=== PATIENT | male | born 1990 | race Caucasian/White ===

== ENCOUNTER 2021-05-11 06:59 | Emergency (ER) | payer MEDICAID, SELFPAY ==
[2021-05-11 07:13] VITALS: BP 157/86; PULSE 96; RESP 18; TEMP 36.6; O2SAT 100
[2021-05-11] MEDS: IBUPROFEN 400 MG TABLET 800 MG PO (07:43)
[2021-05-11] MEDS: TETANUS,DIPHTHERIA,AC PERTUSSIS ADULT 0.5 ML (ADACEL) IM (07:44)
[2021-05-11] MEDS: cefTRIAXone 1 GM VIAL IM (07:46)
[2021-05-11] MEDS: LIDOCAINE HCL 1% LOCAL INJ 20 ML VIAL (07:46)
--- NOTE | 2021-05-11 07:55 | ED.SKABFB ---
HPI - Skin/Abscess/Foreign Bdy General Chief complaint: Skin/Abscess/Foreign Body Stated complaint: right leg injury on calf Time Seen by Provider: 05/11/21 07:15 Source: patient, family and RN notes reviewed Mode of arrival: ambulatory Limitations: no limitations History of Present Illness complaint: insect bite/sting Onset (ago): week(s) (1) Tetanus up to date: unsure Location: RLE (upper paz draining firm red minimally swollen 2.8 cm diameter area. ) Severity: mild Severity scale (1-10): 2 Quality: aching and dull Pain Consistency: constant Relieving factors: none Exacerbating factors: none Context: none Associated symptoms: denies other symptoms Treatments prior to arrival: attempted to drain pus at home Related Data Allergies Allergy/AdvReac Type Severity Reaction Status Date / Time NKDA,NO LATEX Allergy Mild Unknown Uncoded 05/11/21 07:22 Review of Systems Review of Systems: All systems reviewed & are unremarkable except as noted in HPI and below Musculoskeletal: Comments: right paz painful, draining swelling PMFSH Past Medical History Medical History Cellulitis Exam Const: General: no acute distress and alert Nutritional Appearance: well nourished Orientation/consciousness: patient oriented x3 HENMT: Head: normal to inspection Ears: external ears normal and TM's normal bilaterally General nose exam: Normal external nose present and Normal nares present Face and sinus: normal facial exam Mouth: Yes lip normal and Yes moist mucous membranes Eyes: Conjunctivae: conjunctivae normal Pupils: Equal, round and reactive pupils present EOM: EOMs intact bilaterally Neck: Neck: normal visual inspection and no lymphadenopathy Chest: Chest palpation & inspection: normal inspection of the chest Resp: Effort & Inspection: normal respiratory effort Auscultation: clear to auscultation bilaterally Cardio: Rate: regular rate Rhythm: regular rhythm GI: GI Palp: Yes Soft to palpation and No Tenderness to palpation present (GI) Percussion: Yes normal to percussion Auscultation: normal bowel sounds : General: Yes no CVA tenderness Male General Exam: Yes normal external exam Back/Spine/Pelvis: Back: no CVA tenderness Skin: General skin exam: normal color Rashes: no rashes Neuro: General: patient oriented x3, moves all extremities, no meningeal signs, no focal motor deficits and CN's II-XI intact bilaterally Extrem: General: normal to inspection and no pedal edema (right paz: 2.8 cm diam firm reddish swelling with pus drainage ) Psych: Appearance: grossly normal and well kempt Mental Status: mental status grossly normal Thought content: Yes Normal thought content present Course Course Emergency Course: pt was stable in the ED with less right leg pain. the draining area was dressed. Pt for home. Reevaluation(s) Reevaluation #1: VSS. pt was less painful in the ED. Date: 05/11/21 Time: 08:15 Vital Signs Vital signs: Vital Signs Temperature 36.6 C 05/11/21 07:13 Pulse Rate 96 05/11/21 07:13 Respiratory Rate 18 05/11/21 07:13 Blood Pressure 157/86 H 05/11/21 07:13 Pulse Oximetry 100 05/11/21 07:13 Temperature 36.6 C 05/11/21 07:13 Pulse Rate 96 05/11/21 07:13 Respiratory Rate 18 05/11/21 07:13 Blood Pressure 157/86 H 05/11/21 07:13 Pulse Oximetry 100 05/11/21 07:13 MDM - Skin/Abscess/Foreign Bdy Differential Diagnosis Differential diagnosis: Likely abscess of skin or subcutaneous tissue, urticaria, cellulitis and insect bites Medical Records Attestation: I reviewed the patient's medical records. Critical Care Time Critical Care Time Critical Care Time: No Total Critical Care Time: 0 Discharge Plan Discharge Clinical Impression: Cellulitis Qualifiers: Site of cellulitis: extremity Site of cellulitis of extremity: lower extremity Laterality: right Qualified Code(s): L03.115 - Cellulitis of rig
--- NOTE | 2021-05-11 07:58 | PC.NURSE ---
Wound cleansed with hib-i-clens, and normal saline. Pt tolerated well. Adaptic dressing applied with 4x4 and gauze roll over it.
== END 2021-05-11 08:03 | disposition home or self-care (01) ==
PROVIDERS: Emergency Provider Emergency Medicine
DX: L03.115 Cellulitis of right lower limb (principal)
CPT/HCPCS: 90471; 90715; 96372; 99283; A9270; J0696

== ENCOUNTER 2021-11-14 06:28 | Emergency (ER) | payer OTHER, SELFPAY ==
--- NOTE | ~2021-11-14 | CT_ITS ---
EXAMINATION: CT abdomen pelvis w con DATE: 11/14/2021 09:13 INDICATION: Generalized abdominal pain, cramping. Constipation followed by diarrhea after taking 6 la xatives. TECHNIQUE: Computed tomography (CT) of the abdomen and pelvis was performed with 100 CC Omnipaque 350 intravenous contrast. Automated exposure control and iterative reconstruction technique were employe d. Exam dose: 361.91 mGy-cm total exam DLP. COMPARISON: 09/22/2015 left hip FINDINGS: The lung bases are clear. Normal heart size. No pericardial or pleural effusion. Approximately 6 mm hypoattenuating lesion of the right hepatic lobe lateral to the gallbladder is too small to definitively characterize 5.8 mm hypoattenuation of the anterior aspect of the medial segment of the left hepatic lobe is likew ise too small to definitively characterize, possibly a small cyst, hemangioma or focal fat infiltrati on. The liver is otherwise unremarkable. The gallbladder appears normal. No bile duct or pancreatic duct dilatation. No pancreatic mass lesion or calcification. Normal splenic size. Normal morphology of the adrenal glands. No renal mass lesion or urinary tract calculus or hydroureteronephrosis. Normal caliber of the abdominal aorta. There is portal adenopathy, aortocaval, pericaval and periaortic lymphadenopathy and bilateral common and external iliac pete chain lymphadenopathy and left inguinal adenopathy. Differential diagnosis includes metastatic disease and lymphoma. Normal appendix. No bowel obstruction, bowel wall thickening, pneumatosis or intraperitoneal free air . There is moderate diffuse thickening of the urinary bladder wall. There multiple areas of mixed sclerotic and lytic change, including the right iliac crest, posteromed ial right iliac bone, with minimal involvement of the left iliac crest and more prominent involvement of the left inferior pubic ramus. IMPRESSION: Extensive adenopathy including portal region and particularly the periaortic, aortocaval , pericaval and bilateral common and external iliac pete chains and left inguinal area; differential diagnosis includes metastatic disease and lymphoma; consider testicular cancer. Patchy scattered areas of mixed sclerotic and lytic change of the iliac bones and left inferior pubic ramus; metastatic disease is suggested. Consider radionuclide bone scan. On 11/14/[address] Blanco telephoned the CT findings to emergency room physician Dr. Alvarado . Reviewed, dictated and finalized at [facility]. Reviewed, dictated and finalized at location [facility]. IMPRESSION: Extensive adenopathy including portal region and particularly the periaortic, aortocaval, pericaval and bilateral common and external iliac pete chains and left inguinal area; differential diagnosis includes metastatic dise ase and lymphoma; consider testicular cancer. Patchy scattered areas of mixed sclerotic and lytic change of the iliac bones a nd left inferior pubic ramus; metastatic disease is suggested. Consider radionu clide bone scan. On 11/14/[address] Blanco telephoned the CT findings to emergency melanie physician Dr. Alvarado.
--- NOTE | ~2021-11-14 | XR_ITS ---
EXAMINATION: XR chest 1V portable DATE: 11/14/2021 09:00 INDICATION: Leukocytosis TECHNIQUE: frontal view of the chest was obtained. COMPARISON: Chest radiograph dated 02/23/2008 FINDINGS: The lungs remain clear with no focal airspace opacities, pulmonary edema, pleural effusion or pneumot horax. The cardiomediastinal silhouette is normal. Old healed posterior right sixth and seventh rib f ractures new since the prior study. IMPRESSION: 1. No acute cardiopulmonary disease. Reviewed, dictated and finalized at location [facility].
[2021-11-14 06:35] VITALS: BP 128/73; PULSE 88; RESP 18; TEMP 36.4; O2SAT 100
[2021-11-14] MEDS: PANTOPRAZOLE SODIUM IV 40 MG VIAL IV PUSH (08:11)
[2021-11-14] MEDS: ONDANSETRON INJ 4 MG/2 ML VIAL IV PUSH (08:11)
[2021-11-14 08:12] LABS: Hematocrit 31.8 % (40.0-54.0); Hemoglobin 9.8 g/dL (14.0-18.0); Mean Corpuscular HGB Conc 30.8 g/dL (32.0-36.0); Mean Corpuscular Hemoglobin 23.4 pg (27.0-31.0); Mean Corpuscular Volume 76.1 fL (78.0-102.0); Mean Platelet Volume 9.6 fl (8.7-11.0); Platelet Count Result 444 K/mm3 (150-420); Red Blood Count 4.18 M/mm3 (4.70-6.10)
[2021-11-14] MEDS: SODIUM CHLORIDE 0.9% IV 1,000 ML 999 ML IV CONT (08:12)
[2021-11-14 08:13] LABS: Add Urine Microscopic? YES; Appearance Urine Clear (Clear); Bilirubin Urine 1+ (Negative); Blood Urine Negative (Negative); Color Urine Dark Yellow (Yellow); Glucose Urine UA Negative (Negative); Ketones Urine 2+ (Negative); Leukocyte Esterase Ur Negative LEU/UL (Negative); Nitrate Urine Negative (Negative); Protein Urine 1+ (Negative); Specific Grav Ur 1.025 (1.010-1.020)
[2021-11-14 08:18] LABS: White Blood Count 22.6 K/mm3 (4.8-10.8)
[2021-11-14 08:23] LABS: Albumin Level 2.3 g/dL (3.4-5.0); Alkaline Phosphatase 189 U/L (46-116); Anion Gap 6 mmol/L (8-16); Aspartate Amino Transferase 16 U/L (15-37); Bilirubin,Total 0.6 mg/dL (0.00-1.00); Blood Urea Nitrogen 14 mg/dL (7-18); Calcium 8.5 mg/dL (8.5-10.1); Carbon Dioxide 29 mmol/L (21-32); Chloride 97 mmol/L (98-108); Estimated CRCL calculation 102 ml/min; Estimated Glomerular Filt Rate > 60; Glucose 89 mg/dL (70-99); Lipase 34 U/L (73-393); Osmolality Calculated 273 mOsm/kg (285-295); Sodium 132 mmol/L (136-145); Total Protein 8.1 g/dL (6.4-8.2)
[2021-11-14 08:25] LABS: Ethanol < 3 mg/dL (0-6); Lactic Acid Reflex 0.7 mmol/L (0.4-2.0)
[2021-11-14 08:31] LABS: Bacteria Urine Trace /hpf; Oval Fat Bodies Urine MOD /lpf; RBC Urine None seen /hpf (0-2); Squamous Epithelial Cell Urine Few /hpf (Few); WBC Urine None seen /hpf (0-3)
[2021-11-14 08:35] LABS: Amphetamine Screen Urine Positive (Negative); Barbiturate Screen Urine Negative (Negative); Benzodiazepines Screen Urine Negative (Negative); Cannabinoid Screen Urine Positive (Negative); Cocaine Screen Urine Negative (Negative); Methadone Screen Urine Negative (Negative); Opiate Screen Urine Positive (Negative); Phencyclidine Screen Urine Negative (Negative)
[2021-11-14 08:35] LABS: Alanine Aminotransferase 7 U/L (16-63)
[2021-11-14 08:53] LABS: Band Neutrophils Percent 2 % (0-6); Basophils Percent Manual 0 % (0-1); Eosinophils Absolute Manual 0.22 K/mm3 (0.02-0.5); Eosinophils Percent Manual 1 % (1-6); Lymphocytes Absolute Manual 0.67 K/mm3 (1.1-4.5); Lymphocytes Percent Manual 3 % (18-44); Monocytes Absolute Manual 1.58 K/mm3 (0.1-0.90); Monocytes Percent Manual 7 % (3-9); Neutrophils Absolute Manual 20.11 K/mm3 (1.3-6.7); Neutrophils Percent Manual 87 % (46-73); Total Cells Counted 100
[2021-11-14 08:54] LABS: Platelet Estimate Adequate (Adequate)
[2021-11-14] MEDS: KETOROLAC 30 MG/ML VIAL (*BKC) IM (08:59)
--- NOTE | 2021-11-14 12:22 | ED.ABDPAIN ---
HPI - Abdominal Pain General Chief Complaint: Abdominal Pain Stated Complaint: ABD PAIN Time Seen by Provider: 11/14/21 07:05 Source: patient and RN notes reviewed Mode of arrival: ambulatory Limitations: no limitations History of Present Illness MD elicited complaint: abdominal pain Onset (ago): hour(s) (6) Location: periumbilical Severity: mild Pain scale (0-10): 4 Migration to: no migration Exacerbating factors: nothing Relieving factors: nothing Associated symptoms: nausea and vomiting Related Data Allergies Allergy/AdvReac Type Severity Reaction Status Date / Time NKDA,NO LATEX Allergy Mild Unknown Uncoded 11/17/21 09:31 Review of Systems Review of Systems: All systems reviewed & are unremarkable except as noted in HPI and below PMFSH Past Medical History Medical History Abdominal pain ADHD Cellulitis Surgical History Surgical History H/O adenoidectomy H/O hernia repair Family History Family History Mother Non-Hodgkin lymphoma Depression Social History Social History Smoking status: Current every day smoker Tobacco type: cigarettes Alcohol intake: never Substance use: current Substance use type: marijuana, amphetamines and methamphetamine Living arrangements: with family Occupation/Education: unemployed Gender identity (if verbalized by the patient): Male Exam Const: General: healthy appearing and no acute distress Nutritional Appearance: well nourished Orientation/consciousness: patient oriented x3 Limitations: no limitations HENMT: Head: normal to inspection Ears: external ears normal, TM's normal bilaterally and EAC's normal General nose exam: Normal external nose present and Normal nares present Face and sinus: normal facial exam and sinuses nontender Mouth: Yes Normal oral and palatal mucosa present and Yes moist mucous membranes Teeth and gingiva: dentition normal Throat: posterior oropharynx normal Eyes: Conjunctivae: conjunctivae normal Pupils: Equal, round and reactive pupils present EOM: EOMs intact bilaterally Neck: Neck: normal visual inspection, no lymphadenopathy and no meningeal signs Chest: Chest palpation & inspection: normal inspection of the chest Resp: Effort & Inspection: normal respiratory effort Auscultation: clear to auscultation bilaterally Cardio: Rate: regular rate Rhythm: regular rhythm GI: GI Palp: Yes Soft to palpation and Yes Tenderness to palpation present (GI) (mild generalized abdominal tenderness) Auscultation: normal bowel sounds : General: Yes bladder normal to palpation and Yes no CVA tenderness Back/Spine/Pelvis: Back: no CVA tenderness Skin: General skin exam: normal color Rashes: no rashes Wounds: no wounds Neuro: General: patient oriented x3, moves all extremities, no meningeal signs, no focal motor deficits and CN's II-XI intact bilaterally Cranial nerves: Yes Equal, round and reactive pupils present and Yes Nystagmus not present Speech: normal speech Gait exam (Neuro): Normal gait present Extrem: General: normal to inspection and no pedal edema Psych: Mental Status: mental status grossly normal Affect: normal affect Attitude: cooperative Course Course Emergency Course: Pt was stable in the ED, less pain-ful. Reevaluation(s) Reevaluation #1: VSS Date: 11/14/21 Time: 08:03 Vital Signs Vital signs: Vital Signs Temperature 36.4 C L 11/14/21 06:35 Pulse Rate 88 11/14/21 06:35 Respiratory Rate 18 11/14/21 06:35 Blood Pressure 128/73 11/14/21 06:35 Pulse Oximetry 100 11/14/21 06:35 Oxygen Delivery Room Air 11/14/21 06:35 Temperature 36.4 C L 11/14/21 06:35 Pulse Rate 85 11/14/21 13:11 Respiratory Rate 18 11/14/21 13:11 Blood Pressure 133/74
[2021-11-14] MEDS: POTASSIUM CHLORIDE 20 MEQ TABLET 60 MEQ PO (13:08)
[2021-11-14 13:11] VITALS: BP 133/74; PULSE 85; RESP 18
== END 2021-11-14 13:11 | disposition home or self-care (01) ==
PROVIDERS: Emergency Medicine; Emergency Provider Emergency Medicine
DX: K52.9 Noninfective gastroenteritis and colitis, unspecified (principal); C79.9 Secondary malignant neoplasm of unspecified site
CPT/HCPCS: 36415; 71045; 74177; 80053; 80307; 81001; 83605; 83690; 85025; 87040; 87081; 87880; 96361; 96365; 96372; 96375; 99284; A9270; C9113; J0696; J1885; J2405; J7030; Q9967

== ENCOUNTER 2022-01-22 18:14 | Outpatient (CLI) | payer OTHER, SELFPAY ==
[2022-01-22 18:37] LABS: Basophils Absolute Auto 0.05 K/mm3 (0.00-0.10); Basophils Percent Auto 0.3 % (0.0-1.0); Eosinophils Absolute Auto 0.22 K/mm3 (0.02-0.50); Eosinophils Percent Auto 1.3 % (1.0-6.0); Hematocrit 35.2 % (40.0-54.0); Hemoglobin 10.8 g/dL (14.0-18.0); Immature Granulocyte Absolute 0.12 K/mm3 (0.00-0.00); Immature Granulocyte Percent A 0.7 % (0.0-0.0); Immature Platelet Fraction Pct 1.1 % (1.0-7.0); Lymphocytes Absolute Auto 0.78 K/mm3 (1.10-4.50); Lymphocytes Percent Auto 4.5 % (18.0-42.0); Mean Corpuscular HGB Conc 30.7 g/dL (32.0-36.0); Mean Corpuscular Hemoglobin 23.5 pg (27.0-31.0); Mean Corpuscular Volume 76.5 fL (78.0-102.0); Mean Platelet Volume 8.9 fl (8.7-11.0); Monocytes Absolute Auto 1.46 K/mm3 (0.10-0.90); Monocytes Percent Auto 8.5 % (2.0-11.0); Neutrophils Absolute Auto 14.6 K/mm3 (1.7-7.2); Neutrophils Percent Auto 84.7 % (50.0-70.0); Platelet Count Result 650 K/mm3 (150-420); Red Cell Distribution Width 15.9 % (11.6-14.4); White Blood Count 17.3 K/mm3 (4.8-10.8)
[2022-01-22 19:17] LABS: Alanine Aminotransferase 7 U/L (16-63); Albumin Level 2.5 g/dL (3.4-5.0); Alkaline Phosphatase 187 U/L (46-116); Anion Gap 10 mmol/L (8-16); Aspartate Amino Transferase 18 U/L (15-37); Bilirubin,Total 0.3 mg/dL (0.00-1.00); Blood Urea Nitrogen 15 mg/dL (7-18); Calcium 9.2 mg/dL (8.5-10.1); Carbon Dioxide 28 mmol/L (21-32); Chloride 97 mmol/L (98-108); Estimated Glomerular Filt Rate > 60; Glucose 113 mg/dL (70-99); Lactate Dehydrogenase 301 U/L (85-227); Osmolality Calculated 281 mOsm/kg (285-295); Potassium 4.1 mmol/L (3.5-5.1); Sodium 135 mmol/L (136-145); Total Protein 8.5 g/dL (6.4-8.2)
[2022-01-22 19:59] LABS: HIV 1 P24 AG Negative (Negative); HIV 1/2 AB Negative (Negative)
[2022-01-28 04:59] LABS: Hepatitis A Antibody IgM Nonreactive; Hepatitis B Core Antibody Nonreactive (Nonreactive); Hepatitis B Surface Antigen Nonreactive (Nonreactive); Hepatitis C Signal to Cutoff 0.05 ratio (<1.00); Hepatitis C Virus Antibody Nonreactive (Nonreactive)
[2022-01-28 17:13] LABS: EBV Nuclear Ab Antibody >600.00 U/mL (<18.00); EBV Nuclear Ab Interpretation Past; EBV Virus Capsid Ag IgM Ab <36.00 U/mL (<36.00)
== END 2022-01-22 18:15 | disposition home or self-care (01) ==
LOC: CHSLAB 18:16
PROVIDERS: PCP Internal Medicine Hematology & Oncology; Visit Provider Internal Medicine Hematology & Oncology
DX: R59.1 Generalized enlarged lymph nodes (principal)
CPT/HCPCS: 36415; 80053; 80074; 83615; 85025; 85055; 86664; 86665; 86703

== ENCOUNTER 2022-02-24 08:21 | Outpatient (CLI) | payer OTHER, SELFPAY ==
--- NOTE | ~2022-02-24 | CT_ITS ---
EXAMINATION: CT diagnostic chest w con DATE: 02/24/2022 08:41 INDICATION: Hodgkin's lymphoma TECHNIQUE: Transaxial computed tomographic images of the chest were obtained after the administration of 75 cc of Omnipaque 350 intravenous contrast. The dose-length product (DLP) was 151.14 mGy-cm. Ite rative reconstruction was used. COMPARISON: None FINDINGS: There are pathologically enlarged bilateral axillary, anterior mediastinal, subcarinal, and bilateral hilar lymph nodes. A group of matted lymph nodes in the anterior mediastinum measures 5.9 x 2.9 cm. There are minimal airspace opacities of the left upper lobe. No pleural effusion or pneumot horax. The heart size is normal. There is a moderate-sized pericardial effusion. Upper abdominal lymp hadenopathy is noted. The visualized osseous structures are unremarkable. IMPRESSION: 1. Thoracic and upper abdominal lymphadenopathy, consistent with lymphoma. 2. Airspace opacities of the left upper lobe, consistent with pneumonia. Reviewed, dictated and finalized at location D.
--- NOTE | 2022-03-04 12:57 | WPDPFTINT ---
PFT Procedure Performed PFT Procedure Performed Spirometry with Pre/Post Bronchodilator Plethysmography (Lung Vol) Diffusing Cap (DLCO) Flow Vol Loop PFT Interpretation DOS: 02/27/2022 REQUESTING: Dr Ashford REASON FOR TESTING: Hodgkin disease PULMONARY FUNCTION TESTS Results are reliable and reproducible. Spirometry: Pre bronchodilator FEV1 is 2.78 L, 77% predicted. Pre bronchodilator FVC is 4.21 L, 94% predicted. The FEV1/FVC ratio is 66%. The FYB40-53% is decreased 1.64 L, 41% predicted. After bronchodilator administration, there was a 13% increase in the FEV1, and the FEV1 is 3.15 L. This is a greater than 200 ml increase. The LMB69-68 increases by 50% which is significant. Lung volumes: Total lung capacity is 93% predicted, 5.66 L. Residual volume is 90% predicted, 1.48 L. RV/TLC is 26%, normal. FRC is 3.02 L, 94% predicted. Airway resistance elevated to 185% predicted. Diffusion: DLCO is 79% predicted, 21.6 mL/min/mmHg. DLCO/VA corrects to normal, 90% predicted, 4.48 mL/min/mmHg. Flow volume loop: Mild scooping of expiratory limb. IMPRESSION: This pulmonary function study shows a mild obstructive ventilatory impairment which is severe in the small airways with good response to bronchodilator. Normal lung volumes and normal diffusion. Increased airway resistance. In the proper clinical setting, this study might be compatible with asthma. There are no prior studies for comparison. Floresita Bingham MD
== END 2022-02-24 08:22 | disposition home or self-care (01) ==
LOC: CHSIMG 08:22
PROVIDERS: PCP Internal Medicine Hematology & Oncology; Visit Provider Internal Medicine Hematology & Oncology
DX: C81.90 Hodgkin lymphoma, unspecified, unspecified site (principal)
CPT/HCPCS: 71260; Q9967

== ENCOUNTER 2022-02-27 10:27 | Outpatient (CLI) | payer OTHER, SELFPAY ==
--- NOTE | 2022-03-04 13:02 | PFT_ITS ---
This report was recreated on March 19, 2022. Original report was signed by Dr. Floresita Bingham on 03/04/22 130. PFT Procedure Performed PFT Procedure Performed Spirometry with Pre/Post Bronchodilator Plethysmography (Lung Vol) Diffusing Cap (DLCO) Flow Vol Loop PFT Interpretation DOS: 02/27/2022 REQUESTING: Dr Ashford REASON FOR TESTING: Hodgkin disease PULMONARY FUNCTION TESTS Results are reliable and reproducible. Spirometry: Pre bronchodilator FEV1 is 2.78 L, 77% predicted. Pre bronchodilator FVC is 4.21 L, 94% predicted. The FEV1/FVC ratio is 66%. The XEG26-37% is decreased 1.64 L, 41% predicted. After bronchodilator administration, there was a 13% increase in the FEV1, and the FEV1 is 3.15 L. This is a greater than 200 ml increase. The YCR93-73 increases by 50% which is significant. Lung volumes: Total lung capacity is 93% predicted, 5.66 L. Residual volume is 90% predicted, 1.48 L. RV/TLC is 26%, normal. FRC is 3.02 L, 94% predicted. Airway resistance elevated to 185% predicted. Diffusion: DLCO is 79% predicted, 21.6 mL/min/mmHg. DLCO/VA corrects to normal, 90% predicted, 4.48 mL/min/mmHg. Flow volume loop: Mild scooping of expiratory limb. IMPRESSION: This pulmonary function study shows a mild obstructive ventilatory impairment which is severe in the small airways with good response to bronchodilator. Normal lung volumes and normal diffusion. Increased airway resistance. In the proper clinical setting, this study might be compatible with asthma. There are no prior studies for comparison. Floresita Bingham MD This dictation may have been done utilizing a voice recognition system. Attempts have been made to correct errors. However, there may be uncorrected grammatical, spelling, and recognition errors present. Report Initialized date/time: Floresita Bingham MD 03/04/22 / 1302 Electronically signed by: Floresita Bingham MD 03/04/22 3509 [facility]
== END 2022-02-27 10:28 | disposition home or self-care (01) ==
LOC: CHSCARD 10:28
PROVIDERS: Visit Provider Internal Medicine Hematology & Oncology
DX: C81.90 Hodgkin lymphoma, unspecified, unspecified site (principal)
CPT/HCPCS: 94060; 94726; 94729

== ENCOUNTER 2022-03-02 10:52 | Outpatient (CLI) | payer OTHER, SELFPAY ==
--- NOTE | ~2022-03-02 | NM_ITS ---
EXAMINATION: NM muga DATE: 03/02/2022 INDICATION: Monitoring while receiving chemotherapy. COMPARISON: Chest CT 02/24/2022 TECHNIQUE: Stannous pyrophosphate was administered IV. After a waiting period, 29.9 mCi Tc-99m pertec hnetate was administered IV to radiolabel the red blood cells. Gated images of the heart were obtaine d in the best septal view.] FINDINGS: There is no regional wall motion abnormality or paradoxical motion of the left ventricle. The left ventricular ejection fraction measures 68%. IMPRESSION: 1. Normal left ventricular ejection fraction measuring 68%. Reviewed, dictated and finalized at location [facility].
[2022-03-02 11:13] LABS: Basophils Absolute Auto 0.03 K/mm3 (0.00-0.10); Basophils Percent Auto 0.3 % (0.0-1.0); Eosinophils Absolute Auto 0.21 K/mm3 (0.02-0.50); Eosinophils Percent Auto 1.8 % (1.0-6.0); Hematocrit 33.2 % (40.0-54.0); Hemoglobin 9.8 g/dL (14.0-18.0); Immature Granulocyte Absolute 0.05 K/mm3 (0.00-0.00); Immature Granulocyte Percent A 0.4 % (0.0-0.0); Immature Platelet Fraction Pct 1.6 % (1.0-7.0); Mean Corpuscular HGB Conc 29.5 g/dL (32.0-36.0); Mean Corpuscular Hemoglobin 22.1 pg (27.0-31.0); Mean Corpuscular Volume 74.9 fL (78.0-102.0); Mean Platelet Volume 8.7 fl (8.7-11.0); Monocytes Absolute Auto 1.32 K/mm3 (0.10-0.90); Monocytes Percent Auto 11.1 % (2.0-11.0); Neutrophils Absolute Auto 9.7 K/mm3 (1.7-7.2); Neutrophils Percent Auto 81.4 % (50.0-70.0); Platelet Count Result 690 K/mm3 (150-420); Red Blood Count 4.43 M/mm3 (4.70-6.10); White Blood Count 11.9 K/mm3 (4.8-10.8)
[2022-03-02 11:30] LABS: Alanine Aminotransferase 7 U/L (16-63); Albumin Level 2.8 g/dL (3.4-5.0); Alkaline Phosphatase 209 U/L (46-116); Anion Gap 8 mmol/L (8-16); Aspartate Amino Transferase 19 U/L (15-37); Bilirubin,Total 0.4 mg/dL (0.00-1.00); Blood Urea Nitrogen 27 mg/dL (7-18); Calcium 9.2 mg/dL (8.5-10.1); Carbon Dioxide 30 mmol/L (21-32); Chloride 101 mmol/L (98-108); Estimated Glomerular Filt Rate > 60; Glucose 89 mg/dL (70-99); Lactate Dehydrogenase 271 U/L (85-227); Osmolality Calculated 292 mOsm/kg (285-295); Potassium 3.4 mmol/L (3.5-5.1); Sodium 139 mmol/L (136-145); Total Protein 8.7 g/dL (6.4-8.2)
[2022-03-02 12:52] LABS: HIV 1 P24 AG Negative (Negative); HIV 1/2 AB Negative (Negative)
[2022-03-05 11:28] LABS: Hepatitis A Antibody IgM Nonreactive; Hepatitis B Core Antibody Nonreactive (Nonreactive); Hepatitis B Surface Antigen Nonreactive (Nonreactive); Hepatitis C Signal to Cutoff 0.14 ratio (<1.00); Hepatitis C Virus Antibody Nonreactive (Nonreactive)
[2022-03-05 17:03] LABS: EBV Nuclear Ab Interpretation Past; EBV Virus Capsid Ag IgM Ab <36.00 U/mL (<36.00)
== END 2022-03-02 10:53 | disposition home or self-care (01) ==
LOC: CHSIMG 10:56
PROVIDERS: Visit Provider Internal Medicine Hematology & Oncology
DX: R59.1 Generalized enlarged lymph nodes (principal); Z51.81 Encounter for therapeutic drug level monitoring
CPT/HCPCS: 36415; 78472; 80053; 80074; 83615; 85025; 85055; 86664; 86665; 86703; A9560

== ENCOUNTER 2022-04-24 09:07 | Outpatient (CLI) | payer OTHER, SELFPAY ==
[2022-04-24 09:32] LABS: Basophils Absolute Auto 0.01 K/mm3 (0.00-0.10); Basophils Percent Auto 0.1 % (0.0-1.0); Eosinophils Absolute Auto 0.13 K/mm3 (0.02-0.50); Eosinophils Percent Auto 1.4 % (1.0-6.0); Hematocrit 28.1 % (40.0-54.0); Hemoglobin 8.2 g/dL (14.0-18.0); Immature Granulocyte Absolute 0.13 K/mm3 (0.00-0.00); Immature Granulocyte Percent A 1.4 % (0.0-0.0); Lymphocytes Absolute Auto 0.54 K/mm3 (1.10-4.50); Lymphocytes Percent Auto 5.6 % (18.0-42.0); Mean Corpuscular HGB Conc 29.2 g/dL (32.0-36.0); Mean Corpuscular Hemoglobin 21.8 pg (27.0-31.0); Mean Corpuscular Volume 74.7 fL (78.0-102.0); Mean Platelet Volume 8.6 fl (8.7-11.0); Monocytes Absolute Auto 0.87 K/mm3 (0.10-0.90); Monocytes Percent Auto 9.1 % (2.0-11.0); Neutrophils Absolute Auto 7.9 K/mm3 (1.7-7.2); Neutrophils Percent Auto 82.4 % (50.0-70.0); Platelet Count Result 355 K/mm3 (150-420); Red Blood Count 3.76 M/mm3 (4.70-6.10); Red Cell Distribution Width 22.6 % (11.6-14.4); White Blood Count 9.6 K/mm3 (4.8-10.8)
[2022-04-24 09:40] VITALS: BP 135/89; PULSE 110; RESP 14; TEMP 36.9; O2SAT 96
[2022-04-24] MEDS: SODIUM CHLORIDE 0.9% IV 500 ML 10 ML IVPB (09:40)
[2022-04-24 09:41] VITALS: BMI 25.9
[2022-04-24 09:44] LABS: Alanine Aminotransferase 37 U/L (16-63); Albumin Level 2.1 g/dL (3.4-5.0); Alkaline Phosphatase 217 U/L (46-116); Anion Gap 8 mmol/L (8-16); Aspartate Amino Transferase 14 U/L (15-37); Bilirubin,Total 0.3 mg/dL (0.00-1.00); Blood Urea Nitrogen 16 mg/dL (7-18); Calcium 9.2 mg/dL (8.5-10.1); Carbon Dioxide 31 mmol/L (21-32); Chloride 98 mmol/L (98-108); Estimated CRCL calculation 86 ml/min; Estimated Glomerular Filt Rate > 60; Glucose 120 mg/dL (70-99); Osmolality Calculated 286 mOsm/kg (285-295); Potassium 3.7 mmol/L (3.5-5.1); Sodium 137 mmol/L (136-145); Total Protein 7.5 g/dL (6.4-8.2)
[2022-04-24] MEDS: diphenhydrAMINE HCl INJ 50 MG/ML VIAL 25 MG IV PUSH (10:00)
[2022-04-24] MEDS: FAMOTIDINE 20 MG/2 ML VIAL IV PUSH (10:02)
[2022-04-24] MEDS: ACETAMINOPHEN 325 MG TABLET 650 MG PO (10:06)
[2022-04-24] MEDS: DOXOrubicin HCL 50 MG/25 ML VIAL 46 MG IV PUSH (10:40)
[2022-04-24 12:05] VITALS: BP 128/85; PULSE 108; RESP 14; TEMP 36.8; O2SAT 98
[2022-04-24] MEDS: PEGFILGRASTIM (ONPRO KIT) 6 MG/0.6 ML SYRINGE SUB-Q (13:30)
[2022-04-24 13:46] VITALS: BP 130/86; PULSE 100; RESP 14; TEMP 36.6; O2SAT 97
--- NOTE | 2022-04-24 13:47 | PC.NURSE ---
Patient here for Chemo cycle 1 day ABVD regime. Education given. All concerns answered. Labs drawn/reviewed/ok'd. IV chemo regimen administered. SEE MAR. Tolerated well. Neulasta Onpro applied and education given. Safe exit of hospital.
[2022-04-24] MEDS: HEPARIN SODIUM LOCK FLUSH 500 UNITS/5 ML SYRINGE IV PUSH (13:51)
== END 2022-04-24 09:08 | disposition home or self-care (01) ==
PROVIDERS: PCP Nurse Practitioner Family; Visit Provider Internal Medicine Hematology & Oncology
DX: Z51.11 Encounter for antineoplastic chemotherapy (principal); C81.90 Hodgkin lymphoma, unspecified, unspecified site
CPT/HCPCS: 36415; 80053; 85025; 96365; 96367; 96372; 96375; 96409; 96411; 96413; 96417; A9270; J1100; J1200; J2405; J2506; J7040; J7060; J9000; J9040; J9130; J9360

== ENCOUNTER 2022-05-13 09:41 | Outpatient (CLI) | payer OTHER, SELFPAY ==
[2022-05-13 10:00] VITALS: BMI 26.2
[2022-05-13 10:00] LABS: Hematocrit 31.9 % (40.0-54.0); Hemoglobin 9.2 g/dL (14.0-18.0); Mean Corpuscular HGB Conc 28.8 g/dL (32.0-36.0); Mean Corpuscular Hemoglobin 22.6 pg (27.0-31.0); Mean Corpuscular Volume 78.4 fL (78.0-102.0); Mean Platelet Volume 8.5 fl (8.7-11.0); Platelet Count Result 389 K/mm3 (150-420); Red Blood Count 4.07 M/mm3 (4.70-6.10); Red Cell Distribution Width 22.9 % (11.6-14.4); White Blood Count 3.4 K/mm3 (4.8-10.8)
[2022-05-13 10:04] VITALS: BP 121/72; PULSE 64; RESP 14; TEMP 36.4; O2SAT 99
[2022-05-13 10:12] LABS: Alanine Aminotransferase 15 U/L (16-63); Albumin Level 3.1 g/dL (3.4-5.0); Alkaline Phosphatase 152 U/L (46-116); Anion Gap 6 mmol/L (8-16); Aspartate Amino Transferase 17 U/L (15-37); Bilirubin,Total 0.3 mg/dL (0.00-1.00); Blood Urea Nitrogen 9 mg/dL (7-18); Calcium 8.6 mg/dL (8.5-10.1); Carbon Dioxide 30 mmol/L (21-32); Chloride 104 mmol/L (98-108); Estimated CRCL calculation 92 ml/min; Estimated Glomerular Filt Rate > 60; Glucose 80 mg/dL (70-99); Osmolality Calculated 287 mOsm/kg (285-295); Potassium 4.2 mmol/L (3.5-5.1); Sodium 140 mmol/L (136-145); Total Protein 7.4 g/dL (6.4-8.2)
[2022-05-13 10:13] LABS: Band Neutrophils Percent 1 % (0-6); Eosinophils Absolute Manual 0.37 K/mm3 (0.02-0.5); Eosinophils Percent Manual 11 % (1-6); Lymphocytes Absolute Manual 0.51 K/mm3 (1.1-4.5); Lymphocytes Percent Manual 15 % (18-44); Monocytes Absolute Manual 0.91 K/mm3 (0.1-0.90); Monocytes Percent Manual 27 % (3-9); Neutrophils Absolute Manual 1.59 K/mm3 (1.3-6.7); Neutrophils Percent Manual 46 % (46-73); Platelet Estimate Adequate (Adequate); Total Cells Counted 100
[2022-05-13] MEDS: SODIUM CHLORIDE 0.9% IV 500 ML 10 ML IVPB (10:20)
[2022-05-13] MEDS: diphenhydrAMINE HCl INJ 50 MG/ML VIAL 25 MG IV PUSH (10:25)
[2022-05-13] MEDS: ACETAMINOPHEN 325 MG TABLET 650 MG PO (10:34)
[2022-05-13] MEDS: FAMOTIDINE 20 MG/2 ML VIAL IV PUSH (10:35)
[2022-05-13] MEDS: DOXOrubicin HCL 50 MG/25 ML VIAL 46 MG IV PUSH (11:10)
[2022-05-13] MEDS: PEGFILGRASTIM (ONPRO KIT) 6 MG/0.6 ML SYRINGE SUB-Q (13:29)
[2022-05-13] MEDS: HEPARIN SODIUM LOCK FLUSH 500 UNITS/5 ML SYRINGE IV PUSH (13:29)
[2022-05-13 13:31] VITALS: BP 117/64; PULSE 68; RESP 14; TEMP 36.6; O2SAT 99
--- NOTE | 2022-05-13 13:35 | PC.NURSE ---
Patient here for cycle 1 day 15 of ABVD chemo regimen. Education given. All concerns answered/ Reports did OK with cycle 1 day 1. Labs drawn,reviewed, and ok'd. Day 15 ABVD chemo regimen administered. SEE MAR. Tolerated well. Patient left safely with Neulasta Onpro on arm-understanding on usage and removal of. Will return 2021 at 1000 for cycle 2 day 1 of ABVD Chemo regimen.
== END 2022-05-13 09:42 | disposition home or self-care (01) ==
LOC: CHSTREATRM 09:42
PROVIDERS: PCP Nurse Practitioner Family; Visit Provider Internal Medicine Hematology & Oncology
DX: Z51.11 Encounter for antineoplastic chemotherapy (principal); C81.90 Hodgkin lymphoma, unspecified, unspecified site
CPT/HCPCS: 36415; 80053; 85025; 96367; 96372; 96375; 96411; 96413; 96417; A9270; J1100; J1200; J2405; J2506; J7040; J7060; J9000; J9040; J9130; J9360

== ENCOUNTER 2022-06-12 09:45 | Outpatient (CLI) | payer OTHER, SELFPAY ==
[2022-06-12 10:12] VITALS: BMI 25.6
[2022-06-12 10:13] VITALS: BP 130/71; PULSE 96; RESP 14; TEMP 36.6; O2SAT 97
[2022-06-12 10:13] LABS: Basophils Absolute Auto 0.02 K/mm3 (0.00-0.10); Basophils Percent Auto 0.2 % (0.0-1.0); Eosinophils Absolute Auto 0.07 K/mm3 (0.02-0.50); Eosinophils Percent Auto 0.8 % (1.0-6.0); Hematocrit 31.6 % (40.0-54.0); Hemoglobin 9.8 g/dL (14.0-18.0); Immature Granulocyte Absolute 0.04 K/mm3 (0.00-0.00); Immature Granulocyte Percent A 0.5 % (0.0-0.0); Lymphocytes Absolute Auto 0.62 K/mm3 (1.10-4.50); Lymphocytes Percent Auto 7.5 % (18.0-42.0); Mean Corpuscular Hemoglobin 23.4 pg (27.0-31.0); Mean Corpuscular Volume 75.4 fL (78.0-102.0); Mean Platelet Volume 8.2 fl (8.7-11.0); Monocytes Absolute Auto 0.92 K/mm3 (0.10-0.90); Monocytes Percent Auto 11.1 % (2.0-11.0); Neutrophils Absolute Auto 6.6 K/mm3 (1.7-7.2); Neutrophils Percent Auto 79.9 % (50.0-70.0); Platelet Count Result 430 K/mm3 (150-420); Red Blood Count 4.19 M/mm3 (4.70-6.10); Red Cell Distribution Width 17.5 % (11.6-14.4); White Blood Count 8.3 K/mm3 (4.8-10.8)
[2022-06-12] MEDS: SODIUM CHLORIDE 0.9% IV 500 ML 10 ML IVPB (10:30)
[2022-06-12 10:33] LABS: Alanine Aminotransferase 10 U/L (16-63); Albumin Level 2.7 g/dL (3.4-5.0); Alkaline Phosphatase 137 U/L (46-116); Anion Gap 9 mmol/L (8-16); Aspartate Amino Transferase 10 U/L (15-37); Bilirubin,Total 0.2 mg/dL (0.00-1.00); Blood Urea Nitrogen 13 mg/dL (7-18); Calcium 8.9 mg/dL (8.5-10.1); Carbon Dioxide 29 mmol/L (21-32); Chloride 102 mmol/L (98-108); Estimated CRCL calculation 92 ml/min; Estimated Glomerular Filt Rate > 60; Glucose 109 mg/dL (70-99); Osmolality Calculated 291 mOsm/kg (285-295); Potassium 3.7 mmol/L (3.5-5.1); Sodium 140 mmol/L (136-145)
[2022-06-12] MEDS: diphenhydrAMINE HCl INJ 50 MG/ML VIAL 25 MG IV PUSH (10:34)
[2022-06-12] MEDS: FAMOTIDINE 20 MG/2 ML VIAL IV PUSH (10:35)
[2022-06-12] MEDS: ACETAMINOPHEN 325 MG TABLET 650 MG (10:50)
[2022-06-12] MEDS: DOXOrubicin HCL 50 MG/25 ML VIAL 46 MG IV PUSH (11:05)
[2022-06-12 13:25] VITALS: BP 120/73; PULSE 89; RESP 14; TEMP 36.8; O2SAT 97
[2022-06-12] MEDS: HEPARIN SODIUM LOCK FLUSH 500 UNITS/5 ML SYRINGE IV PUSH (13:27)
[2022-06-12] MEDS: PEGFILGRASTIM (ONPRO KIT) 6 MG/0.6 ML SYRINGE SUB-Q (13:27)
--- NOTE | 2022-06-12 13:41 | PC.NURSE ---
Patient here Chemo regimen cycle 2 day 1. Education given. NO weight loss. Reports I'm doing good. . Labs drawn/reviewed/ok'd. IV Chemo regimen administered. See MAR. Tolerated well. Safe exit of hospital with girlfriend. Will return 2021 at 1000.
== END 2022-06-12 09:46 | disposition home or self-care (01) ==
LOC: CHSTREATRM 09:49
PROVIDERS: PCP Family Medicine; Visit Provider Internal Medicine Hematology & Oncology
DX: Z51.11 Encounter for antineoplastic chemotherapy (principal); C81.90 Hodgkin lymphoma, unspecified, unspecified site
CPT/HCPCS: 36415; 80053; 85025; 96367; 96372; 96375; 96411; 96413; 96417; A9270; J1100; J1200; J2405; J2506; J7040; J7060; J9000; J9040; J9130; J9360

== ENCOUNTER 2022-07-03 09:17 | Outpatient (CLI) | payer OTHER, SELFPAY ==
[2022-07-03 09:36] VITALS: BMI 25.6
[2022-07-03 09:36] LABS: Basophils Absolute Auto 0.02 K/mm3 (0.00-0.10); Basophils Percent Auto 0.3 % (0.0-1.0); Eosinophils Percent Auto 1.3 % (1.0-6.0); Hematocrit 32.3 % (40.0-54.0); Hemoglobin 9.9 g/dL (14.0-18.0); Immature Granulocyte Absolute 0.07 K/mm3 (0.00-0.00); Immature Granulocyte Percent A 0.9 % (0.0-0.0); Lymphocytes Absolute Auto 0.48 K/mm3 (1.10-4.50); Lymphocytes Percent Auto 6.1 % (18.0-42.0); Mean Corpuscular HGB Conc 30.7 g/dL (32.0-36.0); Mean Corpuscular Hemoglobin 23.7 pg (27.0-31.0); Mean Corpuscular Volume 77.3 fL (78.0-102.0); Mean Platelet Volume 8.1 fl (8.7-11.0); Monocytes Absolute Auto 1.07 K/mm3 (0.10-0.90); Monocytes Percent Auto 13.7 % (2.0-11.0); Neutrophils Absolute Auto 6.1 K/mm3 (1.7-7.2); Neutrophils Percent Auto 77.7 % (50.0-70.0); Platelet Count Result 386 K/mm3 (150-420); Red Blood Count 4.18 M/mm3 (4.70-6.10); Red Cell Distribution Width 16.2 % (11.6-14.4); White Blood Count 7.8 K/mm3 (4.8-10.8)
[2022-07-03 09:37] VITALS: BP 149/73; PULSE 92; RESP 16; TEMP 36.6; O2SAT 99
[2022-07-03 09:50] LABS: Alanine Aminotransferase 14 U/L (16-63); Albumin Level 2.7 g/dL (3.4-5.0); Alkaline Phosphatase 149 U/L (46-116); Anion Gap 6 mmol/L (8-16); Aspartate Amino Transferase 11 U/L (15-37); Bilirubin,Total 0.3 mg/dL (0.00-1.00); Blood Urea Nitrogen 17 mg/dL (7-18); Calcium 8.9 mg/dL (8.5-10.1); Carbon Dioxide 32 mmol/L (21-32); Chloride 101 mmol/L (98-108); Estimated CRCL calculation 82 ml/min; Estimated Glomerular Filt Rate > 60; Glucose 112 mg/dL (70-99); Osmolality Calculated 290 mOsm/kg (285-295); Sodium 139 mmol/L (136-145); Total Protein 7.8 g/dL (6.4-8.2)
[2022-07-03] MEDS: SODIUM CHLORIDE 0.9% IV 500 ML 10 ML IVPB (10:00)
[2022-07-03] MEDS: diphenhydrAMINE HCl INJ 50 MG/ML VIAL 25 MG IV PUSH (10:05)
[2022-07-03] MEDS: FAMOTIDINE 20 MG/2 ML VIAL IV PUSH (10:08)
[2022-07-03] MEDS: ACETAMINOPHEN 325 MG TABLET 650 MG PO (10:12)
[2022-07-03] MEDS: DOXOrubicin HCL 50 MG/25 ML VIAL 46 MG IV PUSH (10:39)
[2022-07-03] MEDS: HEPARIN SODIUM LOCK FLUSH 500 UNITS/5 ML SYRINGE IV PUSH (12:40)
[2022-07-03] MEDS: PEGFILGRASTIM (ONPRO KIT) 6 MG/0.6 ML SYRINGE SUB-Q (12:41)
--- NOTE | 2022-07-03 12:49 | PC.NURSE ---
Patient here for cycle 2 day 15 chemo regimen. Education given. All concerns answered. Labs were drawn and reviewed/ok'd. IV Chemo regimen administered. SEE MAR. Tolerated well. Will have scans at [facility] Jul 08, 2022. Dr. Ashford then will decide next plan of treatment. Safe exit of hospital ambulated with girlfriend and dtr.
[2022-07-03 12:52] VITALS: BP 126/74; PULSE 88; RESP 14; TEMP 36.6; O2SAT 98
== END 2022-07-03 09:18 | disposition home or self-care (01) ==
LOC: CHSTREATRM 09:18
PROVIDERS: PCP Family Medicine; Visit Provider Internal Medicine Hematology & Oncology
DX: Z51.11 Encounter for antineoplastic chemotherapy (principal); C81.90 Hodgkin lymphoma, unspecified, unspecified site
CPT/HCPCS: 36415; 80053; 85025; 96367; 96372; 96375; 96411; 96413; 96417; A9270; J1100; J1200; J2405; J2506; J7040; J7060; J9000; J9040; J9130; J9360

== ENCOUNTER 2022-07-11 14:15 | Emergency (ER) | payer OTHER, SELFPAY ==
--- NOTE | ~2022-07-11 | CT_ITS ---
EXAMINATION: CT abdomen pelvis w con DATE: 07/11/2022 16:18 INDICATION: LLQ RLQ abd pain TECHNIQUE: Computed tomography (CT) of the abdomen and pelvis was performed with 100 mL Omnipaque-350 intravenous contrast. Automated exposure control and iterative reconstruction technique were employe d. The dose-length product was 333.31 mGy-cm. COMPARISON: 11/14/2021, CT chest 02/24/2022. FINDINGS: Lower thorax: Small pericardial effusion. Liver: Mildly enlarged. Biliary/Gallbladder: Gallbladder is collapsed. No bile duct dilation. Pancreas: No mass or duct dilation. Spleen: Mildly enlarged. Adrenals:No mass. Kidneys: No mass, stone, or hydronephrosis. GI tract: No small or large bowel dilation. Normal appendix. Mesentery/Peritoneum: No ascites, mass, or free air. Retroperitoneum: Periaortic and pericaval, bilateral pelvic, and bilateral inguinal lymphadenopathy, overall decreased size of the lymph nodes since the prior study. Retroperitoneal inflammatory change and fluid. Pelvis: Pelvic organs are within normal limits. Soft Tissues: Soft tissues and body wall unremarkable. Bones: New permeative change in the L4 vertebral body, with moderate height loss in a somewhat split type fracture pattern, with 2 mm retropulsion of bone fragments. Innumerable new lytic bone lesions in the pelvis, proximal bilateral femurs, and spine. IMPRESSION: 1. Pathologic burst fracture of L4, with minimal, 2 mm retropulsion of bone fragments. 3. Worsening lytic disease in the spine and pelvis and bilateral proximal femurs. 4. Persistent but improved appearing periaortic, pelvic and inguinal lymphadenopathy. 5. Hepatosplenomegaly. Reviewed, dictated and finalized at location [facility]. OFF DRIVER IMPRESSION: 1. Pathologic burst fracture of L4, with minimal, 2 mm retropulsion of bone fra gments. 3. Worsening lytic disease in the spine and pelvis and bilateral proximal femur s. 4. Persistent but improved appearing periaortic, pelvic and inguinal lymphadeno justino. 5. Hepatosplenomegaly.
--- NOTE | 2022-07-11 14:16 | ED.ABDPAIN ---
HPI - Abdominal Pain General Chief Complaint: Abdominal Pain Stated Complaint: ambulance Time Seen by Provider: 07/11/22 14:16 Source: patient, EMS and RN notes reviewed Mode of arrival: EMS Limitations: no limitations History of Present Illness MD elicited complaint: abdominal pain Onset (ago): week(s) ( One week ago worse today) Pain Consistency: constant Location: pelvis Severity: severe Related Data Allergies Allergy/AdvReac Type Severity Reaction Status Date / Time NKDA,NO LATEX Allergy Mild Unknown Uncoded 07/11/22 14:24 [facility] Past Medical History Medical History (Updated 07/11/22 @ 17:24 by Dennis Hoyos MD) Abdominal pain ADHD Anxiety Cellulitis Widespread metastatic malignant neoplastic disease Surgical History Surgical History H/O adenoidectomy H/O hernia repair Family History Family History Mother Non-Hodgkin lymphoma Depression Social History Social History Smoking status: Current every day smoker Tobacco type: cigarettes Alcohol intake: never Substance use: current Substance use type: marijuana, amphetamines and methamphetamine Lack of Transportation: YES Lack of Food: Sometimes True Current Housing: I Have Housing Concerned About Future Housing: No Difficulty Paying Gas/Electric Bills: YES Difficulty Paying for Meds: YES Currently Unemployed: YES Education: High School Diploma/GED Difficulty w/ Childcare or Family Care: YES Gender identity (if verbalized by the patient): Male Course Vital Signs Vital signs: Vital Signs Temperature 36.9 C 07/11/22 14:21 Pulse Rate 92 07/11/22 14:21 Respiratory Rate 20 07/11/22 14:21 Blood Pressure 145/84 H 07/11/22 14:21 Pulse Oximetry 100 07/11/22 14:21 Oxygen Delivery Room Air 07/11/22 14:21 Temperature 36.9 C 07/11/22 17:26 Pulse Rate 80 07/11/22 17:26 Respiratory Rate 20 07/11/22 17:26 Blood Pressure 98/62 L 07/11/22 17:26 Pulse Oximetry 98 07/11/22 17:26 Oxygen Delivery Room Air 07/11/22 17:26 MDM - Abdominal Pain Differential Diagnosis Differential diagnosis: Likely abdominal pain, acute appendicitis, calculus of kidney, constipation and small bowel obstruction Lab Data Attestation: I reviewed the patient's lab results. 07/11/22 15:06 07/11/22 15:06 Labs: Lab Results 07/11/22 07/11/22 07/11/22 Range/Units 15:06 15:06 15:06 WBC 8.0 (4.8-10.8) K/mm3 RBC 3.79 L (4.70-6.10) M/mm3 Hgb 9.0 L (14.0-18.0) g/dL Hct 28.7 L (40.0-54.0) % MCV 75.7 L (78.0-102.0) fL MCH 23.7 L (27.0-31.0) pg MCHC 31.4 L (32.0-36.0) g/dL RDW 15.0 H (11.6-14.4) % Plt Count 434 H (150-420) K/mm3 MPV 9.2 (8.7-11.0) fl Immature Gran % (Auto) 1.0 H (0.0-0.0) % Neut % (Auto) 83.4 H (50.0-70.0) % Lymph % (Auto) 3.9 L (18.0-42.0) % Kingfisher % (Auto) 10.8 (2.0-11.0) % Eos % (Auto) 0.8 L (1.0-6.0) % Baso % (Auto) 0.1 (0.0-1.0) % Lymph # (Auto) 0.31 L (1.10-4.50) K/mm3 Kingfisher # (Auto) 0.86 (0.10-0.90) K/mm3 Eos # (Auto) 0.06 (0.02-0.50) K/mm3 Baso # (Auto) 0.01 (0.00-0.10) K/mm3 Abs Immat Gran (auto) 0.08 H (0.00-0.00) K/mm3 Absolute Neuts (auto) 6.7 (1.7-7.2) K/mm3 Absolute Nucleated RBC 0.00 (0.00-0.00) K/mm3 Nucleated RBC % 0.0 (0-0.0) % Sodium 133 L (136-145) mmol/L Potassium 3.5 (3.5-5.1) mmol/L Chloride 92 L (98-108) mmol/L Carbon Dioxide 36 H (21-32) mmol/L Anion Gap 5 L (8-16) mmol/L BUN 13 (7-18) mg/dL Creatinine 0.79 (0.70-1.30) mg/dL Estim Creat Clear Calc Not Reportable Estimated GFR > 60 (59 - ) Glucose 81 (70-99) mg/dL Calculated Osmolality 275 L (285-295) mOsm/kg Lactic Acid (0.4-2.0) mmol/L Calcium 8.8 (8.5-10.1) mg/d
[2022-07-11 14:21] VITALS: BP 145/84; PULSE 92; RESP 20; TEMP 36.9; O2SAT 100
[2022-07-11] MEDS: HYDROmorphone HCL INJ (*CRX) 2 MG/ML VIAL 1 MG IV PUSH (15:02)
[2022-07-11 15:12] LABS: Basophils Absolute Auto 0.01 K/mm3 (0.00-0.10); Basophils Percent Auto 0.1 % (0.0-1.0); Eosinophils Absolute Auto 0.06 K/mm3 (0.02-0.50); Eosinophils Percent Auto 0.8 % (1.0-6.0); Hematocrit 28.7 % (40.0-54.0); Immature Granulocyte Absolute 0.08 K/mm3 (0.00-0.00); Lymphocytes Absolute Auto 0.31 K/mm3 (1.10-4.50); Lymphocytes Percent Auto 3.9 % (18.0-42.0); Mean Corpuscular HGB Conc 31.4 g/dL (32.0-36.0); Mean Corpuscular Hemoglobin 23.7 pg (27.0-31.0); Mean Corpuscular Volume 75.7 fL (78.0-102.0); Mean Platelet Volume 9.2 fl (8.7-11.0); Monocytes Absolute Auto 0.86 K/mm3 (0.10-0.90); Monocytes Percent Auto 10.8 % (2.0-11.0); Neutrophils Absolute Auto 6.7 K/mm3 (1.7-7.2); Neutrophils Percent Auto 83.4 % (50.0-70.0); Platelet Count Result 434 K/mm3 (150-420); Red Blood Count 3.79 M/mm3 (4.70-6.10)
[2022-07-11 15:18] LABS: Appearance Urine Clear (Clear); Bilirubin Urine 1+ (Negative); Blood Urine Negative (Negative); Glucose Urine UA Negative (Negative); Ketones Urine Negative (Negative); Leukocyte Esterase Ur Negative LEU/UL (Negative); Nitrate Urine Negative (Negative); Protein Urine 1+ (Negative); Specific Grav Ur >= 1.030 (1.010-1.020); Urobilinogen Urine >=8.0 mg/dL (0.2-1.0)
[2022-07-11 15:24] LABS: Amphetamine Screen Urine Positive (Negative); Barbiturate Screen Urine Negative (Negative); Benzodiazepines Screen Urine Negative (Negative); Cannabinoid Screen Urine Positive (Negative); Cocaine Screen Urine Negative (Negative); Methadone Screen Urine Negative (Negative); Opiate Screen Urine Positive (Negative); Phencyclidine Screen Urine Negative (Negative)
[2022-07-11 15:27] LABS: Add Urine Microscopic? YES; Color Urine Dark Yellow (Yellow); Mucus Urine Few /lpf
[2022-07-11 15:32] LABS: Lactic Acid Reflex 0.5 mmol/L (0.4-2.0)
[2022-07-11 15:35] LABS: Alanine Aminotransferase 13 U/L (16-63); Albumin Level 2.4 g/dL (3.4-5.0); Alkaline Phosphatase 162 U/L (46-116); Anion Gap 5 mmol/L (8-16); Aspartate Amino Transferase 10 U/L (15-37); Bilirubin,Total 0.3 mg/dL (0.00-1.00); Blood Urea Nitrogen 13 mg/dL (7-18); Calcium 8.8 mg/dL (8.5-10.1); Carbon Dioxide 36 mmol/L (21-32); Chloride 92 mmol/L (98-108); Estimated Glomerular Filt Rate > 60; Glucose 81 mg/dL (70-99); Lipase 17 U/L (16-77); Osmolality Calculated 275 mOsm/kg (285-295); Potassium 3.5 mmol/L (3.5-5.1); Sodium 133 mmol/L (136-145); Total Protein 7.6 g/dL (6.4-8.2)
[2022-07-11 15:38] LABS: CRP 22.4 mg/dL (0.0-0.9)
[2022-07-11 17:26] VITALS: BP 98/62; PULSE 80; RESP 20; TEMP 36.9; O2SAT 98
--- NOTE | 2022-08-26 14:05 | ED.GENADULT ---
HPI - General Adult General Chief complaint: Abdominal Pain Stated complaint: ambulance Time Seen by Provider: 07/11/22 14:16 Source: patient, EMS and RN notes reviewed Mode of arrival: EMS Limitations: no limitations History of Present Illness HPI narrative: This is a 32-year-old male with metastatic Hodgkin's lymphoma, brought to the emergency department by EMS, complaining of bilateral hand and finger pain that has since resolved. The patient states that this morning, he woke and noted moderate to severe bilateral hand pain. The pain lasted approximately 30 to 45 minutes and resolved on its own. He states his mother freaked out and called EMS. He states he now has mild tingling and numbness in the bilateral first through third fingers but has no other pain. He denies recent trauma or manipulation of the neck. Related Data Home Medications Medication Instructions Recorded Confirmed duloxetine 60 mg capsule,delayed 60 mg PO DAILY 08/26/22 08/26/22 release hydrocodone 10 mg-acetaminophen 1 tablet PO Q4-8H PRN Pain, Severe 08/26/22 08/26/22 325 mg tablet Allergies Allergy/AdvReac Type Severity Reaction Status Date / Time NKDA,NO LATEX Allergy Mild Unknown Uncoded 07/11/22 14:24 Review of Systems Review of Systems: CONSTITUTIONAL: Denies fever, chills, or sweats. CARDIOVASCULAR: Denies chest pain, palpitations, or edema. RESPIRATORY: Denies cough or dyspnea. GASTROINTESTINAL: Denies abdominal pain, nausea, vomiting, or diarrhea. GENITOURINARY: Denies dysuria or hematuria. SKIN: Denies rash or itching. MUSCULOSKELETAL: Denies back pain, joint pain, or myalgia. NEUROLOGIC: Tingling and numbness of the bilateral first to third fingers, Denies headache, numbness, dizziness, or weakness. PSYCHIATRIC: Denies anxiety or depression. FORMERLY [facility], 1928–1983 Past Medical History Medical History Abdominal pain ADHD Anxiety Cellulitis Widespread metastatic malignant neoplastic disease Surgical History Surgical History H/O adenoidectomy H/O hernia repair Family History Family History Mother Non-Hodgkin lymphoma Depression Social History Social History Smoking status: Current every day smoker Tobacco type: cigarettes Alcohol intake: never Substance use: current Substance use type: marijuana, amphetamines and methamphetamine Lack of Transportation: YES Lack of Food: Sometimes True Current Housing: I Have Housing Concerned About Future Housing: No Difficulty Paying Gas/Electric Bills: YES Difficulty Paying for Meds: YES Currently Unemployed: YES Education: High School Diploma/GED Difficulty w/ Childcare or Family Care: YES Living arrangements: with family Occupation/Education: unemployed Gender identity (if verbalized by the patient): Male Exam Narrative: GENERAL: Well-developed, well-nourished, and in no acute distress. HEAD: Normocephalic, atraumatic. EYES: PERRLA and EOMI. NECK: Supple. No midline spine tenderness, crepitus or step-off to palpation. Full range of motion. No adenopathy or masses. No carotid bruits or JVD CHEST: Clear to auscultation. No respiratory distress. No wheezes rales or rhonchi HEART: Regular rate and rhythm. No murmur heard. Normal peripheral pulses. ABDOMEN: Soft, nontender, nondistended, normal active bowel sounds. EXTREMITIES: Normal range of motion. No edema. SKIN: Warm, dry, no rash. NEURO: No focal deficits. Strength 5/5 in all extremities, sensation intact bilaterally. alert and oriented x3. PSYCH: Normal mood and affect. Course Course Emergency Course: 17:20 - The patient is neurologically intact and his exam is not concerning for acute cervical spine injury or abnormality. Shared decision-making conversation had with the
== END 2022-07-11 17:33 | disposition home or self-care (01) ==
PROVIDERS: Emergency Provider Emergency Medicine; PCP Family Medicine
DX: C80.1 Malignant (primary) neoplasm, unspecified (principal); C79.9 Secondary malignant neoplasm of unspecified site; M84.48XA Pathological fracture, other site, initial encounter for fracture; F15.10 Other stimulant abuse, uncomplicated; F12.90 Cannabis use, unspecified, uncomplicated
CPT/HCPCS: 36415; 74177; 80053; 80307; 81001; 83605; 83690; 85025; 86140; 96374; 99284; J1170; Q9967

== ENCOUNTER 2022-08-26 13:41 | Emergency (ER) | payer OTHER, SELFPAY ==
[2022-08-26 13:47] VITALS: BP 139/81; PULSE 101; RESP 18; TEMP 37.1; O2SAT 96
[2022-08-26 14:11] LABS: Glucose Point of Care 84 mg/dl (65-105)
[2022-08-26] MEDS: GABAPENTIN 300 MG CAPSULE PO (14:24)
--- NOTE | 2022-08-26 14:35 | ED.GENADULT ---
HPI - General Adult General Chief complaint: Unspecified Stated complaint: Pain Time Seen by Provider: 08/26/22 13:46 History of Present Illness HPI narrative: This is a 32-year-old male with metastatic Hodgkin's lymphoma, brought to the emergency department by EMS, complaining of bilateral hand and finger pain that has since resolved. The patient states that this morning, he woke and noted moderate to severe bilateral hand pain. The pain lasted approximately 30 to 45 minutes and resolved on its own. He states his mother freaked out and called EMS. He states he now has mild tingling and numbness in the bilateral first through third fingers but has no other pain. He denies recent trauma or manipulation of the neck. Related Data Home Medications Medication Instructions Recorded Confirmed duloxetine 60 mg capsule,delayed 60 mg PO DAILY 08/26/22 08/26/22 release hydrocodone 10 mg-acetaminophen 1 tablet PO Q4-8H PRN Pain, Severe 08/26/22 08/26/22 325 mg tablet Allergies Allergy/AdvReac Type Severity Reaction Status Date / Time NKDA,NO LATEX Allergy Mild Unknown Uncoded 07/11/22 14:24 Review of Systems Review of Systems: CONSTITUTIONAL: Denies fever, chills, or sweats. CARDIOVASCULAR: Denies chest pain, palpitations, or edema. RESPIRATORY: Denies cough or dyspnea. GASTROINTESTINAL: Denies abdominal pain, nausea, vomiting, or diarrhea. GENITOURINARY: Denies dysuria or hematuria. SKIN: Denies rash or itching. MUSCULOSKELETAL: Denies back pain, joint pain, or myalgia. NEUROLOGIC: Tingling and numbness of the bilateral first to third fingers, Denies headache, numbness, dizziness, or weakness. PSYCHIATRIC: Denies anxiety or depression. [facility] Past Medical History Medical History Abdominal pain ADHD Anxiety Cellulitis Widespread metastatic malignant neoplastic disease Surgical History Surgical History H/O adenoidectomy H/O hernia repair Family History Family History Mother Non-Hodgkin lymphoma Depression Social History Social History Smoking status: Current every day smoker Tobacco type: cigarettes Alcohol intake: never Substance use: current Substance use type: marijuana, amphetamines and methamphetamine Lack of Transportation: YES Lack of Food: Sometimes True Current Housing: I Have Housing Concerned About Future Housing: No Difficulty Paying Gas/Electric Bills: YES Difficulty Paying for Meds: YES Currently Unemployed: YES Education: High School Diploma/GED Difficulty w/ Childcare or Family Care: YES Living arrangements: with family Occupation/Education: unemployed Gender identity (if verbalized by the patient): Male Exam Narrative: GENERAL: Well-developed, well-nourished, and in no acute distress. HEAD: Normocephalic, atraumatic. EYES: PERRLA and EOMI. NECK: Supple. No midline spine tenderness, crepitus or step-off to palpation. Full range of motion. No adenopathy or masses. No carotid bruits or JVD CHEST: Clear to auscultation. No respiratory distress. No wheezes rales or rhonchi HEART: Regular rate and rhythm. No murmur heard. Normal peripheral pulses. ABDOMEN: Soft, nontender, nondistended, normal active bowel sounds. EXTREMITIES: Normal range of motion. No edema. SKIN: Warm, dry, no rash. NEURO: No focal deficits. Strength 5/5 in all extremities, sensation intact bilaterally. alert and oriented x3. PSYCH: Normal mood and affect. Course Course Emergency Course: 14:35 - The patient is neurologically intact and his exam is not concerning for acute cervical spine injury or abnormality. Shared decision-making conversation had with the patient. I do not suspect the need for additional imaging at this time and the patient agrees, s
[2022-08-26 14:50] VITALS: BP 115/54; PULSE 100; RESP 20; TEMP 36.9; O2SAT 97
== END 2022-08-26 15:00 | disposition home or self-care (01) ==
PROVIDERS: Emergency Provider Preventive Medicine Aerospace Medicine; PCP Family Medicine
DX: M54.12 Radiculopathy, cervical region (principal); F90.9 Attention-deficit hyperactivity disorder, unspecified type; F41.9 Anxiety disorder, unspecified; F17.210 Nicotine dependence, cigarettes, uncomplicated; F12.90 Cannabis use, unspecified, uncomplicated; F15.90 Other stimulant use, unspecified, uncomplicated
CPT/HCPCS: 82948; 99282; A9270

== ENCOUNTER 2022-09-14 08:14 | Outpatient (CLI) | payer OTHER, SELFPAY ==
[2022-09-14] VITALS (10 sets, daily range): BP systolic 101–135; BP diastolic 59–70; PULSE 60–102; RESP 12–14; TEMP 36.5–36.6; O2SAT 97–98; BMI 26.2
[2022-09-14 08:40] LABS: Basophils Absolute Auto 0.01 K/mm3 (0.00-0.10); Basophils Percent Auto 0.2 % (0.0-1.0); Eosinophils Absolute Auto 0.24 K/mm3 (0.02-0.50); Eosinophils Percent Auto 3.9 % (1.0-6.0); Hematocrit 25.5 % (40.0-54.0); Hemoglobin 7.4 g/dL (14.0-18.0); Immature Granulocyte Absolute 0.03 K/mm3 (0.00-0.00); Immature Granulocyte Percent A 0.5 % (0.0-0.0); Lymphocytes Absolute Auto 0.33 K/mm3 (1.10-4.50); Lymphocytes Percent Auto 5.4 % (18.0-42.0); Mean Corpuscular Volume 72.2 fL (78.0-102.0); Monocytes Absolute Auto 0.79 K/mm3 (0.10-0.90); Monocytes Percent Auto 12.8 % (2.0-11.0); Neutrophils Absolute Auto 4.8 K/mm3 (1.7-7.2); Neutrophils Percent Auto 77.2 % (50.0-70.0); Platelet Count Result 331 K/mm3 (150-420); Red Blood Count 3.53 M/mm3 (4.70-6.10); Red Cell Distribution Width 18.4 % (11.6-14.4); White Blood Count 6.2 K/mm3 (4.8-10.8)
[2022-09-14 08:57] LABS: Alanine Aminotransferase 21 U/L (16-63); Albumin Level 2.4 g/dL (3.4-5.0); Alkaline Phosphatase 265 U/L (46-116); Anion Gap 6 mmol/L (8-16); Aspartate Amino Transferase 19 U/L (15-37); Bilirubin,Total 0.3 mg/dL (0.00-1.00); Blood Urea Nitrogen 15 mg/dL (7-18); Calcium 9.1 mg/dL (8.5-10.1); Carbon Dioxide 33 mmol/L (21-32); Chloride 99 mmol/L (98-108); Estimated CRCL calculation 91 ml/min; Estimated Glomerular Filt Rate > 60; Glucose 130 mg/dL (70-99); Osmolality Calculated 288 mOsm/kg (285-295); Sodium 138 mmol/L (136-145); Total Protein 7.9 g/dL (6.4-8.2)
[2022-09-14] MEDS: SODIUM CHLORIDE 0.9% IV 250 ML 10 ML IVPB ×2 (09:05→13:12)
[2022-09-14] MEDS: FAMOTIDINE 20 MG/2 ML VIAL IV PUSH (09:15)
[2022-09-14] MEDS: diphenhydrAMINE HCl INJ 50 MG/ML VIAL 25 MG IV PUSH (09:20)
[2022-09-14] MEDS: DOXOrubicin HCL 50 MG/25 ML VIAL 64 MG IV PUSH (09:59)
[2022-09-14] MEDS: FOSAPREPITANT DIMEGLUMINE 150 MG in SODIUM CHLORIDE 0.9% IV 250 ML 500 MG IVPB (10:40)
--- NOTE | 2022-09-14 12:08 | PC.NURSE ---
0820 Patient here for Cycle 1 day 1 of chemo BEACOPP regimen. Labs drawn in lab-reviewed. Hgb 7.4. Dr. Ashford notified. Dr. Salinas wants to go ahead with chemo today and give 1 unit of prbc's today or tomorrow. Education given and Calendar with scheduled of this Cycle 1 regimen. Voices understanding.
--- NOTE | 2022-09-14 12:10 | PC.NURSE ---
1208 Tolerated chemo regimen well. Sleeping through most of it. Waking up to eat lunch. Chemo continues.
[2022-09-14] MEDS: ACETAMINOPHEN 325 MG TABLET 650 MG PO (13:11)
--- NOTE | 2022-09-14 13:23 | PC.NURSE ---
1319 Chemo completed except Mesna x2 infusions 4 hour apart to reduce risk of hemorrhagic cystitis. Tolerated well. Will go ahead start 1 unit of PRBC's tranfusion instead of waiting until tomorrow. Blood permit signed and education on blood transfusion given with verbal understanding.
--- NOTE | 2022-09-14 13:37 | PC.NURSE ---
1319 Started blood transfusion at 100 ml/hr. 1334 NO s/sx of blood transfusion reaction noted or reported. Up infusion to 125 ml/hr.
--- NOTE | 2022-09-14 14:25 | PC.NURSE ---
late note Doxorubicin started at 0959 pushed slowly over 20 minutes stopped at 1019.
--- NOTE | 2022-09-14 14:28 | PC.NURSE ---
UP rate to Blood transfusion to 150 ml/hr. Will keep rate until finished.
--- NOTE | 2022-09-14 15:24 | PC.NURSE ---
1519 One unit of PRBC's transfused. Tolerated well. NS infusing.
[2022-09-14 16:35] LABS: Hematocrit 26.9 % (40.0-54.0); Hemoglobin 7.8 g/dL (14.0-18.0); Mean Corpuscular Hemoglobin 21.7 pg (27.0-31.0); Mean Corpuscular Volume 74.9 fL (78.0-102.0); Mean Platelet Volume 8.5 fl (8.7-11.0); Platelet Count Result 381 K/mm3 (150-420); Red Blood Count 3.59 M/mm3 (4.70-6.10); Red Cell Distribution Width 18.6 % (11.6-14.4); White Blood Count 8.9 K/mm3 (4.8-10.8)
--- NOTE | 2022-09-14 18:35 | PC.NURSE ---
1800 Patient resting. No complaints voiced. Awaiting last Mesna infusion prior to dc to home.
--- NOTE | 2022-09-14 19:08 | PC.NURSE ---
Patient tolerated chemo and blood transfusion well. Will return tomorrow for Day 2 of cycle 1 chemo regimen.
[2022-09-14] MEDS: HEPARIN SODIUM LOCK FLUSH 500 UNITS/5 ML SYRINGE IV PUSH (19:10)
== END 2022-09-14 08:15 | disposition home or self-care (01) ==
PROVIDERS: PCP Family Medicine; Visit Provider Internal Medicine Hematology & Oncology
DX: Z51.11 Encounter for antineoplastic chemotherapy (principal); C81.90 Hodgkin lymphoma, unspecified, unspecified site
CPT/HCPCS: 36415; 36430; 80053; 85025; 85027; 86850; 86900; 86901; 86920; 96366; 96367; 96375; 96413; 96417; A9270; J1100; J1200; J1453; J2405; J7030; J7040; J7050; J9000; J9070; J9181; J9209; P9016

== ENCOUNTER 2022-09-15 08:01 | Outpatient (CLI) | payer OTHER, SELFPAY ==
[2022-09-15 08:24] VITALS: BP 90/54; PULSE 63; RESP 20; TEMP 36.4; O2SAT 95
--- NOTE | 2022-09-15 08:25 | PC.NURSE ---
Pt to [facility]fusion [facility] amb per self. A&Ox3. Denies pain, N/V, SOB. States he feels great. Plan of care discussed. Patient has no questions or concerns. Oriented to room. Call farias in reach.
[2022-09-15] MEDS: diphenhydrAMINE HCl INJ 50 MG/ML VIAL 25 MG IV PUSH (08:53)
[2022-09-15] MEDS: FAMOTIDINE 20 MG/ISO 50 ML 20 MG/50 ML BAG 150 MG IVPB (08:54)
[2022-09-15] MEDS: HEPARIN SODIUM LOCK FLUSH 500 UNITS/5 ML SYRINGE IV PUSH (10:19)
--- NOTE | 2022-09-15 10:27 | PC.NURSE ---
All medications infused. Pt tolerated well. Has no complaints or concerns. Instructed to return tomorrow at 8am for next treatment. Pt voices understanding. Discharged to home amb per self.
== END 2022-09-15 08:02 | disposition home or self-care (01) ==
LOC: CHSTREATRM 08:03
PROVIDERS: PCP Family Medicine; Visit Provider Internal Medicine Hematology & Oncology
DX: Z51.11 Encounter for antineoplastic chemotherapy (principal); C81.90 Hodgkin lymphoma, unspecified, unspecified site
CPT/HCPCS: 96365; 96367; 96374; 96375; 96413; J1100; J1200; J2405; J7030; J9181

== ENCOUNTER 2022-09-16 07:47 | Outpatient (CLI) | payer OTHER, SELFPAY ==
[2022-09-16 08:04] VITALS: BP 135/69; PULSE 64; RESP 14; TEMP 36.4; O2SAT 98
[2022-09-16 08:05] VITALS: BMI 26.2
[2022-09-16] MEDS: SODIUM CHLORIDE 0.9% IV 250 ML 40 ML (08:10)
[2022-09-16] MEDS: FAMOTIDINE 20 MG/2 ML VIAL IV PUSH (08:15)
[2022-09-16] MEDS: diphenhydrAMINE HCl INJ 50 MG/ML VIAL 25 MG IV PUSH (08:20)
[2022-09-16] MEDS: HEPARIN SODIUM LOCK FLUSH 500 UNITS/5 ML SYRINGE IV PUSH (10:04)
--- NOTE | 2022-09-16 10:08 | PC.NURSE ---
Patient here for Chemo cycle 1 day 3 regimen. Re-education given and all concerns answered. Even spoke with mother, Blanche via phone and went over calendar and what meds to take etc. Patient only complaint is being tired. Day 3 chemo regimen administered. SEE MAR. Tolerated well. Will return on 09/21/22 for Cycle 1 day 8 regimen. Safe exit of hospital.
[2022-09-16 10:22] VITALS: BP 118/60; PULSE 64; RESP 14; TEMP 36.6; O2SAT 97
== END 2022-09-16 07:48 | disposition home or self-care (01) ==
LOC: CHSTREATRM 07:49
PROVIDERS: PCP Family Medicine; Visit Provider Internal Medicine Hematology & Oncology
DX: Z51.11 Encounter for antineoplastic chemotherapy (principal); C81.90 Hodgkin lymphoma, unspecified, unspecified site
CPT/HCPCS: 96367; 96375; 96413; J1100; J1200; J2405; J7030; J7050; J9181

== ENCOUNTER 2022-09-21 08:03 | Outpatient (CLI) | payer OTHER, SELFPAY ==
[2022-09-21 08:21] LABS: Hematocrit 27.7 % (40.0-54.0); Hemoglobin 8.1 g/dL (14.0-18.0); Mean Corpuscular HGB Conc 29.2 g/dL (32.0-36.0); Mean Corpuscular Hemoglobin 21.4 pg (27.0-31.0); Mean Corpuscular Volume 73.3 fL (78.0-102.0); Mean Platelet Volume 7.8 fl (8.7-11.0); Platelet Count Result 229 K/mm3 (150-420); Red Blood Count 3.78 M/mm3 (4.70-6.10); Red Cell Distribution Width 18.8 % (11.6-14.4); White Blood Count 2.4 K/mm3 (4.8-10.8)
[2022-09-21 08:26] VITALS: BP 122/65; PULSE 88; RESP 16; TEMP 36.4; O2SAT 99
[2022-09-21 08:27] VITALS: BMI 27.3
[2022-09-21 08:30] LABS: Band Neutrophils Percent 0 % (0-6); Eosinophils Absolute Manual 0.24 K/mm3 (0.02-0.5); Eosinophils Percent Manual 10 % (1-6); Lymphocytes Absolute Manual 0.14 K/mm3 (1.1-4.5); Lymphocytes Percent Manual 6 % (18-44); Monocytes Percent Manual 0 % (3-9); Neutrophils Absolute Manual 2.01 K/mm3 (1.3-6.7); Neutrophils Percent Manual 84 % (46-73); Platelet Estimate Adequate (Adequate); Total Cells Counted 100
[2022-09-21 08:36] LABS: Alanine Aminotransferase 19 U/L (16-63); Albumin Level 2.4 g/dL (3.4-5.0); Alkaline Phosphatase 148 U/L (46-116); Anion Gap 4 mmol/L (8-16); Aspartate Amino Transferase < 10 U/L (15-37); Bilirubin,Total 0.2 mg/dL (0.00-1.00); Blood Urea Nitrogen 26 mg/dL (7-18); Calcium 8.5 mg/dL (8.5-10.1); Carbon Dioxide 35 mmol/L (21-32); Chloride 103 mmol/L (98-108); Estimated CRCL calculation 114 ml/min; Estimated Glomerular Filt Rate > 60; Glucose 111 mg/dL (70-99); Osmolality Calculated 299 mOsm/kg (285-295); Potassium 3.5 mmol/L (3.5-5.1); Sodium 142 mmol/L (136-145); Total Protein 6.9 g/dL (6.4-8.2)
[2022-09-21] MEDS: SODIUM CHLORIDE 0.9% IV 250 ML 10 ML IVPB (09:00)
[2022-09-21] MEDS: diphenhydrAMINE HCl INJ 50 MG/ML VIAL 25 MG IV PUSH (09:05)
[2022-09-21] MEDS: ACETAMINOPHEN 325 MG TABLET 650 MG PO (09:22)
[2022-09-21] MEDS: vinCRIStine SULFATE (*CHEMO) 2 MG in SODIUM CHLORIDE 0.9% IV 50 ML 300 MG IVPB (10:36)
[2022-09-21] MEDS: HEPARIN SODIUM LOCK FLUSH 500 UNITS/5 ML SYRINGE IV PUSH (10:55)
[2022-09-21 10:57] VITALS: BP 126/70; PULSE 88; RESP 14; TEMP 36.6; O2SAT 98
--- NOTE | 2022-09-21 11:00 | PC.NURSE ---
Patient here for cycle 1 chemo day 8. Labs drawn/reviewed/ok'd for chemo. ANC 2016. Reports feeling tired all the time which is suspected. Only had 2 episodes of N/V. Has Zofran at home to take. Reports is following calendar and taking po meds like he suppose to at home. Zarxio injection meds came and reinstructed on given Subcutaneous injection. Day 8 chemo administered. SEE MAR. Tolerated well. Safe exit of hospital. Will return October 05 for Cycle 2 day 1.
== END 2022-09-21 08:04 | disposition home or self-care (01) ==
PROVIDERS: PCP Family Medicine; Visit Provider Internal Medicine Hematology & Oncology
DX: Z51.11 Encounter for antineoplastic chemotherapy (principal); C81.90 Hodgkin lymphoma, unspecified, unspecified site
CPT/HCPCS: 36415; 36592; 80053; 85025; 96375; 96411; 96413; A9270; J1200; J7050; J9040; J9370

== ENCOUNTER 2022-10-14 07:34 | Outpatient (CLI) | payer OTHER, SELFPAY ==
[2022-10-14 08:09] LABS: Basophils Absolute Auto 0.03 K/mm3 (0.00-0.10); Basophils Percent Auto 0.4 % (0.0-1.0); Eosinophils Absolute Auto 0.01 K/mm3 (0.02-0.50); Eosinophils Percent Auto 0.1 % (1.0-6.0); Hematocrit 25.3 % (40.0-54.0); Hemoglobin 7.8 g/dL (14.0-18.0); Immature Granulocyte Absolute 0.05 K/mm3 (0.00-0.00); Immature Granulocyte Percent A 0.7 % (0.0-0.0); Lymphocytes Absolute Auto 0.45 K/mm3 (1.10-4.50); Lymphocytes Percent Auto 6.4 % (18.0-42.0); Mean Corpuscular HGB Conc 30.8 g/dL (32.0-36.0); Mean Corpuscular Hemoglobin 23.6 pg (27.0-31.0); Mean Corpuscular Volume 76.7 fL (78.0-102.0); Mean Platelet Volume 8.9 fl (8.7-11.0); Monocytes Absolute Auto 0.86 K/mm3 (0.10-0.90); Monocytes Percent Auto 12.2 % (2.0-11.0); Neutrophils Absolute Auto 5.7 K/mm3 (1.7-7.2); Neutrophils Percent Auto 80.2 % (50.0-70.0); Platelet Count Result 253 K/mm3 (150-420); Red Cell Distribution Width 25.2 % (11.6-14.4); White Blood Count 7.1 K/mm3 (4.8-10.8)
[2022-10-14 08:11] VITALS: BMI 26.8
[2022-10-14 08:12] VITALS: BP 135/86; PULSE 80; RESP 16; TEMP 36.6; O2SAT 98
[2022-10-14 08:23] LABS: Alanine Aminotransferase 20 U/L (16-63); Albumin Level 2.7 g/dL (3.4-5.0); Alkaline Phosphatase 143 U/L (46-116); Anion Gap 4 mmol/L (8-16); Aspartate Amino Transferase 15 U/L (15-37); Bilirubin,Total 0.3 mg/dL (0.00-1.00); Blood Urea Nitrogen 10 mg/dL (7-18); Calcium 8.5 mg/dL (8.5-10.1); Carbon Dioxide 32 mmol/L (21-32); Chloride 104 mmol/L (98-108); Estimated CRCL calculation 108 ml/min; Estimated Glomerular Filt Rate > 60; Glucose 92 mg/dL (70-99); Osmolality Calculated 289 mOsm/kg (285-295); Potassium 3.9 mmol/L (3.5-5.1); Sodium 140 mmol/L (136-145); Total Protein 6.3 g/dL (6.4-8.2)
[2022-10-14] MEDS: diphenhydrAMINE HCl INJ 50 MG/ML VIAL 25 MG IV PUSH (08:38)
[2022-10-14] MEDS: FAMOTIDINE 20 MG/2 ML VIAL IV PUSH (08:38)
[2022-10-14] MEDS: SODIUM CHLORIDE 0.9% IV 250 ML 10 ML IVPB (08:39)
[2022-10-14] MEDS: FOSAPREPITANT DIMEGLUMINE 150 MG in SODIUM CHLORIDE 0.9% IV 250 ML 750 MG IVPB (09:15)
[2022-10-14] MEDS: DOXOrubicin HCL 50 MG/25 ML VIAL 64 MG IV PUSH (09:39)
[2022-10-14 18:04] VITALS: BP 143/80; PULSE 88; RESP 14; TEMP 36.2; O2SAT 97
--- NOTE | 2022-10-14 18:07 | PC.NURSE ---
Patient here today for cycle 2 day 1 of chemo regimen. Cycle 2 calendar given and educated on. All concerns voiced answered. Blood drawn/reviewed. Dr. Ashford ok'd to proceed after hgb 7.8 was called to him. Rest of labs unremarkable. Chemo regimen administered SEE SEP.
[2022-10-14] MEDS: HEPARIN SODIUM LOCK FLUSH 500 UNITS/5 ML SYRINGE IV PUSH (18:11)
--- NOTE | 2022-10-14 18:23 | PC.NURSE ---
Patient tolerated chemo regimen well today. Safe exit of hospital per ambulatory per self. Will return tomorrow for day 2.
== END 2022-10-14 07:35 | disposition home or self-care (01) ==
LOC: CHSTREATRM 07:35
PROVIDERS: PCP Family Medicine; Visit Provider Internal Medicine Hematology & Oncology
DX: Z51.11 Encounter for antineoplastic chemotherapy (principal); C81.90 Hodgkin lymphoma, unspecified, unspecified site
CPT/HCPCS: 36415; 36592; 80053; 85025; 96366; 96367; 96375; 96411; 96413; 96417; J1100; J1200; J1453; J2405; J7030; J7040; J7050; J9000; J9070; J9181; J9209

== ENCOUNTER 2022-10-15 08:01 | Outpatient (CLI) | payer OTHER, SELFPAY ==
[2022-10-15 08:05] VITALS: BMI 26.8
[2022-10-15 08:16] VITALS: BP 145/76; PULSE 88; RESP 14; TEMP 36.4; O2SAT 98
[2022-10-15] MEDS: SODIUM CHLORIDE 0.9% IV 250 ML 10 ML IVPB (08:20)
[2022-10-15] MEDS: diphenhydrAMINE HCl INJ 50 MG/ML VIAL 25 MG IV PUSH (08:23)
[2022-10-15] MEDS: FAMOTIDINE 20 MG/ISO 50 ML 20 MG/50 ML BAG 150 MG IVPB (08:24)
[2022-10-15 10:09] VITALS: BP 140/70; PULSE 88; RESP 14; TEMP 36.6; O2SAT 98
[2022-10-15] MEDS: HEPARIN SODIUM LOCK FLUSH 500 UNITS/5 ML SYRINGE IV PUSH (10:09)
--- NOTE | 2022-10-15 10:32 | PC.NURSE ---
Patient here for day 2 of chemo cycle 2 regimen. Reports slept well last night after day 1. No n/v. Just tired. Education given. Chemo day 2 regimen administered. SEE MAR. Tolerated well. Will return tomorrow for day 3 at 0800. Safe exit of hospital per self ambulatory to catch MCT romeo.
== END 2022-10-15 08:02 | disposition home or self-care (01) ==
LOC: CHSTREATRM 08:02
PROVIDERS: PCP Family Medicine; Visit Provider Internal Medicine Hematology & Oncology
DX: Z51.11 Encounter for antineoplastic chemotherapy (principal); C81.90 Hodgkin lymphoma, unspecified, unspecified site
CPT/HCPCS: 96367; 96375; 96413; J1100; J1200; J2405; J7030; J7050; J9181

== ENCOUNTER 2022-10-16 07:59 | Outpatient (CLI) | payer OTHER, SELFPAY ==
--- NOTE | 2022-10-16 08:05 | PC.NURSE ---
Pt to room 202 amb per self. A&Ox3. Has no questions or complaints. Oriented to room and plan of care. Call farias in reach. Reminded to call with needs.
[2022-10-16 08:13] VITALS: BMI 26.9
[2022-10-16 08:15] VITALS: BP 126/60; PULSE 61; RESP 20; TEMP 36; O2SAT 99
[2022-10-16] MEDS: SODIUM CHLORIDE 0.9% IV 250 ML 10 ML IVPB (08:31)
[2022-10-16] MEDS: diphenhydrAMINE HCl INJ 50 MG/ML VIAL 25 MG IV PUSH (08:32)
[2022-10-16] MEDS: FAMOTIDINE 20 MG/ISO 50 ML 20 MG/50 ML BAG 150 MG IVPB (08:33)
[2022-10-16] MEDS: HEPARIN SODIUM LOCK FLUSH 500 UNITS/5 ML SYRINGE IV PUSH (10:28)
--- NOTE | 2022-10-16 10:35 | PC.NURSE ---
All medications infused as ordered. Pt tolerated well. Has no questions or complaints. Discharged to home amb per self.
== END 2022-10-16 08:00 | disposition home or self-care (01) ==
LOC: CHSTREATRM 08:00
PROVIDERS: PCP Family Medicine; Visit Provider Internal Medicine Hematology & Oncology
DX: Z51.11 Encounter for antineoplastic chemotherapy (principal); C81.90 Hodgkin lymphoma, unspecified, unspecified site
CPT/HCPCS: 96365; 96366; 96367; 96374; 96375; 96413; J1200; J7030; J7050; J9181

== ENCOUNTER 2022-10-22 08:11 | Outpatient (CLI) | payer OTHER, SELFPAY ==
[2022-10-22] VITALS (8 sets, daily range): BP systolic 114–142; BP diastolic 58–84; PULSE 80–108; RESP 18–20; TEMP 36.1–36.6; O2SAT 97–100; BMI 26.6
--- NOTE | 2022-10-22 08:15 | PC.NURSE ---
Pt to room 202 amb per self. Has no question or complaints. Skin pale, A&Ox3. Oriented to room and plan of care. Call farias in reach. Reminded to call with needs.
[2022-10-22 08:36] LABS: Hematocrit 22.4 % (40.0-54.0); Immature Platelet Fraction Pct 2.3 % (1.0-7.0); Mean Corpuscular HGB Conc 30.8 g/dL (32.0-36.0); Mean Corpuscular Hemoglobin 23.5 pg (27.0-31.0); Mean Corpuscular Volume 76.2 fL (78.0-102.0); Platelet Count Result 61 K/mm3 (150-420); Red Blood Count 2.94 M/mm3 (4.70-6.10); Red Cell Distribution Width 22.9 % (11.6-14.4)
[2022-10-22 08:52] LABS: Hemoglobin 6.9 g/dL (14.0-18.0); White Blood Count 0.1 K/mm3 (4.8-10.8)
[2022-10-22 08:57] LABS: Alanine Aminotransferase 17 U/L (16-63); Albumin Level 2.9 g/dL (3.4-5.0); Alkaline Phosphatase 109 U/L (46-116); Anion Gap 7 mmol/L (8-16); Aspartate Amino Transferase 11 U/L (15-37); Bilirubin,Total 0.3 mg/dL (0.00-1.00); Blood Urea Nitrogen 20 mg/dL (7-18); Calcium 8.5 mg/dL (8.5-10.1); Carbon Dioxide 32 mmol/L (21-32); Chloride 100 mmol/L (98-108); Estimated Glomerular Filt Rate > 60; Glucose 139 mg/dL (70-99); Osmolality Calculated 292 mOsm/kg (285-295); Potassium 3.5 mmol/L (3.5-5.1); Sodium 139 mmol/L (136-145); Total Protein 6.6 g/dL (6.4-8.2)
[2022-10-22 09:21] LABS: Band Neutrophils Percent 0 % (0-6); Basophils Percent Manual 0 % (0-1); Eosinophils Absolute Manual 0.01 K/mm3 (0.02-0.5); Eosinophils Percent Manual 10 % (1-6); Lymphocytes Absolute Manual 0.03 K/mm3 (1.1-4.5); Lymphocytes Percent Manual 30 % (18-44); Metamyelocytes Percent 8 %; Monocytes Percent Manual 0 % (3-9); Myelocytes Percent 2 %; Neutrophils Absolute Manual 0.05 K/mm3 (1.3-6.7); Neutrophils Percent Manual 50 % (46-73); Total Cells Counted 100
[2022-10-22 09:22] LABS: Platelet Estimate Decreased (Adequate)
--- NOTE | 2022-10-22 09:37 | PC.NURSE ---
0900 Labs reviewed/ANC <50 , H/H 6.[address] Ashford notified. new orders Hold day 8 chemo of cycle 2 today. Transfuse 2 units PRBC's. (he will be sending T&C /tranfusion order. Day Chemo will be 10/28/22 Wed at 0800. Patient understands. Went over new chemo cycle 2 calendar with him.
[2022-10-22] MEDS: ACETAMINOPHEN 325 MG TABLET 650 MG PO (10:09)
[2022-10-22] MEDS: diphenhydrAMINE HCl CAP 25 MG CAPSULE PO (10:09)
[2022-10-22] MEDS: SODIUM CHLORIDE 0.9% IV 250 ML 10 ML IVPB (10:09)
[2022-10-22 13:14] LABS: Hematocrit 26.4 % (40.0-54.0); Hemoglobin 8.1 g/dL (14.0-18.0)
[2022-10-22] MEDS: HEPARIN SODIUM LOCK FLUSH 500 UNITS/5 ML SYRINGE (16:29)
[2022-10-22 16:32] LABS: Hemoglobin 8.5 g/dL (14.0-18.0)
== END 2022-10-22 08:12 | disposition home or self-care (01) ==
LOC: CHSTREATRM 08:12
PROVIDERS: PCP Family Medicine; Visit Provider Internal Medicine Hematology & Oncology
DX: C81.90 Hodgkin lymphoma, unspecified, unspecified site (principal)
CPT/HCPCS: 36415; 36430; 80053; 85014; 85018; 85025; 85055; 86850; 86900; 86901; 86920; 96365; A9270; J7050; P9016

== ENCOUNTER 2022-11-12 12:30 | Outpatient (CLI) | payer OTHER, SELFPAY ==
[2022-11-12 12:53] LABS: Hematocrit 33.1 % (40.0-54.0); Hemoglobin 10.2 g/dL (14.0-18.0); Mean Corpuscular HGB Conc 30.8 g/dL (32.0-36.0); Mean Corpuscular Hemoglobin 24.9 pg (27.0-31.0); Mean Corpuscular Volume 80.7 fL (78.0-102.0); Mean Platelet Volume 9.1 fl (8.7-11.0); Platelet Count Result 351 K/mm3 (150-420); Red Cell Distribution Width 21.3 % (11.6-14.4)
[2022-11-12 13:42] LABS: Band Neutrophils Percent 0 % (0-6); Basophils Percent Manual 0 % (0-1); Eosinophils Percent Manual 0 % (1-6); Lymphocytes Absolute Manual 0.78 K/mm3 (1.1-4.5); Lymphocytes Percent Manual 13 % (18-44); Monocytes Absolute Manual 0.84 K/mm3 (0.1-0.90); Monocytes Percent Manual 14 % (3-9); Neutrophils Absolute Manual 4.38 K/mm3 (1.3-6.7); Neutrophils Percent Manual 73 % (46-73); Platelet Estimate Adequate (Adequate); Total Cells Counted 100
[2022-11-12 13:46] LABS: Alanine Aminotransferase 19 U/L (16-63); Albumin Level 3.6 g/dL (3.4-5.0); Alkaline Phosphatase 155 U/L (46-116); Anion Gap 8 mmol/L (8-16); Aspartate Amino Transferase 16 U/L (15-37); Bilirubin,Total 0.5 mg/dL (0.00-1.00); Blood Urea Nitrogen 21 mg/dL (7-18); Calcium 9.2 mg/dL (8.5-10.1); Carbon Dioxide 31 mmol/L (21-32); Chloride 104 mmol/L (98-108); Estimated Glomerular Filt Rate > 60; Glucose 105 mg/dL (70-99); Osmolality Calculated 299 mOsm/kg (285-295); Potassium 4.1 mmol/L (3.5-5.1); Sodium 143 mmol/L (136-145); Total Protein 7.3 g/dL (6.4-8.2)
== END 2022-11-12 12:31 | disposition home or self-care (01) ==
LOC: CHSLAB 12:34
PROVIDERS: PCP Family Medicine; Visit Provider Internal Medicine Hematology & Oncology
DX: C81.90 Hodgkin lymphoma, unspecified, unspecified site (principal)
CPT/HCPCS: 36415; 80053; 85025

== ENCOUNTER 2022-11-18 08:05 | Outpatient (CLI) | payer OTHER, SELFPAY ==
[2022-11-18 08:28] VITALS: BMI 26.9
[2022-11-18 08:28] LABS: Hemoglobin 9.1 g/dL (14.0-18.0); Mean Corpuscular HGB Conc 31.4 g/dL (32.0-36.0); Mean Corpuscular Hemoglobin 25.1 pg (27.0-31.0); Mean Corpuscular Volume 80.1 fL (78.0-102.0); Mean Platelet Volume 9.9 fl (8.7-11.0); Platelet Count Result 275 K/mm3 (150-420); Red Blood Count 3.62 M/mm3 (4.70-6.10); Red Cell Distribution Width 19.5 % (11.6-14.4); White Blood Count 7.3 K/mm3 (4.8-10.8)
[2022-11-18 08:35] VITALS: BP 136/81; PULSE 92; RESP 14; TEMP 36.7; O2SAT 97
[2022-11-18 08:42] LABS: Band Neutrophils Percent 0 % (0-6); Basophils Percent Manual 0 % (0-1); Eosinophils Percent Manual 0 % (1-6); Lymphocytes Absolute Manual 0.51 K/mm3 (1.1-4.5); Lymphocytes Percent Manual 7 % (18-44); Monocytes Absolute Manual 0.94 K/mm3 (0.1-0.90); Monocytes Percent Manual 13 % (3-9); Neutrophils Absolute Manual 5.84 K/mm3 (1.3-6.7); Neutrophils Percent Manual 80 % (46-73); Platelet Estimate Adequate (Adequate); Total Cells Counted 100
[2022-11-18 08:43] LABS: Alanine Aminotransferase 19 U/L (16-63); Albumin Level 3.1 g/dL (3.4-5.0); Alkaline Phosphatase 137 U/L (46-116); Anion Gap 8 mmol/L (8-16); Aspartate Amino Transferase 18 U/L (15-37); Bilirubin,Total 0.5 mg/dL (0.00-1.00); Blood Urea Nitrogen 17 mg/dL (7-18); Carbon Dioxide 28 mmol/L (21-32); Chloride 102 mmol/L (98-108); Estimated CRCL calculation 102 ml/min; Estimated Glomerular Filt Rate > 60; Glucose 160 mg/dL (70-99); Osmolality Calculated 290 mOsm/kg (285-295); Potassium 3.5 mmol/L (3.5-5.1); Sodium 138 mmol/L (136-145); Total Protein 6.9 g/dL (6.4-8.2)
[2022-11-18] MEDS: ACETAMINOPHEN 325 MG TABLET 650 MG PO (08:55)
[2022-11-18] MEDS: diphenhydrAMINE HCl INJ 50 MG/ML VIAL 25 MG IV PUSH (08:55)
[2022-11-18] MEDS: SODIUM CHLORIDE 0.9% IV 250 ML 10 ML IVPB (08:56)
[2022-11-18] MEDS: vinCRIStine SULFATE (*CHEMO) 2 MG in SODIUM CHLORIDE 0.9% IV 50 ML 300 MG IVPB (09:45)
[2022-11-18] MEDS: HEPARIN SODIUM LOCK FLUSH 500 UNITS/5 ML SYRINGE IV PUSH (09:53)
[2022-11-18 10:04] VITALS: BP 121/73; PULSE 88; RESP 14; TEMP 36.7; O2SAT 98
--- NOTE | 2022-11-18 10:06 | PC.NURSE ---
Patient here for day 8 of cycle 2. Labs drawn/reviewed/ok'd. Education given. Written calendar given to patient and his mother on meds to take home and when cycle 3 day 1 will be. All questions answered. IV Chemo administered. SEE MAR. Tolerated well. Will return for cycle 3 day 1 12/02/[address] Ashford on next md visit. Safe exit of hospital per ambulatory with mother.
== END 2022-11-18 08:06 | disposition home or self-care (01) ==
LOC: CHSTREATRM 08:07
PROVIDERS: PCP Family Medicine; Visit Provider Internal Medicine Hematology & Oncology
DX: Z51.11 Encounter for antineoplastic chemotherapy (principal); C81.90 Hodgkin lymphoma, unspecified, unspecified site
CPT/HCPCS: 36415; 80053; 85025; 96375; 96411; 96413; A9270; J1200; J9040; J9370

== ENCOUNTER 2022-12-02 08:17 | Outpatient (CLI) | payer OTHER, SELFPAY ==
[2022-12-02 08:27] VITALS: BMI 25.9
[2022-12-02 08:30] VITALS: BP 149/83; PULSE 88; RESP 14; TEMP 36.7; O2SAT 97
[2022-12-02 08:33] LABS: Basophils Absolute Auto 0.02 K/mm3 (0.00-0.10); Basophils Percent Auto 0.3 % (0.0-1.0); Eosinophils Percent Auto 1.4 % (1.0-6.0); Hematocrit 33.9 % (40.0-54.0); Hemoglobin 10.7 g/dL (14.0-18.0); Immature Granulocyte Absolute 0.07 K/mm3 (0.00-0.00); Lymphocytes Absolute Auto 0.58 K/mm3 (1.10-4.50); Lymphocytes Percent Auto 8.3 % (18.0-42.0); Mean Corpuscular HGB Conc 31.6 g/dL (32.0-36.0); Mean Corpuscular Hemoglobin 24.9 pg (27.0-31.0); Mean Platelet Volume 9.2 fl (8.7-11.0); Monocytes Absolute Auto 0.87 K/mm3 (0.10-0.90); Monocytes Percent Auto 12.4 % (2.0-11.0); Neutrophils Absolute Auto 5.4 K/mm3 (1.7-7.2); Neutrophils Percent Auto 76.6 % (50.0-70.0); Platelet Count Result 314 K/mm3 (150-420); Red Blood Count 4.29 M/mm3 (4.70-6.10); Red Cell Distribution Width 16.5 % (11.6-14.4)
[2022-12-02 08:48] LABS: Alanine Aminotransferase 27 U/L (16-63); Albumin Level 3.4 g/dL (3.4-5.0); Alkaline Phosphatase 222 U/L (46-116); Anion Gap 10 mmol/L (8-16); Aspartate Amino Transferase 18 U/L (15-37); Bilirubin,Total 0.4 mg/dL (0.00-1.00); Blood Urea Nitrogen 24 mg/dL (7-18); Calcium 9.7 mg/dL (8.5-10.1); Carbon Dioxide 29 mmol/L (21-32); Chloride 97 mmol/L (98-108); Estimated CRCL calculation 94 ml/min; Estimated Glomerular Filt Rate > 60; Glucose 137 mg/dL (70-99); Osmolality Calculated 288 mOsm/kg (285-295); Potassium 4.1 mmol/L (3.5-5.1); Sodium 136 mmol/L (136-145); Total Protein 8.5 g/dL (6.4-8.2)
[2022-12-02] MEDS: FAMOTIDINE 20 MG/2 ML VIAL (08:54)
[2022-12-02] MEDS: diphenhydrAMINE HCl INJ 50 MG/ML VIAL (08:54)
[2022-12-02] MEDS: SODIUM CHLORIDE 0.9% IV 500 ML 50 ML (08:55)
[2022-12-02] MEDS: FOSAPREPITANT DIMEGLUMINE 150 MG in SODIUM CHLORIDE 0.9% IV 250 ML 750 MG IVPB (09:35)
[2022-12-02] MEDS: DOXOrubicin HCL 50 MG/25 ML VIAL 64 MG IV PUSH (10:03)
[2022-12-02 18:20] VITALS: BP 126/77; PULSE 80; RESP 14; TEMP 36.6; O2SAT 97
[2022-12-02] MEDS: HEPARIN SODIUM LOCK FLUSH 500 UNITS/5 ML SYRINGE IV PUSH (18:28)
--- NOTE | 2022-12-02 18:29 | PC.NURSE ---
Patient here for cycle 3 day 1 of chemotherapy regime. Education given. Blood/labs drawn/reviewed/ok'd to proceed. IV Chemo regime administered. SEE MAR/worklist. Tolerated well. Will return tomorrow at 0800 12/03/22 for day 2 of cycle 3. Safe exit of hospital per ambulatory with girlfriend.
== END 2022-12-02 08:18 | disposition home or self-care (01) ==
LOC: CHSLAB 08:18 → CHSTREATRM 08:19
PROVIDERS: PCP Family Medicine; Visit Provider Internal Medicine Hematology & Oncology
DX: Z51.11 Encounter for antineoplastic chemotherapy (principal); C81.90 Hodgkin lymphoma, unspecified, unspecified site
CPT/HCPCS: 36415; 36592; 80053; 85025; 96366; 96367; 96375; 96411; 96413; 96417; J1100; J1200; J1453; J2405; J7030; J7040; J7050; J9000; J9070; J9181; J9209

== ENCOUNTER 2022-12-03 08:13 | Outpatient (CLI) | payer OTHER, SELFPAY ==
[2022-12-03] MEDS: FAMOTIDINE 20 MG/ISO 50 ML 20 MG/50 ML BAG 150 MG IVPB (08:15)
[2022-12-03] MEDS: SODIUM CHLORIDE 0.9% IV 250 ML 10 ML IVPB (08:15)
[2022-12-03 08:30] VITALS: BP 140/63; PULSE 88; RESP 16; TEMP 36.8; O2SAT 96
[2022-12-03 08:32] VITALS: BMI 25.7
[2022-12-03] MEDS: diphenhydrAMINE HCl INJ 50 MG/ML VIAL 25 MG IV PUSH (08:35)
[2022-12-03 10:30] VITALS: BP 132/68; PULSE 80; RESP 14; TEMP 36.6; O2SAT 97
[2022-12-03] MEDS: HEPARIN SODIUM LOCK FLUSH 500 UNITS/5 ML SYRINGE IV PUSH (10:33)
--- NOTE | 2022-12-03 10:34 | PC.NURSE ---
Patient here for Cycle 3 day 2 of chemo regimen. Reports slept well last night. Education given. No concerns voiced. Chemo regimen administered. SEE MAR. Tolerated well. Safe exit of hospital with girlfriend ambulatory.
--- NOTE | 2022-12-03 10:36 | PC.NURSE ---
Will return tomorrow at 0800 for day 3.
== END 2022-12-03 08:14 | disposition home or self-care (01) ==
PROVIDERS: PCP Family Medicine; Visit Provider Internal Medicine Hematology & Oncology
DX: Z51.11 Encounter for antineoplastic chemotherapy (principal); C81.90 Hodgkin lymphoma, unspecified, unspecified site
CPT/HCPCS: 96367; 96375; 96413; J1100; J1200; J2405; J7030; J7050; J9181

== ENCOUNTER 2022-12-04 08:07 | Outpatient (CLI) | payer OTHER, SELFPAY ==
--- NOTE | 2022-12-04 08:10 | PC.NURSE ---
Pt to room 202 amb per self. A&Ox3. Pt has no questions or complaints. Plan of care explained. Oriented to room. Call farias in reach. Reminded to call with needs.
[2022-12-04] MEDS: SODIUM CHLORIDE 0.9% IV 250 ML 10 ML IVPB (08:41)
[2022-12-04] MEDS: diphenhydrAMINE HCl INJ 50 MG/ML VIAL 25 MG IV PUSH (08:42)
[2022-12-04] MEDS: FAMOTIDINE 20 MG/ISO 50 ML 20 MG/50 ML BAG 150 MG IVPB (08:42)
[2022-12-04 08:45] VITALS: BMI 25.5
[2022-12-04 09:01] VITALS: BP 123/63; PULSE 64; RESP 20; TEMP 36.1; O2SAT 99
--- NOTE | 2022-12-04 09:49 | PC.NURSE ---
Pt sleeping, appears comfortable. No distress noted.
[2022-12-04] MEDS: HEPARIN SODIUM LOCK FLUSH 500 UNITS/5 ML SYRINGE IV PUSH (10:49)
--- NOTE | 2022-12-04 10:58 | PC.NURSE ---
All medications administered as ordered. Pt tolerated well. Has no questions or concerns. Discharged to home amb per [facility].
== END 2022-12-04 08:08 | disposition home or self-care (01) ==
LOC: CHSTREATRM 08:08
PROVIDERS: PCP Family Medicine; Visit Provider Internal Medicine Hematology & Oncology
DX: Z51.11 Encounter for antineoplastic chemotherapy (principal); C81.90 Hodgkin lymphoma, unspecified, unspecified site
CPT/HCPCS: 96360; 96365; 96367; 96374; 96375; 96413; J1100; J1200; J2405; J7030; J7050; J9181

== ENCOUNTER 2022-12-14 12:15 | Emergency (ER) | payer OTHER, SELFPAY ==
[2022-12-14] VITALS (37 sets, daily range): BP systolic 80–102; BP diastolic 34–50; PULSE 113–130; RESP 20–43; TEMP 37.6–38.3; O2SAT 97–100
--- NOTE | ~2022-12-14 | XR_ITS ---
XR chest 1V portable 12/14/2022 12:55 Indication: Hypoxia. Dyspnea. Procedure: AP portable chest Comparison: 11/14/2021 Findings: The central line tip near the cavoatrial junction. There is right upper lobe consolidation, consistent with pneumonia. No pleural effusion or pneumothorax. No acute osseous abnormality. Impression: 1: Right upper lobe pneumonia. Reviewed, dictated and finalized at location [] Impression: 1: Right upper lobe pneumonia.
--- NOTE | ~2022-12-14 | CT_ITS ---
EXAMINATION: CT brain wo con DATE: 12/14/2022 12:55 INDICATION: Headache. TECHNIQUE: Computed tomography (CT) of the head was performed without intravenous contrast. The mA wa s adjusted according to patient size. Iterative reconstruction technique was employed. The dose-lengt h product was 605.33 mGy-cm. COMPARISON: Head CT 09/20/2007 FINDINGS: There is no intracranial hemorrhage, acute infarction, or abnormal intracranial mass lesion . The ventricles are normal in size. The orbits are normal. There is mucosal thickening in the parana emily sinuses. The mastoid air cells are normal. IMPRESSION: 1. Normal brain. Reviewed, dictated and finalized at location A. IMPRESSION: 1. Normal brain.
--- NOTE | 2022-12-14 12:27 | ECG_ITS ---
Measurements Intervals [place] Rate: 119 P: 68 WV: 122 QRS: 86 QRSD: 101 T: 65 QT: 328 QTc: 463 Interpretive Statements SINUS TACHYCARDIA BASELINE ARTIFACT NONSPECIFIC T-WAVE ABNORMALITY BORDERLINE ECG NO PREVIOUS ECG AVAILABLE FOR COMPARISON Electronically Signed On 12-14-2022 17:28:50 CDT by Gerard Biggs M.D.
--- NOTE | 2022-12-14 12:29 | ED.GENADULT ---
HPI - General Adult General Chief complaint: Weakness Stated complaint: weakness Time Seen by Provider: 12/14/22 12:26 History of Present Illness HPI narrative: Kedar is a 32M with a PMH of anxiety, ADHD, and currently has stage IV Hodgkin lymphoma that was brought to the ED via EMS for weakness. For the last few days he has had worsening weakness, watery diarrhea, nausea, vomiting, and severe headache. He could not tolerate PO. As symptoms were worsening his girlfriend called the ambulance. He is very weak making additional history difficult. He was reportedly hypoxic in the mid 80s so EMS placed him on 2L via PA. Related Data Home Medications Medication Instructions Recorded Confirmed duloxetine 60 mg capsule,delayed 60 mg PO DAILY 08/26/22 12/14/22 release hydrocodone 10 mg-acetaminophen 1 tablet PO Q4-8H PRN Pain, Severe 08/26/22 12/14/22 325 mg tablet ferrous sulfate 325 mg (65 mg 325 mg PO DAILY 09/14/22 12/14/22 iron) tablet (FeroSul) morphine 30 mg tablet, crush 30 mg PO Q12H 09/14/22 12/14/22 resistant, extended release naproxen 500 mg tablet,delayed 500 mg PO BID PRN Pain (Scale 09/14/22 12/14/22 release Score 1-3) filgrastim 300 mcg/0.5 mL 300 mcg subcut DIRECTED 12/14/22 12/14/22 injection syringe ([employer]upoChartsNow (now Music[employer]ubed)) ondansetron 8 mg disintegrating 8 mg PO PRN PRN Nausea 12/14/22 12/14/22 tablet prednisone 10 mg tablet 10 mg PO DAILY 12/14/22 12/14/22 prednisone 50 mg tablet 50 mg PO DAILY 12/14/22 12/14/22 Allergies Allergy/AdvReac Type Severity Reaction Status Date / Time NKDA,NO LATEX Allergy Mild Unknown Uncoded 12/14/22 12:40 Review of Systems Review of Systems: All systems reviewed & are unremarkable except as noted in HPI and below PMFSH Past Medical History Medical History Abdominal pain ADHD Anxiety Cellulitis Widespread metastatic malignant neoplastic disease Surgical History Surgical History H/O adenoidectomy H/O hernia repair Family History Family History Mother Non-Hodgkin lymphoma Depression Social History Social History Smoking status: Current every day smoker Tobacco type: cigarettes Alcohol intake: never Substance use: current Substance use type: marijuana, amphetamines and methamphetamine Lack of Transportation: YES Lack of Food: Sometimes True Current Housing: I Have Housing Concerned About Future Housing: No Difficulty Paying Gas/Electric Bills: YES Difficulty Paying for Meds: YES Currently Unemployed: YES Education: High School Diploma/GED Difficulty w/ Childcare or Family Care: YES Living arrangements: with family Occupation/Education: unemployed Gender identity (if verbalized by the patient): Male Exam Const: General: confusion and ill appearing acutely Nutritional Appearance: well nourished HENMT: Head: normal to inspection Ears: external ears normal Face/Nose/Sinus: Normal external nose present Eyes: Conjunctivae: conjunctivae normal Pupils: Equal, round and reactive pupils present Neck: Neck: normal visual inspection Chest: Chest palpation & inspection: normal inspection of the chest Resp: Effort & Inspection: labored, retractions and tachypneic Other: Harsh crackles on the right Cardio: Rate: tachycardic Rhythm: regular rhythm Heart sounds: no murmurs GI: Other: Diffusely TTP : General: Yes no CVA tenderness Back/Spine/Pelvis: Back: no CVA tenderness Skin: Other: Pale, warm to touch Neuro: General: patient oriented x3 and moves all extremities Other: Was very tired and mildly confused Extrem: Other: Had a small laceration on left forearm Psych: Other: mildly confused Course Course Emergency Course: Ordered labs,
[2022-12-14] MEDS: SODIUM CHLORIDE 0.9% IV 1,000 ML 999 ML IV CONT ×2 (12:31→13:24)
[2022-12-14 12:36] LABS: Glucose Point of Care 132 mg/dl (65-105)
[2022-12-14 12:43] LABS: Hematocrit 21.4 % (40.0-54.0); Immature Platelet Fraction Pct 9.4 % (1.0-7.0); Mean Corpuscular HGB Conc 32.2 g/dL (32.0-36.0); Mean Corpuscular Hemoglobin 24.7 pg (27.0-31.0); Mean Corpuscular Volume 76.7 fL (78.0-102.0); Mean Platelet Volume 11.1 fl (8.7-11.0); Platelet Count Result 58 K/mm3 (150-420); Red Blood Count 2.79 M/mm3 (4.70-6.10); Red Cell Distribution Width 13.2 % (11.6-14.4)
[2022-12-14 12:47] LABS: Hemoglobin 6.9 g/dL (14.0-18.0); White Blood Count 0.2 K/mm3 (4.8-10.8)
[2022-12-14 12:50] LABS: INR 1.4; Prothrombin Time 15.1 Seconds (9.50-12.10)
[2022-12-14 13:00] LABS: Platelet Estimate Decreased (Adequate)
[2022-12-14 13:01] LABS: Lactic Acid Reflex 8.7 mmol/L (0.4-2.0)
[2022-12-14 13:04] LABS: Alanine Aminotransferase 13 U/L (16-63); Albumin Level 2.5 g/dL (3.4-5.0); Alkaline Phosphatase 108 U/L (46-116); Anion Gap 15 mmol/L (8-16); Aspartate Amino Transferase < 10 U/L (15-37); Bilirubin,Total 0.5 mg/dL (0.00-1.00); Blood Urea Nitrogen 23 mg/dL (7-18); Calcium 8.3 mg/dL (8.5-10.1); Carbon Dioxide 26 mmol/L (21-32); Chloride 92 mmol/L (98-108); Estimated Glomerular Filt Rate 22; Glucose 132 mg/dL (70-99); Lipase 9 U/L (16-77); NT Pro B Type Natriuretic Pept 9251 pg/mL (0-125); Osmolality Calculated 281 mOsm/kg (285-295); Potassium 3.2 mmol/L (3.5-5.1); Sodium 133 mmol/L (136-145); Total Protein 6.5 g/dL (6.4-8.2)
[2022-12-14 13:08] LABS: CRP > 25.0 mg/dL (0.0-0.9); Magnesium 0.8 mg/dL (1.8-2.4); Troponin I 238.9 ng/L (0.00-60.4)
[2022-12-14] MEDS: CEFEPIME 2 GM/NS 50 ML 2 GM/50 ML BAG IVPB (13:12)
[2022-12-14 13:16] LABS: Thyroid Stimulating Hormone 0.88 uIU/mL (0.36-3.74)
[2022-12-14] MEDS: MAGNESIUM SULF 2 GM/WATER 50ML 2 GM/50 ML BAG IVPB (13:18)
[2022-12-14 13:21] LABS: Influenza A QL RT-PCR Negative (Negative); Influenza B QL RT-PCR Negative (Negative); SARS-CoV-2 RNA PCR Negative (Negative)
[2022-12-14 13:23] LABS: RSV RNA, RT-PCR Negative (Negative)
[2022-12-14] MEDS: SODIUM CHLORIDE 0.9% IV 250 ML 30 ML IV CONT (13:40)
--- NOTE | 2022-12-14 13:54 | PC.NURSE ---
blood consent was obtained. pt is aware of plan of care. pt has blanket for comfort. ivf, iv medications, and blood transfusing without difficulty at this time. nad noted. pt continues to report gen body aches and headache. pt is awaiting results and erp decision. will continue to monitor.
--- NOTE | 2022-12-14 14:00 | PC.NURSE ---
PT IS REPORTING HE HAS RT SIDED CHEST PAIN, STATES HE HAS BEEN HAVING THE CP SINCE ONSET OF SX 2 DAYS AGO. PT REPORTS HE HAS NOT HAD HIS INJECTION FOR CHEMO TODAY. PT VERBALIZED HE WOULD ACCEPT INTUBATION, HOWEVER DOES NOT WISH TO HAVE CHEST COMPRESSIONS. MIC [facility] IS AT BEDSIDE DURING CONVERSATION WITH ERP. WILL CONTINUE TO MONITOR.
[2022-12-14] MEDS: NOREPINEPHRINE 8 MG/D5W 250 ML 8 MG/250 ML BAG 9.38 MG IV CONT (14:18)
--- NOTE | 2022-12-14 14:24 | PC.NURSE ---
PT HAS BECOME RESTLESS, ERP IS SPEAKING WITH [facility] AT THIS TIME. WILL CONTINUE TO MONITOR.
--- NOTE | 2022-12-14 14:25 | PC.NURSE ---
PT HAS BEEN ACCEPTED BY [facility], TO AWAIT BED PLACEMENT. SPOKE WITH LUIS IN PHARMACY REGARDING MEDICATION ADMINISTRATION PRIOR TO ADMINISTERING MEDICATIONS.
--- NOTE | 2022-12-14 14:26 | PC.NURSE ---
PT CALMS DOWN AFTER ICE CHIPS PROVIDED. WILL CONTINUE TO MONITOR.
--- NOTE | 2022-12-14 14:50 | PC.NURSE ---
PT IS HACKING UP THICK WHITE SPUTUM. NO CHANGE IN PT STATUS. WILL CONTINUE TO MONITOR. PT REMAINS A & O X4. NO RESP DISTRESS NOTED.
[2022-12-14] MEDS: KCL 20MEQ/0.9% SOD CHL 1,000 ML 100 ML IV CONT (14:53)
--- NOTE | 2022-12-14 14:54 | PC.NURSE ---
BLOOD MOVED TO LAC DUE TO NOREPINEPHRINE ADMINISTRATION
[2022-12-14 15:34] LABS: Reflex Lactic Acid Yes or No Add Lactic
[2022-12-14] MEDS: AZITHROMYCIN 500 MG/NS 250 ML 500 MG/250 ML BAG 250 MG IVPB (15:50)
[2022-12-14 15:56] LABS: Hematocrit 22.8 % (40.0-54.0); Hemoglobin 7.5 g/dL (14.0-18.0)
[2022-12-14 16:17] LABS: Lactic Acid 5.9 mmol/L (0.4-2.0)
--- NOTE | 2022-12-24 14:09 | PC.NURSE ---
final blood culture reports x2 reviewed. no growth after 5 days. no change in plan of care.
== END 2022-12-14 16:00 | disposition short-term general hospital (02) ==
PROVIDERS: Emergency Provider Family Medicine; PCP Family Medicine
DX: A41.9 Sepsis, unspecified organism (principal); R65.21 Severe sepsis with septic shock; C81.90 Hodgkin lymphoma, unspecified, unspecified site; F17.210 Nicotine dependence, cigarettes, uncomplicated; Z79.891 Long term (current) use of opiate analgesic; Z79.1 Long term (current) use of non-steroidal anti-inflammatories (NSAID); Z20.822 Contact with and (suspected) exposure to COVID-19
CPT/HCPCS: 36415; 36430; 70450; 71045; 80053; 82948; 83605; 83690; 83735; 83880; 84443; 84484; 85014; 85018; 85025; 85055; 85610; 86140; 86850; 86900; 86901; 86920; 87040; 87637; 93005; 96361; 96365; 96366; 96367; 96368; 96375; 99291; J0456; J0692; J3370; J3475; J3480; J7030; J7050; P9016

== ENCOUNTER 2023-01-14 09:44 | Outpatient (CLI) | payer OTHER, SELFPAY ==
[2023-01-14 09:57] LABS: Basophils Absolute Auto 0.01 K/mm3 (0.00-0.10); Basophils Percent Auto 0.1 % (0.0-1.0); Eosinophils Absolute Auto 0.03 K/mm3 (0.02-0.50); Eosinophils Percent Auto 0.3 % (1.0-6.0); Hematocrit 34.4 % (40.0-54.0); Hemoglobin 10.7 g/dL (14.0-18.0); Immature Granulocyte Absolute 0.04 K/mm3 (0.00-0.00); Immature Granulocyte Percent A 0.3 % (0.0-0.0); Lymphocytes Absolute Auto 0.54 K/mm3 (1.10-4.50); Lymphocytes Percent Auto 4.6 % (18.0-42.0); Mean Corpuscular HGB Conc 31.1 g/dL (32.0-36.0); Mean Corpuscular Hemoglobin 26.5 pg (27.0-31.0); Mean Corpuscular Volume 85.1 fL (78.0-102.0); Mean Platelet Volume 9.6 fl (8.7-11.0); Monocytes Absolute Auto 1.28 K/mm3 (0.10-0.90); Neutrophils Absolute Auto 9.8 K/mm3 (1.7-7.2); Neutrophils Percent Auto 83.7 % (50.0-70.0); Platelet Count Result 255 K/mm3 (150-420); Red Blood Count 4.04 M/mm3 (4.70-6.10); Red Cell Distribution Width 15.5 % (11.6-14.4); White Blood Count 11.7 K/mm3 (4.8-10.8)
[2023-01-14 10:45] LABS: Alanine Aminotransferase 17 U/L (16-63); Albumin Level 3.2 g/dL (3.4-5.0); Alkaline Phosphatase 115 U/L (46-116); Anion Gap 7 mmol/L (8-16); Aspartate Amino Transferase < 10 U/L (15-37); Bilirubin,Total 0.2 mg/dL (0.00-1.00); Blood Urea Nitrogen 15 mg/dL (7-18); Calcium 9.1 mg/dL (8.5-10.1); Carbon Dioxide 33 mmol/L (21-32); Chloride 103 mmol/L (98-108); Estimated Glomerular Filt Rate > 60; Glucose 100 mg/dL (70-99); Osmolality Calculated 296 mOsm/kg (285-295); Potassium 3.3 mmol/L (3.5-5.1); Sodium 143 mmol/L (136-145); Total Protein 6.6 g/dL (6.4-8.2)
== END 2023-01-14 09:45 | disposition home or self-care (01) ==
LOC: CHSLAB 09:46
PROVIDERS: PCP Family Medicine; Visit Provider Internal Medicine Hematology & Oncology
DX: C81.90 Hodgkin lymphoma, unspecified, unspecified site (principal)
CPT/HCPCS: 36415; 80053; 85025

== ENCOUNTER 2023-02-26 14:36 | Outpatient (CLI) | payer OTHER, SELFPAY ==
[2023-02-26 15:06] LABS: Basophils Absolute Auto 0.01 K/mm3 (0.00-0.10); Basophils Percent Auto 0.2 % (0.0-1.0); Eosinophils Absolute Auto 0.08 K/mm3 (0.02-0.50); Eosinophils Percent Auto 1.6 % (1.0-6.0); Hematocrit 37.4 % (40.0-54.0); Immature Granulocyte Absolute 0.02 K/mm3 (0.00-0.00); Immature Granulocyte Percent A 0.4 % (0.0-0.0); Lymphocytes Percent Auto 5.8 % (18.0-42.0); Mean Corpuscular HGB Conc 32.1 g/dL (32.0-36.0); Mean Corpuscular Volume 81.1 fL (78.0-102.0); Mean Platelet Volume 9.2 fl (8.7-11.0); Monocytes Absolute Auto 0.46 K/mm3 (0.10-0.90); Monocytes Percent Auto 8.9 % (2.0-11.0); Neutrophils Absolute Auto 4.3 K/mm3 (1.7-7.2); Neutrophils Percent Auto 83.1 % (50.0-70.0); Platelet Count Result 274 K/mm3 (150-420); Red Blood Count 4.61 M/mm3 (4.70-6.10); White Blood Count 5.2 K/mm3 (4.8-10.8)
[2023-02-26 15:49] LABS: Alanine Aminotransferase 18 U/L (16-63); Albumin Level 3.2 g/dL (3.4-5.0); Alkaline Phosphatase 177 U/L (46-116); Anion Gap 6 mmol/L (8-16); Aspartate Amino Transferase 13 U/L (15-37); Bilirubin,Total 0.4 mg/dL (0.00-1.00); Blood Urea Nitrogen 21 mg/dL (7-18); Calcium 9.2 mg/dL (8.5-10.1); Carbon Dioxide 32 mmol/L (21-32); Chloride 103 mmol/L (98-108); Estimated Glomerular Filt Rate > 60; Glucose 101 mg/dL (70-99); Lactate Dehydrogenase 145 U/L (85-227); Osmolality Calculated 295 mOsm/kg (285-295); Potassium 4.2 mmol/L (3.5-5.1); Sodium 141 mmol/L (136-145); Total Protein 6.7 g/dL (6.4-8.2)
== END 2023-02-26 14:37 | disposition home or self-care (01) ==
LOC: CHSLAB 14:39
PROVIDERS: PCP Family Medicine; Visit Provider Internal Medicine Hematology & Oncology
DX: C81.90 Hodgkin lymphoma, unspecified, unspecified site (principal)
CPT/HCPCS: 36415; 80053; 83615; 85025

== ENCOUNTER 2023-04-06 09:59 | Emergency (ER) | payer OTHER, SELFPAY ==
[2023-04-06 10:07] VITALS: BP 142/79; PULSE 94; RESP 18; TEMP 36.3; O2SAT 99
--- NOTE | 2023-04-06 10:10 | ED.BACK ---
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 Patient is here for pain control at this time. He has cervical spine and lumbar spine pain at this time. He is planning his PET scan CT in the next week. MD elicited complaint: back pain ( Cervical and lumbar) Pertinent past history: prior back pain and other ( stage IV lymphoma) Onset (ago): hour(s) Timing: constant Severity: similar to previous episodes Pain scale (0-10): 9 Similar Symptoms Previously: Yes Quality: burning and sharp Location: lumbar spine ( as well as cervical spine) Radiation: buttocks, left leg below the knee, right leg below the knee and neck Exacerbating factors: movement, sitting upright and walking Relieving factors: none Context: other ( recurrent and chronic acute on chronic pain at this time) Associated symptoms: weakness and difficulty walking Treatments prior to arrival: prescription analgesics ( patient ran out of his hydrocodone due to the acute flare; there is no concern for pain medicine abuse) Related Data Home Medications Medication Instructions Recorded Confirmed hydrocodone 10 mg-acetaminophen 1 tablet PO Q4-8H PRN Pain, Severe 08/26/22 04/06/23 325 mg tablet morphine 30 mg tablet, crush 30 mg PO Q12H 09/14/22 04/06/23 resistant, extended release naproxen 500 mg tablet,delayed 500 mg PO BID PRN Pain (Scale 09/14/22 04/06/23 release (EC-Naproxen) Score 1-3) diphenhydramine HCl 12.5 mg/5 mL 12.5 mg PO QID PRN Allergic 12/22/22 04/06/23 oral liquid (Benadryl Allergy) Reaction duloxetine 60 mg capsule,delayed See Rx Instructions .Route .COMPLEX 04/06/23 04/06/23 release (Cymbalta) gabapentin 300 mg capsule 300 mg PO TID 04/06/23 04/06/23 (Neurontin) Allergies Allergy/AdvReac Type Severity Reaction Status Date / Time NKDA,NO LATEX Allergy Mild Unknown Uncoded 04/06/23 10:16 Review of Systems Review of Systems: All systems reviewed & are unremarkable except as noted in HPI and below Constitutional: Constitutional: Reports no additional constitutional complaints Eyes: Eyes: Reports no additional eye complaints ENT: Reports system reviewed and no additional complaints, except as documented Cardiovascular: Cardiovascular: Reports no additional cardiovascular complaints Respiratory: Respiratory: Reports no additional respiratory complaints Gastrointestinal: Gastrointestinal: Reports no additional gastrointestinal complaints Genitourinary: Genitourinary: Reports no additional male genitourinary complaints Musculoskeletal: Musculoskeletal: Reports no additional musculoskeletal complaints Integumentary/Breasts: Skin/Breast: Reports system reviewed and no additional complaints, except as docu Neurologic: Reports system reviewed and no additional complaints, except as documented Psychiatric: Psychiatric: Reports no additional psychiatric complaints Endocrine: Endocrine: Reports no additional endocrine complaints Hematologic/Lymphatic: Hematologic/Lymphatic: Reports no additional hematologic/lymphatic complaints Allergic/Immunologic: Allergic/Immunologic: Reports no additional allergic/immunologic complaints PMFSH Past Medical History Medical History Abdominal pain ADHD Anxiety Cellulitis Widespread metastatic malignant neoplastic disease Surgical History Surgical History H/O adenoidectomy H/O hernia repair Family History Family History Mother Non-Hodgkin lymphoma Depression Social History Social History (Reviewed 04/06/23 @ 10:14 by Saul Gonzales
[2023-04-06] MEDS: predniSONE 20 MG TABLET 40 MG PO (10:29)
[2023-04-06] MEDS: HYDROmorphone HCL INJ (*CRX) 2 MG/ML VIAL 1 MG IM (10:29)
[2023-04-06 11:00] VITALS: BP 137/72; PULSE 92; RESP 16; O2SAT 97
[2023-04-06 12:09] VITALS: BP 136/68; PULSE 83; RESP 18; TEMP 36.8; O2SAT 99
[2023-04-06 12:22] VITALS: BP 129/76; PULSE 89; RESP 16; TEMP 35.9; O2SAT 97
== END 2023-04-06 12:23 | disposition home or self-care (01) ==
PROVIDERS: Emergency Provider Emergency Medicine; PCP Family Medicine
DX: G89.3 Neoplasm related pain (acute) (chronic) (principal); C77.8 Secondary and unspecified malignant neoplasm of lymph nodes of multiple regions; M54.2 Cervicalgia; M54.50 Low back pain, unspecified; F17.210 Nicotine dependence, cigarettes, uncomplicated; F12.90 Cannabis use, unspecified, uncomplicated; F15.90 Other stimulant use, unspecified, uncomplicated; Z79.891 Long term (current) use of opiate analgesic
CPT/HCPCS: 96372; 99283; J1170; J7512

== ENCOUNTER 2023-04-24 13:18 | Emergency (ER) | payer OTHER, SELFPAY ==
[2023-04-24] VITALS (13 sets, daily range): BP systolic 113–145; BP diastolic 66–88; PULSE 69–98; RESP 10–18; TEMP 36.2–36.8; O2SAT 95–100
--- NOTE | ~2023-04-24 | CT_ITS ---
EXAMINATION: CT cervical spine wo con DATE: 04/24/2023 14:17 INDICATION: fall, blurred vision, hx non Hodgkin's TECHNIQUE: Computed tomography (CT) of the cervical spine was performed without intravenous contrast. Automated exposure control and iterative reconstruction technique were employed. The dose-length pro duct was 366.92 mGy-cm. COMPARISON: None. FINDINGS: Vertebral Body Alignment: Intact. Reversed lordosis. Craniocervical and atlantoaxial alignment: Mild degenerative change. Alignment intact. Osseous structures/fracture: Mixed lytic and sclerotic lesion in the C4 vertebral body, with posterio r cortical breakthrough and 5 mm left paracentral soft tissue extension into the canal. Lytic lesion in the left C4 facet. Mixed sclerotic and lytic lesion in the C5 vertebral body. A lytic lesion in th e right C5 facet. No evidence of acute fracture. Cervical soft tissues: The paraspinal soft tissues planes are maintained. No definite lymphadenopathy . Interlobular septal thickening in the apices. Moderate left pleural fluid collection. Dental caries . Degenerative changes: No significant degenerative changes. IMPRESSION: Mixed sclerotic/lytic lesions in C4 and C5. 5 mm left paracentral soft tissue extension into the marilyn l at the level of C4. Consider MRI of the cervical spine without and with contrast. Moderate left pleural effusion. Mild pulmonary edema. Dental caries. Reviewed, dictated and finalized at location K. IMPRESSION: Mixed sclerotic/lytic lesions in C4 and C5. 5 mm left paracentral soft tissue e xtension into the canal at the level of C4. Consider MRI of the cervical spine without and with contrast. Moderate left pleural effusion. Mild pulmonary edema. Dental caries.
--- NOTE | ~2023-04-24 | CT_ITS ---
EXAMINATION: CT brain wo con DATE: 04/24/2023 14:16 INDICATION: Dysarthria, blurred vision, history of non Hodgk . TECHNIQUE: Computed tomography (CT) of the head was performed without intravenous contrast. The mA wa s adjusted according to patient size. Iterative reconstruction technique was employed. The dose-lengt h product was 605.33 mGy-cm. COMPARISON: 12/14/2022. FINDINGS: No acute intracranial hemorrhage or extra-axial fluid collection. No hydrocephalus, mass, or herniation. No acute ischemic infarct. Unremarkable dural venous sinus attenuation. No acute osseous abnormality. The aerated spaces are clear. IMPRESSION: No acute intracranial process. Reviewed, dictated and finalized at location K.
--- NOTE | 2023-04-24 13:28 | ED.GENADULT ---
HPI - General Adult General Chief complaint: Unspecified Stated complaint: leg swelling Time Seen by Provider: 04/24/23 13:22 Source: patient Mode of arrival: wheelchair History of Present Illness HPI narrative: 33-year-old male, smoker with a history of marijuana and amphetamine use was diagnosed with metastatic non-Hodgkin's lymphoma on 11/14/2021. He was noted to have disease involving the neck, the mediastinum and abdominal lymph nodes. He has a family history of cancers and his mother had non-Hodgkin's lymphoma which resolved with chemotherapy. Patient received chemotherapy. in December he was noted to have right lobe pneumonia with respiratory failure requiring intubation and mechanical ventilation, multiple osseous metastatic lesions, decreased blood counts. He was admitted and treated with antibiotics and received filgrastim. Subsequently he has not been on chemotherapy. He is due to get PET scan to re-evaluate for additional chemotherapy. The patient also has a history of ADHD, anxiety, depression, back pain. He presents to the ER with -- bilateral leg pain and swelling. He has had intermittent extremity pain and leg pain possibly related to his chemotherapy. -- blurred vision. He is also noted to have double vision. -- patient had an episode of vomiting 2 days ago. No abdominal pain. No diarrhea. -- Patient has a history of recurrent falls. He also has a history of dropping things. Patient did not have any fever. No chest pain or shortness of breath. Onset (ago): hour(s) ( Since morning) Location: lower extremity Severity: severe Quality: aching Pain Consistency: constant Relieving factors: none Exacerbating factors: none Associated symptoms: denies other symptoms Treatments prior to arrival: none and other ( patient is on NSAIDS, gabapentin, [place]) Related Data Home Medications Medication Instructions Recorded Confirmed hydrocodone 10 mg-acetaminophen 1 tablet PO Q4-8H PRN Pain, Severe 08/26/22 04/24/23 325 mg tablet morphine 30 mg tablet, crush 30 mg PO Q12H 09/14/22 04/24/23 resistant, extended release naproxen 500 mg tablet,delayed 500 mg PO BID PRN Pain (Scale 09/14/22 04/24/23 release (EC-Naproxen) Score 1-3) diphenhydramine HCl 12.5 mg/5 mL 12.5 mg PO QID PRN Allergic 12/22/22 04/24/23 oral liquid (Benadryl Allergy) Reaction gabapentin 300 mg capsule 300 mg PO TID 04/06/23 04/24/23 (Neurontin) Allergies Allergy/AdvReac Type Severity Reaction Status Date / Time NKDA,NO LATEX Allergy Mild Unknown Uncoded 04/06/23 10:16 Review of Systems Review of Systems: All systems reviewed & are unremarkable except as noted in HPI and below Constitutional: Constitutional: Reports as per HPI, Reports no additional constitutional complaints and Reports fatigue Eyes: Eyes: Reports as per HPI, Reports no additional eye complaints, Reports blurry vision and Reports diplopia ENT: Reports system reviewed and no additional complaints, except as documented Cardiovascular: Cardiovascular: Reports as per HPI and Reports no additional cardiovascular complaints Respiratory: Respiratory: Reports as per HPI, Reports no additional respiratory complaints and Reports cough Gastrointestinal: Gastrointestinal: Reports as per HPI, Reports no additional gastrointestinal complaints and Reports vomiting Comments: vomited 2 days ago. No hematemesis or melena. Genitourinary: Genitourinary: Reports no additional male genitourinary complaints Musculoskeletal: Musculoskeletal: Reports no additional musculoskeletal complaints Comments: Pain and paresthesias of both upper and lower extremities. Integumentary/Breasts: Skin/Breast: Reports system reviewed and no additional complaints, except as docu and Reports as per HPI Neurologic: Reports system reviewed and no additional complaints, except as documented and Reports as per HPI Psychiatric: Psychiatric: Reports no additional psychiatric complaints and
[2023-04-24 14:06] LABS: Hematocrit 24.9 % (40.0-54.0); Hemoglobin 7.2 g/dL (14.0-18.0); Mean Corpuscular HGB Conc 28.9 g/dL (32.0-36.0); Mean Corpuscular Volume 75.9 fL (78.0-102.0); Mean Platelet Volume 8.1 fl (8.7-11.0); Platelet Count Result 460 K/mm3 (150-420); Red Blood Count 3.28 M/mm3 (4.70-6.10); Red Cell Distribution Width 16.4 % (11.6-14.4); White Blood Count 5.7 K/mm3 (4.8-10.8)
[2023-04-24 14:21] LABS: Alanine Aminotransferase 10 U/L (16-63); Albumin Level 1.8 g/dL (3.4-5.0); Alkaline Phosphatase 311 U/L (46-116); Anion Gap 6 mmol/L (8-16); Aspartate Amino Transferase 14 U/L (15-37); Bilirubin,Total 0.7 mg/dL (0.00-1.00); Blood Urea Nitrogen 20 mg/dL (7-18); Calcium 11.7 mg/dL (8.5-10.1); Carbon Dioxide 32 mmol/L (21-32); Chloride 98 mmol/L (98-108); Creatine Kinase 9 U/L (39-308); Estimated CRCL calculation 64 ml/min; Estimated Glomerular Filt Rate 59; Glucose 90 mg/dL (70-99); Lipase 15 U/L (16-77); Osmolality Calculated 284 mOsm/kg (285-295); Potassium 4.6 mmol/L (3.5-5.1); Sodium 136 mmol/L (136-145); Total Protein 6.4 g/dL (6.4-8.2)
[2023-04-24 14:22] LABS: Lactate Dehydrogenase 146 U/L (85-227)
[2023-04-24 14:26] LABS: Lactic Acid Reflex 0.8 mmol/L (0.4-2.0)
[2023-04-24 14:35] LABS: Band Neutrophils Percent 0 % (0-6); Basophils Absolute Manual 0.05 K/mm3 (0-0.1); Basophils Percent Manual 1 % (0-1); Eosinophils Absolute Manual 0.39 K/mm3 (0.02-0.5); Eosinophils Percent Manual 7 % (1-6); Lymphocytes Absolute Manual 1.19 K/mm3 (1.1-4.5); Lymphocytes Percent Manual 21 % (18-44); Monocytes Absolute Manual 0.11 K/mm3 (0.1-0.90); Monocytes Percent Manual 2 % (3-9); Neutrophils Absolute Manual 3.93 K/mm3 (1.3-6.7); Neutrophils Percent Manual 69 % (46-73); Total Cells Counted 100
[2023-04-24 14:36] LABS: Atypical Lymphocytes Present; Platelet Clumps Present; Platelet Estimate Increased (Adequate); Toxic Granulation Present (NORMAL)
[2023-04-24 14:37] LABS: Schistocytes None Seen (NORMAL)
--- NOTE | 2023-04-24 17:46 | ED.GENADULT ---
HPI - General Adult General Chief complaint: Unspecified Stated complaint: leg swelling Time Seen by Provider: 04/24/23 13:22 Source: patient Mode of arrival: wheelchair History of Present Illness Location: lower extremity Quality: aching Relieving factors: none Exacerbating factors: none Associated symptoms: denies other symptoms Treatments prior to arrival: none and other ( patient is on NSAIDS, gabapentin, [place]) Related Data Home Medications Medication Instructions Recorded Confirmed hydrocodone 10 mg-acetaminophen 1 tablet PO Q4-8H PRN Pain, Severe 08/26/22 04/24/23 325 mg tablet morphine 30 mg tablet, crush 30 mg PO Q12H 09/14/22 04/24/23 resistant, extended release naproxen 500 mg tablet,delayed 500 mg PO BID PRN Pain (Scale 09/14/22 04/24/23 release (EC-Naproxen) Score 1-3) diphenhydramine HCl 12.5 mg/5 mL 12.5 mg PO QID PRN Allergic 12/22/22 04/24/23 oral liquid (Benadryl Allergy) Reaction gabapentin 300 mg capsule 300 mg PO TID 04/06/23 04/24/23 (Neurontin) Allergies Allergy/AdvReac Type Severity Reaction Status Date / Time NKDA,NO LATEX Allergy Mild Unknown Uncoded 04/06/23 10:16 [facility] Past Medical History Medical History Abdominal pain ADHD Anxiety Cellulitis Widespread metastatic malignant neoplastic disease Surgical History Surgical History H/O adenoidectomy H/O hernia repair Family History Family History Mother Non-Hodgkin lymphoma Depression Social History Social History Smoking status: Current every day smoker Tobacco type: cigarettes Alcohol intake: never Substance use: current Substance use type: marijuana, amphetamines and methamphetamine Lack of Transportation: YES Lack of Food: Sometimes True Current Housing: I Have Housing Concerned About Future Housing: No Difficulty Paying Gas/Electric Bills: YES Difficulty Paying for Meds: YES Currently Unemployed: YES Education: High School Diploma/GED Difficulty w/ Childcare or Family Care: YES Living arrangements: with family Occupation/Education: unemployed Gender identity (if verbalized by the patient): Male Course Vital Signs Vital signs: Vital Signs Temperature 36.6 C 04/24/23 13:18 Pulse Rate 96 04/24/23 13:18 Respiratory Rate 10 L 04/24/23 13:18 Blood Pressure 113/78 04/24/23 13:18 Pulse Oximetry 98 04/24/23 13:18 Oxygen Delivery Room Air 04/24/23 13:18 Temperature 36.2 C L 04/24/23 16:11 Pulse Rate 71 04/24/23 17:00 Respiratory Rate 15 04/24/23 17:00 Blood Pressure 128/70 04/24/23 17:00 Pulse Oximetry 99 04/24/23 17:15 Oxygen Delivery Room Air 04/24/23 16:11 Medical Decision Making Vital Signs Vital Signs: Vital Signs Temperature 36.6 C 04/24/23 13:18 Pulse Rate 96 04/24/23 13:18 Respiratory Rate 10 L 04/24/23 13:18 Blood Pressure 113/78 04/24/23 13:18 Pulse Oximetry 98 04/24/23 13:18 Oxygen Delivery Room Air 04/24/23 13:18 Temperature 36.2 C L 04/24/23 16:11 Pulse Rate 71 04/24/23 17:00 Respiratory Rate 15 04/24/23 17:00 Blood Pressure 128/70 04/24/23 17:00 Pulse Oximetry 99 04/24/23 17:15 Oxygen Delivery Room Air 04/24/23 16:11 Lab Data 04/24/23 14:02 04/24/23 14:02 Labs: Lab Results 04/24/23 Range/Units 14:02 WBC 5.7 (4.8-10.8) K/mm3 RBC 3.28 L (4.70-6.10) M/mm3 Hgb 7.2 L (14.0-18.0) g/dL Hct 24.9 L (40.0-54.0) % MCV 75.9 L (78.0-102.0) fL MCH 22.0 L (27.0-31.0) pg MCHC 28.9 L (32.0-36.0) g/dL RDW 16.4 H (11.6-14.4) % Plt Count 460 H (150-420) K/mm3 MPV 8.1 L (8.7-11.0) fl Immature Gran % (Auto) Not Reportable Neut % (Auto) Not Reportable Lymph % (Auto) Not Reportable
== END 2023-04-24 20:24 | disposition short-term general hospital (02) ==
PROVIDERS: Emergency Provider Internal Medicine Critical Care Medicine; PCP Family Medicine
DX: C85.91 Non-Hodgkin lymphoma, unspecified, lymph nodes of head, face, and neck (principal); C79.9 Secondary malignant neoplasm of unspecified site; D50.9 Iron deficiency anemia, unspecified; N28.9 Disorder of kidney and ureter, unspecified; F17.210 Nicotine dependence, cigarettes, uncomplicated; Z79.891 Long term (current) use of opiate analgesic; Z79.899 Other long term (current) drug therapy; Z79.1 Long term (current) use of non-steroidal anti-inflammatories (NSAID)
CPT/HCPCS: 36415; 70450; 72125; 80053; 82550; 83605; 83615; 83690; 85025; 99284; 99285

== ENCOUNTER 2023-05-18 11:23 | Outpatient (CLI) | payer OTHER, SELFPAY ==
[2023-05-18 11:36] LABS: Hematocrit 27.8 % (40.0-54.0); Hemoglobin 8.3 g/dL (14.0-18.0); Mean Corpuscular HGB Conc 29.9 g/dL (32.0-36.0); Mean Corpuscular Hemoglobin 24.1 pg (27.0-31.0); Mean Corpuscular Volume 80.6 fL (78.0-102.0); Mean Platelet Volume 9.1 fl (8.7-11.0); Platelet Count Result 148 K/mm3 (150-420); Red Blood Count 3.45 M/mm3 (4.70-6.10); Red Cell Distribution Width 20.6 % (11.6-14.4)
[2023-05-18 12:04] LABS: Band Neutrophils Percent 6 % (0-6); Basophils Percent Manual 0 % (0-1); Eosinophils Absolute Manual 0.32 K/mm3 (0.02-0.5); Eosinophils Percent Manual 8 % (1-6); Lymphocytes Absolute Manual 0.32 K/mm3 (1.1-4.5); Lymphocytes Percent Manual 8 % (18-44); Metamyelocytes Percent 1 %; Monocytes Absolute Manual 0.48 K/mm3 (0.1-0.90); Monocytes Percent Manual 12 % (3-9); Myelocytes Percent 1 %; Neutrophils Percent Manual 64 % (46-73); Platelet Estimate Adequate (Adequate); Total Cells Counted 100
== END 2023-05-18 11:24 | disposition home or self-care (01) ==
PROVIDERS: PCP Family Medicine
DX: C81.18 Nodular sclerosis Hodgkin lymphoma, lymph nodes of multiple sites (principal)
CPT/HCPCS: 36415; 85025

== ENCOUNTER 2023-07-22 08:25 | Outpatient (CLI) | payer OTHER, SELFPAY ==
[2023-07-22 08:52] LABS: Hematocrit 31.3 % (40.0-54.0); Mean Corpuscular HGB Conc 31.9 g/dL (32.0-36.0); Mean Corpuscular Volume 81.5 fL (78.0-102.0); Mean Platelet Volume 9.2 fl (8.7-11.0); Platelet Count Result 242 K/mm3 (150-420); Red Blood Count 3.84 M/mm3 (4.70-6.10); Red Cell Distribution Width 16.1 % (11.6-14.4); White Blood Count 4.7 K/mm3 (4.8-10.8)
[2023-07-22 08:53] VITALS: BP 123/72; PULSE 92; RESP 14; TEMP 36.6; O2SAT 98; BMI 25.0
[2023-07-22] MEDS: SODIUM CHLORIDE 0.9% IV 250 ML 10 ML IVPB (09:00)
[2023-07-22 09:10] LABS: Band Neutrophils Percent 0 % (0-6); Eosinophils Absolute Manual 0.14 K/mm3 (0.02-0.5); Eosinophils Percent Manual 3 % (1-6); Lymphocytes Absolute Manual 0.56 K/mm3 (1.1-4.5); Lymphocytes Percent Manual 12 % (18-44); Monocytes Absolute Manual 1.22 K/mm3 (0.1-0.90); Monocytes Percent Manual 26 % (3-9); Neutrophils Absolute Manual 2.77 K/mm3 (1.3-6.7); Neutrophils Percent Manual 59 % (46-73); Platelet Estimate Adequate (Adequate); Total Cells Counted 100
[2023-07-22 09:36] LABS: Alanine Aminotransferase 25 U/L (16-63); Alkaline Phosphatase 92 U/L (46-116); Anion Gap 10 mmol/L (8-16); Aspartate Amino Transferase 16 U/L (15-37); Bilirubin,Total 0.3 mg/dL (0.00-1.00); Blood Urea Nitrogen 16 mg/dL (7-18); Calcium 8.2 mg/dL (8.5-10.1); Carbon Dioxide 28 mmol/L (21-32); Chloride 101 mmol/L (98-108); Estimated CRCL calculation 108 ml/min; Estimated Glomerular Filt Rate > 60; Glucose 98 mg/dL (70-99); Lactate Dehydrogenase 156 U/L (85-227); Osmolality Calculated 289 mOsm/kg (285-295); Potassium 3.3 mmol/L (3.5-5.1); Sodium 139 mmol/L (136-145); Thyroid Stimulating Hormone < 0.01 uIU/mL (0.36-3.74); Total Protein 6.2 g/dL (6.4-8.2); Vitamin B12 1966 pg/mL (193-986)
[2023-07-22 09:57] LABS: Erythrocyte Sedimentation Rate 28 mm/hr (0-15)
[2023-07-22] MEDS: PEMBROLIZUMAB 200 MG in SODIUM CHLORIDE 0.9% IV 100 ML IVPB (10:15)
[2023-07-22] MEDS: PEGFILGRASTIM (ONPRO KIT) 6 MG/0.6 ML SYRINGE SUB-Q (13:12)
[2023-07-22] MEDS: HEPARIN SODIUM LOCK FLUSH 500 UNITS/5 ML SYRINGE IV PUSH (13:12)
[2023-07-22 13:25] VITALS: BP 136/75; PULSE 88; RESP 14; TEMP 36.4; O2SAT 97
--- NOTE | 2023-07-22 14:22 | PC.NURSE ---
Patient here for Cycle 1 day 1 of GVD + Keytruda chemo regimen. Education given. Concerns addressed. Labs drawn/reviewed/ok'd to proceed. Chemo regimen administered. SEE MAR. Tolerated well Will return 07/29/23 at 0830 for cycle 1 day 8. Safe exit of hospital per self/ambulatory -MCT here to get.
[2023-07-28 07:21] LABS: Cortisol Random 4.1 mcg/dL (***)
== END 2023-07-22 08:26 | disposition home or self-care (01) ==
LOC: CHSTREATRM 08:26
PROVIDERS: PCP Family Medicine; Visit Provider Internal Medicine Hematology & Oncology
DX: Z51.11 Encounter for antineoplastic chemotherapy (principal); C81.90 Hodgkin lymphoma, unspecified, unspecified site; D70.8 Other neutropenia
CPT/HCPCS: 36415; 36591; 80053; 82533; 82607; 83615; 84443; 85025; 85652; 96367; 96375; 96377; 96411; 96413; 96417; J1100; J2405; J2506; J7050; J7060; J9201; J9271; J9390; Q2050

== ENCOUNTER 2023-07-29 08:34 | Outpatient (CLI) | payer OTHER, SELFPAY ==
[2023-07-29 08:54] VITALS: BP 153/76; PULSE 72; RESP 14; TEMP 36.4; O2SAT 97; BMI 24.5
[2023-07-29 08:56] LABS: Hematocrit 33.3 % (40.0-54.0); Hemoglobin 10.8 g/dL (14.0-18.0); Immature Platelet Fraction Pct 3.2 % (1.0-7.0); Mean Corpuscular HGB Conc 32.4 g/dL (32.0-36.0); Mean Corpuscular Hemoglobin 26.2 pg (27.0-31.0); Mean Corpuscular Volume 80.6 fL (78.0-102.0); Mean Platelet Volume 9.9 fl (8.7-11.0); Platelet Count Result 128 K/mm3 (150-420); Red Blood Count 4.13 M/mm3 (4.70-6.10); Red Cell Distribution Width 15.3 % (11.6-14.4); White Blood Count 18.4 K/mm3 (4.8-10.8)
[2023-07-29 09:04] LABS: Band Neutrophils Percent 6 % (0-6); Eosinophils Absolute Manual 0.18 K/mm3 (0.02-0.5); Eosinophils Percent Manual 1 % (1-6); Lymphocytes Absolute Manual 0.73 K/mm3 (1.1-4.5); Lymphocytes Percent Manual 4 % (18-44); Monocytes Absolute Manual 2.02 K/mm3 (0.1-0.90); Monocytes Percent Manual 11 % (3-9); Neutrophils Absolute Manual 15.27 K/mm3 (1.3-6.7); Neutrophils Percent Manual 77 % (46-73); Total Cells Counted 100
[2023-07-29 09:05] LABS: Metamyelocytes Percent 1 %; Nucleated Red Blood Cells 1 %
[2023-07-29 09:07] LABS: Platelet Estimate Adequate (Adequate)
[2023-07-29 09:10] LABS: Alanine Aminotransferase 36 U/L (16-63); Albumin Level 3.3 g/dL (3.4-5.0); Alkaline Phosphatase 214 U/L (46-116); Anion Gap 11 mmol/L (8-16); Aspartate Amino Transferase 23 U/L (15-37); Bilirubin,Total 0.4 mg/dL (0.00-1.00); Blood Urea Nitrogen 9 mg/dL (7-18); Calcium 9.1 mg/dL (8.5-10.1); Carbon Dioxide 29 mmol/L (21-32); Chloride 103 mmol/L (98-108); Estimated CRCL calculation 96 ml/min; Estimated Glomerular Filt Rate > 60; Glucose 98 mg/dL (70-99); Osmolality Calculated 294 mOsm/kg (285-295); Sodium 143 mmol/L (136-145); Total Protein 6.7 g/dL (6.4-8.2)
[2023-07-29] MEDS: SODIUM CHLORIDE 0.9% IV 250 ML 10 ML IVPB (09:25)
[2023-07-29] MEDS: HEPARIN SODIUM LOCK FLUSH 500 UNITS/5 ML SYRINGE IV PUSH (12:36)
[2023-07-29 12:37] VITALS: BP 143/70; PULSE 88; RESP 14; TEMP 36.6; O2SAT 97
--- NOTE | 2023-07-29 13:30 | PC.NURSE ---
Patient here for cycle 1 day 8 of chemo regimen. Education given. Reports did well last week. All concerns voiced. Labs drawn/reviewed/ok'd for chemo today. Chemo regimen adminsistered SEE SEP. Tolerated well. Will return 08/12/2023 0830 after being seen by Dr. Hansen and ok'd and have new orders. Safe exit of hospital per self/ambulatory.
== END 2023-07-29 08:35 | disposition home or self-care (01) ==
PROVIDERS: Internal Medicine Hematology & Oncology; PCP Family Medicine; Visit Provider Internal Medicine Hematology
DX: Z51.11 Encounter for antineoplastic chemotherapy (principal); C81.90 Hodgkin lymphoma, unspecified, unspecified site; D70.8 Other neutropenia
CPT/HCPCS: 36415; 80053; 85025; 85055; 96367; 96411; 96413; 96417; J1100; J2405; J7050; J7060; J9201; J9390; Q2050

== ENCOUNTER 2023-08-11 14:51 | Outpatient (CLI) | payer OTHER, SELFPAY ==
[2023-08-11 15:16] LABS: Basophils Absolute Auto 0.01 K/mm3 (0.00-0.10); Basophils Percent Auto 0.2 % (0.0-1.0); Eosinophils Absolute Auto 0.21 K/mm3 (0.02-0.50); Hematocrit 34.3 % (40.0-54.0); Hemoglobin 11.1 g/dL (14.0-18.0); Immature Granulocyte Absolute 0.01 K/mm3 (0.00-0.00); Immature Granulocyte Percent A 0.2 % (0.0-0.0); Lymphocytes Absolute Auto 0.48 K/mm3 (1.10-4.50); Lymphocytes Percent Auto 11.4 % (18.0-42.0); Mean Corpuscular HGB Conc 32.4 g/dL (32.0-36.0); Mean Corpuscular Hemoglobin 26.2 pg (27.0-31.0); Mean Corpuscular Volume 80.9 fL (78.0-102.0); Mean Platelet Volume 8.9 fl (8.7-11.0); Monocytes Absolute Auto 0.65 K/mm3 (0.10-0.90); Monocytes Percent Auto 15.5 % (2.0-11.0); Neutrophils Absolute Auto 2.8 K/mm3 (1.7-7.2); Neutrophils Percent Auto 67.7 % (50.0-70.0); Platelet Count Result 311 K/mm3 (150-420); Red Blood Count 4.24 M/mm3 (4.70-6.10); Red Cell Distribution Width 16.1 % (11.6-14.4); White Blood Count 4.2 K/mm3 (4.8-10.8)
[2023-08-11 15:46] LABS: Alanine Aminotransferase 71 U/L (16-63); Albumin Level 3.7 g/dL (3.4-5.0); Alkaline Phosphatase 136 U/L (46-116); Anion Gap 10 mmol/L (8-16); Aspartate Amino Transferase 17 U/L (15-37); Bilirubin,Total 0.3 mg/dL (0.00-1.00); Blood Urea Nitrogen 16 mg/dL (7-18); Calcium 8.6 mg/dL (8.5-10.1); Carbon Dioxide 28 mmol/L (21-32); Chloride 104 mmol/L (98-108); Estimated Glomerular Filt Rate > 60; Glucose 114 mg/dL (70-99); Osmolality Calculated 296 mOsm/kg (285-295); Potassium 4.2 mmol/L (3.5-5.1); Sodium 142 mmol/L (136-145); Total Protein 6.5 g/dL (6.4-8.2)
[2023-08-13 13:12] LABS: Erythropoietin (EPO) 26.3 mIU/mL (2.6-18.5)
== END 2023-08-11 14:52 | disposition home or self-care (01) ==
LOC: CHSLAB 14:52
PROVIDERS: PCP Family Medicine; Visit Provider Internal Medicine Hematology
DX: C81.90 Hodgkin lymphoma, unspecified, unspecified site (principal)
CPT/HCPCS: 36415; 80053; 82668; 85025

== ENCOUNTER 2023-08-12 08:31 | Outpatient (CLI) | payer OTHER, SELFPAY ==
[2023-08-12 08:48] VITALS: BP 121/70; PULSE 92; RESP 14; TEMP 36.5; O2SAT 97; BMI 26.6
[2023-08-12] MEDS: SODIUM CHLORIDE 0.9% IV 250 ML 10 ML IVPB (08:53)
[2023-08-12] MEDS: PEMBROLIZUMAB 200 MG in SODIUM CHLORIDE 0.9% IV 100 ML IVPB (09:30)
[2023-08-12] MEDS: PEGFILGRASTIM (ONPRO KIT) 6 MG/0.6 ML SYRINGE SUB-Q (12:06)
[2023-08-12] MEDS: HEPARIN SODIUM LOCK FLUSH 500 UNITS/5 ML SYRINGE IV PUSH (12:06)
[2023-08-12 12:07] VITALS: BP 126/71; PULSE 92; RESP 14; TEMP 36.6; O2SAT 97
--- NOTE | 2023-08-12 12:25 | PC.NURSE ---
Patient here for Cycle 2 day 1 of Chemo regimen. Education given. Labs reviewed from yesterday's 08/11/23. Patient did see Dr. Hansen in clinic 08/11/23 also. No concerns voiced. Chemo regimen administered. SEE MAR. Tolerated well. Will return 08/19/23 for day 8 chemo regimen. Safe exit of hospital to [facility] van/transportation.
== END 2023-08-12 08:32 | disposition home or self-care (01) ==
LOC: CHSTREATRM 08:33
PROVIDERS: PCP Family Medicine; Visit Provider Internal Medicine Hematology & Oncology
DX: Z51.11 Encounter for antineoplastic chemotherapy (principal); C81.90 Hodgkin lymphoma, unspecified, unspecified site; D70.8 Other neutropenia
CPT/HCPCS: 96367; 96377; 96411; 96413; 96417; J1100; J2405; J2506; J7050; J7060; J9201; J9271; J9390; Q2050

== ENCOUNTER 2023-08-26 08:25 | Outpatient (CLI) | payer OTHER, SELFPAY ==
[2023-08-26 08:48] VITALS: BP 132/85; PULSE 88; RESP 14; TEMP 36.4; O2SAT 97; BMI 25.6
[2023-08-26 08:59] LABS: Hematocrit 41.6 % (40.0-54.0); Hemoglobin 13.4 g/dL (14.0-18.0); Immature Platelet Fraction Pct 5.6 % (1.0-7.0); Mean Corpuscular HGB Conc 32.2 g/dL (32.0-36.0); Mean Corpuscular Volume 83.7 fL (78.0-102.0); Mean Platelet Volume 10.7 fl (8.7-11.0); Platelet Count Result 167 K/mm3 (150-420); Red Blood Count 4.97 M/mm3 (4.70-6.10); Red Cell Distribution Width 17.4 % (11.6-14.4); White Blood Count 5.4 K/mm3 (4.8-10.8)
[2023-08-26] MEDS: SODIUM CHLORIDE 0.9% IV 250 ML 10 ML IVPB (09:00)
[2023-08-26 09:17] LABS: Band Neutrophils Percent 0 % (0-6); Eosinophils Absolute Manual 0.05 K/mm3 (0.02-0.5); Eosinophils Percent Manual 1 % (1-6); Lymphocytes Absolute Manual 0.75 K/mm3 (1.1-4.5); Lymphocytes Percent Manual 14 % (18-44); Monocytes Absolute Manual 0.86 K/mm3 (0.1-0.90); Monocytes Percent Manual 16 % (3-9); Neutrophils Absolute Manual 3.72 K/mm3 (1.3-6.7); Neutrophils Percent Manual 69 % (46-73); Platelet Estimate Adequate (Adequate); Total Cells Counted 100
[2023-08-26 09:20] LABS: Alanine Aminotransferase 65 U/L (16-63); Albumin Level 3.9 g/dL (3.4-5.0); Alkaline Phosphatase 137 U/L (46-116); Anion Gap 8 mmol/L (8-16); Aspartate Amino Transferase 27 U/L (15-37); Bilirubin,Total 0.4 mg/dL (0.00-1.00); Blood Urea Nitrogen 20 mg/dL (7-18); Carbon Dioxide 29 mmol/L (21-32); Chloride 101 mmol/L (98-108); Estimated CRCL calculation 92 ml/min; Estimated Glomerular Filt Rate > 60; Glucose 91 mg/dL (70-99); Osmolality Calculated 288 mOsm/kg (285-295); Potassium 3.8 mmol/L (3.5-5.1); Sodium 138 mmol/L (136-145); Total Protein 7.2 g/dL (6.4-8.2)
[2023-08-26] MEDS: DEXAMETHASONE SOD IVPB (09:26)
[2023-08-26] MEDS: ONDANSETRON IVPB (09:26)
[2023-08-26] MEDS: DEXTROSE 5% IVPB (09:26)
[2023-08-26] MEDS: HEPARIN SODIUM LOCK FLUSH 500 UNITS/5 ML SYRINGE IV PUSH (11:38)
[2023-08-26 11:45] VITALS: BP 126/79; PULSE 88; RESP 14; TEMP 36.7; O2SAT 97
--- NOTE | 2023-08-26 11:47 | PC.NURSE ---
Patient here for cycle 2 day 8 of chemo regimen. Labs drawn/reviewed/ok'd for chemo today. Ongoing education on chemo/cancer continues. Patient without concerns today. Chemo regimen administered. SEE MAR. Tolerated well. Will return 09/14/23 for cycle 3 day [address] Hansen at 09/08/23 doctors appt. Safe exit of hospital per self/ambulatory.
== END 2023-08-26 08:26 | disposition home or self-care (01) ==
PROVIDERS: PCP Family Medicine; Visit Provider Internal Medicine Hematology & Oncology
DX: Z51.11 Encounter for antineoplastic chemotherapy (principal); C81.90 Hodgkin lymphoma, unspecified, unspecified site; D70.8 Other neutropenia
CPT/HCPCS: 36415; 36591; 80053; 85025; 85055; 96367; 96375; 96409; 96411; 96413; 96417; J1100; J2405; J7050; J7060; J9201; J9390; Q2050

== ENCOUNTER 2023-09-08 13:18 | Outpatient (CLI) | payer OTHER, SELFPAY ==
--- NOTE | ~2023-09-08 | XR_ITS ---
EXAMINATION: XR chest 2V DATE: 09/08/2023 13:36 INDICATION: Nasal congestion. Lymphoma. TECHNIQUE: Frontal and lateral views of the chest were obtained. COMPARISON: Chest 2 views 12/14/2022 FINDINGS: There is no pneumonia, pleural effusion, or pneumothorax. The heart size is normal. There i s a right internal jugular port with tip at superior cavoatrial junction. There are old healed right rib fractures. IMPRESSION: 1. No acute cardiopulmonary disease. Reviewed, dictated and finalized at location E. [employer]
[2023-09-08 14:07] LABS: SARS-CoV-2 RNA PCR Positive (Negative)
[2023-09-08 14:09] LABS: Influenza A QL RT-PCR Negative (Negative); Influenza B QL RT-PCR Negative (Negative); RSV RNA, RT-PCR Negative (Negative)
== END 2023-09-08 13:19 | disposition home or self-care (01) ==
LOC: CHSLAB 13:20
PROVIDERS: PCP Family Medicine; Visit Provider Internal Medicine Hematology
DX: R09.81 Nasal congestion (principal)
CPT/HCPCS: 71046; 87637

== ENCOUNTER 2023-09-29 07:38 | Outpatient (CLI) | payer OTHER, SELFPAY ==
[2023-09-29 07:55] VITALS: BMI 27.1
[2023-09-29 07:55] LABS: Hematocrit 41.3 % (40.0-54.0); Hemoglobin 13.4 g/dL (14.0-18.0); Mean Corpuscular HGB Conc 32.4 g/dL (32-36); Mean Corpuscular Hemoglobin 26.7 pg (27.0-31.0); Mean Corpuscular Volume 82.4 fL (78.0-102.0); Mean Platelet Volume 11.5 fl (8.7-11.0); Platelet Count Result 181 K/mm3 (150-420); Red Blood Count 5.01 M/mm3 (4.70-6.10); Red Cell Distribution Width 14.6 % (11.6-14.4)
[2023-09-29 07:57] VITALS: BP 140/81; PULSE 96; RESP 14; TEMP 36.3; O2SAT 97
[2023-09-29] MEDS: SODIUM CHLORIDE 0.9% IV 250 ML 10 ML IVPB (08:00)
[2023-09-29 08:07] LABS: Band Neutrophils Percent 0 % (0-6); Eosinophils Absolute Manual 0.24 K/mm3 (0.02-0.50); Eosinophils Percent Manual 4 % (1-6); Lymphocytes Percent Manual 15 % (18-44); Monocytes Absolute Manual 0.78 K/mm3 (0.1-0.90); Monocytes Percent Manual 13 % (3-9); Neutrophils Absolute Manual 4.08 K/mm3 (1.3-6.7); Neutrophils Percent Manual 68 % (46-73); Platelet Estimate Adequate (Adequate); Total Cells Counted 100
[2023-09-29 08:22] LABS: Alanine Aminotransferase 25 U/L (16-63); Albumin Level 3.9 g/dL (3.4-5.0); Alkaline Phosphatase 86 U/L (46-116); Anion Gap 10 mmol/L (4-12); Aspartate Amino Transferase 14 U/L (15-37); Bilirubin,Total 0.3 mg/dL (0.00-1.00); Blood Urea Nitrogen 16 mg/dL (7-18); Calcium 9.2 mg/dL (8.5-10.1); Carbon Dioxide 30 mmol/L (21-32); Chloride 105 mmol/L (98-108); Estimated CRCL calculation 91 ml/min; Estimated Glomerular Filt Rate > 60; Glucose 121 mg/dL (70-99); Osmolality Calculated 302 mOsm/kg (285-295); Potassium 3.6 mmol/L (3.5-5.1); Sodium 145 mmol/L (136-145); Thyroid Stimulating Hormone 1.22 uIU/mL (0.36-3.74); Total Protein 6.9 g/dL (6.4-8.2)
[2023-09-29] MEDS: DEXAMETHASONE SOD IVPB (08:40)
[2023-09-29] MEDS: [UNRECOGNIZED DRUG - OTHER] IVPB (08:40)
[2023-09-29] MEDS: ONDANSETRON IVPB (08:40)
[2023-09-29] MEDS: PEMBROLIZUMAB 200 MG in SODIUM CHLORIDE 0.9% IV 100 ML IVPB (08:55)
[2023-09-29] MEDS: PEGFILGRASTIM (ONPRO KIT) 6 MG/0.6 ML SYRINGE SUB-Q (11:15)
[2023-09-29] MEDS: HEPARIN SODIUM LOCK FLUSH 500 UNITS/5 ML SYRINGE IV PUSH (11:49)
[2023-09-29 11:51] VITALS: BP 136/79; PULSE 88; RESP 16; TEMP 36.5; O2SAT 97
--- NOTE | 2023-09-29 11:55 | PC.NURSE ---
Patient here for cycle 3 day 1 chemo regimen. On going education given. Blood drawn/reviewed/ok'd to proceed. All concerns voiced answered. Chemo regimen administered see SEP. Tolerated well. Will return 10/06/23 for Cycle 3 day 8 at 0800. Discharge with Neulasta Onpro on left arm and education on. Safe exit of hospital per self/ambulatory.
[2023-10-04 15:30] LABS: Cortisol Random 7.4 mcg/dL (***)
== END 2023-09-29 11:58 | disposition home or self-care (01) ==
LOC: CHSTREATRM 07:39
PROVIDERS: PCP Family Medicine; Visit Provider Internal Medicine Hematology
DX: Z51.11 Encounter for antineoplastic chemotherapy (principal); C81.90 Hodgkin lymphoma, unspecified, unspecified site; D70.8 Other neutropenia
CPT/HCPCS: 36415; 36591; 80053; 82533; 84443; 85025; 96367; 96375; 96377; 96411; 96413; 96417; J1100; J2405; J2506; J7050; J7060; J9201; J9271; J9390; Q2050

== ENCOUNTER 2023-10-05 08:07 | Outpatient (CLI) | payer OTHER, SELFPAY ==
[2023-10-05] MEDS: SODIUM CHLORIDE 0.9% IV 250 ML 10 ML IVPB (08:15)
[2023-10-05 08:28] LABS: Hematocrit 37.8 % (40.0-54.0); Immature Platelet Fraction Pct 3.8 % (1.0-7.0); Mean Corpuscular HGB Conc 31.7 g/dL (32-36); Mean Corpuscular Hemoglobin 26.4 pg (27.0-31.0); Mean Corpuscular Volume 83.3 fL (78.0-102.0); Mean Platelet Volume 11.1 fl (8.7-11.0); Platelet Count Result 91 K/mm3 (150-420); Red Blood Count 4.54 M/mm3 (4.70-6.10); Red Cell Distribution Width 14.4 % (11.6-14.4); White Blood Count 13.1 K/mm3 (4.8-10.8)
[2023-10-05 08:31] VITALS: BMI 26.9
[2023-10-05] MEDS: DEXTROSE 5% IVPB (08:35)
[2023-10-05] MEDS: ONDANSETRON IVPB (08:35)
[2023-10-05] MEDS: DEXAMETHASONE SOD IVPB (08:35)
[2023-10-05 08:45] LABS: Band Neutrophils Percent 3 % (0-6); Eosinophils Absolute Manual 0.13 K/mm3 (0.02-0.50); Eosinophils Percent Manual 1 % (1-6); Lymphocytes Absolute Manual 0.52 K/mm3 (1.1-4.5); Lymphocytes Percent Manual 4 % (18-44); Monocytes Absolute Manual 0.78 K/mm3 (0.1-0.90); Monocytes Percent Manual 6 % (3-9); Neutrophils Absolute Manual 11.65 K/mm3 (1.3-6.7); Neutrophils Percent Manual 86 % (46-73); Platelet Estimate Decreased (Adequate); Total Cells Counted 100
[2023-10-05 08:48] LABS: Alanine Aminotransferase 31 U/L (16-63); Albumin Level 3.3 g/dL (3.4-5.0); Alkaline Phosphatase 176 U/L (46-116); Anion Gap 9 mmol/L (4-12); Aspartate Amino Transferase 16 U/L (15-37); Bilirubin,Total 0.3 mg/dL (0.00-1.00); Blood Urea Nitrogen 13 mg/dL (7-18); Calcium 9.1 mg/dL (8.5-10.1); Carbon Dioxide 30 mmol/L (21-32); Chloride 104 mmol/L (98-108); Estimated CRCL calculation 108 ml/min; Estimated Glomerular Filt Rate > 60; Glucose 113 mg/dL (70-99); Osmolality Calculated 297 mOsm/kg (285-295); Potassium 3.2 mmol/L (3.5-5.1); Sodium 143 mmol/L (136-145); Total Protein 6.4 g/dL (6.4-8.2)
[2023-10-05] MEDS: HEPARIN SODIUM LOCK FLUSH 500 UNITS/5 ML SYRINGE IV PUSH (11:15)
[2023-10-05 11:16] VITALS: BP 126/70; PULSE 88; RESP 14; TEMP 36.4; O2SAT 97
--- NOTE | 2023-10-05 11:18 | PC.NURSE ---
Patient here for cycle 3 day 8 of chemotherapy regimen. Ongoing education given. Labs/drawn/reviewed. Called platelet count to Dr. Hansen who verbally ok's to proceed with chemo today. Chemo regimen administered. SEE MAR. Tolerated well. Will see Dr. Hansen tomorrow in Clinic then has a pet scan scheduled next week. If needs cycle 4 will be on October 26, 2023 at 0800. Safe exit off hospital per self and ambulatory. MCT picking patient up.
== END 2023-10-05 11:23 | disposition home or self-care (01) ==
LOC: CHSTREATRM 08:09
PROVIDERS: PCP Family Medicine; Visit Provider Internal Medicine Hematology
DX: Z51.11 Encounter for antineoplastic chemotherapy (principal); C81.90 Hodgkin lymphoma, unspecified, unspecified site; D70.8 Other neutropenia
CPT/HCPCS: 36415; 80053; 85025; 85055; 96367; 96375; 96411; 96413; 96417; J1100; J2405; J7050; J7060; J9201; J9390; Q2050

== ENCOUNTER 2023-11-04 09:14 | Outpatient (CLI) | payer OTHER, SELFPAY ==
--- NOTE | ~2023-11-04 | MR_ITS ---
EXAMINATION: MR cervical spine wo/w con DATE: 11/04/2023 10:41 INDICATION: Hodgkin's disease. TECHNIQUE: Magnetic resonance imaging (MRI) of the cervical spine was performed without and with 16 m L MultiHance intravenous contrast. COMPARISON: CT cervical spine 04/24/2023 FINDINGS: Bone alignment is normal. There is a pathologic burst fracture of C4 with 3/5 loss of heigh t and retropulsion of bone 3 mm into central spinal canal. There is bone marrow replacement involving C4 and C5 vertebral bodies with contrast enhancement. There is a hemangioma in T1 vertebral body. Th ere is mildly decreased disc height at C3-C4 and C5-C6. The spinal cord signal intensity is normal. T he following disc levels are specifically discussed: C2-C3: The disc does not extend beyond the endplate margin. There is no uncovertebral joint osteoarth ritis. There is mild bilateral facet joint osteoarthritis. There is no neural foraminal stenosis. The re is no central canal stenosis. C3-C4: The disc does not extend beyond the endplate margin. There is mild bilateral uncovertebral jorden nt osteoarthritis. There is mild bilateral facet joint osteoarthritis. There is mild bilateral neural foraminal stenosis. There is moderate central canal stenosis with ventral and dorsal indentation of the cord. C4-C5: There is a central protrusion. There is mild bilateral uncovertebral joint osteoarthritis. The re is mild bilateral facet joint osteoarthritis. There is mild bilateral neural foraminal stenosis. T here is mild central canal stenosis. C5-C6: There is a central protrusion. There is no uncovertebral joint osteoarthritis. There is modera te right and mild left facet joint osteoarthritis. There is no neural foraminal stenosis. There is mi ld central canal stenosis. C6-C7: There is a central protrusion. There is no uncovertebral joint osteoarthritis. There is no fac et joint osteoarthritis. There is no neural foraminal stenosis. There is no central canal stenosis. C7-T1: The disc does not extend beyond the endplate margin. There is no uncovertebral joint osteoarth ritis. There is moderate bilateral facet joint osteoarthritis. There is mild lateral neural foraminal stenosis. There is no central canal stenosis. IMPRESSION: 1. Bone marrow placement and C4 and C5 vertebral bodies, consistent with metastatic disease. 2. Pathologic burst fracture at C4 with worsened height loss from 04/24/23. 3. Mild cervical spondylosis. Reviewed, dictated and finalized at location E. IMPRESSION: 1. Bone marrow placement and C4 and C5 vertebral bodies, consistent with metast atic disease. 2. Pathologic burst fracture at C4 with worsened height loss from 04/24/23. 3. Mild cervical spondylosis.
== END 2023-11-04 09:15 | disposition home or self-care (01) ==
LOC: CHSIMG 09:15
PROVIDERS: PCP Family Medicine; Visit Provider Internal Medicine Hematology
DX: C81.90 Hodgkin lymphoma, unspecified, unspecified site (principal); M84.48XA Pathological fracture, other site, initial encounter for fracture; M43.02 Spondylolysis, cervical region
CPT/HCPCS: 72156; A9577

== ENCOUNTER 2024-05-03 09:34 | Emergency (ER) | payer OTHER, SELFPAY ==
--- NOTE | ~2024-05-03 | CT_ITS ---
CT lumbar spine wo con Ordering provider: Erick Horton MD History: 34 years Male with . low back pain. and HL with Mets . Comparison: None. Technique: CT lumbar spine without contrast. Automated exposure control and iterative reconstruction technique were employed. The dose-length product was 471.24 mGy-cm. FINDINGS: VERTEBRAE: Sclerotic changes seen in T11, L2, L3, L4 and S1. Normal height and alignment. No subluxat ion or visible acute fracture. Small bony fragment adjacent to the spinous process of L5 most likely chronic fracture. Sclerotic and destructive changes seen in the left iliac and right iliac bones some changes are also seen in the sacrum. Fracture in the left transverse process of L3 which may be acut e or chronic. DISC SPACES: Well maintained. T12-L1: No stenosis. L1-L2: No stenosis. L2-L3: No stenosis. L3-L4: No stenosis. Mild diffuse disc bulge. L4-L5: No stenosis. Mild diffuse disc bulge. L5-S1: No stenosis. Diffuse disc bulge with bilateral narrowing of the foramina and the root lonny autumn. PARASPINOUS SOFT TISSUES: Mild atheromatous disease of the abdominal aorta. IMPRESSION: Multilevel sclerotic changes with destructive areas suggestive of metastatic lesions. Diffuse disc bulge at the level of L5-S1 with bilateral narrowing of the foramina and the root compre ssion. Reviewed, dictated and finalized at location A. IMPRESSION: Multilevel sclerotic changes with destructive areas suggestive of metastatic le sions. Diffuse disc bulge at the level of L5-S1 with bilateral narrowing of the forami na and the root compression.
--- NOTE | ~2024-05-03 | CT_ITS ---
EXAMINATION: CT chest abdomen pelvis w con DATE: 05/03/2024 11:59 INDICATION: Non-Hodgkin's lymphoma. Low back pain. TECHNIQUE: Computed tomography (CT) of the chest, abdomen, and pelvis was performed with 100 mL Omnip aque-350 intravenous contrast. Automated exposure control and iterative reconstruction technique were employed. The dose-length product was 418.90 mGy-cm. COMPARISON: CT abdomen pelvis dated 07/11/[address] chest dated 02/24/2022 FINDINGS: CHEST CT: New 12 x 9 mm nodule and 4 mm satellite nodule at the anterior segment of the right upper lobe. Addit ional new 8 mm nodule with 3 small satellite nodules measuring up to 4 mm in the superior segment of the right lower lobe. No pneumonia, pulmonary edema, pleural effusion or pneumothorax. Heart size is normal. Decreased size of a now very small pericardial effusion. Thoracic aorta is normal in caliber with no dissection. There is a small amount residual stranding at the site of the prior anterior medi astinal lymphadenopathy with response to treatment of reported non-Hodgkin's lymphoma. Right internal jugular central venous port catheter with distal tip at the superior cavoatrial junction. There are couple old healed right rib fractures. There are couple new mixed lytic and sclerotic lesions involvi ng the or T7 and T12 vertebral bodies consistent with progression of metastatic disease or lymphoma. ABDOMEN/PELVIS CT: Liver, gallbladder, pancreas, bilateral adrenal glands and kidneys are normal. There are multiple new hypodense nodules in the spleen, the largest measuring up to 1.7 cm in maximal diameter. Bowels incl uding the appendix are normal. Bladder is normal. No free intraperitoneal gas or fluid. There is bee n interval decrease in size of many of the previously mildly enlarged retroperitoneal lymph nodes in the abdomen and pelvis. There has however been significant interval increase in size of a now 4.6 x 1 .9 x 2.0 cm, previously 2.7 x 1.0 x 1.1 cm right inguinal lymph node and a previously 10 x 9 mm curre ntly 16 x 12 mm (lymph node along the cephalad margin of the left renal vein. There are numerous scat tered lytic and mixed lytic and sclerotic bone lesions in the lumbar spine and pelvis, some of which are unchanged but several of which are new or have significantly increased in size including at the L 2 vertebral body and in the sacrum and bilateral posterior iliac spines consistent with progression o f metastatic disease versus lymphoma. There appears be a prior lucent biopsy tract at the left skimmer reverberatory ior iliac spine and would correlate with results from the prior biopsy. IMPRESSION: 1. Significant interval decrease in size and number of the majority of previously seen enlarged lymph nodes in the chest, abdomen and pelvis but with 2 enlarging lymph nodes in the left para-aortic alexa on and at the right groin which could be reactive or progression of reported lymphoma. 2. A couple new pulmonary nodules measuring 12 x 9 mm in the right upper lobe and 8 mm in the superio r segment of the right lower lobe with a few satellite nodules which could be infectious/inflammatory or malignant. 3. Multiple new hypoenhancing splenic lesions the largest measuring up to 1.7 cm similarly could be r elated to granulomatous disease or malignancy/lymphoma. 4. Interval progression of scattered lytic and sclerotic bone lesions consistent with progression of metastatic disease or lymphoma. Recommend correlation with results from an apparent prior left iliac bone marrow biopsy. Reviewed, dictated and finalized at location A. IMPRESSION: 1. Significant interval decrease in size and number of the majority of previous ly seen enlarged lymph nodes in the chest, abdomen and pelvis but with 2 enlarg ing lymph nodes in the left para-aortic region and at the right groin which cou ld be reactive or progression of reported lymphoma. 2. A couple new pulmonary nodules measuring 12 x 9 mm in the right upper lobe a nd 8 mm in the superior segment of the right lower lobe with a few satellite no dules which could be infectious/inflammatory or malignant. 3. Multiple new hypoenhancing splenic lesions the largest measuring up to 1.7 c m similarly could be related to granulomatous disease or malignancy/lymphoma. 4. Interval progression of scattered lytic and sclerotic bone lesions consisten t with progression of metastatic disease or lymphoma. Recommend correlation wit h results from an apparent prior left iliac bone marrow biopsy.
[2024-05-03 09:38] VITALS: BP 118/72; PULSE 53; RESP 18; TEMP 36.6; O2SAT 99
--- NOTE | 2024-05-03 09:42 | ED_ITS ---
HPI - Back Pain/Injury General Chief Complaint: Back Pain/Injury Stated Complaint: back pain Source: patient Mode of arrival: ambulatory Limitations: no limitations History of Present Illness HPI Narrative: 34-year-old male with a history of anxiety/depression, ADHD, marijuana/amphetamine use, non-Hodgkin's lymphoma diagnosed in 12/01/2021 involving neck, mediastinum and abdominal lymph nodes with multiple bone metastatic lesions including involvement of C4/C5 vertebrae, chronic low back pain presents to the ED with 2 day history of -- lower back pain. No radiation of the pain. No bladder or bowel involvement. No motor or sensory deficit of the lower extremities. No history of recent trauma. he called EMS who administered 30 mg of IV Toradol with improvement in back pain. The patient is scheduled to get a PET scan today afternoon. MD elicited complaint: back pain Pertinent past history: prior back pain Onset (ago): day(s) ( Two days) Timing: constant Severity: severe Similar Symptoms Previously: Yes Quality: aching Location: lumbar spine Radiation: none Exacerbating factors: movement Relieving factors: immobilization Associated symptoms: denies other symptoms Related Data Allergies Allergy/AdvReac Type Severity Reaction Status Date / Time NKDA,NO LATEX Allergy Mild Unknown Uncoded 03/09/24 10:30 Review of Systems Review of Systems: All systems reviewed & are unremarkable except as noted in HPI and below Constitutional: Constitutional: Reports as per HPI and Reports no additional constitutional complaints Eyes: Eyes: Reports as per HPI and Reports no additional eye complaints ENT: Reports system reviewed and no additional complaints, except as documented and Reports as per HPI Cardiovascular: Cardiovascular: Reports as per HPI and Reports no additional cardiovascular complaints Respiratory: Respiratory: Reports as per HPI and Reports no additional respiratory complaints Gastrointestinal: Gastrointestinal: Reports as per HPI and Reports no additi onal gastrointestinal complaints Genitourinary: Genitourinary: Reports no additional male genitourinary complaints and Reports as per HPI Musculoskeletal: Musculoskeletal: Reports no additional musculoskeletal complaints and Reports back pain Integumentary/Breasts: Skin/Breast: Reports system reviewed and no additional complaints, except as docu and Reports as per HPI Neurologic: Reports system reviewed and no additional complaints, except as documented and Reports as per HPI Psychiatric: Psychiatric: Reports no additional psychiatric complaints and Reports as per HPI Endocrine: Endocrine: Reports no additional endocrine complaints and Reports as per HPI Hematologic/Lymphatic: Hematologic/Lymphatic: Reports no additional hematologic/lymphatic complaints and Reports as per HPI Allergic/Immunologic: Allergic/Immunologic: Reports no additional allergic/immunologic complaints and Reports as per HPI COUNTS INCLUDE 234 BEDS AT THE [facility] Past Medical History Medical History Abdominal pain ADHD Anxiety Cellulitis Widespread metastatic malignant neoplastic disease Surgical History Surgical History H/O adenoidectomy H/O hernia repair Family History Family History Mother Non-Hodgkin lymphoma Depression Social History Social History Smoking status: Current some day smoker Tobacco type: cigarettes Alcohol intake: never Substance use: current Substance use type: marijuana and methamphetamine Lack of Transportation: YES Lack of Food: Sometimes True Current Housing: I Have Housing Concerned About Future Housing: No Difficulty Paying Gas/Electric Bills: YES Difficulty Paying for Meds: YES Currently Unemployed: YES Education: High School Diploma/GED Difficulty w/ Childcare or Family Care: YES Living arrangements: with family Occupation/Education: unemployed Gender identity (if verbalized by the patient): Male Exam Narrative: Vitals are stable. Afebrile Const: General: ill appearing Nutritional Appearance: well nourished Orientation/consciousness: patient oriented x3 Limitations: no limitations HENMT: Head: normal to inspection Ears: external ears normal Face/Nose/Sinus: Normal external nose present Face and sinus: normal facial exam Mouth: Yes Normal oral and palatal mucosa present Throat: posterior oropharynx normal Eyes: Conjunctivae: conjunctivae normal Pupils: Equal, round and reactive pupils present EOM: EOMs intact bilaterally Direct Ophthalmoscopy: no photophobia Neck: Neck: normal visual inspection, no lymphadenopathy and no meningeal signs Chest: Chest palpation & inspection: normal inspection of the chest Resp: Effort & Inspection: normal respiratory effort Auscultation: clear to auscultation bilaterally Cardio: Rate: regular rate Rhythm: regular rhythm GI: Auscultation: normal bowel sounds Other: no tenderness/ rigidity / rebound. : General: Yes no CVA tenderness Back/Spine/Pelvis: Back: no CVA tenderness Other: No spinal tenderness noted. Straight leg raising test is negative. Unable to elicit knee / ankle jerks. No sensory or motor loss she Skin: General skin exam: normal color Rashes: no rashes Wounds: no wounds Neuro: General: patient oriented x3, moves all extremities, no meningeal signs and no focal motor deficits Cranial nerves: Yes Nystagmus not present Speech: normal speech Gait exam (Neuro): Normal gait present Extrem: General: normal to inspection and no clubbing, cyanosis or edema Psych: Mental Status: mental status grossly normal Affect: normal affect Attitude: cooperative Course Course Emergency Course: non-Hodgkin's lymphoma with metastatic this to bone. CT of the chest/abdomen/ pelvis revealed enlarging lymph nodes in the left para-aortic, right groin with pulmonary nodules, new hypoenhancing lesions in this clean and increase in the light take and sclerotic involvement in the lumbar spine and iliac bones. The patient tested negative for COVID. ESR was noted to be 48. Low back pain-- CT of the lumbar spine reveals sclerotic changes of T12, L2, L3, L4 and S1. Sclerotic and destructive changes seen in the left iliac and right iliac bones and sacrum. Fracture of the transverse process of L3 patient may be acute or chronic. Disc bulge at the level of L5/S1 with bilateral narrowing of the foramen and root compression, no bladder or bowel involvement. Vital Signs Vital signs: Vital Signs Temperature 36.6 C 05/03/24 09:38 Pulse Rate 53 L 05/03/24 09:38 Respiratory Rate 18 05/03/24 09:38 Blood Pressure 118/72 05/03/24 09:38 Pulse Oximetry 99 05/03/24 09:38 Oxygen Delivery Room Air 05/03/24 09:38 Temperature 36.9 C 05/03/24 10:15 Pulse Rate 87 05/03/24 10:15 Respiratory Rate 20 05/03/24 10:15 Blood Pressure 132/75 05/03/24 10:15 Pulse Oximetry 98 05/03/24 10:15 Oxygen Delivery Room Air 05/03/24 10:15 MDM - Back Pain/Injury MDM Narrative Medical decision making narrative: non Hodgkins lymphoma with metastatic lesions. 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 Advised to schedule an outpatient appointment with Dr. Hansen. Low back pain-- will discharge the patient with [place]. Differential Diagnosis Differential diagnosis: Likely lumbar radiculopathy and strain of lumbar region Medical Records Attestation: I reviewed the patient's medical records. Lab Data Attestation: I reviewed the patient's lab results. 05/03/24 11:16 05/03/24 11:16 Labs: Lab Results 05/03/24 05/03/24 05/03/24 Range/Units 11:13 11:16 12:55 WBC 8.0 (4.8-10.8) K/mm3 RBC 4.49 L (4.70-6.10) M/mm3 Hgb 11.6 L (14.0-18.0) g/dL Hct 36.2 L (40.0-54.0) % MCV 80.6 (78.0-102.0) fL MCH 25.8 L (27.0-31.0) pg MCHC 32.0 (32-36) g/dL RDW 12.9 (11.6-14.4) % Plt Count 236 (150-420) K/mm3 MPV 8.8 (8.7-11.0) fl Immature Gran % (Auto) 0.4 H (0.0-0.0) % Neut % (Auto) 74.2 H (50.0-70.0) % Lymph % (Auto) 6.0 L (18.0-42.0) % Cocke % (Auto) 13.2 H (2.0-11.0) % Eos % (Auto) 5.9 (1.0-6.0) % Baso % (Auto) 0.3 (0.0-1.0) % Lymph # (Auto) 0.48 L (1.10-4.50) K/mm3 Cocke # (Auto) 1.05 H (0.10-0.90) K/mm3 Eos # (Auto) 0.47 (0.02-0.50) K/mm3 Baso # (Auto) 0.02 (0.00-0.10) K/mm3 Abs Immat Gran (auto) 0.03 H (0.00-0.00) K/mm3 Absolute Neuts (auto) 5.92 (1.70-7.20) K/mm3 Absolute Nucleated RBC 0.00 (0.00-0.00) K/mm3 Nucleated RBC % 0.0 (0-0.0) % ESR 48 H (0-15) mm/hr Sodium 140 (136-145) mmol/L Potassium 3.5 (3.5-5.1) mmol/L Chloride 102 (98-108) mmol/L Carbon Dioxide 28 (21-32) mmol/L Anion Gap 10 (4-12) mmol/L BUN 14 (7-18) mg/dL Creatinine 1.03 (0.70-1.30) mg/dL Estim Creat Clear Calc 80 ml/min Estimated GFR > 60 (59 - ) Glucose 107 H (70-99) mg/dL Calculated Osmolality 290 (285-295) mOsm/kg Uric Acid 4.8 (3.5-7.2) mg/dL Calcium 8.8 (8.5-10.1) mg/dL Magnesium 2.2 (1.8-2.4) mg/dL Total Bilirubin 0.3 (0.00-1.00) mg/dL AST < 10 L (15-37) U/L ALT 10 L (16-63) U/L Alkaline Phosphatase 123 H (46-116) U/L Total Protein 6.9 (6.4-8.2) g/dL Albumin 2.6 L (3.4-5.0) g/dL Influenza A (RT-PCR) Negative (Negative) Influenza B (RT-PCR) Negative (Negative) RSV (RT-PCR) Negative (Negative) SARS-CoV-2 RNA (RT-PCR) Negative (Negative) Discharge Plan Discharge Clinical Impression: Widespread metastatic malignant neoplastic disease, Lumbar disc prolapse with compression radiculopathy Chronic low back pain Qualifiers: Back pain laterality: midline Sciatica presence: without sciatica Qualified Code(s): M54.50 - Low back pain, unspecified Patient Disposition: Home, Self-Care Condition: Stable Instructions: Antibiotic Form, Chronic Back Pain (DC), Bone Metastasis (ED) Additional Instructions: schedule an appointment to see Dr. Lord Patient Language: Czech Prescriptions: New hydrocodone-acetaminophen 5-325 mg tablet 1 tablet PO Q8H PRN (Reason: pain) Qty: 20 0RF Follow-up/Referrals: UNKNOWN,DOCTOR [Non-Staff] - Time of Disposition: 14:22
--- NOTE | 2024-05-03 10:02 | PC.NURSE ---
pt to xray via wheelchair.
--- NOTE | 2024-05-03 10:10 | PC.NURSE ---
pt return to room via wheelchair, call farias in reach.
[2024-05-03 10:15] VITALS: BP 132/75; PULSE 87; RESP 20; TEMP 36.9; O2SAT 98
[2024-05-03 11:21] LABS: Basophils Absolute Auto 0.02 K/mm3 (0.00-0.10); Basophils Percent Auto 0.3 % (0.0-1.0); Eosinophils Absolute Auto 0.47 K/mm3 (0.02-0.50); Eosinophils Percent Auto 5.9 % (1.0-6.0); Hematocrit 36.2 % (40.0-54.0); Hemoglobin 11.6 g/dL (14.0-18.0); Immature Granulocyte Absolute 0.03 K/mm3 (0.00-0.00); Immature Granulocyte Percent A 0.4 % (0.0-0.0); Lymphocytes Absolute Auto 0.48 K/mm3 (1.10-4.50); Mean Corpuscular Hemoglobin 25.8 pg (27.0-31.0); Mean Corpuscular Volume 80.6 fL (78.0-102.0); Mean Platelet Volume 8.8 fl (8.7-11.0); Monocytes Absolute Auto 1.05 K/mm3 (0.10-0.90); Monocytes Percent Auto 13.2 % (2.0-11.0); Neutrophils Absolute Auto 5.92 K/mm3 (1.70-7.20); Neutrophils Percent Auto 74.2 % (50.0-70.0); Platelet Count Result 236 K/mm3 (150-420); Red Blood Count 4.49 M/mm3 (4.70-6.10); Red Cell Distribution Width 12.9 % (11.6-14.4)
[2024-05-03 11:37] LABS: Alanine Aminotransferase 10 U/L (16-63); Albumin Level 2.6 g/dL (3.4-5.0); Alkaline Phosphatase 123 U/L (46-116); Anion Gap 10 mmol/L (4-12); Aspartate Amino Transferase < 10 U/L (15-37); Bilirubin,Total 0.3 mg/dL (0.00-1.00); Blood Urea Nitrogen 14 mg/dL (7-18); Calcium 8.8 mg/dL (8.5-10.1); Carbon Dioxide 28 mmol/L (21-32); Chloride 102 mmol/L (98-108); Estimated CRCL calculation 80 ml/min; Estimated Glomerular Filt Rate > 60; Glucose 107 mg/dL (70-99); Magnesium 2.2 mg/dL (1.8-2.4); Osmolality Calculated 290 mOsm/kg (285-295); Potassium 3.5 mmol/L (3.5-5.1); Sodium 140 mmol/L (136-145); Total Protein 6.9 g/dL (6.4-8.2); Uric Acid 4.8 mg/dL (3.5-7.2)
--- NOTE | 2024-05-03 11:50 | PC.NURSE ---
pt to xray via wheelchair
[2024-05-03] MEDS: LACTATED RINGERS 500 ML 999 ML IV CONT (12:09)
--- NOTE | 2024-05-03 12:27 | PC.NURSE ---
pt returned to room after ct. 1229 pt sleeping in room, call farias in reach, no urine at this time. awaiting ct results.
[2024-05-03 13:39] LABS: SARS-CoV-2 RNA PCR Negative (Negative)
[2024-05-03 13:40] LABS: Influenza A QL RT-PCR Negative (Negative); Influenza B QL RT-PCR Negative (Negative); RSV RNA, RT-PCR Negative (Negative)
[2024-05-03 14:05] LABS: Erythrocyte Sedimentation Rate 48 mm/hr (0-15)
[2024-05-03 14:33] VITALS: BP 120/70; PULSE 56; RESP 18; TEMP 36.7; O2SAT 100
== END 2024-05-03 14:30 | disposition home or self-care (01) ==
PROVIDERS: Emergency Provider Internal Medicine Critical Care Medicine; PCP Family Medicine
DX: C85.91 Non-Hodgkin lymphoma, unspecified, lymph nodes of head, face, and neck (principal); C79.51 Secondary malignant neoplasm of bone; M51.16 Intervertebral disc disorders with radiculopathy, lumbar region; F17.210 Nicotine dependence, cigarettes, uncomplicated; Z20.822 Contact with and (suspected) exposure to COVID-19
CPT/HCPCS: 36415; 71260; 72131; 74177; 80053; 83735; 84550; 85025; 85652; 87637; 96360; 99284; J7120; Q9967

== ENCOUNTER 2024-05-10 09:47 | Outpatient (CLI) | payer OTHER, SELFPAY ==
[2024-05-10 10:00] VITALS: BP 132/74; PULSE 92; RESP 14; TEMP 36.4; O2SAT 98; BMI 25.0
[2024-05-10] MEDS: HEPARIN SODIUM LOCK FLUSH 500 UNITS/5 ML SYRINGE IV PUSH (10:05)
== END 2024-05-10 09:48 | disposition home or self-care (01) ==
PROVIDERS: PCP Family Medicine; Visit Provider Internal Medicine Hematology
DX: Z45.2 Encounter for adjustment and management of vascular access device (principal); C81.90 Hodgkin lymphoma, unspecified, unspecified site
CPT/HCPCS: 96523

== ENCOUNTER 2024-05-29 08:13 | Outpatient (CLI) | payer OTHER, SELFPAY ==
[2024-05-29 08:23] VITALS: BMI 26.3
[2024-05-29 08:29] VITALS: BP 136/64; PULSE 68; RESP 14; TEMP 36.6; O2SAT 96
[2024-05-29 08:29] LABS: Basophils Absolute Auto 0.01 K/mm3 (0.00-0.10); Basophils Percent Auto 0.1 % (0.0-1.0); Eosinophils Absolute Auto 0.22 K/mm3 (0.02-0.50); Eosinophils Percent Auto 2.9 % (1.0-6.0); Hematocrit 37.8 % (40.0-54.0); Hemoglobin 12.3 g/dL (14.0-18.0); Immature Granulocyte Absolute 0.04 K/mm3 (0.00-0.00); Immature Granulocyte Percent A 0.5 % (0.0-0.0); Lymphocytes Absolute Auto 0.46 K/mm3 (1.10-4.50); Lymphocytes Percent Auto 6.1 % (18.0-42.0); Mean Corpuscular HGB Conc 32.5 g/dL (32-36); Mean Corpuscular Hemoglobin 26.2 pg (27.0-31.0); Mean Corpuscular Volume 80.4 fL (78.0-102.0); Mean Platelet Volume 8.9 fl (8.7-11.0); Monocytes Absolute Auto 0.89 K/mm3 (0.10-0.90); Monocytes Percent Auto 11.7 % (2.0-11.0); Neutrophils Absolute Auto 5.97 K/mm3 (1.70-7.20); Neutrophils Percent Auto 78.7 % (50.0-70.0); Platelet Count Result 256 K/mm3 (150-420); Red Cell Distribution Width 14.5 % (11.6-14.4); White Blood Count 7.6 K/mm3 (4.8-10.8)
[2024-05-29] MEDS: SODIUM CHLORIDE 0.9% IV 250 ML 10 ML IVPB (08:30)
[2024-05-29] MEDS: ACETAMINOPHEN 325 MG TABLET 650 MG PO (08:50)
[2024-05-29] MEDS: FAMOTIDINE 20 MG/ISO 50 ML 20 MG/50 ML BAG 150 MG IVPB (08:51)
[2024-05-29 08:54] LABS: Alanine Aminotransferase 25 U/L (16-63); Albumin Level 2.9 g/dL (3.4-5.0); Alkaline Phosphatase 129 U/L (46-116); Anion Gap 8 mmol/L (4-12); Aspartate Amino Transferase 16 U/L (15-37); Bilirubin,Total 0.2 mg/dL (0.00-1.00); Blood Urea Nitrogen 15 mg/dL (7-18); Calcium 9.2 mg/dL (8.5-10.1); Carbon Dioxide 29 mmol/L (21-32); Chloride 102 mmol/L (98-108); Estimated CRCL calculation 92 ml/min; Estimated Glomerular Filt Rate > 60; Glucose 109 mg/dL (70-99); Osmolality Calculated 289 mOsm/kg (285-295); Potassium 3.7 mmol/L (3.5-5.1); Sodium 139 mmol/L (136-145); Thyroid Stimulating Hormone 1.36 uIU/mL (0.36-3.74); Total Protein 6.9 g/dL (6.4-8.2)
[2024-05-29] MEDS: diphenhydrAMINE HCl INJ 50 MG/ML VIAL 25 MG IV PUSH (09:15)
[2024-05-29] MEDS: ONDANSETRON INJ 16 MG in SODIUM CHLORIDE 0.9% IV 50 ML 150 MG IV PUSH (09:20)
[2024-05-29] MEDS: HYDROCORTISONE SODIUM SUCCINATE 100 MG/2 ML VIAL IV PUSH (09:39)
[2024-05-29] MEDS: BRENTUXIMAB VEDOTIN IVPB (09:59)
[2024-05-29] MEDS: SODIUM CHLORIDE 0.9% IVPB ×2 (09:59→10:29)
[2024-05-29] MEDS: NIVOLUMAB IVPB (10:29)
[2024-05-29] MEDS: HEPARIN SODIUM LOCK FLUSH 500 UNITS/5 ML SYRINGE IV PUSH (11:43)
[2024-05-29 11:58] VITALS: BP 141/70; PULSE 64; RESP 14; TEMP 36.4; O2SAT 97
--- NOTE | 2024-05-29 12:03 | PC.NURSE ---
Patient tolerated treatment Brentuximab + Nivolumab well. Awaiting [facility] bus for transportation.
[2024-05-31 05:33] LABS: Cortisol Random 10.6 mcg/dL
== END 2024-05-29 08:14 | disposition home or self-care (01) ==
PROVIDERS: PCP Family Medicine; Visit Provider Internal Medicine Hematology & Oncology
DX: Z51.11 Encounter for antineoplastic chemotherapy (principal); C81.90 Hodgkin lymphoma, unspecified, unspecified site; D70.8 Other neutropenia
CPT/HCPCS: 36415; 36591; 80053; 82533; 84443; 85025; 96367; 96375; 96413; 96417; A9270; J1200; J1720; J2405; J7050; J9042; J9299

== ENCOUNTER 2024-05-31 23:16 | Emergency (ER) | payer OTHER, SELFPAY ==
[2024-05-31 23:18] VITALS: BP 134/91; PULSE 69; RESP 18; TEMP 36.6; O2SAT 96
--- NOTE | 2024-05-31 23:34 | ED_ITS ---
HPI - Back Pain/Injury General Chief Complaint: Back Pain/Injury Stated Complaint: back pain Time Seen by Provider: 05/31/24 23:30 Source: patient and EMS Mode of arrival: ambulatory Limitations: no limitations History of Present Illness HPI Narrative: 34-year-old male with a history of anxiety / depression, ADHD, polysubstance abuse in bracket marijuana/ amphetamine), non-Hodgkin's lymphoma diagnosed in November of 2021 involving the neck, mediastinum and abdominal lymph nodes with multiple metastatic lesions involving C4-C5 vertebrae, chronic low back pain was seen in the ED on 05/03/2024. The patient had a CT of the lumbar spine which revealed Sclerotic changes in T12-L2 L3-L4 and S1. He had sclerotic and destructive changes in the left iliac and right iliac bones and sacrum. He had a fracture of the transverse process of L3. There was a disc bulge at L5-S1 with bilateral narrowing of foraminal with root compression. Contacted Dr. Hansen who advised getting a CT of the chest/abdomen /pelvis. The patient was noted to have 2 enlarging lymph nodes in the left para-aortic and right groin along with pulmonary nodules, multiple hypoenhancing splenic lesions and progression of the scattered lytic and sclerotic lesions consistent with progression of the metastatic disease. Subsequently the patient went to [facility], hematology/ oncology department and was noted to have type B symptoms along with clinical relapse . Patient was recommended to get brentuximab and nivolumab and started on steroids. Patient was started on chemo on 05/29/2024. Patient was prescribed Dilaudid 2 mg and Decadron on 05/10/2024. he received 120 tablets. He ran out of his pain medications. -- the patient presents to us with ongoing low back pain. The patient is scheduled to get an MRI of the lumbar spine on 06/03/2024. The pain is similar to his usual pain. The pain radiates back of his left buttock and thigh. -- Chronic right eye conjunctivitis the possibility of lymphomatous involvement. The patient is scheduled to see an software testing specialist. MD elicited complaint: back pain Pertinent past history: prior back pain Onset (ago): day(s) Timing: constant Severity: severe Similar Symptoms Previously: Yes Quality: aching Location: lumbar spine Radiation: left upper leg Exacerbating factors: movement Relieving factors: immobilization Associated symptoms: other ( Chronic eye conjunctivitis) Treatments prior to arrival: other ( patient is on Decadron and chemo) Work related injury: No Related Data Allergies Allergy/AdvReac Type Severity Reaction Status Date / Time NKDA,NO LATEX Allergy Mild Unknown Uncoded 05/31/24 23:25 Review of Systems Review of Systems: All systems reviewed & are unremarkable except as noted in HPI and below Constitutional: Constitutional: Reports as per HPI and Reports no additional constitutional complaints Eyes: Eyes: Reports as per HPI and Reports no additional eye complaints ENT: Reports system reviewed and no additional complaints, except as documente d and Reports as per HPI Cardiovascular: Cardiovascular: Reports as per HPI and Reports no additional cardiovascular complaints Respiratory: Respiratory: Reports as per HPI and Reports no additional respiratory complaints Gastrointestinal: Gastrointestinal: Reports as per HPI and Reports no additional gastrointestinal complaints Genitourinary: Genitourinary: Reports no additional male genitourinary complaints and Reports as per HPI Musculoskeletal: Musculoskeletal: Reports back pain Comments: worsening of his chronic low back pain which radiates down the back of his left buttock and thigh. Integumentary/Breasts: Skin/Breast: Reports system reviewed and no additional complaints, except as docu and Reports as per HPI Neurologic: Reports system reviewed and no additional complaints, except as documented and Reports as per HPI Psychiatric: Psychiatric: Reports no additional psychiatric complaints and Reports as per HPI Endocrine: Endocrine: Reports no additional endocrine complaints and Reports as per HPI Hematologic/Lymphatic: Hematologic/Lymphatic: Reports no additional hematologic/lymphatic complaints and Reports as per HPI Allergic/Immunologic: Allergic/Immunologic: Reports no additional allergic/immunologic complaints and Reports as per HPI [facility] Past Medical History Medical History Abdominal pain ADHD Anxiety Cellulitis Widespread metastatic malignant neoplastic disease Surgical History Surgical History H/O adenoidectomy H/O hernia repair Family History Family History Mother Non-Hodgkin lymphoma Depression Social History Social History Smoking status: Current some day smoker Tobacco type: cigarettes Alcohol intake: never Substance use: current Substance use type: marijuana and methamphetamine Lack of Transportation: YES Lack of Food: Sometimes True Current Housing: I Have Housing Concerned About Future Housing: No Difficulty Paying Gas/Electric Bills: YES Difficulty Paying for Meds: YES Currently Unemployed: YES Education: High School Diploma/GED Difficulty w/ Childcare or Family Care: YES Living arrangements: with family Occupation/Education: unemployed Gender identity (if verbalized by the patient): Male Exam Narrative: Vitals are stable. Patient is saturating 96% on room air. Afebrile. Const: General: ill appearing Orientation/consciousness: patient oriented x3 Limitations: no limitations HENMT: Head: normal to inspection Ears: external ears normal Face/Nose/Sinus: Normal external nose present Face and sinus: normal facial exam Mouth: Yes Normal oral and palatal mucosa present Throat: posterior oropharynx normal Eyes: Conjunctivae: conjunctivae normal ( Right eye conjunctivitis) Pupils: Equal, round and reactive pupils present EOM: EOMs intact bilaterally Direct Ophthalmoscopy: no photophobia Neck: Neck: normal visual inspection and no lymphadenopathy Chest: Chest palpation & inspection: normal inspection of the chest Resp: Effort & Inspection: normal respiratory effort Auscultation: clear to auscultation bilaterally Cardio: Rate: regular rate Rhythm: regular rhythm GI: Auscultation: normal bowel sounds Other: no tenderness/ rigidity /rebound. : General: Yes no CVA tenderness Back/Spine/Pelvis: Back: no CVA tenderness Other: Pain in the lower back which radiates to the left buttocks and thigh. Straight leg raising test is negative on both sides. No gross motor or sensory deficit. No bladder or bowel involvement. Skin: General skin exam: normal color Rashes: no rashes Wounds: no wounds Neuro: General: patient oriented x3, moves all extremities, no meningeal signs, no focal motor deficits and CN's II-XI intact bilaterally Cranial nerves: Yes Nystagmus not present Speech: normal speech Gait exam (Neuro): Normal gait present Extrem: General: normal to inspection and no clubbing, cyanosis or edema Psych: Mental Status: mental status grossly normal Affect: normal affect Attitude: cooperative Course Course Emergency Course: acute on Chronic low back pain secondary to non-Hodgkin's lymphoma with metastatic lesions Vital Signs Vital signs: Vital Signs Oxygen Delivery Room Air 05/31/24 23:16 Temperature 36.6 C 05/31/24 23:18 Pulse Rate 69 05/31/24 23:18 Respiratory Rate 18 05/31/24 23:18 Blood Pressure 134/91 H 05/31/24 23:18 Pulse Oximetry 96 05/31/24 23:18 Oxygen Delivery Room Air 05/31/24 23:18 MDM - Back Pain/Injury MDM Narrative Medical decision making narrative: acute on chronic low back pain secondary to bone Mets. Differential Diagnosis Differential diagnosis: Likely lumbar radiculopathy and sciatica Medical Records Attestation: I reviewed the patient's medical records. Discharge Plan Discharge Clinical Impression: Metastasis to bone Chronic back pain Qualifiers: Back pain location: low back pain Back pain laterality: bilateral Sciatica presence: with sciatica Sciatica laterality: sciatica of left side Qualified Code(s): M54.42 - Lumbago with sciatica, left side Patient Disposition: Home, Self-Care Condition: Stable Instructions: Antibiotic Form, Lumbar Radiculopathy (ED), Bone Metastasis (ED) Patient Language: [place] Prescriptions: New hydromorphone [Dilaudid] 2 mg tablet 2 mg PO Q6H PRN (Reason: pain) Qty: 20 0RF Follow-up/Referrals: Candido Hayes DO [Primary Care Provider] - Time of Disposition: 00:11
[2024-06-01] MEDS: PROCHLORPERAZINE MALEATE 5 MG TABLET PO (00:13)
[2024-06-01] MEDS: HYDROmorphone HCL INJ (*CRX) 2 MG/ML VIAL 1 MG IM (00:14)
[2024-06-01 00:28] VITALS: BP 134/85; PULSE 98; RESP 16; TEMP 36.8; O2SAT 98
== END 2024-06-01 00:28 | disposition home or self-care (01) ==
PROVIDERS: Emergency Provider Internal Medicine Critical Care Medicine; PCP Family Medicine
DX: C79.51 Secondary malignant neoplasm of bone (principal); M54.42 Lumbago with sciatica, left side; C85.93 Non-Hodgkin lymphoma, unspecified, intra-abdominal lymph nodes; C85.91 Non-Hodgkin lymphoma, unspecified, lymph nodes of head, face, and neck; F17.210 Nicotine dependence, cigarettes, uncomplicated
CPT/HCPCS: 96372; 99283; A9270; J1171

== ENCOUNTER 2024-06-19 08:22 | Outpatient (CLI) | payer OTHER, SELFPAY ==
[2024-06-19 08:30] VITALS: BP 135/86; PULSE 80; RESP 16; TEMP 36.3; O2SAT 96; BMI 26.5
[2024-06-19 08:44] LABS: Basophils Absolute Auto 0.03 K/mm3 (0.00-0.10); Basophils Percent Auto 0.5 % (0.0-1.0); Eosinophils Percent Auto 3.1 % (1.0-6.0); Hematocrit 43.1 % (40.0-54.0); Hemoglobin 14.3 g/dL (14.0-18.0); Immature Granulocyte Absolute 0.01 K/mm3 (0.00-0.00); Immature Granulocyte Percent A 0.2 % (0.0-0.0); Lymphocytes Absolute Auto 1.05 K/mm3 (1.10-4.50); Lymphocytes Percent Auto 16.5 % (18.0-42.0); Mean Corpuscular HGB Conc 33.2 g/dL (32-36); Mean Corpuscular Hemoglobin 26.3 pg (27.0-31.0); Mean Corpuscular Volume 79.4 fL (78.0-102.0); Mean Platelet Volume 10.3 fl (8.7-11.0); Monocytes Absolute Auto 0.94 K/mm3 (0.10-0.90); Monocytes Percent Auto 14.8 % (2.0-11.0); Neutrophils Absolute Auto 4.14 K/mm3 (1.70-7.20); Neutrophils Percent Auto 64.9 % (50.0-70.0); Platelet Count Result 242 K/mm3 (150-420); Red Blood Count 5.43 M/mm3 (4.70-6.10); Red Cell Distribution Width 15.9 % (11.6-14.4); White Blood Count 6.4 K/mm3 (4.8-10.8)
[2024-06-19 09:01] LABS: Alanine Aminotransferase 21 U/L (16-63); Albumin Level 3.9 g/dL (3.4-5.0); Alkaline Phosphatase 125 U/L (46-116); Anion Gap 9 mmol/L (4-12); Aspartate Amino Transferase 12 U/L (15-37); Bilirubin,Total 0.4 mg/dL (0.00-1.00); Blood Urea Nitrogen 16 mg/dL (7-18); Calcium 9.6 mg/dL (8.5-10.1); Carbon Dioxide 30 mmol/L (21-32); Chloride 102 mmol/L (98-108); Estimated CRCL calculation 83 ml/min; Estimated Glomerular Filt Rate > 60; Glucose 112 mg/dL (70-99); Osmolality Calculated 294 mOsm/kg (285-295); Potassium 3.6 mmol/L (3.5-5.1); Sodium 141 mmol/L (136-145); Total Protein 7.7 g/dL (6.4-8.2)
[2024-06-19] MEDS: FAMOTIDINE 20 MG/ISO 50 ML 20 MG/50 ML BAG 150 MG IVPB (09:10)
[2024-06-19] MEDS: SODIUM CHLORIDE 0.9% IV 250 ML 10 ML IVPB (09:10)
[2024-06-19] MEDS: ACETAMINOPHEN 325 MG TABLET 650 MG PO (09:15)
[2024-06-19] MEDS: diphenhydrAMINE HCl INJ 50 MG/ML VIAL 25 MG IV PUSH (09:20)
[2024-06-19] MEDS: HYDROCORTISONE SODIUM SUCCINATE 100 MG/2 ML VIAL IV PUSH (09:33)
[2024-06-19] MEDS: ONDANSETRON INJ 16 MG in SODIUM CHLORIDE 0.9% IV 50 ML 150 MG IV PUSH (09:35)
[2024-06-19] MEDS: BRENTUXIMAB VEDOTIN IVPB (10:03)
[2024-06-19] MEDS: SODIUM CHLORIDE 0.9% IVPB ×2 (10:03→10:37)
[2024-06-19] MEDS: NIVOLUMAB IVPB (10:37)
[2024-06-19] MEDS: HEPARIN SODIUM LOCK FLUSH 500 UNITS/5 ML SYRINGE IV PUSH (11:40)
[2024-06-19 11:49] VITALS: BP 129/77; PULSE 80; RESP 14; TEMP 36.5; O2SAT 96
--- NOTE | 2024-06-19 11:50 | PC.NURSE ---
Patient tolerated cycle 2 treatment well. SEE MAR/patient care notes.
--- OUTSIDE RECORDS SUMMARY | 2024-06-25 06:48 | XMS_ITS | Encounter Summary ---
Author Organization [facility] Address [address] [place] [address]. [place], [place] [id number] [place] [id number] Care Team Providers Care Photography Editor Name Role Phone FeleciaCandido kincaid Primary Care Provider [phone] Ambrocio Ashford MD Unavailable Reason for Visit * Reason Onset Date Comments Preprocedure Call 05/16/2024 Spoke with thais artem mother-I let her know that patient is scheduled for Pet scan and biopsy on 05/23 and to check in at 0700. Instructed patients mother for patient to be NPO at midnight. Patients mother states he is not diabetic. No further questions from patients mother. Encounter Details Date Type Department Care Team (Late st Contact Info) Description 05/16/2024 Telephone [facility] Interventional Radiology [address] [place] [address] Carin Hassan RN Preprocedure Call (Spoke with patients mother-I let her know that patient is scheduled for Pet scan and biopsy on 05/23 and to check in at 0700. Instructed patients mother for patient to be NPO at midnight. Patients mother states he is not diabetic. No further questions from patients mother. ) Social History Tobacco Use Types Packs/Day Years Used Date Smoking Tobacco: Every Day Cigarettes Smokeless Tobacco: Never Comments:not smoking very mu ch lately Alcohol Use Standard Drinks/Week Comments Yes 0 (1 standard drink = 0.6 oz pur e alcohol) decreased etoh use Humiliation, Afraid, Rape, and Kick questionnair e Answer Date Recorded Within the last year, have y ou been afraid of your partner or ex-partner? No 04/24/2023 Within the last year, have y ou been humiliated or emotionally abused in other ways by your partner or ex-partner? No Within the last year, have y ou been kicked, hit, slapped, or otherwise physically hurt by your partner or ex-partner? No 04/24/2023 Within the last year, have y ou been raped or forced to have any kind of sexual activity by your partner or ex-partner? No 04/24/2023 Social Connection and Isolation Panel [NHANES] A nswer Date Recorded In a typical week, how many times do you talk on the phone with family, friends, or neighbors? Never 04/24/2023 How often do you get together with friends or re latives? Once a week 04/24/2023 How often do you attend amish or religion serv ices? Never 04/24/2023 Do you belong to any clubs o r organizations such as amish groups, unions, fraternal or athletic groups, or school groups? No 04/24/2023 How often do you attend meet ings of the clubs or organizations you belong to? Never 04/24/2023 Are you , , di vorced, , never , or living with a partner? Never 04/24/2023 AUDIT-C Answer Date Recorded Q1: How often do you have a drink containing alcohol? Never 04/24/2023 Q2: How many drinks containi ng alcohol do you have on a typical day when you are drinking? Patient does not drink Q3: How often do you have si x or more drinks on one occasion? Never 04/24/2023 Overall Financial Resource Strain (CARDIA) Answe r Date Recorded How hard is it for you to pa y for the very basics like food, housing, medical care, and heating? Not hard at all 04/24/2023 PHQ-2 Answer Date Recorded PHQ-2 Score - If the patient scores above 3, please move on to questions 3-9 0 04/14/2022 [facility] - Occupational Stress Questionnaire Answer Date Recorded Do you feel stress - tense, restless, nervous, or anxious, or unable to sleep at night because your mind is troubled all the time - these days? Only a little 04/24/2023 Exercise Vital Sign Answer Date Recorde d On average, how many days pe r week do you engage in moderate to strenuous exercise (like a brisk walk)? 0 days 04/24/2023 On average, how many minutes do you engage in exercise at this level? 0 min 04/24/2023 Hunger Vital Sign Answer Date Recorded Within the past 12 months, y ou worried that your food would run out before you got the money to buy more. Never true 04/24/20 23 Within the past 12 months, t he food you bought just didn't last and you didn't have money to get more. Never true 04/24/2023 PRAPARE - Transportation Answer Date Re corded In the past 12 months, has l ack of transportation kept you from medical appointments or from getting medications? No 04/05 In the past 12 months, has l ack of transportation kept you from meetings, work, or from getting things needed for daily living? No 04/24/2023 Housing Stability Vital Sign Answer Marv e Recorded In the last 12 months, was t here a time when you were not able to pay the mortgage or rent on time? No 04/24/2023 In the last 12 months, how many places have you lived? 1 04/24/2023 In the last 12 months, was t here a time when you did not have a steady place to sleep or slept in a [facility] (including now)? 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 Answer Date of Assessment Author Status No 04/24/2023 10:00 PM CDT Delphine Fairchild RN Active * Do you have serious difficulty walking or climbing stairs? Answer Date of Assessment Author Status No 04/24/2023 10:00 PM CDT Delphine Fairchild RN Active * Do you have difficulty dressing or bathing? Answer Date of Assessment Author Status No 04/24/2023 10:00 PM CDT Delphine Fairchild RN Active * Because of a physical, mental, or emotional condition, do you have difficulty doing errands alone such as visiting a doctor's office or shopping? Answer Date of Assessment Author Status Yes 04/24/2023 10:00 PM CDT Delphine Fairchild RN Active documented as of this encounter Mental Status * Because of a physical, mental, or emotional condition, do you have serious difficulty concentrating, remembering, or making decisions? Answer Entry Date Author Status No 04/24/2023 10:00 PM CDT Delphine Fairchild RN Active documented in this encounter Plan of Treatment Not on file documented as of this encounter Goals Goal Patient Goal Type Associated Problems Recent Progress Patient-Stated? Author Safety ? Patient/family will have appropriate support at home upon discharge Lifestyle No Rama Chahal RN Family - family caregiver with be involved in care transitions and discharge planning Lifestyle No Catrina Tyler RN documented as of this encounter Visit Diagnoses Not on filedocumented in this encounter Additional Health Concerns Infection Onset Date Last Indicated Resolved Time MRSA Comment:04/14/22 nose (JJ) 04/16/2022 04/26/2023 Assessment Noted Time PHQ-9 Depression Total Score: 1 04/14/20 22 9:26 PM CDT documented as of this encounter Care Teams Photography Editor Relationship Specialty Start Date End Date Candido Hayes DO [address] [place] [address] PCP - General FAMILY PRACTICE 04/14/22 Ambrocio Ashford MD [address] [place] [address] INTERNAL MEDICINE 10/27/22 documented as of this encounter
--- OUTSIDE RECORDS SUMMARY | 2024-06-25 06:48 | XMS_ITS | Encounter Summary ---
Author Organization [facility] Address [address] [place] [address]. [place], [place] [address] [place] [id number] Care Team Providers Care Door Trimmer Name Role Phone Candido Hayes DO Primary Care Provider [phone] Ambrocio Ashford MD Unavailable [phone] Reason for Referral * Imaging (Routine) - Closed Specialty Diagnoses / Procedures Referred By Contac t Referred To Contact RADIOLOGY Diagnoses Hodgkin disease of bone marrow ([facility]) Procedures US GD LYMPH NODE BX Carla Lopez MD [address] [address] Phone: tel: fax: Referral ID Status Reason Start Date Expiration Date Visits Re quested Visits Authorized [id number] Closed 05/12/2024 06/12/2025 1 1 RAIL CHARGER OPERATOR * Imaging (Routine) - Closed Specialty Diagnoses / Procedures Referred By Contac t Referred To Contact RADIOLOGY Diagnoses Hodgkin disease of bone marrow ([facility]) Procedures PET EYE TO THIGH [id number] Carla Lopez MD [address] [address] Phone: tel: fax: Referral ID Status Reason Start Date Expiration Date Visits Re quested Visits Authorized [id number] Closed 03/24/2024 05/23/2024 1 1 RAIL CHARGER OPERATOR Reason for Visit * Imaging (Routine) - Closed Specialty Diagnoses / Procedures Referred By Contac t Referred To Contact RADIOLOGY Diagnoses Hodgkin disease of bone marrow ([facility]) Procedures PET EYE TO THIGH [id number] Carla Lopez MD [address] [address] Phone: tel: fax: Referral ID Status Reason Start Date Expiration Date Visits Re quested Visits Authorized [id number] Closed 03/24/2024 05/23/2024 1 1 Encounter Details Date Type Department Care Team (Latest Contact Info) Description 05/23/2024 7:56 AM MONORAIL CHARGER OPERATOR - 05/23/2024 11:59 PM MONORAIL CHARGER OPERATOR Hospital Encounter [facility] [address] [place] [address] Carla Lopez MD [address] [address] Discharge Disposition: Home or Self Care (Routine Discharge) Social History Tobacco Use Types Packs/Day Years Used Date Smoking Tobacco: Every Day Cigarettes Smokeless Tobacco: Never Tobacco Cessation:Ready to Q uit: Not Asked; Counseling Given: Not Answered Comments:not smoking very much lately Alcohol Use Standard Drinks/Week Comments Yes 0 (1 standard drink = 0.6 oz pur e alcohol) one beer yearly Humiliation, Afraid, Rape, and Kick questionnair e [...] week 04/24/2023 How often do you attend confucianist or christianity serv ices? Never 04/24/2023 Do you belong to any clubs o r organizations such as confucianist groups, unions, fraternal or athletic groups, or [...] move on to questions 3-9 0 04/14/2022 [facility] - Occupational Stress Questionnaire Answer Date Recorded [...] place to sleep or slept in a retirement (including now)? No 04/24/2023 Sex and Gender Information Value Date Recorded Sex Assigned at Not on file Legal Sex Male 5:44 PM MONORAIL CHARGER OPERATOR Gender Identity Male 04/14/2022 9:23 PM CDT Sexual Orientation Straight 04/14/2022 9: 23 PM CDT documented as of this encounter Last Filed Vital Signs Vital Sign Reading Time Taken Comments Blood Pressure 117/86 05/23/2024 11:45 AM MONORAIL CHARGER OPERATOR Pulse 87 05/23/2024 11:45 AM MONORAIL CHARGER OPERATOR Temperature - - Respiratory Rate 16 05/23/2024 11:45 AM MONORAIL CHARGER OPERATOR Oxygen Saturation 99% 05/23/2024 11:45 AM MONORAIL CHARGER OPERATOR Inhaled Oxygen Concentration - - Weight 70.3 kg (155 lb) 05/23/2024 10:37 AM MONORAIL CHARGER OPERATOR Height 167.6 cm (5' 6 ) 05/23/2024 10:37 AM MONORAIL CHARGER OPERATOR Body Mass Index 25.02 05/23/2024 10:37 AM MONORAIL CHARGER OPERATOR documented in this encounter Functional Status * Are you [...] Assessment Author Status No 04/24/2023 10:00 PM Delphine Bullock RN Active * Do you have difficulty dressing or bathing? Answer Date of Assessment Author Status No 04/24/2023 10:00 PM Delphine Bullock RN Active * Because of a physical, mental, or emotional condition, do you have difficulty doing errands alone such as visiting a doctor's office or shopping? Answer Date of Assessment Author Status Yes 04/24/2023 10:00 PM Delphine Bullock RN Active documented as of this encounter Mental Status * Because of a physical, mental, or emotional condition, do you have serious difficulty concentrating, remembering, or making decisions? Answer Entry Date Author Status No 04/24/2023 10:00 PM Delphine Bullock RN Active documented in this encounter Discharge Instructions * Discharge Instructions* Jenni Richardson RN - 05/23/2024 10:35 AM MONORAIL CHARGER OPERATOR DISCHARGE INSTRUCTIONS FOR LYMPH NODE BIOPSY What you need to know: An aspiration biopsy is a procedure to remove tissue and/or fluid from a nodule (lump) on your body. This test helps your healthcare provider diagnose cancer or identify nodules that are not cancer. This information with assist your healthcare provider in your care. Discharge care: 1. If the biopsy was of your neck, place a cold compress or ice pack on your neck to ease swelling and discomfort. You may use this for 10-15 minutes at a time for the next few hours. Any swelling orbruising should go away after several days. 2. You may remove the band-aid 24 hours after the biopsy. Remember to wash your hands before and after touching the biopsy site. 3. Call your medical physician or ordering doctor if you have pain, drainage, bleeding or new swelling at your biopsy site. 4. Seek care immediately if you have sudden trouble breathing, shortness of breath, or increasing pain at the biopsy site. Also seek care if you have sudden severe leg pain with weak, numbness, or tingling in your legs or if you have a pulsing lump in your groin. 5. Keep any follow up appointments, or make an appointment with your medical physician, as they will review test results with you. 6. If you have any questions or concerns, please contact the lnterventional Radiology Department [phone], ext. [phone]. RAIL CHARGER OPERATOR RAIL CHARGER OPERATOR documented in this encounter Plan of Treatment Not on file documented as of this encounter Goals Goal Patient Goal Type Associated Problems Recent Progress Patient-Stated? Author Safety ? Patient/family will have appropriate support at home upon discharge Lifestyle No Rama Chahal, print graphic designer - family caregiver with be involved in care transitions and discharge planning Lifestyle No Catrina Tyler RN documented as of this encounter Procedures Procedure Name Priority Date/Time Associated Diagnosis Comments US GD LYMPH NODE BX Routine 05/23/2024 1 2:22 PM MONORAIL CHARGER OPERATOR Hodgkin disease of bone marrow (CMS/HCC HHS/HCC) PET EYE TO THIGH [id number] Routine 05/23/2024 9:14 AM MONORAIL CHARGER OPERATOR Hodgkin disease of bone marrow (CMS/HCC HHS/HCC) POCT GLUCOSE - STEARNS DOCKED DEVICE Routine 05/23/2024 8:09 AM MONORAIL CHARGER OPERATOR documented in this encounter Results * US GD LYMPH NODE BX (05/23/2024 12:22 PM MONORAIL CHARGER OPERATOR) Anatomical Region Laterality Modality Undefined Ultrasound, Radi ographic Imaging 05/23/2024 2:41 PM MONORAIL CHARGER OPERATOR Impressions 05/26/2024 5:04 PM MONORAIL CHARGER OPERATOR IMPRESSION: Uneventful ultrasound-guided biopsy of a right inguinal lymph node. The attending radiologist, Dr. Johnny Galaviz MD was present during all critical portions of the procedure, has reviewed the image(s) and agrees with the content of this report. Dictated By: Get Chavez MD on 05/23/2024 2:41 PM The attending radiologist has reviewed the image(s) and agrees with the content of this report. Ordered By: CARLA LOPEZ Interpreted By: Get Chavez MD, 05/23/2024 2:41 PM Narrative 05/26/2024 5:04 PM MONORAIL CHARGER OPERATOR [facility] [address] [place], [place] [address] PROCEDURE: Ultrasound-guided percutaneous biopsy of right inguinal lymph node PRE-OP DIAGNOSIS: Lymphadenopathy POSTOP DIAGNOSIS: same INDICATION: History of Hodgkin's lymphoma with suspected recurrence COMPARISON: PET/CT 05/23/2024. Ultrasound-guided lymph node biopsy 04/27/2023 Primary providers: Get Chavez M.D. Resident. Filiberto Loomis PA-C Supervising physician: Johnny Galaviz MD PROCEDURE: Following informed consent and [place] protocol to verify correct patient, site, and procedure to be performed, planning ultrasound images were obtained, confirming an enlarged irregular appearing lymph node in the right groin. A safe lateral path of approach was selected, and the skin was marked, sterilely prepared, and draped. Hand sanitization was performed either with alcohol-based hand rub or conventional surgical scrub technique. The ultrasound transducer was placed in a sterile sleeve. Local anesthesia was achieved using 1% lidocaine, injected along the anticipated needle path under ultrasound guidance. A small dermatotomy was created. Subsequently, under continuous ultrasound guidance, a total of 2 core biopsies were obtained using ??an 18-gauge Biopince needle. Slide preparations were created, and a transport assistant was present to confirm specimen adequacy. ??A flow cytometry sample was collected. Hemostasis at the biopsy site was achieved easily using manual compression. A dressing was applied. The patient appeared to tolerate the procedure well. SPECIMENS: as above EBL: Minimal Procedure Note Johnny Galaviz MD - 05/26/2024 [facility] [address] [place], [place] [address] PROCEDURE: Ultrasound-guided percutaneous biopsy of right inguinal lymphnode PRE-OP DIAGNOSIS: Lymphadenopathy POSTOP DIAGNOSIS: same INDICATION: History of Hodgkin's lymphoma with suspected recurrence COMPARISON: PET/CT 05/23/2024. Ultrasound-guided lymph node [id number]/27/2023 Primary providers: Get Chavez M.D. Resident. Filiberto Loomis PA-C Supervising physician: Johnny Galaviz MD PROCEDURE: Following informed consent and [place] protocol to verifycorrect patient, site, and procedure to be performed, planning ultrasoundimages were obtained, confirming an enlarged irregular appearing lymphnode in the right groin. A safe lateral path of approach was selected, andthe skin was marked, sterilely prepared, and draped. Hand sanitization wasperformed either with alcohol-based hand rub or conventional surgicalscrub technique. The ultrasound transducer was placed in a sterile sleeve.Local anesthesia was achieved using 1% lidocaine, injected along theanticipated needle path under ultrasound guidance. A small dermatotomy wascreated. Subsequently, under continuous ultrasound guidance, a total of 2core biopsies were obtained using an 18-gauge Biopince needle. Slidepreparations were created, and a transport assistant was present to confirmspecimen adequacy. A flow cytometry sample was collected. Hemostasis atthe biopsy site was achieved easily using manual compression. A dressingwas applied. The patient appeared to tolerate the procedure well. SPECIMENS: as above EBL: Minimal IMPRESSION: Uneventful ultrasound-guided biopsy of a right inguinal lymph node. The attending radiologist, Dr. Johnny Galaviz MD was present during allcritical portions of the procedure, has reviewed the image(s) and agreeswith the content of this report. Dictated By: Get Chavez MD on 05/23/2024 2:41 PM The attending radiologist has reviewed the image(s) and agrees with thecontent of this report. Ordered By: CARLA LOPEZ Interpreted By: Get Chavez MD, 05/23/2024 2:41 PM us Carla Lopez MD ULTRASOUND Final Result * PET EYE TO THIGH [id number] (05/23/2024 9:14 AM MONORAIL CHARGER OPERATOR) Anatomical Region Laterality Modality Body Positron Emissio n Tomography (PET), Positron Emission Tomography (PET) 05/23/2024 9:40 AM MONORAIL CHARGER OPERATOR Impressions 05/24/2024 9:26 AM MONORAIL CHARGER OPERATOR IMPRESSION: ?? 1. Progressive disease with new and increasing markedly hypermetabolic pete involvement above and below the diaphragm. 5PS= 5. 2. Multifocal markedly hypermetabolic splenic, osseous, and pulmonary sites of involvement. 3. Additional sites of sclerosis and lucency throughout the skeleton without focal FDG uptake are favored to reflect sites of previously treated disease. The attending radiologist has reviewed the image(s) and agrees with the content of this report. Ordered By: CARLA LOPEZ Interpreted By: Dima Murrieta MD, 05/23/2024 9:40 AM Narrative 05/24/2024 9:26 AM MONORAIL CHARGER OPERATOR [address] [address] EXAMINATION: TUMOR FDG-PET/CT IMAGING DATE OF STUDY: ??05/23/2024 8:01 AM SCANNER: [facility] RADIOPHARMACEUTICAL: 12.0 mCi F-18 Fluorodeoxyglucose (FDG) i.v. ??Injection site: Right antecubital fossa HISTORY: Hodgkin's lymphoma. Recent outside CT scan showed disease progression. Initial diagnosis 02/10/2022. Has previously completed 6 cycles of Prembrolizumab/JVD. ??The study is requested for restaging of documented recurrent disease . Subsequent treatment strategy. TECHNIQUE: ?? The patient's fasting blood glucose level, measured by glucometer before injection of FDG, was 97 mg/dL. ??-Gastroview was not given orally. ??After intravenous administration of FDG, noncontrast CT images were obtained for attenuation correction and for fusion with emission PET images to allow for anatomical localization of PET findings. ??Emission PET images were then obtained. ??The study was interpreted on the [employer] workstation. ??The mean liver SUV (reported for quality control assistant purposes) is 1.2. ?? The total scanned area was skull vertex to the proximal thighs. ??Images of the body were obtained starting 50 minutes after injection of tracer. COMPARISON: PET/CT 11/26/2021, 10[place]14[facility]20[facility] [place] [facility] [place]CT abdomen/pelvis 04/26/2023, CT abdomen/pelvis 05/03/2024, CT lumbar spine 05/03/2024 FINDINGS: Extensive motion artifact and misregistration in the head and neck, upper extremities, and upper chest which markedly limits evaluation of these body regions. There is hypermetabolic adenopathy above and below the diaphragm. There is probable misregistered moderate to markedly hypermetabolic cervical adenopathy, greatest in left cervical level 2 node measuring approximately 3 cm in short axis with max SUV 5.5. Increased FDG uptake within the right cervical nodes demonstrates SUV max of roughly 4.7. Right upper lobe pulmonary nodule measuring approximately 1.4 x 1.0 cm with an SUV max of approximately 5.0 has increased from the prior exam when it had a max SUV of 2.8. There is an additional superior segment right lower lobe nodule measuring approximately 7 mm with increased FDG uptake, SUV max approximately 2.3. There are multiple enlarged markedly hypermetabolic bilateral axillary lymph nodes, greater on the left. A 2.1 x 1.8 cm misregistered left axillary node has max SUV 6.3, previously 3.5. There are multiple FDG avid foci in the spleen, the most avid is the superior anterior portion with an SUV max of approximately 5.1. There are multiple enlarged markedly hypermetabolic retroperitoneal lymph nodes. For reference, a left retroperitoneal node at the level of the left renal vein and measures roughly 2.2 x 1.8 cm and has max SUV 8.7. An additional lymph node with markedly increased FDG uptake within the aortocaval region at the level of the right lower renal pole and has max SUV 7.9. Bilateral inguinal lymph nodes demonstrate marked FDG uptake, much greater on the right. The largest node measures roughly 3.0 x 2.1 cm in greatest axial dimension but 4.9 cm in greatest extent in the oblique coronal plane and has an SUV max of 12.7. Marked FDG uptake associated with lucency and sclerosis throughout the left hemisacrum with max SUV 9.4. Additional sites of osseous involvement in the inferior L2 vertebral body on the left with max SUV 11.4 and the left posterior ilium. Increased FDG uptake in the right shoulder is indeterminate in the extensive motion artifact and misregistration. There are a few sites of sclerosis and/or lucency throughout the skeleton including vertebral bodies at C3, C4, C7, T11, and L4 some of which have associated compression deformities. These are not hypermetabolic and may reflect previously treated disease. The most FDG-avid lesion is a right inguinal lymph node, has a maximum SUV of 12.7, and approximate axial dimensions of 3.0 x 2.1 cm. ??The uptake in this lesion is: markedly greater than liver (5PS= 5). Additional CT findings: Right-sided chest port with catheter tip in the right atrium. Multiple pulmonary nodules described above. Mild colonic diverticulosis. Sclerotic changes in the sacrum and bilateral iliac wings. 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 Surgical clip or calcification of the right inguinal region with soft tissue density, possibly sequela of a prior hernia repair. Recommend correlation with history. Procedure Note Alexandria Christiansen MD - 05/24/[address] [address] EXAMINATION: TUMOR FDG-PET/CT IMAGING DATE OF STUDY: 05/23/2024 8:01 AM SCANNER: [facility] RADIOPHARMACEUTICAL: 12.0 mCi F-18 Fluorodeoxyglucose (FDG) i.v.Injection site: Right antecubital fossa HISTORY: Hodgkin's lymphoma. Recent outside CT scan showed diseaseprogression. Initial diagnosis 02/10/2022. Has previously completed 6 cyclesof Prembrolizumab/JVD. The study is requested for restaging of documentedrecurrent disease . Subsequent treatment strategy. TECHNIQUE: The patient's fasting blood glucose level, measured byglucometer before injection of FDG, was 97 mg/dL. MD-Gastroview was notgiven orally. After intravenous administration of FDG, noncontrast CTimages were obtained for attenuation correction and for fusion withemission PET images to allow for anatomical localization of PET findings.Emission PET images were then obtained. The study was interpreted on [employer] workstation. The mean liver SUV (reported for quality controlpurposes) is 1.2. The total scanned area was skull vertex to the proximal thighs. Images ofthe body were obtained starting 50 minutes after injection of tracer. COMPARISON: PET/CT 11/26/2021, 10/14/2023 [facility] [place], CTabdomen/pelvis 04/26/2023, CT abdomen/pelvis 05/03/2024, CT lumbar spine05/03/2024 FINDINGS: Extensive motion artifact and misregistration in the head and neck, upperextremities, and upper chest which markedly limits evaluation of thesebody regions. There is hypermetabolic adenopathy above and below the diaphragm. There isprobable misregistered moderate to markedly hypermetabolic cervicaladenopathy, greatest in left cervical level 2 node measuring approximately3 cm in short axis with max SUV 5.5. Increased FDG uptake within the rightcervical nodes demonstrates SUV max of roughly 4.7. Right upper lobe pulmonary nodule measuring approximately 1.4 x 1.0 cmwith an SUV max of approximately 5.0 has increased from the prior examwhen it had a max SUV of 2.8. There is an additional superior segmentright lower lobe nodule measuring approximately 7 mm with increased FDGuptake, SUV max approximately 2.3. There are multiple enlarged markedly hypermetabolic bilateral axillarylymph nodes, greater on the left. A 2.1 x 1.8 cm misregistered leftaxillary node has max SUV 6.3, previously 3.5. There are multiple FDG avid foci in the spleen, the most avid is thesuperior anterior portion with an SUV max of approximately 5.1. There are multiple enlarged markedly hypermetabolic retroperitoneal lymphnodes. For reference, a left retroperitoneal node at the level of the leftrenal vein and measures roughly 2.2 x 1.8 cm and has max SUV 8.7. Anadditional lymph node with markedly increased FDG uptake within theaortocaval region at the level of the right lower renal pole and has maxSUV 7.9. Bilateral inguinal lymph nodes demonstrate marked FDG uptake, much greateron the right. The largest node measures roughly 3.0 x 2.1 cm in greatestaxial dimension but 4.9 cm in greatest extent in the oblique coronal planeand has an SUV max of 12.7. Marked FDG uptake associated with lucency and sclerosis throughout theleft hemisacrum with max SUV 9.4. Additional sites of osseous involvementin the inferior L2 vertebral body on the left with max SUV 11.4 and theleft posterior ilium. Increased FDG uptake in the right shoulder is indeterminate in theextensive motion artifact and misregistration. There are a few sites of sclerosis and/or lucency throughout the skeletonincluding vertebral bodies at C3, C4, C7, T11, and L4 some of which haveassociated compression deformities. These are not hypermetabolic and mayreflect previously treated disease. The most FDG-avid lesion is a right inguinal lymph node, has a maximum SUVof 12.7, and approximate axial dimensions of 3.0 x 2.1 cm. The uptake inthis lesion is: markedly greater than liver (5PS= 5). Additional CT findings: Right-sided chest port with catheter tip in the right atrium. Multiplepulmonary nodules described above. Mild colonic diverticulosis. Scleroticchanges in the sacrum and bilateral iliac wings. Chronic appearingununited fracture of the left transverse process at L3 with scleroticmargins. Surgical clip or calcification of the right inguinal region withsoft tissue density, possibly sequela of a prior hernia repair. Recommendcorrelation with history. IMPRESSION: 1. Progressive disease with new and increasing markedly hypermetabolicnodal involvement above and below the diaphragm. 5PS= 5. 2. Multifocal markedly hypermetabolic splenic, osseous, and pulmonarysites of involvement. 3. Additional sites of sclerosis and lucency throughout the skeletonwithout focal FDG uptake are favored to reflect sites of previouslytreated disease. The attending radiologist has reviewed the image(s) and agrees with thecontent of this report. Ordered By: CARLA LOPEZ Interpreted By: Dima Murrieta MD, 05/23/2024 9:40 AM Carla Lopez MD PET Final Result * POCT glucose (05/23/2024 8:09 AM MONORAIL CHARGER OPERATOR) GLUCOSE POC 97 70 - 109 05/23/2024 8:13 AM MONORAIL CHARGER OPERATOR [facility] 05/23/2024 8:09 AM MONORAIL CHARGER OPERATOR Carla Lopez MD POCT ORDERABLES - DEV ICE Final Result [facility] [address] [place] [address], [place] [phone] [id number] documented in this encounter Visit Diagnoses Diagnosis Hodgkin disease of bone marrow ([facility]/HCC [facility]/HCC) documented in this encounter Administered Medications Inactive Administered Medications - up to 3 most recent administrations Medication Order MAR Action Action Date Dose Rate Site fludeoxyglucose F 18 radio-isotope injection 12 millicurie 12 millicurie, Intravenous, Once, 1 dose, On Wed05/23/24 at 0815, Administer as an IV injection. Initiate imaging between 50 and 75 minutes of administration. RADIOPHARMACEUTICAL: Use appropriate precautions for handling & disposal. Follow appropriate safety measures to minimize radiation exposure during administration; use waterproof gloves & effective shielding, including syringe galaviz. 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
--- OUTSIDE RECORDS SUMMARY | 2024-06-25 06:48 | XMS_ITS | Encounter Summary ---
Author Organization [facility] Address [address] [place] [address]. [place] [address] [place] [address] Care Team Providers Care Fire Eater Name Role Phone FeleciaCandido kincaid Primary Care Provider [phone] Ambrocio Ashford MD Unavailable [phone] Reason for Visit * Reason Onset Date Comments Orders 08/11/2023 Encounter Details Date Type Department Care Team (Late st Contact Info) Description 08/11/2023 [address] [facility] [address] [facility] [place] [id number] Carin Lockhart, RN Orders Social History Tobacco Use Types Packs/Day Years [...] week 04/24/2023 How often do you attend adventism or presybeterian serv ices? 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 Answer Entry Date Author Status No 04/24/2023 10:00 PM CDT Delphine Fairchild RN Active documented in this encounter Progress Notes * Carin Lockhart RN - 08/11/2023 9:33 AM CST RN called Dr. Marta Fisher's office to inform them that patient's insurance is not accepted at [facility]. Staff informed RN that she would send message back to the nurses and someone would return call back toRN. No further questions at this time. E TRAINER documented in this encounter Plan of Treatment Not on file documented as of this encounter Goals Goal Patient Goal Type Associated Problems Recent Progress Patient-Stated? Author Safety ? Patient/family will have appropriate support at home upon discharge Lifestyle No Rama Chahal head chopper - family caregiver with be involved in [...] documented as of this encounter Care Teams Fire Eater Relationship Specialty Start Date End Date Candido Hayes DO [address] [place] [address] PCP - General FAMILY PRACTICE 04/14/22 Ambrocio Ashford MD [address] [place] [address] INTERNAL MEDICINE 10/27/22 documented as of this encounter
--- OUTSIDE RECORDS SUMMARY | 2024-06-25 06:48 | XMS_ITS | Encounter Summary ---
Author Organization [facility] Address [address] [place] [address]. [place] [address] [place] [address] Care Team Providers Care Fabrication And Assembly Supervisor Name Role Phone FeleciaCandido kincaid Primary Care Provider [phone] Ambrocio Ashford MD Unavailable [phone] Encounter Details Date Type Department Care Team (Latest Contact Info) Description 05/23/2024 Travel Social History Tobacco Use Types Packs/Day Years [...] week 04/24/2023 How often do you attend mormonism or bahai serv ices? Never 04/24/2023 Do you belong to any clubs o r organizations such as mormonism groups, unions, fraternal or athletic groups, or [...] move on to questions 3-9 0 04/14/2022 [facility] - [...] place to sleep or slept in a correction (including now)? 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 Author Safety ? 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
--- OUTSIDE RECORDS SUMMARY | 2024-06-25 06:48 | XMS_ITS | Clinical Summary ---
Author Organization [facility] Address [address] [place] [address]. [place] [address] [place] [address] Care Team Providers Care Seat Joiner Chainstitch Name Role Phone Freddy Candidolexis DENNISON Primary Care Provider [phone] Ambrocio Ashford MD Unavailable [phone] Allergies No known active allergies Medications No known medications Active Problems Problem Noted Date Diagnosed Date Leg weakness, bilateral 04/24/2023 Non Hodgkin's lymphoma ([facility]) 023 Septic shock (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 PET [address] [place] [address] Carla Lopez MD Discharge Disposition: Home or Self Care (Routine Discharge) 05/23/2024 Travel 05/16/[address] [facility] Interventional Radiology [address] [place] [address] Carin Hassan RN Preprocedure Call (Spoke with patients mother-I let her know that patient is scheduled for Pet scan and biopsy on 05/23 and to check in at 0700. Instructed patients mother for patient to be NPO at midnight. Patients mother states he is not diabetic. No further questions from patients mother. ) from Last 3 Months Family History Medical History Relation Comments Cancer Mother Cancer Sister Relation Status Comments Mother Sister Social History Tobacco Use Types Packs/Day Years [...] week 04/24/2023 How often do you attend moravian or oriental orthodox serv ices? Never 04/24/2023 Do you belong to any clubs o r organizations such as moravian groups, unions, fraternal or athletic groups, or [...] place to sleep or slept in a long-term (including now)? No 04/24/2023 Sex and Gender Information Value Date Recorded Sex Assigned at Not on file Legal Sex Male 5:44 PM [facility] Gender Identity Male 04/14/2022 9:23 PM CDT Sexual Orientation Straight 04/14/2022 9: 23 PM CDT Last Filed Vital Signs Vital Sign Reading Time Taken Comments Blood Pressure 117/86 05/23/2024 11:45 AM [facility] Pulse 87 05/23/2024 11:45 AM [facility] Temperature 36.4 ??C (97.5 ??F) 04/28/2023 8:23 AM CD T Respiratory Rate 16 05/23/2024 11:45 AM [facility] Oxygen Saturation 99% 05/23/2024 11:45 AM [facility] Inhaled Oxygen Concentration - - Weight 70.3 kg (155 lb) 05/23/2024 10:37 AM [facility] Height 167.6 cm (5' 6 ) 05/23/2024 10:37 AM [facility] Body Mass Index 25.02 05/23/2024 10:37 AM [facility] Plan of Treatment Health Maintenance Due Date Last Done Comments Annual Physical 02/07/1992 COVID-19 Vaccine (#1) 1994 Pneumococcal Vaccine: Pediatrics (0 to 5 Years) and At-Risk Patients (6 to 64 Years) (1 of 2 - PCV) 1995 Hepatitis C 2007 Influenza Adult (#1) 2024 DTaP, Tdap and Td Vaccines (3 - Td or Tdap) 05/11/2031 05/11/2021, 04/04/2004, 10/03/1993, Additional history exists Hepatitis B Vaccines Completed 08/26/1999, 03/07/1999, 02/07/1999 HPV Vaccines Aged Out No longer eligi ble based on patient's age to complete this topic Meningococcal Vaccine Aged Out No malia barry eligible based on patient's age to complete this topic RSV Immunizations Under 20 Months Aged Out No longer eligible based on patient's age to complete this topic Goals Goal Patient Goal Type Associated Problems Recent Progress Patient-Stated? Author Safety ? Patient/family will have appropriate support at home upon discharge Lifestyle No Rama Chahal, paper machine tender - family caregiver with be involved in care transitions and discharge planning Lifestyle No Catrina Tyler, property site manager Procedure Name Priority Date/Time Associated Diagnosis Comments US GD LYMPH NODE BX Routine 05/23/2024 1 2:22 PM [facility] Hodgkin disease of bone marrow ([facility]) CBC W/DIFF AUTOMATED Routine 05/23/2024 9:34 AM [facility] Non Hodgkin's lymphoma ([facility]) PROTHROMBIN TIME, VENOUS Routine 05/23/2024 9:34 AM [facility] Non Hodgkin's lymphoma (CMS/HCC HHS/HCC) PET EYE TO THIGH [id number] Routine 05/23/2024 9:14 AM [facility] Hodgkin disease of bone marrow (CMS/HCC HHS/HCC) POCT GLUCOSE - STEARNS DOCKED DEVICE Routine 05/23/2024 8:09 AM [facility] PATHOLOGY Routine 05/23/2024 12:00 AM [facility] from Last 3 Months Results * US GD LYMPH NODE BX (05/23/2024 12:22 PM [facility]) Anatomical Region Laterality Modality Undefined Ultrasound, Radi ographic Imaging 05/23/2024 2:41 PM [facility] Impressions 05/26/2024 5:04 PM [facility] IMPRESSION: Uneventful ultrasound-guided biopsy of a right [...] 05/23/2024 2:41 PM Narrative 05/26/2024 5:04 PM [facility] [address] [address] PROCEDURE: Ultrasound-guided percutaneous biopsy of right inguinal lymph node PRE-OP DIAGNOSIS: Lymphadenopathy POSTOP DIAGNOSIS: same INDICATION: History of Hodgkin's lymphoma with suspected recurrence COMPARISON: PET/CT 05/23/2024. Ultrasound-guided lymph node biopsy 04/27/2023 Primary providers: Get Chavez M.D. Resident. Filiberto Nichols PA-C Supervising physician: Johnny Galaviz MD PROCEDURE: Following informed consent and [place] protocol to verify correct patient, site, and [...] needle. Slide preparations were created, and a tile presser was present to confirm specimen adequacy. ??A flow cytometry sample was collected. Hemostasis at the biopsy site was achieved easily using manual compression. A dressing was applied. The patient appeared to tolerate the procedure well. SPECIMENS: as above EBL: Minimal Procedure Note Johnny Galaviz MD - 05/26/2024 [place] [id number] PROCEDURE: Ultrasound-guided percutaneous biopsy of right inguinal lymphnode PRE-OP DIAGNOSIS: Lymphadenopathy POSTOP DIAGNOSIS: same INDICATION: History of Hodgkin's lymphoma with suspected recurrence COMPARISON: PET/CT 05/23/2024. Ultrasound-guided lymph node [id number]/27/2023 Primary providers: Get Chavez M.D. Resident. Filiberto Nichols PA-C Supervising physician: Johnny Galaviz MD PROCEDURE: Following informed consent and [place] protocol to verifycorrect patient, site, and procedure [...] Biopince needle. Slidepreparations were created, and a tile presser was present to confirmspecimen adequacy. A flow [...] By: Get Chavez MD, 05/23/2024 2:41 PM Carla Lopez MD ULTRASOUND Final Result * (ABNORMAL) PROTIME/INR, VENOUS (PROTHROMBIN TIME) (05/23/2024 9:34 AM [facility]) PROTIME 13.5(H) 9.4 - 12.5 SEC 05/23/2024 10:04 AM [facility] INR 1.2(H) 0.8 - 1.1 05/23/2024 10:04 AM [facility] 05/23/2024 9:34 AM [facility] Johnny Galaviz MD LABORATORY Final Result [facility] [address] [place] [address], [place] [phone] [id number] * (ABNORMAL) CBC W/DIFF AUTOMATED (05/23/2024 9:34 AM [facility]) WBC 10.92(H) 4.00 - 10.80 x10'3/uL 05/23/2024 9:41 AM [facility] RBC 4.49(L) 4.50 - 6.10 x10'6/uL 05/23/2024 9:41 AM [facility] HGB 11.8(L) 12.0 - 16.0 G/DL 05/23/2024 9:41 AM [facility] HCT 37.1 37.0 - 52.0 % 05/23/2024 9:41 AM [facility] MCV 82.6 78.0 - 100.0 FL 05/23/2024 9:41 AM [facility] MCH 26.3(L) 27.0 - 31.0 PG 05/23/2024 9:41 AM [facility] MCHC 31.8(L) 33.0 - 36.0 G/DL 05/23/2024 9:41 AM [facility] RDW 14.8(H) 11.5 - 14.5 % 05/23/2024 9:41 AM [facility] PLT 220 150 - 350 x10'3/uL 05/23/2024 9:41 AM [facility] MPV 9.0 7.4 - 10.4 FL 05/23/2024 9:41 AM [facility] DIFFERENTIAL TYPE AUTOMATED DIFFERENTIAL 05/23/2024 9:41 AM [facility] SEG NEUTROPHILS 83.6 % 9:41 AM [facility] LYMPHOCYTES 4.3 % 05/23/2024 9:41 AM [facility] MONOCYTES 9.4 % 05/23/2024 9:41 AM [facility] EOSINOPHILS 2.1 % 05/23/2024 9:41 AM [facility] BASOPHILS 0.1 % 05/23/2024 9:41 AM [facility] IMMATURE GRANS % 0.5 % 05/23/20 9:41 AM [facility] ABS. NEUTROPHILS 9.13(H) 1.60 - 8.30 x10'3/uL 05/23/2024 9:41 AM [facility] ABS. LYMPHOCYTES 0.47(L) 0.80 - 4.70 x10'3/uL 05/23/2024 9:41 AM [facility] ABS. MONOCYTES 1.03 0.00 - 1.50 x10'3/uL 05/23/2024 9:41 AM [facility] ABS. EOSINOPHILS 0.23 0.00 - 0.40 x10'3/uL 05/23/2024 9:41 AM [facility] ABS. BASOPHILS 0.01 0.00 - 0.20 x10'3/uL 05/23/2024 9:41 AM [facility] ABS. IMMATURE GRANULOCYTES 0.05(H) 0.00 - 0.03 x10'3/uL 05/23/2024 9:41 AM [facility] ABS. NUCLEATED RBC'S 0.00 0.00 - 0.01 x10'3/uL 05/23/2024 9:41 AM [facility] NRBC % 0.0 % 05/23/2024 9:41 AM [facility] 05/23/2024 9:34 AM [facility] Johnny Galaviz MD LABORATORY Final Result [facility] [address] [place] [address], [id number] * PET EYE TO THIGH [id number] (05/23/2024 9:14 AM [facility]) Anatomical Region Laterality Modality Body Positron Emissio n Tomography (PET), Positron Emission Tomography (PET) 05/23/2024 9:40 AM [facility] Impressions 05/24/2024 9:26 AM [facility] IMPRESSION: ?? 1. Progressive disease with new [...] 05/23/2024 9:40 AM Narrative 05/24/2024 9:26 AM [facility] [address] [address] EXAMINATION: TUMOR FDG-PET/CT IMAGING DATE OF STUDY: ??05/23/2024 8:01 AM SCANNER: [facility] RADIOPHARMACEUTICAL: 12.0 mCi F-18 Fluorodeoxyglucose (FDG) i.v. [...] before injection of FDG, was 97 mg/dL. ??MD-Gastroview was not given orally. ??After intravenous administration of FDG, noncontrast CT images were obtained for attenuation correction and for fusion with emission PET images to allow for anatomical localization of PET findings. ??Emission PET images were then obtained. ??The study was interpreted on the [employer] workstation. ??The mean liver SUV (reported for vice president quality improvement purposes) is 1.2. ?? The total scanned area was skull vertex to the proximal thighs. ??Images of the body were obtained starting 50 minutes after injection of tracer. COMPARISON: PET/CT 11/26/2021, 10/14/2023 from [facility], ??CT abdomen/pelvis 04/26/2023, CT abdomen/pelvis 05/03/2024, CT [...] Procedure Note Alexandria Christiansen MD - 05/24/2024 [place] [address] EXAMINATION: TUMOR FDG-PET/CT IMAGING DATE OF STUDY: 05/23/2024 8:01 AM SCANNER: [facility] RADIOPHARMACEUTICAL: 12.0 mCi F-18 Fluorodeoxyglucose (FDG) i.v.Injection site: Right antecubital fossa HISTORY: Hodgkin's lymphoma. Recent outside CT scan showed diseaseprogression. Initial diagnosis 02/10/2022. Has previously completed 6 cyclesof Prembrolizumab/JVD. The study is requested for restaging of documentedrecurrent disease . Subsequent treatment strategy. TECHNIQUE: The patient's fasting blood glucose level, measured byglucometer before injection of FDG, was 97 mg/dL. KAISERGastroza was notgiven orally. After intravenous administration of FDG, noncontrast CTimages were obtained for attenuation correction and for fusion withemission PET images to allow for anatomical localization of PET findings.Emission PET images were then obtained. The study [facility] on [facility] work[facility]. The mean liver SUV (reported for quality controlpurposes) is 1.2. The total scanned area was skull vertex to the proximal thighs. Images ofthe body were obtained starting 50 minutes after injection of tracer. COMPARISON: PET/CT 11/26/2021, 10/14/2023 from [facility], CTabdomen/pelvis 04/26/2023, CT abdomen/pelvis 05/03/2024, CT lumbar [...] Result * POCT glucose (05/23/2024 8:09 AM [facility]) GLUCOSE POC 97 70 - 109 05/23/2024 8:13 AM [facility] 05/23/2024 8:09 AM [facility] Carla Lopez MD POCT ORDERABLES - DEV ICE Final Result [facility] [address] [place] [address], [id number] * Pathology (05/23/2024 12:00 AM [facility]) PATHOLOGY [facility] ? Department of Laboratory Medicine ?[address] [facility] ?[place] [address] ? , extension [phone] ? Pathology Report ? Addendum ? Surgical Pathology Report Name: CRYSTAL CAPONE M ? Specimen #: [id number] Age: 8 1990 (Age: 34) ? Location: [facility] Sex: M ?Procedure Date: 05/23/2024 Hospital #: [id number] ?Date Received: 05/23/2024 Date Reported: Provider: CARLA LOPEZ MD ?FILIBERTO NICHOLS PA-C Source: Lymph node, right inguinal, biopsy Clinical History: History of Hodgkin's lymphoma 2021. Gross Description: Received in formalin, labeled with a patient label and not further designated, are 2 less than 0.1 cm in diameter delicate pink-white tissue cores that are each 1.7 cm in length. ??1 touch preparation slide is received. ??The specimen is entirely submitted in cassette 1. All immunohistochemical and histochemical tests were developed by and performed at [facility], [address] [place] [address]. All tests reported here have not been cleared or approved by the U.S. Food and Drug Administration (FDA). This laboratory is regulated under CLIA as qualified to perform high-complexity testing. These tests are used for clinical purposes. They should not be regarded as investigational or for research. Positive and negative controls show appropriate reactivity. Gross examination (when applicable) was performed at [facility], [address] [place] [address]. This case was interpreted and signed out at [facility], [address] [place] [address]. Intraoperative Diagnosis: Lymph node, right inguinal, needle biopsy: ? -Pass 1: Adequate. ? -1 core in formalin. Rapid on-site consultation performed by PEREZ Woodard (ASCP) at [facility], [address] [place] [address]. FINAL DIAGNOSIS: Lymph node, right inguinal, needle biopsy: ? -Classic Hodgkin lymphoma. ? -Necrotizing granulomas. ? -Negative for fungal elements (GMS and PAS/D stains). ? -AFB stain to assess for acid-fast bacteria is pending and will be reported in an addendum. Diagnosis Comment: Histologic sections demonstrate lymph node tissue disrupted by nodular aggregates of large atypical cells with convoluted nuclei and prominent nucleoli. ??There is background mixed inflammation, necrotizing granulomas, and fibrosis. ??Immunohistochemical stains show the large atypical cells are positive for CD30, CD15, PAX5 (weak), AN CD20 (weak, patchy), while negative for CD3 and CD45. ??This immunophenotype is compatible with Hodgkin/Yan-Izabella cells and a diagnosis of classic Hodgkin lymphoma. This case is reviewed by Dr. Pito Ascencio, who has a special interest in hematopathology, with concurrence. Electronically Signed Out ? Sydnee Pritchard M.D. Addenda/Procedures Addendum ? Date Ordered: ? 05/25/2024 ? Status: Signed Out ?Date Complete: ? 05/25/2024 ? By: Sydnee Pritchard M.D ? Date Reported: ? 05/30/2024 ? Addendum Diagnosis {Not Entered} Addendum Comment An AFB stain is negative for acid-fast bacteria. The above special stain was performed and interpreted by [facility] ([place], [place]). ??A positive control was reported as reviewed and accepted. ? Sydnee Pritchard M.D. [facility] 05/23/2024 05/23/2024 1:3 5 PM [facility] Comment:Lymph node, right in guinal, biopsy Carla Lopez MD PATHOLOGY/CYTOLOGY ORDERAB LES Final Result [facility] [address] [place] [address], [id number] from Last 3 Months Additional Health Concerns Infection Onset Date Last Indicated MRSA Comment:04/14/22 nose (JJ) 04/16/2022 04/26/2023 Insurance [employer] Advance Directives * Full Code (Latest Code Status on File) Date Activated Date Inactivated Comments 04/24/2023 9:46 PM 04/28/2023 11:11 AM * Full Code Date Activated Date Inactivated Comments 12/14/2022 5:18 PM 12/21/2022 1:37 PM * Full Code Date Activated Date Inactivated Comments 04/14/2022 8:26 PM 04/16/2022 4:14 PM * Full Code Date Activated Date Inactivated Comments 04/05/2022 11:10 PM 04/06/2022 4:15 PM Care Teams Seat Joiner Chainstitch Relationship Specialty Start Date End Date Candido Hayes DO [address] [place] [address] PCP - General FAMILY PRACTICE 04/14/22 Ambrocio Ashford MD [address] [place] [address] INTERNAL MEDICINE 10/27/22
--- OUTSIDE RECORDS SUMMARY | 2024-06-25 06:49 | XMS_ITS | Encounter Summary ---
Author Organization [facility] Address [address] [place] [address]. [place] [address] [place] [address] Care Team Providers Care Experience Planning Strategist Name Role Phone TrentonCandido hammer Primary Care Provider Ambrocio Ashford MD Unavailable [phone] Reason for Visit * Reason Onset Date Comments Error 12/24/2022 Encounter Details Date Type Department Care Team (Late st Contact Info) Description [facility]/24[facility] [address] [place] [address] Alesha Levine MD Error Social History Tobacco Use Types Packs/Day Years [...] afraid of your partner or ex-partner? No 12/14/2022 Within the last year, have y ou been humiliated or emotionally abused in other ways by your partner or ex-partner? No Within the last year, have y ou been kicked, hit, slapped, or otherwise physically hurt by your partner or ex-partner? No 12/14/2022 Within the last year, have y ou been raped or forced to have any kind of sexual activity by your partner or ex-partner? No 12/14/2022 Social Connection and Isolation Panel [NHANES] A nswer Date Recorded In a typical week, how many times do you talk on the phone with family, friends, or neighbors? Twice a week 04/14/2022 How often do you get together with friends or re latives? Twice a week 04/14/2022 How often do you attend lutheran or shinto serv ices? Never 04/14/2022 Do you belong to any clubs o r organizations such as lutheran groups, unions, fraternal or athletic groups, or school groups? No 04/14/2022 How often do you attend meet ings of the clubs or organizations you belong to? Never 04/14/2022 Are you , , di vorced, , never , or living with a partner? Never 04/14/2022 AUDIT-C Answer Date Recorded Q1: How often do you have a drink containing alc ohol? Monthly or less 04/14/2022 Q2: How many drinks containi ng alcohol do you have on a typical day when you are drinking? 1 or 2 04/14/2022 Q3: How often do you have si x or more drinks on one occasion? Never 04/14/2022 Overall Financial Resource Strain (CARDIA) Answe r Date Recorded How hard is it for you to pa y for the very basics like food, housing, medical care, and heating? Not hard at all 12/14/2022 PHQ-2 Answer Date Recorded PHQ-2 Score - If the patient scores above 3, please move on to questions 3-9 0 04/14/2022 [facility] - Occupational Stress Questionnaire Answer Date Recorded Do you feel stress - tense, restless, nervous, or anxious, or unable to sleep at night because your mind is troubled all the time - these days? To some extent 04/14/2022 Exercise Vital Sign Answer Date Recorde d On average, how many days pe r week do you engage in moderate to strenuous exercise (like a brisk walk)? 0 days 04/14/2022 On average, how many minutes do you engage in exercise at this level? 0 min 04/14/2022 Hunger Vital Sign Answer Date Recorded Within the past 12 months, y ou worried that your food would run out before you got the money to buy more. Never true 12/15/19 23 Within the past 12 months, t he food you bought just didn't last and you didn't have money to get more. Never true 12/14/2022 PRAPARE - Transportation Answer Date Re corded In the past 12 months, has l ack of transportation kept you from medical appointments or from getting medications? No 12/03 In the past 12 months, has l ack of transportation kept you from meetings, work, or from getting things needed for daily living? No 12/14/2022 Housing Stability Vital Sign Answer Marv e Recorded In the last 12 months, was t here a time when you were not able to pay the mortgage or rent on time? No 12/14/2022 In the last 12 months, how many places have you lived? 1 12/14/2022 In the last 12 months, was t here a time when you did not have a steady place to sleep or slept in a correction (including now)? No 12/14/2022 Sex and Gender Information Value Date Recorded Sex Assigned at Not on file Legal Sex Male 5:44 PM [employer] Gender Identity Male 04/14/2022 9:23 PM CDT Sexual Orientation Straight 04/14/2022 9: 23 PM CDT COVID-19 Exposure Response Date Recorded In the last 10 days, have yo u been in contact with someone who was confirmed or suspected to have Coronavirus/COVID-19? No / Unsure 12/17/2022 9:52 AM CDT documented as of this encounter Functional Status * Are you deaf or do you have serious difficulty hearing Answer Date of Assessment Author Status No 12/14/2022 5:57 PM CDT Silvana Pichardo RN Active * Are you blind or do you have serious difficulty seeing, even when wearing glasses? Answer Date of Assessment Author Status No 12/14/2022 5:57 PM CDT Silvana Pichardo RN Active * Do you have serious difficulty walking or climbing stairs? Answer Date of Assessment Author Status No 12/14/2022 5:57 PM LIZBETHT Silvana Pichardo RN Active * Do you have difficulty dressing or bathing? Answer Date of Assessment Author Status No 12/14/2022 5:57 PM CDT Silvana Pichardo RN Active * Because of a physical, mental, or emotional condition, do you have difficulty doing errands alone such as visiting a doctor's office or shopping? Answer Date of Assessment Author Status No 12/14/2022 5:57 PM CDT Silvana Pichardo RN Active documented as of this encounter Mental Status * Because of a physical, mental, or emotional condition, do you have serious difficulty concentrating, remembering, or making decisions? Answer Entry Date Author Status No 12/14/2022 5:57 PM CDT Silvana Pichardo RN Active documented in this encounter Progress Notes * Cristy Sandy RN - 12/25/2022 11:34 AM CDT Unable to schedule FRANCISCO as insurance is out of network documented in this encounter Plan of Treatment Not on file documented as of this encounter Goals Goal Patient Goal Type Associated Problems Recent Progress Patient-Stated? Author Safety ? 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 in care transitions and discharge planning Lifestyle No Catrina Tyler RN documented as of this encounter Visit Diagnoses Diagnosis Mitral valve insufficiency, unspecified etiology- Primary documented in this encounter Additional Health Concerns Infection Onset Date Last Indicated Resolved Time MRSA Comment:04/14/22 nose (JJ) 04/16/2022 04/26/2023 Assessment Noted Time PHQ-9 Depression Total Score: 1 04/14/20 22 9:26 PM CDT documented as of this encounter Care Teams Experience Planning Strategist Relationship Specialty Start Date End Date Candido Hayes DO [address] [place] [address] PCP - General FAMILY PRACTICE 04/14/22 Ambrocio Ashford MD [address] [place] [address] INTERNAL MEDICINE 10/27/22 documented as of this encounter
--- OUTSIDE RECORDS SUMMARY | 2024-06-25 06:49 | XMS_ITS | Encounter Summary ---
Author Organization [facility] Address [address] [place] [address]. 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 Name Role Phone TrentonkarrieCandido kincaid Primary Care Provider [phone] Ambrocio Ashford MD Unavailable [phone] Reason for Referral * Imaging (Emergency) - Closed Specialty Diagnoses / Procedures Referred By Contac t Referred To Contact RADIOLOGY Procedures CT SOFT TISSUE NECK W CON Ovidio Richard MD Phone: tel: fax: Referral ID Status Reason Start Date Expiration Date Visits Re quested Visits Authorized [id number] Closed 10/27/2022 10/28/2023 1 1 Reason for Visit * Reason Comments Sore Throat Encounter Details Date Type Department Care Team (Late st Contact Info) Description 10/27/2022 6:01 PM CDT - 10/27/2022 9:51 PM CDT [facility] [address] [place] [address] Ovidio Richard MD [address] [place] [address] Sore Throat Discharge Disposition: Home or Self Care (Routine [...] afraid of your partner or ex-partner? No 04/14/2022 Within the last year, have y ou been humiliated or emotionally abused in other ways by your partner or ex-partner? No Within the last year, have y ou been kicked, hit, slapped, or otherwise physically hurt by your partner or ex-partner? No 04/14/2022 Within the last year, have y ou been raped or forced to have any kind of sexual activity by your partner or ex-partner? No 04/14/2022 Social Connection and Isolation Panel [NHANES] A nswer Date Recorded In a typical week, how many times do you talk on the phone with family, friends, or neighbors? Twice a week 04/14/2022 How often do you get together with friends or re latives? Twice a week 04/14/2022 How often do you attend sabianist or gnosticism serv ices? Never 04/14/2022 Do you belong to any clubs o r organizations such as sabianist groups, unions, fraternal or athletic groups, or [...] care, and heating? Not hard at all 04/14/2022 PHQ-2 Answer Date Recorded PHQ-2 Score - If the patient scores above 3, please move on to questions 3-9 0 04/14/2022 [facility] - Occupational [...] the money to buy more. Never true 04/14/20 22 Within the past 12 months, t he food you bought just didn't last and you didn't have money to get more. Never true 04/14/2022 PRAPARE - Transportation Answer Date Re corded In the past 12 months, has l ack of transportation kept you from medical appointments or from getting medications? No 04/04 In the past 12 months, has l ack of transportation kept you from meetings, work, or from getting things needed for daily living? No 04/14/2022 Housing Stability Vital Sign Answer Marv e Recorded In the last 12 months, was t here a time when you were not able to pay the mortgage or rent on time? No 04/14/2022 In the last 12 months, how many places have you lived? 1 04/14/2022 In the last 12 months, was t here a time when you did not have a steady place to sleep or slept in a snf (including now)? No 04/14/2022 Sex and Gender Information Value Date Recorded Sex Assigned at Not on file Legal Sex Male 5:44 PM [employer] Gender Identity Male 04/14/2022 9:23 PM CDT Sexual Orientation Straight 04/14/2022 9: 23 PM CDT COVID-19 Exposure Response Date Recorded In the last 10 days, have yo u been in contact with someone who was confirmed or suspected to have Coronavirus/COVID-19? No / Unsure 10/27/2022 5:40 PM CDT documented as of this encounter Last Filed Vital Signs Vital Sign Reading Time Taken Comments Blood Pressure 142/87 10/27/2022 9:36 PM CDT Pulse 90 10/27/2022 5:58 PM CDT Temperature 35.6 ??C (96 ??F) 10/27/2022 9:22 PM CDT Respiratory Rate 16 10/27/2022 5:58 PM CDT Oxygen Saturation 94% 10/27/2022 9:30 PM CDT Inhaled Oxygen Concentration - - Weight 75.3 kg (166 lb) 10/27/2022 5:58 PM CDT Height 167.6 cm (5' 6 ) 10/27/2022 5:58 PM CDT Body Mass Index 26.79 10/27/2022 5:58 PM CDT documented in this encounter Functional Status * RETIRED Are you deaf or do you have serious difficulty hearing Answer Date of Assessment Author Status No 04/14/2022 9:31 PM CDT Activ e * RETIRED Are you blind or do you have serious difficulty seeing, even when wearing glasses? Answer Date of Assessment Author Status No 04/14/2022 9:31 PM CDT Activ e * Do you have serious difficulty walking or climbing stairs? Answer Date of Assessment Author Status No 04/14/2022 9:31 PM CDT Zora De La Torre RN Active * Do you have difficulty dressing or bathing? Answer Date of Assessment Author Status No 04/14/2022 9:31 PM CDT Zora De La Torre RN Active * Because of a physical, mental, or emotional condition, do you have difficulty doing errands alone such as visiting a doctor's office or shopping? Answer Date of Assessment Author Status No 04/14/2022 9:31 PM CDT Zora De La Torre RN Active documented as of this encounter Mental Status * Because of a physical, mental, or emotional condition, do you have serious difficulty concentrating, remembering, or making decisions? Answer Entry Date Author Status No 04/14/2022 9:31 PM CDT Zora De La Torre RN Active documented in this encounter Discharge Instructions * Attachments The following attachments cannot be sent through Care Everywhere. * Sore Throat Discharge Instructions, Adult (Fijian) * Viral Pharyngitis (Fijian) documented in this encounter Medications at Time of Discharge albuterol sulfate HFA 108 (90 Base) MCG/ACT inhaler Inhale 2 puffs into the lungs every 6 (six) hours as needed for Wheezing. 8 g 04/06/2022 3 apixaban (ELIQUIS) 5 MG tablet Take 1 tablet (5 mg total) by mouth 2 (two) times daily. 60 tablet 04/16/2022 3 diphenhydrAMINE (BENADRYL) 12.5 MG/5ML liquid Take 5 mLs (12.5 mg total) by mouth 4 (four) times daily as needed for Itching. 09/30/2022 3 DULoxetine (CYMBALTA) 60 MG capsule Take 1 capsule (60 mg total) by mouth daily. 10/27/2022 4 HYDROcodone-vernon taminophen (NORCO) 5-325 MG tablet Take 1 tablet by mouth every 6 (six) hours. 4 lidocaine viscous (XYLOCAINE) 2 % solution Take 5 mLs by mouth as needed (sore throat). Gargle and spit as needed for sore throat. 60 mL 10/27/2022 3 naloxone (NARCAN) 4 MG/0.1ML nasal spray 1 spray by Nasal route as needed for Opioid reversal. 08/01/2022 4 PREDNISONE OR Take 70 mg by mouth see administration instructions. Takes it daily from day 9-17 of treatment regimen (while on filgrastim) 3 documented as of this encounter ED Notes * Ovidio Richard MD - 10/27/2022 9:51 PM CDT Chief Complaint Chief Complaint Patient presents with Sore Throat History of Present Illness 32-year-old male complaining of sore throat for 2 days. Patient has a history of Hodgkin's lymphomaand last took chemotherapy pill October 20. Patient feels that his throat is swollen and the uvula islarge. Patient says that the throat pain is severe. Patient complains of chills. Patient complains of difficulty swallowing. Symptoms are constant. Medical History ALLERGIES: Review of patient's allergies indicates: No Known Allergies MEDICATIONS: Prior to Admission medications Medication Sig Start Date End Date Taking? Authorizing Provider lidocaine viscous (XYLOCAINE) 2 % solution Take 5 mLs by mouth as needed (sore throat). Gargle and spit as needed for sore throat. 10/27/22 11/01/22 Yes Ovidio Richard MD predniSONE 50 MG tablet Take 70 mg by mouth daily. Yes GENERICPROVIDER, DEFAULT HISTORY albuterol sulfate HFA 108 (90 Base) MCG/ACT inhaler Inhale 2 puffs into the lungs every 6 (six) hours as needed for Wheezing. 04/06/22 Beverly Juarez, ANP-BC apixaban (ELIQUIS) 5 MG tablet Take 1 tablet (5 mg total) by mouth 2 (two) times daily. 04/16/22 Zainab Tyson ASSISTANT INVENTORY MANAGER-BC HYDROcodone-acetaminophen (NORCO) 5-325 MG tablet Take 1 tablet by mouth every 6 (six) hours as needed for Pain. GENERICPROVIDER, DEFAULT HISTORY PAST MEDICAL HISTORY: Past Medical History: Diagnosis Date Hodgkin lymphoma, unspecified, unspecified site (CMS/HCC) PAST SURGICAL HISTORY: Past Surgical History: Procedure Laterality Date BIOPSY BONE BIOPSY/EXCISION, LYMPH NODE(S) FAMILY HISTORY: Family History Problem Relation Name Age of Onset Cancer Mother Cancer Sister SOCIAL HISTORY: Social History Tobacco Use Smoking status: Every Day Types: Cigarettes Smokeless tobacco: Never Tobacco comments: not smoking very much lately Vaping Use Vaping Use: Never used Substance Use Topics Alcohol use: Yes Comment: decreased etoh use Drug use: Yes Frequency: 1.0 times per week Types: Methamphetamines, Marijuana Comment: no meth for one week Review of Systems Review of Systems Constitutional: Positive for chills. Negative for fever. HENT: Negative for voice change. Eyes: Negative for discharge. Respiratory: Negative for wheezing. Cardiovascular: Negative for leg swelling. Gastrointestinal: Negative for abdominal pain. Skin: Negative for color change. Neurological: Negative for speech difficulty. Psychiatric/Behavioral: Negative for agitation. All other systems reviewed and are negative. Physical Exam Filed Vitals: 10/27/22211410/27/22212110/27/22212910/27/222135 BP: (!) 142/87 Pulse: Resp: Temp: 96 ??F (35.6 ??C) TempSrc: Temporal SpO2: 96% 94% Weight: Height: Physical Exam Constitutional: General: He is not in acute distress. Appearance: He is well-developed. He is not ill-appearing or toxic-appearing. HENT: Head: Atraumatic. Mouth/Throat: Pharynx: Posterior oropharyngeal erythema present. Comments: Patient has trismus and has strong gag reflex thereby making visualization of the posterior pharynx difficult. Eyes: Conjunctiva/sclera: Conjunctivae normal. Neck: Comments: Normal inspection Cardiovascular: Rate and Rhythm: Normal rate and regular rhythm. Heart sounds: No murmur heard. Pulmonary: Effort: No respiratory distress. Breath sounds: Normal breath sounds. No stridor. No wheezing. Musculoskeletal: General: Normal range of motion. Skin: General: Skin is dry. Neurological: General: No focal deficit present. Mental Status: He is alert. Psychiatric: Mood and Affect: Mood normal. Diagnostic Studies / Procedures ELECTROCARDIOGRAMS: No results found for this visit on 10/27/22. LABORATORY STUDIES: Results for orders placed or performed during the hospital encounter of 10/27/22 CBC W/DIFF AUTOMATED Result Value Ref Range WBC 1.93 (L) 4.00 - 10.80 x10'3/uL RBC 3.69 (L) 4.50 - 6.10 x10'6/uL HGB 8.7 (L) 13.0 - 18.0 G/DL HCT 27.2 (L) 37.0 - 52.0 % MCV 73.7 (L) 78.0 - 100.0 FL MCH 23.6 (L) 27.0 - 31.0 PG MCHC 32.0 (L) 33.0 - 36.0 G/DL RDW 19.9 (H) 11.5 - 14.5 % PLT 123 (L) 150 - 350 x10'3/uL MPV 9.6 7.4 - 10.4 FL CBC COMMENT NORMAL REFERENCE RANGE NOT ESTABLISHED FOR THE PROPORTIONAL LEUKOCYTE DIFFERENTIAL. SEG NEUTROPHILS 47 % LYMPHOCYTES 14 % MONOCYTES 37 % EOSINOPHILS 2 % ABS SEGMENTED NEUTS 0.91 (L) 1.60 - 8.30 x10'3/uL ABS. LYMPHOCYTES 0.27 (L) 0.80 - 4.70 x10'3/uL ABS. MONOCYTES 0.71 0.10 - 1.50 x10'3/uL ABS. EOSINOPHILS 0.04 0.00 - 0.40 x10'3/uL PLT MORPH. NORMAL RBC MORPHOLOGY NORMAL BASIC METABOLIC PANEL Result Value Ref Range SODIUM S/P/B 138 136 - 145 MMOL/L POTASSIUM S/P/B 3.8 3.5 - 5.1 MMOL/L CHLORIDE S/P/B 101 98 - 107 MMOL/L CO2 30.3 21.0 - 32.0 MMOL/L GLUCOSE 86 70 - 99 MG/DL BUN 19 6 - 24 MG/DL CREATININE S/P/B 0.70 0.70 - 1.30 MG/DL CALCIUM 8.9 8.4 - 10.5 MG/DL ANION GAP 6.7 5.0 - 15.0 MMOL/L OSMOLALITY (CALC) 288 MOSM/KG GFR ESTIMATE >90 >89 ML/MIN/1.73 M2 GFR NOTES GFR REFERENCES: INFLUENZA A & B Specimen: NASAL Result Value Ref Range SPECIMEN TYPE (INFLUENZA) NASAL INFLUENZA A NEGATIVE NEGATIVE INFLUENZA B NEGATIVE NEGATIVE RAPID STREP A Specimen: THROAT Result Value Ref Range SPECIMEN SOURCE THROAT RAPID STREP TEST NEGATIVE NEGATIVE CORONAVIRUS (COVID-19) ANTIGEN DIRECT OPTICAL Specimen: NASAL Result Value Ref Range CORONAVIRUS ANTIGEN IA NEGATIVE NEGATIVE Specimen Type NASAL IMAGING STUDIES CT SOFT TISSUE NECK W CON Final Result by User, [id number] (10/27 2109) EXAMINATION: CT SOFT TISSUE NECK W CON INDICATION: SWELLING, CONCERN FOR ABSCESS/INFECTION; SWELLING, CONCERN FOR MASS TUMOR TECHNIQUE: CT examination of the neck was performed after administration of 95 mL of Isovue-370 intravenous contrast without adverse event with axial and multiplanar reformatted images obtained.A radiation dose lowering technique was used for this procedure, which may include, but is not limited to, dose reduction technique, automated exposure control, the use of iterative reconstruction, ALARA (As Low As Reasonably Achievable) techniques, and Image Gently techniques. COMPARISON: CT 04/14/2022. FINDINGS: The oral cavity, nasopharynx, oropharynx, hypopharynx, and larynx are unremarkable. The neck vasculature is unremarkable. The thyroid and major salivary glands are unremarkable. Significantly improved cervical and upper chest lymphadenopathy since the prior study from April 2022. Images of the intracranial compartment reveal no abnormal enhancement or acute appearing abnormalities. Mastoid air cells, paranasal sinuses, and orbits are unremarkable. Images of the chest reveal no acute appearing abnormalities. The right-sided chest port is redemonstrated. Osseous structures are unremarkable. IMPRESSION: 1. No acute abnormalities identified within the cervical soft tissues. 2. Significantly improved cervical and upper chest lymphadenopathy since the prior study from April 2022. Ordered By: OVIDIO RICHARD Interpreted By: Bean Cisneros MD, 10/27/2022 9:01 PM ED Course / Medical Decision Making Medical Decision Making CT of the neck will be obtained due to difficulty of obtaining a good exam from trismus and patient's strong gag reflex. CT will be obtained also because patient is immunosuppressed. Patient able to drink GI cocktail. Patient will be discharged on viscous lidocaine. Patient is already on prednisone. Amount and/or Complexity of Data Reviewed Labs: ordered. Radiology: ordered. Clinical Impression Pharyngitis, unspecified etiology (Primary) Uvulitis Disposition: Discharge Ovidio Richard MD 10/28/22 0558 * Chhaya Morrow RN - 10/27/2022 9:31 PM CDT [place] cab called for transportation home * Juany Coello RN - 10/27/2022 5:53 PM CDT Mom brings her son in for a sore throat x 2 days. He was to get chemo Wednesday but his counts were low and he received 2 units of blood. He is to receive chemo tomm. documented in this encounter Plan of Treatment Not on file documented as of this encounter Goals Goal Patient Goal Type Associated Problems Recent Progress Patient-Stated? Author Safety ? Patient/family will have appropriate support at home upon discharge Lifestyle Rama Peters RN documented as of this encounter Procedures Procedure Name Priority Date/Time Associated Diagnosis Comments CT SOFT TISSUE NECK W CON STAT 10/27/2022 8:08 PM CDT BASIC METABOLIC PANEL STAT 10/27/2022 7:40 PM CDT CBC W/DIFF AUTOMATED STAT 10/27/2022 7:40 PM CDT RAPID STREP A STAT 10/27/2022 5:56 PM CDT HC EIA QL INFLUENZA A/B AG STAT 10/27/2022 5:56 PM CDT CORONAVIRUS (COVID-19) ANTIGEN DIRECT OPTICAL STAT 10/27/2022 5:47 PM CDT documented in this encounter Results * CT SOFT TISSUE NECK W CON (10/27/2022 8:08 PM CDT) Anatomical Region Laterality Modality Neck Computed Tomogra phy 10/27/2022 9:01 PM CDT Impressions 10/27/2022 9:07 PM CDT IMPRESSION: 1. No acute abnormalities identified within the cervical soft tissues. 2. Significantly improved cervical and upper chest lymphadenopathy since the prior study from April 2022. Ordered By: OVIDIO RICHARD Interpreted By: Bean Cisneros MD, 10/27/2022 9:01 PM Narrative 10/27/2022 9:07 PM CDT EXAMINATION: CT SOFT TISSUE NECK W CON INDICATION: SWELLING, CONCERN FOR ABSCESS/INFECTION; SWELLING, CONCERN FOR MASS TUMOR TECHNIQUE: CT examination of the neck was performed after administration of 95 mL of Isovue-370 intravenous contrast without adverse event with axial and multiplanar reformatted images obtained.A radiation dose lowering technique was used for this procedure, which may include, but is not limited to, dose reduction technique, automated exposure control, the use of iterative reconstruction, ALARA (As Low As Reasonably Achievable) techniques, and Image Gently techniques. COMPARISON: CT 04/14/2022. FINDINGS: The oral cavity, nasopharynx, oropharynx, hypopharynx, and larynx are unremarkable. The neck vasculature is unremarkable. The thyroid and major salivary glands are unremarkable. Significantly improved cervical and upper chest lymphadenopathy since the prior study from April 2022. Images of the intracranial compartment reveal no abnormal enhancement or acute appearing abnormalities. Mastoid air cells, paranasal sinuses, and orbits are unremarkable. Images of the chest reveal no acute appearing abnormalities. The right-sided chest port is redemonstrated. Osseous structures are unremarkable. Procedure Note Bean Cisneros MD - 10/27/2022 EXAMINATION: CT SOFT TISSUE NECK W CON INDICATION: SWELLING, CONCERN FOR ABSCESS/INFECTION; SWELLING, CONCERN FORMASS TUMOR TECHNIQUE: CT examination of the neck was performed after administration of 95 mL ofIsovue- 370 intravenous contrast without adverse event with axial andmultiplanar reformatted images obtained.A radiation dose loweringtechnique was used for this procedure, which may include, but is notlimited to, dose reduction technique, automated exposure control, the useof iterative reconstruction, ALARA (As Low As Reasonably Achievable)techniques, and Image Gently techniques. COMPARISON: CT 04/14/2022. FINDINGS: The oral cavity, nasopharynx, oropharynx, hypopharynx, and larynx areunremarkable. The neck vasculature is unremarkable. The thyroid and majorsalivary glands are unremarkable. Significantly improved cervical and upper chest lymphadenopathy since theprior study from April 2022. Images of the intracranial compartment reveal no abnormal enhancement oracute appearing abnormalities. Mastoid air cells, paranasal sinuses, andorbits are unremarkable. Images of the chest reveal no acute appearing abnormalities. Theright-sided chest port is redemonstrated. Osseous structures are unremarkable. IMPRESSION: 1. No acute abnormalities identified within the cervical soft tissues. 2. Significantly improved cervical and upper chest lymphadenopathy sincethe prior study from April 2022. Ordered By: OVIDIO RICHARD Interpreted By: Bean Cisneros MD, 10/27/2022 9:01 PM Ovidio Richard MD CT Final Result * BASIC METABOLIC PANEL (10/27/2022 7:40 PM CDT) SODIUM S/P/B 138 136 - 145 MMOL/L 10/27/2022 7:53 PM CDT [facility] POTASSIUM S/P/B 3.8 3.5 - 5.1 MMOL/L 10/27/2022 7:53 PM CDT [facility] CHLORIDE S/P/B 101 98 - 107 MMOL/L 10/27/2022 7:53 PM CDT [facility] CO2 30.3 21.0 - 32.0 MMOL/L 10/27/2022 7:53 PM T [facility] GLUCOSE 86 70 - 99 MG/DL 10/27/2022 7:53 PM T [facility] Comment: FASTING GLUCOSE 100 TO 125 MG/DL IS CONSISTENT WITH IMPAIRED FASTING GLUCOSE. FASTING GLUCOSE >125 MG/DL IS CONSISTENT WITH DIABETES. RANDOM GLUCOSE >200 MG/DL WITH HYPERGLYCEMIC SYMPTOMS IS CONSISTENT WITH DIABETES. PER ADA GUIDELINES BUN 19 6 - 24 MG/DL 10/27/2022 7:53 PM CDT [facility] CREATININE S/P/B 0.70 0.70 - 1.30 MG/DL 10/27/2022 7:53 PM T [facility] CALCIUM S/P/B 8.9 8.4 - 10.5 MG/DL 10/27/2022 7:53 PM T [facility] ANION GAP 6.7 5.0 - 15.0 MMOL/L 10/27/2022 7:53 PM T [facility] OSMOLALITY (CALC) 288 MOSM/KG 023 7:53 PM T [facility] Comment:REFERENCE RANGE NOT ESTABLISHED GFR ESTIMATE >90 >89 ML/MIN/1. 73 M2 10/27/2022 7:53 PM T [facility] GFR NOTES GFR REFERENCE S: 10/27/2022 7:53 PM T [facility] Comment: THE ESTIMATED GFR IS CALCULATED USING THE 2020 CKD-EPI EQUATION. THE FOLLOWING CATEGORIES FOR GRADING RENAL FUNCTION ARE RECOMMENDED BY THE INTERNATIONAL SOCIETY OF NEPHROLOGY (KDIGO 2012 CLINICAL PRACTICE GUIDELINE). G1,NORMAL OR HIGH: >89 ml/min/1.73 m2 G2,MILDLY DECREASED: 60-89 ml/min/1.73 m2 G3A,MILDLY TO MODERATELY DECREASED: 45-59 ml/min/1.73 m2 G3B,MODERATELY TO SEVERELY DECREASED: 30-44 ml/min/1.73 m2 G4,SEVERELY DECREASED: 15-29 ml/min/1.73 m2 G5,KIDNEY FAILURE: <15 ml/min/1.73 m2 10/27/2022 7:40 PM CDT us Ovidio Richard MD LABORATORY Final Result [facility] [address] [place] [address], * (ABNORMAL) CBC W/DIFF AUTOMATED (10/27/2022 7:40 PM CDT) WBC 1.93(L) 4.00 - 10.80 x10'3/uL 10/27/2022 7:56 PM CDT [facility] RBC 3.69(L) 4.50 - 6.10 x10'6/uL 10/27/2022 7:56 PM CDT [facility] HGB 8.7(L) 13.0 - 18.0 G/DL 10/27/2022 7:56 PM CDT [facility] HCT 27.2(L) 37.0 - 52.0 % 10/27/2022 7:56 PM CDT [facility] MCV 73.7(L) 78.0 - 100.0 FL 10/27/2022 7:56 PM CDT [facility] MCH 23.6(L) 27.0 - 31.0 PG 10/27/2022 7:56 PM CDT [facility] MCHC 32.0(L) 33.0 - 36.0 G/DL 10/27/2022 7:56 PM CDT [facility] RDW 19.9(H) 11.5 - 14.5 % 10/27/2022 7:56 PM CDT [facility] PLT 123(L) 150 - 350 x10'3/uL 10/27/2022 7:56 PM CDT [facility] MPV 9.6 7.4 - 10.4 FL 10/27/2022 7:56 PM CDT [facility] CBC COMMENT NORMAL REFERENCE RANGE NOT ESTABLISHED FOR THE PROPORTIONAL LEUKOCYTE DIFFERENTIAL. 10/27/2022 7:56 PM CDT [facility] SEG NEUTROPHILS 47 % 8:11 PM CDT [facility] LYMPHOCYTES 14 % 10/27/2022 8:11 PM CDT [facility] MONOCYTES 37 % 10/27/2022 8:11 PM CDT [facility] EOSINOPHILS 2 % 10/27/2022 8:11 PM CDT [facility] ABS SEGMENTED NEUTS 0.91(L) 1.60 - 8.30 x10'3/uL 10/27/2022 8:11 PM CDT [facility] ABS. LYMPHOCYTES 0.27(L) 0.80 - 4.70 x10'3/uL 10/27/2022 8:11 PM CDT [facility] ABS. MONOCYTES 0.71 0.10 - 1.50 x10'3/uL 10/27/2022 8:11 PM CDT [facility] ABS. EOSINOPHILS 0.04 0.00 - 0.40 x10'3/uL 10/27/2022 8:11 PM CDT [facility] PLT MORPH. NORMAL 10/27/2022 8:11 PM CDT [facility] RBC MORPHOLOGY NORMAL 10/27/2022 8:11 PM CDT [facility] 10/27/2022 7:40 PM CDT us Ovidio Richard MD LABORATORY Final Result Performing Organization Address City/State/[facility] Co de Phone Number [facility] [address] [place] [address], * RAPID STREP A (10/27/2022 5:56 PM CDT) SPECIMEN SOURCE THROAT 10/27/2022 5:57 PM CDT [facility] RAPID STREP TEST NEGATIVE NEGATIVE 10/27/2022 6:33 PM CDT [facility] STRUCTURE OF ANTERIOR PORTION OF NECK / Unknown 10/27/2022 5:56 PM CDT us Ovidio Richard MD MICROBIOLOGY - GENERAL ORDERABLE S Final Result [facility] [address] [place] [address], * INFLUENZA A & B (10/27/2022 5:56 PM CDT) SPECIMEN TYPE (INFLUENZA) NASAL 10/27/2022 5:57 PM CDT [facility] INFLUENZA A NEGATIVE NEGATIVE 10/27/2022 6:45 PM CDT [facility] INFLUENZA B NEGATIVE NEGATIVE 10/27/2022 6:45 PM CDT [facility] Comment: A NEGATIVE RESULT DOES NOT EXCLUDE INFLUENZA VIRUS INFECTION. ??IF INFLUENZA IS CIRCULATING IN YOUR COMMUNITY, A DIAGNOSIS OF INFLUENZA SHOULD BE CONSIDERED BASED ON A PATIENT'S CLINICAL PRESENTATION AND EMPIRIC ANTIVIRAL TREATMENT SHOULD BE CONSIDERED IF INDICATED. NASAL STRUCTURE / Unknown 10/27/2022 5:56 PM CDT Ovidio Richard MD MICROBIOLOGY - GENERAL ORDERABLE S Final Result Performing Organization Address City/[facility]/ZIP Co de Phone Number [facility] [address] [place] [id number], * CORONAVIRUS (COVID-19) ANTIGEN DIRECT OPTICAL (10/27/2022 5:47 PM CDT) CORONAVIRUS ANTIGEN IA NEGATIVE NEGATIVE 10/27/2022 6:37 PM CDT [facility] Comment: NEGATIVE RESULTS DO NOT RULE OUT SARS-COV-2 INFECTION AND SHOULD NOT BE USED THE SOLE BASIS FOR TREATMENT OR PATIENT MANAGEMENT DECISIONS, INCLUDING INFECTION CONTROL DECISIONS. NEGATIVE RESULTS SHOULD BE CONSIDERED IN THE CONTEXT OF A PATIENT'S RECENT EXPOSURES, HISTORY AND THE PRESENCE OF CLINICAL SIGNS AND SYMPTOMS CONSISTENT WITH COVID 19. THIS TEST HAS BEEN AUTHORIZED BY THE FDA UNDER AN EMERGENCY USE AUTHORIZATION (EUA) FOR USE BY AUTHORIZED LABORATORIES. SPECIMEN TYPE NASAL 10/27/2022 5:57 PM CDT [facility] NASAL NASAL STRUCTURE / Unknown 10/27/2022 5:47 PM CDT Ovidio Richard MD MICROBIOLOGY - GENERAL ORDERABLE S Final Result [facility] [address] [place] [id number], documented in this encounter Visit Diagnoses Diagnosis Pharyngitis, unspecified etiology- Primary Uvulitis Cellulitis and abscess of oral soft tissues documented in this encounter Administered Medications Inactive Administered Medications - up to 3 most recent administrations Medication Order MAR Action Action Date Dose Rate Site heparin lock flush 10 unit/mL injection 50 Units 50 Units, Intracatheter, Once, 1 dose, On Wed10/27/22 at 2130 Given 10/27/2022 9:37 PM CDT 50 Units iopamidol (ISOVUE-370) 76 % injection 95 mL 95 mL, Intravenous, IMG once as needed, Contrast, 1 dose, Starting on Wed10/27/22 at 1999, Until Wed10/27/22 at 1999 Given 10/27/2022 8:00 PM CDT 95 mLs Port maalox plus-lidocaine viscous (GI COCKTAIL PLAIN) 45 mL suspension Oral, Once, 1 dose, On Wed10/27/22 at 2130 Given 10/27/2022 9:36 PM CDT sodium chloride 0.9% bolus infusion 1,000 mL 1,000 mL, Intravenous, Administer over 15 Minutes, Once, 1 dose, On Wed10/27/22 at 1930 New Bag 10/27/2022 7:39 PM CDT 1,000 mLs documented in this encounter Active and Recently Administered Medications Times are shown in CDT. Scheduled Medication Order 10/25/2022 10/26/2022 10/27/2022 heparin lock flush 10 unit/mL injection 50 Units (COMPLETED) 50 Units, Intracatheter, Once, 1 dose, On Wed10/27/22 at 2129 2136 (Given - Provid er: Chhaay Morrow RN) maalox plus-lidocaine viscous (GI COCKTAIL PLAIN) 45 mL suspension (COMPLETED) Oral, Once, 1 dose, On Wed10/27/22 at 2129 2135 (Given - Provid er: Chhaya Morrow RN) sodium chloride 0.9% bolus infusion 1,000 mL (COMPLETED) 1,000 mL, Intravenous, Administer over 15 Minutes, Once, 1 dose, On Wed10/27/22 at 1930 1939 (New Bag - Prov ider: Chhaya Morrow RN)8 (Infusion Stop Time - Provider: Chhaya Morrow RN) PRN Medication Order 10/25/2022 10/26/2022 10/27/2022 iopamidol (ISOVUE-370) 76 % injection 95 mL (COMPLETED) 95 mL, Intravenous, IMG once as needed, Contrast, 1 dose, Starting on Wed10/27/22 at 1999, Until Wed10/27/22 at 1999 1999 (Given - Provid er: Jordon Mendenhall RTR) documented in this encounter Additional Health Concerns Infection Onset Date Last Indicated Resolved Time 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
--- OUTSIDE RECORDS SUMMARY | 2024-06-25 06:49 | XMS_ITS | Encounter Summary ---
Author Organization [facility] Address [address] [place] [address]. [place] [address] [place] [address] Care Team Providers Care Can Line Examiner Name Role Phone Jay Narayanan Primary Care Provider [phone] Ambrocio Ashford MD Unavailable [phone] Reason for Referral * Imaging (Emergency) - Closed Specialty Diagnoses / Procedures Referred By Contac t Referred To Contact RADIOLOGY Procedures US GD LYMPH NODE BX Bryce Parks MD Phone: tel: fax: Referral ID Status Reason Start Date Expiration Date Visits Re quested Visits Authorized [id number] Closed 04/27/2023 04/27/2024 1 1 * (Routine) - Canceled Specialty Diagnoses / Procedures Referred By Contac t Referred To Contact Procedures OT eval and treat Bryce Parks MD Phone: tel: fax: Referral ID Status Reason Start Date Expiration Date V isits Requested Visits Authorized [id number] Canceled 04/27/2023 04/27/2024 1 1 * (Routine) - Canceled Specialty Diagnoses / Procedures Referred By Contac t Referred To Contact Procedures PT eval and treat Bryce Parks MD Phone: tel: fax: Referral ID Status Reason Start Date Expiration Date V isits Requested Visits Authorized [id number] Canceled 04/27/2023 04/27/2024 1 1 * Procedure (Routine) - Closed Specialty Diagnoses / Procedures Referred By Contac t Referred To Contact Procedures EEG routine EEG AWAKE OR DROWSY ROUTINE EEG Bryce Parks MD Phone: tel: fax: Referral ID Status Reason Start Date Expiration Date Visits Re quested Visits Authorized [id number] Closed 04/26/2023 04/26/2024 1 1 * Imaging (Urgent) - Closed Specialty Diagnoses / Procedures Referred By Contac t Referred To Contact RADIOLOGY Procedures MRI BRAIN W CON Bryce Parks MD Phone: tel: fax: Referral ID Status Reason Start Date Expiration Date Visits Re quested Visits Authorized [id number] Closed 04/26/2023 04/26/2024 1 1 * Imaging (Urgent) - Closed Specialty Diagnoses / Procedures Referred By Contac t Referred To Contact RADIOLOGY Procedures CT CHEST+ABD+PEL W CON Bryce Parks MD Phone: tel: fax: Referral ID Status Reason Start Date Expiration Date Visits Re quested Visits Authorized [id number] Closed 04/26/2023 04/26/2024 1 1 * Imaging (Urgent) - Closed Specialty Diagnoses / Procedures Referred By Contac t Referred To Contact RADIOLOGY Procedures MRI CERV SPINE WO CON MRI CERV SPINE WWO CON Barby Stevens III, MD [address] [place] [address] Phone: tel: fax: Referral ID Status Reason Start Date Expiration Date Visits Re quested Visits Authorized [id number] Closed 04/24/2023 04/24/2024 1 1 * Imaging (Urgent) - Closed Specialty Diagnoses / Procedures Referred By Contac t Referred To Contact RADIOLOGY Procedures USE ECHOCARDIOGRAM Brianna Francis DO [address] [place] [id number] Phone: tel: fax: Referral ID Status Reason Start Date Expiration Date Visits Re quested Visits Authorized [id number] Closed 04/25/2023 04/25/2024 1 1 * Imaging (Urgent) - Closed Specialty Diagnoses / Procedures Referred By Contac t Referred To Contact RADIOLOGY Procedures MRI BRAIN WO CON Barby Stevens III, MD [address] [place] [address] Phone: tel: fax: Referral ID Status Reason Start Date Expiration Date Visits Re quested Visits Authorized [id number] Closed 04/24/2023 04/24/2024 1 1 * Imaging (Urgent) - Closed Specialty Diagnoses / Procedures Referred By Contac t Referred To Contact RADIOLOGY Procedures MRI THOR SPINE WWO CON Barby Stevens III, MD [address] [place] [address] Phone: tel: fax: Referral ID Status Reason Start Date Expiration Date Visits Re quested Visits Authorized [id number] Closed 04/24/2023 04/24/2024 1 1 * Imaging (Urgent) - Closed Specialty Diagnoses / Procedures Referred By Contac t Referred To Contact RADIOLOGY Procedures MRI LUMB SPINE WWO CON Barby Stevens III, MD [address] [place] [address] Phone: tel: fax: Referral ID Status Reason Start Date Expiration Date Visits Re quested Visits Authorized [id number] Closed 04/24/2023 04/24/2024 1 1 Reason for Visit * Auth/Cert (Routine) Specialty Diagnoses / Procedures Referred By Contac t Referred To Contact Diagnoses Leg weakness, bilateral Non Hodgkin's lymphoma (CMS/HCC HHS/HCC) WEAKNESS Leg weakness, bilateral Non Hodgkin's lymphoma (HHS/HCC) (CMS/HCC) Procedures GENERAL Obed Maldonado MD [address] [place] [address] Phone: tel: fax: Referral ID Status Reason Start Date Expiration Date Visits Re quested Visits Authorized [id number] 1 1 Encounter Details Date Type Department Care Team (Latest Contact Info) Description 04/24/2023 9:28 PM CDT - 04/28/2023 9:11 AM CDT Hospital Encounter [facility] [address] [place] [address] Obed Maldonado MD [address] [place] [address] Barby Stevens III, MD [address] [place] [address] Bryce Parks MD [address] [place] [address] Discharge Disposition: Cancer Center or [facility] with a Planned Inpatient Readmission Social History Tobacco Use Types Packs/Day Years [...] week 04/24/2023 How often do you attend restoration or methodist serv ices? Never 04/24/2023 Do you belong to any clubs o r organizations such as restoration groups, unions, fraternal or athletic groups, or [...] move on to questions 3-9 0 04/14/2022 [facility] - Occupational Stress [...] money to buy more. Never true 04/24/20 Within the past 12 months, t he [...] place to sleep or slept in a long term (including now)? 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 Gender Identity Male 04/14/2022 9:23 PM CDT Sexual Orientation Straight 04/14/2022 9: 23 PM CDT documented as of this encounter Last Filed Vital Signs Vital Sign Reading Time Taken Comments Blood Pressure 101/50 04/28/2023 8:23 AM CDT Pulse 79 04/28/2023 8:23 AM CDT Temperature 36.4 ??C (97.5 ??F) 04/28/2023 8:23 AM CD T Respiratory Rate 20 04/27/2023 9:21 PM CDT Oxygen Saturation 92% 04/28/2023 8:23 AM CDT Inhaled Oxygen Concentration - - Weight 71 kg (156 lb 8.4 oz) 04/24/2023 9:42 PM CDT Height 171 cm (5' 7.32 ) 04/24/2023 9:42 PM CDT Body Mass Index 24.28 04/24/2023 9:42 PM CDT documented in this encounter Functional Status * Question Answer Date of Assessment Author Status Do you have serious difficulty walking or climbing stairs? No 04/24/2023 10:00 PM CDT Delphine Fairchild RN Ac tive * Question Answer Date of Assessment Author Status Do you have difficulty dressing or bathing? No 04/24/2023 10:00 PM CDT Delphine Fairchild R N Active Because of a physical, mental, or emotional condition, do you have difficulty doing errands alone such as visiting a doctor's office or shopping? Yes 04/24/2023 10:00 PM CDT Delphine Fairchild RN Act case * Are you deaf or do you have serious difficulty hearing Answer Date of Assessment Author Status No 04/24/2023 10:00 PM LIZBETHT Delphine Fairchild RN Active * Are you [...] as of this encounter Mental Status * Question Answer Entry Date Author Status Because of a physical, mental, or emotional condition, do you have serious difficulty concentrating, remembering, or making decisions? No 04/24/2023 10:00 PM CDT Delphine Fairchild RN Active * Because of a physical, mental, or emotional condition, do you have serious difficulty concentrating, remembering, or making decisions? Answer Entry Date Author Status No 04/24/2023 10:00 PM CDT Delphine Fairchild RN Active documented in this encounter Discharge Summaries * Bryce Parks MD - 04/28/2023 8:15 AM CDT Physician Discharge Summary Patient ID: Crystal Capone [id number] 33-year-old 1990 Admit date: 04/24/2023 Expected Discharge Date: 04/28/2023 Primary care Physician: JAY NARAYANAN DO Admitting Physician: Obed Maldonado MD Discharge Physician: BRYCE PARKS MD Admission Diagnoses: Leg weakness, bilateral [R29.898] Non Hodgkin's lymphoma (HHS/HCC) (CMS/HCC) [C85.90] Discharge Diagnoses: cervical intraspinal and vertebral lesions Lumbar mets Spinal canal stenosis Refractory lymphoma Sepsis unknown source Anemia Discharged Condition: stable Hospital Course: 33-year-old male with Refractory Stage ALANA Hodgkin lymphoma, 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 Ashford Recent admission for acute respiratory failure due to pneumonia, with septic shock requiring intubation and vasopressor support Systolic congestive heart failure, EF 45 to 50% on recent echocardiogram with basal anteroseptal, basal inferior, mid anteroseptal, and mid inferior hypokinesis, chronicity undetermined Mitral regurgitation Troponinemia without obstructive coronary artery disease Pancytopenia Smoker Anxiety depression Patient was admitted here 12/14/2022 to 12/21/2022 after presenting with generalized fatigue, vomiting, cough, found to be hypotensive, tachycardic, febrile, initially in respiratory failure requiring intubation briefly. He was found to be in septic shock requiring vasopressor support. The source wasthought to be a right upper lobe pneumonia. His lactic acid was highly elevated 8.7. He was pancytopenic, Hemoglobin was 6.8 on 12/16, and he required transfusion. He was seen by ID and treated with broad-spectrum antibiotics. Troponin was elevated, thought to be due to demand ischemia, and he underwent coronary angiography which did not show any obstructive coronary artery disease. Echocardiogramshowed mildly reduced left ventricular systolic function, and he was treated medically. He was in acute renal failure which resolved prior to discharge. He was seen by hematology-oncology, receiving filgrastim. His oxygenation improved, and no longer needed supplemental oxygen, and he was discharged home on oral levofloxacin. Patient's chemotherapy was stopped during treatment for this infection. In the ED, vitals were normal and stable. CBC showed WBC 5.7, hemoglobin 7.2, MCV 75.9, platelets 460. CMP showed sodium 136, potassium 4.6, chloride 98, bicarb 32, BUN 20, creatinine 1.37, glucose 90. AST and ALT were low, alk phos high at 311. Lactate negative. Serum osmolality low at 284. CT of the brain without contrast showed no acute intracranial process. CT of the C-spine showed mixed sclerotic/lytic lesions in C4 and C5. 5 mm left paracentral soft tissue extension into the canal at the level of C4. Consider MRI of the cervical spine with and withoutcontrast. Moderate left pleural effusion. Mild pulmonary edema. Oncology and spinal surgery were consulted, and patient was transferred here for further care. Currently he reports pain. Admitted for cervical intraspinal and vertebral lesions Lumbar mets Spinal canal stenosis -Patient presented with pain, leg giving away -MRI C/T/L compelted -has spinal mets -ortho spine eval done, no signs of cord compression -no acute surgical intervention needed - per ortho could offer corpectomy of C4 and C5 if tumor load in these bodies causes collapse or significant pain -Rad Onc consulted -CT sim done -getting palliative radiation for spinal lesions Blurred vision Normal eye movement Left eye blurry vision on right conjugate gaze - says improvement MRI brain repeat w contrast neg for mets or CVA Stage ALANA Hodgkin's lymphoma -Chemotherapy on hold since 11/24 -Hematology-oncology on consult as above, appreciate assistance, defer to them - refractory lymphoma with mets New lung mass S/p inguinal node biopsy May need lung biopsy to r/o secondary tumor as well [facility] d/w Lymphoma specialist Dr Sena at [place], accepted for transfer D/w connect Patient was transferred to [facility] Acute renal failure Resolved hypercalcemia -Calcium at outside facility elevated at 11.7, with albumin 1.8 S/p IVF Zometa Resolved Anemia S/p 1 PRBC No active bleeding stool occult awaited PPI Dc subq heparin Systolic congestive heart failure -EF recently found to be 45 to 50% on echocardiogram 12/16/2022 Repeat echo ordered No dyspnea -Patient has diffuse anasarca as well as scrotal edema and dyspnea on exertion but no orthopnea andis breathing comfortably on room air Sepsis Fever Tmax 102 Immunocompromised Possible PNA on CT Septic workup Bcx awaited Hemodynamics stable ID consulted Keep broad cov abx D/w Mother POA - at [phone] - updated about plan at transfer to [facility] -agreeable Patient was [facility] medical needs, request for transfer initiated by [facility] to accepting Lymphoma specialist dr Shasta Sena Pt was stable prior to transfer Optimized for transfer to [facility] Consults: Oncology, orthospine, ID, Rad Onc Code Status: Full Code Procedures/Significant Diagnostic Studies: US GD LYMPH NODE BX Final Result by User, [id number] (04/27 9609) IR ULTRASOUND-GUIDED RIGHT INGUINAL LYMPH NODE BIOPSY. HISTORY:33-year-old male with a Hodgkin's lymphoma presents for urgent inpatient right inguinal lymph node biopsy COMPARISON:CT chest abdomen pelvis with contrast, 04/26/2023. INTERVENTIONALISTS: STAFF: Sonja Rothman M.D coordinate measuring machine operator: Filiberto Loomis PA-C CONSENT: The risks, benefits and alternatives to the procedure were explained and informed consent was obtained.] Just before beginning the procedure, Juliann Limonducted a *time out* to verify the patient identity and the site and nature of the procedure to be performed. ANESTHESIA: Local anesthesia. 1% local lidocaine. FINDINGS: After review of previously acquired imaging, the patient was placed on the table into the planned pre-procedure position. Localizing scans were obtained with ultrasound over the expected target site and the skin was marked appropriately. After infiltration of the skin and deep tissues with local anesthetic, a 17- gauge introducer needle was advanced into the enlarged right inguinal lymph node from a lateral to medial approach utilizing concurrent real-time ultrasound visualization. Image documentation of access is maintained in the patient medical record. Once images showed satisfactory positioning in the peripheral aspect of the right inguinal lymph node. Three, 18 - gauge core biopsies were obtained and sent for analysis. The introducer needle was removed and manual pressure applied to obtain hemostasis. Post biopsy scan demonstrated no evidence of complication. The patient tolerated the procedure well with no immediate complications.No prophylactic procedural antibiotic was indicated for this procedure as there is no evidence supporting use for this procedure. The procedure was performed following all elements of maximal sterile barrier technique. The field was prepped in a sterile fashion and a large sterile field was used to protect the area of interest. All operators had a hand scrub for cutaneous antisepsis. All operators used sterile gown and gloves and wore a hat and a mask during the procedure. The procedure was performed using ultrasound guidance. A total of 21 permanent images were sent to PACS. IMPRESSION: Successful right inguinal lymph node ultrasound-guided biopsy. Three, [18] - gauge core biopsies were obtained and sent for pathologic analysis. Core biopsy specimens were given directly to on-site land acquisition specialist. Tissue specimens were confirmed to be adequate by the on-site [facility] land acquisition specialist. PLAN: 1. Transfer to inpatient room when recovery room criteria is met. 2. Follow-up pathology results. IR follow-up as needed. The attending radiologist, Dr. Rothman, was present for all critical portions of the procedure, has reviewed the images, and agrees with the content of this report. Ordered By: BRYCE PARKS Interpreted By: Sonja Rothman MD, 04/27/2023 12:44 PM USE ECHOCARDIOGRAM Final Result by User, [id number] (04/27 151) Echocardiography Report Pat.Name: CRYSTAL CAPONE Truman Pat.ID: [id number] .Date: 04/27/2023 Rubi.: [id number] NON-STAFF PROVIDER EWDPROV EWDPROV Exam Time: 8:37:00 AM Study Type:ECHO WITH CARDIAC DOPPLER COMP Height: 67 in Weight: 156 lb BSA: 1.82 m2 Age: 8 1990,33Y Sex: M BP: 137/56 HR: 89 bpm Sonogrphr: Naima Ayoub RDCS Pat. Stat.:Inpatient Room: 842 Reason for Study:Anasarca Procedures: 2D, M-mode, Doppler, Color Flow Race: W ++++++++++++++++++++++++++++++++++++ SUMMARY: ++++++++++++++++++++++++++++++++++++ The left ventricular size is normal. The calculated ejection fraction is 61%. The right ventricular size is normal. Right ventricular systolic function is normal. Inferior vena cava is small / collapsed suggestive of low right atrial pressure. Diffuse thickening of the posterior leaflet , no definite hypermobile structure. Consider a FRANCISCO if clinically appropriate. No evidence of hemodynamically significant valvular stenosis or regurgitation. ++++++++++++++++++++++++++++++++++++ FINDINGS: ++++++++++++++++++++++++++++++++++++ LV: The left ventricular size is normal. The calculated ejection fraction is 61%. Normal wall thickness. Left ventricular diastolic function is indeterminate Left ventricular filling pressure is normal. WM: Wall motion appears normal RV: The right ventricular size is normal. Right ventricular systolic function is normal. LA: The left atrial volume is normal RA: The right atrial size is normal. VIET: Small pericardial effusion AO: The aortic root measures 2.8 cm. The proximal ascending aorta measures 2.7cm. PA: Unable to reliably quantitate pulmonary systolic pressure. SVn: Inferior vena cava is small / collapsed suggestive of low right atrial pressure. Systemic veins not well visualized. AV: No evidence of aortic valve stenosis. No evidence of aortic valve regurgitation. MV: Trace mitral regurgitation. No evidence of mitral stenosis. Diffuse thickening of the posterior leaflet , no definite hypermobile structure. Consider a FRANCISCO if clinically appropriate. PV: No evidence of pulmonic valve stenosis. No evidence of pulmonic regurgitation. TV: A trace of tricuspid regurgitation. No evidence of tricuspid valve stenosis. ++++++++++++++++++++++++++++++++++++ MEASUREMENTS: ++++++++++++++++++++++++++++++++++++ DOPPLER LVOT LVOTpkPG 6 mmHg LVOTmnPG 3 mmHg LVOTpkVel 125 cm/s (70-110)* LVOT SV 72 ml LVOT TVI 21.8 cm AV Forward Flow AV TVI 22.3 cm AV pkPG 8 mmHg AV pkVel 145 cm/s (100-170) Area (TVI) 3.23 cm2 (3-5) AV mnVel 94.3 cm/s Area (Loki) 2.84 cm2 (3-5)* AV mnPG 4 mmHg MV Forward Flow MV DeTm 121 msec MV pkPG 3 mmHg MVA P1/2t 7.59 cm2 (4-6)* MV E/A 1.2 MV P1/2t 29 msec (30-60)+* MV pkE 72.8 cm/s (60-130) MV mnPG 2 mmHg MV pkA 60.4 cm/s TV Regurg Flow TV pkPG 17 mmHg TV pkVel 204 cm/s (30-70)* Lat E' Lat e 8.16 cm/s Lat E/E' Lat E/e 8.9 Med E' Med e 6.96 cm/s Med E/E' Med E/e 10.5 Aortic Valve Aortic Valve Ar 1.77 Aortic Valve Ve 0.86 AV DI Value 1 CHRISTIANO (VTI) Index Value 1.77 LV Mass 2D Value 112 g LV Mass Oxxsp8V Value 61.5 g/m2 RA Volume Atrial John 4.55 cm Atrial John 14.2 cm2 Atrial John 33.6 ml Right Ventricle Right Ventricle 15.1 cm/s 2D Left Ventricle LVIDd 4.66 cm (3.6-5.2) LV EF(Bi-Plane) 61.3 % (63-77)* LVIDs 3.42 cm (2.3-3.9) LVPW LVPWd 0.815 cm Ventricular Septum IVSd 0.693 cm Aorta Ao Rtd 2.82 cm (zsc 0.3) Ao Asc 2.68 cm (zsc 1.1) LVOT LVOT 2.05 cm Ratios IVS LA Biplane LAVol I BP 17 ml/m2 Right Ventricle Right Ventricle 4.29 cm Right Ventricle 2.78 cm Major [place] 8.08 cm RV AutoStrain RV Right Ventricle -19.2 % Right Ventricle -21.5 % MMODE TA Tricuspid Annul 2.48 cm <Electronic Signature> 04/27/2023 05:10 PM Alesha Ross M.D. MRI BRAIN W CON Final Result by User, [id number] (04/27 0994) EXAMINATION: MRI BRAIN W CONTRAST. Multiplanar postcontrast MR imaging of the brain was performed following intravenous administration of 14 in the Dotarem. INDICATION: Evaluate for brain metastasis, double vision, hx of mets/lymphoma. COMPARISON: MRI brain without contrast 04/25/2023. FINDINGS: No abnormal intracranial enhancement is seen on the postcontrast MR images of the brain. Anterior epidural soft tissue thickening noted in the cervical spine from C3 to C5 on the previous noncontrast MRI brain exam is not included on the postcontrast MR images; please refer to the MRI cervical spine exam of 04/25/2023 for further assessment. No abnormal intracranial dural or leptomeningeal enhancement is seen. No mass effect, midline shift, or acute osseous abnormality. Ventricles and sulci are normal for age. No abnormal extra-axial fluid collections. Normal villagomez-white differentiation is maintained. Persistent decreased T1 signal diffusely in the bone marrow, which may be normal for age, however marrow replacing process is not excluded. No significant paranasal sinus or mastoid air cell disease. Visualized orbits are unremarkable. IMPRESSION: 1. No abnormal intracranial enhancement is seen. 2. No acute intracranial abnormalities appreciated. 3. Decreased T1 signal diffusely in the bone marrow of the calvarium may be normal for age or less likely may represent a diffuse marrow replacing process. Please correlate clinically. Referred By: PROVIDER NON-STAFF Interpreted By: Matilda Chew MD, 04/27/2023 12:38 AM MRI THOR SPINE WWO CON Final Result by User, [id number] (04/27 4586) EXAMINATION: MRI Thoracic Spine without and with intravenous contrast. Multiplanar, multisequence MR imaging of thoracic spine was performed prior to and following intravenous administration of 14 mL Dotarem. The postcontrast MR images of the brain, thoracic and lumbar spine were obtained consecutively following intravenous administration of single dose of 14 mL Dotarem. INDICATION: Metastatic Hodgkin's lymphoma with cervical spinal lesion. COMPARISON: MRI cervical spine without contrast 04/25/2023 and MRI lumbar spine with and without contrast 04/26/2023. FINDINGS: There is preservation of the normal thoracic kyphosis. Normal vertebral body heights are maintained. Numerous osseous metastasis are seen in the included lower cervical, thoracic and included upper lumbar spine, most extensive in T1, T4, T5, T7 and T11 vertebral bodies with several small lesions also seen in the posterior elements of the thoracic spine with no pathological fracture seen in the thoracic spine. Preservation of normal thoracic kyphosis and normal vertebral heights and alignment in the thoracic spine. No significant disc bulge, disc herniation, spinal canal or foraminal stenosis in the thoracic spine. Normal signal intensity in the thoracic cord with no abnormal enhancement. Conus medullaris is better visualized on the MRI lumbar spine exam. Numerous metastatic rib lesions are also noted in the partially included bilateral rib cage. Small bibasilar pleural effusions. Please refer to the CT chest, abdomen and pelvis exam of 04/26/2023 for the extraspinal findings. IMPRESSION: 1. Numerous osseous metastasis scattered throughout the thoracic spine as detailed above with no acute pathological compression fracture identified. Preservation of vertebral heights in the thoracic spine. 2. No significant disc herniation, spinal canal or foraminal stenosis seen. 3. Please refer to the CT chest, abdomen, and pelvis with contrast exam of 04/26/2023 regarding the extraspinal findings. 4. Multiple metastatic lesions in the partially included bilateral rib cage. Referred By: PROVIDER NON-STAFF Interpreted By: Matilda Chew MD, 04/27/2023 12:39 AM MRI LUMB SPINE WWO CON Final Result by User, [id number] (04/27 313) EXAMINATION: MRI LUMB SPINE WITH AND WITH INTRAVENOUS CONTRAST. Multiplanar, multisequence MR imaging of lumbar spine was performed prior to and following intravenous administration of 14 mL Dotarem. The postcontrast MR images of the brain, thoracic and lumbar spine were obtained consecutively following intravenous administration of single dose of 14 mL Dotarem. INDICATION: Metastatic Hodgkin's lymphoma with cervical spinal lesion. COMPARISON: MRI cervical spine without contrast 04/25/2023 and MRI lumbar spine with and without contrast 04/26/2023. INDICATION: Metastatic Hodgkin's lymphoma with cervical spinal lesion. COMPARISON: MRI thoracic spine exam with and without contrast and CT chest, abdomen and pelvis with contrast exams of 04/26/2023. TECHNIQUE: Three views of the lumbar spine were obtained FINDINGS: There are motion related artifacts, which may lower the sensitivity and specificity of the exam. Numerous enhancing osseous metastasis are seen in the lumbar spine and in the included lower thoracic spine and upper sacrum, most extensive in the L4 vertebral body in the lumbar spine. There is mild marrow expansion of the L4 and likely also of the L3 vertebral bodies. No compression fracture or other pathological fracture is identified on the MRI exam. There is enhancing epidural extension of neoplasm in the ventral spinal canal at the L4 vertebral level encroaching on the ventral spinal canal with moderate central canal stenosis at the L4 level. There is a nonenhancing CSF prominence in the posterior spinal canal from inferior L1 level to upper L3 level causing anterior displacement of the cauda equina, possibly from an arachnoid cyst, with posterior epidural neoplasm within the spinal canal less likely given the lack of abnormal enhancement, but please correlate clinically. There is concern for at least moderate spinal canal stenosis at the L2 level. Conus medullaris terminates at the L1-2 level with normal signal intensity without abnormal enhancement. No evidence of significant disc bulge or disc herniation in the lumbar spine. Paraspinal soft tissues are grossly unremarkable. Please refer to the CT chest, abdomen and pelvis exam of 04/26/2023 for the extraspinal findings. IMPRESSION: 1. Numerous osseous metastasis in the lumbar spine and included lower thoracic and sacral spine with small metastatic lesions also seen in a few posterior elements in the lumbar spine. 2. No pathological fracture. 3. Suspect ventral epidural extension of tumor into the ventral spinal canal at L4 level, likely expansion of L4 vertebral body osseous metastasis into the ventral spinal canal. Central canal stenosis at L4 level. 4. Nonenhancing CSF prominence or less likely nonenhancing epidural prominence of soft tissue in the posterior spinal canal from inferior L1 to upper L3 level is likely from an arachnoid cyst, with posterior epidural neoplasm less likely. 5. Exam is limited by motion related artifact, which may lower the sensitivity of the exam. Please see the CT chest, abdomen and pelvis with contrast exam of 04/26/2023 for the extraspinal findings. Referred By: PROVIDER NON-STAFF Interpreted By: Matilda Chew MD, 04/27/2023 12:[address] CHEST+ABD+PEL W CON Final Result by User, [id number] (04/26 719) EXAM: CT CHEST, ABDOMEN, and PELVIS with contrast INDICATION: Metastatic lesions and Hodgkin's lymphoma. COMPARISON: 12/15/2022. TECHNIQUE: Multidetector CT images were obtained through the chest, abdomen and pelvis after injection of 100 mL Isovue-370 IV contrast. Multiplanar reformatted images were created and reviewed. A dose lowering technique was used for this procedure, which may include, but is not limited to, dose reduction techniques, automated exposure control, the use of a iterative reconstruction, and ALARA (as low as reasonably achievable)/image gently techniques. FINDINGS: CT CHEST: Heart: Heart size is normal. There is a trace amount of pericardial fluid. Great vessels: Normal in caliber. Mediastinum and monica: Right chest Port-A-Cath is noted with catheter tip in the high right atrium. A few mildly prominent mediastinal lymph nodes are identified, most less than 1 cm short axis. A right hilar/peribronchial mode on image 50 measures 1 cm short axis. Pleura: There is a small, layering left pleural effusion. Lungs: In the central aspect of the right upper lobe, there is an irregularly-shaped mass with probable central necrosis measuring 3.7 cm craniocaudal by 5.6 cm transverse and 3.3 cm AP. On the most recent CT 12/15/2022, this area was involved by densely consolidative pneumonia, which may have obscured the mass. Inframedial aspect of the lesion extends along the bronchovascular pedicle to the superior right hilum. In the left lung, there is a perihilar distribution of tree-in-bud opacity which is new.. Other: Multiple enlarged but ill-defined nodes and heterogeneously enhancing soft tissue lesions are seen in the left supraclavicular fossa and extending along the left brachial plexus and left thoracic inlet, example axial images 6 through 16. In some areas, nodes are difficult to distinguish from the scalene muscles, but there is at least one probable enlarged node on axial image 8 measuring 1.3 cm short axis. Ill-defined intercostal soft tissue thickening is seen extending into the left first intercostal space. CT ABDOMEN: Liver: Unremarkable. Gallbladder and biliary tree: The common bile duct is nondilated. The gall bladder is normal. Pancreas: Normal. Spleen: Multiple vague hypoenhancing lesions are seen throughout the splenic parenchyma. The largest in the upper pole measures about 2.2 cm (example axial image 86) while the largest in the lower pole measures about 2.1 cm (image 109). Adrenal glands: Normal. Kidneys: The nephrograms are symmetric. However, there is a focal geographic area of renal cortical hypoenhancement in the superior pole of the right kidney, example axial image 117 and coronal image 51. See note below. Bowel: There is no evidence of bowel obstruction. Marked diffuse colonic stool retention is noted. Peritoneum: There is no ascites, pneumoperitoneum, or adenopathy. Retroperitoneum: The aorta is normal in caliber. There is diffuse retroperitoneal adenopathy which has substantially increased compared to 12/15/2022. For example, immediately below the level of the renal vessels, there are multiple enlarged nodes on axial image 125 with short axis dimension of up to 1.7 cm. Other: There is diffuse subcutaneous edema, likely reflecting hypoalbuminemia/third spacing. CT PELVIS: The urinary bladder is unremarkable. Prostate, seminal vesicles, rectum, appear normal. There is edema in the perirectal fat likely reflecting anasarca given more diffuse subcutaneous findings. There is bilateral inguinal adenopathy, right greater than left, with largest node on axial image 195 having a short axis diameter of 1.7 cm. There are numerous, mostly radiolucent osseous lesions which shows slight progression compared to 12/15/2022. In the pelvis, there is increased size of a roughly 2 cm lytic lesion in the left side of the pubic body resulting in increased cortical osteolysis. There are increased bilateral femoral neck lesions. Bilateral iliac bone lesions are seen. There is a pathologic fracture of the right side of the L4 vertebral body which shows little change. Multifocal lesions in the L2 vertebral body show increased size right of midline, but appear less prominent left of midline, possibly reflecting mixed treatment response. IMPRESSION: 1. Progressive multifocal adenopathy above and below the diaphragm, likely reflecting Hodgkin's lymphoma. Predominant sites of adenopathy include bilateral inguinal regions, upper retroperitoneum near the level of the renal vessels, and left supraclavicular fossa. Although somewhat ill-defined and difficult to differentiate from the scalene muscles, there may be adenopathy involving the left brachial plexus and extending into the first left rib interspace. In addition, numerous hypoenhancing splenic lesions have increased, also presumably related to lymphoma. 2. Previously in part obscured by pneumonia, there is better demonstration of a roughly 5 cm right upper lobe lung mass. It is unclear whether whether this may reflect extra lymphatic involvement of advanced stage Hodgkin disease, versus a second lung primary. 3. Tree-in-bud opacity in the central aspect of the left lung probably represents superimposed infection/aspiration. However, lymphangitic carcinomatosis is a less likely possibility. Central involvement (rather than typical peripheral and intralobular distribution of perilymphatic nodularity) favors infection. 4. Slight interval increase in multifocal osseous metastatic disease. Of note, there are lytic lesions in both weightbearing femoral necks.. 5. Indeterminate subtle area of right superior renal cortical hypoenhancement. This could potentially reflect a small microvascular infarct or focus of localized pyelonephritis. Lymphomatous involvement of the kidney is possible but less likely. Referred By: PROVIDER NON-STAFF Interpreted By: Johnny Galaviz MD, 04/26/2023 4:20 PM MRI CERV SPINE WO CON Final Result by User, [id number] (04/26 905) Examination: MRI CERV SPINE WO CON, 04/26/2023 8:15 AM. Technique: Multiplanar multisequence magnetic resonance images of the cervical spine were obtained without intravenous contrast. Clinical history: Metastatic Hodgkin lymphoma Comparison: CT soft tissue neck 10/27/2022 Findings: The cervical vertebral bodies and facets are well aligned. Mild age indeterminate compression deformity involving the C4 and to a lesser extent the C5 vertebral bodies. The cervical vertebral body heights otherwise are preserved. There is T2 hyperintense signal within the C4 and C5 vertebral bodies suggestive of marrow replacing lesions. There is suggestion of fullness with intrinsic T1 hyperintense signal involving the anterior epidural space extending from C3 to C5. No abnormal cord signal. There is a 4.3 cm right upper lobe focal consolidation present best seen on series 13 image 79). Heterogeneous marrow signal throughout the thoracic and lumbar spine, partially visualized on extensive card mounter imaging. Small left pleural effusion. C2-3: No significant spinal canal or neural foraminal stenosis. C3-4: Prominent anterior epidural soft tissue compressing the ventral thecal sac. Moderate spinal canal stenosis. Uncovertebral joint hypertrophy. Mild left neural foraminal stenosis. No right neural foraminal stenosis. C4-5: Prominent anterior epidural soft tissue compressing the ventral thecal sac. Moderate spinal canal stenosis. Uncovertebral joint hypertrophy. Mild to moderate left neural foraminal stenosis. C5-6: No significant spinal canal or neural foraminal stenosis. C6-7: No significant spinal canal stenosis. Uncovertebral joint hypertrophy. Mild bilateral neural foraminal stenosis. C7-T1: No significant spinal canal or neural foraminal stenosis. IMPRESSION: 1. Prominent anterior epidural soft tissue extending from C3 to C5 contributing to moderate spinal canal stenosis, as described above. Findings most likely represent extraosseous extension of malignancy into the anterior epidural space. Some limitation in detail given noncontrast technique. No adjacent cord signal abnormality. 2. Mild height loss of the C4 and C5 vertebral bodies with associated T2 hyperintense signal within body marrow could represent marrow replacing lesions and associated mild pathologic compression deformity. 3. Partially visualized heterogeneous marrow signal throughout the thoracic and lumbar spine. MR thoracic and lumbar spine with contrast could be beneficial for further characterization. 4. Persistent rounded opacification involving the right upper lobe when compared with the prior chest exam from 12/15/2022. Dedicated repeat CT chest exam with contrast could be beneficial for further characterization of the rounded consolidative opacification, given the patient's history of malignancy 5. Small left pleural effusion. Ordered By: BARBY STEVENS III Interpreted By: Jewel Shaver MD, 04/26/2023 8:14 AM MRI BRAIN WO CON Final Result by User, [id number] (04/25 1957) EXAMINATION: MRI BRAIN WO CON, 04/25/2023 7:53 PM TECHNIQUE: Multiplanar multisequence magnetic resonance images of the brain were obtained without intravenous contrast. HISTORY: Metastatic Hodgkin lymphoma COMPARISON: CT head 12/15/2022 FINDINGS: Mild to moderate motion evaluation the examination. No restricted diffusion to suggest an acute infarction. There is hemorrhagic focus of susceptibility. Preserved villagomez-white matter differentiation. The sellar, callosal, pineal and craniovertebral junction regions appear within normal limits. Suggestion of anterior epidural soft tissue thickening involving the C3-4 spinal canal (on series 5 image 17). T1 hypointense marrow signal seen throughout the osseous structures that may be related to marrow replacement No extra-axial fluid collection. The ventricles are normal in size. The basal cisterns appear normal. The proximal intracranial arterial flow voids are normal appearance. Orbital contents appear normal. The nasal sinuses and mastoid air cells are well-aerated. IMPRESSION: 1. No acute intracranial abnormality allowing for mild to moderate motion and rotation of the exam. 2. Indeterminate prominent anterior epidural soft tissue thickening at the C4 level within the cervical spinal canal. Attention on MRI cervical spine exam recommended for further characterization. 3. Diffuse T1 hypointense marrow signal that may be related to marrow replacement from underlying malignancy. Referred By: PROVIDER NON-STAFF Interpreted By: Jewel Shaver MD, 04/25/2023 7:53 PM Discharge Exam: Patient was seen and examined on day of discharge, vitals were stable. Disposition: Transferred to [facility] Patient Instructions: Current Discharge Medication List START taking these medications Details azithromycin (ZITHROMAX) 250 MG tablet Take 2 tablets by mouth on day one then 1 daily for four days. Qty: 6 tablet, Refills: 0 dexamethasone (DECADRON) 20 MG/5ML injection Inject 1 mL (4 mg total) into the vein every 6 (six) hours. Qty: 120 mL, Refills: 7 diphenhydrAMINE (BENADRYL) 50 MG/ML injection Inject 0.5 mLs (25 mg total) into the vein every 6 (six) hours as needed for Itching. Qty: 10 mL, Refills: 0 nicotine (NICODERM CQ) 21 MG/24HR Place 1 patch (21 mg total) onto the skin daily for 30 days. Qty: 28 patch, Refills: 0 piperacillin-tazobactam 3.375 g in sodium chloride 0.9 % SOLN 50 mL Inject 3.375 g into the vein every 8 (eight) hours. Qty: 1 Dose, Refills: 0 vancomycin 1250 mg in NS 250 mL IVPB Inject 250 mLs (1,250 mg total) into the vein every 12 (twelve) hours. Qty: 4000 mL, Refills: 0 CONTINUE these medications which have NOT CHANGED Details HYDROcodone-acetaminophen (NORCO) 5-325 MG tablet Take 1 tablet by mouth every 6 (six) hours. morphine CR (MS CONTIN) 30 MG tablet Take 1 tablet (30 mg total) by mouth 2 (two) times daily. DULoxetine (CYMBALTA) 60 MG capsule Take 1 capsule (60 mg total) by mouth daily. gabapentin (NEURONTIN) 300 MG capsule Take 1 capsule (300 mg total) by mouth 3 (three) times daily. naloxone (NARCAN) 4 MG/0.1ML nasal spray 1 spray by Nasal route as needed for Opioid reversal. ondansetron (ZOFRAN-ODT) 8 MG disintegrating tablet Take 1 tablet (8 mg total) by mouth every 8 (eight) hours as needed for Nausea. STOP taking these medications diphenhydrAMINE (BENADRYL) 12.5 MG/5ML liquid naproxen (NAPROSYN) 500 MG tablet NEUPOGEN 300 MCG/0.5ML injection PREDNISONE OR procarbazine (MATULANE) 50 MG capsule Wound Care: none needed No follow-up provider specified. Total time spent on discharge was 45 minutes. Thank you for allowing [facility] hospitalist service to take care of your patient, Please call [phone] if you have any questions or concern. Signed: BRYCE PARKS MD 04/28/2023 8:15 AM documented in this encounter Medications at Time of Discharge azithromycin (ZITHROMAX) 250 MG tablet Take 2 tablets by mouth on day one then 1 daily for four days. 6 tablet 04/28/2023 3 dexamethasone (DECADRON) 20 MG/5ML injection Inject 1 mL (4 mg total) into the vein every 6 (six) hours. 120 mL 7 04/28/2023 4 diphenhydrAMINE (BENADRYL) 50 MG/ML injection Inject 0.5 mLs (25 mg total) into the vein every 6 (six) hours as needed for Itching. 10 mL 04/28/2023 4 DULoxetine (CYMBALTA) 60 MG capsule Take 1 capsule (60 mg total) by mouth daily. 10/27/2022 4 gabapentin (NEURONTIN) 300 MG capsule Take 1 capsule (300 mg total) by mouth 3 (three) times daily. 12/09/2022 4 HYDROcodone-acetamin ophen (NORCO) 5-325 MG tablet Take 1 tablet by mouth every 6 (six) hours. 4 morphine CR (MS CONTIN) 30 MG tablet Take 1 tablet (30 mg total) by mouth 2 (two) times daily. 11/27/2022 4 naloxone (NARCAN) 4 MG/0.1ML nasal spray 1 spray by Nasal route as needed for Opioid reversal. 08/01/2022 4 nicotine (NICODERM CQ) 21 MG/24HR Place 1 patch (21 mg total) onto the skin daily for 30 days. 28 patch 04/29/2023 3 ondansetron (ZOFRAN-ODT) 8 MG disintegrating tablet Take 1 tablet (8 mg total) by mouth every 8 (eight) hours as needed for Nausea. 4 piperacillin-tazobac rodriguez 3.375 g in sodium chloride 0.9 % SOLN 50 mL Inject 3.375 g into the vein every 8 (eight) hours. 1 Dose 04/28/2023 4 vancomycin 1250 mg in NS 250 mL IVPB Inject 250 mLs (1,250 mg total) into the vein every 12 (twelve) hours. 4000 mL 04/28/2023 4 documented as of this encounter Progress Notes * Stevan Worley MD - 04/28/2023 6:11 AM CDT Progress Note Crystal Capone [id number] 33-year-old male 1990 Subjective: Plans for XRT noted, will follow peripherally, please call if needs arise. Objective: Blood pressure 109/58, pulse 74, temperature 97.3 ??F (36.3 ??C), temperature source Oral, resp. rate 20, height 1.71 m (5' 7.32 ), weight 71 kg (156 lb 8.4 oz), SpO2 95 %. Intake/Output Summary (Last 24 hours) at 04/28/2023 0611 Last data filed at 04/27/2023 2121 Gross per 24 hour Intake -- Output 200 ml Net -200 ml Physical Exam: Chart reviewed Recent Results (from the past 24 hour(s)) CULTURE, BACTERIA BLOOD X2 Collection Time: 04/27/23 5:10 PM Specimen: BLOOD STERIPATH Result Value Ref Range SPEC DESCRIPTION BLOOD: STERIPATH SPECIAL REQUESTS NO SPECIAL REQUEST CULTURE RESULT NO GROWTH <24 HRS CBC W/DIFF AUTOMATED Collection Time: 04/27/23 5:10 PM Result Value Ref Range WBC 4.87 4.00 - 10.80 x10'3/uL RBC 3.13 (L) 4.50 - 6.10 x10'6/uL HGB 7.1 (L) 13.0 - 18.0 G/DL HCT 24.4 (L) 37.0 - 52.0 % MCV 78.0 78.0 - 100.0 FL MCH 22.7 (L) 27.0 - 31.0 PG MCHC 29.1 (L) 33.0 - 36.0 G/DL RDW 17.7 (H) 11.5 - 14.5 % PLT 351 (H) 150 - 350 x10'3/uL MPV 8.7 7.4 - 10.4 FL ABS. NEUTROPHILS 4.14 1.60 - 8.30 x10'3/uL ABS. LYMPHOCYTES 0.07 (L) 0.80 - 4.70 x10'3/uL ABS. MONOCYTES 0.49 0.00 - 1.50 x10'3/uL ABS. EOSINOPHILS 0.07 0.00 - 0.40 x10'3/uL ABS. BASOPHILS 0.02 0.00 - 0.20 x10'3/uL ABS. IMMATURE GRANULOCYTES 0.08 (H) 0.00 - 0.03 x10'3/uL ABS. NUCLEATED RBC'S 0.00 0.0 x10'3/uL AMMONIA Collection Time: 04/27/23 5:10 PM Result Value Ref Range AMMONIA 21 11 - 32 UMOL/L LACTIC ACID - SINGLE Collection Time: 04/27/23 5:10 PM Result Value Ref Range LACTIC ACID 0.8 0.4 - 2.0 MMOL/L SED RATE, ERYTHROCYTE (ESR,WSR) Collection Time: 04/27/23 5:10 PM Result Value Ref Range ESR 37 (H) 0 - 15 MM/HR COMPREHENSIVE METABOLIC PANEL Collection Time: 04/27/23 5:10 PM Result Value Ref Range SODIUM S/P/B 135 (L) 136 - 145 MMOL/L POTASSIUM S/P/B 3.5 3.5 - 5.1 MMOL/L CHLORIDE S/P/B 101 98 - 107 MMOL/L CO2 30.3 21.0 - 32.0 MMOL/L GLUCOSE 111 (H) 74 - 106 MG/DL BUN 14 7 - 18 MG/DL CREATININE S/P/B 1.18 0.70 - 1.30 MG/DL CALCIUM S/P/B 8.7 8.5 - 10.1 MG/DL BILIRUBIN TOTAL S/P/B 0.8 0.2 - 1.0 MG/DL ALKALINE PHOSPHATASE S/P/B 349 (H) 45 - 115 U/L AST 15 15 - 37 U/L ALT 10 (L) 16 - 61 U/L TOTAL PROTEIN S/P/B 5.8 (L) 6.4 - 8.2 G/DL ALBUMIN S/P/B 1.6 (L) 3.4 - 5.0 G/DL ANION GAP 3.7 (L) 5.0 - 15.0 MMOL/L OSMOLALITY (CALC) 281 MOSM/KG GFR ESTIMATE 83 (L) >90 ML/MIN/1.73 M2 GFR NOTES GFR REFERENCES: C-REACTIVE PROTEIN Collection Time: 04/27/23 5:10 PM Result Value Ref Range C-REACTIVE PROTEIN 11.50 (H) <0.80 mg/dL BASIC METABOLIC PANEL Collection Time: 04/28/23 2:45 AM Result Value Ref Range SODIUM S/P/B 135 (L) 136 - 145 MMOL/L POTASSIUM S/P/B 3.8 3.5 - 5.1 MMOL/L CHLORIDE S/P/B 102 98 - 107 MMOL/L CO2 24.1 21.0 - 32.0 MMOL/L GLUCOSE 164 (H) 74 - 106 MG/DL BUN 14 7 - 18 MG/DL CREATININE S/P/B 1.10 0.70 - 1.30 MG/DL CALCIUM S/P/B 8.8 8.5 - 10.1 MG/DL ANION GAP 8.9 5.0 - 15.0 MMOL/L OSMOLALITY (CALC) 284 MOSM/KG GFR ESTIMATE >90 >90 ML/MIN/1.73 M2 GFR NOTES GFR REFERENCES: CBC W/DIFF AUTOMATED Collection Time: 04/28/23 2:45 AM Result Value Ref Range WBC 6.10 4.00 - 10.80 x10'3/uL RBC 3.40 (L) 4.50 - 6.10 x10'6/uL HGB 7.7 (L) 13.0 - 18.0 G/DL HCT 26.4 (L) 37.0 - 52.0 % MCV 77.6 (L) 78.0 - 100.0 FL MCH 22.6 (L) 27.0 - 31.0 PG MCHC 29.2 (L) 33.0 - 36.0 G/DL RDW 17.0 (H) 11.5 - 14.5 % PLT 407 (H) 150 - 350 x10'3/uL MPV 8.9 7.4 - 10.4 FL ABS. NEUTROPHILS 5.77 1.60 - 8.30 x10'3/uL ABS. LYMPHOCYTES 0.12 (L) 0.80 - 4.70 x10'3/uL ABS. MONOCYTES 0.11 0.00 - 1.50 x10'3/uL ABS. EOSINOPHILS 0.00 0.00 - 0.40 x10'3/uL ABS. BASOPHILS 0.01 0.00 - 0.20 x10'3/uL ABS. IMMATURE GRANULOCYTES 0.09 (H) 0.00 - 0.03 x10'3/uL ABS. NUCLEATED RBC'S 0.00 0.0 x10'3/uL Current Facility-Administered Medications: acetaminophen (TYLENOL) tablet 650 mg, 650 mg, Oral, Q4H PRN, Barby Stevens III, MD, 650 mg at 04/27/23 1106 azithromycin (ZITHROMAX) tablet 500 mg, 500 mg, Oral, Daily, Bryce Parks MD, 500 mg at 04/27/23 1154 dexamethasone (DECADRON) injection 4 mg, 4 mg, Intravenous, Q6H, Jarrell Duran MD, 4 mg at 04/28/23 0200 diphenhydrAMINE (BENADRYL) injection 25 mg, 25 mg, Intravenous, Q6H PRN, Barby Stevens III, MD DULoxetine (CYMBALTA) capsule 60 mg, 60 mg, Oral, Daily, Barby Stevens III, MD, 60 mg at 04/27/23 0824 gabapentin (NEURONTIN) capsule 300 mg, 300 mg, Oral, TID, Barby Stevens III, MD, 300 mg at 04/27/232048 HYDROcodone-acetaminophen (NORCO) 5-325 MG tablet 1 tablet, 1 tablet, Oral, Q4H PRN, Barby Stevens III, MD, 1 tablet at 04/26/23 1514 hydrOXYzine (ATARAX) tablet 25 mg, 25 mg, Oral, TID PRN, Bryce Parks MD, 25 mg at 04/25/232101 morphine CR (MS CONTIN) tablet 30 mg, 30 mg, Oral, BID, Barby Stevens III, MD, 30 mg at 049 morphine injection 4 mg, 4 mg, Intravenous, Q3H PRN, Bryce Parks MD, 4 mg at 04/27/23 1109 naLOXone (NARCAN) injection 0.4 mg, 0.4 mg, Intravenous, PRN, Barby Stevens III, MD nicotine (NICODERM CQ) 21 MG/24HR patch 21 mg, 1 patch, Transdermal, Q24H, Barby Stevens III, MD, 21 mg at 04/28/23 0200 normal saline 0.9 % flush 3-10 mL, 3-10 mL, Intravenous, Q8H, Barby Stevens III, MD, 10 mL at 04/27/232049 normal saline 0.9 % flush 3-10 mL, 3-10 mL, Intravenous, PRN, Barby Stevens III, MD ondansetron (ZOFRAN) injection 4 mg, 4 mg, Intravenous, Q8H PRN, Barby Stevens III, MD, 4 mg at 04/24/23 2246 pantoprazole (PROTONIX) 40 mg in sodium chloride (PF) 0.9 % 10 mL IV, 40 mg, Intravenous, BID, Marina Duran MD, 40 mg at 04/27/232049 piperacillin-tazobactam (ZOSYN) 3.375 g in sodium chloride 0.9 % 50 mL IVPB, 3.375 g, Intravenous, Q8H, Bryce Parks MD, Stopped at 04/28/23 0432 polyethylene glycol (GLYCOLAX) packet 17 g, 17 g, Oral, Daily PRN, Barby Stevens III, MD sodium chloride 0.9% infusion, , Intravenous, Continuous, Brianna Francis DO, Last Rate: 125 mL/hr at1 0824, New Bag at 04/27/23 0824 vancomycin 1250 mg in NS 250 mL IVPB, 1,250 mg, Intravenous, Q12H, Bryce Parks MD, Stopped at 04/28/23 0102 Pharmacy to dose vancomycin, , , Once AND vancomycin pharmacy to dose placeholder, , Intravenous, See Admin Instructions, Bryce Parks MD Assessment and Plan: NO plans for surgery now, please call if needs arise STEVAN WORLEY MD 04/28/2023 * Yanna Chavez, PharmD - 04/27/2023 4:00 PM CDT Vancomycin Pharmacokinetic Progress Note Day 0 of therapy Crystal Capone is a 33-year-old male for which pharmacy has been consulted to dose vancomycin forPneumonia and Sepsis. Other antibiotics ordered include Zosyn 3.375 gm Q8h EI (04/27-) and Azithromycin 500 mg daily Historical vancomycin use: Yes no LVLs Allergies: No Known Allergies Height: 1.71 m (5' 7.32 ) Weight: 71 kg (156 lb 8.4 oz) Body mass index is 24.28 kg/m??. Temp (24 hr max): Temp Av ??F (37.8 ??C) Min: 97.9 ??F (36.6 ??C) Max: 102.2 ??F (39 ??C) Today's labs and vitals: Lab Results Component Value Date/Time WBC 5.82 04/26/2023 10:53 PM WBC 5.08 04/26/2023 03:14 AM WBC 5.32 04/25/2023 07:37 PM WBC 6.09 04/25/2023 02:52 AM WBC 5.11 12/21/2022 03:23 AM Lab Results Component Value Date/Time CR 1.14 04/26/2023 03:14 AM CR 1.32 (H) 04/25/2023 07:37 PM CR 1.34 (H) 04/25/2023 11:06 AM CR 1.34 (H) 04/25/2023 02:52 AM CR 0.60 (L) 12/21/2022 03:23 AM CrCl = estimated creatinine clearance is 86.3 mL/min (based on SCr of 1.14 mg/dL). Intake/Output Summary (Last 24 hours) at 04/27/2023 1600 Last data filed at 04/27/2023 0352 Gross per 24 hour Intake 286 ml Output -- Net 286 ml Pertinent Cultures: Date Drawn Site Organism Pertinent Sensitivity 04/26 BCX 10/06 MRSA PCR 04/27 UCX MRSA PCR Levels: Date Time Level AUC Dose Comments Assessment: Crystal Capone is a 33-year-old male who is currently receiving vancomycin. Stage ALANA Hodgkin's lymphoma Chemotherapy on hold since 11/24 per MDs note. AUC goal is 400 - 600 Current AUC level is Pending Renal function is Improving Plan: Antibiotic Plan: 1250 mg (17.6 mg/kg) Q12H est AUC 599 Next level due: 04/29 0900 dose due at 1100 Pharmacy will continue to follow cultures, clinical status, and appropriateness of therapy. Thank you for the consult. Pharmacy Consult per Dr. Keyshawn Chavez, PharmD Phone: [phone] 04/27/2023 4:00 PM * Jarrell Duran MD - 04/27/2023 2:54 PM CDT INPATIENT PROGRESS NOTE Date of service: 04/27/2023, Hospital Day ( LOS: 3 days ) SUBJECTIVE He still has some blurry vision and double vision, Patient had a fever spike this morning. he denies any complaint of headache, nausea, vomiting, denies any complaints of any focal weakness. He has generalized body pain, more pronounced in his back. Comprehensive review of systems otherwise remainsnegative. ROS 12 Point ROS has been reviewed and is negative except as stated in subjective section OBJECTIVE: Patient Vitals for the past 12 hrs: BP Temp Pulse SpO2 04/27/23 1637 109/65 -- 84 94 % 04/27/23 0920 127/60 97.9 ??F (36.6 ??C) 91 100 % Temp (24hrs), Av.6 ??F (38.1 ??C), Min:97.9 ??F (36.6 ??C), Max:102.2 ??F (39 ??C) I&O: I/O last 3 completed shifts: In: 286 [P.O.:236; IV Piggyback:50] Out: - Weights: Wt Readings from Last 3 Encounters: 04/24/23 71 kg (156 lb 8.4 oz) 12/20/22 73.9 kg (163 lb) 10/27/22 75.3 kg (166 lb) Physical Exam Constitutional: Appearance: He is well-developed. HENT: Head: Normocephalic. Eyes: Pupils: Pupils are equal, round, and reactive to light. Cardiovascular: Rate and Rhythm: Normal rate and regular rhythm. Heart sounds: Normal heart sounds. Pulmonary: Effort: Pulmonary effort is normal. Breath sounds: Normal breath sounds. Abdominal: General: Bowel sounds are normal. Palpations: Abdomen is soft. Musculoskeletal: General: Tenderness present. Normal range of motion. Cervical back: Normal range of motion. Comments: Tender to touch on thoracic and lumbar spine Skin: General: Skin is warm and dry. Neurological: Mental Status: He is alert and oriented to person, place, and time. Lab Review Recent Labs Lab 04/27/23 1710 WBC 4.87 RBC 3.13* HGB 7.1* HCT 24.4* MCV 78.0 MCH 22.7* MCHC 29.1* PLT 351* RDW 17.7* MPV 8.7 NEUC 4.14 LYMC 0.07* MONOC 0.49 EOSC 0.07 BASOC 0.02 Recent Labs Lab 04/25/23 1937 04/26/23 0314 04/27/23 1710 NA 136 134* 135* K 4.2 4.1 3.5 CL 100 101 101 CO2 30.3 31.0 30.3 AGAP 5.7 2.0* 3.7* BUN 20* 19* 14 CR 1.32* 1.14 1.18 GLU 115* 93 111* CA 11.0* 10.3* 8.7 TP 6.3* 6.0* 5.8* ALB 1.7* 1.7* 1.6* TBIL 0.9 0.7 0.8 ALKP 290* 322* 349* AST 14* 12* 15 ALT 12* 10* 10* Cardiac markers: No components found for: TROPONINI RADIOLOGY REVIEWED MEDICATIONS Scheduled medications azithromycin 500 mg Oral Daily dexamethasone 4 mg Intravenous Q6H DULoxetine 60 mg Oral Daily gabapentin 300 mg Oral TID morphine CR 30 mg Oral BID nicotine 1 patch Transdermal Q24H normal saline 3-10 mL Intravenous Q8H pantoprazole 40 mg Intravenous BID piperacillin-tazobactam 3.375 g Intravenous Q8H vancomycin 1,250 mg Intravenous Q12H vancomycin pharmacy to dose Intravenous See Admin Instructions Infusion sodium chloride 125 mL/hr at 04/27/23 0824 PRN acetaminophen, diphenhydrAMINE, HYDROcodone-acetaminophen, hydrOXYzine, morphine, naLOXone, normal saline, ondansetron, polyethylene glycol ASSESSMENT & PLAN Crystal Capone is a 33-year-old M with H Stage IV hodgkin's lymphoma (08/2021), recent admit 12/14-12/21/22 for acute respiratory failure 2/2 pneumonia requiring intubation, septic shock on pressor support, HFrEF 45-50%, current smoker, anxiety, depression, transferred from [facility] to [facility] for 3d LE edema, SANCHEZ, and difficulty walking. Workup thus far reveals hypercalcemia that could befrom malignant etiology and new c4 and c5 lytic lesions with 5mm L paracentral soft tissue extension into the canal. He has not had chemotherapy since November 2022 due to neutropenic fever. Stage IV Hodgkin Lymphoma Likely Relapse Refractory disease -Oncologist: Dr. Ashford -Completed 2 cycles ABVD without issue. Restaging showed mixed response and he was switched to BEACOPP. Completed 2 cycles and most of cycle 3 BEACOPP (up to day 8 December 02, 2022) but had to stop prednisone due to neutropenic fever. -Hx of non compliance. - LDH normal 124, ESR 43, retic 2.3, ferritin 1311. - MRI brain no acute intracranial abnormality, MRI C spine shows prominent anterior epidural soft tissue extending from C3 to C5 contributing to moderate spinal canal stenosis, as described above. Findings most likely represent extraosseous extension of malignancy into the anterior epidural space. - MRI T + L spine >> Numerous osseous metastasis scattered throughout the thoracic spine, thelumbar spine and sacral spine.suspect ventral epidural extension of tumor into the ventral spinal canal at L4 level, likely expansion of L4 vertebral body osseous metastasis into the ventral spinal canal. Central canal stenosis at L4 level. -CT chest / abdomen / pelvis w/con was done and reviewed progressive multifocal adenopathy above and below the diaphragm, likely reflecting Hodgkin's lymphoma. Predominant sites of adenopathy includebilateral inguinal regions, upper retroperitoneum near the level of the renal vessels, and left supraclavicular fossa. -An ultrasound-guided core needle biopsy has been done, pathology report is pending. -We discussed the case with patient's oncologist Dr. Ashford. -The patient's case has been reviewed with Dr. Lainez, a specialist in lymphoma at [facility]. She has suggested the option of transferring the patient to [facility] if both patient and family are willing. During our conversation with the patient today, we presented the possibility of initiating the treatment at our facility, utilizing cytotoxic chemotherapy such as GVD plus pembrolizumab for salvage and then subsequently transferring to [facility] for SCT. However, patient expressed his preference to receive further treatment at [facility]. Recommendations -Transfer patient to [facility], communicated with the primary team who is working on the logistical issues of transfer. -Start dexamethasone 4 mg IV every 6 with Protonix twice daily. -Ortho spine consulted and following. -[facility] following peripherally. -Radiation oncology service is following,CT simulation today, possible radiation to cervical and lumbar region tomorrow. -Follow cultures, continue broad-spectrum IV antibiotics. Right upper lobe mass -Right upper lobe 5 cm mass seen on the CT chest, concerning for second primary versus lymphoma. Recommendations -Hold off IR guided biopsy of this mass. Hypercalcemia of Malignancy LEON -s/p one dose of zometa on 04/25. Recommendations -creatinine improved, Ca is trending down, can decrease rate of IVF. -check daily CMP -workup for multiple myeloma SPEP, immunofixation, UPEP is negative for monoclonal proteins. [place] lambda ratio is pending. Continue to follow. Microcyctic anemia - MCV 76.9,hemoglobin 7.1, s/p 1U PRBC transfused. Recommendations -daily CBC,If hemoglobin <7.0 transfuse leukoreduced, irradiated, CMV negative blood products -Iron panel- iron 16, ferritin 1311, %10 -follow soluble transferrin receptor -GI consult if needed HFrEF 45-50% (12/16/22) - Echo this admission showed improved EF, there is also Diffuse thickening of the posterior leaflet, no definite hypermobile structure. Consider a FRANCISCO if clinically appropriate.. -Above plan of care has been discussed with the patient, and with the primary care team in detail. -on 04/26/23 I also called MIC, During our telephonic conversation, I had a comprehensive discussion with Mic,who is the patient's power of assistant district attorney and mother. We reviewed all the imaging results,expressed concerns about the potential recurrence of lymphoma, outlined the need for biopsy, and, if necessary, the subsequent steps involving salvage chemotherapy. we also discussed the possibility of a referral to [facility]. Mic appeared to have a good grasp of the information provided and agreed to our plan. JARRELL DURAN MD 04/27/2023 8:04 PM Cosigned by Ivan Moore MD at 04/27/2023 10:42 PM CDT Associated attestation - Ivan Moore MD - 04/27/2023 10:42 PM CDT I have personally seen and examined the patient. Reviewed the medical records, including labs and imaging studies. I agree with the above assessment and plan of my resident/fellow. Ivan Moore MD [facility] Hematology and Oncology * Bryce Parks MD - 04/27/2023 2:09 PM CDT Progress note SUBJECTIVE: Patient seen and examined Labs reviewed He is awake and alert, sitting in bed eating, no new sx, developed fever 102 No cough no dysuria No abd pain No diarrhea He is agreeable to transfer to [place] Chief Complaint: Cervical intraspinal and vertebral lesions hypercalcemia Review of Systems Constitutional: Positive for fever and malaise/fatigue. HENT: Negative for hearing loss and sore throat. Eyes: Positive for blurred vision. Negative for photophobia and pain. Respiratory: Negative for cough and shortness of breath. Cardiovascular: Negative for chest pain and palpitations. Gastrointestinal: Negative for abdominal pain and vomiting. Genitourinary: Negative for dysuria and urgency. Musculoskeletal: Negative for back pain and joint pain. Skin: Negative for rash. Neurological: Positive for weakness. Negative for dizziness and headaches. Psychiatric/Behavioral: The patient is not nervous/anxious. OBJECTIVE Blood pressure 127/60, pulse 91, temperature 97.9 ??F (36.6 ??C), resp. rate 18, height 1.71 m (5' 7.32 ), weight 71 kg (156 lb 8.4 oz), SpO2 100 %. Physical Exam Constitutional: Appearance: He is well-developed. He is ill-appearing. HENT: Head: Normocephalic. Mouth/Throat: Mouth: Mucous membranes are moist. Eyes: Conjunctiva/sclera: Conjunctivae normal. Cardiovascular: Rate and Rhythm: Normal rate and regular rhythm. Heart sounds: Normal heart sounds. No murmur heard. No gallop. Pulmonary: Effort: Pulmonary effort is normal. No respiratory distress. Breath sounds: Normal breath sounds. No wheezing or rales. Chest: Chest wall: No tenderness. Abdominal: General: Bowel sounds are normal. There is no distension. Palpations: Abdomen is soft. Tenderness: There is no abdominal tenderness. There is no guarding or rebound. Musculoskeletal: General: No tenderness. Normal range of motion. Cervical back: Normal range of motion. No rigidity. Right lower leg: Edema present. Left lower leg: Edema present. Skin: General: Skin is warm. Coloration: Skin is not pale. Findings: No erythema or rash. Neurological: Mental Status: He is alert and oriented to person, place, and time. Sensory: No sensory deficit. Motor: No weakness. Psychiatric: Mood and Affect: Mood normal. Behavior: Behavior normal. LABS:. Recent Labs 04/25/23193604/26/234 04/26/23 2253 WBC 5.32 5.08 5.82 HGB 7.2* 6.4* 7.6* HCT 24.7* 22.0* 25.6* MCV 74.6* 74.8* 76.2* PLT 450* 452* PLATELET CLUMPS PRESENT. ESTIMATE FROM SLIDE APPEARS TO BE BETWEEN 350,000 AND 500,000 RBC 3.31* 2.94* 3.36* Recent Labs Lab 04/25/23 1106 04/25/23 1937 04/26/23 0314 NA 134* 136 134* K 4.6 4.2 4.1 CL 100 100 101 CO2 31.0 30.3 31.0 AGAP 3.0* 5.7 2.0* BUN 20* 20* 19* CR 1.34* 1.32* 1.14 GLU 75 115* 93 CA 11.4* 11.0* 10.3* TP 6.3* 6.3* 6.0* ALB 1.8* 1.7* 1.7* TBIL 0.9 0.9 0.7 ALKP 305* 290* 322* AST 13* 14* 12* ALT 11* 12* 10* No results for input(s): INR in the last 168 hours. Intake/Output Summary (Last 24 hours) at 04/27/2023 1409 Last data filed at 04/27/2023 0352 Gross per 24 hour Intake 286 ml Output -- Net 286 ml RADIOLOGY : REVIEWED MEDICATIONS Scheduled medications azithromycin 500 mg Oral Daily dexamethasone 4 mg Intravenous Q6H DULoxetine 60 mg Oral Daily gabapentin 300 mg Oral TID morphine CR 30 mg Oral BID nicotine 1 patch Transdermal Q24H normal saline 3-10 mL Intravenous Q8H pantoprazole 40 mg Intravenous Daily piperacillin-tazobactam 3.375 g Intravenous Q8H vancomycin pharmacy to dose Intravenous See Admin Instructions Infusion sodium chloride 125 mL/hr at 04/27/23 0824 PRN acetaminophen, diphenhydrAMINE, HYDROcodone-acetaminophen, hydrOXYzine, morphine, naLOXone, normal saline, ondansetron, polyethylene glycol ASSESSMENT /PLAN Crystal Capone is a 33-year-old male Admitted with Leg weakness, bilateral Non Hodgkin's lymphoma ([facility]/HCC) ([facility]/HCC) PLAN: Cervical intraspinal and vertebral lesions Lumbar mets Spinal canal stenosis -Patient presented with pain, leg giving away -MRI C/T/L compelted -has spinal mets -ortho spine eval done, no signs of cord compression -no acute surgical intervention needed - per ortho could offer corpectomy of C4 and C5 if tumor load in these bodies causes collapse or significant pain -Rad Onc consulted -CT sim done -getting palliative radiation for spinal lesions Blurred vision Normal eye movement Left eye blurry vision on right conjugate gaze - says improvement MRI brain repeat w contrast neg for mets or CVA Stage ALANA Hodgkin's lymphoma -Chemotherapy on hold since 11/24 -Hematology-oncology on consult as above, appreciate assistance, defer to them - refractory lymphoma with mets New lung mass S/p inguinal node biopsy May need lung biopsy to r/o secondary tumor as well [facility] oncology d/w Lymphoma specialist Dr Sena at [place], accepted for transfer D/w connect Awaiting bed availability Acute renal failure Resolved hypercalcemia -Calcium at outside facility elevated at 11.7, with albumin 1.8 S/p IVF Zometa Ca improving Anemia S/p 1 PRBC No active bleeding Check stool occult PPI Dc subq heparin Systolic congestive heart failure -EF recently found to be 45 to 50% on echocardiogram 12/16/2022 Repeat echo ordered No dyspnea -Patient has diffuse anasarca as well as scrotal edema and dyspnea on exertion but no orthopnea andis breathing comfortably on room air Sepsis Fever Tmax 102 Immunocompromised Possible PNA on CT Septic workup Bcx awaited Hemodynamics stable ID consulted Keep broad cov abx D/w Mother POA - at [phone] - updated about plan at transfer to [place] -agreeable CODE STATUS: FULL CODE Code status: Full Code Discussed with RN on the plan Total time spent: 60 minutes, more than 50% of time spent in coordination of care and discussing with patient about current medical condition and management BRYCE PARKS MD 2:09 PM 04/27/2023 * Allison Vela, AGACNP-BC - 04/27/2023 12:43 PM CDT RADIATION ONCOLOGY PROGRESS NOTE - Assessment & Plan: 33 y/o male with history of stage IV Hodgkin Lymphoma with new C3-C5 & L4 lytic lesions with resulting canal stenosis -Orthopedics consulted; no plan for surgical intervention at this time -[facility] Hem Onc consulted; recommend Rad Onc consult for C-spine lesions, biopsy of lymph node -the patient could benefit from radiation treatment to the areas involving his cervical and lumbar spine. We will plan to bring the patient down for CT SIM this afternoon and proceed with treatment planning. - Subjective: Patient resting in bed, in no acute distress, continues to endorse lower back pain. rEVIEW OF SYSTEMS: A 10-point review of systems was assessed; all systems were unremarkable except per above. Pertinent History: @meds@ No Known Allergies Physical Exam Vitals: 04/27/23 0920 BP: 127/60 Pulse: 91 Resp: Temp: 97.9 ??F (36.6 ??C) SpO2: 100% Physical Exam General: ill-appearing, in no acute distress. HEENT: atraumatic and normocephalic. CV: well-perfused. Resp: no supplemental oxygen, non-labored respirations, no use of accessory muscles. MSK: Moves all extremities voluntarily. Neuro: alert & oriented, neuro exam is grossly normal, speech is normal. Laboratory Tumor Markers: Recent Labs 04/25/23 1102 LDH 124 LDH Date Value Ref Range Status 04/25/2023 124 87 - 241 UNITS/L Final Imaging MRI BRAIN W CON Result Date: 04/27/2023 EXAMINATION: MRI BRAIN W CONTRAST. Multiplanar postcontrast MR imaging of the brain was performed following intravenous administration of 14 in the [place]. INDICATION: Evaluate for brain metastasis,double vision, hx of mets/lymphoma. COMPARISON: MRI brain without contrast 04/25/2023. FINDINGS: Noabnormal intracranial enhancement is seen on the postcontrast MR images of the brain. Anterior epidural soft tissue thickening noted in the cervical spine from C3 to C5 on the previous noncontrast MRI brain exam is not included on the postcontrast MR images; please refer to the MRI cervical spine exam of 04/25/2023 for further assessment. No abnormal intracranial dural or leptomeningeal enhancement is seen. No mass effect, midline shift, or acute osseous abnormality. Ventricles and sulci are normal for age. No abnormal extra- axial fluid collections. Normal villagomez-white differentiation is maintained. Persistent decreased T1 signal diffusely in the bone marrow, which may be normal for age, however marrow replacing process is not excluded. No significant paranasal sinus or mastoid air cell disease. Visualized orbits are unremarkable. IMPRESSION: 1. No abnormal intracranial enhancement is seen. 2. No acute intracranial abnormalitiesappreciated. 3. Decreased T1 signal diffusely in the bone marrow of the calvarium may be normal forage or less likely may represent a diffuse marrow replacing process. Please correlate clinically. Referred By: PROVIDER NON-STAFF Interpreted By: Matilda Chew MD, 04/27/2023 12:[address] CHEST+ABD+PEL W CON Result Date: 04/26/2023 EXAM: CT CHEST, ABDOMEN, and PELVIS with contrast INDICATION: Metastatic lesions and Hodgkin's lymphoma. COMPARISON: 12/15/2022. TECHNIQUE: Multidetector CT images were obtained through the chest, abdomen and pelvis after injection of 100 mL Isovue-370 IV contrast. Multiplanar reformatted images were created and reviewed. A dose lowering technique was used for this procedure, which may include, but is not limited to, dose reduction techniques, automated exposure control, the use of a iterative reconstruction, and ALARA (as low as reasonably achievable)/image gently techniques. FINDINGS: CT CHEST: Heart: Heart size is normal. There is a trace amount of pericardial fluid. Great vessels: Normalin caliber. Mediastinum and monica: Right chest Port-A-Cath is noted with catheter tip in the high right atrium. A few mildly prominent mediastinal lymph nodes are identified, most less than 1 cm shortaxis. A right hilar/peribronchial mode on image 50 measures 1 cm short axis. Pleura: There is a small, layering left pleural effusion. Lungs: In the central aspect of the right upper lobe, there is an irregularly-shaped mass with probable central necrosis measuring 3.7 cm craniocaudal by 5.6 cm transverse and 3.3 cm AP. On the most recent CT 12/15/2022, this area was involved by densely consolidative pneumonia, which may have obscured the mass. Inframedial aspect of the lesion extends along the b ronchovascular pedicle to the superior right hilum. In the left lung, there is a perihilar distribution of tree-in-bud opacity which is new.. Other: Multiple enlarged but ill-defined nodes and heterogeneously enhancing soft tissue lesions are seen in the left supraclavicular fossa and extending along the left brachial plexus and left thoracic inlet, example axial images 6 through 16. In some areas , nodes are difficult to distinguish from the scalene muscles, but there is at least one probable enlarged node on axial image 8 measuring 1.3 cm short axis. Ill-defined intercostal soft tissue thickening is seen extending into the left first intercostal space. CT ABDOMEN: Liver: Unremarkable. Gallbladder and biliary tree: The common bile duct is nondilated. The gall bladder is normal. Pancreas: Normal. Spleen: Multiple vague hypoenhancing lesions are seen throughout the splenic parenchyma. Thelargest in the upper pole measures about 2.2 cm (example axial image 86) while the largest in the lower pole measures about 2.1 cm (image 109). Adrenal glands: Normal. Kidneys: The nephrograms are symmetric. However, there is a focal geographic area of renal cortical hypoenhancement in the superiorpole of the right kidney, example axial image 117 and coronal image 51. See note below. Bowel: There is no evidence of bowel obstruction. Marked diffuse colonic stool retention is noted. Peritoneum: There is no ascites, pneumoperitoneum, or adenopathy. Retroperitoneum: The aorta is normal in caliber. There is diffuse retroperitoneal adenopathy which has substantially increased compared to 12/15/2022. For example, immediately below the level of the renal vessels, there are multiple enlarged nodeson axial image 125 with short axis dimension of up to 1.7 cm. Other: There is diffuse subcutaneous edema, likely reflecting hypoalbuminemia/third spacing. CT PELVIS: The urinary bladder is unremarkable. Prostate, seminal vesicles, rectum, appear normal. There is edema in the perirectal fat likely reflecting anasarca given more diffuse subcutaneous findings. There is bilateral inguinal adenopathy,right greater than left, with largest node on axial image 195 having a short axis diameter of 1.7 cm. There are numerous, mostly radiolucent osseous lesions which shows slight progression compared to12/15/2022. In the pelvis, there is increased size of a roughly 2 cm lytic lesion in the left side of the pubic body resulting in increased cortical osteolysis. There are increased bilateral femoral neck lesions. Bilateral iliac bone lesions are seen. There is a pathologic fracture of the right sideof the L4 vertebral body which shows little change. Multifocal lesions in the L2 vertebral body show increased size right of midline, but appear less prominent left of midline, possibly reflecting mixed treatment response. IMPRESSION: 1. Progressive multifocal adenopathy above and below the diaphragm, likely reflecting Hodgkin's lymphoma. Predominant sites of adenopathy include bilateral inguinal regions, upper retroperitoneum near the level of the renal vessels, and left supraclavicular fossa. Although somewhat ill-defined and difficult to differentiate from the scalene muscles, there may be adenopathy involving the left brachial plexus and extending into the first left rib interspace. In addition, numerous hypoenhancing splenic lesions have increased, also presumably related to lymphoma. 2. Previously in partobscured by pneumonia, there is better demonstration of a roughly 5 cm right upper lobe lung mass. It is unclear whether whether this may reflect extra lymphatic involvement of advanced stage Hodgkindisease, versus a second lung primary. 3. Tree-in-bud opacity in the central aspect of the left lung probably represents superimposed infection/aspiration. However, lymphangitic carcinomatosis is a less likely possibility. Central involvement (rather than typical peripheral and intralobular distribution of perilymphatic nodularity) favors infection. 4. Slight interval increase in multifocal osseous metastatic disease. Of note, there are lytic lesions in both weightbearing femoral necks.. 5. Indeterminate subtle area of right superior renal cortical hypoenhancement. This could potentially reflect a small microvascular infarct or focus of localized pyelonephritis. Lymphomatous involvement of the kidney is possible but less likely. Referred By: PROVIDER NON-STAFF Interpreted By: Johnny Galaviz MD, 04/26/2023 4:20 PM MRI CERV SPINE WO CON Result Date: 04/26/2023 Examination: MRI CERV SPINE WO CON, 04/26/2023 8:15 AM. Technique: Multiplanar multisequence magnetic resonance images of the cervical spine were obtained without intravenous contrast. Clinical history: Metastatic Hodgkin lymphoma Comparison: CT soft tissue neck 10/27/2022 Findings: The cervical vertebral bodies and facets are well aligned. Mild age indeterminate compression deformity involving the C4 and to a lesser extent the C5 vertebral bodies. The cervical vertebral body heights otherwise are preserved. There is T2 hyperintense signal within the C4 and C5 vertebral bodies suggestive of marrow replacing lesions. There is suggestion of fullness with intrinsic T1 hyperintense signal involving the anterior epidural space extending from C3 to C5. No abnormal cord signal. There is a 4.3 cm right upper lobe focal consolidation present best seen on series 13 image 79). Heterogeneous marrow signal throughout the thoracic and lumbar spine, partially visualized on extensive card mounter imaging. Small left pleural effusion. C2-3: No significant spinal canal or neural foraminal stenosis. C3-4: Prominent anterior epidural soft tissue compressing the ventral thecal sac. Moderate spinal canal stenosis. Uncovertebral joint hypertrophy. Mild left neural foraminal stenosis. No right neural foraminalstenosis. C4-5: Prominent anterior epidural soft tissue compressing the ventral thecal sac. Moderate spinal canal stenosis. Uncovertebral joint hypertrophy. Mild to moderate left neural foraminal stenosis. C5-6: No significant spinal canal or neural foraminal stenosis. C6-7: No significant spinal canal stenosis. Uncovertebral joint hypertrophy. Mild bilateral neural foraminal stenosis. C7- T1: No significant spinal canal or neural foraminal stenosis. IMPRESSION: 1. Prominent anterior epidural soft tissue extending from C3 to C5 contributing to moderate spinal canal stenosis, as described above. Findings most likely represent extraosseous extension of malignancy into the anterior epidural space. Some limitation in detail given noncontrast technique. No adjacent cord signal abnormality. 2. Mild height loss of the C4 and C5 vertebral bodies withassociated T2 hyperintense signal within body marrow could represent marrow replacing lesions and associated mild pathologic compression deformity. 3. Partially visualized heterogeneous marrow signalthroughout the thoracic and lumbar spine. MR thoracic and lumbar spine with contrast could be beneficial for further characterization. 4. Persistent rounded opacification involving the right upper lobe when compared with the prior chest exam from 12/15/2022. Dedicated repeat CT chest exam with contrast could be beneficial for further characterization of the rounded consolidative opacification, given the patient's history of malignancy 5. Small left pleural effusion. Ordered By: BARBY STEVENS III Interpreted By: Jewel Shaver MD, 04/26/2023 8:14 AM MRI LUMB SPINE WWO CON Result Date: 04/27/2023 EXAMINATION: MRI LUMB SPINE WITH AND WITH INTRAVENOUS CONTRAST. Multiplanar, multisequence MR imaging of lumbar spine was performed prior to and following intravenous administration of 14 mL Dotarem.The postcontrast MR images of the brain, thoracic and lumbar spine were obtained consecutively following intravenous administration of single dose of 14 mL Dotarem. INDICATION: Metastatic Hodgkin's lymphoma with cervical spinal lesion. COMPARISON: MRI cervical spine without contrast 04/25/2023 and MRI lumbar spine with and without contrast 04/26/2023. INDICATION: Metastatic Hodgkin's lymphoma with cervical spinal lesion. COMPARISON: MRI thoracic spine exam with and without contrast and CT chest, abdomen and pelvis with contrast exams of 04/26/2023. TECHNIQUE: Three views of the lumbar spine were obtained FINDINGS: There are motion related artifacts, which may lower the sensitivity and specificity of the exam. Numerous enhancing osseous metastasis are seen in the lumbar spine and in the included lower thoracic spine and upper sacrum, most extensive in the L4 vertebral body in the lumbar spine. There is mild marrow expansion of the L4 and likely also of the L3 vertebral bodies. No compression fracture or other pathological fracture is identified on the MRI exam. There is enhancing epidural extension of neoplasm in the ventral spinal canal at the L4 vertebral level encroaching on theventral spinal canal with moderate central canal stenosis at the L4 level. There is a nonenhancing CSF prominence in the posterior spinal canal from inferior L1 level to upper L3 level causing anterior displacement of the cauda equina, possibly from an arachnoid cyst, with posterior epidural neoplasm within the spinal canal less likely given the lack of abnormal enhancement, but please correlate c linically. There is concern for at least moderate spinal canal stenosis at the L2 level. Conus medullaris terminates at the L1-2 level with normal signal intensity without abnormal enhancement. No evidence of significant disc bulge or disc herniation in the lumbar spine. Paraspinal soft tissues aregrossly unremarkable. Please refer to the CT chest, abdomen and pelvis exam of 04/26/2023 for the extraspinal findings. IMPRESSION: 1. Numerous osseous metastasis in the lumbar spine and included lower thoracic and sacral spine with small metastatic lesions also seen in a few posterior elements in the lumbar spine. 2.No pathological fracture. 3. Suspect ventral epidural extension of tumor into the ventral spinal canal at L4 level, likely expansion of L4 vertebral body osseous metastasis into the ventral spinal canal. Central canal stenosis at L4 level. 4. Nonenhancing CSF prominence or less likely nonenhancing epidural prominence of soft tissue in the posterior spinal canal from inferior L1 to upper L3 level is likely from an arachnoid cyst, with posterior epidural neoplasm less likely. 5. Exam is limited by motion related artifact, which may lower the sensitivity of the exam. Please see the CT chest, abdomen and pelvis with contrast exam of 04/26/2023 for the extraspinal findings. Referred By: PROVIDERNON-STAFF Interpreted By: Matilda Chew MD, 04/27/2023 12:39 AM MRI THOR SPINE WWO CON Result Date: 04/27/2023 EXAMINATION: MRI Thoracic Spine without and with intravenous contrast. Multiplanar, multisequence MR imaging of thoracic spine was performed prior to and following intravenous administration of 14 mLDotarem. The postcontrast MR images of the brain, thoracic and lumbar spine were obtained consecutively following intravenous administration of single dose of 14 mL Dotarem. INDICATION: Metastatic Hodgkin's lymphoma with cervical spinal lesion. COMPARISON: MRI cervical spine without contrast 04/25/2023 and MRI lumbar spine with and without contrast 04/26/2023. FINDINGS: There is preservation of the normal thoracic kyphosis. Normal vertebral body heights are maintained. Numerous osseous metastasis are seen in the included lower cervical, thoracic and included upper lumbar spine, most extensivein T1, T4, T5, T7 and T11 vertebral bodies with several small lesions also seen in the posterior elements of the thoracic spine with no pathological fracture seen in the thoracic spine. Preservation of normal thoracic kyphosis and normal vertebral heights and alignment in the thoracic spine. No significant disc bulge, disc herniation, spinal canal or foraminal stenosis in the thoracic spine. Normal signal intensity in the thoracic cord with no abnormal enhancement. Conus medullaris is better visualized on the MRI lumbar spine exam. Numerous metastatic rib lesions are also noted in the partially included bilateral rib cage. Small bibasilar pleural effusions. Please refer to the CT chest, abdomen and pelvis exam of 04/26/2023 for the extraspinal findings. IMPRESSION: 1. Numerous osseous metastasis scattered throughout the thoracic spine as detailed above with no acute pathological compression fracture identified. Preservation of vertebral heights in the thoracic spine. 2. No significant disc herniation, spinal canal or foraminal stenosis seen. 3. Please refer to the CT chest, abdomen, and pelvis with contrast exam of 04/26/2023 regarding the extraspinal findings. 4. Multiple metastatic lesions in the partially included bilateral rib cage. Referred By: PROVIDER NON-STAFF Inter preted By: Matilda Chew MD, 04/27/2023 12:39 AM MRI BRAIN WO CON Result Date: 04/25/2023 EXAMINATION: MRI BRAIN WO CON, 04/25/2023 7:53 PM TECHNIQUE: Multiplanar multisequence magnetic resonance images of the brain were obtained without intravenous contrast. HISTORY: Metastatic Hodgkin lymphoma COMPARISON: CT head 12/15/2022 FINDINGS: Mild to moderate motion evaluation the examination.No restricted diffusion to suggest an acute infarction. There is hemorrhagic focus of susceptibility. Preserved villagomez-white matter differentiation. The sellar, callosal, pineal and craniovertebral junction regions appear within normal limits. Suggestion of anterior epidural soft tissue thickening involving the C3- 4 spinal canal (on series 5 image 17). T1 hypointense marrow signal seen throughout the osseous structures that may be related to marrow replacement No extra-axial fluid collection. Theventricles are normal in size. The basal cisterns appear normal. The proximal intracranial arterialflow voids are normal appearance. Orbital contents appear normal. The nasal sinuses and mastoid air cells are well-aerated. IMPRESSION: 1. No acute intracranial abnormality allowing for mild to moderate motion and rotation of the exam. 2. Indeterminate prominent anterior epidural soft tissue thickening at the C4 level within the cervical spinal canal. Attention on MRI cervical spine exam recommended for further characterization. 3. Diffuse T1 hypointense marrow signal that may be related to marrow replacement from underlying malignancy. Referred By: PROVIDER NON-STAFF Interpreted By: Jewel Shaver MD, 04/25/2023 7:53 PM Electronically signed by Allison Vela [facility] at 04/27/2023 1:14 PM CDT * Cari Ghotra RN - 04/27/2023 9:30 AM CDT 04/27/23 1138 Interdisciplinary Group Conference Team Members Present Physician;Case/Care management;Nursing Physician present for group conference Dr. Keyshawn MD Barriers to Discharge Barriers Complex - Social and/or Medical Complex - Social and/or Medical follow up sepsis - IV abx; creative services writer to reach to Oncology re: transferto [facility]. ~1430 MD updated the creative services writer; [facility] has accepted the patient; the facility will have a bed later today/tonight or tomorrow morning - the facility will call the 8th floor when a bed is open. Retail Manager obtained transfer paperwork and placed on the chart for MD to fill out/sign; PCS also filled out and placed on the chart in preparation for transfer; credit card specialist updated - she will need to place the date and address of the facility once she is updated on the bed status at [facility]; credit card specialist will also call [facility] and request ambulance at that time. * Roge Shaver MD - 04/27/2023 6:11 AM CDT ORTHOPAEDIC SURGERY PROGRESS NOTE S: Patient resting company in bed. No acute events overnight. Reports diffuse pain. Denies any numbness, tingling, or weakness to his extremities. No other complaints at this time. O: Physical Exam: GEN: No acute distress. Alert and oriented to person, place and time. HEART: Regular rate. Good peripheral perfusion. RESP: Airway patent. No acute respiratory distress. PSYCH: Appropriate mood and affect. Cooperative with exam. MSK: Spine; Tender to palpation over thoracolumbar spine, non tender to remainder of thoracic and cervical spine. No step-offs appreciable. Perianal sensation intact, rectal exam not indicated at this time. Clonus and sandy negative. -BUE: Skin intact. Nontender from clavicle to fingers. Compartments soft and compressible Painless ROM of shoulder, elbow, wrist, and fingers. Motor intact in the axillary, AIN, PIN, and ulnar nerves. SILT in the axillary, median, radial, and ulnar nerves. Radial pulse 2+. 3/5 biceps, triceps, and BR reflex. Sandy negative -BLE: Skin intact, swelling present to the level of the knee. Compartments compressible. Nontender to palpation from the hip to the toes. Painless ROM of the hip, knee, ankle, and toes. Actively firing gastroc, FHL, tib ant, and EHL. SILT in the DP,SP,SAPH,ISSAC,TIB nerves. 3/5 patellar reflex. Babinksi and clonus negative. ASSESSMENT/PLAN: Crystal Capone is a 33-year-old male with multiple lytic lesions throughout the sacrum and vertebral bodies as well an age indeterminate L4 compression fracture. He remains neuro intact with no evidence of myelopathy. MRI of the cervical spine shows stenosis at C3-4-5 without cord compression or myelomalacia. Would consider corpectomy of C4 and C5 if tumor load in these bodies causes collapse or significant pain. Ortho will continue to follow peripherally. Admitted to hospitalist [facility]ine Ortho consulted (Dr. Worley) Pain: per primary Diet: okay for general diet from ortho standpoint Activity: WBAT Imaging: MRI of the C/T/L spine reviewed Medical: per primary Dispo: No plans for acute orthopedic intervention at this time. Discussed with Dr. Worley who agrees with above assessment and plan. Roge Shaver MD Cosigned by Stevan Worley MD at 04/29/2023 6:28 AM CDT * Sugar Luna RN - 04/27/2023 5:05 AM CDT Problem: Reduced risk for falls/injury Goal: Reduced Risk for Falls/Injury Outcome: Not Progressing Patient had a witnessed fall while he was going to the bathroom. Pt did not hit his head. He was walking to the bathroom with the use of a walker. The CRAYON MOLDING MACHINE OPERATOR was assisting him to the bathroom that time.He said his legs seemed to give up. CRAYON MOLDING MACHINE OPERATOR assisted patient back to the bed. Checked patient's vitals,pain medicine given for hart pain. Neuro intact. No new weakness, no numbness and tingling sensation . MANAGER EQUITY Bradley Ramos informed. No new orders. Rechecked patient q 30min to 1 hr. Problem: Reduced risk for falls/injury Goal: Reduced Risk of Confusion (Acute vs Chronic) Outcome: Progressing Goal: Reduced Risk of Symptomatic Depression Outcome: Progressing Goal: Reduced Risk of Altered Elimination Outcome: Progressing Goal: Reduced Risk of Dizziness/Vertigo/Balance Outcome: Progressing Goal: Reduced Risk of Polypharmacy Outcome: Progressing Problem: Pain - Acute Goal: Achieve acceptable pain level Outcome: Progressing Problem: Infection - Risk of, Central Venous Catheter-Associated Bloodstream Infection Goal: Absence of Central Venous Catheter Associated Bloodstream Infection Signs and Symptoms Outcome: Progressing * Jarrell Duran MD - 04/26/2023 5:09 PM CDT INPATIENT PROGRESS NOTE Date of service: 04/26/2023, Hospital Day ( LOS: 2 days ) SUBJECTIVE Patient complains of some blurry vision and double vision, he denies any complaint of headache, nausea, vomiting, denies any complaints of any focal weakness. He has generalized body pain, more pronounced in his back. Comprehensive review of systems otherwise remains negative. ROS 12 Point ROS has been reviewed and is negative except as stated in subjective section OBJECTIVE: Patient Vitals for the past 12 hrs: BP Temp Pulse Resp SpO2 04/26/23 1549 (!) 140/66 -- (!) 117 -- 97 % 04/26/23 0945 116/55 97.9 ??F (36.6 ??C) 83 -- 97 % 04/26/23 0717 114/48 -- 86 -- 98 % 04/26/23 0709 122/48 97.5 ??F (36.4 ??C) 87 16 98 % 04/26/23 0655 -- -- -- 18 -- 04/26/23 0654 114/53 97.3 ??F (36.3 ??C) 85 -- 94 % Temp (24hrs), Av.9 ??F (36.6 ??C), Min:97.3 ??F (36.3 ??C), Max:98.3 ??F (36.8 ??C) I&O: I/O last 3 completed shifts: In: 786 [P.O.:436; Blood:350] Out: 300 [Urine:300] Weights: Wt Readings from Last 3 Encounters: 04/24/23 71 kg (156 lb 8.4 oz) 12/20/22 73.9 kg (163 lb) 10/27/22 75.3 kg (166 lb) Physical Exam Constitutional: Appearance: He is well-developed. HENT: Head: Normocephalic. Eyes: Pupils: Pupils are equal, round, and reactive to light. Cardiovascular: Rate and Rhythm: Normal rate and regular rhythm. Heart sounds: Normal heart sounds. Pulmonary: Effort: Pulmonary effort is normal. Breath sounds: Normal breath sounds. Abdominal: General: Bowel sounds are normal. Palpations: Abdomen is soft. Musculoskeletal: General: Tenderness present. Normal range of motion. Cervical back: Normal range of motion. Comments: Tender to touch on thoracic and lumbar spine Skin: General: Skin is warm and dry. Neurological: Mental Status: He is alert and oriented to person, place, and time. Lab Review Recent Labs Lab 04/26/23313 WBC 5.08 RBC 2.94* HGB 6.4* HCT 22.0* MCV 74.8* MCH 21.8* MCHC 29.1* PLT 452* RDW 16.5* MPV 8.9 NEUC 3.70 LYMC 0.19* MONOC 0.96 EOSC 0.13 BASOC 0.02 Recent Labs Lab 04/25/23 1106 04/25/23 1937 04/26/23 0314 NA 134* 136 134* K 4.6 4.2 4.1 CL 100 100 101 CO2 31.0 30.3 31.0 AGAP 3.0* 5.7 2.0* BUN 20* 20* 19* CR 1.34* 1.32* 1.14 GLU 75 115* 93 CA 11.4* 11.0* 10.3* TP 6.3* 6.3* 6.0* ALB 1.8* 1.7* 1.7* TBIL 0.9 0.9 0.7 ALKP 305* 290* 322* AST 13* 14* 12* ALT 11* 12* 10* Cardiac markers: No components found for: TROPONINI RADIOLOGY REVIEWED MEDICATIONS Scheduled medications DULoxetine 60 mg Oral Daily gabapentin 300 mg Oral TID morphine CR 30 mg Oral BID nicotine 1 patch Transdermal Q24H normal saline 3-10 mL Intravenous Q8H pantoprazole 40 mg Intravenous Daily Infusion sodium chloride 125 mL/hr at 04/26/23 0445 sodium chloride 250 mL (04/26/23 0655) PRN acetaminophen, diphenhydrAMINE, HYDROcodone-acetaminophen, hydrOXYzine, morphine, naLOXone, normal saline, ondansetron, polyethylene glycol ASSESSMENT & PLAN Crystal Capone is a 33-year-old M with PMH Stage IV hodgkin's lymphoma (08/2021), recent admit 12/14-12/21/22 for acute respiratory failure 2/2 pneumonia requiring intubation, septic shock on pressor support, HFrEF 45-50%, current smoker, anxiety, depression, transferred from [facility] to [facility] for 3d LE edema, SANCHEZ, and difficulty walking. Workup thus far reveals hypercalcemia that could befrom malignant etiology and new c4 and c5 lytic lesions with 5mm L paracentral soft tissue extension into the canal. He has not had chemotherapy since November 2022 due to neutropenic fever. Stage IV Hodgkin Lymphoma New C4 + C5 lytic lesion - Oncologist: Dr. Ashford -Completed 2 cycles ABVD without issue. Restaging showed mixed response and he was switched to BEACOPP. Completed 2 cycles and most of cycle 3 BEACOPP (up to day 8 December 02, 2022) but had to stop prednisone due to neutropenic fever - LDH normal 124, ESR 43, retic 2.3, ferritin 1311. - Ortho spine consulted and following. - MRI brain no acute intracranial abnormality, MRI C spine shows prominent anterior epidural soft tissue extending from C3 to C5 contributing to moderate spinal canal stenosis, as described above. Findings most likely represent extraosseous extension of malignancy into the anterior epidural space. - MRI T + L spine pending. -CT chest / abdomen / pelvis w/con was done and reviewed progressive multifocal adenopathy above and below the diaphragm, likely reflecting Hodgkin's lymphoma. Predominant sites of adenopathy includebilateral inguinal regions, upper retroperitoneum near the level of the renal vessels, and left supraclavicular fossa. -We also discussed the case with patient's oncologist Dr. Ashford. Recommendations -Recommended to consult radiation oncology for C spine lesion. -Will need biopsy of one of the lymph nodes, if positive for lymphoma this would be a refractory HLand would need salvage chemotherapy such as BV, BV plus Bendamustine, BV plus nivolumab, GVD plus immunotherapy etc, and he would likely be referred to [facility]. -Follow MRI of T and L-spine. Right upper lobe mass -Right upper lobe 5 cm mass seen on the CT chest, concerning for second primary versus lymphoma. Recommendations -Would need IR guided biopsy of this mass. Hypercalcemia of Malignancy : LEON -s/p one dose of zometa on 04/25. Recommendations -continue IVF --creatinine improved, Ca 10.4 with albumin 1.7.corrected ca 11.7, Patient appears dry on exam and has a component of dehydration -check daily CMP - workup for multiple myeloma SPEP, UPEP, FLC, is in process, will follow. Microcyctic anemia - MCV 76.9,hemoglobin 6.4 today, 1U PRBC transfused. Recommendations -Repeat CBC in the evening.If hemoglobin <7.0 transfuse leukoreduced, irradiated, CMV negative blood products -Iron panel- iron 16, ferritin 1311, %10 -follow soluble transferrin receptor -GI consult if needed HFrEF 45-50% (12/16/22) - Repeat ECHO ordered, we will follow. -Above plan of care has been discussed with the patient, and with the primary care team in detail. -I also called MIC, During our telephonic conversation, I had a comprehensive discussion with Mic,who is the patient's power of assistant district attorney and mother. We reviewed all the imaging results, expressed concerns about the potential recurrence of lymphoma, outlined the need for biopsy, and, if necessary,the subsequent steps involving salvage chemotherapy. we also discussed the possibility of a referral to [facility]. Mic appeared to have a good grasp of the information provided and agreed to our plan. JARRELL DURAN MD 04/26/2023 5:09 PM Cosigned by Ivan Moore MD at 04/26/2023 9:38 PM CDT Associated attestation - Ivan Moore MD - 04/26/2023 9:38 PM CDT I have personally seen and examined the patient. Reviewed the medical records, including labs and imaging studies. I agree with the above assessment and plan of my resident/fellow. Ivan Moore MD FACP [facility] * Stevan Worley MD - 04/26/2023 4:12 PM CDT Progress Note Crystal Capone [id number] 33-year-old male 1990 Subjective: Able to open eyes and converse today, denies numbness r tingling in upper or lower ext Neck isn't too sore Objective: Blood pressure (!) 140/66, pulse (!) 117, temperature 97.9 ??F (36.6 ??C), resp. rate 16, height 1.71 m (5' 7.32 ), weight 71 kg (156 lb 8.4 oz), SpO2 97 %. Intake/Output Summary (Last 24 hours) at 04/26/2023 1612 Last data filed at 04/26/2023 1300 Gross per 24 hour Intake 786 ml Output 300 ml Net 486 ml Physical Exam: Inspection reveals him to bee AAO /NAD Move yahaira four ext Cervical AROM intact MRi vcervical reviewed personally and I agree with radiologist, he does have stenosis C3-4-5 but nocord compression and no myelomalacia (abnormal cord signal on MRI) Recent Results (from the past 24 hour(s)) COMPREHENSIVE METABOLIC PANEL Collection Time: 04/25/23 7:37 PM Result Value Ref Range SODIUM S/P/B 136 136 - 145 MMOL/L POTASSIUM S/P/B 4.2 3.5 - 5.1 MMOL/L CHLORIDE S/P/B 100 98 - 107 MMOL/L CO2 30.3 21.0 - 32.0 MMOL/L GLUCOSE 115 (H) 74 - 106 MG/DL BUN 20 (H) 7 - 18 MG/DL CREATININE S/P/B 1.32 (H) 0.70 - 1.30 MG/DL CALCIUM S/P/B 11.0 (H) 8.5 - 10.1 MG/DL BILIRUBIN TOTAL S/P/B 0.9 0.2 - 1.0 MG/DL ALKALINE PHOSPHATASE S/P/B 290 (H) 45 - 115 U/L AST 14 (L) 15 - 37 U/L ALT 12 (L) 16 - 61 U/L TOTAL PROTEIN S/P/B 6.3 (L) 6.4 - 8.2 G/DL ALBUMIN S/P/B 1.7 (L) 3.4 - 5.0 G/DL ANION GAP 5.7 5.0 - 15.0 MMOL/L OSMOLALITY (CALC) 286 MOSM/KG GFR ESTIMATE 73 (L) >90 ML/MIN/1.73 M2 GFR NOTES GFR REFERENCES: CBC W/DIFF AUTOMATED Collection Time: 04/25/23 7:37 PM Result Value Ref Range WBC 5.32 4.00 - 10.80 x10'3/uL RBC 3.31 (L) 4.50 - 6.10 x10'6/uL HGB 7.2 (L) 13.0 - 18.0 G/DL HCT 24.7 (L) 37.0 - 52.0 % MCV 74.6 (L) 78.0 - 100.0 FL MCH 21.8 (L) 27.0 - 31.0 PG MCHC 29.1 (L) 33.0 - 36.0 G/DL RDW 16.3 (H) 11.5 - 14.5 % PLT 450 (H) 150 - 350 x10'3/uL MPV 8.5 7.4 - 10.4 FL ABS. NEUTROPHILS 4.13 1.60 - 8.30 x10'3/uL ABS. LYMPHOCYTES 0.19 (L) 0.80 - 4.70 x10'3/uL ABS. MONOCYTES 0.76 0.00 - 1.50 x10'3/uL ABS. EOSINOPHILS 0.15 0.00 - 0.40 x10'3/uL ABS. BASOPHILS 0.01 0.00 - 0.20 x10'3/uL ABS. IMMATURE GRANULOCYTES 0.08 (H) 0.00 - 0.03 x10'3/uL ABS. NUCLEATED RBC'S 0.00 0.0 x10'3/uL PROTEIN ELECTROPHORESIS URINE RANDOM Collection Time: 04/25/23 8:00 PM Result Value Ref Range PROTEIN URINE TOTAL RANDOM 50.1 (H) <12.0 MG/DL INTERPRETATION PENDING PROTEIN, ELECTROPHORESIS Collection Time: 04/26/23 3:14 AM Result Value Ref Range TOTAL PROTEIN (ELECTROPHORESIS SERUM) 5.2 (L) 6.0 - 8.3 G/DL ALBUMIN ELECTROPHORESIS S/P/B 2.0 (L) 3.4 - 4.9 G/DL [id number] S/P/B 0.7 (H) 0.2 - 0.4 G/DL [id number] S/P/B 1.0 0.4 - 1.0 G/DL BETA GLOBULIN S/P/B 0.8 0.5 - 1.2 G/DL GAMMA GLOBULIN S/P/B 0.7 0.6 - 1.6 G/DL ELECTROPHORESIS INTERPRETATION PENDING IMMUNOGLOBULINS IGA IGG IGM Collection Time: 04/26/23 3:14 AM Result Value Ref Range IGA 253.0 70.0 - 400.0 MG/DL IGG 919.0 700.0 - 1,600.0 MG/DL IGM 36.8 (L) 40.0 - 230.0 MG/DL COMPREHENSIVE METABOLIC PANEL Collection Time: 04/26/23 3:14 AM Result Value Ref Range SODIUM S/P/B 134 (L) 136 - 145 MMOL/L POTASSIUM S/P/B 4.1 3.5 - 5.1 MMOL/L CHLORIDE S/P/B 101 98 - 107 MMOL/L CO2 31.0 21.0 - 32.0 MMOL/L GLUCOSE 93 74 - 106 MG/DL BUN 19 (H) 7 - 18 MG/DL CREATININE S/P/B 1.14 0.70 - 1.30 MG/DL CALCIUM S/P/B 10.3 (H) 8.5 - 10.1 MG/DL BILIRUBIN TOTAL S/P/B 0.7 0.2 - 1.0 MG/DL ALKALINE PHOSPHATASE S/P/B 322 (H) 45 - 115 U/L AST 12 (L) 15 - 37 U/L ALT 10 (L) 16 - 61 U/L TOTAL PROTEIN S/P/B 6.0 (L) 6.4 - 8.2 G/DL ALBUMIN S/P/B 1.7 (L) 3.4 - 5.0 G/DL ANION GAP 2.0 (L) 5.0 - 15.0 MMOL/L OSMOLALITY (CALC) 280 MOSM/KG GFR ESTIMATE 87 (L) >90 ML/MIN/1.73 M2 GFR NOTES GFR REFERENCES: CBC W/DIFF AUTOMATED Collection Time: 04/26/23 3:14 AM Result Value Ref Range WBC 5.08 4.00 - 10.80 x10'3/uL RBC 2.94 (L) 4.50 - 6.10 x10'6/uL HGB 6.4 (LL) 13.0 - 18.0 G/DL HCT 22.0 (L) 37.0 - 52.0 % MCV 74.8 (L) 78.0 - 100.0 FL MCH 21.8 (L) 27.0 - 31.0 PG MCHC 29.1 (L) 33.0 - 36.0 G/DL RDW 16.5 (H) 11.5 - 14.5 % PLT 452 (H) 150 - 350 x10'3/uL MPV 8.9 7.4 - 10.4 FL ABS. NEUTROPHILS 3.70 1.60 - 8.30 x10'3/uL ABS. LYMPHOCYTES 0.19 (L) 0.80 - 4.70 x10'3/uL ABS. MONOCYTES 0.96 0.00 - 1.50 x10'3/uL ABS. EOSINOPHILS 0.13 0.00 - 0.40 x10'3/uL ABS. BASOPHILS 0.02 0.00 - 0.20 x10'3/uL ABS. IMMATURE GRANULOCYTES 0.08 (H) 0.00 - 0.03 x10'3/uL ABS. NUCLEATED RBC'S 0.00 0.0 x10'3/uL IMMUNOFIXATION Collection Time: 04/26/23 3:14 AM Result Value Ref Range IMMUNOFIXATION SERUM SEE PATHOLOGIST'S INTERPRETATION IMMUNOFIX (SERUM) INTERPRETATION PENDING TYPE & SCREEN Collection Time: 04/26/23 4:44 AM Result Value Ref Range UNITS ORDERED 1 ABO/RH O POSITIVE ANTIBODY SCREEN NEGATIVE SAMPLE EXPIRATION 04/29/2023,2359 BLOOD UNIT NUMBER [id number] PRODUCT: PC LEUKOPOOR UNIT DIVISION 00 BLOOD UNIT STATUS ISSUED ISSUE DATE/TIME [id number] PRODUCT CODE [id number] ABO/RH Unit O POS ABO/RH UNIT ISBT CODE 5100 BLOOD UNIT EXPIRATION DATE [id number] TRANSFUSION STATUS OK TO TRANSFUSE CROSSMATCH COMPATIBLE-EXM Current Facility-Administered Medications: acetaminophen (TYLENOL) tablet 650 mg, 650 mg, Oral, Q4H PRN, Barby Stevens III, MD diphenhydrAMINE (BENADRYL) injection 25 mg, 25 mg, Intravenous, Q6H PRN, Barby Stevens III, MD DULoxetine (CYMBALTA) capsule 60 mg, 60 mg, Oral, Daily, Barby Stevens III, MD, 60 mg at 04/25/23 0832 gabapentin (NEURONTIN) capsule 300 mg, 300 mg, Oral, TID, Barby Stevens III, MD, 300 mg at 04/26/23 1514 HYDROcodone-acetaminophen (NORCO) 5-325 MG tablet 1 tablet, 1 tablet, Oral, Q4H PRN, Barby Stevens III, MD, 1 tablet at 04/26/23 1514 hydrOXYzine (ATARAX) tablet 25 mg, 25 mg, Oral, TID PRN, Bryce Parks MD, 25 mg at 04/25/232101 morphine CR (MS CONTIN) tablet 30 mg, 30 mg, Oral, BID, Barby Stevens III, MD, 30 mg at 904 morphine injection 4 mg, 4 mg, Intravenous, Q3H PRN, Bryce Parks MD naLOXone (NARCAN) injection 0.4 mg, 0.4 mg, Intravenous, PRN, Barby Stevens III, MD nicotine (NICODERM CQ) 21 MG/24HR patch 21 mg, 1 patch, Transdermal, Q24H, Barby Stevens III, MD, 21 mg at 04/26/23 0320 normal saline 0.9 % flush 3-10 mL, 3-10 mL, Intravenous, Q8H, Barby Stevens III, MD, 3 mL at 04/26/23 1205 normal saline 0.9 % flush 3-10 mL, 3-10 mL, Intravenous, PRN, Barby Stevens III, MD ondansetron (ZOFRAN) injection 4 mg, 4 mg, Intravenous, Q8H PRN, Barby Stevens III, MD, 4 mg at 04/24/23 2246 pantoprazole (PROTONIX) 40 mg in sodium chloride (PF) 0.9 % 10 mL IV, 40 mg, Intravenous, Daily, Bryce Parks MD, 40 mg at 04/26/23 1204 polyethylene glycol (GLYCOLAX) packet 17 g, 17 g, Oral, Daily PRN, Barby Stevens III, MD sodium chloride 0.9% infusion, , Intravenous, Continuous, Brianna Francis DO, Last Rate: 125 mL/hr at1 0445, New Bag at 04/26/23 0445 sodium chloride 0.9% infusion, 250 mL, Intravenous, Continuous, Brenna Ramos, [place], Last Rate: 10mL/hr at 04/26/23 0655, 250 mL at 04/26/23 0655 Assessment and Plan: I don't see any notes from Radiation Oncology He's not really in much pain and has no nuero deficits so I don't think he needs urgent surgical intervention COuld offer corpectomy of C4 and C5 if tumor load in these bodies causes collapse or significant pain, I can follow along peripherally for changes. WM Wolf WORLEY MD 04/26/2023 * Bryce Parks MD - 04/26/2023 1:57 PM CDT Progress note SUBJECTIVE: Patient seen and examined Labs reviewed More awake, feels better, is moving his Upper and lower extremities Reports having normal BM Chief Complaint: Cervical intraspinal and vertebral lesions hypercalcemia Review of Systems Constitutional: Positive for malaise/fatigue. Negative for fever. HENT: Negative for hearing loss and sore throat. Eyes: Negative for photophobia and pain. Respiratory: Negative for cough and shortness of breath. Cardiovascular: Negative for chest pain and palpitations. Gastrointestinal: Negative for abdominal pain and vomiting. Genitourinary: Negative for dysuria and urgency. Musculoskeletal: Negative for back pain and joint pain. Skin: Negative for rash. Neurological: Positive for weakness. Negative for dizziness and headaches. Psychiatric/Behavioral: The patient is not nervous/anxious. OBJECTIVE Blood pressure 116/55, pulse 83, temperature 97.9 ??F (36.6 ??C), resp. rate 16, height 1.71 m (5' 7.32 ), weight 71 kg (156 lb 8.4 oz), SpO2 97 %. Physical Exam Constitutional: Appearance: He is well-developed. He is ill-appearing. HENT: Head: Normocephalic. Mouth/Throat: Mouth: Mucous membranes are moist. Eyes: Conjunctiva/sclera: Conjunctivae normal. Cardiovascular: Rate and Rhythm: Normal rate and regular rhythm. Heart sounds: Normal heart sounds. No murmur heard. No gallop. Pulmonary: Effort: Pulmonary effort is normal. No respiratory distress. Breath sounds: Normal breath sounds. No wheezing or rales. Chest: Chest wall: No tenderness. Abdominal: General: Bowel sounds are normal. There is no distension. Palpations: Abdomen is soft. Tenderness: There is no abdominal tenderness. There is no guarding or rebound. Musculoskeletal: General: No tenderness. Normal range of motion. Cervical back: Normal range of motion. No rigidity. Skin: General: Skin is warm. Coloration: Skin is not pale. Findings: No erythema or rash. Neurological: Mental Status: He is alert and oriented to person, place, and time. Sensory: No sensory deficit. Motor: No weakness. Psychiatric: Mood and Affect: Mood normal. Behavior: Behavior normal. LABS:. Recent Labs 04/25/23 0252 04/25/23193604/26/234 WBC 6.09 5.32 5.08 HGB 7.0* 7.2* 6.4* HCT 25.0* 24.7* 22.0* MCV 76.9* 74.6* 74.8* PLT 484* 450* 452* RBC 3.25* 3.31* 2.94* Recent Labs Lab 04/25/23 1106 04/25/23193604/26/23 0314 NA 134* 136 134* K 4.6 4.2 4.1 CL 100 100 101 CO2 31.0 30.3 31.0 AGAP 3.0* 5.7 2.0* BUN 20* 20* 19* CR 1.34* 1.32* 1.14 GLU 75 115* 93 CA 11.4* 11.0* 10.3* TP 6.3* 6.3* 6.0* ALB 1.8* 1.7* 1.7* TBIL 0.9 0.9 0.7 ALKP 305* 290* 322* AST 13* 14* 12* ALT 11* 12* 10* No results for input(s): INR in the last 168 hours. Intake/Output Summary (Last 24 hours) at 04/26/2023 1357 Last data filed at 04/26/2023 1300 Gross per 24 hour Intake 786 ml Output 300 ml Net 486 ml RADIOLOGY : REVIEWED MEDICATIONS Scheduled medications DULoxetine 60 mg Oral Daily gabapentin 300 mg Oral TID morphine CR 30 mg Oral BID nicotine 1 patch Transdermal Q24H normal saline 3-10 mL Intravenous Q8H pantoprazole 40 mg Intravenous Daily Infusion sodium chloride 125 mL/hr at 04/26/23 0445 sodium chloride 250 mL (04/26/23 0655) PRN acetaminophen, diphenhydrAMINE, HYDROcodone-acetaminophen, hydrOXYzine, morphine, naLOXone, normal saline, ondansetron, polyethylene glycol ASSESSMENT /PLAN Crystal Capone is a 33-year-old male Admitted with Leg weakness, bilateral Non Hodgkin's lymphoma ([facility]/HCC) ([facility]/HCC) PLAN: Cervical intraspinal and vertebral lesions -Patient presents with above symptoms, double vision -MRI c spine done robert herrear -Hematology-oncology, spinal surgery on consult, appreciate assistance -MRI brain neg MRI L and T spine awaited Orth spine on consult Stage ALANA Hodgkin's lymphoma -Chemotherapy on hold since 11/24 -Hematology-oncology on consult as above, appreciate assistance, defer to them Acute renal failure Resolved hypercalcemia -Calcium at outside facility elevated at 11.7, with albumin 1.8 S/p IVF Zometa Ca improving Anemia -worse today S/p 1 PRBC No active bleeding Check stool occult PPI Dc subq heparin Systolic congestive heart failure -EF recently found to be 45 to 50% on echocardiogram 12/16/2022 Repeat echo ordered No dyspnea -Patient has diffuse anasarca as well as scrotal edema and dyspnea on exertion but no orthopnea andis breathing comfortably on room air Addendum MRI C spine seen Rad Onc consulted D/w oncology Prbc given Empiric abx added CT ca/p reviewed Send septic workup,ammonia, repeat HnH MRI brain w contrast r/o mets, double vision reported on admission eeg CODE STATUS: FULL CODE Code status: Full Code Discussed with RN on the plan Total time spent: 52 minutes, more than 50% of time spent in coordination of care and discussing with patient about current medical condition and management BRYCE PARKS MD 1:57 PM 04/26/2023 * Lisha Reeves RN - 04/26/2023 12:06 PM CDT 04/26/23 1000 Referral Data Source of Information Patient Patient Information Primary Caregiver Self Current living Situation Family members Type of Residence Private residence Support System Extended family Are you employed? 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 HCPOA - not on file. The patient currently lives in a private residence with his aunt. She can provide some support and assistance if needed; at baseline, the patient is independent with ADLs. Until this last week prior to admission. Does not use any DME No current [facility] [place] services or interim help in the home. The patient has not been hospitalized in the last 30 days; He sees Dr. Juan for general medicalneeds. COVID vaccination status: the patient has not vaccinated for COVID. 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 No current safety, abuse, neglect, or financial concerns to report. No reported issues with medication compliance. At discharge, the patient plans to return plan . He will need assistance with a ride home. CM will continue to follow for safe discharge planning. * Lisha Reeves RN - 04/26/2023 12:05 PM CDT 04/26/23 1100 Interdisciplinary Group Conference Team Members Present Physician;Nursing Physician present for group conference Keyshawn Barriers to Discharge Barriers Complex - Social and/or Medical Complex - Social and/or Medical follow up Hypercalcemia, new lesions - need updated staging. Neurosurgery/onc - waiting on recs. * Huma Chapin RN - 04/26/2023 11:33 AM CDT Problem: Reduced risk for falls/injury Goal: Reduced Risk for Falls/Injury Outcome: Progressing Goal: Reduced Risk of Confusion (Acute vs Chronic) Outcome: Progressing Goal: Reduced Risk of Symptomatic Depression Outcome: Progressing Goal: Reduced Risk of Altered Elimination Outcome: Progressing Goal: Reduced Risk of Dizziness/Vertigo/Balance Outcome: Progressing Goal: Reduced Risk of Polypharmacy Outcome: Progressing Problem: Pain - Acute Goal: Achieve acceptable pain level Outcome: Progressing Problem: Infection - Risk of, Central Venous Catheter-Associated Bloodstream Infection Goal: Absence of Central Venous Catheter Associated Bloodstream Infection Signs and Symptoms Outcome: Progressing * Sugar Luna RN - 04/26/2023 3:36 AM CDT Problem: Reduced risk for falls/injury Goal: Reduced Risk for Falls/Injury Outcome: Progressing Goal: Reduced Risk of Confusion (Acute vs Chronic) Outcome: Progressing Goal: Reduced Risk of Symptomatic Depression Outcome: Progressing Goal: Reduced Risk of Altered Elimination Outcome: Progressing Goal: Reduced Risk of Dizziness/Vertigo/Balance Outcome: Progressing Goal: Reduced Risk of Polypharmacy Outcome: Progressing Problem: Pain - Acute Goal: Achieve acceptable pain level Outcome: Progressing Problem: Infection - Risk of, Central Venous Catheter-Associated Bloodstream Infection Goal: Absence of Central Venous Catheter Associated Bloodstream Infection Signs and Symptoms Outcome: Progressing * Bryce Parks MD - 04/25/2023 4:20 PM CDT Progress note SUBJECTIVE: Patient seen and examined Labs reviewed Very tired Was given ativan Arousable but sleepy Chief Complaint: Cervical intraspinal and vertebral lesions hypercalcemia Review of Systems Constitutional: Positive for malaise/fatigue. Negative for fever. HENT: Negative for hearing loss and sore throat. Eyes: Negative for photophobia and pain. Respiratory: Negative for cough and shortness of breath. Cardiovascular: Negative for chest pain and palpitations. Gastrointestinal: Negative for abdominal pain and vomiting. Genitourinary: Negative for dysuria and urgency. Musculoskeletal: Positive for back pain and joint pain. Skin: Negative for rash. Neurological: Negative for dizziness and headaches. Psychiatric/Behavioral: The patient is not nervous/anxious. OBJECTIVE Blood pressure 114/56, pulse 85, temperature 98 ??F (36.7 ??C), temperature source Oral, resp. rate18, height 1.71 m (5' 7.32 ), weight 71 kg (156 lb 8.4 oz), SpO2 95 %. Physical Exam Constitutional: Appearance: He is well-developed. He is ill-appearing. HENT: Head: Normocephalic. Mouth/Throat: Mouth: Mucous membranes are moist. Eyes: Conjunctiva/sclera: Conjunctivae normal. Cardiovascular: Rate and Rhythm: Normal rate and regular rhythm. Heart sounds: Normal heart sounds. No murmur heard. No gallop. Pulmonary: Effort: Pulmonary effort is normal. No respiratory distress. Breath sounds: Normal breath sounds. No wheezing or rales. Chest: Chest wall: No tenderness. Abdominal: General: Bowel sounds are normal. There is no distension. Palpations: Abdomen is soft. Tenderness: There is no abdominal tenderness. There is no guarding or rebound. Musculoskeletal: General: No tenderness. Normal range of motion. Cervical back: Normal range of motion. No rigidity. Skin: General: Skin is warm. Coloration: Skin is not pale. Findings: No erythema or rash. Neurological: Mental Status: He is alert and oriented to person, place, and time. Sensory: No sensory deficit. Motor: No weakness. Psychiatric: Mood and Affect: Mood normal. Behavior: Behavior normal. LABS:. Recent Labs 04/25/23 0252 WBC 6.09 HGB 7.0* HCT 25.0* MCV 76.9* PLT 484* RBC 3.25* Recent Labs Lab 04/24/23 2214 04/25/23 0252 04/25/23 1102 04/25/23 1106 NA -- 133* -- 134* K -- 4.8 -- 4.6 CL -- 99 -- 100 CO2 -- 29.9 -- 31.0 AGAP -- 4.1* -- 3.0* BUN -- 21* -- 20* CR -- 1.34* -- 1.34* GLU -- 77 -- 75 CA 11.8* 11.4* -- 11.4* TP -- -- 6.3* 6.3* ALB -- -- 1.8* 1.8* TBIL -- -- 1.0 0.9 ALKP -- -- 301* 305* AST -- -- 11* 13* ALT -- -- 11* 11* No results for input(s): INR in the last 168 hours. No intake or output data in the 24 hours ending 04/25/23 1620 RADIOLOGY : REVIEWED MEDICATIONS Scheduled medications DULoxetine 60 mg Oral Daily gabapentin 300 mg Oral TID heparin (porcine) 5,000 Units Subcutaneous 2 times per day morphine CR 30 mg Oral BID nicotine 1 patch Transdermal Q24H normal saline 3-10 mL Intravenous Q8H Infusion sodium chloride 125 mL/hr at 04/25/23 1430 PRN acetaminophen, diphenhydrAMINE, HYDROcodone-acetaminophen, hydrOXYzine, morphine, naLOXone, normal saline, ondansetron, polyethylene glycol ASSESSMENT /PLAN Crystal Capone is a 33-year-old male Admitted with Leg weakness, bilateral Non Hodgkin's lymphoma ([facility]/HCC) ([facility]/HCC) PLAN: Cervical intraspinal and vertebral lesions -Patient presents with above symptoms, double vision -Imaging as above -Hematology-oncology, spinal surgery on consult, appreciate assistance -Proceed with MRI of the brain, MRI of the spine with and without contrast Stage ALANA Hodgkin's lymphoma -Chemotherapy on hold since 11/24 -Hematology-oncology on consult as above, appreciate assistance, defer to them Acute renal failure -Creatinine at outlying facility elevated at 1.37, baseline normal -Patient also with hypercalcemia -Likely prerenal but patient has evidence of fluid overload as well as decreased serum osmolality -Avoiding IV fluids due to anasarca Hypercalcemia -Calcium at outside facility elevated at 11.7, with albumin 1.8 -Calcium here was recently normal -We will recheck calcium now, ionized as well Start IVF Anemia -Patient hemoglobin low at 7.2 -Patient's hemoglobin was low at prior hospitalization, required red blood cell transfusion, hemoglobin was 10.5 prior to discharge -Denies bleeding -Monitor hemoglobin, transfuse if below 7.0 -Hematology on consult as above Systolic congestive heart failure -EF recently found to be 45 to 50% on echocardiogram 12/16/2022 -Plan was to repeat in the future, we will check now -CT of the C-spine showed likely pulmonary edema -Patient has diffuse anasarca as well as scrotal edema and dyspnea on exertion but no orthopnea andis breathing comfortably on room air CODE STATUS: FULL CODE Code status: Full Code Discussed with RN on the plan Total time spent: 51 minutes, more than 50% of time spent in coordination of care and discussing with patient about current medical condition and management BRYCE PARKS MD 4:20 PM 04/25/2023 * Huma Chapin RN - 04/25/2023 1:41 PM CDT Problem: Reduced risk for falls/injury Goal: Reduced Risk for Falls/Injury Outcome: Progressing Goal: Reduced Risk of Confusion (Acute vs Chronic) Outcome: Progressing Goal: Reduced Risk of Symptomatic Depression Outcome: Progressing Goal: Reduced Risk of Altered Elimination Outcome: Progressing Goal: Reduced Risk of Dizziness/Vertigo/Balance Outcome: Progressing Goal: Reduced Risk of Polypharmacy Outcome: Progressing Problem: Pain - Acute Goal: Achieve acceptable pain level Outcome: Progressing * Stevan Worley MD - 04/25/2023 10:29 AM CDT Progress Note Crystal Capone [place] [id number] 33-year-old male 1990 Subjective: asked to see for lytic lesion C4 and C5, hx of hodgkins. Objective: Blood pressure 119/53, pulse 94, temperature 98 ??F (36.7 ??C), temperature source Oral, resp. rate18, height 1.71 m (5' 7.32 ), weight 71 kg (156 lb 8.4 oz), SpO2 93 %. No intake or output data in the 24 hours ending 04/25/23 1029 Physical Exam: Just had ativan for MRi and he is not responding to voice CT scan C spine reviewed personally and he has lytic lesions at C4 and C5, looks like soft tissue in canal Recent Results (from the past 24 hour(s)) CALCIUM Collection Time: 04/24/23 10:14 PM Result Value Ref Range CALCIUM S/P/B 11.8 (H) 8.5 - 10.1 MG/DL CALCIUM, IONIZED Collection Time: 04/24/23 10:14 PM Result Value Ref Range CALCIUM IONIZED 1.60 (HH) 1.15 - 1.33 MMOL/L CBC W/DIFF AUTOMATED Collection Time: 04/25/23 2:52 AM Result Value Ref Range WBC 6.09 4.00 - 10.80 x10'3/uL RBC 3.25 (L) 4.50 - 6.10 x10'6/uL HGB 7.0 (L) 13.0 - 18.0 G/DL HCT 25.0 (L) 37.0 - 52.0 % MCV 76.9 (L) 78.0 - 100.0 FL MCH 21.5 (L) 27.0 - 31.0 PG MCHC 28.0 (L) 33.0 - 36.0 G/DL RDW 16.5 (H) 11.5 - 14.5 % PLT 484 (H) 150 - 350 x10'3/uL MPV 8.7 7.4 - 10.4 FL ABS. NEUTROPHILS 4.33 1.60 - 8.30 x10'3/uL ABS. LYMPHOCYTES 0.27 (L) 0.80 - 4.70 x10'3/uL ABS. MONOCYTES 1.13 0.00 - 1.50 x10'3/uL ABS. EOSINOPHILS 0.23 0.00 - 0.40 x10'3/uL ABS. BASOPHILS 0.03 0.00 - 0.20 x10'3/uL ABS. IMMATURE GRANULOCYTES 0.10 (H) 0.00 - 0.03 x10'3/uL ABS. NUCLEATED RBC'S 0.00 0.0 x10'3/uL BASIC METABOLIC PANEL Collection Time: 04/25/23 2:52 AM Result Value Ref Range SODIUM S/P/B 133 (L) 136 - 145 MMOL/L POTASSIUM S/P/B 4.8 3.5 - 5.1 MMOL/L CHLORIDE S/P/B 99 98 - 107 MMOL/L CO2 29.9 21.0 - 32.0 MMOL/L GLUCOSE 77 74 - 106 MG/DL BUN 21 (H) 7 - 18 MG/DL CREATININE S/P/B 1.34 (H) 0.70 - 1.30 MG/DL CALCIUM S/P/B 11.4 (H) 8.5 - 10.1 MG/DL ANION GAP 4.1 (L) 5.0 - 15.0 MMOL/L OSMOLALITY (CALC) 278 MOSM/KG GFR ESTIMATE 71 (L) >90 ML/MIN/1.73 M2 GFR NOTES GFR REFERENCES: RBC MORPHOLOGY Collection Time: 04/25/23 2:52 AM Result Value Ref Range RBC MORPHOLOGY ANISOCYTOSIS POCT glucose Collection Time: 04/25/23 5:54 AM Result Value Ref Range GLUCOSE POC 74 70 - 109 Current Facility-Administered Medications: acetaminophen (TYLENOL) tablet 650 mg, 650 mg, Oral, Q4H PRN, Barby Stevens III, MD diphenhydrAMINE (BENADRYL) injection 25 mg, 25 mg, Intravenous, Q6H PRN, Barby Stevens III, MD DULoxetine (CYMBALTA) capsule 60 mg, 60 mg, Oral, Daily, Barby Stevens III, MD, 60 mg at 04/25/23 0832 gabapentin (NEURONTIN) capsule 300 mg, 300 mg, Oral, TID, Barby Stevens III, MD, 300 mg at 04/25/23 0832 heparin (porcine) injection 5,000 Units, 5,000 Units, Subcutaneous, 2 times per day, 5,000 Units at1 0832 AND [COMPLETED] Moderate Risk for VTE, , , Once, Barby Stevens III, MD HYDROcodone-acetaminophen (NORCO) 5-325 MG tablet 1 tablet, 1 tablet, Oral, Q4H PRN, Barby Stevens III, MD hydrOXYzine (ATARAX) tablet 25 mg, 25 mg, Oral, TID PRN, Bryce Parks MD morphine CR (MS CONTIN) tablet 30 mg, 30 mg, Oral, BID, Barby Stevens III, MD, 30 mg at 832 morphine injection 4 mg, 4 mg, Intravenous, Q3H PRN, Bryce Parks MD naLOXone (NARCAN) injection 0.4 mg, 0.4 mg, Intravenous, PRN, Barby tSevens III, MD nicotine (NICODERM CQ) 21 MG/24HR patch 21 mg, 1 patch, Transdermal, Q24H, Barby Stevens III, MD, 21 mg at 04/25/23 0317 normal saline 0.9 % flush 3-10 mL, 3-10 mL, Intravenous, Q8H, Barby Stevens III, MD, 5 mL at 04/25/23 0545 normal saline 0.9 % flush 3-10 mL, 3-10 mL, Intravenous, PRN, Barby Stevens III, MD ondansetron (ZOFRAN) injection 4 mg, 4 mg, Intravenous, Q8H PRN, Barby Stevens III, MD, 4 mg at 04/24/23 2246 polyethylene glycol (GLYCOLAX) packet 17 g, 17 g, Oral, Daily PRN, Barby Stevens III, MD Assessment and Plan: I will check back after MRI is completed STEVAN WORLEY MD 04/25/2023 documented in this encounter H&P Notes * Barby Stevens III, MD - 04/24/2023 8:35 PM CDT [facility] Hospitalist History and Physical Date of Admission: 04/24/2023 PCP: JAY NARAYANAN DO Chief Complaint: Leg edema, scrotal edema, double vision HPI: Crystal Capone is a 33-year-old male who has a PERSONALLY REVIEWED pertinent Past Family, Past Social, and Past Surgical history, and has a past medical history of Refractory Stage ALANA Hodgkin lymphoma, 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 Ashford Recent admission for acute respiratory failure due to pneumonia, with septic shock requiring intubation and vasopressor support Systolic congestive heart failure, EF 45 to 50% on recent echocardiogram with basal anteroseptal, basal inferior, mid anteroseptal, and mid inferior hypokinesis, chronicity undetermined Mitral regurgitation Troponinemia without obstructive coronary artery disease Pancytopenia Smoker Anxiety depression Patient was admitted here 12/14/2022 to 12/21/2022 after presenting with generalized fatigue, vomiting, cough, found to be hypotensive, tachycardic, febrile, initially in respiratory failure requiring intubation briefly. He was found to be in septic shock requiring vasopressor support. The source wasthought to be a right upper lobe pneumonia. His lactic acid was highly elevated 8.7. He was pancytopenic, Hemoglobin was 6.8 on 12/16, and he required transfusion. He was seen by ID and treated with broad-spectrum antibiotics. Troponin was elevated, thought to be due to demand ischemia, and he underwent coronary angiography which did not show any obstructive coronary artery disease. Echocardiogramshowed mildly reduced left ventricular systolic function, and he was treated medically. He was in acute renal failure which resolved prior to discharge. He was seen by hematology-oncology, receiving filgrastim. His oxygenation improved, and no longer needed supplemental oxygen, and he was discharged home on oral levofloxacin. Patient's chemotherapy was stopped during treatment for this infection. Patient states he has chronic pain which is not controlled with his current narcotic pain medications. Otherwise, he has been doing fairly well. About 3 days ago, he was noted to have bilateral lowerextremity edema and he had intermittent double vision. As the days progressed, these both got worse, edema ascended to the level of his scrotum, and he now with scrotal edema. He is also having to close 1 eye at times otherwise he is seeing double vision. He has increased right lateral lower extremity pain, which is impeding his walking. He reports dyspnea on exertion but denies orthopnea. He states he had some nausea and vomiting. His symptoms persisted and worsened so he went to the ED at [facility] for further evaluation. In the ED, vitals were normal and stable. CBC showed WBC 5.7, hemoglobin 7.2, MCV 75.9, platelets 460. CMP showed sodium 136, potassium 4.6, chloride 98, bicarb 32, BUN 20, creatinine 1.37, glucose 90. AST and ALT were low, alk phos high at 311. Lactate negative. Serum osmolality low at 284. CT of the brain without contrast showed no acute intracranial process. CT of the C-spine showed mixed sclerotic/lytic lesions in C4 and C5. 5 mm left paracentral soft tissue extension into the canal at the level of C4. Consider MRI of the cervical spine with and withoutcontrast. Moderate left pleural effusion. Mild pulmonary edema. Oncology and spinal surgery were consulted, and patient was transferred here for further care. Currently he reports pain. Past Medical History: Past medical history has been reviewed, and pertinent medical history is included in the HPI. Patient has a past medical history of Hodgkin lymphoma, unspecified, unspecified site (CMS/HCC). Home Medications: Prior to Admission medications Medication Sig Start Date End Date Taking? Authorizing Provider diphenhydrAMINE (BENADRYL) 12.5 MG/5ML liquid Take 5 mLs (12.5 mg total) by mouth 4 (four) times daily as needed for Itching. 09/30/22 Yes Default History Genericprovider HYDROcodone-acetaminophen (NORCO) 5-325 MG tablet Take 1 tablet by mouth every 6 (six) hours. Yes Default History Genericprovider morphine CR (MS CONTIN) 30 MG tablet Take 1 tablet (30 mg total) by mouth 2 (two) times daily. 11/27/22 Yes Default History Genericprovider naproxen (NAPROSYN) 500 MG tablet Take 1 tablet (500 mg total) by mouth 2 (two) times daily as needed (pain). Yes Default History Genericprovider DULoxetine (CYMBALTA) 60 MG capsule Take 1 capsule (60 mg total) by mouth daily. 10/27/22 Default History Genericprovider gabapentin (NEURONTIN) 300 MG capsule Take 1 capsule (300 mg total) by mouth 3 (three) times daily.12/09/22 Default History Genericprovider naloxone (NARCAN) 4 MG/0.1ML nasal spray 1 spray by Nasal route as needed for Opioid reversal. 08/01/22 Default History Genericprovider NEUPOGEN 300 MCG/0.5ML injection INJECT 1 SYRINGE INTO THE SKIN ONCE DAILY ON DAYS 9-17 OF TREATMENT 12/07/22 Default History Genericprovider ondansetron (ZOFRAN-ODT) 8 MG disintegrating tablet Take 1 tablet (8 mg total) by mouth every 8 (eight) hours as needed for Nausea. Default History Genericprovider PREDNISONE OR Take 70 mg by mouth see administration instructions. Takes it daily from day 9-17 of treatment regimen (while on filgrastim) Default History Genericprovider procarbazine (MATULANE) 50 MG capsule Take 4 capsules by mouth see administration instructions. Take 4 capsules daily on days 1-7 of treatment regimen. Default History Genericprovider Social History: Social history has been reviewed, and pertinent social history is included in the HPI. Social History Socioeconomic History Marital status: Single Tobacco Use Smoking status: Every Day Types: Cigarettes Smokeless tobacco: Never Tobacco comments: not smoking very much lately Vaping Use Vaping Use: Never used Substance and Sexual Activity Alcohol use: Yes Comment: decreased etoh use Drug use: Yes Frequency: 1.0 times per week Types: Methamphetamines, Marijuana Comment: no meth for one week Sexual activity: Not Currently Social Determinants of Health Financial Resource Strain: Low Risk Difficulty of Paying Living Expenses: Not hard at all Food Insecurity: No Food Insecurity Worried About Running Out of Food in the Last Year: Never true Ran Out of Food in the Last Year: Never true Transportation Needs: No Transportation Needs Lack of Transportation (Medical): No Lack of Transportation (Non-Medical): No Intimate Partner Violence: Not At Risk Fear of Current or Ex-Partner: No Emotionally Abused: No Physically Abused: No Sexually Abused: No Housing Stability: Low Risk Unable to Pay for Housing in the Last Year: No Number of Places Lived in the Last Year: 1 Unstable Housing in the Last Year: No Surgical History: Surgical history has been reviewed, and pertinent surgical history is included in HPI. Past Surgical History: Procedure Laterality Date BIOPSY BONE BIOPSY/EXCISION, LYMPH NODE(S) Family History: Family history has been reviewed and is not pertinent to the history of present illness unless stated above. Family History Problem Relation Name Age of Onset Cancer Mother Cancer Sister Review of systems: Full review of systems performed, negative apart from above and what is stated in HPI. PHYSICAL EXAM: Filed Vitals: 04/24/23 2142 BP: 124/67 Pulse: 91 Temp: 97.3 ??F (36.3 ??C) SpO2: 98% Weight: 71 kg (156 lb 8.4 oz) Height: 1.676 m (5' 5.98 ) Physical Exam Vitals reviewed. Constitutional: General: He is not in acute distress. Appearance: Normal appearance. He is not ill-appearing, toxic-appearing or diaphoretic. Comments: Patient is continuously scratching different parts of his body HENT: Head: Normocephalic and atraumatic. Right Ear: External ear normal. Left Ear: External ear normal. Nose: Nose normal. No congestion or rhinorrhea. Mouth/Throat: Mouth: Mucous membranes are moist. Pharynx: No oropharyngeal exudate or posterior oropharyngeal erythema. Eyes: General: No scleral icterus. Right eye: No discharge. Left eye: No discharge. Extraocular Movements: Extraocular movements intact. Conjunctiva/sclera: Conjunctivae normal. Comments: Disconjugate gaze that is more pronounced when patient is looking to the right Cardiovascular: Rate and Rhythm: Normal rate and regular rhythm. Heart sounds: Normal heart sounds. No murmur heard. No friction rub. No gallop. Pulmonary: Effort: Pulmonary effort is normal. No respiratory distress. Breath sounds: Normal breath sounds. No stridor. No wheezing, rhonchi or rales. Chest: Chest wall: No tenderness. Abdominal: General: Abdomen is flat. Bowel sounds are normal. There is no distension. Palpations: Abdomen is soft. There is no mass. Tenderness: There is no abdominal tenderness. There is no right CVA tenderness, left CVA tenderness, guarding or rebound. Hernia: No hernia is present. Genitourinary: Comments: Scrotal edema Musculoskeletal: General: No swelling, tenderness, deformity or signs of injury. Normal range of motion. Cervical back: Normal range of motion and neck supple. No rigidity or tenderness. Right lower leg: Edema present. Left lower leg: Edema present. Comments: +1/+2 up to the thigh Lymphadenopathy: Cervical: No cervical adenopathy. Skin: General: Skin is warm and dry. Coloration: Skin is not jaundiced or pale. Findings: No bruising, erythema, lesion or rash. Neurological: General: No focal deficit present. Mental Status: He is alert and oriented to person, place, and time. Mental status is at baseline. Cranial Nerves: No cranial nerve deficit. Sensory: No sensory deficit. Motor: No weakness. Psychiatric: Mood and Affect: Mood normal. Behavior: Behavior normal. Thought Content: Thought content normal. Judgment: Judgment normal. No results for input(s): WBC, RBC, HGB, HCT, MCV, MCH, MCHC, PLT, RDW, MPV, PERNEU, PERLYM, PERMON,PEREOS, PERBASO, NEUC, LYMC, MONOC, EOSC, BASOC, DTYPE in the last 168 hours., Recent Labs Lab 04/24/23 2214 CA 11.8* , No results for input(s): PTT, INR in the last 168 hours., No results for input(s): TROP, CPK, MB in the last 168 hours., No results for input(s): LACTICACID, PROCT in the last 168 hours., No results for input(s): PH, PCO2, PO2, [id number], BICARBWB, BASEDEFICIT, BASEEXCESS in the last 168 hours. and No results for input(s): BNP in the last 168 hours. Labs and imaging performed since admission were personally reviewed by me. Radiology Results (Last 48 hours) None No results found for this visit on 04/24/23. ~~~~~~~~~~~~~~~~~~~~~~~~~~~~~~~~~~~~~~~~~~~~ Present on Admission: Leg weakness, bilateral Non Hodgkin's lymphoma (HHS/HCC) (CMS/HCC) ASSESSMENT AND PLAN: Cervical intraspinal and vertebral lesions -Patient presents with above symptoms, double vision -Imaging as above -Hematology-oncology, spinal surgery on consult, appreciate assistance -Proceed with MRI of the brain, MRI of the spine with and without contrast -Admitted to the hospital for lymphoma Stage ALANA Hodgkin's lymphoma -Chemotherapy on hold since 11/24 -Hematology-oncology on consult as above, appreciate assistance, defer to them Acute renal failure -Creatinine at outlying facility elevated at 1.37, baseline normal -Patient also with hypercalcemia -Likely prerenal but patient has evidence of fluid overload as well as decreased serum osmolality -Avoiding IV fluids due to anasarca -Recheck BMP in the morning, if remains elevated, consider nephrology consult Hypercalcemia -Calcium at outside facility elevated at 11.7, with albumin 1.8 -Calcium here was recently normal -We will recheck calcium now, ionized as well Anemia -Patient hemoglobin low at 7.2 -Patient's hemoglobin was low at prior hospitalization, required red blood cell transfusion, hemoglobin was 10.5 prior to discharge -Denies bleeding -Monitor hemoglobin, transfuse if below 7.0 -Hematology on consult as above Systolic congestive heart failure -EF recently found to be 45 to 50% on echocardiogram 12/16/2022 -Plan was to repeat in the future, we will check now -CT of the C-spine showed likely pulmonary edema -Patient has diffuse anasarca as well as scrotal edema and dyspnea on exertion but no orthopnea andis breathing comfortably on room air -Avoiding diuresis due to acute renal failure and hypercalcemia, and since patient is saturating well and breathing comfortably on room air FEN No IV fluids Monitor and replace electrolytes as necessary General diet, n.p.o. after midnight Prophylaxis Heparin subcutaneous CODE STATUS: FULL CODE All pertinent labs, imaging, and orders have been personally reviewed by me. documented in this encounter Consult Notes * Suzy Hoffman MD - 04/27/2023 11:42 AM CDTAssociated Order(s): IP CONSULT TO INFECTIOUS DISEASES Summary: [facility] Consult note [facility] CONSULT NOTE Attending Provider: Bryce Parks MD PCP: JAY NARAYANAN DO Reason for Admission: Leg weakness, bilateral Non Hodgkin's lymphoma ([facility]/HCC) ([facility]/HCC) Reason for Consult: Fever, Hx of Lymphoma ASSESSMENT/PLAN Crystal Capone is a 33-year-old male, with history of stage IV Non-hodgkin's Lymphoma, recent admission for acute respiratory failure 2/2 pna requiring intubation and septic shock, HFrEF (45-50%), anxiety and depression who presented as a transfer for LE edema, dyspnea on exertion, and difficulty walking. [facility] consulted for fever in the setting of history of NHL. Active Problems: Fever Leg weakness, bilateral Neck stiffness/pain Non-hodgkin's lymphoma stage IV Micro: 04/26 MRSA Nares: positive 04/26 Bcx x2: NGTD 04/26 Urine Cx: pending 04/27 Bcx x2: NGTD Sputum culture w/ gram stain: pending [employer] Respiratory PCR panel: pending Labs: BUN 19 Cr 1.32 -> 1.14 WBC: 5.82 Imagin/22-04/26 MRI Brain, MRI cervical, lumbar, and thoracic spines: In summary, no acute findings within the brain. Multiple osseous lesions in the cervical and thoracic spine, possible metastasis. Central foraminal narrowing. Antibiotics: PO Doxycycline 100 mg qday (04/26 - 04/27) IV Vancomycin, dosed by pharmacy (04/27 - present) IV Zosyn 3.375 g q8h (04/26 - present) PO Azithromycin 500 mg qday (04/27 - ) [facility] Plan/Recommendations: -Patient seen this am with history, labs/cultures, imaging, and antibiotics reviewed as above -Continue Vancomycin and Zosyn at this time. No indication to add anti-fungal coverage. -B-D glucan and Galactomannan ordered -Lactic acid and pro-calcitonin ordered -Blood, urine, and sputum cultures ordered -will continue to follow up on ongoing workup and tailor antibiotics as able Plan as above discussed with patient, all voiced questions/concerns addressed, voices agreement andunderstanding with plan. Thank you for the consultation and for the opportunity to assist in the care of this patient. [facility] will continue to follow. Please feel free to contact us with regards to any questions or concerns. Darius Bailey MD 04/27/2023 [facility] ATTENDING Teaching Physician - I, SUZY HOFFMAN MD, performed a History and Physical examination of the patient and discussed the management with the resident. I reviewed the Resident's note and agree with the findings and plan of care, except as I have documented. Brown cx. Will follow. Continue broad spectrum coverage for now. Suzy Hoffman HPI Crystal Capone is a 33-year-old male, with history of stage IV Non-hodgkin's Lymphoma, recent admission for acute respiratory failure 2/2 pna requiring intubation and septic shock, HFrEF (45-50%), anxiety and depression who was admitted for LE edema, SANCHEZ, and weakness. He states his symptoms are primarily in his head/neck and legs. He is having headaches on and off throughout the day, they are mostly located in the front of his head. He is also having neck pain/stiffness. This has been ongoing for a while. It is worse when his bed is moved and bounces around, certain movements, and palpation. He also notes back pain that radiates down to his legs. His legs are swollen up to his mid thigh a nd he has sciatic type pain in his legs. Lastly, he notes his right visual field is blurry only in his left eye. Review of Systems Constitutional: Negative for chills and fever. Eyes: Positive for blurred vision. Respiratory: Negative for cough and sputum production. Cardiovascular: Negative for chest pain and palpitations. Gastrointestinal: Negative for abdominal pain, constipation, diarrhea, nausea and vomiting. Genitourinary: Negative for dysuria. Medications: ??? azithromycin 500 mg Oral Daily ??? DULoxetine 60 mg Oral Daily ??? gabapentin 300 mg Oral TID ??? morphine CR 30 mg Oral BID ??? nicotine 1 patch Transdermal Q24H ??? normal saline 3-10 mL Intravenous Q8H ??? pantoprazole 40 mg Intravenous Daily ??? piperacillin-tazobactam 3.375 g Intravenous Q8H ??? vancomycin 1,250 mg Intravenous Once ??? vancomycin pharmacy to dose Intravenous See Admin Instructions ??? sodium chloride 125 mL/hr at 04/27/23 0824 PRN: acetaminophen, diphenhydrAMINE, HYDROcodone-acetaminophen, hydrOXYzine, LORazepam, morphine, naLOXone, normal saline, ondansetron, polyethylene glycol No current facility-administered medications on file prior to encounter. Current Outpatient Medications on File Prior to Encounter Medication Sig ??? diphenhydrAMINE (BENADRYL) 12.5 MG/5ML liquid Take 5 mLs (12.5 mg total) by mouth 4 (four) times daily as needed for Itching. ??? HYDROcodone-acetaminophen (NORCO) 5-325 MG tablet Take 1 tablet by mouth every 6 (six) hours. ??? morphine CR (MS CONTIN) 30 MG tablet Take 1 tablet (30 mg total) by mouth 2 (two) times daily. ??? naproxen (NAPROSYN) 500 MG tablet Take 1 tablet (500 mg total) by mouth 2 (two) times daily as needed (pain). ??? DULoxetine (CYMBALTA) 60 MG capsule Take 1 capsule (60 mg total) by mouth daily. ??? gabapentin (NEURONTIN) 300 MG capsule Take 1 capsule (300 mg total) by mouth 3 (three) times daily. ??? naloxone (NARCAN) 4 MG/0.1ML nasal spray 1 spray by Nasal route as needed for Opioid reversal. ??? NEUPOGEN 300 MCG/0.5ML injection INJECT 1 SYRINGE INTO THE SKIN ONCE DAILY ON DAYS 9-17 OF TREATMENT ??? ondansetron (ZOFRAN-ODT) 8 MG disintegrating tablet Take 1 tablet (8 mg total) by mouth every 8(eight) hours as needed for Nausea. ??? PREDNISONE OR Take 70 mg by mouth see administration instructions. Takes it daily from day 9-17of treatment regimen (while on filgrastim) ??? procarbazine (MATULANE) 50 MG capsule Take 4 capsules by mouth see administration instructions.Take 4 capsules daily on days 1-7 of treatment regimen. No Known Allergies Past Medical History: Diagnosis Date ??? Hodgkin lymphoma, unspecified, unspecified site (CMS/HCC) Social History Tobacco Use ??? Smoking status: Every Day Types: Cigarettes ??? Smokeless tobacco: Never ??? Tobacco comments: not smoking very much lately Substance Use Topics ??? Alcohol use: Yes Comment: decreased etoh use Past Surgical History: Procedure Laterality Date ??? BIOPSY BONE ??? BIOPSY/EXCISION, LYMPH NODE(S) Family History Problem Relation Name Age of Onset ??? Cancer Mother ??? Cancer Sister OBJECTIVE Vitals: Filed Vitals: 04/26/23 1950 04/27/23 0334 04/27/23 0438 04/27/23 0920 BP: 124/54 132/52 137/56 127/60 Pulse: 99 (!) 119 (!) 115 91 Resp: 16 18 Temp: 98.2 ??F (36.8 ??C) 102.2 ??F (39 ??C) 101.7 ??F (38.7 ??C) 97.9 ??F (36.6 ??C) TempSrc: Oral SpO2: 92% 92% 91% 100% Weight: Height: Physical Exam Constitutional: General: He is not in acute distress. Appearance: He is not toxic-appearing. HENT: Mouth/Throat: Mouth: Mucous membranes are moist. Pharynx: Oropharynx is clear. Comments: No ulcerations noted. Eyes: Extraocular Movements: Extraocular movements intact. Pupils: Pupils are equal, round, and reactive to light. Neck: Comments: Tenderness to palpation of the lateral and posterior neck musculature. Patient shows hesitancy flexing neck to chin, but does get it there after some time. No cervical LAD appreciated Cardiovascular: Rate and Rhythm: Normal rate and regular rhythm. Pulmonary: Effort: Pulmonary effort is normal. Breath sounds: Normal breath sounds. Abdominal: General: Abdomen is flat. Palpations: Abdomen is soft. Musculoskeletal: Right lower leg: Edema present. Left lower leg: Edema present. Comments: Bilateral non-pitting edema to above the knee bilaterally. Neurological: Mental Status: He is alert. Intake/Output Summary (Last 24 hours) at 04/27/2023 1143 Last data filed at 04/27/2023 0352 Gross per 24 hour Intake 404 ml Output -- Net 404 ml Labs: Recent Labs Lab 04/25/23193604/26/2331304/26/23 2253 WBC 5.32 5.08 5.82 RBC 3.31* 2.94* 3.36* HGB 7.2* 6.4* 7.6* HCT 24.7* 22.0* 25.6* MCV 74.6* 74.8* 76.2* MCH 21.8* 21.8* 22.6* MCHC 29.1* 29.1* 29.7* PLT 450* 452* PLATELET CLUMPS PRESENT. ESTIMATE FROM SLIDE APPEARS TO BE BETWEEN 350,000 AND 500,000 RDW 16.3* 16.5* 17.3* NEUC 4.13 3.70 4.79 LYMC 0.19* 0.19* 0.09* MONOC 0.76 0.96 0.75 EOSC 0.15 0.13 0.08 BASOC 0.01 0.02 0.02 Recent Labs Lab 04/25/23 11004/25/23 11004/25/23193604/26/23313 NA -- 134* 136 134* K -- 4.6 4.2 4.1 CL -- 100 100 101 CO2 -- 31.0 30.3 31.0 BUN -- 20* 20* 19* CR -- 1.34* 1.32* 1.14 GLU -- 75 115* 93 CA -- 11.4* 11.0* 10.3* TP 6.3* 6.3* 6.3* 6.0* ALB 1.8* 1.8* 1.7* 1.7* TBIL 1.0 0.9 0.9 0.7 ALKP 301* 305* 290* 322* AST 11* 13* 14* 12* ALT 11* 11* 12* 10* PHOS 4.5 -- -- -- Recent Imaging: Radiology Results (Last 48 hours) 04/26/232221 MRI BRAIN W CON Final result Impression: IMPRESSION: 1. No abnormal intracranial enhancement is seen. 2. No acute intracranial abnormalities appreciated. 3. Decreased T1 signal diffusely in the bone marrow of the calvarium may be normal for age or less likely may represent a diffuse marrow replacing process. Please correlate clinically. Referred By: PROVIDER NON-STAFF Interpreted By: Matilda Chew MD, 04/27/2023 12:38 AM 04/26/232221 MRI THOR SPINE WWO CON Final result Impression: IMPRESSION: 1. Numerous osseous metastasis scattered throughout the thoracic spine as detailed above with no acute pathological compression fracture identified. Preservation of vertebral heights in the thoracic spine. 2. No significant disc herniation, spinal canal or foraminal stenosis seen. 3. Please refer to the CT chest, abdomen, and pelvis with contrast exam of 04/26/2023 regarding the extraspinal findings. 4. Multiple metastatic lesions in the partially included bilateral rib cage. Referred By: PROVIDER NON-STAFF Interpreted By: Matilda Chew MD, 04/27/2023 12:39 AM 04/26/232203 MRI LUMB SPINE WWO CON Final result Impression: IMPRESSION: 1. Numerous osseous metastasis in the lumbar spine and included lower thoracic and sacral spine with small metastatic lesions also seen in a few posterior elements in the lumbar spine. 2. No pathological fracture. 3. Suspect ventral epidural extension of tumor into the ventral spinal canal at L4 level, likely expansion of L4 vertebral body osseous metastasis into the ventral spinal canal. Central canal stenosis at L4 level. 4. Nonenhancing CSF prominence or less likely nonenhancing epidural prominence of soft tissue in the posterior spinal canal from inferior L1 to upper L3 level is likely from an arachnoid cyst, with posterior epidural neoplasm less likely. 5. Exam is limited by motion related artifact, which may lower the sensitivity of the exam. Please see the CT chest, abdomen and pelvis with contrast exam of 04/26/2023 for the extraspinal findings. Referred By: PROVIDER NON-STAFF Interpreted By: Matilda Chew MD, 04/27/2023 12:39 AM 04/26/[address] CHEST+ABD+PEL W CON Final result Impression: IMPRESSION: 1. Progressive multifocal adenopathy above and below the diaphragm, likely reflecting Hodgkin's lymphoma. Predominant sites of adenopathy include bilateral inguinal regions, upper retroperitoneum near the level of the renal vessels, and left supraclavicular fossa. Although somewhat ill-defined and difficult to differentiate from the scalene muscles, there may be adenopathy involving the left brachial plexus and extending into the first left rib interspace. In addition, numerous hypoenhancing splenic lesions have increased, also presumably related to lymphoma. 2. Previously in part obscured by pneumonia, there is better demonstration of a roughly 5 cm right upper lobe lung mass. It is unclear whether whether this may reflect extra lymphatic involvement of advanced stage Hodgkin disease, versus a second lung primary. 3. Tree-in-bud opacity in the central aspect of the left lung probably represents superimposed infection/aspiration. However, lymphangitic carcinomatosis is a less likely possibility. Central involvement (rather than typical peripheral and intralobular distribution of perilymphatic nodularity) favors infection. 4. Slight interval increase in multifocal osseous metastatic disease. Of note, there are lytic lesions in both weightbearing femoral necks.. 5. Indeterminate subtle area of right superior renal cortical hypoenhancement. This could potentially reflect a small microvascular infarct or focus of localized pyelonephritis. Lymphomatous involvement of the kidney is possible but less likely. Referred By: PROVIDER NON-STAFF Interpreted By: Johnny Galaviz MD, 04/26/2023 4:20 PM 04/25/23 1246 MRI CERV SPINE WO CON Final result Impression: IMPRESSION: 1. Prominent anterior epidural soft tissue extending from C3 to C5 contributing to moderate spinal canal stenosis, as described above. Findings most likely represent extraosseous extension of malignancy into the anterior epidural space. Some limitation in detail given noncontrast technique. No adjacent cord signal abnormality. 2. Mild height loss of the C4 and C5 vertebral bodies with associated T2 hyperintense signal within body marrow could represent marrow replacing lesions and associated mild pathologic compression deformity. 3. Partially visualized heterogeneous marrow signal throughout the thoracic and lumbar spine. MR thoracic and lumbar spine with contrast could be beneficial for further characterization. 4. Persistent rounded opacification involving the right upper lobe when compared with the prior chest exam from 12/15/2022. Dedicated repeat CT chest exam with contrast could be beneficial for further characterization of the rounded consolidative opacification, given the patient's history of malignancy 5. Small left pleural effusion. Ordered By: BARBY STEVENS III Interpreted By: Jewel Shaver MD, 04/26/2023 8:14 AM 04/25/23 1234 MRI BRAIN WO CON Final result Impression: IMPRESSION: 1. No acute intracranial abnormality allowing for mild to moderate motion and rotation of the exam. 2. Indeterminate prominent anterior epidural soft tissue thickening at the C4 level within the cervical spinal canal. Attention on MRI cervical spine exam recommended for further characterization. 3. Diffuse T1 hypointense marrow signal that may be related to marrow replacement from underlying malignancy. Referred By: PROVIDER NON-STAFF Interpreted By: Jewel Shaver MD, 04/25/2023 7:53 PM * Roseannaroxanne Dumont, MANAGER EQUITY - 04/27/2023 6:48 AM CDT Consults Attending Provider: Bryce Parks MD PCP: DO Crystal VERA Truman Capone is an 33-year-old male. Reason for Admission: Leg weakness, bilateral Non Hodgkin's lymphoma (HHS/HCC) (CMS/HCC) History of Present Illness: 33 year old male patient with a known history of stage IV Hodkins lymphoma who was diagnosed in [facility] 2021. He has been following as an outpatient with [facility] medical oncology and completed 2 cycles ofABVD with mixed response. He was then switched to BEACOPP and completed almost 3 cycles when he then developed neutropenia in November of this year and chemotherapy has been on hold. He was subsequently hospitalized in December of this year for ARF, pneumonia,sepsis and required intubation. [facility] with a 3 day hx of increasing bilateral lower extremity edema that had risen to scrotal level, increased lower extremity weakness, and intermittent double vision. MRI of ce rvical spine was completed and reveal new lytic lesion C3-C4 prominent anterior epidural soft tissue with moderate spinal canal stenosis, mild left neural foraminal stenosis, C4-5 prominent epidural soft tissue with moderate spinal canal stenosis and mild to moderate left neural foraminal stenosis.MRI of brain demonstrated no acute intracranial abnormailities. Radiation Oncology has been consulted for recommendations on cervical lesions. Ortho spine onboard and no surgical intervention plannedat this time. Since consultation MRI of thoracic and lumbar spine has been completed and noted numerous lytic lesions throughout spine. SUBJECTIVE: Patient is awake, alert and oriented upon evaluation. Patient confirms the above HPI. He states today that most of his pain is in his bilateral lower back and at times radiates down his right leg. Herates his lower back pain a 4. He also has neck pain that worsens with some movements. He rates hisneck pain a 3-4. He states usually his pain medication takes his pain level to 0-1. At home he is ta mel MS Contin 30mg twice daily and hydrocodone 5/325mg about 1 tab daily. He denies any numbness or tingling, weakness, or decreased ROM to bilateral upper extremities. 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 He denies numbness or tingling in bilateral lower extremities. He denies loss of bowel or bladder control. He does report he had a fall in the night in the bathroom with the nurse while ambulating with the walker and his legs gave out , he denies injury. Patient denies previous radiation therapy Patient denies history of connective tissue disorder Patient denies any battery operated implanted device. Does have infusa -port right chest. Workup so far: 04/25/2023- MRI of cervical spine revealing prominant anterior epideral soft tissue compressing theventral thecal sac, moderate spinal canal stenosis, mild left nerual foraminal stenosis, no right neural foraminal stenosis, 4.5cm RUL consolidation . 04/25/2023: MRI of brain demonstrates no acute intracranial abnormality allowing fo rmidl to moderate motion and rotation of exam, indeterminate prominent anterior epidural soft tissue thickening at the level of C4 within the cervical spinal canal , diffuse T1 hypointense marrow signal that may be related to marrow replacement from underlying malignancy 04/27/2023: MRI of thoracic spine numerous osseous metastasis are seen in the cervical, thoracic and included lumbar spine. Most extensive T1, T4, T5, and T11 without pathologic fracture, no disc bulge, disc herniation, spinal canal or foraminal stenosis in the thoracic spine, numerous metastatic rib lesion are also noted in the included bilateral rib cage. 04/27/2024: MRI of lumbar spine with numerous osseous metastasis with most extensive in the L4 withmild marrow expansion of the L4 and L3, no compression fx or pathological fracture identified. There is epidural extension of tumor into the ventral spinal canal at L4 with central canal stenosis at L4 level, non enhancing CSF prominence or less likely nonenhancing epidural prominence of soft tissue in the posterior spinal canal from inferior L1 to upper L3 likely from an arachnoid cyst with epidural neoplasm less likely. ONCOLOGIC HISTORY: -08/2021: Noted to have lymphadenopathy in the neck, axilla, left inguinal regions -11/2021: Admitted to hospital for abdominal pain and CT revealed extensive adenopathy including the portal region and bilateral common and external iliac chains in the left inguinal area. -11/2021-PET revealed hypermetabolic lymphadenapathy above diaphragm, bone marrow bx confirmed involvmenent -completed 2 cycles of ABVD without difficulty, restaging showed mixed response -treatment was switcted to BEACOPP completed almost 3 cycles until Novemberefore developing neutropenic fever and prednisone had to be stopped. Chemo on hold since 11/2022. Past Medical History: Diagnosis Date Hodgkin lymphoma, unspecified, unspecified site (CMS/HCC) Allergies: No Known Allergies Social History Tobacco Use Smoking status: Every Day Types: Cigarettes Smokeless tobacco: Never Tobacco comments: not smoking very much lately Substance Use Topics Alcohol use: Yes Comment: decreased etoh use Past Surgical History: Procedure Laterality Date BIOPSY BONE BIOPSY/EXCISION, LYMPH NODE(S) Family History Problem Relation Name Age of Onset Cancer Mother Cancer Sister No current facility-administered medications on file prior to encounter. Current Outpatient Medications on File Prior to Encounter Medication Sig diphenhydrAMINE (BENADRYL) 12.5 MG/5ML liquid Take 5 mLs (12.5 mg total) by mouth 4 (four) times daily as needed for Itching. HYDROcodone-acetaminophen (NORCO) 5-325 MG tablet Take 1 tablet by mouth every 6 (six) hours. morphine CR (MS CONTIN) 30 MG tablet Take 1 tablet (30 mg total) by mouth 2 (two) times daily. naproxen (NAPROSYN) 500 MG tablet Take 1 tablet (500 mg total) by mouth 2 (two) times daily as needed (pain). DULoxetine (CYMBALTA) 60 MG capsule Take 1 capsule (60 mg total) by mouth daily. gabapentin (NEURONTIN) 300 MG capsule Take 1 capsule (300 mg total) by mouth 3 (three) times daily. naloxone (NARCAN) 4 MG/0.1ML nasal spray 1 spray by Nasal route as needed for Opioid reversal. NEUPOGEN 300 MCG/0.5ML injection INJECT 1 SYRINGE INTO THE SKIN ONCE DAILY ON DAYS 9-17 OF TREATMENT ondansetron (ZOFRAN-ODT) 8 MG disintegrating tablet Take 1 tablet (8 mg total) by mouth every 8 (eight) hours as needed for Nausea. PREDNISONE OR Take 70 mg by mouth see administration instructions. Takes it daily from day 9-17 of treatment regimen (while on filgrastim) procarbazine (MATULANE) 50 MG capsule Take 4 capsules by mouth see administration instructions. Take 4 capsules daily on days 1-7 of treatment regimen. Blood pressure 137/56, pulse (!) 115, temperature 101.7 ??F (38.7 ??C), resp. rate 18, height 5' 7.32 (1.71 m), weight 156 lb 8.4 oz (71 kg), SpO2 91 %. Review of Systems Constitutional: Positive for fever. HENT: Neck pain with ROM Eyes: Negative. Respiratory: Positive for shortness of breath. With activity, denies SOB at rest Cardiovascular: Positive for leg swelling. Gastrointestinal: Negative. Genitourinary: Negative. Musculoskeletal: Positive for back pain, falls and neck pain. Rates bilateral lower back pain a 4, and neck pain 3-4 Skin: Negative. Neurological: Positive for weakness. Bilateral lower extremity weakness with ambulation Endo/Heme/Allergies: Negative. Psychiatric/Behavioral: Negative. Physical Exam Constitutional: Appearance: Normal appearance. HENT: Head: Normocephalic. Eyes: Extraocular Movements: Extraocular movements intact. Pupils: Pupils are equal, round, and reactive to light. Cardiovascular: Rate and Rhythm: Normal rate. Pulmonary: Effort: Pulmonary effort is normal. Breath sounds: Normal breath sounds. Abdominal: General: Abdomen is flat. Bowel sounds are normal. Palpations: Abdomen is soft. Musculoskeletal: General: Normal range of motion. Cervical back: Normal range of motion and neck supple. Right lower leg: Edema present. Left lower leg: Edema present. Comments: 1+ non pitting. Skin: General: Skin is warm and dry. Neurological: General: No focal deficit present. Mental Status: He is alert and oriented to person, place, and time. Comments: 5/5 strength bilateral upper and lower extremities. Able to perform bilateral leg raise without difficulty. Psychiatric: Mood and Affect: Mood normal. Behavior: Behavior normal. Assessment: Stage IV Hodgkin Lymphoma with new C3-C5 lytic lesion: May be able to offer palliative radiation therapy to lytic lesions. I discussed with patient that this would be for palliative purposes only and not curative. We briefly discussed common side-effectsof radiation therapy including fatigue, skin irritation, pain flare, and injury to bone. Patient would likely receive 5- 10 daily treatments. He would not require hospitalization to complete treatments if he was otherwise stable for discharge. However, patient does live a distance away and he would need transportation to and from the cancer center if he is treated here. We discussed other centers that may be closer for him as an option as well. He does state he may have transportation to bring him to and from [place] and he would prefer this. Bilateral lumbar back and cervical neck pain: Patient states most of his pain is in lower back. We may be able to offer palliative radiation to lytic lesions to help with pain management. He states is pain is managed with his current pain regimen. I discussed with ortho spine Dr. Shaver and they have no surgical interventions plan for neck or lumbar spine. Plan: -My attending Dr. Frausto will see patient today and review with patient any areas we may beable to treat palliative. If we move forward with treatment and patient agrees to being treated here locally we will likely bring him down to our department today or tomorrow for treatment planning scan. -Supportive care, pain management, and any systemic treatment options per medical oncology team. -We will update plan once final and will continue to follow patient Thank you for consulting [facility] Radiation Oncology. Please call our department with anyquestions [phone] Roseanna Dumont NP 04/27/2023 Cosigned by Roge Frausto MD at 04/27/2023 11:40 AM CDT Associated attestation - Roge Frausto MD - 04/27/2023 11:40 AM CDT I, Roge Frausto MD, participated in the care of this patient today and discussedthe plan of care with GUS Foley, who shared in this visit. I have reviewed the GUS's documentation and agree with the findings except as I have documented. I personally spent 65 minutes, caring for this patient. We will plan for palliative radiation therapy to the cervical spine and lumbar spine. CT simulationtoday. Consent reviewed and signed. Roge Frausto MD * Alan Wellington MD - 04/26/2023 8:56 AM CDTAssociated Order(s): Inpatient Consult to Orthopedic Surgery Ortho Resident Consult Note CC: metastatic disease HPI: Crystal Capone is a 33-year-old male who was admitted to [facility] and is now consulted with multiple metastatic lesions in the setting on known hodgkins lymphoma. Oncology managing lymphoma and chemotherapy. Orthopedics was consulted for evaluation of metastatic vertebral lesions. Patient denies any back pain, numbness, or tingling in any extremity at this time. Denies any fevers, chills, SOB, or chest pain. He was previously being treated with chemotherapy which is now on hold since November. ROS: 12 point review of systems negative except for that stated above in HPI PMH: Past Medical History: Diagnosis Date Hodgkin lymphoma, unspecified, unspecified site (CMS/HCC) PSH: Past Surgical History: Procedure Laterality Date BIOPSY BONE BIOPSY/EXCISION, LYMPH NODE(S) SH: Social History Tobacco Use Smoking status: Every Day Types: Cigarettes Smokeless tobacco: Never Tobacco comments: not smoking very much lately Vaping Use Vaping Use: Never used Substance Use Topics Alcohol use: Yes Comment: decreased etoh use Drug use: Yes Frequency: 1.0 times per week Types: Methamphetamines, Marijuana Comment: no meth for one week FMH: non-contributory Physical Exam: GEN: NAD HEENT: Normocephalic HEART: RRR RESP: Airway patent. NEURO: AOX3 PSYCH: Appropriate mood and affect MSK: -Spine; Tender to palpation over thoracolumbar spine, non tender to remainder of thoracic and cervical spine. No step-offs appreciable. Perianal sensation intact, rectal exam not indicated at this time. Clonus and sandy negative. -BUE: Skin intact. Nontender from clavicle to fingers. Compartments soft and compressible Painless ROM of shoulder, elbow, wrist, and fingers. Motor intact in the axillary, AIN, PIN, and ulnar nerves. SILT in the axillary, median, radial, and ulnar nerves. Radial pulse 2+. 3/5 biceps, triceps, andBR reflex. Sandy negative -BLE: Skin intact, swelling present to the level of the knee. Compartments compressible. Nontender to palpation from the hip to the toes. Painless ROM of the hip, knee, ankle, and toes. Actively firing gastroc, FHL, tib ant, and EHL. SILT in the DP,SP,SAPH,ISSAC,TIB nerves. 3/5 patellar reflex. Babinksi and clonus negative. IMAGING: Imaging outlined below was independently reviewed. CT demonstrates lytic lesions within both iliac wings, sacral body, C3, C4, C6, T7, spinous processof T10, L2, L3, as well as an age indeterminate pathologic compression fracture of L4 ASSESSMENT/PLAN: Crystal Capone is a 33-year-old male with multiple lytic lesions throughout the sacrum and vertebral bodies as well an age indeterminate L4 compression fracture. He remains neuro intact with no evidence of myelopathy. Definitive plan pending MRI of the cervical, thoracic, and lumbar spine. Admitted to hospitalist [facility] Ortho consulted (Dr. Worley) Pain: per primary Diet: okay for general diet from ortho standpoint Activity: WBAT Imaging: MRI of the C/T/L spine pending Medical: per primary Dispo: No plans for acute orthopedic intervention. Definitive plan pending Discussed with Dr. Worley who agrees with above assessment and plan. Alan Wellington MD Inpatient Consult to Orthopedic Surgery Consult performed by: Alan Wellington MD Consult ordered by: Bryce Parks MD Cosigned by Stevan Worley MD at 04/26/2023 2:07 PM CDT * Dhiraj Hansen MD - 04/25/2023 11:38 AM CDT [facility] Hematology/oncology Consult Consults Attending Provider: Bryce Pakrs MD PCP: JAY NARAYANAN DO Crystal Capone is an 33-year-old male. Reason for Admission: Leg weakness, bilateral Non Hodgkin's lymphoma (HHS/HCC) ([facility]/HCC) HPI: Crystal Capone is a 33-year-old M with PMH Stage IV hodgkin's lymphoma (08/2021), recent admit 12/14-12/21/22 for acute respiratory failure 2/2 pneumonia requiring intubation, septic shock on pressor support, HFrEF 45-50%, current smoker, anxiety, depression, transferred from [facility] to [facility] for 3d LE edema, SANCHEZ, and difficulty walking. In the ER his vitals were stable, afebrile, wbc 5.7, hemoglobin 7.2, mcv 75, platelets 460, Na 136, K 4.6, cr 1.37, alk phos 311, albumin 1.8, calcium 11.7, normal lactate. CT brain negative for acute pathology. CT c-spine showed mixed sclerotic / lytic lesions C4 and C5 with 5mm L paracentral soft tissue extension into the canal. Oncology was consulted for new lytic lesions and hypercalcemia Oncology hx: - Noted LAD in neck, axilla, L inguinal 08/2021. Admitted 11/14/21 for abdominal pain and CT showed extensive adenopathy including portal region, b/l common and external iliac pete chains in L inguinal area. PET 11/2021 hypermetabolic LAD above diaphragm. - bone marrow bx confirmed involvement - MUGA 02/2022 EF 68%. - Completed 2 cycles ABVD without issue. Restaging showed mixed response and he was switched to BEACOPP. Completed 2 cycles and most of cycle 3 BEACOPP (up to day 8 December 02, 2022) but had to stop prednisone due to neutropenic fever - Significant family hx of lymphoma in mom, maternal grandmother, sister. Subjective: Patient was initially difficult to arouse by voice but awoke to painful stimulation. Hewas recently given ativan for his MRI but was sent back upstairs due to a trauma case. Patient states he has been feeling weaker. He denies, LAD, night sweats, n/v, abdominal pain, fevers, chills, recent infections, bleeding, fatigue. He has chronic numbness of his fingertips that is unchanged. He has no pain in his back but does have some pain in his neck. He also notes his mouth has been very dry. +constipation, last BM 2-3 days ago. +LE swelling b/l. He does not feel his abdomen is swollen or any SOB Review of Systems: Negative unless indicated above Past Medical History Past Medical History: Diagnosis Date ??? Hodgkin lymphoma, unspecified, unspecified site (CMS/HCC) Past Surgical History: Procedure Laterality Date ??? BIOPSY BONE ??? BIOPSY/EXCISION, LYMPH NODE(S) Allergies: No Known Allergies Social History Social History Tobacco Use ??? Smoking status: Every Day Types: Cigarettes ??? Smokeless tobacco: Never ??? Tobacco comments: not smoking very much lately Substance Use Topics ??? Alcohol use: Yes Comment: decreased etoh use Family History Family History Problem Relation Name Age of Onset ??? Cancer Mother ??? Cancer Sister Medications No current facility-administered medications on file prior to encounter. Current Outpatient Medications on File Prior to Encounter Medication Sig ??? diphenhydrAMINE (BENADRYL) 12.5 MG/5ML liquid Take 5 mLs (12.5 mg total) by mouth 4 (four) times daily as needed for Itching. ??? HYDROcodone-acetaminophen (NORCO) 5-325 MG tablet Take 1 tablet by mouth every 6 (six) hours. ??? morphine CR (MS CONTIN) 30 MG tablet Take 1 tablet (30 mg total) by mouth 2 (two) times daily. ??? naproxen (NAPROSYN) 500 MG tablet Take 1 tablet (500 mg total) by mouth 2 (two) times daily as needed (pain). ??? DULoxetine (CYMBALTA) 60 MG capsule Take 1 capsule (60 mg total) by mouth daily. ??? gabapentin (NEURONTIN) 300 MG capsule Take 1 capsule (300 mg total) by mouth 3 (three) times daily. ??? naloxone (NARCAN) 4 MG/0.1ML nasal spray 1 spray by Nasal route as needed for Opioid reversal. ??? NEUPOGEN 300 MCG/0.5ML injection INJECT 1 SYRINGE INTO THE SKIN ONCE DAILY ON DAYS 9-17 OF TREATMENT ??? ondansetron (ZOFRAN-ODT) 8 MG disintegrating tablet Take 1 tablet (8 mg total) by mouth every 8(eight) hours as needed for Nausea. ??? PREDNISONE OR Take 70 mg by mouth see administration instructions. Takes it daily from day 9-17of treatment regimen (while on filgrastim) ??? procarbazine (MATULANE) 50 MG capsule Take 4 capsules by mouth see administration instructions.Take 4 capsules daily on days 1-7 of treatment regimen. Current Facility-Administered Medications: ??? acetaminophen (TYLENOL) tablet 650 mg, 650 mg, Oral, Q4H PRN, Barby Stevens III, MD ??? diphenhydrAMINE (BENADRYL) injection 25 mg, 25 mg, Intravenous, Q6H PRN, Barby Stevens III, MD ??? DULoxetine (CYMBALTA) capsule 60 mg, 60 mg, Oral, Daily, Barby Stevens III, MD, 60 mg at 04/25/23 0832 ??? gabapentin (NEURONTIN) capsule 300 mg, 300 mg, Oral, TID, Barby Stevens III, MD, 300 mg at 04/25/23 0832 ??? heparin (porcine) injection 5,000 Units, 5,000 Units, Subcutaneous, 2 times per day, 5,000 Units at 04/25/23 0832 AND [COMPLETED] Moderate Risk for VTE, , , Once, Barby Stevens III, MD ??? HYDROcodone-acetaminophen (NORCO) 5-325 MG tablet 1 tablet, 1 tablet, Oral, Q4H PRN, Barby Stevens III, MD ??? hydrOXYzine (ATARAX) tablet 25 mg, 25 mg, Oral, TID PRN, Bryce Parks MD ??? morphine CR (MS CONTIN) tablet 30 mg, 30 mg, Oral, BID, Barby Stevens III, MD, 30 mg at 04/25/23 0832 ??? morphine injection 4 mg, 4 mg, Intravenous, Q3H PRN, Bryce Parks MD ??? naLOXone (NARCAN) injection 0.4 mg, 0.4 mg, Intravenous, PRN, Barby Stevens III, MD ??? nicotine (NICODERM CQ) 21 MG/24HR patch 21 mg, 1 patch, Transdermal, Q24H, Barby Stevens III, MD, 21 mg at 04/25/23 0317 ??? normal saline 0.9 % flush 3-10 mL, 3-10 mL, Intravenous, Q8H, Barby Stevens III, MD, 5 mL at1 0545 ??? normal saline 0.9 % flush 3-10 mL, 3-10 mL, Intravenous, PRN, Barby Stevens III, MD ??? ondansetron (ZOFRAN) injection 4 mg, 4 mg, Intravenous, Q8H PRN, Barby Stevens III, MD, 4 mgat 04/24/23 2246 ??? polyethylene glycol (GLYCOLAX) packet 17 g, 17 g, Oral, Daily PRN, Barby Stevens III, MD Principal Problem: Leg weakness, bilateral SNOMED CT(R): PARAPARESIS Active Problems: Non Hodgkin's lymphoma (HHS/HCC) (CMS/HCC) SNOMED CT(R): NON-HODGKIN'S LYMPHOMA (CLINICAL) VITAL SIGNS Blood pressure 119/53, pulse 94, temperature 98 ??F (36.7 ??C), temperature source Oral, resp. rate18, height 1.71 m (5' 7.32 ), weight 71 kg (156 lb 8.4 oz), SpO2 93 %. Physical Exam Vitals: 04/25/23 1019 BP: 119/53 Pulse: 94 Resp: 18 Temp: 98 ??F (36.7 ??C) SpO2: General Appearance: : Well Developed Skin: : Normal Color Head: : Normocephalic Eyes: : Conjunctiva Clear ENT: : Oral mucosa dry, visible caries Neck: : Non-Tender, no cervical LAD Chest and Respiratory: : Breath Sounds Equal: Lungs Clear-Auscultation Heart: : No Murmur: Regular Rate/Rythm Abdominal: No Organomegaly Non-Tender Normal Bowel Sounds Soft. No fluid wave Vascular: : Normal Capillary Refill. Extremities: 1+ LE edema to above knee Musculoskeletal: : Good Range of Motion Neurologic: : Sleepy and initially difficult to arouse but awakens to painful stimuli and able to answer questions: CN 2-12 Intact: No Gross Motor Deficits Mental Status: : Normal Affect Back: : Non Tender Peripheral Pulses: Present Dorsalis Pedis - L, Present Dorsalis Pedis - R Labs Results for orders placed or performed during the hospital encounter of 04/24/23 CALCIUM Result Value Ref Range CALCIUM S/P/B 11.8 (H) 8.5 - 10.1 MG/DL CALCIUM, IONIZED Result Value Ref Range CALCIUM IONIZED 1.60 (HH) 1.15 - 1.33 MMOL/L CBC W/DIFF AUTOMATED Result Value Ref Range WBC 6.09 4.00 - 10.80 x10'3/uL RBC 3.25 (L) 4.50 - 6.10 x10'6/uL HGB 7.0 (L) 13.0 - 18.0 G/DL HCT 25.0 (L) 37.0 - 52.0 % MCV 76.9 (L) 78.0 - 100.0 FL MCH 21.5 (L) 27.0 - 31.0 PG MCHC 28.0 (L) 33.0 - 36.0 G/DL RDW 16.5 (H) 11.5 - 14.5 % PLT 484 (H) 150 - 350 x10'3/uL MPV 8.7 7.4 - 10.4 FL ABS. NEUTROPHILS 4.33 1.60 - 8.30 x10'3/uL ABS. LYMPHOCYTES 0.27 (L) 0.80 - 4.70 x10'3/uL ABS. MONOCYTES 1.13 0.00 - 1.50 x10'3/uL ABS. EOSINOPHILS 0.23 0.00 - 0.40 x10'3/uL ABS. BASOPHILS 0.03 0.00 - 0.20 x10'3/uL ABS. IMMATURE GRANULOCYTES 0.10 (H) 0.00 - 0.03 x10'3/uL ABS. NUCLEATED RBC'S 0.00 0.0 x10'3/uL BASIC METABOLIC PANEL Result Value Ref Range SODIUM S/P/B 133 (L) 136 - 145 MMOL/L POTASSIUM S/P/B 4.8 3.5 - 5.1 MMOL/L CHLORIDE S/P/B 99 98 - 107 MMOL/L CO2 29.9 21.0 - 32.0 MMOL/L GLUCOSE 77 74 - 106 MG/DL BUN 21 (H) 7 - 18 MG/DL CREATININE S/P/B 1.34 (H) 0.70 - 1.30 MG/DL CALCIUM S/P/B 11.4 (H) 8.5 - 10.1 MG/DL ANION GAP 4.1 (L) 5.0 - 15.0 MMOL/L OSMOLALITY (CALC) 278 MOSM/KG GFR ESTIMATE 71 (L) >90 ML/MIN/1.73 M2 GFR NOTES GFR REFERENCES: RBC MORPHOLOGY Result Value Ref Range RBC MORPHOLOGY ANISOCYTOSIS RETICULOCYTE CT, AUTO Result Value Ref Range % RETICULOCYTE COUNT 2.3 0.7 - 2.3 % ABSOLUTE RETICULOCYTE 0.07 0.03 - 0.11 x10'6/uL IMMATURE RETIC FRACTION 22.2 (H) 2.3 - 13.4 % RETIC HGB 19.8 (L) 28.0 - 35.0 PG POCT glucose Result Value Ref Range GLUCOSE POC 74 70 - 109 Imaging No results found. Assessment and Plan:: Crystal Capone is a 33-year-old M with H Stage IV hodgkin's lymphoma (08/2021), recent admit 12/14-12/21/22 for acute respiratory failure 2/2 pneumonia requiring intubation, septic shock on pressor support, HFrEF 45-50%, current smoker, anxiety, depression, transferred from [facility] to [facility] for 3d LE edema, SANCHEZ, and difficulty walking. Workup thus far reveals hypercalcemia that could befrom malignant etiology and new c4 and c5 lytic lesions with 5mm L paracentral soft tissue extension into the canal. He has not had chemotherapy since November 2022 due to neutropenic fever. Will await imaging and treat hypercalcemia. Stage IV Hodgkin Lymphoma New C4 + C5 lytic lesion - Oncologist: Dr. Ashford - Completed 2 cycles ABVD without issue. Restaging showed mixed response and he was switched to BEACOPP. Completed 2 cycles and most of cycle 3 BEACOPP (up to day 8 December 02, 2022) but had to stop prednisone due to neutropenic fever - LDH normal 124, ESR 43, retic 2.3, ferritin 1311, hemoglobin 7.0 - Ortho spine consulted - MRI brain and Cspine pending. MRI T + L spine ordered - If hemoglobin <7.0 transfuse leukoreduced, irradiated, CMV negative blood products - When Cr improves can consider CT chest / abdomen / pelvis w/con for re- staging. May also need to consider bone marrow biopsy (patient had bone marrow involvement previously ; if cytopenias worsen) Hypercalcemia of Malignancy : - Calcium 11.7 corrected for albumin to ~14 - Would continue IVF --repeat cmp this morning showed cr remains 1.34 and Ca 11.4 with albumin 1.8.Patient appears dry on exam and has a component of dehydration - NS@125cc/h for 12 h (1.5L) ordered, will recheck CMP at 1900 to see if there is any improvement - If calcium does not improve will consider zometa tonight after adequate hydration - Would also consider multiple myeloma with anemia, hypercalcemia, lytic lesion ,and LEON--will sendSPEP, UPEP, FLC, immunoglobulins -also check PTH Microcyctic anemia - Hgb 7.0 MCV 76.9 - Iron panel- iron 16, ferritin 1311, %10 - will order soluble transferrin receptor -GI consult if needed HFrEF 45-50% (12/16/22) - Repeat ECHO ordered Code Status: Full Code Plan discussed in detail. Answered all questions. Thank you for consulting [facility] Hematology/oncology service. We will follow. Discussed with Dr. Tyrone Francis DO 04/25/2023 I have seen and examined the patient on 04/25/23 and agree with the assessment and plan as outlinedabove. Eric Nguyen MD documented in this encounter Nursing Notes * Blanquita Galeano, RN - 04/24/2023 7:14 PM CDTSummary: CONNECT RN TO RN REPORT [facility] Nursing Report Transferring Hospital: [facility] Transferring RN: Radha Keen MD: DR NHAN Menendez MD: DR OBED MALDONADO Diagnosis: WEAKNESS Patient complaint: To the ED for swollen legs and blurred vision for few days. Pitting edema around ankles. Unable to walk very well and needs assistance. Generalized weakness. Hx of Lymphoma. New lesion on spinal canal c4/c5. Weaker and dropping things and falling last few weeks. Pts oncologist is at [facility]. C/o chronic pain all over at 5/10 on arrival. Abnormal Labs: CBC/CMP DONE Bun 20 Storage Brine Worker 1.37 HGB 7.2 HCT 24.9 PLT 460 CALCIUM 11.7 ALK PHOS 311 ALBUMIN 1.8 Imaging: CT HEAD AND CT CERVICAL SPINE--THEY WILL SEND ON A DISC Medications received: NO MEDS GIVEN IN ED OR IV FLUIDS Lines/Drains/Tubes: 20G LEFT HAND NO EKG DONE Pertinent assessment: C/A/OX4 SKIN P/W/D LUNGS CLEAR BILAT LOWER EXTREMITY EDEMA PT COMFORTABLE AT THIS TIME Pertinent medical hx: HODGKIN LYMPHOMA RENAL INSUFFICIENCY WIDESPREAD METASTATIC MALIGNANT NEOPLASTIC DISEASE CLOSED COMPRESSION FX LUMBAR SPIN METHAMPHETAMINE USE SEPSIS CHRONIC PAIN Vitals: @ 1815 Bp 128/70 Temp 97.1 Hr 70 Rr 16 Sa02 99% ra Height/Weight: 5 FT 7 IN 80.9KG Allergies: NONE Code status: FULL Isolation:NONE Emergency Contact: Date/Time of report: 04/24/23 @ 1915 Room assignment: 842A ETA to SJS: 2130 OR SO documented in this encounter Plan of Treatment [...] Procedure Name Priority Date/Time Associated Diagnosis Comments ASPERGILLUS ANTIGEN EIA Routine 04/28/2023 2:45 AM CDT BASIC METABOLIC PANEL Routine 04/28/2023 2:45 AM CDT CBC W/DIFF AUTOMATED Routine 04/28/2023 2:45 AM CDT CULTURE, BACTERIA, BLOOD TIMED 04/27/2023 5:23 PM CDT PROCALCITONIN (PCT) STAT 04/27/2023 5 :10 PM CDT FUNGITELL 7-7-S-D-GLUCAN (Q) Routine 04/27/2023 5:10 PM CDT SED RATE, ERYTHROCYTE (ESR) STAT 04/27/2023 5:10 PM CDT COMPREHENSIVE METABOLIC PANEL TIMED 04/27/2023 5:10 PM CDT LACTIC ACID STAT 04/27/2023 5:10 PM CDT C-REACTIVE PROTEIN STAT 04/27/2023 5: 10 PM CDT CULTURE, BACTERIA, BLOOD STAT 04/27/2023 5:10 PM CDT CBC W/DIFF AUTOMATED STAT 04/27/2023 5:10 PM CDT AMMONIA STAT 04/27/2023 5:10 PM CDT US GD LYMPH NODE BX STAT 04/27/2023 10:46 AM CDT FLOW CYTOMETRY Routine 04/27/2023 10:29 AM CDT USE ECHOCARDIOGRAM Today 04/27/2023 9: 04 AM CDT HC URINALYSIS AUTO W/MICRO Nurse Collected Priority 04/27/2023 3:17 AM CDT URINE BACTERIA CULTURE Nurse Collected Priority 04/27/2023 3:17 AM CDT PATHOLOGY Routine 04/27/2023 12:00 AM CDT CULTURE, BACTERIA, BLOOD TIMED 04/26/2023 10:59 PM CDT CULTURE, BACTERIA, BLOOD TIMED 04/26/2023 10:53 PM CDT CBC W/DIFF AUTOMATED Routine 04/26/2023 10:53 PM CDT MRI BRAIN W CON Today 04/26/2023 10:22 PM CDT MRI THOR SPINE WWO CON Today 10:22 PM CDT MRI LUMB SPINE WWO CON Today 10:04 PM CDT MRSA SCREENING Nurse Collected Priority 04/26/2023 5:50 PM CDT EEG AWAKE OR DROWSY ROUTINE Routine 04/26/2023 5:[address] CHEST+ABD+PEL W CON Today 3:13 PM CDT TRANSFUSE RED BLOOD CELLS Routine 04/26/2023 6:55 AM CDT TYPE & SCREEN STAT 04/26/2023 4:44 AM CDT SOLUBLE TRANSFERRIN RECEPTOR Routine 04/26/2023 3:14 AM CDT KAPPA LAMBDA FREE RATIO (QST) Routine 04/26/2023 3:14 AM CDT COMPREHENSIVE METABOLIC PANEL Routine 04/26/2023 3:14 AM CDT IMMUNOFIXATION Routine 04/26/2023 3:14 AM CDT CBC W/DIFF AUTOMATED Routine 04/26/2023 3:14 AM CDT PROTEIN, ELECTROPHORESIS Routine 04/26/2023 3:14 AM CDT IMMUNOGLOBULINS IGA IGG IGM Routine 04/26/2023 3:14 AM CDT PROTEIN ELECTROPHORESIS URINE RANDOM Nurse Collected Priority 04/25/2023 8:00 PM CDT COMPREHENSIVE METABOLIC PANEL TIMED 04/25/2023 7:37 PM CDT CBC W/DIFF AUTOMATED TIMED 04/25/2023 7:37 PM CDT POCT GLUCOSE - STEARNS DOCKED DEVICE Routine 04/25/2023 4:08 PM CDT URIC ACID BLOOD Routine 04/25/2023 3:21 PM CDT MRI CERV SPINE WO CON Today 04/25/2023 12:46 PM CDT MRI BRAIN WO CON Today 04/25/2023 12:34 PM CDT COMPREHENSIVE METABOLIC PANEL Routine 04/25/2023 11:06 AM CDT IRON SAT PANEL (IRON,IBC,%SAT) Routine 04/25/2023 11:[address], AUTO Routine 04/25/2023 11:02 AM CDT SED RATE, ERYTHROCYTE (ESR) Routine 04/25/2023 11:02 AM CDT HAPTOGLOBIN, QUANT Routine 04/25/2023 11:02 AM CDT LDH, LACTATE DEHYDROGENASE Routine 04/25/2023 11:02 AM CDT HEPATIC FUNCTION PANEL Routine 11:02 AM CDT PHOSPHORUS, INORGANIC PHOSPHATE Routine 04/25/2023 11:02 AM CDT FERRITIN Routine 04/25/2023 11:02 AM CDT POCT GLUCOSE - STEARNS DOCKED DEVICE Routine 04/25/2023 5:54 AM CDT RBC MORPHOLOGY Routine 04/25/2023 2:52 AM CDT BASIC METABOLIC PANEL Routine 04/25/2023 2:52 AM CDT CBC W/DIFF AUTOMATED Routine 04/25/2023 2:52 AM CDT CALCIUM, IONIZED Routine 04/24/2023 10:14 PM CDT CALCIUM Routine 04/24/2023 10:14 PM CDT documented in this encounter Results * ASPERGILLUS ANTIGEN, EIA (GALACTOMANNAN) (04/28/2023 2:45 AM CDT) INDEX VALUE 0.12 <0.50 04/30/2023 1:32 PM CDT Utility Funding KAY OLSON ASPERGILLUS [employer] Not Detected Not Detected 04/30/2023 1:32 PM CDT [employer] Funding KAY OLSON Comment: A negative result does not exclude invasive aspergillosis. ??Follow-up testing may be indicated for high-risk patients. An Index <0.50 is considered to be negative. An Index >=0.50 is considered to be positive. A positive result for patients being treated with piperacillin-tazobactam and other beta-lactam antibiotics such as amoxicillin-clavulanate may be a false positive due to cross reactivity and should be viewed in conjunction with all clinical findings. Positive results with this assay has also been reported in patients infected with Penicillium marneffei and Cryptococcus. Test Performed by [facility], [facility], [address] [place] [address] Rohith Yarbrough M.D., Ph.D., Director of Laboratories , CLIA [id number] 04/28/2023 2:45 AM CDT Bryce Parks MD LABORATORY Final Result Utility Funding [address] , * (ABNORMAL) CBC W/DIFF AUTOMATED (04/28/2023 2:45 AM CDT) WBC 6.10 4.00 - 10.80 x10'3/uL 04/28/2023 3:14 AM CDT [facility] RBC 3.40(L) 4.50 - 6.10 x10'6/uL 04/28/2023 3:14 AM CDT [facility] HGB 7.7(L) 13.0 - 18.0 G/DL 04/28/2023 3:14 AM CDT [facility] HCT 26.4(L) 37.0 - 52.0 % 04/28/2023 3:14 AM CDT [facility] MCV 77.6(L) 78.0 - 100.0 FL 04/28/2023 3:14 AM CDT [facility] MCH 22.6(L) 27.0 - 31.0 PG 04/28/2023 3:14 AM CDT [facility] MCHC 29.2(L) 33.0 - 36.0 G/DL 04/28/2023 3:14 AM CDT [facility] RDW 17.0(H) 11.5 - 14.5 % 04/28/2023 3:14 AM CDT [facility] PLT 407(H) 150 - 350 x10'3/uL 04/28/2023 3:14 AM CDT [facility] MPV 8.9 7.4 - 10.4 FL 04/28/2023 3:14 AM CDT [facility] ABS. NEUTROPHILS 5.77 1.60 - 8.30 x10'3/uL 04/28/2023 3:14 AM CDT [facility] ABS. LYMPHOCYTES 0.12(L) 0.80 - 4.70 x10'3/uL 04/28/2023 3:14 AM CDT [facility] ABS. MONOCYTES 0.11 0.00 - 1.50 x10'3/uL 04/28/2023 3:14 AM CDT [facility] ABS. EOSINOPHILS 0.00 0.00 - 0.40 x10'3/uL 04/28/2023 3:14 AM CDT [facility] ABS. BASOPHILS 0.01 0.00 - 0.20 x10'3/uL 04/28/2023 3:14 AM CDT [facility] ABS. IMMATURE GRANULOCYTES 0.09(H) 0.00 - 0.03 x10'3/uL 04/28/2023 3:14 AM CDT [facility] ABS. NUCLEATED RBC'S 0.00 0.0 x10'3/uL 04/28/2023 3:14 AM CDT [facility] 04/28/2023 2:45 AM CDT Bryce Parks MD LABORATORY Final Result [facility] [address] [place] [address], [place] [phone] * (ABNORMAL) BASIC METABOLIC PANEL (04/28/2023 2:45 AM CDT) SODIUM S/P/B 135(L) 136 - 145 MMOL/L 04/28/2023 4:00 AM CDT [facility] POTASSIUM S/P/B 3.8 3.5 - 5.1 MMOL/L 04/28/2023 4:00 AM CDT [facility] CHLORIDE S/P/B 102 98 - 107 MMOL/L 04/28/2023 4:00 AM CDT [facility] CO2 24.1 21.0 - 32.0 MMOL/L 04/28/2023 4:00 AM CDT [facility] GLUCOSE 164(H) 74 - 106 MG/DL 04/28/2023 4:00 AM CDT [facility] BUN 14 7 - 18 MG/DL 04/28/2023 4:00 AM CDT [facility] CREATININE S/P/B 1.10 0.70 - 1.30 MG/DL 04/28/2023 4:00 AM CDT [facility] CALCIUM S/P/B 8.8 8.5 - 10.1 MG/DL 04/28/2023 4:00 AM CDT [facility] ANION GAP 8.9 5.0 - 15.0 MMOL/L 04/28/2023 4:00 AM CDT [facility] OSMOLALITY (CALC) 284 MOSM/KG 023 4:00 AM CDT [facility] Comment:REFERENCE RANGE NOT ESTABLISHED GFR ESTIMATE >90 >90 ML/MIN/1. 73 M2 04/28/2023 4:00 AM CDT [facility] GFR NOTES GFR REFERENCE S: 04/28/2023 4:00 AM CDT [facility] Comment: THE ESTIMATED GFR IS CALCULATED [...] ml/min/1.73 m2 G5,KIDNEY FAILURE: <15 ml/min/1.73 m2 04/28/2023 2:45 AM CDT us Bryce Parks MD LABORATORY Final Result Performing Organization Address [facility] Co de Phone Number [facility] [address] [place] [address], [place] [phone] * CULTURE, BACTERIA, BLOOD (04/27/2023 5:23 PM CDT) SPEC DESCRIPTION BLOOD 04/28/2023 11:15 AM CDT [facility] SPECIAL REQUESTS NO SPECIAL REQUEST 04/28/2023 11:15 AM CDT [facility] CULTURE RESULT NO GROWTH 5 DAYS 05/03/2023 8:38 PM CDT [facility] BLOOD SPECIMEN OBTAINED FOR BLOOD CULTURE / Unknown 04/27/2023 5:23 PM CDT 04/28/2023 11:14 AM CDT us Bryce Parks MD MICROBIOLOGY - GENERAL ORDERABLE S Final Result Performing Organization Address [facility] Co de Phone Number [facility] [address] [place] [address], [id number] * (ABNORMAL) C-REACTIVE PROTEIN (04/27/2023 5:10 PM CDT) Pathologist [facility] C-REACTIVE PROTEIN 11.50(H) <0.80 mg/dL 04/27/2023 6:06 PM CDT [facility] 04/27/2023 5:10 PM CDT Jarrell Duran MD LABORATORY Final Result [facility] [address] [place] [address], [id number] * (ABNORMAL) COMPREHENSIVE METABOLIC PANEL (04/27/2023 5:10 PM CDT) [facility] SODIUM S/P/B 135(L) 136 - 145 MMOL/L 04/27/2023 6:06 PM CDT [facility] POTASSIUM S/P/B 3.5 3.5 - 5.1 MMOL/L 04/27/2023 6:06 PM CDT [facility] CHLORIDE S/P/B 101 98 - 107 MMOL/L 04/27/2023 6:06 PM CDT [facility] CO2 30.3 21.0 - 32.0 MMOL/L 04/27/2023 6:06 PM CDT [facility] GLUCOSE 111(H) 74 - 106 MG/DL 04/27/2023 6:06 PM CDT [facility] BUN 14 7 - 18 MG/DL 04/27/2023 6:06 PM CDT [facility] CREATININE S/P/B 1.18 0.70 - 1.30 MG/DL 04/27/2023 6:06 PM CDT [facility] CALCIUM S/P/B 8.7 8.5 - 10.1 MG/DL 04/27/2023 6:06 PM CDT [facility] BILIRUBIN TOTAL S/P/B 0.8 0.2 - 1.0 MG/DL 04/27/2023 6:06 PM T [facility] ALKALINE PHOSPHATASE S/P/B 349(H) 45 - 115 U/L 04/27/2023 6:06 PM [facility] AST 15 15 - 37 U/L 04/27/2023 6:06 PM T [facility] ALT 10(L) 16 - 61 U/L 04/27/2023 6:06 PM [facility] TOTAL PROTEIN S/P/B 5.8(L) 6.4 - 8.2 G/DL 04/27/2023 6:06 PM [facility] ALBUMIN S/P/B 1.6(L) 3.4 - 5.0 G/DL 04/27/2023 6:06 PM [facility] ANION GAP 3.7(L) 5.0 - 15.0 MMOL/L 04/27/2023 6:06 PM T [facility] OSMOLALITY (CALC) 281 MOSM/KG 023 6:06 PM [facility] Comment:REFERENCE RANGE NOT ESTABLISHED GFR ESTIMATE 83(L) >90 ML/MIN/1. 73 M2 04/27/2023 6:06 PM [facility] GFR NOTES GFR REFERENCE S: 04/27/2023 6:06 PM [facility] Comment: THE ESTIMATED GFR IS CALCULATED [...] ml/min/1.73 m2 G5,KIDNEY FAILURE: <15 ml/min/1.73 m2 04/27/2023 5:10 PM CDT Jarrell Duran MD LABORATORY Final Result [facility] [address] [place] [address], [place] [phone] * FUNGITELL 3-3-R-D-GLUCAN (Q) (04/27/2023 5:10 PM CDT) (1-3)-B-D-GLUCAN <31 <60 pg/mL 04/30/20 2:31 PM CDT Utility Funding KAY OLSON FUNGITELL INTERPRETATION Negative 04/30/2023 2:31 PM CDT [facility] KAY OLSON Comment: This assay is for the presumptive diagnosis of fungal infections and should be used in conjunction with other diagnostic procedures. (1-3)-jvbn-E-uzcnvw values of <60 pg/mL are considered negative and indicate the presumptive absence of a fungal infection. Glucan values of >=60 but <80 pg/mL are considered indeterminate, and glucan values of >=80 pg/mL are considered positive and indicate the presumptive presence of a fungal infection. This assay may not detect certain fungal species that do not produce or produce low levels of (1-3)-beta- D-glucan including: Cryptococcus, Absidia, Mucor, Rhizopus, and the yeast phase of Blastomyces dermatitidis. Test Performed by [facility], [facility], [address] [place] [address] Rohith Yarbrough M.D., Ph.D., Director of Laboratories , [place] [id number] 04/27/2023 5:10 PM CDT Darius Bailey MD LABORATORY Final Result Utility Funding [place] [id number] [place], [place] , * (ABNORMAL) SED RATE, ERYTHROCYTE (ESR,WSR) (04/27/2023 5:10 PM CDT) ESR 37(H) 0 - 15 MM/HR 04/27/2023 6:32 PM CDT [facility] 04/27/2023 5:10 PM CDT us Bryce Parks MD LABORATORY Final Result Performing Organization Address City/[facility]/ZIP Co de Phone Number [facility] [address] [place] [address], [phone] * LACTIC ACID - SINGLE (04/27/2023 5:10 PM CDT) Pathologist [facility] LACTIC ACID VENOUS 0.8 0.4 - 2.0 MMOL/L 04/27/2023 6:00 PM CDT [facility] 04/27/2023 5:10 PM CDT us Bryce Parks MD LABORATORY Final Result Performing Organization Address [facility] Co de Phone Number [facility] [address] [place] [address], [phone] * AMMONIA (04/27/2023 5:10 PM CDT) AMMONIA 21 11 - 32 UMOL/L 04/27/2023 5:57 PM CDT [facility] 04/27/2023 5:10 PM CDT us Bryce Parks MD LABORATORY Final Result Performing Organization Address City/[facility] Co de Phone Number [facility] [address] [place] [address], [place] [phone] * (ABNORMAL) CBC W/DIFF AUTOMATED (04/27/2023 5:10 PM CDT) Pathologist [facility] WBC 4.87 4.00 - 10.80 x10'3/uL 04/27/2023 5:42 PM CDT [facility] RBC 3.13(L) 4.50 - 6.10 x10'6/uL 04/27/2023 5:42 PM CDT [facility] HGB 7.1(L) 13.0 - 18.0 G/DL 04/27/2023 5:42 PM CDT [facility] HCT 24.4(L) 37.0 - 52.0 % 04/27/2023 5:42 PM CDT [facility] MCV 78.0 78.0 - 100.0 FL 04/27/2023 5:42 PM CDT [facility] MCH 22.7(L) 27.0 - 31.0 PG 04/27/2023 5:42 PM CDT [facility] MCHC 29.1(L) 33.0 - 36.0 G/DL 04/27/2023 5:42 PM CDT [facility] RDW 17.7(H) 11.5 - 14.5 % 04/27/2023 5:42 PM CDT [facility] PLT 351(H) 150 - 350 x10'3/uL 04/27/2023 5:42 PM CDT [facility] MPV 8.7 7.4 - 10.4 FL 04/27/2023 5:42 PM CDT [facility] ABS. NEUTROPHILS 4.14 1.60 - 8.30 x10'3/uL 04/27/2023 5:42 PM CDT [facility] ABS. LYMPHOCYTES 0.07(L) 0.80 - 4.70 x10'3/uL 04/27/2023 5:42 PM CDT [facility] ABS. MONOCYTES 0.49 0.00 - 1.50 x10'3/uL 04/27/2023 5:42 PM CDT [facility] ABS. EOSINOPHILS 0.07 0.00 - 0.40 x10'3/uL 04/27/2023 5:42 PM CDT [facility] ABS. BASOPHILS 0.02 0.00 - 0.20 x10'3/uL 04/27/2023 5:42 PM CDT [facility] ABS. IMMATURE GRANULOCYTES 0.08(H) 0.00 - 0.03 x10'3/uL 04/27/2023 5:42 PM CDT [facility] ABS. NUCLEATED RBC'S 0.00 0.0 x10'3/uL 04/27/2023 5:42 PM CDT [facility] 04/27/2023 5:10 PM CDT Bryce Parks MD LABORATORY Final Result Performing Organization Address [facility] Co de Phone Number [facility] [address] [place] [address], [phone] * CULTURE, BACTERIA BLOOD X2 (04/27/2023 5:10 PM CDT) SPEC DESCRIPTION BLOOD: STERIPATH 04/27/2023 9:48 AM CDT [facility] SPECIAL REQUESTS NO SPECIAL REQUEST 04/27/2023 9:48 AM CDT [facility] CULTURE RESULT NO GROWTH 5 DAYS 05/02/2023 8:52 PM CDT [facility] BLOOD SPECIMEN OBTAINED FOR BLOOD CULTURE / Unknown 04/27/2023 5:10 PM CDT 04/27/2023 5:36 PM CDT Comment:STERIPATH us Bryce Parks MD MICROBIOLOGY - GENERAL ORDERABLE S Final Result Performing Organization Address [facility]/ZIP Co de Phone Number [facility] [address] [place] [address], [phone] * PROCALCITONIN (PCT) (04/27/2023 5:10 PM CDT) Procalcitonin 0.28 <0.50 NG/ML 04/28/2023 9:26 AM CDT [facility] 04/27/2023 5:10 PM CDT Bryce Parks MD LABORATORY Final Result [facility] [address] [place] [address], [place] [phone] * US GD LYMPH NODE BX (04/27/2023 10:46 AM CDT) Anatomical Region Laterality Modality Undefined Ultrasound 04/27/2023 12:4 4 PM CDT Impressions 04/27/2023 12:58 PM CDT IMPRESSION: Successful right inguinal lymph node ultrasound-guided biopsy. Three, [18] - gauge core biopsies were obtained and sent for pathologic ??analysis. Core biopsy specimens were given directly to on-site land acquisition specialist. Tissue specimens were confirmed to be adequate by the on-site [facility] land acquisition specialist. PLAN: 1. Transfer to inpatient room when recovery room criteria is met. 2. Follow-up pathology results. IR follow-up as needed. The attending radiologist, Dr. Rothman, was present for all critical portions of the procedure, has reviewed the images, and agrees with the content of this report. Ordered By: BRYCE PARKS Interpreted By: Sonja Rothman MD, 04/27/2023 12:44 PM Narrative 04/27/2023 12:58 PM CDT IR ULTRASOUND-GUIDED RIGHT INGUINAL LYMPH NODE BIOPSY. HISTORY:33-year-old male with a Hodgkin's lymphoma presents for urgent inpatient right inguinal lymph node biopsy COMPARISON:CT chest abdomen pelvis with contrast, 04/26/2023. INTERVENTIONALISTS: STAFF: Sonja Rothman M.D coordinate measuring machine operator: Filiberto Loomis PA-C CONSENT: The risks, benefits and alternatives to the procedure were explained and informed consent was obtained.] Just before beginning the procedure, Juliann Limonducted a *time out* to verify the patient identity and the site and nature of the procedure to be performed. ANESTHESIA: Local anesthesia. 1% local lidocaine. FINDINGS: After review of previously acquired imaging, the patient was placed on the table into the planned pre-procedure position. Localizing scans were obtained with ultrasound over the expected target site and the skin was marked appropriately. After infiltration of the skin and deep tissues with local anesthetic, a 17- gauge introducer needle was advanced into the enlarged right inguinal lymph node from a lateral to medial approach utilizing concurrent real-time ultrasound visualization. Image documentation of access is maintained in the patient medical record. Once images showed satisfactory positioning in the peripheral aspect of the right inguinal lymph node. Three, 18 - gauge core biopsies were obtained and sent for analysis. The introducer needle was removed and manual pressure applied to obtain hemostasis. Post biopsy scan demonstrated no evidence of complication. The patient tolerated the procedure well with no immediate complications.No prophylactic procedural antibiotic was indicated for this procedure as there is no evidence supporting use for this procedure. The procedure was performed following all elements of maximal sterile barrier technique. The field was prepped in a sterile fashion and a large sterile field was used to protect the area of interest. All operators had a hand scrub for cutaneous antisepsis. All operators used sterile gown and gloves and wore a hat and a mask during the procedure. The procedure was performed using ultrasound guidance. A total of 21 permanent images were sent to PACS. Procedure Note Sonja Rothman MD - 04/27/2023 IR ULTRASOUND-GUIDED RIGHT INGUINAL LYMPH NODE BIOPSY. HISTORY:33-year-old male with a Hodgkin's lymphoma presents for urgentinpatient right inguinal lymph node biopsy COMPARISON:CT chest abdomen pelvis with contrast, 04/26/2023. INTERVENTIONALISTS: STAFF: Sonja Rothman M.D coordinate measuring machine operator: Filiberto Looims PA-C CONSENT: The risks, benefits and alternatives to the procedure were explained andinformed consent was obtained.] Just before beginning the procedure, Juliann Murryonducted a *time out* to verify the patient identity andthe site and nature of the procedure to be performed. ANESTHESIA: Local anesthesia. 1% local lidocaine. FINDINGS: After review of previously acquired imaging, the patient was placed on thetable into the planned pre-procedure position. Localizing scans wereobtained with ultrasound over the expected target site and the skin wasmarked appropriately. After infiltration of the skin and deep tissues with local anesthetic, a17- gauge introducer needle was advanced into the enlarged right inguinallymph node from a lateral to medial approach utilizing concurrentreal-time ultrasound visualization. Image documentation of access ismaintained in the patient medical record. Once images showed satisfactory positioning in the peripheral aspect ofthe right inguinal lymph node. Three, 18 - gauge core biopsies wereobtained and sent for analysis. The introducer needle was removed and manual pressure applied to obtainhemostasis. Post biopsy scan demonstrated no evidence of complication. The patient tolerated the procedure well with no immediatecomplications.No prophylactic procedural antibiotic was indicated for thisprocedure as there is no evidence supporting use for this procedure. The procedure was performed following all elements of maximal sterilebarrier technique. The field was prepped in a sterile fashion and a largesterile field was used to protect the area of interest. All operators hada hand scrub for cutaneous antisepsis. All operators used sterile gown andgloves and wore a hat and a mask during the procedure. The procedure was performed using ultrasound guidance. A total of 21 permanent images were sent to PACS. IMPRESSION: Successful right inguinal lymph node ultrasound-guided biopsy. Three, [18]- gauge core biopsies were obtained and sent for pathologic analysis.Core biopsy specimens were given directly to on-site land acquisition specialist.Tissue specimens were confirmed to be adequate by the on-site [facility] land acquisition specialist. PLAN: 1. Transfer to inpatient room when recovery room criteria is met. 2. Follow-up pathology results. IR follow-up as needed. The attending radiologist, Dr. Rothman, was present for all criticalportions of the procedure, has reviewed the images, and agrees with thecontent of this report. Ordered By: BRYCE PARKS Interpreted By: Sonja Rothman MD, 04/27/2023 12:44 PM Bryce Parks MD ULTRASOUND Final Result * Flow Cytometry (04/27/2023 10:29 AM CDT) FLOW CYTOMETRY RESULTS [facility] ? Department of Laboratory Medicine ?[address] ?[place] [address] ? , extension [phone] ? Pathology Report ? Flow Cytometry Report Name: CRYSTAL CAPONE ? Specimen #: [id number] Age: 8 1990 (Age: 33) ? Location: [facility] Sex: M ?Procedure Date: 04/27/2023 Hospital #: [id number] ?Date Received: 04/28/2023 Date Reported: 05/03/2023 Provider: BRYCE PARKS MD Source: Lymph node, left inguinal (See report [id number]) FINAL DIAGNOSIS: The Flow Cytometry report from [facility] can be found in Epic under the Media tab. Electronically Signed Out ? SUPRIYA MADDEN MD This test was developed and its performance characteristics determined by [facility]. It has not been cleared or approved by the U.S. Food and Drug Administration. However, the use of Analyte Specific Reagents does not require FDA approval. [facility] 04/27/2023 10:2 9 AM CDT 04/28/2023 11:15 AM CDT Comment:Lymph node, left ing uinal (See report [id number]) Bryce Parks MD PATHOLOGY/CYTOLOGY ORDERABLES Fi nal Result [facility] [address] [place] [address], [id number] * USE ECHOCARDIOGRAM (04/27/2023 9:04 AM CDT) Anatomical Region Laterality Modality Cardiac Echocardiogram 04/27/2023 8:37 AM CDT Narrative 04/27/2023 5:10 PM CDT ?Echocardiography Report Pat.Name: ??CRYSTAL CAPONE ? Pat.ID: ?[id number] ? St.Date: ?? 04/27/2023 ? Refer.MD: ??[id number] NON-STAFF PROVIDER ?EWDPROV ?EWDPROV Exam Time: 8:37:00 AM ? Study Type:ECHO WITH CARDIAC DOPPLER COMP Height: ?67 in ? Weight: ?156 lb ? BSA: ? 1.82 m2 ?Age: ??1990,33Y ? Sex: ? M ? BP: ?137/56 ? HR: ?89 bpm ?Sonogrphr: Naima Ayoub RDCS ? Pat. Stat.:Inpatient ? Room: ?842 ? Reason for Study:Anasarca ? Procedures: 2D, M-mode, Doppler, Color Flow Race: ?W ? ++++++++++++++++++++++++++++++++++++ SUMMARY: ++++++++++++++++++++++++++++++++++++ The left ventricular size is normal. The calculated ejection fraction is 61%. The right ventricular size is normal. Right ventricular systolic function is normal. Inferior vena cava is small / collapsed suggestive of ??low ??right atrial pressure. Diffuse thickening of the posterior leaflet , no ??definite hypermobile structure. Consider a FRANCISCO ??if clinically appropriate. No evidence of hemodynamically significant valvular stenosis or regurgitation. ++++++++++++++++++++++++++++++++++++ FINDINGS: ++++++++++++++++++++++++++++++++++++ LV: ? The left ventricular size is normal. The calculated ejection ?fraction is 61%. Normal wall thickness. Left ventricular ?diastolic function is indeterminate Left ventricular filling ?pressure is normal. WM: ? Wall motion appears normal RV: ? The right ventricular size is normal. Right ventricular ?systolic function is normal. LA: ? The left atrial volume is normal RA: ? The right atrial size is normal. VIET: ? Small pericardial effusion AO: ? The aortic root measures 2.8 cm. The proximal ascending ?aorta measures 2.7cm. PA: ? Unable to reliably quantitate pulmonary systolic pressure. SVn: ?Inferior vena cava is small / collapsed suggestive of low ?right atrial pressure. Systemic veins not well visualized. AV: ? No evidence of aortic valve stenosis. No evidence of aortic ?valve regurgitation. MV: ? Trace mitral regurgitation. No evidence of mitral stenosis. ?Diffuse thickening of the posterior leaflet , no definite ?hypermobile structure. Consider a FRANCISCO if clinically ?appropriate. PV: ? No evidence of pulmonic valve stenosis. No evidence of ?pulmonic regurgitation. TV: ? A trace of tricuspid regurgitation. No evidence of tricuspid ?valve stenosis. ++++++++++++++++++++++++++++++++++++ MEASUREMENTS: ++++++++++++++++++++++++++++++++++++ ?DOPPLER LVOT ?? LVOTpkPG ? 6 mmHg ?LVOTmnPG ? 3 mmHg LVOTpkVel ?125 cm/s (70-110)* LVOT SV ? 72 ml ?? LVOT TVI ?21.8 cm ? AV Forward Flow AV TVI ?22.3 cm ?AV pkPG ?8 mmHg AV pkVel ? 145 cm/s (100-170) Area (TVI) ?3.23 cm2 ??(3-5) AV mnVel ?94.3 cm/s ?Area (Loki) ?2.84 cm2 ??(3-5)* AV mnPG ?4 mmHg ? MV Forward Flow MV DeTm ?121 msec ?MV pkPG ?3 mmHg MVA P1/2t ? 7.59 cm2 ??(4-6)* ?? MV E/A ? 1.2 ? MV P1/2t ?29 msec (30-60)+* MV pkE ?72.8 cm/s (60-130) MV mnPG ?2 mmHg ?MV pkA ?60.4 cm/s TV Regurg Flow TV pkPG ? 17 mmHg ?TV pkVel ? 204 cm/s (30- 70)* Lat E' ?? Lat e ? 8.16 cm/s ? Lat E/E' ?? Lat E/e ?8.9 ? Med E' ?? Med e ? 6.96 cm/s ? Med E/E' ?? Med E/e ? 10.5 ? Aortic Valve ?? Aortic Valve Ar ??1.77 ?Aortic Valve Ve ??0.86 ? AV DI ?? Value ?1 ? CHRISTIANO (VTI) Index ?? Value ? 1.77 ? LV Mass 2D ?? Value ?112 g ? LV Mass [id number] ?? Value ? 61.5 g/m2 ? RA Volume ?? Atrial John ?? 4.55 cm ? Atrial John ?? 14.2 cm2 Atrial John ?? 33.6 ml ? Right Ventricle ?? Right Ventricle ??15.1 cm/s ?2D Left Ventricle ?? LVIDd ? 4.66 cm ?? (3.6-5.2) LV EF(Bi-Plane) ??61.3 % ?(63-77)* LVIDs ? 3.42 cm ?? (2.3-3.9) LVPW ?? LVPWd ?0.815 cm ? Ventricular Septum ?? IVSd ? 0.693 cm ? Aorta ?? Ao Rtd ?2.82 cm ?? (zsc 0.3) Ao Asc ?2.68 cm ?? (zsc 1.1) LVOT ?? LVOT ?2.05 cm ? Ratios ?? IVS LA Biplane LAVol I BP ?17 ml/m2 ? Right Ventricle ?? Right Ventricle ??4.29 cm ? Right Ventricle ??2.78 cm ?? Major [place] ?8.08 cm ? RV AutoStrain RV Right Ventricle -19.2 % ?Right Ventricle -21.5 % ?MMODE TA ?? Tricuspid Annul ??2.48 cm ? <Electronic Signature> 04/27/2023 05:10 PM Alesha Ross M.D. Procedure Note Alesha Ross MD - 04/27/2023 Echocardiography Report Pat.Name: CRYSTAL CAPONE Pat.ID: [id number] .Date: 04/27/2023 Refer.MD: [id number] NON-STAFF PROVIDER EWDPROV EWDPROV Exam Time: 8:37:00 AM Study Type:ECHO WITH CARDIAC DOPPLER COMP Height: 67 in Weight: 156 lb BSA: 1.82 m2 Age: 8 1990,33Y Sex: M BP: 137/56 HR: 89 bpm Sonogrphr: Naima Ayoub [facility] Pat. Stat.:Inpatient Room: 842 Reason for Study:Anasarca Procedures: 2D, M-mode, Doppler, Color Flow Race: W ++++++++++++++++++++++++++++++++++++ SUMMARY: ++++++++++++++++++++++++++++++++++++ The left ventricular size is normal. The calculated ejection fraction is 61%. The right ventricular size is normal. Right ventricular systolic function is normal. Inferior vena cava is small / collapsed suggestive of low right atrial pressure. Diffuse thickening of the posterior leaflet , no definite hypermobile structure. Consider a FRANCISCO if clinically appropriate. No evidence of hemodynamically significant valvular stenosis or regurgitation. ++++++++++++++++++++++++++++++++++++ FINDINGS: ++++++++++++++++++++++++++++++++++++ LV: The left ventricular size is normal. The calculated ejection fraction is 61%. Normal wall thickness. Left ventricular diastolic function is indeterminate Left ventricular filling pressure is normal. WM: Wall motion appears normal RV: The right ventricular size is normal. Right ventricular systolic function is normal. LA: The left atrial volume is normal RA: The right atrial size is normal. VIET: Small pericardial effusion AO: The aortic root measures 2.8 cm. The proximal ascending aorta measures 2.7cm. PA: Unable to reliably quantitate pulmonary systolic pressure. SVn: Inferior vena cava is small / collapsed suggestive of low right atrial pressure. Systemic veins not well visualized. AV: No evidence of aortic valve stenosis. No evidence of aortic valve regurgitation. MV: Trace mitral regurgitation. No evidence of mitral stenosis. Diffuse thickening of the posterior leaflet , no definite hypermobile structure. Consider a FRANCISCO if clinically appropriate. PV: No evidence of pulmonic valve stenosis. No evidence of pulmonic regurgitation. TV: A trace of tricuspid regurgitation. No evidence of tricuspid valve stenosis. ++++++++++++++++++++++++++++++++++++ MEASUREMENTS: ++++++++++++++++++++++++++++++++++++ DOPPLER LVOT LVOTpkPG 6 mmHg LVOTmnPG 3 mmHg LVOTpkVel 125 cm/s (70-110)* LVOT SV 72 ml LVOT TVI 21.8 cm AV Forward Flow AV TVI 22.3 cm AV pkPG 8 mmHg AV pkVel 145 cm/s (100-170) Area (TVI) 3.23 cm2 (3-5) AV mnVel 94.3 cm/s Area (Loki) 2.84 cm2 (3-5)* AV mnPG 4 mmHg MV Forward Flow MV DeTm 121 msec MV pkPG 3 mmHg MVA P1/2t 7.59 cm2 (4-6)* MV E/A 1.2 MV P1/2t 29 msec (30-60)+* MV pkE 72.8 cm/s (60-130) MV mnPG 2 mmHg MV pkA 60.4 cm/s TV Regurg Flow TV pkPG 17 mmHg TV pkVel 204 cm/s (30-70)* Lat E' Lat e 8.16 cm/s Lat E/E' Lat E/e 8.9 Med E' Med e 6.96 cm/s Med E/E' Med E/e 10.5 Aortic Valve Aortic Valve Ar 1.77 Aortic Valve Ve 0.86 AV DI Value 1 CHRISTIANO (VTI) Index Value 1.77 LV Mass 2D Value 112 g LV Mass [id number] Value 61.5 g/m2 RA Volume Atrial John 4.55 cm Atrial John 14.2 cm2 Atrial John 33.6 ml Right Ventricle Right Ventricle 15.1 cm/s 2D Left Ventricle LVIDd 4.66 cm (3.6-5.2) LV EF(Bi-Plane) 61.3 % (63-77)* LVIDs 3.42 cm (2.3-3.9) LVPW LVPWd 0.815 cm Ventricular Septum IVSd 0.693 cm Aorta Ao Rtd 2.82 cm (zsc 0.3) Ao Asc 2.68 cm (zsc 1.1) LVOT LVOT 2.05 cm Ratios IVS LA Biplane LAVol I BP 17 ml/m2 Right Ventricle Right Ventricle 4.29 cm Right Ventricle 2.78 cm Major Long [place] 8.08 cm RV AutoStrain RV Right Ventricle -19.2 % Right Ventricle -21.5 % MMODE TA Tricuspid Annul 2.48 cm <Electronic Signature> 04/27/2023 05:10 PM Alesha Ross M.D. Brianna PITT Final Result * CULTURE, URINE (04/27/2023 3:17 AM CDT) SPEC DESCRIPTION URINE CLEAN CATCH 04/27/2023 3:30 AM CDT [facility] SPECIAL REQUESTS NO SPECIAL REQUEST 04/27/2023 3:30 AM CDT [facility] CULTURE RESULT FEW CONTAMINANTS 04/05 9:03 AM CDT [facility] URINE SPECIMEN OBTAINED BY CLEAN CATCH PROCEDURE / Unknown 04/27/2023 3:17 AM CDT 04/27/2023 4:34 AM CDT Bryce Parks MD MICROBIOLOGY - GENERAL ORDERABLE S Final Result [facility] [address] [place], [place] [address] [phone] * (ABNORMAL) URINALYSIS (04/27/2023 3:17 AM CDT) COLOR (U) YELLOW 04/27/2023 4:30 AM CDT [facility] TRANSPARENCY SLIGHTLY CLOUDY 04/27/2023 4:30 AM CDT [facility] SPECIFIC GRAVITY (U) 1.043(H) 1.002 - 1.035 04/27/2023 4:30 AM CDT [facility] U PH 5.0 5 - 8 04/27/2023 4:30 AM CDT [facility] PROTEIN RANDOM (U) 30(A) NEGATIVE 04/27/2023 4:30 AM CDT [facility] GLUCOSE (U) NEGATIVE NEGATIVE MG/DL 04/27/2023 4:30 AM CDT [facility] KETONES MG/DL (U) NEGATIVE NEGATIVE 04/27/2023 4:30 AM CDT [facility] BILIRUBIN (U) NEGATIVE NEGATIVE 04/27/2023 4:30 AM CDT [facility] BLOOD (U) NEGATIVE NEGATIVE 04/27/2023 4:30 AM CDT [facility] NITRITES NEGATIVE NEGATIVE 04/27/2023 4:30 AM CDT [facility] UROBILINOGEN 4.0(H) 0 - 1 EU/DL 04/27/2023 4:30 AM CDT [facility] LEUKOCYTES (U) NEGATIVE NEGATIVE 04/27/2023 4:30 AM CDT [facility] RBC/HPF 11(H) 0 - 3 /HPF 04/27/2023 4:30 AM CDT [facility] WBC/HPF 3 0 - 6 /HPF 04/27/2023 4:30 AM CDT [facility] BACTERIA (U) NONE /HPF 04/27/2023 4:30 AM CDT [facility] SQUAMOUS EPITHELIALS 1 04/27/2023 4:30 AM CDT [facility] GRANULAR CASTS 3 04/27/2023 4:30 AM CDT [facility] URIC ACID CRYSTALS PRESENT 04/27/2023 4:30 AM CDT [facility] URINE SPECIMEN OBTAINED BY CLEAN CATCH PROCEDURE / Unknown 04/27/2023 3:17 AM CDT Bryce Parks MD URINE ORDERABLES Final Result Performing Organization Address [facility]/State/ZIP Co de Phone Number [facility] [address] [place] [address], [phone] * Pathology (04/27/2023 12:00 AM CDT) PATHOLOGY [facility] ? Department of Laboratory Medicine ?[address] ?[place] [address] ? , extension [phone] ? Pathology Report ? Surgical Pathology Report Name: CRYSTAL CAPONE ? Specimen #: [id number] Age: 8 1990 (Age: 33) ? Location: [facility] Sex: M ?Procedure Date: 04/27/2023 Hospital #: [id number] ?Date Received: 04/27/2023 Date Reported: 04/29/2023 Provider: OBED MALDONADO MD ?BARBY STEVENS III, MD ?BRYCE PARKS MD Source: Lymph node, left inguinal, biopsy Clinical History: History of Hodgkin's lymphoma and extensive lymphadenopathy. ?? Gross Description: Received in formalin, labeled with a patient label and not further designated, are two less than 0.1 cm diameter pink-white tissue cores that are each 1.0 cm in length. ??One touch preparation slide is received. ??The specimen is entirely submitted in cassette 1. Gross examination (when applicable), interpretation and sign-out were performed at [facility], [address] [place] [address], [facility]. Intraoperative Diagnosis: IMMEDIATE EVALUATION FOR ADEQUACY: LYMPH NODE, LEFT INGUINAL, NEEDLE BIOPSY, TOUCH PREPARATION: ? - PASS 1: ??ADEQUATE (Crystal Strauss, CT (ASCP). FINAL DIAGNOSIS: LYMPH NODE, LEFT INGUINAL, ULTRASOUND GUIDED NEEDLE BIOPSY: ? - CLASSIC HODGKIN LYMPHOMA. Diagnosis Comment: The biopsy contains a mixed hematolymphoid cell population with large cells with eosinophilic nuclear inclusions, consistent with Yan-Izabella cells. Immunohistochemica l stains reveal the cells are positive for CD30 and CD15 with focal weak positive staining for PAX5. ??The large cells are negative for CD45, CD20, CD3, and cytokeratin AE1/AE3. ??The findings support the diagnosis of classic Hodgkin lymphoma. ??The case was reviewed by Dr. Madden and Dr. Pritchard with concurrence. ?? Electronically Signed Out ? ROHITH HUERTA MD [facility] 04/27/2023 04/27/2023 1:4 5 PM CDT Comment:Lymph node, left ing uinal, biopsy Obed Maldonado MD PATHOLOGY/CYTOLOGY ORDERA BLES Final Result Performing Organization Address [facility]/RUST de Phone Number [facility] [address] [place] [address], [phone] * CULTURE, BACTERIA BLOOD X2 (04/26/2023 10:59 PM CDT) Pathologist [facility] SPEC DESCRIPTION BLOOD LINE 04/26/2023 5:42 PM CDT [facility] SPECIAL REQUESTS NO SPECIAL REQUEST 04/26/2023 5:42 PM CDT [facility] CULTURE RESULT NO GROWTH 5 DAYS 05/01/2023 8:45 PM CDT [facility] BLOOD SPECIMEN OBTAINED FOR BLOOD CULTURE / Unknown 04/26/2023 10:59 PM CDT 04/26/2023 11:22 PM CDT Bryce Parks MD MICROBIOLOGY - GENERAL ORDERABLE S Final Result Performing Organization Address [facility] Co de Phone Number [facility] [address] [place] [address], [place] [phone] * (ABNORMAL) CBC W/DIFF AUTOMATED (04/26/2023 10:53 PM CDT) WBC 5.82 4.00 - 10.80 x10'3/uL 04/26/2023 11:23 PM CDT [facility] RBC 3.36(L) 4.50 - 6.10 x10'6/uL 04/26/2023 11:23 PM CDT [facility] HGB 7.6(L) 13.0 - 18.0 G/DL 04/26/2023 11:23 PM CDT [facility] HCT 25.6(L) 37.0 - 52.0 % 04/26/2023 11:23 PM CDT [facility] MCV 76.2(L) 78.0 - 100.0 FL 04/26/2023 11:23 PM CDT [facility] MCH 22.6(L) 27.0 - 31.0 PG 04/26/2023 11:23 PM CDT [facility] MCHC 29.7(L) 33.0 - 36.0 G/DL 04/26/2023 11:23 PM CDT [facility] RDW 17.3(H) 11.5 - 14.5 % 04/26/2023 11:23 PM CDT [facility] PLT PLATELET CLUMPS PRESENT. ??ESTIMATE FROM SLIDE APPEARS TO BE BETWEEN 350,000 AND 500,000 150 - 350 x10'3/uL 04/27/2023 12:25 AM CDT [facility] MPV UNABLE TO PERFORM TEST 7.4 - 10.4 FL 04/27/2023 12:25 AM CDT [facility] ABS. NEUTROPHILS 4.79 1.60 - 8.30 x10'3/uL 04/26/2023 11:23 PM CDT [facility] ABS. LYMPHOCYTES 0.09(L) 0.80 - 4.70 x10'3/uL 04/26/2023 11:23 PM CDT [facility] ABS. MONOCYTES 0.75 0.00 - 1.50 x10'3/uL 04/26/2023 11:23 PM CDT [facility] ABS. EOSINOPHILS 0.08 0.00 - 0.40 x10'3/uL 04/26/2023 11:23 PM CDT [facility] ABS. BASOPHILS 0.02 0.00 - 0.20 x10'3/uL 04/26/2023 11:23 PM CDT [facility] ABS. IMMATURE GRANULOCYTES 0.09(H) 0.00 - 0.03 x10'3/uL 04/26/2023 11:23 PM CDT [facility] ABS. NUCLEATED RBC'S 0.00 0.0 x10'3/uL 04/26/2023 11:23 PM CDT [facility] 04/26/2023 10:5 3 PM CDT Jarrell Duran MD LABORATORY Final Result Performing Organization Address City/[facility]/ZIP Co de Phone Number [facility] [address] [place] [address], [phone] * CULTURE, BACTERIA BLOOD X2 (04/26/2023 10:53 PM CDT) SPEC DESCRIPTION BLOOD LINE 04/26/2023 5:42 PM CDT [facility] SPECIAL REQUESTS NO SPECIAL REQUEST 04/26/2023 5:42 PM CDT [facility] CULTURE RESULT NO GROWTH 5 DAYS 05/01/2023 8:45 PM CDT [facility] BLOOD SPECIMEN OBTAINED FOR BLOOD CULTURE / Unknown 04/26/2023 10:53 PM CDT 04/26/2023 11:23 PM CDT Bryce Parks MD MICROBIOLOGY - GENERAL ORDERABLE S Final Result Performing Organization Address City/[facility]/ZIP Co de Phone Number [facility] [address] [place] [address], [place] [phone] * MRI BRAIN W CON (04/26/2023 10:22 PM CDT) Anatomical Region Laterality Modality Head Magnetic Resonan ce 04/27/2023 12:3 8 AM CDT Impressions 04/27/2023 2:36 AM CDT IMPRESSION: 1. ??No abnormal intracranial enhancement is seen. 2. ??No acute intracranial abnormalities appreciated. 3. ??Decreased T1 signal diffusely in the bone marrow of the calvarium may be normal for age or less likely may represent a diffuse marrow replacing process. ??Please correlate clinically. Referred By: PROVIDER NON-STAFF Interpreted By: Matilda Chew MD, 04/27/2023 12:38 AM Narrative 04/27/2023 2:36 AM CDT EXAMINATION: MRI BRAIN W CONTRAST. ??Multiplanar postcontrast MR imaging of the brain was performed following intravenous administration of 14 in the Dotarem. INDICATION: Evaluate for brain metastasis, double vision, hx of mets/lymphoma. COMPARISON: MRI brain without contrast 04/25/2023. FINDINGS: No abnormal intracranial enhancement is seen on the postcontrast MR images of the brain. ??Anterior epidural soft tissue thickening noted in the cervical spine from C3 to C5 on the previous noncontrast MRI brain exam is not included on the postcontrast MR images; please refer to the MRI cervical spine exam of 04/25/2023 for further assessment. ??No abnormal intracranial dural or leptomeningeal enhancement is seen. ??No mass effect, midline shift, or acute osseous abnormality. ??Ventricles and sulci are normal for age. ??No abnormal extra-axial fluid collections. ??Normal villagomez-white differentiation is maintained. ??Persistent decreased T1 signal diffusely in the bone marrow, which may be normal for age, however marrow replacing process is not excluded. ??No significant paranasal sinus or mastoid air cell disease. ??Visualized orbits are unremarkable. Procedure Note Matilda Chew MD - 04/27/2023 EXAMINATION: MRI BRAIN W CONTRAST. Multiplanar postcontrast MR imaging ofthe brain was performed following intravenous administration of 14 in theDotarem. INDICATION: Evaluate for brain metastasis, double vision, hx ofmets/lymphoma. COMPARISON: MRI brain without contrast 04/25/2023. FINDINGS: No abnormal intracranial enhancement is seen on the postcontrastMR images of the brain. Anterior epidural soft tissue thickening noted inthe cervical spine from C3 to C5 on the previous noncontrast MRI brainexam is not included on the postcontrast MR images; please refer to theMNV cervical spine exam of 04/25/2023 for further assessment. No abnormalintracranial dural or leptomeningeal enhancement is seen. No mass effect,midline shift, or acute osseous abnormality. Ventricles and sulci arenormal for age. No abnormal extra-axial fluid collections. Normalgray- white differentiation is maintained. Persistent decreased T1 signaldiffusely in the bone marrow, which may be normal for age, however marrowreplacing process is not excluded. No significant paranasal sinus ormastoid air cell disease. Visualized orbits are unremarkable. IMPRESSION: 1. No abnormal intracranial enhancement is seen. 2. No acute intracranial abnormalities appreciated. 3. Decreased T1 signal diffusely in the bone marrow of the calvarium maybe normal for age or less likely may represent a diffuse marrow replacingprocess. Please correlate clinically. Referred By: PROVIDER NON-STAFF Interpreted By: Matilda Chew MD, 04/27/2023 12:38 AM Bryce Parks MD MRI Final Result * MRI THOR SPINE WWO CON (04/26/2023 10:22 PM CDT) Anatomical Region Laterality Modality Spine Magnetic Resonan ce 04/27/2023 12:3 9 AM CDT Impressions 04/27/2023 2:51 AM CDT IMPRESSION: 1. ??Numerous osseous metastasis scattered throughout the thoracic spine as detailed above with no acute pathological compression fracture identified. ??Preservation of vertebral heights in the thoracic spine. 2. ??No significant disc herniation, spinal canal or foraminal stenosis seen. 3. ??Please refer to the CT chest, abdomen, and pelvis with contrast exam of 04/26/2023 regarding the extraspinal findings. 4. ??Multiple metastatic lesions in the partially included bilateral rib cage. Referred By: PROVIDER NON-STAFF Interpreted By: Matilda Chew MD, 04/27/2023 12:39 AM Narrative 04/27/2023 2:51 AM CDT EXAMINATION: MRI Thoracic Spine without and with intravenous contrast. ??Multiplanar, multisequence MR imaging of thoracic spine was performed prior to and following intravenous administration of 14 mL Dotarem. ??The postcontrast MR images of the brain, thoracic and lumbar spine were obtained consecutively following intravenous administration of single dose of 14 mL Dotarem. INDICATION: Metastatic Hodgkin's lymphoma with cervical spinal lesion. COMPARISON: MRI cervical spine without contrast 04/25/2023 and MRI lumbar spine with and without contrast 04/26/2023. FINDINGS: There is preservation of the normal thoracic kyphosis. Normal vertebral body heights are maintained. Numerous osseous metastasis are seen in the included lower cervical, thoracic and included upper lumbar spine, most extensive in T1, T4, T5, T7 and T11 vertebral bodies with several small lesions also seen in the posterior elements of the thoracic spine with no pathological fracture seen in the thoracic spine. ??Preservation of normal thoracic kyphosis and normal vertebral heights and alignment in the thoracic spine. ??No significant disc bulge, disc herniation, spinal canal or foraminal stenosis in the thoracic spine. ??Normal signal intensity in the thoracic cord with no abnormal enhancement. ??Conus medullaris is better visualized on the MRI lumbar spine exam. ??Numerous metastatic rib lesions are also noted in the partially included bilateral rib cage. ??Small bibasilar pleural effusions. ??Please refer to the CT chest, abdomen and pelvis exam of 04/26/2023 for the extraspinal findings. Procedure Note Matilda Chew MD - 04/27/2023 EXAMINATION: MRI Thoracic Spine without and with intravenous contrast.Multiplanar, multisequence MR imaging of thoracic spine was performedprior to and following intravenous administration of 14 mL Dotarem. Thepostcontrast MR images of the brain, thoracic and lumbar spine wereobtained consecutively following intravenous administration of single doseof 14 mL Dotarem. INDICATION: Metastatic Hodgkin's lymphoma with cervical spinal lesion. COMPARISON: MRI cervical spine without contrast 04/25/2023 and MRI lumbarspine with and without contrast 04/26/2023. FINDINGS: There is preservation of the normal thoracic kyphosis. Normalvertebral body heights are maintained. Numerous osseous metastasis areseen in the included lower cervical, thoracic and included upper lumbarspine, most extensive in T1, T4, T5, T7 and T11 vertebral bodies withseveral small lesions also seen in the posterior elements of the thoracicspine with no pathological fracture seen in the thoracic spine.Preservation of normal thoracic kyphosis and normal vertebral heights andalignment in the thoracic spine. No significant disc bulge, discherniation, spinal canal or foraminal stenosis in the thoracic spine.Normal signal intensity in the thoracic cord with no abnormal enhancement.Conus medullaris is better visualized on the MRI lumbar spine exam.Numerous metastatic rib lesions are also noted in the partially includedbilateral rib cage. Small bibasilar pleural effusions. Please refer tothe CT chest, abdomen and pelvis exam of 04/26/2023 for the extraspinalfindings. IMPRESSION: 1. Numerous osseous metastasis scattered throughout the thoracic spine asdetailed above with no acute pathological compression fracture identified.Preservation of vertebral heights in the thoracic spine. 2. No significant disc herniation, spinal canal or foraminal stenosisseen. 3. Please refer to the CT chest, abdomen, and pelvis with contrast examof 04/26/2023 regarding the extraspinal findings. 4. Multiple metastatic lesions in the partially included bilateral ribcage. Referred By: PROVIDER NON-STAFF Interpreted By: Matilda Chew MD, 04/27/2023 12:39 AM Barby Stevens III, MD MRI Final R esult * MRI LUMB SPINE WWO CON (04/26/2023 10:04 PM CDT) Anatomical Region Laterality Modality Spine Magnetic Resonan ce 04/27/2023 12:3 9 AM CDT Impressions 04/27/2023 3:12 AM CDT IMPRESSION: 1. Numerous osseous metastasis in the lumbar spine and included lower thoracic and sacral spine with small metastatic lesions also seen in a few posterior elements in the lumbar spine. 2. ??No pathological fracture. 3. ??Suspect ventral epidural extension of tumor into the ventral spinal canal at L4 level, likely expansion of L4 vertebral body osseous metastasis into the ventral spinal canal. ??Central canal stenosis at L4 level. 4. ??Nonenhancing CSF prominence or less likely nonenhancing epidural prominence of soft tissue in the posterior spinal canal from inferior L1 to upper L3 level is likely from an arachnoid cyst, with posterior epidural neoplasm less likely. 5. ??Exam is limited by motion related artifact, which may lower the sensitivity of the exam. ??Please see the CT chest, abdomen and pelvis with contrast exam of 04/26/2023 for the extraspinal findings. Referred By: PROVIDER NON-STAFF Interpreted By: Matilda Chew MD, 04/27/2023 12:39 AM Narrative 04/27/2023 3:12 AM CDT EXAMINATION: MRI LUMB SPINE WITH AND WITH INTRAVENOUS CONTRAST. ??Multiplanar, multisequence MR imaging of lumbar spine was performed prior to and following intravenous administration of 14 mL Dotarem. ??The postcontrast MR images of the brain, thoracic and lumbar spine were obtained consecutively following intravenous administration of single dose of 14 mL Dotarem. INDICATION: Metastatic Hodgkin's lymphoma with cervical spinal lesion. COMPARISON: MRI cervical spine without contrast 04/25/2023 and MRI lumbar spine with and without contrast 04/26/2023. INDICATION: Metastatic Hodgkin's lymphoma with cervical spinal lesion. COMPARISON: MRI thoracic spine exam with and without contrast and CT chest, abdomen and pelvis with contrast exams of 04/26/2023. TECHNIQUE: Three views ??of the lumbar spine were obtained FINDINGS: There are motion related artifacts, which may lower the sensitivity and specificity of the exam. ??Numerous enhancing osseous metastasis are seen in the lumbar spine and in the included lower thoracic spine and upper sacrum, most extensive in the L4 vertebral body in the lumbar spine. ??There is mild marrow expansion of the L4 and likely also of the L3 vertebral bodies. ??No compression fracture or other pathological fracture is identified on the MRI exam. ??There is enhancing epidural extension of neoplasm in the ventral spinal canal at the L4 vertebral level encroaching on the ventral spinal canal with moderate central canal stenosis at the L4 level. ??There is a nonenhancing CSF prominence in the posterior spinal canal from inferior L1 level to upper L3 level causing anterior displacement of the cauda equina, possibly from an arachnoid cyst, with posterior epidural neoplasm within the spinal canal less likely given the lack of abnormal enhancement, but please correlate clinically. ??There is concern for at least moderate spinal canal stenosis at the L2 level. ??Conus medullaris terminates at the L1-2 level with normal signal intensity without abnormal enhancement. ??No evidence of significant disc bulge or disc herniation in the lumbar spine. ??Paraspinal soft tissues are grossly unremarkable. ??Please refer to the CT chest, abdomen and pelvis exam of 04/26/2023 for the extraspinal findings. Procedure Note Matilda Chew MD - 04/27/2023 EXAMINATION: MRI LUMB SPINE WITH AND WITH INTRAVENOUS CONTRAST.Multiplanar, multisequence MR imaging of lumbar spine was performed priorto and following intravenous administration of 14 mL Dotarem. Thepostcontrast MR images of the brain, thoracic and lumbar spine wereobtained consecutively following intravenous administration of single doseof 14 mL Dotarem. INDICATION: Metastatic Hodgkin's lymphoma with cervical spinal lesion. COMPARISON: MRI cervical spine without contrast 04/25/2023 and MRI lumbarspine with and without contrast 04/26/2023. INDICATION: Metastatic Hodgkin's lymphoma with cervical spinal lesion. COMPARISON: MRI thoracic spine exam with and without contrast and CTchest, abdomen and pelvis with contrast exams of 04/26/2023. TECHNIQUE: Three views of the lumbar spine were obtained FINDINGS: There are motion related artifacts, which may lower thesensitivity and specificity of the exam. Numerous enhancing osseousmetastasis are seen in the lumbar spine and in the included lower thoracicspine and upper sacrum, most extensive in the L4 vertebral body in thelumbar spine. There is mild marrow expansion of the L4 and likely also ofthe L3 vertebral bodies. No compression fracture or other pathologicalfracture is identified on the MRI exam. There is enhancing epiduralextension of neoplasm in the ventral spinal canal at the L4 vertebrallevel encroaching on the ventral spinal canal with moderate central canalstenosis at the L4 level. There is a nonenhancing CSF prominence in theposterior spinal canal from inferior L1 level to upper L3 level causinganterior displacement of the cauda equina, possibly from an arachnoidcyst, with posterior epidural neoplasm within the spinal canal less likelygiven the lack of abnormal enhancement, but please correlate clinically.There is concern for at least moderate spinal canal stenosis at the F0seudm. Conus medullaris terminates at the L1-2 level with normal signalintensity without abnormal enhancement. No evidence of significant discbulge or disc herniation in the lumbar spine. Paraspinal soft tissues aregrossly unremarkable. Please refer to the CT chest, abdomen and pelvisexam of 04/26/2023 for the extraspinal findings. IMPRESSION: 1. Numerous osseous metastasis in the lumbar spine and included lowerthoracic and sacral spine with small metastatic lesions also seen in a fewposterior elements in the lumbar spine. 2. No pathological fracture. 3. Suspect ventral epidural extension of tumor into the ventral spinalcanal at L4 level, likely expansion of L4 vertebral body osseousmetastasis into the ventral spinal canal. Central canal stenosis at [id number]. 4. Nonenhancing CSF prominence or less likely nonenhancing epiduralprominence of soft tissue in the posterior spinal canal from inferior L1to upper L3 level is likely from an arachnoid cyst, with posteriorepidural neoplasm less likely. 5. Exam is limited by motion related artifact, which may lower thesensitivity of the exam. Please see the CT chest, abdomen and pelvis withcontrast exam of 04/26/2023 for the extraspinal findings. Referred By: PROVIDER NON-STAFF Interpreted By: Matilda Chew MD, 04/27/2023 12:39 AM Barby Stevens III, MD MRI Final R esult * (ABNORMAL) MRSA PCR nares Screening (04/26/2023 5:50 PM CDT) SPECIMEN SOURCE RESPIRATORY, NOSE 04/26/2023 5:43 PM CDT [facility] MRSA BY PCR NASAL METHICILLIN RESISTANT STAPH AUREUS DETECTED.(A) METHICILLIN RESISTANT STAPH AUREUS NOT DETECTED 04/27/2023 10:34 AM CDT [facility] Comment: CRITICAL RESULT, SPECIMEN DATE, TIME WERE READ BACK BY RAYO NGUYỄN AT 1033 ON 04.27.23. DC NASAL STRUCTURE / Unknown 04/26/2023 5:50 PM CDT Bryce Parks MD MICROBIOLOGY - GENERAL ORDERABLE S Final Result Performing Organization Address City/[facility] Co de Phone Number [facility] [address] [place] [address], [id number] * EEG routine (04/26/2023 5:45 PM CDT) 04/26/2023 5:45 PM CDT Narrative ESCRIPTION - 04/28/2023 10:13 AM CDT Patient Name: CRYSTAL CAPONE Date of : 1990 Account: [id number] Facility: [facility] Location: [facility] Date of Service: 04/28/2023 EEG Mr. Capone is a 33-year-old male with a history of acute encephalopathy and weakness. ??A routine awake and asleep EEG was performed. The patient develops an abnormal background with low to moderate amplitude theta and delta slowing seen throughout. ??No paroxysmal or definite epileptiform activity is seen. ??No pathologic slowing is seen. ??No asymmetries are seen. ??At no time does his background normalize. SUMMARY: ??Abnormal EEG consistent with a diffuse encephalopathy of any type. ??No epileptiform activity was seen. ??Clinical correlation is required. Signature/Date: ? SHERRELL LEONARD MD D: ??04/28/2023 08:34 AM ??#[id number] T: ??04/28/2023 09:17 AM ??/KUL Bryce Parks MD NEUROLOGY ORDERABLES Final Resul t Performing Organization Address [facility] Co de Phone Number ESCRIPTION * CT CHEST+ABD+PEL W CON (04/26/2023 3:13 PM CDT) Anatomical Region Laterality Modality Chest, Abdomen, Pelvis Computed Tomography 04/26/2023 4:20 PM CDT Impressions 04/26/2023 4:44 PM CDT IMPRESSION: 1. ??Progressive multifocal adenopathy above and below the diaphragm, likely reflecting Hodgkin's lymphoma. ??Predominant sites of adenopathy include bilateral inguinal regions, upper retroperitoneum near the level of the renal vessels, and left supraclavicular fossa. ??Although somewhat ill-defined and difficult to differentiate from the scalene muscles, there may be adenopathy involving the left brachial plexus and extending into the first left rib interspace. ??In addition, numerous hypoenhancing splenic lesions have increased, also presumably related to lymphoma. 2. ??Previously in part obscured by pneumonia, there is better demonstration of a roughly 5 cm right upper lobe lung mass. ??It is unclear whether whether this may reflect extra lymphatic involvement of advanced stage Hodgkin disease, versus a second lung primary. 3. ??Tree-in-bud opacity in the central aspect of the left lung probably represents superimposed infection/aspiration. ??However, lymphangitic carcinomatosis is a less likely possibility. ??Central involvement (rather than typical peripheral and intralobular distribution of perilymphatic nodularity) favors infection. 4. ??Slight interval increase in multifocal osseous metastatic disease. ??Of note, there are lytic lesions in both weightbearing femoral necks.. 5. ??Indeterminate subtle area of right superior renal cortical hypoenhancement. ??This could potentially reflect a small microvascular infarct or focus of localized pyelonephritis. ??Lymphomatous involvement of the kidney is possible but less likely. Referred By: PROVIDER NON-STAFF Interpreted By: Johnny Galaviz MD, 04/26/2023 4:20 PM Narrative 04/26/2023 4:44 PM CDT EXAM: CT CHEST, ABDOMEN, and PELVIS with contrast INDICATION: Metastatic lesions and Hodgkin's lymphoma. COMPARISON: 12/15/2022. TECHNIQUE: Multidetector CT images were obtained through the chest, abdomen and pelvis after injection of 100 mL Isovue-370 IV contrast. Multiplanar reformatted images were created and reviewed. A dose lowering technique was used for this procedure, which may include, but is not limited to, dose reduction techniques, automated exposure control, the use of a iterative reconstruction, and ALARA (as low as reasonably achievable)/image gently techniques. FINDINGS: CT CHEST: Heart: Heart size is normal. ??There is a trace amount of pericardial fluid. Great vessels: Normal in caliber. Mediastinum and monica: Right chest Port-A-Cath is noted with catheter tip in the high right atrium. ??A few mildly prominent mediastinal lymph nodes are identified, most less than 1 cm short axis. ??A right hilar/peribronchial mode on image 50 measures 1 cm short axis. Pleura: There is a small, layering left pleural effusion. Lungs: In the central aspect of the right upper lobe, there is an irregularly- shaped mass with probable central necrosis measuring 3.7 cm craniocaudal by 5.6 cm transverse and 3.3 cm AP. ??On the most recent CT 12/15/2022, this area was involved by densely consolidative pneumonia, which may have obscured the mass. ??Inframedial aspect of the lesion extends along the bronchovascular pedicle to the superior right hilum. ??In the left lung, there is a perihilar distribution of tree-in-bud opacity which is new.. Other: Multiple enlarged but ill-defined nodes and heterogeneously enhancing soft tissue lesions are seen in the left supraclavicular fossa and extending along the left brachial plexus and left thoracic inlet, example axial images 6 through 16. ??In some areas, nodes are difficult to distinguish from the scalene muscles, but there is at least one probable enlarged node on axial image 8 measuring 1.3 cm short axis. ??Ill-defined intercostal soft tissue thickening is seen extending into the left first intercostal space. CT ABDOMEN: Liver: Unremarkable. Gallbladder and biliary tree: The ??common bile duct is nondilated. The gall bladder is normal. Pancreas: Normal. Spleen: Multiple vague hypoenhancing lesions are seen throughout the splenic parenchyma. ??The largest in the upper pole measures about 2.2 cm (example axial image 86) while the largest in the lower pole measures about 2.1 cm (image 109). Adrenal glands: Normal. Kidneys: The nephrograms are symmetric. ??However, there is a focal geographic area of renal cortical hypoenhancement in the superior pole of the right kidney, example axial image 117 and coronal image 51. ??See note below. Bowel: There is no evidence of bowel obstruction. ??Marked diffuse colonic stool retention is noted. Peritoneum: There is no ascites, pneumoperitoneum, or adenopathy. Retroperitoneum: The aorta is normal in caliber. There is diffuse retroperitoneal adenopathy which has substantially increased compared to 12/15/2022. ??For example, immediately below the level of the renal vessels, there are multiple enlarged nodes on axial image 125 with short axis dimension of up to 1.7 cm. Other: There is diffuse subcutaneous edema, likely reflecting hypoalbuminemia/third spacing. CT PELVIS: The urinary bladder is unremarkable. ??Prostate, seminal vesicles, rectum, appear normal. ??There is edema in the perirectal fat likely reflecting anasarca given more diffuse subcutaneous findings. ??There is bilateral inguinal adenopathy, right greater than left, with largest node on axial image 195 having a short axis diameter of 1.7 cm. There are numerous, mostly radiolucent osseous lesions which shows slight progression compared to 12/15/2022. ??In the pelvis, there is increased size of a roughly 2 cm lytic lesion in the left side of the pubic body resulting in increased cortical osteolysis. ??There are increased bilateral femoral neck lesions. ??Bilateral iliac bone lesions are seen. ??There is a pathologic fracture of the right side of the L4 vertebral body which shows little change. ??Multifocal lesions in the L2 vertebral body show increased size right of midline, but appear less prominent left of midline, possibly reflecting mixed treatment response. Procedure Note Johnny Galaviz MD - 04/26/2023 EXAM: CT CHEST, ABDOMEN, and PELVIS with contrast INDICATION: Metastatic lesions and Hodgkin's lymphoma. COMPARISON: 12/15/2022. TECHNIQUE: Multidetector CT images were obtained through the chest,abdomen and pelvis after injection of 100 mL Isovue-370 IV contrast.Multiplanar reformatted images were created and reviewed. A dose loweringtechnique was used for this procedure, which may include, but is notlimited to, dose reduction techniques, automated exposure control, the useof a iterative reconstruction, and ALARA (as low as reasonablyachievable)/image gently techniques. FINDINGS: CT CHEST: Heart: Heart size is normal. There is a trace amount of pericardialfluid. Great vessels: Normal in caliber. Mediastinum and monica: Right chest Port-A-Cath is noted with catheter tipin the high right atrium. A few mildly prominent mediastinal lymph nodesare identified, most less than 1 cm short axis. A righthilar/peribronchial mode on image 50 measures 1 cm short axis. Pleura: There is a small, layering left pleural effusion. Lungs: In the central aspect of the right upper lobe, there is anirregularly- shaped mass with probable central necrosis measuring 3.7 cmcraniocaudal by 5.6 cm transverse and 3.3 cm AP. On the most recent CT12/15/2022, this area was involved by densely consolidative pneumonia,which may have obscured the mass. Inframedial aspect of the lesionextends along the bronchovascular pedicle to the superior right hilum. Inthe left lung, there is a perihilar distribution of tree-in-bud opacitywhich is new.. Other: Multiple enlarged but ill-defined nodes and heterogeneouslyenhancing soft tissue lesions are seen in the left supraclavicular fossaand extending along the left brachial plexus and left thoracic inlet,example axial images 6 through 16. In some areas, nodes are difficult todistinguish from the scalene muscles, but there is at least one probableenlarged node on axial image 8 measuring 1.3 cm short axis. Ill-definedintercostal soft tissue thickening is seen extending into the left firstintercostal space. CT ABDOMEN: Liver: Unremarkable. Gallbladder and biliary tree: The common bile duct is nondilated. Thegall bladder is normal. Pancreas: Normal. Spleen: Multiple vague hypoenhancing lesions are seen throughout thesplenic parenchyma. The largest in the upper pole measures about 2.2 cm(example axial image 86) while the largest in the lower pole measuresabout 2.1 cm (image 109). Adrenal glands: Normal. Kidneys: The nephrograms are symmetric. However, there is a focalgeographic area of renal cortical hypoenhancement in the superior pole ofthe right kidney, example axial image 117 and coronal image 51. See notebelow. Bowel: There is no evidence of bowel obstruction. Marked diffuse colonicstool retention is noted. Peritoneum: There is no ascites, pneumoperitoneum, or adenopathy. Retroperitoneum: The aorta is normal in caliber. There is diffuseretroperitoneal adenopathy which has substantially increased compared to12/15/2022. For example, immediately below the level of the renal vessels,there are multiple enlarged nodes on axial image 125 with short axisdimension of up to 1.7 cm. Other: There is diffuse subcutaneous edema, likely reflectinghypoalbuminemia/third spacing. CT PELVIS: The urinary bladder is unremarkable. Prostate, seminal vesicles, rectum,appear normal. There is edema in the perirectal fat likely reflectinganasarca given more diffuse subcutaneous findings. There is bilateralinguinal adenopathy, right greater than left, with largest node on axialimage 195 having a short axis diameter of 1.7 cm. There are numerous, mostly radiolucent osseous lesions which shows slightprogression compared to 12/15/2022. In the pelvis, there is increased sizeof a roughly 2 cm lytic lesion in the left side of the pubic bodyresulting in increased cortical osteolysis. There are increased bilateralfemoral neck lesions. Bilateral iliac bone lesions are seen. There is apathologic fracture of the right side of the L4 vertebral body which showslittle change. Multifocal lesions in the L2 vertebral body show increasedsize right of midline, but appear less prominent left of midline, possiblyreflecting mixed treatment response. IMPRESSION: 1. Progressive multifocal adenopathy above and below the diaphragm,likely reflecting Hodgkin's lymphoma. Predominant sites of adenopathyinclude bilateral inguinal regions, upper retroperitoneum near the levelof the renal vessels, and left supraclavicular fossa. Although somewhatill-defined and difficult to differentiate from the scalene muscles, theremay be adenopathy involving the left brachial plexus and extending intothe first left rib interspace. In addition, numerous hypoenhancingsplenic lesions have increased, also presumably related to lymphoma. 2. Previously in part obscured by pneumonia, there is betterdemonstration of a roughly 5 cm right upper lobe lung mass. It is unclearwhether whether this may reflect extra lymphatic involvement of advancedstage Hodgkin disease, versus a second lung primary. 3. Tree-in-bud opacity in the central aspect of the left lung probablyrepresents superimposed infection/aspiration. However, lymphangiticcarcinomatosis is a less likely possibility. Central involvement (ratherthan typical peripheral and intralobular distribution of perilymphaticnodularity) favors infection. 4. Slight interval increase in multifocal osseous metastatic disease. Ofnote, there are lytic lesions in both weightbearing femoral necks.. 5. Indeterminate subtle area of right superior renal corticalhypoenhancement. This could potentially reflect a small microvascularinfarct or focus of localized pyelonephritis. Lymphomatous involvement ofthe kidney is possible but less likely. Referred By: PROVIDER NON-STAFF Interpreted By: Johnny Galavzi MD, 04/26/2023 4:20 PM Bryce [address] MD CT Final Result * TRANSFUSE RED BLOOD CELLS (04/26/2023 10:35 AM CDT) Brenna Ramos MANAGER [employer] ORDERABLES - BLOOD ADMIN Final Result * TRANSFUSE RED BLOOD CELLS, 1 Units (04/26/2023 10:35 AM CDT) Brenna Ramos MANAGER [employer] ORDERABLES - BLOOD ADMIN Final Result * TYPE & SCREEN (04/26/2023 4:44 AM CDT) UNITS ORDERED 1 04/26/2023 4:52 AM CDT [facility] ABO/RH O POSITIVE 04/26/2023 5:33 AM CDT [facility] ANTIBODY SCREEN NEGATIVE 5:33 AM CDT [facility] SAMPLE EXPIRATION 04/29/2023,2359 04/26/2023 4:52 AM CDT [facility] BLOOD UNIT NUMBER [id number] 04/26/2023 6:37 AM CDT [facility] PRODUCT: PC LEUKOPOOR 04/26/2023 6:37 AM CDT [facility] UNIT DIVISION 00 04/26/2023 6:37 AM CDT [facility] BLOOD UNIT STATUS TRANSFUSED,FINAL 04/27/2023 6:54 AM CDT [facility] ISSUE DATE/TIME [id number] 023 6:54 AM CDT [facility] PRODUCT CODE [id number] 04/27/2023 6:54 AM CDT [facility] ABO/RH Unit O POS 04/27/2023 6:54 AM CDT [facility] ABO/RH UNIT ISBT CODE [id number] 04/27/2023 6:54 AM CDT [facility] BLOOD UNIT EXPIRATION DATE [id number] 04/27/2023 6:54 AM CDT [facility] TRANSFUSION STATUS OK TO TRANSFUSE 04/26/2023 6:37 AM CDT [facility] CROSSMATCH COMPATIBLE-EXM 04/26/2023 6:37 AM CDT [facility] 04/26/2023 4:44 AM CDT Bryce Parks MD BLOOD BANK TEST ORDERABLES Final Result Performing Organization Address City/[facility] de Phone Number [facility] [address] [place] [address], [phone] * IMMUNOFIXATION (04/26/2023 3:14 AM CDT) IMMUNOFIXATION SERUM SEE PATHOLOGIST'S INTERPRETATION 04/26/2023 11:12 AM CDT [facility] IMMUNOFIX (SERUM) INTERPRETATION THIS SERUM IMMUNOTYPING WAS INTERPRETED BY 04/27/2023 3:51 PM CDT [facility] Comment: DR SUPRIYA MADDEN MONOCLONAL PROTEIN NOT IDENTIFIED 04/26/2023 3:14 AM CDT Brianna Francis DO LABORATORY Final Result Performing Organization Address City/[facility] Co de Phone Number [facility] [address] [place] [phone], [phone] * SOLUBLE TRANSFERRIN RECEPTOR (04/26/2023 3:14 AM CDT) Pathologist [facility] TRANSFERRIN 1.44 0.76 - 1.76 mg/L 04/30/2023 8:59 PM CDT Utility Funding [facility] Comment: Test performed by [facility] Howland ? [address], ? [place] [address] ? Publishing Editor: SUPRIYA HOWARD M.D. Test Reported by [facility], [facility], [address] [place] [address] Rohith Yarbrough M.D., Ph.D., Director of Laboratories , [facility] [id number] 04/26/2023 3:14 AM CDT Brianna Francis DO LABORATORY Final Result Utility Funding [address] [id number], * (ABNORMAL) KAPPA LAMBDA FREE RATIO (QST) (04/26/2023 3:14 AM CDT) KAPPA FREE LIGHT CHAIN 50.8(H) 3.3 - 19.4 mg/L 04/30/2023 2:27 PM CDT [facility] KAY LLY LAMBDA FREE LIGHT CHAIN 38.1(H) 5.7 - 26.3 mg/L 04/30/2023 2:27 PM CDT Utility Funding KAY LLY KAPPA/LAMBDA FREE 1.33 0.26 - 1.65 04/30/2023 2:27 PM CDT Utility Funding [facility] Comment: Free kappa/lambda ratio in serum of normal individuals is 0.26-1.65. Excess production of free kappa or lambda chains can alter the ratio. Monoclonal free light chains are found in the serum of patients with multiple myeloma, Waldenstrom's macroglobulinemia, mu-heavy chain disease, primary amyloidosis, light chain deposition disease, monoclonal gammopathy of undetermined significance, and lymphoproliferative disorders. Measurement of free light chain concen- tration in serum is useful for diagnosis, prognosis, monitoring disease activity and following response to therapy of these disorders. Test Performed by [facility], [facility], [address] [place], [place] Rohith Yarbrough M.D., Ph.D., Director of Laboratories , CLIA [id number] 04/26/2023 3:14 AM CDT Brianna Francis DO LABORATORY Final Result Utility Funding [place] [id number] [place], [place] , * (ABNORMAL) CBC W/DIFF AUTOMATED (04/26/2023 3:14 AM CDT) WBC 5.08 4.00 - 10.80 x10'3/uL 04/26/2023 4:24 AM CDT [facility] RBC 2.94(L) 4.50 - 6.10 x10'6/uL 04/26/2023 4:24 AM CDT [facility] HGB 6.4(LL) 13.0 - 18.0 G/DL 04/26/2023 4:24 AM CDT [facility] Comment: CRITICAL RESULT, SPECIMEN DATE, TIME WERE READ BACK BY DELMA BUITRAGO @0424 04.26.23 IWJ HCT 22.0(L) 37.0 - 52.0 % 04/26/2023 4:24 AM CDT [facility] MCV 74.8(L) 78.0 - 100.0 FL 04/26/2023 4:24 AM CDT [facility] MCH 21.8(L) 27.0 - 31.0 PG 04/26/2023 4:24 AM CDT [facility] MCHC 29.1(L) 33.0 - 36.0 G/DL 04/26/2023 4:24 AM CDT [facility] RDW 16.5(H) 11.5 - 14.5 % 04/26/2023 4:24 AM CDT [facility] PLT 452(H) 150 - 350 x10'3/uL 04/26/2023 4:24 AM CDT [facility] MPV 8.9 7.4 - 10.4 FL 04/26/2023 4:24 AM CDT [facility] ABS. NEUTROPHILS 3.70 1.60 - 8.30 x10'3/uL 04/26/2023 4:24 AM CDT [facility] ABS. LYMPHOCYTES 0.19(L) 0.80 - 4.70 x10'3/uL 04/26/2023 4:24 AM CDT [facility] ABS. MONOCYTES 0.96 0.00 - 1.50 x10'3/uL 04/26/2023 4:24 AM T [facility] ABS. EOSINOPHILS 0.13 0.00 - 0.40 x10'3/uL 04/26/2023 4:24 AM T [facility] ABS. BASOPHILS 0.02 0.00 - 0.20 x10'3/uL 04/26/2023 4:24 AM CDT [facility] ABS. IMMATURE GRANULOCYTES 0.08(H) 0.00 - 0.03 x10'3/uL 04/26/2023 4:24 AM T [facility] ABS. NUCLEATED RBC'S 0.00 0.0 x10'3/uL 04/26/2023 4:24 AM T [facility] 04/26/2023 3:14 AM CDT Bryce Parks MD LABORATORY Final Result [facility] [address] [place] [address], [id number] * (ABNORMAL) COMPREHENSIVE METABOLIC PANEL (04/26/2023 3:14 AM CDT) [facility] SODIUM S/P/B 134(L) 136 - 145 MMOL/L 04/26/2023 4:54 AM CDT [facility] POTASSIUM S/P/B 4.1 3.5 - 5.1 MMOL/L 04/26/2023 4:54 AM CDT [facility] CHLORIDE S/P/B 101 98 - 107 MMOL/L 04/26/2023 4:54 AM CDT [facility] CO2 31.0 21.0 - 32.0 MMOL/L 04/26/2023 4:54 AM CDT [facility] GLUCOSE 93 74 - 106 MG/DL 04/26/2023 4:54 AM CDT [facility] BUN 19(H) 7 - 18 MG/DL 04/26/2023 4:54 AM CDT [facility] CREATININE S/P/B 1.14 0.70 - 1.30 MG/DL 04/26/2023 4:54 AM CDT [facility] CALCIUM S/P/B 10.3(H) 8.5 - 10.1 MG/DL 04/26/2023 4:54 AM CDT [facility] BILIRUBIN TOTAL S/P/B 0.7 0.2 - 1.0 MG/DL 04/26/2023 4:54 AM CDT [facility] ALKALINE PHOSPHATASE S/P/B 322(H) 45 - 115 U/L 04/26/2023 4:54 AM CDT [facility] AST 12(L) 15 - 37 U/L 04/26/2023 4:54 AM CDT [facility] ALT 10(L) 16 - 61 U/L 04/26/2023 4:54 AM CDT [facility] TOTAL PROTEIN S/P/B 6.0(L) 6.4 - 8.2 G/DL 04/26/2023 4:54 AM CDT [facility] ALBUMIN S/P/B 1.7(L) 3.4 - 5.0 G/DL 04/26/2023 4:54 AM CDT [facility] ANION GAP 2.0(L) 5.0 - 15.0 MMOL/L 04/26/2023 4:54 AM CDT [facility] OSMOLALITY (CALC) 280 MOSM/KG 023 4:54 AM T [facility] Comment:REFERENCE RANGE NOT ESTABLISHED GFR ESTIMATE 87(L) >90 ML/MIN/1. 73 M2 04/26/2023 4:54 AM CDT [facility] GFR NOTES GFR REFERENCE S: 04/26/2023 4:54 AM CDT [facility] Comment: THE ESTIMATED GFR IS CALCULATED [...] ml/min/1.73 m2 G5,KIDNEY FAILURE: <15 ml/min/1.73 m2 04/26/2023 3:14 AM CDT Byrce Parks MD LABORATORY Final Result [facility] [address] [place] [address], [place] [phone] * (ABNORMAL) IMMUNOGLOBULINS IGA IGG IGM (04/26/2023 3:14 AM CDT) IGA 253.0 70.0 - 400.0 MG/DL 04/26/2023 4:54 AM CDT [facility] IGG 919.0 700.0 - 1,600.0 MG/DL 04/26/2023 4:54 AM CDT [facility] IGM 36.8(L) 40.0 - 230.0 MG/DL 04/26/2023 4:54 AM CDT [facility] 04/26/2023 3:14 AM CDT Brianna Francis DO LABORATORY Final Result Performing Organization Address City/State/[facility] Co de Phone Number [facility] [address] [place] [phone], [phone] * (ABNORMAL) PROTEIN, ELECTROPHORESIS (04/26/2023 3:14 AM CDT) Pathologist [facility] TOTAL PROTEIN (ELECTROPHORESIS SERUM) 5.2(L) 6.0 - 8.3 G/DL 04/26/2023 11:11 AM CDT [facility] ALBUMIN ELECTROPHORESIS S/P/B 2.0(L) 3.4 - 4.9 G/DL 04/26/2023 11:10 AM CDT [facility] [id number] S/P/B 0.7(H) 0.2 - 0.4 G/DL 04/26/2023 11:10 AM CDT [facility] [id number] S/P/B 1.0 0.4 - 1.0 G/DL 04/26/2023 11:10 AM CDT [facility] BETA GLOBULIN S/P/B 0.8 0.5 - 1.2 G/DL 04/26/2023 11:10 AM CDT [facility] GAMMA GLOBULIN S/P/B 0.7 0.6 - 1.6 G/DL 04/26/2023 11:10 AM CDT [facility] ELECTROPHORESIS INTERPRETATION THIS SERUM PEP WAS INTERPRETED BY 04/27/2023 3:51 PM CDT [facility] Comment: DR SUPRIYA MADDEN THE TOTAL SERUM PROTEIN IS DECREASED. ELECTROPHORESIS IDENTIFIES DECREASED ALBUMIN WITH A MILD ELEVATION IN ALPHA 1 GLOBULINS (ACUTE PHASE REACTION). MONOCLONAL PROTEINS ARE NOT DETECTED. 04/26/2023 3:14 AM CDT Brianna Francis DO LABORATORY Final Result Performing Organization Address [facility] de Phone Number [facility] [address] [place] [address], [phone] * (ABNORMAL) PROTEIN ELECTROPHORESIS URINE RANDOM (04/25/2023 8:00 PM CDT) Pathologist [facility] PROTEIN URINE TOTAL RANDOM 50.1(H) <12.0 MG/DL 04/26/2023 11:11 AM CDT [facility] INTERPRETATION THIS URINE PEP WAS INTERPRETED BY 04/27/2023 3:51 PM CDT [facility] Comment: DR SUPRIYA MADDEN THERE IS MILD RANDOM PROTEINURIA WHICH IS MAINLY ALBUMIN AND MUCOPROTEIN. BENCE BARRIENTOS PROTEIN IS NOT DETECTED. URINE SPECIMEN / Unknown 04/25/2023 8:00 PM CDT Brianna Francis DO URINE ORDERABLES Final Result Performing Organization Address [facility] de Phone Number [facility] [address] [place] [address], [place] [phone] * (ABNORMAL) CBC W/DIFF AUTOMATED (04/25/2023 7:37 PM CDT) WBC 5.32 4.00 - 10.80 x10'3/uL 04/25/2023 7:55 PM CDT [facility] RBC 3.31(L) 4.50 - 6.10 x10'6/uL 04/25/2023 7:55 PM CDT [facility] HGB 7.2(L) 13.0 - 18.0 G/DL 04/25/2023 7:55 PM CDT [facility] HCT 24.7(L) 37.0 - 52.0 % 04/25/2023 7:55 PM CDT [facility] MCV 74.6(L) 78.0 - 100.0 FL 04/25/2023 7:55 PM CDT [facility] MCH 21.8(L) 27.0 - 31.0 PG 04/25/2023 7:55 PM CDT [facility] MCHC 29.1(L) 33.0 - 36.0 G/DL 04/25/2023 7:55 PM CDT [facility] RDW 16.3(H) 11.5 - 14.5 % 04/25/2023 7:55 PM CDT [facility] PLT 450(H) 150 - 350 x10'3/uL 04/25/2023 7:55 PM CDT [facility] MPV 8.5 7.4 - 10.4 FL 04/25/2023 7:55 PM CDT [facility] ABS. NEUTROPHILS 4.13 1.60 - 8.30 x10'3/uL 04/25/2023 7:55 PM CDT [facility] ABS. LYMPHOCYTES 0.19(L) 0.80 - 4.70 x10'3/uL 04/25/2023 7:55 PM CDT [facility] ABS. MONOCYTES 0.76 0.00 - 1.50 x10'3/uL 04/25/2023 7:55 PM CDT [facility] ABS. EOSINOPHILS 0.15 0.00 - 0.40 x10'3/uL 04/25/2023 7:55 PM CDT [facility] ABS. BASOPHILS 0.01 0.00 - 0.20 x10'3/uL 04/25/2023 7:55 PM CDT [facility] ABS. IMMATURE GRANULOCYTES 0.08(H) 0.00 - 0.03 x10'3/uL 04/25/2023 7:55 PM CDT [facility] ABS. NUCLEATED RBC'S 0.00 0.0 x10'3/uL 04/25/2023 7:55 PM CDT [facility] 04/25/2023 7:37 PM CDT Brianna Francis DO LABORATORY Final Result [facility] [address] [place] [address], [phone] * (ABNORMAL) COMPREHENSIVE METABOLIC PANEL (04/25/2023 7:37 PM CDT) Pathologist [facility] SODIUM S/P/B 136 136 - 145 MMOL/L 04/25/2023 8:15 PM CDT [facility] POTASSIUM S/P/B 4.2 3.5 - 5.1 MMOL/L 04/25/2023 8:15 PM CDT [facility] CHLORIDE S/P/B 100 98 - 107 MMOL/L 04/25/2023 8:15 PM CDT [facility] CO2 30.3 21.0 - 32.0 MMOL/L 04/25/2023 8:15 PM CDT [facility] GLUCOSE 115(H) 74 - 106 MG/DL 04/25/2023 8:15 PM CDT [facility] BUN 20(H) 7 - 18 MG/DL 04/25/2023 8:15 PM CDT [facility] CREATININE S/P/B 1.32(H) 0.70 - 1.30 MG/DL 04/25/2023 8:15 PM CDT [facility] CALCIUM S/P/B 11.0(H) 8.5 - 10.1 MG/DL 04/25/2023 8:15 PM T [facility] BILIRUBIN TOTAL S/P/B 0.9 0.2 - 1.0 MG/DL 04/25/2023 8:15 PM T [facility] ALKALINE PHOSPHATASE S/P/B 290(H) 45 - 115 U/L 04/25/2023 8:15 PM T [facility] AST 14(L) 15 - 37 U/L 04/25/2023 8:15 PM T [facility] ALT 12(L) 16 - 61 U/L 04/25/2023 8:15 PM T [facility] TOTAL PROTEIN S/P/B 6.3(L) 6.4 - 8.2 G/DL 04/25/2023 8:15 PM T [facility] ALBUMIN S/P/B 1.7(L) 3.4 - 5.0 G/DL 04/25/2023 8:15 PM T [facility] ANION GAP 5.7 5.0 - 15.0 MMOL/L 04/25/2023 8:15 PM T [facility] OSMOLALITY (CALC) 286 MOSM/KG 023 8:15 PM [facility] Comment:REFERENCE RANGE NOT ESTABLISHED GFR ESTIMATE 73(L) >90 ML/MIN/1. 73 M2 04/25/2023 8:15 PM T [facility] GFR NOTES GFR REFERENCE S: 04/25/2023 8:15 PM T [facility] Comment: THE ESTIMATED GFR IS CALCULATED [...] ml/min/1.73 m2 G5,KIDNEY FAILURE: <15 ml/min/1.73 m2 04/25/2023 7:37 PM CDT Brianna Francis DO LABORATORY Final Result Performing Organization Address [facility] Co de Phone Number [facility] [address] [place] [address], [phone] * POCT glucose (04/25/2023 4:08 PM CDT) GLUCOSE POC 73 70 - 109 04/25/2023 4:33 PM CDT [facility] 04/25/2023 4:08 PM CDT Bryce Parks MD POCT ORDERABLES - DEVICE Final R esult Performing Organization Address [facility] de Phone Number [facility] [address] [place] [address], [phone] * URIC ACID BLOOD (04/25/2023 3:21 PM CDT) URIC ACID 5.3 3.5 - 7.2 MG/DL 04/25/2023 3:55 PM CDT [facility] 04/25/2023 3:21 PM CDT Brianna Francis DO LABORATORY Final Result Performing Organization Address [facility] de Phone Number [facility] [address] [place] [address], [phone] * MRI CERV SPINE WO CON (04/25/2023 12:46 PM CDT) Anatomical Region Laterality Modality Spine Magnetic Resonan ce 04/26/2023 8:14 AM CDT Impressions 04/26/2023 9:03 AM CDT IMPRESSION: 1. ??Prominent anterior epidural soft tissue extending from C3 to C5 contributing to moderate spinal canal stenosis, as described above. Findings most likely represent extraosseous extension of malignancy into the anterior epidural space. Some limitation in detail given noncontrast technique. No adjacent cord signal abnormality. 2. ??Mild height loss of the C4 and C5 vertebral bodies with associated T2 hyperintense signal within body marrow could represent marrow replacing lesions and associated mild pathologic compression deformity. 3. ??Partially visualized heterogeneous marrow signal throughout the thoracic and lumbar spine. MR thoracic and lumbar spine with contrast could be beneficial for further characterization. 4. ??Persistent rounded opacification involving the right upper lobe when compared with the prior chest exam from 12/15/2022. Dedicated repeat CT chest exam with contrast could be beneficial for further characterization of the rounded consolidative opacification, given the patient's history of malignancy 5. ??Small left pleural effusion. Ordered By: BARBY STEVENS III Interpreted By: Jewel Shaver MD, 04/26/2023 8:14 AM Narrative 04/26/2023 9:03 AM CDT Examination: MRI CERV SPINE WO CON, 04/26/2023 8:15 AM. Technique: Multiplanar multisequence magnetic resonance images of the cervical spine were obtained without intravenous contrast. Clinical history: Metastatic Hodgkin lymphoma Comparison: CT soft tissue neck 10/27/2022 Findings: The cervical vertebral bodies and facets are well aligned. Mild age indeterminate compression deformity involving the C4 and to a lesser extent the C5 vertebral bodies. The cervical vertebral body heights otherwise are preserved. There is T2 hyperintense signal within the C4 and C5 vertebral bodies suggestive of marrow replacing lesions. There is suggestion of fullness with intrinsic T1 hyperintense signal involving the anterior epidural space extending from C3 to C5. No abnormal cord signal. There is a 4.3 cm right upper lobe focal consolidation present best seen on series 13 image 79). Heterogeneous marrow signal throughout the thoracic and lumbar spine, partially visualized on extensive card mounter imaging. Small left pleural effusion. C2-3: No significant spinal canal or neural foraminal stenosis. C3-4: Prominent anterior epidural soft tissue compressing the ventral thecal sac. Moderate spinal canal stenosis. Uncovertebral joint hypertrophy. Mild left neural foraminal stenosis. No right neural foraminal stenosis. C4-5: Prominent anterior epidural soft tissue compressing the ventral thecal sac. Moderate spinal canal stenosis. Uncovertebral joint hypertrophy. Mild to moderate left neural foraminal stenosis. C5-6: No significant spinal canal or neural foraminal stenosis. C6-7: No significant spinal canal stenosis. Uncovertebral joint hypertrophy. Mild bilateral neural foraminal stenosis. C7-T1: No significant spinal canal or neural foraminal stenosis. Procedure Note Jewel Shaver MD - 04/26/2023 Examination: MRI CERV SPINE WO CON, 04/26/2023 8:15 AM. Technique: Multiplanar multisequence magnetic resonance images of thecervical spine were obtained without intravenous contrast. Clinical history: Metastatic Hodgkin lymphoma Comparison: CT soft tissue neck 10/27/2022 Findings: The cervical vertebral bodies and facets are well aligned. Mild ageindeterminate compression deformity involving the C4 and to a lesserextent the C5 vertebral bodies. The cervical vertebral body heightsotherwise are preserved. There is T2 hyperintense signal within the C4 andC5 vertebral bodies suggestive of marrow replacing lesions. There issuggestion of fullness with intrinsic T1 hyperintense signal involving theanterior epidural space extending from C3 to C5. No abnormal cord signal.There is a 4.3 cm right upper lobe focal consolidation present best seenon series 13 image 79). Heterogeneous marrow signal throughout thethoracic and lumbar spine, partially visualized on extensive scoutimaging. Small left pleural effusion. C2-3: No significant spinal canal or neural foraminal stenosis. C3-4: Prominent anterior epidural soft tissue compressing the ventralthecal sac. Moderate spinal canal stenosis. Uncovertebral jointhypertrophy. Mild left neural foraminal stenosis. No right neuralforaminal stenosis. C4-5: Prominent anterior epidural soft tissue compressing the ventralthecal sac. Moderate spinal canal stenosis. Uncovertebral jointhypertrophy. Mild to moderate left neural foraminal stenosis. C5-6: No significant spinal canal or neural foraminal stenosis. C6-7: No significant spinal canal stenosis. Uncovertebral jointhypertrophy. Mild bilateral neural foraminal stenosis. C7-T1: No significant spinal canal or neural foraminal stenosis. IMPRESSION: 1. Prominent anterior epidural soft tissue extending from C3 to [id number] to moderate spinal canal stenosis, as described above.Findings most likely represent extraosseous extension of malignancy intothe anterior epidural space. Some limitation in detail given noncontrasttechnique. No adjacent cord signal abnormality. 2. Mild height loss of the C4 and C5 vertebral bodies with associated [id number] signal within body marrow could represent marrow replacinglesions and associated mild pathologic compression deformity. 3. Partially visualized heterogeneous marrow signal throughout thethoracic and lumbar spine. MR thoracic and lumbar spine with contrastcould be beneficial for further characterization. 4. Persistent rounded opacification involving the right upper lobe whencompared with the prior chest exam from 12/15/2022. Dedicated repeat CTchest exam with contrast could be beneficial for further characterizationof the rounded consolidative opacification, given the patient's history ofmalignancy 5. Small left pleural effusion. Ordered By: BARBY STEVENS III Interpreted By: Jewel Shaver MD, 04/26/2023 8:14 AM us Barby Stevens III, MD MRI Final R esult * MRI BRAIN WO CON (04/25/2023 12:34 PM CDT) Anatomical Region Laterality Modality Head Magnetic Resonan ce 04/25/2023 7:53 PM CDT Impressions 04/25/2023 7:56 PM CDT IMPRESSION: 1. ??No acute intracranial abnormality allowing for mild to moderate motion and rotation of the exam. 2. ??Indeterminate prominent anterior epidural soft tissue thickening at the C4 level within the cervical spinal canal. ??Attention on MRI cervical spine exam recommended for further characterization. 3. ??Diffuse T1 hypointense marrow signal that may be related to marrow replacement from underlying malignancy. Referred By: PROVIDER NON-STAFF Interpreted By: Jewel Shaver MD, 04/25/2023 7:53 PM Narrative 04/25/2023 7:56 PM CDT EXAMINATION: MRI BRAIN WO CON, 04/25/2023 7:53 PM TECHNIQUE: Multiplanar multisequence magnetic resonance images of the brain were obtained without intravenous contrast. HISTORY: Metastatic Hodgkin lymphoma COMPARISON: CT head 12/15/2022 FINDINGS: Mild to moderate motion evaluation the examination. ??No restricted diffusion to suggest an acute infarction. ??There is hemorrhagic focus of susceptibility. ??Preserved villagomez-white matter differentiation. ??The sellar, callosal, pineal and craniovertebral junction regions appear within normal limits. ??Suggestion of anterior epidural soft tissue thickening involving the C3-4 spinal canal (on series 5 image 17). ??T1 hypointense marrow signal seen throughout the osseous structures that may be related to marrow replacement No extra-axial fluid collection. ??The ventricles are normal in size. ??The basal cisterns appear normal. ??The proximal intracranial arterial flow voids are normal appearance. ??Orbital contents appear normal. ??The nasal sinuses and mastoid air cells are well-aerated. Procedure Note Jewel Shaver MD - 04/25/2023 EXAMINATION: MRI BRAIN WO CON, 04/25/2023 7:53 PM TECHNIQUE: Multiplanar multisequence magnetic resonance images of thebrain were obtained without intravenous contrast. HISTORY: Metastatic Hodgkin lymphoma COMPARISON: CT head 12/15/2022 FINDINGS: Mild to moderate motion evaluation the examination. Norestricted diffusion to suggest an acute infarction. There is hemorrhagicfocus of susceptibility. Preserved villagomez-white matter differentiation.The sellar, callosal, pineal and craniovertebral junction regions appearwithin normal limits. Suggestion of anterior epidural soft tissuethickening involving the C3-4 spinal canal (on series 5 image 17). [id number] marrow signal seen throughout the osseous structures that maybe related to marrow replacement No extra-axial fluid collection. The ventricles are normal in size. Thebasal cisterns appear normal. The proximal intracranial arterial flowvoids are normal appearance. Orbital contents appear normal. The nasalsinuses and mastoid air cells are well-aerated. IMPRESSION: 1. No acute intracranial abnormality allowing for mild to moderate motionand rotation of the exam. 2. Indeterminate prominent anterior epidural soft tissue thickening atthe C4 level within the cervical spinal canal. Attention on MRI cervicalspine exam recommended for further characterization. 3. Diffuse T1 hypointense marrow signal that may be related to marrowreplacement from underlying malignancy. Referred By: PROVIDER NON-STAFF Interpreted By: Jewel Shaver MD, 04/25/2023 7:53 PM Barby Stevens III, MD MRI Final R esult * (ABNORMAL) COMPREHENSIVE METABOLIC PANEL (04/25/2023 11:06 AM CDT) SODIUM S/P/B 134(L) 136 - 145 MMOL/L 04/25/2023 11:52 AM CDT [facility] POTASSIUM S/P/B 4.6 3.5 - 5.1 MMOL/L 04/25/2023 11:52 AM CDT [facility] CHLORIDE S/P/B 100 98 - 107 MMOL/L 04/25/2023 11:52 AM CDT [facility] CO2 31.0 21.0 - 32.0 MMOL/L 04/25/2023 11:52 AM CDT [facility] GLUCOSE 75 74 - 106 MG/DL 04/25/2023 11:52 AM CDT [facility] BUN 20(H) 7 - 18 MG/DL 04/25/2023 11:52 AM CDT [facility] CREATININE S/P/B 1.34(H) 0.70 - 1.30 MG/DL 04/25/2023 11:52 AM CDT [facility] CALCIUM S/P/B 11.4(H) 8.5 - 10.1 MG/DL 04/25/2023 11:52 AM CDT [facility] BILIRUBIN TOTAL S/P/B 0.9 0.2 - 1.0 MG/DL 04/25/2023 11:52 AM CDT [facility] ALKALINE PHOSPHATASE S/P/B 305(H) 45 - 115 U/L 04/25/2023 11:52 AM CDT [facility] AST 13(L) 15 - 37 U/L 04/25/2023 11:52 AM CDT [facility] ALT 11(L) 16 - 61 U/L 04/25/2023 11:52 AM CDT [facility] TOTAL PROTEIN S/P/B 6.3(L) 6.4 - 8.2 G/DL 04/25/2023 11:52 AM CDT [facility] ALBUMIN S/P/B 1.8(L) 3.4 - 5.0 G/DL 04/25/2023 11:52 AM CDT [facility] ANION GAP 3.0(L) 5.0 - 15.0 MMOL/L 04/25/2023 11:52 AM CDT [facility] OSMOLALITY (CALC) 279 MOSM/KG 023 11:52 AM CDT [facility] Comment:REFERENCE RANGE NOT ESTABLISHED GFR ESTIMATE 71(L) >90 ML/MIN/1. 73 M2 04/25/2023 11:52 AM CDT [facility] GFR NOTES GFR REFERENCE S: 04/25/2023 11:52 AM CDT [facility] Comment: THE ESTIMATED GFR IS CALCULATED [...] ml/min/1.73 m2 G5,KIDNEY FAILURE: <15 ml/min/1.73 m2 04/25/2023 11:0 6 AM CDT us Brianna Francis DO LABORATORY Final Result [facility] [address] [place] [address], [id number] * (ABNORMAL) HAPTOGLOBIN, QUANT (04/25/2023 11:02 AM CDT) HAPTOGLOBIN 446.0(H) 30.0 - 200.0 MG/DL 04/25/2023 11:53 AM CDT [facility] 04/25/2023 11:0 2 AM CDT Brianna Higginsan LABORATORY Final Result Performing Organization Address [facility]/ZIP Co de Phone Number [facility] [address] [place] [address], [phone] * LDH, LACTATE DEHYDROGENASE (04/25/2023 11:02 AM CDT) Pathologist [facility] LDH [phone] - 241 UNITS/L 04/25/2023 11:53 AM CDT [facility] 04/25/2023 11:0 2 AM CDT [facility] Final Result Performing Organization Address [facility] de Phone Number [facility] [address] [place] [address], [phone] * (ABNORMAL) RETICULOCYTE CT, AUTO (04/25/2023 11:02 AM CDT) % RETICULOCYTE COUNT 2.3 0.7 - 2.3 % 04/25/2023 11:21 AM CDT [facility] ABSOLUTE RETICULOCYTE 0.07 0.03 - 0.11 x10'6/uL 04/25/2023 11:21 AM CDT [facility] IMMATURE RETIC FRACTION 22.2(H) 2.3 - 13.4 % 04/25/2023 11:21 AM CDT [facility] RETIC HGB 19.8(L) 28.0 - 35.0 PG 04/25/2023 11:21 AM CDT [facility] 04/25/2023 11:0 2 AM CDT us Brianna Francis DO LABORATORY Final Result Performing Organization Address [facility] Co de Phone Number [facility] [address] [place] [address], [place] [phone] * (ABNORMAL) FERRITIN (04/25/2023 11:02 AM CDT) FERRITIN 1,311.0(H) 26.0 - 388.0 NG/ML 04/25/2023 11:53 AM CDT [facility] 04/25/2023 11:0 2 AM CDT us Brianna Francis DO LABORATORY Final Result Performing Organization Address [facility] de Phone Number [facility] [address] [place] [address], [phone] * (ABNORMAL) IRON SATURATION PANEL (FE,IBC,%SAT) (04/25/2023 11:02 AM CDT) IRON 16(L) 65 - 175 MCG/DL 04/25/2023 11:53 AM CDT [facility] IRON BINDING CAPACITY 167(L) 250 - 450 MCG/DL 04/25/2023 11:53 AM CDT [facility] IRON SATURATION 10 % 11:53 AM CDT [facility] Comment:REFERENCE RANGE NOT ESTABLISHED 04/25/2023 11:0 2 AM CDT us Reed Francis DO LABORATORY Final Result Performing Organization Address [facility] Co de Phone Number [facility] [address] [place] [address], [place] [phone] * PHOSPHORUS, INORGANIC PHOSPHATE (04/25/2023 11:02 AM CDT) PHOSPHORUS 4.5 2.5 - 4.9 MG/DL 04/25/2023 11:53 AM CDT [facility] 04/25/2023 11:0 2 AM CDT us Brianna Francis DO LABORATORY Final Result [facility] [address] [place] [address], [id number] * (ABNORMAL) HEPATIC FUNCTION PANEL (04/25/2023 11:02 AM CDT) Pathologist [facility] BILIRUBIN TOTAL S/P/B 1.0 0.2 - 1.0 MG/DL 04/25/2023 11:53 AM CDT [facility] BILIRUBIN DIRECT S/P/B 0.6(H) 0.0 - 0.2 MG/DL 04/25/2023 11:53 AM CDT [facility] ALKALINE PHOSPHATASE S/P/B 301(H) 45 - 115 U/L 04/25/2023 11:53 AM CDT [facility] AST 11(L) 15 - 37 U/L 04/25/2023 11:53 AM CDT [facility] ALT 11(L) 16 - 61 U/L 04/25/2023 11:53 AM CDT [facility] TOTAL PROTEIN S/P/B 6.3(L) 6.4 - 8.2 G/DL 04/25/2023 11:53 AM CDT [facility] ALBUMIN S/P/B 1.8(L) 3.4 - 5.0 G/DL 04/25/2023 11:53 AM CDT [facility] 04/25/2023 11:0 2 AM CDT us Brianna Francis DO LABORATORY Final Result [facility] [address] [place] [address], [place] [phone] * (ABNORMAL) SED RATE, ERYTHROCYTE (ESR,WSR) (04/25/2023 11:02 AM CDT) ESR 43(H) 0 - 15 MM/HR 04/25/2023 12:04 PM CDT [facility] 04/25/2023 11:0 2 AM CDT Brianna Francis DO LABORATORY Final Result Performing Organization Address [facility] Co de Phone Number [facility] [address] [place] [address], [phone] * POCT glucose (04/25/2023 5:54 AM CDT) GLUCOSE POC 74 70 - 109 04/25/2023 5:56 AM CDT [facility] 04/25/2023 5:54 AM CDT us Barby Stevens III, MD POCT ORDERABLES - DEVIC E Final Result Performing Organization Address [facility] de Phone Number [facility] [address] [place] [address], [place] [phone] * RBC MORPHOLOGY (04/25/2023 2:52 AM CDT) RBC MORPHOLOGY ANISOCYTOSIS 04/25/20 4:13 AM CDT [facility] Comment: SLIGHT POLYCHROMASIA SLIGHT POIKILOCYTOSIS MODERATE OVALOCYTES SPHEROCYTES MICROCYTOSIS MARKED HYPOCHROMASIA MODERATE 04/25/2023 2:52 AM CDT us Barby Stevens III, MD LABORATORY Final R esult Performing Organization Address [facility] Co de Phone Number [facility] [address] [place] [address], [phone] * (ABNORMAL) BASIC METABOLIC PANEL (04/25/2023 2:52 AM CDT) SODIUM S/P/B 133(L) 136 - 145 MMOL/L 04/25/2023 3:40 AM CDT [facility] POTASSIUM S/P/B 4.8 3.5 - 5.1 MMOL/L 04/25/2023 3:40 AM CDT [facility] CHLORIDE S/P/B 99 98 - 107 MMOL/L 04/25/2023 3:40 AM CDT [facility] CO2 29.9 21.0 - 32.0 MMOL/L 04/25/2023 3:40 AM CDT [facility] GLUCOSE 77 74 - 106 MG/DL 04/25/2023 3:40 AM CDT [facility] BUN 21(H) 7 - 18 MG/DL 04/25/2023 3:40 AM CDT [facility] CREATININE S/P/B 1.34(H) 0.70 - 1.30 MG/DL 04/25/2023 3:40 AM CDT [facility] CALCIUM S/P/B 11.4(H) 8.5 - 10.1 MG/DL 04/25/2023 3:40 AM CDT [facility] ANION GAP 4.1(L) 5.0 - 15.0 MMOL/L 04/25/2023 3:40 AM CDT [facility] OSMOLALITY (CALC) 278 MOSM/KG 023 3:40 AM CDT [facility] Comment:REFERENCE RANGE NOT ESTABLISHED GFR ESTIMATE 71(L) >90 ML/MIN/1. 73 M2 04/25/2023 3:40 AM CDT [facility] GFR NOTES GFR REFERENCE S: 04/25/2023 3:40 AM CDT [facility] Comment: THE ESTIMATED GFR IS CALCULATED [...] ml/min/1.73 m2 G5,KIDNEY FAILURE: <15 ml/min/1.73 m2 04/25/2023 2:52 AM CDT Barby Stevens III, MD LABORATORY Final R esult [facility] [address] [place] [address], [id number] * (ABNORMAL) CBC W/DIFF AUTOMATED (04/25/2023 2:52 AM CDT) WBC 6.09 4.00 - 10.80 x10'3/uL 04/25/2023 3:28 AM CDT [facility] RBC 3.25(L) 4.50 - 6.10 x10'6/uL 04/25/2023 3:28 AM CDT [facility] HGB 7.0(L) 13.0 - 18.0 G/DL 04/25/2023 3:28 AM CDT [facility] HCT 25.0(L) 37.0 - 52.0 % 04/25/2023 3:28 AM CDT [facility] MCV 76.9(L) 78.0 - 100.0 FL 04/25/2023 3:28 AM CDT [facility] MCH 21.5(L) 27.0 - 31.0 PG 04/25/2023 3:28 AM CDT [facility] MCHC 28.0(L) 33.0 - 36.0 G/DL 04/25/2023 3:28 AM CDT [facility] RDW 16.5(H) 11.5 - 14.5 % 04/25/2023 3:28 AM CDT [facility] PLT 484(H) 150 - 350 x10'3/uL 04/25/2023 3:28 AM CDT [facility] MPV 8.7 7.4 - 10.4 FL 04/25/2023 3:28 AM CDT [facility] ABS. NEUTROPHILS 4.33 1.60 - 8.30 x10'3/uL 04/25/2023 3:28 AM CDT [facility] ABS. LYMPHOCYTES 0.27(L) 0.80 - 4.70 x10'3/uL 04/25/2023 3:28 AM CDT [facility] ABS. MONOCYTES 1.13 0.00 - 1.50 x10'3/uL 04/25/2023 3:28 AM CDT [facility] ABS. EOSINOPHILS 0.23 0.00 - 0.40 x10'3/uL 04/25/2023 3:28 AM CDT [facility] ABS. BASOPHILS 0.03 0.00 - 0.20 x10'3/uL 04/25/2023 3:28 AM CDT [facility] ABS. IMMATURE GRANULOCYTES 0.10(H) 0.00 - 0.03 x10'3/uL 04/25/2023 3:28 AM CDT [facility] ABS. NUCLEATED RBC'S 0.00 0.0 x10'3/uL 04/25/2023 3:28 AM CDT [facility] 04/25/2023 2:52 AM CDT Barby Stevens III, MD LABORATORY Final R esult [facility] [address] [place] [address], [place] [phone] * (ABNORMAL) CALCIUM, IONIZED (04/24/2023 10:14 PM CDT) CALCIUM IONIZED 1.60(HH) 1.15 - 1.33 MMOL/L 04/24/2023 10:46 PM CDT [facility] Comment: CRITICAL RESULT, SPECIMEN DATE, TIME WERE READ BACK BY FREDDY NGUYỄN 2245 04.24.23 TO EG 04/24/2023 10:1 4 PM CDT us Barby Stevens III, MD LABORATORY Final R esult Performing Organization Address City/[facility]/ZIP Co de Phone Number [facility] [address] [place] [address], [place] [phone] * (ABNORMAL) CALCIUM (04/24/2023 10:14 PM CDT) CALCIUM S/P/B 11.8(H) 8.5 - 10.1 MG/DL 04/24/2023 10:51 PM CDT [facility] 04/24/2023 10:1 4 PM CDT us Barby Stevens III, MD LABORATORY Final R esult [facility] [address] [place] [address], [place] [phone] documented in this encounter Visit Diagnoses Diagnosis Leg weakness, bilateral- Primary Other musculoskeletal symptoms referable to limbs Non Hodgkin's lymphoma (CMS/HCC HHS/HCC) Other malignant lymphomas, unspecified site, extranodal and solid organ sites documented in this encounter Admitting Diagnoses Diagnosis Leg weakness, bilateral Other musculoskeletal symptoms referable to limbs Non Hodgkin's lymphoma (CMS/HCC HHS/HCC) Other malignant lymphomas, unspecified site, extranodal and solid organ sites documented in this encounter Administered Medications Inactive Administered Medications - up to 3 most recent administrations Medication Order MAR Action Action Date Dose Rate Site acetaminophen (TYLENOL) tablet 650 mg 650 mg, Oral, Every 4 hours PRN, Mild pain (Scale 1 - 3), Starting on 04/24/23 at 2146, Until Wed04/28/23 at 1111, Maximum dose of acetaminophen is 4000 mg from all sources in 24 hours. Given 04/27/2023 11:06 AM CDT 650 mg Given 04/27/2023 3:36 AM CDT 650 mg azithromycin (ZITHROMAX) tablet 500 mg 500 mg, Oral, Daily, 5 doses, First dose on Wed04/27/23 at 1200, Last dose on Wed05/01/23 at 1200, Monitor for AMS while on due to drug interaction increasing morphine half life may not need as many PRNS Given 04/27/2023 11:54 AM CDT 500 mg dexamethasone (DECADRON) injection 4 mg 4 mg, Intravenous, Every 6 hours, First dose on Wed04/27/23 at 1415, Until Discontinued, Administer slowly over 1-4 minutes. Given 04/28/2023 2:00 AM CDT 4 mg Given 04/27/2023 8:50 PM CDT 4 mg Given 04/27/2023 3:53 PM CDT 4 mg diphenhydrAMINE (BENADRYL) injection 25 mg 25 mg, Intravenous, Every 6 hours PRN, Itching, Starting on 04/24/23 at 2217, Until Wed04/28/23 at 1111, For IV administration, give no faster than 25 mg/min. doxycycline hyclate (VIBRA-TABS) tablet 100 mg 100 mg, Oral, Every 12 hours scheduled (2 times per day), First dose on Wed04/26/23 at 2100, Until Discontinued Given 04/27/2023 8:24 AM CDT 100 mg Given 04/26/2023 9:38 PM CDT 100 mg DULoxetine (CYMBALTA) capsule 60 mg 60 mg, Oral, Daily, First dose on Wed04/25/23 at 0900, Until Discontinued, Swallow capsule whole or it may be opened and the contents sprinkled on applesauce. Given 04/27/2023 8:24 AM CDT 60 mg Given 04/25/2023 8:32 AM CDT 60 mg gabapentin (NEURONTIN) capsule 300 mg 300 mg, Oral, 3 times daily, First dose on 04/25/23 at 0900, Until Discontinued Given 04/27/2023 8:49 PM CDT 300 mg Given 04/27/2023 3:54 PM CDT 300 mg Given 04/27/2023 8:24 AM CDT 300 mg gadoterate meglumine (DOTAREM) 5 MMOL/10ML injection 14 mL 14 mL, Intravenous, IMG once as needed, Contrast, Contrast, 1 dose, Starting on 04/26/23 at 2204, Until 04/26/23 at 2205 Given 04/26/2023 10:05 PM CDT 14 mLs heparin (porcine) injection 5,000 Units 5,000 Units, Subcutaneous, Every 12 hours scheduled (2 times per day), First dose on 04/24/23 at 2215, Until Discontinued Given 04/26/2023 9:06 AM CDT 5,000 Units Left Lower Abdomen Given 04/25/2023 9:04 PM CDT 5,000 Units R ight Lower Abdomen Given 04/25/2023 8:32 AM CDT 5,000 Units L eft Lower Abdomen HYDROcodone-acetaminophen (NORCO) 5-325 MG tablet 1 tablet 1 tablet, Oral, Every 4 hours PRN, Moderate pain (Scale 4 - 7), Starting on 04/24/23 at 2146, Until 04/28/23 at 1111, Maximum dose of acetaminophen is 4000 mg from all sources in 24 hours. Given 04/26/2023 3:14 PM CDT 1 tablet Given 04/26/2023 6:33 AM CDT 1 tablet HYDROmorphone (DILAUDID) injection 1 mg 1 mg, Intravenous, Every 3 hours PRN, Severe pain (Scale 8 - 10), Starting on 04/24/23 at 2217, Until 04/25/23 at 1018, Administer slowly over at least 2-3 minutes. Given 04/24/2023 11:13 PM CDT 1 mg hydrOXYzine (ATARAX) tablet 25 mg 25 mg, Oral, 3 times daily PRN, Anxiety, Starting on 04/25/23 at 1019, Until 04/28/23 at 1111 Given 04/25/2023 9:02 PM CDT 25 mg iopamidol (ISOVUE-370) 76 % injection 100 mL 100 mL, Intravenous, IMG once as needed, Contrast, 1 dose, Starting on 04/26/23 at 1513, Until 04/26/23 at 1513 Given 04/26/2023 3:13 PM CDT 100 mLs lidocaine (XYLOCAINE) 1 % injection SOLN 10 mL 10 mL, Intradermal, Once, 1 dose, On Tu04/27/23 at 1115 Given 04/27/2023 10:47 AM CDT 10 mLs Other LORazepam (ATIVAN) injection 1 mg 1 mg, Intravenous, Every 4 hours PRN, Anxiety, Starting on 04/24/23 at 2217, Until 04/25/23 at 1018, For IV use, further dilute with an equal volume of saline. Do not exceed a rate of 2 mg/min. Given 04/25/2023 8:33 AM CDT 1 mg LORazepam (ATIVAN) injection 1 mg 1 mg, Intravenous, Once as needed, Sedation, prior CT sim radiation, 1 dose, Starting on Wed04/27/23 at 1140, Until Wed04/27/23 at 1339, For IV use, further dilute with an equal volume of saline. Do not exceed a rate of 2 mg/min. Given 04/27/2023 1:39 PM CDT 1 mg morphine CR (MS CONTIN) tablet 30 mg 30 mg, Oral, 2 times daily, First dose on 04/25/23 at 0900, Until Discontinued, Do not break, chew, or crush. Given 04/28/2023 8:47 AM CDT 30 mg Given 04/27/2023 8:49 PM CDT 30 mg Given 04/27/2023 8:24 AM CDT 30 mg morphine injection 4 mg 4 mg, Intravenous, Every 3 hours PRN, Severe pain (Scale 8 - 10), 2nd line, Starting on 04/25/23 at 1017, Until Wed04/28/23 at 1111 Given 04/27/2023 11:09 AM CDT 4 mg Given 04/27/2023 3:26 AM CDT 4 mg naLOXone (NARCAN) injection 0.4 mg 0.4 mg, Intravenous, As needed, Opioid reversal, Starting on 04/24/23 at 2146, Until Wed04/28/23 at 1111 nicotine (NICODERM CQ) 21 MG/24HR patch 21 mg 21 mg (1 patch), Transdermal, Administer over 24 Hours, Every 24 hours, First dose on 04/25/23 at 0300, Until Discontinued Patch Applied 04/28/2023 2:00 AM CDT 21 mg Right Shoulder Patch Applied 04/27/2023 3:29 AM CDT 21 mg Left Arm Patch Applied 04/26/2023 3:20 AM CDT 21 mg Left Arm normal saline 0.9 % flush 3-10 mL 3-10 mL, Intravenous, Every 8 hours, First dose on 04/24/23 at 2215, Until Discontinued Given 04/27/2023 8:50 PM CDT 10 mLs Given 04/27/2023 5:28 AM CDT 10 mLs Given 04/26/2023 9:39 PM CDT 10 mLs normal saline 0.9 % flush 3-10 mL 3-10 mL, Intravenous, As needed, Line care, Starting on 04/24/23 at 2146, Until Wed04/28/23 at 1111 ondansetron (ZOFRAN) injection 4 mg 4 mg, Intravenous, Every 8 hours PRN, Nausea, Vomiting, Starting on 04/24/23 at 2146, Until 04/28/23 at 1111, IV push over 2-5 minutes. Given 04/24/2023 10:46 PM CDT 4 mg pantoprazole (PROTONIX) 40 mg in sodium chloride (PF) 0.9 % 10 mL IV 40 mg, Intravenous, Daily, First dose on 04/26/23 at 1130, Until Discontinued, Reconstitute each 40 mg vial with 10 mL normal saline to a final concentration of 4 mg/mL. Administer intravenously over a period of a least 2 minutes. Given 04/27/2023 8:24 AM CDT 40 mg Given 04/26/2023 12:04 PM CDT 40 mg pantoprazole (PROTONIX) 40 mg in sodium chloride (PF) 0.9 % 10 mL IV 40 mg, Intravenous, 2 times daily, First dose (after last modification) on Wed04/27/23 at 2100, Until Discontinued, Reconstitute each 40 mg vial with 10 mL normal saline to a final concentration of 4 mg/mL. Administer intravenously over a period of a least 2 minutes. Given 04/27/2023 8:50 PM CDT 40 mg piperacillin-tazobactam (ZOSYN) 3.375 g in sodium chloride 0.9 % 50 mL IVPB 3.375 g, Intravenous, Administer over 30 Minutes, Once, 1 dose, On 04/26/23 at 1800, Administer over 30 minutes. New Bag 04/26/2023 5:56 PM CDT 3.375 g 100 mL/hr piperacillin-tazobactam (ZOSYN) 3.375 g in sodium chloride 0.9 % 50 mL IVPB 3.375 g, Intravenous, Administer over 240 Minutes, Every 8 hours, First dose on 04/27/23 at 0000, Until Discontinued, Administer over 4 hours (extended infusion). New Bag 04/28/2023 12:43 AM CDT 3.375 g 12.5 mL/hr New Bag 04/27/2023 3:54 PM CDT 3.375 g 12.5 mL/hr New Bag 04/27/2023 8:24 AM CDT 3.375 g 12.5 mL/hr polyethylene glycol (GLYCOLAX) packet 17 g 17 g, Oral, Daily as needed, Constipation, Starting on 04/24/23 at 2146, Until 04/28/23 at 1111, If both senna and polyethylene glycol are ordered, use 1st; if no response by next dosing interval, go to next option. sodium chloride 0.9% infusion at 125 mL/hr, Intravenous, Continuous, Starting on 04/24/23 at 2215, Until 04/24/23 at 2311 New Bag 04/24/2023 10:19 PM CDT 125 mL/hr sodium chloride 0.9% infusion at 125 mL/hr, Intravenous, Continuous, Starting on 04/25/23 at 1330, Until 04/25/23 at 2118 New Bag 04/25/2023 9:09 PM CDT 125 mL/hr New Bag 04/25/2023 2:30 PM CDT 125 mL/hr sodium chloride 0.9% infusion at 125 mL/hr, Intravenous, Continuous, Starting on 04/25/23 at 2145, Until 04/28/23 at 1111 New Bag 04/27/2023 8:24 AM CDT 125 mL/hr New Bag 04/26/2023 4:45 AM CDT 125 mL/hr New Bag 04/25/2023 10:32 PM CDT 125 mL/hr sodium chloride 0.9% infusion at 10 mL/hr, Intravenous, Continuous, Starting on Wed04/26/23 at 0500, Until Wed04/27/23 at 0459, Infuse at TKO rate New Bag 04/26/2023 6:55 AM CDT 250 mLs 10 mL/hr vancomycin 1250 mg in NS 250 mL IVPB 1,250 mg, Intravenous, at 166.7 mL/hr, Once, 1 dose, On Wed04/27/23 at 1015 New Bag 04/27/2023 11:02 AM CDT 1,250 mg 166.7 mL/hr vancomycin 1250 mg in NS 250 mL IVPB 1,250 mg, Intravenous, at 166.7 mL/hr, Every 12 hours, First dose on Wed04/27/23 at 2300, Until Discontinued New Bag 04/27/2023 11:00 PM CDT 1,250 mg 166.7 mL/hr vancomycin pharmacy to dose placeholder Intravenous, See admin instructions, Starting on Wed04/27/23 at 0937, Until Wed04/28/23 at 1111, Vancomycin Placeholder Only: Do NOT document administrations on this placeholder.(Use medication on SEP to document administrations or contact pharmacy if medication order not entered.) zoledronic acid (ZOMETA) 3 mg in sodium chloride 0.9 % 100 mL IVPB 3 mg, Intravenous, Administer over 15 Minutes, Once, 1 dose, On Wed04/25/23 at 2200, HAZARDOUS MEDICATION: wear single chemotherapy approved gloves. New Bag 04/25/2023 10:30 PM CDT 3 mg 415 mL/hr documented in this encounter Active and Recently Administered Medications Times are shown in CDT. Scheduled Medication Order 04/26/2023 04/27/2023 04/28/2023 azithromycin (ZITHROMAX) tablet 500 mg 500 mg, Oral, Daily, 5 doses, First dose on Wed04/27/23 at 1200, Last dose on Wed05/01/23 at 1200, Monitor for AMS while on due to drug interaction increasing morphine half life may not need as many PRNS 1154 (Given - Provider: Verona Tuttle RN) dexamethasone (DECADRON) injection 4 mg 4 mg, Intravenous, Every 6 hours, First dose on Wed04/27/23 at 1415, Until Discontinued, Administer slowly over 1-4 minutes. 1553 (Given - Provider: Verona Tuttle RN)2049 (Given - Provider: Kevin Clifton RN) 020 (Given - Provider: Kevin Clifton RN)0815 (Canceled Entry - Provider: Automatic Discharge Provider - Comment: Automatically canceled at discontinue of medication order) doxycycline hyclate (VIBRA-TABS) tablet 100 mg (CANCELED) 100 mg, Oral, Every 12 hours scheduled (2 times per day), First dose on Wed04/26/23 at 2100, Until Discontinued 2137 (Given - Provider: Sugar Luna RN) 08 (Given - Provider: Verona Tuttle RN) DULoxetine (CYMBALTA) capsule 60 mg 60 mg, Oral, Daily, First dose on Wed04/25/23 at 0900, Until Discontinued, Swallow capsule whole or it may be opened and the contents sprinkled on applesauce. 09 (Not Given - Provider: Gavi Mejia, Nurse Student - Reason: Patient/family declined - Comment: He said to wait till after his scans to take med) 08 (Given - Provider: Verona Tuttle RN) 09 (Canceled Entry - Provider: Automatic Discharge Provider - Comment: Automatically canceled at discontinue of medication order) gabapentin (NEURONTIN) capsule 300 mg 300 mg, Oral, 3 times daily, First dose on Wed04/25/23 at 0900, Until Discontinued 902 (Given - Provider: Gavi Mejia, Nurse Student)151 (Given - Provider: Huma Chapin RN)1953 (Given - Provider: Sugar Luna RN) 0824 (Given - Provider: Verona Tuttle, DELMA)155 (Given - Provider: Verona Tuttle, DELMA)2048 (Given - Provider: Kevin Clifton RN) 0900 (Canceled Entry - Provider: Automatic Discharge Provider - Comment: Automatically canceled at discontinue of medication order) heparin (porcine) injection 5,000 Units (CANCELED)(Linked Group 1) 5,000 Units, Subcutaneous, Every 12 hours scheduled (2 times per day), First dose on Wed04/24/23 at 2215, Until Discontinued 0906 (Given - Provider: Gavi Mejia, Nurse Student) lidocaine (XYLOCAINE) 1 % injection SOLN 10 mL (COMPLETED) 10 mL, Intradermal, Once, 1 dose, On Wed04/27/23 at 1115 1047 (Given - Provider: Yeimi Larsen - Comment: RT GROIN) morphine CR (MS CONTIN) tablet 30 mg 30 mg, Oral, 2 times daily, First dose on Wed04/25/23 at 0900, Until Discontinued, Do not break, chew, or crush. 0904 (Given - Provider: Gavi Mejai, Nurse Student)213 (Given - Provider: Sugar Luna RN) 0824 (Given - Provider: Verona Tuttle RN)204 (Given - Provider: Kevin Clifton RN) 0847 (Given - Provider: Rosa Barrientos RN-) nicotine (NICODERM CQ) 21 MG/24HR patch 21 mg 21 mg (1 patch), Transdermal, Administer over 24 Hours, Every 24 hours, First dose on Wed04/25/23 at 0300, Until Discontinued 0320 (Patch Applied - Provider: Sugar Luna RN)0321 (Patch Removed - Provider: Sugar Luna RN) 0328 (Patch Removed - Provider: Sugar Luna RN)0329 (Patch Applied - Provider: Sugar Luna RN) 0150 (Patch Removed - Provider: Kevin Clifton RN)0200 (Patch Applied - Provider: Kevin Clifton RN)0911 (Due: Patch Removed - Provider: Automatic Discharge Provider - Comment: Time automatically adjusted from order being discontinued) normal saline 0.9 % flush 3-10 mL 3-10 mL, Intravenous, Every 8 hours, First dose on 04/24/23 at 2215, Until Discontinued 0706 (Given - Provider: Sugar Luna RN)1205 (Given - Provider: Huma Chapin RN)213 (Given - Provider: Sugar Luna RN) 0528 (Given - Provider: Sugar Luna RN)1247 (Not Given - Provider: Verona Tuttle RN - Reason: Other)2049 (Given - Provider: Kevin Clifton RN) 0433 (Not Given - Provider: Kevin Clifton RN - Reason: Other - Comment: infusing) pantoprazole (PROTONIX) 40 mg in sodium chloride (PF) 0.9 % 10 mL IV (CANCELED) 40 mg, Intravenous, Daily, First dose on Wed04/26/23 at 1130, Until Discontinued, Reconstitute each 40 mg vial with 10 mL normal saline to a final concentration of 4 mg/mL. Administer intravenously over a period of a least 2 minutes. 1204 (Given - Provider: Huma Chapin RN) 0824 (Given - Provider: Verona Tuttle, DELMA) pantoprazole (PROTONIX) 40 mg in sodium chloride (PF) 0.9 % 10 mL IV 40 mg, Intravenous, 2 times daily, First dose (after last modification) on Wed04/27/23 at 2100, Until Discontinued, Reconstitute each 40 mg vial with 10 mL normal saline to a final concentration of 4 mg/mL. Administer intravenously over a period of a least 2 minutes. 0 (Given - Provider: Kevin Clifton RN) 0900 (Canceled Entry - Provider: Automatic Discharge Provider - Comment: Automatically canceled at discontinue of medication order) piperacillin-tazobactam (ZOSYN) 3.375 g in sodium chloride 0.9 % 50 mL IVPB (COMPLETED) 3.375 g, Intravenous, Administer over 30 Minutes, Once, 1 dose, On Wed04/26/23 at 1800, Administer over 30 minutes. 1756 (New Bag - Provider: Huma Chapin RN)1840 (Infusion Stop Time - Provider: Huma Chapin RN) piperacillin-tazobactam (ZOSYN) 3.375 g in sodium chloride 0.9 % 50 mL IVPB 3.375 g, Intravenous, Administer over 240 Minutes, Every 8 hours, First dose on Wed04/27/23 at 0000, Until Discontinued, Administer over 4 hours (extended infusion). 2352 (New Bag - Provider: Sugar Luna RN) 0352 (Infusion Stop Time - Provider: Sugar Luna RN)0824 (New Bag - Provider: Verona Tuttle, DELMA)1224 (Infusion Stop Time - Provider: Verona Tuttle RN)1554 (New Bag - Provider: Verona Tuttle RN)1942 (Infusion Stop Time - Provider: Kevin Clifton RN) 0043 (New Bag - Provider: Kevin Clifton RN)0432 (Infusion Stop Time - Provider: Kevin Clifton RN)0800 (Canceled Entry - Provider: Automatic Discharge Provider - Comment: Automatically canceled at discontinue of medication order) vancomycin 1250 mg in NS 250 mL IVPB (COMPLETED) 1,250 mg, Intravenous, at 166.7 mL/hr, Once, 1 dose, On Wed04/27/23 at 1015 1102 (New Bag - Provider: Verona Tuttle, DELMA)1232 (Infusion Stop Time - Provider: Verona Tuttle, DELMA) vancomycin 1250 mg in NS 250 mL IVPB 1,250 mg, Intravenous, at 166.7 mL/hr, Every 12 hours, First dose on Wed04/27/23 at 2300, Until Discontinued 2300 (New Bag - Provider: Kevin Clifton RN) 0102 (Infusion Stop Time - Provider: Kevin Clifton RN)1100 (Canceled Entry - Provider: Automatic Discharge Provider - Comment: Automatically canceled at discontinue of medication order) vancomycin pharmacy to dose placeholder(Linked Group 2) Intravenous, See admin instructions, Starting on Wed04/27/23 at 0937, Until Wed04/28/23 at 1111, Vancomycin Placeholder Only: Do NOT document administrations on this placeholder.(Use medication on SEP to document administrations or contact pharmacy if medication order not entered.) Continuous Medication Order 04/26/2023 04/27/2023 04/28/2023 sodium chloride 0.9% infusion at 125 mL/hr, Intravenous, Continuous, Starting on Wed04/25/23 at 2145, Until Wed04/28/23 at 1111 0445 (New Bag - Provider: Sugar Luna RN) 0824 (New Bag - Provider: Verona Tuttle, DELMA) sodium chloride 0.9% infusion (CANCELED) at 10 mL/hr, Intravenous, Continuous, Starting on Wed04/26/23 at 0500, Until Wed04/27/23 at 0459, Infuse at TKO rate 0655 (New Bag - Provider: Sugar Luna RN) PRN Medication Order 04/26/2023 04/27/202304/2804/28/2023 acetaminophen (TYLENOL) tablet 650 mg 650 mg, Oral, Every 4 hours PRN, Mild pain (Scale 1 - 3), Starting on 04/24/23 at 2146, Until Wed04/28/23 at 1111, Maximum dose of acetaminophen is 4000 mg from all sources in 24 hours. 0336 (Given - Provider: Sugar Luna RN)1106 (Given - Provider: Verona Tuttle RN) diphenhydrAMINE (BENADRYL) injection 25 mg 25 mg, Intravenous, Every 6 hours PRN, Itching, Starting on 04/24/23 at 2217, Until Wed04/28/23 at 1111, For IV administration, give no faster than 25 mg/min. gadoterate meglumine (DOTAREM) 5 MMOL/10ML injection 14 mL (COMPLETED) 14 mL, Intravenous, IMG once as needed, Contrast, Contrast, 1 dose, Starting on Wed04/26/23 at 2204, Until Wed04/26/23 at 2205 2205 (Given - Provider: Fior Elam, RTR) HYDROcodone-acetaminophen (NORCO) 5-325 MG tablet 1 tablet 1 tablet, Oral, Every 4 hours PRN, Moderate pain (Scale 4 - 7), Starting on 04/24/23 at 2146, Until Wed04/28/23 at 1111, Maximum dose of acetaminophen is 4000 mg from all sources in 24 hours. 0633 (Given - Provider: Sugar Luna RN)1514 (Given - Provider: Huma Chapin RN) hydrOXYzine (ATARAX) tablet 25 mg 25 mg, Oral, 3 times daily PRN, Anxiety, Starting on 04/25/23 at 1019, Until Wed04/28/23 at 1111 iopamidol (ISOVUE-370) 76 % injection 100 mL (COMPLETED) 100 mL, Intravenous, IMG once as needed, Contrast, 1 dose, Starting on 04/26/23 at 1513, Until Wed04/26/23 at 1513 1513 (Given - Provider: Drea Ge, RTR) LORazepam (ATIVAN) injection 1 mg (COMPLETED) 1 mg, Intravenous, Once as needed, Sedation, prior CT sim radiation, 1 dose, Starting on Wed04/27/23 at 1140, Until Wed04/27/23 at 1339, For IV use, further dilute with an equal volume of saline. Do not exceed a rate of 2 mg/min. 1339 (Given - Provider: Verona Tuttle, RN) morphine injection 4 mg 4 mg, Intravenous, Every 3 hours PRN, Severe pain (Scale 8 - 10), 2nd line, Starting on 04/25/23 at 1017, Until Wed04/28/23 at 1111 0326 (Given - Provider: Sugar León V RN)1109 (Given - Provider: Verona Tuttle, DELMA) naLOXone (NARCAN) injection 0.4 mg 0.4 mg, Intravenous, As needed, Opioid reversal, Starting on 04/24/23 at 2146, Until Wed04/28/23 at 1111 normal saline 0.9 % flush 3-10 mL 3-10 mL, Intravenous, As needed, Line care, Starting on 04/24/23 at 2146, Until Wed04/28/23 at 1111 ondansetron (ZOFRAN) injection 4 mg 4 mg, Intravenous, Every 8 hours PRN, Nausea, Vomiting, Starting on 04/24/23 at 2146, Until Wed04/28/23 at 1111, IV push over 2-5 minutes. polyethylene glycol (GLYCOLAX) packet 17 g 17 g, Oral, Daily as needed, Constipation, Starting on 04/24/23 at 2146, Until Wed04/28/23 at 1111, If both senna and polyethylene glycol are ordered, use 1st; if no response by next dosing interval, go to next option. Linked Groups Order Group 1: heparin (porcine) injection 5,000 Units (CANCELED)Jump to med 5,000 Units, Subcutaneous, Every 12 hours scheduled (2 times per day), First dose on 04/24/23 at 2215, Until Discontinued And Moderate Risk for VTE (COMPLETED) Group 2: Pharmacy to dose vancomycin (CANCELED) Routine, Once, On Wed04/27/23 at 0938, For 1 occurrence, Indications: Fever/Sepsis And vancomycin pharmacy to dose placeholderJump to med Intravenous, See admin instructions, Starting on Wed04/27/23 at 0937, Until Wed04/28/23 at 1111, Vancomycin Placeholder Only: Do NOT document administrations on this placeholder.(Use medication on SEP to document administrations or contact pharmacy if medication order not entered.) documented in this encounter Additional Health Concerns Infection Onset Date Last Indicated Resolved Time 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
--- OUTSIDE RECORDS SUMMARY | 2024-06-25 06:49 | XMS_ITS | Encounter Summary ---
Author Organization [facility] Address [address] [place] [address]. [place] [address] [place] [address] Care Team Providers Care Electrotherapist Name Role Phone FeleciaCandido kincaid Primary Care Provider [phone] Ambrocio Ashford MD Unavailable [phone] Encounter Details Date Type Department Care Team (Latest Contact Info) Description 12/14/2022 Travel Social History Tobacco Use Types Packs/Day [...] week 04/14/2022 How often do you attend quaker or nondenominational serv ices? Never 04/14/2022 Do you belong to any clubs o r organizations such as quaker groups, unions, fraternal or athletic groups, or [...] move on to questions 3-9 0 04/14/2022 [facility] - Occupational [...] place to sleep or slept in a fdc (including now)? No 12/14/2022 Sex and Gender Information Value Date Recorded Sex Assigned at Not on file Legal Sex Male 5:44 PM [employer]LECT[employer] Gender Identity Male 04/14/2022 9:23 PM CDT Sexual Orientation Straight 04/14/2022 9: 23 PM CDT COVID-19 Exposure Response Date Recorded In the last 10 days, have yo u been in contact with someone who was confirmed or suspected to have Coronavirus/COVID-19? No / Unsure 12/14/2022 8:20 PM CDT documented as of this encounter Functional Status * Question Answer Date of Assessment Author Status Do you have serious difficulty walking or climbing stairs? No 12/14/2022 5:57 PM CDT Silvana Pichardo RN Ac tive * Question Answer Date of Assessment Author Status Do you have difficulty dressing or bathing? No 12/14/2022 5:57 PM CDT Silvana Pichardo R N Active Because of a physical, mental, or emotional condition, do you have difficulty doing errands alone such as visiting a doctor's office or shopping? No 12/14/2022 5:57 PM LIZBETHT Silvana Pichardo RN Act case * Are you deaf or do you have serious difficulty hearing Answer Date of Assessment Author Status No 12/14/2022 5:57 PM LIZBETHT Silvana Pichardo RN Active * Are you [...] difficulty concentrating, remembering, or making decisions? No 12/14/2022 5:57 PM CDT Silvana Pichardo R N Active * Because of a physical, mental, or emotional condition, do you have serious difficulty concentrating, remembering, or making decisions? Answer Entry Date Author Status No 12/14/2022 5:57 PM CDT Silvana Pichardo RN Active documented in this encounter Plan of Treatment Not on file documented as of this encounter Goals Goal Patient Goal Type Associated Problems Recent Progress Patient-Stated? Author Safety ? 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
--- OUTSIDE RECORDS SUMMARY | 2024-06-25 06:49 | XMS_ITS | Encounter Summary ---
Author Organization [facility] Address [address] [place] [address]. [place], [place] [id number] [place] [id number] Care Team Providers Care Oncology Account Specialist Name Role Phone FeleciaJay kincaid DO Primary Care Provider [phone] Ambrocio Ashford MD Unavailable [phone] Reason for Referral * Imaging (Urgent) - Closed Specialty Diagnoses / Procedures Referred By Contac t Referred To Contact RADIOLOGY Procedures XA [facility] POSS Kaycee Oliver MD Phone: tel: fax: Referral ID Status Reason Start Date Expiration Date Visits Re quested Visits Authorized [id number] Closed 12/17/2022 12/18/2023 1 1 * Imaging (Urgent) - Closed Specialty Diagnoses / Procedures Referred By Contac t Referred To Contact RADIOLOGY Procedures XA [facility] Cardiovascular ICU [address] [place] [address] Phone: tel: Referral ID Status Reason Start Date Expiration Date Visits Re quested Visits Authorized [id number] Closed 12/16/2022 12/17/2023 1 1 * Imaging (Emergency) - Closed Specialty Diagnoses / Procedures Referred By Contac t Referred To Contact RADIOLOGY Procedures USE ECHOCARDIOGRAM Estephanie Duran MD [address] [place] [address] Phone: tel: fax: Referral ID Status Reason Start Date Expiration Date Visits Re quested Visits Authorized [id number] Closed 12/15/2022 12/16/2023 1 1 * Imaging (Emergency) - Closed Specialty Diagnoses / Procedures Referred By Contac t Referred To Contact RADIOLOGY Procedures CTA CHEST+CT ABD+PEL W CON Estephanie Duran MD [address] [place] [address] Phone: tel: fax: Referral ID Status Reason Start Date Expiration Date Visits Re quested Visits Authorized [id number] Closed 12/15/2022 12/16/2023 1 1 * Imaging (Emergency) - Closed Specialty Diagnoses / Procedures Referred By Contac t Referred To Contact RADIOLOGY Procedures CT HEAD WO CON Estephanie Duran MD [address] [place] [address] Phone: tel: fax: Referral ID Status Reason Start Date Expiration Date Visits Re quested Visits Authorized [id number] Closed 12/15/2022 12/16/2023 1 1 * (Routine) - Closed Specialty Diagnoses / Procedures Referred By Contac t Referred To Contact Procedures PT eval and treat Lon Gauthier MD Referral ID Status Reason Start Date Expiration Date Visits Re quested Visits Authorized [id number] Closed 12/14/2022 12/15/2023 1 1 * (Routine) - Closed Specialty Diagnoses / Procedures Referred By Contac t Referred To Contact Procedures OT eval and treat Lon Gauthier MD Referral ID Status Reason Start Date Expiration Date Visits Re quested Visits Authorized [id number] Closed 12/14/2022 12/15/2023 1 1 Reason for Visit * Auth/Cert (Routine) Specialty Diagnoses / Procedures Referred By Contac t Referred To Contact Diagnoses Septic shock (CMS/HCC HHS/HCC) SEPTIC SHOCK Septic shock (CMS/HCC) Procedures GENERAL Lon Gauthier MD Referral ID Status Reason Start Date Expiration Date Visits Re quested Visits Authorized [id number] 1 1 Encounter Details Date Type Department Care Team (Late st Contact Info) Description 12/14/2022 5:12 PM CDT - 12/21/2022 11:31 AM CDT Hospital Encounter [facility] 4th Floor Medical [address] [place], [place] [id number] Lon Gauthier MD Shah, Arpan S, MD [address] [place], [place] [id number] Nicolle Leigh MD [address] [place], [place] [id number] Marcelino Ling MD [address] [place], [place] [id number] Benitez Pizano MD [address] [place], [place] [id number] Discharge Disposition: Home or Self Care (Routine [...] week 04/14/2022 How often do you attend hindu or jain serv ices? Never 04/14/2022 Do you belong to any clubs o r organizations such as hindu groups, unions, fraternal or athletic groups, or [...] move on to questions 3-9 0 04/14/2022 [facility] [place] of Occupat ional Health - Occupational Stress [...] place to sleep or slept in a fci (including now)? No 12/14/2022 Sex and Gender Information Value Date Recorded Sex Assigned at Not on file Legal Sex Male 5:44 PM [employer] Gender Identity Male 04/14/2022 9:23 PM CDT Sexual Orientation Straight 04/14/2022 9: 23 PM CDT COVID-19 Exposure Response Date Recorded In the last 10 days, have yo u been in contact with someone who was confirmed or suspected to have Coronavirus/COVID-19? No / Unsure 12/17/2022 9:52 AM CDT documented as of this encounter Last Filed Vital Signs Vital Sign Reading Time Taken Comments Blood Pressure 117/61 12/21/2022 7:56 AM CDT Pulse 91 12/21/2022 7:56 AM CDT Temperature 36.9 ??C (98.4 ??F) 12/21/2022 7:56 AM CD T Respiratory Rate 18 12/20/2022 8:33 AM CDT Oxygen Saturation 96% 12/21/2022 7:56 AM CDT Inhaled Oxygen Concentration - - Weight 73.9 kg (163 lb) 12/20/2022 5:07 AM CDT Height 167.6 cm (5' 6 ) 12/14/2022 5:37 PM CDT Body Mass Index 26.31 12/14/2022 5:37 PM CDT documented in this encounter Functional [...] office or shopping? No 12/14/2022 5:57 PM CDT Silvana Pichardo RN Act case * Are [...] PM LIZBETHT Silvana Pichardo RN Active * Because of a physical, mental, or emotional condition, do you have difficulty doing errands alone such as visiting a doctor's office or shopping? Answer Date of Assessment Author Status No 12/14/2022 5:57 PM Silvana Cavazos RN Active documented as of this encounter [...] Pichardo RN Active documented in this encounter Discharge Summaries * Benitez Pizano MD - 12/21/2022 9:44 AM CDT Patient ID: Crystal Capone [id number] 32-year-old 1990 Admit date: 12/14/2022 Expected Discharge Date: 12/21/2022 Primary care Physician: JAY NARAYANAN DO Admitting Physician: Benitez Pizano MD Discharge Physician: BENITEZ PIZANO MD Admission Diagnoses: Septic shock (CMS/HCC) [A41.9, R65.21] Discharge Diagnoses: Septic shock secondary to pneumonia Right upper lobe pneumonia Acute hypoxic respiratory failure-requiring intubation Stage IV NHL Pancytopenia, immunocompromise state Elevated Tropnin, likely Demand Ischemia Cardiomyopathy Past Medical History Past Medical History: Diagnosis Date Hodgkin lymphoma, unspecified, unspecified site (CMS/HCC) Past Surgical History: Procedure Laterality Date BIOPSY BONE BIOPSY/EXCISION, LYMPH NODE(S) Reason for admission: History is obtained from patient. Crystal Capone is a 32-year-old male admitted with septic shock. Patient has a history of stage IV Hodgkin's lymphoma and follows up with Dr. Ashford. He is on active chemotherapy with last session a few weeks back. He presented to our hospital with chief complaint of generalized weakness, fatigue, vomiting and cough. He was found to be hypotensive with systolic blood pressure in the 80s and diastolic in the 40s, tachycardic, febrile, and slightly hypoxemic requiring low-dose supplemental oxygen.He was resuscitated with 2 L IV fluids and thereafter was started on Levophed. He was noted to havea right upper lobe pneumonia on chest x-ray. Lactic acid was elevated at 8.7. WBC count was 0.2, hemoglobin 6.9. He received 1 unit PRBC. He received vancomycin, cefepime and azithromycin. He had mild elevation in troponin at 239, EKG showed sinus tachycardia. Creatinine was elevated at 3.2. Currently, patient appears to be in severe respiratory distress and has pleuritic chest pain. He is alert and oriented x4 and does not have any focal neurological deficits. Hospital Course: 32-year-old male with a past medical history significant for stage IV non- Hodgkin's lymphoma on chemotherapy admitted to ICU with septic shock, acute hypoxic respiratory failure patient required intubation, mechanical ventilation initially was noted to have right upper lobe pneumonia. Patient was started on a broad-spectrum antibiotics that he was requiring vasopressors initially. Infectious disease, hematology, oncology consultation was obtained. Patient received filgrastim, treated with a broad-spectrum antibiotics. Infectious disease recommended him to be continued with the IV meropenem with a plan to complete course of antibiotic therapy on 12/28 if discharge patient can be transitioned to levofloxacin 750 mg daily. Patient also received filgrastim during the hospitalization his cell counts improved. He was also noted to have elevated troponin cardiology consultation was obtained coronary angiography negative for any obstructive CAD. Echocardiogram shows mildly reduced LV function cardiology recommending him to be treated with the beta-blockers as tolerated. He will follow-up as an outpatient basis for further optimization of medication. His electrolytes were monitored, replaced during the hospitalization his renal functions improved. His oxygenation improved and he is no longer requiring supplemental oxygen he was transitioned to p.o. levofloxacin at the time of discharge with the plan to complete course I have examined the patient on the day of discharge patient is hemodynamically stable Consults: cardiology, intensive care, and hematology/oncology Procedures/Significant Diagnostic Studies: CTA CHEST+CT ABD+PEL W CON Result Date: 12/15/2022 Examination: CTA CHEST+CT ABD+PEL W CON Clinical Information: Sepsis. Evaluate for SVC occlusion and pulmonary embolism. Comparison:CT 04/14/2022. Technique: IV contrast: 100 mL Isovue 370. Oral contrast: None. Technical comments: CTA of the chest was obtained according to the pulmonary embolism protocol. Coronal MIP images were submitted for evaluation. Next, contrast enhanced CT images of the abdomen and pelvis were obtained. Dose reduction: This CT exam was performed using one or more of thefollowing dose reduction techniques: Automated exposure control, adjustment of the mA and/or kV according to patient size, and/or use of iterative reconstruction technique. Findings: VASCULATURE The pulmonary arteries are well-opacified and no intraluminal filling defect is identified. The thoracicaorta is unenhanced but appears normal in caliber. The SVC is patent and appears normal in caliber.MEDIASTINUM Support tubes and lines: A right-sided chest port is in place and terminates at the right atrium. Base of neck/thyroid: Negative. Heart: Moderate cardiomegaly. No evidence of right heart strain. Lymph nodes: On the prominent mediastinal lymph nodes are identified, favored reactive. LUNGS AND PLEURA Trace right pleural effusion with atelectasis. Extensive consolidative opacities withinthe right upper lobe consistent with pneumonia. UPPER ABDOMEN Liver and bile ducts: The liver is enlarged measuring 22.5 cm. No distinct focal liver mass is identified. There is diffuse periportal edema. Portal veins appear patent. No biliary dilatation. Gallbladder: Diffuse gallbladder wall thickening. No hyperdense gallstones are identified. No biliary obstruction noted. Pancreas: Normal. Spleen: Normal. RETROPERITONEUM Adrenals: Normal. Kidneys: Unremarkable. Lymph nodes: The enlarged retroperitoneal and iliac chain lymph nodes seen on the comparison study from April 2022 have significantly decreased in size and are now within normal limits. No new lymphadenopathy is seen within the abdomen or pelvis. BOWEL AND PERITONEUM Bowel: No evidence of bowel obstruction or acute inflammatory process. Free air or fluid: Small volume free fluid is seen within the pelvis. VASCULATURE The abdominal aorta is normal in caliber. PELVIS A Rojas catheter is noted within the urinary bladder. BONES/SOFT TISSUES Abnormal appearance of the T7, L3 and L4 vertebral bodies, worsened from prior. Multifocal lytic lesions are identified involving other vertebral bodies as well as the bones of the pelvis, more prominent than seen previously. Findings are again most suggestive of osseous metastasis, with interval worsening. Impression: 1. No pulmonary embolism is identified. 2. The SVC is patent and appears normal in caliber. 3. Extensive consolidative opacities within the right upper lobe consistent with pneumonia. 4. Trace right pleural effusion with atelectasis. 5. Cardiomegaly. 6. Hepatomegaly. Periportal edema isnoted, nonspecific but possibly related to fluid volume status although hepatitis and ascending biliary infection, among other causes, cannot be excluded. 7. Diffuse gallbladder wall thickening, nonspecific. No hyperdense gallstones are identified. This could be secondary to fluid volume status butis nonspecific. Could further correlate with gallbladder ultrasound if clinically favored. 8. Significant interval decrease in size of the retroperitoneal and iliac chain lymph nodes since the prior study. No new lymphadenopathy is seen within the abdomen or pelvis. 9. 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1990 Requested By: NICOLLE LEIGH Order Number: [id number] Reading MD: Aliyah Vazquez Measurements Intervals [place] Rate: 74 P: 53 OR: 136 QRS: 89 QRSD: 97 T: 62 QT: 378 QTc: 421 Interpretive Statements SINUS RHYTHM INCOMPLETE RIGHT BUNDLE BRANCH BLOCK MODERATE T-WAVE ABNORMALITY, CONSIDER LATERAL ISCHEMIA ECG 12 lead Result Date: 12/15/2022 [place] [address] [place] [address] Test Date: 2022-12-15 Pat Name: [facility] Department: 1 Room: [place] [address] 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1990 Requested By: ESTEPHANIE DURAN Order Number: [id number] Reading MD: Aliyah Vazquez Measurements Intervals [place] Rate: 88 P: 60 OR: 135 QRS: 65 QRSD: 122 T: 47 QT: 382 QTc: 464 Interpretive StatementsSINUS RHYTHM MODERATE INTRAVENTRICULAR CONDUCTION DELAY NONSPECIFIC ST & T-WAVE ABNORMALITY ECG 12 lead Result Date: 12/15/2022 [place] [address] [place] [address] Test Date: 2022-12-15 Pat Name: [facility] Department: 1 Room: [place] [address] 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 Technique: Computed tomographic images of the head were obtained without intravenous contrast. Additional coronal and sagittal reformatted images were generated at a separate workstation. A dose lowering technique was used for this procedure, which may include, but is not limited to, dose reduction technique, automated exposure control, the use of iterative reconstruction, and ALARA (As Low As Reasonably Achievable) / Image Gently techniques. Clinical history: Persistent encephalopathy Comparison: CT soft tissue neck 10/27/2022 Findings: There isno acute intracranial hemorrhage. There is no extra-axial fluid collection. Preserved villagomez-white matter differentiation. The ventricles are normal in size. The basal cisterns appear normal. Orbital contents appear normal. Paranasal sinuses and mastoid air cells are well aerated. There is no acute fracture nor destructive process of the visualized osseous structures. IMPRESSION: No CT evidence of an acute intracranial abnormality. Ordered By: ESTEPHANIE DURAN Interpreted By: Jewel Shaver MD, 33:16 PM USE ECHOCARDIOGRAM Result Date: 12/16/2022 Echocardiography Report Pat.Name: CRYSTAL CAPONE.ID: [id number] .Date: 12/16/2022 Refer.MD:[id number] ORACIO THOMPSON EWDPROV EWDPROV Exam Time: 8:55:00 AM Study Type:ECHO WITH CARDIAC DOPPLER COMP Height: 167 cm Weight: 75 kg BSA: 1.84 m2 Age: 8 1990,32Y Sex: M BP: 108/69 HR: 80 bpmSonogrphr: Nuria Delatorre RDCS Pat. Stat.:Inpatient Room: CVICU 15 CPT - 4: 01391 Reason for Study:Shock Procedures: 2D, M-mode, Doppler, Color Flow, Portable, The study quality is technically adequate. ++++++++++++++++++++++++++++++++++++ SUMMARY: ++++++++++++++++++++++++++++++++++++ The left ventricular size is mildly enlarged. The left ventricular systolic function is mildly depressed. Estimated left ventricular ejection fraction is 45-50%. Basal Anteroseptal, Basal Inferior, Mid Anteroseptal, Mid Inferior mclain are hypokinetic. At least moderate eccenteric primary mitral regurgitation (could be underestimated) due to restricted posterior leaflet. Consider FRANCISCO Mild tricuspid regurgitation. ++++++++++++++++++++++++++++++++++++ FINDINGS: ++++++++++++++++++++++++++++++++++++ LV: The left ventricular size is mildly enlarged. The left ventricular systolic function is mildly depressed. Estimated left ventricular ejection fraction is 45-50%. The septal E/e' is indeterminate at 8-15. The lateral E/e' is elevated at >11. Left ventricular diastolic function is abnormal. Basal Anteroseptal, Basal Inferior, Mid Anteroseptal, Mid Inferior mclain are hypokinetic. RV: The right ventricle size is normal. The right ventricular function is normal. IVS: Abnormal septal motion is noted. LA: The left atrial size is normal. RA: Right atrial size is normal. IAS: Atrial septum appears intact. VIET: No evidence of pericardial effusion. AO: The aortic root measures 2.5 cm. The proximal ascending aorta measures 2.3cm. PA: The peak pulmonary artery systolic pressure is estimated to be approximately 29 mmHg. Estimated right atrial pressure of 3 mmHg. PVn: Pulmonary veins are not assessable. SVn: Inferior vena cava shows >50% collapse with respiration consistent with normal right atrial pressure. AV: The aortic valve is trileaflet. No evidence of aortic valve stenosis. No evidence of aortic valve regurgitation. MV: At least moderate eccenteric primary mitral regurgitation (could be underestimated) due to restricted posterior leaflet. Consider FRANCISCO No evidence of mitral stenosis. Mild thickening of mitral valve leaflets. PV: The pulmonic valve is normal There is trace pulmonic regurgitation TV: Mild tricuspid regurgitation. No evidence of tricuspid valve stenosis. ++++++++++++++++++++++++++++++++++++ MEASUREMENTS: ++++++++++++++++++++++++++++++++++++ DOPPLER LVOT LVOTpkPG 5 mmHg LVOTmnPG 2 mmHg LVOTpkVel 107 cm/s (70-110) LVOT SV 61 ml LVOT TVI 20.1 cm AV Forward Flow AV TVI21.9 cm AV pkPG 6 mmHg AV pkVel 118 cm/s (100-170) Area (TVI) 2.77 cm2 (3- 5)* AV mnVel 83.4 cm/s Area (Loki) 2.74 cm2 (3-5)* AV mnPG 3 mmHg MV Forward Flow MV DeTm 121 msec MV pkE 100 cm/s (60-130) MVE/A 1.7 MV pkA 58.7 cm/s MV Regurg Flow MV FlwInt 51.2 ml/s MV mnVel 341 cm/s MV TVI 122 cm MV pkPG71 mmHg MV mnPG 50 mmHg MV pkVel 420 cm/s (60-130)+* MV PISA MV ERO 0.12 cm2 MV Flw 1.48 cc/s MV RgVol 15 ml MV AliasVel 34.6 cm/s TV Regurg Flow TV pkPG 25 mmHg TV pkVel 249 cm/s (30-70)+* Lat E' Lat e 8.79 cm/s Lat E/E' Lat E/e 11.4 Med E' Med e 9.14 cm/s Med E/E' Med E/e 10.9 Aortic Valve AorticValve Ar 1.51 Aortic Valve Ve 0.91 AV DI Value 0.9 CHRISTIANO (VTI) Index Value 1.51 LV Mass 2D Value 176 g LV Mass Jphcs0C Value 95.7 g/m2 Right Ventricle Right Ventricle 9.21 cm/s 2D Left Ventricle LVIDd5.58 cm (3.6-5.2)* LV EF(Bi-Plane) 44.9 % (63-77)* LVIDs 4.49 cm (2.3-3.9)* LVPW LVPWd 1.01 cm Ventricular Septum IVSd 0.68 cm Aorta Ao Rtd 2.56 cm (zsc -0.6) Ao Asc 2.39 cm (zsc 0) LVOT LVOT 1.96 cm Ratios IVS LA Biplane LAVol I BP 38.3 ml/m2 Right Ventricle Right Ventricle 3.11 cm Major [place] 8.62 cm Right Ventricul 22.8 cm2 Right Ventricul 39.5 % Right Ventricul 13.8 cm2 MMODE TA Tricuspid Annul 2.58 cm ++++++++++++++++++++++++++++++++++++ WALL MOTION: ++++++++++++++++++++++++++++++++++++ RESTING WALL MOTION: Basal Anteroseptal, Basal Inferior, Mid Anteroseptal, Mid Inferior mclain are hyp okinetic. Wall Index = 2 <Electronic Signature> 12/16/2022 02:15 PM Kaycee Oliver M.D. XR ABD KUB Result Date: 12/14/2022 INDICATION: OG placement COMPARISON: None. TECHNIQUE: Two radiographic images of the abdomen FINDINGS: Enteric tube in subdiaphragmatic position with tip and side port projecting over the expected location of the gastric lumen. Visualized bowel gas pattern within normal limits. No acute osseous abnormality. Limited visualization of the lung bases exhibit no dense consolidation. IMPRESSION: Enteric tube in satisfactory position. Referred By: JAY NARAYANAN Interpreted By: Nicho [place] MD, 12/14/2022 10:20PM XR CHEST PORTABLE Result Date: 12/17/2022 Examination: XR CHEST PORTABLE Exam time: 12/17/2022 5:12 AM Clinical history: CHF F/U HX: SEPTIC SHOCK; OLDER HX: HYPOKALEMIA, SVC SYNDROME Comparison: 12/15/2022 AP upright view chest x-ray. 12/15/2022 CT chest. Technique: AP upright view Findings: Multiple external wires and leads. Borderline size cardiac silhouette and central pulmonary vasculature. Left lung appears clear. Persistent focal right upper lung zone opacity consistent with pulmonary infiltrative change/pneumonia. This is decreasedslightly in size since prior exam. Right subclavian Hexmnf-i-Jghl catheter appears stable with distal tip projecting in distal superior vena cava region. No evidence of pleural effusions. IMPRESSION: Interval decrease in size of right upper lobe pulmonary consolidation. Ordered By: ESTEPHANIE DURAN Interpreted By: Kevin Leos MD, 12/17/2022 10:49 AM XR CHEST PORTABLE Result Date: 12/15/2022 Examination: XR CHEST PORTABLE Exam time: 12/15/2022 7:00 PM Clinical history: Chest pain. Comparison: Radiographs December 14, 2022. Technique: Upright AP image of the chest. Findings: A right-sided chest port appears to terminate at the cavoatrial junction. The heart is enlarged. There is been interval removal of the ET tube since the prior study. Consolidative opacities within the right upper lobeappear unchanged. The left lung appears clear. No pleural effusion or pneumothorax noted. IMPRESSION: Interval removal of the ET tube since the prior study. Otherwise, no significant interval change. Ordered By: ESTEPHANIE DURAN Interpreted By: Bean Cisneros MD, 12/15/2022 7:23 PM XR CHEST PORTABLE Result Date: 12/14/2022 Examination: XR CHEST PORTABLE Exam time: 12/14/2022 6:40 PM Clinical history: Pneumonia. Status post intubation Comparison: Chest x-ray 12/14/2022 Technique: Portable semierect radiograph of the chestFindings: Interval placement of a endotracheal tube with tip located approximately 4 cm above the level of the misti. Redemonstrated infusion port with tip projecting over the right atrium. Unchanged consolidative opacity in the lateral right upper lobe. Unchanged hazy opacities in the right lowerlung. The cardiac silhouette and pulmonary vasculature are within normal limits. There is no pleural effusion or pneumothorax. IMPRESSION: 1. Interval placement of an endotracheal tube with tip located proximally 4 cm above the misti. 2. Unchanged consolidative opacity in the right upper lobe and hazy opacities in the rightlower lung. The attending radiologist has reviewed the image(s) and agrees with the content of thisreport. Ordered By: LON GAUTHIER Interpreted By: Get Chavez MD, 12/14/2022 7:24 PM XR CHEST PORTABLE Result Date: 12/14/2022 INDICATION: Assess for pneumonia, weakness, fatigue, cough COMPARISON: Chest CT, 14 Apr 2022 TECHNIQUE: Single AP portable radiographic image of the chest FINDINGS: Infusion port in right chest wall with the catheter tip at the superior cavoatrial junction. No pneumothorax or pleural effusion. There is a dense consolidation in the lateral aspect of the right upper lobe. Some additional infiltrates possible in the right middle lobe. Mild bilateral central interstitial prominence. Cardiomediastinal silhouette and pulmonary vasculature within normal limits. No acute osseous abnormality. IMPRESSION: 1. Dense consolidation in the lateral aspect of the right upper lobe, compatible with pneumonia. Additional infiltrates possible in right middle lobe. Recommend following to resolution. 2. Mild bilateral central interstitial prominence, mild pulmonary edema versus pneumonia. Referred By: JAY NARAYANAN Interpreted By: Nicho [place] MD, 12/14/2022 6:14 PM Discharged Condition: good Code Status: Full Code Discharge Exam: Patient was seen and examined on day of discharge, vitals were stable. Disposition: discharged to home Patient Instructions: Discharge Medication List as of 12/21/2022 10:42 AM START taking these medications Details levoFLOXacin (LEVAQUIN) 750 MG tablet Take 1 tablet (750 mg total) by mouth daily for 7 days., Starting 12/21/2022, Until 12/28/2022, Print metoprolol succinate ER (TOPROL XL) 12.5 mg TABLET SR 24 HR 24 hr tablet Take 1 split tab (12.5 mg total) by mouth daily for 30 days., Starting Wed12/22/2022, Until Ana 01/21/2023, Print CONTINUE these medications which have NOT CHANGED Details diphenhydrAMINE (BENADRYL) 12.5 MG/5ML liquid Take 5 mLs (12.5 mg total) by mouth 4 (four) times daily as needed for Itching., Historical Med DULoxetine (CYMBALTA) 60 MG capsule Take 1 capsule (60 mg total) by mouth daily., Historical Med gabapentin (NEURONTIN) 300 MG capsule Take 1 capsule (300 mg total) by mouth 3 (three) times daily., Starting Wed12/09/2022, Historical Med HYDROcodone-acetaminophen (NORCO) 5-325 MG tablet Take 1 tablet by mouth every 6 (six) hours., Historical Med morphine CR (MS CONTIN) 30 MG tablet Take 1 tablet (30 mg total) by mouth 2 (two) times daily., Historical Med naloxone (NARCAN) 4 MG/0.1ML nasal spray 1 spray by Nasal route as needed for Opioid reversal., Historical Med naproxen (NAPROSYN) 500 MG tablet Take 1 tablet (500 mg total) by mouth 2 (two) times daily as needed (pain)., Historical Med NEUPOGEN 300 MCG/0.5ML injection INJECT 1 SYRINGE INTO THE SKIN ONCE DAILY ON DAYS 9-17 OF TREATMENT, Historical Med ondansetron (ZOFRAN-ODT) 8 MG disintegrating tablet Take 1 tablet (8 mg total) by mouth every 8 (eight) hours as needed for Nausea., Historical Med PREDNISONE OR Take 70 mg by mouth see administration instructions. Takes it daily from day 9-17 of treatment regimen (while on filgrastim), Historical Med procarbazine (MATULANE) 50 MG capsule Take 4 capsules by mouth see administration instructions. Take 4 capsules daily on days 1-7 of treatment regimen., Historical Med Activity: as tolerated. Diet: cardiac Wound Care: as directed Follow up labs needed: Follow-up with the PCP in 5 to 7 days time the CBC, basic metabolic profile Follow-up with the hematology, cardiology as an outpatient basis Follow-up; Jay Narayanan DO [address] [facility] [address] Follow up with cbc/bmp Kaycee Oliver MD [address] [address] Follow up in 2 week(s) as arranged Total time spent on discharge was 34 minutes. Thank you for allowing [facility] hospitalist service to take care of your patient, Please call [phone] Ext [phone] if you have any questions or concern. Signed: BENITEZ PIZANO MD 12/21/2022 12:16 PM documented in this encounter Discharge Instructions * Discharge Instructions* Lay Tian RN - 12/21/2022 9:42 AM CDT Return to emergency worsening symptoms Follow-up with oncology, cardiology, PCP as arranged * Attachments The following attachments cannot be sent through Care Everywhere. * Levofloxacin (Systemic), ADULT (Turkmen) * Metoprolol, ADULT (Turkmen) documented in this encounter Medications at Time of Discharge diphenhydrAMINE (BENADRYL) 12.5 MG/5ML liquid Take 5 mLs (12.5 mg total) by mouth 4 (four) times daily as needed for Itching. 3 04/28/20 23 DULoxetine (CYMBALTA) 60 MG capsule Take 1 capsule (60 mg total) by mouth daily. 3 05/23/20 24 gabapentin (NEURONTIN) 300 MG capsule Take 1 capsule (300 mg total) by mouth 3 (three) times daily. 3 05/23/20 24 HYDROcodone-acetami nophen (NORCO) 5-325 MG tablet Take 1 tablet by mouth every 6 (six) hours. 05/23/20 24 levoFLOXacin (LEVAQUIN) 750 MG tablet Take 1 tablet (750 mg total) by mouth daily for 7 days. 7 tablet 3 12/29/19 23 metoprolol succinate ER (TOPROL XL) 12.5 mg TABLET SR 24 HR 24 hr tablet Take 1 split tab (12.5 mg total) by mouth daily for 30 days. 30 split tab 3 01/22/20 23 morphine CR (MS CONTIN) 30 MG tablet Take 1 tablet (30 mg total) by mouth 2 (two) times daily. 3 05/23/20 naloxone (NARCAN) 4 MG/0.1ML nasal spray 1 spray by Nasal route as needed for Opioid reversal. 3 05/23/20 naproxen (NAPROSYN) 500 MG tablet Take 1 tablet (500 mg total) by mouth 2 (two) times daily as needed (pain). 04/28/20 NEUPOGEN 300 MCG/0.5ML injection INJECT 1 SYRINGE INTO THE SKIN ONCE DAILY ON DAYS 9-17 OF TREATMENT 04/28/20 ondansetron (ZOFRAN-ODT) 8 MG disintegrating tablet Take 1 tablet (8 mg total) by mouth every 8 (eight) hours as needed for Nausea. 05/23/20 PREDNISONE OR Take 70 mg by mouth see administration instructions. Takes it daily from day 9-17 of treatment regimen (while on filgrastim) 04/28/20 procarbazine (MATULANE) 50 MG capsule Take 4 capsules by mouth see administration instructions. Take 4 capsules daily on days 1-7 of treatment regimen. 04/28/20 documented as of this encounter Progress Notes * Nieves Lew RN - 12/20/2022 10:54 PM CDT Problem: Reduced risk for falls/injury Goal: Reduced Risk for Falls/Injury Outcome: Progressing Goal: Reduced Risk of Symptomatic Depression Outcome: Progressing Goal: Reduced Risk of Altered Elimination Outcome: Progressing Goal: Reduced Risk of Dizziness/Vertigo/Balance Outcome: Progressing Goal: Reduced Risk of Polypharmacy Outcome: Progressing Problem: Fluid Volume - Imbalanced Goal: Absence of imbalanced fluid volume signs and symptoms Outcome: Progressing Problem: Gas Exchange - Impaired Goal: Adequate oxygenation Outcome: Progressing Problem: Infection - Risk of, Central Venous Catheter-Associated Bloodstream Infection Goal: Absence of infection signs and symptoms Outcome: Progressing Problem: Pain - Acute Goal: Achieve acceptable pain level Outcome: Progressing Goal: Reduced pain sensation Outcome: Progressing Problem: Skin Integrity - Risk of, Impaired Goal: Skin integrity intact Outcome: Progressing Problem: Tissue Perfusion - Cardiopulmonary, Altered Goal: Circulatory function within specified parameters Outcome: Progressing Problem: Venous Thromboembolism - Risk of Goal: Absence of deep venous thrombosis Outcome: Progressing Problem: Discharge Planning Goal: Knowledge of discharge instructions Outcome: Progressing Problem: Discharge Planning Goal: Knowledge of discharge instructions Outcome: Progressing Problem: Body Temperature - Risk of, Imbalanced Goal: Body temperature within specified parameters Outcome: Progressing Problem: Fluid Volume - Risk of, Imbalanced Goal: Absence of hypovolemia Outcome: Progressing Goal: Lactate, serum, within specified parameters Outcome: Progressing Goal: Procalciton within specified parameters Outcome: Progressing Problem: Gas Exchange - Impaired Goal: Absence of cyanosis signs and symptoms Outcome: Progressing Goal: Central or mixed venous oxygen saturation within specified parameters Outcome: Progressing Problem: Discharge Planning Goal: Knowledge of discharge instructions Outcome: Progressing Goal: Absence of Community Acquired Pneumonia Infection Signs and Symptoms Outcome: Progressing Problem: Airway Clearance - Ineffective Goal: Patent airway Outcome: Progressing Problem: Infection - Risk of, Central Venous Catheter-Associated Bloodstream Infection Goal: Absence of Central Venous Catheter Associated Bloodstream Infection Signs and Symptoms Outcome: Progressing * Abigail Escobar RN - 12/20/2022 3:25 PM CDT Problem: Reduced risk for falls/injury Goal: Reduced Risk for Falls/Injury Outcome: Progressing Problem: Fluid Volume - Imbalanced Goal: Absence of imbalanced fluid volume signs and symptoms Outcome: Progressing Problem: Gas Exchange - Impaired Goal: Adequate oxygenation Outcome: Progressing Problem: Infection - Risk of, Central Venous Catheter-Associated Bloodstream Infection Goal: Absence of infection signs and symptoms Outcome: Progressing Problem: Pain - Acute Goal: Achieve acceptable pain level Outcome: Progressing Problem: Skin Integrity - Risk of, Impaired Goal: Skin integrity intact Outcome: Progressing Problem: Discharge Planning Goal: Knowledge of discharge instructions Outcome: Progressing Problem: Reduced risk for falls/injury Goal: Reduced Risk of Confusion (Acute vs Chronic) Outcome: Completed Problem: Infection - Risk of, Septic Shock Goal: Absence of infection signs and symptoms Outcome: Completed Problem: Infection - Risk of, Urinary Catheter-Associated Urinary Tract Infection Goal: Absence of infection signs and symptoms Outcome: Completed * Benitez Pizano MD - 12/20/2022 12:23 PM CDT [facility] Hospitalist Progress Note Assessment and Plan 32 y/o M with 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 Downgraded to floor on 12/18 Septic Shock, now off pressors Acute hypoxemic respiratory failure, s/p extubation RUL PNA - n oxygenation improved, on room air - off vasopressors, will DC midodrine. Monitor blood pressure - Eval by [facility] , Continue meropenem (EOT 12/28) for two weeks of treatment for Pneumonia. If patient is ready for discharge prior to completion of antibiotics, transition to Levaquin 750mg Qd until above end date. Stage IV NHL Pancytopenia, immunocomp - s/p filgastrim x 3 during hospital stay - eval by [facility] , outpatient follow up with Dr. Ashford at [facility] Heme Onc Elevated Tropnin, likely Demand Ischemia Cardiomyopathy Mitral Regurg - evaluated by Janie Lemos , appreciate recs - Echo with mildly reduced LVEF - Cath negative for obstructive CAD -Continue beta-blockers as tolerated. Monitor blood pressure Hypokalemia -Monitor electrolytes and replace LEON - now resolved Discharge Disposition Anticipate discharge tomorrow if remains stable BENITEZ MD KESHA Subjective Patient seen and examined Patient feels well denies any complaints of chest pain, shortness of breath continues to have a cough with white sputum no complaints of fever, chills denies any dizziness, lightheadedness Principal Problem: Septic shock (CMS/[facility]) SNOMED CT(R): SEPTIC SHOCK Past Medical History: Diagnosis Date ??? Hodgkin lymphoma, unspecified, unspecified site ([facility]) Current Facility-Administered Medications Medication Dose Route Frequency Provider Last Rate Last Admin ??? DULoxetine (CYMBALTA) capsule 60 mg 60 mg Oral Daily Estephanie Duran MD 60 mg at 12/20/22842 ??? enoxaparin (LOVENOX) 40 MG/0.4ML syringe 40 mg 40 mg Subcutaneous Nightly (enoxaparin) Estephanie Duran MD 40 mg at 12/19/222032 ??? famotidine (PF) (PEPCID) injection 20 mg 20 mg Intravenous 2 times per day Estephanie Duran MD 20 mg at 12/18/222012 Or ??? famotidine (PEPCID) tablet 20 mg 20 mg Tube 2 times per day Estephanie Duran MD 20 mg at 06/18/23 0843 ??? gabapentin (NEURONTIN) capsule 300 mg 300 mg Oral TID Estephanie Duran MD 300 mg at 12/20/22 0843 ??? HYDROcodone-acetaminophen (NORCO) 5-325 MG tablet 1 tablet 1 tablet Oral Q6H PRN Estephanie Duran MD 1 tablet at 12/16/22 0053 ??? hydrOXYzine (ATARAX) tablet 25 mg 25 mg Oral TID PRN Benitez Pizano MD ??? insulin lispro (HUMALOG) injection 0-12 Units 0-12 Units Subcutaneous 4x Daily AC and at bedtime Estephanie Duran MD 3 Units at 12/16/22 1134 ??? iopamidol (ISOVUE-370) 76 % injection 100 mL 100 mL Intravenous ONCE PRN Estephanie Duran MD ??? ipratropium-albuterol (DUONEB) 0.5-2.5 (3) MG/3ML nebulizer solution 3 mL 3 mL Nebulization Q4HPRN Estephanie Duran MD 3 mL at 12/18/22 0251 ??? lidocaine 4 % patch 1 patch 1 patch Transdermal Q24H Estephanie Duran MD 1 patch at 12/18/22 0929 ??? meropenem (MERREM) 2 g in sodium chloride 0.9 % 100 mL IVPB 2 g Intravenous Q8H Estephanie Duran MD 33.3 mL/hr at 12/20/22 0951 2 g at 12/20/22 0951 ??? metoprolol succinate ER (TOPROL-XL) 24 hr tablet 12.5 mg 12.5 mg Oral Daily Kaycee Oliver MD 12.5 mg at 12/20/22 0843 ??? midodrine (PROAMATINE) tablet 2.5 mg 2.5 mg Oral TID Marcelino Ling MD 2.5 mg at 12/19/22 1623 ??? normal saline 0.9 % flush 3-10 mL 3-10 mL Intravenous Q8H Estephanie Duran MD 10 mL at 12/20/22 0844 ??? normal saline 0.9 % flush 3-10 mL 3-10 mL Intravenous PRN Estephanie Duran MD ??? ondansetron (ZOFRAN) injection 4 mg 4 mg Intravenous Q8H PRN Estephanie Duran MD ??? senna-docusate (SENOKOT-S) 8.6-50 MG tablet 1 tablet 1 tablet Oral BID Estephanie Duran MD 1 tablet at 12/20/22 0843 Review of Systems Constitutional: Negative for chills and fever. HENT: Negative for congestion and sore throat. Respiratory: Negative for cough, sputum production and shortness of breath. Cardiovascular: Negative for chest pain and palpitations. Gastrointestinal: Negative for abdominal pain, nausea and vomiting. Genitourinary: Negative for dysuria and hematuria. Neurological: Negative for dizziness and headaches. Psychiatric/Behavioral: Negative for depression and hallucinations. Vitals: 12/20/22 1158 BP: 117/62 Pulse: 77 Resp: Temp: 97.5 ??F (36.4 ??C) SpO2: 95% Physical Exam Vitals and nursing note reviewed. Constitutional: Appearance: He is well-developed. HENT: Head: Normocephalic and atraumatic. Eyes: Conjunctiva/sclera: Conjunctivae normal. Cardiovascular: Rate and Rhythm: Normal rate and regular rhythm. Heart sounds: No murmur heard. Pulmonary: Effort: Pulmonary effort is normal. No respiratory distress. Breath sounds: Wheezing present. Comments: Bilateral Abdominal: General: There is no distension. Palpations: Abdomen is soft. Tenderness: There is no abdominal tenderness. Musculoskeletal: General: No tenderness. Cervical back: Normal range of motion and neck supple. Skin: General: Skin is warm and dry. Neurological: General: No focal deficit present. Mental Status: He is alert and oriented to person, place, and time. Psychiatric: Behavior: Behavior normal. Recent Labs Lab 12/20/22 0216 WBC 4.47 RBC 4.09* HGB 10.4* HCT 33.0* MCV 80.7 MCH 25.4* MCHC 31.5* PLT 182 RDW 15.6* MPV 11.2* NEUC 3.26 LYMC 0.63* MONOC 0.54 EOSC 0.00 BASOC 0.04 Recent Labs Lab 12/20/22215 NA 138 K 3.8 CL 105 CO2 28.6 AGAP 4.4* BUN 17 CR 0.50* GLU 84 CA 9.1 No results found. * Brenna Morse RN - 12/20/2022 5:44 AM CDTSummary: Note Oriented x4. C/O pleuritic chest pain, cough with foamy phlegm. On IV Meropenem for PNA. ToleratingABX without side effects. Denies any other complaints. Right chest port dressing changed on this shift due to loose Tegaderm. Will continue to monitor. 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 Downgraded to floor on 12/18 Septic Shock, now off pressors Acute hypoxemic respiratory failure, s/p extubation RUL PNA - now on RA - off vasopressors, on midodrine, taper to 2.5mg TID. Continue to taper off as blood pressure allows. - Eval by [facility] , Continue meropenem (EOT 12/28) for two weeks of treatment for Pneumonia. If patient is ready for discharge prior to completion of antibiotics, transition to Levaquin 750mg Qd until above end date. Stage IV NHL Pancytopenia, immunocomp - s/p filgastrim x 3 during hospital stay - eval by [facility] , outpatient follow up with Dr. Ashford at [facility] Elevated Tropnin, likely Demand Ischemia Cardiomyopathy Mitral Regurg - evaluated by [facility] , appreciate recs - Echo with mildly reduced LVEF - Cath negative for obstructive CAD Hypokalemia - replete today, follow up BMP in [place] LEON - now resolved Discharge Disposition Pending clinical improvement Marcelino Ling MD Subjective Seen at bedside's morning, overnight events were reviewed, patient reports a cough that is nonproductive. Reports her breathing is significantly improved. Discussed plan of care, all questions answered. Principal Problem: Septic shock (CMS/HCC) SNOMED CT(R): SEPTIC SHOCK Past Medical History: Diagnosis Date Hodgkin lymphoma, unspecified, unspecified site (CMS/HCC) Current Facility-Administered Medications Medication Dose Route Frequency Provider Last Rate Last Admin DULoxetine (CYMBALTA) capsule 60 mg 60 mg Oral Daily Estephanie Duran MD 60 mg at 12/18/22928 enoxaparin (LOVENOX) 40 MG/0.4ML syringe 40 mg 40 mg Subcutaneous Nightly (enoxaparin) Estephanie Duran MD 40 mg at 12/18/222012 famotidine (PF) (PEPCID) injection 20 mg 20 mg Intravenous 2 times per day Estephanie Duran MD 20 mg at 12/18/222012 Or famotidine (PEPCID) tablet 20 mg 20 mg Tube 2 times per day Estephanie Duran MD 20 mg at 12/18/22928 gabapentin (NEURONTIN) capsule 300 mg 300 mg Oral TID Estephanie Duran MD 300 mg at 12/18/222012 hydrALAZINE (APRESOLINE) tablet 25 mg 25 mg Oral Q8H PRN Nicolle Leigh MD HYDROcodone-acetaminophen (NORCO) 5-325 MG tablet 1 tablet 1 tablet Oral Q6H PRN Estephanie Duran MD 1tablet at 12/16/22 0053 insulin lispro (HUMALOG) injection 0-12 Units 0-12 Units Subcutaneous 4x Daily AC and at bedtime Estephanie Duran MD 3 Units at 12/16/22 1134 iopamidol (ISOVUE-370) 76 % injection 100 mL 100 mL Intravenous ONCE PRN Estephanie Duran MD ipratropium-albuterol (DUONEB) 0.5-2.5 (3) MG/3ML nebulizer solution 3 mL 3 mL Nebulization Q4H PRNSalhaji Massey MD 3 mL at 12/18/22 0251 lidocaine 4 % patch 1 patch 1 patch Transdermal Q24H Estephanie Duran MD 1 patch at 12/18/22 0929 meropenem (MERREM) 2 g in sodium chloride 0.9 % 100 mL IVPB 2 g Intravenous Q8H Estephanie Duran MD 33.3 mL/hr at 12/19/22 0419 2 g at 12/19/22 0419 metoprolol succinate ER (TOPROL-XL) 24 hr tablet 12.5 mg 12.5 mg Oral Daily Kaycee Oliver MD 12.5 mg at 12/18/22 1154 midodrine (PROAMATINE) tablet 5 mg 5 mg Oral TID WC Estephanie Duran MD 5 mg at 12/18/22 1641 normal saline 0.9 % flush 3-10 mL 3-10 mL Intravenous Q8H Lon Gauthier MD 5 mL at 12/18/22 1845 normal saline 0.9 % flush 3-10 mL 3-10 mL Intravenous PRN Lon Gauthier MD ondansetron (ZOFRAN) injection 4 mg 4 mg Intravenous Q8H PRN Lon Gauthier MD senna-docusate (SENOKOT-S) 8.6-50 MG tablet 1 tablet 1 tablet Oral BID Estephanie Duran MD 1 tablet at12/18/222012 Review of Systems Constitutional: Negative for chills and fever. HENT: Negative for congestion and sore throat. Respiratory: Negative for cough, sputum production and shortness of breath. Cardiovascular: Negative for chest pain and palpitations. Gastrointestinal: Negative for abdominal pain, nausea and vomiting. Genitourinary: Negative for dysuria and hematuria. Neurological: Negative for dizziness and headaches. Psychiatric/Behavioral: Negative for depression and hallucinations. Vitals: 12/19/22 0300 BP: 126/78 Pulse: 72 Resp: 18 Temp: 98 ??F (36.7 ??C) SpO2: 98% Physical Exam Vitals and nursing note reviewed. Constitutional: Appearance: He is well-developed. HENT: Head: Normocephalic and atraumatic. Eyes: Conjunctiva/sclera: Conjunctivae normal. Cardiovascular: Rate and Rhythm: Normal rate and regular rhythm. Heart sounds: No murmur heard. Pulmonary: Effort: Pulmonary effort is normal. No respiratory distress. Breath sounds: Normal breath sounds. Abdominal: General: There is no distension. Palpations: Abdomen is soft. Tenderness: There is no abdominal tenderness. Musculoskeletal: General: No tenderness. Cervical back: Normal range of motion and neck supple. Skin: General: Skin is warm and dry. Neurological: General: No focal deficit present. Mental Status: He is alert and oriented to person, place, and time. Psychiatric: Behavior: Behavior normal. Recent Labs Lab 12/19/22 0234 WBC 7.73 RBC 3.71* HGB 9.4* HCT 28.8* MCV 77.6* MCH 25.3* MCHC 32.6* PLT 141* RDW 15.4* MPV 10.6* NEUC 6.57 LYMC 0.46* MONOC 0.70 EOSC 0.00 BASOC 0.00 Recent Labs Lab 12/19/22 0234 NA 140 K 3.4* CL 106 CO2 30.7 AGAP 3.3* BUN 19* CR 0.61* GLU 75 CA 8.5 No results found. * Nuris Mantilla MD - 12/18/2022 12:00 PM CDTSummary: [facility] Progress Note [facility] PROGRESS NOTE Attending Provider:Dr. Mantilla PCP: JAY NARAYANAN DO Reason for Consultation: Septic shock 2/2 RUL PNA, immunocompromised ASSESSMENT AND PLAN Crystal Capone is a 32-year-old male with medical history of Stage 4 NHL currently undergoing chemotherapy. Admitted for septic shock 2/2 RUL PNA s/p intubation. [facility] has been consulted for antibiotic management. Diagnoses: Septic shock likely source RUL PNA AHFR s/p intubation and extubation Stage 4 NHL, pancytopenia, immunocompromised Lactic acidosis, improving LEON, resolved Antimicrobial Regimen Vancomycin IV ( 12/14 - 12/16). Bactrim 10mg/kg/d IV (12/14- 12/16) Azithromycin 500mg IV Qd (12/15- 12/17) Micafungin 100mg IV Qd (12/14-12/17) Meropenem 1g IV Q12h (12/14- EOT 12/28) [facility] Final Recommendations - Patient seen this am with history, labs/cultures, imaging, and antibiotics reviewed as above. Extubated, on RA but still has a cough. - Continue meropenem (EOT 12/28) for two weeks of treatment for Pneumonia. If patient is ready for discharge prior to completion of antibiotics, transition to Levaquin 750mg Qd until above end date. -Plan as above discussed with patient, all voiced questions/concerns addressed, voiced agreement and understanding with plan. Thank you for the consultation and for the opportunity to assist in the care of this patient. [facility] will sign off. Please feel free to contact us with regards to any questions or concerns. [facility] Infectious Disease 12/18/2022 Teaching physician note: Infectious Diseases Attending Physician: Patient personally interviewed and examined. Labs and vitals reviewed. [facility] Infectious Disease Fellow/Resident note reviewed and findings verified. Case discussed with the Infectious Disease team SUBJECTIVE Patient was evaluated at bedside. Afebrile. On room air. Denies shortness of breath. Endorsing cough with sputum production, however feels this is improving. He Denies fevers, chills, and night sweats. Denies nausea, vomiting, and diarrhea. Review of Systems 10 point ROS negative unless addressed above OBJECTIVE Infectious Evaluation Summary SCr 2.36 >> 0.63 WBC 6.61 > 18.7 (s/p filgrastim and prednisone) LA: 4.3 > 2.4 Troponin 19,000 > 9,700. LHC negative. Images CXR (12/14): RUL PNA, mild central interstitial prominence CXR (12/17): RUL PNA, slightly improved compared to prior. CT C/A/P: RUL PNA, hepatomegaly with periportal edema (differential includes ascending biliary treeinfection), diffuse gallbladder thickening, interval worsening osseus mets. EKG (12/15): ST changes noted. Micro (12/14) Blood Culture x2: NGTD (12/14) blood culture, line: NGTD (12/14) Bronchoscopy: - lavage culture: alpha strep, micrococcus - Acid Fast: Negative - Fungal culture: pending - TB/AFB culture: pending (12/15): Induced sputum Cx: alpha strep (12/15) Biofire: negative (12/14) MRSA PCR: negative Histo Ag: pending Drug Monitoring Filed Vitals: 12/18/22 0700 12/18/22 0800 12/18/22 0900 12/18/22 1000 BP: 110/72 105/75 116/62 Pulse: 67 (!) 57 62 74 Resp: 20 27 29 21 Temp: 97.5 ??F (36.4 ??C) TempSrc: Tympanic SpO2: 92% 93% 95% 99% Weight: Height: Physical Exam General: Alert and oriented, lying in bed. On room air. Eye: Normal conjunctiva, No scleral icterus. HENT: Normocephalic, AT Neck: Supple, Trachea midline Respiratory: CTAB. Respirations are non-labored, Breath sounds are equal Cardiovascular: Normal rate, Regular rhythm, No edema. Gastrointestinal: Soft, Non-tender, Non-distended Integumentary: Warm and dry, No rash. Neurologic: alert and oriented. No focal deficits. Psychiatric: cooperative. Current Facility-Administered Medications: DULoxetine (CYMBALTA) capsule 60 mg, 60 mg, Oral, Daily, Estephanie Duran MD, 60 mg at 12/18/22 09 enoxaparin (LOVENOX) 40 MG/0.4ML syringe 40 mg, 40 mg, Subcutaneous, Nightly (enoxaparin), Estephanie Duran MD famotidine (PF) (PEPCID) injection 20 mg, 20 mg, Intravenous, 2 times per day, 20 mg at 12/15/222002 OR famotidine (PEPCID) tablet 20 mg, 20 mg, Tube, 2 times per day, Estephanie Duran MD, 20 mg at12/18/22 09 gabapentin (NEURONTIN) capsule 300 mg, 300 mg, Oral, TID, Estephanie Duran MD, 300 mg at 12/18/22 0929 HYDROcodone-acetaminophen (NORCO) 5-325 MG tablet 1 tablet, 1 tablet, Oral, Q6H PRN, Estephanie Duran MD, 1 tablet at 12/16/22 0053 insulin lispro (HUMALOG) injection 0-12 Units, 0-12 Units, Subcutaneous, 4x Daily AC and at bedtime, Estephanie Duran MD, 3 Units at 12/16/22 1134 iopamidol (ISOVUE-370) 76 % injection 100 mL, 100 mL, Intravenous, ONCE PRN, Estephanie Duran MD ipratropium-albuterol (DUONEB) 0.5-2.5 (3) MG/3ML nebulizer solution 3 mL, 3 mL, Nebulization, Q4H PRN, Natividad Massey MD, 3 mL at 12/18/22 0251 lidocaine 4 % patch 1 patch, 1 patch, Transdermal, Q24H, Estephanie Duran MD, 1 patch at 12/18/22 0929 meropenem (MERREM) 2 g in sodium chloride 0.9 % 100 mL IVPB, 2 g, Intravenous, Q8H, Estephanie Duran MD, Stopped at 12/18/22 1020 metoprolol succinate ER (TOPROL-XL) 24 hr tablet 12.5 mg, 12.5 mg, Oral, Daily, Kaycee Oliver MD, 12.5 mg at 12/18/22 1154 midodrine (PROAMATINE) tablet 5 mg, 5 mg, Oral, TID WC, Estephanie Duran MD, 5 mg at 12/18/22 1154 normal saline 0.9 % flush 3-10 mL, 3-10 mL, Intravenous, Q8H, Lon Gauthier MD, 10 mL at 12/18/22 0930 normal saline 0.9 % flush 3-10 mL, 3-10 mL, Intravenous, PRN, Lon Gauthier MD ondansetron (ZOFRAN) injection 4 mg, 4 mg, Intravenous, Q8H PRN, Lon Gauthier MD senna-docusate (SENOKOT-S) 8.6-50 MG tablet 1 tablet, 1 tablet, Oral, BID, Estephanie Duran MD, 1 tablet at 12/17/22 2100 * Kaycee Oliver MD - 12/18/2022 10:33 AM CDT Images from the original note were not included. Cardiology Hospital follow up/progress PATIENT:Crystal Capone : 1990 DATE OF SERVICE: 12/18/2022 Reason for Admission: Septic shock Reason for Consultation: Troponin elevation and chest pain Chief Complaint: Chest pain and shortness of INTERVAL 24 HOUR HISTORY: - No acute events overnight. Cath yesterday with no significant CAD. Doing well presents with excellent blood pressure. They transitioned off REVIEW OF SYSTEMS: All systems including eyes, ENT, skin, respiratory, gastrointestinal, genitourinary, neurological, musculoskeletal, endocrine, hematologic and psychiatric systems were reviewed with no significant relevant new findings except for the systems as discussed above in the history of presenting illness. PAST MEDICAL HISTORY: Past Medical History: Diagnosis Date Hodgkin lymphoma, unspecified, unspecified site (CMS/HCC) PAST SURGICAL HISTORY: Past Surgical History: Procedure Laterality Date BIOPSY BONE BIOPSY/EXCISION, LYMPH NODE(S) CURRENT MEDICATIONS: Scheduled Meds: DULoxetine 60 mg Oral Daily enoxaparin 40 mg Subcutaneous Nightly (enoxaparin) famotidine 20 mg Intravenous 2 times per day Or famotidine 20 mg Tube 2 times per day gabapentin 300 mg Oral TID insulin lispro 0-12 Units Subcutaneous 4x Daily AC and at bedtime lidocaine 1 patch Transdermal Q24H meropenem 2 g Intravenous Q8H metoprolol succinate ER 12.5 mg Oral Daily midodrine 5 mg Oral TID WC normal saline 3-10 mL Intravenous Q8H senna-docusate 1 tablet Oral BID Continuous Infusions: PRN Meds: HYDROcodone-acetaminophen, iopamidol, ipratropium-albuterol, normal saline, ondansetron ALLERGIES: No Known Allergies SOCIAL HISTORY: Social History Socioeconomic History Marital status: Single [...] (Medical): No Lack of Transportation (Non-Medical): No Physical Activity: Inactive Days of Exercise per Week: 0 days Minutes of Exercise per Session: 0 min Stress: Stress Concern Present Feeling of Stress : To some extent Social Connections: Socially Isolated Frequency of Communication with Friends and Family: Twice a week Frequency of Social Gatherings with Friends and Family: Twice a week Attends Baptism Services: Never Active Member of Clubs or Organizations: No Attends Club or Organization Meetings: Never Marital Status: Never Intimate Partner Violence: Not At Risk Fear of Current or Ex-Partner: No Emotionally Abused: No Physically Abused: No Sexually Abused: No Housing Stability: Low Risk Unable to Pay for Housing in the Last Year: No Number of Places Lived in the Last Year: 1 Unstable Housing in the Last Year: No FAMILY HISTORY: Family History Problem Relation Name Age of Onset Cancer Mother Cancer Sister PHYSICAL EXAMINATION: VITALS: Vitals: 12/18/22 1000 BP: 116/62 Pulse: 74 Resp: 21 Temp: SpO2: 99% BMI Readings from Last 1 Encounters: 12/16/22 26.94 kg/m?? Constitutional: appears stated age and cooperative Head: Normocephalic, without obvious abnormality Eyes: PERRLA, EOM full and intact, Sclera are anicteric, ENT: lips, mucosa, and tongue normal Neck: no clear evidence of carotid bruit, no evidence of JVD, Neck supple, symmetrical, trachea midline, with no significant evidence of thyroid enlargement Respiratory: clear to auscultation bilaterally Cardiovascular: No obvious significant chest wall deformity, regular rate and rhythm, S1, S2 normal, no murmurs, no clicks, rubs or gallops Gastrointestinal: soft, non-tender; bowel sounds present with no clear evidence of masses, no organomegaly Musculoskeletal: negative for pertinent findings Extremities: extremities normal, atraumatic, no clubbing, cyanosis or edema Neurologic: No clear significant focal deficits Psychiatric: Alert and oriented with adequate insight. Mood and affect are appropriate LABORATORY AND CARDIODIAGNOSTIC STUDIES: Chemistry Lab Results Component Value Date/Time NA 139 12/18/2022 04:45 AM K 3.9 12/18/2022 04:45 AM CL 106 12/18/2022 04:45 AM BUN 22 (H) 12/18/2022 04:45 AM AST 32 12/18/2022 04:45 AM ALT 84 (H) 12/18/2022 04:45 AM TSH 1.080 12/14/2022 06:58 PM NT-Pro BNP No components found for: NTPROBNP Lipids No results found for: CHOL, HDL, LDL CBC Lab Results Component Value Date/Time WBC 18.70 (H) 12/18/2022 04:45 AM RBC 3.71 (L) 12/18/2022 04:45 AM HGB 9.6 (L) 12/18/2022 04:45 AM HCT 28.7 (L) 12/18/2022 04:45 AM PLT 118 (L) 12/18/2022 04:45 AM PT/INR Lab Results Component Value Date/Time INR 1.8 (H) 04/14/2022 04:15 PM ECG Results for orders placed or performed during the hospital encounter of 12/14/22 ECG 12 lead Narrative [place] [address] [place] [address] Test Date: 2022-12-15 Pat Name: [facility] Department: 1 Room: [place] [address] 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 Central Office: Ed DENNISONB: 1990 Requested By: ESTEPHANIE DURAN Order Number: [id number] Reading MD: Aliyah Vazquez Measurements Intervals [place] Rate: 88 P: 60 OR: 135 QRS: 65 QRSD: 122 T: 47 QT: 382 QTc: 464 Interpretive Statements SINUS RHYTHM MODERATE INTRAVENTRICULAR CONDUCTION DELAY NONSPECIFIC ST & T-WAVE ABNORMALITY ECG 12 lead Narrative [place] [address] [place] [address] Test Date: 2022-12-15 Pat Name: [facility] Department: 1 Room: [place] [address] 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 No pulmonary embolism is identified. 2. The SVC is patent and appears normal in caliber. 3. Extensive consolidative opacities within the right upper lobe consistent with pneumonia. 4. Trace right pleural effusion with atelectasis. 5. Cardiomegaly. 6. Hepatomegaly. Periportal edema isnoted, nonspecific but possibly related to fluid volume status although hepatitis and ascending biliary infection, among other causes, cannot be excluded. 7. Diffuse gallbladder wall thickening, nonspecific. No hyperdense gallstones are identified. This could be secondary to fluid volume status butis nonspecific. Could further correlate with gallbladder ultrasound if clinically favored. 8. Significant interval decrease in size of the retroperitoneal and iliac chain lymph nodes since the prior study. No new lymphadenopathy is seen within the abdomen or pelvis. 9. Worsening osseous metastasis.Ordered By: ESTEPHANIE DURAN Interpreted By: Bean Cisneros MD, 12/15/2022 3:[address] HEAD WO CON Result Date: 12/15/2022 IMPRESSION: No CT evidence of an acute intracranial abnormality. Ordered By: ESTEPHANIE DURAN Interpreted By: Jewel Shaver MD, :16 PM XR CHEST PORTABLE Result Date: 12/17/2022 IMPRESSION: Interval decrease in size of right upper lobe pulmonary consolidation. Ordered By: ESTEPHANIE DURAN Interpreted By: Kevin Leos MD, 12/17/2022 10:49 AM XR CHEST PORTABLE Result Date: 12/15/2022 IMPRESSION: Interval removal of the ET tube since the prior study. Otherwise, no significant interval change. Ordered By: ESTEPHANIE DURAN Interpreted By: Bean Cisneros MD, 12/15/2022 7:23 PM ASSESSMENT & PLAN Crystal Capone is a very pleasant 32-year-old male who I had the pleasure of meeting with today for follow up. Chest pain with elevated troponin - likely demand mediated in the setting of septic shock. Chest pain characteristics are atypical for angina. EKG shows no acute ischemic changes, troponin is trending down. Troponin peaked at 18,000.Echocardiogram did show mildly reduced LVEF with wall motion abnormalities in the anteroseptal and i nferior mclain with restricted posterior leaflet of the mitral valve causing at least moderate regurgitation. -Cardiac catheterization with no significant CAD. Troponin likely demand in the setting of septic shock. 2. Septic shock secondary to RUL pneumonia in an immunocompromised host - on IV antibiotics. Hemodynamics improving. Management per primary 3. Stage IV hodgkin's lymphoma and pancytopenia - oncology following 4. LEON - renal function improving. 5. Cardiomyopathy LVEF is mildly reduced with wall motion abnormalities. No significant CAD. Nonischemic. I will planon following him as an outpatient with repeat FRANCISCO and cardiac MRI. Please start him on low-dose beta-blockers and if he is not tolerated that can be discontinued before discharge. Would not initiate Entresto or other medical therapy given the borderline blood pressure and recovering sepsis. We willtry to uptitrate GDMT as an outpatient if he tolerated beta- kely in the hospital. 6. Mild regurgitation At least moderate by transthoracic echo with restriction of the posterior leaflet/primary MR, catheter no significant CAD or ischemic culprit. I will plan on proceeding with FRANCISCO in 3 to 4 weeks as anoutpatient. I will see him back in [place] when he gets his chest pain after that I will reassign him to one of my colleagues in [place] or [place] for local follow-up Cardiology will sign off for now. Please follow-up if any questions or concerns. All questions/concerns were answered to the patient's satisfaction and we are all in agreement withthis plan proposed above understanding all the risks and benefits. Thank you for allowing us to participate in the care of your patient and please do not hesitate to reach out to us if any questions or concerns. Kaycee Oliver M.D. (M.B.B.S.), [facility], [facility] Interventional and Structural Cardiology Co-Director, Structural Heart Program [facility] [place], [place] * Annette Wayne, OT - 12/18/2022 10:00 AM CDT OT Initial Evaluation Discharge Recommendation: home with assistance ; No skilled OT DME equipment recommendation: currently has DME in place Activity Recommendation for trauma counsellor: modified independent with 2ww as needed ; defer activity to RN *recommend pt sit in chair to eat all meals and ambulate in the [place] several times per day to maintain strength 12/18/22 1400 Therapy Visit OT Received On 12/18/22 OT Evaluation Completed on 12/18/22 Reason for admission Patient is a 32 year old male who presented with generalized weakness, fatigue, vomiting, cough. He was found to be hypotensive, tachycardic, and febrile. He was intubated on arrival due to respiratory failure. 12/15 he was extubated. 12/15 demonstrated elevated troponin and chest pain. Cardiology suggesting this is likely demand. Underwent LHC on 12/15 which was normal. Admitted to the hospital with septic shock, acute hypoxemic respiratory failure, RUL PNA....Therapy orders:evaluate and treat Ordering Provider Dr. Gauthier Verified Two Patient Identifiers Yes Patient consents to therapy Yes Acute Inpatient OT Time Calculation OT Start Time 0944 OT Stop Time 1001 OT Time Calculation (min) 17 min Precautions Other IV, telemetry Subjective Subjective RN ok'd therapy visit. Patient sitting upright in bed upon arrival, agreeable to therapyevaluation. Home Living Home Living Comments Patient lives with his aunt and girlfriend in a single story home with 2 stepsto enter. Tub shower with seat and grab bars, standard height toilet. Was bathing and dressing independently. Uses a cane to get around. Reports that his girlfriend provides transportation. He does not have 24/7 assistance. Reports one recent fall prior to admission. Pain Pain No Activity Tolerance Endurance Endurance does not limit participation in activity Vision - Complex Assessment Additional Comments no acute changes in vision reported or noted Cognition Overall Cognitive Status WFL Arousal/Alertness Appropriate responses to stimuli Attention Span Appears intact Memory Appears intact Orientation Level Oriented X4 Following Commands Follows all commands and directions without difficulty Safety Judgment Good awareness of safety precautions Awareness of Errors Good awareness of errors made Deficits Fully aware of deficits Problem Solving Able to problem solve independently Comments Pt followed all instructions appropriately. Pt cooperative t/o session. Motor Planning Appears intact Perseveration Not present Initiation Appears intact Overall Extremity Assessment Upper Extremity BUE AROM and strength WFL RUE Assessment RUE Assessment WFL LUE Assessment LUE Assessment WFL Hand Function Gross Grasp Functional Coordination Functional Sensation Light Touch No apparent deficits ADL Additional Comments independent with all ADLs this date Bed Mobility Supine to Sit Independent Functional Transfers Sit to Stand Modified independence Bed to Chair Modified independence (2ww) Functional Mobility mod indep with 2ww in room/bathroom and [place] mocking greater than household distances Balance Sitting - Static Independent Sitting - Dynamic Independent Standing - Static Independent Standing - Dynamic Independent;Modified independence;Support of both upper extremities Other (Comment) no LOB noted, use of 2ww for longer distances ... overall steady with and without AD Proprioception Proprioception No apparent deficits Assessment Occupational Profile and History Complexity Low (Brief) Performance Skills Deficits Other (Comment) (none) Performance Deficit Level Low (1-3 deficits) Clinical Decision Making Low (no modifications) Complexity Level of Evaluation Low Prognosis Good OT Assess/Eval Other (Comment) Upon OT assessment this date, patient demonstrates ability to complete ADLs, transfers, and functional mobility as at baseline. Pt with no skilled OT needs at this time; OT will sign off with patient in agreement. Patient/Family Training Other (Comment) technical publications writer educated patient regarding fall prevention, safety, precautions, therapy plan/recs; pt verbalized understanding Recommendation OT Recommendation Home with assistance;No skilled OT;Ambulate with nurse OT Equipment Recommended Currently has DME in Place No Skilled OT No acute OT goals identified Plan Progress Discontinue OT OT - Next Appointment 12/18/22 If this is the last treatment note, it will serve as the discharge summary Yes End of Session End of Session Safety Call light within reach;Nursing aware of session;Transfer status education End of Session Comment pt seated in chair, all needs in reach Education: Primary Learners Name: Crystal Capone Primary Language of learner: Turkmen Patient was educated on precautions exercises transfers ADLs balance equipment therapy plan safety. Education was completed one to one verbal this date. Preference of learning new concepts one to one verbal Barriers to education this date were fatigue. Response to education this date verbalized understanding demos adequately. * Jerrell Arcos, PT - 12/18/2022 9:46 AM CDTSummary: PT Eval PT Initial Evaluation Discharge Recommendation: home with assistance No skilled P/T DME equipment recommendation: none Activity Recommendation for trauma counsellor: Up with 1, 2ww, GB, please ambulate 4-5 times per day 12/18/22 0900 Therapy Visit Ordering Provider Dr. Gauthier PT Received On 12/18/22 Subjective RN ok'd therapy visit. Patient sitting upright in bed upon arrival, agreeable to therapyevaluation. Reason for admission Patient is a 32 year old male who presented with generalized weakness, fatigue, vomiting, cough. He was found to be hypotensive, tachycardic, and febrile. He was intubated on arrival due to respiratory failure. 12/15 he was extubated. 12/15 demonstrated elevated troponin and chest pain. Cardiology suggesting this is likely demand. Underwent LHC on 12/15 which was normal. Admitted to the hospital with septic shock, acute hypoxemic respiratory failure, RUL PNA....Therapy orders:evaluate and treat Verified Two Patient Identifiers Yes Patient consents to therapy Yes Acute Inpatient PT Time Calculation PT Start Time 0946 PT Stop Time 1002 PT Time Calculation (min) 16 min Precautions Other IV, tele Home Living Home Living Comments Patient lives with his aunt and girlfriend in a single story home with 2 stepsto enter. Tub shower with seat and grab bars, standard height toilet. Was bathing and dressing independently. Uses a cane to get around. Reports that his girlfriend provides transportation. He does not have 24/7 assistance. Reports one recent fall prior to admission. Pain Pain No Activity Tolerance Endurance Endurance does not limit participation in activity Cognition Overall Cognitive Status WFL Arousal/Alertness Appropriate responses to stimuli Attention Span Appears intact Memory Appears intact Orientation Level Oriented X4 Following Commands Follows all commands and directions without difficulty Safety Judgment Good awareness of safety precautions Awareness of Errors Good awareness of errors made Deficits Fully aware of deficits Problem Solving Able to problem solve independently Motor Planning Appears intact Perseveration Not present Initiation Appears intact Sensation Light Touch No apparent deficits Proprioception Proprioception No apparent deficits Overall Extremity Assessment Lower Extremity BLE AROM/Strength WFL Bed Mobility Supine to Sit Independent TRANSFERS Sit to Stand Modified independence Bed to Chair Modified independence (2ww) Gait Gait Assistance Modified independence Assistive Device 2 Wheeled walker Distance Ambulated (ft) 400 ft Pattern WFL Balance Sitting - Static Independent Sitting - Dynamic Independent Standing - Static Independent Standing - Dynamic Independent;Modified independence;Support of both upper extremities Other (Comment) no LOB noted, use of 2ww for longer distances ... overall steady with and without AD Assessment Personal Factors/Comorbidities Impacting Care 3-4 personal factors/comorbidities Examination of Body Systems Moderate (3 or more Elements) Objectives of Body Systems (No new deficits) Clinical Presentation of Patient Stable uncomplicated Complexity Level of Evaluation Low Prognosis Good PT Assess/Eval Other (Comment) Patient is a 32 year old male admitted to the hospital with septic shock, acute hypoxemic respiratory failure, RUL PNA. Currently patient appears to be functioning at his baseline level. He completes all mobility with independence/modified independence. PT to sign offas patient is not demonstrating any acute skilled physical therapy deficits at this time. Patient/Family Training Other (Comment) technical publications writer educated patient regarding fall prevention, safety, precautions, therapy plan/recs; pt verbalized understanding Recommendation PT Recommendation Home with assistance;No skilled PT No Skilled PT No acute PT goals identified Plan Progress Discontinue PT PT - Next Appointment 12/18/22 If this is the last treatment note,it will serve as the discharge summary Yes End of Session End of Session Safety Call light within reach;Nursing aware of session;Transfer status education Education: Primary Learners Name: Crystal Capone Primary Language of learner: Turkmen Patient was educated on precautions exercises transfers ADLs balance bed mobility equipment therapy plan gait safety. Education was completed verbal hands-on demonstration this date. Preference of learning new concepts verbal hands-on demonstration Barriers to education this date were none. Response to education this date demos adequately. * Estephanie Duran MD - 12/18/2022 9:32 AM CDT Critical Care Medicine [facility], [place], [place] 25/01 Pager: [phone] Daily Progress Note Assessment and Plan: Crystal Capone is a 32-year-old male admitted 12/14/2022 with Septic shock. Septic shock, now off pressors Acute hypoxemic respiratory failure, requiring intubation and mechanical ventilation, now extubated Immunocompromised host, neutropenic Right upper lobe pneumonia Pancytopenia Right upper chest pain, pleuritic Elevated troponins, possibly demand / stress Severe lactic acidosis, improving Acute kidney injury, non oliguric ? 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 PLAN: Off all drips, continue PRN pain meds, holding home morphine for now, continue norco, lidocaine patch for chest pain,seems pleuritic on side of pneumonia On NC O2, stable for now, extubated 12/15, doing well Pressors weaned off, echo showing EF 45 %, with WMA, cath neg, stopped ASA and statin, weaning midodrine CT neg for PE, SUP on board, Cdiff neg, passing gas Continue broad spectrum abx, bronched on admission, neutropenia has improved, ID consulted, CT reviewed, neg biofire, Patient s neutropenia has improved, hb stable, remains thrombocytopenic, but improving started on lovenox Blood counts have improved, neupogen stopped, onc following started on DVT PPX Electrolytes stable this am PT ./OT and advance diet, DC [place] DVT Prophylaxis: SCDS, lovenox Code Status: Full Code Disposition: transfer out of ICU Critical Care time spent in evaluation and management of a critically ill or injured patient is 42 minutes, such that the critical illness or injury acutely impairs one or more organ system: (neuro, cardio, ID, renal, resp, heme, onc) such that there is a high probability of imminent or life-threatening deterioration in the patient's condition needing immediate attention or presence of critical care physician near bedside for the above time . Complex decisions were made to manipulate and support multiple organ systems. The time listed is exclusive of any procedures which may have been performed. Critical care time includes time spent at bedside performing history and physical exam, time spent researching patient prior to interaction with patient, time spent discussing findings and treatment plan with patient and/or family, time spent discussing patient with consultants and colleagues, time spent reviewing pertinent laboratory and radiographic evaluations, time spent re-evaluating patient, or time spent discussing patient with nursing staff. All of the patient's and his family's questions were answered, and the plan of care going forward was outlined to them. ESTEPHANIE DURAN MD 12/18/2022 9:32 AM ICU Timeline: Hospital day: 4 ICU day: 3d 16h Crystal Capone is a 32-year-old male admitted with septic shock. Patient has a history of stage IV Hodgkin's lymphoma and follows up with Dr. Ashford. He is on active chemotherapy with last session a few weeks back. He presented to our hospital with chief complaint of generalized weakness, fatigue, vomiting and cough. He was found to be hypotensive with systolic blood pressure in the 80s and diastolic in the 40s, tachycardic, febrile, and slightly hypoxemic requiring low-dose supplemental oxygen.He was resuscitated with 2 L IV fluids and thereafter was started on Levophed. He was noted to havea right upper lobe pneumonia on chest x-ray. Lactic acid was elevated at 8.7. WBC count was 0.2, hemoglobin 6.9. He received 1 unit PRBC. He received vancomycin, cefepime and azithromycin. He had mild elevation in troponin at 239, EKG showed sinus tachycardia. Creatinine was elevated at 3.2. Currently, patient appears to be in severe respiratory distress and has pleuritic chest pain. He is alert and oriented x4 and does not have any focal neurological deficits. Past 24 hours events: Off pressors, on NC o2, making urine, Cr improved, doing well this am, passing gas Objective: Body mass index is 26.94 kg/m??. Current vital signs Blood pressure 105/75, pulse 62, temperature 97.5 ??F (36.4 ??C), temperature source Tympanic, resp. rate 29, height 5' 6 (1.676 m), weight 75.7 kg (166 lb 14.2 oz), SpO2 95 %. Vitals: 12/18/22 0900 BP: Pulse: 62 Resp: 29 Temp: SpO2: 95% 24 hour BP and temperature range @[id number]@ Temp (24hrs), Av.3 ??F (36.3 ??C), Min:95.5 ??F (35.3 ??C), Max:98.6 ??F (37 ??C) Input/Output 12/17 0700 - 12/18 0659 In: 680 [P.O.:480] Out: 2250 [Urine:2250] Intake/Output Summary (Last 24 hours) at 12/18/2022 0932 Last data filed at 12/18/2022 0720 Gross per 24 hour Intake 780 ml Output 2115 ml Net -1335 ml Physical exam: Gen: Patient AAO x 3, appears well Neuro: Moving all extremities, no deficit appreciated Head: Atraumatic and normocephalic Eyes: Pupils equal round and reactive, no jaundice ENT: Moist mucous membrane, orally intubated Neck: No JVD. No CVC, port in place Cardiac: S1, S2, no added sounds Pulm: reduced right sided air entry, no wheezing or crackles Abdomen: Soft and nontender, bowel sounds present Skin: No rash or erythema Extremities: No edema Current inpatient medications: Current Facility-Administered Medications: DULoxetine (CYMBALTA) capsule 60 mg, 60 mg, Oral, Daily, Estephanie Duran MD, 60 mg at 12/18/22928 famotidine (PF) (PEPCID) injection 20 mg, 20 mg, Intravenous, 2 times per day, 20 mg at 12/15/222002 OR famotidine (PEPCID) tablet 20 mg, 20 mg, Tube, 2 times per day, Estephanie Duran MD, 20 mg at12/18/22928 gabapentin (NEURONTIN) capsule 300 mg, 300 mg, Oral, TID, Estephanie Duran MD, 300 mg at 12/18/22928 heparin (porcine) injection 5,000 Units, 5,000 Units, Subcutaneous, 3 times per day, Estephanie Duran MD, 5,000 Units at 12/18/22 0631 HYDROcodone-acetaminophen (NORCO) 5-325 MG tablet 1 tablet, 1 tablet, Oral, Q6H PRN, Estephanie Duran MD, 1 tablet at 12/16/22 0053 insulin lispro (HUMALOG) injection 0-12 Units, 0-12 Units, Subcutaneous, 4x Daily AC and at bedtime, Estephanie Duran MD, 3 Units at 12/16/22 1134 iopamidol (ISOVUE-370) 76 % injection 100 mL, 100 mL, Intravenous, ONCE PRN, Estephanie Duran MD ipratropium-albuterol (DUONEB) 0.5-2.5 (3) MG/3ML nebulizer solution 3 mL, 3 mL, Nebulization, Q4H PRN, Natividad Massey MD, 3 mL at 12/18/22 0251 lidocaine 4 % patch 1 patch, 1 patch, Transdermal, Q24H, Estephanie Duran MD, 1 patch at 12/18/22 0929 meropenem (MERREM) 2 g in sodium chloride 0.9 % 100 mL IVPB, 2 g, Intravenous, Q8H, Estephanie Duran MD, Last Rate: 33.3 mL/hr at 12/18/22 0720, 2 g at 12/18/22 0720 midodrine (PROAMATINE) tablet 5 mg, 5 mg, Oral, TID WC, Estephanie Duran MD, 5 mg at 12/18/22 0929 normal saline 0.9 % flush 3-10 mL, 3-10 mL, Intravenous, Q8H, Lon Gauthier MD, 10 mL at 12/18/22 0930 normal saline 0.9 % flush 3-10 mL, 3-10 mL, Intravenous, PRN, Lon Gauthier MD ondansetron (ZOFRAN) injection 4 mg, 4 mg, Intravenous, Q8H PRN, Lon Gauthier MD senna-docusate (SENOKOT-S) 8.6-50 MG tablet 1 tablet, 1 tablet, Oral, BID, Estephanie Duran MD, 1 tablet at 12/17/22 2100 Data Review: Recent Labs 12/16/22 0855 12/16/22 1621 12/17/22 0005 12/17/22 0800 12/18/22 0445 WBC 3.40* -- -- 6.61 18.70* HGB 8.2* < > 8.9* 8.7* 9.6* HCT 24.3* < > 25.7* 25.6* 28.7* MCV 74.8* -- -- 75.5* 77.4* PLT 57* -- -- 87* 118* RBC 3.25* -- -- 3.39* 3.71* < > = values in this interval not displayed. Recent Labs Lab 12/16/22 0625 12/17/22 0550 12/17/22 1735 12/18/22 0445 NA 139 142 142 139 K 3.7 2.6* 4.4 3.9 CL 107 107 108* 106 CO2 24.0 28.5 27.2 26.8 AGAP 8.0 6.5 6.8 6.2 BUN 25* 24* 22* 22* CR 1.19 0.86 0.73 0.63* GLU 139* 101 124* 127* CA 8.2* 8.7 9.1 8.7 TP 5.8* 5.7* -- 5.8* ALB 2.7* 2.8* -- 2.8* TBIL 0.8 0.7 -- 0.6 ALKP 72 72 -- 104 AST 166* 69* -- 32 ALT 115* 96* -- 84* Coagulation: No results for input(s): INR, APTT in the last 72 hours. 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 Central Office: Ed DENNISONB: 1990 Requested By: ESTEPHANIE DURAN Order Number: [id number] Reading MD: Aliyah Vazquez Measurements Intervals [place] Rate: 88 P: 60 OR: 135 QRS: 65 QRSD: 122 T: 47 QT: 382 QTc: 464 Interpretive Statements SINUS RHYTHM MODERATE INTRAVENTRICULAR CONDUCTION DELAY NONSPECIFIC ST & T-WAVE ABNORMALITY ECG 12 lead Narrative [place] [address] [place] [address] Test Date: 2022-12-15 Pat Name: CRYSTAL CAPONE Department: 1 Room: [place] [address] 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 Central Office: Ed DENNISONB: 1990 Requested By: ESTEPHANIE DURAN Order Number: [id number] Reading MD: Aliyah Vazquez Measurements Intervals [place] Rate: 89 P: 63 OR: 135 QRS: 63 QRSD: 124 T: 44 QT: 365 QTc: 444 Interpretive Statements SINUS RHYTHM MODERATE INTRAVENTRICULAR CONDUCTION DELAY NONSPECIFIC ST & T-WAVE ABNORMALITY ECHO: reviewed ------ ESTEPHANIE DURAN MD 12/18/2022 9:32 AM * Roge Magana RD - 12/18/2022 9:28 AM CDT CLINICAL DIETITIAN ASSESSMENT NUTRITION ASSESSMENT Past Medical History: Diagnosis Date Hodgkin lymphoma, unspecified, unspecified site (CMS/HCC) Initial History (12/18/2022): Registered Dietitian (RD) completing an initial assessment secondary to MST score of 3. Patient is a 32-year-old male admitted secondary to Septic shock (CMS/HCC) [A41.9, R65.21]. Per H&P patientw/ PMH of IV Hodgkin's lymphoma. Most recent chemotherapy was a few weeks ago. Was intubated at admission but now extubated and on diet. Weight history (12/18/2022): Patient reports stable weight recently, UBW between 158-165# Per EMR comparing weight of 75.3 kg on 10/27/22, to bed weight of 75.7 kg on 12/14/22; no weight loss noted in the last 2 month(s). Diet history (12/18/2022): Patient reports decreased appetite for at least the last few months, patient reports eating at most 1-2 meals a day and they were smaller meals, states that current last fewdays have been pretty typical of the last few months (887 kcal/day (39% estimated needs) and 26 gm/day protein (23% estimated needs)). (Significant, severe) Food allergies/intolerances: NKFA per patient Cultural/[employer] food preferences: None reported by patient Cardiorespiratory: in room air Neuro: Alert/oriented per EHR Edema: no edema noted per EHR GI: abdomen WDL with positive bowel sounds per EHR; no BM documented this admission (no BM x4 days;on bowel regimen) Chewing/swallowing problems: Patient reports small difficulty with chewing some hard meats such as steak Skin: no breakdown noted Nutrition-focused physical findings: Mild muscle loss noted in the following area(s): temporalis. Labs: Reviewed. No nutrition-related concerns noted at this time. Recent Labs Lab 12/16/22 1555 12/16/22 2035 12/17/22 0558 12/17/22 1150 12/17/22 1728 12/17/22 2040 12/18/22 0634 GLUCOSEPOC 142* 104 95 144* 125* 146* 134* SODIUM S/P/B Date Value Ref Range Status 12/18/2022 139 136 - 145 MMOL/L Final 12/17/2022 142 136 - 145 MMOL/L Final POTASSIUM S/P/B Date Value Ref Range Status 12/18/2022 3.9 3.5 - 5.1 MMOL/L Final CHLORIDE S/P/B Date Value Ref Range Status 12/18/2022 106 98 - 107 MMOL/L Final CO2 Date Value Ref Range Status 12/18/2022 26.8 21.0 - 32.0 MMOL/L Final BUN Date Value Ref Range Status 12/18/2022 22 (H) 7 - 18 MG/DL Final CREATININE S/P/B Date Value Ref Range Status 12/18/2022 0.63 (L) 0.70 - 1.30 MG/DL Final GLUCOSE Date Value Ref Range Status 12/18/2022 127 (H) 74 - 106 MG/DL Final CALCIUM S/P/B Date Value Ref Range Status 12/18/2022 8.7 8.5 - 10.1 MG/DL Final Meds: Reviewed. No nutrition-related concerns noted at this time. DULoxetine 60 mg Oral Daily famotidine 20 mg Intravenous 2 times per day Or famotidine 20 mg Tube 2 times per day gabapentin 300 mg Oral TID heparin (porcine) 5,000 Units Subcutaneous 3 times per day insulin lispro 0-12 Units Subcutaneous 4x Daily AC and at bedtime lidocaine 1 patch Transdermal Q24H meropenem 2 g Intravenous Q8H midodrine 5 mg Oral TID WC normal saline 3-10 mL Intravenous Q8H senna-docusate 1 tablet Oral BID Anthropometrics: Admission weight: 75.3 kg (Date: 12/14/22; Method: Bed) Last 5 Recorded Weights 12/14/22 1737 12/16/22 0600 Weight: 75.3 kg (166 lb 0.1 oz) 75.7 kg (166 lb 14.2 oz) Weight status: Weight remains stable. Height: 167.6 cm ABW: 75.7 kg IBW: 64.4 kg (ABW is 118% of IBW) UBW: 71.7 kg (ABW is 106% of UBW) DW: 75.7 kg BMI: 26.9 kg/m?? (Overweight) Estimated Nutrient Needs: Calories: 2271 - 2650 kcal/day based on 30-35 kcal/kg, using ABW Protein: 114 - 151 gm/day based on 1.5-2 gm/kg, using ABW Fluid: 2271 - 2650 mL/day based on 1 mL/kcal estimated needs Current diet order: Diet general Appropriate Current diet appropriate? Yes; as general diet provides the most variety and encourages PO intake. Current intake sufficient to meet nutritional needs? No; Per review of recorded intake per EHR, ordered meals per [employer] and patient/RN reported intake of 100% of meals, it is estimated that patient consumed an average of 887 kcal/day (39% estimated needs) and 26 gm/day protein (23% estimated needs) over the past 2 days. Fluid intake appears adequate for hydration. Pain affecting PO intake? No Nutrition Education: no needs identified at this time NUTRITION DIAGNOSIS Inadequate oral intake related to decreased appetite likely secondary to cancer/cancer treatment asevidenced by patient meeting <50% of estimated needs. Nutrition risk: moderate NUTRITION INTERVENTION Nutrition prescription: General diet + ONS (Ensure Plus High Protein TID) Plan: 1. Continue current diet order as tolerated and encourage good PO intake of meals. 2. Initiate ONS of Ensure Plus High Protein TID with meals. 3. Weigh patient weekly. Discharge nutrition plan: Discharge needs assessed. Will provide/update discharge instructions as needed. MONITORING/EVALUATION 12/18/2022 Goals: 1. PO intake will meet at least 75% of estimated kcal/protein needs based on 3- day average intake per review of EHR and [employer] at follow up. 2. Weight stable within 2% of current weight (12/16/22: 75.7 kg) at follow up. Roge Magana RD, LDN * Charles Diaz RN - 12/18/2022 6:53 AM CDT Problem: Reduced risk for falls/injury Goal: Reduced Risk for Falls/Injury Outcome: Progressing Problem: Reduced risk for falls/injury Goal: Reduced Risk of Polypharmacy Outcome: Progressing Problem: Fluid Volume - Imbalanced Goal: Absence of imbalanced fluid volume signs and symptoms Outcome: Progressing Problem: Gas Exchange - Impaired Goal: Adequate oxygenation Outcome: Progressing Problem: Infection - Risk of, Central Venous Catheter-Associated Bloodstream Infection Goal: Absence of infection signs and symptoms Outcome: Progressing Problem: Infection - Risk of, Septic Shock Goal: Absence of infection signs and symptoms Outcome: Progressing Problem: Pain - Acute Goal: Achieve acceptable pain level Outcome: Progressing Goal: Reduced pain sensation Outcome: Progressing Problem: Skin Integrity - Risk of, Impaired Goal: Skin integrity intact Outcome: Progressing Problem: Tissue Perfusion - Cardiopulmonary, Altered Goal: Circulatory function within specified parameters Outcome: Progressing Problem: Venous Thromboembolism - Risk of Goal: Absence of deep venous thrombosis Outcome: Progressing Problem: Discharge Planning Goal: Knowledge of discharge instructions Outcome: Progressing Problem: Fluid Volume - Risk of, Imbalanced Goal: Absence of hypovolemia Outcome: Progressing Goal: Lactate, serum, within specified parameters Outcome: Progressing Goal: Procalciton within specified parameters Outcome: Progressing Problem: Gas Exchange - Impaired Goal: Absence of cyanosis signs and symptoms Outcome: Progressing Goal: Central or mixed venous oxygen saturation within specified parameters Outcome: Progressing Problem: Airway Clearance - Ineffective Goal: Patent airway Outcome: Progressing Problem: Infection - Risk of, Central Venous Catheter-Associated Bloodstream Infection Goal: Absence of Central Venous Catheter Associated Bloodstream Infection Signs and Symptoms Outcome: Progressing * Rick Crowder PT - 12/17/2022 2:54 PM CDT orders received. Chart reviewed. Attempted to see pt for PT eval. RN reports pt just returned from manager cardiac cath less than an hour ago and is still very lethargic. Will check back as schedule allows and as pt is appropriate. * Shawna Aguirre OT - 12/17/2022 12:11 PM CDT OT orders received. Chart reviewed. Attempted to see pt for therapy evaluations. RN reports pt justreturned from manager cardiac cath less than an hour ago and is still very lethargic. Will check back as schedule allows and as pt is appropriate. By: MAREK Hudson, OTR/L; 12/17/22 * Duc Zavaleta MD - 12/17/2022 11:12 AM CDT [facility] Heme/Onc Brief Update Note Attending Provider: Dr. Zavaleta PCP: JAY NARAYANAN DO Reason for Consult: Neutropenia Severe sepsis Stage IV A Hodgkin's lymphoma ONCOLOGIC HISTORY: Prior workup, including an excisional lymph node biopsy, was positive for classical Hodgkin's disease. A CT chest scan from 02/24/2022 was positive for adenopathy. Bone marrow biopsy and aspirate was also positive for Hodgkin's disease. These findings were consistent with Stage ALANA disease. The patient completed two cycles of ABVD chemotherapy without issues. However, a restaging PET scan revealeda mixed response to treatment with some areas of progression. We was subsequently switched to BEACOPP chemotherapy and received 3 cycles. His last cycle of BEACOPP was completed on . IMPRESSION: 32 year old male with a past medical history of stage IV Hodgkin's disease, status post ABVD and BEACOPP chemotherapy who was admitted to the hospital with hypoxic respiratory failure requiring intubation. An admission CT scan of the chest, abdomen and pelvis with contrast reported possible progression of his known Hodgkin's disease as well as diffuse multifocal pneumonia. Based on our chart review, the patient's clinical status has improved dramatically. Today, his hemoglobin is 8.9 g/dL, his WBC count is 3.4 with an ANC of 2.9, and his platelets are 57K. There is no need for transfusions at time and the patient[s neutrophil count has responded dramatically to G-CSF. His multipleelectrolyte abnormalities are being addressed by his primary care team. PLAN/RECOMMENDATIONS: - Discontinue G-CSF at this time ,given his current neutrophil count of 2.9. Be aware that discontinuing his G-CSF may cause up to a 50% decrease in his ANC, which should keep him out of neutropenic danger. - The patient no longer requires fungal and viral prophylaxis, particularly since his neutropenia was of such short duration. - Given the findings of recent diagnostic imaging study results, the patient will need to have a discussion with Dr. Ambrocio Ashford in the outpatient [facility] Hematology Oncology clinic about additional treatment options since he appears to have refractory Hodgkin's disease. Thank you for consulting [facility] Hematology/Oncology service. We will sign off. Please contact us for additional questions or concerns. Attending Attestation: This case was discussed with me this morning during rounds with the fellow, the resident and the medical student, and this note summarizes my findings and recommendations, based on my own review of his hospital course and recent laboratory study results. * Ro Aguilar RN - 12/17/2022 10:48 AM CDT LOS # 3 DAYS Chart reviewed. Pt asleep at time of screening. KCL and Magnesium gtt. Infusaport, art line and rojas. Per chart review anticipate heart cath today then will discuss dispo pending results. Will follow and assist as needed. * Nuris Mantilla MD - 12/17/2022 10:19 AM CDTSummary: [facility] ID Progress Note [facility] INFECTIOUS DISEASE PROGRESS NOTE Attending Provider:Dr. Mantilla PCP: JAY NARAYANAN DO Reason for Consultation: Septic shock 2/2 RUL PNA, immunocompromised ASSESSMENT AND PLAN Crystal Capone is a 32-year-old male with medical history of Stage 4 NHL currently undergoing chemotherapy. Admitted for septic shock 2/2 RUL PNA s/p intubation. [facility] has been consulted for antibiotic management. Diagnoses: Septic shock likely source RUL PNA AHFR s/p intubation and extubation Stage 4 NHL, pancytopenia, immunocompromised Lactic acidosis, improving LEON, improving Antimicrobial Regimen Vancomycin IV ( 12/14 - 12/16). Bactrim 10mg/kg/d IV (12/14- 12/16) Azithromycin 500mg IV Qd (12/15- 12/17) Micafungin 100mg IV Qd (12/14-12/17) Meropenem 1g IV Q12h (12/14- present) [facility] Infectious Disease Team Recommendations - Patient seen this am with history, labs/cultures, imaging, and antibiotics reviewed as above. Extubated, on RA but still has a cough. - Continue meropenem for now however will continue to deescalate antibiotics of patient continues to do well clinically and remains afebrile. - Discontinue azithromycin and micafungin. - Continue to follow bronchoscopy and blood cultures. - Plan to deescalate antibiotics pending culture results Thank you for consulting [facility] Disease, we will continue to follow. [facility] Infectious Disease 12/17/2022 Teaching physician note: Infectious Diseases Attending Physician: Patient personally interviewed and examined. Labs and vitals reviewed. [facility] Infectious Disease Fellow/Resident note reviewed and findings verified. Case discussed with the Infectious Disease team SUBJECTIVE Patient was evaluated at bedside. Afebrile. On room air. Denies shortness of breath. Endorsing cough with sputum production. He Denies fevers, chills, and night sweats. Denies nausea, vomiting, and diarrhea. Review of Systems 10 point ROS negative unless addressed above OBJECTIVE Infectious Evaluation Summary SCr 2.36 > 1.72 > 1.19 > 0.86 (LEON, however, downtrending) WBC 6.61 LA: 4.3 > 2.4 Troponin 19,000 > 9,700 Images CXR (12/14): RUL PNA, mild central interstitial prominence CXR (12/17): RUL PNA, slightly improved compared to prior. CT C/A/P: RUL PNA, hepatomegaly with periportal edema (differential includes ascending biliary treeinfection), diffuse gallbladder thickening, interval worsening osseus mets. EKG (12/15): ST changes noted. Micro (12/14) Blood Culture x2: NGTD (12/14) blood culture, line: NGTD (12/14) Bronchoscopy: - lavage culture: alpha strep, micrococcus - Acid Fast: Negative - Fungal culture: pending - TB/AFB culture: pending (12/15): Induced sputum Cx: alpha strep (12/15) Biofire: negative (12/14) MRSA PCR: negative Histo Ag: pending Drug Monitoring Filed Vitals: 12/17/22 0600 12/17/22 0700 12/17/22 0800 12/17/22 0900 BP: 113/67 114/61 110/62 Pulse: 81 79 77 71 Resp: 26 30 28 (!) 32 Temp: 97.9 ??F (36.6 ??C) TempSrc: SpO2: 98% 95% 96% 97% Weight: Height: Physical Exam General: Alert and oriented, lying in bed. On room air. Eye: Normal conjunctiva, No scleral icterus. HENT: Normocephalic, AT Neck: Supple, Trachea midline Respiratory: Coarse on right anterior and lateral lung wells. Respirations are non-labored, Breathsounds are equal Cardiovascular: Normal rate, Regular rhythm, No edema. Gastrointestinal: Soft, Non-tender, Non-distended Integumentary: Warm and dry, No rash. Neurologic: alert and oriented. No focal deficits. Psychiatric: cooperative. Current Facility-Administered Medications: aspirin chewable tablet 81 mg, 81 mg, Oral, Daily, Natividad Massey MD, 81 mg at 12/17/22 0800 [START ON 12/18/2022] atorvastatin (LIPITOR) tablet 80 mg, 80 mg, Oral, Nightly at bedtime, Estephanie Duran MD azithromycin (ZITHROMAX) 500 mg in NS 250 mL IVPB, 500 mg, Intravenous, Q24H, Estephanie Duran MD, Stopped at 12/16/22 1545 DULoxetine (CYMBALTA) capsule 60 mg, 60 mg, Oral, Daily, Estephanie Duran MD, 60 mg at 12/17/22 0925 famotidine (PF) (PEPCID) injection 20 mg, 20 mg, Intravenous, 2 times per day, 20 mg at 12/15/222002 OR famotidine (PEPCID) tablet 20 mg, 20 mg, Tube, 2 times per day, Estephanie Duran MD, 20 mg at12/17/22 0800 fentaNYL (SUBLIMAZE) injection 50 mcg, 50 mcg, Intravenous, Q1H PRN, Estephanie Duran MD, 50 mcg at 12/15/22 1414 gabapentin (NEURONTIN) capsule 300 mg, 300 mg, Oral, TID, Estephanie Duran MD, 300 mg at 12/17/22 0925 HYDROcodone-acetaminophen (NORCO) 5-325 MG tablet 1 tablet, 1 tablet, Oral, Q6H PRN, Estephanie Duran MD, 1 tablet at 12/16/22 0053 insulin lispro (HUMALOG) injection 0-12 Units, 0-12 Units, Subcutaneous, 4x Daily AC and at bedtime, Estephanie Duran MD, 3 Units at 12/16/22 1134 iopamidol (ISOVUE-370) 76 % injection 100 mL, 100 mL, Intravenous, ONCE PRN, Estephanie Duran MD lidocaine 4 % patch 1 patch, 1 patch, Transdermal, Q24H, Estephanie Duran MD, 1 patch at 12/17/22 0925 meropenem (MERREM) 2 g in sodium chloride 0.9 % 100 mL IVPB, 2 g, Intravenous, Q8H, Estephanie Duran MD, Stopped at 12/17/22 0950 micafungin (MYCAMINE) 100 mg in sodium chloride 0.9 % 100 mL IVPB, 100 mg, Intravenous, Q24H, Lon Gauthier MD, Stopped at 12/16/22 1950 midodrine (PROAMATINE) tablet 10 mg, 10 mg, Oral, TID WC, Estephanie Duran MD, 10 mg at 12/17/22 0800 normal saline 0.9 % flush 3-10 mL, 3-10 mL, Intravenous, Q8H, Lon Gauthier MD, 10 mL at 12/17/22 0925 normal saline 0.9 % flush 3-10 mL, 3-10 mL, Intravenous, PRN, Lon Gauthier MD ondansetron (ZOFRAN) injection 4 mg, 4 mg, Intravenous, Q8H PRN, Lon Gauthier MD potassium phosphate 45 mmol in sodium chloride 0.9 % 250 mL IVPB, 45 mmol, Intravenous, Once, Florecita Hernandez MD, Last Rate: 71.4 mL/hr at 12/17/22 0925, 45 mmol at 12/17/22 0925 senna-docusate (SENOKOT-S) 8.6-50 MG tablet 1 tablet, 1 tablet, Oral, BID, Estephanie Duran MD, 1 tablet at 12/17/22 0925 tbo-filgrastim (GRANIX) 300 MCG/0.5ML injection 300 mcg, 300 mcg, Subcutaneous, Daily, Sheldon Chavez MD, 300 mcg at 12/17/22 1010 * Estephanie Duran MD - 12/17/2022 10:00 AM CDT Critical Care Medicine [facility], [place], [place] 25/01 Pager: [phone] Daily Progress Note Assessment and Plan: Crystal Capone is a 32-year-old male admitted 12/14/2022 with Septic shock. Septic shock, now off pressors Acute hypoxemic respiratory failure, requiring intubation and mechanical ventilation, now extubated Immunocompromised host, neutropenic Right upper lobe pneumonia Pancytopenia Right upper chest pain, pleuritic Elevated troponins, possibly demand ? NSTEMI Severe lactic acidosis, improving Acute kidney injury, non oliguric ? 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 PLAN: Off all drips, continue PRN pain meds, holding home morphine for now, continue norco, lidocaine patch for chest pain,seems pleuritic on side of pneumonia On NC O2, stable for now, extubated 12/15, continue diuresis as tolerated Pressors weaned off, echo showing EF 45 %, with WMA, continue ASA, NPO for cath today, started statin, cardiology consulted holding AC given low HB and plts CT neg for PE, SUP on board, holding bowel regimen for now given diarrhea at home, Cdiff neg Continue broad spectrum abx, continue atypical, antifungal coverage, bronched on admission, patientneutropenic and on chemo, quite immunocompromised, ID consulted, CT reviewed, neg biofire, Patient remains pancytopenic, neutropenia has improved, hb stable, remains thrombocytopenix Patient was not on eliquis prior to this, on SCDS, no chemical PPX due to low counts for now Received 160 meq K, phos and Mag, will recheck BMP later today PT ./OT and advance diet if no procedure planned DVT Prophylaxis: SCDS, holding currently due to low blood counts Code Status: Full Code Disposition: Continue ICU Status : shock, resp failure Critical Care time spent in evaluation and management of a critically ill or injured patient is 40 minutes, such that the critical illness or injury acutely impairs one or more organ system: (neuro, cardio, ID, renal, resp, heme, onc) such that there is a high probability of imminent or life-threatening deterioration in the patient's condition needing immediate attention or presence of critical care physician near bedside for the above time . Complex decisions were made to manipulate and support multiple organ systems. The time listed is exclusive of any procedures which may have been performed. Critical care time includes time spent at bedside performing history and physical exam, time spent researching patient prior to interaction with patient, time spent discussing findings and treatment plan with patient and/or family, time spent discussing patient with consultants and colleagues, time spent reviewing pertinent laboratory and radiographic evaluations, time spent re-evaluating patient, or time spent discussing patient with nursing staff. All of the patient's and his family's questions were answered, and the plan of care going forward was outlined to them. ESTEPHANIE DURAN MD 12/17/2022 10:01 AM ICU Timeline: Hospital day: 3 ICU day: 2d 16h Crystal Capone is a 32-year-old male admitted with septic shock. Patient has a history of stage IV Hodgkin's lymphoma and follows up with Dr. Ashford. He is on active chemotherapy with last session a few weeks back. He presented to our hospital with chief complaint of generalized weakness, fatigue, vomiting and cough. He was found to be hypotensive with systolic blood pressure in the 80s and diastolic in the 40s, tachycardic, febrile, and slightly hypoxemic requiring low-dose supplemental oxygen.He was resuscitated with 2 L IV fluids and thereafter was started on Levophed. He was noted to havea right upper lobe pneumonia on chest x-ray. Lactic acid was elevated at 8.7. WBC count was 0.2, hemoglobin 6.9. He received 1 unit PRBC. He received vancomycin, cefepime and azithromycin. He had mild elevation in troponin at 239, EKG showed sinus tachycardia. Creatinine was elevated at 3.2. Currently, patient appears to be in severe respiratory distress and has pleuritic chest pain. He is alert and oriented x4 and does not have any focal neurological deficits. Past 24 hours events: Off pressors, on NC o2, making urine, Cr improved, continues to have right sided pleuritic chest pain overnight, elevated trops Objective: Body mass index is 26.94 kg/m??. Current vital signs Blood pressure 110/62, pulse 71, temperature 97.9 ??F (36.6 ??C), resp. rate (!) 32, height 5' 6 (1.676 m), weight 75.7 kg (166 lb 14.2 oz), SpO2 97 %. Vitals: 12/17/22 0900 BP: 110/62 Pulse: 71 Resp: (!) 32 Temp: SpO2: 97% 24 hour BP and temperature range @[id number]@ Temp (24hrs), Av.3 ??F (36.8 ??C), Min:97.5 ??F (36.4 ??C), Max:99 ??F (37.2 ??C) Input/Output 12/16 0700 - 12/17 0659 In: 1770 [P.O.:720] Out: 3920 [Urine:3920] Intake/Output Summary (Last 24 hours) at 12/17/2022 1001 Last data filed at 12/17/2022 0900 Gross per 24 hour Intake 1170 ml Output 3830 ml Net -2660 ml Physical exam: Gen: Patient AAO x 3, appears weak and tired Neuro: Moving all extremities, no deficit appreciated Head: Atraumatic and normocephalic Eyes: Pupils equal round and reactive, no jaundice ENT: Moist mucous membrane, orally intubated Neck: No JVD. No CVC, port in place Cardiac: S1, S2, no added sounds Pulm: reduced right sided air entry, no wheezing or crackles Abdomen: Soft and nontender, bowel sounds present Skin: No rash or erythema Extremities: No edema Current inpatient medications: Current Facility-Administered Medications: aspirin chewable tablet 81 mg, 81 mg, Oral, Daily, Natividad Massey MD, 81 mg at 12/17/22 0800 [START ON 12/18/2022] atorvastatin (LIPITOR) tablet 80 mg, 80 mg, Oral, Nightly at bedtime, Estephanie Duran MD azithromycin (ZITHROMAX) 500 mg in NS 250 mL IVPB, 500 mg, Intravenous, Q24H, Estephanie Duran MD, Stopped at 12/16/22 1545 DULoxetine (CYMBALTA) capsule 60 mg, 60 mg, Oral, Daily, Estephanie Duran MD, 60 mg at 12/17/22 0925 famotidine (PF) (PEPCID) injection 20 mg, 20 mg, Intravenous, 2 times per day, 20 mg at 12/15/222002 OR famotidine (PEPCID) tablet 20 mg, 20 mg, Tube, 2 times per day, Estephanie Duran MD, 20 mg at12/17/22 0800 fentaNYL (SUBLIMAZE) injection 50 mcg, 50 mcg, Intravenous, Q1H PRN, Estephanie Duran MD, 50 mcg at 12/15/22 1414 gabapentin (NEURONTIN) capsule 300 mg, 300 mg, Oral, TID, Estephanie Duran MD, 300 mg at 12/17/22 0925 HYDROcodone-acetaminophen (NORCO) 5-325 MG tablet 1 tablet, 1 tablet, Oral, Q6H PRN, Estephanie Duran MD, 1 tablet at 12/16/22 0053 insulin lispro (HUMALOG) injection 0-12 Units, 0-12 Units, Subcutaneous, 4x Daily AC and at bedtime, Estephanie Duran MD, 3 Units at 12/16/22 1134 iopamidol (ISOVUE-370) 76 % injection 100 mL, 100 mL, Intravenous, ONCE PRN, Estephanie Duran MD lidocaine 4 % patch 1 patch, 1 patch, Transdermal, Q24H, Estephanie Duran MD, 1 patch at 12/17/22 0925 meropenem (MERREM) 2 g in sodium chloride 0.9 % 100 mL IVPB, 2 g, Intravenous, Q8H, Estephanie Duran MD, Stopped at 12/17/22 0950 micafungin (MYCAMINE) 100 mg in sodium chloride 0.9 % 100 mL IVPB, 100 mg, Intravenous, Q24H, Lon Gauthier MD, Stopped at 12/16/22 1950 midodrine (PROAMATINE) tablet 10 mg, 10 mg, Oral, TID WC, Estephanie Duran MD, 10 mg at 12/17/22 0800 normal saline 0.9 % flush 3-10 mL, 3-10 mL, Intravenous, Q8H, Lon Gauthier MD, 10 mL at 12/17/22 0925 normal saline 0.9 % flush 3-10 mL, 3-10 mL, Intravenous, PRN, Lon Gauthier MD ondansetron (ZOFRAN) injection 4 mg, 4 mg, Intravenous, Q8H PRN, Lon Gauthier MD potassium phosphate 45 mmol in sodium chloride 0.9 % 250 mL IVPB, 45 mmol, Intravenous, Once, Florecita Hernandez MD, Last Rate: 71.4 mL/hr at 12/17/22 0925, 45 mmol at 12/17/22 0925 senna-docusate (SENOKOT-S) 8.6-50 MG tablet 1 tablet, 1 tablet, Oral, BID, Estephanie Duran MD, 1 tablet at 12/17/22 0925 tbo-filgrastim (GRANIX) 300 MCG/0.5ML injection 300 mcg, 300 mcg, Subcutaneous, Daily, Sheldon Chavez MD, 300 mcg at 12/16/22 1031 Data Review: Recent Labs 12/15/22 1922 12/16/22 0210 12/16/22 0855 12/16/22 1621 12/17/22 0005 12/17/22 0800 WBC 0.89* -- 3.40* -- -- 6.61 HGB 7.3* 7.3* < > 8.2* 8.7* 8.9* 8.7* HCT 21.7* 21.7* < > 24.3* 25.2* 25.7* 25.6* MCV 74.3* -- 74.8* -- -- 75.5* PLT 54* -- 57* -- -- PENDING RBC 2.92* -- 3.25* -- -- 3.39* < > = values in this interval not displayed. Recent Labs Lab 12/15/22 0505 12/15/22 0852 12/15/22 1906 12/15/22 2335 12/16/22 0625 12/17/22 0550 NA 136 136 < > 139 139 142 K 3.2* 3.3* < > 3.4* 3.7 2.6* CL 101 101 < > 107 107 107 CO2 24.8 26.2 < > 24.6 24.0 28.5 AGAP 10.2 8.8 < > 7.4 8.0 6.5 BUN 24* 23* < > 24* 25* 24* CR 1.72* 1.61* < > 1.23 1.19 0.86 GLU 219* 212* < > 105 139* 101 CA 7.5* 7.9* < > 8.3* 8.2* 8.7 TP 6.2* -- -- -- 5.8* 5.7* ALB 3.1* 3.4 -- -- 2.7* 2.8* TBIL 0.9 -- -- -- 0.8 0.7 ALKP 85 -- -- -- 72 72 AST 11* -- -- -- 166* 69* ALT 16 -- -- -- 115* 96* < > = values in this interval not displayed. Coagulation: No results for input(s): INR, APTT in the last 72 hours. 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1990 Requested By: ESTEPHANIE DURAN Order Number: [id number] Yue MD: Aliyah Vazquez Measurements Intervals [place] Rate: 88 P: 60 OR: 135 QRS: 65 QRSD: 122 T: 47 QT: 382 QTc: 464 Interpretive Statements SINUS RHYTHM MODERATE INTRAVENTRICULAR CONDUCTION DELAY NONSPECIFIC ST & T-WAVE ABNORMALITY ECG 12 lead Narrative [facility] [address] [place] [address] Test Date: 2022-12-15 Pat Name: CRYSTAL CAPONE Department: 1 Room: [place] [address] 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1990 Requested By: ESTEPHANIE DURAN Order Number: [id number] Reading MD: Aliyah Vazquez Measurements Intervals [place] Rate: 89 P: 63 OR: 135 QRS: 63 QRSD: 124 T: 44 QT: 365 QTc: 444 Interpretive Statements SINUS RHYTHM MODERATE INTRAVENTRICULAR CONDUCTION DELAY NONSPECIFIC ST & T-WAVE ABNORMALITY ECHO: reviewed ------ ESTEPHANIE DURAN MD 12/17/2022 10:01 AM * Maryjo Kan RN - 12/16/2022 9:21 PM CDT Problem: Reduced risk for falls/injury Goal: Reduced Risk for Falls/Injury Outcome: Progressing Goal: Reduced Risk of Confusion (Acute vs Chronic) Outcome: Progressing Goal: Reduced Risk of Symptomatic Depression Outcome: Progressing Goal: Reduced Risk of Altered Elimination Outcome: Progressing Goal: Reduced Risk of Dizziness/Vertigo/Balance Outcome: Progressing Goal: Reduced Risk of Polypharmacy Outcome: Progressing Problem: Fluid Volume - Imbalanced Goal: Absence of imbalanced fluid volume signs and symptoms Outcome: Progressing Problem: Gas Exchange - Impaired Goal: Adequate oxygenation Outcome: Progressing Problem: Infection - Risk of, Central Venous Catheter-Associated Bloodstream Infection Goal: Absence of infection signs and symptoms Outcome: Progressing Problem: Infection - Risk of, Septic Shock Goal: Absence of infection signs and symptoms Outcome: Progressing Problem: Infection - Risk of, Urinary Catheter-Associated Urinary Tract Infection Goal: Absence of infection signs and symptoms Outcome: Progressing Problem: Pain - Acute Goal: Achieve acceptable pain level Outcome: Progressing Goal: Reduced pain sensation Outcome: Progressing Problem: Skin Integrity - Risk of, Impaired Goal: Skin integrity intact Outcome: Progressing Problem: Tissue Perfusion - Cardiopulmonary, Altered Goal: Circulatory function within specified parameters Outcome: Progressing Problem: Venous Thromboembolism - Risk of Goal: Absence of deep venous thrombosis Outcome: Progressing Problem: Discharge Planning Goal: Knowledge of discharge instructions Outcome: Progressing Problem: Discharge Planning Goal: Knowledge of discharge instructions Outcome: Progressing Problem: Body Temperature - Risk of, Imbalanced Goal: Body temperature within specified parameters Outcome: Progressing Problem: Fluid Volume - Risk of, Imbalanced Goal: Absence of hypovolemia Outcome: Progressing Goal: Lactate, serum, within specified parameters Outcome: Progressing Goal: Procalciton within specified parameters Outcome: Progressing Problem: Gas Exchange - Impaired Goal: Absence of cyanosis signs and symptoms Outcome: Progressing Goal: Central or mixed venous oxygen saturation within specified parameters Outcome: Progressing Problem: Discharge Planning Goal: Knowledge of discharge instructions Outcome: Progressing Goal: Absence of Community Acquired Pneumonia Infection Signs and Symptoms Outcome: Progressing Problem: Airway Clearance - Ineffective Goal: Patent airway Outcome: Progressing * Coreen Porras RN - 12/16/2022 3:37 PM CDTSummary: VSS, off pressors, RA. UOP adequate. Pain better controlled with Lidocaine patch. Problem: Reduced risk for falls/injury Goal: Reduced Risk for Falls/Injury 12/16/2022 1537 by Coreen Porras RN Outcome: Progressing 12/16/2022 1512 by Coreen Porras RN Outcome: Progressing Goal: Reduced Risk of Confusion (Acute vs Chronic) 12/16/2022 1537 by Coreen Porras RN Outcome: Progressing 12/16/2022 1512 by Coreen Porras RN Outcome: Progressing Goal: Reduced Risk of Symptomatic Depression 12/16/2022 1537 by Coreen Porras RN Outcome: Progressing 12/16/2022 1512 by Coreen Porras RN Outcome: Progressing Goal: Reduced Risk of Altered Elimination 12/16/2022 1537 by Coreen Porras RN Outcome: Progressing 12/16/2022 1512 by Coreen Porras RN Outcome: Progressing Goal: Reduced Risk of Dizziness/Vertigo/Balance 12/16/2022 1537 by Coreen Porras RN Outcome: Progressing 12/16/2022 1512 by Coreen Porras RN Outcome: Progressing Goal: Reduced Risk of Polypharmacy 12/16/2022 1537 by Coreen Porras RN Outcome: Progressing 12/16/2022 1512 by Coreen Porras RN Outcome: Progressing Problem: Fluid Volume - Imbalanced Goal: Absence of imbalanced fluid volume signs and symptoms 12/16/2022 1537 by Coreen Porras RN Outcome: Progressing 12/16/2022 1512 by Coreen Porras RN Outcome: Progressing Problem: Gas Exchange - Impaired Goal: Adequate oxygenation 12/16/2022 1537 by Coreen Porras RN Outcome: Progressing 12/16/2022 1512 by Coreen Porras RN Outcome: Progressing Problem: Infection - Risk of, Central Venous Catheter-Associated Bloodstream Infection Goal: Absence of infection signs and symptoms 12/16/2022 1537 by Coreen Porras RN Outcome: Progressing 12/16/2022 1512 by Coreen Porras RN Outcome: Progressing Problem: Infection - Risk of, Septic Shock Goal: Absence of infection signs and symptoms 12/16/2022 1537 by Coreen Porras RN Outcome: Progressing 12/16/2022 1512 by Coreen Porras RN Outcome: Progressing Problem: Infection - Risk of, Urinary Catheter-Associated Urinary Tract Infection Goal: Absence of infection signs and symptoms 12/16/2022 1537 by Coreen Porras RN Outcome: Progressing 12/16/2022 1512 by Coreen Porras RN Outcome: Progressing Problem: Pain - Acute Goal: Achieve acceptable pain level 12/16/2022 1537 by Coreen Porras RN Outcome: Progressing 12/16/2022 1512 by Coreen Porras RN Outcome: Progressing Goal: Reduced pain sensation 12/16/2022 1537 by Coreen Porras RN Outcome: Progressing 12/16/2022 1512 by Coreen Porras RN Outcome: Progressing Problem: Skin Integrity - Risk of, Impaired Goal: Skin integrity intact 12/16/2022 1537 by Coreen Porras RN Outcome: Progressing 12/16/2022 1512 by Coreen Porras RN Outcome: Progressing Problem: Tissue Perfusion - Cardiopulmonary, Altered Goal: Circulatory function within specified parameters 12/16/2022 1537 by Coreen Porras RN Outcome: Progressing 12/16/2022 1512 by Coreen Porras RN Outcome: Progressing Problem: Venous Thromboembolism - Risk of Goal: Absence of deep venous thrombosis 12/16/2022 1537 by Coreen Porras RN Outcome: Progressing 12/16/2022 1512 by Coreen Porras RN Outcome: Progressing Problem: Discharge Planning Goal: Knowledge of discharge instructions 12/16/2022 1537 by Coreen Porras RN Outcome: Progressing 12/16/2022 1512 by Coreen Porras RN Outcome: Progressing Problem: Discharge Planning Goal: Knowledge of discharge instructions 12/16/2022 1537 by Coreen Porras RN Outcome: Progressing 12/16/2022 1512 by Coreen Porras RN Outcome: Progressing Problem: Body Temperature - Risk of, Imbalanced Goal: Body temperature within specified parameters 12/16/2022 1537 by Coreen Porras RN Outcome: Progressing 12/16/2022 1512 by Coreen Porras RN Outcome: Progressing Problem: Fluid Volume - Risk of, Imbalanced Goal: Absence of hypovolemia 12/16/2022 1537 by Coreen Porras RN Outcome: Progressing 12/16/2022 1512 by Coreen Porras RN Outcome: Progressing Goal: Lactate, serum, within specified parameters 12/16/2022 1537 by Coreen Porras RN Outcome: Progressing 12/16/2022 1512 by Coreen Porras RN Outcome: Progressing Goal: Procalciton within specified parameters 12/16/2022 1537 by Coreen Porras RN Outcome: Progressing 12/16/2022 1512 by Coreen Porras RN Outcome: Progressing Problem: Gas Exchange - Impaired Goal: Absence of cyanosis signs and symptoms 12/16/2022 1537 by Coreen Porras RN Outcome: Progressing 12/16/2022 1512 by Coreen Porras RN Outcome: Progressing Goal: Central or mixed venous oxygen saturation within specified parameters 12/16/2022 1537 by Coreen Porras RN Outcome: Progressing 12/16/2022 1512 by Coreen Porras RN Outcome: Progressing Problem: Discharge Planning Goal: Knowledge of discharge instructions 12/16/2022 1537 by Coreen Porras RN Outcome: Progressing 12/16/2022 1512 by Coreen Porras RN Outcome: Progressing Goal: Absence of Community Acquired Pneumonia Infection Signs and Symptoms 12/16/2022 1537 by Coreen Porras RN Outcome: Progressing 12/16/2022 1512 by Coreen Porras RN Outcome: Progressing Problem: Airway Clearance - Ineffective Goal: Patent airway 12/16/2022 1537 by Coreen Porras RN Outcome: Progressing 12/16/2022 1512 by Coreen Porras RN Outcome: Progressing * Meenakshi Wiseman PharmD, [facility] - 12/16/2022 11:08 AM CDT Pharmacy Clinical Services: Sign off note Pharmacy has been consulted to dose vancomycin. Pharmacy will now sign off dosing as the drug has been discontinued. Thank you for allowing us the opportunity to participate in the care of Crystal Capone. Please let pharmacy know if we can be of further assistance. MEENAKSHI WISEMAN PharmD, [facility] Phone number: [phone] 12/16/2022 11:08 AM Electronically signed by Meenakshi Wiseman PharmD, [facility] at 12/16/2022 11:08 AM CDT * Estephanie Duran MD - 12/16/2022 10:26 AM CDT Critical Care Medicine [facility], [place], [place] [address]/01 Pager: [phone] Daily Progress Note Assessment and Plan: Crystal Capone is a 32-year-old male admitted 12/14/2022 with Septic shock. Septic shock, requiring vasopressors Acute hypoxemic respiratory failure, requiring intubation and mechanical ventilation Immunocompromised host, neutropenic Right upper lobe pneumonia Pancytopenia Elevated troponins, possibly demand ? NSTEMI Severe lactic acidosis, improving Acute kidney injury, non oliguric ? 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 PLAN: Off all drips, continue PRN pain meds, holding home morphine for now, continue norco, lidocaine patch for chest pain,seems atypica On NC O2, stable for now, extubated yesterday Pressors weaned off, echo pending, completed fluid resuscitation including albumin, elevated trops and chest pain overnight, aspirin x 1, followed by daily to continue , holding statin given elevatedLFTS, cardiology consulted, nPO for potential cath , holding AC given low HB and plts CT neg for PE yesterday, SUP on board, holding bowel regimen for now given diarrhea at home, Cdiff neg Continue broad spectrum abx, continue atypical, antifungal and bactrim coverage, bronched on admission, patient neutropenic and on chemo, quite immunocompromised, ID consulted, send fungal antigens ,CT reviewed, neg biofire, send legionella / pneumonia ag, follow blood and port cultures Patient remains pancytopenic, stopped lactics, onc consulted, continue neupogen for now Continue ISS, stress dose steroids, keep sugars between 140-180 Patient was not on eliquis prior to this, on SCDS, no chemical PPX due to low counts for now PT ./OT and advance diet if no procedure planned DVT Prophylaxis: SCDS, holding currently due to low blood counts Code Status: Full Code Disposition: Continue ICU Status : shock, resp failure Critical Care time spent in evaluation and management of a critically ill or injured patient is 50 minutes, such that the critical illness or injury acutely impairs one or more organ system: (neuro, cardio, ID, renal, resp, heme, onc) such that there is a high probability of imminent or life-threatening deterioration in the patient's condition needing immediate attention or presence of critical care physician near bedside for the above time . Complex decisions were made to manipulate and support multiple organ systems. The time listed is exclusive of any procedures which may have been performed. Critical care time includes time spent at bedside performing history and physical exam, time spent researching patient prior to interaction with patient, time spent discussing findings and treatment plan with patient and/or family, time spent discussing patient with consultants and colleagues, time spent reviewing pertinent laboratory and radiographic evaluations, time spent re-evaluating patient, or time spent discussing patient with nursing staff. All of the patient's and his family's questions were answered, and the plan of care going forward was outlined to them. ESTEPHANIE DURAN MD 12/16/2022 10:26 AM ICU Timeline: Hospital day: 2 ICU day: 1d 17h Crystal Capone is a 32-year-old male admitted with septic shock. Patient has a history of stage IV Hodgkin's lymphoma and follows up with Dr. Ashford. He is on active chemotherapy with last session a few weeks back. He presented to our hospital with chief complaint of generalized weakness, fatigue, vomiting and cough. He was found to be hypotensive with systolic blood pressure in the 80s and diastolic in the 40s, tachycardic, febrile, and slightly hypoxemic requiring low-dose supplemental oxygen.He was resuscitated with 2 L IV fluids and thereafter was started on Levophed. He was noted to havea right upper lobe pneumonia on chest x-ray. Lactic acid was elevated at 8.7. WBC count was 0.2, hemoglobin 6.9. He received 1 unit PRBC. He received vancomycin, cefepime and azithromycin. He had mild elevation in troponin at 239, EKG showed sinus tachycardia. Creatinine was elevated at 3.2. Currently, patient appears to be in severe respiratory distress and has pleuritic chest pain. He is alert and oriented x4 and does not have any focal neurological deficits. Past 24 hours events: Off pressors, on NC o2, making urine, Cr improved, chest pain overnight, elevated trops overnight Objective: Body mass index is 26.94 kg/m??. Current vital signs Blood pressure 94/65, pulse 82, temperature 97.5 ??F (36.4 ??C), resp. rate 26, height 5' 6 (1.676m), weight 75.7 kg (166 lb 14.2 oz), SpO2 99 %. Vitals: 12/16/22 0752 BP: Pulse: Resp: Temp: 97.5 ??F (36.4 ??C) SpO2: 24 hour BP and temperature range @[id number]@ Temp (24hrs), Av.9 ??F (36.6 ??C), Min:96.6 ??F (35.9 ??C), Max:98.4 ??F (36.9 ??C) Input/Output 12/15 0700 - 12/16 0659 In: 6012 [P.O.:220; I.V.:5442] Out: 2112 [Urine:2112] Intake/Output Summary (Last 24 hours) at 12/16/2022 1026 Last data filed at 12/16/2022 1016 Gross per 24 hour Intake 6012 ml Output 1802 ml Net 4210 ml Physical exam: Gen: Patient AAO x 3, appears weak and tired Neuro: Moving all extremities, no deficit appreciated Head: Atraumatic and normocephalic Eyes: Pupils equal round and reactive, no jaundice ENT: Moist mucous membrane, orally intubated Neck: No JVD. No CVC, port in place Cardiac: S1, S2, no added sounds Pulm: reduced right sided air entry, no wheezing or crackles Abdomen: Soft and nontender, bowel sounds present Skin: No rash or erythema Extremities: No edema Current inpatient medications: Current Facility-Administered Medications: aspirin chewable tablet 81 mg, 81 mg, Oral, Daily, Natividad Massey MD, 81 mg at 12/16/22 0811 azithromycin (ZITHROMAX) 500 mg in NS 250 mL IVPB, 500 mg, Intravenous, Q24H, Estephanie Duran MD, Stopped at 12/15/22 1758 famotidine (PF) (PEPCID) injection 20 mg, 20 mg, Intravenous, 2 times per day, 20 mg at 12/15/222002 OR famotidine (PEPCID) tablet 20 mg, 20 mg, Tube, 2 times per day, Estephanie Duran MD, 20 mg at12/16/22 0811 fentaNYL (SUBLIMAZE) injection 50 mcg, 50 mcg, Intravenous, Q1H PRN, Estephanie Duran MD, 50 mcg at 12/15/22 1414 HYDROcodone-acetaminophen (NORCO) 5-325 MG tablet 1 tablet, 1 tablet, Oral, Q6H PRN, Estephanie Duran MD, 1 tablet at 12/16/22 0053 insulin lispro (HUMALOG) injection 0-12 Units, 0-12 Units, Subcutaneous, 4x Daily AC and at bedtime, Estephanie Duran MD iopamidol (ISOVUE-370) 76 % injection 100 mL, 100 mL, Intravenous, ONCE PRN, Estephanie Duran MD ipratropium-albuterol (DUONEB) 0.5-2.5 (3) MG/3ML nebulizer solution 3 mL, 3 mL, Nebulization, Q4H PRN, Lon Gauthier MD, 3 mL at 12/15/22 1906 lidocaine 4 % patch 1 patch, 1 patch, Transdermal, Q24H, Estephanie Duran MD, 1 patch at 12/16/22 0953 LORazepam (ATIVAN) tablet 1 mg, 1 mg, Oral, Q8H PRN, Estephanie Duran MD meropenem (MERREM) 2 g in sodium chloride 0.9 % 100 mL IVPB, 2 g, Intravenous, Q8H, Estephanie Duran MD, Stopped at 12/16/22 0928 micafungin (MYCAMINE) 100 mg in sodium chloride 0.9 % 100 mL IVPB, 100 mg, Intravenous, Q24H, Lon Gauthier MD, Stopped at 12/15/22 1946 midodrine (PROAMATINE) tablet 5 mg, 5 mg, Tube, TID WC, Estephanie Duran MD, 5 mg at 12/16/22 0811 normal saline 0.9 % flush 3-10 mL, 3-10 mL, Intravenous, Q8H, Lon Gauthier MD, 10 mL at 12/16/22 0955 normal saline 0.9 % flush 3-10 mL, 3-10 mL, Intravenous, PRN, Lon Gauthier MD ondansetron (ZOFRAN) injection 4 mg, 4 mg, Intravenous, Q8H PRN, Lon Gauthier MD sodium chloride 0.9% infusion, 250 mL, Intravenous, Continuous, Florecita Hernandez MD, Stopped at 12/16/22 0630 sulfamethoxazole-trimethoprim (BACTRIM) 188.8 mg of trimethoprim in dextrose 5 % 500 mL IVPB, 10 mg/kg/day of trimethoprim, Intravenous, Q6H, Lon Gauthier MD, Stopped at 12/16/22 0758 tbo-filgrastim (GRANIX) 300 MCG/0.5ML injection 300 mcg, 300 mcg, Subcutaneous, Daily, Sheldon Chavez MD, 300 mcg at 12/14/22 2221 vancomycin 750 mg in NS 250 mL IVPB, 750 mg, Intravenous, Q12H, Estephanie Duran MD, Last Rate: 0 mL/hr at 12/15/22 2322, 750 mg at 12/16/22 0950 Pharmacy to dose vancomycin, , , Once AND vancomycin pharmacy to dose placeholder, , Intravenous, See Admin Instructions, Lon Gauthier MD Data Review: Recent Labs 12/15/22 0505 12/15/22 1922 12/16/22 0210 12/16/22 0855 WBC 0.29* 0.89* -- 3.40* HGB 7.3* 7.3* 7.3* 6.8* 8.2* HCT 21.8* 21.7* 21.7* 20.1* 24.3* MCV 77.3* 74.3* -- 74.8* PLT 52* 54* -- 57* RBC 2.82* 2.92* -- 3.25* Recent Labs Lab 12/14/22 1858 12/15/22 0110 12/15/22 0505 12/15/22 0852 12/15/22 19012/15/22233412/16/22 0625 NA 134* < > 136 136 136 139 139 K 3.6 < > 3.2* 3.3* 3.4* 3.4* 3.7 CL 101 < > 101 101 104 107 107 CO2 24.3 < > 24.8 26.2 22.3 24.6 24.0 AGAP 8.7 < > 10.2 8.8 9.7 7.4 8.0 BUN 25* < > 24* 23* 26* 24* 25* CR 2.36* < > 1.72* 1.61* 1.47* 1.23 1.19 GLU 138* < > 219* 212* 224* 105 139* CA 8.0* < > 7.5* 7.9* 8.5 8.3* 8.2* TP 5.7* -- 6.2* -- -- -- 5.8* ALB 2.2* < > 3.1* 3.4 -- -- 2.7* TBIL 0.7 -- 0.9 -- -- -- 0.8 ALKP 102 -- 85 -- -- -- 72 AST 10* -- 11* -- -- -- 166* ALT 11* -- 16 -- -- -- 115* < > = values in this interval not displayed. Coagulation: No results for input(s): INR, APTT in the last 72 hours. 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1990 Requested By: ESTEPHANIE DURAN Order Number: [id number] Reading MD: Aliyah Vazquez Measurements Intervals [place] Rate: 88 P: 60 OR: 135 QRS: 65 QRSD: 122 T: 47 QT: 382 QTc: 464 Interpretive Statements SINUS RHYTHM MODERATE INTRAVENTRICULAR CONDUCTION DELAY NONSPECIFIC ST & T-WAVE ABNORMALITY ECG 12 lead Narrative [place] [address] [place] [address] Test Date: 2022-12-15 Pat Name: CRYSTAL CAPONE Department: 1 Room: [place] [address] 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 Mantilla PCP: JAY NARAYANAN DO Reason for Consultation: Septic shock 2/2 RUL PNA, immunocompromised ASSESSMENT AND PLAN Crystal Capone is a 32-year-old male with medical history of Stage 4 NHL currently undergoing chemotherapy. Admitted for septic shock 2/2 RUL PNA s/p intubation. [facility] ID has been consulted for antibiotic management. Diagnoses: Septic shock likely source RUL PNA AHFR s/p intubation and extubation Stage 4 NHL, pancytopenia, immunocompromised Lactic acidosis, improving LEON, improving Antimicrobial Regimen Vancomycin IV ( 12/14 - 12/16). Bactrim 10mg/kg/d IV (12/14- 12/16) Meropenem 1g IV Q12h (12/14- present) Azithromycin 500mg IV Qd (12/15- present) Micafungin 100mg IV Qd (12/14-present) [facility] Infectious Disease Team Recommendations - Patient seen this am with history, labs/cultures, imaging, and antibiotics reviewed as above. Extubated, on RA but still has a cough. - Continue meropenem, azithromycin, and micafungin for now however will continue to deescalate antibiotics of patient continues to do well clinically and remains afebrile. - Discontinue Vancomycin, given MRSA PCR negative - Discontinue Bactrim. Imaging not consistent with PCP and patient no longer neutropenic. - Ordered Strep Pneumo urine Ag - Continue to follow bronchoscopy and blood cultures. - Plan to deescalate antibiotics pending culture results Thank you for consulting [facility] Infectious Disease, we will continue to follow. [facility] Infectious Disease 12/16/2022 Teaching physician note: Infectious Diseases Attending Physician: Patient personally interviewed and examined. Labs and vitals reviewed. [facility] Infectious Disease Fellow/Resident note reviewed and findings verified. Case discussed with the Infectious Disease team SUBJECTIVE Patient was evaluated at bedside. Patient had significant elevations in troponin overnight, 19,[address] abnormalities. Afebrile. No longer requiring pressors. On room air. Denies shortness of breath. Endorsing cough and 7/10 RUL pleuritic chest pain. He Denies fevers, chills, and night sweats. Denies nausea, vomiting, and abdominal pain. Review of Systems 10 point ROS negative unless addressed above OBJECTIVE Infectious Evaluation Summary SCr 2.36 > 1.72 > 1.19 (LEON, however, downtrending) WBC 3.40, ANC 2,960 LA: 4.3 > 2.4 Troponin 19,000 > 9,700 Images CXR (12/14): RUL PNA, mild central interstitial prominence CT C/A/P: RUL PNA, hepatomegaly with periportal edema (differential includes ascending biliary treeinfection), diffuse gallbladder thickening, interval worsening osseus mets. EKG (12/15): ST changes noted. Micro (12/14) Blood Culture x2: NGTD (12/14) blood culture, line: NGTD (12/14) Bronchoscopy: - lavage culture: alpha strep - Fungal culture: pending - TB/AFB culture: pending - Acid Fast: pending (12/15): Induced sputum Cx: alpha strep (12/15) Biofire: negative (12/14) MRSA PCR: negative Histo Ag: pending Drug Monitoring Filed Vitals: 12/16/22 0630 12/16/22 0645 12/16/22 0700 12/16/22 0752 BP: 97/61 94/65 Pulse: 82 82 82 Resp: Temp: 97.9 ??F (36.6 ??C) 97.9 ??F (36.6 ??C) 97.9 ??F (36.6 ??C) 97.5 ??F (36.4 ??C) TempSrc: SpO2: 100% 99% 99% Weight: Height: Physical Exam General: Alert and oriented, lying in bed. On room air. Eye: Normal conjunctiva, No scleral icterus. HENT: Normocephalic, AT Neck: Supple, Trachea midline Respiratory: Coarse on right anterior and lateral lung wells. Respirations are non-labored, Breathsounds are equal Cardiovascular: Normal rate, Regular rhythm, No edema. Gastrointestinal: Soft, Non-tender, Non-distended Integumentary: Warm and dry, No rash. Neurologic: alert and oriented. No focal deficits. Psychiatric: Unable to assess. Current Facility-Administered Medications: aspirin chewable tablet 81 mg, 81 mg, Oral, Daily, Natividad Massey MD, 81 mg at 12/16/22 0811 atorvastatin (LIPITOR) tablet 80 mg, 80 mg, Oral, Nightly at bedtime, Natividad Massey MD,80 mg at 12/15/22 2142 azithromycin (ZITHROMAX) 500 mg in NS 250 mL IVPB, 500 mg, Intravenous, Q24H, Estephanie Duran MD, Stopped at 12/15/22 175 famotidine (PF) (PEPCID) injection 20 mg, 20 mg, Intravenous, 2 times per day, 20 mg at 12/15/222002 OR famotidine (PEPCID) tablet 20 mg, 20 mg, Tube, 2 times per day, Estephanie Duran MD, 20 mg at12/16/22 0811 fentaNYL (SUBLIMAZE) injection 50 mcg, 50 mcg, Intravenous, Q1H PRN, Estephanie Duran MD, 50 mcg at 12/15/22 1414 HYDROcodone-acetaminophen (NORCO) 5-325 MG tablet 1 tablet, 1 tablet, Oral, Q6H PRN, Estephanie Duran MD, 1 tablet at 12/16/22 0053 hydrocortisone sodium succinate (Solu-CORTEF) injection 100 mg, 100 mg, Intravenous, 3 times per day, Lon Gauthier MD, 100 mg at 12/16/22 0533 insulin lispro (HUMALOG) injection 0-8 Units, 0-8 Units, Subcutaneous, 4 times per day, Estephanie Duran MD, 5 Units at 12/15/22 1716 iopamidol (ISOVUE-370) 76 % injection 100 mL, 100 mL, Intravenous, ONCE PRN, Estephanie Duran MD ipratropium-albuterol (DUONEB) 0.5-2.5 (3) MG/3ML nebulizer solution 3 mL, 3 mL, Nebulization, Q4H PRN, Lon Gauthier MD, 3 mL at 12/15/22 1906 LORazepam (ATIVAN) tablet 1 mg, 1 mg, Oral, Q8H PRN, Estephanie Duran MD meropenem (MERREM) 2 g in sodium chloride 0.9 % 100 mL IVPB, 2 g, Intravenous, Q8H, Estephanie Duran MD, Last Rate: 33.3 mL/hr at 12/16/22 0628, 2 g at 12/16/22 0628 micafungin (MYCAMINE) 100 mg in sodium chloride 0.9 % 100 mL IVPB, 100 mg, Intravenous, Q24H, Lon Gauthier MD, Stopped at 12/15/22 1946 midodrine (PROAMATINE) tablet 5 mg, 5 mg, Tube, TID WC, Estephanie Duran MD, 5 mg at 12/16/22 0811 norepinephrine (LEVOPHED) 8 mg/250mL NS infusion, 0.5-60 mcg/min, Intravenous, Continuous, Lon Gauthier MD, Paused at 12/16/22 0530 normal saline 0.9 % flush 3-10 mL, 3-10 mL, Intravenous, Q8H, Lon Gauthier MD, 10 mL at 12/16/22 0049 normal saline 0.9 % flush 3-10 mL, 3-10 mL, Intravenous, PRN, Lon Gauthier MD ondansetron (ZOFRAN) injection 4 mg, 4 mg, Intravenous, Q8H PRN, Lon Gauthier MD potassium chloride (KLOR-CON) packet 2 packet, 40 mEq, Per OG tube, Once, Estephanie Duran MD sodium chloride 0.9% infusion, 250 mL, Intravenous, Continuous, Florecita Hernandez MD, Stopped at 12/16/22629 sulfamethoxazole-trimethoprim (BACTRIM) 188.8 mg of trimethoprim in dextrose 5 % 500 mL IVPB, 10 mg/kg/day of trimethoprim, Intravenous, Q6H, Lon Gauthier MD, Last Rate: 333.3 mL/hr at 12/16/22627, 188.8 mg of trimethoprim at 12/16/22627 tbo-filgrastim (GRANIX) 300 MCG/0.5ML injection 300 mcg, 300 mcg, Subcutaneous, Daily, Sheldon Chavez MD, 300 mcg at 12/14/222220 vancomycin 750 mg in NS 250 mL IVPB, 750 mg, Intravenous, Q12H, Estephanie Duran MD, Stopped at 12/15/222321 Pharmacy to dose vancomycin, , , Once AND vancomycin pharmacy to dose placeholder, , Intravenous, See Admin Instructions, Lon Gauthier MD * Jennifer Hemphill RN - 12/16/2022 5:16 AM CDT Patient has required low dose Levophed throughout the shift to maintain MAP > 65, remains afebrile. Currently receiving 1 unit of PRBCs due to hemoglobin < 7. Replaced K+ twice this shift. Medicated for c/o chest pain once overnight. Slept well, repositioning self and using suction to expectorate sputum. Will continue to monitor. Problem: Reduced risk for falls/injury Goal: Reduced Risk for Falls/Injury Outcome: Progressing Goal: Reduced Risk of Confusion (Acute vs Chronic) Outcome: Progressing Goal: Reduced Risk of Symptomatic Depression Outcome: Progressing Goal: Reduced Risk of Altered Elimination Outcome: Progressing Goal: Reduced Risk of Dizziness/Vertigo/Balance Outcome: Progressing Goal: Reduced Risk of Polypharmacy Outcome: Progressing Problem: Fluid Volume - Imbalanced Goal: Absence of imbalanced fluid volume signs and symptoms Outcome: Progressing Problem: Gas Exchange - Impaired Goal: Adequate oxygenation Outcome: Progressing Problem: Infection - Risk of, Central Venous Catheter-Associated Bloodstream Infection Goal: Absence of infection signs and symptoms Outcome: Progressing Problem: Infection - Risk of, Septic Shock Goal: Absence of infection signs and symptoms Outcome: Progressing Problem: Infection - Risk of, Urinary Catheter-Associated Urinary Tract Infection Goal: Absence of infection signs and symptoms Outcome: Progressing Problem: Pain - Acute Goal: Achieve acceptable pain level Outcome: Progressing Goal: Reduced pain sensation Outcome: Progressing Problem: Skin Integrity - Risk of, Impaired Goal: Skin integrity intact Outcome: Progressing Problem: Tissue Perfusion - Cardiopulmonary, Altered Goal: Circulatory function within specified parameters Outcome: Progressing Problem: Venous Thromboembolism - Risk of Goal: Absence of deep venous thrombosis Outcome: Progressing Problem: Discharge Planning Goal: Knowledge of discharge instructions Outcome: Progressing Problem: Discharge Planning Goal: Knowledge of discharge instructions Outcome: Progressing Problem: Body Temperature - Risk of, Imbalanced Goal: Body temperature within specified parameters Outcome: Progressing Problem: Fluid Volume - Risk of, Imbalanced Goal: Absence of hypovolemia Outcome: Progressing Goal: Lactate, serum, within specified parameters Outcome: Progressing Goal: Procalciton within specified parameters Outcome: Progressing Problem: Gas Exchange - Impaired Goal: Absence of cyanosis signs and symptoms Outcome: Progressing Goal: Central or mixed venous oxygen saturation within specified parameters Outcome: Progressing Problem: Discharge Planning Goal: Knowledge of discharge instructions Outcome: Progressing Goal: Absence of Community Acquired Pneumonia Infection Signs and Symptoms Outcome: Progressing Problem: Airway Clearance - Ineffective Goal: Patent airway Outcome: Progressing * Kaycee Oliver MD - 12/15/2022 10:25 PM CDT Images from the original note were not included. Consult received regarding troponin and chest pain. We will evaluate the patient tomorrow AM. Discussed with ICU on-call. Kaycee Oliver M.D. (M.B.B.S.), [facility], [facility] Interventional and Structural Cardiology Co-Director, Structural Heart Program [facility] [place], [place] * Brenna Pope, AndreD - 12/15/2022 12:05 PM CDT Vancomycin Pharmacokinetic Progress Note Day 0 of therapy Crystal Capone is a 32-year-old male for which pharmacy has been consulted to dose vancomycin forSepsis. Other antibiotics ordered include Azithromycin / Meropenem/ Micafungin / Bactrim . Historical vancomycin use: 04/2022 Scr ~ 1 1500 q 12 hours Allergies: No Known Allergies Height: 5' 6 (1.676 m) Weight: 75.3 kg (166 lb 0.1 oz) Body mass index is 26.79 kg/m??. Temp (24 hr max): Temp Av.3 ??F (36.3 ??C) Min: 96.3 ??F (35.7 ??C) Max: 100 ??F (37.8 ??C) Today's labs and vitals: Lab Results Component Value Date/Time WBC 0.29 (L) 12/15/2022 05:05 AM WBC 0.31 (L) 12/14/2022 06:58 PM WBC 1.93 (L) 10/27/2022 07:40 PM WBC 19.6 (H) 04/16/2022 06:02 AM WBC 6.6 04/15/2022 03:20 AM Lab Results Component Value Date/Time CR 1.61 (H) 12/15/2022 08:52 AM CR 1.72 (H) 12/15/2022 05:05 AM CR 1.80 (H) 12/15/2022 01:10 AM CR 2.36 (H) 12/14/2022 06:58 PM CR 0.70 10/27/2022 07:40 PM CrCl = estimated creatinine clearance is 58.9 mL/min (A) (based on SCr of 1.61 mg/dL (H)). Intake/Output Summary (Last 24 hours) at 12/15/2022 1205 Last data filed at 12/15/2022 1100 Gross per 24 hour Intake 4373 ml Output 3272 ml Net 1101 ml Pertinent Cultures: Date Drawn Site Organism Pertinent Sensitivity 12/14 BAL ngtd 6.12 BC ngtd 6.12 Mrsa nares neg 6.12 cdiff neg 6.13 Resp pcr Levels: Date Time Level AUC Dose Comments Assessment: Crystal Capone is a 32-year-old male who is currently receiving vancomycin. AUC goal is 400 - 600 Current AUC level is Pending Renal function is Improving Scr @ [facility] 3.2--- 2.36 on admission and now down to 1.61 Baseline ~0.7-0.9 Plan: Antibiotic Plan: got 1750 mg x 1 at [facility] and then got 1g this am. With significant improvement in renal function and good urine output, will adjust to 750 mg q12h (est AUC 517) starting tonight to tryto prevent the the level from being too low Next level due: 12.16 1600 Pharmacy will continue to follow cultures, clinical status, and appropriateness of therapy. Thank you for the consult. Pharmacy Consult per Dr. Abrahan POPE, PharmD Phone: [phone] 12/15/2022 12:05 PM * Catrina Tyler RN - 12/15/2022 11:55 AM CDT Spoke with patient's mom by phone. She states he lives with his aunt and is independent in all ADLs. He uses a cane for mobility. He is receiving chemo treatments for Stage IV Hodgkin's Lymphoma through the [facility]. No current home care services. PCP Jay Narayanan. Pharmacy [facility] in [place] [phone]. Discharge disposition based on patient progress and treatment plan. All questions answered. Will continue to follow. 12/15/22 1152 Referral Data Source of Information Mother;Chart review Patient Information Primary Caregiver Self Current living Situation Family members Type of Residence Private residence Support System Immediate family Recent Hospitalization Recent Hospitalization within 30 days No Baseline ADL's Functional Status Independent Active DME Cane Behavior (currently intubated, sedated on vent support) Communication Talks;Understands speaking;Understands Turkmen (at baseline) Psychosocial Need Indicator Mental health concerns No Diagnosis/prognosis resulting in poor adjustment or coping with illness No Diagnosis/prognosis with anticipated outcome of major lifestyle changes, including change in intermediate living environment No Complex Family concerns No Abuse and/or neglect of elder, adult or child No Psychiatric and/or substance abuse issues affecting current hospitalization No Homelessness with lack of safe discharge environment No Need for guardianship petition No Chaptered patient No DC screening tool This is a screening tool it does not take the place of a physical or occupational therapy evaluation. The screening is to screen the patient for what services and destination would be beneficial for patient for next level of care Conversation with the patient/family;Chart Review Adequate Resources Available Adequate Resources Yes Anticipated DC Plan Support Systems Family members Assistance Needed (eval for additional needs when able to participate) Patient expects to be discharged to: (discharge disposition based on patient progress and treatment plan) * Estephanie Duran MD - 12/15/2022 10:08 AM CDT Critical Care Medicine [facility], [place], [place] 25/01 Pager: [phone] Daily Progress Note Assessment and Plan: Crystal Capone is a 32-year-old male admitted 12/14/2022 with Septic shock. Septic shock, requiring vasopressors Acute hypoxemic respiratory failure, requiring intubation and mechanical ventilation Immunocompromised host, neutropenic Right upper lobe pneumonia Pancytopenia Elevated troponin, possibly demand Severe lactic acidosis, improving Acute kidney injury, non oliguric ? 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 PLAN: Currently on propofol, Precedex and fentanyl, weaning propofol, fentanyl, switch to fentanyl as needed, ct head pending, weaning sedation to keep RASS -2 On full vent support, bronched yesterday, continue to wean as tolerated, vent wean protocols in place Remains on pressors, didn't require vaso, continue levo, echo pending, completed fluid resuscitation including albumin, stopped D5LR, trops improved, likely demand, holding AC due to low blood counts Keep NPO, CT pending, SUP on board, holding bowel regimen for now given diarrhea at home, Cdiff neg Continue broad spectrum abx, continue atypical, antifungal and bactrim coverage, bronched yesterday, patient neutropenic and on chemo, quite immunocompromised, ID consulted, send fungal antigens , CTpending, send biofire, send legionella / pneumonia ag, follow blood and port cultures Patient remains pancytopenic, stopped lactics, onc consulted, continue neupogen for now Continue ISS, stress dose steroids, keep sugars between 140-180 Patient was on eliquis prior to this for SVC occlusion, holding for now given low blood counts, CT pending DVT Prophylaxis: SCDS, holding currently due to low blood counts Code Status: Full Code Disposition: Continue ICU Status : shock, resp failure Critical Care time spent in evaluation and management of a critically ill or injured patient is 56 minutes, such that the critical illness or injury acutely impairs one or more organ system: (neuro, cardio, ID, renal, resp, heme, onc) such that there is a high probability of imminent or life-threatening deterioration in the patient's condition needing immediate attention or presence of critical care physician near bedside for the above time . Complex decisions were made to manipulate and support multiple organ systems. The time listed is exclusive of any procedures which may have been performed. Critical care time includes time spent at bedside performing history and physical exam, time spent researching patient prior to interaction with patient, time spent discussing findings and treatment plan with patient and/or family, time spent discussing patient with consultants and colleagues, time spent reviewing pertinent laboratory and radiographic evaluations, time spent re-evaluating patient, or time spent discussing patient with nursing staff. All of the patient's and his family's questions were answered, and the plan of care going forward was outlined to them. ESTEPHANIE DURAN MD 12/15/2022 10:08 AM ICU Timeline: Hospital day: 1 ICU day: 16h Crystal Capone is a 32-year-old male admitted with septic shock. Patient has a history of stage IV Hodgkin's lymphoma and follows up with Dr. Ashford. He is on active chemotherapy with last session a few weeks back. He presented to our hospital with chief complaint of generalized weakness, fatigue, vomiting and cough. He was found to be hypotensive with systolic blood pressure in the 80s and diastolic in the 40s, tachycardic, febrile, and slightly hypoxemic requiring low-dose supplemental oxygen.He was resuscitated with 2 L IV fluids and thereafter was started on Levophed. He was noted to havea right upper lobe pneumonia on chest x-ray. Lactic acid was elevated at 8.7. WBC count was 0.2, hemoglobin 6.9. He received 1 unit PRBC. He received vancomycin, cefepime and azithromycin. He had mild elevation in troponin at 239, EKG showed sinus tachycardia. Creatinine was elevated at 3.2. Currently, patient appears to be in severe respiratory distress and has pleuritic chest pain. He is alert and oriented x4 and does not have any focal neurological deficits. Past 24 hours events: Remains on pressors this am, on 40 % Fio2, making urine, withdrawing to pain, Cr improving, remainsneutropenic Objective: Body mass index is 26.79 kg/m??. Current vital signs Blood pressure (!) 88/59, pulse 90, temperature 96.6 ??F (35.9 ??C), resp. rate 20, height 5' 6 (1.676 m), weight 75.3 kg (166 lb 0.1 oz), SpO2 100 %. Vitals: 12/15/22 0900 BP: (!) 88/59 Pulse: 90 Resp: 20 Temp: 96.6 ??F (35.9 ??C) SpO2: 100% 24 hour BP and temperature range @[id number]@ Temp (24hrs), Av.3 ??F (36.3 ??C), Min:96.3 ??F (35.7 ??C), Max:100 ??F (37.8 ??C) Input/Output 12/14 0700 - 12/15 0659 In: 4373 [I.V.:4233] Out: 2445 [Urine:2345] Intake/Output Summary (Last 24 hours) at 12/15/2022 1008 Last data filed at 12/15/2022 0828 Gross per 24 hour Intake 4373 ml Output 2955 ml Net 1418 ml Physical exam: Gen: Patient intubated, agitated, withdrawing to pain Neuro: Moving all extremities, no deficit appreciated Head: Atraumatic and normocephalic Eyes: Pupils equal round and reactive, no jaundice ENT: Moist mucous membrane, orally intubated Neck: No JVD. No CVC, port in place Cardiac: S1, S2, no added sounds Pulm: reduced right sided air entry, no wheezing or crackles Abdomen: Soft and nontender, bowel sounds present Skin: No rash or erythema Extremities: No edema Current inpatient medications: Current Facility-Administered Medications: azithromycin (ZITHROMAX) 500 mg in NS 250 mL IVPB, 500 mg, Intravenous, Q24H, Lon Gauthier MD calcium gluconate 2 gram in NS 100 mL IVPB, 2 g, Intravenous, Once, Estephanie Duran MD chlorhexidine (PERIDEX) 0.12 % (VENT KIT) solution 15 mL, 15 mL, Mouth/Throat, BID, Lon Gauthier MD, 15 mL at 12/14/22 2040 dexmedetomidine (PRECEDEX) 400 mcg in NS 100 mL IV infusion, 0.1-1.4 mcg/kg/hr, Intravenous, Continuous, Estephanie Duran MD, Last Rate: 3.77 mL/hr at 12/15/22 0836, 0.2 mcg/kg/hr at 12/15/22 0836 famotidine (PF) (PEPCID) injection 20 mg, 20 mg, Intravenous, 2 times per day OR famotidine (PEPCID) tablet 20 mg, 20 mg, Tube, 2 times per day, Estephanie Duran MD fentaNYL (SUBLIMAZE) injection 50 mcg, 50 mcg, Intravenous, Q1H PRN, Estephanie Duran MD hydrocortisone sodium succinate (Solu-CORTEF) injection 100 mg, 100 mg, Intravenous, 3 times per day, Lon Gauthier MD, 100 mg at 12/15/22 0501 insulin lispro (HUMALOG) injection 0-8 Units, 0-8 Units, Subcutaneous, 4 times per day, Estephanie Duran MD ipratropium-albuterol (DUONEB) 0.5-2.5 (3) MG/3ML nebulizer solution 3 mL, 3 mL, Nebulization, Q4H PRN, Lon Gauthier MD meropenem (MERREM) 1 g in sodium chloride 0.9 % 50 mL IVPB, 1 g, Intravenous, Q12H, Lon Gauthier MD, Stopped at 12/15/22 0220 micafungin (MYCAMINE) 100 mg in sodium chloride 0.9 % 100 mL IVPB, 100 mg, Intravenous, Q24H, Lon Gauthier MD, Stopped at 12/14/222134 norepinephrine (LEVOPHED) 8 mg/250mL NS infusion, 0.5-60 mcg/min, Intravenous, Continuous, Lon Gauthier MD, Last Rate: 11.25 mL/hr at 12/15/22 0400, 6 mcg/min at 12/15/22 0400 normal saline 0.9 % flush 3-10 mL, 3-10 mL, Intravenous, Q8H, Lon Gauthier MD, 10 mL at 12/15/22 0101 normal saline 0.9 % flush 3-10 mL, 3-10 mL, Intravenous, PRN, Lon Gauthier MD ondansetron (ZOFRAN) injection 4 mg, 4 mg, Intravenous, Q8H PRN, Lon Gauthier MD polyvinyl alcohol (LIQUIFILM/ARTIFICIAL TEARS) 1.4 % ophthalmic solution 1 drop, 1 drop, Both Eyes,Q4H, Lon Gauthier MD, 1 drop at 12/15/22 0545 propofol (DIPRIVAN) infusion, 5-50 mcg/kg/min, Intravenous, Continuous, Lon Gauthier MD, Last Rate: 18.07 mL/hr at 12/15/22 0644, 40 mcg/kg/min at 12/15/22 0644 sulfamethoxazole-trimethoprim (BACTRIM) 188.8 mg of trimethoprim in dextrose 5 % 500 mL IVPB, 10 mg/kg/day of trimethoprim, Intravenous, Q6H, Lon Gauthier MD, Stopped at 12/15/22 0816 tbo-filgrastim (GRANIX) 300 MCG/0.5ML injection 300 mcg, 300 mcg, Subcutaneous, Daily, Sheldon Chavez MD, 300 mcg at 12/14/22 2221 vancomycin 1000 mg in NS 250 mL IVPB, 1,000 mg, Intravenous, Q24H, Estephanie Duran MD Pharmacy to dose vancomycin, , , Once AND vancomycin pharmacy to dose placeholder, , Intravenous, See Admin Instructions, Lon Gauthier MD Data Review: Recent Labs 12/14/22185712/15/22 0305 12/15/22 0505 WBC 0.31* -- 0.29* HGB 8.0* 7.1* 7.3* HCT 24.7* 20.9* 21.8* MCV 77.7* -- 77.3* PLT 61* -- 52* RBC 3.18* -- 2.82* Recent Labs Lab 12/14/22 1858 12/15/22 0110 12/15/22 0505 12/15/22 0852 NA 134* 135* 136 136 K 3.6 3.7 3.2* 3.3* CL 101 100 101 101 CO2 24.3 23.2 24.8 26.2 AGAP 8.7 11.8 10.2 8.8 BUN 25* 25* 24* 23* CR 2.36* 1.80* 1.72* 1.61* GLU 138* 216* 219* 212* CA 8.0* 7.6* 7.5* 7.9* TP 5.7* -- 6.2* -- ALB 2.2* 3.2* 3.1* 3.4 TBIL 0.7 -- 0.9 -- ALKP 102 -- 85 -- AST 10* -- 11* -- ALT 11* -- 16 -- Coagulation: No results for input(s): INR, APTT in the last 72 hours. Invalid input(s): PT Recent Labs Lab 12/14/22 2310 12/15/22 0110 12/15/22 0505 TROP 721* 728* 615* ABG: No results found for: BASEEXCESS VBG: No components found for: PHMIXEDVEN, VT1QJSUMUT, [id number], [id number], ZB0EGDD Lactic acid: No components found for: LACTATE Invalid input(s): CARDIACPROFILE EKG: No results found for this visit on 12/14/22. ECHO: pending ------ ESTEPHANIE DURAN MD 12/15/2022 10:08 AM * Fe Aguirre, AndreD - 12/14/2022 6:56 PM CDT Vancomycin Pharmacokinetic Progress Note Day 0 of therapy Crystal Capone is a 32-year-old male for which pharmacy has been consulted to dose vancomycin forSepsis. Other antibiotics ordered include Azithromycin / Meropenem/ Micafungin / Bactrim . Historical vancomycin use: 04/2022 Scr ~ 1 1500 q 12 hours Allergies: No Known Allergies Height: 5' 6 (1.676 m) Weight: 75.3 kg (166 lb 0.1 oz) Body mass index is 26.79 kg/m??. Temp (24 hr max): No data recorded Today's labs and vitals: Lab Results Component Value Date/Time WBC 1.93 (L) 10/27/2022 07:40 PM WBC 19.6 (H) 04/16/2022 06:02 AM WBC 6.6 04/15/2022 03:20 AM WBC 11.8 (H) 04/14/2022 04:15 PM WBC 21.9 (H) 04/06/2022 06:08 AM Lab Results Component Value Date/Time CR 0.70 10/27/2022 07:40 PM CR 0.98 04/16/2022 06:02 AM CR 1.00 04/15/2022 07:43 AM CR 1.03 04/14/2022 04:15 PM CR 1.06 04/06/2022 06:08 AM CrCl = CrCl cannot be calculated (Patient's most recent lab result is older than the maximum 7 daysallowed.). No intake or output data in the 24 hours ending 12/14/22 1856 Pertinent Cultures: Date Drawn Site Organism Pertinent Sensitivity Levels: Date Time Level AUC Dose Comments Assessment: Crystal Capone is a 32-year-old male who is currently receiving vancomycin. Goal level < 15 Current AUC level is Pending Renal function is Improving Scr @ [facility] 3.2--- 2.36 on admission Baseline ~0.7-0.9 Plan: Renal function improved from [facility] anticipate further improvement will schedule dosing. Antibiotic Plan: 1750 mg x 1 ([facility] @ 1602) followed by 1000 mg q 24 hours starting 12/15 @ 0800 Next level due: 12/16 @ 0600 consider sooner renal function declines / clinical status changes Pharmacy will continue to follow cultures, clinical status, and appropriateness of therapy. Thank you for the consult. Pharmacy Consult per Dr. Abrahan AGUIRRE, PharmD Phone: [phone] 12/14/2022 6:56 PM documented in this encounter H&P Notes * Lon Gauthier MD - 12/14/2022 4:18 PM CDT Critical Care Medicine [facility], [place], [place] 25/01 Pager: [phone] H&P/Consult Note Reason for ICU admission: Septic shock Principal Problem: <principal problem not specified> HPI: History is obtained from patient. Crystal Capone is a 32-year-old male admitted with septic shock. Patient has a history of stage IV Hodgkin's lymphoma and follows up with Dr. Ashford. He is on active chemotherapy with last session a few weeks back. He presented to our hospital with chief complaint of generalized weakness, fatigue, vomiting and cough. He was found to be hypotensive with systolic blood pressure in the 80s and diastolic in the 40s, tachycardic, febrile, and slightly hypoxemic requiring low-dose supplemental oxygen.He was resuscitated with 2 L IV fluids and thereafter was started on Levophed. He was noted to havea right upper lobe pneumonia on chest x-ray. Lactic acid was elevated at 8.7. WBC count was 0.2, hemoglobin 6.9. He received 1 unit PRBC. He received vancomycin, cefepime and azithromycin. He had mild elevation in troponin at 239, EKG showed sinus tachycardia. Creatinine was elevated at 3.2. Currently, patient appears to be in severe respiratory distress and has pleuritic chest pain. He is alert and oriented x4 and does not have any focal neurological deficits. Assessment and Plan: Crystal Capone is a 32-year-old male admitted with #Septic shock, requiring vasopressor #Acute hypoxemic respiratory failure, requiring mechanical ventilation #Immunocompromised host, neutropenic #Right upper lobe pneumonia #Pancytopenia, requiring transfusions #Stage 4 hodgkin's lymphoma #Elevated troponin, possibly demand #Severe lactic acidosis #Acute kidney injury PLAN: -Maintain MAP >65, received 2 L IV fluid at [facility], will provide further IV fluid resuscitation andvasopressor support, echocardiography pending -Continue lung protective mechanical ventilation, maintain RASS -2, propofol for sedation -Start broad-spectrum antibiotic therapy with vancomycin, meropenem, micafungin, and bactrim, follow infectious work-up including line cultures and bronchoscopy cultures -CT chest, abdomen and pelvis with contrast pending -Will get hematology/oncology consultation, consider ID consultation -Trend lactic acid q2h, H&H and renal panel q8h DVT Prophylaxis: SCDs GI Prophylaxis: Famotidine Code Status: Full code LINES and TUBES: Right IJ port, left radial arterial line, 2 peripheral IVs ETT: yes Disposition: Continue ICU Status Critical Care time spent in evaluation and management of a critically ill or injured patient is 45 minutes, such that the critical illness or injury acutely impairs one or more organ system: (Neuro, cardiac,respiratory, renal, ID) such that there is a high probability of imminent or life-threatening deterioration in the patient's condition needing immediate attention or presence of critical care physician near bedside for the above time . Complex decisions were made to manipulate and support multiple organ systems. The time listed is exclusive of any procedures which may have been performed. Critical care time includes time spent at bedside performing history and physical exam, time spent researching patient prior to interaction with patient, time spent discussing findings and treatment plan with patient and/or family, time spent discussing patient with consultants and colleagues, time spent reviewing pertinent laboratory and radiographic evaluations, time spent re-evaluating patient, or time spent discussing patient with nursing staff. All of the patient's and his family's questions were answered, and the plan of care going forward was outlined to them. LON GAUTHIER MD 12/14/2022 4:18 PM Past Medical Hx: As below Past surgical Hx: As below Home Medications: As below Family History: Reviewed Personal and social hx: Reviewed Past Medical History: Diagnosis Date Hodgkin lymphoma, unspecified, unspecified site (CMS/HCC) Past Surgical History: Procedure Laterality Date BIOPSY BONE BIOPSY/EXCISION, LYMPH NODE(S) Family History Problem Relation Name Age of Onset Cancer Mother Cancer Sister No current facility-administered medications on file prior to encounter. Current Outpatient Medications on File Prior to Encounter Medication Sig Dispense Refill albuterol sulfate HFA 108 (90 Base) MCG/ACT inhaler Inhale 2 puffs into the lungs every 6 (six) hours as needed for Wheezing. 8 g 0 apixaban (ELIQUIS) 5 MG tablet Take 1 tablet (5 mg total) by mouth 2 (two) times daily. 60 tablet 0 HYDROcodone-acetaminophen (NORCO) 5-325 MG tablet Take 1 tablet by mouth every 6 (six) hours as needed for Pain. predniSONE 50 MG tablet Take 70 mg by mouth daily. No Known Allergies Social History Socioeconomic History Marital status: Single Spouse name: Not on file Number of children: Not on file Years of education: Not on file Highest education level: Not on file Occupational History Not on file Tobacco Use Smoking status: Every Day Types: Cigarettes Smokeless tobacco: Never Tobacco comments: not smoking very much lately Vaping Use Vaping Use: Never used Substance and Sexual Activity Alcohol use: Yes Comment: decreased etoh use Drug use: Yes Frequency: 1.0 times per week Types: Methamphetamines, Marijuana Comment: no meth for one week Sexual activity: Not Currently Other Topics Concern Not on file Social History Narrative Not on file Social Determinants of Health Financial Resource Strain: Low Risk Difficulty of Paying Living Expenses: Not hard at all Food Insecurity: No Food Insecurity Worried About Running Out of Food in the Last Year: Never true Ran Out of Food in the Last Year: Never true Transportation Needs: No Transportation Needs Lack of Transportation (Medical): No Lack of Transportation (Non-Medical): No Physical Activity: Inactive Days of Exercise per Week: 0 days Minutes of Exercise per Session: 0 min Stress: Stress Concern Present Feeling of Stress : To some extent Social Connections: Socially Isolated Frequency of Communication with Friends and Family: Twice a week Frequency of Social Gatherings with Friends and Family: Twice a week Attends Baptism Services: Never Active Member of Clubs or Organizations: No Attends Club or Organization Meetings: Never Marital Status: Never Intimate Partner Violence: Not At Risk Fear of Current or Ex-Partner: No Emotionally Abused: No Physically Abused: No Sexually Abused: No Housing Stability: Low Risk Unable to Pay for Housing in the Last Year: No Number of Places Lived in the Last Year: 1 Unstable Housing in the Last Year: No Current inpatient medications: No current facility-administered medications for this encounter. Current Outpatient Medications: albuterol sulfate HFA 108 (90 Base) MCG/ACT inhaler, Inhale 2 puffs into the lungs every 6 (six) hours as needed for Wheezing., Disp: 8 g, Rfl: 0 apixaban (ELIQUIS) 5 MG tablet, Take 1 tablet (5 mg total) by mouth 2 (two) times daily., Disp: 60 tablet, Rfl: 0 HYDROcodone-acetaminophen (NORCO) 5-325 MG tablet, Take 1 tablet by mouth every 6 (six) hours as needed for Pain., Disp: , Rfl: predniSONE 50 MG tablet, Take 70 mg by mouth daily., Disp: , Rfl: Subjective: 12 point review of systems was completed and negative except findings reported above in ICU timeline and HPI. Objective: There is no height or weight on file to calculate BMI. Current vital signs There were no vitals taken for this visit. There were no vitals filed for this visit. 24 hour BP and temperature range @[id number]@ No data recorded. Input/Output No intake/output data recorded. No intake or output data in the 24 hours ending 12/14/22 1618 Physical exam: Gen: Patient is in respiratory distress Neuro: Moving all extremities, no deficit appreciated Head: Atraumatic and normocephalic Eyes: Pupils equal round and reactive, no jaundice ENT: Moist mucous membrane Neck: No JVD. No CVC Cardiac: S1, S2, no added sounds Pulm: Bilateral air entry, no wheezing or crackles Abdomen: Soft and nontender, bowel sounds present Skin: No rash or erythema Extremities: No edema Data Review: No results for input(s): WBC, HGB, HCT, MCV, PLT, RBC in the last 72 hours. No results for input(s): NA, K, CL, CO2, AGAP, BUN, CR, BUNCREATININ, GFRNON, GFR, GLU, CA, TP, ALB, TBIL, ALKP, AST, ALT in the last 168 hours. Coagulation: No results for input(s): INR, APTT in the last 72 hours. Invalid input(s): PT Troponins: No results for input(s): TROP, TROPIWB in the last 168 hours. ABG: No results found for: BASEEXCESS VBG: No components found for: PHMIXEDVEN, [id number], [id number], JKP2JEGQV, GZ1DBVN Lactic acid: No components found for: LACTATE EKG: No results found for this visit on 12/14/22. ECHO: Pending Microbiology: No results found for this or any previous visit. No results found for this visit on 12/14/22 (from the past 168 hour(s)). and No results found for this visit on 12/14/22 (from the past 168 hour(s)). Microbiology Results (last 14 days) No results found for the last 336 hours. Radiology: Imaging: No results found. LON GAUTHIER MD 12/14/2022 4:18 PM documented in this encounter Procedure Notes * Lon Gauthier MD - 12/14/2022 6:42 PM CDT Procedure: Bronchoscopy with bronchoalveolar lavage Indication: Immunocompromise status, right upper lobe pneumonia Consent: Emergent Procedure details: The bronchoscope was passed via the endotracheal tube, significant amount of white foamy secretionswere noted within the trachea, right mainstem bronchus and in the right upper lobe. The secretions were suctioned clear. Bronchoalveolar lavage was performed of the right upper lobe, approximately 30cc of saline was injected with 15 cc of cloudy white/yellow fluid returned. No significant bleedingor mucous plugging was noted. Signs of acute inflammation noted. The procedure was completed without any complications. Hemodynamic monitoring and oxygenation monitored throughout the procedure. Estimated blood loss: Less than 1 cc * Lon Gauthier MD - 12/14/2022 6:41 PM CDT Type of Procedure: Arterial Catheter Placement Indication: Hemodynamic monitoring Consent: Emergent Technique: A time out was preformed identifying the correct procedure, the correct location with the nursing staff. The left wrist was prepped with 2% chlorhexidine and draped with a sterile sheet inthe usual fashion. The radial artery was visualized with US guidance and needle applied, guidewire easily floated thru and then the artery was cannulated with a 20 gauge catheter. The catheter was sutured in place and a sterile dressing was applied over the site prior to removal of drapes. The patient tolerated the procedure well and there were no complications. EBL: 2 cc Complication: None * Lon Gauthier MD - 12/14/2022 6:40 PM CDT Intubation Procedure Note Indication: Acute hypoxemic respiratory failure A time-out was completed verifying correct patient, procedure, site, positioning, and special equipment. The patient was placed in a flat position. Sedation was obtained using Ketamine 100 mg, and additionally with Rocuronium 100 mg. The patient was easily ventilated using an ambu bag. The <[employer]/ MAC 3 BLADE> was used and inserted into the oropharynx at which time there wasa Grade 1 view of the vocal cords. A size 8.0- endotracheal tube was inserted and visualized going through the vocal cords. The stylette was removed. Colorimetric change was visualized on the CO2 meter. Breath sounds were heard in both lung wells equally. The endotracheal tube was placed at 23 cm,measured at the teeth. A chest x-ray was ordered to assess for pneumothorax and verify endotrachealtube placement. The patient tolerated the procedure well and there were no complications. documented in this encounter Consult Notes * Kaycee Olvier MD - 12/16/2022 1:10 PM CDTAssociated Order(s): IP CONSULT TO CARDIOLOGY Images from the original note were not included. Cardiology Consult Note Patient Name: Crystal Capone : 1990 PCP: JAY NARAYANAN DO Primary Machine Attendant: None prior; Dr. Oliver consulted Reason for Consultation: Elevated troponin ASSESSMENT/PLAN: Chest pain with elevated troponin - likely demand mediated in the setting of septic shock. Chest pain characteristics are atypical for angina. EKG shows no acute ischemic changes, troponin is trending down. Troponin peaked at 18,000.Echocardiogram did show mildly reduced LVEF with wall motion abnormalities in the anteroseptal and i nferior mclain with restricted posterior leaflet of the mitral valve causing at least moderate regurgitation. We will plan on proceeding with cardiac catheterization to identify anatomy. We will not pursue interventions at least at the beginning in the setting of pancytopenia and sepsis. Aspirin andstatin for now. Risks of heparin drip outweigh the benefit at this point given his current hematological condition. N.p.o. after 10 AM for cardiac catheterization attempt tomorrow afternoon. 2. Septic shock secondary to RUL pneumonia in an immunocompromised host - on IV antibiotics. Hemodynamics improving. Management per primary 3. Stage IV hodgkin's lymphoma and pancytopenia - oncology following 4. LEON - renal function improving. 5. Cardiomyopathy LVEF is mildly reduced with wall motion abnormalities. Pending cardiac catheterization. Please initiate low-dose beta-kely with metoprolol succinate when stable. 6. Mild regurgitation At least moderate by transthoracic echo with restriction of the posterior leaflet/primary MR, need to rule out ischemic component in the setting of recent MO. If no ischemic culprit then we will consider FRANCISCO as he recovers which could potentially be done as an outpatient. Cardiology attending attestation I, Kaycee Oliver MD, performed a Consultation and detailed evaluation and review of this patient and discussed the management with the Advanced Practice Provider (GUS). I reviewed the GUS's note and made significant contribution to its elaboration. I agree with the findings and plan of care, except as I have documented, and or changed. Plan of care developed under my direct supervision. Kaycee Oliver M.D. 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 Patient reports a 3-day history of worsening fatigue, vomiting and diarrhea. Yesterday he additionally developed chest pain. He describes it as a right anterior sharp stabbing pain which is nonradiating and nonexertional. Pain is worse with deep inspiration. He reports associated dyspnea. He is unsure if he had associated nausea, vomiting as he was already dealing with those symptoms prior to theoccurrence of chest pain. He reports associated dizziness. Upon initial presentation at [facility] he was hypotensive and tachycardic febrile and hypoxemic requiring supplemental oxygen. He was given IV fluid resuscitation and started on Levophed. Found to have right upper lobe pneumonia on chest x-ray. Additionally found to have elevated lactic acid and pancytopenia. He received 1 unit of packed red blood cell for hemoglobin 6.9. Started on broad-spectrum antibiotics. Also evidence of LEON. Initial troponin was 239 EKG showed no acute ischemic changes. He was transferred to [facility] intensive care unit for further evaluation. After transfer he required enervation and mechanical ventilation for worsening respiratory status. His troponin continued to trend upward cardiology consultation was requested. Patient reports improvement with this chest discomfort with a lidocaine patch and IV morphine. He denies any personal history of coronary artery disease, structural heart disease or arrhythmia. He denies any family history of coronary artery disease. He has a current half pack to 1 pack/day smoker.He actively uses methamphetamines 3-4 times a week. He no longer drinks alcohol. He is a daily marijuana user. He reports that he is sometimes compliant with his medications. Past Medical History: Diagnosis Date Hodgkin lymphoma, unspecified, unspecified site (CMS/HCC) Past Surgical History: Procedure Laterality Date BIOPSY BONE BIOPSY/EXCISION, LYMPH NODE(S) Medications Prior to Admission Medication Sig Dispense Refill diphenhydrAMINE (BENADRYL) 12.5 MG/5ML liquid Take 5 mLs (12.5 mg total) by mouth 4 (four) times daily as needed for Itching. DULoxetine (CYMBALTA) 60 MG capsule Take 1 capsule (60 mg total) by mouth daily. gabapentin (NEURONTIN) 300 MG capsule Take 1 capsule (300 mg total) by mouth 3 (three) times daily. HYDROcodone-acetaminophen (NORCO) 5-325 MG tablet Take 1 tablet by mouth every 6 (six) hours. morphine CR (MS CONTIN) 30 MG tablet Take 1 tablet (30 mg total) by mouth 2 (two) times daily. naloxone (NARCAN) 4 MG/0.1ML nasal spray 1 spray by Nasal route as needed for Opioid reversal. naproxen (NAPROSYN) 500 MG tablet Take 1 tablet (500 mg total) by mouth 2 (two) times daily as needed (pain). NEUPOGEN 300 MCG/0.5ML injection INJECT 1 SYRINGE [...] 1-7 of treatment regimen. No Known Allergies Social History Tobacco Use Smoking status: Every Day Types: Cigarettes Smokeless tobacco: Never Tobacco comments: not smoking very much lately Substance Use Topics Alcohol use: Yes Comment: decreased etoh use Family History Problem Relation Name Age of Onset Cancer Mother Cancer Sister Review of Systems Constitutional: Positive for fatigue and weakness. Negative for recent unintentional weight gain and recent unintentional weight loss. HENT: Negative for new or significant hearing loss. Eyes: Negative for blurred vision and double vision. Respiratory: Positive for cough and shortness of breath. Cardiovascular: See HPI. Gastrointestinal: Negative for nausea, vomiting, blood in stool and melena. Genitourinary: Negative for dysuria. Musculoskeletal: Negative for myalgias. Skin: Negative for rash. Neurological: Negative for dizziness and focal weakness. Endo/Heme/Allergies: Negative for new or significant bruising/bleeding. Psychiatric/Behavioral: Negative for depression and nervous/anxious. Medications: Scheduled Meds: aspirin 81 mg Oral Daily azithromycin 500 mg Intravenous Q24H famotidine 20 mg Intravenous 2 times per day Or famotidine 20 mg Tube 2 times per day insulin lispro 0-12 Units Subcutaneous 4x Daily AC and at bedtime lidocaine 1 patch Transdermal Q24H meropenem 2 g Intravenous Q8H micafungin 100 mg Intravenous Q24H midodrine 5 mg Tube TID WC normal saline 3-10 mL Intravenous Q8H tbo-filgrastim 300 mcg Subcutaneous Daily Continuous Infusions: sodium chloride Stopped (12/16/22 0630) PRN Meds: fentaNYL, HYDROcodone-acetaminophen, iopamidol, ipratropium-albuterol, LORazepam, normal saline, ondansetron Meds Prior to Admission: Medications Prior to Admission Medication Sig Dispense Refill diphenhydrAMINE (BENADRYL) 12.5 MG/5ML liquid Take 5 mLs (12.5 mg total) by mouth 4 (four) times daily as needed for Itching. DULoxetine (CYMBALTA) 60 MG capsule Take 1 capsule (60 mg total) by mouth daily. gabapentin (NEURONTIN) 300 MG capsule Take 1 capsule (300 mg total) by mouth 3 (three) times daily. HYDROcodone-acetaminophen (NORCO) 5-325 MG tablet Take 1 tablet by mouth every 6 (six) hours. morphine CR (MS CONTIN) 30 MG tablet Take 1 tablet (30 mg total) by mouth 2 (two) times daily. naloxone (NARCAN) 4 MG/0.1ML nasal spray 1 spray by Nasal route as needed for Opioid reversal. naproxen (NAPROSYN) 500 MG tablet Take 1 tablet (500 mg total) by mouth 2 (two) times daily as needed (pain). NEUPOGEN 300 MCG/0.5ML injection INJECT 1 SYRINGE [...] daily on days 1-7 of treatment regimen. OBJECTIVE Last Recorded Weight 12/16/22 0600 Weight: 75.7 kg (166 lb 14.2 oz) Current BMI: Body mass index is 26.94 kg/m??. Vital signs: Vitals: 12/16/22 1218 BP: Pulse: Resp: Temp: 97.5 ??F (36.4 ??C) SpO2: Physical Exam Constitutional: General: He is not in acute distress. HENT: Head: Normocephalic. Mouth/Throat: Mouth: Mucous membranes are moist. Dentition: Abnormal dentition. Eyes: Conjunctiva/sclera: Conjunctivae normal. Cardiovascular: Rate and Rhythm: Normal rate and regular rhythm. Heart sounds: No murmur heard. Pulmonary: Effort: Tachypnea present. Abdominal: General: Bowel sounds are normal. There is no distension. Palpations: Abdomen is soft. Tenderness: There is no abdominal tenderness. Musculoskeletal: Cervical back: Neck supple. Right lower leg: No edema. Left lower leg: No edema. Skin: General: Skin is warm and dry. Neurological: Mental Status: He is alert. Mental status is at baseline. Psychiatric: Thought Content: Thought content normal. Labs and Cultures: Lab Results Component Value Date NA 139 12/16/2022 K 3.7 12/16/2022 CL 107 12/16/2022 CO2 24.0 12/16/2022 BUN 25 (H) 12/16/2022 CR 1.19 12/16/2022 GLU 139 (H) 12/16/2022 CA 8.2 (L) 12/16/2022 TROP 9,747 (H) 12/16/2022 TROP 16,960 (H) 12/15/2022 TROP 14,478 (H) 12/15/2022 Lab Results Component Value Date WBC 3.40 (L) 12/16/2022 HGB 8.2 (L) 12/16/2022 PLT 57 (L) 12/16/2022 INR 1.8 (H) 04/14/2022 Lab Results Component Value Date ALB 2.7 (L) 12/16/2022 AST 166 (H) 12/16/2022 ALT 115 (H) 12/16/2022 TSH 1.080 12/14/2022 Imaging: CTA CHEST+CT ABD+PEL W CON Result Date: 12/15/2022 Examination: CTA CHEST+CT ABD+PEL W CON Clinical Information: Sepsis. Evaluate for SVC occlusion and pulmonary embolism. Comparison:CT 04/14/2022. Technique: IV contrast: 100 mL Isovue 370. Oral contrast: None. Technical comments: CTA of the chest was obtained according to the pulmonary embolism protocol. Coronal MIP images were submitted for evaluation. Next, contrast enhanced CT images of the abdomen and pelvis were obtained. Dose reduction: This CT exam was performed using one or more of thefollowing dose reduction techniques: Automated exposure control, adjustment of the mA and/or kV according to patient size, and/or use of iterative reconstruction technique. Findings: VASCULATURE The pulmonary arteries are well-opacified and no intraluminal filling defect is identified. The thoracicaorta is unenhanced but appears normal in caliber. The SVC is patent and appears normal in caliber.MEDIASTINUM Support tubes and lines: A right- sided chest port is in place and terminates at the right atrium. Base of neck/thyroid: Negative. Heart: Moderate cardiomegaly. No evidence of right heart strain. Lymph nodes: On the prominent mediastinal lymph nodes are identified, favored reactive. LUNGS AND PLEURA Trace right pleural effusion with atelectasis. Extensive consolidative opacities withinthe right upper lobe consistent with pneumonia. UPPER ABDOMEN Liver and bile ducts: The liver is enl arged measuring 22.5 cm. No distinct focal liver mass is identified. There is diffuse periportal edema. Portal veins appear patent. No biliary dilatation. Gallbladder: Diffuse gallbladder wall thickening. No hyperdense gallstones are identified. No biliary obstruction noted. Pancreas: Normal. Spleen: Normal. RETROPERITONEUM Adrenals: Normal. Kidneys: Unremarkable. Lymph nodes: The enlarged retroperitoneal and iliac chain lymph nodes seen on the comparison study from April 2022 have significantly decreased in size and are now within normal limits. No new lymphadenopathy is seen within the abdomen or pelvis. BOWEL AND PERITONEUM Bowel: No evidence of bowel obstruction or acute inflammatory process. Free air or fluid: Small volume free fluid is seen within the pelvis. VASCULATURE The abdominal aorta is normal in caliber. PELVIS A Rojas catheter is noted within the urinary bladder. BONES/SOFT TISSUES Abnormal appearance of the T7, L3 and L4 vertebral bodies, worsened from prior. Multifoc al lytic lesions are identified involving other vertebral bodies as well as the bones of the pelvis, more prominent than seen previously. Findings are again most suggestive of osseous metastasis, with interval worsening. Impression: 1. No pulmonary embolism is identified. 2. The SVC is patent and appears normal in caliber. 3. Extensive consolidative opacities within the right upper lobe consistent with pneumonia. 4. Trace right pleural effusion with atelectasis. 5. Cardiomegaly. 6. Hepatomegaly. Periportal edema isnoted, nonspecific but possibly related to fluid volume status although hepatitis and ascending biliary infection, among other causes, cannot be excluded. 7. Diffuse gallbladder wall thickening, nonspecific. No hyperdense gallstones are identified. This could be secondary to fluid volume status butis nonspecific. Could further correlate with gallbladder ultrasound if clinically favored. 8. Significant interval decrease in size of the retroperitoneal and iliac chain lymph nodes since the prior study. No new lymphadenopathy is seen within the abdomen or pelvis. 9. 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1990 Requested By: ESTEPHANIE DURAN Order Number: [id number] Reading MD: Aliyah Vazquez Measurements Intervals [place] Rate: 88 P: 60 OR: 135 QRS: 65 QRSD: 122 T: 47 QT: 382 QTc: 464 Interpretive StatementsSINUS RHYTHM MODERATE INTRAVENTRICULAR CONDUCTION DELAY NONSPECIFIC ST & T-WAVE ABNORMALITY ECG 12 lead Result Date: 12/15/2022 [place] [address] [place] [address] Test Date: 2022-12-15 Pat Name: [facility] Department: 1 Room: [place] [address] 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 Technique: Computed tomographic images of the head were obtained without intravenous contrast. Additional coronal and sagittal reformatted images were generated at a separate workstation. A dose lowering technique was used for this procedure, which may include, but is not limited to, dose reduction technique, automated exposure control, the use of iterative reconstruction, and ALARA (As Low As Reasonably Achievable) / Image Gently techniques. Clinical history: Persistent encephalopathy Comparison: CT soft tissue neck 10/27/2022 Findings: There isno acute intracranial hemorrhage. There is no extra-axial fluid collection. Preserved villagomez-white matter differentiation. The ventricles are normal in size. The basal cisterns appear normal. Orbital contents appear normal. Paranasal sinuses and mastoid air cells are well aerated. There is no acute fracture nor destructive process of the visualized osseous structures. IMPRESSION: No CT evidence of an acute intracranial abnormality. Ordered By: ESTEPHANIE DURAN Interpreted By: Jewel Shaver MD, :16 PM XR ABD KUB Result Date: 12/14/2022 INDICATION: OG placement COMPARISON: None. TECHNIQUE: Two radiographic images of the abdomen FINDINGS: Enteric tube in subdiaphragmatic position with tip and side port projecting over the expected location of the gastric lumen. Visualized bowel gas pattern within normal limits. No acute osseous abnormality. Limited visualization of the lung bases exhibit no dense consolidation. IMPRESSION: Enteric tube in satisfactory position. Referred By: JAY NARAYANAN Interpreted By: Nicho Braswell MD, 12/14/2022 10:20PM XR CHEST PORTABLE Result Date: 12/15/2022 Examination: XR CHEST PORTABLE Exam time: 12/15/2022 7:00 PM Clinical history: Chest pain. Comparison: Radiographs December 14, 2022. Technique: Upright AP image of the chest. Findings: A right-sided chest port appears to terminate at the cavoatrial junction. The heart is enlarged. There is been interval removal of the ET tube since the prior study. Consolidative opacities within the right upper lobe appear unchanged. The left lung appears clear. No pleural effusion or pneumothorax noted. IMPRESSION: Interval removal of the ET tube since the prior study. Otherwise, no significant interval change. Ordered By: ESTEPHANIE DURAN Interpreted By: Bean Cisneros MD, 12/15/2022 7:23 PM XR CHEST PORTABLE Result Date: 12/14/2022 Examination: XR CHEST PORTABLE Exam time: 12/14/2022 6:40 PM Clinical history: Pneumonia. Status post intubation Comparison: Chest x-ray 12/14/2022 Technique: Portable semierect radiograph of the chestFindings: Interval placement of a endotracheal tube with tip located approximately 4 cm above the level of the misti. Redemonstrated infusion port with tip projecting over the right atrium. Unchanged consolidative opacity in the lateral right upper lobe. Unchanged hazy opacities in the right lowerlung. The cardiac silhouette and pulmonary vasculature are within normal limits. There is no pleural effusion or pneumothorax. IMPRESSION: 1. Interval placement of an endotracheal tube with tip located proximally 4 cm above the misti. 2. Unchanged consolidative opacity in the right upper lobe and hazy opacities in the rightlower lung. The attending radiologist has reviewed the image(s) and agrees with the content of thisreport. Ordered By: LON GAUTHIER Interpreted By: Get Chavez MD, 12/14/2022 7:24 PM XR CHEST PORTABLE Result Date: 12/14/2022 INDICATION: Assess for pneumonia, weakness, fatigue, cough COMPARISON: Chest CT, 14 Apr 2022 TECHNIQUE: Single AP portable radiographic image of the chest FINDINGS: Infusion port in right chest wall with the catheter tip at the superior cavoatrial junction. No pneumothorax or pleural effusion. There is a dense consolidation in the lateral aspect of the right upper lobe. Some additional infiltrates possible in the right middle lobe. Mild bilateral central interstitial prominence. Cardiomediastinal silhouette and pulmonary vasculature within normal limits. No acute osseous abnormality. IMPRESSION: 1. Dense consolidation in the lateral aspect of the right upper lobe, compatible with pneumonia. Additional infiltrates possible in right middle lobe. Recommend following to resolution. 2. Mild bilateral central interstitial prominence, mild pulmonary edema versus pneumonia. 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1990 Requested By: ESTEPHANIE DURAN Order Number: [id number] Reading MD: Aliyah Vazquez Measurements Intervals [place] Rate: 88 P: 60 OR: 135 QRS: 65 QRSD: 122 T: 47 QT: 382 QTc: 464 Interpretive Statements SINUS RHYTHM MODERATE INTRAVENTRICULAR CONDUCTION DELAY NONSPECIFIC ST & T-WAVE ABNORMALITY ECG 12 lead Narrative [place] [address] [place] [address] Test Date: 2022-12-15 Pat Name: [facility] Department: 1 Room: [id number] 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 [facility] Heme/Onc Consult Note Attending Provider: Dr. Zavaleta PCP: JAY NARAYANAN DO Reason for Consult: Neutropenia Severe sepsis Stage IV A Hodgkin's lymphoma ONCOLOGIC HISTORY: Prior workup, including an excisional lymph node biopsy, was positive for classical Hodgkin's disease. A CT chest scan from 02/24/2022 was positive for adenopathy. A bone marrow biopsy was positive for Hodgkin's disease. A pre- treatment MUGA scan reported a LVEF of 68% (03/02/2022). These findings were consistent with Stage ALANA disease. PFTs on 02/23/2022) identified mild obstruction with a normal DLCO (79%). He completed two cycles of ABVD chemotherapy without issues. However, a restaging PET scan revealed a mixed response to treatment with some areas of progression. We was subsequently switched to BEACOPP chemotherapy and received 3 cycles, to be followed by restaging scans. His last cycle of BEACOPP was completed on . IMPRESSION: 32 year-old male with a past medical history of stage IV Hodgkin's disease who was admitted to the hospital with hypoxic respiratory failure requiring intubation. An admission CT scan of the chest, abdomen and pelvis with contrast reported possible progression of his known Hodgkin's disease as well as diffuse multifocal pneumonia. The patient Hg is 7.3 g/dL, platelets are 52K and his WBC is 8.29 with an absolute neutrophil count of 0.1, consistent with severe neutropenia. There is no indication for transfusion or packed RBCs or platelets at this time. The patient's neutropenia is secondary to his recent treatment h BECOPP on because the neutropenia sadiq for this regimen o ccurs between Days 10 to 14 after treatment, which fits this picture well. PLAN: Give filgrastim (300 mcg) sub Q daily x 7 doses. If his neutrophil count is < 2000 at that time,filgrastim injections can be extended. Given recent diagnostic imaging study results, the patient will need to have a discussion with Dr. Ambrocio Ashford in the outpatient [facility] Hematology Oncology clinic about additional treatment options since he appears to have refractory Hodgkin's disease. Thank you for consulting [facility] Hematology/Oncology service. We will continue to follow the patient peripherally HPI: The patient was intubated prior our visit this morning. We were unable to obtain any history of hiscurrent illness other than what could be found by reviewing his medical records. No family members were present during our visit. Mr. Capone is a 32 year-old male with who was diagnosed with Stage IV Hodgkin's disease in February2022. He was initially treated with two cycles of ABVD chemotherapy, but after documented progression on restaging scans, he received and completed 3/3 cycles of BEACOPP chemotherapy, the last given on 12/02/2022. At time of admission, the patient presented to the hospital with generalized weakness,fatigue, vomiting, cough and shortness of breath. He was markedly hypotensive and hypoxemic and required supplemental oxygen. He decompensated in the emergency department and was started on pressors.He was also intubated and subsequent scans identified a multifocal pneumonia that was thought to bethe source of his septicemia. We are unable to obtain any additional history regarding this admission. No Known Allergies Review of Systems We were unable to conduct a review of systems because the patient is intubated and sedated. Physical exam GENERAL: Intubated and sedated. He appears stable. HEAD: Normocephalic. Atraumatic. EYES: Normal scleral without icterus. Normal conjunctiva. ENT: Unable to examine mouth because of breathing tube. NECK: No lymphadenopathy or JVD LUNGS/CHEST: Coarse breath sounds in all quadrants consistent with mechanical ventilation. No wheezing. Some end inspiratory stridor is noted. No chest wall tenderness. Symmetric chest wall expansion. HEART: Regular rate and rhythm without murmur. ABDOMEN: Soft, non-distended, non-tender with normal bowel sounds. No organomegaly. EXTREMITIES: No noted deformities in hands or joints. No clubbing, cyanosis or edema. Unable to assess range of motion due to sedation. SKIN: Warm, clammy but without rash, petechiae or bruising. NEUROLOGICAL: Responds to obnoxious stimuli in all extremities. Sedated PSYCHIATRY: Unable to assess due to sedation. No current facility-administered medications on file prior to encounter. Current Outpatient Medications on File Prior to Encounter Medication Sig diphenhydrAMINE (BENADRYL) 12.5 MG/5ML liquid DULoxetine (CYMBALTA) 60 MG capsule gabapentin (NEURONTIN) 300 MG capsule Take 1 capsule (300 mg total) by mouth 3 (three) times daily. morphine CR (MS CONTIN) 30 MG tablet naloxone (NARCAN) 4 MG/0.1ML nasal spray NEUPOGEN 300 MCG/0.5ML injection INJECT 1 SYRINGE INTO THE SKIN ONCE DAILY ON DAYS 9-17 OF TREATMENT albuterol sulfate HFA 108 (90 Base) MCG/ACT inhaler Inhale 2 puffs into the lungs every 6 (six) hours as needed for Wheezing. apixaban (ELIQUIS) 5 MG tablet Take 1 tablet (5 mg total) by mouth 2 (two) times daily. HYDROcodone-acetaminophen (NORCO) 5-325 MG tablet Take 1 tablet by mouth every 6 (six) hours as needed for Pain. predniSONE 50 MG tablet Take 70 mg by mouth daily. Past Medical History: Diagnosis Date Hodgkin lymphoma, unspecified, unspecified site (CMS/HCC) Past Surgical History: Procedure Laterality Date BIOPSY BONE BIOPSY/EXCISION, LYMPH NODE(S) Social History Tobacco Use Smoking status: Every Day Types: Cigarettes Smokeless tobacco: Never Tobacco comments: not smoking very much lately Substance Use Topics Alcohol use: Yes Comment: decreased etoh use Family History Problem Relation Name Age of Onset Cancer Mother Cancer Sister Blood pressure (!) 88/56, pulse 90, temperature 96.4 ??F (35.8 ??C), resp. rate 20, height 5' 6 (1.676 m), weight 75.3 kg (166 lb 0.1 oz), SpO2 100 %. Recent Labs Lab 12/14/22 1858 12/15/22 0110 12/15/22 0505 12/15/22 0852 NA 134* 135* 136 136 K 3.6 3.7 3.2* 3.3* CL 101 100 101 101 CO2 24.3 23.2 24.8 26.2 AGAP 8.7 11.8 10.2 8.8 BUN 25* 25* 24* 23* CR 2.36* 1.80* 1.72* 1.61* GLU 138* 216* 219* 212* CA 8.0* 7.6* 7.5* 7.9* MAGNESIUM 1.5* -- 2.3 -- Recent Labs Lab 12/15/22 0505 WBC 0.29* RBC 2.82* HGB 7.3* HCT 21.8* MCV 77.3* MCH 25.9* MCHC 33.5 PLT 52* RDW 14.4 MPV 10.8* NEUC 0.10* LYMC 0.03* MONOC 0.11 EOSC 0.03 BASOC 0.01 No results for input(s): INR in the last 168 hours. PEPE HIGHTOWER MD 12/15/2022 Attending Attestation: This patient was seen and examined by me this morning during rounds with thefellow and the residents, and this note summarizes my findings and recommendations, based on my ownreview of his clinical history, my own physical examination and my own review of all pertinent laboratory and diagnostic imaging study results. * Nuris Mantilla MD - 12/15/2022 7:53 AM CDTSummary: [facility] ID Consult Note [facility] INFECTIOUS DISEASE CONSULT NOTE Consulting Provider: Dr. Mantilla Attending Provider: Estephanie Duran MD PCP: JAY NARAYANAN DO Reason for Consultation: Septic Shock 2/2 RUL PNA, severe neutropenia in setting of Stage 4 NHL History of Present Illness: Crystal Capone is a 32-year-old male with medical history of Stage 4 NHL currently undergoing chemotherapy. He follows with Dr. Ashford outpatient. Last chemotherapy session was a few weeks ago, scheduled 12/02/22. According to the chart, he presented to the ED for generalized weakness, fatigue, vomiting, and cough on 12/14. He was in severe respiratory distress with pleuritic chest pain requiring ventilation. Admitted for septic shock 2/2 RUL PNA s/p intubation. Ventilator settings PEEP 5 and [id number]%. Patient is currently sedated. On levophed 5. [facility] ID has been consulted for antibiotic management. Review of Systems ROS limited due to patient's mental status Histories: Past Medical History: Diagnosis Date Hodgkin lymphoma, unspecified, unspecified site (CMS/HCC) No Known Allergies Past Surgical History: Procedure Laterality Date BIOPSY BONE BIOPSY/EXCISION, LYMPH NODE(S) Family History Problem Relation Name Age of Onset Cancer Mother Cancer Sister Mother and maternal grandmother with Hodgkin's Lymphoma Social History Socioeconomic History Marital status: Single [...] (Medical): No Lack of Transportation (Non-Medical): No Physical Activity: Inactive Days of Exercise per Week: 0 days Minutes of Exercise per Session: 0 min Stress: Stress Concern Present Feeling of Stress : To some extent Social Connections: Socially Isolated Frequency of Communication with Friends and Family: Twice a week Frequency of Social Gatherings with Friends and Family: Twice a week Attends Baptism Services: Never Active Member of Clubs or Organizations: No Attends Club or Organization Meetings: Never Marital Status: Never Intimate Partner Violence: Not At Risk Fear of Current or Ex-Partner: No Emotionally Abused: No Physically Abused: No Sexually Abused: No Housing Stability: Low Risk Unable to Pay for Housing in the Last Year: No Number of Places Lived in the Last Year: 1 Unstable Housing in the Last Year: No OBJECTIVE Vitals: 12/15/22 0700 BP: 95/61 Pulse: 91 Resp: 20 Temp: 96.4 ??F (35.8 ??C) SpO2: 100% Physical Exam General: Intubated, Sedated. On pressor support. Eye: Normal conjunctiva, No scleral icterus. HENT: Normocephalic, AT Neck: Supple, Trachea midline Respiratory: Bilateral air entry, no wheezing or crackles. Respirations are non- labored, Breath sounds are equal Cardiovascular: Normal rate, Regular rhythm, No edema. Gastrointestinal: Soft, Non-tender, Non-distended Integumentary: Warm and dry, No rash. Neurologic: Intubated and sedated. Psychiatric: Unable to assess. Laboratory Studies CBC Recent Labs Lab 12/15/22 0505 WBC 0.29* RBC 2.82* HGB 7.3* HCT 21.8* MCV 77.3* MCH 25.9* MCHC 33.5 PLT 52* RDW 14.4 MPV 10.8* NEUC 0.10* LYMC 0.03* MONOC 0.11 EOSC 0.03 BASOC 0.01 CMP Recent Labs 12/14/22 1858 12/15/22 0110 12/15/22 0505 ALT 11* -- 16 AST 10* -- 11* CO2 24.3 23.2 24.8 CL 101 100 101 GLU 138* 216* 219* K 3.6 3.7 3.2* NA 134* 135* 136 BUN 25* 25* 24* Scheduled Medications azithromycin 500 mg Intravenous Q24H calcium gluconate 2 g Intravenous Once chlorhexidine 15 mL Mouth/Throat BID famotidine 20 mg Intravenous 2 times per day Or famotidine 20 mg Oral 2 times per day hydrocortisone 100 mg Intravenous 3 times per day meropenem 1 g Intravenous Q12H micafungin 100 mg Intravenous Q24H normal saline 3-10 mL Intravenous Q8H artificial tears 1 drop Both Eyes Q4H trimethoprim-sulfamethoxazole 10 mg/kg/day of trimethoprim Intravenous Q6H tbo-filgrastim 300 mcg Subcutaneous Daily vancomycin 1,000 mg Intravenous Q24H vancomycin pharmacy to dose Intravenous See Admin Instructions Infectious Evaluation Summary BUN Date Value Ref Range Status 12/15/2022 24 (H) 7 - 18 MG/DL Final 12/15/2022 25 (H) 7 - 18 MG/DL Final 12/14/2022 25 (H) 7 - 18 MG/DL Final CREATININE S/P/B Date Value Ref Range Status 12/15/2022 1.72 (H) 0.70 - 1.30 MG/DL Final 12/15/2022 1.80 (H) 0.70 - 1.30 MG/DL Final 12/14/2022 2.36 (H) 0.70 - 1.30 MG/DL Final WBC Date Value Ref Range Status 12/15/2022 0.29 (L) 4.00 - 10.80 x10'3/uL Final 12/14/2022 0.31 (L) 4.00 - 10.80 x10'3/uL Final 10/27/2022 1.93 (L) 4.00 - 10.80 x10'3/uL Final Drug Monitoring No results found for: VANT CREATININE S/P/B Date Value Ref Range Status 12/15/2022 1.72 (H) 0.70 - 1.30 MG/DL Final estimated creatinine clearance is 55.1 mL/min (A) (based on SCr of 1.72 mg/dL (H)). No results found for: [facility] BUN 24 SCr 2.36 > 1.72 (LEON, however, downtrending) WBC 0.29, ANC 20 Images CXR (12/14): RUL PNA, mild central interstitial prominence CT A/P pending Micro (12/14) Blood Culture x2: NGTD (12/14) Bronchoscopy: - lavage culture: NGTD. - Fungal culture: pending - TB/AFB culture: pending - Acid Fast: pending (12/14) MRSA PCR: pending Antimicrobial Regimen Vancomycin IV ( 12/14 - present). Meropenem 1g IV Q12h (12/14- present) Bactrim 10mg/kg/d IV (12/14- present) Micafungin 100mg IV Qd (12/14-present) Azithromycin 500mg IV Qd (12/15- present) ASSESSMENT AND PLAN Crystal Capone is a 32-year-old male with medical history of Stage 4 NHL currently undergoing chemotherapy. Admitted for septic shock 2/2 RUL PNA s/p intubation. [facility] has been consulted for antibiotic management. 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 - Continue to follow bronchoscopy and blood cultures. - Pending CT A/P , will follow results - Plan to deescalate antibiotics pending culture results Thank you for the consultation and for the opportunity to assist in the care of this patient. [facility] will continue to follow. Please feel free to contact us with regards to any questions or concerns. [facility] Infectious Disease 12/15/2022 Teaching physician note: Infectious Diseases Attending Physician: Patient personally interviewed and examined. Labs and vitals reviewed. [facility] Infectious Disease Fellow/Resident note reviewed and findings verified. Case discussed with the Infectious Disease team documented in this encounter OR Notes * Op Note - Kaycee Oliver MD - 12/17/2022 4:34 PM CDT Images from the original note were not included. POST-CARDIAC CATHETERIZATION PROCEDURE NOTE PATIENT:Crystal Capone : 1990 DATE OF SERVICE: 12/17/2022 Operators: Kaycee Oliver MD Indication: - NSTEMI Procedure: - Coronary angiography - Left heart cath - Moderate sedation I performed moderate sedation using Versed 1 mg and fentanyl 25 mcg. I supervised and directed our R.N. who assisted in monitoring patient's level of consciousness and physiological status throughoutthe procedure. Findings: - LHC: Normal LVEDP - Coronary angiogram: *Left main: No significant disease *LAD: No significant disease *Left circumflex: No significant disease *RCA: No significant disease Impression: -No angiographic evidence of significant CAD -Normal LVEDP Access site/size(s) and vascular closure method: -Right radial artery, 6 Turkish sheath, TR band Periprocedural Events: None Estimated blood loss: Minimal Recommendations: -Routine post cath care -Can discontinue aspirin at this point -Follow-up with me will be arranged in the office in 1 -2 months with repeat echo at that time. He will likely need FRANCISCO as well. - Follow up - Risk factor optimization Discharge: pending clinical course Kaycee Oliver M.D. (M.B.B.S.), [facility], [facility] Interventional and Structural Cardiology Co-Director, Structural Heart Program [facility] [place], [place] documented in this encounter Plan of Treatment Scheduled Orders Name Type Priority Associated Diagnoses Orde r Schedule XA LHC POSS Cardiac Cath Today One time im aging One time imaging for 1 Occurrences starting 12/16/2022 until 12/16/2022 documented as of this encounter Goals Goal Patient Goal Type Associated Problems Recent Progress Patient-Stated? Author Safety ? Patient/family will have appropriate support at home upon discharge Lifestyle No Rama Chahal, employment recruiter - family caregiver with be involved in care transitions and discharge planning Lifestyle No Catrina Tyler RN documented as of this encounter Procedures Procedure Name Priority Date/Time Associated Diagnosis Comments POCT GLUCOSE - STEARNS DOCKED DEVICE Routine 12/21/2022 6:15 AM CDT COMPREHENSIVE METABOLIC PANEL Routine 12/21/2022 3:23 AM CDT CBC W/DIFF AUTOMATED Routine 12/21/2022 3:23 AM CDT PHOSPHORUS, INORGANIC PHOSPHATE Routine 12/21/2022 3:23 AM CDT MAGNESIUM Routine 12/21/2022 3:23 AM CDT CALCIUM, IONIZED Routine 12/21/2022 3:23 AM CDT POCT GLUCOSE - STEARNS DOCKED DEVICE Routine 12/20/2022 8:59 PM CDT POCT GLUCOSE - STEARNS DOCKED DEVICE Routine 12/20/2022 4:49 PM CDT POCT GLUCOSE - STEARNS DOCKED DEVICE Routine 12/20/2022 11:59 AM CDT POCT GLUCOSE - STEARNS DOCKED DEVICE Routine 12/20/2022 5:42 AM CDT COMPREHENSIVE METABOLIC PANEL Routine 12/20/2022 2:16 AM CDT CBC W/DIFF AUTOMATED Routine 12/20/2022 2:16 AM CDT PHOSPHORUS, INORGANIC PHOSPHATE Routine 12/20/2022 2:16 AM CDT MAGNESIUM Routine 12/20/2022 2:16 AM CDT CALCIUM, IONIZED Routine 12/20/2022 2:16 AM CDT POCT GLUCOSE - STEARNS DOCKED DEVICE Routine 12/19/2022 9:51 PM CDT POCT GLUCOSE - STEARNS DOCKED DEVICE Routine 12/19/2022 3:43 PM CDT POCT GLUCOSE - STEARNS DOCKED DEVICE Routine 12/19/2022 11:30 AM CDT POCT GLUCOSE - STEARNS DOCKED DEVICE Routine 12/19/2022 8:45 AM CDT COMPREHENSIVE METABOLIC PANEL Routine 12/19/2022 2:34 AM CDT CBC W/DIFF AUTOMATED Routine 12/19/2022 2:34 AM CDT PHOSPHORUS, INORGANIC PHOSPHATE Routine 12/19/2022 2:34 AM CDT MAGNESIUM Routine 12/19/2022 2:34 AM CDT CALCIUM, IONIZED Routine 12/19/2022 2:34 AM CDT POCT GLUCOSE - STEARNS DOCKED DEVICE Routine 12/18/2022 11:04 PM CDT TROPONIN, QUANT STAT 12/18/2022 6:39 PM CDT ECG 12-LEAD STAT 12/18/2022 6:36 PM CDT POCT GLUCOSE - STEARNS DOCKED DEVICE Routine 12/18/2022 11:05 AM CDT POCT GLUCOSE - STEARNS DOCKED DEVICE Routine 12/18/2022 6:34 AM CDT PLATELET COMMENT Routine 12/18/2022 4:45 AM CDT COMPREHENSIVE METABOLIC PANEL Routine 12/18/2022 4:45 AM CDT CBC W/DIFF AUTOMATED Routine 12/18/2022 4:45 AM CDT PHOSPHORUS, INORGANIC PHOSPHATE Routine 12/18/2022 4:45 AM CDT MAGNESIUM Routine 12/18/2022 4:45 AM CDT CALCIUM, IONIZED Routine 12/18/2022 4:45 AM CDT POCT GLUCOSE - STEARNS DOCKED DEVICE Routine 12/17/2022 8:40 PM CDT BASIC METABOLIC PANEL Routine 12/17/2022 5:35 PM CDT POCT GLUCOSE - STEARNS DOCKED DEVICE Routine 12/17/2022 5:28 PM CDT CARDIAC PROFILE TIMED 12/17/2022 2:00 PM CDT POCT GLUCOSE - STEARNS DOCKED DEVICE Routine 12/17/2022 11:50 AM CDT XA C POSS Today 12/17/2022 11:10 AM CDT CBC W/DIFF AUTOMATED Routine 12/17/2022 8:00 AM CDT POCT GLUCOSE - STEARNS DOCKED DEVICE Routine 12/17/2022 5:58 AM CDT CARDIAC PROFILE TIMED 12/17/2022 5:50 AM CDT COMPREHENSIVE METABOLIC PANEL Routine 12/17/2022 5:50 AM CDT PHOSPHORUS, INORGANIC PHOSPHATE Routine 12/17/2022 5:50 AM CDT MAGNESIUM Routine 12/17/2022 5:50 AM CDT CALCIUM, IONIZED Routine 12/17/2022 5:50 AM CDT XR CHEST PORTABLE Routine 12/17/2022 5:1 4 AM CDT CARDIAC PROFILE TIMED 12/17/2022 12:05 AM CDT HEMOGLOBIN AND HEMATOCRIT TIMED 12/17/2022 12:05 AM CDT POCT GLUCOSE - STEARNS DOCKED DEVICE Routine 12/16/2022 8:35 PM CDT CARDIAC PROFILE TIMED 12/16/2022 4:21 PM CDT HEMOGLOBIN AND HEMATOCRIT TIMED 12/16/2022 4:21 PM CDT POCT GLUCOSE - STEARNS DOCKED DEVICE Routine 12/16/2022 3:55 PM CDT HC INFECT AGENT DETECT OPTICAL Nurse Collected Priority 12/16/2022 12:44 PM CDT POCT GLUCOSE - STEARNS DOCKED DEVICE Routine 12/16/2022 11:18 AM CDT USE ECHOCARDIOGRAM STAT 12/16/2022 10 :20 AM CDT CBC W/DIFF AUTOMATED Routine 12/16/2022 8:55 AM CDT CARDIAC PROFILE TIMED 12/16/2022 6:25 AM CDT COMPREHENSIVE METABOLIC PANEL Routine 12/16/2022 6:25 AM CDT PHOSPHORUS, INORGANIC PHOSPHATE Routine 12/16/2022 6:25 AM CDT MAGNESIUM Routine 12/16/2022 6:25 AM CDT CALCIUM, IONIZED Routine 12/16/2022 6:25 AM CDT POCT GLUCOSE - STEARNS DOCKED DEVICE Routine 12/16/2022 5:37 AM CDT TRANSFUSE RED BLOOD CELLS Routine 12/16/2022 3:55 AM CDT TYPE & SCREEN Routine 12/16/2022 2:35 AM CDT HEMOGLOBIN AND HEMATOCRIT TIMED 12/16/2022 2:10 AM CDT CARDIAC PROFILE TIMED 12/15/2022 11:35 PM CDT BASIC METABOLIC PANEL STAT 12/15/2022 11:35 PM CDT HEMOGLOBIN AND HEMATOCRIT TIMED 12/15/2022 7:22 PM CDT CBC, AUTO, NO DIFF Routine 12/15/2022 7: 22 PM CDT ECG 12-LEAD STAT 12/15/2022 7:13 PM CDT ECG 12-LEAD Routine 12/15/2022 7:13 PM CDT POCT ACUTE ARTERIAL PANEL Routine 12/15/2022 7:10 PM CDT CARDIAC PROFILE Routine 12/15/2022 7:06 PM CDT BASIC METABOLIC PANEL Routine 12/15/2022 7:06 PM CDT XR CHEST PORTABLE STAT 12/15/2022 7:0 5 PM CDT POCT GLUCOSE - STEARNS DOCKED DEVICE Routine 12/15/2022 4:[address] HEAD WO CON STAT 12/15/2022 3:01 PM CDT CTA CHEST+CT ABD+PEL W CON STAT 12/15/2022 3:01 PM CDT CULTURE RESPIRATORY W/ GRAM STAIN Nurse Collected Priority 12/15/2022 11:49 AM CDT POCT GLUCOSE - STEARNS DOCKED DEVICE Routine 12/15/2022 11:17 AM CDT RESPIRATORY PCR PANEL 2 Nurse Collected Priority 12/15/2022 11:11 AM CDT POCT ACUTE ARTERIAL PANEL Routine 12/15/2022 10:58 AM CDT RENAL FUNCTION PANEL TIMED 12/15/2022 8:52 AM CDT LACTIC ACID TIMED 12/15/2022 8:52 AM CDT LACTIC ACID TIMED 12/15/2022 6:55 AM CDT COMPREHENSIVE METABOLIC PANEL Routine 12/15/2022 5:05 AM CDT LACTIC ACID TIMED 12/15/2022 5:05 AM CDT CBC W/DIFF AUTOMATED STAT 12/15/2022 5:05 AM CDT TROPONIN, QUANT TIMED 12/15/2022 5:05 AM CDT PHOSPHORUS, INORGANIC PHOSPHATE Routine 12/15/2022 5:05 AM CDT MAGNESIUM Routine 12/15/2022 5:05 AM CDT CALCIUM, IONIZED Routine 12/15/2022 5:05 AM CDT HEMOGLOBIN AND HEMATOCRIT TIMED 12/15/2022 3:05 AM CDT LACTIC ACID TIMED 12/15/2022 3:05 AM CDT RENAL FUNCTION PANEL TIMED 12/15/2022 1:10 AM CDT LACTIC ACID TIMED 12/15/2022 1:10 AM CDT TROPONIN, QUANT TIMED 12/15/2022 1:10 AM CDT LACTIC ACID TIMED 12/14/2022 11:10 PM CDT TROPONIN, QUANT Routine 12/14/2022 11:10 PM CDT XR ABD KUB THUAN 12/14/2022 9:45 PM CDT LACTIC ACID TIMED 12/14/2022 9:15 PM CDT POCT GLUCOSE - STEARNS DOCKED DEVICE Routine 12/14/2022 8:53 PM CDT CLOSTRIDIUM DIFFICILE Nurse Collected Priority 12/14/2022 7:30 PM CDT URINE BACTERIA CULTURE Nurse Collected Priority 12/14/2022 7:28 PM CDT HC URINALYSIS AUTO W/MICRO Nurse Collected Priority 12/14/2022 7:00 PM CDT CULTURE, BACTERIA, BLOOD Routine 12/14/2022 7:00 PM CDT COMPREHENSIVE METABOLIC PANEL Routine 12/14/2022 6:58 PM CDT LACTIC ACID TIMED 12/14/2022 6:58 PM CDT CULTURE, BACTERIA, BLOOD Routine 12/14/2022 6:58 PM CDT CBC W/DIFF AUTOMATED Routine 12/14/2022 6:58 PM CDT TROPONIN, QUANT TIMED 12/14/2022 6:58 PM CDT THYROID STIM HORMONE TSH Routine 12/14/2022 6:58 PM CDT PHOSPHORUS, INORGANIC PHOSPHATE Routine 12/14/2022 6:58 PM CDT AMMONIA Routine 12/14/2022 6:58 PM CDT MAGNESIUM STAT 12/14/2022 6:58 PM CDT LIPASE Routine 12/14/2022 6:58 PM CDT XR CHEST PORTABLE STAT 12/14/2022 6:4 5 PM CDT CULTURE BLOOD, LINE DRAW Nurse Collected Priority 12/14/2022 6:38 PM CDT MRSA SCREENING Nurse Collected Priority 12/14/2022 6:38 PM CDT CULTURE, QUANTITATIVE W/ GRAM STAIN TIMED 12/14/2022 6:20 PM CDT CULTURE VIRAL RESPIRATORY RAPID Routine 12/14/2022 6:20 PM CDT CULTURE, FUNGUS TIMED 12/14/2022 6:20 PM CDT CULTURE HERPES Routine 12/14/2022 6:20 PM CDT CULTURE CMV Routine 12/14/2022 6:20 PM CDT CULTURE TB/AFB OTHER TIMED 12/14/2022 6:20 PM CDT HC SMEAR ACID FAST/FLUOR-90 TIMED 12/14/2022 6:20 PM CDT HISTOPLASMA ANTIGEN BLOOD CSF Routine 12/14/2022 6:20 PM CDT POCT GLUCOSE - STEARNS DOCKED DEVICE Routine 12/14/2022 6:00 PM CDT XR CHEST PORTABLE STAT 12/14/2022 5:5 0 PM CDT CYTOLOGY GENERIC Routine 12/14/2022 12:0 0 AM CDT documented in this encounter Results * POCT glucose (12/21/2022 6:15 AM CDT) [facility] GLUCOSE POC 87 70 - 109 12/21/2022 6:16 AM CDT [facility] 12/21/2022 6:15 AM CDT us Benitez Pizano MD POCT ORDERABLES - DEVICE Fin al Result [facility] [address] [place] [address], [id number] * (ABNORMAL) COMPREHENSIVE METABOLIC PANEL (12/21/2022 3:23 AM CDT) [facility] SODIUM S/P/B 139 136 - 145 MMOL/L 12/21/2022 4:10 AM CDT [facility] POTASSIUM S/P/B 3.9 3.5 - 5.1 MMOL/L 12/21/2022 4:10 AM CDT [facility] CHLORIDE S/P/B 105 98 - 107 MMOL/L 12/21/2022 4:10 AM CDT [facility] CO2 28.4 21.0 - 32.0 MMOL/L 12/21/2022 4:10 AM CDT [facility] GLUCOSE 96 74 - 106 MG/DL 12/21/2022 4:10 AM CDT [facility] BUN 21(H) 7 - 18 MG/DL 12/21/2022 4:10 AM CDT [facility] CREATININE S/P/B 0.60(L) 0.70 - 1.30 MG/DL 12/21/2022 4:10 AM CDT [facility] CALCIUM S/P/B 8.9 8.5 - 10.1 MG/DL 12/21/2022 4:10 AM CDT [facility] BILIRUBIN TOTAL S/P/B 0.5 0.2 - 1.0 MG/DL 12/21/2022 4:10 AM CDT [facility] ALKALINE PHOSPHATASE S/P/B 110 45 - 115 U/L 12/21/2022 4:10 AM CDT [facility] AST 15 15 - 37 U/L 12/21/2022 4:10 AM CDT [facility] ALT 58 16 - 61 U/L 12/21/2022 4:10 AM CDT [facility] TOTAL PROTEIN S/P/B 6.7 6.4 - 8.2 G/DL 12/21/2022 4:10 AM CDT [facility] ALBUMIN S/P/B 3.2(L) 3.4 - 5.0 G/DL 12/21/2022 4:10 AM CDT [facility] ANION GAP 5.6 5.0 - 15.0 MMOL/L 12/21/2022 4:10 AM CDT [facility] OSMOLALITY (CALC) 291 MOSM/KG 023 4:10 AM CDT [facility] Comment:REFERENCE RANGE NOT ESTABLISHED GFR ESTIMATE >90 >90 ML/MIN/1. 73 M2 12/21/2022 4:10 AM CDT [facility] GFR NOTES GFR REFERENCE S: 12/21/2022 4:10 AM CDT [facility] Comment: THE ESTIMATED GFR IS [...] ml/min/1.73 m2 G5,KIDNEY FAILURE: <15 ml/min/1.73 m2 12/21/2022 3:23 AM CDT us Benitez Pizano MD LABORATORY Final Result [facility] [address] [place] [address], [id number] * (ABNORMAL) CBC W/DIFF AUTOMATED (12/21/2022 3:23 AM CDT) [facility] WBC 5.11 4.00 - 10.80 x10'3/uL 12/21/2022 3:55 AM CDT [facility] RBC 4.06(L) 4.50 - 6.10 x10'6/uL 12/21/2022 3:55 AM CDT [facility] HGB 10.5(L) 13.0 - 18.0 G/DL 12/21/2022 3:55 AM CDT [facility] HCT 32.5(L) 37.0 - 52.0 % 12/21/2022 3:55 AM CDT [facility] MCV 80.0 78.0 - 100.0 FL 12/21/2022 3:55 AM CDT [facility] MCH 25.9(L) 27.0 - 31.0 PG 12/21/2022 3:55 AM CDT [facility] MCHC 32.3(L) 33.0 - 36.0 G/DL 12/21/2022 3:55 AM CDT [facility] RDW 16.2(H) 11.5 - 14.5 % 12/21/2022 3:55 AM CDT [facility] PLT 217 150 - 350 x10'3/uL 12/21/2022 3:55 AM CDT [facility] MPV 10.7(H) 7.4 - 10.4 FL 12/21/2022 3:55 AM CDT [facility] ABS. NEUTROPHILS 3.63 1.60 - 8.30 x10'3/uL 12/21/2022 5:07 AM CDT [facility] ABS. NEUTROPHILS CALCULATED 3.22 1.60 - 7.30 x10'3/uL 12/21/2022 5:07 AM CDT [facility] BANDS 0.10 0.00 - 1.00 x10'3/uL 12/21/2022 5:07 AM CDT [facility] ABS. LYMPHOCYTES 0.51(L) 0.80 - 4.70 x10'3/uL 12/21/2022 5:07 AM CDT [facility] ABS. MONOCYTES 0.87 0.00 - 1.50 x10'3/uL 12/21/2022 5:07 AM CDT [facility] ABS. EOSINOPHILS 0.10 0.00 - 0.40 x10'3/uL 12/21/2022 5:07 AM CDT [facility] ABS. BASOPHILS 0.00 0.00 - 0.20 x10'3/uL 12/21/2022 5:07 AM CDT [facility] ABS. METAMYELOCYTES 0.15(H) 0.00 x10'3/uL 12/21/2022 5:07 AM CDT [facility] ABS. MYELOCYTES 0.15(H) 0.00 x10'3/uL 12/21/2022 5:07 AM CDT [facility] ABS. NUCLEATED RBC'S 0.00 0.0 x10'3/uL 12/21/2022 5:07 AM CDT [facility] RBC MORPHOLOGY ANISOCYTOSIS 12/22/19 5:07 AM CDT [facility] Comment: SLIGHT MICROCYTOSIS SLIGHT POIKILOCYTOSIS SLIGHT OVALOCYTES WBC MORPHOLOGY DOHLE BODIES PRESENT 12/21/2022 5:07 AM CDT [facility] Comment:TOXIC GRANULATION PLT MORPH. NORMAL 12/21/2022 5:07 AM CDT [facility] 12/21/2022 3:23 AM CDT us Benitez Pizano MD LABORATORY Final Result [facility] [address] [place] [address], [id number] * CALCIUM, IONIZED (12/21/2022 3:23 AM CDT) CALCIUM IONIZED 1.19 1.15 - 1.33 MMOL/L 12/21/2022 3:46 AM CDT [facility] 12/21/2022 3:23 AM CDT us Estephanie Duran MD LABORATORY Final Result Performing Organization Address [facility]/ZIP Co de Phone Number [facility] [address] [place] [address], [id number] * PHOSPHORUS, INORGANIC PHOSPHATE (12/21/2022 3:23 AM CDT) PHOSPHORUS 3.1 2.5 - 4.9 MG/DL 12/21/2022 4:10 AM CDT [facility] 12/21/2022 3:23 AM CDT us Estephanie Duran MD LABORATORY Final Result Performing Organization Address [facility] Co de Phone Number [facility] [address] [place] [address], [id number] * MAGNESIUM (12/21/2022 3:23 AM CDT) MAGNESIUM 1.7 1.6 - 2.6 MG/DL 12/21/2022 4:10 AM CDT [facility] 12/21/2022 3:23 AM CDT us Estephanie Duran MD LABORATORY Final Result Performing Organization Address [facility]/ZIP Co de Phone Number [facility] [address] [place] [address], [id number] * (ABNORMAL) POCT glucose (12/20/2022 8:59 PM CDT) GLUCOSE POC 162(H) 70 - 109 12/21/2022 2:28 AM CDT [facility] 12/20/2022 8:59 PM CDT Benitez Pizano MD POCT ORDERABLES - DEVICE Fin al Result Performing Organization Address City/[facility]/ZIP Co de Phone Number [facility] [address] [place] [address], [place] [phone] * POCT glucose (12/20/2022 4:49 PM CDT) GLUCOSE POC 101 70 - 109 12/20/2022 5:25 PM CDT [facility] 12/20/2022 4:49 PM CDT Benitez Pizano MD POCT ORDERABLES - DEVICE Fin al Result Performing Organization Address [facility] Co de Phone Number [facility] [address] [place] [address], [place] [phone] * (ABNORMAL) POCT glucose (12/20/2022 11:59 AM CDT) GLUCOSE POC 126(H) 70 - 109 12/20/2022 1:03 PM CDT [facility] Comment:RN Notified 12/20/2022 11:5 9 AM CDT Benitez Pizano MD POCT ORDERABLES - DEVICE Fin al Result Performing Organization Address City/[facility] Co de Phone Number [facility] [address] [place] [address], [place] [phone] * POCT glucose (12/20/2022 5:42 AM CDT) [facility] GLUCOSE POC 88 70 - 109 12/20/2022 6:10 AM CDT [facility] 12/20/2022 5:42 AM CDT Marcelino Ling MD POCT ORDERABLES - DEVICE Final Result [facility] [address] [place] [address], [id number] * (ABNORMAL) COMPREHENSIVE METABOLIC PANEL (12/20/2022 2:16 AM CDT) [facility] SODIUM S/P/B 138 136 - 145 MMOL/L 12/20/2022 3:41 AM CDT [facility] POTASSIUM S/P/B 3.8 3.5 - 5.1 MMOL/L 12/20/2022 3:41 AM CDT [facility] CHLORIDE S/P/B 105 98 - 107 MMOL/L 12/20/2022 3:41 AM CDT [facility] CO2 28.6 21.0 - 32.0 MMOL/L 12/20/2022 3:41 AM CDT [facility] GLUCOSE 84 74 - 106 MG/DL 12/20/2022 3:41 AM CDT [facility] BUN 17 7 - 18 MG/DL 12/20/2022 3:41 AM CDT [facility] CREATININE S/P/B 0.50(L) 0.70 - 1.30 MG/DL 12/20/2022 3:41 AM CDT [facility] CALCIUM S/P/B 9.1 8.5 - 10.1 MG/DL 12/20/2022 3:41 AM CDT [facility] BILIRUBIN TOTAL S/P/B 0.6 0.2 - 1.0 MG/DL 12/20/2022 3:41 AM CDT [facility] ALKALINE PHOSPHATASE S/P/B 114 45 - 115 U/L 12/20/2022 3:41 AM CDT [facility] AST 18 15 - 37 U/L 12/20/2022 3:41 AM CDT [facility] ALT 62(H) 16 - 61 U/L 12/20/2022 3:41 AM CDT [facility] TOTAL PROTEIN S/P/B 6.6 6.4 - 8.2 G/DL 12/20/2022 3:41 AM CDT [facility] ALBUMIN S/P/B 3.2(L) 3.4 - 5.0 G/DL 12/20/2022 3:41 AM CDT [facility] ANION GAP 4.4(L) 5.0 - 15.0 MMOL/L 12/20/2022 3:41 AM T [facility] OSMOLALITY (CALC) 287 MOSM/KG 023 3:41 AM T [facility] Comment:REFERENCE RANGE NOT ESTABLISHED GFR ESTIMATE >90 >90 ML/MIN/1. 73 M2 12/20/2022 3:41 AM T [facility] GFR NOTES GFR REFERENCE S: 12/20/2022 3:41 AM T [facility] Comment: THE ESTIMATED GFR IS [...] ml/min/1.73 m2 G5,KIDNEY FAILURE: <15 ml/min/1.73 m2 12/20/2022 2:16 AM CDT us Estephanie Duran MD LABORATORY Final Result [facility] [address] [place] [address], [id number] * (ABNORMAL) CBC W/DIFF AUTOMATED (12/20/2022 2:16 AM CDT) [facility] Signature WBC 4.47 4.00 - 10.80 x10'3/uL 12/20/2022 3:34 AM CDT [facility] RBC 4.09(L) 4.50 - 6.10 x10'6/uL 12/20/2022 3:34 AM CDT [facility] HGB 10.4(L) 13.0 - 18.0 G/DL 12/20/2022 3:34 AM CDT [facility] HCT 33.0(L) 37.0 - 52.0 % 12/20/2022 3:34 AM CDT [facility] MCV 80.7 78.0 - 100.0 FL 12/20/2022 3:34 AM CDT [facility] MCH 25.4(L) 27.0 - 31.0 PG 12/20/2022 3:34 AM CDT [facility] MCHC 31.5(L) 33.0 - 36.0 G/DL 12/20/2022 3:34 AM CDT [facility] RDW 15.6(H) 11.5 - 14.5 % 12/20/2022 3:34 AM CDT [facility] PLT 182 150 - 350 x10'3/uL 12/20/2022 3:34 AM CDT [facility] MPV 11.2(H) 7.4 - 10.4 FL 12/20/2022 3:34 AM CDT [facility] ABS. NEUTROPHILS 3.26 1.60 - 8.30 x10'3/uL 12/20/2022 4:00 AM CDT [facility] ABS. NEUTROPHILS CALCULATED 2.95 1.60 - 7.30 x10'3/uL 12/20/2022 4:00 AM T [facility] BANDS 0.13 0.00 - 1.00 x10'3/uL 12/20/2022 4:00 AM T [facility] ABS. LYMPHOCYTES 0.63(L) 0.80 - 4.70 x10'3/uL 12/20/2022 4:00 AM T [facility] ABS. MONOCYTES 0.54 0.00 - 1.50 x10'3/uL 12/20/2022 4:00 AM T [facility] ABS. EOSINOPHILS 0.00 0.00 - 0.40 x10'3/uL 12/20/2022 4:00 AM [facility] ABS. BASOPHILS 0.04 0.00 - 0.20 x10'3/uL 12/20/2022 4:00 AM T [facility] ABS. METAMYELOCYTES 0.04(H) 0.00 x10'3/uL 12/20/2022 4:00 AM T [facility] ABS. MYELOCYTES 0.09(H) 0.00 x10'3/uL 12/20/2022 4:00 AM [facility] ABS. PROMYELOCYTES 0.04(H) 0.00 x10'3/uL 12/20/2022 4:00 AM [facility] ABS. NUCLEATED RBC'S 0.00 0.0 x10'3/uL 12/20/2022 4:00 AM [facility] RBC MORPHOLOGY ANISOCYTOSIS 12/21/19 4:00 AM [facility] Comment: SLIGHT MICROCYTOSIS SLIGHT HYPOCHROMASIA MODERATE TEARDROP CELLS OVALOCYTES POIKILOCYTOSIS MODERATE WBC MORPHOLOGY DOHLE BODIES PRESENT 12/20/2022 4:00 AM [facility] Comment: TOXIC GRANULATION HYPERSEGMENTED NEUTROPHILS PLT MORPH. NORMAL 12/20/2022 4:00 AM [facility] 12/20/2022 2:16 AM CDT us Estephanie Duran MD LABORATORY Final Result Performing Organization Address [facility] de Phone Number [facility] [address] [place] [address], [id number] * CALCIUM, IONIZED (12/20/2022 2:16 AM CDT) CALCIUM IONIZED 1.21 1.15 - 1.33 MMOL/L 12/20/2022 3:08 AM CDT [facility] 12/20/2022 2:16 AM CDT us Estephanie Duran MD LABORATORY Final Result Performing Organization Address [facility] de Phone Number [facility] [address] [place] [address], [id number] * PHOSPHORUS, INORGANIC PHOSPHATE (12/20/2022 2:16 AM CDT) PHOSPHORUS 3.1 2.5 - 4.9 MG/DL 12/20/2022 3:41 AM CDT [facility] 12/20/2022 2:16 AM CDT us Estephanie Duran MD LABORATORY Final Result Performing Organization Address [facility] de Phone Number [facility] [address] [place] [address], [place] [phone] * MAGNESIUM (12/20/2022 2:16 AM CDT) MAGNESIUM 1.7 1.6 - 2.6 MG/DL 12/20/2022 3:41 AM CDT [facility] 12/20/2022 2:16 AM CDT Estephanie Duran MD LABORATORY Final Result Performing Organization Address [facility] Co de Phone Number [facility] [address] [place] [address], [phone] * POCT glucose (12/19/2022 9:51 PM CDT) GLUCOSE POC 102 70 - 109 12/19/2022 10:03 PM CDT [facility] 12/19/2022 9:51 PM CDT Marcelino Ling MD POCT ORDERABLES - DEVICE Final Result Performing Organization Address [facility] Co de Phone Number [facility] [address] [place] [address], [phone] * POCT glucose (12/19/2022 3:43 PM CDT) GLUCOSE POC 87 70 - 109 12/19/2022 5:02 PM CDT [facility] Comment:RN Notified 12/19/2022 3:43 PM CDT Marcelino Ling MD POCT ORDERABLES - DEVICE Final Result Performing Organization Address [facility] Co de Phone Number [facility] [address] [place] [address], [place] [phone] * (ABNORMAL) POCT glucose (12/19/2022 11:30 AM CDT) GLUCOSE POC 123(H) 70 - 109 12/21/2022 7:27 AM CDT [facility] Comment:RN Notified 12/19/2022 11:3 0 AM CDT Benitez Pizano MD POCT ORDERABLES - DEVICE Fin al Result Performing Organization Address [facility]/ZIP Co de Phone Number [facility] [address] [place] [address], [place] [phone] * (ABNORMAL) POCT glucose (12/19/2022 8:45 AM CDT) [facility] GLUCOSE POC 66(L) 70 - 109 12/19/2022 8:52 AM CDT [facility] 12/19/2022 8:45 AM CDT us Marcelino Ling MD POCT ORDERABLES - DEVICE Final Result Performing Organization Address [facility] de Phone Number [facility] [address] [place] [address], [phone] * (ABNORMAL) COMPREHENSIVE METABOLIC PANEL (12/19/2022 2:34 AM CDT) [facility] SODIUM S/P/B 140 136 - 145 MMOL/L 12/19/2022 3:24 AM CDT [facility] POTASSIUM S/P/B 3.4(L) 3.5 - 5.1 MMOL/L 12/19/2022 3:24 AM CDT [facility] CHLORIDE S/P/B 106 98 - 107 MMOL/L 12/19/2022 3:24 AM CDT [facility] CO2 30.7 21.0 - 32.0 MMOL/L 12/19/2022 3:24 AM CDT [facility] GLUCOSE 75 74 - 106 MG/DL 12/19/2022 3:24 AM CDT [facility] BUN 19(H) 7 - 18 MG/DL 12/19/2022 3:24 AM CDT [facility] CREATININE S/P/B 0.61(L) 0.70 - 1.30 MG/DL 12/19/2022 3:24 AM CDT [facility] CALCIUM S/P/B 8.5 8.5 - 10.1 MG/DL 12/19/2022 3:24 AM T [facility] BILIRUBIN TOTAL S/P/B 0.5 0.2 - 1.0 MG/DL 12/19/2022 3:24 AM [facility] ALKALINE PHOSPHATASE S/P/B 99 45 - 115 U/L 12/19/2022 3:24 AM [facility] AST 22 15 - 37 U/L 12/19/2022 3:24 AM T [facility] ALT 70(H) 16 - 61 U/L 12/19/2022 3:24 AM [facility] TOTAL PROTEIN S/P/B 5.6(L) 6.4 - 8.2 G/DL 12/19/2022 3:24 AM [facility] ALBUMIN S/P/B 2.8(L) 3.4 - 5.0 G/DL 12/19/2022 3:24 AM [facility] ANION GAP 3.3(L) 5.0 - 15.0 MMOL/L 12/19/2022 3:24 AM [facility] OSMOLALITY (CALC) 291 MOSM/KG 023 3:24 AM [facility] Comment:REFERENCE RANGE NOT ESTABLISHED GFR ESTIMATE >90 >90 ML/MIN/1. 73 M2 12/19/2022 3:24 AM [facility] GFR NOTES GFR REFERENCE S: 12/19/2022 3:24 AM [facility] Comment: THE ESTIMATED GFR IS [...] ml/min/1.73 m2 G5,KIDNEY FAILURE: <15 ml/min/1.73 m2 12/19/2022 2:3 4 AM CDT Estephanie Duran MD LABORATORY Final Result [facility] [address] [place] [address], [phone] * (ABNORMAL) CBC W/DIFF AUTOMATED (12/19/2022 2:34 AM CDT) WBC 7.73 4.00 - 10.80 x10'3/uL 12/19/2022 3:00 AM CDT [facility] RBC 3.71(L) 4.50 - 6.10 x10'6/uL 12/19/2022 3:00 AM CDT [facility] HGB 9.4(L) 13.0 - 18.0 G/DL 12/19/2022 3:00 AM CDT [facility] HCT 28.8(L) 37.0 - 52.0 % 12/19/2022 3:00 AM CDT [facility] MCV 77.6(L) 78.0 - 100.0 FL 12/19/2022 3:00 AM CDT [facility] MCH 25.3(L) 27.0 - 31.0 PG 12/19/2022 3:00 AM CDT [facility] MCHC 32.6(L) 33.0 - 36.0 G/DL 12/19/2022 3:00 AM CDT [facility] RDW 15.4(H) 11.5 - 14.5 % 12/19/2022 3:00 AM CDT [facility] PLT 141(L) 150 - 350 x10'3/uL 12/19/2022 3:00 AM CDT [facility] MPV 10.6(H) 7.4 - 10.4 FL 12/19/2022 3:00 AM CDT [facility] ABS. NEUTROPHILS 6.57 1.60 - 8.30 x10'3/uL 12/19/2022 5:01 AM CDT [facility] ABS. NEUTROPHILS CALCULATED 6.34 1.60 - 7.30 x10'3/uL 12/19/2022 5:01 AM CDT [facility] BANDS 0.08 0.00 - 1.00 x10'3/uL 12/19/2022 5:01 AM CDT [facility] ABS. LYMPHOCYTES 0.46(L) 0.80 - 4.70 x10'3/uL 12/19/2022 5:01 AM CDT [facility] ABS. MONOCYTES 0.70 0.00 - 1.50 x10'3/uL 12/19/2022 5:01 AM CDT [facility] ABS. EOSINOPHILS 0.00 0.00 - 0.40 x10'3/uL 12/19/2022 5:01 AM CDT [facility] ABS. BASOPHILS 0.00 0.00 - 0.20 x10'3/uL 12/19/2022 5:01 AM CDT [facility] ABS. METAMYELOCYTES 0.15(H) 0.00 x10'3/uL 12/19/2022 5:01 AM CDT [facility] ABS. NUCLEATED RBC'S 0.00 0.0 x10'3/uL 12/19/2022 5:01 AM CDT [facility] RBC MORPHOLOGY ANISOCYTOSIS 12/20/19 5:01 AM CDT [facility] Comment: SLIGHT MICROCYTOSIS SLIGHT POLYCHROMASIA SLIGHT PLT MORPH. LOW 12/19/2022 5:01 AM CDT [facility] 12/19/2022 2:34 AM CDT Estephanie Duran MD LABORATORY Final Result [facility] [address] [place] [address], [phone] * CALCIUM, IONIZED (12/19/2022 2:34 AM CDT) CALCIUM IONIZED 1.16 1.15 - 1.33 MMOL/L 12/19/2022 3:03 AM CDT [facility] 12/19/2022 2:34 AM CDT us Estephanie Duran MD LABORATORY Final Result Performing Organization Address [facility] Co de Phone Number [facility] [address] [place] [address], [phone] * (ABNORMAL) PHOSPHORUS, INORGANIC PHOSPHATE (12/19/2022 2:34 AM CDT) PHOSPHORUS 2.3(L) 2.5 - 4.9 MG/DL 12/19/2022 3:24 AM CDT [facility] 12/19/2022 2:34 AM CDT us Estephanie Duran MD LABORATORY Final Result Performing Organization Address [facility] Co de Phone Number [facility] [address] [place] [address], [phone] * MAGNESIUM (12/19/2022 2:34 AM CDT) MAGNESIUM 1.6 1.6 - 2.6 MG/DL 12/19/2022 3:24 AM CDT [facility] 12/19/2022 2:34 AM CDT us Estephanie Duran MD LABORATORY Final Result Performing Organization Address [facility] Co de Phone Number [facility] [address] [place] [address], [place] [phone] * POCT glucose (12/18/2022 11:04 PM CDT) [facility] GLUCOSE POC 85 70 - 109 12/21/2022 7:28 AM CDT [facility] 12/18/2022 11:0 4 PM CDT Benitez Pizano MD POCT ORDERABLES - DEVICE Fin al Result Performing Organization Address [facility] Co de Phone Number [facility] [address] [place] [address], [phone] * (ABNORMAL) TROPONIN, QUANT (12/18/2022 6:39 PM CDT) [facility] TROPONIN I HIGH SENSITIVITY 3,406(H) 0 - 78 ng/L 12/18/2022 7:14 PM CDT [facility] 12/18/2022 6:39 PM CDT Nicolle Leigh MD LABORATORY Final Result Performing Organization Address [facility] de Phone Number [facility] [address] [place] [address], [phone] * ECG 12 lead (12/18/2022 6:36 PM CDT) 12/18/2022 6:36 PM CDT Narrative [facility] - 12/18/2022 7:27 PM CDT ? [facility] ?[address], [place] ??[address] ? Test Date: ?2022-12-18 Pat Name: ? CRYSTAL LELE ? Department: ?? 1 ? Room: ? 740AA Gender: ? Male ? 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 Ed : ?1990 ? Requested By: NOOR KHALID Order Number: [id number] ? Reading MD: ?? Aliyah Vazquez ? Measurements Intervals ?[place] ? Rate: ? 74 ? P: ?53 OR: ? 136 ?QRS: ?89 QRSD: ? 97 ? T: ?62 QT: ? 378 ? QTc: ?421 ? 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1990 Requested By: NICOLLE LEIGH Order Number: [id number] Reading MD: Aliyah Vazquez Measurements Intervals [place] Rate: 74 P: 53 OR: 136 QRS: 89 QRSD: 97 T: 62 QT: 378 QTc: 421 Interpretive Statements SINUS RHYTHM INCOMPLETE RIGHT BUNDLE BRANCH BLOCK MODERATE T-WAVE ABNORMALITY, CONSIDER LATERAL ISCHEMIA Nicolle Leigh MD ECG ORDERABLES Final Result Performing Organization Address [facility] de Phone Number [facility] * POCT glucose (12/18/2022 11:05 AM CDT) GLUCOSE POC 103 70 - 109 12/18/2022 11:18 AM CDT [facility] 12/18/2022 11:0 5 AM CDT Nicolle Leigh MD POCT ORDERABLES - DEVICE Final R esult Performing Organization Address [facility] de Phone Number [facility] [address] [place] [address], [phone] * (ABNORMAL) POCT glucose (12/18/2022 6:34 AM CDT) GLUCOSE POC 134(H) 70 - 109 12/18/2022 6:41 AM CDT [facility] 12/18/2022 6:34 AM CDT us Estephanie Duran MD POCT ORDERABLES - DEVICE Final R esult Performing Organization Address [facility] de Phone Number [facility] [address] [place] [address], [phone] * PLATELET COMMENT (12/18/2022 4:45 AM CDT) PLT MORPH. LOW 12/18/2022 7:51 AM CDT [facility] 12/18/2022 4:45 AM CDT us Estephanie Duran MD LABORATORY Final Result Performing Organization Address [facility] Phone Number [facility] [address] [place] [address], [phone] * (ABNORMAL) COMPREHENSIVE METABOLIC PANEL (12/18/2022 4:45 AM CDT) SODIUM S/P/B 139 136 - 145 MMOL/L 12/18/2022 5:38 AM CDT [facility] POTASSIUM S/P/B 3.9 3.5 - 5.1 MMOL/L 12/18/2022 5:38 AM CDT [facility] CHLORIDE S/P/B 106 98 - 107 MMOL/L 12/18/2022 5:38 AM CDT [facility] CO2 26.8 21.0 - 32.0 MMOL/L 12/18/2022 5:38 AM CDT [facility] GLUCOSE 127(H) 74 - 106 MG/DL 12/18/2022 5:38 AM CDT [facility] BUN 22(H) 7 - 18 MG/DL 12/18/2022 5:38 AM CDT [facility] CREATININE S/P/B 0.63(L) 0.70 - 1.30 MG/DL 12/18/2022 5:38 AM T [facility] CALCIUM S/P/B 8.7 8.5 - 10.1 MG/DL 12/18/2022 5:38 AM T [facility] BILIRUBIN TOTAL S/P/B 0.6 0.2 - 1.0 MG/DL 12/18/2022 5:38 AM T [facility] ALKALINE PHOSPHATASE S/P/B 104 45 - 115 U/L 12/18/2022 5:38 AM T [facility] AST 32 15 - 37 U/L 12/18/2022 5:38 AM [facility] ALT 84(H) 16 - 61 U/L 12/18/2022 5:38 AM [facility] TOTAL PROTEIN S/P/B 5.8(L) 6.4 - 8.2 G/DL 12/18/2022 5:38 AM [facility] ALBUMIN S/P/B 2.8(L) 3.4 - 5.0 G/DL 12/18/2022 5:38 AM [facility] ANION GAP 6.2 5.0 - 15.0 MMOL/L 12/18/2022 5:38 AM [facility] OSMOLALITY (CALC) 293 MOSM/KG 023 5:38 AM [facility] Comment:REFERENCE RANGE NOT ESTABLISHED GFR ESTIMATE >90 >90 ML/MIN/1. 73 M2 12/18/2022 5:38 AM T [facility] GFR NOTES GFR REFERENCE S: 12/18/2022 5:38 AM [facility] Comment: THE ESTIMATED GFR IS [...] ml/min/1.73 m2 G5,KIDNEY FAILURE: <15 ml/min/1.73 m2 12/18/2022 4:45 AM CDT Estephanie Duran MD LABORATORY Final Result [facility] [address] [place] [address], [phone] * (ABNORMAL) CBC W/DIFF AUTOMATED (12/18/2022 4:45 AM CDT) WBC 18.70(H) 4.00 - 10.80 x10'3/uL 12/18/2022 5:19 AM CDT [facility] RBC 3.71(L) 4.50 - 6.10 x10'6/uL 12/18/2022 5:19 AM CDT [facility] HGB 9.6(L) 13.0 - 18.0 G/DL 12/18/2022 5:19 AM CDT [facility] HCT 28.7(L) 37.0 - 52.0 % 12/18/2022 5:19 AM CDT [facility] MCV 77.4(L) 78.0 - 100.0 FL 12/18/2022 5:19 AM CDT [facility] MCH 25.9(L) 27.0 - 31.0 PG 12/18/2022 5:19 AM CDT [facility] MCHC 33.4 33.0 - 36.0 G/DL 12/18/2022 5:19 AM CDT [facility] RDW 15.1(H) 11.5 - 14.5 % 12/18/2022 5:19 AM CDT [facility] PLT 118(L) 150 - 350 x10'3/uL 12/18/2022 5:19 AM CDT [facility] MPV 10.5(H) 7.4 - 10.4 FL 12/18/2022 5:19 AM CDT [facility] ABS. NEUTROPHILS 16.64(H) 1.60 - 8.30 x10'3/uL 12/18/2022 5:30 AM CDT [facility] ABS. NEUTROPHILS CALCULATED 16.27(H) 1.60 - 7.30 x10'3/uL 12/18/2022 5:30 AM CDT [facility] BANDS 0.19 0.00 - 1.00 x10'3/uL 12/18/2022 5:30 AM CDT [facility] ABS. LYMPHOCYTES 0.37(L) 0.80 - 4.70 x10'3/uL 12/18/2022 5:30 AM CDT [facility] ABS. MONOCYTES 1.68(H) 0.00 - 1.50 x10'3/uL 12/18/2022 5:30 AM CDT [facility] ABS. EOSINOPHILS 0.00 0.00 - 0.40 x10'3/uL 12/18/2022 5:30 AM CDT [facility] ABS. BASOPHILS 0.00 0.00 - 0.20 x10'3/uL 12/18/2022 5:30 AM CDT [facility] ABS. METAMYELOCYTES 0.19(H) 0.00 x10'3/uL 12/18/2022 5:30 AM CDT [facility] ABS. NUCLEATED RBC'S 0.00 0.0 x10'3/uL 12/18/2022 5:30 AM T [facility] RBC MORPHOLOGY ANISOCYTOSIS 12/19/19 5:30 AM T [facility] Comment: SLIGHT MICROCYTOSIS SLIGHT 12/18/2022 4:45 AM CDT us Estephanie Duran MD LABORATORY Final Result Performing Organization Address [facility] Co de Phone Number [facility] [address] [place] [address], [phone] * CALCIUM, IONIZED (12/18/2022 4:45 AM CDT) CALCIUM IONIZED 1.15 1.15 - 1.33 MMOL/L 12/18/2022 4:59 AM CDT [facility] 12/18/2022 4:45 AM CDT us Estephanie Duran MD LABORATORY Final Result Performing Organization Address [facility] de Phone Number [facility] [address] [place] [address], [phone] * PHOSPHORUS, INORGANIC PHOSPHATE (12/18/2022 4:45 AM CDT) PHOSPHORUS 3.4 2.5 - 4.9 MG/DL 12/18/2022 5:38 AM CDT [facility] Comment: Result(s) Called to and read back by: DELMA CROCKETT ??at: 05:36:10 ??12/18/2022 by GRACY. 12/18/2022 4:45 AM CDT us Estephanie Duran MD LABORATORY Final Result Performing Organization Address [facility] Co de Phone Number [facility] [address] [place] [address], [phone] * MAGNESIUM (12/18/2022 4:45 AM CDT) MAGNESIUM 1.8 1.6 - 2.6 MG/DL 12/18/2022 5:38 AM CDT [facility] 12/18/2022 4:45 AM CDT us Estephanie Duran MD LABORATORY Final Result Performing Organization Address [facility]/ZIP Co de Phone Number [facility] [address] [place] [address], [place] [phone] * (ABNORMAL) POCT glucose (12/17/2022 8:40 PM CDT) GLUCOSE POC 146(H) 70 - 109 12/17/2022 8:56 PM CDT [facility] 12/17/2022 8:40 PM CDT us Estephanie Duran MD POCT ORDERABLES - DEVICE Final R esult Performing Organization Address [facility] de Phone Number [facility] [address] [place] [address], [place] [phone] * (ABNORMAL) BASIC METABOLIC PANEL (12/17/2022 5:35 PM CDT) SODIUM S/P/B 142 136 - 145 MMOL/L 12/17/2022 6:10 PM CDT [facility] POTASSIUM S/P/B 4.4 3.5 - 5.1 MMOL/L 12/17/2022 6:10 PM CDT [facility] CHLORIDE S/P/B 108(H) 98 - 107 MMOL/L 12/17/2022 6:10 PM CDT [facility] CO2 27.2 21.0 - 32.0 MMOL/L 12/17/2022 6:10 PM CDT [facility] GLUCOSE 124(H) 74 - 106 MG/DL 12/17/2022 6:10 PM CDT [facility] BUN 22(H) 7 - 18 MG/DL 12/17/2022 6:10 PM CDT [facility] CREATININE S/P/B 0.73 0.70 - 1.30 MG/DL 12/17/2022 6:10 PM CDT [facility] CALCIUM S/P/B 9.1 8.5 - 10.1 MG/DL 12/17/2022 6:10 PM CDT [facility] ANION GAP 6.8 5.0 - 15.0 MMOL/L 12/17/2022 6:10 PM CDT [facility] OSMOLALITY (CALC) 299 MOSM/KG 023 6:10 PM CDT [facility] Comment:REFERENCE RANGE NOT ESTABLISHED GFR ESTIMATE >90 >90 ML/MIN/1. 73 M2 12/17/2022 6:10 PM CDT [facility] GFR NOTES GFR REFERENCE S: 12/17/2022 6:10 PM CDT [facility] Comment: THE ESTIMATED GFR IS [...] ml/min/1.73 m2 G5,KIDNEY FAILURE: <15 ml/min/1.73 m2 12/17/2022 5:35 PM CDT Estephanie Duran MD LABORATORY Final Result [facility] [address] [place] [address], [phone] * (ABNORMAL) POCT glucose (12/17/2022 5:28 PM CDT) GLUCOSE POC 125(H) 70 - 109 12/17/2022 5:30 PM CDT [facility] 12/17/2022 5:28 PM CDT us Estephanie Duran MD POCT ORDERABLES - DEVICE Final R esult Performing Organization Address [facility] Co de Phone Number [facility] [address] [place] [address], [place] [phone] * (ABNORMAL) CARDIAC PROFILE (CK,CKMB,TROP) (12/17/2022 2:00 PM CDT) CPK 49 39 - 308 U/L 12/17/2022 2:33 PM CDT [facility] CK-MB 1.5 0.5 - 3.6 NG/ML 12/17/2022 2:33 PM CDT [facility] TROPONIN I HIGH SENSITIVITY 6,468(H) 0 - 78 ng/L 12/17/2022 2:33 PM CDT [facility] 12/17/2022 2:00 PM CDT us Estephanie Duran MD LABORATORY Final Result Performing Organization Address [facility] Co ga Phone Number [facility] [address] [place] [address], [place] [phone] * (ABNORMAL) POCT glucose (12/17/2022 11:50 AM CDT) GLUCOSE POC 144(H) 70 - 109 12/17/2022 12:00 PM CDT [facility] 12/17/2022 11:5 0 AM CDT us Estephanie Duran MD POCT ORDERABLES - DEVICE Final R esult Performing Organization Address [facility] Co de Phone Number [facility] [address] [place] [address], [place] [phone] * XA LHC POSS (12/17/2022 11:10 AM CDT) Anatomical Region Laterality Modality Cardiac [employer]k Washing Machine Operator 12/17/2022 9:55 AM CDT Kaycee Oliver MD LOSS PREVENTION ANALYST Final Result * (ABNORMAL) CBC W/DIFF AUTOMATED (12/17/2022 8:00 AM CDT) WBC 6.61 4.00 - 10.80 x10'3/uL 12/17/2022 8:48 AM CDT [facility] RBC 3.39(L) 4.50 - 6.10 x10'6/uL 12/17/2022 8:48 AM CDT [facility] HGB 8.7(L) 13.0 - 18.0 G/DL 12/17/2022 8:48 AM CDT [facility] HCT 25.6(L) 37.0 - 52.0 % 12/17/2022 8:48 AM CDT [facility] MCV 75.5(L) 78.0 - 100.0 FL 12/17/2022 8:48 AM CDT [facility] MCH 25.7(L) 27.0 - 31.0 PG 12/17/2022 8:48 AM CDT [facility] MCHC 34.0 33.0 - 36.0 G/DL 12/17/2022 8:48 AM CDT [facility] RDW 14.8(H) 11.5 - 14.5 % 12/17/2022 8:48 AM CDT [facility] PLT 87(L) 150 - 350 x10'3/uL 12/17/2022 10:44 AM CDT [facility] MPV 11.0(H) 7.4 - 10.4 FL 12/17/2022 10:44 AM CDT [facility] ABS. NEUTROPHILS 5.68 1.60 - 8.30 x10'3/uL 12/17/2022 11:05 AM CDT [facility] ABS. NEUTROPHILS CALCULATED 5.16 1.60 - 7.30 x10'3/uL 12/17/2022 11:05 AM CDT [facility] BANDS 0.26 0.00 - 1.00 x10'3/uL 12/17/2022 11:05 AM CDT [facility] ABS. LYMPHOCYTES 0.26(L) 0.80 - 4.70 x10'3/uL 12/17/2022 11:05 AM CDT [facility] ABS. MONOCYTES 0.60 0.00 - 1.50 x10'3/uL 12/17/2022 11:05 AM CDT [facility] ABS. EOSINOPHILS 0.07 0.00 - 0.40 x10'3/uL 12/17/2022 11:05 AM CDT [facility] ABS. BASOPHILS 0.00 0.00 - 0.20 x10'3/uL 12/17/2022 11:05 AM CDT [facility] ABS. METAMYELOCYTES 0.26(H) 0.00 x10'3/uL 12/17/2022 11:05 AM CDT [facility] ABS. NUCLEATED RBC'S 0.07(H) 0.0 x10'3/uL 12/17/2022 11:05 AM T [facility] RBC MORPHOLOGY POIKILOCYTOSIS 2022 11:05 AM CDT [facility] Comment: SLIGHT OVALOCYTES WBC MORPHOLOGY DOHLE BODIES PRESENT 12/17/2022 11:05 AM CDT [facility] Comment: VACUOLATED NEUTROPHILS TOXIC GRANULATION PLT MORPH. LOW 12/17/2022 11:05 AM T [facility] 12/17/2022 8:00 AM CDT us Estephanie Duran MD LABORATORY Final Result [facility] [address] [place] [address], [place] [phone] * POCT glucose (12/17/2022 5:58 AM CDT) [facility] GLUCOSE POC 95 70 - 109 12/17/2022 6:45 AM CDT [facility] 12/17/2022 5:58 AM CDT Estephanie Duran MD POCT ORDERABLES - DEVICE Final R esult [facility] [address] [place] [address], [phone] * (ABNORMAL) COMPREHENSIVE METABOLIC PANEL (12/17/2022 5:50 AM CDT) [facility] SODIUM S/P/B 142 136 - 145 MMOL/L 12/17/2022 6:53 AM CDT [facility] POTASSIUM S/P/B 2.6(LL) 3.5 - 5.1 MMOL/L 12/17/2022 6:53 AM CDT [facility] Comment: Critical Result(s) Called to and read back by: TORIBIO NGUYỄN ?? at: 06:51:09 ?? 12/17/2022 by SUZAN. CHLORIDE S/P/B 107 98 - 107 MMOL/L 12/17/2022 6:53 AM CDT [facility] CO2 28.5 21.0 - 32.0 MMOL/L 12/17/2022 6:53 AM CDT [facility] GLUCOSE 101 74 - 106 MG/DL 12/17/2022 6:53 AM CDT [facility] BUN 24(H) 7 - 18 MG/DL 12/17/2022 6:53 AM CDT [facility] CREATININE S/P/B 0.86 0.70 - 1.30 MG/DL 12/17/2022 6:53 AM CDT [facility] CALCIUM S/P/B 8.7 8.5 - 10.1 MG/DL 12/17/2022 6:53 AM T [facility] BILIRUBIN TOTAL S/P/B 0.7 0.2 - 1.0 MG/DL 12/17/2022 6:53 AM T [facility] ALKALINE PHOSPHATASE S/P/B 72 45 - 115 U/L 12/17/2022 6:53 AM T [facility] AST 69(H) 15 - 37 U/L 12/17/2022 6:53 AM T [facility] ALT 96(H) 16 - 61 U/L 12/17/2022 6:53 AM T [facility] TOTAL PROTEIN S/P/B 5.7(L) 6.4 - 8.2 G/DL 12/17/2022 6:53 AM T [facility] ALBUMIN S/P/B 2.8(L) 3.4 - 5.0 G/DL 12/17/2022 6:53 AM T [facility] ANION GAP 6.5 5.0 - 15.0 MMOL/L 12/17/2022 6:53 AM [facility] OSMOLALITY (CALC) 298 MOSM/KG 023 6:53 AM [facility] Comment:REFERENCE RANGE NOT ESTABLISHED GFR ESTIMATE >90 >90 ML/MIN/1. 73 M2 12/17/2022 6:53 AM [facility] GFR NOTES GFR REFERENCE S: 12/17/2022 6:53 AM [facility] Comment: THE ESTIMATED GFR IS [...] ml/min/1.73 m2 G5,KIDNEY FAILURE: <15 ml/min/1.73 m2 12/17/2022 5:50 AM CDT us Estephanie Duran MD LABORATORY Final Result Performing Organization Address [facility] de Phone Number [facility] [address] [place] [address], [phone] * (ABNORMAL) CARDIAC PROFILE (CK,CKMB,TROP) (12/17/2022 5:50 AM CDT) CPK 60 39 - 308 U/L 12/17/2022 6:53 AM CDT [facility] CK-MB 2.6 0.5 - 3.6 NG/ML 12/17/2022 6:53 AM CDT [facility] TROPONIN I HIGH SENSITIVITY 7,861(H) 0 - 78 ng/L 12/17/2022 6:53 AM CDT [facility] 12/17/2022 5:50 AM CDT us Estephanie Duran MD LABORATORY Final Result Performing Organization Address [facility] de Phone Number [facility] [address] [place] [address], [phone] * (ABNORMAL) CALCIUM, IONIZED (12/17/2022 5:50 AM CDT) CALCIUM IONIZED 1.12(L) 1.15 - 1.33 MMOL/L 12/17/2022 5:59 AM CDT [facility] 12/17/2022 5:50 AM CDT us Estephanie Duran MD LABORATORY Final Result Performing Organization Address [facility] Co de Phone Number [facility] [address] [place] [address], [place] [phone] * (ABNORMAL) PHOSPHORUS, INORGANIC PHOSPHATE (12/17/2022 5:50 AM CDT) PHOSPHORUS 1.1(L) 2.5 - 4.9 MG/DL 12/17/2022 6:53 AM CDT [facility] 12/17/2022 5:50 AM CDT us Estephanie Duran MD LABORATORY Final Result Performing Organization Address City/[facility]/ZIP Co de Phone Number [facility] [address] [place] [address], [phone] * MAGNESIUM (12/17/2022 5:50 AM CDT) MAGNESIUM 1.8 1.6 - 2.6 MG/DL 12/17/2022 6:53 AM CDT [facility] 12/17/2022 5:50 AM CDT Estephanie Duran MD LABORATORY Final Result [facility] [address] [place] [address], [place] [phone] * XR CHEST PORTABLE (12/17/2022 5:14 AM CDT) Anatomical Region Laterality Modality Chest Radiographic Nunu ging 12/17/2022 10:4 9 AM CDT Impressions 12/17/2022 10:51 AM CDT IMPRESSION: Interval decrease in size of right upper lobe pulmonary consolidation. Ordered By: ESTEPHANIE DURAN Interpreted By: Kevin Leos MD, 12/17/2022 10:49 AM Narrative 12/17/2022 10:51 AM CDT Examination: XR CHEST PORTABLE Exam time: 12/17/2022 5:12 AM Clinical history: CHF F/U ??HX: SEPTIC SHOCK; OLDER HX: HYPOKALEMIA, SVC SYNDROME Comparison: 12/15/2022 AP upright view chest x-ray. 12/15/2022 CT chest. Technique: AP upright view Findings: Multiple external wires and leads. Borderline size cardiac silhouette and central pulmonary vasculature. Left lung appears clear. Persistent focal right upper lung zone opacity consistent with pulmonary infiltrative change/pneumonia. This is decreased slightly in size since prior exam. Right subclavian Pagczn-p-Cvmp catheter appears stable with distal tip projecting in distal superior vena cava region. No evidence of pleural effusions. Procedure Note Kevin Leos MD - 12/17/2022 Examination: XR CHEST PORTABLE Exam time: 12/17/2022 5:12 AM Clinical history: CHF F/U HX: SEPTIC SHOCK; OLDER HX: HYPOKALEMIA, SVCSYNDROME Comparison: 12/15/2022 AP upright view chest x-ray. 12/15/2022 CT chest. Technique: AP upright view Findings: Multiple external wires and leads. Borderline size cardiacsilhouette and central pulmonary vasculature. Left lung appears clear.Persistent focal right upper lung zone opacity consistent with pulmonaryinfiltrative change/pneumonia. This is decreased slightly in size sinceprior exam. Right subclavian Tqodta-o-Ttra catheter appears stable withdistal tip projecting in distal superior vena cava region. No evidence ofpleural effusions. IMPRESSION: Interval decrease in size of right upper lobe pulmonary consolidation. Ordered By: ESTEPHANIE DURAN Interpreted By: Kevin Leos MD, 12/17/2022 10:49 AM us Estephanie Duran MD GENERAL IMAGING Final Result * (ABNORMAL) HEMOGLOBIN AND HEMATOCRIT (12/17/2022 12:05 AM CDT) [facility] HGB 8.9(L) 13.0 - 18.0 G/DL 12/17/2022 1:27 AM CDT [facility] HCT 25.7(L) 37.0 - 52.0 % 12/17/2022 1:27 AM CDT [facility] 12/17/2022 12:0 5 AM CDT us Lon Gauthier MD LABORATORY Final Resu lt Performing Organization Address [facility] Co de Phone Number [facility] [address] [place] [address], [phone] * (ABNORMAL) CARDIAC PROFILE (CK,CKMB,TROP) (12/17/2022 12:05 AM CDT) CPK 68 39 - 308 U/L 12/17/2022 12:48 AM CDT [facility] CK-MB 4.8(H) 0.5 - 3.6 NG/ML 12/17/2022 12:48 AM CDT [facility] TROPONIN I HIGH SENSITIVITY 6,391(H) 0 - 78 ng/L 12/17/2022 12:48 AM CDT [facility] 12/17/2022 12:0 5 AM CDT us Estephanie Duran MD LABORATORY Final Result Performing Organization Address [facility] de Phone Number [facility] [address] [place] [address], [phone] * POCT glucose (12/16/2022 8:35 PM CDT) GLUCOSE POC 104 70 - 109 12/16/2022 8:37 PM CDT [facility] 12/16/2022 8:35 PM CDT us Estephanie Duran MD POCT ORDERABLES - DEVICE Final R esult Performing Organization Address [facility] de Phone Number [facility] [address] [place] [address], [place] [phone] * (ABNORMAL) CARDIAC PROFILE (CK,CKMB,TROP) (12/16/2022 4:21 PM CDT) [facility] CPK 108 39 - 308 U/L 12/16/2022 5:05 PM CDT [facility] CK-MB 15.1(H) 0.5 - 3.6 NG/ML 12/16/2022 5:05 PM CDT [facility] TROPONIN I HIGH SENSITIVITY 5,702(H) 0 - 78 ng/L 12/16/2022 5:05 PM CDT [facility] 12/16/2022 4:21 PM CDT Estephanie Duran MD LABORATORY Final Result Performing Organization Address [facility]/ZIP Co de Phone Number [facility] [address] [place] [address], [phone] * (ABNORMAL) HEMOGLOBIN AND HEMATOCRIT (12/16/2022 4:21 PM CDT) [facility] HGB 8.7(L) 13.0 - 18.0 G/DL 12/16/2022 4:44 PM CDT [facility] HCT 25.2(L) 37.0 - 52.0 % 12/16/2022 4:44 PM CDT [facility] 12/16/2022 4:21 PM CDT Lon Gauthier MD LABORATORY Final Resu lt Performing Organization Address City/[facility]/ZIP Co de Phone Number [facility] [address] [place] [address], [phone] * (ABNORMAL) POCT glucose (12/16/2022 3:55 PM CDT) [facility] GLUCOSE POC 142(H) 70 - 109 12/16/2022 4:06 PM CDT [facility] 12/16/2022 3:55 PM CDT us Estephanie Duran MD POCT ORDERABLES - DEVICE Final R esult Performing Organization Address [facility] Co de Phone Number [facility] [address] [place] [address], [phone] * STREP PNEUMO AG URINE (12/16/2022 12:44 PM CDT) S. PNEUMONIAE URINARY AG NEGATIVE NEGATIVE 12/17/2022 2:09 PM CDT [facility] Comment: PRESUMPTIVE NEGATIVE FOR PNEUMOCOCCAL PNEUMONIA, SUGGESTING NO CURRENT OR RECENT PNEUMOCOCCAL INFECTION. INFECTION DUE TO STREPTOCOCCUS PNEUMONIA CANNOT BE RULED OUT SINCE THE ANTIGEN PRESENT IN THE SAMPLE MAY BELOW THE DETECTION LIMIT OF THE TEST. SPECIMEN TYPE URINE CLEAN CATCH 12/16/2022 12:45 PM CDT [facility] URINE SPECIMEN OBTAINED BY CLEAN CATCH PROCEDURE / Unknown 12/16/2022 12:44 PM CDT Coreen Bowser MD MICROBIOLOGY - GENERAL O RDERABLES Final Result Performing Organization Address [facility] de Phone Number [facility] [address] [place] [address], [phone] * (ABNORMAL) POCT glucose (12/16/2022 11:18 AM CDT) GLUCOSE POC 174(H) 70 - 109 12/16/2022 11:21 AM CDT [facility] 12/16/2022 11:1 8 AM CDT us Estephanie Duran MD POCT ORDERABLES - DEVICE Final R esult Performing Organization Address [facility] de Phone Number [facility] [address] [place] [address], [place] [phone] * USE ECHOCARDIOGRAM (12/16/2022 10:20 AM CDT) Anatomical Region Laterality Modality Cardiac Echocardiogram 12/16/2022 8:55 AM CDT Narrative 12/16/2022 2:15 PM CDT ?Echocardiography Report Pat.Name: ??CRYSTAL CAPONE ? Pat.ID: ?[id number] ? St.Date: ?? 12/16/2022 ? Refer.MD: ??[id number] ORACIO THOMPSON ?EWDPROV ?EWDPROV Exam Time: 8:55:00 AM ? Study Type:ECHO WITH CARDIAC DOPPLER COMP Height: ?167 cm ?Weight: ?75 kg ? BSA: ? 1.84 m2 ?Age: ??1990,32Y ? Sex: ? M ? BP: ?108/69 ? HR: ?80 bpm ?Sonogrphr: Nuria Delatorre RDCS ? Pat. Stat.:Inpatient ? Room: ?CVICU 15 ? CPT - 4: ?90930 ? Reason for Study:Shock ? Procedures: 2D, M-mode, Doppler, Color Flow, Portable, The study quality is technically adequate. ++++++++++++++++++++++++++++++++++++ SUMMARY: ++++++++++++++++++++++++++++++++++++ The left ventricular size is mildly enlarged. The left ventricular systolic function is mildly depressed. Estimated left ventricular ejection fraction is 45-50%. Basal Anteroseptal, Basal Inferior, Mid Anteroseptal, Mid Inferior mclain are hypokinetic. At least moderate eccenteric primary mitral regurgitation (could be underestimated) due to restricted posterior leaflet. Consider FRANCISCO Mild tricuspid regurgitation. ++++++++++++++++++++++++++++++++++++ FINDINGS: ++++++++++++++++++++++++++++++++++++ LV: ? The left ventricular size is mildly enlarged. The left ?ventricular systolic function is mildly depressed. Estimated ?left ventricular ejection fraction is 45-50%. The septal ?E/e' is indeterminate at 8-15. The lateral E/e' is elevated ?at >11. Left ventricular diastolic function is abnormal. ?Basal Anteroseptal, Basal Inferior, Mid Anteroseptal, Mid ?Inferior mclain are hypokinetic. RV: ? The right ventricle size is normal. The right ventricular ?function is normal. IVS: ?Abnormal septal motion is noted. LA: ? The left atrial size is normal. RA: ? Right atrial size is normal. IAS: ?Atrial septum appears intact. VIET: ? No evidence of pericardial effusion. AO: ? The aortic root measures 2.5 cm. The proximal ascending ?aorta measures 2.3cm. PA: ? The peak pulmonary artery systolic pressure is estimated to ?be approximately 29 mmHg. Estimated right atrial pressure of ?3 mmHg. PVn: ?Pulmonary veins are not assessable. SVn: ?Inferior vena cava shows >50% collapse with respiration ?consistent with normal right atrial pressure. AV: ? The aortic valve is trileaflet. No evidence of aortic valve ?stenosis. No evidence of aortic valve regurgitation. MV: ? At least moderate eccenteric primary mitral regurgitation ?(could be underestimated) due to restricted posterior ?leaflet. Consider FRANCISCO No evidence of mitral stenosis. Mild ?thickening of mitral valve leaflets. PV: ? The pulmonic valve is normal There is trace pulmonic ?regurgitation TV: ? Mild tricuspid regurgitation. No evidence of tricuspid valve ?stenosis. ++++++++++++++++++++++++++++++++++++ MEASUREMENTS: ++++++++++++++++++++++++++++++++++++ ?DOPPLER LVOT ?? LVOTpkPG ? 5 mmHg ?LVOTmnPG ? 2 mmHg LVOTpkVel ?107 cm/s (70-110) LVOT SV ? 61 ml ?? LVOT TVI ?20.1 cm ? AV Forward Flow AV TVI ?21.9 cm ?AV pkPG ?6 mmHg AV pkVel ? 118 cm/s (100-170) Area (TVI) ?2.77 cm2 ??(3-5)* AV mnVel ?83.4 cm/s ?Area (Loki) ?2.74 cm2 ??(3-5)* AV mnPG ?3 mmHg ? MV Forward Flow MV DeTm ?121 msec ?MV pkE ? 100 cm/s (60- 130) MV E/A ? 1.7 ? MV pkA ?58.7 cm/s MV Regurg Flow MV FlwInt ? 51.2 ml/s ?MV mnVel ? 341 cm/s MV TVI ? 122 cm ?MV pkPG ? 71 mmHg MV mnPG ? 50 mmHg ? MV pkVel ? 420 cm/s (60-130)+* MV PISA MV ERO ?0.12 cm2 ? MV Flw ?1.48 cc/s MV RgVol ?15 ml ?MV AliasVel ? 34.6 cm/s TV Regurg Flow TV pkPG ? 25 mmHg ? TV pkVel ? 249 cm/s (30-70)+* Lat E' ?? Lat e ? 8.79 cm/s ? Lat E/E' ?? Lat E/e ? 11.4 ? Med E' ?? Med e ? 9.14 cm/s ? Med E/E' ?? Med E/e ? 10.9 ? Aortic Valve ?? Aortic Valve Ar ??1.51 ?Aortic Valve Ve ??0.91 ? AV DI ?? Value ?0.9 ? CHRISTIANO (VTI) Index ?? Value ? 1.51 ? LV Mass 2D ?? Value ?176 g ? LV Mass Hvnvm2W ?? Value ? 95.7 g/m2 ? Right Ventricle ?? Right Ventricle ??9.21 cm/s ?2D Left Ventricle ?? LVIDd ? 5.58 cm ?? (3.6-5.2)* LV EF(Bi-Plane) ??44.9 % ?(63-77)* LVIDs ? 4.49 cm ?? (2.3-3.9)* LVPW ?? LVPWd ? 1.01 cm ? Ventricular Septum ?? IVSd ?0.68 cm ? Aorta ?? Ao Rtd ?2.56 cm ?? (zsc -0.6) Ao Asc ?2.39 cm ?? (zsc 0) LVOT ?? LVOT ?1.96 cm ? Ratios ?? IVS LA Biplane LAVol I BP ?38.3 ml/m2 ? Right Ventricle ?? Right Ventricle ??3.11 cm ? [place] ?8.62 cm ?? Right Ventricul ??22.8 cm2 ?Right Ventricul ??39.5 % ?? Right Ventricul ??13.8 cm2 ?MMODE TA ?? Tricuspid Annul ??2.58 cm ? ++++++++++++++++++++++++++++++++++++ WALL MOTION: ++++++++++++++++++++++++++++++++++++ RESTING WALL MOTION: Basal Anteroseptal, Basal Inferior, Mid Anteroseptal, Mid Inferior mclain are hypokinetic. ?? Wall Index = 2 <Electronic Signature> 12/16/2022 02:15 PM Kaycee Oliver M.D. Procedure Note Kaycee Oliver MD - 12/16/2022 Echocardiography Report Pat.Name: CRYSTAL CAPONE Pat.ID: [id number] St.Date: 12/16/2022 Refer.MD: [id number] [facility]IOSELECT [facility]ONMAHESH WOODSSH EWDPROV EWDPROV Exam Time: 8:55:00 AM Study Type:ECHO WITH CARDIAC DOPPLER COMP Height: 167 cm Weight: 75 kg BSA: 1.84 m2 Age: 8 1990,32Y Sex: M BP: 108/69 HR: 80 bpm Sonogrphr: Nuria Delatorre [facility] Pat. Stat.:Inpatient Room: [place] [address] CPT - 4: 33711 Reason for Study:Shock Procedures: 2D, M-mode, Doppler, Color Flow, Portable, The study quality is technically adequate. ++++++++++++++++++++++++++++++++++++ SUMMARY: ++++++++++++++++++++++++++++++++++++ The left ventricular size is mildly enlarged. The left ventricular systolic function is mildly depressed. Estimated left ventricular ejection fraction is 45-50%. Basal Anteroseptal, Basal Inferior, Mid Anteroseptal, Mid Inferior mclain are hypokinetic. At least moderate eccenteric primary mitral regurgitation (could be underestimated) due to restricted posterior leaflet. Consider FRANCISCO Mild tricuspid regurgitation. ++++++++++++++++++++++++++++++++++++ FINDINGS: ++++++++++++++++++++++++++++++++++++ LV: The left ventricular size is mildly enlarged. The left ventricular systolic function is mildly depressed. Estimated left ventricular ejection fraction is 45-50%. The septal E/e' is indeterminate at 8-15. The lateral E/e' is elevated at >11. Left ventricular diastolic function is abnormal. Basal Anteroseptal, Basal Inferior, Mid Anteroseptal, Mid Inferior mclain are hypokinetic. RV: The right ventricle size is normal. The right ventricular function is normal. IVS: Abnormal septal motion is noted. LA: The left atrial size is normal. RA: Right atrial size is normal. IAS: Atrial septum appears intact. VIET: No evidence of pericardial effusion. AO: The aortic root measures 2.5 cm. The proximal ascending aorta measures 2.3cm. PA: The peak pulmonary artery systolic pressure is estimated to be approximately 29 mmHg. Estimated right atrial pressure of 3 mmHg. PVn: Pulmonary veins are not assessable. SVn: Inferior vena cava shows >50% collapse with respiration consistent with normal right atrial pressure. AV: The aortic valve is trileaflet. No evidence of aortic valve stenosis. No evidence of aortic valve regurgitation. MV: At least moderate eccenteric primary mitral regurgitation (could be underestimated) due to restricted posterior leaflet. Consider FRANCISCO No evidence of mitral stenosis. Mild thickening of mitral valve leaflets. PV: The pulmonic valve is normal There is trace pulmonic regurgitation TV: Mild tricuspid regurgitation. No evidence of tricuspid valve stenosis. ++++++++++++++++++++++++++++++++++++ MEASUREMENTS: ++++++++++++++++++++++++++++++++++++ DOPPLER LVOT LVOTpkPG 5 mmHg LVOTmnPG 2 mmHg LVOTpkVel 107 cm/s (70-110) LVOT SV 61 ml LVOT TVI 20.1 cm AV Forward Flow AV TVI 21.9 cm AV pkPG 6 mmHg AV pkVel 118 cm/s (100-170) Area (TVI) 2.77 cm2 (3-5)* AV mnVel 83.4 cm/s Area (Loki) 2.74 cm2 (3-5)* AV mnPG 3 mmHg MV Forward Flow MV DeTm 121 msec MV pkE 100 cm/s (60-130) MV E/A 1.7 MV pkA 58.7 cm/s MV Regurg Flow MV FlwInt 51.2 ml/s MV mnVel 341 cm/s MV TVI 122 cm MV pkPG 71 mmHg MV mnPG 50 mmHg MV pkVel 420 cm/s (60-130)+* MV PISA MV ERO 0.12 cm2 MV Flw 1.48 cc/s MV RgVol 15 ml MV AliasVel 34.6 cm/s TV Regurg Flow TV pkPG 25 mmHg TV pkVel 249 cm/s (30-70)+* Lat E' Lat e 8.79 cm/s Lat E/E' Lat E/e 11.4 Med E' Med e 9.14 cm/s Med E/E' Med E/e 10.9 Aortic Valve Aortic Valve Ar 1.51 Aortic Valve Ve 0.91 AV DI Value 0.9 CHRISTIANO (VTI) Index Value 1.51 LV Mass 2D Value 176 g LV Mass Smcig8P Value 95.7 g/m2 Right Ventricle Right Ventricle 9.21 cm/s 2D Left Ventricle LVIDd 5.58 cm (3.6-5.2)* LV EF(Bi-Plane) 44.9 % (63-77)* LVIDs 4.49 cm (2.3-3.9)* LVPW LVPWd 1.01 cm Ventricular Septum IVSd 0.68 cm Aorta Ao Rtd 2.56 cm (zsc -0.6) Ao Asc 2.39 cm (zsc 0) LVOT LVOT 1.96 cm Ratios IVS LA Biplane LAVol I BP 38.3 ml/m2 Right Ventricle Right Ventricle 3.11 cm [place] 8.62 cm Right Ventricul 22.8 cm2 Right Ventricul 39.5 % Right Ventricul 13.8 cm2 MMODE TA Tricuspid Annul 2.58 cm ++++++++++++++++++++++++++++++++++++ WALL MOTION: ++++++++++++++++++++++++++++++++++++ RESTING WALL MOTION: Basal Anteroseptal, Basal Inferior, Mid Anteroseptal, Mid Inferior mclain are hypokinetic. Wall Index = 2 <Electronic Signature> 12/16/2022 02:15 PM Kaycee Oliver M.D. Estephanie Duran MD ECHO Final Result * (ABNORMAL) CBC W/DIFF AUTOMATED (12/16/2022 8:55 AM CDT) WBC 3.40(L) 4.00 - 10.80 x10'3/uL 12/16/2022 9:32 AM CDT [facility] RBC 3.25(L) 4.50 - 6.10 x10'6/uL 12/16/2022 9:32 AM CDT [facility] HGB 8.2(L) 13.0 - 18.0 G/DL 12/16/2022 9:32 AM CDT [facility] HCT 24.3(L) 37.0 - 52.0 % 12/16/2022 9:32 AM CDT [facility] MCV 74.8(L) 78.0 - 100.0 FL 12/16/2022 9:32 AM CDT [facility] MCH 25.2(L) 27.0 - 31.0 PG 12/16/2022 9:32 AM CDT [facility] MCHC 33.7 33.0 - 36.0 G/DL 12/16/2022 9:32 AM CDT [facility] RDW 14.6(H) 11.5 - 14.5 % 12/16/2022 9:32 AM CDT [facility] PLT 57(L) 150 - 350 x10'3/uL 12/16/2022 9:32 AM CDT [facility] MPV 10.9(H) 7.4 - 10.4 FL 12/16/2022 9:32 AM T [facility] ABS. NEUTROPHILS 2.96 1.60 - 8.30 x10'3/uL 12/16/2022 10:08 AM [facility] ABS. NEUTROPHILS CALCULATED 2.41 1.60 - 7.30 x10'3/uL 12/16/2022 10:08 AM T [facility] BANDS 0.51 0.00 - 1.00 x10'3/uL 12/16/2022 10:08 AM [facility] ABS. LYMPHOCYTES 0.10(L) 0.80 - 4.70 x10'3/uL 12/16/2022 10:08 AM [facility] ABS. MONOCYTES 0.34 0.00 - 1.50 x10'3/uL 12/16/2022 10:08 AM [facility] ABS. EOSINOPHILS 0.00 0.00 - 0.40 x10'3/uL 12/16/2022 10:08 AM [facility] ABS. BASOPHILS 0.00 0.00 - 0.20 x10'3/uL 12/16/2022 10:08 AM [facility] ABS. PROMYELOCYTES 0.03(H) 0.00 x10'3/uL 12/16/2022 10:08 AM [facility] ABS. NUCLEATED RBC'S 0.00 0.0 x10'3/uL 12/16/2022 10:08 AM [facility] RBC MORPHOLOGY POIKILOCYTOSIS 2022 10:08 AM [facility] Comment: SLIGHT OVALOCYTES TEARDROP CELLS SAGE CELLS TARGET CELLS ANISOCYTOSIS SLIGHT MICROCYTOSIS SLIGHT WBC MORPHOLOGY TOXIC GRANULATION 10:08 AM [facility] Comment: DOHLE BODIES PRESENT VACUOLATED NEUTROPHILS PLT MORPH. LOW 12/16/2022 10:08 AM [facility] 12/16/2022 8:55 AM CDT Lon Gauthier MD LABORATORY Final Resu lt Performing Organization Address [facility]/ZIP Co de Phone Number [facility] [address] [place] [address], [phone] * TRANSFUSE RED BLOOD CELLS (12/16/2022 6:37 AM CDT) Florecita Hernandez MD NURSING TREATMENT ORDERABLE S - BLOOD ADMIN Final Result * TRANSFUSE RED BLOOD CELLS, 1 Units (12/16/2022 6:37 AM CDT) Florecita Hernandez MD NURSING TREATMENT ORDERABLE S - BLOOD ADMIN Final Result * (ABNORMAL) CARDIAC PROFILE (CK,CKMB,TROP) (12/16/2022 6:25 AM CDT) CPK 246 39 - 308 U/L 12/16/2022 7:11 AM CDT [facility] CK-MB 44.3(H) 0.5 - 3.6 NG/ML 12/16/2022 7:11 AM CDT [facility] TROPONIN I HIGH SENSITIVITY 9,747(H) 0 - 78 ng/L 12/16/2022 7:11 AM CDT [facility] 12/16/2022 6:25 AM CDT Estephanie Duran MD LABORATORY Final Result Performing Organization Address [facility] Co de Phone Number [facility] [address] [place] [address], [phone] * (ABNORMAL) CALCIUM, IONIZED (12/16/2022 6:25 AM CDT) CALCIUM IONIZED 1.11(L) 1.15 - 1.33 MMOL/L 12/16/2022 6:40 AM CDT [facility] 12/16/2022 6:25 AM CDT us Estephanie Duran MD LABORATORY Final Result Performing Organization Address [facility] Co de Phone Number [facility] [address] [place] [address], [place] [phone] * PHOSPHORUS, INORGANIC PHOSPHATE (12/16/2022 6:25 AM CDT) PHOSPHORUS 2.7 2.5 - 4.9 MG/DL 12/16/2022 7:11 AM CDT [facility] 12/16/2022 6:25 AM CDT us Estephanie Duran MD LABORATORY Final Result Performing Organization Address [facility] de Phone Number [facility] [address] [place] [address], [phone] * MAGNESIUM (12/16/2022 6:25 AM CDT) MAGNESIUM 2.2 1.6 - 2.6 MG/DL 12/16/2022 7:11 AM CDT [facility] 12/16/2022 6:25 AM CDT us Estephanie Duran MD LABORATORY Final Result Performing Organization Address [facility] de Phone Number [facility] [address] [place] [address], [place] [phone] * (ABNORMAL) COMPREHENSIVE METABOLIC PANEL (12/16/2022 6:25 AM CDT) SODIUM S/P/B 139 136 - 145 MMOL/L 12/16/2022 7:11 AM CDT [facility] POTASSIUM S/P/B 3.7 3.5 - 5.1 MMOL/L 12/16/2022 7:11 AM CDT [facility] CHLORIDE S/P/B 107 98 - 107 MMOL/L 12/16/2022 7:11 AM T [facility] CO2 24.0 21.0 - 32.0 MMOL/L 12/16/2022 7:11 AM T [facility] GLUCOSE 139(H) 74 - 106 MG/DL 12/16/2022 7:11 AM T [facility] BUN 25(H) 7 - 18 MG/DL 12/16/2022 7:11 AM T [facility] CREATININE S/P/B 1.19 0.70 - 1.30 MG/DL 12/16/2022 7:11 AM [facility] CALCIUM S/P/B 8.2(L) 8.5 - 10.1 MG/DL 12/16/2022 7:11 AM T [facility] BILIRUBIN TOTAL S/P/B 0.8 0.2 - 1.0 MG/DL 12/16/2022 7:11 AM T [facility] ALKALINE PHOSPHATASE S/P/B 72 45 - 115 U/L 12/16/2022 7:11 AM T [facility] AST 166(H) 15 - 37 U/L 12/16/2022 7:11 AM [facility] ALT 115(H) 16 - 61 U/L 12/16/2022 7:11 AM T [facility] TOTAL PROTEIN S/P/B 5.8(L) 6.4 - 8.2 G/DL 12/16/2022 7:11 AM T [facility] ALBUMIN S/P/B 2.7(L) 3.4 - 5.0 G/DL 12/16/2022 7:11 AM [facility] ANION GAP 8.0 5.0 - 15.0 MMOL/L 12/16/2022 7:11 AM T [facility] OSMOLALITY (CALC) 295 MOSM/KG 023 7:11 AM CDT [facility] Comment:REFERENCE RANGE NOT ESTABLISHED GFR ESTIMATE 83(L) >90 ML/MIN/1. 73 M2 12/16/2022 7:11 AM CDT [facility] GFR NOTES GFR REFERENCE S: 12/16/2022 7:11 AM CDT [facility] Comment: THE ESTIMATED GFR IS [...] ml/min/1.73 m2 G5,KIDNEY FAILURE: <15 ml/min/1.73 m2 12/16/2022 6:25 AM CDT Lon Gauthier MD LABORATORY Final Resu lt Performing Organization Address City/[facility]/ZIP Co de Phone Number [facility] [address] [place] [address], [phone] * (ABNORMAL) POCT glucose (12/16/2022 5:37 AM CDT) GLUCOSE POC 144(H) 70 - 109 12/16/2022 5:53 AM CDT [facility] 12/16/2022 5:37 AM CDT Estephanie Duran MD POCT ORDERABLES - DEVICE Final R esult Performing Organization Address City/[facility]/ZIP Co de Phone Number [facility] [address] [place] [address], [phone] * TYPE & SCREEN (12/16/2022 2:35 AM CDT) UNITS ORDERED 1 12/16/2022 2:57 AM CDT [facility] ABO/RH O POSITIVE 12/16/2022 3:37 AM CDT [facility] ANTIBODY SCREEN NEGATIVE 3:37 AM CDT [facility] SAMPLE EXPIRATION 12/19/2022,2359 12/16/2022 2:57 AM CDT [facility] BLOOD UNIT NUMBER [id number] 12/16/2022 3:48 AM CDT [facility] PRODUCT: PC LEUKOPOOR 12/16/2022 3:48 AM CDT [facility] UNIT DIVISION 00 12/16/2022 3:48 AM CDT [facility] BLOOD UNIT STATUS TRANSFUSED,FINAL 12/17/2022 6:53 AM CDT [facility] ISSUE DATE/TIME [id number] 023 6:53 AM CDT [facility] PRODUCT CODE [id number] 12/17/2022 6:53 AM CDT [facility] ABO/RH Unit O NEG 12/17/2022 6:53 AM CDT [facility] ABO/RH UNIT ISBT CODE [id number] 12/17/2022 6:53 AM CDT [facility] BLOOD UNIT EXPIRATION DATE [id number] 12/17/2022 6:53 AM CDT [facility] TRANSFUSION STATUS OK TO TRANSFUSE 12/16/2022 3:48 AM CDT [facility] CROSSMATCH COMPATIBLE-EXM 12/16/2022 3:48 AM CDT [facility] 12/16/2022 2:35 AM CDT Florecita Hernandez MD BLOOD BANK TEST ORDERABLES Final Result [facility] [address] [place] [address], [phone] * (ABNORMAL) HEMOGLOBIN AND HEMATOCRIT (12/16/2022 2:10 AM CDT) Pathologist [facility] HGB 6.8(LL) 13.0 - 18.0 G/DL 12/16/2022 2:23 AM CDT [facility] Comment: CRITICAL RESULT, SPECIMEN DATE, TIME WERE READ BACK BY DELMA ARMSTRONG @ 022 ON 12.16.22.MM HCT 20.1(L) 37.0 - 52.0 % 12/16/2022 2:23 AM CDT [facility] 12/16/2022 2:10 AM CDT Lon Gauthier MD LABORATORY Final Resu lt [facility] [address] [place] [address], [phone] * (ABNORMAL) BASIC METABOLIC PANEL (12/15/2022 11:35 PM CDT) [facility] SODIUM S/P/B 139 136 - 145 MMOL/L 12/16/2022 12:23 AM CDT [facility] POTASSIUM S/P/B 3.4(L) 3.5 - 5.1 MMOL/L 12/16/2022 12:23 AM CDT [facility] CHLORIDE S/P/B 107 98 - 107 MMOL/L 12/16/2022 12:23 AM CDT [facility] CO2 24.6 21.0 - 32.0 MMOL/L 12/16/2022 12:23 AM CDT [facility] GLUCOSE 105 74 - 106 MG/DL 12/16/2022 12:23 AM CDT [facility] BUN 24(H) 7 - 18 MG/DL 12/16/2022 12:23 AM CDT [facility] CREATININE S/P/B 1.23 0.70 - 1.30 MG/DL 12/16/2022 12:23 AM CDT [facility] CALCIUM S/P/B 8.3(L) 8.5 - 10.1 MG/DL 12/16/2022 12:23 AM CDT [facility] ANION GAP 7.4 5.0 - 15.0 MMOL/L 12/16/2022 12:23 AM CDT [facility] OSMOLALITY (CALC) 292 MOSM/KG 023 12:23 AM CDT [facility] Comment:REFERENCE RANGE NOT ESTABLISHED GFR ESTIMATE 79(L) >90 ML/MIN/1. 73 M2 12/16/2022 12:23 AM CDT [facility] GFR NOTES GFR REFERENCE S: 12/16/2022 12:23 AM T [facility] Comment: THE ESTIMATED GFR IS [...] ml/min/1.73 m2 G5,KIDNEY FAILURE: <15 ml/min/1.73 m2 12/15/2022 11:3 5 PM CDT us Estehpanie Duran MD LABORATORY Final Result [facility] [address] [place] [address], [phone] * (ABNORMAL) CARDIAC PROFILE (CK,CKMB,TROP) (12/15/2022 11:35 PM CDT) CPK 425(H) 39 - 308 U/L 12/16/2022 12:12 AM CDT [facility] CK-MB 81.7(H) 0.5 - 3.6 NG/ML 12/16/2022 12:12 AM CDT [facility] TROPONIN I HIGH SENSITIVITY 16,960(H) 0 - 78 ng/L 12/16/2022 12:12 AM CDT [facility] 12/15/2022 11:3 5 PM CDT us Estephanie Duran MD LABORATORY Final Result [facility] [address] [place] [address], [phone] * (ABNORMAL) CBC, AUTO, NO DIFF (12/15/2022 7:22 PM CDT) WBC 0.89(L) 4.00 - 10.80 x10'3/uL 12/15/2022 9:16 PM CDT [facility] RBC 2.92(L) 4.50 - 6.10 x10'6/uL 12/15/2022 9:16 PM CDT [facility] HGB 7.3(L) 13.0 - 18.0 G/DL 12/15/2022 9:16 PM CDT [facility] HCT 21.7(L) 37.0 - 52.0 % 12/15/2022 9:16 PM CDT [facility] MCV 74.3(L) 78.0 - 100.0 FL 12/15/2022 9:16 PM CDT [facility] MCH 25.0(L) 27.0 - 31.0 PG 12/15/2022 9:16 PM CDT [facility] MCHC 33.6 33.0 - 36.0 G/DL 12/15/2022 9:16 PM CDT [facility] RDW 14.5 11.5 - 14.5 % 12/15/2022 9:16 PM CDT [facility] PLT 54(L) 150 - 350 x10'3/uL 12/15/2022 9:28 PM CDT [facility] MPV 10.9(H) 7.4 - 10.4 FL 12/15/2022 9:28 PM CDT [facility] 12/15/2022 7:22 PM CDT Natividad Massey MD LABORATORY Sara l Result Performing Organization Address [facility] Co de Phone Number [facility] [address] [place] [address], [phone] * (ABNORMAL) HEMOGLOBIN AND HEMATOCRIT (12/15/2022 7:22 PM CDT) [facility] Signature HGB 7.3(L) 13.0 - 18.0 G/DL 12/15/2022 7:41 PM CDT [facility] HCT 21.7(L) 37.0 - 52.0 % 12/15/2022 7:41 PM CDT [facility] 12/15/2022 7:22 PM CDT Lon Gauthier MD LABORATORY Final Resu lt Performing Organization Address [facility] Co de Phone Number [facility] [address] [place] [address], [place] [phone] * ECG 12 lead (12/15/2022 7:13 PM CDT) 12/15/2022 7:13 PM CDT Narrative [facility] - 12/15/2022 8:23 PM CDT ? [facility] ?[address], [place] ??[address] ? Test Date: ?2022-12-15 Pat Name: ? CRYSTAL LELE ? Department: ?? 1 ? Room: ? [id number] Gender: ? Male ? 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 Ed : ?1990 ? Requested By: ESTEPHANIE DURAN Order Number: [id number] ? Reading MD: ?? Aliyah Vazquez ? Measurements Intervals ?[place] ? Rate: ? 88 ? P: ?60 OR: ? 135 ?QRS: ?65 QRSD: ? 122 ?T: ?47 QT: ? 382 ? QTc: ?464 ? Interpretive Statements SINUS RHYTHM MODERATE INTRAVENTRICULAR CONDUCTION DELAY NONSPECIFIC ST & T-WAVE ABNORMALITY Procedure Note Aliyah Vazquez MD - 12/15/2022 [facility] [address] [place] [address] Test Date: 2022-12-15 Pat Name: CRYSTAL CAPONE Department: 1 Room: [place] [address] 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1990 Requested By: ESTEPHANIE DURAN Order Number: [id number] Reading MD: Aliyah Vazquez Measurements Intervals [place] Rate: 88 P: 60 OR: 135 QRS: 65 QRSD: 122 T: 47 QT: 382 QTc: 464 Interpretive Statements SINUS RHYTHM MODERATE INTRAVENTRICULAR CONDUCTION DELAY NONSPECIFIC ST & T-WAVE ABNORMALITY us Estephanie Duran MD ECG ORDERABLES Final Result [facility] * ECG 12 lead (12/15/2022 7:13 PM CDT) 12/15/2022 7:13 PM CDT Narrative [facility] - 12/15/2022 8:22 PM CDT ? [facility] ?[address], [place] ??[address] ? Test Date: ?2022-12-15 Pat Name: ? CRYSTAL LELE ? Department: ?? 1 ? Room: ? [id number] Gender: ? Male ? 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 Ed : ?1990 ? Requested By: ESTEPHANIE DURAN Order Number: [id number] ? Reading MD: ?? Aliyah Vazquez ? Measurements Intervals ?[place] ? Rate: ? 89 ? P: ?63 OR: ? 135 ?QRS: ?63 QRSD: ? 124 ?T: ?44 QT: ? 365 ? QTc: ?444 ? 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9 mmol/L 12/15/2022 7:15 PM CDT [facility] CA IONIZED WH BLOOD 1.18 1.12 - 1.32 mmol/L 12/15/2022 7:15 PM CDT [facility] POC PH ARTERIAL 7.402 7.35 - 7.45 12/15/2022 7:15 PM CDT [facility] POC PCO2 ARTERIAL 34.0(L) 35.0 - 45.0 MMHG 12/15/2022 7:15 PM CDT [facility] POC PO2 ARTERIAL 123(H) 80 - 105 MMHG 12/15/2022 7:15 PM CDT [facility] POC HCO3 ARTERIAL 21.2(L) 22 - 26 MMOL/L 12/15/2022 7:15 PM CDT [facility] POC TCO2 ARTERIAL 22(L) 23 - 27 MMOL/L 12/15/2022 7:15 PM CDT [facility] POC BASE DEFICIT ARTERIAL 4(H) 0 - 2 MMOL/L 12/15/2022 7:15 PM CDT [facility] POC HEMATOCRIT 25(L) 38 - 51 % 12/15/2022 7:15 PM CDT [facility] TIME TEST WAS PERFORMED: 190912/15/2022 7:15 PM CDT [facility] 12/15/2022 7:10 PM CDT us Estephanie Duran MD POCT ORDERABLES - DEVICE Final R esult [facility] [address] [place] [address], [phone] * (ABNORMAL) CARDIAC PROFILE (CK,CKMB,TROP) (12/15/2022 7:06 PM CDT) CPK 476(H) 39 - 308 U/L 12/15/2022 7:44 PM CDT [facility] CK-MB 87.3(H) 0.5 - 3.6 NG/ML 12/15/2022 7:44 PM CDT [facility] TROPONIN I HIGH SENSITIVITY 14,478(H) 0 - 78 ng/L 12/15/2022 7:44 PM CDT [facility] 12/15/2022 7:06 PM CDT Estephanie Duran MD LABORATORY Final Result [facility] [address] [place] [address], [phone] * (ABNORMAL) BASIC METABOLIC PANEL (12/15/2022 7:06 PM CDT) SODIUM S/P/B 136 136 - 145 MMOL/L 12/15/2022 7:44 PM CDT [facility] POTASSIUM S/P/B 3.4(L) 3.5 - 5.1 MMOL/L 12/15/2022 7:44 PM CDT [facility] CHLORIDE S/P/B 104 98 - 107 MMOL/L 12/15/2022 7:44 PM CDT [facility] CO2 22.3 21.0 - 32.0 MMOL/L 12/15/2022 7:44 PM CDT [facility] GLUCOSE 224(H) 74 - 106 MG/DL 12/15/2022 7:44 PM CDT [facility] BUN 26(H) 7 - 18 MG/DL 12/15/2022 7:44 PM CDT [facility] CREATININE S/P/B 1.47(H) 0.70 - 1.30 MG/DL 12/15/2022 7:44 PM CDT [facility] CALCIUM S/P/B 8.5 8.5 - 10.1 MG/DL 12/15/2022 7:44 PM CDT [facility] ANION GAP 9.7 5.0 - 15.0 MMOL/L 12/15/2022 7:44 PM CDT [facility] OSMOLALITY (CALC) 294 MOSM/KG 023 7:44 PM CDT [facility] Comment:REFERENCE RANGE NOT ESTABLISHED GFR ESTIMATE 64(L) >90 ML/MIN/1. 73 M2 12/15/2022 7:44 PM CDT [facility] GFR NOTES GFR REFERENCE S: 12/15/2022 7:44 PM CDT [facility] Comment: THE ESTIMATED GFR IS [...] ml/min/1.73 m2 G5,KIDNEY FAILURE: <15 ml/min/1.73 m2 12/15/2022 7:06 PM CDT us Estephanie Duran MD LABORATORY Final Result [facility] [address] [place] [address], [phone] * XR CHEST PORTABLE (12/15/2022 7:05 PM CDT) Anatomical Region Laterality Modality Chest Radiographic Nunu ging 12/15/2022 7:23 PM CDT Impressions 12/15/2022 7:25 PM CDT IMPRESSION: Interval removal of the ET tube since the prior study. Otherwise, no significant interval change. Ordered By: ESTEPHANIE DURAN Interpreted By: Bean Cisneros MD, 12/15/2022 7:23 PM Narrative 12/15/2022 7:25 PM CDT Examination: XR CHEST PORTABLE Exam time: 12/15/2022 7:00 PM Clinical history: Chest pain. Comparison: Radiographs December 14, 2022. Technique: Upright AP image of the chest. Findings: A right-sided chest port appears to terminate at the cavoatrial junction. The heart is enlarged. There is been interval removal of the ET tube since the prior study. Consolidative opacities within the right upper lobe appear unchanged. The left lung appears clear. No pleural effusion or pneumothorax noted. Procedure Note Bean Cisneros MD - 12/15/2022 Examination: XR CHEST PORTABLE Exam time: 12/15/2022 7:00 PM Clinical history: Chest pain. Comparison: Radiographs December 14, 2022. Technique: Upright AP image of the chest. Findings: A right-sided chest port appears to terminate at the cavoatrial junction.The heart is enlarged. There is been interval removal of the ET tube sincethe prior study. Consolidative opacities within the right upper lobeappear unchanged. The left lung appears clear. No pleural effusion orpneumothorax noted. IMPRESSION: Interval removal of the ET tube since the prior study. Otherwise, nosignificant interval change. Ordered By: ESTEPHANIE DURAN Interpreted By: Bean Cisneros MD, 12/15/2022 7:23 PM Estephanie Duran MD GENERAL IMAGING Final Result * (ABNORMAL) POCT glucose (12/15/2022 4:27 PM CDT) GLUCOSE POC 294(H) 70 - 109 12/15/2022 4:44 PM CDT [facility] 12/15/2022 4:27 PM CDT Estephanie Duran MD POCT ORDERABLES - DEVICE Final R esult [facility] [address] [place] [address], [id number] * CTA CHEST+CT ABD+PEL W CON (12/15/2022 3:01 PM CDT) Anatomical Region Laterality Modality Abdomen, Chest Computed Tomogra phy 12/15/2022 3:20 PM CDT Impressions 12/15/2022 3:43 PM CDT Impression: 1. ??No pulmonary embolism is identified. 2. ??The SVC is patent and appears normal in caliber. 3. ??Extensive consolidative opacities within the right upper lobe consistent with pneumonia. 4. ??Trace right pleural effusion with atelectasis. 5. ??Cardiomegaly. 6. ??Hepatomegaly. Periportal edema is noted, nonspecific but possibly related to fluid volume status although hepatitis and ascending biliary infection, among other causes, cannot be excluded. 7. ??Diffuse gallbladder wall thickening, nonspecific. No hyperdense gallstones are identified. This could be secondary to fluid volume status but is nonspecific. Could further correlate with gallbladder ultrasound if clinically favored. 8. ??Significant interval decrease in size of the retroperitoneal and iliac chain lymph nodes since the prior study. No new lymphadenopathy is seen within the abdomen or pelvis. 9. ??Worsening osseous metastasis. Ordered By: ESTEPHANIE DURAN Interpreted By: Bean Cisneros MD, 12/15/2022 3:20 PM Narrative 12/15/2022 3:43 PM CDT Examination: CTA CHEST+CT ABD+PEL W CON Clinical Information: Sepsis. Evaluate for SVC occlusion and pulmonary embolism. Comparison:CT 04/14/2022. Technique: IV contrast: 100 mL Isovue 370. Oral contrast: None. Technical comments: CTA of the chest was obtained according to the pulmonary embolism protocol. Coronal MIP images were submitted for evaluation. Next, contrast enhanced CT images of the abdomen and pelvis were obtained. Dose reduction: This CT exam was performed using one or more of the following dose reduction techniques: Automated exposure control, adjustment of the mA and/or kV according to patient size, and/or use of iterative reconstruction technique. Findings: VASCULATURE The pulmonary arteries are well-opacified and no intraluminal filling defect is identified. The thoracic aorta is unenhanced but appears normal in caliber. The SVC is patent and appears normal in caliber. MEDIASTINUM Support tubes and lines: A right-sided chest port is in place and terminates at the right atrium. Base of neck/thyroid: Negative. Heart: Moderate cardiomegaly. No evidence of right heart strain. Lymph nodes: On the prominent mediastinal lymph nodes are identified, favored reactive. LUNGS AND PLEURA Trace right pleural effusion with atelectasis. Extensive consolidative opacities within the right upper lobe consistent with pneumonia. UPPER ABDOMEN Liver and bile ducts: The liver is enlarged measuring 22.5 cm. No distinct focal liver mass is identified. There is diffuse periportal edema. Portal veins appear patent. No biliary dilatation. Gallbladder: Diffuse gallbladder wall thickening. No hyperdense gallstones are identified. No biliary obstruction noted. Pancreas: Normal. Spleen: Normal. RETROPERITONEUM Adrenals: Normal. Kidneys: Unremarkable. Lymph nodes: The enlarged retroperitoneal and iliac chain lymph nodes seen on the comparison study from April 2022 have significantly decreased in size and are now within normal limits. No new lymphadenopathy is seen within the abdomen or pelvis. BOWEL AND PERITONEUM Bowel: No evidence of bowel obstruction or acute inflammatory process. Free air or fluid: Small volume free fluid is seen within the pelvis. VASCULATURE The abdominal aorta is normal in caliber. PELVIS A Rojas catheter is noted within the urinary bladder. BONES/SOFT TISSUES Abnormal appearance of the T7, L3 and L4 vertebral bodies, worsened from prior. Multifocal lytic lesions are identified involving other vertebral bodies as well as the bones of the pelvis, more prominent than seen previously. Findings are again most suggestive of osseous metastasis, with interval worsening. Procedure Note Bean Cisneros MD - 12/15/2022 Examination: CTA CHEST+CT ABD+PEL W CON Clinical Information: Sepsis. Evaluate for SVC occlusion and pulmonaryembolism. Comparison:CT 04/14/2022. Technique: IV contrast: 100 mL Isovue 370. Oral contrast: None. Technical comments: CTA of the chest was obtained according to thepulmonary embolism protocol. Coronal MIP images were submitted forevaluation. Next, contrast enhanced CT images of the abdomen and pelviswere obtained. Dose reduction: This CT exam was performed using one or more of thefollowing dose reduction techniques: Automated exposure control,adjustment of the mA and/or kV according to patient size, and/or use ofiterative reconstruction technique. Findings: VASCULATURE The pulmonary arteries are well-opacified and no intraluminal fillingdefect is identified. The thoracic aorta is unenhanced but appears normal in caliber. The SVC ispatent and appears normal in caliber. MEDIASTINUM Support tubes and lines: A right-sided chest port is in place andterminates at the right atrium. Base of neck/thyroid: Negative. Heart: Moderate cardiomegaly. No evidence of right heart strain. Lymph nodes: On the prominent mediastinal lymph nodes are identified,favored reactive. LUNGS AND PLEURA Trace right pleural effusion with atelectasis. Extensive consolidativeopacities within the right upper lobe consistent with pneumonia. UPPER ABDOMEN Liver and bile ducts: The liver is enlarged measuring 22.5 cm. No distinctfocal liver mass is identified. There is diffuse periportal edema. Portalveins appear patent. No biliary dilatation. Gallbladder: Diffuse gallbladder wall thickening. No hyperdense gallstonesare identified. No biliary obstruction noted. Pancreas: Normal. Spleen: Normal. RETROPERITONEUM Adrenals: Normal. Kidneys: Unremarkable. Lymph nodes: The enlarged retroperitoneal and iliac chain lymph nodes seenon the comparison study from April 2022 have significantly decreased insize and are now within normal limits. No new lymphadenopathy is seenwithin the abdomen or pelvis. BOWEL AND PERITONEUM Bowel: No evidence of bowel obstruction or acute inflammatory process. Free air or fluid: Small volume free fluid is seen within the pelvis. VASCULATURE The abdominal aorta is normal in caliber. PELVIS A Rojas catheter is noted within the urinary bladder. BONES/SOFT TISSUES Abnormal appearance of the T7, L3 and L4 vertebral bodies, worsened fromprior. Multifocal lytic lesions are identified involving other vertebralbodies as well as the bones of the pelvis, more prominent than seenpreviously. Findings are again most suggestive of osseous metastasis, withinterval worsening. Impression: 1. No pulmonary embolism is identified. 2. The SVC is patent and appears normal in caliber. 3. Extensive consolidative opacities within the right upper lobeconsistent with pneumonia. 4. Trace right pleural effusion with atelectasis. 5. Cardiomegaly. 6. Hepatomegaly. Periportal edema is noted, nonspecific but possiblyrelated to fluid volume status although hepatitis and ascending biliaryinfection, among other causes, cannot be excluded. 7. Diffuse gallbladder wall thickening, nonspecific. No hyperdensegallstones are identified. This could be secondary to fluid volume statusbut is nonspecific. Could further correlate with gallbladder ultrasound ifclinically favored. 8. Significant interval decrease in size of the retroperitoneal and iliacchain lymph nodes since the prior study. No new lymphadenopathy is seenwithin the abdomen or pelvis. 9. Worsening osseous metastasis. Ordered By: ESTEPHANIE DURAN Interpreted By: Bean Cisneros MD, 12/15/2022 3:20 PM us Estephanie Duran MD CT Final Result * CT HEAD WO CON (12/15/2022 3:01 PM CDT) Anatomical Region Laterality Modality Head Computed Tomogra phy 12/15/2022 3:16 PM CDT Impressions 12/15/2022 3:18 PM CDT IMPRESSION: No CT evidence of an acute intracranial abnormality. Ordered By: ESTEPHANIE DURAN Interpreted By: Jewel Shaver MD, 12/15/2022 3:16 PM Narrative 12/15/2022 3:18 PM CDT Examination: CT HEAD WO CON, 12/15/2022 3:16 PM. Technique: Computed tomographic images of the head were obtained without intravenous contrast. Additional coronal and sagittal reformatted images were generated at a separate workstation. A dose lowering technique was used for this procedure, which may include, but is not limited to, dose reduction technique, automated exposure control, the use of iterative reconstruction, and ALARA (As Low As Reasonably Achievable) / Image Gently techniques. Clinical history: Persistent encephalopathy Comparison: CT soft tissue neck 10/27/2022 Findings: There is no acute intracranial hemorrhage. There is no extra-axial fluid collection. Preserved villagomez-white matter differentiation. The ventricles are normal in size. The basal cisterns appear normal. Orbital contents appear normal. Paranasal sinuses and mastoid air cells are well aerated. There is no acute fracture nor destructive process of the visualized osseous structures. Procedure Note Jewel Shaver MD - 12/15/2022 Examination: CT HEAD WO CON, 12/15/2022 3:16 PM. Technique: Computed tomographic images of the head were obtained withoutintravenous contrast. Additional coronal and sagittal reformatted imageswere generated at a separate workstation. A dose lowering technique wasused for this procedure, which may include, but is not limited to, dosereduction technique, automated exposure control, the use of iterativereconstruction, and ALARA (As Low As Reasonably Achievable) / Image Gentlytechniques. Clinical history: Persistent encephalopathy Comparison: CT soft tissue neck 10/27/2022 Findings: There is no acute intracranial hemorrhage. There is no extra-axial fluidcollection. Preserved villagomez-white matter differentiation. The ventriclesare normal in size. The basal cisterns appear normal. Orbital contentsappear normal. Paranasal sinuses and mastoid air cells are well aerated.There is no acute fracture nor destructive process of the visualizedosseous structures. IMPRESSION: No CT evidence of an acute intracranial abnormality. Ordered By: ESTEPHANIE DURAN Interpreted By: Jewel Shaver MD, 12/15/2022 3:16 PM us Estephanie Duran MD CT Final Result * CULTURE RESPIRATORY W/ GRAM STAIN (12/15/2022 11:49 AM CDT) SPEC DESCRIPTION SPUTUM, INDUCED 12/15/2022 11:49 AM CDT [facility] SPECIAL REQUESTS NO SPECIAL REQUEST 12/15/2022 11:49 AM CDT [facility] GRAM STAIN RESULT 10-25 NEUTROPHILS PER LPF 12/15/2022 3:16 PM CDT [facility] GRAM STAIN RESULT <10 EPITHELIAL CELLS PER LPF 12/15/2022 3:16 PM CDT [facility] GRAM STAIN RESULT NO ORGANISMS SEEN 12/15/2022 3:16 PM CDT [facility] CULTURE RESULT FEW ALPHA STREPTOCOCCUS 12/17/2022 12:19 PM CDT [facility] CULTURE RESULT FEW PRESUMPTIVE OPAL ALBICANS 12/17/2022 12:19 PM CDT [facility] SPUTUM SPECIMEN OBTAINED BY SPUTUM INDUCTION / Unknown 12/15/2022 11:49 AM CDT 12/15/2022 12:52 PM CDT Lon Gauthier MD MICROBIOLOGY - GENERAL ORD ERABLES Final Result [facility] [address] [place] [address], [place] [phone] * (ABNORMAL) POCT glucose (12/15/2022 11:17 AM CDT) [facility] GLUCOSE POC 135(H) 70 - 109 12/15/2022 11:48 AM CDT [facility] 12/15/2022 11:1 7 AM CDT Estephanie Duran MD POCT ORDERABLES - DEVICE Final R esult [facility] [address] [place] [address], [phone] * BIOFIRE PCR UPPER RESPIRATORY PROFILE (RESPIRATORY PCR PANEL 2) (12/15/2022 11:11 AM CDT) [facility] ADENOVIRUS PCR (RESP) NOT DETECTED NOT DETECTED 12/15/2022 1:07 PM CDT [facility] CORONAVIRUS 229E PCR (RESP) NOT DETECTED NOT DETECTED 12/15/2022 1:07 PM CDT [facility] CORONAVIRUS HKU1 PCR (RESP) NOT DETECTED NOT DETECTED 12/15/2022 1:07 PM CDT [facility] CORONAVIRUS NL63 PCR (RESP) NOT DETECTED NOT DETECTED 12/15/2022 1:07 PM CDT [facility] CORONAVIRUS OC43 PCR (RESP) NOT DETECTED NOT DETECTED 12/15/2022 1:07 PM CDT [facility] METAPNEUMOVIRUS PCR (RESP) NOT DETECTED NOT DETECTED 12/15/2022 1:07 PM CDT [facility] RHINOVIRUS/ENTEROV IRUS PCR (RESP) NOT DETECTED NOT DETECTED 12/15/2022 1:07 PM CDT [facility] INFLUENZA A PCR (RESP) NOT DETECTED NOT DETECTED 12/15/2022 1:07 PM CDT [facility] INFLUENZA B PCR (RESP) NOT DETECTED NOT DETECTED 12/15/2022 1:07 PM CDT [facility] PARAINFLUENZA 1 PCR (RESP) NOT DETECTED NOT DETECTED 12/15/2022 1:07 PM CDT [facility] PARAINFLUENZA 2 PCR (RESP) NOT DETECTED NOT DETECTED 12/15/2022 1:07 PM CDT [facility] PARAINFLUENZA 3 PCR (RESP) NOT DETECTED NOT DETECTED 12/15/2022 1:07 PM CDT [facility] PARAINFLUENZA 4 PCR (RESP) NOT DETECTED NOT DETECTED 12/15/2022 1:07 PM CDT [facility] RSV PCR (RESP) NOT DETECTED NOT DETECTED 12/15/2022 1:07 PM CDT [facility] B PARAPERTUSIS PCR (RESP) NOT DETECTED NOT DETECTED 12/15/2022 1:07 PM CDT [facility] BORDETELLA PERTUSSIS PCR (RESP) NOT DETECTED NOT DETECTED 12/15/2022 1:07 PM CDT [facility] CHLAMYDOPHILA PNEUMONIAE PCR (RESP) NOT DETECTED NOT DETECTED 12/15/2022 1:07 PM CDT [facility] MYCOPLASMA PNEUMONIAE PCR (RESP) NOT DETECTED NOT DETECTED 12/15/2022 1:07 PM CDT [facility] CORONAVIRUS SARS COV 2 PCR (RESP) NOT DETECTED NOT DETECTED 12/15/2022 1:07 PM CDT [facility] NASOPHARYNGEAL SWAB / Unknown 12/15/2022 11:11 AM CDT us Estephanie Duran MD MICROBIOLOGY - GENERAL ORDERABLE S Final Result [facility] [address] [place] [address], [phone] * (ABNORMAL) POCT ACUTE ARTERIAL PANEL (12/15/2022 10:58 AM CDT) SODIUM WHOLE BLOOD 136(L) 138 - 146 mmol/L 12/15/2022 11:02 AM CDT [facility] POTASSIUM WHOLE BLOOD 3.6 3.5 - 4.9 mmol/L 12/15/2022 11:02 AM CDT [facility] CA IONIZED WH BLOOD 1.14 1.12 - 1.32 mmol/L 12/15/2022 11:02 AM CDT [facility] POC PH ARTERIAL 7.419 7.35 - 7.45 12/15/2022 11:02 AM CDT [facility] POC PCO2 ARTERIAL 41.5 35.0 - 45.0 MMHG 12/15/2022 11:02 AM CDT [facility] POC PO2 ARTERIAL 197(H) 80 - 105 MMHG 12/15/2022 11:02 AM CDT [facility] POC HCO3 ARTERIAL 26.9(H) 22 - 26 MMOL/L 12/15/2022 11:02 AM CDT [facility] POC TCO2 ARTERIAL 28(H) 23 - 27 MMOL/L 12/15/2022 11:02 AM CDT [facility] POC BASE EXCESS ARTERIAL 2 0 - 3 MMOL/L 12/15/2022 11:02 AM CDT [facility] POC HEMATOCRIT 24(L) 38 - 51 % 12/15/2022 11:02 AM CDT [facility] TIME TEST WAS PERFORMED: 1058 12/15/2022 11:02 AM CDT [facility] 12/15/2022 10:5 8 AM CDT us Estephanie Duran MD POCT ORDERABLES - DEVICE Final R esult [facility] [address] [place] [address], [phone] * (ABNORMAL) RENAL FUNCTION PANEL (12/15/2022 8:52 AM CDT) SODIUM S/P/B 136 136 - 145 MMOL/L 12/15/2022 9:37 AM CDT [facility] POTASSIUM S/P/B 3.3(L) 3.5 - 5.1 MMOL/L 12/15/2022 9:37 AM CDT [facility] CHLORIDE S/P/B 101 98 - 107 MMOL/L 12/15/2022 9:37 AM CDT [facility] CO2 26.2 21.0 - 32.0 MMOL/L 12/15/2022 9:37 AM CDT [facility] GLUCOSE 212(H) 74 - 106 MG/DL 12/15/2022 9:37 AM T [facility] BUN 23(H) 7 - 18 MG/DL 12/15/2022 9:37 AM T [facility] CREATININE S/P/B 1.61(H) 0.70 - 1.30 MG/DL 12/15/2022 9:37 AM T [facility] CALCIUM S/P/B 7.9(L) 8.5 - 10.1 MG/DL 12/15/2022 9:37 AM CDT [facility] ALBUMIN S/P/B 3.4 3.4 - 5.0 G/DL 12/15/2022 9:37 AM T [facility] PHOSPHORUS 3.9 2.5 - 4.9 MG/DL 12/15/2022 9:37 AM T [facility] ANION GAP 8.8 5.0 - 15.0 MMOL/L 12/15/2022 9:37 AM T [facility] OSMOLALITY (CALC) 292 MOSM/KG 023 9:37 AM T [facility] Comment:REFERENCE RANGE NOT ESTABLISHED GFR ESTIMATE 58(L) >90 ML/MIN/1. 73 M2 12/15/2022 9:37 AM CDT [facility] GFR NOTES GFR REFERENCE S: 12/15/2022 9:37 AM CDT [facility] Comment: THE ESTIMATED GFR IS [...] ml/min/1.73 m2 G5,KIDNEY FAILURE: <15 ml/min/1.73 m2 12/15/2022 8:52 AM CDT us Lon Gauthier MD LABORATORY Final Resu lt Performing Organization Address [facility] Co de Phone Number [facility] [address] [place] [address], [phone] * (ABNORMAL) LACTIC ACID - SINGLE (12/15/2022 8:52 AM CDT) LACTIC ACID VENOUS 2.4(H) 0.4 - 2.0 MMOL/L 12/15/2022 9:26 AM CDT [facility] Comment: AN ORDER FOR A REPEAT LACTIC ACID TEST IS REQUIRED WITHIN 6 HOURS OF DIAGNOSIS ON A PATIENT WITH SEVERE SEPSIS. 12/15/2022 8:52 AM CDT us Lon Gauthier MD LABORATORY Final Resu lt Performing Organization Address [facility] Co de Phone Number [facility] [address] [place] [address], [phone] * (ABNORMAL) LACTIC ACID - SINGLE (12/15/2022 6:55 AM CDT) LACTIC ACID VENOUS 2.1(H) 0.4 - 2.0 MMOL/L 12/15/2022 7:26 AM CDT [facility] Comment: AN ORDER FOR A REPEAT LACTIC ACID TEST IS REQUIRED WITHIN 6 HOURS OF DIAGNOSIS ON A PATIENT WITH SEVERE SEPSIS. 12/15/2022 6:55 AM CDT Lon Gauthier MD LABORATORY Final Resu lt [facility] [address] [place] [address], [phone] * (ABNORMAL) CBC W/DIFF AUTOMATED (12/15/2022 5:05 AM CDT) WBC 0.29(L) 4.00 - 10.80 x10'3/uL 12/15/2022 5:56 AM CDT [facility] RBC 2.82(L) 4.50 - 6.10 x10'6/uL 12/15/2022 5:56 AM CDT [facility] HGB 7.3(L) 13.0 - 18.0 G/DL 12/15/2022 5:56 AM CDT [facility] HCT 21.8(L) 37.0 - 52.0 % 12/15/2022 5:56 AM CDT [facility] MCV 77.3(L) 78.0 - 100.0 FL 12/15/2022 5:56 AM CDT [facility] MCH 25.9(L) 27.0 - 31.0 PG 12/15/2022 5:56 AM CDT [facility] MCHC 33.5 33.0 - 36.0 G/DL 12/15/2022 5:56 AM CDT [facility] RDW 14.4 11.5 - 14.5 % 12/15/2022 5:56 AM CDT [facility] PLT 52(L) 150 - 350 x10'3/uL 12/15/2022 5:56 AM CDT [facility] MPV 10.8(H) 7.4 - 10.4 FL 12/15/2022 5:56 AM CDT [facility] ABS. NEUTROPHILS 0.10(LL) 1.60 - 8.30 x10'3/uL 12/15/2022 7:24 AM CDT [facility] Comment: THIS PATIENT HAS HAD A CRITICAL VALUE RESULT FOR THIS TEST CALLED WITHIN THE PAST 3 MONTHS. ABS. NEUTROPHILS CALCULATED 0.02(L) 1.60 - 7.30 x10'3/uL 12/15/2022 7:24 AM CDT [facility] BANDS 0.08 0.00 - 1.00 x10'3/uL 12/15/2022 7:24 AM CDT [facility] ABS. LYMPHOCYTES 0.03(L) 0.80 - 4.70 x10'3/uL 12/15/2022 7:24 AM CDT [facility] ABS. MONOCYTES 0.11 0.00 - 1.50 x10'3/uL 12/15/2022 7:24 AM CDT [facility] ABS. EOSINOPHILS 0.03 0.00 - 0.40 x10'3/uL 12/15/2022 7:24 AM CDT [facility] ABS. BASOPHILS 0.01 0.00 - 0.20 x10'3/uL 12/15/2022 7:24 AM CDT [facility] ABS. NUCLEATED RBC'S 0.00 0.0 x10'3/uL 12/15/2022 7:24 AM T [facility] CELLS COUNTED 36 No COUNTED 12/15/2022 7:24 AM T [facility] RBC MORPHOLOGY ANISOCYTOSIS 12/16/19 7:24 AM T [facility] Comment: SLIGHT MICROCYTOSIS SLIGHT POIKILOCYTOSIS SLIGHT OVALOCYTES ACANTHOCYTES WBC MORPHOLOGY TOXIC GRANULATION 12/15/2022 7:24 AM CDT [facility] Comment: DOHLE BODIES PRESENT REACTIVE LYMPHS PLT MORPH. LOW 12/15/2022 7:24 AM CDT [facility] 12/15/2022 5:05 AM CDT Estephanie Duran MD LABORATORY Final Result Performing Organization Address [facility] Co de Phone Number [facility] [address] [place] [address], [phone] * (ABNORMAL) LACTIC ACID - SINGLE (12/15/2022 5:05 AM CDT) LACTIC ACID VENOUS 3.0(H) 0.4 - 2.0 MMOL/L 12/15/2022 5:57 AM CDT [facility] Comment: AN ORDER FOR A REPEAT LACTIC ACID TEST IS REQUIRED WITHIN 6 HOURS OF DIAGNOSIS ON A PATIENT WITH SEVERE SEPSIS. 12/15/2022 5:05 AM CDT Lon Gauthier MD LABORATORY Final Resu lt Performing Organization Address [facility] Co de Phone Number [facility] [address] [place] [address], [phone] * (ABNORMAL) TROPONIN, QUANT (12/15/2022 5:05 AM CDT) TROPONIN I HIGH SENSITIVITY 615(H) 0 - 78 ng/L 12/15/2022 6:01 AM CDT [facility] 12/15/2022 5:05 AM CDT oLn Gauthier MD LABORATORY Final Resu lt Performing Organization Address [facility] Co de Phone Number [facility] [address] [place] [address], [phone] * (ABNORMAL) CALCIUM, IONIZED (12/15/2022 5:05 AM CDT) CALCIUM IONIZED 1.04(L) 1.15 - 1.33 MMOL/L 12/15/2022 5:25 AM CDT [facility] 12/15/2022 5:05 AM CDT us Estephanie Duran MD LABORATORY Final Result Performing Organization Address [facility]/ZIP Co de Phone Number [facility] [address] [place] [address], [phone] * PHOSPHORUS, INORGANIC PHOSPHATE (12/15/2022 5:05 AM CDT) PHOSPHORUS 4.3 2.5 - 4.9 MG/DL 12/15/2022 6:01 AM CDT [facility] 12/15/2022 5:05 AM CDT us Estephanie Duran MD LABORATORY Final Result Performing Organization Address [facility] Co de Phone Number [facility] [address] [place] [address], [phone] * MAGNESIUM (12/15/2022 5:05 AM CDT) MAGNESIUM 2.3 1.6 - 2.6 MG/DL 12/15/2022 6:01 AM CDT [facility] 12/15/2022 5:05 AM CDT us Estephanie Duran MD LABORATORY Final Result Performing Organization Address City/[facility] Co de Phone Number [facility] [address] [place] [address], [phone] * (ABNORMAL) COMPREHENSIVE METABOLIC PANEL (12/15/2022 5:05 AM CDT) SODIUM S/P/B 136 136 - 145 MMOL/L 12/15/2022 6:[facility] POT[facility]SI[facility] S/P/B 3.2(L) 3.5 - 5.1 MMOL/L 12/15/2022 6:01 AM [facility] CHLORIDE S/P/B 101 98 - 107 MMOL/L 12/15/2022 6:01 AM [facility] CO2 24.8 21.0 - 32.0 MMOL/L 12/15/2022 6:01 AM [facility] GLUCOSE 219(H) 74 - 106 MG/DL 12/15/2022 6:01 AM [facility] BUN 24(H) 7 - 18 MG/DL 12/15/2022 6:01 AM [facility] CREATININE S/P/B 1.72(H) 0.70 - 1.30 MG/DL 12/15/2022 6:01 AM [facility] CALCIUM S/P/B 7.5(L) 8.5 - 10.1 MG/DL 12/15/2022 6:01 AM [facility] BILIRUBIN TOTAL S/P/B 0.9 0.2 - 1.0 MG/DL 12/15/2022 6:01 AM [facility] ALKALINE PHOSPHATASE S/P/B 85 45 - 115 U/L 12/15/2022 6:01 AM [facility] AST 11(L) 15 - 37 U/L 12/15/2022 6:01 AM [facility] ALT 16 16 - 61 U/L 12/15/2022 6:01 AM [facility] TOTAL PROTEIN S/P/B 6.2(L) 6.4 - 8.2 G/DL 12/15/2022 6:01 AM [facility] ALBUMIN S/P/B 3.1(L) 3.4 - 5.0 G/DL 12/15/2022 6:01 AM [facility] ANION GAP 10.2 5.0 - 15.0 MMOL/L 12/15/2022 6:01 AM CDT [facility] OSMOLALITY (CALC) 293 MOSM/KG 023 6:01 AM CDT [facility] Comment:REFERENCE RANGE NOT ESTABLISHED GFR ESTIMATE 53(L) >90 ML/MIN/1. 73 M2 12/15/2022 6:01 AM CDT [facility] GFR NOTES GFR REFERENCE S: 12/15/2022 6:01 AM CDT [facility] Comment: THE ESTIMATED GFR IS [...] ml/min/1.73 m2 G5,KIDNEY FAILURE: <15 ml/min/1.73 m2 12/15/2022 5:05 AM CDT Lon Gauthier MD LABORATORY Final Resu lt [facility] [address] [place] [address], [phone] * (ABNORMAL) HEMOGLOBIN AND HEMATOCRIT (12/15/2022 3:05 AM CDT) HGB 7.1(L) 13.0 - 18.0 G/DL 12/15/2022 3:15 AM CDT [facility] HCT 20.9(L) 37.0 - 52.0 % 12/15/2022 3:15 AM CDT [facility] 12/15/2022 3:05 AM CDT us Lon Gauthier MD LABORATORY Final Resu lt Performing Organization Address [facility] Co de Phone Number [facility] [address] [place] [address], [phone] * (ABNORMAL) LACTIC ACID - SINGLE (12/15/2022 3:05 AM CDT) LACTIC ACID VENOUS 3.9(H) 0.4 - 2.0 MMOL/L 12/15/2022 3:30 AM CDT [facility] Comment: AN ORDER FOR A REPEAT LACTIC ACID TEST IS REQUIRED WITHIN 6 HOURS OF DIAGNOSIS ON A PATIENT WITH SEVERE SEPSIS. 12/15/2022 3:05 AM CDT us Lon Gauthier MD LABORATORY Final Resu lt Performing Organization Address [facility] Co de Phone Number [facility] [address] [place] [address], [place] [phone] * (ABNORMAL) RENAL FUNCTION PANEL (12/15/2022 1:10 AM CDT) SODIUM S/P/B 135(L) 136 - 145 MMOL/L 12/15/2022 3:52 AM CDT [facility] POTASSIUM S/P/B 3.7 3.5 - 5.1 MMOL/L 12/15/2022 3:52 AM CDT [facility] CHLORIDE S/P/B 100 98 - 107 MMOL/L 12/15/2022 3:52 AM CDT [facility] CO2 23.2 21.0 - 32.0 MMOL/L 12/15/2022 3:52 AM CDT [facility] GLUCOSE 216(H) 74 - 106 MG/DL 12/15/2022 3:52 AM CDT [facility] BUN 25(H) 7 - 18 MG/DL 12/15/2022 3:52 AM CDT [facility] CREATININE S/P/B 1.80(H) 0.70 - 1.30 MG/DL 12/15/2022 3:52 AM CDT [facility] CALCIUM S/P/B 7.6(L) 8.5 - 10.1 MG/DL 12/15/2022 3:52 AM CDT [facility] ALBUMIN S/P/B 3.2(L) 3.4 - 5.0 G/DL 12/15/2022 3:52 AM CDT [facility] PHOSPHORUS 5.9(H) 2.5 - 4.9 MG/DL 12/15/2022 3:52 AM CDT [facility] ANION GAP 11.8 5.0 - 15.0 MMOL/L 12/15/2022 3:52 AM CDT [facility] OSMOLALITY (CALC) 291 MOSM/KG 023 3:52 AM T [facility] Comment:REFERENCE RANGE NOT ESTABLISHED GFR ESTIMATE 50(L) >90 ML/MIN/1. 73 M2 12/15/2022 3:52 AM CDT [facility] GFR NOTES GFR REFERENCE S: 12/15/2022 3:52 AM T [facility] Comment: THE ESTIMATED GFR IS [...] ml/min/1.73 m2 G5,KIDNEY FAILURE: <15 ml/min/1.73 m2 12/15/2022 1:10 AM CDT us Lon Gauthier MD LABORATORY Final Resu lt Performing Organization Address [facility]/ZIP Co de Phone Number [facility] [address] [place] [address], [phone] * (ABNORMAL) LACTIC ACID - SINGLE (12/15/2022 1:10 AM CDT) LACTIC ACID VENOUS 2.8(H) 0.4 - 2.0 MMOL/L 12/15/2022 1:52 AM CDT [facility] Comment: AN ORDER FOR A REPEAT LACTIC ACID TEST IS REQUIRED WITHIN 6 HOURS OF DIAGNOSIS ON A PATIENT WITH SEVERE SEPSIS. 12/15/2022 1:10 AM CDT us Lon Gauthier MD LABORATORY Final Resu lt Performing Organization Address [facility] Co de Phone Number [facility] [address] [place] [address], [phone] * (ABNORMAL) TROPONIN, QUANT (12/15/2022 1:10 AM CDT) TROPONIN I HIGH SENSITIVITY 728(H) 0 - 78 ng/L 12/15/2022 3:52 AM CDT [facility] 12/15/2022 1:10 AM CDT us Lon Gauthier MD LABORATORY Final Resu lt Performing Organization Address City/[facility]/ZIP Co de Phone Number [facility] [address] [place] [address], [place] [phone] * (ABNORMAL) TROPONIN, QUANT (12/14/2022 11:10 PM CDT) TROPONIN I HIGH SENSITIVITY 721(H) 0 - 78 ng/L 12/15/2022 12:07 AM CDT [facility] 12/14/2022 11:1 0 PM CDT Estephanie Duran MD LABORATORY Final Result Performing Organization Address [facility] Co de Phone Number [facility] [address] [place] [address], [phone] * (ABNORMAL) LACTIC ACID - SINGLE (12/14/2022 11:10 PM CDT) LACTIC ACID VENOUS 2.9(H) 0.4 - 2.0 MMOL/L 12/14/2022 11:49 PM CDT [facility] Comment: AN ORDER FOR A REPEAT LACTIC ACID TEST IS REQUIRED WITHIN 6 HOURS OF DIAGNOSIS ON A PATIENT WITH SEVERE SEPSIS. 12/14/2022 11:1 0 PM CDT Lon Gauthier MD LABORATORY Final Resu lt Performing Organization Address [facility] Co de Phone Number [facility] [address] [place] [address], [phone] * XR ABD KUB (12/14/2022 9:45 PM CDT) Anatomical Region Laterality Modality Abdomen Radiographic Nunu ging 12/14/2022 10:2 0 PM CDT Impressions 12/14/2022 10:22 PM CDT IMPRESSION: Enteric tube in satisfactory position. Referred By: JAY NARAYANAN Interpreted By: Nicho Braswell MD, 12/14/2022 10:20 PM Narrative 12/14/2022 10:22 PM CDT INDICATION: OG placement COMPARISON: None. TECHNIQUE: Two radiographic images of the abdomen FINDINGS: Enteric tube in subdiaphragmatic position with tip and side port projecting over the expected location of the gastric lumen. Visualized bowel gas pattern within normal limits. No acute osseous abnormality. Limited visualization of the lung bases exhibit no dense consolidation. Procedure Note Nicho Braswell MD - 12/14/2022 INDICATION: OG placement COMPARISON: None. TECHNIQUE: Two radiographic images of the abdomen FINDINGS: Enteric tube in subdiaphragmatic position with tip and side portprojecting over the expected location of the gastric lumen. Visualizedbowel gas pattern within normal limits. No acute osseous abnormality.Limited visualization of the lung bases exhibit no dense consolidation. IMPRESSION: Enteric tube in satisfactory position. Referred By: JAY NARAYANAN Interpreted By: Nicho Braswell MD, 12/14/2022 10:20 PM Florecita Hernandez MD GENERAL IMAGING Final Resul t * (ABNORMAL) LACTIC ACID - SINGLE (12/14/2022 9:15 PM CDT) LACTIC ACID VENOUS 3.3(H) 0.4 - 2.0 MMOL/L 12/14/2022 9:44 PM CDT [facility] Comment: AN ORDER FOR A REPEAT LACTIC ACID TEST IS REQUIRED WITHIN 6 HOURS OF DIAGNOSIS ON A PATIENT WITH SEVERE SEPSIS. 12/14/2022 9:15 PM CDT Lon Gauthier MD LABORATORY Final Resu lt Performing Organization Address [facility] Co de Phone Number [facility] [address] [place] [address], [phone] * (ABNORMAL) POCT glucose (12/14/2022 8:53 PM CDT) GLUCOSE POC 197(H) 70 - 109 12/14/2022 9:08 PM CDT [facility] 12/14/2022 8:53 PM CDT Estephanie Duran MD POCT ORDERABLES - DEVICE Final R esult Performing Organization Address [facility] Co de Phone Number [facility] [address] [place] [address], [place] [phone] * CLOSTRIDIUM DIFFICILE (12/14/2022 7:30 PM CDT) GDH ANTIGEN NEGATIVE NEGATIVE 12/14/2022 9:22 PM CDT [facility] C DIFFICILE TOXIN A&B (STOOL) NEGATIVE NEGATIVE 12/14/2022 9:22 PM CDT [facility] COMMENT GDH NEGATIVE/TOXI N A & B NEGATIVE: NEGATIVE FOR TOXIGENIC C. DIFFICILE. GDH NEGATIVE/TOXI N A & B NEGATIVE: NEGATIVE FOR TOXIGENIC C. 12/14/2022 9:22 PM CDT [facility] STOOL SPECIMEN / Unknown 12/14/2022 7:30 PM CDT us Lon Gauthier MD BODY FLUIDS AND STOOLS ORD ERABLES Final Result Performing Organization Address City/[facility]/ZIP Co de Phone Number [facility] [address] [place] [address], [phone] * CULTURE URINE (12/14/2022 7:28 PM CDT) Pathologist [facility] SPEC DESCRIPTION URINE VOIDED 12/14/2022 7:04 PM CDT [facility] SPECIAL REQUESTS NO SPECIAL REQUEST 12/14/2022 7:04 PM CDT [facility] CULTURE RESULT NO GROWTH (< OR = 1,000 CFU/ML) 12/16/2022 9:50 AM CDT [facility] URINE SPECIMEN FROM [facility]RE[facility] / Unknown 12/14/2022 7:28 PM CDT 12/14/2022 7:38 PM CDT us Lon Gauthier MD MICROBIOLOGY - GENERAL ORD ERABLES Final Result Performing Organization Address [facility]/ZIP Co de Phone Number [facility] [address] [place] [address], [phone] * CULTURE, BACTERIA, BLOOD (12/14/2022 7:00 PM CDT) SPEC DESCRIPTION BLOOD 12/14/2022 5:19 PM CDT [facility] SPECIAL REQUESTS NO SPECIAL REQUEST 12/14/2022 5:19 PM CDT [facility] CULTURE RESULT NO GROWTH 5 DAYS 12/19/2022 10:46 PM CDT [facility] BLOOD SPECIMEN OBTAINED FOR BLOOD CULTURE / Unknown 12/14/2022 7:00 PM CDT 12/14/2022 7:33 PM CDT us Lon Gauthier MD MICROBIOLOGY - GENERAL ORD ERABLES Final Result [facility] [address] [place] [address], [id number] * (ABNORMAL) URINALYSIS (12/14/2022 7:00 PM CDT) COLOR (U) COLORLESS 12/14/2022 8:03 PM CDT [facility] TRANSPARENCY CLEAR 12/14/2022 8:03 PM CDT [facility] SPECIFIC GRAVITY (U) 1.008 1.002 - 1.035 12/14/2022 8:03 PM CDT [facility] U PH 5.0 5 - 8 12/14/2022 8:03 PM CDT [facility] PROTEIN (U) 30(A) NEGATIVE 12/14/2022 8:03 PM CDT [facility] URINE GLUCOSE NEGATIVE NEGATIVE MG/DL 12/14/2022 8:03 PM CDT [facility] KETONES MG/DL (U) NEGATIVE NEGATIVE 12/14/2022 8:03 PM CDT [facility] BILIRUBIN (U) NEGATIVE NEGATIVE 12/14/2022 8:03 PM CDT [facility] BLOOD (U) 2+(A) NEGATIVE 12/14/2022 8:03 PM CDT [facility] NITRITES NEGATIVE NEGATIVE 12/14/2022 8:03 PM CDT [facility] UROBILINOGEN NORMAL 0 - 1 EU/DL 12/14/2022 8:03 PM CDT [facility] LEUKOCYTES (U) NEGATIVE NEGATIVE 12/14/2022 8:03 PM CDT [facility] RBC/HPF 51(H) 0 - 3 /HPF 12/14/2022 8:03 PM CDT [facility] WBC/HPF 2 0 - 6 /HPF 12/14/2022 8:03 PM CDT [facility] BACTERIA (U) NONE /HPF 12/14/2022 8:03 PM CDT [facility] SQUAMOUS EPITHELIALS <1 12/14/2022 8:03 PM CDT [facility] NON SQUAMOUS EPITHELIAL <1 /HPF 12/14/2022 8:03 PM CDT [facility] GRANULAR CASTS 4 12/14/2022 8:03 PM CDT [facility] HYALINE CASTS 1 12/14/2022 8:03 PM CDT [facility] AMORPHOUS SEDIMENT PRESENT 12/14/2022 8:03 PM CDT [facility] URINE SPECIMEN FROM [facility] / Unknown 12/14/2022 7:00 PM CDT us Lon Gauthier MD URINE ORDERABLES Final Res ult [facility] [address] [place] [address], [id number] * (ABNORMAL) LACTIC ACID - SINGLE (12/14/2022 6:58 PM CDT) LACTIC ACID VENOUS 4.3(HH) 0.4 - 2.0 MMOL/L 12/14/2022 7:55 PM CDT [facility] Comment: Critical Result(s) Called to and read back by:DELMA OLIVARES at: 19:53:08 ?? 12/14/2022 by DEBBIE. AN ORDER FOR A REPEAT LACTIC ACID TEST IS REQUIRED WITHIN 6 HOURS OF DIAGNOSIS ON A PATIENT WITH SEVERE SEPSIS. 12/14/2022 6:58 PM CDT us Lon Gauthier MD LABORATORY Final Resu lt Performing Organization Address City/[facility]/ZIP Co de Phone Number [facility] [address] [place] [address], [id number] * (ABNORMAL) TROPONIN, QUANT (12/14/2022 6:58 PM CDT) [facility] TROPONIN I HIGH SENSITIVITY 425(H) 0 - 78 ng/L 12/14/2022 8:11 PM CDT [facility] 12/14/2022 6:58 PM CDT us Lon Gauthier MD LABORATORY Final Resu lt Performing Organization Address [facility] Co de Phone Number [facility] [address] [place] [address], [place] [phone] [id number] * CULTURE, BACTERIA, BLOOD (12/14/2022 6:58 PM CDT) Pathologist [facility] SPEC DESCRIPTION BLOOD 12/14/2022 5:19 PM CDT [facility] SPECIAL REQUESTS NO SPECIAL REQUEST 12/14/2022 5:19 PM CDT [facility] CULTURE RESULT NO GROWTH 5 DAYS 12/19/2022 10:46 PM CDT [facility] BLOOD SPECIMEN OBTAINED FOR BLOOD CULTURE / Unknown 12/14/2022 6:58 PM CDT 12/14/2022 7:34 PM CDT us Lon Gauthier MD MICROBIOLOGY - GENERAL ORD ERABLES Final Result Performing Organization Address [facility] Co de Phone Number [facility] [address] [place] [address], [place] [phone] * (ABNORMAL) LIPASE (12/14/2022 6:58 PM CDT) LIPASE 7(L) 13 - 75 UNITS/L 12/14/2022 8:11 PM CDT [facility] 12/14/2022 6:58 PM CDT us Lon Gauthier MD LABORATORY Final Resu lt Performing Organization Address [facility] Co de Phone Number [facility] [address] [place] [address], [place] [phone] * AMMONIA (12/14/2022 6:58 PM CDT) AMMONIA 26 11 - 32 UMOL/L 12/14/2022 7:48 PM CDT [facility] Comment:RESULT QUESTIONABLE DUE TO HEMOLYSIS, CONSIDER RECOLLECTION. 12/14/2022 6:58 PM CDT us Lon Gauthier MD LABORATORY Final Resu lt Performing Organization Address [facility] [facility] Co de Phone Number [facility] [address] [place] [address], [place] [phone] * THYROID STIM HORMONE, TSH (12/14/2022 6:58 PM CDT) TSH 1.080 0.358 - 3.740 uIU/ML 12/14/2022 8:11 PM CDT [facility] Comment: ASSAY PERFORMED BY CHEMILUMINESCENCE METHODOLOGY USING SIEMENS [employer] [facility]. PATIENT RESULTS DETERMINED BY ASSAYS USING DIFFERENT MANUFACTURERS FOR METHODS MAY NOT BE COMPARABLE. 12/14/2022 6:58 PM CDT us Lon Gauthier MD LABORATORY Final Resu lt Performing Organization Address [facility]/ZIP Co de Phone Number [facility] [address] [place] [address], [place] [phone] * PHOSPHORUS, INORGANIC PHOSPHATE (12/14/2022 6:58 PM CDT) PHOSPHORUS 4.4 2.5 - 4.9 MG/DL 12/14/2022 8:11 PM CDT [facility] 12/14/2022 6:58 PM CDT us Lon Gauthier MD LABORATORY Final Resu lt Performing Organization Address [facility] Co de Phone Number [facility] [address] [place] [address], [place] [phone] * (ABNORMAL) MAGNESIUM (12/14/2022 6:58 PM CDT) MAGNESIUM 1.5(L) 1.6 - 2.6 MG/DL 12/14/2022 8:11 PM CDT [facility] 12/14/2022 6:58 PM CDT us oLn Gauthier MD LABORATORY Final Resu lt Performing Organization Address [facility] Co de Phone Number [facility] [address] [place] [address], [place] [phone] * (ABNORMAL) COMPREHENSIVE METABOLIC PANEL (12/14/2022 6:58 PM CDT) SODIUM S/P/B 134(L) 136 - 145 MMOL/L 12/14/2022 8:11 PM CDT [facility] POTASSIUM S/P/B 3.6 3.5 - 5.1 MMOL/L 12/14/2022 8:11 PM CDT [facility] CHLORIDE S/P/B 101 98 - 107 MMOL/L 12/14/2022 8:11 PM CDT [facility] CO2 24.3 21.0 - 32.0 MMOL/L 12/14/2022 8:11 PM CDT [facility] GLUCOSE 138(H) 74 - 106 MG/DL 12/14/2022 8:11 PM CDT [facility] BUN 25(H) 7 - 18 MG/DL 12/14/2022 8:11 PM CDT [facility] CREATININE S/P/B 2.36(H) 0.70 - 1.30 MG/DL 12/14/2022 8:11 PM CDT [facility] CALCIUM S/P/B 8.0(L) 8.5 - 10.1 MG/DL 12/14/2022 8:11 PM CDT [facility] BILIRUBIN TOTAL S/P/B 0.7 0.2 - 1.0 MG/DL 12/14/2022 8:11 PM CDT [facility] ALKALINE PHOSPHATASE S/P/B 102 45 - 115 U/L 12/14/2022 8:11 PM CDT [facility] AST 10(L) 15 - 37 U/L 12/14/2022 8:11 PM CDT [facility] ALT 11(L) 16 - 61 U/L 12/14/2022 8:11 PM CDT [facility] TOTAL PROTEIN S/P/B 5.7(L) 6.4 - 8.2 G/DL 12/14/2022 8:11 PM CDT [facility] ALBUMIN S/P/B 2.2(L) 3.4 - 5.0 G/DL 12/14/2022 8:11 PM CDT [facility] ANION GAP 8.7 5.0 - 15.0 MMOL/L 12/14/2022 8:11 PM CDT [facility] OSMOLALITY (CALC) 285 MOSM/KG 023 8:11 PM CDT [facility] Comment:REFERENCE RANGE NOT ESTABLISHED GFR ESTIMATE 36(L) >90 ML/MIN/1. 73 M2 12/14/2022 8:11 PM CDT [facility] GFR NOTES GFR REFERENCE S: 12/14/2022 8:11 PM CDT [facility] Comment: THE ESTIMATED GFR IS [...] ml/min/1.73 m2 G5,KIDNEY FAILURE: <15 ml/min/1.73 m2 12/14/2022 6:58 PM CDT us Lon Gauthier MD LABORATORY Final Resu lt [facility] [address] [place] [address], [id number] * (ABNORMAL) CBC W/DIFF AUTOMATED (12/14/2022 6:58 PM CDT) WBC 0.31(L) 4.00 - 10.80 x10'3/uL 12/14/2022 7:42 PM CDT [facility] RBC 3.18(L) 4.50 - 6.10 x10'6/uL 12/14/2022 7:42 PM CDT [facility] HGB 8.0(L) 13.0 - 18.0 G/DL 12/14/2022 7:42 PM CDT [facility] HCT 24.7(L) 37.0 - 52.0 % 12/14/2022 7:42 PM CDT [facility] MCV 77.7(L) 78.0 - 100.0 FL 12/14/2022 7:42 PM CDT [facility] MCH 25.2(L) 27.0 - 31.0 PG 12/14/2022 7:42 PM CDT [facility] MCHC 32.4(L) 33.0 - 36.0 G/DL 12/14/2022 7:42 PM CDT [facility] RDW 14.6(H) 11.5 - 14.5 % 12/14/2022 7:42 PM CDT [facility] PLT 61(L) 150 - 350 x10'3/uL 12/14/2022 7:59 PM CDT [facility] MPV 11.1(H) 7.4 - 10.4 FL 12/14/2022 7:59 PM CDT [facility] ABS. NEUTROPHILS 0.05(LL) 1.60 - 8.30 x10'3/uL 12/14/2022 8:10 PM CDT [facility] Comment: CRITICAL RESULT, SPECIMEN DATE, TIME WERE READ BACK BY [email or web address]. CB ABS. NEUTROPHILS CALCULATED 0.05(L) 1.60 - 7.30 x10'3/uL 12/14/2022 8:10 PM CDT [facility] ABS. LYMPHOCYTES 0.13(L) 0.80 - 4.70 x10'3/uL 12/14/2022 8:10 PM CDT [facility] ABS. MONOCYTES 0.12 0.00 - 1.50 x10'3/uL 12/14/2022 8:10 PM CDT [facility] ABS. EOSINOPHILS 0.01 0.00 - 0.40 x10'3/uL 12/14/2022 8:10 PM CDT [facility] ABS. BASOPHILS 0.00 0.00 - 0.20 x10'3/uL 12/14/2022 8:10 PM CDT [facility] ABS. NUCLEATED RBC'S 0.00 0.0 x10'3/uL 12/14/2022 8:10 PM CDT [facility] CELLS COUNTED 44 No COUNTED 12/14/2022 8:10 PM CDT [facility] RBC MORPHOLOGY ANISOCYTOSIS 12/15/19 8:10 PM CDT [facility] Comment: SLIGHT MICROCYTOSIS MODERATE POIKILOCYTOSIS SLIGHT OVALOCYTES POLYCHROMASIA SLIGHT WBC MORPHOLOGY REACTIVE LYMPHS 12/14 8:10 PM CDT [facility] Comment:TOXIC GRANULATION PLT MORPH. LOW 12/14/2022 8:10 PM CDT [facility] 12/14/2022 6:58 PM CDT Lon Gauthier MD LABORATORY Final Resu lt [facility] [address] [place] [address], [id number] * XR CHEST PORTABLE (12/14/2022 6:45 PM CDT) Anatomical Region Laterality Modality Chest Radiographic Nunu ging 12/14/2022 7:24 PM CDT Impressions 12/14/2022 7:49 PM CDT IMPRESSION: 1. Interval placement of an endotracheal tube with tip located proximally 4 cm above the misti. 2. Unchanged consolidative opacity in the right upper lobe and hazy opacities in the right lower lung. The attending radiologist has reviewed the image(s) and agrees with the content of this report. Ordered By: LON GAUTHIER Interpreted By: Get Chavez MD, 12/14/2022 7:24 PM Narrative 12/14/2022 7:49 PM CDT Examination: XR CHEST PORTABLE Exam time: 12/14/2022 6:40 PM Clinical history: Pneumonia. Status post intubation Comparison: Chest x-ray 12/14/2022 Technique: Portable semierect radiograph of the chest Findings: Interval placement of a endotracheal tube with tip located approximately 4 cm above the level of the misti. Redemonstrated infusion port with tip projecting over the right atrium. Unchanged consolidative opacity in the lateral right upper lobe. Unchanged hazy opacities in the right lower lung. The cardiac silhouette and pulmonary vasculature are within normal limits. There is no pleural effusion or pneumothorax. Procedure Note Crystal Mojica MD - 12/14/2022 Examination: XR CHEST PORTABLE Exam time: 12/14/2022 6:40 PM Clinical history: Pneumonia. Status post intubation Comparison: Chest x-ray 12/14/2022 Technique: Portable semierect radiograph of the chest Findings: Interval placement of a endotracheal tube with tip locatedapproximately 4 cm above the level of the misti. Redemonstrated infusionport with tip projecting over the right atrium. Unchanged consolidativeopacity in the lateral right upper lobe. Unchanged hazy opacities in theright lower lung. The cardiac silhouette and pulmonary vasculature arewithin normal limits. There is no pleural effusion or pneumothorax. IMPRESSION: 1. Interval placement of an endotracheal tube with tip located proximally4 cm above the misti. 2. Unchanged consolidative opacity in the right upper lobe and hazyopacities in the right lower lung. The attending radiologist has reviewed the image(s) and agrees with thecontent of this report. Ordered By: LON GAUTHIER Interpreted By: Get Chavez MD, 12/14/2022 7:24 PM us Lon Gauthier MD GENERAL IMAGING Final Resu lt * CULTURE, BLOOD LINE DRAW (12/14/2022 6:38 PM CDT) SPEC DESCRIPTION BLOOD LINE 12/14/2022 6:39 PM CDT [facility] SPECIAL REQUESTS NO SPECIAL REQUEST 12/14/2022 6:39 PM CDT [facility] CULTURE RESULT NO GROWTH 5 DAYS 12/19/2022 10:46 PM CDT [facility] BLOOD SPECIMEN OBTAINED FOR BLOOD CULTURE / Unknown 12/14/2022 6:38 PM CDT 12/14/2022 7:33 PM CDT Lon Gauthier MD MICROBIOLOGY - GENERAL ORD ERABLES Final Result Performing Organization Address [facility] de Phone Number [facility] [address] [place] [address], [phone] * MRSA SCREENING (12/14/2022 6:38 PM CDT) SPECIMEN SOURCE RESPIRATORY, NOSE 12/14/2022 6:39 PM CDT [facility] MRSA BY PCR NASAL METHICILLIN RESISTANT STAPH AUREUS NOT DETECTED METHICILLIN RESISTANT STAPH AUREUS NOT DETECTED 12/15/2022 10:37 AM CDT [facility] NASAL STRUCTURE / Unknown 12/14/2022 6:38 PM CDT Lon Gauthier MD MICROBIOLOGY - GENERAL ORD ERABLES Final Result Performing Organization Address [facility] de Phone Number [facility] [address] [place] [address], [phone] * CULTURE CMV (12/14/2022 6:20 PM CDT) CYTOMEGALOVIRUS CULTURE REPORT 12/20/2022 2:17 PM CDT [facility] Comment: CMV Rapid Culture SOURCE : BAL RUL IN VTM 1 RESULT ?Not Isolated ? Reference Range: Not Isolated Test Performed by Krista Omalley, Radha Hamilton [facility], [address] [place] [address] Omid Yarbrough M.D., Ph.D., Director of Laboratories , CLIA [id number] SPECIMEN SOURCE BAL RUL IN VTM 1 TO 1 RATIO, FRZ NEG 70 12/15/2022 11:19 AM CDT [facility] 12/14/2022 6:20 PM CDT us Lon Gauthier MD MICROBIOLOGY - GENERAL ORD ERABLES Final Result Performing Organization Address City/[facility]/ZIP Co de Phone Number [facility] [address] [place] [address], [id number] [facility] [address] [id number], * CULTURE HERPES (12/14/2022 6:20 PM CDT) HERPES SIMPLEX VIRUS CULTURE REPORT 12/19/2022 11:21 AM CDT [facility] Comment: Herpes Simplex Virus Culture SOURCE : BAL RUL IN VTM 1 RESULT ?Not Isolated ?Reference Range: Not Isolated Test Performed by [employer] PlatformsKrista, [employer] [facility], [address] [place] [address] Omid Yarbrough M.D., Ph.D., Director of Laboratories , CLIA [id number] SPECIMEN TYPE BAL RUL IN VTM 1 TO 1 RATIO, FRZ NEG 70 12/15/2022 11:18 AM CDT [facility] 12/14/2022 6:20 PM CDT us Lon Gauthier MD MICROBIOLOGY - GENERAL ORD ERABLES Final Result [facility] [address] [place] [address], [place] [phone] [facility] [place] [id number] [place], [place] , [place] [phone] * CULTURE VIRAL RESPIRATORY RAPID (12/14/2022 6:20 PM CDT) Pathologist [facility] VIRAL RESP RAPID CULTURE W/RFX REPORT 12/20/2022 2:40 PM CDT [facility] KRISTINA Comment: Respiratory Culture Screen SOURCE : BAL RUL IN VTM 1 RESULT ?Negative for Influenza virus, types A and B, Parainfluenza viruses 1,2 # 3, Adenovirus, and Respiratory Syncytial virus. Reference range: Negative Rapid Respiratory Viruses ? Not indicated Test Performed by Krista Omalley, [employer] [facility], [address] [place] [address] Omid Yarbrough M.D., Ph.D., Director of Laboratories , [place] [id number] SPECIMEN TYPE BAL RUL IN VTM 1 TO 1 RATIO, FRZ NEG 70 12/15/2022 11:17 AM CDT [facility] 12/14/2022 6:20 PM CDT Lon Gauthier MD MICROBIOLOGY - GENERAL ORD ERABLES Final Result [facility] [address] [place] [address], [place] [phone] [place] [id number] [place], [place] , [place] [phone] * HISTOPLASMA ANTIGEN (12/14/2022 6:20 PM CDT) Pathologist [facility] SPECIMEN SOURCE BAL 11:04 AM CDT [facility] HISTOPLASMA ANTIGEN REPORT 12/21 4:24 AM T [facility] KAY [facility] Comment: Result: ?None Detected ?ng/mL ? Test Parameters: Reference Interval: None Detected Reportable Range: Positive Results reported in ng/mL from 0.20 ng/mL to 20.00 ng/mL Positive results above 20.00 ng/mL are reported as Above the Limit of Quantification Cross-reactions occur with Blastomyces spp., Coccidioides spp., and Paracoccidioides brasiliensis. INTERPRETATION Negative 12/21/2022 4:24 AM [facility] Comment: This test was developed and its performance characteristics determined by [employer]. It has not been cleared or approved by the FDA; however, FDA clearance or approval is not currently required for clinical use. The results are not intended to be used as the sole means for clinical diagnosis or patient management decisions. This document contains confidential privileged information. The recipient of the information is prohibited from disclosing the contents to another republican without authorization. If you are not the intended recipient, you are hereby notified that disclosure of the contents is strictly prohibited. Please notify [employer] immediately if you received this information in error. Test performed by [employer] ?[address] ?[place] [address] ?Phone: ?? Maral Hernandez MD, [place]([facility]), Undertaker Helper Test Reported by Krista Omalley, [employer] [facility], [address] [place] [address] Omid Yarbrough M.D., Ph.D., Director of Laboratories , [place] [id number] 12/14/2022 6:20 PM CDT Lon Gauthier MD BODY FLUIDS AND STOOLS ORD ERABLES Final Result [facility] ROCKWELLKRISTA [address] [place], [place] , [place] [phone] [facility] [address] [place] [address], [place] [phone] * SMEAR,FLUOR STAIN,ACID FAST (12/14/2022 6:20 PM CDT) ACID FAST SMEAR RESULT SEE NOTE 06:00 AM 12/17/2022 6:00 AM CDT [facility] Comment: Test ?Result ??Flag ??Unit ??RefValue Acid Fast Smear For Mycobacterium SOURCE: BRONCHOALVEOLAR LAVAGE ACID FAST SMEAR FOR MYCOBACTERIUM ?FINAL Negative. Test Performed by: [place] [address] Bread Molder: Stevan Rao M.D. Ph.D.; CLIA# [id number] 12/14/2022 6:20 PM CDT Lon Gauthier MD MICROBIOLOGY - GENERAL ORD ERABLES Final Result [address] [address] * CULTURE TB/AFB OTHER (12/14/2022 6:20 PM CDT) SOURCE (NORTH OLMSTED) BRONCHOALVEOLAR LAVAGE 12/14/2022 7:14 PM CDT [facility] Comment:RUL CULTURE RESULT SEE NOTE 01/28/2023 01:04 AM 01/28/2023 1:04 AM CDT [facility] Comment: Test ?Result ?Flag ??Unit ??RefValue Mycobacterial Culture ? SOURCE: BRONCHOALVEOLAR LAVAGE, BRONCHOALVEOLAR LAVAGE RUL MYCOBACTERIAL CULTURE ?FINAL No growth after 42 days of incubation. Test Performed by: [place] [address] Bread Molder: Stevan Rao M.D. Ph.D.; CLIA# [id number] 12/14/2022 6:20 PM CDT us Lon Gauthier MD MICROBIOLOGY - GENERAL ORD ERABLES Final Result [facility] [address] [facility] [address] [place] [address], [id number] * (ABNORMAL) CULTURE, FUNGUS (12/14/2022 6:20 PM CDT) SOURCE (NORTH OLMSTED) BRONCHOALVEOLAR LAVAGE 12/14/2022 7:13 PM CDT [facility] Comment:RUL CULTURE RESULT SEE NOTE 01/11/2023 09:12 AM(A) 01/11/2023 9:12 AM CDT [facility] Comment: Test ?Result ?Flag ??Unit ??RefValue Fungal Culture, Routine ?A ? SOURCE: BRONCHOALVEOLAR LAVAGE, BRONCHOALVEOLAR LAVAGE RUL FUNGAL CULTURE, ROUTINE ?FINAL OPAL ALBICANS ??Few Test Performed by: [place] [address] Bread Molder: Stevan Rao M.D. Ph.D.; CLIA# [id number] 12/14/2022 6:20 PM CDT us Lon Gauthier MD MICROBIOLOGY - GENERAL ORD ERABLES Final Result [facility] [address] [facility] [address] [place] [address], [id number] * CULTURE, QUANTITATIVE W/ GRAM STAIN (12/14/2022 6:20 PM CDT) SPEC DESCRIPTION BRONCHOALVEOLAR LAVAGE: RUL 12/14/2022 7:12 PM CDT [facility] SPECIAL REQUESTS NO SPECIAL REQUEST 12/14/2022 7:12 PM CDT [facility] GRAM STAIN RESULT <10 NEUTROPHILS PER LPF 12/14/2022 9:42 PM CDT [facility] GRAM STAIN RESULT <10 EPITHELIAL CELLS PER LPF 12/14/2022 9:42 PM CDT [facility] GRAM STAIN RESULT NO ORGANISMS SEEN 12/14/2022 9:42 PM CDT [facility] CULTURE RESULT ALPHA STREPTOCOCCUS 25,000 COLONIES PER ML 12/17/2022 8:58 AM CDT [facility] CULTURE RESULT MICROCOCCUS SPECIES 100 COLONIES PER ML 12/17/2022 8:58 AM CDT [facility] BRONCHOALVEOLAR LAVA GE FLUID SPECIMEN / Unknown 12/14/2022 6:20 PM CDT 12/14/2022 7:10 PM CDT Comment:RUL us Lon Gauthier MD MICROBIOLOGY - GENERAL ORD ERABLES Final Result Performing Organization Address [facility] Co de Phone Number [facility] [address] [place] [address], [phone] * (ABNORMAL) POCT glucose (12/14/2022 6:00 PM CDT) GLUCOSE POC 141(H) 70 - 109 12/14/2022 6:17 PM CDT [facility] 12/14/2022 6:00 PM CDT us Lon Gauthier MD POCT ORDERABLES - DEVICE F inal Result Performing Organization Address [facility] de Phone Number [facility] [address] [place] [address], [place] [phone] * XR CHEST PORTABLE (12/14/2022 5:50 PM CDT) Anatomical Region Laterality Modality Chest Radiographic Nunu ging 12/14/2022 6:14 PM CDT Impressions 12/14/2022 6:20 PM CDT IMPRESSION: 1. ??Dense consolidation in the lateral aspect of the right upper lobe, compatible with pneumonia. Additional infiltrates possible in right middle lobe. Recommend following to resolution. 2. ??Mild bilateral central interstitial prominence, mild pulmonary edema versus pneumonia. Referred By: JAY NARAYANAN Interpreted By: Nicho Braswell MD, 12/14/2022 6:14 PM Narrative 12/14/2022 6:20 PM CDT INDICATION: Assess for pneumonia, weakness, fatigue, cough COMPARISON: Chest CT, 14 Apr 2022 TECHNIQUE: Single AP portable radiographic image of the chest FINDINGS: Infusion port in right chest wall with the catheter tip at the superior cavoatrial junction. No pneumothorax or pleural effusion. There is a dense consolidation in the lateral aspect of the right upper lobe. Some additional infiltrates possible in the right middle lobe. Mild bilateral central interstitial prominence. Cardiomediastinal silhouette and pulmonary vasculature within normal limits. No acute osseous abnormality. Procedure Note Nicho Braswell MD - 12/14/2022 INDICATION: Assess for pneumonia, weakness, fatigue, cough COMPARISON: Chest CT, 14 Apr 2022 TECHNIQUE: Single AP portable radiographic image of the chest FINDINGS: Infusion port in right chest wall with the catheter tip at the superiorcavoatrial junction. No pneumothorax or pleural effusion. There is a denseconsolidation in the lateral aspect of the right upper lobe. Someadditional infiltrates possible in the right middle lobe. Mild bilateralcentral interstitial prominence. Cardiomediastinal silhouette and pulmonary vasculature within normallimits. No acute osseous abnormality. IMPRESSION: 1. Dense consolidation in the lateral aspect of the right upper lobe,compatible with pneumonia. Additional infiltrates possible in right middlelobe. Recommend following to resolution. 2. Mild bilateral central interstitial prominence, mild pulmonary edemaversus pneumonia. Referred By: JAY NARAYANAN Interpreted By: Nicho Braswell MD, 12/14/2022 6:14 PM us Lon Gauthier MD GENERAL IMAGING Final Resu lt * CYTOLOGY GENERIC (12/14/2022 12:00 AM CDT) CYTOLOGY OTHER [facility] ? Department of Laboratory Medicine ?[address] [address] ?[place] [address] ? , extension [phone] ? Pathology Report ? Non-gynecologic Cytology Report Name: CRYSTAL CAPONE Truman ? Specimen #: [id number] Age: 8 1990 (Age: 32) ? Location: [facility] Sex: M ?Procedure Date: 12/14/2022 Hospital #: [id number] ?Date Received: 12/15/2022 Date Reported: 12/16/2022 Provider: LON GAUTHIER MD ?ESTEPHANIE DURAN MD Source: LUNG, RIGHT UPPER LOBE, BRONCHOALVEOLAR LAVAGE Clinical History: Pneumonia, immunocompromised. Gross Description: SPECIMEN RECEIVED: ? 10 cc's of clear mucoid fluid ? SLIDES PREPARED: ?3 cytospins and 1 ThinPrep ?STAINS: ? Papanicolaou, Oil Red O, GMS, Iron FINAL DIAGNOSIS: LUNG, RIGHT UPPER LOBE, BRONCHOALVEOLAR LAVAGE: ? - SATISFACTORY FOR EVALUATION. ? - NEGATIVE FOR MALIGNANT CELLS. ? - SCATTERED PULMONARY MACROPHAGES. ? - RARE EPITHELIAL CELLS AND MILD MIXED INFLAMMATION. ? - OIL RED O STAIN DEMONSTRATES SCATTERED LIPOPHAGES. ? - GMS STAIN IS NEGATIVE FOR FUNGAL ORGANISMS. ? - IRON STAIN IS NEGATIVE. ? CELL DIFFERENTIAL: ? - NEUTROPHILS 11%. ? - MACROPHAGES 86%. ? - LYMPHOCYTES 3%. Electronically Signed Out ? DHRUV SINGH MD [facility] 12/14/2022 12/15/2022 1:07 PM CDT Comment:LUNG, RIGHT UPPER LO BE, BRONCHOALVEOLAR LAVAGE Lon Gauthier MD PATHOLOGY/CYTOLOGY ORDERAB LES Final Result [facility] [address] [place] [address], [id number] documented in this encounter Visit Diagnoses Diagnosis Septic shock (CMS/HCC HHS/HCC)- Primary documented in this encounter Admitting Diagnoses Diagnosis Septic shock (CMS/HCC HHS/HCC) documented in this encounter Administered Medications Inactive Administered Medications - up to 3 most recent administrations Medication Order MAR Action Action Date Dose Rate Site albumin human 25 % solution 50 g 50 g, Intravenous, Every 6 hours, 3 doses, First dose on 12/14/22 at 1915, Last dose on Wed12/15/22 at 0715, VELASCO brand REQUIRES albumin tubing and filter. Other brands do NOT require tubing/filter. If container is glass, open line vent to administer. In emergencies, may administer as rapidly as necessary to improve clinical condition. After initial volume replacement: do not exceed 1 mL/min in patients with normal plasma volume. New Bag 12/15/2022 6:21 AM CDT 50 g New Bag 12/15/2022 1:04 AM CDT 50 g New Bag 12/14/2022 8:25 PM CDT 50 g albumin human 25 % solution 50 g 50 g, Intravenous, Once, 1 dose, On Wed12/16/22 at 1945, VELASCO brand REQUIRES albumin tubing and filter. Other brands do NOT require tubing/filter. If container is glass, open line vent to administer. In emergencies, may administer as rapidly as necessary to improve clinical condition. After initial volume replacement: do not exceed 1 mL/min in patients with normal plasma volume. New Bag 12/16/2022 7:54 PM CDT 50 g aspirin chewable tablet 324 mg 324 mg, Oral, Once, 1 dose, On Wed12/15/22 at 2115 Given 12/15/2022 9:41 PM CDT 324 mg aspirin chewable tablet 81 mg 81 mg, Oral, Daily, First dose on Wed12/16/22 at 0900, Until Discontinued Given 12/17/2022 8:00 AM CDT 81 mg Given 12/16/2022 8:11 AM CDT 81 mg atorvastatin (LIPITOR) tablet 80 mg 80 mg, Oral, Nightly at bedtime, First dose on Wed12/15/22 at 2115, Until Discontinued Given 12/15/2022 9:42 PM CDT 80 mg azithromycin (ZITHROMAX) 500 mg in NS 250 mL IVPB 500 mg, Intravenous, at 250 mL/hr, Every 24 hours, 4 doses, First dose on Wed12/15/22 at 1500, Last dose on Wed12/18/22 at 1500 New Bag 12/16/2022 2:45 PM CDT 500 mg 250 mL/h r 12/15/2022 4:58 PM CDT 500 mg 250 mL/hr calcium gluconate 2 gram in NS 100 mL IVPB 2 g, Intravenous, at 100 mL/hr, Once, 1 dose, On Wed12/15/22 at 0800 New 12/15/2022 10:10 AM CDT 2 g 100 mL/hr chlorhexidine (PERIDEX) 0.12 % (VENT KIT) solution 15 mL 15 mL, Mouth/Throat, 2 times daily, First dose on Wed12/14/22 at 2100, Until Discontinued, Swish and suction while on ventilator Given 12/15/2022 10:09 AM CDT 15 mLs Given 12/14/2022 8:40 PM CDT 15 mLs dexmedetomidine (PRECEDEX) 400 mcg in NS 100 mL IV infusion 0.1-1.4 mcg/kg/hr ? 75.3 kg (1.8825-26.355 mL/hr, rounded to 1.88-26.36 mL/hr), Intravenous, Continuous, Starting on Wed12/15/22 at 0800, Until Wed12/15/22 at 1248, INITIAL RATE: 0.2 mcg/kg/hr TITRATE BY: 0.1 mcg/kg/hr every 10 minutes GOAL: RASS score of -2 MAXIMUM RATE: 1.4 mcg/kg/hr WEAN BY: 0.1 mcg/kg/hr every 10 minutes NOTIFY PROVIDER if HR LESS than 50 BPM, SBP LESS than 90 mmHg, respiratory rate LESS than 10 breaths per min, *or* SpO2 LESS than 92% - DECREASE infusion rate by 50% SPECIAL INSTRUCTIONS: - RASS/CPOT score must be documented for each rate/dose change. New Bag 12/15/2022 8:36 AM CDT 0.2 mcg/kg/hr 3.77 mL/hr dextrose 5 % lactated ringers infusion at 100 mL/hr, Intravenous, Continuous, Starting on Wed12/14/22 at 1800, Until Wed12/15/22 at 0735 New Bag 12/15/2022 4:57 AM CDT 100 mL/hr New Bag 12/14/2022 7:53 PM CDT 100 mL/hr DULoxetine (CYMBALTA) capsule 60 mg 60 mg, Oral, Daily, First dose on Wed12/17/22 at 0915, Until Discontinued, Swallow capsule whole or it may be opened and the contents sprinkled on applesauce. Given 12/21/2022 8:57 AM CDT 60 mg Given 12/20/2022 8:43 AM CDT 60 mg Given 12/19/2022 8:48 AM CDT 60 mg enoxaparin (LOVENOX) 40 MG/0.4ML syringe 40 mg 40 mg, Subcutaneous, Nightly (enoxaparin), First dose on Wed12/18/22 at 2100, Until Discontinued, Administer by deep SubQ injection alternating between the left or right anterolateral and left or right posterolateral abdominal wall. Given 12/20/2022 8:53 PM CDT 40 mg Le ft Arm Given 12/19/2022 8:33 PM CDT 40 mg Le ft Lower Abdomen Given 12/18/2022 8:13 PM CDT 40 mg Le ft Lower Abdomen famotidine (PEPCID) tablet 20 mg 20 mg, Tube, Every 12 hours scheduled (2 times per day), First dose (after last modification) on Wed12/15/22 at 2100, Until Discontinued Given 12/21/2022 8:57 AM CDT 2 0 mg Given 12/20/2022 8:53 PM CDT 20 mg Given 12/20/2022 8:43 AM CDT 20 mg famotidine (PF) (PEPCID) injection 20 mg 20 mg, Intravenous, Every 12 hours scheduled (2 times per day), First dose on Wed12/14/22 at 2100, Until Discontinued, Give if unable to take PO. IV Push over 2 minutes Given 12/14/2022 8:32 PM CDT 20 mg famotidine (PF) (PEPCID) injection 20 mg 20 mg, Intravenous, Every 12 hours scheduled (2 times per day), First dose (after last modification) on Wed12/15/22 at 2100, Until Discontinued, Give if unable to take PO. IV Push over 2 minutes Given 12/18/2022 8:13 PM CDT 20 mg Given 12/15/2022 8:03 PM CDT 20 mg fentaNYL (SUBLIMAZE) 10 mcg/mL infusion 50-200 mcg/hr (5-20 mL/hr), Intravenous, Continuous, Starting on Wed12/14/22 at 2115, Until Wed12/15/22 at 0953, INITIAL RATE: 50 mcg/hr TITRATE BY: 50 mcg/hr every 10 minutes GOAL: CPOT score less than 3 MAXIMUM RATE: 200 mcg/hr WEAN BY: 50 mcg/hr every 10 minutes NOTIFY PROVIDER if SBP LESS than 90 mmHg, HR LESS than 65 bpm, or SpO2 LESS than 92% - DECREASE infusion rate by 50% SPECIAL INSTRUCTIONS: - RASS/CPOT score must be documented for each rate/dose change. *High Alert* Rate/Dose Change 12/15/2022 8:30 AM CDT 50 mcg/hr 5 mL/hr Rate/Dose Change 12/15/2022 4:44 AM CDT 100 mcg/hr 10 mL/h r New Bag 12/14/2022 9:50 PM CDT 50 mcg/hr 5 mL/hr fentaNYL (SUBLIMAZE) injection 25 mcg 25 mcg, Intravenous, Every 1 hour PRN, Severe pain (Scale 8 - 10), Starting on Wed12/14/22 at 1747, Until Wed12/15/22 at 0953, If intravenous (IV) route has been ordered, give over 1-2 minutes. Given 12/14/2022 8:58 PM CDT 25 mcg fentaNYL (SUBLIMAZE) injection 50 mcg 50 mcg, Intravenous, Every 1 hour PRN, Severe pain (Scale 8 - 10), Starting on Wed12/15/22 at 0949, Until Wed12/18/22 at 0727, If intravenous (IV) route has been ordered, give over 1-2 minutes. Given 12/15/2022 2:14 PM CDT 50 mcg furosemide (LASIX) injection 20 mg 20 mg, Intravenous, Once, 1 dose, On Wed12/16/22 at 1445, Administer IV push 20-40mg/min. Given 12/16/2022 2:45 PM CDT 20 mg gabapentin (NEURONTIN) capsule 300 mg 300 mg, Oral, 3 times daily, First dose on Wed12/17/22 at 0915, Until Discontinued Given 12/21/2022 8:57 AM CDT 300 mg Given 12/20/2022 8:53 PM CDT 300 mg Given 12/20/2022 4:05 PM CDT 300 mg heparin (porcine) injection 5,000 Units 5,000 Units, Subcutaneous, Every 8 hours scheduled (3 times per day), First dose on Ana 12/17/22 at 1600, Until Discontinued Given 12/18/2022 6:31 AM CDT 5,000 Units Right Lower Abdomen Given 12/17/2022 10:18 PM CDT 5,000 Units Left Lower Abdomen Given 12/17/2022 4:05 PM CDT 5,000 Units R ight Lower Abdomen HYDROcodone-acetaminophen (NORCO) 5-325 MG tablet 1 tablet 1 tablet, Tube, Every 6 hours PRN, Moderate pain (Scale 4 - 7), Starting on Wed12/15/22 at 1621, Until Wed12/15/22 at 1904, Maximum dose of acetaminophen is 4000 mg from all sources in 24 hours. Given 12/15/2022 6:48 PM CDT 1 tabl et HYDROcodone-acetaminophen (NORCO) 5-325 MG tablet 1 tablet 1 tablet, Oral, Every 6 hours PRN, Moderate pain (Scale 4 - 7), Starting on Wed12/15/22 at 1859, Until Wed12/21/22 at 1332, Maximum dose of acetaminophen is 4000 mg from all sources in 24 hours. Given 12/16/2022 12:53 AM CDT 1 tab let hydrocortisone sodium succinate (Solu-CORTEF) injection 100 mg 100 mg, Intravenous, Every 8 hours scheduled (3 times per day), First dose on Wed12/14/22 at 2200, Until Discontinued Given 12/16/2022 5:33 AM CDT 100 mg Given 12/15/2022 10:03 PM CDT 100 mg Given 12/15/2022 1:02 PM CDT 100 mg hydrOXYzine (ATARAX) tablet 25 mg 25 mg, Oral, 3 times daily PRN, Anxiety, Starting on Wed12/20/22 at 1050, Until Wed12/21/22 at 1332 insulin lispro (HUMALOG) injection 0-12 Units 0-12 Units, Subcutaneous, 4 times daily before meals and nightly, First dose on Wed12/16/22 at 1100, Until Discontinued, From sliding scale insulin subcut med order set - For TDI 60 - 89 units Blood Glucose: (Less than 70: Initiate Hypoglycemia Standing Orders) (70 - 149, administer 0 units) (150 - 199, administer 3 units) (200 - 249, administer 5 units) (250 - 299, administer 7 units) (300 - 349, administer 10 units) (Greater than 349, administer 12 units and Call Physician) Given 12/16/2022 11:34 AM CDT 3 Units Right Arm insulin lispro (HUMALOG) injection 0-8 Units 0-8 Units, Subcutaneous, Every 6 hours scheduled (4 times per day), First dose on Wed12/15/22 at 1200, Until Discontinued, From sliding scale insulin subcut med order set - For TDI 30 - 59 units Blood Glucose: (Less than 70: Initiate Hypoglycemia Standing Orders) (70 - 149, administer 0 units) (150 - 199, administer 2 units) (200 - 249, administer 3 units) (250 - 299, administer 5 units) (300 - 349, administer 7 units) (Greater than 349, administer 8 units and Call Physician) Given 12/15/2022 5:16 PM CDT 5 Units Left Lower Abdomen iopamidol (ISOVUE-370) 76 % injection 100 mL 100 mL, Intravenous, IMG once as needed, Contrast, 1 dose, Starting on Wed12/15/22 at 1504, Until Wed12/21/22 at 1332 ipratropium-albuterol (DUONEB) 0.5-2.5 (3) MG/3ML nebulizer solution 3 mL 3 mL, Nebulization, Every 4 hours PRN, Other, respiratory distress, Starting on Wed12/14/22 at 1718, Until Wed12/16/22 at 1420 Given 12/15/2022 7:06 PM CDT 3 mLs ipratropium-albuterol (DUONEB) 0.5-2.5 (3) MG/3ML nebulizer solution 3 mL 3 mL, Nebulization, Every 4 hours PRN, Shortness of breath, Starting on Ana 12/17/22 at 2244, Until Wed12/21/22 at 1332 Given 12/18/2022 2:51 AM CDT 3 mLs Given 12/17/2022 10:49 PM CDT 3 mLs ketamine (KETALAR) 50 MG/ML injection 1 dose, Starting on Wed12/14/22 at 1755, Until Wed12/14/22 at 1811, Created by cabinet ajay ketamine (KETALAR) injection 100 mg 100 mg, Intravenous, Once, 1 dose, On Wed12/14/22 at 1830, For IV administration: administer over 1-3 minutes. Given 12/14/2022 6:11 PM CDT 100 mg lidocaine 4 % patch 1 patch 1 patch, Transdermal, Administer over 12 Hours, Every 24 hours, First dose on Wed12/16/22 at 1000, Until Discontinued Patch Applied 12/21/2022 9:00 AM CDT 1 patch Back Patch Applied 12/18/2022 9:29 AM CDT 1 patch Chest Patch Applied 12/17/2022 9:25 AM CDT 1 patch Other LORazepam (ATIVAN) tablet 1 mg 1 mg, Oral, Every 8 hours PRN, Anxiety, Starting on Wed12/15/22 at 1900, Until Wed12/16/22 at 1415 Given 12/16/2022 1:51 PM CDT 1 mg LORazepam (ATIVAN) tablet 1 mg 1 mg, Oral, Once, 1 dose, On Wed12/18/22 at 1900 Given 12/18/2022 6:50 PM CDT 1 mg magnesium oxide (MAG-OX) tablet 800 mg 800 mg, Oral, Once, 1 dose, On Wed12/18/22 at 0715 Given 12/18/2022 7:20 AM CDT 800 mg magnesium sulfate IVPB 2 g 2 g, Intravenous, at 25 mL/hr, Once, 1 dose, On Wed12/14/22 at 2315 New Bag 12/14/2022 11:19 PM CDT 2 g 25 mL/hr magnesium sulfate IVPB 2 g 2 g, Intravenous, at 25 mL/hr, Once, 1 dose, On Wed12/17/22 at 0800 New Bag 12/17/2022 8:00 AM CDT 2 g 25 mL/hr meropenem (MERREM) 1 g in sodium chloride 0.9 % 50 mL IVPB 1 g, Intravenous, at 100 mL/hr, Once, 1 dose, On Wed12/14/22 at 1830, Administer over 30 minutes. New Bag 12/14/2022 7:58 PM CDT 1 g 100 mL/hr meropenem (MERREM) 1 g in sodium chloride 0.9 % 50 mL IVPB 1 g, Intravenous, at 16.67 mL/hr, Every 12 hours, First dose on Wed12/14/22 at 2100, Until Discontinued, Administer over 3 hours (extended infusion). New Bag 12/14/2022 11:15 PM CDT 1 g 16.67 mL/hr meropenem (MERREM) 2 g in sodium chloride 0.9 % 100 mL IVPB 2 g, Intravenous, at 33.3 mL/hr, Every 8 hours, First dose (after last modification) on Wed12/15/22 at 1100, Until Discontinued, Administer over 3 hours (extended infusion). Due to short stability-will need to reorder from IV room 1 hr before due New Bag 12/21/2022 3:30 AM CDT 2 g 33.3 mL/hr New Bag 12/20/2022 6:27 PM CDT 2 g 33.3 mL/hr New Bag 12/20/2022 9:51 AM CDT 2 g 33.3 mL/hr metoprolol succinate ER (TOPROL-XL) 24 hr tablet 12.5 mg 12.5 mg, Oral, Daily, First dose on Wed12/18/22 at 1100, Until Discontinued, May be split in half along the tablet score line; do not chew or crush. Given 12/21/2022 8:57 AM CDT 12.5 mg Given 12/20/2022 8:43 AM CDT 12.5 mg Given 12/19/2022 8:48 AM CDT 12.5 mg micafungin (MYCAMINE) 100 mg in sodium chloride 0.9 % 100 mL IVPB 100 mg, Intravenous, at 100 mL/hr, Every 24 hours, First dose on Wed12/14/22 at 1830, Until Discontinued New Bag 12/16/2022 5:50 PM CDT 100 m g 100 mL/hr New Bag 12/15/2022 6:40 PM CDT 100 mg 100 mL/hr New Bag 12/14/2022 8:30 PM CDT 100 mg 100 mL/hr midodrine (PROAMATINE) tablet 10 mg 10 mg, Oral, 3 times daily with meals, First dose (after last modification) on Wed12/16/22 at 1745, Until Discontinued Given 12/17/2022 4:05 PM CDT 10 mg Given 12/17/2022 1:15 PM CDT 10 mg Given 12/17/2022 8:00 AM CDT 10 mg midodrine (PROAMATINE) tablet 2.5 mg 2.5 mg, Oral, 3 times daily with meals, First dose (after last modification) on Wed12/19/22 at 1200, Until Discontinued Given 12/19/2022 4:23 PM CDT 2.5 mg Given 12/19/2022 12:56 PM CDT 2.5 mg midodrine (PROAMATINE) tablet 5 mg 5 mg, Tube, 3 times daily with meals, First dose on Wed12/15/22 at 1700, Until Discontinued Given 12/16/2022 4 :40 PM CDT 5 mg Given 12/16/2022 11:34 AM CDT 5 mg Given 12/16/2022 8:11 AM CDT 5 mg midodrine (PROAMATINE) tablet 5 mg 5 mg, Oral, 3 times daily with meals, First dose (after last modification) on Wed12/18/22 at 0800, Until Discontinued Given 12/18/2022 4:41 PM CDT 5 mg Given 12/18/2022 11:54 AM CDT 5 mg Given 12/18/2022 9:29 AM CDT 5 mg norepinephrine (LEVOPHED) 8 mg/250mL NS infusion 0.5-60 mcg/min (0.9375-112.5 mL/hr, rounded to 0.94-112.5 mL/hr), Intravenous, Continuous, Starting on Wed12/14/22 at 1800, Until Wed12/16/22 at 0930, INITIAL RATE: 5 mcg/min TITRATE according to MAP: - If MAP is 60-65 ----- 2 mcg/min every 10 min - If MAP is 55-59 ----- 5 mcg/min every 5 min - If MAP is 50-54 ----- 5 mcg/min every 2 min - If MAP is LESS than 50 ------ 5 mcg/min every 1 min MAP Goal: MAP greater than or equal to 65 mmHg and SBP greater than or equal to 90 mmHg or HR greater than or equal to 60 bpm, MAXIMUM RATE: 60 mcg/min WEAN BY: 2 mcg/min every 2 minutes after a goal MAP > 65 for at least 3 consecutive readings NOTIFY PROVIDER if max rate of 60 mcg/min reached and/or SBP LESS than 90 mmHg or MAP LESS than 55 mmHg despite 3 upward titrations NOTIFY PROVIDER if SBP GREATER than 150 mmHg for 3 consecutive readings despite weaning rate. The order in which vasopressors are to be discontinued will be dictated by physician. Rate/Dose Change 12/16/2022 3:40 AM CDT 1 mcg/min 1.88 mL/hr Rate/Dose Change 12/16/2022 1:05 AM CDT 2 mcg/min 3.75 mL /hr Rate/Dose Change 12/16/2022 12:25 AM CDT 3 mcg/min 5.63 m L/hr normal saline 0.9 % flush 3-10 mL 3-10 mL, Intravenous, Every 8 hours, First dose on Wed12/14/22 at 1745, Until Discontinued Given 12/21/2022 8:58 AM CDT 10 mLs Given 12/20/2022 6:00 PM CDT 5 mLs Given 12/20/2022 8:44 AM CDT 10 mLs normal saline 0.9 % flush 3-10 mL 3-10 mL, Intravenous, As needed, Line care, Starting on Wed12/14/22 at 1718, Until Wed12/21/22 at 1332 ondansetron (ZOFRAN) injection 4 mg 4 mg, Intravenous, Every 8 hours PRN, Nausea, Vomiting, Starting on Wed12/14/22 at 1718, Until Wed12/21/22 at 1332, IV push over 2-5 minutes. polyvinyl alcohol (LIQUIFILM/ARTIFICIAL TEARS) 1.4 % ophthalmic solution 1 drop 1 drop, Both Eyes, Every 4 hours, First dose on Wed12/14/22 at 1815, Until Discontinued Given 12/15/2022 2:16 PM CDT 1 drop Given 12/15/2022 10:09 AM CDT 1 drop Given 12/15/2022 5:45 AM CDT 1 drop potassium chloride (KLOR-CON) packet 1 packet 1 packet (20 mEq), Oral, Once, 1 dose, On Wed12/15/22 at 1945, Dissolve powder in 240 mL water Given 12/15/2022 7:55 PM CDT 1 packet potassium chloride (KLOR-CON) packet 3 packet 3 packet (60 mEq), Tube, Once, 1 dose, On Wed12/15/22 at 0630, Dissolve powder in 240 mL water Given 12/15/2022 6:21 AM CDT 3 packets potassium chloride 40 mEq in NS 500 mL IVPB 40 mEq, Intravenous, Administer over 240 Minutes, Once, 1 dose, On Wed12/15/22 at 1315, MAX rate in peripheral line of 10 mEq per hour. New Bag 12/15/2022 2:03 PM CDT 40 mEq 125 mL/hr potassium chloride 40 mEq in SW 100 mL IVPB 40 mEq, Intravenous, Administer over 120 Minutes, Once, 1 dose, On [facility] 12/16/22 at 0100, For CENTRAL line only New Bag 12/16/2022 12:45 AM CDT 40 mEq 50 mL/hr potassium chloride 40 mEq in SW 100 mL IVPB 40 mEq, Intravenous, Administer over 120 Minutes, Once, 1 dose, On Ana 12/17/22 at 0730, For CENTRAL line only New Bag 12/17/2022 8:00 AM CDT 40 mEq 50 mL/hr potassium chloride CR (KLOR-CON M) tablet 20 mEq 20 mEq, Oral, Once, 1 dose, On [facility] 12/19/22 at 0830, Do not chew, crush, or suck on tablet. May break in half. May dissolve whole tablet in 120 mL of water and drink immediately. Given 12/19/2022 8:48 AM CDT 20 mEq potassium chloride CR (KLOR-CON M) tablet 40 mEq 40 mEq, Oral, Once, 1 dose, On Ana 12/17/22 at 0730, Do not chew, crush, or suck on tablet. May break in half. May dissolve whole tablet in 120 mL of water and drink immediately. Given 12/17/2022 8:00 AM CDT 40 mEq potassium phosphate 45 mmol in sodium chloride 0.9 % 250 mL IVPB 45 mmol, Intravenous, at 71.4 mL/hr, Once, 1 dose, On Ana 12/17/22 at 0730, For each 1 mmol of phosphate, ~1.5 mEq of potassium will be administered. *CENTRAL LINE ONLY* New Bag 12/17/2022 9:25 AM CDT 45 mmol 71.4 mL/hr predniSONE (DELTASONE) tablet 70 mg 70 mg, Oral, Daily, First dose on Ana 12/17/22 at 0900, Until Discontinued Given 12/17/2022 8:00 AM CDT 70 mg propofol (DIPRIVAN) infusion 5-50 mcg/kg/min ? 75.3 kg (2.259-22.59 mL/hr, rounded to 2.26-22.59 mL/hr), Intravenous, Continuous, Starting on Wed12/14/22 at 1815, Until Wed12/15/22 at 1248, INITIAL RATE: 5 mcg/kg/min TITRATE BY: 5 mcg/kg/min every 5 minutes GOAL: RASS score of -2 MAXIMUM RATE: 50 mcg/kg/min WEAN BY: 5 mcg/kg/min every 5 minutes NOTIFY PROVIDER if SBP LESS than 90 mmHg, respiratory rate LESS than 10 breaths per min, or SpO2 LESS than 92% - DECREASE infusion rate by 50% SPECIAL INSTRUCTIONS: - RASS score must be documented for each rate/dose change. - Product expires 12 hours after vial is punctured, expiration time must be documented on bottle and tubing when initiated. If container is glass, open line vent to administer. Rate/Dose Change 12/15/2022 9:50 AM CDT 10 mcg/kg/min 4.52 mL/hr Rate/Dose Change 12/15/2022 9:45 AM CDT 15 mcg/kg/min 6.78 mL/hr Rate/Dose Change 12/15/2022 9:30 AM CDT 20 mcg/kg/min 9.04 mL/hr rocuronium (ZEMURON) 50 MG/5ML injection 1 dose, Starting on Wed12/14/22 at 1755, Until Wed12/14/22 at 1811, Created by cabinet override *High Alert* rocuronium (ZEMURON) injection 100 mg 100 mg, Intravenous, Once, 1 dose, On Wed12/14/22 at 1830, Neuromuscular kely - patient must be on a ventilator. *High Alert* Given 12/14/2022 6:11 PM CDT 100 mg senna-docusate (SENOKOT-S) 8.6-50 MG tablet 1 tablet 1 tablet, Oral, 2 times daily, First dose on Ana 12/17/22 at 0915, Until Discontinued Given 12/20/2022 8:53 P M CDT 1 tablet Given 12/20/2022 8:43 AM CDT 1 tablet Given 12/19/2022 8:32 PM CDT 1 tablet sodium chloride 0.9% infusion at 10 mL/hr, Intravenous, Continuous, Starting on Wed12/16/22 at 0245, Until Wed12/16/22 at 1420, Infuse at TKO rate New Bag 12/16/2022 3:55 AM CDT 250 mLs 10 mL/hr sulfamethoxazole-trimeth oprim (BACTRIM) 188.8 mg of trimethoprim in dextrose 5 % 500 mL IVPB 188.8 mg of trimethoprim (rounded from 188.25 mg of trimethoprim = 10 mg/kg/day of trimethoprim ? 75.3 kg), Intravenous, at 333.3 mL/hr, Every 6 hours, First dose on Wed12/14/22 at 1900, Until Discontinued, Expiration Date: 6 hours Room Temperature 12/16/2022 6:28 AM CDT 188.8 mg of trimethoprim 333.3 mL/hr 12/16/2022 12:51 AM CDT 188.8 mg of trimethopri m 333.3 mL/hr 12/15/2022 7:46 PM CDT 188.8 mg of trimethoprim 333.3 mL/hr tbo-filgrastim (GRANIX) 300 MCG/0.5ML injection 300 mcg 300 mcg, Subcutaneous, Daily, 7 doses, First dose on Wed12/14/22 at 2115, Last dose on Wed12/21/22 at 0900 Given 12/17/2022 10:10 AM CDT 300 mcg Left Lower Abdomen Given 12/16/2022 10:31 AM CDT 300 mcg R ight Lower Abdomen Given 12/14/2022 10:21 PM CDT 300 mcg R ight Lower Abdomen vancomycin 1000 mg in NS 250 mL IVPB 1,000 mg, Intravenous, at 250 mL/hr, Every 24 hours, First dose on Wed12/15/22 at 0800, Until Discontinued 12/15/2022 10:20 AM CDT 1,000 mg 250 mL/hr vancomycin 750 mg in NS 250 mL IVPB 750 mg, Intravenous, Every 12 hours, First dose (after last modification) on Wed12/15/22 at 2200, Until Discontinued 12/16/2022 9:50 AM CDT 750 mg 12/15/2022 10:03 PM CDT 750 mg documented in this encounter Active and Recently Administered Medications Times are shown in CDT. Scheduled Medication Order 12/19/2022 12/20/2022 12/21/2022 DULoxetine (CYMBALTA) capsule 60 mg 60 mg, Oral, Daily, First dose on Wed12/17/22 at 0915, Until Discontinued, Swallow capsule whole or it may be opened and the contents sprinkled on applesauce. 0848 (Given - Provider: Kim Salguero RN) 0843 (Given - Provider: Kim Salguero RN) 0857 (Given - Provider: Lay Tian, DELMA) enoxaparin (LOVENOX) 40 MG/0.4ML syringe 40 mg 40 mg, Subcutaneous, Nightly (enoxaparin), First dose on Wed12/18/22 at 2100, Until Discontinued, Administer by deep SubQ injection alternating between the left or right anterolateral and left or right posterolateral abdominal wall. 2032 (Given - Provider: Estefani Still RN) 2052 (Given - Provider: Nieves Lew, DELMA) famotidine (PEPCID) tablet 20 mg(Linked Group 1) 20 mg, Tube, Every 12 hours scheduled (2 times per day), First dose (after last modification) on Wed12/15/22 at 2100, Until Discontinued 0848 (Given - Provider: Kim Salguero RN)2032 (Given - Provider: Estefani Still RN) 0843 (Given - Provider: Kim Salguero RN)2052 (Given - Provider: Nieves Lew RN) 0857 (Given - Provider: Lay Tian RN) famotidine (PF) (PEPCID) injection 20 mg(Linked Group 1) 20 mg, Intravenous, Every 12 hours scheduled (2 times per day), First dose (after last modification) on Wed12/15/22 at 2100, Until Discontinued, Give if unable to take PO. IV Push over 2 minutes 0848 (See Alternative - Provider: Kim Salguero RN)2032 (See Alternative - Provider: Estefani Still RN) 0843 (See Alternative - Provider: Kim Salguero RN)2052 (See Alternative - Provider: Nieves Lew RN) 0857 (See Alternative - Provider: Lay Tian, DELMA) gabapentin (NEURONTIN) capsule 300 mg 300 mg, Oral, 3 times daily, First dose on Wed12/17/22 at 0915, Until Discontinued 0848 (Given - Provider: Kim Salguero RN)162 (Given - Provider: Kim Salguero RN)2031 (Given - Provider: Estefani Still RN) 0843 (Given - Provider: Kim Salguero RN)1605 (Given - Provider: Abigail Escobar, RN)2053 (Given - Provider: Nieves Lew, RN) 0857 (Given - Provider: Lay Tian, DELMA) insulin lispro (HUMALOG) injection 0-12 Units 0-12 Units, Subcutaneous, 4 times daily before meals and nightly, First dose on Wed12/16/22 at 1100, Until Discontinued, From sliding scale insulin subcut med order set - For TDI 60 - 89 units Blood Glucose: (Less than 70: Initiate Hypoglycemia Standing Orders) (70 - 149, administer 0 units) (150 - 199, administer 3 units) (200 - 249, administer 5 units) (250 - 299, administer 7 units) (300 - 349, administer 10 units) (Greater than 349, administer 12 units and Call Physician) 0849 (Not Given - Provider: Kim Salguero RN - Reason: Order parameters not met)1229 (Not Given - Provider: Kim Salguero RN - Reason: Order parameters not met - Comment: BS 120. Taken by tech but not carried over d/t scanning wrong wristband)1600 (Not Given - Provider: Kim Salguero RN - Reason: Order parameters not met)2219 (Not Given - Provider: Estefani Still RN - Reason: Order parameters not met) 0726 (Not Given - Provider: Kim Salguero RN - Reason: Order parameters not met)1250 (Not Given - Provider: Kim Salguero RN - Reason: Order parameters not met)1758 (Not Given - Provider: Abigail Escobar RN - Reason: Order parameters not met)2101 (Not Given - Provider: Nieves Lew, DELMA - Reason: Patient/family declined) 0620 (Not Given - Provider: Nieves Lew RN - Reason: Order parameters not met)1100 (Canceled Entry - Provider: Automatic Discharge Provider - Comment: Automatically canceled at discontinue of medication order) lidocaine 4 % patch 1 patch 1 patch, Transdermal, Administer over 12 Hours, Every 24 hours, First dose on Wed12/16/22 at 1000, Until Discontinued 1054 (Not Given - Provider: Kim Salguero RN - Reason: Patient/family declined) 0926 (Not Given - Provider: Kim Salguero RN - Reason: Patient/family declined) 0900 (Patch Applied - Provider: Lay Tian, DELMA)1131 (Due: Patch Removed - Provider: Automatic Discharge Provider - Comment: Time automatically adjusted from order being discontinued) meropenem (MERREM) 2 g in sodium chloride 0.9 % 100 mL IVPB 2 g, Intravenous, at 33.3 mL/hr, Every 8 hours, First dose (after last modification) on Wed12/15/22 at 1100, Until Discontinued, Administer over 3 hours (extended infusion). Due to short stability-will need to reorder from IV room 1 hr before due 0419 (New Bag - Provider: Estefani Still RN)0719 (Infusion Stop Time - Provider: Kim Salguero RN)1113 (New Bag - Provider: Kim Salguero RN)1413 (Infusion Stop Time - Provider: Kim Salguero RN)1748 (New Bag - Provider: Kim Salguero RN)2048 (Infusion Stop Time - Provider: Brenna Morse RN) 0215 (New Bag - Provider: Estefani Still RN)0543 (Infusion Stop Time - Provider: Brenna Morse RN)0951 (New Bag - Provider: Kim Salguero RN)1255 (Infusion Stop Time - Provider: Kim Salguero RN)1827 (New Bag - Provider: Abigail Escobar RN)2137 (Infusion Stop Time - Provider: Nieves Lew, DELMA) 0330 (New Bag - Provider: Nieves Lew, RN)0812 (Infusion Stop Time - Provider: Lay Tian, DELMA)1030 (Canceled Entry - Provider: Automatic Discharge Provider - Comment: Automatically canceled at discontinue of medication order) metoprolol succinate ER (TOPROL-XL) 24 hr tablet 12.5 mg 12.5 mg, Oral, Daily, First dose on Wed12/18/22 at 1100, Until Discontinued, May be split in half along the tablet score line; do not chew or crush. 0848 (Given - Provider: Kim Salguero RN) 0843 (Given - Provider: Kim Salguero RN) 0857 (Given - Provider: Lay Tian, DELMA) midodrine (PROAMATINE) tablet 2.5 mg (CANCELED) 2.5 mg, Oral, 3 times daily with meals, First dose (after last modification) on 12/19/22 at 1200, Until Discontinued 1256 (Given - Provider: Kim Salguero RN)1623 (Given - Provider: Kim Salguero RN) 0843 (Not Given - Provider: Kim Salguero RN - Reason: Order parameters not met)1228 (Not Given - Provider: Kim Salguero RN - Reason: Medication Discontinued) normal saline 0.9 % flush 3-10 mL 3-10 mL, Intravenous, Every 8 hours, First dose on 12/14/22 at 1745, Until Discontinued 0849 (Given - Provider: Kim Salguero RN)1633 (Not Given - Provider: Kim Salguero RN - Reason: Other) 0252 (Given - Provider: Estefani Still, DELMA)0844 (Given - Provider: Kim Salguero RN)1800 (Given - Provider: Abigail Escobar RN) 0621 (Not Given - Provider: Nieves Lew RN - Reason: Other - Comment: Already flushed)0858 (Given - Provider: Lay Tian, DELMA) potassium chloride CR (KLOR-CON M) tablet 20 mEq (COMPLETED) 20 mEq, Oral, Once, 1 dose, On 12/19/22 at 0830, Do not chew, crush, or suck on tablet. May break in half. May dissolve whole tablet in 120 mL of water and drink immediately. 0848 (Given - Provider: Kim Salguero RN) senna-docusate (SENOKOT-S) 8.6-50 MG tablet 1 tablet 1 tablet, Oral, 2 times daily, First dose on Ana 12/17/22 at 0915, Until Discontinued 0848 (Given - Provider: Kim Salguero RN)203 (Given - Provider: Estefani Still RN) 0897 (Given - Provider: Kim Salguero RN)2052 (Given - Provider: Nieves Lew RN) 0832 (Not Given - Provider: Lay Tian RN - Reason: Patient/family declined) PRN Medication Order 12/19/2022 12/20/2022 12/21/2022 HYDROcodone-acetaminophen (NORCO) 5-325 MG tablet 1 tablet 1 tablet, Oral, Every 6 hours PRN, Moderate pain (Scale 4 - 7), Starting on Wed12/15/22 at 1859, Until Wed12/21/22 at 1332, Maximum dose of acetaminophen is 4000 mg from all sources in 24 hours. hydrOXYzine (ATARAX) tablet 25 mg 25 mg, Oral, 3 times daily PRN, Anxiety, Starting on Wed12/20/22 at 1050, Until Wed12/21/22 at 1332 iopamidol (ISOVUE-370) 76 % injection 100 mL 100 mL, Intravenous, IMG once as needed, Contrast, 1 dose, Starting on Wed12/15/22 at 1504, Until Wed12/21/22 at 1332 ipratropium-albuterol (DUONEB) 0.5-2.5 (3) MG/3ML nebulizer solution 3 mL 3 mL, Nebulization, Every 4 hours PRN, Shortness of breath, Starting on Ana 12/17/22 at 2244, Until Wed12/21/22 at 1332 normal saline 0.9 % flush 3-10 mL 3-10 mL, Intravenous, As needed, Line care, Starting on Wed12/14/22 at 1718, Until Wed12/21/22 at 1332 ondansetron (ZOFRAN) injection 4 mg 4 mg, Intravenous, Every 8 hours PRN, Nausea, Vomiting, Starting on Wed12/14/22 at 1718, Until Wed12/21/22 at 1332, IV push over 2-5 minutes. Linked Groups Order Group 1: famotidine (PF) (PEPCID) injection 20 mgJump to med 20 mg, Intravenous, Every 12 hours scheduled (2 times per day), First dose (after last modification) on Wed12/15/22 at 2100, Until Discontinued, Give if unable to take PO. 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
--- OUTSIDE RECORDS SUMMARY | 2024-06-25 06:49 | XMS_ITS | Encounter Summary ---
Author Organization [facility] Address [address] [place] [address]. [place] [address] [place] [address] Care Team Providers Care Heat Welder Plastics Name Role Phone FeleciaCandido kincaid Primary Care Provider [phone] Ambrocio Ashford MD Unavailable Reason for Visit * Reason Onset Date Comments Follow Up 12/23/2022 Schedule Procedure 12/23/2022 Encounter Details Date Type Department Care Team ([facility] Contact Info) Description 12/23/2022 [facility] [address] [place] [address] Kaycee Oliver MD [address] [place] [address] Follow Up; Schedule Procedure Social History Tobacco Use Types Packs/Day Years [...] week 04/14/2022 How often do you attend amish or jewish serv ices? Never 04/14/2022 Do you belong [...] move on to questions 3-9 0 04/14/2022 [facility] Occupat ional Health - Occupational Stress [...] place to sleep or slept in a group home (including now)? 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 Patient advised to reach out to insurance carrier to find physician that is covered with his currentplan. RN made patient aware to call back if something changes with his insurance. No further issuesnoted. Pt verbalized understanding, no further questions. DELMA Hall * Cristy Sandy RN - 12/25/2022 11:09 AM CDT Are you going to have him get the FRANCISCO with an in-network provider? Shall I cancel this order for a FRANCISCO with Dr Eduardo? * Telma Mcneil RN - 12/25/2022 9:46 AM CDT We do not have dys-xs-selhpcy authorization. I was just informed that they are not in our network. * Cristy Sandy RN - 12/24/2022 12:03 PM CDT [employer] - please advise if we have an axe-cs-gepuioe authorization * Telma Mcneil RN - 12/23/2022 1:10 PM CDT Please let me know when FRANCISCO is scheduled and I will coordinate MRI. Thanks, Tamanna Oliver MD P [facility] Melody Nurse; Lala [facility] Melody Allocations Clerk; [facility] John Banuelos Nurse; MD Giovanni Please arrange for this patient to have FRANCISCO and cardiac MRI (don/read by Dr John Banuelos) as an outpatient. Please arrange for him to have both tests in the same day as he will be coming from far away as well as follow-up with me at that same day. This could be done in 4 to 8 weeks. Thank you. documented in this encounter Plan of Treatment Not on file documented as of this encounter Goals Goal Patient Goal Type Associated Problems Recent Progress Patient-Stated? Author Safety ? 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
--- OUTSIDE RECORDS SUMMARY | 2024-06-25 06:49 | XMS_ITS | Encounter Summary ---
Author Organization [facility] Address [address] [place] [address]. [place] [address] [place] [address] Care Team Providers Care Rotary Screen Printing Machine Operator Name Role Phone FeleciaCandido kincaid Primary Care Provider [phone] Ambrocio Ashford MD Unavailable [phone] Encounter Details Date Type Department Care Team (Latest Contact Info) Description 12/17/2022 Travel Social History Tobacco Use Types Packs/Day [...] week 04/14/2022 How often do you attend anabaptism or bahai serv ices? Never 04/14/2022 Do you belong to any clubs o r organizations such as anabaptism groups, unions, fraternal or athletic groups, or [...] move on to questions 3-9 0 04/14/2022 [facility] Occupat ional Health - Occupational Stress [...] place to sleep or slept in a care home (including now)? 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
--- OUTSIDE RECORDS SUMMARY | 2024-06-25 06:49 | XMS_ITS | Encounter Summary ---
Author Organization [facility] Address [address] [place] [address]. [place] [address] [place] [address] Care Team Providers Care Database Reporting Consultant Name Role Phone FeleciaCandido kincaid Primary Care Provider [phone] Ambrocio Ashford MD Unavailable [phone] Encounter Details Date Type Department Care Team (Latest Contact Info) Description 04/24/2023 Travel Social History Tobacco Use Types Packs/Day [...] week 04/24/2023 How often do you attend anabaptism or quaker serv ices? Never 04/24/2023 Do you belong [...] [facility]at ional [facility] - [...] place to sleep or slept in a skilled nursing (including now)? 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
--- OUTSIDE RECORDS SUMMARY | 2024-06-25 06:49 | XMS_ITS | Encounter Summary ---
Author Organization [facility] Address [address] [place] [address]. [place] [address] [place] [address] Care Team Providers Care Certified Nurses Aide Name Role Phone FeleciaCandido kincaid Primary Care Provider [phone] Ambrocio Ashford MD Unavailable [phone] Encounter Details Date Type Department Care Team (Latest Contact Info) Description 10/27/2022 Travel Social History Tobacco Use Types Packs/Day [...] week 04/14/2022 How often do you attend episcopalian or confucianism serv ices? Never 04/14/2022 Do you belong to any clubs o r organizations such as episcopalian groups, unions, fraternal or athletic groups, or [...] move on to questions 3-9 0 04/14/2022 [facility] of Occupat ional Health - Occupational Stress [...] slept in a correction (including now)? 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 No / Unsure 10/27/2022 5:40 PM CDT documented as of this encounter Functional Status * RETIRED Are [...] Torre RN Active documented in this encounter Plan [...] documented as of this encounter Care Teams Certified Nurses Aide Relationship Specialty Start Date End Date Candido Hayes DO [address] [place] [address] PCP - General FAMILY PRACTICE 04/14/22 Ambrocio Ashford MD [address] [place] [address] INTERNAL MEDICINE 10/27/22 documented as of this encounter
--- OUTSIDE RECORDS SUMMARY | 2024-06-25 06:50 | XMS_ITS | Encounter Summary ---
Author Organization [facility] Address [address] [place] [address]. [place], [place] [address] [place] [address] Care Team Providers Care Distribution Specialist Name Role Phone Jazmin Tyson [facility] Primary Care Provider [phone] Encounter Details Date Type Department Care Team (Latest Contact Info) Description 10/01/2019 Travel Social History Tobacco Use Types Packs/Day Years Used Date Smoking Tobacco: Never Assessed Sex and Gender Information Value Date Recorded Sex Assigned at Not on file Legal Sex Male 5:44 PM MIND READER Gender Identity Male 04/14/2022 9:23 PM CDT Sexual Orientation Straight 04/14/2022 9: 23 PM CDT COVID-19 Exposure Response Date Recorded In the last month, have you been in contact with someone who was confirmed or suspected to have Coronavirus / COVID-19? No / Unsure 10/01/2019 12:49 PM CDT documented as of this encounter Plan of Treatment Not on file documented as of this encounter Visit Diagnoses Not on filedocumented in this encounter Care Teams Distribution Specialist Relationship Specialty Start Date End Date Jazmin Tyson FNP-BC [address] [place] [address] PCP - General NURSE PRACTITIONER 05/09/19 04/13/22 documented as of this encounter
--- OUTSIDE RECORDS SUMMARY | 2024-06-25 06:50 | XMS_ITS | Encounter Summary ---
Author Organization [facility] Address [address] [place] [address]. [place] [address] [place] [address] Care Team Providers Care Screen Printing Paster Name Role Phone Unavailable Primary Care Provider Unavailabl e Encounter Details Date Type Department Care Team (Late st Contact Info) Description 10/19/2006 Abstract [facility] [address] [place] [address] Stiven Petersen MD [address] [place] [address] Social History Tobacco Use Types Packs/Day Years Used Date Smoking Tobacco: Never Assessed Sex and Gender Information Value Date Recorded Sex Assigned at Not on file Legal Sex Male 5:44 PM 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
--- OUTSIDE RECORDS SUMMARY | 2024-06-25 06:50 | XMS_ITS | Encounter Summary ---
Author Organization [facility] Address [address] [place] [address]. 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
--- OUTSIDE RECORDS SUMMARY | 2024-06-25 06:50 | XMS_ITS | Encounter Summary ---
Author Organization [facility] Address [address] [place] [address]. [place] [address] [place] [address] Care Team Providers Care Delivery And Mail Sorter Name Role Phone Unavailable Primary Care Provider Unavailabl e Encounter Details Date Type Department Care Team (Late st Contact Info) Description 10/22/1996 Abstract [facility] [address] [place] [address] , Generic Conversion, Social History Tobacco Use Types Packs/Day Years Used Date Smoking Tobacco: Never Assessed Sex and Gender Information Value Date Recorded Sex Assigned at Not on file Legal Sex Male 5:44 PM INSPECTOR EYEGLASS Gender Identity Male 04/14/2022 9:23 PM CDT Sexual Orientation Straight 04/14/2022 9: 23 PM CDT documented as of this encounter Plan of Treatment Not on file documented as of this encounter Visit Diagnoses Not on filedocumented in this encounter
--- OUTSIDE RECORDS SUMMARY | 2024-06-25 06:50 | XMS_ITS | Encounter Summary ---
Author Organization [facility] Address [address] [place] [address]. [place], [place] [address] [place] [address] Care Team Providers Care Retail Advertising Account Executive Name Role Phone Jazmin Tyson Primary Care Provider [phone] Reason for Referral * Imaging (Routine) - Closed Specialty Diagnoses / Procedures Referred By Kirkac megan Referred To Contact RADIOLOGY Diagnoses Left groin mass Procedures US GROIN NON VASCULAR US TESTICULAR Jazmin Tyson FNP-BC [address] [place] [address] Phone: tel: fax: Referral ID Status Reason Start Date Expiration Date Visits Re quested Visits Authorized [id number] Closed 05/04/2019 06/03/2020 1 1 TESTER Reason for Visit * Imaging (Routine) - Closed Specialty Diagnoses / Procedures Referred By Contac t Referred To Contact RADIOLOGY Diagnoses Left groin mass Procedures US GROIN NON VASCULAR US TESTICULAR Jazmin Tyson FNP-BC [address] [place] [address] Phone: tel: fax: Referral ID Status Reason Start Date Expiration Date Visits Re quested Visits Authorized [id number] Closed 05/04/2019 06/03/2020 1 1 Encounter Details Date Type Department Care Team (Latest Contact Info) Description 05/17/2019 2:30 PM BAG TESTER - 05/17/2019 11:59 PM BAG TESTER Hospital Encounter [facility] [address] [place] [address] Jazmin Tyson FNP-BC [address] [place] [address] Discharge Disposition: Home or Self Care (Routine Discharge) Social History Tobacco Use Types Packs/Day Years Used Date Smoking Tobacco: Never Assessed Sex and Gender Information Value Date Recorded Sex Assigned at Not on file Legal Sex Male 5:44 PM BAG TESTER Gender Identity Male 04/14/2022 9:23 PM CDT Sexual Orientation Straight 04/14/2022 9: 23 PM CDT documented as of this encounter Plan of Treatment Not on file documented as of this encounter Procedures Procedure Name Priority Date/Time Associated Diagnosis Comments US GROIN NON VASCULAR Routine 05/17/2019 2:58 PM BAG TESTER Left groin mass documented in this encounter Results * US GROIN NON VASCULAR (05/17/2019 2:58 PM BAG TESTER) Anatomical Region Laterality Modality Pelvis Ultrasound 05/18/2019 9:52 AM BAG TESTER Impressions 05/18/2019 9:53 AM BAG TESTER IMPRESSION: 1) There is no significant sonographic abnormality correspond with perceived palpable abnormality left inguinal region. If indicated correlation with noncontrast CT pelvis may be helpful in further evaluation. Interpreted By: Spencer Aranda MD, 05/18/2019 9:52 AM Narrative 05/18/2019 9:53 AM BAG TESTER Examination: US GROIN NON VASCULAR Exam time: 05/17/2019 2:58 PM Clinical history: Evaluation for possible palpable abnormality left groin Comparison: None Technique: Longitudinal and transverse grayscale images of the left inguinal region obtained. Color Doppler. Comparison images of the right inguinal region. Findings: Images in the region of the palpable abnormality left inguinal region demonstrate normal skin and subcutaneous fat. There is no evidence of a soft tissue mass lesion or adenopathy. No evidence of a cyst or abscess. No significant sonographic abnormality is demonstrated. Procedure Note Spencer Aranda MD - 05/18/2019 Examination: US GROIN NON VASCULAR Exam time: 05/17/2019 2:58 PM Clinical history: Evaluation for possible palpable abnormality left groin Comparison: None Technique: Longitudinal and transverse grayscale images of the left inguinal region obtained. Color Doppler. Comparison images of the right inguinal region. Findings: Images in the region of the palpable abnormality left inguinal region demonstrate normal skin and subcutaneous fat. There is noevidence of a soft tissue mass lesion or adenopathy. No evidence of a cyst or abscess. No significant sonographic abnormality is demonstrated. IMPRESSION: 1) There is no significant sonographic abnormality correspond with perceived palpable abnormality left inguinal region. If indicated correlation with noncontrast CT pelvis may be helpful in further evaluation. Interpreted By: Spencer Aranda MD, 05/18/2019 9:52 AM Jazmin SMITH ULTRASOUND Final Res ult documented in this encounter Visit Diagnoses Diagnosis Left groin mass documented in this encounter Care Teams Retail Advertising Account Executive Relationship Specialty Start Date End Date Jazmin Tyson FNP-BC [address] [place] [address] PCP - General NURSE PRACTITIONER 05/09/19 04/13/22 documented as of this encounter
--- OUTSIDE RECORDS SUMMARY | 2024-06-25 06:50 | XMS_ITS | Encounter Summary ---
Author Organization [facility] Address [address] [place] [address]. [place] [address] [place] [address] Care Team Providers Care Highway Safety Engineer Name Role Phone Darryl Epps [facility] Primary Care Provider [phone] Reason for Visit * Reason Comments Medical Problem * Auth/Cert Specialty Diagnoses / Procedures Referred By Contmurray t Referred To Contact Diagnoses Hypokalemia Hodgkin's lymphoma ([facility]) Community acquired pneumonia Polysubstance abuse ([facility]) Hypokalemia Procedures GENERAL Preethi Horowitz MD [address] [place] [phone] Phone: tel: fax: Referral ID Status Reason Start Date Expiration Date Visits Re quested Visits Authorized [id number] 1 Encounter Details Date Type Department Care Team (Late st Contact Info) Description 04/05/2022 6:36 PM CDT - 04/06/2022 2:15 PM CDT Emergency [place] [facility] [address] [place] [address] Makayla Burgos, DO [address] [place] [address] Preethi Horowitz MD [address] [place] [phone] Medical Problem Discharge Disposition: Home or Self Care (Routine Discharge) Social History Tobacco Use Types Packs/Day Years Used Date Smoking Tobacco: Every Day Cigarettes Smokeless Tobacco: Never Alcohol Use Standard Drinks/Week Comments Yes 0 (1 standard drink = 0.6 oz pur e alcohol) Sex and Gender Information Value Date Recorded Sex Assigned at Not on file Legal Sex Male 5:44 PM MONOLOGIST Gender Identity Male 04/14/2022 9:23 PM CDT Sexual Orientation Straight 04/14/2022 9: 23 PM CDT COVID-19 Exposure Response Date Recorded In the last 10 days, have yo u been in contact with someone who was confirmed or suspected to have Coronavirus/COVID-19? No / Unsure 04/05/2022 10:50 PM CDT documented as of this encounter Last Filed Vital Signs Vital Sign Reading Time Taken Comments Blood Pressure 118/71 04/06/2022 5:40 AM CDT Pulse 101 04/06/2022 11:00 AM CDT Temperature 37.4 ??C (99.4 ??F) 04/06/2022 12:00 AM C DT Respiratory Rate 22 04/06/2022 2:00 PM CDT Oxygen Saturation 95% 04/05/2022 10:49 PM CDT Inhaled Oxygen Concentration - - Weight 71.7 kg (158 lb) 04/06/2022 7:41 AM CDT Height 167.6 cm (5' 6 ) 04/06/2022 7:41 AM CDT Body Mass Index 25.5 04/06/2022 7:41 AM CDT documented in this encounter Functional Status * Question Answer Date of Assessment Author Status Do you have serious difficulty walking or climbing stairs? No 04/05/2022 10:59 PM CDT Willian Collins RN A ctive * Question Answer Date of Assessment Author Status Do you have difficulty dressing or bathing? No 04/05/2022 10:59 PM CDT Willian Collins RN Active Because of a physical, mental, or emotional condition, do you have difficulty doing errands alone such as visiting a doctor's office or shopping? No 04/05/2022 10:59 PM CDT Willian Collins RN Ac tive * RETIRED Are you deaf or do you have serious difficulty hearing Answer Date of Assessment Author Status No 04/05/2022 10:59 PM CDT Acti ve * RETIRED Are you blind or do you have serious difficulty seeing, even when wearing glasses? Answer Date of Assessment Author Status No 04/05/2022 10:59 PM CDT Acti ve * Do you have serious difficulty walking or climbing stairs? Answer Date of Assessment Author Status No 04/05/2022 10:59 PM LIZBETHT Willian Collins RN Active * Do you have difficulty dressing or bathing? Answer Date of Assessment Author Status No 04/05/2022 10:59 PM Willian Britt RN Active * Because of a physical, mental, or emotional condition, do you have difficulty doing errands alone such as visiting a doctor's office or shopping? Answer Date of Assessment Author Status No 04/05/2022 10:59 PM Willian Britt RN Active documented as of this encounter Mental Status * Question Answer Entry Date Author Status Because of a physical, mental, or emotional condition, do you have serious difficulty concentrating, remembering, or making decisions? No 04/05/2022 10:59 PM Willian Britt RN Active * Because of a physical, mental, or emotional condition, do you have serious difficulty concentrating, remembering, or making decisions? Answer Entry Date Author Status No 04/05/2022 10:59 PM Willian Britt RN Active documented in this encounter Discharge Summaries * DREA Cabral - 04/06/2022 1:32 PM CDT Images from the original note were not included. Physician Discharge Summary Patient ID: Crystal Capone. male. 1990. Admit date: 04/05/2022 6:36 PM Discharge date and time: 04/06/22 Admitting Physician: Preethi Horowitz MD Primary Care Physician[facility] Attending Provider: Preethi Horowitz MD Discharge Physician: [facility] Horowitz[facility] Primary Diagnoses: Hypokalemia Secondary Diagnosis: Left-sided pneumonia Positive drug screen Admission Condition: fair Discharged Condition: Good Code Status: Full Code Indication for Admission: Chief Complaint Patient presents with ??? Medical Problem Reason for hospitalization: Shortness of breath cough and hypokalemia Hospital Course: See H&P for full detail Consults: none Significant Diagnostic Studies: Radiology Results (Last 30 days) 04/05/221934 XR CHEST PORTABLE Final result Impression: IMPRESSION: Hazy opacities in the mid to lower left lung, likely representing pneumonia. Dictated By: Yomi Rosales on 04/05/2022 7:36 PM The attending radiologist has reviewed the image(s) and agrees with the content of this report. Ordered By: MAKAYLA BURGOS Interpreted By: Yomi Rosales, 04/05/2022 7:36 PM Vital Signs at Discharge: Filed Vitals: 04/06/22 0753 04/06/22 0842 04/06/22 0959 04/06/22 1100 BP: Pulse: 101 101 Resp: 20 20 18 20 Temp: TempSrc: SpO2: Weight: Height: Last labs past 24 hours: Recent Results (from the past 24 hour(s)) CBC W/DIFF AUTOMATED Collection Time: 04/05/22 7:30 PM Result Value Ref Range WBC 18.5 (H) 4.0 - 10.8 x10'3/uL RBC 3.55 (L) 4.50 - 6.10 x10'6/uL HGB 7.4 (L) 13.0 - 18.0 G/DL HCT 24.8 (L) 37.0 - 52.0 % MCV 69.9 (L) 78.0 - 100.0 FL MCH 20.8 (L) 27.0 - 31.0 PG MCHC 29.8 (L) 33.0 - 36.0 G/DL RDW 17.0 (H) 11.5 - 14.5 % PLT 452 (H) 150 - 350 x10'3/uL MPV 9.0 7.4 - 10.4 FL Differential Comment NORMAL REFERENCE RANGE NOT ESTABLISHED FOR THE PROPORTIONAL LEUKOCYTE DIFFERENTIAL. SEG NEUTROPHILS 88.1 % LYMPHOCYTES 2.4 % MONOCYTES 7.1 % EOSINOPHILS 0.4 % BASOPHILS 0.2 % IMMATURE GRANS 1.8 % NRBC 0.0 % ABS. NEUTROPHILS 16.34 (H) 1.60 - 8.30 x10'3/uL ABS. LYMPHOCYTES 0.45 (L) 0.80 - 4.70 x10'3/uL ABS. MONOCYTES 1.32 0.00 - 1.50 x10'3/uL ABS. EOSINOPHILS 0.07 0.00 - 0.40 x10'3/uL ABS. BASOPHILS 0.03 0.00 - 0.20 x10'3/uL ABS. IMMATURE GRANULOCYTES 0.33 (H) 0.00 - 0.03 x10'3/uL ABS. NUCLEATED RBC'S 0.00 0.00 x10'3/uL COMPREHENSIVE METABOLIC PANEL Collection Time: 04/05/22 7:30 PM Result Value Ref Range SODIUM 134 (L) 136 - 145 MMOL/L POTASSIUM 2.7 (LL) 3.5 - 5.1 MMOL/L CHLORIDE S/P/B 94 (L) 98 - 107 MMOL/L CO2 30.9 21.0 - 32.0 MMOL/L GLUCOSE 133 (H) 70 - 99 MG/DL BUN 7 6 - 24 MG/DL CREATININE S/P/B 1.03 0.70 - 1.30 MG/DL CALCIUM 8.2 (L) 8.4 - 10.5 MG/DL BILIRUBIN TOTAL S/P/B 0.6 0.2 - 1.0 MG/DL ALKALINE PHOSPHATASE S/P/B 242 (H) 45 - 115 U/L AST 19 15 - 37 U/L ALT 11 (L) 16 - 63 U/L TOTAL PROTEIN S/P/B 7.3 6.4 - 8.2 G/DL ALBUMIN S/P/B 1.8 (L) 3.4 - 5.0 G/DL ANION GAP 9.1 5.0 - 15.0 MMOL/L OSMOLALITY (CALC) 278 MOSM/KG GFR ESTIMATE >90 >89 ML/MIN/1.73 M2 GFR NOTES GFR REFERENCES: SED RATE, ERYTHROCYTE (ESR) Collection Time: 04/05/22 7:30 PM Result Value Ref Range ESR >140 (H) 0 - 20 MM/HR LACTIC ACID Collection Time: 04/05/22 7:30 PM Result Value Ref Range LACTIC ACID 1.0 0.4 - 2.0 MMOL/L ETHANOL Collection Time: 04/05/22 7:30 PM Result Value Ref Range Alcohol <0.003 <0.003 G/DL URINALYSIS WI REFLEX TO CULTURE Collection Time: 04/05/22 8:01 PM Specimen: URINE, CLEAN CATCH Result Value Ref Range COLOR (U) DARK YELLOW TRANSPARENCY CLEAR Specific [place] (U) 1.015 1.000 - 1.025 U PH 6.0 5.0 - 8.0 LEUKOCYTE ESTERASE NEGATIVE NEGATIVE NITRITES NEGATIVE NEGATIVE PROTEIN (U) 2+ (A) NEGATIVE URINE GLUCOSE NEGATIVE NEGATIVE U KETONES NEGATIVE NEGATIVE UROBILINOGEN 8.0 (H) <1.0 EU/DL BLOOD TRACE (A) NEGATIVE WBC/HPF 0-5 0 - 5 /HPF RBC/HPF 0-5 0 - 5 /HPF EPI/LPF RARE /LPF BACTERIA (URINE) TRACE /HPF BILIRUBIN (U) NEGATIVE NEGATIVE CULTURE & SENSITIVITY INDICATED? NOT INDICATED DRUG SCREEN RAPID Collection Time: 04/05/22 8:01 PM Result Value Ref Range CANNABINOIDS SCREEN (U) POSITIVE (A) NEGATIVE PHENCYCLIDINE PCP (U) NEGATIVE NEGATIVE COCAINE METABOLITES (U) NEGATIVE NEGATIVE METHAMPHETAMINE (U) POSITIVE (A) NEGATIVE OPIATE SCREEN (U) POSITIVE (A) NEGATIVE AMPHETAMINE (U) POSITIVE (A) NEGATIVE BENZODIAZEPINES SCREEN (U) NEGATIVE NEGATIVE TRICYCLIC ANTIDEPRESSANT SCREEN (U) NEGATIVE NEGATIVE METHADONE (U) NEGATIVE NEGATIVE BARBITURATES SCREEN (U) NEGATIVE NEGATIVE OXYCODONE SCREEN (U) NEGATIVE NEGATIVE PROPOXYPHENE SCREEN (U) NEGATIVE NEGATIVE URINE TOX COMMENT THIS TEST METHODOLOGY IS DESIGNED AND OFFERED A RAPID TURNAROUND, QUALITATIVE SCREENING PROCEDURE TO AID IN THE IMMEDIATE MEDICAL ASSESSMENT OF PATIENTS SUSPECTED OF SUBSTANCE ABUSE. CORONAVIRUS (COVID-19) ANTIGEN DIRECT OPTICAL Collection Time: 04/05/22 9:55 PM Specimen: NASAL Result Value Ref Range CORONAVIRUS ANTIGEN IA NEGATIVE NEGATIVE Specimen Type NASAL FIRST TEST YES EMPLOYED IN HEALTHCARE NO SYMPTOMATIC DEFINED BY CDC YES DATE OF SYMPTOM ONSET [id number] HOSPITALIZATION STATUS YES PATIENT IN ICU NO RESIDENT OF [facility] NO CBC W/DIFF AUTOMATED Collection Time: 04/06/22 6:08 AM Result Value Ref Range WBC 21.9 (H) 4.0 - 10.8 x10'3/uL RBC 4.01 (L) 4.50 - 6.10 x10'6/uL HGB 8.2 (L) 13.0 - 18.0 G/DL HCT 28.5 (L) 37.0 - 52.0 % MCV 71.1 (L) 78.0 - 100.0 FL MCH 20.4 (L) 27.0 - 31.0 PG MCHC 28.8 (L) 33.0 - 36.0 G/DL RDW 17.4 (H) 11.5 - 14.5 % PLT 549 (H) 150 - 350 x10'3/uL MPV 9.4 7.4 - 10.4 FL Differential Comment NORMAL REFERENCE RANGE NOT ESTABLISHED FOR THE PROPORTIONAL LEUKOCYTE DIFFERENTIAL. SEG NEUTROPHILS 87.5 % LYMPHOCYTES 3.0 % MONOCYTES 7.6 % EOSINOPHILS 0.3 % BASOPHILS 0.2 % IMMATURE GRANS 1.4 % NRBC 0.0 % ABS. NEUTROPHILS 19.16 (H) 1.60 - 8.30 x10'3/uL ABS. LYMPHOCYTES 0.66 (L) 0.80 - 4.70 x10'3/uL ABS. MONOCYTES 1.66 (H) 0.00 - 1.50 x10'3/uL ABS. EOSINOPHILS 0.07 0.00 - 0.40 x10'3/uL ABS. BASOPHILS 0.04 0.00 - 0.20 x10'3/uL ABS. IMMATURE GRANULOCYTES 0.31 (H) 0.00 - 0.03 x10'3/uL ABS. NUCLEATED RBC'S 0.00 0.00 x10'3/uL PLT MORPH. NORMAL RBC MORPHOLOGY 2+ COMPREHENSIVE METABOLIC PANEL Collection Time: 04/06/22 6:08 AM Result Value Ref Range SODIUM 135 (L) 136 - 145 MMOL/L POTASSIUM 3.3 (L) 3.5 - 5.1 MMOL/L CHLORIDE S/P/B 94 (L) 98 - 107 MMOL/L CO2 29.8 21.0 - 32.0 MMOL/L GLUCOSE 100 (H) 70 - 99 MG/DL BUN 6 6 - 24 MG/DL CREATININE S/P/B 1.06 0.70 - 1.30 MG/DL CALCIUM 8.4 8.4 - 10.5 MG/DL BILIRUBIN TOTAL S/P/B 0.7 0.2 - 1.0 MG/DL ALKALINE PHOSPHATASE S/P/B 259 (H) 45 - 115 U/L AST 20 15 - 37 U/L ALT 11 (L) 16 - 63 U/L TOTAL PROTEIN S/P/B 7.9 6.4 - 8.2 G/DL ALBUMIN S/P/B 2.0 (L) 3.4 - 5.0 G/DL ANION GAP 11.2 5.0 - 15.0 MMOL/L OSMOLALITY (CALC) 278 MOSM/KG GFR ESTIMATE >90 >89 ML/MIN/1.73 M2 GFR NOTES GFR REFERENCES: Discharge Medications: Medication List START taking these medications Morning Afternoon Evening Bedtime As Needed albuterol sulfate HFA 108 (90 Base) MCG/ACT inhaler Inhale 2 puffs into the lungs every 6 (six) hours as needed for Wheezing. doxycycline monohydrate 100 MG capsule Take 1 capsule (100 mg total) by mouth 2 (two) times daily for 7 days. potassium chloride CR 10 MEQ tablet Commonly known as: KLOR-CON M Take 1 tablet (10 mEq total) by mouth daily for 14 days. Last time this was given: 20 mEq on April 06, 2022 7:45 AM Medications Discontinued during this hospitalization: Disposition: discharged to home Durable Medical Equipment Needed: Patient Instructions: Activity: activity as tolerated Diet: regular diet Wound Care: none needed Follow-up appointments: Follow-up with PCP in 1 week Findings that require further workup: Pneumonia resolution Followup Lab Orders: None Time Spent on Discharge Less than 30 minutes Signed: DWIGHT CABRAL Cosigned by Preethi Horowitz MD at 04/06/2022 2:12 PM CDT Associated attestation - Preethi Horowitz MD - 04/06/2022 2:12 PM CDT I, Preethi Horowitz MD personally interviewed and examined the patient, reviewed the hospital tests. I reviewed with the Nurse Practitioner the findings, plan of care and orders. I agree with planof care unless otherwise noted. documented in this encounter Medications at Time of Discharge albuterol sulfate HFA 108 (90 Base) MCG/ACT inhaler Inhale 2 puffs into the lungs every 6 (six) hours as needed for Wheezing. 8 g 04/06/2022 12/15/2022 doxycycline monohydrate 100 MG capsule Take 1 capsule (100 mg total) by mouth 2 (two) times daily for 7 days. 14 capsule 04/06/2022 04/13/2022 potassium chloride CR (KLOR-CON M) 10 MEQ tablet Take 1 tablet (10 mEq total) by mouth daily for 14 days. 14 tablet 04/06/2022 04/20/2022 documented as of this encounter Progress Notes * Rama Chahal RN - 04/06/2022 12:39 PM CDT Patient is awake, but lethargic. Sitting up in bed, rocking back and forth. He is jittery. Introduced self and explained purpose of assessment. Patient states he lives with his aunt in a house in [place]. He is independent and is able to care for himself. He states he will return home and states, I will find someone to come get me . Spoke to patient about his substance abuse. He denies needing help with this and states, I have some things going on that are making me want to take better care of myself . He does agree to look at resources regarding help for SA treatment programs. Pamphlet from [employer] [employer] and Info card from [facility] provided to patient. 04/06/22 1225 Referral Data Referral Reason Discharge Planning Source of Information Patient;Chart review;Physician;Nurse Patient Information Primary Caregiver Self Support System Immediate family Baseline ADL's Functional Status Independent Living Arrangements Family members (Lives with his aunt) Type of Residence Private residence Ambulation Assistance No Bathing/Grooming Assistance No Dressing Assistance No Behavior Oriented;Cooperative;Lethargic Communication Talks;Understands speaking;Understands Malaysian Socioeconomic Needs Caregiver Needed No At Risk of Abuse or Neglect No Psychological Needs: Mental health concerns No Suspected Drug or Alcohol Abuse Yes Inappropriate Patient/Family Behaviors No Difficult Adjustment to Diagnosis No Recent Hospitalization Recent Hospitalization within 30 days No Anticipated Discharge Needs Change in Living Arrangements No In-Home Care or Equipment No Vocational and/or Role Loss No Inability to Complete ADL's No Anticipated DC Plan Living Arrangements Family members Support Systems Family members;Parent Type of Residence Private residence Assistance Needed No Patient expects to be discharged to: Home * Rama Chahal RN - 04/06/2022 9:28 AM CDT CM attempted to see patient and he was not able to be awakened. Met with PLUMBING ENGINEER and went back in with PLUMBING ENGINEER. Able to be awakened but only briefly to touch and saying his name several times, and he immediately dozes off again. Patient diaphoretic. CM will attempt assessment when patient is able to participate. * Willian Collins RN - 04/06/2022 4:47 AM CDT Problem: Discharge Planning Goal: Knowledge of discharge instructions Outcome: Progressing Goal: Participation in substance abuse program Outcome: Progressing Problem: Cognitive-Perceptual Pattern-Impaired Goal: Cognitive status restored to baseline Outcome: Progressing Problem: Coping-Ineffective, Individual Goal: Effective coping Outcome: Progressing Problem: Mood-Altered Goal: Mood stable Outcome: Progressing Problem: Sleep Pattern Disturbance Goal: Able to sleep at optimal level Outcome: Progressing documented in this encounter H&P Notes * ULYSSES Cabral-GRACE - 04/06/2022 8:28 AM CDT Admission History and Physical History Primary Care Provider: LUIS MIN Admitting Provider: Preethi Horowitz MD Attending Provider: Preethi Horowitz MD Admission date: 04/05/2022 6:36 PM Crystal Capone is a 32-year-old male with a history of Hodgkins lymphoma who presented to the ER with complaints of persistent coughing. He has been coughing up clear mucus. He denies any fevers orchills. The only thing that improves his cough is wrapping a warm blanket around his chest. He is unsure how long he has had it. He had a port a cath placed ~1 month ago and has not started any infusi ons. He denies injecting anything into his port. Past Medical History: Diagnosis Date ??? Hodgkin lymphoma, unspecified, unspecified site (CMS/HCC) History reviewed. No pertinent surgical history. Social History Tobacco Use ??? Smoking status: Current Every Day Smoker Types: Cigarettes ??? Smokeless tobacco: Never Used Substance Use Topics ??? Alcohol use: Yes ??? Drug use: Yes Types: Methamphetamines No family history on file. Prior to Admission medications Medication Sig Start Date End Date Taking? Authorizing Provider doxycycline monohydrate 100 MG capsule Take 1 capsule (100 mg total) by mouth 2 (two) times daily for 7 days. 04/06/22 04/13/22 Yes Preethi Horowitz MD potassium chloride CR (KLOR-CON M) 10 MEQ tablet Take 1 tablet (10 mEq total) by mouth daily for 14days. 04/06/22 04/20/22 Yes Preethi Horowitz MD ??? azithromycin 500 mg Intravenous Q24H ??? folic acid 1 mg Oral Daily Or ??? folic acid 1 mg Intravenous Daily ??? multivitamin 1 tablet Oral Daily ??? thiamine 100 mg Oral Daily Or ??? thiamine 100 mg Intravenous Daily LORazepam OR diazePAM, diazePAM No Known Allergies ROS 10 point ROS negative except otherwise specified in HPI Physical Exam Filed Vitals: 04/06/22 0000 04/06/22 0540 04/06/22 0741 04/06/22 0753 BP: 125/69 118/71 Pulse: 104 125 Resp: 20 20 20 Temp: 99.4 ??F (37.4 ??C) TempSrc: SpO2: Weight: 71.7 kg (158 lb) Height: 5' 6 (1.676 m) Physical Exam Vitals reviewed. Constitutional: General: He is not in acute distress. Appearance: He is well-developed. HENT: Head: Normocephalic and atraumatic. Eyes: General: Left eye: No discharge. Pupils: Pupils are equal, round, and reactive to light. Cardiovascular: Rate and Rhythm: Normal rate and regular rhythm. Pulses: Intact distal pulses. Posterior tibial pulses are 1+ on the right side and 1+ on the left side. Heart sounds: Normal heart sounds, S1 normal and S2 normal. No murmur heard. Pulmonary: Effort: Pulmonary effort is normal. No respiratory distress. Breath sounds: No wheezing. Abdominal: General: Bowel sounds are normal. Palpations: Abdomen is soft. Musculoskeletal: General: Normal range of motion. Cervical back: Normal range of motion. Skin: General: Skin is warm and moist. Neurological: Mental Status: He is oriented to person, place, and time and easily aroused. Recent Labs Lab 04/05/22192904/06/22 0608 WBC 18.5* 21.9* RBC 3.55* 4.01* HGB 7.4* 8.2* HCT 24.8* 28.5* MCV 69.9* 71.1* MCH 20.8* 20.4* MCHC 29.8* 28.8* PLT 452* 549* RDW 17.0* 17.4* MPV 9.0 9.4 NEUC 16.34* 19.16* LYMC 0.45* 0.66* MONOC 1.32 1.66* EOSC 0.07 0.07 BASOC 0.03 0.04 Recent Labs Lab 04/05/22192904/06/22 0608 NA 134* 135* K 2.7* 3.3* CL 94* 94* CO2 30.9 29.8 AGAP 9.1 11.2 BUN 7 6 CR 1.03 1.06 GLU 133* 100* CA 8.2* 8.4 TP 7.3 7.9 ALB 1.8* 2.0* TBIL 0.6 0.7 ALKP 242* 259* AST 19 20 ALT 11* 11* No results for input(s): APTT, INR in the last 168 hours. Invalid input(s): PT No results for input(s): TROP, TROPIWB in the last 168 hours. Recent Labs Lab 04/06/22 0608 NA 135* K 3.3* CL 94* CO2 29.8 BUN 6 CR 1.06 CA 8.4 GLU 100* AGAP 11.2 TP 7.9 ALB 2.0* ALT 11* WBC 21.9* HGB 8.2* PLT 549* No results found for this or any previous visit. No results found for this visit on 04/05/22 (from the past 840 hour(s)). No results found for this visit on 04/05/22 (from the past 840 hour(s)). No results found. Assessment Active Problems: Hypokalemia SNOMED CT(R): HYPOKALEMIA Plan #Hypokalemia ?? Potassium 2.7 on admission ?? Improved after supplementation, now 3.3 ?? Telemetry stable, EKG stable #Left-sided pneumonia ?? Hazy opacities in the mid to lower left lung on chest x-ray ?? Started on Zithromax and Rocephin in ER (day 1), continue ?? Transition to doxycycline as outpatient ?? T-max 99.7 ??F ?? Add albuterol inhaler #Positive drug screen ?? Drug screen positive for amphetamine, cannabinoids, methamphetamines, and opiates ?? CIWA protocol ?? Case management following ?? Encourage cessation #Hodgkin's lymphoma ?? Defer to oncologist as outpatient Plan: DC home today DWIGHT CABRAL Cosigned by Preethi Horowitz MD at 04/06/2022 2:11 PM CDT Associated attestation - Preethi Horowitz MD - 04/06/2022 2:11 PM CDT I, Preethi Horowitz MD personally interviewed and examined the patient, reviewed the hospital tests. I reviewed with the Nurse Practitioner the findings, plan of care and orders. I agree with planof care unless otherwise noted. documented in this encounter ED Notes * Fe Butcher RN - 04/05/2022 10:13 PM CDT Charge nurse contacted for bed placement. * Makayla Burgos DO - 04/05/2022 6:49 PM CDT Chief Complaint Chief Complaint Patient presents with ??? Medical Problem History of Present Illness 32-year-old male presents to the emergency department complaining of tenderness at his Port-A-Cath site. Patient reports that he had the port placed over a month ago and it has not been accessed for any reason since then. He tells the nurse that his oncologist has not contacted him regarding setting up the chemotherapy for his lymphoma. Patient states that he has not injected anything into the port, but he does admit to methamphetamine abuse. Patient states that he stopped drinking, smoking, and using meth yesterday. Patient also reported to the nurse that she was coughing and having abdominal pain, but he denies any issues outside of the tender port site when evaluated. Patient denies any fever, chills. History provided by: Patient History limited by: Mental status change science center display builder used: No Medical History ALLERGIES: No Known Allergies MEDICATIONS: Prior to Admission medications Not on File PAST MEDICAL HISTORY: Past Medical History: Diagnosis Date ??? Hodgkin lymphoma, unspecified, unspecified site (CMS/HCC) PAST SURGICAL HISTORY: History reviewed. No pertinent surgical history. FAMILY HISTORY: No family history on file. SOCIAL HISTORY: Social History Tobacco Use ??? Smoking status: Current Every Day Smoker Types: Cigarettes ??? Smokeless tobacco: Never Used Substance Use Topics ??? Alcohol use: Yes ??? Drug use: Yes Types: Methamphetamines Review of Systems Review of Systems Unable to perform ROS: Mental status change Physical Exam Filed Vitals: 04/05/22 2030 04/05/22 2100 04/05/220 04/05/222148 BP: 133/82 128/79 135/82 Pulse: 108 Resp: Temp: TempSrc: SpO2: 95% 93% (!) 87% Physical Exam Vitals and nursing note reviewed. Constitutional: General: He is not in acute distress. Appearance: He is well-developed. He is not diaphoretic. Comments: Somnolent HENT: Head: Normocephalic and atraumatic. Eyes: Conjunctiva/sclera: Conjunctivae normal. Cardiovascular: Rate and Rhythm: Normal rate and regular rhythm. Heart sounds: Normal heart sounds. No murmur heard. Pulmonary: Effort: Pulmonary effort is normal. No respiratory distress. Breath sounds: Normal breath sounds. No wheezing or rales. Skin: Comments: Right chest Port-A-Cath with overlying predominantly healed incision, no erythema, induration, or fluctuance. Neurological: Mental Status: He is alert. Diagnostic Studies / Procedures ELECTROCARDIOGRAMS: Results for orders placed or performed during the hospital encounter of 04/05/22 ECG 12 lead Narrative [address] [place] [id number] Test Date: 2022-04-05 Pat Name: CRYSTAL PARSHALL Department: 3 Room: EXAM 505 Gender: Male General Internal Medicine Doctor: : 1990 Requested By: MAKAYLA BURGOS Order Number: [id number] Reading MD: Kaycee Oliver Measurements Intervals [place] Rate: 95 P: 43 OR: 100 QRS: 78 QRSD: 102 T: 52 QT: 356 QTc: 448 Interpretive Statements SINUS RHYTHM WITH SHORT OR INTERVAL INCOMPLETE RIGHT BUNDLE BRANCH BLOCK Minimal ST Depression Anterolateral Leads LABORATORY STUDIES: Results for orders placed or performed during the hospital encounter of 04/05/22 CBC W/DIFF AUTOMATED Result Value Ref Range WBC 18.5 (H) 4.0 - 10.8 x10'3/uL RBC 3.55 (L) 4.50 - 6.10 x10'6/uL HGB 7.4 (L) 13.0 - 18.0 G/DL HCT 24.8 (L) 37.0 - 52.0 % MCV 69.9 (L) 78.0 - 100.0 FL MCH 20.8 (L) 27.0 - 31.0 PG MCHC 29.8 (L) 33.0 - 36.0 G/DL RDW 17.0 (H) 11.5 - 14.5 % PLT 452 (H) 150 - 350 x10'3/uL MPV 9.0 7.4 - 10.4 FL Differential Comment NORMAL REFERENCE RANGE NOT ESTABLISHED FOR THE PROPORTIONAL LEUKOCYTE DIFFERENTIAL. SEG NEUTROPHILS 88.1 % LYMPHOCYTES 2.4 % MONOCYTES 7.1 % EOSINOPHILS 0.4 % BASOPHILS 0.2 % IMMATURE GRANS 1.8 % NRBC 0.0 % ABS. NEUTROPHILS 16.34 (H) 1.60 - 8.30 x10'3/uL ABS. LYMPHOCYTES 0.45 (L) 0.80 - 4.70 x10'3/uL ABS. MONOCYTES 1.32 0.00 - 1.50 x10'3/uL ABS. EOSINOPHILS 0.07 0.00 - 0.40 x10'3/uL ABS. BASOPHILS 0.03 0.00 - 0.20 x10'3/uL ABS. IMMATURE GRANULOCYTES 0.33 (H) 0.00 - 0.03 x10'3/uL ABS. NUCLEATED RBC'S 0.00 0.00 x10'3/uL COMPREHENSIVE METABOLIC PANEL Result Value Ref Range SODIUM 134 (L) 136 - 145 MMOL/L POTASSIUM 2.7 (LL) 3.5 - 5.1 MMOL/L CHLORIDE S/P/B 94 (L) 98 - 107 MMOL/L CO2 30.9 21.0 - 32.0 MMOL/L GLUCOSE 133 (H) 70 - 99 MG/DL BUN 7 6 - 24 MG/DL CREATININE S/P/B 1.03 0.70 - 1.30 MG/DL CALCIUM 8.2 (L) 8.4 - 10.5 MG/DL BILIRUBIN TOTAL S/P/B 0.6 0.2 - 1.0 MG/DL ALKALINE PHOSPHATASE S/P/B 242 (H) 45 - 115 U/L AST 19 15 - 37 U/L ALT 11 (L) 16 - 63 U/L TOTAL PROTEIN S/P/B 7.3 6.4 - 8.2 G/DL ALBUMIN S/P/B 1.8 (L) 3.4 - 5.0 G/DL ANION GAP 9.1 5.0 - 15.0 MMOL/L OSMOLALITY (CALC) 278 MOSM/KG GFR ESTIMATE >90 >89 ML/MIN/1.73 M2 GFR NOTES GFR REFERENCES: SED RATE, ERYTHROCYTE (ESR) Result Value Ref Range ESR >140 (H) 0 - 20 MM/HR LACTIC ACID Result Value Ref Range LACTIC ACID 1.0 0.4 - 2.0 MMOL/L ETHANOL Result Value Ref Range Alcohol <0.003 <0.003 G/DL URINALYSIS WI REFLEX TO CULTURE Specimen: URINE, CLEAN CATCH Result Value Ref Range COLOR (U) DARK YELLOW TRANSPARENCY CLEAR Specific [place] (U) 1.015 1.000 - 1.025 U PH 6.0 5.0 - 8.0 LEUKOCYTE ESTERASE NEGATIVE NEGATIVE NITRITES NEGATIVE NEGATIVE PROTEIN (U) 2+ (A) NEGATIVE URINE GLUCOSE NEGATIVE NEGATIVE U KETONES NEGATIVE NEGATIVE UROBILINOGEN 8.0 (H) <1.0 EU/DL BLOOD TRACE (A) NEGATIVE WBC/HPF 0-5 0 - 5 /HPF RBC/HPF 0-5 0 - 5 /HPF EPI/LPF RARE /LPF BACTERIA (URINE) TRACE /HPF BILIRUBIN (U) NEGATIVE NEGATIVE CULTURE & SENSITIVITY INDICATED? NOT INDICATED DRUG SCREEN RAPID Result Value Ref Range CANNABINOIDS SCREEN (U) POSITIVE (A) NEGATIVE PHENCYCLIDINE PCP (U) NEGATIVE NEGATIVE COCAINE METABOLITES (U) NEGATIVE NEGATIVE METHAMPHETAMINE (U) POSITIVE (A) NEGATIVE OPIATE SCREEN (U) POSITIVE (A) NEGATIVE AMPHETAMINE (U) POSITIVE (A) NEGATIVE BENZODIAZEPINES SCREEN (U) NEGATIVE NEGATIVE TRICYCLIC ANTIDEPRESSANT SCREEN (U) NEGATIVE NEGATIVE METHADONE (U) NEGATIVE NEGATIVE BARBITURATES SCREEN (U) NEGATIVE NEGATIVE OXYCODONE SCREEN (U) NEGATIVE NEGATIVE PROPOXYPHENE SCREEN (U) NEGATIVE NEGATIVE URINE TOX COMMENT THIS TEST METHODOLOGY IS DESIGNED AND OFFERED A RAPID TURNAROUND, QUALITATIVE SCREENING PROCEDURE TO AID IN THE IMMEDIATE MEDICAL ASSESSMENT OF PATIENTS SUSPECTED OF SUBSTANCE ABUSE. IMAGING STUDIES XR CHEST PORTABLE Final Result by User, [id number] (04/05 1949) Examination: XR CHEST PORTABLE Exam time: 04/05/2022 7:30 PM Clinical history: Cough, tender right chest [id number]. Comparison: Chest x-ray 09/30/2021 Technique: Portable upright AP view of the chest. Findings: There is a right chest wall Efdedl-k-[id number] with its tip projecting over the superior cavoatrial junction. Heart is normal in size. Pulmonary vasculature is within normal limits. There are hazy groundglass and consolidative opacities in the mid to lower left lung. No pneumothorax or pleural effusion. No acute osseous abnormality. IMPRESSION: Hazy opacities in the mid to lower left lung, likely representing pneumonia. Dictated By: Yomi Rosales on 04/05/2022 7:36 PM The attending radiologist has reviewed the image(s) and agrees with the content of this report. Ordered By: MAKAYLA BURGOS Interpreted By: Yomi Rosales, 04/05/2022 7:36 PM ED Course / Medical Decision Making MDM Number of Diagnoses or Management Options Community acquired pneumonia: new and requires workup Hodgkin's lymphoma (CMS/HCC): minor Hypokalemia: new and requires workup Polysubstance abuse (CMS/HCC): minor Amount and/or Complexity of Data Reviewed Clinical lab tests: reviewed and ordered Tests in the radiology section of CPT??: reviewed and ordered Tests in the medicine section of CPT??: reviewed and ordered Discuss the patient with other providers: yes Independent visualization of images, tracings, or specimens: yes Risk of Complications, Morbidity, and/or Mortality Presenting problems: moderate Diagnostic procedures: high Management options: high Patient Progress Patient progress: stable ED Course as of 04/05/222215 Sun Apr 05, [id number] Call initially placed to [facility] for transfer given the patient's comorbidities. Hospitalist, Dr. Clark, did not believe that the patient would require a higher level of care, although he was willing to accept the patient for transfer. Dr. Horowitz was therefore called and was willingto accept the patient for admission. To manage hypokalemia. Patient also found to have left-sided pneumonia for which Rocephin and azithromycin were started. CIWA protocol initiated at Dr. Horowitz's request as the patient had stated that he had stopped drinking, smoking, and using meth yesterday. [JW] ED Course User Index [JW] Makayla Burgos DO Clinical Impression Hypokalemia (Primary) Hodgkin's lymphoma (CMS/HCC) Community acquired pneumonia Polysubstance abuse (CMS/HCC) Disposition: Admit Makayla Burgos DO 04/05/222215 * Sarai Duncan RN - 04/05/2022 6:39 PM CDT PT ARRIVES PER EMS FROM HOME. PT CALLED EMS FOR A PORT PROBLEM . PT HAD [facility]- PORT PLACED IN FEBRUARY.PT STATES NOTHING HAS BEEN DONE WITH IT SINCE . PT PT CONCERNED BECAUSE ARE RED AND SWOLLEN. PT ALSO C/O ABD PAIN AND A COUGH. PT STATES QUIT DRINKING, SMOKING AND USING METH YESTERDAY. PT ANXIOUSAT TRIAGE. documented in this encounter Plan of Treatment Not on file documented as of this encounter Procedures Procedure Name Priority Date/Time Associated Diagnosis Comments COMPREHENSIVE METABOLIC PANEL STAT 04/06/2022 6:08 AM CDT CBC W/DIFF AUTOMATED STAT 04/06/2022 6:08 AM CDT CORONAVIRUS (COVID-19) ANTIGEN DIRECT OPTICAL STAT 04/05/2022 9:55 PM CDT CORONAVIRUS (COVID 19) STAT 9:55 PM CDT ECG 12-LEAD Routine 04/05/2022 8:49 PM CDT URINALYSIS WI REFLEX TO CULTURE STAT 04/05/2022 8:01 PM CDT DRUG SCREEN RAPID STAT 04/05/2022 8:0 1 PM CDT XR CHEST PORTABLE STAT 04/05/2022 7:3 5 PM CDT SED RATE, ERYTHROCYTE (ESR) STAT 04/05/2022 7:30 PM CDT COMPREHENSIVE METABOLIC PANEL STAT 04/05/2022 7:30 PM CDT LACTIC ACID STAT 04/05/2022 7:30 PM CDT CBC W/DIFF AUTOMATED STAT 04/05/2022 7:30 PM CDT ETHANOL STAT 04/05/2022 7:30 PM CDT documented in this encounter Results * (ABNORMAL) COMPREHENSIVE METABOLIC PANEL (04/06/2022 6:08 AM CDT) SODIUM S/P/B 135(L) 136 - 145 MMOL/L 04/06/2022 6:40 AM CDT [facility] POTASSIUM S/P/B 3.3(L) 3.5 - 5.1 MMOL/L 04/06/2022 6:40 AM CDT [facility] CHLORIDE S/P/B 94(L) 98 - 107 MMOL/L 04/06/2022 6:40 AM CDT [facility] CO2 29.8 21.0 - 32.0 MMOL/L 04/06/2022 6:40 AM CDT [facility] GLUCOSE 100(H) 70 - 99 MG/DL 04/06/2022 6:40 AM T [facility] Comment: FASTING GLUCOSE 100 TO 125 MG/DL IS CONSISTENT WITH IMPAIRED FASTING GLUCOSE. FASTING GLUCOSE >125 MG/DL IS CONSISTENT WITH DIABETES. RANDOM GLUCOSE >200 MG/DL WITH HYPERGLYCEMIC SYMPTOMS IS CONSISTENT WITH DIABETES. PER ADA GUIDELINES BUN 6 6 - 24 MG/DL 04/06/2022 6:40 AM T [facility] CREATININE S/P/B 1.06 0.70 - 1.30 MG/DL 04/06/2022 6:40 AM [facility] CALCIUM S/P/B 8.4 8.4 - 10.5 MG/DL 04/06/2022 6:40 AM [facility] BILIRUBIN TOTAL S/P/B 0.7 0.2 - 1.0 MG/DL 04/06/2022 6:40 AM [facility] Comment: THIS ASSAY IS NOT RECOMMENDED FOR PATIENTS UNDERGOING TREATMENT WITH ELTROMBOPAG DUE TO THE POTENTIAL FOR FALSELY ELEVATED RESULTS. ALKALINE PHOSPHATASE S/P/B 259(H) 45 - 115 U/L 04/06/2022 6:40 AM [facility] AST 20 15 - 37 U/L 04/06/2022 6:40 AM [facility] ALT 11(L) 16 - 63 U/L 04/06/2022 6:40 AM [facility] TOTAL PROTEIN S/P/B 7.9 6.4 - 8.2 G/DL 04/06/2022 6:40 AM [facility] ALBUMIN S/P/B 2.0(L) 3.4 - 5.0 G/DL 04/06/2022 6:40 AM [facility] ANION GAP 11.2 5.0 - 15.0 MMOL/L 04/06/2022 6:40 AM [facility] OSMOLALITY (CALC) 278 MOSM/KG 022 6:40 AM [facility] Comment:REFERENCE RANGE NOT ESTABLISHED GFR ESTIMATE >90 >89 ML/MIN/1. 73 M2 04/06/2022 6:40 AM CDT [facility] GFR NOTES GFR REFERENCE S: 04/06/2022 6:40 AM CDT [facility] Comment: THE ESTIMATED GFR IS [...] ml/min/1.73 m2 G5,KIDNEY FAILURE: <15 ml/min/1.73 m2 04/06/2022 6:08 AM CDT us Makayla Burgos DO LABORATORY Final Result [facility] [address] [place] [address], * (ABNORMAL) CBC W/DIFF AUTOMATED (04/06/2022 6:08 AM CDT) WBC 21.9(H) 4.0 - 10.8 x10'3/uL 04/06/2022 6:32 AM CDT [facility] RBC 4.01(L) 4.50 - 6.10 x10'6/uL 04/06/2022 6:32 AM CDT [facility] HGB 8.2(L) 13.0 - 18.0 G/DL 04/06/2022 6:32 AM CDT [facility] HCT 28.5(L) 37.0 - 52.0 % 04/06/2022 6:32 AM CDT [facility] MCV 71.1(L) 78.0 - 100.0 FL 04/06/2022 6:32 AM CDT [facility] MCH 20.4(L) 27.0 - 31.0 PG 04/06/2022 6:32 AM CDT [facility] MCHC 28.8(L) 33.0 - 36.0 G/DL 04/06/2022 6:32 AM CDT [facility] RDW 17.4(H) 11.5 - 14.5 % 04/06/2022 6:32 AM CDT [facility] PLT 549(H) 150 - 350 x10'3/uL 04/06/2022 6:32 AM CDT [facility] MPV 9.4 7.4 - 10.4 FL 04/06/2022 6:32 AM CDT [facility] DIFFERENTIAL COMMENT NORMAL REFERENCE RANGE NOT ESTABLISHED FOR THE PROPORTIONAL LEUKOCYTE DIFFERENTIAL. 04/06/2022 6:32 AM CDT [facility] SEG NEUTROPHILS 87.5 % 7:09 AM CDT [facility] LYMPHOCYTES 3.0 % 04/06/2022 7:09 AM CDT [facility] MONOCYTES 7.6 % 04/06/2022 7:09 AM CDT [facility] EOSINOPHILS 0.3 % 04/06/2022 7:09 AM CDT [facility] BASOPHILS 0.2 % 04/06/2022 7:09 AM CDT [facility] IMMATURE GRANS % 1.4 % 04/06/20 7:09 AM CDT [facility] NRBC 0.0 % 04/06/2022 7:09 AM CDT [facility] ABS. NEUTROPHILS 19.16(H) 1.60 - 8.30 x10'3/uL 04/06/2022 7:09 AM CDT [facility] ABS. LYMPHOCYTES 0.66(L) 0.80 - 4.70 x10'3/uL 04/06/2022 7:09 AM CDT [facility] ABS. MONOCYTES 1.66(H) 0.00 - 1.50 x10'3/uL 04/06/2022 7:09 AM CDT [facility] ABS. EOSINOPHILS 0.07 0.00 - 0.40 x10'3/uL 04/06/2022 7:09 AM CDT [facility] ABS. BASOPHILS 0.04 0.00 - 0.20 x10'3/uL 04/06/2022 7:09 AM CDT [facility] ABS. IMMATURE GRANULOCYTES 0.31(H) 0.00 - 0.03 x10'3/uL 04/06/2022 7:09 AM CDT [facility] ABS. NUCLEATED RBC'S 0.00 0.00 x10'3/uL 04/06/2022 7:09 AM CDT [facility] PLT MORPH. NORMAL 04/06/2022 7:09 AM CDT [facility] RBC MORPHOLOGY 2+ 04/06/2022 7:09 AM CDT [facility] Comment: ANISOCYTOSIS 2+ POIKILOCYTOSIS 1+ HYPOCHROMASIA 1+ POLYCHROMASIA 04/06/2022 6:08 AM CDT Makayla Burgos DO LABORATORY Final Result [facility] [address] [place] [address], * CORONAVIRUS (COVID 19) (04/05/2022 9:55 PM CDT) SPEC DESCRIPTION NASAL 04/05/20 9:53 PM CDT [facility] CORONAVIRUS SARS COV 2 PCR (RESP) NEGATIVE NEGATIVE 04/06/2022 7:40 PM CDT [facility] Comment: THE SARS-CoV-2 TEST HAS BEEN AUTHORIZED BY THE FDA UNDER AN EUA FOR USE BY AUTHORIZED LABORATORIES. PERFORMED BY NUCLEIC ACID AMPLIFICATION PCR FIRST TEST NO 04/05/2022 9:53 PM CDT [facility] EMPLOYED IN HEALTHCARE UNKNOWN 04/05/2022 9:53 PM CDT [facility] SYMPTOMATIC DEFINED BY CDC YES 04/05/2022 9:53 PM CDT [facility] DATE OF SYMPTOM ONSET 2022040504/05/2022 9:53 PM CDT [facility] HOSPITALIZATION STATUS YES 04/05/2022 9:53 PM CDT [facility] PATIENT IN ICU NO 04/05/2022 9:53 PM CDT [facility] RESIDENT OF [facility] UNKNOWN 04/05/2022 9:53 PM CDT [facility] NASOPHARYNGEAL SWAB / Unknown 04/05/2022 9:55 PM CDT Makayla Burgos DO MICROBIOLOGY - GENERAL ORDERABLE S Final Result [facility] [address] [place] [address], [place] [phone] [facility] [address] [place] [address], [place] [phone] * CORONAVIRUS (COVID-19) ANTIGEN DIRECT OPTICAL (04/05/2022 9:55 PM CDT) Pathologist [facility] CORONAVIRUS ANTIGEN IA NEGATIVE NEGATIVE 04/05/2022 10:30 PM CDT [facility] Comment: NEGATIVE RESULTS DO NOT RULE [...] USE BY AUTHORIZED LABORATORIES. SPECIMEN TYPE NASAL 04/05/2022 9:53 PM CDT [facility] FIRST TEST YES 04/05/2022 9:53 PM CDT [facility] EMPLOYED IN HEALTHCARE NO 04/05/2022 9:53 PM CDT [facility] SYMPTOMATIC DEFINED BY CDC YES 04/05/2022 9:53 PM CDT [facility] DATE OF SYMPTOM ONSET 2022040504/05/2022 9:53 PM CDT [facility] HOSPITALIZATION STATUS YES 04/05/2022 9:53 PM CDT [facility] PATIENT IN ICU NO 04/05/2022 9:53 PM CDT [facility] RESIDENT OF [facility] NO 04/05/2022 9:53 PM CDT [facility] NASAL NASAL STRUCTURE / Unknown 04/05/2022 9:55 PM CDT Makayla Burgos DO MICROBIOLOGY - GENERAL ORDERABLE S Final Result [facility] [address] [place] [address], * ECG 12 lead (04/05/2022 8:49 PM CDT) 04/05/2022 8:49 PM CDT Narrative [facility] - 04/05/2022 8:55 PM CDT ? [facility] ?[address] [place], [place] ??[address] ? Test Date: ?2022-04-05 Pat Name: ? CRYSTAL LIBORIO ? Department: ?? 3 ? Room: ? EXAM 505 Gender: ? Male ? 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 : ?1990 ? Requested By: MAKAYLA BURGOS Order Number: [id number] ? Reading MD: ?? Kaycee Oliver ? Measurements Intervals ?[place] ? Rate: ? 95 ? P: ?43 OR: ? 100 ?QRS: ?78 QRSD: ? 102 ?T: ?52 QT: ? 356 ? QTc: ?448 ? Interpretive Statements SINUS RHYTHM WITH SHORT OR INTERVAL INCOMPLETE RIGHT BUNDLE BRANCH BLOCK Minimal ST Depression Anterolateral Leads Procedure Note Kaycee Oliver MD - 04/05/[address] [place] [address] Test Date: 2022-04-05 Pat Name: CRYSTAL LIBORIO Department: 3 Room: EXAM 505 Gender: Male General Internal Medicine Doctor: : 1990 Requested By: MAKAYLA BURGOS Order Number: [id number] Reading MD: Kaycee Oliver Measurements Intervals [place] Rate: 95 P: 43 OR: 100 QRS: 78 QRSD: 102 T: 52 QT: 356 QTc: 448 Interpretive Statements SINUS RHYTHM WITH SHORT OR INTERVAL INCOMPLETE RIGHT BUNDLE BRANCH BLOCK Minimal ST Depression Anterolateral Leads us Makayla Burgos DO ECG ORDERABLES Final Result [facility] * (ABNORMAL) DRUG SCREEN RAPID (04/05/2022 8:01 PM CDT) Pathologist [facility] CANNABINOIDS SCREEN (U) POSITIVE(A) NEGATIVE 04/05/2022 8:30 PM CDT [facility] PHENCYCLIDINE PCP (U) NEGATIVE NEGATIVE 04/05/2022 8:30 PM CDT [facility] COCAINE METABOLITES (U) NEGATIVE NEGATIVE 04/05/2022 8:30 PM CDT [facility] METHAMPHETAMINE (U) POSITIVE(A) NEGATIVE 04/05/2022 8:30 PM CDT [facility] OPIATE SCREEN (U) POSITIVE(A) NEGATIVE 2021 8:30 PM CDT [facility] AMPHETAMINE (U) POSITIVE(A) NEGATIVE 04/05/20 8:30 PM CDT [facility] BENZODIAZEPINES SCREEN (U) NEGATIVE NEGATIVE 04/05/2022 8:30 PM CDT [facility] TRICYCLIC ANTIDEPRESSANT SCREEN (U) NEGATIVE NEGATIVE 04/05/2022 8:30 PM CDT [facility] METHADONE (U) NEGATIVE NEGATIVE 04/05/2022 8:30 PM CDT [facility] BARBITURATES SCREEN (U) NEGATIVE NEGATIVE 04/05/2022 8:30 PM CDT [facility] OXYCODONE SCREEN (U) NEGATIVE NEGATIVE 04/05/2022 8:30 PM CDT [facility] PROPOXYPHENE SCREEN (U) NEGATIVE NEGATIVE 04/05/2022 8:30 PM CDT [facility] URINE TOX COMMENT THIS TEST METHODOLOGY IS DESIGNED AND OFFERED A RAPID TURNAROUND, QUALITATIVE SCREENING PROCEDURE TO AID IN THE IMMEDIATE MEDICAL ASSESSMENT OF PATIENTS SUSPECTED OF SUBSTANCE ABUSE. 04/05/2022 8:01 PM CDT [facility] Comment: CLINICAL CONSIDERATION AND PROFESSIONAL JUDGMENT MUST BE APPLIED TO ANY DRUG OF ABUSE TEST RESULT, BOTH POSITIVE AND NEGATIVE. CONFIRMATORY QUANTITATIVE RESULTS ARE AVAILABLE THROUGH OUR REFERENCE LABORATORY. URINE SPECIMEN / Unknown 04/05/2022 8:01 PM CDT us Makayla Burgos DO URINE ORDERABLES Final Result [facility] [address] [place] [address], [place] [phone] * (ABNORMAL) URINALYSIS WI REFLEX TO CULTURE (04/05/2022 8:01 PM CDT) COLOR (U) DARK YELLOW 04/05/2022 8:28 PM CDT [facility] TRANSPARENCY CLEAR 04/05/2022 8:28 PM CDT [facility] SPECIFIC GRAVITY (U) 1.015 1.000 - 1.025 04/05/2022 8:28 PM CDT [facility] U PH 6.0 5.0 - 8.0 04/05/2022 8:28 PM CDT [facility] LEUKOCYTES (U) NEGATIVE NEGATIVE 04/05/2022 8:28 PM CDT [facility] NITRITES NEGATIVE NEGATIVE 04/05/2022 8:28 PM CDT [facility] PROTEIN (U) 2+(A) NEGATIVE 04/05/2022 8:28 PM CDT [facility] URINE GLUCOSE NEGATIVE NEGATIVE 04/05/2022 8:28 PM CDT [facility] KETONES MG/DL (U) NEGATIVE NEGATIVE 04/05/2022 8:28 PM CDT [facility] UROBILINOGEN 8.0(H) <1.0 EU/DL 04/05/2022 8:28 PM CDT [facility] Comment:EQUAL TO OR GREATER THAN BLOOD (U) TRACE(A) NEGATIVE 04/05/2022 8:28 PM CDT [facility] WBC/HPF 0-5 0 - 5 /HPF 04/05/2022 8:28 PM CDT [facility] RBC/HPF 0-5 0 - 5 /HPF 04/05/2022 8:28 PM CDT [facility] EPI/LPF RARE /LPF 04/05/2022 8:28 PM CDT [facility] BACTERIA (U) TRACE /HPF 04/05/2022 8:28 PM CDT [facility] BILIRUBIN (U) NEGATIVE NEGATIVE 04/05/2022 8:28 PM CDT [facility] CULTURE & SENSITIVITY INDICATED? NOT INDICATED 04/05/2022 8:28 PM CDT [facility] URINE SPECIMEN OBTAINED BY CLEAN CATCH PROCEDURE / Unknown 04/05/2022 8:01 PM CDT us Makayla Burgos DO URINE ORDERABLES Final Result [facility] [address] [place] [address], * XR CHEST PORTABLE (04/05/2022 7:35 PM CDT) Anatomical Region Laterality Modality Chest Radiographic Nunu ging 04/05/2022 7:36 PM CDT Impressions 04/05/2022 7:48 PM CDT IMPRESSION: Hazy opacities in the mid to lower left lung, likely representing pneumonia. Dictated By: Yomi Rosales on 04/05/2022 7:36 PM The attending radiologist has reviewed the image(s) and agrees with the content of this report. Ordered By: MAKAYLA BURGOS Interpreted By: Yomi Rosales, 04/05/2022 7:36 PM Narrative 04/05/2022 7:48 PM CDT Examination: XR CHEST PORTABLE Exam time: 04/05/2022 7:30 PM Clinical history: Cough, tender right chest Lmhrrq-b-[id number]. ?? Comparison: Chest x-ray 09/30/2021 Technique: Portable upright AP view of the chest. Findings: There is a right chest wall Lnryww-n-Hasm with its tip projecting over the superior cavoatrial junction. Heart is normal in size. Pulmonary vasculature is within normal limits. There are hazy groundglass and consolidative opacities in the mid to lower left lung. No pneumothorax or pleural effusion. No acute osseous abnormality. Procedure Note Alexandria Christiansen MD - 04/05/2022 Examination: XR CHEST PORTABLE Exam time: 04/05/2022 7:30 PM Clinical history: Cough, tender right chest Zqrbbj-[id number]-[id number]. Comparison: Chest x-ray 09/30/2021 Technique: Portable upright AP view of the chest. Findings: There is a right chest wall Azkpjt-r-Lhbd with its tipprojecting over the superior cavoatrial junction. Heart is normal in size.Pulmonary vasculature is within normal limits. There are hazy groundglassand consolidative opacities in the mid to lower left lung. No pneumothoraxor pleural effusion. No acute osseous abnormality. IMPRESSION: Hazy opacities in the mid to lower left lung, likely representingpneumonia. Dictated By: Yomi Rosales on 04/05/2022 7:36 PM The attending radiologist has reviewed the image(s) and agrees with thecontent of this report. Ordered By: MAKAYLA BURGOS Interpreted By: Yomi Rosales, 04/05/2022 7:36 PM Makayla Burgos DO GENERAL IMAGING Final Result * ETHANOL (04/05/2022 7:30 PM CDT) ALCOHOL S/P/B <0.003 <0.003 G/DL 04/05/2022 7:56 PM CDT [facility] 04/05/2022 7:30 PM CDT Makayla Burgos DO LABORATORY Final Result [facility] [address] [place] [id number], * LACTIC ACID (04/05/2022 7:30 PM CDT) LACTIC ACID VENOUS 1.0 0.4 - 2.0 MMOL/L 04/05/2022 7:56 PM CDT [facility] 04/05/2022 7:30 PM CDT us Makayla Burgos DO LABORATORY Final Result Performing Organization Address [facility] Co de Phone Number [facility] [address] [place] [address], * (ABNORMAL) SED RATE, ERYTHROCYTE (ESR) (04/05/2022 7:30 PM CDT) Pathologist [facility] ESR >140(H) 0 - 20 MM/HR 04/05/2022 8:02 PM CDT [facility] 04/05/2022 7:30 PM CDT us Makayla Burgos DO LABORATORY Final Result Performing Organization Address [facility] Co de Phone Number [facility] [address] [place] [address], * (ABNORMAL) COMPREHENSIVE METABOLIC PANEL (04/05/2022 7:30 PM CDT) Pathologist [facility] SODIUM S/P/B 134(L) 136 - 145 MMOL/L 04/05/2022 7:56 PM CDT [facility] POTASSIUM S/P/B 2.7(LL) 3.5 - 5.1 MMOL/L 04/05/2022 7:56 PM CDT [facility] Comment: Critical Result(s) Called to INK TECHNICIANDELMA RAHMAN and read back by: ?at: 19:54:36 ?? 04/05/2022 by ERLC. CHLORIDE S/P/B 94(L) 98 - 107 MMOL/L 04/05/2022 7:56 PM CDT [facility] CO2 30.9 21.0 - 32.0 MMOL/L 04/05/2022 7:56 PM T [facility] GLUCOSE 133(H) 70 - 99 MG/DL 04/05/2022 7:56 PM T [facility] Comment: FASTING GLUCOSE 100 TO 125 MG/DL IS CONSISTENT WITH IMPAIRED FASTING GLUCOSE. FASTING GLUCOSE >125 MG/DL IS CONSISTENT WITH DIABETES. RANDOM GLUCOSE >200 MG/DL WITH HYPERGLYCEMIC SYMPTOMS IS CONSISTENT WITH DIABETES. PER [employer] GUIDELINES BUN 7 6 - 24 MG/DL 04/05/2022 7:56 PM CDT [facility] CREATININE S/P/B 1.03 0.70 - 1.30 MG/DL 04/05/2022 7:56 PM CDT [facility] CALCIUM S/P/B 8.2(L) 8.4 - 10.5 MG/DL 04/05/2022 7:56 PM CDT [facility] BILIRUBIN TOTAL S/P/B 0.6 0.2 - 1.0 MG/DL 04/05/2022 7:56 PM T [facility] Comment: THIS ASSAY IS NOT RECOMMENDED FOR PATIENTS UNDERGOING TREATMENT WITH ELTROMBOPAG DUE TO THE POTENTIAL FOR FALSELY ELEVATED RESULTS. ALKALINE PHOSPHATASE S/P/B 242(H) 45 - 115 U/L 04/05/2022 7:56 PM T [facility] AST 19 15 - 37 U/L 04/05/2022 7:56 PM T [facility] ALT 11(L) 16 - 63 U/L 04/05/2022 7:56 PM CDT [facility] TOTAL PROTEIN S/P/B 7.3 6.4 - 8.2 G/DL 04/05/2022 7:56 PM T [facility] ALBUMIN S/P/B 1.8(L) 3.4 - 5.0 G/DL 04/05/2022 7:56 PM T [facility] ANION GAP 9.1 5.0 - 15.0 MMOL/L 04/05/2022 7:56 PM CDT [facility] OSMOLALITY (CALC) 278 MOSM/KG 022 7:56 PM CDT [facility] Comment:REFERENCE RANGE NOT ESTABLISHED GFR ESTIMATE >90 >89 ML/MIN/1. 73 M2 04/05/2022 7:56 PM CDT [facility] GFR NOTES GFR REFERENCE S: 04/05/2022 7:56 PM CDT [facility] Comment: THE ESTIMATED GFR IS [...] ml/min/1.73 m2 G5,KIDNEY FAILURE: <15 ml/min/1.73 m2 04/05/2022 7:30 PM CDT us Makayla Burgos DO LABORATORY Final Result [facility] [address] [place] [address], * (ABNORMAL) CBC W/DIFF AUTOMATED (04/05/2022 7:30 PM CDT) WBC 18.5(H) 4.0 - 10.8 x10'3/uL 04/05/2022 7:39 PM CDT [facility] RBC 3.55(L) 4.50 - 6.10 x10'6/uL 04/05/2022 7:39 PM CDT [facility] HGB 7.4(L) 13.0 - 18.0 G/DL 04/05/2022 7:39 PM CDT [facility] HCT 24.8(L) 37.0 - 52.0 % 04/05/2022 7:39 PM CDT [facility] MCV 69.9(L) 78.0 - 100.0 FL 04/05/2022 7:39 PM CDT [facility] MCH 20.8(L) 27.0 - 31.0 PG 04/05/2022 7:39 PM CDT [facility] MCHC 29.8(L) 33.0 - 36.0 G/DL 04/05/2022 7:39 PM CDT [facility] RDW 17.0(H) 11.5 - 14.5 % 04/05/2022 7:39 PM CDT [facility] PLT 452(H) 150 - 350 x10'3/uL 04/05/2022 7:39 PM CDT [facility] MPV 9.0 7.4 - 10.4 FL 04/05/2022 7:39 PM CDT [facility] DIFFERENTIAL COMMENT NORMAL REFERENCE RANGE NOT ESTABLISHED FOR THE PROPORTIONAL LEUKOCYTE DIFFERENTIAL. 04/05/2022 7:39 PM CDT [facility] SEG NEUTROPHILS 88.1 % 7:39 PM CDT [facility] LYMPHOCYTES 2.4 % 04/05/2022 7:39 PM CDT [facility] MONOCYTES 7.1 % 04/05/2022 7:39 PM CDT [facility] EOSINOPHILS 0.4 % 04/05/2022 7:39 PM CDT [facility] BASOPHILS 0.2 % 04/05/2022 7:39 PM CDT [facility] IMMATURE GRANS % 1.8 % 04/05/20 7:39 PM CDT [facility] NRBC 0.0 % 04/05/2022 7:39 PM CDT [facility] ABS. NEUTROPHILS 16.34(H) 1.60 - 8.30 x10'3/uL 04/05/2022 7:39 PM CDT [facility] ABS. LYMPHOCYTES 0.45(L) 0.80 - 4.70 x10'3/uL 04/05/2022 7:39 PM CDT [facility] ABS. MONOCYTES 1.32 0.00 - 1.50 x10'3/uL 04/05/2022 7:39 PM CDT [facility] ABS. EOSINOPHILS 0.07 0.00 - 0.40 x10'3/uL 04/05/2022 7:39 PM CDT [facility] ABS. BASOPHILS 0.03 0.00 - 0.20 x10'3/uL 04/05/2022 7:39 PM CDT [facility] ABS. IMMATURE GRANULOCYTES 0.33(H) 0.00 - 0.03 x10'3/uL 04/05/2022 7:39 PM CDT [facility] ABS. NUCLEATED RBC'S 0.00 0.00 x10'3/uL 04/05/2022 7:39 PM CDT [facility] 04/05/2022 7:30 PM CDT Makayla Burgos DO LABORATORY Final Result [facility] [address] [place] [address], documented in this encounter Visit Diagnoses Diagnosis Hypokalemia- Primary Hypopotassemia Hypokalemia Hypopotassemia Hodgkin's lymphoma ([facility]) Hodgkin's disease, unspecified Community acquired pneumonia Pneumonia, organism unspecified Polysubstance abuse ([facility]) Other, mixed, or unspecified nondependent drug abuse, unspecified documented in this encounter Admitting Diagnoses Diagnosis Hypokalemia Hypopotassemia documented in this encounter Administered Medications Inactive Administered Medications - up to 3 most recent administrations Medication Order MAR Action Action Date Dose Rate Site 0.9 % NaCl with KCl 40 mEq infusion at 125 mL/hr, Intravenous, Once, 1 dose, On 04/06/22 at 0100, For 1 bag New Bag 04/06/2022 12:48 AM CDT 125 mL/hr azithromycin (ZITHROMAX) 500 mg in sodium chloride 0.9 % 250 mL IVPB 500 mg, Intravenous, at 250 mL/hr, Every 24 hours, First dose on Sun /2/22 at 2200, Until Discontinued New Bag 04/06/2022 12:51 AM CDT 500 mg 250 mL/hr cefTRIAXone (ROCEPHIN) 1 g in sodium chloride 0.9 % 50 mL IVPB 1 g, Intravenous, at 100 mL/hr, Once, 1 dose, On Wed04/05/22 at 2200 New Bag 04/05/2022 10:00 PM CDT 1 g 100 mL/hr diazePAM (VALIUM) injection 10-15 mg 10-15 mg, Intravenous, Every 1 hour PRN, Other, per CIWA algorithm, Starting on Wed04/05/22 at 2213, Until Wed04/06/22 at 1620, - (For CIWA score 12-15 Diazepam 10 mg IV) - (For CIWA score 16-20 Diazepam 15 mg IV) Use oral lorazepam as first choice. Adjust dose following CIWA assessment algorithms. HOLD diazepam for excessive sedation (RR less than 8 or RASS -3 to -5) - If CIWA score is greater than 15 for 2 consecutive checks, discuss with providers about ICU transfer order. diazePAM (VALIUM) injection 20 mg 20 mg, Intravenous, Every 1 hour PRN, Other, per CIWA algorithm, 3 doses, Starting on Wed04/05/22 at 2213, Until Wed04/06/22 at 1620, ONLY to be given in ICU setting - (For CIWA score greater than 20 --- diazepam 20 mg IV every 1 hour); contact provider to consider alternative scheduled therapy or front-loading after 2 doses. Adjust dose following CIWA assessment algorithms. HOLD diazepam for excessive sedation (RR less than 8 or RASS -3 to -5). folic acid (FOLVITE) injection 1 mg 1 mg, Intravenous, Daily, First dose on Wed04/06/22 at 0900, Until Discontinued, Give if unable to take orally. Discontinue when CIWA complete. folic acid (FOLVITE) tablet 1 mg 1 mg, Oral, Daily, First dose on Wed04/06/22 at 0900, Until Discontinued, Give with meal. May give IV if unable to take orally. Discontinue when CIWA complete. Given 04/06/2022 7:45 AM CDT 1 mg guaiFENesin (ROBITUSSIN) 100 MG/5ML solution 200 mg 200 mg, Oral, Every 4 hours PRN, Congestion, Starting on Wed04/06/22 at 1219, Until Wed04/06/22 at 1620 Given 04/06/2022 12:40 PM CDT 200 mg LORazepam (ATIVAN) tablet 1-3 mg 1-3 mg, Oral, Every 1 hour PRN, Other, per CIWA algorithm, Starting on Wed04/05/22 at 2213, Until Wed04/06/22 at 1620, - (For CIWA score 8-11 --- Lorazepam 1 mg PO) - (For CIWA score 12-15 Lorazepam 2 mg PO) - (For CIWA score 16-20 Lorazepam 3 mg PO) Use oral lorazepam as first choice. Adjust dose following CIWA assessment algorithms. Hold lorazepam for excessive sedation (RR less than 8 or RASS -3 to -5). Given 04/06/2022 7:56 AM CDT 1 mg Given 04/06/2022 5:45 AM CDT 2 mg Given 04/06/2022 12:59 AM CDT 1 mg multivitamin (THERA) tablet 1 tablet 1 tablet, Oral, Daily, First dose on Wed04/06/22 at 0900, Until Discontinued, Give with meal. Discontinue when CIWA complete. Given 04/06/2022 7:45 AM CDT 1 tablet potassium chloride 10 mEq in SW 100 mL IVPB 10 mEq, Intravenous, Administer over 60 Minutes, Every hour scheduled, 4 doses, First dose on Wed04/05/22 at 2000, Last dose on Wed04/05/22 at 2300, TOTAL DOSE 40 MEQ MAX rate in peripheral line of 10 mEq per hour. New Bag 04/05/2022 11:37 PM CDT 10 mEq 100 mL/hr New Bag 04/05/2022 10:29 PM CDT 10 mEq 100 mL/hr New Bag 04/05/2022 9:26 PM CDT 10 mEq 100 mL/hr potassium chloride CR (KLOR-CON M) tablet 20 mEq 20 mEq, Oral, Once, 1 dose, On Wed04/06/22 at 0730, Do not chew, crush, or suck on tablet. May break in half. May dissolve whole tablet in 120 mL of water and drink immediately. Given 04/06/2022 7:45 AM CDT 20 mEq thiamine (B-1) injection 100 mg 100 mg, Intravenous, Daily, First dose on Wed04/06/22 at 0900, Until Discontinued, Give if unable to take oral meds. Give with meals. IF diluting medication dilute with normal saline to volume of 10 mL thiamine tablet 100 mg 100 mg, Oral, Daily, First dose on Wed04/06/22 at 0900, Until Discontinued, Give with meal. Given 04/06/2022 7:45 AM CDT 100 mg documented in this encounter Active and Recently Administered Medications Times are shown in CDT. Scheduled Medication Order 04/04/2022 04/05/2022 04/06/2022 0.9 % NaCl with KCl 40 mEq infusion (COMPLETED) at 125 mL/hr, Intravenous, Once, 1 dose, On Wed04/06/22 at 0100, For 1 bag 0048 (New Bag - Provider: Willian Collins RN)1240 (Infusion Stop Time - Provider: Kaitlin Richards RN) azithromycin (ZITHROMAX) 500 mg in sodium chloride 0.9 % 250 mL IVPB 500 mg, Intravenous, at 250 mL/hr, Every 24 hours, First dose on 04/05/22 at 2200, Until Discontinued 0051 (New Bag - Provider: Willian Collins RN)0216 (Infusion Stop Time - Provider: Willian Collins RN) cefTRIAXone (ROCEPHIN) 1 g in sodium chloride 0.9 % 50 mL IVPB (COMPLETED) 1 g, Intravenous, at 100 mL/hr, Once, 1 dose, On Wed04/05/22 at 2200 2200 (New Bag - Provider: Beatris Mcqueen RN)2231 (Infusion Stop Time - Provider: Fe Butcher RN) folic acid (FOLVITE) injection 1 mg(Linked Group 1) 1 mg, Intravenous, Daily, First dose on Wed04/06/22 at 0900, Until Discontinued, Give if unable to take orally. Discontinue when CIWA complete. 0745 (See Alternativ e - Provider: Kaitlin Richards RN) folic acid (FOLVITE) tablet 1 mg(Linked Group 1) 1 mg, Oral, Daily, First dose on Wed04/06/22 at 0900, Until Discontinued, Give with meal. May give IV if unable to take orally. Discontinue when CIWA complete. 0745 (Given - Provid er: Kaitlin Richards RN) multivitamin (THERA) tablet 1 tablet 1 tablet, Oral, Daily, First dose on Wed04/06/22 at 0900, Until Discontinued, Give with meal. Discontinue when CIWA complete. 0745 (Given - Provid er: Kaitlin Richards RN) potassium chloride 10 mEq in SW 100 mL IVPB (COMPLETED) 10 mEq, Intravenous, Administer over 60 Minutes, Every hour scheduled, 4 doses, First dose on 04/05/22 at 2000, Last dose on Wed04/05/22 at 2300, TOTAL DOSE 40 MEQ MAX rate in peripheral line of 10 mEq per hour. 2030 (New Bag - Provider: Beatris Mcqueen RN)2125 (Infusion Stop Time - Provider: Beatris Mcqueen RN)2126 (New Bag - Provider: Beatris Mcqueen RN)2226 (Infusion Stop Time - Provider: Fe Butcher RN)2229 (New Bag - Provider: Fe Butcher RN)2335 (Infusion Stop Time - Provider: Willian Collins RN)2337 (New Bag - Provider: Willian Collins RN) 0045 (Infusion Stop Time - Provider: Willian Collins RN) potassium chloride CR (KLOR-CON M) tablet 20 mEq (COMPLETED) 20 mEq, Oral, Once, 1 dose, On Wed04/06/22 at 0730, Do not chew, crush, or suck on tablet. May break in half. May dissolve whole tablet in 120 mL of water and drink immediately. 0745 (Given - Provid er: Kaitlin Richards RN) thiamine (B-1) injection 100 mg(Linked Group 2) 100 mg, Intravenous, Daily, First dose on Wed04/06/22 at 0900, Until Discontinued, Give if unable to take oral meds. Give with meals. IF diluting medication dilute with normal saline to volume of 10 mL 0745 (See Alternativ e - Provider: Kaitlin Richards RN) thiamine tablet 100 mg(Linked Group 2) 100 mg, Oral, Daily, First dose on Wed04/06/22 at 0900, Until Discontinued, Give with meal. 0745 (Given - Provid er: Kaitlin Richards RN) PRN Medication Order 04/04/2022 04/05/2022 04/06/2022 diazePAM (VALIUM) injection 10-15 mg(Linked Group 3) 10-15 mg, Intravenous, Every 1 hour PRN, Other, per CIWA algorithm, Starting on 04/05/22 at 2213, Until Wed04/06/22 at 1620, - (For CIWA score 12-15 Diazepam 10 mg IV) - (For CIWA score 16-20 Diazepam 15 mg IV) Use oral lorazepam as first choice. Adjust dose following CIWA assessment algorithms. HOLD diazepam for excessive sedation (RR less than 8 or RASS -3 to -5) - If CIWA score is greater than 15 for 2 consecutive checks, discuss with providers about ICU transfer order. 0059 (See Alternativ e - Provider: Willian Collins RN)0545 (See Alternative - Provider: Willian Collins RN)0756 (See Alternative - Provider: Kaitlin Richards RN) diazePAM (VALIUM) injection 20 mg 20 mg, Intravenous, Every 1 hour PRN, Other, per CIWA algorithm, 3 doses, Starting on 04/05/22 at 2213, Until Wed04/06/22 at 1620, ONLY to be given in ICU setting - (For CIWA score greater than 20 --- diazepam 20 mg IV every 1 hour); contact provider to consider alternative scheduled therapy or front-loading after 2 doses. Adjust dose following CIWA assessment algorithms. HOLD diazepam for excessive sedation (RR less than 8 or RASS -3 to -5). guaiFENesin (ROBITUSSIN) 100 MG/5ML solution 200 mg 200 mg, Oral, Every 4 hours PRN, Congestion, Starting on 04/06/22 at 1219, Until Wed04/06/22 at 1620 1240 (Given - Provid er: Kaitlin Richards RN) LORazepam (ATIVAN) tablet 1-3 mg(Linked Group 3) 1-3 mg, Oral, Every 1 hour PRN, Other, per CIWA algorithm, Starting on 04/05/22 at 2213, Until Wed04/06/22 at 1620, - (For CIWA score 8-11 --- Lorazepam 1 mg PO) - (For CIWA score 12-15 Lorazepam 2 mg PO) - (For CIWA score 16-20 Lorazepam 3 mg PO) Use oral lorazepam as first choice. Adjust dose following CIWA assessment algorithms. Hold lorazepam for excessive sedation (RR less than 8 or RASS -3 to -5). 0059 (Given - Provid er: Willian Collins RN)0545 (Given - Provider: Willian Collins RN)6284 (Given - Provider: Kaitlin Richards RN) Linked Groups Order Group 1: folic acid (FOLVITE) tablet 1 mgJump to med 1 mg, Oral, Daily, First dose on Wed04/06/22 at 0900, Until Discontinued, Give with meal. May give IV if unable to take orally. Discontinue when CIWA complete. Or folic acid (FOLVITE) injection 1 mgJump to med 1 mg, Intravenous, Daily, First dose on Wed04/06/22 at 0900, Until Discontinued, Give if unable to take orally. Discontinue when CIWA complete. Group 2: thiamine tablet 100 mgJump to med 100 mg, Oral, Daily, First dose on Wed04/06/22 at 0900, Until Discontinued, Give with meal. Or thiamine (B-1) injection 100 mgJump to med 100 mg, Intravenous, Daily, First dose on Wed04/06/22 at 0900, Until Discontinued, Give if unable to take oral meds. Give with meals. IF diluting medication dilute with normal saline to volume of 10 mL Group 3: LORazepam (ATIVAN) tablet 1-3 mgJump to med 1-3 mg, Oral, Every 1 hour PRN, Other, per CIWA algorithm, Starting on 04/05/22 at 2213, Until Wed04/06/22 at 1620, - (For CIWA score 8-11 --- Lorazepam 1 mg PO) - (For CIWA score 12-15 Lorazepam 2 mg PO) - (For CIWA score 16-20 Lorazepam 3 mg PO) Use oral lorazepam as first choice. Adjust dose following CIWA assessment algorithms. Hold lorazepam for excessive sedation (RR less than 8 or RASS -3 to -5). Or diazePAM (VALIUM) injection 10-15 mgJump to med 10-15 mg, Intravenous, Every 1 hour PRN, Other, per CIWA algorithm, Starting on 04/05/22 at 2213, Until Wed04/06/22 at 1620, - (For CIWA score 12-15 Diazepam 10 mg IV) - (For CIWA score 16-20 Diazepam 15 mg IV) Use oral lorazepam as first choice. Adjust dose following CIWA assessment algorithms. HOLD diazepam for excessive sedation (RR less than 8 or RASS -3 to -5) - If CIWA score is greater than 15 for 2 consecutive checks, discuss with providers about ICU transfer order. documented in this encounter Additional Health Concerns Infection Onset Date Last Indicated Resolved Time COVID-19 Rule Out 04/05/2022 04/05/2022 04/05/2022 10:30 PM CDT documented as of this encounter Care Teams Highway Safety Engineer Relationship Specialty Start Date End Date Darryl Epps FNP-BC [address] [place] [address] PCP - General NURSE PRACTITIONER 05/09/19 04/13/22 documented as of this encounter
--- OUTSIDE RECORDS SUMMARY | 2024-06-25 06:50 | XMS_ITS | Encounter Summary ---
Author Organization [facility] Address [address] [place] [address]. 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
--- OUTSIDE RECORDS SUMMARY | 2024-06-25 06:50 | XMS_ITS | Encounter Summary ---
Author Organization [facility] Address [address] [place] [address]. 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
--- OUTSIDE RECORDS SUMMARY | 2024-06-25 06:50 | XMS_ITS | Encounter Summary ---
Author Organization [facility] Address [address] [place] [address]. [place], [place] [address] [place] [address] Care Team Providers Care Recycle Coordinator Name Role Phone [facility] Primary Care Provider [phone] Reason for Referral * Imaging (Routine) - Closed Specialty Diagnoses / Procedures Referred By Devora guzman Referred To Contact RADIOLOGY Diagnoses Disseminated malignant neoplasm, unspecified (CMS/HCC HHS/HCC) Procedures PET WHOLE BODY INITIAL Fe Lundberg FNP [address] [place] [address] Phone: tel: fax: Referral ID Status Reason Start Date Expiration Date Visits Re quested Visits Authorized [id number] Closed 11/17/2021 12/18/2022 1 1 Reason for Visit * Imaging (Routine) - Closed Specialty Diagnoses / Procedures Referred By Devora guzman Referred To Contact RADIOLOGY Diagnoses Disseminated malignant neoplasm, unspecified (CMS/HCC HHS/HCC) Procedures PET WHOLE BODY INITIAL Fe Lundberg FNP [address] [place] [address] Phone: tel: fax: Referral ID Status Reason Start Date Expiration Date Visits Re quested Visits Authorized [id number] Closed 11/17/2021 12/18/2022 1 1 Encounter Details Date Type Department Care Team (Latest Contact Info) Description 11/26/2021 7:45 AM CDT - 11/26/2021 11:59 PM CDT Hospital Encounter [facility] [address] [place] [address] Bicierra Fe Truman, CARPET FLOOR LAYER APPRENTICE [address] [place] [address] Discharge Disposition: Home or Self Care (Routine Discharge) Social History Tobacco Use Types Packs/Day Years Used Date Smoking Tobacco: Never Assessed Sex and Gender Information Value Date Recorded Sex Assigned at Not on file 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 No / Unsure 11/26/2021 7:45 AM CDT documented as of this encounter Medications at Time of Discharge hydrocodone-aceta minophen 5-325 MG tabletIndications :Acute Pain < 3 Day Supply Take 1 tablet by mouth every 8 (eight) hours as needed for Pain. Indications: Acute Pain < 3 Day Supply 9 tablet 10/01/2019 04/05/2022 documented as of this encounter Plan of Treatment Not on file documented as of this encounter Procedures Procedure Name Priority Date/Time Associated Diagnosis Comments PET WHOLE BODY INITIAL Routine 11/26/2021 9:44 AM CDT Disseminated malignant neoplasm, unspecified (CMS/HCC HHS/HCC) POCT GLUCOSE - STEARNS DOCKED DEVICE Routine 11/26/2021 8:14 AM CDT documented in this encounter Results * PET WHOLE BODY INITIAL (11/26/2021 9:44 AM CDT) Anatomical Region Laterality Modality Body Positron Emissio n Tomography (PET), Positron Emission Tomography (PET) 11/26/2021 4:23 PM CDT Impressions 11/26/2021 4:56 PM CDT IMPRESSION: ?? 1. Markedly hypermetabolic lymphadenopathy above and below the diaphragm with FDG uptake markedly greater than liver. 2. ??Multifocal areas of increased osseous uptake likely represent sites of osseous involvement. 3. The spleen is normal in size with areas of subtly increased heterogeneous FDG uptake with slight hypodensity on CT. Findings are concerning for potential splenic involvement. 4. Overall, findings are most suspicious for lymphoma given appearance and patient's age however, metastatic disease can have a similar appearance. Recommend tissue sampling. A large right supraclavicular dalia conglomerate or left inguinal lymph node would be easily amenable to percutaneous sampling. If this is found to represent lymphoma, 5PS= 5. Ordered By: FE LUNDBERG Interpreted By: Alexandria Christiansen MD, 11/26/2021 4:23 PM Narrative 11/26/2021 4:56 PM CDT EXAMINATION: TUMOR FDG-PET/CT IMAGING DATE OF STUDY: ??11/26/2021 [facility] RADIOPHARMACEUTICAL: 11.3 mCi F-18 Fluorodeoxyglucose (FDG) i.v. ??Injection site: Right antecubital fossa HISTORY: 31-year-old man with extensive adenopathy found in the abdomen and pelvis on outside CT concerning for neoplasm. ??The study is requested for diagnosis. Initial treatment strategy. TECHNIQUE: ?? The patient's fasting [...] obtained. ??The study was interpreted on the [employer] workstation. ??The mean liver SUV (reported for director of quality control purposes) is 1.6. ?? The total scanned area was skull base to the proximal thighs. ??Images of the body were obtained starting 70 minutes after injection of tracer. COMPARISON: No prior FDG PET/CT. Outside CT of the abdomen and pelvis with contrast [place] [facility] [place] FINDINGS: There is markedly hypermetabolic lymphadenopathy above and below the diaphragm. Dalia groups include cervical, supraclavicular, axillary, mediastinal, internal mammary chain, bilateral hilar, upper abdominal, retrocrural, retroperitoneal, iliac chain, and left inguinal dalia groups. The most FDG uptake appears to be associated with a mediastinal dalia conglomerate along the aortic arch measuring 3.8 x 2.2 cm with max SUV 12.0. Additional reference nodes include the right supraclavicular dalia conglomerate measuring approximately 4.2 x 2.2 cm with max SUV 11.0. A 2.4 x 1.9 cm left inguinal node has max SUV 8.8. There is mild diffusely increased FDG activity throughout the bone marrow. There are multiple superimposed hypermetabolic lesions including a left iliac lesion with max SUV 8.2 and a right glenoid lesion with max SUV 9.4. The glenoid lesion has a small lucent correlate on CT. There is mildly increased FDG uptake associated with the left inferior pubic ramus which has patchy sclerosis and lucency on CT. The spleen is normal in size with slightly increased heterogeneous FDG uptake. Areas of increased FDG uptake have max SUV slightly greater than liver. These areas may have slight hypodensity on CT as well. There is no abnormal focal area of FDG uptake in the testicles. The most FDG-avid lesion is a mediastinal dalia conglomerate along the aortic arch which has a maximum SUV of 12.0, and approximate axial dimensions of 3.8 x 2.2. The uptake in this lesion is: markedly greater than liver (5PS= 5). Additional CT findings: No acute appearing abnormality. Procedure Note Alexandria Christiansen MD - 11/26/2021 EXAMINATION: TUMOR FDG-PET/CT IMAGING DATE OF STUDY: 11/26/2021 [facility] RADIOPHARMACEUTICAL: 11.3 mCi F-18 Fluorodeoxyglucose (FDG) i.v.Injection site: Right antecubital fossa HISTORY: 31-year-old man with extensive adenopathy found in the abdomenand pelvis on outside CT concerning for neoplasm. The study is requestedfor diagnosis. Initial treatment strategy. TECHNIQUE: The patient's fasting blood glucose level, measured byglucometer before injection of FDG, was 97 mg/dL. KAISERGastroview was notgiven orally. After intravenous administration of FDG, noncontrast CTimages were obtained for attenuation correction and for fusion withemission PET images to allow for anatomical localization of PET findings.Emission PET images were then obtained. The study was interpreted on [employer] workstation. The mean liver SUV (reported for quality controlpurposes) is 1.6. The total scanned area was skull base to the proximal thighs. Images ofthe body were obtained starting 70 minutes after injection of tracer. COMPARISON: No prior FDG PET/CT. Outside CT of the abdomen and pelvis withcontrast [place] [facility] [place] FINDINGS: There is markedly hypermetabolic lymphadenopathy above and below thediaphragm. Dalia groups include cervical, supraclavicular, axillary,mediastinal, internal mammary chain, bilateral hilar, upper abdominal,retrocrural, retroperitoneal, iliac chain, and left inguinal dalia groups.The most FDG uptake appears to be associated with a mediastinal nodalconglomerate along the aortic arch measuring 3.8 x 2.2 cm with max SUV12.0. Additional reference nodes include the right supraclavicular nodalconglomerate measuring approximately 4.2 x 2.2 cm with max SUV 11.0. A 2.4x 1.9 cm left inguinal node has max SUV 8.8. There is mild diffusely increased FDG activity throughout the bone marrow.There are multiple superimposed hypermetabolic lesions including a leftiliac lesion with max SUV 8.2 and a right glenoid lesion with max SUV 9.4.The glenoid lesion has a small lucent correlate on CT. There is mildlyincreased FDG uptake associated with the left inferior pubic ramus whichhas patchy sclerosis and lucency on CT. The spleen is normal in size with slightly increased heterogeneous FDGuptake. Areas of increased FDG uptake have max SUV slightly greater thanliver. These areas may have slight hypodensity on CT as well. There is no abnormal focal area of FDG uptake in the testicles. The most FDG-avid lesion is a mediastinal dalia conglomerate along theaortic arch which has a maximum SUV of 12.0, and approximate axialdimensions of 3.8 x 2.2. The uptake in this lesion is: markedly greaterthan liver (5PS= 5). Additional CT findings: No acute appearing abnormality. IMPRESSION: 1. Markedly hypermetabolic lymphadenopathy above and below the diaphragmwith FDG uptake markedly greater than liver. 2. Multifocal areas of increased osseous uptake likely represent sites ofosseous involvement. 3. The spleen is normal in size with areas of subtly increasedheterogeneous FDG uptake with slight hypodensity on CT. Findings areconcerning for potential splenic involvement. 4. Overall, findings are most suspicious for lymphoma given appearance andpatient's age however, metastatic disease can have a similar appearance.Recommend tissue sampling. A large right supraclavicular nodalconglomerate or left inguinal lymph node would be easily amenable topercutaneous sampling. If this is found to represent lymphoma, 5PS= 5. Ordered By: FE LUNDBERG Interpreted By: Alexandria Christiansen MD, 11/26/2021 4:23 PM Fe Lundberg CARPET FLOOR LAYER APPRENTICE PET Final Res ult * POCT glucose (11/26/2021 8:14 AM CDT) GLUCOSE POC 97 70 - 109 11/26/2021 8:17 AM CDT [facility] 11/26/2021 8:14 AM CDT Fe Lundberg CARPET FLOOR LAYER APPRENTICE POCT ORDERABLES - DEVICE Final Result [facility] [address] [place] [address], [id number] documented in this encounter Visit Diagnoses Diagnosis Disseminated malignant neoplasm, unspecified (CMS/HCC HHS/HCC) documented in this encounter Care Teams Recycle Coordinator Relationship Specialty Start Date End Date Jazmin Tyson FNP- [address] [place] [address] PCP - General NURSE PRACTITIONER 05/09/19 04/13/22 documented as of this encounter
--- OUTSIDE RECORDS SUMMARY | 2024-06-25 06:50 | XMS_ITS | Encounter Summary ---
Author Organization [facility] Address [address] [place] [address]. 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 No / Unsure 11/28/2021 7:48 AM CDT documented as of this encounter Plan of Treatment Not on file documented as of this encounter Visit Diagnoses Not on filedocumented in this encounter Care Teams [employer]p [employer] Relationship Specialty Start Date End Date Jazmin Tyson FNP-BC [address] [place] [address] PCP - General NURSE PRACTITIONER 05/09/19 04/13/22 documented as of this encounter
--- OUTSIDE RECORDS SUMMARY | 2024-06-25 06:50 | XMS_ITS | Encounter Summary ---
Author Organization [facility] Address [address] [place] [address]. [place] [address] [place] [address] Care Team Providers Care Investor Relations Specialist Name Role Phone FeleciaCandido kincaid Primary Care Provider [phone] Encounter Details Date Type Department Care Team (Latest Contact Info) Description 04/14/2022 Travel Social History Tobacco Use Types Packs/Day [...] week 04/14/2022 How often do you attend sikhism or judaism serv ices? Never 04/14/2022 Do you belong to any clubs o r organizations such as sikhism groups, unions, fraternal or athletic groups, or [...] move on to questions 3-9 0 04/14/2022 [facility] [...] place to sleep or slept in a longterm (including now)? 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 No / Unsure 04/14/2022 9:17 PM CDT documented as of this encounter Functional Status * Question Answer Date of Assessment Author Status Do you have serious difficul ty walking or climbing stairs? No 04/14/2022 9:31 PM CDT Zora De La Torre RN Active * Question Answer Date of Assessment Author Status Do you have difficulty dressing or bathing? No 04/14/2022 9:31 PM CDT Zora De La Torre RN Ac tive Because of a physical, menta l, or emotional condition, do you have difficulty doing errands alone such as visiting a doctor's office or shopping? No 04/14/2022 9:31 PM CDT Zora De La Torre RN Active * RETIRED Are you deaf or do [...] Author Status No 04/05/2022 10:59 PM CDT Willian Collins RN Active * Do you have difficulty dressing or bathing? Answer Date of Assessment Author Status No 04/05/2022 10:59 PM CDT Willian Collins RN Active * Because of a physical, mental, or emotional condition, do you have difficulty doing errands alone such as visiting a doctor's office or shopping? Answer Date of Assessment Author Status No 04/05/2022 10:59 PM CDT Willian Collins RN Active documented as of this encounter Mental Status * Question Answer Entry Date Author Status Because of a physical, menta l, or emotional condition, do you have serious difficulty concentrating, remembering, or making decisions? No 04/14/2022 9:31 PM CDT Zora De La Torre RN Activ e * Because of a physical, mental, or emotional condition, do you have serious difficulty concentrating, remembering, or making decisions? Answer Entry Date Author Status No 04/05/2022 10:59 PM CDT Willian Collins RN Active documented in this encounter Plan of Treatment Not on file documented as of this encounter Visit Diagnoses Not on filedocumented in this encounter Additional Health Concerns Assessment Noted Time PHQ-9 Depression Total Score: 1 04/14/20 22 9:26 PM CDT documented as of this encounter Care Teams Investor Relations Specialist Relationship Specialty Start Date End Date Candido Hayes [place] [facility] [address] PCP - General FAMILY PRACTICE 04/14/22 documented as of this encounter
--- OUTSIDE RECORDS SUMMARY | 2024-06-25 06:50 | XMS_ITS | Encounter Summary ---
Author Organization [facility] Address [address] [place] [address]. [place] [address] [place] [address] Care Team Providers Care Glove Examiner Name Role Phone [facility] Primary Care Provider [phone] Candido Hayes DO Primary Care Provider [phone] Ambrocio Ashford MD Unavailable [phone] Encounter Details Date Type Department Care Team (Late st Contact Info) Description 12/10/2018 Abstract [facility]FL CONVERSION [address] [place] [address] , Generic Conversion, Social History Tobacco Use Types Packs/Day Years Used Date Smoking Tobacco: Never Assessed Sex and Gender Information Value Date Recorded Sex Assigned at Not on file Legal Sex Male 5:44 PM GTA Gender Identity Male 04/14/2022 9:23 PM CDT Sexual Orientation Straight 04/14/2022 9: 23 PM CDT documented as of this encounter Plan of Treatment Not on file documented as of this encounter Visit Diagnoses Not on filedocumented in this encounter Additional Health Concerns Infection Onset Date Last Indicated Resolved Time COVID-19 Rule Out 04/05/2022 04/05/2022 04/05/2022 10:30 PM CDT MRSA Comment:04/14/22 nose (JJ) 04/16/2022 04/26/2023 COVID-19 Rule Out 10/27/2022 10/27/2022 10/27/2022 6:37 PM CDT COVID-19 Rule Out 12/15/2022 12/15/2022 12/15/2022 1:07 PM CDT documented as of this encounter Care Teams Glove Examiner Relationship Specialty Start Date End Date Jazmin Tyson FNP- [address] [place] [address] PCP - General NURSE PRACTITIONER 05/09/19 04/13/22 Candido Hayes DO [address] [place] [address] PCP - General FAMILY PRACTICE 04/14/22 Ambrocio Ashford MD [address] [place] [address] INTERNAL MEDICINE 10/27/22 documented as of this encounter
--- OUTSIDE RECORDS SUMMARY | 2024-06-25 06:50 | XMS_ITS | Encounter Summary ---
Author Organization [facility] Address [address] [place] [address]. [place], [place] [address] [place] [address] Care Team Providers Care Livestock Farmers Name Role Phone Jazmin Tyson Primary Care Provider [phone] Reason for Referral * Imaging (Routine) - Closed Specialty Diagnoses / Procedures Referred By Contac t Referred To Contact RADIOLOGY Diagnoses Left groin mass Procedures CT PEL WO CON Jazmin Tyson FNP-BC [address] [place] [address] Phone: tel: fax: Referral ID Status Reason Start Date Expiration Date Visits Re quested Visits Authorized [id number] Closed 06/21/2019 08/04/2019 1 1 ACE COMBUSTION TESTER Reason for Visit * Imaging (Routine) - Closed Specialty Diagnoses / Procedures Referred By Contmurray guzman Referred To Contact RADIOLOGY Diagnoses Left groin mass Procedures CT PEL WO CON Jazmin Tyson FNP-BC [address] [place] [address] Phone: tel: fax: Referral ID Status Reason Start Date Expiration Date Visits Re quested Visits Authorized [id number] Closed 06/21/2019 08/04/2019 1 1 Encounter Details Date Type Department Care Team (Latest Contact Info) Description 06/27/2019 12:39 PM FURNACE COMBUSTION TESTER - 06/27/2019 11:59 PM FURNACE COMBUSTION TESTER Hospital Encounter [place] [facility] [address] [place] [address] Jazmin Tyson FNP-BC [address] [place] [address] Discharge Disposition: Home or Self Care (Routine Discharge) Social History Tobacco Use Types Packs/Day Years Used Date Smoking Tobacco: Never Assessed Sex and Gender Information Value Date Recorded Sex Assigned at Not on file 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 Gender Identity Male 04/14/2022 9:23 PM CDT Sexual Orientation Straight 04/14/2022 9: 23 PM CDT documented as of this encounter Plan of Treatment Not on file documented as of this encounter Procedures Procedure Name Priority Date/Time Associated Diagnosis Comments CT PEL WO CON Routine 06/27/2019 1:32 PM FURNACE COMBUSTION TESTER Left groin mass documented in this encounter Results * CT PEL WO CON (06/27/2019 1:32 PM FURNACE COMBUSTION TESTER) Anatomical Region Laterality Modality Pelvis Computed Tomogra phy 06/27/2019 1:47 PM FURNACE COMBUSTION TESTER Impressions 06/27/2019 1:51 PM FURNACE COMBUSTION TESTER IMPRESSION: No abnormality identified in the left groin region to explain the patient's perceived mass. Interpreted By: Bean Cisneros MD, 06/27/2019 1:47 PM Narrative 06/27/2019 1:51 PM FURNACE COMBUSTION TESTER Examination: CT PEL WO CON Exam time: 06/27/2019 1:32 PM Clinical history: Left groin mass. Comparison: No comparison. Technique: Axial CT images of the pelvis were obtained without contrast. Coronal and sagittal reconstructions were submitted for evaluation. A radiation dose lowering technique was used for this procedure, which may include, but is not limited to, dose reduction technique, automated exposure control, the use of iterative reconstruction, ALARA (As Low As Reasonably Achievable) techniques, and Image Gently techniques. Findings: No abnormality is identified within the left groin region. There is no inguinal hernia or soft tissue mass. The inguinal lymph nodes appear normal bilaterally. No fluid collection or abscess is appreciated. The urinary bladder appears unremarkable within the limits of a noncontrast study. The prostate and seminal vesicles appear unremarkable. There is no pelvic free fluid. No pelvic lymphadenopathy is seen. Pelvic musculature appears unremarkable. Osseous structures appear normal. Procedure Note Bean Cisneros MD - 06/27/2019 Examination: CT PEL WO CON Exam time: 06/27/2019 1:32 PM Clinical history: Left groin mass. Comparison: No comparison. Technique: Axial CT images of the pelvis were obtained without contrast. Coronal and sagittal reconstructions were submitted for evaluation. A radiation dose lowering technique was used for this procedure, which may include, but is not limited to, dose reduction technique, automated exposure control, the use of iterative reconstruction, ALARA (As Low As Reasonably Achievable) techniques, and Image Gently techniques. Findings: No abnormality is identified within the left groin region. There is no inguinal hernia or soft tissue mass. The inguinal lymph nodes appearnormal bilaterally. No fluid collection or abscess is appreciated. The urinary bladder appears unremarkable within the limits of anoncontrast study. The prostate and seminal vesicles appear unremarkable. There isno pelvic free fluid. No pelvic lymphadenopathy is seen. Pelvic musculature appears unremarkable. Osseous structures appearnormal. IMPRESSION: No abnormality identified in the left groin region to explain thepatient's perceived mass. Interpreted By: Bean Cisneros MD, 06/27/2019 1:[address] Final Res ult documented in this encounter Visit Diagnoses Diagnosis Left groin mass documented in this encounter Care Teams Livestock Farmers Relationship Specialty Start Date End Date Jazmin Tyson FNP-BC [address] [place] [address] PCP - General NURSE PRACTITIONER 05/09/19 04/13/22 documented as of this encounter
--- OUTSIDE RECORDS SUMMARY | 2024-06-25 06:50 | XMS_ITS | Encounter Summary ---
Author Organization [facility] Address [address] [place] [address]. 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 No / Unsure 04/05/2022 10:50 PM CDT documented as of this encounter Functional Status documented as of this encounter Mental Status * Question Answer Entry Date Author Status Because of a physical, mental, or emotional condition, do you have serious difficulty concentrating, remembering, or making decisions? No 04/05/2022 10:59 PM CDT Willian Collins RN Active documented in this encounter Plan of Treatment Not on file documented as of this encounter Visit Diagnoses Not on filedocumented in this encounter Additional Health Concerns Infection Onset Date Last Indicated Resolved Time COVID-19 Rule Out 04/05/2022 04/05/2022 04/05/2022 10:30 PM CDT documented as of this encounter Care Teams Commercial Loan Administrator Relationship Specialty Start Date End Date Jazmin Tyson FNP- [address] [place] [address] PCP - General NURSE PRACTITIONER 05/09/19 04/13/22 documented as of this encounter
--- OUTSIDE RECORDS SUMMARY | 2024-06-25 06:50 | XMS_ITS | Encounter Summary ---
Author Organization [facility] Address [address] [place] [address]. [place], [place] [address] [place] [address] Care Team Providers Care Sample Washer Name Role Phone Jazmin Tyson 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
--- OUTSIDE RECORDS SUMMARY | 2024-06-25 06:50 | XMS_ITS | Encounter Summary ---
Author Organization [facility] Address [address] [place] [address]. 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
--- OUTSIDE RECORDS SUMMARY | 2024-06-25 06:50 | XMS_ITS | Encounter Summary ---
Author Organization [facility] Address [address] [place] [address]. [place] [address] [place] [address] Care Team Providers Care Japanese Tutor Name Role Phone Jazmin Tyson [facility] Primary Care Provider [phone] Reason for Visit * Reason Comments Rib Pain Encounter Details Date Type Department Care Team (Late st Contact Info) Description 10/01/2019 12:58 PM CDT - 10/01/2019 2:00 PM CDT Emergency [facility] [place] [address] Amaury Burgos, DO [address] [place], [place] [address] Rib Pain Discharge Disposition: Home or Self Care (Routine Discharge) Social History Tobacco Use Types Packs/Day Years Used Date Smoking Tobacco: Never Assessed Sex and Gender Information Value Date Recorded Sex Assigned at Not on file 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 Gender Identity Male 04/14/2022 9:23 PM CDT [...] Sign Reading Time Taken Comments Blood Pressure 158/93 10/01/2019 12:56 PM CDT Pulse 58 10/01/2019 12:56 PM CDT Temperature 36.3 ??C (97.4 ??F) 10/01/2019 12:56 PM C DT Respiratory Rate 26 10/01/2019 12:56 PM CDT Oxygen Saturation 100% 10/01/2019 2:00 PM CDT Inhaled Oxygen Concentration - - Weight 72.6 kg (160 lb) 10/01/2019 12:56 PM CDT Height 167.6 cm (5' 6 ) 10/01/2019 12:56 PM CDT Body Mass Index 25.82 10/01/2019 12:56 PM CDT documented in this encounter Discharge Instructions * Attachments The following attachments cannot be sent through Care Everywhere. * Rib Fracture Discharge Instructions (Guinean) * Using Cold for Pain (Guinean) * Wound Care Discharge Instructions (Guinean) documented in this encounter ED Notes * Sultana Callejas RN - 10/01/2019 1:19 PM CDT TO [facility] AT 1321. * Amaury Burgos DO - 10/01/2019 12:58 PM CDT Chief Complaint Chief Complaint Patient presents with ??? Rib Pain History of Present Illness 29-year-old male presents to the emergency department complaining of right-sided pain. The patient states that he was putting up a tree stand 10 to 20 feet off the ground when he fell landing on his right side. He denies hitting his head or losing consciousness. He reports pain in his right rib cage and his right hip. He reports that he was able to walk after the fall. He states that the hip pain is superficial. He has also reports pain in the ulnar aspect of his right hand. He deniesany medical conditions. He reports that his pain is 10/10. 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 Authorizing Provider hydrocodone-acetaminophen 5-325 MG tablet Take 1 tablet by mouth every 8 (eight) hours as needed for Pain. Indications: Acute Pain < 3 Day Supply 10/01/19 Yes Amaury Burgos DO ibuprofen 800 MG tablet Take 1 tablet (800 mg total) by mouth every 8 (eight) hours as needed for Pain. 10/01/19 10/11/19 Yes Amaury Burgos DO PAST MEDICAL HISTORY: No past medical history on file. PAST SURGICAL HISTORY: No past surgical history on file. FAMILY HISTORY: No family history on file. SOCIAL HISTORY: Social History Tobacco Use ??? Smoking status: Not on file Substance Use Topics ??? Alcohol use: Not on file ??? Drug use: Not on file Review of Systems Review of Systems All other systems reviewed and are negative. Physical Exam Filed Vitals: 10/01/19 1315 10/01/19 1345 10/01/19 1400 10/01/19 1415 BP: 135/89 Pulse: Resp: Temp: SpO2: 100% 100% 100% 99% Weight: Height: Physical Exam Constitutional: He is oriented to person, place, and time. He appears well- developed and well-nourished. No distress. HENT: Head: Normocephalic and atraumatic. Eyes: Conjunctivae are normal. Cardiovascular: Normal rate, regular rhythm and normal heart sounds. No murmur heard. Pulmonary/Chest: Effort normal and breath sounds normal. No respiratory distress. He has no wheezes. He has no rales. Musculoskeletal: He exhibits tenderness (right mid-lateral rib cage). He exhibits no deformity. Active motion of right hip and knee without pain; no pain with pelvic compression Neurological: He is alert and oriented to person, place, and time. Skin: He is not diaphoretic. Abrasions of right arm, right face, right rib cage, and right hip Psychiatric: He has a normal mood and affect. His behavior is normal. Judgment and thought content normal. Nursing note and vitals reviewed. Diagnostic Studies / Procedures ELECTROCARDIOGRAMS: No results found for this visit on 10/01/19. LABORATORY STUDIES: No results found for this visit on 10/01/19. IMAGING STUDIES XR RIBS RT+PA CHEST Final Result by User, [id number] (09/30 7194) Exam: Chest x-ray and right ribs x-ray No comparison INDICATION: Fell out of a deer stand, right-sided pain. TECHNIQUE: One view the chest and 3 views of the right ribs. FINDINGS: Normal heart and pulmonary vessel size. The lungs are clear. No pneumothorax or pleural fluid. There is a nondisplaced fracture of the posterior lateral right sixth rib. IMPRESSION: 1. No acute lung findings. 2. Right sixth rib fracture. Interpreted By: Lenny Cooley MD, 10/01/2019 1:35 PM XR HAND RT 3V Final Result by User, [id number] (09/30 1348) 10/01/2019, 1328 hours. HISTORY: Fell from tree stand. Right hand pain. EXAM: AP, lateral and oblique views of the right hand. No comparison. FINDINGS: No fracture or acute bony abnormality. No arthritic change. No gross bone destruction. No abnormal soft tissue density or calcification. IMPRESSION: No acute bony abnormality. Interpreted By: Randy Zapata MD, 10/01/2019 1:35 PM ED Course / Medical Decision Making MDM Number of Diagnoses or Management Options Abrasion: new and does not require workup Closed fracture of one rib of right side, initial encounter: new and requires workup Contusion: new and does not require workup Fall from tree, initial encounter: new and requires workup Amount and/or Complexity of Data Reviewed Tests in the radiology section of CPT??: reviewed and ordered Independent visualization of images, tracings, or specimens: yes Risk of Complications, Morbidity, and/or Mortality Presenting problems: moderate Diagnostic procedures: low Management options: moderate Patient Progress Patient progress: improved Clinical Impression Closed fracture of one rib of right side, initial encounter (Primary) Contusion Abrasion Fall from tree, initial encounter Disposition: Discharge Amaury Burgos DO 10/01/19 1547 * Janneth Zamarripa RN - 10/01/2019 12:55 PM CDT Pt arrives ambulatory with rib pain-right side. Onset 20-30 minutes ago after falling from deer stand - apprx 10-12 ft. No LOC. Pt rates pain to upper ribs and shoulder 04/13. documented in this encounter Plan of Treatment Not on file documented as of this encounter Procedures Procedure Name Priority Date/Time Associated Diagnosis Comments XR RIBS RT+PA CHEST STAT 10/01/2019 1 :33 PM CDT XR HAND RT 3V STAT 10/01/2019 1:33 PM CDT documented in this encounter Results * XR HAND RT 3V (10/01/2019 1:33 PM CDT) Anatomical Region Laterality Modality Hand Radiographic [place] 10/01/2019 1:35 PM CDT Impressions 10/01/2019 1:47 PM CDT IMPRESSION: No acute bony abnormality. Interpreted By: Randy Zapata MD, 10/01/2019 1:35 PM Narrative 10/01/2019 1:47 PM CDT 10/01/2019, 1328 hours. HISTORY: Fell from tree stand. Right hand pain. EXAM: AP, lateral and oblique views of the right hand. No comparison. FINDINGS: No fracture or acute bony abnormality. No arthritic change. No gross bone destruction. No abnormal soft tissue density or calcification. Procedure Note Randy Zapata MD - 10/01/2019 10/01/2019, 1328 hours. HISTORY: Fell from tree stand. Right hand pain. EXAM: AP, lateral and oblique views of the right hand. No comparison. FINDINGS: No fracture or acute bony abnormality. No arthritic change. No gross bone destruction. No abnormal soft tissue density orcalcification. IMPRESSION: No acute bony abnormality. Interpreted By: Randy Zapata MD, 10/01/2019 1:35 PM Amaury Burgos DO GENERAL IMAGING Final Result * XR RIBS RT+PA CHEST (10/01/2019 1:33 PM CDT) Anatomical Region Laterality Modality Chest Radiographic [place] ging 10/01/2019 1:35 PM CDT Impressions 10/01/2019 1:38 PM CDT IMPRESSION: 1. ??No acute lung findings. 2. ??Right sixth rib fracture. Interpreted By: Lenny Cooley MD, 10/01/2019 1:35 PM Narrative 10/01/2019 1:38 PM CDT Exam: Chest x-ray and right ribs x-ray No comparison INDICATION: Fell out of a deer stand, right-sided pain. TECHNIQUE: One view the chest and 3 views of the right ribs. FINDINGS: Normal heart and pulmonary vessel size. ??The lungs are clear. ??No pneumothorax or pleural fluid. ??There is a nondisplaced fracture of the posterior lateral right sixth rib. Procedure Note Lenny Cooley MD - 10/01/2019 Exam: Chest x-ray and right ribs x-ray No comparison INDICATION: Fell out of a deer stand, right-sided pain. TECHNIQUE: One view the chest and 3 views of the right ribs. FINDINGS: Normal heart and pulmonary vessel size. The lungs are clear.No pneumothorax or pleural fluid. There is a nondisplaced fracture of theposterior lateral right sixth rib. IMPRESSION: 1. No acute lung findings. 2. Right sixth rib fracture. Interpreted By: Lenny Cooley MD, 10/01/2019 1:35 PM Amaury Burgos DO GENERAL IMAGING Final Result documented in this encounter Visit Diagnoses Diagnosis Closed fracture of one rib of right side, initial encounter- Primary Contusion Contusion of unspecified site Abrasion Abrasion or friction burn of other, multiple, and unspecified sites, without mention of infection Fall from tree, initial encounter documented in this encounter Administered Medications Inactive Administered Medications - up to 3 most recent administrations Medication Order MAR Action Action Date Dose Rate Site fentaNYL (SUBLIMAZE) injection 50 mcg 50 mcg, Intravenous, Once, 1 dose, On 10/01/19 at 1315, If intravenous (IV) route has been ordered, give over 1-2 minutes. Given 10/01/2019 1:12 PM CDT 50 mcg documented in this encounter Active and Recently Administered Medications Times are shown in CDT. Scheduled Medication Order 09/29/2019 09/30/2019 10/01/2019 fentaNYL (SUBLIMAZE) injection 50 mcg (COMPLETED) 50 mcg, Intravenous, Once, 1 dose, On 10/01/19 at 1315, If intravenous (IV) route has been ordered, give over 1-2 minutes. 1312 (Given - Provid er: Sultana Callejas RN) documented in this encounter Care Teams Japanese Tutor Relationship Specialty Start Date End Date Jazmin Tyson FNP- [address] [place] [address] PCP - General NURSE PRACTITIONER 05/09/19 04/13/22 documented as of this encounter
--- OUTSIDE RECORDS SUMMARY | 2024-06-25 06:50 | XMS_ITS | Encounter Summary ---
Author Organization [facility] Address [address] [place] [address]. [place], [place] [address] [place] [address] Care Team Providers Care Sql Database Administrator Name Role Phone [facility] Care Provider [phone] [phone] Reason for Referral * Imaging (Routine) - Closed Specialty Diagnoses / Procedures Referred By Devora guzman Referred To Contact RADIOLOGY Diagnoses Disseminated malignant neoplasm, unspecified (CMS/HCC HHS/HCC) Procedures NM BONE SCAN WHOLE BODY WO SPECT Fe Lundberg FNP [address] [place] [address] Phone: tel: fax: Referral ID Status Reason Start Date Expiration Date Visits Re quested Visits Authorized [id number] Closed 11/28/2021 02/28/2022 2 2 Reason for Visit * Imaging (Routine) - Closed Specialty Diagnoses / Procedures Referred By Devora guzman Referred To Contact RADIOLOGY Diagnoses Disseminated malignant neoplasm, unspecified (CMS/HCC HHS/HCC) Procedures NM BONE SCAN WHOLE BODY WO SPECT Fe Lundberg FNP [address] [place] [address] Phone: tel: fax: Referral ID Status Reason Start Date Expiration Date Visits Re quested Visits Authorized [id number] Closed 11/28/2021 02/28/2022 2 2 Encounter Details Date Type Department Care Team (Latest Contact Info) Description 11/28/2021 7:49 AM CDT - 11/28/2021 11:59 PM CDT Hospital Encounter [facility] [address] [place] [address] Fe Lundberg, SIGNALING PROJECT ENGINEER [address] [place] [address] Discharge Disposition: Home or Self Care (Routine Discharge) Social History Tobacco Use Types Packs/Day Years Used Date Smoking Tobacco: Never Assessed Sex and Gender Information Value Date Recorded Sex Assigned at Not on file 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 1. Asymmetrically increased uptake involving the right glenoid corresponding to the site of a hypermetabolic lesion on recent PET/CT. 2. No discrete scintigraphic correlate for the left posterior iliac lesion on recent PET/CT. Ordered By: FE LUNDBERG Interpreted By: Alexandria Christiansen MD, 11/28/2021 3:08 PM Narrative 11/28/2021 3:14 PM CDT EXAMINATION: ??BONE SCINTIGRAPHY (WHOLE-BODY) DATE OF STUDY: ?? 11/28/2021 RADIOPHARMACEUTICAL: ?? 24.0 mCi Tc-99m MDP i.v. HISTORY: ??Abdominal adenopathy concerning for metastatic disease. Evaluate for osseous metastatic disease. FINDINGS: ??Delayed whole-body scintigrams were obtained. ?? Prior nuclear medicine studies used for comparison: FDG PET/CT 11/26/2021 Other radiographic comparisons: none There is asymmetrically increased uptake involving the right glenoid corresponding to the site of a hypermetabolic lesion on the recent PET/CT. Retained activity in the urinary bladder limits visualization of portions of the pelvis. There is no discrete focal scintigraphic correlate for the right posterior iliac lesion seen on the PET/CT. There is an otherwise expected distribution of activity throughout the skeleton. Procedure Note Alexandria Christiansen MD - 11/28/2021 EXAMINATION: BONE SCINTIGRAPHY (WHOLE-BODY) DATE OF STUDY: 11/28/2021 RADIOPHARMACEUTICAL: 24.0 mCi Tc-99m MDP i.v. HISTORY: Abdominal adenopathy concerning for metastatic disease. Evaluatefor osseous metastatic disease. FINDINGS: Delayed whole-body scintigrams were obtained. Prior nuclear medicine studies used for comparison: FDG PET/CT 11/26/2021 Other radiographic comparisons: none There is asymmetrically increased uptake involving the right glenoidcorresponding to the site of a hypermetabolic lesion on the recent PET/CT. Retained activity in the urinary bladder limits visualization of portionsof the pelvis. There is no discrete focal scintigraphic correlate for the right posterioriliac lesion seen on the PET/CT. There is an otherwise expected distribution of activity throughout theskeleton. IMPRESSION: 1. Asymmetrically increased uptake involving the right glenoidcorresponding to the site of a hypermetabolic lesion on recent PET/CT. 2. No discrete scintigraphic correlate for the left posterior iliac lesionon recent PET/CT. Ordered By: FE LUNDBERG Interpreted By: Alexandria Christiansen MD, 11/28/2021 3:08 PM Fe Lundberg SIGNALING PROJECT ENGINEER NUC MED Final Res ult documented in this encounter Visit Diagnoses Diagnosis Disseminated malignant neoplasm, unspecified (CMS/HCC HHS/HCC) documented in this encounter Care Teams Sql Database Administrator Relationship Specialty Start Date End Date Jazmin Tyson FNP- [address] [place] [address] PCP - General NURSE PRACTITIONER 05/09/19 04/13/22 documented as of this encounter
--- OUTSIDE RECORDS SUMMARY | 2024-06-25 06:50 | XMS_ITS | Encounter Summary ---
Author Organization [facility] Address [address] [place] [address]. 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
--- OUTSIDE RECORDS SUMMARY | 2024-06-25 06:50 | XMS_ITS | Encounter Summary ---
Author Organization [facility] Address [address] [place] [address]. [place] [address] [place] [address] Care Team Providers Care Supervisor Cigar Making Hand Name Role Phone Freddy Jay Primary Care Provider [phone] Reason for Referral * Imaging (Urgent) - Closed Specialty Diagnoses / Procedures Referred By Contac t Referred To Contact RADIOLOGY Procedures CT CHEST+ABD+PEL W Shashank Atkinson MD Phone: tel: fax: Referral ID Status Reason Start Date Expiration Date Visits Re quested Visits Authorized [id number] Closed 04/14/2022 04/14/2023 1 1 * Imaging (Emergency) - Closed Specialty Diagnoses / Procedures Referred By Contac t Referred To Contact RADIOLOGY Procedures CT SOFT TISSUE NECK W Shashank Atkinson MD Phone: tel: fax: Referral ID Status Reason Start Date Expiration Date Visits Re quested Visits Authorized [id number] Closed 04/14/2022 04/14/2023 1 1 Reason for Visit * Reason Comments Neck Swelling * Auth/Cert Specialty Diagnoses / Procedures Referred By Contac t Referred To Contact Diagnoses Hodgkin's lymphoma (CMS/HCC HHS/HCC) Healthcare-associated pneumonia Superior 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 [address] [place] [address] Shashank Zavala MD [address] [place] [id number] Riccardo Mario MD [address] [facility] [place] [address] Alexei Tan MD [address] [facility] [place] [address] Neck Swelling Discharge Disposition: Home or Self Care (Routine [...] week 04/14/2022 How often do you attend pentecostal or shinto serv ices? Never 04/14/2022 Do you belong to any clubs o r organizations such as pentecostal groups, unions, fraternal or athletic groups, or [...] move on to questions 3-9 0 04/14/2022 [facility] of Occupat ional Health - Occupational Stress [...] place to sleep or slept in a intermediate (including now)? 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 Gender Identity Male 04/14/2022 9:23 PM CDT [...] Sign Reading Time Taken Comments Blood Pressure 135/71 04/16/2022 12:11 PM CDT Pulse 102 04/16/2022 12:11 PM CDT Temperature 36.2 ??C (97.2 ??F) 04/16/2022 12:11 PM C DT Respiratory Rate 18 04/16/2022 12:11 PM CDT Oxygen Saturation 92% 04/16/2022 12:11 PM CDT Inhaled Oxygen Concentration - - Weight 71 kg (156 lb 9.6 oz) 04/14/2022 8:30 PM CDT Height 167.6 cm (5' 6 ) 04/14/2022 8:30 PM CDT Body Mass Index 25.28 04/14/2022 8:30 PM CDT documented in this encounter Functional [...] Assessment Author Status No 04/14/2022 9:31 PM CDZora Brooks RN Active documented as of this encounter [...] Date Author Status No 04/14/2022 9:31 PM CDZora Brooks RN Active documented in this encounter Discharge Summaries * Zainab Tyson, COILED COIL INSPECTOR-BC - 04/16/2022 11:20 AM CDT Images from the original note were not included. Physician Discharge Summary Patient ID: Kedar Capone. male. 1990. Admit date: 04/14/2022 3:35 PM Discharge date and time: 04/16/22 Admitting Physician: Alexei Tan MD Primary Care Physician: JAY NARAYANAN DO Attending Provider: Alexei Tan MD Discharge Physician: Dr. Tan /DEVIN BLANCA Student Primary Diagnoses: 1. 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 Hodgkin Lymphoma 2. Fever 3. Thrombocytosis 4. Anemia 5. Alcohol Use Disorder 6. Methamphetamine Use Disorder Admission Condition: fair Discharged Condition: Stable Code Status: Full Code Indication for Admission: Chief Complaint Patient presents with ??? Neck Swelling Reason for hospitalization: Healthcare associated pneumonia, Superior Vena Cava Syndrome, and Thrombosis of Superior Vena Cava Hospital Course: Kedar Capone was admitted on 04/14/2022 3:35 PM for healthcare associated pneumonia, superior vena cava syndrome, and thrombosis of superior vena cava. H&P from admission: Kedar Capone is a 32-year-old male with a history of metastatic Hodgkin Lymphoma s/p port catheter who presented to the ER with complaints of fever, chills, and neck swelling beginning 3 days ago. Patient states over the last three days he has noticed an increased swelling on the right side of his neck. He denies any neck pain or tenderness. He also notes associated fevers. Reports his Tmax was 100.9 degrees. He denies taking any medications at home to help with the fever. No chest pain, shortness of breath, abdominal pain, nausea, vomiting, constipation, diarrhea or urinary complaints. Patient has a history of Hodgkin's Lymphoma and was supposed to be starting chemotherapy today at [facility] under Dr. Ashford. He was also recently admitted to [facility] for treatment of pneumonia with antibiotics. The patient states that he completed his antibiotic course without complications. Patient also reported history of alcohol and drug use. During his last admission, CIWA protocol was initiated and Ativan was given multiple times. The patient states he has not used alcohol within the last week. He also states that he has not used methamphetamines within the last 24 hours. Work up in the ED was significant for healthcare-associated pneumonia. 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 The ER physician tried transferring the patient to [facility] in [place], [place] where his oncologist, Dr. Ambrocio Ashford, is located. The hospitalist, Dr. Sera Shannon, refused transfer initially without oncologist accepting. The oncologist on-call for Dr. Ashford was contactedand accepted the patient for transfer. The ER physician then contacted the hospitalist again after the oncologist accepted, but the hospitalist continued to refuse the admission stating that the patient would not receive any different care if the patient stayed here for antibiotics and anticoagulation. He was then admitted to the third floor of [facility] with the initiation of Cefepime and Heparin in the ED. ?? During the patient's hospital course, the patient was initially started on Cefepime and Vancomycin for his healthcare associated pneumonia. Patient received 3 days worth of these antibiotics without complications. He was also started on methylprednisolone 80mg IV for his neck swelling. The following morning when his blood work was checked, his white count was elevated at 19.6 from 6.6 the previous day. This was likely due to the initiation of the steroids as the patient had been on IV antibiotics and stated he was feeling much better. He was also placed on Heparin dosed by the pharmacy due tohis thrombosis under his port catheter that was likely contributing to superior vena cava syndrome.Patient continued to have a fever immediately after admission from the ED, but prior to discharge was afebrile for over 24 hours. His blood cultures showed no growth x 1 day. However, his MRSA screening was positive. The patient was also placed on CIWA protocol while inpatient due to previous admission last week requiring 4mg of Ativan due to his history of alcohol use disorder and methamphetamine use disorders. Prior to discharge, contact was made with the patient's oncologist due to his Hodgkin's Lymphoma and follow up was scheduled for the patient. He is scheduled to see his oncologist, Dr. Ashford, on Sunday, April 24, 2022 at 09:30. Patient continued to remain on room air during courseof stay without oxygen requirements. He will be discharged home with plans to start Eliquis 5mg BIDfor his thrombosis, Levaquin 750mg daily for pneumonia, and Prednisone 50mg x 5 days for swelling. Patient discharged home in stable condition. Plan to follow up with oncologist on April 24, 2022 at 09:30. Consults: none Significant Diagnostic Studies: Radiology Results (Last 30 days) 04/14/[address] SOFT TISSUE NECK W CON Final result Impression: IMPRESSION: 1. There is a right-sided chest port catheter. There appears to be clot within the superior vena cava adjacent to the catheter. There is also diffuse subcutaneous edema throughout the neck and upper chest. 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 2. There is retropharyngeal edema measuring approximately 8-9 mm in maximal thickness. 3. Extensive lymphadenopathy throughout the neck bilaterally. Bilateral supraclavicular lymphadenopathy. This is highly suggestive of malignancy/metastatic disease. 4. No evidence of oropharyngeal mass or airway compromise at this time. Ordered By: SHASHANK ZAVALA Interpreted By: Sheldon Laboy DO, 04/14/2022 5:39 PM 04/14/[address] CHEST+ABD+PEL W CON Final result Impression: IMPRESSION: 1. Extensive diffuse lymphadenopathy throughout the chest, abdomen, and pelvis which is highly suggestive of malignancy/metastatic disease. 2. Hepatosplenomegaly. This can be seen with leukemia/lymphoma. 3. There are extensive reticulonodular opacities throughout the entire left lung. This is nonspecific but can be seen with infection/bronchopneumonia. Malignancy/metastatic disease is also possible. There is a more focal area of consolidation within the lower lobe of the left lung suggestive of atelectasis or pneumonia. 4. Small to moderate left pleural effusion. Small right pleural effusion. 5. Moderate pericardial effusion. 6. Diffuse subcutaneous edema throughout the upper chest. 7. Mild diffuse mesenteric edema. Free pelvic fluid. 8. Multiple lytic lesions in the iliac wings bilaterally. Heterogeneous lytic appearance of the L4 vertebral body with a pathologic inferior endplate L4 vertebral body fracture. There are other less pronounced scattered areas of osteolysis throughout the thoracic spine. The appearance is suggestive of diffuse osseous metastatic disease. 9. There appears to be an area of clot within the superior vena cava adjacent to the chest port catheter. Ordered By: SHASHANK ZAVALA Interpreted By: Sheldon Laboy DO, 04/14/2022 5:24 PM 04/05/22 193 XR CHEST PORTABLE Final result Impression: IMPRESSION: Hazy opacities in the mid to lower left lung, likely representing pneumonia. Dictated By: Yomi Rosales on 04/05/2022 7:36 PM The attending radiologist has reviewed the image(s) and agrees with the content of this report. Ordered By: MAKAYLA GORDON Interpreted By: Yomi Rosales, 04/05/2022 7:36 PM Vital Signs at Discharge: Filed Vitals: 04/15/22 2325 04/16/22 0128 04/16/22 0435 04/16/22 0839 BP: 121/82 (!) 151/71 126/68 129/68 Pulse: 81 104 101 103 Resp: 18 20 20 18 Temp: 96.6 ??F (35.9 ??C) 97.2 ??F (36.2 ??C) 97.3 ??F (36.3 ??C) 97.1 ??F (36.2 ??C) TempSrc: Tympanic Tympanic Tympanic SpO2: 97% 96% 95% Weight: Height: Last labs past 24 hours: Recent Results (from the past 24 hour(s)) HEPARIN, ANTI XA, UFH Collection Time: 04/15/22 2:10 PM Result Value Ref Range HEPARIN 0.06 (L) 0.30 - 0.70 IU/ML HEPARIN, ANTI XA, UFH Collection Time: 04/15/22 9:05 PM Result Value Ref Range HEPARIN 0.16 (L) 0.30 - 0.70 IU/ML HEPARIN, ANTI XA, UFH Collection Time: 04/16/22 3:44 AM Result Value Ref Range HEPARIN 0.21 (L) 0.30 - 0.70 IU/ML Vancomycin Random Level Collection Time: 04/16/22 6:02 AM Result Value Ref Range VANCOMYCIN RANDOM 7.3 MCG/ML COMPREHENSIVE METABOLIC PANEL Collection Time: 04/16/22 6:02 AM Result Value Ref Range SODIUM 136 136 - 145 MMOL/L POTASSIUM 3.6 3.5 - 5.1 MMOL/L CHLORIDE S/P/B 98 98 - 107 MMOL/L CO2 28.7 21.0 - 32.0 MMOL/L GLUCOSE 236 (H) 70 - 99 MG/DL BUN 15 6 - 24 MG/DL CREATININE S/P/B 0.98 0.70 - 1.30 MG/DL CALCIUM 9.1 8.4 - 10.5 MG/DL BILIRUBIN TOTAL S/P/B 0.3 0.2 - 1.0 MG/DL ALKALINE PHOSPHATASE S/P/B 201 (H) 45 - 115 U/L AST 18 15 - 37 U/L ALT 13 (L) 16 - 63 U/L TOTAL PROTEIN S/P/B 7.3 6.4 - 8.2 G/DL ALBUMIN S/P/B 1.6 (L) 3.4 - 5.0 G/DL ANION GAP 9.3 5.0 - 15.0 MMOL/L OSMOLALITY (CALC) 290 MOSM/KG GFR ESTIMATE >90 >89 ML/MIN/1.73 M2 GFR NOTES GFR REFERENCES: CBC W/DIFF AUTOMATED Collection Time: 04/16/22 6:02 AM Result Value Ref Range WBC 19.6 (H) 4.0 - 10.8 x10'3/uL RBC 4.12 (L) 4.50 - 6.10 x10'6/uL HGB 8.4 (L) 13.0 - 18.0 G/DL HCT 29.4 (L) 37.0 - 52.0 % MCV 71.4 (L) 78.0 - 100.0 FL MCH 20.4 (L) 27.0 - 31.0 PG MCHC 28.6 (L) 33.0 - 36.0 G/DL RDW 19.2 (H) 11.5 - 14.5 % PLT 696 (H) 150 - 350 x10'3/uL MPV 8.9 7.4 - 10.4 FL Differential Comment NORMAL REFERENCE RANGE NOT ESTABLISHED FOR THE PROPORTIONAL LEUKOCYTE DIFFERENTIAL. SEG NEUTROPHILS 94.8 % LYMPHOCYTES 1.5 % MONOCYTES 2.6 % EOSINOPHILS 0.0 % BASOPHILS 0.2 % IMMATURE GRANS 0.9 % NRBC 0.0 % ABS. NEUTROPHILS 18.58 (H) 1.60 - 8.30 x10'3/uL ABS. LYMPHOCYTES 0.29 (L) 0.80 - 4.70 x10'3/uL ABS. MONOCYTES 0.51 0.00 - 1.50 x10'3/uL ABS. EOSINOPHILS 0.00 0.00 - 0.40 x10'3/uL ABS. BASOPHILS 0.04 0.00 - 0.20 x10'3/uL ABS. IMMATURE GRANULOCYTES 0.18 (H) 0.00 - 0.03 x10'3/uL ABS. NUCLEATED RBC'S 0.00 0.00 x10'3/uL PLT MORPH. INCREASED RBC MORPHOLOGY 2+ HEPARIN, ANTI XA, UFH Collection Time: 04/16/22 10:10 AM Result Value Ref Range HEPARIN 0.29 (L) 0.30 - 0.70 IU/ML Discharge Medications: Medication List START taking these medications Morning Afternoon Evening Bedtime As Needed apixaban 5 MG tablet Commonly known as: ELIQUIS Take 1 tablet (5 mg total) by mouth 2 (two) times daily. levoFLOXacin 750 MG tablet Commonly known as: LEVAQUIN Take 1 tablet (750 mg total) by mouth daily for 10 days. predniSONE 50 MG tablet Take 1 tablet (50 mg total) by mouth daily for 5 days. CONTINUE taking these medications Morning Afternoon Evening Bedtime As Needed albuterol sulfate HFA 108 (90 Base) MCG/ACT inhaler Inhale 2 puffs into the lungs every 6 (six) hours as needed for Wheezing. HYDROcodone-acetaminophen 5-325 MG tablet Commonly known as: NORCO Take 1 tablet by mouth every 6 (six) hours as needed for Pain. potassium chloride CR 10 MEQ tablet Commonly known as: KLOR-CON M Take 1 tablet (10 mEq total) by mouth daily for 14 days. Last time this was given: 10 mEq on April 16, 2022 8:40 AM Medications Discontinued during this hospitalization: Disposition: discharged to home Durable Medical Equipment Needed: none Patient Instructions: Activity: activity as tolerated Diet: regular diet Wound Care: none needed Follow-up appointments: PCP in 1 week and oncologist - Dr. Ashford, on Wednesday, April 24, 2022 at 09:30 Findings that require further workup: thrombocytosis Time Spent on Discharge Less than 30 minutes Signed: DEVIN BLANCA Student LUIS ChaS Patient seen and staffed with: Zainab Tyson NP Cosigned by Alexei Tan MD at 04/17/2022 8:12 AM CDT Associated attestation - Alexei Tan MD - 04/17/2022 8:12 AM CDT I, ALEXEI TAN MD, participated in the care of this patient today and discussed the plan of care with , GUS, who shared in this visit. I have reviewed the GUS's documentation and agree with the findings except as I have documented. I personally spent 15 minutes, caring for this patient. ALEXEI TAN MD documented in this encounter Discharge Instructions * Discharge Instructions* Rama Chahal RN - 04/16/2022 1:18 PM CDT Images from the original note were not included. A Prior Auth request has been approved by [employer] for 30 additional days of Eliquis beyond the initial 30 day free trial. If your provider would like for you to continue this beyond this time period, they will be required to extend the auth. documented in this encounter Medications at Time of Discharge albuterol sulfate HFA 108 (90 Base) MCG/ACT inhaler Inhale 2 puffs into the lungs every 6 (six) hours as needed for Wheezing. 8 g 04/06/2022 12/15/2022 apixaban (ELIQUIS) 5 MG tablet Take 1 tablet (5 mg total) by mouth 2 (two) times daily. 60 tablet 04/16/2022 12/15/2022 HYDROcodone-aceta minophen (NORCO) 5-325 MG tablet Take 1 tablet by mouth every 6 (six) hours. 05/23/2024 levoFLOXacin (LEVAQUIN) 750 MG tablet Take 1 tablet (750 mg total) by mouth daily for 10 days. 10 tablet 04/16/2022 04/26/2022 potassium chloride CR (KLOR-CON M) 10 MEQ tablet Take 1 tablet (10 mEq total) by mouth daily for 14 days. 14 tablet 04/06/2022 04/20/2022 predniSONE 50 MG tablet Take 1 tablet (50 mg total) by mouth daily for 5 days. 5 tablet 04/16/2022 04/21/2022 documented as of this encounter Progress Notes * LUIS Waters - 04/16/2022 2:04 PM CDT Dear LUIS Waters : Chart review has indicated your clinical opinion is needed regarding the following diagnosis. Please continue to document your diagnoses on subsequent Progress Notes through to the Discharge Summary. Kedar Capone Male, 32 years, 1990 Acct ID: [id number] CLINICAL INDICATORS: ER Provider Notes 04/14- Dr. Zavala: I then also spoke to the oncologist on-call for Dr. Ashford and MARILIN Dr. Zavaleta who agreed that the patient should be transferred due to the outpatient treatment failure with the pneumonia findings and potential for needing the Port-A-Cath removed. He feels the superior vena cava syndrome is not related to malignancy but related to the Port-A-Cath and the resultant blood clot. H&P 04/15- LUIS Waters: CT scan also showed a thrombosis of the superior vena cava which was located underneath his port catheter. 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 #Superior Vena Cava Syndrome #Thrombosis of Superior Vena Cava #Thrombocytosis Patient has right-sided chest port catheter. CT neck showed a clot within the superior vena cava adjacent to the catheter. There is also diffusesubcutaneous edema throughout the neck and upper chest. 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 CT also showed retropharyngeal edema measuring approximately 8-9 mm in maximal thickness Thrombocytosis at 536 upon admission, repeat 539 Patient started on Heparin in the ED, continued - dosed by pharmacy (day 2) Denies difficulty swallowing or shortness of breath On room air - 96% Monitor 1. Based on medical judgment and consideration of these clinical indicators, the following condition was evaluated, monitored and/or treated during this episode of care: Can you please further specify the etiology of the thrombosis of the superior vena cava, if known? -Thrombosis of the superior vena cava due to port catheter Your response serves as your authenticated entry to the Legal Medical Record. The fact that a question is asked does not imply that any particular diagnosis is desired or expected. Thank you, Mary Jo Bowser [facility] Revenue [employer] Management [facility] Phone * Rama Chahal RN - 04/16/2022 1:33 PM CDT Images from the original note were not included. Eliquis 30 day free trial card given to patient. Patient to review packet. Prior Auth received from [place] to continue the Eliquis after the 30 day free trial Is completed.Patient will need to have provider extend this if treatment goes beyond 60 days. * Shannon Bauer [facility] - 04/16/2022 12:11 PM CDT Vancomycin Pharmacokinetic Progress Note Kedar Capone is a 32-year-old male for which pharmacy has been consulted to dose vancomycin forPneumonia. Other antibiotics ordered include CEFEPIME Allergies: No Known Allergies Height: 5' 6 (1.676 m) Weight: 71 kg (156 lb 9.6 oz) Body mass index is 25.28 kg/m??. Temp (24 hr max): Temp Av.4 ??F (36.3 ??C) Min: 96.6 ??F (35.9 ??C) Max: 98.8 ??F (37.1 ??C) Today's labs and vitals: Lab Results Component Value Date/Time WBC 19.6 (H) 04/16/2022 06:02 AM WBC 6.6 04/15/2022 03:20 AM WBC 11.8 (H) 04/14/2022 04:15 PM WBC 21.9 (H) 04/06/2022 06:08 AM WBC 18.5 (H) 04/05/2022 07:30 PM Lab Results Component Value Date/Time CR 0.98 04/16/2022 06:02 AM CR 1.00 04/15/2022 07:43 AM CR 1.03 04/14/2022 04:15 PM CR 1.06 04/06/2022 06:08 AM CR 1.03 04/05/2022 07:30 PM CrCl = estimated creatinine clearance is 96.7 mL/min (based on SCr of 0.98 mg/dL). Intake/Output Summary (Last 24 hours) at 04/16/2022 1211 Last data filed at 04/16/2022 1040 Gross per 24 hour Intake 2119.9 ml Output -- Net 2119.9 ml Pertinent Cultures: Date Drawn Site Organism Pertinent Sensitivity Levels: Date Time Level AUC Dose Comments 04-16 06 7.3 373 1GM Q12H Assessment: Kedar Capone is a 32-year-old male who is currently receiving vancomycin. AUC goal is 400 - 600 Current AUC level is Subtherapeutic Renal function is Stable Plan: Antibiotic Plan: WILL GIVE ANOTHER 1GM DOSE VANCOMYCIN NOW TO = 2GM THIS AM THEN START 1.5GM Q12H TONIGHT Next level due: 04-18 AT 0600 Pharmacy will continue to follow cultures, clinical status, and appropriateness of therapy. Thank you for the consult. Pharmacy Consult per RONA BAUER [facility] Phone: [phone] 04/16/2022 12:11 PM * Zainab Tyson, COILED COIL INSPECTOR-BC - 04/16/2022 11:19 AM CDT Daily Progress Note Kedar Capone is a 32-year-old male patient. Primary Care Provider: JAY NARAYANAN DO Attending Provider: Alexei Tan MD LOS: 2 Days Reason for admission: 04/14/2022 3:35 PM Subjective: Patient lying down in hospital bed. States he is feeling much better today and is ready to go home.He reports that his swelling in his neck has gone down. He denies shortness of breath or chest pain. No other concerns at this time. Assessment/Plan: #Healthcare Associated Pneumonia #Fever ?? Leukocytosis of 11.8 upon admission, repeat 19.6 today - increase likely secondary to steroid use ?? CT Chest/Abd/Pelvis showed extensive reticulonodular opacities throughout the entire left lung. This is nonspecific but can be seen with infection/bronchopneumonia. Malignancy/metastatic disease is also possible. There is a more focal area of consolidation within the lower lobe of the left lung suggestive of atelectasis or pneumonia. ?? UA was negative ?? Lactic acid normal ?? Blood cultures ordered, no growth 1 day ?? MRSA screening POSITIVE ?? Cefepime started in the ED, continued (day 3) ?? Started Methylprednisolone 80mg IV BID - will start PO prednisone outpatient ?? Afebrile over last 24 hours ?? Tylenol as needed for fevers and pain ?? On room air ?? #Hodgkin Lymphoma #Right Neck Lymphadenopathy ?? History of hodgkin lymphoma ?? CT chest showed extensive diffuse lymphadenopathy throughout the chest, abdomen, and pelvis which is highly suggestive of malignancy/metastatic disease. Also showed hepatosplenomegaly. ?? Has port catheter placed on right chest wall ?? Supposed to start chemotherapy today at [facility] under oncologist, Dr. Ashford, from [facility] Medicine ?? Spoke with Dr. Ashford who recommended patient follow up as an outpatient once discharged home ?? Start IV Methylprednisolone 80mg IV BID to help with lymphadenopathy ?? #Superior Vena Cava Syndrome #Thrombosis of Superior Vena Cava #Thrombocytosis ?? Patient has right-sided chest port catheter. ?? CT neck showed a clot within the superior vena cava adjacent to the catheter. There is also diffuse subcutaneous edema throughout the neck and upper chest. 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 ?? CT also showed retropharyngeal edema measuring approximately 8-9 mm in maximal thickness ?? Thrombocytosis at 536 upon admission, repeat 696 ?? Patient started on Heparin in the ED, continued - dosed by pharmacy (day 3) - will start on Eliquis upon discharge ?? Denies difficulty swallowing or shortness of breath ?? On room air ?? #Anemia ?? Hemoglobin 7.6 upon admission ?? Repeat hemoglobin today was 8.4 ?? Likely secondary to metastatic Hodgkin lymphoma ?? Baseline hemoglobin from last admission similar (8.2 - 7.4) ?? #Alcohol Use Disorder #Methamphetamine Use ?? History of alcohol and methamphetamine use disorders ?? States he has not had alcohol in over 1 week and no methamphetamine use in last 24 hours ?? Received multiple doses (4mg) of ativan during last admission (04/06/22) due to withdrawal symptoms ?? CIWA protocol initiated yesterday ?? No prn meds were given during inpatient stay thus far ?? Monitor Plan - Discharge patient home with plan to follow up with oncologist, Dr. Ashford, on April 24 at 09:30. - Start PO Levaquin due to hospital acquired pneumonia and MRSA+ - Start PO Prednisone 50mg x 5 days - Transition from Heparin to 5mg Eliquis BID prior to discharge Patient Active Problem List Diagnosis ??? Hypokalemia ??? SVC syndrome ??? apixaban 5 mg Oral BID ??? cefepime 2 g Intravenous Q8H ??? folic acid 1 mg Oral Daily Or ??? folic acid 1 mg Intravenous Daily ??? methylPREDNISolone 80 mg Intravenous BID ??? multivitamin 1 tablet Oral Daily ??? potassium chloride CR 10 mEq Oral Daily ??? thiamine 100 mg Oral Daily Or ??? thiamine 100 mg Intravenous Daily ??? vancomycin 1,000 mg Intravenous Q12H ??? vancomycin pharmacy to dose Intravenous See Admin Instructions acetaminophen, albuterol sulfate HFA, LORazepam OR diazePAM, diazePAM, heparin (porcine), HYDROcodone-acetaminophen No Known Allergies Review of Systems: No shortness of breath No chest pain Objective: Blood pressure 129/68, pulse 103, temperature 97.1 ??F (36.2 ??C), resp. rate 18, height 5' 6 (1.676 m), weight 71 kg (156 lb 9.6 oz), SpO2 95 %. Last 5 Recorded Weights 04/14/22 1535 04/14/222029 Weight: 71.7 kg (158 lb) 71 kg (156 lb 9.6 oz) Telemetry: Recent Labs Lab 04/16/22 0602 WBC 19.6* HGB 8.4* PLT 696* Recent Labs Lab 04/16/22 0602 NA 136 K 3.6 CL 98 CO2 28.7 AGAP 9.3 BUN 15 CR 0.98 GLU 236* CA 9.1 ALB 1.6* TBIL 0.3 ALKP 201* AST 18 ALT 13* Recent Labs Lab 04/14/22 1615 INR 1.8* Results for orders placed or performed during the hospital encounter of 04/14/22 (from the past 8736 hour(s)) CULTURE, BACTERIA, BLOOD Collection Time: 04/14/22 4:21 PM Specimen: BLOOD Result Value Ref Range Spec. Description BLOOD Special Requests: NO SPECIAL REQUEST Culture Result: NO GROWTH 1 DAY CULTURE, BACTERIA, BLOOD Collection Time: 04/14/22 4:15 PM Specimen: BLOOD Result Value Ref Range Spec. Description BLOOD Special Requests: NO SPECIAL REQUEST Culture Result: NO GROWTH 1 DAY No results found for this visit on 04/14/22 (from the past 8736 hour(s)). No results found for: TROP estimated creatinine clearance is 96.7 mL/min (based on SCr of 0.98 mg/dL). Intake/Output Summary (Last 24 hours) at 04/16/2022 1155 Last data filed at 04/16/2022 1040 Gross per 24 hour Intake 2119.9 ml Output 300 ml Net 1819.9 ml Physical Exam Vitals and nursing note reviewed. Constitutional: Appearance: Normal appearance. HENT: Head: Normocephalic and atraumatic. Nose: Nose normal. Mouth/Throat: Mouth: Mucous membranes are moist. Eyes: Pupils: Pupils are equal, round, and reactive to light. Neck: Comments: Swelling noted to right side of neck. No erythema or warmth noted. Nontender to palpation Cardiovascular: Rate and Rhythm: Normal rate and regular rhythm. Heart sounds: Normal heart sounds. Comments: Port catheter on right chest wall Pulmonary: Effort: Pulmonary effort is normal. Breath sounds: Normal breath sounds. Abdominal: General: Abdomen is flat. Palpations: Abdomen is soft. Tenderness: There is no abdominal tenderness. Musculoskeletal: General: Normal range of motion. Right lower leg: No edema. Left lower leg: No edema. Skin: General: Skin is warm and dry. Findings: No rash. Neurological: General: No focal deficit present. Mental Status: He is alert and oriented to person, place, and time. DEVIN BLANCA Student 04/16/2022 LUIS Cha-S Patient seen and staffed with: Zainab Tyson NP Cosigned by Alexei Tan MD at 04/17/2022 8:12 AM CDT Associated attestation - Alexei Tan MD - 04/17/2022 8:12 AM CDT I, ALEXEI TAN MD, participated in the care of this patient today and discussed the plan of care with , GUS, who shared in this visit. I have reviewed the GUS's documentation and agree with the findings except as I have documented. I personally spent 15 minutes, caring for this patient. ALEXEI TAN MD * Aileen Coronel RN - 04/16/2022 8:47 AM CDT Problem: Reduced risk for falls/injury Goal: Reduced Risk for Falls/Injury Outcome: Progressing Goal: Reduced Risk of Confusion (Acute vs Chronic) Outcome: Progressing Goal: Reduced Risk of Symptomatic Depression Outcome: Progressing Goal: Reduced Risk of Altered Elimination Outcome: Progressing Goal: Reduced Risk of Dizziness/Vertigo/Balance Outcome: Progressing Goal: Reduced Risk of Polypharmacy Outcome: Progressing Problem: Breathing Pattern - Ineffective Goal: Respiratory rate within specified parameters Outcome: Progressing Problem: Tobacco Use Goal: Knowledge of tobacco-use cessation methods Outcome: Progressing Problem: Skin integrity, Impaired-wound Goal: Absence of new skin breakdown Outcome: Progressing Goal: Evidence of wound healing Outcome: Progressing Problem: Infection - Risk of, Central Venous Catheter-Associated Bloodstream Infection Goal: Absence of Central Venous Catheter Associated Bloodstream Infection Signs and Symptoms Outcome: Progressing * Marcy Blake RN - 04/15/2022 8:29 PM CDT Patient laying in bed. No patient complaints. Scheduled medications given. Call light with in reach. Fall precautions in place. Plan of care continued. Problem: Reduced risk for falls/injury Goal: Reduced Risk for Falls/Injury Outcome: Progressing Goal: Reduced Risk of Confusion (Acute vs Chronic) Outcome: Progressing Goal: Reduced Risk of Symptomatic Depression Outcome: Progressing Goal: Reduced Risk of Altered Elimination Outcome: Progressing Goal: Reduced Risk of Dizziness/Vertigo/Balance Outcome: Progressing Goal: Reduced Risk of Polypharmacy Outcome: Progressing Problem: Breathing Pattern - Ineffective Goal: Respiratory rate within specified parameters Outcome: Progressing Problem: Tobacco Use Goal: Knowledge of tobacco-use cessation methods Outcome: Progressing Problem: Skin integrity, Impaired-wound Goal: Absence of new skin breakdown Outcome: Progressing Goal: Evidence of wound healing Outcome: Progressing Problem: Infection - Risk of, Central Venous Catheter-Associated Bloodstream Infection Goal: Absence of Central Venous Catheter Associated Bloodstream Infection Signs and Symptoms Outcome: Progressing * Rama Chahal RN - 04/15/2022 2:53 PM CDT 04/15/22 5912 Interdisciplinary Group Information Next Conference Date 04/17/22 Interdisciplinary Group Conference Team Members Present Physician;Case/Care management;Nursing;PT/OT;Pharmacy Barriers to Discharge Barriers Not Medically ready;Administering IV meds Not Medically ready follow up Continued Monitoring Administering IV meds follow up IV Cefepime for PNA; IV Vancomycin for PNA; IV heparin Gtt BRYAN unknown * Rama Chahal RN - 04/15/2022 12:12 PM CDT SANDRINE met with patient in room. Patient is known to CM from admission last week. He is in bed and a female friend is laying in bed with him. Patient states he is still living with his aunt. He admits todrug use last week after discharging from hospital. He was due to start Chemo Therapy today for hisMetastatic Hodgkins Lymphoma. States he did not call either [employer] or [employer] from information given to him last week because I forgot. SANDRINE will continue to follow for DCP assistance as needed. 04/15/22 1210 Referral Data Referral Reason Discharge Planning Source of Information Patient;Chart review Patient Information Primary Caregiver Self Support System Immediate family Baseline ADL's Functional Status Independent Living Arrangements Family members Type of Residence Private residence Ambulation Assistance No Bathing/Grooming Assistance No Dressing Assistance No Behavior Oriented;Cooperative Communication Talks;Understands speaking;Understands Monegasque Socioeconomic Needs Caregiver Needed No At Risk of Abuse or Neglect No Psychological Needs: Mental health concerns No Suspected Drug or Alcohol Abuse Yes (States he used last week after dc from [facility]) Inappropriate Patient/Family Behaviors No Difficult Adjustment to Diagnosis No Recent Hospitalization Recent Hospitalization within 30 days Yes Anticipated Discharge Needs Change in Living Arrangements Not Known at this time In-Home Care or Equipment Not Known at this time Vocational and/or Role Loss No Inability to Complete ADL's No Anticipated DC Plan Living Arrangements Family members Support Systems Family members;Parent Type of Residence Private residence Patient expects to be discharged to: Home [place] - Criminal Background check [place] - Is patient going to care home? No * Aileen Coronel RN - 04/15/2022 8:27 AM CDT Problem: Reduced risk for falls/injury Goal: Reduced Risk for Falls/Injury Outcome: Progressing Goal: Reduced Risk of Confusion (Acute vs Chronic) Outcome: Progressing Goal: Reduced Risk of Symptomatic Depression Outcome: Progressing Goal: Reduced Risk of Altered Elimination Outcome: Progressing Goal: Reduced Risk of Dizziness/Vertigo/Balance Outcome: Progressing Goal: Reduced Risk of Polypharmacy Outcome: Progressing Problem: Breathing Pattern - Ineffective Goal: Respiratory rate within specified parameters Outcome: Progressing Problem: Tobacco Use Goal: Knowledge of tobacco-use cessation methods Outcome: Progressing Problem: Skin integrity, Impaired-wound Goal: Absence of new skin breakdown Outcome: Progressing Goal: Evidence of wound healing Outcome: Progressing Problem: Infection - Risk of, Central Venous Catheter-Associated Bloodstream Infection Goal: Absence of Central Venous Catheter Associated Bloodstream Infection Signs and Symptoms Outcome: Progressing * Melvi Jimenez RN - 04/15/2022 6:25 AM CDT Problem: Reduced risk for falls/injury Goal: Reduced Risk for Falls/Injury Outcome: Progressing Goal: Reduced Risk of Confusion (Acute vs Chronic) Outcome: Progressing Goal: Reduced Risk of Symptomatic Depression Outcome: Progressing Goal: Reduced Risk of Altered Elimination Outcome: Progressing Goal: Reduced Risk of Dizziness/Vertigo/Balance Outcome: Progressing Goal: Reduced Risk of Polypharmacy Outcome: Progressing Problem: Breathing Pattern - Ineffective Goal: Respiratory rate within specified parameters Outcome: Progressing Problem: Tobacco Use Goal: Knowledge of tobacco-use cessation methods Outcome: Progressing Problem: Skin integrity, Impaired-wound Goal: Absence of new skin breakdown Outcome: Progressing Goal: Evidence of wound healing Outcome: Progressing Problem: Infection - Risk of, Central Venous Catheter-Associated Bloodstream Infection Goal: Absence of Central Venous Catheter Associated Bloodstream Infection Signs and Symptoms Outcome: Progressing * Zora De La Torre RN - 04/14/2022 9:31 PM CDT Pt is to start chemotherapy 04/15/22 * Nathaniel Wade PharmD - 04/14/2022 8:43 PM CDT Pharmacy Clinical Services: Renal Dose Adjustment Note CREATININE S/P/B Date Value Ref Range Status 04/14/2022 1.03 0.70 - 1.30 MG/DL Final CrCl = estimated creatinine clearance is 92.1 mL/min (based on SCr of 1.03 mg/dL). Weight = 71 kg (156 lb 9.6 oz) According to the patient's renal function, cefepime was adjusted from 1 g every 12 hours to 2 g every 8 hours. Renal adjustment per P&T Policy NATHANIEL WADE PharmD Phone number: [phone] 04/14/2022 8:43 PM * Nathaniel Wade PharmD - 04/14/2022 8:38 PM CDT Vancomycin Pharmacokinetic Progress Note Day 0 of therapy Kedar Capone is a 32-year-old male for which pharmacy has been consulted to dose vancomycin forPneumonia. Other antibiotics ordered include cefepime. Historical vancomycin use: none Allergies: No Known Allergies Height: 5' 6 (1.676 m) Weight: 71.7 kg (158 lb) Body mass index is 25.5 kg/m??. Temp (24 hr max): Temp Av.2 ??F (36.8 ??C) Min: 95.4 ??F (35.2 ??C) Max: 100.9 ??F (38.3 ??C) Today's labs and vitals: Lab Results Component Value Date/Time WBC 11.8 (H) 04/14/2022 04:15 PM WBC 21.9 (H) 04/06/2022 06:08 AM WBC 18.5 (H) 04/05/2022 07:30 PM Lab Results Component Value Date/Time CR 1.03 04/14/2022 04:15 PM CR 1.06 04/06/2022 06:08 AM CR 1.03 04/05/2022 07:30 PM CrCl = estimated creatinine clearance is 92.1 mL/min (based on SCr of 1.03 mg/dL). No intake or output data in the 24 hours ending 04/14/222037 Pertinent Cultures: Date Drawn Site Organism Pertinent Sensitivity 04/05 COVID PCR and antigen Negative 04/14 BCx In process 04/14 MRSA nares Ordered Levels: Date Time Level AUC Dose Comments Assessment: Kedar Capone is a 32-year-old male who is currently receiving vancomycin. AUC goal is 400 - 600 Current AUC level is Pending Renal function is At Baseline Plan: Antibiotic Plan: vancomycin 1000 mg every 12 hours; projected AUC of 442 Next level due: 04/16 with AM labs Pharmacy will continue to follow cultures, clinical status, and appropriateness of therapy. Thank you for the consult. Pharmacy Consult per Dr. Luis Fernando WADE, PharmD Phone: [phone] 04/14/2022 8:38 PM documented in this encounter H&P Notes * Zainab Tyson, COILED COIL INSPECTOR-BC - 04/15/2022 11:44 AM CDT Admission History and Physical History Primary Care Provider: JAY NARAYANAN DO Admitting Provider: Alexei Tan MD Attending Provider: Alexei Tan MD Admission date: 04/14/2022 3:35 PM Kedar Capone is a 32-year-old male with a history of metastatic Hodgkin Lymphoma s/p port catheter who presented to the ER with complaints of fever, chills, and neck swelling beginning 3 days ago. Patient states over the last three days he has noticed an increased swelling on the right side of his neck. He denies any neck pain or tenderness. He also notes associated fevers. Reports his Tmax was 100.9 degrees. He denies taking any medications at home to help with the fever. No chest pain, shortness of breath, abdominal pain, nausea, vomiting, constipation, diarrhea or urinary complaints. Patient has a history of Hodgkin's Lymphoma and was supposed to be starting chemotherapy today at [facility] under Dr. Ashford. He was also recently admitted to [facility] for treatment of pneumonia with antibiotics. The patient states that he completed his antibiotic course without complications. Patient also reported history of alcohol and drug use. During his last admission, CIWA protocol was initiated and Ativan was given multiple times. The patient states he has not used alcohol within the last week. He also states that he has not used methamphetamines within the last 24 hours. Work up in the ED was significant for healthcare-associated pneumonia. 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 The ER physician tried transferring the patient to [facility] in [place], [place] where his oncologist, Dr. Ambrocio Ashford, is located. The hospitalist, Dr. Sera Shannon, refused transfer initially without oncologist accepting. The oncologist on-call for Dr. Ashford was contactedand accepted the patient for transfer. The ER physician then contacted the hospitalist again after the oncologist accepted, but the hospitalist continued to refuse the admission stating that the patient would not receive any different care if the patient stayed here for antibiotics and anticoagulation. He was then admitted to the third floor of [facility] [place] with the initiation of Cefepime and Heparin in the ED. Past Medical History: Diagnosis Date ??? Hodgkin lymphoma, unspecified, unspecified site (CMS/HCC) Past Surgical History: Procedure Laterality Date ??? BIOPSY BONE ??? BIOPSY/EXCISION, LYMPH NODE(S) Social History Tobacco Use ??? Smoking status: Current Every Day Smoker Types: Cigarettes ??? Smokeless tobacco: Never Used ??? Tobacco comment: not smoking very much lately Vaping Use ??? Vaping Use: Never used Substance Use Topics ??? Alcohol use: Yes Comment: decreased etoh use ??? Drug use: Yes Frequency: 1.0 times per week Types: Methamphetamines, Marijuana Comment: no meth for one week Family History Problem Relation Name Age of Onset ??? Cancer Mother ??? Cancer Sister Prior to Admission medications Medication Sig Start Date End Date Taking? Authorizing Provider albuterol sulfate HFA 108 (90 Base) MCG/ACT inhaler Inhale 2 puffs into the lungs every 6 (six) hours as needed for Wheezing. 04/06/22 Yes Beverly Juarez, ANP- HYDROcodone-acetaminophen (NORCO) 5-325 MG tablet Take 1 tablet by mouth every 6 (six) hours as needed for Pain. Yes GENERICPROVIDER, DEFAULT HISTORY potassium chloride CR (KLOR-CON M) 10 MEQ tablet Take 1 tablet (10 mEq total) by mouth daily for 14days. 04/06/22 04/20/22 Yes Preethi Horowitz MD ??? cefepime 2 g Intravenous Q8H ??? folic acid 1 mg Oral Daily Or ??? folic acid 1 mg Intravenous Daily ??? methylPREDNISolone 80 mg Intravenous BID ??? multivitamin 1 tablet Oral Daily ??? potassium chloride CR 10 mEq Oral Daily ??? thiamine 100 mg Oral Daily Or ??? thiamine 100 mg Intravenous Daily ??? vancomycin 1,000 mg Intravenous Q12H ??? vancomycin pharmacy to dose Intravenous See Admin Instructions ??? heparin 23 Units/kg/hr (04/15/22 1124) acetaminophen, albuterol sulfate HFA, LORazepam OR diazePAM, diazePAM, heparin (porcine), heparin (porcine), HYDROcodone-acetaminophen No Known Allergies ROS 10 point ROS negative except otherwise specified in HPI Physical Exam Filed Vitals: 04/15/22 0612 04/15/22 1100 04/15/22 1246 04/15/22 1305 BP: 133/71 130/69 Pulse: 89 99 Resp: 18 20 Temp: 99.7 ??F (37.6 ??C) 97.1 ??F (36.2 ??C) 97 ??F (36.1 ??C) 97.9 ??F (36.6 ??C) TempSrc: Tympanic Tympanic SpO2: 96% Weight: Height: Physical Exam Vitals and nursing note reviewed. Constitutional: Appearance: Normal appearance. HENT: Head: Normocephalic. Nose: Nose normal. Mouth/Throat: Mouth: Mucous membranes are moist. Eyes: Pupils: Pupils are equal, round, and reactive to light. Neck: Comments: Obvious swelling on right side of neck, non-tender. No warmth or erythema noted. Cardiovascular: Rate and Rhythm: Normal rate and regular rhythm. Heart sounds: Normal heart sounds. Comments: Port catheter on right side of chest Pulmonary: Effort: Pulmonary effort is normal. Breath sounds: Normal breath sounds. Abdominal: General: Abdomen is flat. Palpations: Abdomen is soft. Tenderness: There is no abdominal tenderness. There is no guarding or rebound. Musculoskeletal: General: Normal range of motion. Right lower leg: No edema. Left lower leg: No edema. Skin: General: Skin is warm and dry. Findings: No rash. Neurological: General: No focal deficit present. Mental Status: He is alert and oriented to person, place, and time. Recent Labs Lab 04/14/22 16104/15/22 0320 WBC 11.8* 6.6 RBC 3.60* 3.68* HGB 7.6* 7.6* HCT 26.1* 26.5* MCV 72.5* 72.0* MCH 21.1* 20.7* MCHC 29.1* 28.7* PLT 536* 539* RDW 19.5* 19.3* MPV 8.6 8.9 NEUC 9.73* -- LYMC 0.42* 0.40* MONOC 1.45 0.66 EOSC 0.07 0.13 BASOC 0.03 -- Recent Labs Lab 04/14/22 1615 04/15/22 0743 NA 134* 136 K 3.6 3.8 CL 95* 98 CO2 33.2* 28.5 AGAP 5.8 9.5 BUN 8 11 CR 1.03 1.00 GLU 104* 105* CA 8.9 8.4 TP 7.0 6.2* ALB 1.6* 1.6* TBIL 0.6 0.5 ALKP 192* 186* AST 20 18 ALT 7* 10* Recent Labs Lab 04/14/22 1615 INR 1.8* No results for input(s): TROP, TROPIWB in the last 168 hours. Recent Labs Lab 04/15/22 0320 04/15/22 0743 NA -- 136 K -- 3.8 CL -- 98 CO2 -- 28.5 BUN -- 11 CR -- 1.00 CA -- 8.4 GLU -- 105* AGAP -- 9.5 TP -- 6.2* ALB -- 1.6* ALT -- 10* WBC 6.6 -- HGB 7.6* -- PLT 539* -- No results found for this or any previous visit. No results found for this visit on 04/14/22 (from the past 840 hour(s)). Results for orders placed or performed during the hospital encounter of 04/14/22 (from the past 840hour(s)) CULTURE, BACTERIA, BLOOD Collection Time: 04/14/22 4:21 PM Specimen: BLOOD Result Value Ref Range Spec. Description BLOOD Special Requests: NO SPECIAL REQUEST Culture Result: NO GROWTH 1 DAY CULTURE, BACTERIA, BLOOD Collection Time: 04/14/22 4:15 PM Specimen: BLOOD Result Value Ref Range Spec. Description BLOOD Special Requests: NO SPECIAL REQUEST Culture Result: NO GROWTH 1 DAY No results found. Assessment Active Problems: SVC syndrome SNOMED CT(R): SUPERIOR VENA CAVA SYNDROME Plan #Healthcare Associated Pneumonia #Fever ?? Leukocytosis of 11.8 upon admission, repeat 6.6 ?? CT Chest/Abd/Pelvis showed extensive reticulonodular opacities throughout the entire left lung. This is nonspecific but can be seen with infection/bronchopneumonia. Malignancy/metastatic disease is also possible. There is a more focal area of consolidation within the lower lobe of the left lung suggestive of atelectasis or pneumonia. ?? UA was negative ?? Lactic acid normal ?? Blood cultures ordered, pending ?? MRSA screening ordered, pending ?? Cefepime started in the ED, continued (day 2) ?? Start Methylprednisolone 80mg IV BID ?? Febrile this morning - 100.8 degrees ?? Tylenol as needed for fevers and pain ?? On room air ?? Continue to monitor #Hodgkin Lymphoma #Right Neck Lymphadenopathy ?? History of hodgkin lymphoma ?? CT chest showed extensive diffuse lymphadenopathy throughout the chest, abdomen, and pelvis which is highly suggestive of malignancy/metastatic disease. Also showed hepatosplenomegaly. ?? Has port catheter placed on right chest wall ?? Supposed to start chemotherapy today at [facility] under oncologist, Dr. Ashford, from [facility] ?? Spoke with Dr. Ashford who recommended patient follow up as an outpatient once discharged home ?? 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 Patient has right-sided chest port catheter. ?? CT neck showed a clot within the superior vena cava adjacent to the catheter. There is also diffuse subcutaneous edema throughout the neck and upper chest. 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 ?? CT also showed retropharyngeal edema measuring approximately 8-9 mm in maximal thickness ?? Thrombocytosis at 536 upon admission, repeat 539 ?? Patient started on Heparin in the ED, continued - dosed by pharmacy (day 2) ?? Denies difficulty swallowing or shortness of breath ?? On room air - 96% ?? Monitor #Anemia ?? Hemoglobin 7.6 upon admission ?? Repeat hemoglobin was 7.6 ?? Likely secondary to metastatic Hodgkin lymphoma ?? Baseline hemoglobin from last admission similar (8.2 - 7.4) ?? Follow with AM labs #Alcohol Use Disorder #Methamphetamine Use ?? History of alcohol and methamphetamine use disorders ?? States he has not had alcohol in over 1 week and no methamphetamine use in last 24 hours ?? Received multiple doses (4mg) of ativan during last admission (04/06/22) due to withdrawal symptoms ?? CIWA protocol initiated today ?? Monitor DEVIN BLANCA Student LUIS Cha Patient seen and staffed with: Zainab Tyson NP Cosigned by Alexei Tan MD at 04/17/2022 8:37 AM CDT Associated attestation - Alexei Tan MD - 04/17/2022 8:37 AM CDT I, ALEXEI TAN MD, participated in the care of this patient today and discussed the plan of care with , GUS, who shared in this visit. I have reviewed the GUS's documentation and agree with the findings except as I have documented. I personally spent 15 minutes, caring for this patient. ALEXEI TAN MD documented in this encounter Nursing Notes * Aileen Coronel RN - 04/16/2022 11:33 AM CDT Pharmacy advised to not increase heparin dose at this time. CUSTOMER DATA TECHNICIAN Zainab aware. Will continue current rate of 29u/kg/hr. * Aileen Coronel RN - 04/16/2022 10:35 AM CDT Anti XA result 0.29. Notified pharmacy that Heparin gtt order parameters need adjusted from 29 to 30 in order to properly adjust settings per anticoagulation protocol. * Melvi Jimenez RN - 04/14/2022 10:16 PM CDT Pt arrived to room 306 on heparin gtt at 18unit/kg/hr. No initial anti Xa was drawn for baseline. New order for anti Xa placed for 04/15 @ 0035, 6hrs after the start time of heparin gtt at 1835. Willadjust as needed. No signs of bleeding at this time. documented in this encounter ED Notes * Deborah Gage RN - 04/14/2022 7:57 PM CDT Call made to Charge Nurse for bed request. * Deborah Gage RN - 04/14/2022 7:48 PM CDT Dr. Zavala * Deborah Gage RN - 04/14/2022 7:45 PM CDT On the phone with [facility] connect Dr. Shannon * Deborah Gage RN - 04/14/2022 5:50 PM CDT Pt attempting to void using urinal. * Sarai Duncan RN - 04/14/2022 5:00 PM CDT PT TO CT. * Shashank Zavala MD - 04/14/2022 3:42 PM CDT eMERGENCY dEPARTMENT eNCOUnter CHIEF COMPLAINT Chief Complaint Patient presents with ??? Neck Swelling HPI HPI Kedar Capone is a 32-year-old male who presents to the ER with a complaint of fever neck swelling and shaking. Patient is a poor historian history is provided primarily by family who states that he has been sick for the last 24 to 48 hours with right-sided neck swelling fever and shaking. He has history of Hodgkin's lymphoma apparently will is to be starting chemotherapy tomorrow at [facility] under Dr. Ashford. He has not take anything for his temperature. No other complaints at this time. He was just discharged from this facility on Apr 06 after treatment for pneumonia and is finishedthe antibiotics. ALLERGIES No Known Allergies CURRENT MEDICATIONS No current outpatient medications on file. PAST MEDICAL HISTORY Past Medical History: Diagnosis Date ??? Hodgkin lymphoma, unspecified, unspecified site (CMS/HCC) SURGICAL HISTORY Past Surgical History: Procedure Laterality Date ??? BIOPSY BONE ??? BIOPSY/EXCISION, LYMPH NODE(S) SOCIAL HISTORY Social History Socioeconomic History ??? Marital status: Single Tobacco Use ??? Smoking status: Current Every Day Smoker Types: Cigarettes ??? Smokeless tobacco: Never Used Substance and Sexual Activity ??? Alcohol use: Yes ??? Drug use: Yes Frequency: 1.0 times per week Types: Methamphetamines FAMILY HISTORY No family history on file. REVIEW OF SYSTEMS Review of Systems All other ROS negative unless noted above in HPI. PHYSICAL EXAM Physical Exam Filed Vitals: 04/14/22 1900 04/14/22191404/14/22192904/14/222029 BP: 136/64 125/70 122/59 117/61 Pulse: 84 79 81 74 Resp: 16 Temp: 96.2 ??F (35.7 ??C) TempSrc: Temporal SpO2: 94% 97% 95% 98% Weight: 71 kg (156 lb 9.6 oz) Height: 5' 6 (1.676 m) The patient is a well developed and well nourished but chronically ill-appearing adult male in milddistress, alert and oriented. HEENT: PERRL, EOMI, conjunctiva pale Nose without drainage Throat without lesions, mucous membranes moist NECK: Supple with diffuse soft tissue swelling to the right side of the neck no obvious abscess or overlying erythema CHEST: Lungs clear and equal to auscultation Heart regular rate and rhythm without murmur ABD: Soft, NABS, non tender EXT: No clubbing, cyanosis, edema NEURO: CN II-XII intact, no focal weakness SKIN: No rash or significant lesions EKG RADIOLOGY CT SOFT TISSUE NECK W CON Final Result by User, [id number] (04/14 1746) EXAMINATION: CT SOFT TISSUE NECK W CON HISTORY: Neck pain. Swelling. Concern for infection. COMPARISON: None. TECHNIQUE: Axial CT images of the neck after the uneventful intravenous demonstration of 95 mL of Isovue-370 given through the left antecubital fossa. Sagittal and coronal reformatted image sets. A dose lowering technique was used for this procedure, which may include, but is not limited to, dose reduction technique, automated exposure control, the use of degenerative reconstruction, and ALARA/image gently techniques. FINDINGS: There is extensive lymphadenopathy throughout the neck bilaterally. There is bilateral supraclavicular lymphadenopathy. This is highly suggestive of malignancy/metastatic disease. The nasopharynx, oropharynx, hypopharynx, and larynx are negative for acute appearing abnormality. The epiglottis is normally sized. No definite masses are identified. There are tiny bilateral thyroid nodules, highly likely to be benign. The parotid and submandibular glands are unremarkable. There is a right-sided chest port catheter. There appears to be clot within the superior vena cava adjacent to the catheter. There is also diffuse subcutaneous edema throughout the neck and upper chest. 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 There is also retropharyngeal edema measuring approximately 8-9 mm in maximal thickness. No evidence of airway compromise at this time. For the partially included portions of the upper chest, please see the CT chest report. No acute appearing osseous abnormalities. IMPRESSION: 1. There is a right-sided chest port catheter. There appears to be clot within the superior vena cava adjacent to the catheter. There is also diffuse subcutaneous edema throughout the neck and upper chest. 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 2. There is retropharyngeal edema measuring approximately 8-9 mm in maximal thickness. 3. Extensive lymphadenopathy throughout the neck bilaterally. Bilateral supraclavicular lymphadenopathy. This is highly suggestive of malignancy/metastatic disease. 4. No evidence of oropharyngeal mass or airway compromise at this time. Ordered By: SHASHANK ZAVALA Interpreted By: Sheldon Laboy DO, 04/14/2022 5:[address] CHEST+ABD+PEL W CON Final Result by User, [id number] (04/14 5890) EXAMINATION: CT chest/abdomen/pelvis with contrast HISTORY: Neck pain. Abdominal pain. Sepsis. COMPARISON: CT pelvis 06/27/2019. TECHNIQUE: Axial CT images of the chest, abdomen, and pelvis after the uneventful intravenous administration of 95 mL of Isovue 370 given through the left antecubital fossa. Sagittal and coronal reformatted image sets. A dose lowering technique was used for this procedure, which may include, but is not limited to, dose reduction technique, automated exposure control, the use of degenerative reconstruction, and ALARA/image gently techniques. FINDINGS: Chest: There is motion artifact which limits detailed evaluation. There are numerous enlarged and partially necrotic mediastinal and hilar lymph nodes, highly suggestive of metastatic lymphadenopathy. There are extensive reticulonodular opacities throughout the entire left lung. This is nonspecific and could be related to infection/bronchopneumonia. Malignancy/metastatic disease is also possible. There is a more focal area of consolidation within the left lower lobe which could be related to atelectasis or pneumonia. There is a small to moderate left pleural effusion. There is a small right pleural effusion. The heart appears normally sized. There is a moderate pericardial effusion. The aorta is normal caliber. There are markedly enlarged bilateral axillary lymph nodes suggestive of malignancy. There is diffuse subcutaneous edema. There is a right-sided chest port with the distal tip in the superior vena cava. There appears to be an area of clotting within the superior vena cava adjacent to the chest port catheter. Clinical correlation for history of malignancy is recommended. Abdomen/pelvis: There is motion artifact which limits detailed evaluation. The liver is enlarged with a normal contour. No definite hepatic masses are identified. There is no cholelithiasis. No biliary ductal dilatation. No definite acute pancreatic abnormalities. The spleen is enlarged the spleen is somewhat heterogeneous. The adrenal glands appear normally sized. The kidneys enhance symmetrically. No evidence of renal mass. No hydronephrosis or nephrolithiasis. The abdominal aorta is normal caliber. There are numerous enlarged retroperitoneal lymph nodes. There are multiple enlarged mesenteric and pelvic lymph nodes. No evidence of bowel obstruction. There appears to be mild diffuse mesenteric edema. Detailed evaluation of the bowel is limited. There are no herniated bowel loops. The urinary bladder is unremarkable. There is free pelvic fluid. There is a fat-containing left inguinal hernia. Osseous: There are multiple lytic lesions in the iliac wings bilaterally. There is a heterogeneous lytic appearance of the L4 vertebral body. There are other scattered areas of osteolysis throughout the thoracic spine. These findings are suggestive of osseous metastatic disease. There is a pathologic inferior endplate compression fracture of L4. A superimposed infectious process is not excluded. IMPRESSION: 1. Extensive diffuse lymphadenopathy throughout the chest, abdomen, and pelvis which is highly suggestive of malignancy/metastatic disease. 2. Hepatosplenomegaly. This can be seen with leukemia/lymphoma. 3. There are extensive reticulonodular opacities throughout the entire left lung. This is nonspecific but can be seen with infection/bronchopneumonia. Malignancy/metastatic disease is also possible. There is a more focal area of consolidation within the lower lobe of the left lung suggestive of atelectasis or pneumonia. 4. Small to moderate left pleural effusion. Small right pleural effusion. 5. Moderate pericardial effusion. 6. Diffuse subcutaneous edema throughout the upper chest. 7. Mild diffuse mesenteric edema. Free pelvic fluid. 8. Multiple lytic lesions in the iliac wings bilaterally. Heterogeneous lytic appearance of the L4 vertebral body with a pathologic inferior endplate L4 vertebral body fracture. There are other less pronounced scattered areas of osteolysis throughout the thoracic spine. The appearance is suggestive of diffuse osseous metastatic disease. 9. There appears to be an area of clot within the superior vena cava adjacent to the chest port catheter. Ordered By: SHASHANK ZAVALA Interpreted By: Sheldon Laboy DO, 04/14/2022 5:24 PM LABS Results for orders placed or performed during the hospital encounter of 04/14/22 CBC W/DIFF AUTOMATED Result Value Ref Range WBC 11.8 (H) 4.0 - 10.8 x10'3/uL RBC 3.60 (L) 4.50 - 6.10 x10'6/uL HGB 7.6 (L) 13.0 - 18.0 G/DL HCT 26.1 (L) 37.0 - 52.0 % MCV 72.5 (L) 78.0 - 100.0 FL MCH 21.1 (L) 27.0 - 31.0 PG MCHC 29.1 (L) 33.0 - 36.0 G/DL RDW 19.5 (H) 11.5 - 14.5 % PLT 536 (H) 150 - 350 x10'3/uL MPV 8.6 7.4 - 10.4 FL Differential Comment NORMAL REFERENCE RANGE NOT ESTABLISHED FOR THE PROPORTIONAL LEUKOCYTE DIFFERENTIAL. SEG NEUTROPHILS 82.3 % LYMPHOCYTES 3.6 % MONOCYTES 12.3 % EOSINOPHILS 0.6 % BASOPHILS 0.3 % IMMATURE GRANS 0.9 % NRBC 0.0 % ABS. NEUTROPHILS 9.73 (H) 1.60 - 8.30 x10'3/uL ABS. LYMPHOCYTES 0.42 (L) 0.80 - 4.70 x10'3/uL ABS. MONOCYTES 1.45 0.00 - 1.50 x10'3/uL ABS. EOSINOPHILS 0.07 0.00 - 0.40 x10'3/uL ABS. BASOPHILS 0.03 0.00 - 0.20 x10'3/uL ABS. IMMATURE GRANULOCYTES 0.11 (H) 0.00 - 0.03 x10'3/uL ABS. NUCLEATED RBC'S 0.00 0.00 x10'3/uL PROTIME/INR, VENOUS Result Value Ref Range Protime 21.7 (H) 9.4 - 12.5 SEC INR 1.8 (H) 0.8 - 1.0 PARTIAL THROMBOPLASTIN TIME,PTT Result Value Ref Range PTT 34.5 25.1 - 36.5 SEC COMPREHENSIVE METABOLIC PANEL Result Value Ref Range SODIUM 134 (L) 136 - 145 MMOL/L POTASSIUM 3.6 3.5 - 5.1 MMOL/L CHLORIDE S/P/B 95 (L) 98 - 107 MMOL/L CO2 33.2 (H) 21.0 - 32.0 MMOL/L GLUCOSE 104 (H) 70 - 99 MG/DL BUN 8 6 - 24 MG/DL CREATININE S/P/B 1.03 0.70 - 1.30 MG/DL CALCIUM 8.9 8.4 - 10.5 MG/DL BILIRUBIN TOTAL S/P/B 0.6 0.2 - 1.0 MG/DL ALKALINE PHOSPHATASE S/P/B 192 (H) 45 - 115 U/L AST 20 15 - 37 U/L ALT 7 (L) 16 - 63 U/L TOTAL PROTEIN S/P/B 7.0 6.4 - 8.2 G/DL ALBUMIN S/P/B 1.6 (L) 3.4 - 5.0 G/DL ANION GAP 5.8 5.0 - 15.0 MMOL/L OSMOLALITY (CALC) 277 MOSM/KG GFR ESTIMATE >90 >89 ML/MIN/1.73 M2 GFR NOTES GFR REFERENCES: LACTIC ACID Result Value Ref Range LACTIC ACID 1.1 0.4 - 2.0 MMOL/L URINALYSIS WI REFLEX TO CULTURE Specimen: URINE, CLEAN CATCH Result Value Ref Range COLOR (U) DARK YELLOW TRANSPARENCY CLEAR Specific Cook (U) 1.015 1.000 - 1.025 U PH 6.0 5.0 - 8.0 LEUKOCYTE ESTERASE NEGATIVE NEGATIVE NITRITES NEGATIVE NEGATIVE PROTEIN (U) 1+ (A) NEGATIVE URINE GLUCOSE NEGATIVE NEGATIVE U KETONES NEGATIVE NEGATIVE UROBILINOGEN 8.0 (H) <1.0 EU/DL BILIRUBIN (U) NEGATIVE NEGATIVE BLOOD NEGATIVE NEGATIVE WBC/HPF 0-5 0 - 5 /HPF RBC/HPF 0-5 0 - 5 /HPF EPI/LPF RARE /LPF BACTERIA (URINE) TRACE /HPF MUCUS PRESENT CULTURE & SENSITIVITY INDICATED? NOT INDICATED HEPARIN, ANTI XA, UFH Result Value Ref Range HEPARIN <0.04 (L) 0.30 - 0.70 IU/ML ED MEDICATIONS Medications heparin 25,000 units in 250 mL 0.45% NaCl (100 units/mL) infusion (18 Units/kg/hr ?? 71.7 kg Intravenous New Bag 04/14/22 8776) heparin (porcine) injection 2,850 Units (has no administration in time range) heparin (porcine) injection 1,450 Units (has no administration in time range) albuterol sulfate HFA 108 (90 Base) MCG/ACT inhaler 2 puff (has no administration in time range) potassium chloride CR (KLOR-CON M) tablet 10 mEq (has no administration in time range) HYDROcodone-acetaminophen (NORCO) 5-325 MG tablet 1 tablet (has no administration in time range) acetaminophen (TYLENOL) tablet 1,000 mg (has no administration in time range) vancomycin 1000 mg in NS 250 mL IVPB (has no administration in time range) ceFEPIme (MAXIPIME) 2 g in sodium chloride 0.9 % 50 mL IVPB (has no administration in time range) vancomycin pharmacy to dose placeholder (has no administration in time range) acetaminophen (TYLENOL) tablet 1,000 mg (1,000 mg Oral Given 04/14/22 1623) sodium chloride 0.9% bolus infusion 1,000 mL (0 mLs Intravenous Infusion Stop Time 04/14/22 1700) iopamidol (ISOVUE-370) 76 % injection 95 mL (95 mLs Intravenous Given 04/14/22 1712) heparin (porcine) injection 5,750 Units (5,750 Units Intravenous Given 04/14/221827) ceFEPIme (MAXIPIME) 2 g in sodium chloride 0.9 % 50 mL IVPB (0 g Intravenous Infusion Stop Time 04/14/221853) vancomycin 1000 mg in NS 250 mL IVPB (0 mg Intravenous Infusion Stop Time 04/14/222002) PROCEDURES Procedures CONSULTS: ED COURSE & MEDICAL DECISION MAKING [facility] ED Course as of 04/14/222042Apr 14, 20221824 [facility] is not taking any transfers at this time. I placed a call to [facility] in [place] and waiting to hear back. [WM] ED Course User Index [WM] Shashank Zavala MD Patient was hydrated and medicated for fever. Although laboratory studies show no significant change from previous with his chronic anemia and slight white count elevation CT scan results are noted. This is concerning for persistent pneumonia possibly healthcare acquired as well as the findings in the neck. We will start heparin antibiotics and attempt transfer to a tertiary care facility. I initially spoke to the on-call hospitalist at [facility] in [place] Dr. Sera Shannon who stated he cannot accept the patient without oncology consultation. I then spoke to the oncology fellow at [facility] Dr. Chavez. I then also spoke to the oncologist on-call for Dr. Ashford and [facility] Dr. Zavaleta who agreed that the patient should be transferred due to the outpatient treatment failure with thepneumonia findings and potential for needing the Port-A-Cath removed. He feels the superior vena cava syndrome is not related to malignancy but related to the Port-A-Cath and the resultant blood clot. Therefore the patient does not meet criteria for emergent chemotherapy or radiation. They will seethe patient in consultation with the hospitalist to admit. He recommends continuing antibiotics andheparin. I then spoke to Dr. Sera Shannon a second time and told him that oncology would consult and he refused to accept the patient in transfer. He feels that the patient would not receive any different care if the patient stayed here for antibiotics and anticoagulation. I again requested that the patient be transferred as we do not have consultative services here in terms of heme-onc oranybody who can remove the port if needed. In addition I explained that the patient's oncology service felt the patient should be in [place] where they could see the patient. I was not able to change Dr. Shannon's mind and he refused accept the transfer, and he was well aware of my dissatisfaction with the conversation. I then spoke to Dr. Tan on-call here for family medicine and explained the situation. He graciously agreed to admit the patient here at least temporarily for antibiotics and anticoagulation. His suggestion is that our nurse practitioner hospitalist try to reach Dr. Ambrocio Ashford tomorrow to see if the patient could be switched to an oral anticoagulant and if so possibly even discharged if chemotherapy is still a possibility in [place] tomorrow although with the patient's fever it is unclear if that is possible or not. Also if the patient clinically was worsening that they would call back [facility] and attempt transfer a second time. Patient and his family were updated on all of the above. He is admitted in stable condition. FINAL IMPRESSION SNOMED CT(R) 1. Healthcare-associated pneumonia INFECTIVE PNEUMONIA 2. 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 Thrombosis of superior vena cava (CMS/HCC) THROMBOSIS OF SUPERIOR VENA CAVA No follow-up provider specified. Current Discharge Medication List Shashank Zavala MD 04/14/222042 * Deborah Gage RN - 04/14/2022 3:37 PM CDT Pt arrives to ED today with pain and significant swelling to the neck. Pt states that he was diagnosed with Hodgkin's Lymphoma Stage 4 and is to receive chemo tomorrow. Pt states neck is pain ful andstiff. Pt has noticed waking up drenched in sweat yesterday. Mother notices pallor and slurred speech for a few days. No medications have helped resolve. Pt took perscribed hydrocodone last night with no relief. Mother states she has been giving her son, her muscle relaxers Tizanidine 4 mg last took around 11 am today. documented in this encounter Plan of Treatment Not on file documented as of this encounter Goals Goal Patient Goal Type Associated Problems Recent Progress Patient-Stated? Author Safety ? Patient/family will have appropriate support at home upon discharge Rama Elkins RN documented as of this encounter Procedures Procedure Name Priority Date/Time Associated Diagnosis Comments HEPARIN, ANTI XA, UFH TIMED 04/16/2022 10:10 AM CDT COMPREHENSIVE METABOLIC PANEL Routine 04/16/2022 6:02 AM CDT CBC W/DIFF AUTOMATED Routine 04/16/2022 6:02 AM CDT VANCOMYCIN TIMED 04/16/2022 6:02 AM CDT HEPARIN, ANTI XA, UFH TIMED 04/16/2022 3:44 AM CDT HEPARIN, ANTI XA, UFH Routine 04/15/2022 9:05 PM CDT HEPARIN, ANTI XA, UFH Routine 04/15/2022 2:10 PM CDT HEPARIN, ANTI XA, UFH TIMED 04/15/2022 7:43 AM CDT COMPREHENSIVE METABOLIC PANEL Routine 04/15/2022 7:43 AM CDT CBC W/DIFF AUTOMATED Routine 04/15/2022 3:20 AM CDT HEPARIN, ANTI XA, UFH TIMED 04/15/2022 1:05 AM CDT MRSA SCREENING Routine 04/14/2022 9:41 PM CDT URINALYSIS WI REFLEX TO CULTURE STAT 04/14/2022 6:[address] SOFT TISSUE NECK W CON STAT 04/14/2022 5:[address] CHEST+ABD+PEL W CON STAT 5:23 PM CDT CULTURE, BACTERIA, BLOOD STAT 04/14/2022 4:21 PM CDT HEPARIN, ANTI XA, UFH STAT 04/14/2022 4:15 PM CDT PARTIAL THROMBOPLASTIN TIME,PTT STAT 04/14/2022 4:15 PM CDT PROTHROMBIN TIME, VENOUS STAT 04/14/2022 4:15 PM CDT COMPREHENSIVE METABOLIC PANEL STAT 04/14/2022 4:15 PM CDT LACTIC ACID STAT 04/14/2022 4:15 PM CDT CULTURE, BACTERIA, BLOOD Routine 04/14/2022 4:15 PM CDT CBC W/DIFF AUTOMATED STAT 04/14/2022 4:15 PM CDT documented in this encounter Results * (ABNORMAL) HEPARIN, ANTI XA, UFH (04/16/2022 10:10 AM CDT) HEPARIN ANTI XA UFH 0.29(L) 0.30 - 0.70 IU/ML 04/16/2022 10:25 AM CDT [facility] 04/16/2022 10:1 0 AM CDT Alexei Tan MD LABORATORY Final Result [facility] [address] [place] [address], * (ABNORMAL) CBC W/DIFF AUTOMATED (04/16/2022 6:02 AM CDT) WBC 19.6(H) 4.0 - 10.8 x10'3/uL 04/16/2022 6:32 AM CDT [facility] RBC 4.12(L) 4.50 - 6.10 x10'6/uL 04/16/2022 6:32 AM CDT [facility] HGB 8.4(L) 13.0 - 18.0 G/DL 04/16/2022 6:32 AM CDT [facility] HCT 29.4(L) 37.0 - 52.0 % 04/16/2022 6:32 AM CDT [facility] MCV 71.4(L) 78.0 - 100.0 FL 04/16/2022 6:32 AM CDT [facility] MCH 20.4(L) 27.0 - 31.0 PG 04/16/2022 6:32 AM CDT [facility] MCHC 28.6(L) 33.0 - 36.0 G/DL 04/16/2022 6:32 AM CDT [facility] RDW 19.2(H) 11.5 - 14.5 % 04/16/2022 6:32 AM CDT [facility] PLT 696(H) 150 - 350 x10'3/uL 04/16/2022 6:32 AM CDT [facility] MPV 8.9 7.4 - 10.4 FL 04/16/2022 6:32 AM CDT [facility] DIFFERENTIAL COMMENT NORMAL REFERENCE RANGE NOT ESTABLISHED FOR THE PROPORTIONAL LEUKOCYTE DIFFERENTIAL. 04/16/2022 6:32 AM CDT [facility] SEG NEUTROPHILS 94.8 % 7:11 AM CDT [facility] LYMPHOCYTES 1.5 % 04/16/2022 7:11 AM CDT [facility] MONOCYTES 2.6 % 04/16/2022 7:11 AM CDT [facility] EOSINOPHILS 0.0 % 04/16/2022 7:11 AM CDT [facility] BASOPHILS 0.2 % 04/16/2022 7:11 AM CDT [facility] IMMATURE GRANS % 0.9 % 04/16/20 7:11 AM CDT [facility] NRBC 0.0 % 04/16/2022 7:11 AM CDT [facility] ABS. NEUTROPHILS 18.58(H) 1.60 - 8.30 x10'3/uL 04/16/2022 7:11 AM CDT [facility] ABS. LYMPHOCYTES 0.29(L) 0.80 - 4.70 x10'3/uL 04/16/2022 7:11 AM CDT [facility] ABS. MONOCYTES 0.51 0.00 - 1.50 x10'3/uL 04/16/2022 7:11 AM CDT [facility] ABS. EOSINOPHILS 0.00 0.00 - 0.40 x10'3/uL 04/16/2022 7:11 AM CDT [facility] ABS. BASOPHILS 0.04 0.00 - 0.20 x10'3/uL 04/16/2022 7:11 AM CDT [facility] ABS. IMMATURE GRANULOCYTES 0.18(H) 0.00 - 0.03 x10'3/uL 04/16/2022 7:11 AM CDT [facility] ABS. NUCLEATED RBC'S 0.00 0.00 x10'3/uL 04/16/2022 7:11 AM CDT [facility] PLT MORPH. INCREASED 04/16/2022 7:11 AM CDT [facility] RBC MORPHOLOGY 2+ 04/16/2022 7:11 AM CDT [facility] Comment: ANISOCYTOSIS 1+ POIKILOCYTOSIS 1+ HYPOCHROMASIA 04/16/2022 6:02 AM CDT us Zainab Tyson [facility] Final Resu lt [facility] [address] [place] [address], * (ABNORMAL) COMPREHENSIVE METABOLIC PANEL (04/16/2022 6:02 AM CDT) SODIUM S/P/B 136 136 - 145 MMOL/L 04/16/2022 6:42 AM CDT [facility] POTASSIUM S/P/B 3.6 3.5 - 5.1 MMOL/L 04/16/2022 6:42 AM T [facility] CHLORIDE S/P/B 98 98 - 107 MMOL/L 04/16/2022 6:42 AM T [facility] CO2 28.7 21.0 - 32.0 MMOL/L 04/16/2022 6:42 AM CDT [facility] GLUCOSE 236(H) 70 - 99 MG/DL 04/16/2022 6:42 AM T [facility] Comment: FASTING GLUCOSE 100 TO 125 MG/DL IS CONSISTENT WITH IMPAIRED FASTING GLUCOSE. FASTING GLUCOSE >125 MG/DL IS CONSISTENT WITH DIABETES. RANDOM GLUCOSE >200 MG/DL WITH HYPERGLYCEMIC SYMPTOMS IS CONSISTENT WITH DIABETES. PER ADA GUIDELINES BUN 15 6 - 24 MG/DL 04/16/2022 6:42 AM T [facility] CREATININE S/P/B 0.98 0.70 - 1.30 MG/DL 04/16/2022 6:42 AM CDT [facility] CALCIUM S/P/B 9.1 8.4 - 10.5 MG/DL 04/16/2022 6:42 AM T [facility] BILIRUBIN TOTAL S/P/B 0.3 0.2 - 1.0 MG/DL 04/16/2022 6:42 AM T [facility] Comment: THIS ASSAY IS NOT RECOMMENDED FOR PATIENTS UNDERGOING TREATMENT WITH ELTROMBOPAG DUE TO THE POTENTIAL FOR FALSELY ELEVATED RESULTS. ALKALINE PHOSPHATASE S/P/B 201(H) 45 - 115 U/L 04/16/2022 6:42 AM T [facility] AST 18 15 - 37 U/L 04/16/2022 6:42 AM T [facility] ALT 13(L) 16 - 63 U/L 04/16/2022 6:42 AM CDT [facility] TOTAL PROTEIN S/P/B 7.3 6.4 - 8.2 G/DL 04/16/2022 6:42 AM CDT [facility] ALBUMIN S/P/B 1.6(L) 3.4 - 5.0 G/DL 04/16/2022 6:42 AM CDT [facility] ANION GAP 9.3 5.0 - 15.0 MMOL/L 04/16/2022 6:42 AM CDT [facility] OSMOLALITY (CALC) 290 MOSM/KG 022 6:42 AM CDT [facility] Comment:REFERENCE RANGE NOT ESTABLISHED GFR ESTIMATE >90 >89 ML/MIN/1. 73 M2 04/16/2022 6:42 AM CDT [facility] GFR NOTES GFR REFERENCE S: 04/16/2022 6:42 AM CDT [facility] Comment: THE ESTIMATED GFR IS [...] ml/min/1.73 m2 G5,KIDNEY FAILURE: <15 ml/min/1.73 m2 04/16/2022 6:02 AM CDT Zainab Tyson [facility] Final Resu lt [facility] [facility] [place] [address], * Vancomycin Random Level (04/16/2022 6:02 AM CDT) VANCOMYCIN RANDOM 7.3 MCG/ML 04/16/2022 6:53 AM CDT [facility] Comment:REFERENCE RANGE NOT ESTABLISHED 04/16/2022 6:02 AM CDT Shashank Zavala MD LABORATORY Final Result Performing Organization Address City/[facility]/ZIP Co de Phone Number [facility] [address] [place] [address], [place] [phone] * (ABNORMAL) HEPARIN, ANTI XA, UFH (04/16/2022 3:44 AM CDT) HEPARIN ANTI XA UFH 0.21(L) 0.30 - 0.70 IU/ML 04/16/2022 3:58 AM CDT [facility] 04/16/2022 3:44 AM CDT us Alexei Tan MD LABORATORY Final Result Performing Organization Address [facility] Co de Phone Number [facility] [address] [place] [address], [place] [phone] * (ABNORMAL) HEPARIN, ANTI XA, UFH (04/15/2022 9:05 PM CDT) HEPARIN ANTI XA UFH 0.16(L) 0.30 - 0.70 IU/ML 04/15/2022 9:22 PM CDT [facility] 04/15/2022 9:05 PM CDT us Alexei Tan MD LABORATORY Final Result Performing Organization Address [facility] Co de Phone Number [facility] [address] [place] [address], [place] [phone] * (ABNORMAL) HEPARIN, ANTI XA, UFH (04/15/2022 2:10 PM CDT) HEPARIN ANTI XA UFH 0.06(L) 0.30 - 0.70 IU/ML 04/15/2022 2:52 PM CDT [facility] 04/15/2022 2:10 PM CDT us Alexei Tan MD LABORATORY Final Result [facility] [address] [id number], * (ABNORMAL) COMPREHENSIVE METABOLIC PANEL (04/15/2022 7:43 AM CDT) SODIUM S/P/B 136 136 - 145 MMOL/L 04/15/2022 8:35 AM CDT [facility] POTASSIUM S/P/B 3.8 3.5 - 5.1 MMOL/L 04/15/2022 8:35 AM CDT [facility] CHLORIDE S/P/B 98 98 - 107 MMOL/L 04/15/2022 8:35 AM CDT [facility] CO2 28.5 21.0 - 32.0 MMOL/L 04/15/2022 8:35 AM CDT [facility] GLUCOSE 105(H) 70 - 99 MG/DL 04/15/2022 8:35 AM CDT [facility] Comment: FASTING GLUCOSE 100 TO 125 MG/DL IS CONSISTENT WITH IMPAIRED FASTING GLUCOSE. FASTING GLUCOSE >125 MG/DL IS CONSISTENT WITH DIABETES. RANDOM GLUCOSE >200 MG/DL WITH HYPERGLYCEMIC SYMPTOMS IS CONSISTENT WITH DIABETES. PER ADA GUIDELINES BUN 11 6 - 24 MG/DL 04/15/2022 8:35 AM CDT [facility] CREATININE S/P/B 1.00 0.70 - 1.30 MG/DL 04/15/2022 8:35 AM CDT [facility] CALCIUM S/P/B 8.4 8.4 - 10.5 MG/DL 04/15/2022 8:35 AM CDT [facility] BILIRUBIN TOTAL S/P/B 0.5 0.2 - 1.0 MG/DL 04/15/2022 8:35 AM CDT [facility] Comment: THIS ASSAY IS NOT RECOMMENDED FOR PATIENTS UNDERGOING TREATMENT WITH ELTROMBOPAG DUE TO THE POTENTIAL FOR FALSELY ELEVATED RESULTS. ALKALINE PHOSPHATASE S/P/B 186(H) 45 - 115 U/L 04/15/2022 8:35 AM CDT [facility] AST 18 15 - 37 U/L 04/15/2022 8:35 AM CDT [facility] ALT 10(L) 16 - 63 U/L 04/15/2022 8:35 AM CDT [facility] TOTAL PROTEIN S/P/B 6.2(L) 6.4 - 8.2 G/DL 04/15/2022 8:35 AM CDT [facility] ALBUMIN S/P/B 1.6(L) 3.4 - 5.0 G/DL 04/15/2022 8:35 AM CDT [facility] ANION GAP 9.5 5.0 - 15.0 MMOL/L 04/15/2022 8:35 AM CDT [facility] OSMOLALITY (CALC) 282 MOSM/KG 022 8:35 AM CDT [facility] Comment:REFERENCE RANGE NOT ESTABLISHED GFR ESTIMATE >90 >89 ML/MIN/1. 73 M2 04/15/2022 8:35 AM CDT [facility] GFR NOTES GFR REFERENCE S: 04/15/2022 8:35 AM CDT [facility] Comment: THE ESTIMATED GFR IS [...] ml/min/1.73 m2 G5,KIDNEY FAILURE: <15 ml/min/1.73 m2 04/15/2022 7:43 AM CDT us Zainab Tyson [facility]- LABORATORY Final Resu lt [facility] [address] [place] [address], * (ABNORMAL) HEPARIN, ANTI XA, UFH (04/15/2022 7:43 AM CDT) Pathologist [facility] HEPARIN ANTI XA UFH 0.11(L) 0.30 - 0.70 IU/ML 04/15/2022 8:00 AM CDT [facility] 04/15/2022 7:43 AM CDT Alexei Tan MD LABORATORY Final Result [facility] [address] [place] [address], * (ABNORMAL) CBC W/DIFF AUTOMATED (04/15/2022 3:20 AM CDT) [facility] WBC 6.6 4.0 - 10.8 x10'3/uL 04/15/2022 3:27 AM CDT [facility] RBC 3.68(L) 4.50 - 6.10 x10'6/uL 04/15/2022 3:27 AM CDT [facility] HGB 7.6(L) 13.0 - 18.0 G/DL 04/15/2022 3:27 AM CDT [facility] HCT 26.5(L) 37.0 - 52.0 % 04/15/2022 3:27 AM CDT [facility] MCV 72.0(L) 78.0 - 100.0 FL 04/15/2022 3:27 AM CDT [facility] MCH 20.7(L) 27.0 - 31.0 PG 04/15/2022 3:27 AM CDT [facility] MCHC 28.7(L) 33.0 - 36.0 G/DL 04/15/2022 3:27 AM CDT [facility] RDW 19.3(H) 11.5 - 14.5 % 04/15/2022 3:27 AM CDT [facility] PLT 539(H) 150 - 350 x10'3/uL 04/15/2022 3:27 AM CDT [facility] MPV 8.9 7.4 - 10.4 FL 04/15/2022 3:27 AM CDT [facility] DIFFERENTIAL COMMENT NORMAL REFERENCE RANGE NOT ESTABLISHED FOR THE PROPORTIONAL LEUKOCYTE DIFFERENTIAL. 04/15/2022 3:27 AM CDT [facility] SEG NEUTROPHILS 82 % 3:30 AM CDT [facility] LYMPHOCYTES 6 % 04/15/2022 3:30 AM CDT [facility] MONOCYTES 10 % 04/15/2022 3:30 AM CDT [facility] EOSINOPHILS 2 % 04/15/2022 3:30 AM CDT [facility] ABS. NEUTROPHILS CALCULATED 5.41 1.60 - 8.30 x10'3/uL 04/15/2022 3:30 AM CDT [facility] ABS. LYMPHOCYTES 0.40(L) 0.80 - 4.70 x10'3/uL 04/15/2022 3:30 AM CDT [facility] ABS. MONOCYTES 0.66 0.10 - 1.50 x10'3/uL 04/15/2022 3:30 AM CDT [facility] ABS. EOSINOPHILS 0.13 0.00 - 0.40 x10'3/uL 04/15/2022 3:30 AM CDT [facility] PLT MORPH. INCREASED 04/15/2022 3:30 AM CDT [facility] RBC MORPHOLOGY 2+ 04/15/2022 3:30 AM CDT [facility] Comment:HYPOCHROMASIA 04/15/2022 3:20 AM CDT us Shashank Zavala MD LABORATORY Final Result [facility] [address] [place] [address], * (ABNORMAL) HEPARIN, ANTI XA, UFH (04/15/2022 1:05 AM CDT) HEPARIN ANTI XA UFH 0.08(L) 0.30 - 0.70 IU/ML 04/15/2022 1:33 AM CDT [facility] 04/15/2022 1:05 AM CDT Riccardo Mario MD LABORATORY Final Resul t Performing Organization Address [facility] Co de Phone Number [facility] [address] [place] [address], * MRSA SCREENING (04/14/2022 9:41 PM CDT) SPECIMEN SOURCE RESPIRATORY, NOSE 04/14/2022 9:42 PM CDT [facility] MRSA BY PCR NASAL METHICILLIN RESISTANT STAPH AUREUS DETECTED. 04/16/2022 11:31 AM CDT [facility] Comment: CRITICAL RESULT, SPECIMEN DATE, TIME WERE READ BACK BY SHERRELL FROM [facility] AT 1130 ON [id number]. DC CALLED TO [facility] 04/16/2022 1139 R and V NASAL STRUCTURE / Unknown 04/14/2022 9:41 PM CDT Shashank Zavala MD MICROBIOLOGY - GENERAL ORDERA BLES Final Result Performing Organization Address [facility] de Phone Number [facility] [address] [place] [address], * (ABNORMAL) URINALYSIS WI REFLEX TO CULTURE (04/14/2022 6:09 PM CDT) COLOR (U) DARK YELLOW 04/14/2022 6:30 PM CDT [facility] TRANSPARENCY CLEAR 04/14/2022 6:30 PM CDT [facility] SPECIFIC GRAVITY (U) 1.015 1.000 - 1.025 04/14/2022 6:30 PM CDT [facility] U PH 6.0 5.0 - 8.0 04/14/2022 6:30 PM CDT [facility] LEUKOCYTES (U) NEGATIVE NEGATIVE 04/14/2022 6:30 PM CDT [facility] NITRITES NEGATIVE NEGATIVE 04/14/2022 6:30 PM CDT [facility] PROTEIN (U) 1+(A) NEGATIVE 04/14/2022 6:30 PM CDT [facility] URINE GLUCOSE NEGATIVE NEGATIVE 04/14/2022 6:30 PM CDT [facility] KETONES MG/DL (U) NEGATIVE NEGATIVE 04/14/2022 6:30 PM CDT [facility] UROBILINOGEN 8.0(H) <1.0 EU/DL 04/14/2022 6:30 PM CDT [facility] Comment:EQUAL TO OR GREATER THAN BILIRUBIN (U) NEGATIVE NEGATIVE 04/14/2022 6:30 PM CDT [facility] BLOOD (U) NEGATIVE NEGATIVE 04/14/2022 6:30 PM CDT [facility] WBC/HPF 0-5 0 - 5 /HPF 04/14/2022 6:30 PM CDT [facility] RBC/HPF 0-5 0 - 5 /HPF 04/14/2022 6:30 PM CDT [facility] EPI/LPF RARE /LPF 04/14/2022 6:30 PM CDT [facility] BACTERIA (U) TRACE /HPF 04/14/2022 6:30 PM CDT [facility] MUCUS PRESENT 04/14/2022 6:30 PM CDT [facility] CULTURE & SENSITIVITY INDICATED? NOT INDICATED 04/14/2022 6:30 PM CDT [facility] URINE SPECIMEN OBTAINED BY CLEAN CATCH PROCEDURE / Unknown 04/14/2022 6:09 PM CDT us Shashank Zavala MD URINE ORDERABLES Final Result [facility] [address] [place] [address], * CT CHEST+ABD+PEL W CON (04/14/2022 5:23 PM CDT) Anatomical Region Laterality Modality Chest, Abdomen, Pelvis Computed Tomography 04/14/2022 5:24 PM CDT Impressions 04/14/2022 5:39 PM CDT IMPRESSION: 1. Extensive diffuse lymphadenopathy throughout the chest, abdomen, and pelvis which is highly suggestive of malignancy/metastatic disease. 2. Hepatosplenomegaly. This can be seen with leukemia/lymphoma. 3. There are extensive reticulonodular opacities throughout the entire left lung. This is nonspecific but can be seen with infection/bronchopneumonia. Malignancy/metastatic disease is also possible. There is a more focal area of consolidation within the lower lobe of the left lung suggestive of atelectasis or pneumonia. 4. Small to moderate left pleural effusion. Small right pleural effusion. 5. Moderate pericardial effusion. 6. Diffuse subcutaneous edema throughout the upper chest. 7. Mild diffuse mesenteric edema. Free pelvic fluid. 8. Multiple lytic lesions in the iliac wings bilaterally. Heterogeneous lytic appearance of the L4 vertebral body with a pathologic inferior endplate L4 vertebral body fracture. There are other less pronounced scattered areas of osteolysis throughout the thoracic spine. The appearance is suggestive of diffuse osseous metastatic disease. 9. There appears to be an area of clot within the superior vena cava adjacent to the chest port catheter. Ordered By: SHASHANK ZAVALA Interpreted By: Sheldon Laboy DO, 04/14/2022 5:24 PM Narrative 04/14/2022 5:39 PM CDT EXAMINATION: CT chest/abdomen/pelvis with contrast HISTORY: Neck pain. Abdominal pain. Sepsis. COMPARISON: CT pelvis 06/27/2019. TECHNIQUE: Axial CT images of the chest, abdomen, and pelvis after the uneventful intravenous administration of 95 mL of Isovue 370 given through the left antecubital fossa. Sagittal and coronal reformatted image sets. A dose lowering technique was used for this procedure, which may include, but is not limited to, dose reduction technique, automated exposure control, the use of degenerative reconstruction, and ALARA/image gently techniques. FINDINGS: Chest: There is motion artifact which limits detailed evaluation. There are numerous enlarged and partially necrotic mediastinal and hilar lymph nodes, highly suggestive of metastatic lymphadenopathy. There are extensive reticulonodular opacities throughout the entire left lung. This is nonspecific and could be related to infection/bronchopneumonia. Malignancy/metastatic disease is also possible. There is a more focal area of consolidation within the left lower lobe which could be related to atelectasis or pneumonia. There is a small to moderate left pleural effusion. There is a small right pleural effusion. The heart appears normally sized. There is a moderate pericardial effusion. The aorta is normal caliber. There are markedly enlarged bilateral axillary lymph nodes suggestive of malignancy. There is diffuse subcutaneous edema. There is a right-sided chest port with the distal tip in the superior vena cava. There appears to be an area of clotting within the superior vena cava adjacent to the chest port catheter. Clinical correlation for history of malignancy is recommended. Abdomen/pelvis: There is motion artifact which limits detailed evaluation. The liver is enlarged with a normal contour. No definite hepatic masses are identified. There is no cholelithiasis. No biliary ductal dilatation. No definite acute pancreatic abnormalities. The spleen is enlarged the spleen is somewhat heterogeneous. The adrenal glands appear normally sized. The kidneys enhance symmetrically. No evidence of renal mass. No hydronephrosis or nephrolithiasis. The abdominal aorta is normal caliber. There are numerous enlarged retroperitoneal lymph nodes. There are multiple enlarged mesenteric and pelvic lymph nodes. No evidence of bowel obstruction. There appears to be mild diffuse mesenteric edema. Detailed evaluation of the bowel is limited. There are no herniated bowel loops. The urinary bladder is unremarkable. There is free pelvic fluid. There is a fat-containing left inguinal hernia. Osseous: There are multiple lytic lesions in the iliac wings bilaterally. There is a heterogeneous lytic appearance of the L4 vertebral body. There are other scattered areas of osteolysis throughout the thoracic spine. These findings are suggestive of osseous metastatic disease. There is a pathologic inferior endplate compression fracture of L4. A superimposed infectious process is not excluded. Procedure Note Sheldon Laboy, - 04/14/2022 EXAMINATION: CT chest/abdomen/pelvis with contrast HISTORY: Neck pain. Abdominal pain. Sepsis. COMPARISON: CT pelvis 06/27/2019. TECHNIQUE: Axial CT images of the chest, abdomen, and pelvis after the uneventfulintravenous administration of 95 mL of Isovue 370 given through the leftantecubital fossa. Sagittal and coronal reformatted image sets. A dose lowering technique was used for this procedure, which may include,but is not limited to, dose reduction technique, automated exposurecontrol, the use of degenerative reconstruction, and ALARA/image gentlytechniques. FINDINGS: Chest: There is motion artifact which limits detailed evaluation. There are numerous enlarged and partially necrotic mediastinal and hilarlymph nodes, highly suggestive of metastatic lymphadenopathy. There areextensive reticulonodular opacities throughout the entire left lung. Thisis nonspecific and could be related to infection/bronchopneumonia.Malignancy/metastatic disease is also possible. There is a more focal areaof consolidation within the left lower lobe which could be related toatelectasis or pneumonia. There is a small to moderate left pleuraleffusion. There is a small right pleural effusion. The heart appears normally sized. There is a moderate pericardialeffusion. The aorta is normal caliber. There are markedly enlargedbilateral axillary lymph nodes suggestive of malignancy. There is diffusesubcutaneous edema. There is a right-sided chest port with the distal tip in the superior venacava. There appears to be an area of clotting within the superior venacava adjacent to the chest port catheter. Clinical correlation for historyof malignancy is recommended. Abdomen/pelvis: There is motion artifact which limits detailedevaluation. The liver is enlarged with a normal contour. No definite hepatic massesare identified. There is no cholelithiasis. No biliary ductal dilatation.No definite acute pancreatic abnormalities. The spleen is enlarged thespleen is somewhat heterogeneous. The adrenal glands appear normally sized. The kidneys enhancesymmetrically. No evidence of renal mass. No hydronephrosis ornephrolithiasis. The abdominal aorta is normal caliber. There are numerous enlargedretroperitoneal lymph nodes. There are multiple enlarged mesenteric and pelvic lymph nodes. No evidenceof bowel obstruction. There appears to be mild diffuse mesenteric edema.Detailed evaluation of the bowel is limited. There are no herniated bowelloops. The urinary bladder is unremarkable. There is free pelvic fluid.There is a fat-containing left inguinal hernia. Osseous: There are multiple lytic lesions in the iliac wings bilaterally.There is a heterogeneous lytic appearance of the L4 vertebral body. Thereare other scattered areas of osteolysis throughout the thoracic spine.These findings are suggestive of osseous metastatic disease. There is apathologic inferior endplate compression fracture of L4. A superimposedinfectious process is not excluded. IMPRESSION: 1. Extensive diffuse lymphadenopathy throughout the chest, abdomen, andpelvis which is highly suggestive of malignancy/metastatic disease. 2. Hepatosplenomegaly. This can be seen with leukemia/lymphoma. 3. There are extensive reticulonodular opacities throughout the entireleft lung. This is nonspecific but can be seen withinfection/bronchopneumonia. Malignancy/metastatic disease is alsopossible. There is a more focal area of consolidation within the lowerlobe of the left lung suggestive of atelectasis or pneumonia. 4. Small to moderate left pleural effusion. Small right pleuraleffusion. 5. Moderate pericardial effusion. 6. Diffuse subcutaneous edema throughout the upper chest. 7. Mild diffuse mesenteric edema. Free pelvic fluid. 8. Multiple lytic lesions in the iliac wings bilaterally. Heterogeneouslytic appearance of the L4 vertebral body with a pathologic inferiorendplate L4 vertebral body fracture. There are other less pronouncedscattered areas of osteolysis throughout the thoracic spine. Theappearance is suggestive of diffuse osseous metastatic disease. 9. There appears to be an area of clot within the superior vena cavaadjacent to the chest port catheter. Ordered By: SHASHANK ZAVALA Interpreted By: Sheldon Laboy DO, 04/14/2022 5:24 PM Shashank Zavala MD CT Final Result * CT SOFT TISSUE NECK W CON (04/14/2022 5:23 PM CDT) Anatomical Region Laterality Modality Neck Computed Tomogra phy 04/14/2022 5:39 PM CDT Impressions 04/14/2022 5:44 PM CDT IMPRESSION: 1. There is a right-sided chest port catheter. There appears to be clot within the superior vena cava adjacent to the catheter. There is also diffuse subcutaneous edema throughout the neck and upper chest. 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 2. There is retropharyngeal edema measuring approximately 8-9 mm in maximal thickness. 3. Extensive lymphadenopathy throughout the neck bilaterally. Bilateral supraclavicular lymphadenopathy. This is highly suggestive of malignancy/metastatic disease. 4. No evidence of oropharyngeal mass or airway compromise at this time. Ordered By: SHASHANK ZAVALA Interpreted By: Sheldon Laboy DO, 04/14/2022 5:39 PM Narrative 04/14/2022 5:44 PM CDT EXAMINATION: CT SOFT TISSUE NECK W CON HISTORY: Neck pain. Swelling. Concern for infection. COMPARISON: None. TECHNIQUE: Axial CT images of the neck after the uneventful intravenous demonstration of 95 mL of Isovue-370 given through the left antecubital fossa. Sagittal and coronal reformatted image sets. A dose lowering technique was used for this procedure, which may include, but is not limited to, dose reduction technique, automated exposure control, the use of degenerative reconstruction, and ALARA/image gently techniques. FINDINGS: There is extensive lymphadenopathy throughout the neck bilaterally. There is bilateral supraclavicular lymphadenopathy. This is highly suggestive of malignancy/metastatic disease. The nasopharynx, oropharynx, hypopharynx, and larynx are negative for acute appearing abnormality. The epiglottis is normally sized. No definite masses are identified. There are tiny bilateral thyroid nodules, highly likely to be benign. The parotid and submandibular glands are unremarkable. There is a right-sided chest port catheter. There appears to be clot within the superior vena cava adjacent to the catheter. There is also diffuse subcutaneous edema throughout the neck and upper chest. 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 There is also retropharyngeal edema measuring approximately 8-9 mm in maximal thickness. No evidence of airway compromise at this time. For the partially included portions of the upper chest, please see the CT chest report. No acute appearing osseous abnormalities. ?? Procedure Note Sheldon Laboy DO - 04/14/2022 EXAMINATION: CT SOFT TISSUE NECK W CON HISTORY: Neck pain. Swelling. Concern for infection. COMPARISON: None. TECHNIQUE: Axial CT images of the neck after the uneventful intravenous demonstrationof 95 mL of Isovue-370 given through the left antecubital fossa. [place] coronal reformatted image sets. A dose lowering technique was used for this procedure, which may include,but is not limited to, dose reduction technique, automated exposurecontrol, the use of degenerative reconstruction, and ALARA/image gentlytechniques. FINDINGS: There is extensive lymphadenopathy throughout the neck bilaterally. Thereis bilateral supraclavicular lymphadenopathy. This is highly suggestive ofmalignancy/metastatic disease. The nasopharynx, oropharynx, hypopharynx, and larynx are negative foracute appearing abnormality. The epiglottis is normally sized. No definitemasses are identified. There are tiny bilateral thyroid nodules, highlylikely to be benign. The parotid and submandibular glands areunremarkable. There is a right-sided chest port catheter. There appears to be clotwithin the superior vena cava adjacent to the catheter. There is alsodiffuse subcutaneous edema throughout the neck and upper chest. Theappearance is suggestive of superior vena cava syndrome. There is alsoretropharyngeal edema measuring approximately 8-9 mm in maximal thickness.No evidence of airway compromise at this time. For the partially included portions of the upper chest, please see the CTchest report. No acute appearing osseous abnormalities. IMPRESSION: 1. There is a right-sided chest port catheter. There appears to be clotwithin the superior vena cava adjacent to the catheter. There is alsodiffuse subcutaneous edema throughout the neck and upper chest. Theappearance is concerning for superior vena cava syndrome. 2. There is retropharyngeal edema measuring approximately 8-9 mm inmaximal thickness. 3. Extensive lymphadenopathy throughout the neck bilaterally. Bilateralsupraclavicular lymphadenopathy. This is highly suggestive ofmalignancy/metastatic disease. 4. No evidence of oropharyngeal mass or airway compromise at this time. Ordered By: SHASHANK ZAVALA Interpreted By: Sheldon Laboy DO, 04/14/2022 5:39 PM Shashank Zavala MD CT Final Result * CULTURE, BACTERIA, BLOOD (04/14/2022 4:21 PM CDT) SPEC DESCRIPTION BLOOD 04/14/2022 4:12 PM CDT [facility] SPECIAL REQUESTS NO SPECIAL REQUEST 04/14/2022 4:12 PM CDT [facility] CULTURE RESULT NO GROWTH 5 DAYS 04/19/2022 12:33 PM CDT [facility] BLOOD SPECIMEN OBTAINED FOR BLOOD CULTURE / Unknown 04/14/2022 4:21 PM CDT 04/14/2022 4:25 PM CDT Shashank Zavala MD MICROBIOLOGY - GENERAL ORDERA BLES Final Result [facility] [address] [place] [id number], [place] [phone] * (ABNORMAL) HEPARIN, ANTI XA, UFH (04/14/2022 4:15 PM CDT) HEPARIN ANTI XA UFH <0.04(L) 0.30 - 0.70 IU/ML 04/14/2022 7:03 PM CDT [facility] 04/14/2022 4:15 PM CDT us Shashank Zavala MD LABORATORY Final Result Performing Organization Address City/[facility]/ZIP Co de Phone Number [facility] [address] [place] [phone], [place] [phone] * LACTIC ACID (04/14/2022 4:15 PM CDT) Pathologist [facility] LACTIC ACID VENOUS 1.1 0.4 - 2.0 MMOL/L 04/14/2022 5:03 PM CDT [facility] 04/14/2022 4:15 PM CDT us Shashank Zavala MD LABORATORY Final Result Performing Organization Address City/[facility]/ZIP Co de Phone Number [facility] [address] [place] [phone], * (ABNORMAL) CULTURE, BACTERIA, BLOOD (04/14/2022 4:15 PM CDT) SPEC DESCRIPTION BLOOD 04/14/2022 4:12 PM CDT [facility] SPECIAL REQUESTS NO SPECIAL REQUEST 04/14/2022 4:12 PM CDT [facility] GRAM STAIN RESULT GRAM POSITIVE RODS IN ANAEROBIC BOTTLE 04/18/2022 5:47 PM CDT [facility] GRAM STAIN RESULT CALLED TO DR HOPSON 04.18.22 AT 1745, READ BACK AND VERIFIED 04/18/2022 5:47 PM CDT [facility] CULTURE RESULT IN ANAEROBIC BLOOD CULTURE DIPHTHEROIDS (AA) 04/20/2022 11:22 AM CDT [facility] BLOOD SPECIMEN OBTAINED FOR BLOOD CULTURE / Unknown 04/14/2022 4:15 PM CDT 04/14/2022 4:25 PM CDT Shashank Zavala MD MICROBIOLOGY - GENERAL ORDERA BLES Final Result [facility] [address] [place] [address], [place] [phone] [id number] [facility] [address] [place] [address], * (ABNORMAL) COMPREHENSIVE METABOLIC PANEL (04/14/2022 4:15 PM CDT) SODIUM S/P/B 134(L) 136 - 145 MMOL/L 04/14/2022 4:57 PM CDT [facility] POTASSIUM S/P/B 3.6 3.5 - 5.1 MMOL/L 04/14/2022 4:57 PM CDT [facility] CHLORIDE S/P/B 95(L) 98 - 107 MMOL/L 04/14/2022 4:57 PM CDT [facility] CO2 33.2(H) 21.0 - 32.0 MMOL/L 04/14/2022 4:57 PM CDT [facility] GLUCOSE 104(H) 70 - 99 MG/DL 04/14/2022 4:57 PM CDT [facility] Comment: FASTING GLUCOSE 100 TO 125 MG/DL IS CONSISTENT WITH IMPAIRED FASTING GLUCOSE. FASTING GLUCOSE >125 MG/DL IS CONSISTENT WITH DIABETES. RANDOM GLUCOSE >200 MG/DL WITH HYPERGLYCEMIC SYMPTOMS IS CONSISTENT WITH DIABETES. PER ADA GUIDELINES BUN 8 6 - 24 MG/DL 04/14/2022 4:57 PM CDT [facility] CREATININE S/P/B 1.03 0.70 - 1.30 MG/DL 04/14/2022 4:57 PM CDT [facility] CALCIUM S/P/B 8.9 8.4 - 10.5 MG/DL 04/14/2022 4:57 PM T [facility] BILIRUBIN TOTAL S/P/B 0.6 0.2 - 1.0 MG/DL 04/14/2022 4:57 PM [facility] Comment: THIS ASSAY IS NOT RECOMMENDED FOR PATIENTS UNDERGOING TREATMENT WITH ELTROMBOPAG DUE TO THE POTENTIAL FOR FALSELY ELEVATED RESULTS. ALKALINE PHOSPHATASE S/P/B 192(H) 45 - 115 U/L 04/14/2022 4:57 PM T [facility] AST 20 15 - 37 U/L 04/14/2022 4:57 PM [facility] ALT 7(L) 16 - 63 U/L 04/14/2022 4:57 PM T [facility] TOTAL PROTEIN S/P/B 7.0 6.4 - 8.2 G/DL 04/14/2022 4:57 PM T [facility] ALBUMIN S/P/B 1.6(L) 3.4 - 5.0 G/DL 04/14/2022 4:57 PM T [facility] ANION GAP 5.8 5.0 - 15.0 MMOL/L 04/14/2022 4:57 PM T [facility] OSMOLALITY (CALC) 277 MOSM/KG 022 4:57 PM [facility] Comment:REFERENCE RANGE NOT ESTABLISHED GFR ESTIMATE >90 >89 ML/MIN/1. 73 M2 04/14/2022 4:57 PM [facility] GFR NOTES GFR REFERENCE S: 04/14/2022 4:57 PM [facility] Comment: THE ESTIMATED GFR IS CALCULATED [...] ml/min/1.73 m2 G5,KIDNEY FAILURE: <15 ml/min/1.73 m2 04/14/2022 4:15 PM CDT us Shashank Zavala MD LABORATORY Final Result Performing Organization Address City/[facility]/ZIP Co de Phone Number [facility] [address] [place] [phone], * PARTIAL THROMBOPLASTIN TIME,PTT (04/14/2022 4:15 PM CDT) PTT 34.5 25.1 - 36.5 SEC 04/14/2022 4:45 PM CDT [facility] Comment:THERAPEUTIC RANGE: 4 6.2-77.0 SEC 04/14/2022 4:15 PM CDT us Shashank Zavala MD LABORATORY Final Result Performing Organization Address [facility] Co de Phone Number [facility] [address] [place] [id number], [place] [phone] * (ABNORMAL) PROTIME/INR, VENOUS (04/14/2022 4:15 PM CDT) PROTIME 21.7(H) 9.4 - 12.5 SEC 04/14/2022 4:45 PM CDT [facility] INR 1.8(H) 0.8 - 1.0 04/14/2022 4:45 PM CDT [facility] 04/14/2022 4:15 PM CDT us Shashank Zavala MD LABORATORY Final Result Performing Organization Address City/[facility]/ZIP Co de Phone Number [facility] [address] [place] [address], [place] [phone] * (ABNORMAL) CBC W/DIFF AUTOMATED (04/14/2022 4:15 PM CDT) WBC 11.8(H) 4.0 - 10.8 x10'3/uL 04/14/2022 4:28 PM CDT [facility] RBC 3.60(L) 4.50 - 6.10 x10'6/uL 04/14/2022 4:28 PM CDT [facility] HGB 7.6(L) 13.0 - 18.0 G/DL 04/14/2022 4:28 PM CDT [facility] HCT 26.1(L) 37.0 - 52.0 % 04/14/2022 4:28 PM CDT [facility] MCV 72.5(L) 78.0 - 100.0 FL 04/14/2022 4:28 PM CDT [facility] MCH 21.1(L) 27.0 - 31.0 PG 04/14/2022 4:28 PM CDT [facility] MCHC 29.1(L) 33.0 - 36.0 G/DL 04/14/2022 4:28 PM CDT [facility] RDW 19.5(H) 11.5 - 14.5 % 04/14/2022 4:28 PM CDT [facility] PLT 536(H) 150 - 350 x10'3/uL 04/14/2022 4:28 PM CDT [facility] MPV 8.6 7.4 - 10.4 FL 04/14/2022 4:28 PM CDT [facility] DIFFERENTIAL COMMENT NORMAL REFERENCE RANGE NOT ESTABLISHED FOR THE PROPORTIONAL LEUKOCYTE DIFFERENTIAL. 04/14/2022 4:28 PM CDT [facility] SEG NEUTROPHILS 82.3 % 4:28 PM CDT [facility] LYMPHOCYTES 3.6 % 04/14/2022 4:28 PM CDT [facility] MONOCYTES 12.3 % 04/14/2022 4:28 PM CDT [facility] EOSINOPHILS 0.6 % 04/14/2022 4:28 PM CDT [facility] BASOPHILS 0.3 % 04/14/2022 4:28 PM CDT [facility] IMMATURE GRANS % 0.9 % 04/14/20 4:28 PM CDT [facility] NRBC 0.0 % 04/14/2022 4:28 PM CDT [facility] ABS. NEUTROPHILS 9.73(H) 1.60 - 8.30 x10'3/uL 04/14/2022 4:28 PM CDT [facility] ABS. LYMPHOCYTES 0.42(L) 0.80 - 4.70 x10'3/uL 04/14/2022 4:28 PM CDT [facility] ABS. MONOCYTES 1.45 0.00 - 1.50 x10'3/uL 04/14/2022 4:28 PM CDT [facility] ABS. EOSINOPHILS 0.07 0.00 - 0.40 x10'3/uL 04/14/2022 4:28 PM CDT [facility] ABS. BASOPHILS 0.03 0.00 - 0.20 x10'3/uL 04/14/2022 4:28 PM CDT [facility] ABS. IMMATURE GRANULOCYTES 0.11(H) 0.00 - 0.03 x10'3/uL 04/14/2022 4:28 PM CDT [facility] ABS. 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 Given 04/14/2022 4:23 PM CDT 1,000 mg acetaminophen (TYLENOL) tablet 1,000 mg 1,000 mg, Oral, Every 6 hours PRN, Mild pain (Scale 1 - 3), Fever, Starting on Wed04/14/22 at 2025, Until Wed04/16/22 at 1609, Maximum dose of acetaminophen is 4000 mg from all sources in 24 hours. Given 04/15/2022 5:12 AM CDT 1,000 mg apixaban (ELIQUIS) tablet 5 mg 5 mg, Oral, 2 times daily, First dose on Wed04/16/22 at 1345, Until Discontinued Given 04/16/2022 1:41 PM CDT 5 mg ceFEPIme (MAXIPIME) 2 g in sodium chloride 0.9 % 50 mL IVPB 2 g, Intravenous, Administer over 30 Minutes, Once, 1 dose, On Wed04/14/22 at 1800 04/14/2022 6:24 PM CDT 2 g 100 mL/hr ceFEPIme (MAXIPIME) 2 g in sodium chloride 0.9 % 50 mL IVPB 2 g, Intravenous, Administer over 30 Minutes, Every 8 hours, First dose on Wed04/15/22 at 0230, Until Discontinued [facility] 04/16/2022 9:55 AM CDT 2 g 100 mL/hr New Bag 04/16/2022 2:54 AM CDT 2 g 100 mL/hr New Bag 04/15/2022 5:53 PM CDT 2 g 100 mL/hr diazePAM (VALIUM) injection 10-15 mg 10-15 mg, Intravenous, Every 1 hour PRN, Other, per CIWA algorithm, Starting on Wed04/15/22 at 1038, Until Wed04/16/22 at 1609, - (For CIWA score 12-15 Diazepam 10 [...] per CIWA algorithm, 3 doses, Starting on Wed04/15/22 at 1039, Until Wed04/16/22 at 1609, ONLY to be given in ICU setting [...] 1 mg, Intravenous, Daily, First dose on Wed04/15/22 at 1100, Until Discontinued, Give if unable to take orally. Discontinue when CIWA complete. folic acid (FOLVITE) tablet 1 mg 1 mg, Oral, Daily, First dose on Wed04/15/22 at 1100, Until Discontinued, Give with meal. May give IV if unable to take orally. Discontinue when CIWA complete. Given 04/16/2022 8:40 AM CDT 1 mg Given 04/15/2022 11:20 AM CDT 1 mg heparin (porcine) injection 1,450 Units 1,450 Units (rounded from 1,434 Units = 20 Units/kg ? 71.7 kg), Intravenous, As needed, for Anti-Xa activity 0.1-0.19 units, Starting on Wed04/14/22 at 1756, Until Wed04/15/22 at 2327, SUBSEQUENT BOLUS doses for Anti-Xa activity 0.1-0.19 units. Maximum 10,000 units. Given 04/15/2022 9:54 PM CDT 1,450 Units Given 04/15/2022 8:18 AM CDT 1,450 Units heparin (porcine) injection 2,850 Units 2,850 Units (rounded from 2,868 Units = 40 Units/kg ? 71.7 kg), Intravenous, As needed, Other, for Anti-Xa LESS than 0.1 units, Starting on Wed04/14/22 at 1756, Until Wed04/15/22 at 2327, SUBSEQUENT BOLUS doses for Anti-Xa activity LESS than 0.1 units. Maximum 10,000 units Given 04/15/2022 3:19 PM CDT 2,850 Units Given 04/15/2022 1:42 AM CDT 2,850 Units heparin (porcine) injection 2,850 Units 2,850 Units (rounded from 2,840 Units = 40 Units/kg ? 71 kg), Intravenous, As needed, Other, for Anti-Xa LESS than 0.1 units, Starting on Wed04/15/22 at 2326, Until Wed04/16/22 at 1609, SUBSEQUENT BOLUS doses for Anti-Xa activity LESS than 0.1 units. Maximum 10,000 units heparin (porcine) injection 5,750 Units 5,750 Units (rounded from 5,736 Units = 80 Units/kg ? 71.7 kg), Intravenous, Once, 1 dose, On Wed04/14/22 at 1800, INITIAL BOLUS dose. Pharmacist to round to nearest 100 units. Maximum 10,000 units. Given 04/14/2022 6:28 PM CDT 5,750 Units heparin 25,000 units in 250 mL 0.45% NaCl (100 units/mL) infusion 0-28 Units/kg/hr ? 71.7 kg (0-20.076 mL/hr, rounded to 0-20.1 mL/hr), Intravenous, Continuous, Starting on Wed04/14/22 at 1800, Until Wed04/15/22 at 2249, Medical Heparin Management for Anti-Xa Nomogram (Calculator). Use the Protocol button Yes to calculate initial infusion rate of 18 units/kg/hr, up to a MAX Initial rate of 2,000 units/hr (20 mL/hr) Lab instructions: - Stat CBC, PT, Anti-Xa prior to initiation of infusion. - Anti-Xa to be scheduled 6 hours after any of the following: start of infusion, bolus of heparin, rate change, holding of heparin drip, or from result time of first Anti-Xa within therapeutic range. - After 2 consecutive Anti-Xa's in therapeutic range change Anti-Xa to every AM. - Discontinue Anti-Xa's and CBCs when heparin infusion is stopped. *High Alert* New Bag 04/15/2022 9:55 PM CDT 27.894 Units/kg/hr 20 mL/hr New Bag 04/15/2022 3:20 PM CDT 26 Units/kg/hr 18.6 mL/h r New Bag 04/15/2022 11:24 AM CDT 23 Units/kg/hr 16.5 mL/ hr heparin 25,000 units in 250 mL 0.45% NaCl (100 units/mL) infusion 0-29 Units/kg/hr ? 71 kg (0-20.59 mL/hr, rounded to 0-20.6 mL/hr), Intravenous, Continuous, Starting on Wed04/15/22 at 2315, Until Ana 04/16/22 at 1143, Medical Heparin Management for Anti-Xa Nomogram (Calculator). Use the Protocol button Yes to calculate initial infusion rate of 18 units/kg/hr, up to a MAX Initial rate of 2,000 units/hr (20 mL/hr) Lab instructions: - Stat CBC, PT, Anti-Xa prior to initiation of infusion. - Anti-Xa to be scheduled 6 hours after any of the following: start of infusion, bolus of heparin, rate change, holding of heparin drip, or from result time of first Anti-Xa within therapeutic range. - After 2 consecutive Anti-Xa's in therapeutic range change Anti-Xa to every AM. - Discontinue Anti-Xa's and CBCs when heparin infusion is stopped. *High Alert* Rate/Dose Change 04/16/2022 4:08 AM CDT 29 Units/kg/hr 20.6 mL/hr New Bag 04/16/2022 12:04 AM CDT 28 Units/kg/hr 19.9 mL/ hr New Bag 04/15/2022 10:56 PM CDT 28 Units/kg/hr 19.9 mL/ hr iopamidol (ISOVUE-370) 76 % injection 95 mL 95 mL, Intravenous, IMG once as needed, Contrast, 1 dose, Starting on Wed04/14/22 at 1715, Until Wed04/14/22 at 1712 Given 04/14/2022 5:12 PM CDT 95 mLs L eft Arm LORazepam (ATIVAN) tablet 1-3 mg 1-3 mg, Oral, Every 1 hour PRN, Other, per CIWA algorithm, Starting on Wed04/15/22 at 1038, Until Wed04/16/22 at 1609, - (For CIWA score 8-11 --- Lorazepam 1 mg PO) - (For CIWA score 12-15 Lorazepam 2 mg PO) - (For CIWA score 16-20 Lorazepam 3 mg PO) Use oral lorazepam as first choice. Adjust dose following CIWA assessment algorithms. Hold lorazepam for excessive sedation (RR less than 8 or RASS -3 to -5). methylPREDNISolone sodium succinate (SOLU-Medrol) injection 80 mg 80 mg, Intravenous, 2 times daily, First dose on Wed04/15/22 at 1315, Until Discontinued, If ordered IV, administer into a vein over 3-15 minutes. Doses >= 2 mg/kg or 250mg should be given by infusion, unless the benefits of IV injection outweigh the risks (life-threatening shock) Given 04/16/2022 8:39 AM CDT 80 mg Given 04/15/2022 8:29 PM CDT 80 mg Given 04/15/2022 1:18 PM CDT 80 mg multivitamin (THERA) tablet 1 tablet 1 tablet, Oral, Daily, First dose on Wed04/15/22 at 1115, Until Discontinued Given 04/16/2022 8:40 AM CDT 1 table t Given 04/15/2022 11:20 AM CDT 1 tablet potassium chloride CR (KLOR-CON M) tablet 10 mEq 10 mEq, Oral, Daily, First dose on Wed04/14/22 at 2045, Until Discontinued, Do not chew, crush, or suck on tablet. May break in half. May dissolve whole tablet in 120 mL of water and drink immediately. Given 04/16/2022 8:40 AM CDT 10 mEq Given 04/15/2022 8:17 AM CDT 10 mEq Given 04/14/2022 9:38 PM CDT 10 mEq sodium chloride 0.9% bolus infusion 1,000 mL 1,000 mL, Intravenous, Administer over 15 Minutes, Once, 1 dose, On Wed04/14/22 at 1615 New Bag 04/14/2022 4:25 PM CDT 1,000 mLs thiamine (B-1) injection 100 mg 100 mg, Intravenous, Daily, First dose on Wed04/15/22 at 1100, Until Discontinued, Give if unable to take oral meds. Give with meals. IF diluting medication dilute with normal saline to volume of 10 mL thiamine tablet 100 mg 100 mg, Oral, Daily, First dose on Wed04/15/22 at 1100, Until Discontinued, Give with meal. Given 04/16/2022 8:39 AM CDT 100 mg Given 04/15/2022 11:20 AM CDT 100 mg vancomycin (VANCOCIN) 1,500 mg in sodium chloride 0.9 % 500 mL IVPB 1,500 mg, Intravenous, at 257.5 mL/hr, Every 12 hours, First dose on Wed04/16/22 at 2200, Until Discontinued vancomycin 1000 mg in NS 250 mL IVPB 1,000 mg, Intravenous, Administer over 60 Minutes, Once, 1 dose, On Wed04/14/22 at 1800 04/14/2022 7:03 PM CDT 1,000 mg 250 mL/hr vancomycin 1000 mg in NS 250 mL IVPB 1,000 mg, Intravenous, Administer over 60 Minutes, Every 12 hours, First dose on Wed04/15/22 at 0800, Until Discontinued 04/16/2022 8:53 AM CDT 1,000 mg 250 mL /hr 04/15/2022 8:29 PM CDT 1,000 mg 250 mL/hr New 04/15/2022 8:25 AM CDT 1,000 mg 250 mL/hr vancomycin 1000 mg in NS 250 mL IVPB 1,000 mg, Intravenous, at 250 mL/hr, Once, 1 dose, On Wed04/16/22 at 1230 04/16/2022 12:33 PM CDT 1,000 mg 250 mL/hr vancomycin pharmacy to dose placeholder Intravenous, See admin instructions, Starting on Wed04/14/22 at 2027, Until Wed04/16/22 at 1609, Vancomycin Placeholder Only: Do NOT document administrations on this placeholder.(Use medication on SEP to document administrations or contact pharmacy if medication order not entered.) documented in this encounter Active and Recently Administered Medications Times are shown in CDT. Scheduled Medication Order 04/14/2022 04/15/2022 04/16/2022 acetaminophen (TYLENOL) tablet 1,000 mg (COMPLETED) 1,000 mg, Oral, Once, 1 dose, On Wed04/14/22 at 1615, Maximum dose of acetaminophen is 4000 mg from all sources in 24 hours. 1623 (Given - Provider: Deborah Gage RN) apixaban (ELIQUIS) tablet 5 mg 5 mg, Oral, 2 times daily, First dose on Wed04/16/22 at 1345, Until Discontinued 1341 (Given - Provider: Aileen Coronel, DELMA) ceFEPIme (MAXIPIME) 2 g in sodium chloride 0.9 % 50 mL IVPB (COMPLETED) 2 g, Intravenous, Administer over 30 Minutes, Once, 1 dose, On Wed04/14/22 at 1800 1824 (New Bag - Provider: Deborah Gage RN)1854 (Infusion Stop Time - Provider: Deborah Gage RN) ceFEPIme (MAXIPIME) 2 g in sodium chloride 0.9 % 50 mL IVPB 2 g, Intravenous, Administer over 30 Minutes, Every 8 hours, First dose on Wed04/15/22 at 0230, Until Discontinued 0142 (New Bag - Provider: Melvi Jimenez RN)0223 (Infusion Stop Time - Provider: Melvi Jimenez RN)1120 (New Bag - Provider: Aileen Coronel RN)1150 (Infusion Stop Time - Provider: Raeann Alcantara RN)1753 (New Bag - Provider: Aileen Coronel RN)1829 (Infusion Stop Time - Provider: Aileen Coronel, DELMA) 0254 (New Bag - Provider: Marcy Blake, DELMA)0330 (Infusion Stop Time - Provider: Marcy Blake, DELMA)0955 (New Bag - Provider: Aileen Coronel, DELMA)1040 (Infusion Stop Time - Provider: Aileen Coronel RN) folic acid (FOLVITE) injection 1 mg(Linked Group 1) 1 mg, Intravenous, Daily, First dose on Wed04/15/22 at 1100, Until Discontinued, Give if unable to take orally. Discontinue when CIWA complete. 1120 (See Alternative - Provider: Aileen Coronel RN) 0840 (See Alternative - Provider: Aileen Coronel RN) folic acid (FOLVITE) tablet 1 mg(Linked Group 1) 1 mg, Oral, Daily, First dose on Wed04/15/22 at 1100, Until Discontinued, Give with meal. May give IV if unable to take orally. Discontinue when CIWA complete. 1120 (Given - Provider: Aileen Coronel RN) 0840 (Given - Provider: Aileen Coronel RN) heparin (porcine) injection 5,750 Units (COMPLETED) 5,750 Units (rounded from 5,736 Units = 80 Units/kg ? 71.7 kg), Intravenous, Once, 1 dose, On Wed04/14/22 at 1800, INITIAL BOLUS dose. Pharmacist to round to nearest 100 units. Maximum 10,000 units. 1827 (Given - Provider: Deborah Gage RN) methylPREDNISolone sodium succinate (SOLU-Medrol) injection 80 mg 80 mg, Intravenous, 2 times daily, First dose on Wed04/15/22 at 1315, Until Discontinued, If ordered IV, administer into a vein over 3-15 minutes. Doses >= 2 mg/kg or 250mg should be given by infusion, unless the benefits of IV injection outweigh the risks (life-threatening shock) 1318 (Given - Provider: Aileen Coronel RN)2028 (Given - Provider: Marcy Blake RN) 0839 (Given - Provider: Aileen Coronel, DELMA) multivitamin (THERA) tablet 1 tablet 1 tablet, Oral, Daily, First dose on Wed04/15/22 at 1115, Until Discontinued 112 (Given - Provider: Aileen Coronel RN) 0840 (Given - Provider: Aileen Coronel, DELMA) potassium chloride CR (KLOR-CON M) tablet 10 mEq 10 mEq, Oral, Daily, First dose on Wed04/14/22 at 2045, Until Discontinued, Do not chew, crush, or suck on tablet. May break in half. May dissolve whole tablet in 120 mL of water and drink immediately. 2137 (Given - Provider: Melvi Jimenez RN) 0817 (Given - Provider: Aileen Coronel RN) 0840 (Given - Provider: Aileen Coronel, DELMA) sodium chloride 0.9% bolus infusion 1,000 mL (COMPLETED) 1,000 mL, Intravenous, Administer over 15 Minutes, Once, 1 dose, On Wed04/14/22 at 1615 1625 (New Bag - Provider: Deborah Gage RN)1700 (Infusion Stop Time - Provider: Deborah Gage, DELMA) thiamine (B-1) injection 100 mg(Linked Group 2) 100 mg, Intravenous, Daily, First dose on Wed04/15/22 at 1100, Until Discontinued, Give if unable to take oral meds. Give with meals. IF diluting medication dilute with normal saline to volume of 10 mL 1120 (See Alternative - Provider: Aileen Coronel RN) 0839 (See Alternative - Provider: Aileen Coronel RN) thiamine tablet 100 mg(Linked Group 2) 100 mg, Oral, Daily, First dose on Wed04/15/22 at 1100, Until Discontinued, Give with meal. 1120 (Given - Provider: Aileen Coronel RN) 0839 (Given - Provider: Aileen Coronel RN) vancomycin (VANCOCIN) 1,500 mg in sodium chloride 0.9 % 500 mL IVPB 1,500 mg, Intravenous, at 257.5 mL/hr, Every 12 hours, First dose on Wed04/16/22 at 2200, Until Discontinued vancomycin 1000 mg in NS 250 mL IVPB (COMPLETED) 1,000 mg, Intravenous, Administer over 60 Minutes, Once, 1 dose, On Wed04/14/22 at 1800 1903 (New Bag - Provider: Deborah Gage RN)2002 (Infusion Stop Time - Provider: Deborah Gage, DELMA) vancomycin 1000 mg in NS 250 mL IVPB (CANCELED) 1,000 mg, Intravenous, Administer over 60 Minutes, Every 12 hours, First dose on Wed04/15/22 at 0800, Until Discontinued 08 (New Bag - Provider: Aileen Coronel RN)09 (Infusion Stop Time - Provider: Raeann Alcantara RN)2028 (New Bag - Provider: Marcy Blake RN)214 (Infusion Stop Time - Provider: Marcy Blake, DELMA) 0853 (New Bag - Provider: Aileen Coronel RN)0955 (Infusion Stop Time - Provider: Aileen Coronel RN) vancomycin 1000 mg in NS 250 mL IVPB (COMPLETED) 1,000 mg, Intravenous, at 250 mL/hr, Once, 1 dose, On Ana 04/16/22 at 1230 1233 (New Bag - Provider: Aileen Coronel, RN)1337 (Infusion Stop Time - Provider: Aileen Coronel RN) vancomycin pharmacy to dose placeholder(Linked Group 3) Intravenous, See admin instructions, Starting on Wed04/14/22 at 2028, Until Ana 04/16/22 at 1609, Vancomycin Placeholder Only: Do NOT document administrations on this placeholder.(Use medication on SEP to document administrations or contact pharmacy if medication order not entered.) Continuous Medication Order 04/14/2022 04/15/2022 04/16/2022 heparin 25,000 units in 250 mL 0.45% NaCl (100 units/mL) infusion (CANCELED) 0-28 Units/kg/hr ? 71.7 kg (0-20.076 mL/hr, rounded to 0-20.1 mL/hr), Intravenous, Continuous, Starting on Wed04/14/22 at 1800, Until Wed04/15/22 at 2249, Medical Heparin Management for Anti-Xa Nomogram (Calculator). Use the Protocol button Yes to calculate initial infusion rate of 18 units/kg/hr, up to a MAX Initial rate of 2,000 units/hr (20 mL/hr) Lab instructions: - Stat CBC, PT, Anti-Xa prior to initiation of infusion. - Anti-Xa to be scheduled 6 hours after any of the following: start of infusion, bolus of heparin, rate change, holding of heparin drip, or from result time of first Anti-Xa within therapeutic range. - After 2 consecutive Anti-Xa's in therapeutic range change Anti-Xa to every AM. - Discontinue Anti-Xa's and CBCs when heparin infusion is stopped. *High Alert* 1835 (New Bag - Provider: Deborah Gage RN) 0144 (Rate/Dose Change - Provider: Melvi Jimenez RN)0822 (Rate/Dose Change - Provider: Aileen Coronel, DLEMA)1124 (New Bag - Provider: Aileen Coronel, RN)1520 (New Bag - Provider: Aileen Coronel, RN)2155 (New Bag - Provider: Marcy Blake RN)2244 (Due: Rate/Dose Change) heparin 25,000 units in 250 mL 0.45% NaCl (100 units/mL) infusion (CANCELED) 0-29 Units/kg/hr ? 71 kg (0-20.59 mL/hr, rounded to 0-20.6 mL/hr), Intravenous, Continuous, Starting on Wed04/15/22 at 2315, Until Ana 04/16/22 at 1143, Medical Heparin Management for Anti-Xa Nomogram (Calculator). Use the Protocol button Yes to calculate initial infusion rate of 18 units/kg/hr, up to a MAX Initial rate of 2,000 units/hr (20 mL/hr) Lab instructions: - Stat CBC, PT, Anti-Xa prior to initiation of infusion. - Anti-Xa to be scheduled 6 hours after any of the following: start of infusion, bolus of heparin, rate change, holding of heparin drip, or from result time of first Anti-Xa within therapeutic range. - After 2 consecutive Anti-Xa's in therapeutic range change Anti-Xa to every AM. - Discontinue Anti-Xa's and CBCs when heparin infusion is stopped. *High Alert* 2256 (New Bag - Provider: Marcy Blake RN) 0003 (Infusion Stop Time - Provider: Marcy Blake RN)0004 (New Bag - Provider: Marcy Blake RN)0408 (Rate/Dose Change - Provider: Marcy Blake RN)1145 (Infusion Stop Time - Provider: Aileen Coronel, DELMA) PRN Medication Order 04/14/2022 04/15/2022 04/16/2022 acetaminophen (TYLENOL) tablet 1,000 mg 1,000 mg, Oral, Every 6 hours PRN, Mild pain (Scale 1 - 3), Fever, Starting on Wed04/14/22 at 2025, Until Ana 04/16/22 at 1609, Maximum dose of acetaminophen is 4000 mg from all sources in 24 hours. 0512 (Given - Provider: Melvi Jimenez RN) albuterol sulfate HFA 108 (90 Base) MCG/ACT inhaler 2 puff 2 puff, Inhalation, Every 6 hours PRN, Wheezing, Starting on Wed04/14/22 at 2025, Until Wed04/16/22 at 1609 diazePAM (VALIUM) injection 10-15 mg(Linked Group 4) 10-15 mg, Intravenous, Every 1 hour PRN, Other, per CIWA algorithm, Starting on Wed04/15/22 at 1038, Until Wed04/16/22 at 1609, - (For CIWA score 12-15 Diazepam 10 [...] per CIWA algorithm, 3 doses, Starting on Wed04/15/22 at 1039, Until Wed04/16/22 at 1609, ONLY to be given in ICU setting - (For CIWA score greater than 20 --- diazepam 20 mg IV every 1 hour); contact provider to consider alternative scheduled therapy or front-loading after 2 doses. Adjust dose following CIWA assessment algorithms. HOLD diazepam for excessive sedation (RR less than 8 or RASS -3 to -5). heparin (porcine) injection 1,450 Units (CANCELED) 1,450 Units (rounded from 1,434 Units = 20 Units/kg ? 71.7 kg), Intravenous, As needed, for Anti-Xa activity 0.1-0.19 units, Starting on Wed04/14/22 at 1756, Until Wed04/15/22 at 2327, SUBSEQUENT BOLUS doses for Anti-Xa activity 0.1-0.19 units. Maximum 10,000 units. 817 (Given - Provider: Aileen Coronel RN)2153 (Given - Provider: Marcy Blake RN) heparin (porcine) injection 2,850 Units (CANCELED) 2,850 Units (rounded from 2,868 Units = 40 Units/kg ? 71.7 kg), Intravenous, As needed, Other, for Anti-Xa LESS than 0.1 units, Starting on Wed04/14/22 at 1756, Until Wed04/15/22 at 2327, SUBSEQUENT BOLUS doses for Anti-Xa activity LESS than 0.1 units. Maximum 10,000 units 0142 (Given - Provider: Melvi Jimenez RN - Comment: Verified by Denise NGUYỄN.)1519 (Given - Provider: Aileen Coronel RN) heparin (porcine) injection 2,850 Units 2,850 Units (rounded from 2,840 Units = 40 Units/kg ? 71 kg), Intravenous, As needed, Other, for Anti-Xa LESS than 0.1 units, Starting on Wed04/15/22 at 2326, Until Wed04/16/22 at 1609, SUBSEQUENT BOLUS doses for Anti-Xa activity LESS than 0.1 units. Maximum 10,000 units HYDROcodone-acetaminophen (NORCO) 5-325 MG tablet 1 tablet 1 tablet, Oral, Every 6 hours PRN, Moderate pain (Scale 4 - 7), Starting on Wed04/14/22 at 2025, Until Wed04/16/22 at 1609, Maximum dose of acetaminophen is 4000 mg from all sources in 24 hours. iopamidol (ISOVUE-370) 76 % injection 95 mL (COMPLETED) 95 mL, Intravenous, IMG once as needed, Contrast, 1 dose, Starting on Wed04/14/22 at 1715, Until Wed04/14/22 at 1712 1712 (Given - Provider: Jordon Mendenhall RTR) LORazepam (ATIVAN) tablet 1-3 mg(Linked Group 4) 1-3 mg, Oral, Every 1 hour PRN, Other, per CIWA algorithm, Starting on Wed04/15/22 at 1038, Until Wed04/16/22 at 1609, - (For CIWA score 8-11 --- Lorazepam 1 mg PO) - (For CIWA score 12-15 Lorazepam 2 mg PO) - (For CIWA score 16-20 Lorazepam 3 mg PO) Use oral lorazepam as first choice. Adjust dose following CIWA assessment algorithms. Hold lorazepam for excessive sedation (RR less than 8 or RASS -3 to -5). Linked Groups Order Group 1: folic acid (FOLVITE) tablet 1 mgJump to med 1 mg, Oral, Daily, First dose on Wed04/15/22 at 1100, Until Discontinued, Give with meal. May give IV if unable to take orally. Discontinue when CIWA complete. Or folic acid (FOLVITE) injection 1 mgJump to med 1 mg, Intravenous, Daily, First dose on Wed04/15/22 at 1100, Until Discontinued, Give if unable to take orally. Discontinue when CIWA complete. Group 2: thiamine tablet 100 mgJump to med 100 mg, Oral, Daily, First dose on Wed04/15/22 at 1100, Until Discontinued, Give with meal. Or thiamine (B-1) injection 100 mgJump to med 100 mg, Intravenous, Daily, First dose on Wed04/15/22 at 1100, Until Discontinued, Give if unable to take oral meds. Give with meals. IF diluting medication dilute with normal saline to volume of 10 mL Group 3: Pharmacy to dose vancomycin (CANCELED) Routine, Once, On Wed04/14/22 at 202, For 1 occurrence, Indications: Pneumonia, HAP/VAP And vancomycin pharmacy to dose placeholderJump to med Intravenous, See admin instructions, Starting on Wed04/14/22 at 2028, Until Wed04/16/22 at 1609, Vancomycin Placeholder Only: Do NOT document administrations on this placeholder.(Use medication on SEP to document administrations or contact pharmacy if medication order not entered.) Group 4: LORazepam (ATIVAN) tablet 1-3 mgJump to med 1-3 mg, Oral, Every 1 hour PRN, Other, per CIWA algorithm, Starting on Wed04/15/22 at 1038, Until Wed04/16/22 at 1609, - (For CIWA score 8-11 --- Lorazepam [...] PRN, Other, per CIWA algorithm, Starting on Wed04/15/22 at 1038, Until Ana 04/16/22 at 1609, - (For CIWA score 12-15 Diazepam 10 [...] documented as of this encounter Care Teams Supervisor Cigar Making Hand Relationship Specialty Start Date End Date Jay Narayanan DO [address] [place] [address] PCP - General FAMILY PRACTICE 04/14/22 documented as of this encounter
--- OUTSIDE RECORDS SUMMARY | 2024-06-25 06:53 | XMS_ITS | Encounter Summary ---
Author Organization [facility] Address [address] [place] [address] Phone Care Team Providers Care Clay Processing Factory Worker Name Role Phone Shasta Sena MD Unavailable [phone] No, Physician Primary Care Provider [phone] Reason for Visit * Reason Comments OP Infusion * Episode Based Medications (Routine) - Closed Specialty Diagnoses / Procedures Referred By Contmurray t Referred To Contact Oncology Diagnoses Hodgkin lymphoma, unspecified Hodgkin lymphoma type, unspecified body region (HCC) Prevention of chemotherapy-induced neutropenia [address] [address] Phone: tel: fax: [facility] [address] [place] [address] [place] [address] Phone: tel: Referral ID Status Reason Start Date Expiration Date Visits Re quested Visits Authorized [id number] Closed 05/04/2023 07/21/2023 1 8 Encounter Details Date Type Department Care Team (Late st Contact Info) Description 05/26/2023 12:30 PM DECKHAND SPONGE BOAT Infusion [facility] [address] [place] [address] [place] [address] Prevention of chemotherapy-induced neutropenia (Primary Dx); Hodgkin lymphoma, unspecified Hodgkin lymphoma type, unspecified body region (HCC) Social History Tobacco Use Types Packs/Day Years Used Date Smoking Tobacco: Some Days Cigarettes Smokeless Tobacco: Never Comments:Unwilling to discus s Personal Safety Answer Date Recorded Have you ever been in or are you currently in a harmful physical or emotional relationship or is someone making you feel afraid or unsafe? Yes 04/28/2023 Sex and Gender Information Value Date Recorded Sex Assigned at Not on file Legal Sex Male 10:05 AM DECKHAND SPONGE BOAT Gender Identity Male 05/30/2023 9:41 PM DECKHAND SPONGE BOAT Sexual Orientation Straight 05/30/2023 9: 41 PM DECKHAND SPONGE BOAT documented as of this encounter Ordered Prescriptions Prescription Sig Dispense Quantity Refills Last Filled Start Date End Date acyclovir (ZOVIRAX) 400 mg tabletIndications :Hodgkin lymphoma, unspecified Hodgkin lymphoma type, unspecified body region (HCC),Prevention of chemotherapy-vinicius aidan neutropenia Take 1 tablet (400 mg total) by mouth 2 (two) times a day For shingles prevention. 60 tablet 3 3 ondansetron (ZOFRAN) 8 mg tabletIndications :Hodgkin lymphoma, unspecified Hodgkin lymphoma type, unspecified body region (HCC),Prevention of chemotherapy-vinicius aidan neutropenia Take 1 tablet (8 mg total) by mouth every 8 (eight) hours as needed for nausea or vomiting Use if prochlorperazine does not stop nausea 24 tablet 3 3 prochlorperazine (Compazine) 10 mg tabletIndications :Hodgkin lymphoma, unspecified Hodgkin lymphoma type, unspecified body region (HCC),Prevention of chemotherapy-vinicius aidan neutropenia Take 1 tablet (10 mg total) by mouth every 6 (six) hours as needed for nausea or vomiting Use first for nausea 60 tablet 3 3 documented in this encounter Nursing Notes * Vera Mata RN - 05/26/2023 12:30 PM CST Oncology Nursing Note [facility] Kedar Capone is a 33 y.o. male who presents for treatment cycle 2, day 1 of Pembrolizumab + GVD. Pre-treatment Nursing Assessment Nursing Assessment LOC: Alert, Awake Constitutional: Fatigue Fatigue: None Any falls since your last visit?: No Orientation: Oriented x4 Behavior: Calm Speech: Clear Language: No aphasia Vision: At baseline Peripheral Neuropathy: No Oral Mucosa Grade: Normal (0) Pt states has potential to be ?: N/A Shortness of Breath?: No Appetite: Good Have You Recently Lost Weight Without Trying?: No Have you been eating poorly because of a decreased appetite?: No Malnutrition Screening Tool (MST) Score: 0 Nausea/Vomiting: Yes (Intermittent. PRN meds prescribed) Abdomen: Soft Diarrhea: No Constipation: Yes (PRN meds prescribed) Last BM Date: 05/26/23 Skin Condition/Temp: Warm, Dry Swelling: No BP: 144/79 Temp: 36.2 ??C (97.2 ??F) Temp src: Transdermal Pulse: 79 Resp: 18 SpO2: 98 % Weight: 71.2 kg (157 lb) Pain Score: 2 Treatment Patient: met treatment parameters Pre blood return: Brisk Kedar Capone tolerated treatment well. Patient was frequently observed and monitored throughout the administration of their treatment. Post blood return: Brisk IV access post infusion: NS Patient Education Treatment Education: Information/teaching given to patient including process and procedure related to today's visit Response: Verbalizes understanding Discharge Plan Discharge instructions given to patient. Future appointments given and reviewed with treatment plan. Discharge Mode: Ambulatory Accompanied by: Self Discharged To: Home HAND SPONGE BOAT documented in this encounter Plan of Treatment Not on file documented as of this encounter Visit Diagnoses Diagnosis Prevention of chemotherapy-induced neutropenia- Primary Hodgkin lymphoma, unspecified Hodgkin lymphoma type, unspecified body region (HCC) documented in this encounter Administered Medications Inactive Administered Medications - up to 3 most recent administrations Medication Order MAR Action Action Date Dose Rate Site dexAMETHasone (DECADRON) 10 mg in sodium chloride 0.9% 50 mL IVPB 10 mg, intravenous, at 153 mL/hr, Administer over 20 Minutes, Once, On Wed05/26/23 at 1130, For 1 doseIndications:Hodgkin lymphoma, unspecified Hodgkin lymphoma type, unspecified body region (HCC),Prevention of chemotherapy-induced neutropenia New Bag 05/26/2023 11:06 AM DECKHAND SPONGE BOAT 10 mg 153 mL/hr dextrose 5% infusion 30 mL/hr, intravenous, Continuous, Starting on Wed05/26/23 at 1130, 30 mL/hr while doxil (liposomal doxorubicin) is infusing Flush line with 10 - 20 mL before and after doxil (liposomal doxorubicin) infusionIndications:Hodgkin lymphoma, unspecified Hodgkin lymphoma type, unspecified body region (HCC),Prevention of chemotherapy-induced neutropenia New Bag 05/26/2023 1:42 PM DECKHAND SPONGE BOAT 30 mL/hr 30 mL/hr DOXOrubicin liposomal (DOXIL) 27 mg in dextrose 5% 250 mL IVPB 27 mg (rounded from 27.3 mg = 15 mg/m2 ? 1.82 m2 Treatment Plan BSA from Recorded weight), intravenous, Once, On Wed05/26/23 at 1315, For 1 dose, FIRST DOSE: - Infuse at 1 mg/min (no less than 60 minutes) SUBSEQUENT DOSES: - If NO previous infusion reaction administer over 60 minutes Irritant. Not to be administered as IV push. Flush line with [id number]:Hodgkin lymphoma, unspecified Hodgkin lymphoma type, unspecified body region (HCC),Prevention of chemotherapy-induced neutropenia New Bag 05/26/2023 1:43 PM DECKHAND SPONGE BOAT 27 mg 263.5 mL/hr gemCITabine (GEMZAR) 1,820 mg in sodium chloride 0.9% 250 mL IVPB 1,820 mg (1,000 mg/m2 ? 1.82 m2 Treatment Plan BSA from Recorded weight), intravenous, at 536.4 mL/hr, Administer over 30 Minutes, Once, On Wed05/26/23 at 1245, For 1 doseIndications:Hodgkin lymphoma, unspecified Hodgkin lymphoma type, unspecified body region (HCC),Prevention of chemotherapy-induced neutropenia New Bag 05/26/2023 1:05 PM DECKHAND SPONGE BOAT 1,820 mg 536.4 mL/hr ondansetron (ZOFRAN) tablet 8 mg 8 mg, oral, Once, On Wed05/26/23 at 1130, For 1 doseIndications:Hodgkin lymphoma, unspecified Hodgkin lymphoma type, unspecified body region (HCC),Prevention of chemotherapy-induced neutropenia Given 05/26/2023 11:02 AM DECKHAND SPONGE BOAT 8 mg pembrolizumab (KEYTRUDA) 200 mg in sodium chloride 0.9% 100 mL 200 mg, intravenous, at 216 mL/hr, Administer over 30 Minutes, Once, On Wed05/26/23 at 1200, For 1 dose, Use 0.2-5 micron filterIndications:Hodgkin lymphoma, unspecified Hodgkin lymphoma type, unspecified body region (HCC),Prevention of chemotherapy-induced neutropenia New Bag 05/26/2023 11:39 AM DECKHAND SPONGE BOAT 200 mg 216 mL/hr vinorelbine (NAVELBINE) 36 mg in sodium chloride 0.9% 50 mL IVPB 36 mg (rounded from 36.4 mg = 20 mg/m2 ? 1.82 m2 Treatment Plan BSA from Recorded weight), intravenous, at 321.6 mL/hr, Administer over 10 Minutes, Once, On Wed05/26/23 at 1230, For 1 dose, Vesicant - For IV use only. Fatal if given intrathecallyIndications:Ho dgkin lymphoma, unspecified Hodgkin lymphoma type, unspecified body region (HCC),Prevention of chemotherapy-induced neutropenia New Bag 05/26/2023 12:50 PM DECKHAND SPONGE BOAT 36 mg 321.6 mL/hr documented in this encounter Orders Nursing Count Last Ordered Date First Orde red Date ONCBCN NURSING COMMUNICATION [id number] 1 05/26 ONCBCN TREATMENT PARAMETERS 1 05/26/2023 Appointment Requests Count Last Ordered Date Fi rst Ordered Date ONCBCN RETURN CHEMO 3HRS 1 05/26/2023 documented in this encounter Care Teams [employer] Worker Relationship Specialty Start Date End Date No, Physician PCP - General 05/06/23 Shasta Sena MD [address] [facility] [address] [place] [address] Medical Oncologist/Motor Vehicle Escort Driver Medical Oncology 05/05/23 documented as of this encounter
--- OUTSIDE RECORDS SUMMARY | 2024-06-25 06:53 | XMS_ITS | Encounter Summary ---
Author Organization [facility] Address [address] [place] [address] Phone Care Team Providers Care Web Applications Architect Name Role Phone Shasta Sena MD Unavailable [phone] No, Physician Primary Care Provider [phone] Encounter Details Date Type Department Care Team (Late st Contact Info) Description 05/17/2023 Orders Only [facility] [address] [facility] 7th [place] [address] [place] [id number] Esmer Mckay, RN Social History Tobacco Use Types Packs/Day Years [...] on file Legal Sex Male 10:05 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 She verbalized understanding. REPAIRER documented in this encounter Plan of Treatment Not on file documented as of this encounter Visit Diagnoses Not on filedocumented in this encounter Care Teams Web Applications Architect Relationship Specialty Start Date End Date No, Physician PCP - General 05/06/23 Shasta Sena MD [address] [facility] [address] [place] [address] Medical Oncologist/Refuse Collector Supervisor Medical Oncology 05/05/23 documented as of this encounter
--- OUTSIDE RECORDS SUMMARY | 2024-06-25 06:53 | XMS_ITS | Encounter Summary ---
Author Organization [facility] Address [address] [place] [address] Care Team Providers Care Cell Stripper Final Name Role Phone Shasta Sena MD Unavailable [phone] No, Physician Primary Care Provider [phone] Reason for Visit * MRI/CAT/PET Scan (Routine) - Closed Specialty Diagnoses / Procedures Referred By Contac t Referred To Contact Radiology Diagnoses Hodgkin lymphoma, unspecified Hodgkin lymphoma type, unspecified body region (HCC) Procedures PET/CT FDG Skull to Thigh Abigail Sapp NP [address] [facility], [address] [place] [address] Phone: tel: fax: [address] [address] Referral ID Status Reason Start Date Expiration Date Visits Re quested Visits Authorized [id number] Closed 05/07/2023 06/05/2024 2 2 Encounter Details Date Type Department Care Team (Latest Contact Info) Description 06/16/2023 10:20 AM SIGNAL SUPERVISOR - 06/16/2023 11:59 PM SIGNAL SUPERVISOR Hospital Encounter [facility] Radiology [facility] [address] [place] [address] Discharge Disposition: Discharge to home or self care Social History Tobacco Use Types Packs/Day Years [...] on file Legal Sex Male 10:05 AM SIGNAL SUPERVISOR Gender Identity Male 05/30/2023 9:41 PM SIGNAL SUPERVISOR Sexual Orientation Straight 05/30/2023 9: 41 PM SIGNAL SUPERVISOR documented as of this encounter Medications at Time of Discharge acyclovir (ZOVIRAX) 400 mg tabletIndication s:Hodgkin lymphoma, unspecified Hodgkin lymphoma type, unspecified body region (HCC),Prevention of chemotherapy-ind uced neutropenia Take 1 tablet (400 mg total) by mouth 2 (two) times a day For shingles prevention. 60 tablet 3 3 albuterol HFA (PROVENTIL HFA,VENTOLIN HFA,PROAIR HFA) 90 mcg/actuation inhalerIndicatio ns:Hodgkin lymphoma, unspecified Hodgkin lymphoma type, unspecified body region (HCC) Inhale 2 puffs once as needed for wheezing or shortness of breath (if Nebulizer not available) [address] (CYMBALTA) 60 mg capsule Take 1 capsule (60 mg total) by mouth daily 30 capsule 11 3 naproxen (NAPROSYN) 500 mg tablet Take 1 tablet (500 mg total) by mouth 2 (two) times a day with meals 3 ondansetron (ZOFRAN) 8 mg tabletIndication s:Hodgkin lymphoma, unspecified Hodgkin lymphoma type, unspecified body region (HCC),Prevention of chemotherapy-ind uced neutropenia Take 1 tablet (8 mg total) by mouth every 8 (eight) hours as needed for nausea or vomiting Use if prochlorperazine does not stop nausea 24 tablet 3 3 prochlorperazine (Compazine) 10 mg tabletIndication s:Hodgkin lymphoma, unspecified Hodgkin lymphoma type, unspecified body region (HCC),Prevention of chemotherapy-ind uced neutropenia Take 1 tablet (10 mg total) by mouth every 6 (six) hours as needed for nausea or vomiting Use first for nausea 60 tablet 3 triamcinolone (KENALOG) 0.1 % cream Apply topically 2 (two) times a day Apply to rash in groin 453 g 1 dexAMETHasone (DECADRON) 4 mg/mL injection Infuse 1 mL (4 mg total) into a venous catheter every 6 (six) hours 3 06/21/20 filgrastim-sndz (Zarxio) 480 mcg/0.8 mL syringe Inject 0.8 mL (480 mcg total) under the skin daily 8 mL 1 3 06/21/20 gabapentin (NEURONTIN) 600 mg tablet Take 1 tablet (600 mg total) by mouth 3 (three) times a day 90 tablet 11 3 06/30/20 HYDROcodone-acet aminophen (NORCO) 10-325 mg per tablet Take 1 tablet by mouth every 4 (four) hours as needed 3 06/21/20 morphine ER (MS CONTIN) 15 mg 12 hr tablet Take 1 tablet (15 mg total) by mouth 2 (two) times a day for 21 days 42 tablet 3 06/30/20 naloxone (NARCAN) 4 mg/actuation spray,non-aeroso l Administer 1 spray into affected nostril(s) as needed for opioid reversal Call 911. Administer a single spray in one nostril. Repeat every 3 minutes as needed if no or minimal response. 1 each 3 06/21/20 nystatin cream Apply topically 2 (two) times a day Apply to red area around the groin 30 g 1 3 06/30/20 oxyCODONE (ROXICODONE) 10 mg tabletIndication s:Pain Take 1 tablet (10 mg total) by mouth every 6 (six) hours as needed for pain 45 tablet 3 06/30/[address] (PROTONIX) 40 mg EC tabletIndication s:Stress Ulcer Prophylaxis Take 1 tablet (40 mg total) by mouth 2 (two) times a day 60 tablet 11 3 06/30/20 documented as of this encounter Discharge Disposition Disposition Code Departure Means Destination Discharge to home or self care documented in this encounter Plan of Treatment Not on file documented as of this encounter Procedures Procedure Name Priority Date/Time Associated Diagnosis Comments PET/CT FDG SKULL TO THIGH Schedule Routine, Read Routine (OP Routine) 06/16/2023 1:00 PM SIGNAL SUPERVISOR Hodgkin lymphoma, unspecified Hodgkin lymphoma type, unspecified body region (HCC) documented in this encounter Visit Diagnoses Not on filedocumented in this encounter Administered Medications Inactive Administered Medications - up to 3 most recent administrations Medication Order MAR Action Action Date Dose Rate Site fludeoxyglucose F-18 (FDG) injection 15 millicurie 15 millicurie, intravenous, Once in imaging, radiopharmaceutical, Starting on Wed06/16/23 at 1119, For 1 dose Given 06/16/2023 11:27 AM SIGNAL SUPERVISOR 12.2 millicuries documented in this encounter Orders Medications Ordered That Kendell ht Not Have Been Administered Count Last Ordered Date First Ordered Date fludeoxyglucose F-18 (FDG) i njection 15 millicurie 1 06/16/2023 documented in this encounter Care Teams Cell Stripper Final Relationship Specialty Start Date End Date No, Physician PCP - General 05/06/23 Shasta Sena MD [facility] [address] [place] [address] Medical Oncologist/Manager Product Marketing Medical Oncology 05/05/23 documented as of this encounter
--- OUTSIDE RECORDS SUMMARY | 2024-06-25 06:53 | XMS_ITS | Encounter Summary ---
Author Organization [facility] Address [address] [place] [address] Phone Care Team Providers Care Pool Lifeguard Name Role Phone Shasta Sena MD Unavailable [phone] No, Physician Primary Care Provider [phone] Encounter Details Date Type Department Care Team (Latest Contact Info) Description 10/14/2023 Orders Only [facility] Scanning, Provider Social History Tobacco Use Types Packs/Day Years [...] on file Legal Sex Male 10:05 AM CREDIT OFFICER Gender Identity Male 05/30/2023 9:41 PM CREDIT OFFICER Sexual Orientation Straight 05/30/2023 9: 41 PM CREDIT OFFICER documented as of this encounter Plan of Treatment Not on file documented as of this encounter Procedures Procedure Name Priority Date/Time Associated Diagnosis Comments SCAN - RADIOLOGY/IMAGING 10/14/2023 documented in this encounter Results * SCAN - RADIOLOGY/IMAGING (10/14/2023) Anatomical Region Laterality Modality Other us Provider Scanning Final Result documented in this encounter Visit Diagnoses Not on filedocumented in this encounter Care Teams Pool Lifeguard Relationship Specialty Start Date End Date No, Physician PCP - General 05/06/23 Shasta Sena MD [address] [facility] [address] [place] [address] Medical Oncologist/Business System Consultant Medical Oncology 05/05/23 documented as of this encounter
--- OUTSIDE RECORDS SUMMARY | 2024-06-25 06:53 | XMS_ITS | Encounter Summary ---
Author Organization [facility] Healthcare Address [address] [place] [address] Care Team Providers Care Timber Treating Tank Operator Name Role Phone Shasta Sena MD Unavailable [phone] No, Physician Primary Care Provider Encounter Details Date Type Department Care Team (Latest Contact Info) Description 06/16/2023 11:45 AM BESSEMER CONVERTER OPERATOR - 06/16/2023 11:59 PM BESSEMER CONVERTER OPERATOR Hospital Encounter [facility] ([facility]) [facility] [place] [address] Hodgkin lymphoma, unspecified Hodgkin lymphoma type, unspecified body region (HCC); Prevention of chemotherapy-induce d neutropenia Discharge Disposition: Discharge to home or self [...] on file Legal Sex Male 10:05 AM BESSEMER CONVERTER OPERATOR Gender Identity Male 05/30/2023 9:41 PM BESSEMER CONVERTER OPERATOR Sexual Orientation Straight 05/30/2023 9: 41 PM BESSEMER CONVERTER OPERATOR documented as of this encounter Medications at [...] first for nausea 60 tablet 3 3 triamcinolone (KENALOG) 0.1 % cream Apply topically 2 (two) times a day Apply to rash in groin 453 g 1 3 dexAMETHasone (DECADRON) 4 mg/mL injection Infuse 1 mL (4 mg total) into a venous catheter every 6 (six) hours 3 06/21/20 23 filgrastim-sndz (Zarxio) 480 mcg/0.8 mL syringe Inject 0.8 mL (480 mcg total) under the skin daily 8 mL 1 06/21/20 gabapentin (NEURONTIN) 600 mg tablet Take 1 tablet (600 mg total) by mouth 3 (three) times a day 90 tablet 11 3 06/30/20 HYDROcodone-acet aminophen (NORCO) 10-325 mg per tablet Take 1 tablet by mouth every 4 (four) hours as needed 06/21/20 morphine ER (MS CONTIN) 15 mg 12 hr tablet Take 1 tablet (15 mg total) by mouth 2 (two) times a day for 21 days 42 tablet 06/30/20 naloxone (NARCAN) 4 mg/actuation spray,non-aeroso l Administer 1 spray into affected nostril(s) as needed for opioid reversal Call 911. Administer a single spray in one nostril. Repeat every 3 minutes as needed if no or minimal response. 1 each 3 06/21/20 nystatin cream Apply topically 2 (two) times a day Apply to red area around the groin 30 g 1 06/30/20 oxyCODONE (ROXICODONE) 10 mg tabletIndication s:Pain Take 1 tablet (10 mg total) by mouth every 6 (six) hours as needed for pain 45 tablet 06/30/[address] (PROTONIX) 40 mg EC tabletIndication s:Stress Ulcer Prophylaxis Take 1 tablet (40 mg total) by mouth 2 (two) times a day 60 tablet 11 06/30/20 documented as of this encounter Discharge Disposition Disposition Code Departure Means Destination Discharge to home or self care documented in this encounter Plan of Treatment Not on file documented as of this encounter Procedures Procedure Name Priority Date/Time Associated Diagnosis Comments EGFR STAT 06/16/2023 10:50 AM BESSEMER CONVERTER OPERATOR Hodgkin lymphoma, unspecified Hodgkin lymphoma type, unspecified body region (HCC) Prevention of chemotherapy-induce d neutropenia DIFFERENTIAL AUTO STAT 06/16/2023 10: 50 AM BESSEMER CONVERTER OPERATOR Hodgkin lymphoma, unspecified Hodgkin lymphoma type, unspecified body region (HCC) Prevention of chemotherapy-induce d neutropenia THYROID FUNCTION CASCADE Routine 06/16/2023 10:50 AM BESSEMER CONVERTER OPERATOR Hodgkin lymphoma, unspecified Hodgkin lymphoma type, unspecified body region (HCC) Prevention of chemotherapy-induce d neutropenia CBC WITH AUTO DIFFERENTIAL STAT 06/16/2023 10:50 AM BESSEMER CONVERTER OPERATOR Hodgkin lymphoma, unspecified Hodgkin lymphoma type, unspecified body region (HCC) Prevention of chemotherapy-induce d neutropenia ERYTHROCYTE SEDIMENTATION RATE Routine 06/16/2023 10:50 AM BESSEMER CONVERTER OPERATOR Hodgkin lymphoma, unspecified Hodgkin lymphoma type, unspecified body region (HCC) Prevention of chemotherapy-induce d neutropenia COMPREHENSIVE METABOLIC PANEL STAT 06/16/2023 10:50 AM BESSEMER CONVERTER OPERATOR Hodgkin lymphoma, unspecified Hodgkin lymphoma type, unspecified body region (HCC) Prevention of chemotherapy-induce d neutropenia documented in this encounter Results * eGFR (06/16/2023 10:50 AM BESSEMER CONVERTER OPERATOR) Pathologist [facility] eGFR >90 >=60 mL/min/1. 73 m2 [facility] Comment: Interpretive Data Reference Interval Normal ?>/= 90 mL/min/1.73m2 Mildly decreased* ? 60 - 89 mL/min/1.73m2 Mildly to moderately decreased ?45 - 59 mL/min/1.73m2 Moderately to severely decreased ??30 - 44 mL/min/1.73m2 Severely decreased ?15 - 29 mL/min/1.73m2 Kidney Failure ?< 15 ??mL/min/1.73m2 *Relative to young adult level Estimated glomerular filtration rate is determined by the 2020 CKD-EPI equation recommended by the National Kidney Foundation (A Unifying Approach to GFR Estimation: Recommendations of the NKF-ASK Task Force on Reassessing the Inclusion of Race in Diagnosing Kidney Disease, JASN 2020). The CKD-EPI equation should not be used for patients with unstable renal function and has not been validated in children and those over 70. Current interpretive data was last reviewed 2021. Testing performed by: [facility], [address] [place] [phone] Blood 06/16/2023 10:5 0 AM BESSEMER CONVERTER OPERATOR 06/16/2023 10:52 AM BESSEMER CONVERTER OPERATOR us Shasta Sena MD LAB BLOOD ORDERABLES Final Result [facility] [place] [address] * (ABNORMAL) Differential, auto (06/16/2023 10:50 AM BESSEMER CONVERTER OPERATOR) Neutrophil abs 0.5(L) 1.5 - 6.6 K/cumm [facility] Comment:Testing performed by : [facility], [address] [place] [phone] Lymphocyte abs 0.3(L) 1.2 - 3.3 K/cumm [facility] Comment:Testing performed by : [facility], [address] [place] [phone] Monocyte abs 0.8 0.2 - 1.2 K/cumm [facility] Comment:Testing performed by : [facility], [address] [place] [phone] Eosinophil abs 0.1 0.0 - 0.5 K/cumm [facility] Comment:Testing performed by : [facility], [address] [place] [phone] Basophil abs 0.0 0.0 - 0.2 K/cumm [facility] Comment:Testing performed by : [address] [phone] Neutrophil pct 28.3 % [facility] Comment: Interpretive Data Percent cell count reference ranges are not reported, since discordance with absolute values may lead to misinterpretation of CBC data. Current Interpretive Data was last revised on 2017. Testing performed by: [facility], [address] [place] [phone] Lymphocyte pct 20.5 % [facility] Comment: Interpretive Data Percent cell count reference ranges are not reported, since discordance with absolute values may lead to misinterpretation of CBC data. Current Interpretive Data was last revised on 2017. Testing performed by: [facility], [address] [place] [phone] Monocyte pct 45.6 % [facility] Comment:Testing performed by : [facility], [address] [place] [phone] Eosinophil pct 4.8 % [facility] Comment:Testing performed by : [facility], [address] [place] [phone] Basophil pct 0.8 % [facility] Comment:Testing performed by : [address] [phone] Blood 06/16/2023 10:5 0 AM BESSEMER CONVERTER OPERATOR 06/16/2023 10:52 AM BESSEMER CONVERTER OPERATOR Shasta Sena MD LAB BLOOD ORDERABLES Final Result [facility] Department [place] [address] * (ABNORMAL) CBC with auto differential (06/16/2023 10:50 AM BESSEMER CONVERTER OPERATOR) WBC 1.7(L) 3.8 - 9.8 K/cumm [facility] Comment:Testing performed by : [facility], [address] [place] [phone] Hgb 8.2(L) 13.8 - 17.2 g/dL [facility] Comment: Interpretive Data A reference range for this assay has not been established for patients with an unknown legal sex. Please refer to the laboratory test catalog for established sex-specific reference intervals. Current interpretive data was last revised on 2023. Testing performed by: [address] [phone] Hct 24.4(L) 40.7 - 50.3 % [facility] Comment: Interpretive Data A reference range for this assay has not been established for patients with an unknown legal sex. Please refer to the laboratory test catalog for established sex-specific reference intervals. Current interpretive data was last revised on 2023. Testing performed by: [facility], [address] [place] [address] Plt 486(H) 140 - 440 K/cumm [facility] Comment:Testing performed by : [place] [address] MPV 6.3(L) 6.8 - 10.4 fL [facility] Comment:Testing performed by : [facility], [address] [place] [address] RBC 3.24(L) 4.50 - 5.70 M/cumm [facility] Comment: Interpretive Data A reference range for this assay has not been established for patients with an unknown legal sex. Please refer to the laboratory test catalog for established sex-specific reference intervals. Current interpretive data was last revised on 2023. Testing performed by: [facility], [address] [place] [address] MCV 75.3(L) 80.0 - 97.6 fL [facility] Comment:Testing performed by : [place] [phone] MCH 25.4(L) 26.7 - 33.7 pg [facility] Comment:Testing performed by : [place] [address] MCHC 33.7 32.7 - 35.5 g/dL [facility] Comment:Testing performed by : [facility], [address] [place], [place] [phone] RDW CV 24.1(H) 11.8 - 14.6 % [facility] Comment:Testing performed by : [place] [phone] NRBC abs 0.01 0.00 - 0.01 K/cumm [facility] Comment:Testing performed by : [place] [phone] Blood 06/16/2023 10:5 0 AM BESSEMER CONVERTER OPERATOR 06/16/2023 10:52 AM BESSEMER CONVERTER OPERATOR us Shasta Sena MD LAB BLOOD ORDERABLES Final Result [facility] Department [place] [address] * (ABNORMAL) Comprehensive metabolic panel (06/16/2023 10:50 AM BESSEMER CONVERTER OPERATOR) Sodium 140 135 - 145 mmol/L [facility] Comment:Testing performed by : [facility], [address] [place] [phone] Potassium, pl 3.7 3.3 - 4.9 mmol/L [facility] Comment:Testing performed by : [facility], [address] [place] [phone] Chloride 105 97 - 110 mmol/L [facility] Comment:Testing performed by : [facility], [address] [place] [phone] CO2 26 22 - 32 mmol/L [facility] Comment:Testing performed by : [facility], [address] [place] [phone] Anion gap 9 2 - 15 mmol/L [facility] Comment:Testing performed by : [facility], [address] [place] [phone] BUN 11 6 - 25 mg/dL [facility] Comment:Testing performed by : [facility], [address] [place] [phone] Creatinine 0.65(L) 0.80 - 1.30 mg/dL [facility] Comment:Testing performed by : [facility], [address] [place] [phone] Glucose 91 70 - 199 mg/dL [facility] Comment: Interpretive Data Fasting glucose >/= 126 mg/dl is diagnostic for diabetes. ?? Fasting is defined as no caloric intake for at least 8 hours. Fasting glucose between 100 mg/dl to 125 mg/dl is diagnostic of prediabetes. In a patient with classic symptoms of hyperglycemia or hyperglycemic crisis, a random glucose >/= 200 mg/dl is diagnostic for diabetes. In the absence of unequivocal hyperglycemia, results should be confirmed by repeat testing. The classification and Diagnosis of Diabetes Diabetes Care 2021; 46: S19-S40. Current interpretive data was last revised 2022. Testing performed by: [facility], [address] [place] [phone] Calcium 8.9 8.5 - 10.3 mg/dL [facility] Comment:Testing performed by : [facility], [address] [place] [phone] Bilirubin, total 0.4 0.1 - 1.2 mg/dL [facility] Comment:Testing performed by : [facility], [address] [place] [phone] Protein, pl 6.9 6.5 - 8.5 g/dL [facility] Comment:Testing performed by : [facility], [address] [place] [phone] Albumin 4.2 3.5 - 5.0 g/dL [facility] Comment:Testing performed by : [facility], [address] [place] [phone] Alk phos 191(H) 40 - 130 Units/L [facility] Comment:Testing performed by : [facility], [address] [place] [phone] ALT 28 7 - 55 Units/L [facility] Comment:Testing performed by : [facility], [address] [place] [phone] AST 20 10 - 50 Units/L [facility] Comment:Testing performed by : [address] [phone] Blood 06/16/2023 10:5 0 AM BESSEMER CONVERTER OPERATOR 06/16/2023 10:52 AM BESSEMER CONVERTER OPERATOR us Shasta Sena MD LAB BLOOD ORDERABLES Final Result [facility] [place] [address] * (ABNORMAL) Erythrocyte sedimentation rate (06/16/2023 10:50 AM BESSEMER CONVERTER OPERATOR) Erythrocyte sedimentation rate 37(H) 1 - 15 mm/hr [facility] Blood 06/16/2023 10:5 0 AM BESSEMER CONVERTER OPERATOR 06/16/2023 11:08 AM BESSEMER CONVERTER OPERATOR us Shasta Sena MD LAB BLOOD ORDERABLES Final Result Performing Organization Address [facility] Co de Phone Number [facility] [place] [address] * TSH reflex to free T4 (06/16/2023 10:50 AM BESSEMER CONVERTER OPERATOR) TSH 0.66 0.30 - 4.20 mcIUnit/mL [facility] Blood 06/16/2023 10:5 0 AM BESSEMER CONVERTER OPERATOR 06/16/2023 11:16 AM BESSEMER CONVERTER OPERATOR Shasta Sena MD LAB BLOOD ORDERABLES Final Result Performing Organization Address [facility] [place] [address] documented in this encounter Visit Diagnoses Diagnosis Hodgkin lymphoma, unspecified Hodgkin lymphoma type, unspecified body region (HCC) Prevention of chemotherapy-induced neutropenia documented in this encounter Care Teams Timber Treating Tank Operator Relationship Specialty Start Date End Date No, Physician PCP - General 05/06/23 Shasta Sena MD [address] [place] [address] [place] [address] Medical Oncologist/[facility] [place] Medical Oncology 05/05/23 documented as of this encounter
--- OUTSIDE RECORDS SUMMARY | 2024-06-25 06:53 | XMS_ITS | Encounter Summary ---
Author Organization [facility] Address [address] [place] [address] Phone Care Team Providers Care Real Estate Officer Name Role Phone Shasta Sena MD Unavailable [phone] No, Physician Primary Care Provider [phone] Encounter Details Date Type Department Care Team (Late st Contact Info) Description 05/31/2023 Telephone [facility] On[facility] 7th [place] [address] [place] [address] Esmer Mckay RN Social History Tobacco Use Types Packs/Day [...] on file Legal Sex Male 10:05 AM AMMUNITION AND EXPLOSIVES HANDLER Gender Identity Male 05/30/2023 9:41 PM AMMUNITION AND EXPLOSIVES HANDLER Sexual Orientation Straight 05/30/2023 9: 41 PM AMMUNITION AND EXPLOSIVES HANDLER documented as of this encounter Miscellaneous Notes * Telephone Encounter - Esmer Mckay RN - 05/31/2023 10:44 AM AMMUNITION AND EXPLOSIVES HANDLER C/o scrotal/testicular discomfort. Advised elevation and continue pain meds as needed. Dr. Okeefe examine in office this week. NITION AND EXPLOSIVES HANDLER documented in this encounter Plan of Treatment Not on file documented as of this encounter Visit Diagnoses Not on filedocumented in this encounter Care Teams Real Estate Officer Relationship Specialty Start Date End Date No, Physician PCP - General 05/06/23 Shasta Sena MD [address] [facility] [address] [place] [address] Medical Oncologist/Zipper Sewing Machine Operator Medical Oncology 05/05/23 documented as of this encounter
--- OUTSIDE RECORDS SUMMARY | 2024-06-25 06:53 | XMS_ITS | Encounter Summary ---
Author Organization [facility] Address [address] [place] [address] Phone Care Team Providers Care Dry Sand Molder Name Role Phone Shasta Sena MD Unavailable [phone] No, Physician Primary Care Provider Encounter Details Date Type Department Care Team (Late st Contact Info) Description 06/16/2023 Social Work [facility] On[facility] 7th [place] [address] [place] [address] Domonique Abarca LCSW Social History Tobacco Use Types Packs/Day Years [...] on file Legal Sex Male 10:05 AM ANESTHESIA ATTENDING Gender Identity Male 05/30/2023 9:41 PM ANESTHESIA ATTENDING Sexual Orientation Straight 05/30/2023 9: 41 PM ANESTHESIA ATTENDING documented as of this encounter Progress Notes * Domonique Abarca LCSW - 06/16/2023 5:09 PM CST RICHTER Handkerchief Sample Clerk Brief Intervention Social Work Follow-Up Note: Transportation Assistance Received request from RN to assist with transportation to home today. Patient uses [employer] transportation, but his treatment appointment will end later than expected. Spoke with patient and his Mom,Blanche. Blanche stated that she was trying to arrange for a new ride with [employer] and also might have afamily friend who could come to pick-up patient. She inquired about possible assistance with gas. Social Work advised that SW could leave a gas card with patient and she called back to advise that family friend will be here to pick-up patient at 7:00 PM. Updated RN and patient. THESIA ATTENDING documented in this encounter Plan of Treatment Not on file documented as of this encounter Visit Diagnoses Not on filedocumented in this encounter Care Teams Dry Sand Molder Relationship Specialty Start Date End Date No, Physician PCP - General 05/06/23 Shasta Sena MD [address] [facility] [address] [place] [address] Medical Oncologist/[facility] [place] Medical Oncology 05/05/23 documented as of this encounter
--- OUTSIDE RECORDS SUMMARY | 2024-06-25 06:53 | XMS_ITS | Encounter Summary ---
Author Organization [facility] Address [address] [place] [address] Phone Care Team Providers Care Academic Dean Name Role Phone Shasta Sena MD Unavailable [phone], Physician Primary Care Provider [phone] Reason for Visit * Episode Based Medications (Routine) - Closed Specialty Diagnoses / Procedures Referred By Devora guzman Referred To Contact Oncology Diagnoses Hodgkin lymphoma, unspecified Hodgkin lymphoma type, unspecified body region (HCC) Prevention of chemotherapy-induced neutropenia [address] [address] Phone: tel: fax: [facility] [address] [place] [address] [place] [address] Phone: tel: Referral ID Status Reason Start Date Expiration Date Visits Re quested Visits Authorized [id number] Closed 05/04/2023 07/21/2023 1 8 Encounter Details Date Type Department Care Team (Late st Contact Info) Description 06/30/2023 11:00 AM BLASTER HELPER Infusion [facility] Oncology [address] [place] [address] [place] [address] Prevention of chemotherapy-induced neutropenia (Primary Dx); Hodgkin [...] on file Legal Sex Male 10:05 AM BLASTER HELPER Gender Identity Male 05/30/2023 9:41 PM BLASTER HELPER Sexual Orientation Straight 05/30/2023 9: 41 PM BLASTER HELPER documented as of this encounter Nursing Notes * Charlette Segovia RN - 06/30/2023 11:00 AM CST Oncology Nursing Note [facility] Kedar Capone is a 33 y.o. male who presents for treatment cycle 3, day 8 of Vinorelbine, gemcitabine and Doxorubicin liposomal. Pre-treatment Nursing Assessment Nursing Assessment LOC: Alert, Awake Fatigue: Occassional Any falls since your last visit?: No Orientation: Oriented x4 Behavior: Calm Speech: Clear Language: No aphasia Vision: At baseline Peripheral Neuropathy: Yes (fingers, unchanged) Oral Mucosa Grade: Normal (0) Pt states has potential to be ?: N/A Shortness of Breath?: No Appetite: Good Have You Recently Lost Weight Without Trying?: No Have you been eating poorly because of a decreased appetite?: No Malnutrition Screening Tool (MST) Score: 0 Nausea/Vomiting: No Diarrhea: No Constipation: No Skin Condition/Temp: Warm, Dry Swelling: No Additional Notes: BP: 144/81 Temp: 36.6 ??C (97.8 ??F) Temp src: Transdermal Pulse: 81 Resp: 18 SpO2: 96 % Weight: 67.9 kg (149 lb 9.6 oz) Pain Score: 0 - No pain Treatment Patient: met treatment parameters Pre blood return: Brisk Kedar Capone tolerated treatment well. Patient was frequently observed and monitored throughout the administration of their treatment. Additional Notes: Pt tolerated treatment well, no reaction. No questions or concerns at this time. Discharged in stable condition. Will call team with any issues that arise and will follow up as scheduled. Post blood return: Brisk IV access post infusion: NS Patient Education Treatment Education: Information/teaching given to patient including process and procedure related to today's visit Response: Verbalizes understanding Discharge Plan Discharge instructions given to patient. Future appointments given and reviewed with treatment plan. Discharge Mode: Ambulatory Accompanied by: Self Discharged To: Home TER HELPER documented in this encounter Plan of Treatment [...] mL/hr, Administer over 20 Minutes, Once, On Wed06/30/23 at 1245, For 1 doseIndications:Sandoval n lymphoma, unspecified Hodgkin lymphoma type, unspecified body region (HCC),Prevention of chemotherapy-induced neutropenia New Bag 06/30/2023 12:16 PM BLASTER HELPER 10 mg 153 mL/hr dextrose 5% infusion 30 mL/hr, intravenous, Continuous, Starting on Wed06/30/23 at 1245, 30 mL/hr while doxil (liposomal doxorubicin) is infusing Flush line with 10 - 20 mL before and after doxil (liposomal doxorubicin) infusionIndications:Ho dgkin lymphoma, unspecified Hodgkin lymphoma type, unspecified body region (HCC),Prevention of chemotherapy-induced neutropenia New Bag 06/30/2023 12:07 PM BLASTER HELPER 30 mL/hr 30 mL/hr DOXOrubicin liposomal (DOXIL) 18.2 mg in dextrose 5% 250 mL IVPB 18.2 mg (10 mg/m2 ? 1.82 m2 Treatment Plan BSA from Recorded weight), intravenous, Once, On Wed06/30/23 at 1400, For 1 dose, FIRST DOSE: - Infuse at 1 mg/min (no less than 60 minutes) SUBSEQUENT DOSES: - If NO previous infusion reaction administer over 60 minutes Irritant. Not to be administered as IV push. Flush line with [id number]:Hodgkin lymphoma, unspecified Hodgkin lymphoma type, unspecified body region (HCC),Prevention of chemotherapy-induced neutropenia New Bag 06/30/2023 1:58 PM BLASTER HELPER 18.2 mg 259.1 mL/hr gemCITabine (GEMZAR) 1,820 mg in sodium chloride 0.9% 250 mL IVPB 1,820 mg (1,000 mg/m2 ? 1.82 m2 Treatment Plan BSA from Recorded weight), intravenous, at 536.4 mL/hr, Administer over 30 Minutes, Once, On Wed06/30/23 at 1330, For 1 doseIndications:Hodgki n lymphoma, unspecified Hodgkin lymphoma type, unspecified body region (HCC),Prevention of chemotherapy-induced neutropenia New Bag 06/30/2023 1:23 PM BLASTER HELPER 1,820 mg 536.4 mL/hr ondansetron (ZOFRAN) tablet 8 mg 8 mg, oral, Once, On Wed06/30/23 at 1245, For 1 doseIndications:Hodgki n lymphoma, unspecified Hodgkin lymphoma type, unspecified body region (HCC),Prevention of chemotherapy-induced neutropenia Given 06/30/2023 12:15 PM BLASTER HELPER 8 mg pegfilgrastim (NEULASTA ON-BODY) injection 6 mg 6 mg, subcutaneous, Once, On Wed06/30/23 at 1245, For 1 dose, Attach to the patient as directed following the completion of chemotherapy - to be given OUTPATIENT only Refrigerate. ON-PRO deviceIndications:Hodg kin lymphoma, unspecified Hodgkin lymphoma type, unspecified body region (HCC),Prevention of chemotherapy-induced neutropenia Given 06/30/2023 3:05 PM BLASTER HELPER 6 mg Left Upper Arm vinorelbine (NAVELBINE) 36 mg in sodium chloride 0.9% 50 mL IVPB 36 mg (rounded from 36.4 mg = 20 mg/m2 ? 1.82 m2 Treatment Plan BSA from Recorded weight), intravenous, at 321.6 mL/hr, Administer over 10 Minutes, Once, On Wed06/30/23 at 1315, For 1 dose, Vesicant - For IV use only. Fatal if given intrathecallyIndicatio ns:Hodgkin lymphoma, unspecified Hodgkin lymphoma type, unspecified body region (HCC),Prevention of chemotherapy-induced neutropenia New Bag 06/30/2023 1:05 PM BLASTER HELPER 36 mg 321.6 mL/hr documented in this encounter Orders Nursing Count Last Ordered Date First Orde red Date ONCBCN NURSING COMMUNICATION [id number] 1 06/30 ONCBCN TREATMENT PARAMETERS 8 1 06/30/2023 Appointment Requests Count Last Ordered Date Fi rst Ordered Date ONCBCN RETURN CHEMO 2.5HRS 1 06/30/2023 documented in this encounter Care Teams Academic Dean Relationship Specialty Start Date End Date No, Physician PCP - General 05/06/23 Shasta Sena MD [address] [place] [address] [place] [id number] Medical Oncologist/Practical Nursing Teacher Medical Oncology 05/05/23 documented as of this encounter
--- OUTSIDE RECORDS SUMMARY | 2024-06-25 06:53 | XMS_ITS | Encounter Summary ---
Author Organization [facility] Address [address] [place] [address] Phone Care Team Providers Care Refrigerating Engineer Name Role Phone Shasta Sena MD Unavailable [phone] No, Physician Primary Care Provider [phone] Reason for Visit * Oncology (Routine) - Canceled Specialty Diagnoses / Procedures Referred By Devora guzman Referred To Contact Oncology Diagnoses Non-Hodgkin's lymphoma, unspecified body region, unspecified non-Hodgkin lymphoma type (HCC) Referral, Self Shasta Sena MD [address] [facility], [address] [place] [address] Phone: tel: fax: Referral ID Status Reason Start Date Expiration Date Visits Requested Visits Authorized [id number] Canceled Specialty Services Required 04/27/2023 07/04/2023 99 99 Encounter Details Date Type Department Care Team (Late st Contact Info) Description 06/16/2023 12:15 PM HOOP ROLLS OPERATOR Office Visit [facility] Oncology [address] 7th [place] [address] [place] [address] Shasta Sena MD [address] [facility] [address] [place] [address] 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?F) 06/16/2023 1:07 PM CS T Respiratory Rate 18 06/16/2023 1:07 PM HOOP ROLLS OPERATOR Oxygen Saturation 100% 06/16/2023 1:09 PM HOOP ROLLS OPERATOR Inhaled Oxygen Concentration - - Weight 68.3 kg (150 lb 9.6 oz) 06/16/2023 1:07 P M HOOP ROLLS OPERATOR Height - - Body Mass Index 24.31 04/28/2023 11:20 AM CDT documented in this encounter Ordered Prescriptions Prescription Sig Dispense Quantity Refills Last Filled Start Date End Date triamcinolone (KENALOG) 0.1 % cream Apply topically 2 (two) times a day Apply to rash in groin 453 g 1 06/16/2023 oxyCODONE (ROXICODONE) 10 mg tabletIndications: Pain Take 1 tablet (10 mg total) by mouth every 6 (six) hours as needed for pain 45 tablet 06/16/2023 3 morphine ER (MS CONTIN) 15 mg 12 hr tablet Take 1 tablet (15 mg total) by mouth 2 (two) times a day for 21 days 42 tablet 06/16/2023 3 documented in this encounter Progress Notes * Shasta Sena MD - 06/16/2023 12:00 AM CST PATIENT NAME: CRYSTAL ROYAL : 1990 ARTURO: 06/16/2023 DIAGNOSIS: Classical Hodgkin lymphoma, diagnosed on right supraclavicular lymph node biopsy on 02/10/2022, CD30 positive, CD15 positive, PAX5 weakly positive, stage IV, initial sites of disease bone marrow, diffuse hypermetabolic lymphadenopathy above and below the diaphragm, multiple osseous sites, and spleen. TREATMENT AND DISEASE COURSE: 1. ABVD x 2, 04/30/2022 - 06/01/2023. 2. Delayed interim CT scan, 08/17/2022, mixed response with progression in the left supraclaviculararea and bilateral iliac chains, enlarged spleen with hypodense areas, and new compression fractureat L4. 3. Escalated BEACOPP x 3, 09/2022 - 11/24/2022, discontinued secondary to severe infection following cycle 3 with septic shock and pneumonia requiring intubation. 4. The patient was lost to follow-up from hospital discharge 12/21/2022 until re-presented in April 2023. CT scan at that time showed extensive disease with multiple enlarged nodes, left pleural effusion, moderate pericardial effusion, and multiple lytic lesions in the iliac wings and L4 vertebral body. 5. Hospital admission 04/24/2023 - 05/05/2023, initially at [facility] and then transferred to [facility]. 6. Left inguinal lymph node biopsy, 04/27/2023, recurrent classical Hodgkin lymphoma. 7. PET-CT, 04/29/2023, FDG-avid cervical, supraclavicular, axillary, mediastinal, hilar, retrocrural, retroperitoneal, iliac and inguinal nodes, numerous FDG-avid foci throughout the axial and proximal appendicular skeleton including the spine, ribs, humeri, scapula and pelvis, destructive lesion with pathologic fracture of L4, hypermetabolic splenic lesions, FDG-avid consolidation in the right upper lobe (SUV 16.4). 8. MRI of the orbits and spine 04/29/2023, diffuse bone marrow replacing lesions involving the entire lumbar vertebrae with enhancement, most pronounced at C4- C5, T1 and T2, with suspicious hyperintensity in the spinal cord at the C4-C5 level with ventral epidural thickening at C5-C6. 9. Bronchoscopy, 04/30/2023, with biopsy of right upper lobe showing fragments of airway with acuteand chronic inflammation without evidence of malignancy, all cultures negative. 10. Pembro-GVD, initiated 05/04/2023, very good [place] post-C2 (5PS 4, residual uptake in a subcentimeter left axillary lymph node which is unchanged and SUV 4.0 in T11 transverse process, all other sites of disease completely resolved). INTERVAL HISTORY: Crystal returns to the [facility] for continued treatment of his refractory Hodgkin lymphoma. I last saw him on 06/02/2023. At that time, he received cycle 2 day 8 of pembro-GVD. His mother called my nurse on 06/08/2023 with a scrotal rash in pain and sent pictures that showed an erythematous rash in his scrotum. She also indicated that he was out of both his morphine and oxycodone despite having been given those given a 21-day supply 1 week prior. She stated he was in lots of pain . We recommended that he present to the emergency room, but he did not do that. He indicated that he had open sores on his scrotum and his high inner thighs. He has been using Vaseline on them. He continues to have lower back pain and indicates that he took all of his long- acting morphine and his oxycodone in 1 week instead of 3 weeks because we decreased his oxy dose from 15 to 10 mg and this was not adequate. He has not noted any fevers or new adenopathy and denies cough, shortness of breath, or night sweats. He has an excellent appetite. When I inquired about his continued use of illicit drugs, he indicated that he does take recreational drugs but was not specific about what he was taking. PHYSICAL EXAMINATION: General: Relatively well appearing young man, resting comfortably. He was less agitated than he normally seems. He was more engaged and not playing games on his phone while we were speaking. Vital Signs: Weight 68.3 kg which is stable. Blood pressure 129/77, pulse 92, temperature 36.4, O2 sat 100%. Lungs: Clear to auscultation. Nodes: He has no enlarged preauricular, submandibular, cervical, supraclavicular, infraclavicular, axillary, or inguinal lymph nodes. Abdomen: Active bowel sounds. No hepatosplenomegaly. Extremities: No edema. Skin: He has erythema of his scrotum and inner thighs, which is well demarcated. There are no open ulcers. LABORATORIES: WBC 1.7, ANC 0.5, hemoglobin 8.2, platelets 486, ANC 0.3. Chemistries within normal limits other than an alk phos of 191. ESR is 37. RADIOGRAPHS: PET-CT from today shows marked interval improvement in his hypermetabolic lymphadenopathy above andbelow the diaphragm as well as resolution of the right upper lobe consolidation, focal hypermetabolic splenic lesions, and hypermetabolic deposits in the right gluteal musculature. There is residual SUV of 4.0 in a left T11 transverse process and there is an unchanged subcentimeter left axillary node with an SUV of 6.4. IMPRESSION AND PLAN: 1. Primary refractory Hodgkin lymphoma. This 33-year-old gentleman has now completed 2 cycles of pembro-GVD and has had an excellent response based on an interim PET. There is still some mild residual uptake in the T11 transverse process and there is unchanged uptake in a subcentimeter left axillary lymph node with an SUV of 6.4. Otherwise, all of his extensive disease including his osseous lesions and other extranodal sites of disease as well as pete sites have completely resolved. I suspect the left axillary node is inflammatory as it would not make any sense that this tiny lymph node had not changed where his much bulkier disease had completely resolved. Uptake in the bones can be seen r elated to healing . I did not notice when he was in the office that his neutrophil count was 0.5, and we proceeded with cycle 3 day 1 of Pembro-GVD today. He will receive prophylactic Neulasta when he returns in 1 week for day 8. We are then planning on transferring his care to Dr. Lopez at the [place] office near the patient's home. I would recommend 6 full cycles of pembro-GVD and a repeat PET-CT following cycle 6. I will message Dr. Lopez so that they can get the approval for their office starting in 3 weeks. He is not a candidate for autologous stem cell transplant because of his active drug use as well as his social circumstances. He would not have any support for staying locally around the time of the transplant. If his social circumstances change, we can readdress this. My hope is that he will have a durable remission following his pembro-GVD. There should also be some consideration of maintenance pembrolizumab after completion of the pembro-GVD given his very poor prognosis and inability to and likely his inability to proceed with an autologous stem cell transplant. 2. Pain control. It is not clear to me why the patient is continuing to have so much pain. He describes it as being primarily in his right hip with sciatica. There is no evidence of disease on the PET scan in that area. I do not believe it is related to his Hodgkin lymphoma or his treatment and he has a history of drug abuse. We refilled his MS Contin 15 mg b.i.d (#42). and dispensed 45 tablets of oxycodone 10 mg to be taken twice a day as needed, which should be a 21-day supply of both. Of note, our dictation from 06/02/2023 was incorrect in that it said MS Contin 50 mg and should have said 15 mg. 3. Drug abuse. The patient continues to use illicit drugs. 4. Poor dentition. As I mentioned on his physical examination, he has multiple dental caries with many of his teeth decayed to the gum. He has no dental services. ELECTRONICALLY SIGNED - 06/20/2023 07:24 PM Shasta Sena M.D. cycle analyst [facility] Chair in Medical Oncology NB/ cc: CARLA LOPEZ MD [address] [place] [id number] / ROLLS OPERATOR documented in this encounter Plan of Treatment Not on file documented as of this encounter Results * TSH reflex to free T4 (06/16/2023 10:50 AM HOOP ROLLS OPERATOR) TSH 0.66 0.30 - 4.20 mcIUnit/mL [facility] Blood 06/16/2023 10:5 0 AM HOOP ROLLS OPERATOR 06/16/2023 11:16 AM HOOP ROLLS OPERATOR Shasta Sena MD LAB BLOOD ORDERABLES Final Result [facility] [place] [address] * (ABNORMAL) Erythrocyte sedimentation rate (06/16/2023 10:50 AM HOOP ROLLS OPERATOR) Pathologist [facility] Erythrocyte sedimentation rate 37(H) 1 - 15 mm/hr [facility] Blood 06/16/2023 10:5 0 AM HOOP ROLLS OPERATOR 06/16/2023 11:08 AM HOOP ROLLS OPERATOR Shasta Sena MD LAB BLOOD ORDERABLES Final Result Performing Organization Address [facility] de Phone Number [facility] [place] [address] * (ABNORMAL) Comprehensive metabolic panel (06/16/2023 10:50 AM HOOP ROLLS OPERATOR) [facility] Sodium 140 135 - 145 mmol/L [facility] Comment:Testing performed by : [facility], [address] [place] [phone] Potassium, pl 3.7 3.3 - 4.9 mmol/L [facility] Comment:Testing performed by : [facility], [address] [place] [phone] Chloride 105 97 - 110 mmol/L [facility] Comment:Testing performed by : [facility], [address] [place] [phone] CO2 26 22 - 32 mmol/L [facility] Comment:Testing performed by : [facility], [address] [place] [phone] Anion gap 9 2 - 15 mmol/L [facility] Comment:Testing performed by : [facility], [address] [place] [phone] BUN 11 6 - 25 mg/dL [facility] Comment:Testing performed by : [facility], [address] [place] [phone] Creatinine 0.65(L) 0.80 - 1.30 mg/dL [facility] Comment:Testing performed by : [facility], [address] [place] [phone] Glucose 91 70 - 199 mg/dL [facility] Comment: Interpretive Data Fasting glucose >/= 126 [...] classification and Diagnosis of Diabetes Diabetes Care 202; 46: S19-S40. Current interpretive data was last revised 2022. Testing performed by: [facility], [address] [place] [phone] Calcium 8.9 8.5 - 10.3 mg/dL [facility] Comment:Testing performed by : [facility], [address] [place] [phone] Bilirubin, total 0.4 0.1 - 1.2 mg/dL [facility] Comment:Testing performed by : [address] [phone] Protein, pl 6.9 6.5 - 8.5 g/dL [facility] Comment:Testing performed by : [address] [phone] Albumin 4.2 3.5 - 5.0 g/dL [facility] Comment:Testing performed by : [facility], [address] [place] [phone] Alk phos 191(H) 40 - 130 Units/L [facility] Comment:Testing performed by : [address] [phone] ALT 28 7 - 55 Units/L [facility] Comment:Testing performed by : [address] [phone] AST 20 10 - 50 Units/L [facility] Comment:Testing performed by : [facility], [address] [place] [phone] Blood 06/16/2023 10:5 0 AM HOOP ROLLS OPERATOR 06/16/2023 10:52 AM HOOP ROLLS OPERATOR us Shasta Sena MD LAB BLOOD ORDERABLES Final Result [facility] Department [place] [address] * (ABNORMAL) CBC with auto differential (06/16/2023 10:50 AM HOOP ROLLS OPERATOR) WBC 1.7(L) 3.8 - 9.8 K/cumm [facility] Comment:Testing performed by : [facility], [address] [place] [phone] Hgb 8.2(L) 13.8 - 17.2 g/dL [facility] Comment: Interpretive Data A reference range for this assay has not been established for patients with an unknown legal sex. Please refer to the laboratory test catalog for established sex-specific reference intervals. Current interpretive data was last revised on 2023. Testing performed by: [facility], [address] [place] [phone] Hct 24.4(L) 40.7 - 50.3 % [facility] Comment: Interpretive Data A reference range for this assay has not been established for patients with an unknown legal sex. Please refer to the laboratory test catalog for established sex-specific reference intervals. Current interpretive data was last revised on 2023. Testing performed by: [facility], [address] [place] [phone] Plt 486(H) 140 - 440 K/cumm [facility] Comment:Testing performed by : [facility], [address] [place] [phone] MPV 6.3(L) 6.8 - 10.4 fL [facility] Comment:Testing performed by : [address] [phone] RBC 3.24(L) 4.50 - 5.70 M/cumm [facility] Comment: Interpretive Data A reference range for this assay has not been established for patients with an unknown legal sex. Please refer to the laboratory test catalog for established sex-specific reference intervals. Current interpretive data was last revised on 2023. Testing performed by: [facility], [address] [place] [phone] MCV 75.3(L) 80.0 - 97.6 fL [facility] Comment:Testing performed by : [facility], [address] [place] [phone] MCH 25.4(L) 26.7 - 33.7 pg [facility] Comment:Testing performed by : [facility], [address] [place] [phone] MCHC 33.7 32.7 - 35.5 g/dL [facility] Comment:Testing performed by : [facility], [address] [place] [phone] RDW CV 24.1(H) 11.8 - 14.6 % [facility] Comment:Testing performed by : [facility], [address] [place] [phone] NRBC abs 0.01 0.00 - 0.01 K/cumm [facility] Comment:Testing performed by : [facility], [address] [place] [phone] Blood 06/16/2023 10:5 0 AM HOOP ROLLS OPERATOR 06/16/2023 10:52 AM HOOP ROLLS OPERATOR Shasta Sena MD LAB BLOOD ORDERABLES Final Result 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)- Primary Hodgkin lymphoma, unspecified Hodgkin lymphoma type, unspecified body region (HCC) Prevention of chemotherapy-induced neutropenia documented in this encounter Discontinued Medications Medication Sig Discontinue Reason Start Date End Da te lidocaine (ASPERCREME) 4 % adhesive patch,medicated Place 1 patch on the skin daily 05/06/2023 06/16/2023 polyethylene glycol (MIRALAX) 17 gram/dose bulk powderIndications:juan miguel bernal Take 17 g by mouth daily 05/05/2023 06/16/2023 senna-docusate (PERICOLACE) 8.6-50 mg Take 1 tablet by mouth 2 (two) times a day 05/05/2023 06/16/2023 nicotine (NICODERM CQ) [address] 1 patch on the skin daily 05/05/2023 06/16/2023 morphine ER (MS CONTIN) 15 mg 12 hr tablet Take 1 tablet (15 mg total) by mouth 2 (two) times a day for 21 days Reorder 05/26/2023 06/16/2023 oxyCODONE (ROXICODONE) 10 mg tabletIndications:Pain Take 1 tablet (10 mg total) by mouth every 6 (six) hours as needed for pain Reorder 05/26/2023 06/16/2023 documented as of this encounter Orders Appointment Requests Count Last Ordered Date Fi rst Ordered Date ONCBCN CLINIC APPOINTMENT REQUEST 1 023 documented in this encounter Care Teams Refrigerating Engineer Relationship Specialty Start Date End Date No, Physician PCP - General 05/06/23 Shasta Sena MD [address] [place] [id number] Medical Oncologist/Surgical Assistant Medical Oncology 05/05/23 documented as of this encounter
--- OUTSIDE RECORDS SUMMARY | 2024-06-25 06:53 | XMS_ITS | Encounter Summary ---
Author Organization [facility] Address [address] [place] [address] Phone Care Team Providers Care Wheel Truing Machine Tender Name Role Phone Shasta Sena MD Unavailable [phone] No, Physician Primary Care Provider [phone] Reason for Visit * Episode Based Medications (Routine) - Closed Specialty Diagnoses / Procedures Referred By Devora guzman Referred To Contact Oncology Diagnoses Hodgkin lymphoma, unspecified Hodgkin lymphoma type, unspecified body region (HCC) Prevention of chemotherapy-induced neutropenia [address] [address] Phone: tel: fax: [facility] Oncology [address] [place] [address] 7th [place] [address] Phone: tel: Referral ID Status Reason Start Date Expiration Date Visits Re quested Visits Authorized [id number] Closed 05/04/2023 07/21/2023 1 8 Encounter Details Date Type Department Care Team (Latest Contact Info) Description 05/26/2023 10:15 AM GAS TURBINE ASSEMBLER Clinical Support [facility] Oncology [address] [place] [address] [facility] 7th [place] [address] [place] [address] Hodgkin lymphoma, unspecified Hodgkin lymphoma type, unspecified [...] on file Legal Sex Male 10:05 AM GAS TURBINE ASSEMBLER Gender Identity Male 05/30/2023 9:41 PM GAS TURBINE ASSEMBLER Sexual Orientation Straight 05/30/2023 9: 41 PM GAS TURBINE ASSEMBLER documented as of this encounter Plan of Treatment Not on file documented as of this encounter Visit Diagnoses Diagnosis Hodgkin lymphoma, unspecified Hodgkin lymphoma type, unspecified body region (HCC) Prevention of chemotherapy-induced neutropenia documented in this encounter Orders Appointment Requests Count Last Ordered Date Fi rst Ordered Date ONCBCN LAB APPOINTMENT 1 05/26/2023 documented in this encounter Care Teams Wheel Truing Machine Tender Relationship Specialty Start Date End Date No, Physician PCP - General 05/06/23 Shasta Sena MD [address] [address] Medical Oncologist/Printed Circuit Board Assembly Repairer Medical Oncology 05/05/23 documented as of this encounter
--- OUTSIDE RECORDS SUMMARY | 2024-06-25 06:53 | XMS_ITS | Encounter Summary ---
Author Organization [facility] Healthcare Address [address] [place] [address] Care Team Providers Care Insurance Claims Specialist Name Role Phone Shasta Sena MD Unavailable [phone] No, Physician Primary Care Provider [phone] Encounter Details Date Type Department Care Team (Latest Contact Info) Description 06/02/2023 2:21 PM DIVISION HUMAN RESOURCES MANAGER - 06/02/2023 11:59 PM DIVISION HUMAN RESOURCES MANAGER Hospital Encounter [facility] ([facility]) [address] [place] [phone] Hodgkin lymphoma, unspecified Hodgkin lymphoma type, unspecified body region (HCC); Prevention of chemotherapy-induce d neutropenia; 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) Discharge Disposition: Discharge to home or self [...] on file Legal Sex Male 10:05 AM DIVISION HUMAN RESOURCES MANAGER Gender Identity Male 05/30/2023 9:41 PM DIVISION HUMAN RESOURCES MANAGER Sexual Orientation Straight 05/30/2023 9: 41 PM DIVISION HUMAN RESOURCES MANAGER documented as of this encounter Medications at [...] first for nausea 60 tablet 3 3 acyclovir (ZOVIRAX) 400 mg tabletIndication s:Prophylaxis, Medical Take 1 tablet (400 mg total) by mouth 2 (two) times a day 60 tablet 3 06/04/20 23 dexAMETHasone (DECADRON) 4 mg/mL injection Infuse 1 [...] 4 (four) hours as needed 3 06/21/20 lidocaine (ASPERCREME) 4 % adhesive patch,medicated Place 1 patch on the skin daily 30 patch 3 06/16/20 morphine ER (MS CONTIN) 15 mg 12 hr tablet Take 1 tablet (15 mg total) by mouth 2 (two) times a day for 21 days 42 tablet 3 06/16/20 naloxone (NARCAN) 4 mg/actuation spray,non-aeroso l Administer 1 spray into affected nostril(s) as needed for opioid reversal Call 911. Administer a single spray in one nostril. Repeat every 3 minutes as needed if no or minimal response. 1 each 3 06/21/20 nicotine (NICODERM CQ) [address] 1 patch on the skin daily 30 patch 3 06/16/20 oxyCODONE (ROXICODONE) 10 mg tabletIndication s:Pain Take 1 tablet (10 mg total) by mouth every 6 (six) hours as needed for pain 45 tablet 3 06/16/[address] (PROTONIX) 40 mg EC tabletIndication s:Stress Ulcer Prophylaxis Take 1 tablet (40 mg total) by mouth 2 (two) times a day 60 tablet 11 3 06/30/20 polyethylene glycol (MIRALAX) 17 gram/dose bulk powderIndication s:constipation Take 17 g by mouth daily 510 g 3 06/16/20 senna-docusate (PERICOLACE) 8.6-50 mg Take 1 tablet by mouth 2 (two) times a day 60 tablet 3 06/16/20 documented as of this encounter Discharge Disposition Disposition Code Departure Means Destination Discharge to home or self care documented in this encounter Plan of Treatment Not on file documented as of this encounter Procedures Procedure Name Priority Date/Time Associated Diagnosis Comments EGFR STAT 06/02/2023 9:40 AM DIVISION HUMAN RESOURCES MANAGER Hodgkin lymphoma, unspecified Hodgkin lymphoma type, unspecified body region (HCC) Prevention of chemotherapy-induce d neutropenia DIFFERENTIAL AUTO STAT 06/02/2023 9:4 0 AM DIVISION HUMAN RESOURCES MANAGER Hodgkin lymphoma, unspecified Hodgkin lymphoma type, unspecified body region (HCC) Prevention of chemotherapy-induce d neutropenia CBC WITH AUTO DIFFERENTIAL STAT 06/02/2023 9:40 AM DIVISION HUMAN RESOURCES MANAGER Hodgkin lymphoma, unspecified Hodgkin lymphoma type, unspecified body region (HCC) Prevention of chemotherapy-induce d neutropenia ERYTHROCYTE SEDIMENTATION RATE Routine 06/02/2023 9:40 AM DIVISION HUMAN RESOURCES MANAGER 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 73 m2 MICHAELA SANABRIA Comment: Interpretive Data Reference Interval Normal ?>/= [...] was last reviewed 2021. Testing performed by: [facility], [address] [place] [phone] Blood 06/02/2023 9:40 AM DIVISION HUMAN RESOURCES MANAGER 06/02/2023 9:43 AM DIVISION HUMAN RESOURCES MANAGER us Shasta Sena MD LAB BLOOD ORDERABLES Final Result MICHAELA [facility]NA[facility] [place] [address] * (ABNORMAL) Differential, auto (06/02/2023 9:40 AM DIVISION HUMAN RESOURCES MANAGER) Neutrophil abs 3.4 1.8 - 6.6 K/cumm MICHAELA SANABRIA Comment:Testing performed by : [facility], [address] [place] [phone] Lymphocyte abs 0.3(L) 1.2 - 3.3 K/cumm MICHAELA SANABRIA Comment:Testing performed by : [facility], [address] [place] [phone] Monocyte abs 0.3 0.2 - 1.2 K/cumm MICHAELA SANABRIA Comment:Testing performed by : [facility], [address] [place] [phone] Eosinophil abs 0.1 0.0 - 0.5 K/cumm MICHAELA SANABRIA Comment:Testing performed by : [address] [phone] Basophil abs 0.0 0.0 - 0.2 K/cumm [facility]A [facility] Comment:Testing performed by : [address] [phone] Neutrophil pct 82.1 % MICHAELA SANABRIA Comment: Interpretive Data Percent cell count reference ranges are not reported, since discordance with absolute values may lead to misinterpretation of CBC data. Current Interpretive Data was last revised on 2017. Testing performed by: [facility], [address] [place] [phone] Lymphocyte pct 8.0 % MICHAELA SANABRIA Comment: Interpretive Data Percent cell count reference ranges are not reported, since discordance with absolute values may lead to misinterpretation of CBC data. Current Interpretive Data was last revised on 2017. Testing performed by: [facility], [address] [place] [phone] Monocyte pct 7.6 % MICHAELA SANABRIA Comment:Testing performed by : [facility], [address] [place] [phone] Eosinophil pct 1.2 % MICHAELA SANABRIA Comment:Testing performed by : [facility], [address] [place] [phone] Basophil pct 1.1 % MICHAELA SANABRIA Comment:Testing performed by : [facility], [address] [place] [phone] Blood 06/02/2023 9:40 AM DIVISION HUMAN RESOURCES MANAGER 06/02/2023 9:43 AM DIVISION HUMAN RESOURCES MANAGER Shasta Sena MD LAB BLOOD ORDERABLES Final Result Performing Organization Address [facility] Co de Phone Number [facility] [place] [address] * (ABNORMAL) Erythrocyte sedimentation rate (06/02/2023 9:40 AM DIVISION HUMAN RESOURCES MANAGER) Erythrocyte sedimentation rate 25(H) 1 - 15 mm/hr MIC[facility]ELA [facility] Blood 06/02/2023 9:40 AM DIVISION HUMAN RESOURCES MANAGER 06/02/2023 10:05 AM DIVISION HUMAN RESOURCES MANAGER Shasta Sena MD LAB BLOOD ORDERABLES Final Result Performing Organization Address City/[facility]/ZIP Co de Phone Number [facility] [place] [address] * (ABNORMAL) CBC with auto differential (06/02/2023 9:40 AM DIVISION HUMAN RESOURCES MANAGER) [facility] WBC 4.2 3.8 - 9.8 K/cumm [facility] Comment:Testing performed by : [facility], [address] [place] [phone] Hgb 9.1(L) 13.8 - 17.2 g/dL [facility] Comment: Interpretive Data A reference range for this assay has not been established for patients with an unknown legal sex. Please refer to the laboratory test catalog for established sex-specific reference intervals. Current interpretive data was last revised on 2023. Testing performed by: [address] [phone] Hct 27.2(L) 40.7 - 50.3 % [facility] Comment: Interpretive Data A reference range for this assay has not been established for patients with an unknown legal sex. Please refer to the laboratory test catalog for established sex-specific reference intervals. Current interpretive data was last revised on 2023. Testing performed by: [facility], [address] [place] [phone] Plt 234 140 - 440 K/cumm [facility] Comment:Testing performed by : [address] [phone] MPV 6.4(L) 6.8 - 10.4 fL [facility] Comment:Testing performed by : [address] [phone] RBC 3.60(L) 4.50 - 5.70 M/cumm [facility] Comment: Interpretive Data A reference range for this assay has not been established for patients with an unknown legal sex. Please refer to the laboratory test catalog for established sex-specific reference intervals. Current interpretive data was last revised on 2023. Testing performed by: [address] [phone] MCV 75.7(L) 80.0 - 97.6 fL [facility] Comment:Testing performed by : [address] [phone] MCH 25.3(L) 26.7 - 33.7 pg MICHAELA SANABRIA Comment:Testing performed by : [facility], [address] [place] [phone] MCHC 33.4 32.7 - 35.5 g/dL MICHAELA SANABRIA Comment:Testing performed by : [facility], [address] [place] [phone] RDW CV 25.4(H) 11.8 - 14.6 % MICHAELA SANABRIA Comment:Testing performed by : [facility], [address] [place] [phone] NRBC abs 0.01 0.00 - 0.01 K/cumm MICHAELA SANABRIA Comment:Testing performed by : [facility], [address] [place] [phone] Blood 06/02/2023 9:40 AM DIVISION HUMAN RESOURCES MANAGER 06/02/2023 9:43 AM DIVISION HUMAN RESOURCES MANAGER us Shasta Sena MD LAB BLOOD ORDERABLES Final Result MICHAELA [facility] Department [place] [address] * (ABNORMAL) Comprehensive metabolic panel (06/02/2023 9:40 AM DIVISION HUMAN RESOURCES MANAGER) Sodium 135 135 - 145 mmol/L MICHAELA SANABRIA Comment:Testing performed by : [facility], [address] [place] [phone] Potassium, pl 3.4 3.3 - 4.9 mmol/L MICHAELA SANABRIA Comment:Testing performed by : [facility], [address] [place] [phone] Chloride 96(L) 97 - 110 mmol/L MICHAELA SANABRIA Comment:Testing performed by : [facility], [address] [place] [phone] CO2 30 22 - 32 mmol/L MICHAELA SANABRIA Comment:Testing performed by : [facility], [address] [place] [phone] Anion gap 9 2 - 15 mmol/L MICHAELA SANABRIA Comment:Testing performed by : [facility], [address] [place] [phone] BUN 21 6 - 25 mg/dL [facility] Comment:Testing performed by : [facility], [address] [place] [phone] Creatinine 0.65(L) 0.80 - 1.30 mg/dL CERNER [facility] Comment:Testing performed by : [facility], [address] [place] [phone] Glucose 123 70 - 199 mg/dL [facility]ER [facility] Comment: Interpretive Data Fasting glucose >/= 126 [...] was last revised 2022. Testing performed by: [facility], [address] [place] [phone] Calcium 9.4 8.5 - 10.3 mg/dL [facility] Comment:Testing performed by : [facility], [address] [place] [phone] Bilirubin, total 0.5 0.1 - 1.2 mg/dL CERNER [facility] Comment:Testing performed by : [facility], [address] [place] [phone] Protein, pl 7.6 6.5 - 8.5 g/dL [facility] Comment:Testing performed by : [facility], [address] [place] [phone] Albumin 4.5 3.5 - 5.0 g/dL [facility] Comment:Testing performed by : [facility], [address] [place] [phone] Alk phos 217(H) 40 - 130 Units/L [facility] Comment:Testing performed by : [facility], [address] [place] [phone] ALT 56(H) 7 - 55 Units/L MICHAELA SANABRIA Comment:Testing performed by : [facility], [address] [place] [phone] AST 29 10 - 50 Units/L MICHAELA SANABRIA Comment:Testing performed by : [facility], [address] [place] [phone] Blood 06/02/2023 9:40 AM DIVISION HUMAN RESOURCES MANAGER 06/02/2023 9:43 AM DIVISION HUMAN RESOURCES MANAGER us Shasta Sena MD LAB BLOOD ORDERABLES Final Result MICHAELA [facility] [place] [address] documented in this encounter Visit Diagnoses Diagnosis Hodgkin lymphoma, unspecified Hodgkin lymphoma type, unspecified body region (HCC) Prevention of chemotherapy-induced neutropenia 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
--- OUTSIDE RECORDS SUMMARY | 2024-06-25 06:53 | XMS_ITS | Encounter Summary ---
Author Organization [facility] Healthcare Address [address] [place] [address] Care Team Providers Care Hearing Instrument Specialist Name Role Phone Shasta Sena MD Unavailable [phone] No, Physician Primary Care Provider [phone] Encounter Details Date Type Department Care Team (Latest Contact Info) Description 10/15/2023 7:11 AM CDT - 10/15/2023 11:59 PM CDT Hospital Encounter [facility] [address] [place] [id number] Discharge Disposition: Discharge to home or self [...] on file Legal Sex Male 10:05 AM TITLE I INSTRUCTIONAL ASSISTANT Gender Identity Male 05/30/2023 9:41 PM TITLE I INSTRUCTIONAL ASSISTANT Sexual Orientation Straight 05/30/2023 9: 41 PM TITLE I INSTRUCTIONAL ASSISTANT documented as of this encounter Medications at [...] by mouth daily 30 capsule 11 3 gabapentin (NEURONTIN) 600 mg tablet Take 1 tablet (600 mg total) by mouth 3 (three) times a day 90 tablet 11 3 06/29/20 24 HYDROcodone-acet aminophen (NORCO) 10-325 mg per tablet Take 1 tablet by mouth every 8 (eight) hours as needed for pain 60 tablet 3 naproxen (NAPROSYN) 500 mg tablet Take [...] not stop nausea 24 tablet [address] (PROTONIX) 40 mg EC tabletIndication s:Stress Ulcer Prophylaxis Take 1 tablet (40 mg total) by mouth 2 (two) times a day 60 tablet 11 3 06/29/20 24 prochlorperazine (Compazine) 10 mg tabletIndication s:Hodgkin lymphoma, [...] rash in groin 453 g 1 3 documented as of this encounter Discharge Disposition Disposition Code Departure Means Destination Discharge to home or self care documented in this encounter Plan of Treatment Not on file documented as of this encounter Procedures Procedure Name Priority Date/Time Associated Diagnosis Comments PET OUTSIDE REFERENCE Routine 10/15/2023 7:11 AM CDT documented in this encounter Results * PET Outside Reference (10/15/2023 7:11 AM CDT) Impressions [facility] - 10/15/2023 7:11 AM CDT These images are for Reference purposes only and have not been reviewed by [facility] Radiology. ??There will be no report generated by a [facility] Radiologist. Narrative [facility] - 10/15/2023 7:11 AM CDT EXAMINATION: ??Images For Reference Purposes Only us Shasta Sena MD IMG PET PROCEDURES Final R esult [facility] documented in this encounter Visit Diagnoses Not on filedocumented in this encounter Care Teams Hearing Instrument Specialist Relationship Specialty Start Date End Date No, Physician PCP - General 05/06/23 Shasta Sena MD [address] [facility] [address] [place] [address] Medical Oncologist/Diving Judge Medical Oncology 05/05/23 documented as of this encounter
--- OUTSIDE RECORDS SUMMARY | 2024-06-25 06:53 | XMS_ITS | Encounter Summary ---
Author Organization [facility] Address [address] [place] [address] Phone Care Team Providers Care Construction Project Assistant Name Role Phone Shasta Sena MD Unavailable [phone] No, Physician Primary Care Provider [phone] Encounter Details Date Type Department Care Team (Latest Contact Info) Description 05/18/2023 Orders Only [facility] Scanning, Provider [...] on file Legal Sex Male 10:05 AM ALL ROUND BUTCHER Gender Identity Male 05/30/2023 9:41 PM ALL ROUND BUTCHER Sexual Orientation Straight 05/30/2023 9: 41 PM ALL ROUND BUTCHER documented as of this encounter Plan of Treatment Not on file documented as of this encounter Procedures Procedure Name Priority Date/Time Associated Diagnosis Comments SCAN - LABS 05/18/2023 documented in this encounter Results * SCAN - LABS (05/18/2023) us Provider Scanning Final Result documented in this encounter Visit Diagnoses Not on filedocumented in this encounter Care Teams Construction Project Assistant Relationship Specialty Start Date End Date No, Physician PCP - General 05/06/23 Shasta Sena MD [address] [facility] [address] [place] [address] Medical Oncologist/Soiled Linen Distributor Medical Oncology 05/05/23 documented as of this encounter
--- OUTSIDE RECORDS SUMMARY | 2024-06-25 06:53 | XMS_ITS | Encounter Summary ---
Author Organization [facility] Address [address] [place] [address] Phone Care Team Providers Care Account Services Manager Name Role Phone Shasta Sena MD Unavailable [phone] No, Physician Primary Care Provider [phone] Reason for Visit * Episode Based Medications (Routine) - Closed Specialty Diagnoses / Procedures Referred By Devora guzman Referred To Contact Oncology Diagnoses Hodgkin lymphoma, unspecified Hodgkin lymphoma type, unspecified body region (HCC) Prevention of chemotherapy-induced neutropenia [address] [address] Phone: tel: fax: [facility] [address] [place] [address] 7th [place] [address] Phone: tel: Referral ID Status Reason Start Date Expiration Date Visits Re quested Visits Authorized [id number] Closed 05/04/2023 07/21/2023 1 8 Encounter Details Date Type Department Care Team (Latest Contact Info) Description 06/30/2023 9:00 AM CASING MAN Clinical Support [facility] [address] [place] [address] [facility] 7th [place] [address] [place] [address] Hodgkin lymphoma, unspecified Hodgkin lymphoma [...] on file Legal Sex Male 10:05 AM CASING MAN Gender Identity Male 05/30/2023 9:41 PM CASING MAN Sexual Orientation Straight 05/30/2023 9: 41 PM CASING MAN documented as of this encounter Plan of Treatment Not on file documented as of this encounter Visit Diagnoses Diagnosis Hodgkin lymphoma, unspecified Hodgkin lymphoma type, unspecified body region (HCC) Prevention of chemotherapy-induced neutropenia documented in this encounter Orders Appointment Requests Count Last Ordered Date Fi rst Ordered Date ONCBCN LAB APPOINTMENT 1 06/30/2023 documented in this encounter Care Teams Account Services Manager Relationship Specialty Start Date End Date No, Physician PCP - General 05/06/23 Shasta Sena MD [address] [address] Medical Oncologist/Metal Casting Trades Worker Medical Oncology 05/05/23 documented as of this encounter
--- OUTSIDE RECORDS SUMMARY | 2024-06-25 06:53 | XMS_ITS | Encounter Summary ---
Author Organization [facility] Address [address] [place] [address] Care Team Providers Care Textile Bag Sewer Name Role Phone Shasta Sena MD Unavailable [phone] No, Physician Primary Care Provider [phone] Encounter Details Date Type Department Care Team (Latest Contact Info) Description 06/30/2023 10:57 AM SPINNING BATH PERSON - 06/30/2023 11:59 PM SPINNING BATH PERSON Hospital Encounter [facility] Advanced Medicine ([facility]) [facility] [place] [address] Hodgkin lymphoma, unspecified Hodgkin lymphoma type, unspecified [...] on file Legal Sex Male 10:05 AM SPINNING BATH PERSON Gender Identity Male 05/30/2023 9:41 PM SPINNING BATH PERSON Sexual Orientation Straight 05/30/2023 9: 41 PM SPINNING BATH PERSON documented as of this encounter Medications at [...] as needed for pain 60 tablet 3 morphine ER (MS CONTIN) 15 mg 12 hr tablet Take 1 tablet (15 mg total) by mouth 2 (two) times a day for 21 days 42 tablet 3 naproxen (NAPROSYN) 500 mg tablet [...] Priority Date/Time Associated Diagnosis Comments EGFR STAT 06/30/2023 11:10 AM SPINNING BATH PERSON Hodgkin lymphoma, unspecified Hodgkin lymphoma type, unspecified body region (HCC) Prevention of chemotherapy-induce d neutropenia DIFFERENTIAL AUTO STAT 06/30/2023 11: 10 AM SPINNING BATH PERSON Hodgkin lymphoma, unspecified Hodgkin lymphoma type, unspecified body region (HCC) Prevention of chemotherapy-induce d neutropenia CBC WITH AUTO DIFFERENTIAL STAT 06/30/2023 11:10 AM SPINNING BATH PERSON Hodgkin lymphoma, unspecified Hodgkin lymphoma type, unspecified body region (HCC) Prevention of chemotherapy-induce d neutropenia COMPREHENSIVE METABOLIC PANEL STAT 06/30/2023 11:10 AM SPINNING BATH PERSON Hodgkin lymphoma, unspecified Hodgkin lymphoma type, unspecified body region (HCC) Prevention of chemotherapy-induce d neutropenia ERYTHROCYTE SEDIMENTATION RATE Routine 06/30/2023 10:43 AM SPINNING BATH PERSON 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 73 m2 MICHAELA [...] was last reviewed 2021. Testing performed by: [facility], [address] [place] [phone] Blood 06/30/2023 11:1 0 AM SPINNING BATH PERSON 06/30/2023 11:15 AM SPINNING BATH PERSON us Shasta Sena MD LAB BLOOD ORDERABLES Final Result Performing Organization Address City/State/[facility] Co de Phone Number [facility] Department [place] [address] * (ABNORMAL) Differential, auto (06/30/2023 11:10 AM SPINNING BATH PERSON) Neutrophil abs 5.0 1.5 - 6.6 K/cumm MICHAELA SANABRIA Comment:Testing performed by : [facility], [address] [place] [phone] Lymphocyte abs 0.6(L) 1.2 - 3.3 K/cumm MICHAELA SANABRIA Comment:Testing performed by : [facility], [address] [place] [phone] Monocyte abs 1.2 0.2 - 1.2 K/cumm MICHAELA SANABRIA Comment:Testing performed by : [facility], [address] [place] [phone] Eosinophil abs 0.0 0.0 - 0.5 K/cumm CERNER BJ Comment:Testing performed by : [facility], [address] [place] [phone] Basophil abs 0.0 0.0 - 0.2 K/cumm CERNER BJ Comment:Testing performed by : [facility], [address] [place] [phone] Neutrophil pct 72.7 % CERNER BJ Comment: Interpretive Data Percent cell count reference ranges are not reported, since discordance with absolute values may lead to misinterpretation of CBC data. Current Interpretive Data was last revised on 2017. Testing performed by: [facility], [address] [place] [phone] Lymphocyte pct 8.4 % CERNER BJ Comment: Interpretive Data Percent cell count reference ranges are not reported, since discordance with absolute values may lead to misinterpretation of CBC data. Current Interpretive Data was last revised on 2017. Testing performed by: [facility], [address] [place] [phone] Monocyte pct 17.9 % CERNER BJ Comment:Testing performed by : [facility], [address] [place] [phone] Eosinophil pct 0.5 % CERNER BJ Comment:Testing performed by : [facility], [address] [place] [phone] Basophil pct 0.5 % CERNER BJ Comment:Testing performed by : [facility], [address] [place] [phone] Blood 06/30/2023 11:1 0 AM SPINNING BATH PERSON 06/30/2023 11:15 AM SPINNING BATH PERSON us Shasta Sena MD LAB BLOOD ORDERABLES Final Result MICHAELA SANABRIA [facility] Department [place] [address] * (ABNORMAL) CBC with auto differential (06/30/2023 11:10 AM SPINNING BATH PERSON) WBC 6.9 3.8 - 9.8 K/cumm CERNER BJ Comment:Testing performed by : [facility], [address] [place] [address] Hgb 10.3(L) 13.8 - 17.2 g/dL CERNER BJ Comment:Testing performed by : [facility], [address] [place] [address] Hct 31.4(L) 40.7 - 50.3 % CERNER BJ Comment:Testing performed by : [facility], [address] [place] [address] Plt 258 140 - 440 K/cumm CERNER BJ Comment:Testing performed by : [place] [address] MPV 7.4 6.8 - 10.4 fL CERNER BJ Comment:Testing performed by : [place] [address] RBC 4.12(L) 4.50 - 5.70 M/cumm CERNER BJ Comment:Testing performed by : [place] [address] MCV 76.2(L) 80.0 - 97.6 fL CERNER BJ Comment:Testing performed by : [place] [address] MCH 25.0(L) 26.7 - 33.7 pg CERNER BJ Comment:Testing performed by : [place] [address] MCHC 32.8 32.7 - 35.5 g/dL CERNER BJ Comment:Testing performed by : [place] [address] RDW CV 22.6(H) 11.8 - 14.6 % CERNER BJ Comment:Testing performed by : [place] [address] NRBC abs 0.00 0.00 - 0.01 K/cumm CERNER BJ Comment:Testing performed by : [facility], [address], [place] [address] Blood 06/30/2023 11:1 0 AM SPINNING BATH PERSON 06/30/2023 11:15 AM SPINNING BATH PERSON us Shasta Sena MD LAB BLOOD ORDERABLES Final Result [facility] Department [place] [address] * (ABNORMAL) Comprehensive metabolic panel (06/30/2023 11:10 AM SPINNING BATH PERSON) Sodium 138 135 - 145 mmol/L [facility] Comment:Testing performed by : [facility], [address] [place] [phone] Potassium, pl 3.6 3.3 - 4.9 mmol/L [facility] Comment:Testing performed by : [facility], [address] [place] [phone] Chloride 102 97 - 110 mmol/L [facility] Comment:Testing performed by : [facility], [address] [place] [phone] CO2 28 22 - 32 mmol/L [facility] Comment:Testing performed by : [facility], [address] [place] [phone] Anion gap 9 2 - 15 mmol/L [facility] Comment:Testing performed by : [address] [phone] BUN 16 6 - 25 mg/dL [facility] Comment:Testing performed by : [facility], [address] [place] [phone] Creatinine 0.62(L) 0.80 - 1.30 mg/dL [facility] Comment:Testing performed by : [address] [phone] Glucose 97 70 - 199 mg/dL [facility] Comment: Interpretive Data Fasting glucose >/= 126 [...] was last revised 2022. Testing performed by: [facility], [address] [place] [phone] Calcium 9.2 8.5 - 10.3 mg/dL [facility] Comment:Testing performed by : [facility], [address] [place] [phone] Bilirubin, total 0.4 0.1 - 1.2 mg/dL [facility] Comment:Testing performed by : [facility], [address] [place] [phone] Protein, pl 6.9 6.5 - 8.5 g/dL [facility] Comment:Testing performed by : [address] [phone] Albumin 4.3 3.5 - 5.0 g/dL [facility] Comment:Testing performed by : [facility], [address] [place] [phone] Alk phos 136(H) 40 - 130 Units/L [facility] Comment:Testing performed by : [address] [phone] ALT 12 7 - 55 Units/L [facility] Comment:Testing performed by : [address] [phone] AST 16 10 - 50 Units/L [facility] Comment:Testing performed by : [facility], [address] [place] [phone] Blood 06/30/2023 11:1 0 AM SPINNING BATH PERSON 06/30/2023 11:14 AM SPINNING BATH PERSON us Shasta Sena MD LAB BLOOD ORDERABLES Final Result [facility] Department [place] [address] * Erythrocyte sedimentation rate (06/30/2023 10:43 AM SPINNING BATH PERSON) Erythrocyte sedimentation rate 12 1 - 15 mm/hr MICHAELA SANABRIA Blood 06/30/2023 10:4 3 AM SPINNING BATH PERSON 06/30/2023 11:43 AM SPINNING BATH PERSON Shasta Sena MD LAB BLOOD ORDERABLES Final Result [facility] Department [place] [address] documented in this encounter Visit Diagnoses Diagnosis Hodgkin lymphoma, unspecified Hodgkin lymphoma type, unspecified body region (HCC) Prevention of chemotherapy-induced neutropenia 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
--- OUTSIDE RECORDS SUMMARY | 2024-06-25 06:53 | XMS_ITS | Encounter Summary ---
Author Organization [facility] Address [address] [place] [address] Phone Care Team Providers Care Hvac Sheet Metal Installer Name Role Phone Shasta Sena MD Unavailable [phone] No, Physician Primary Care Provider [phone] Reason for Visit * Episode Based Medications (Routine) - Closed Specialty Diagnoses / Procedures Referred By Devora guzman Referred To Contact Oncology Diagnoses Hodgkin lymphoma, unspecified Hodgkin lymphoma type, unspecified body region (HCC) Prevention of chemotherapy-induced neutropenia [address] [address] Phone: tel: fax: [facility] Oncology [address] [place] [address] 7th [place] [address] Phone: tel: Referral ID Status Reason Start Date Expiration Date Visits Re quested Visits Authorized [id number] Closed 05/04/2023 07/21/2023 1 8 Encounter Details Date Type Department Care Team (Latest Contact Info) Description 05/13/2023 12:00 PM COVER CUTTER MACHINE Clinical Support [facility] Oncology [address] [place] [address] [facility] 7th [place] [address] [place] [address] Hodgkin lymphoma, unspecified Hodgkin lymphoma [...] on file Legal Sex Male 10:05 AM COVER CUTTER MACHINE Gender Identity Male 05/30/2023 9:41 PM COVER CUTTER MACHINE Sexual Orientation Straight 05/30/2023 9: 41 PM COVER CUTTER MACHINE documented as of this encounter Plan of Treatment Not on file documented as of this encounter Visit Diagnoses Diagnosis Hodgkin lymphoma, unspecified Hodgkin lymphoma type, unspecified body region (HCC) Prevention of chemotherapy-induced neutropenia documented in this encounter Orders Appointment Requests Count Last Ordered Date Fi rst Ordered Date ONCBCN LAB APPOINTMENT 1 05/13/2023 documented in this encounter Care Teams Hvac Sheet Metal Installer Relationship Specialty Start Date End Date No, Physician PCP - General 05/06/23 Shasta Sena MD [address] [address] Medical Oncologist/Child Nutrition Director Medical Oncology 05/05/23 documented as of this encounter
--- OUTSIDE RECORDS SUMMARY | 2024-06-25 06:53 | XMS_ITS | Encounter Summary ---
Author Organization [facility] Address [address] [place] [address] Phone Care Team Providers Care Title I Teacher Name Role Phone Shasta Sena MD Unavailable [phone] No, Physician Primary Care Provider [phone] Encounter Details Date Type Department Care Team (Late st Contact Info) Description 06/09/2023 Telephone [facility] Ophthalmology [address] [place], [place] [id number] Isaura Murphy MD [address] [facility] [id number] [place], [place] [id number] Social History Tobacco Use Types Packs/Day Years [...] on file Legal Sex Male 10:05 AM ORCHARD PRUNER Gender Identity Male 05/30/2023 9:41 PM ORCHARD PRUNER Sexual Orientation Straight 05/30/2023 9: 41 PM ORCHARD PRUNER documented as of this encounter Miscellaneous Notes * Telephone Encounter - Danica Santos - 06/09/2023 2:53 PM CST Pt's mom/Blanche called to r/s appt due to pt not well. Call [phone] for any questions. ARD PRUNER documented in this encounter Plan of Treatment Not on file documented as of this encounter Visit Diagnoses Not on filedocumented in this encounter Care Teams Title I Teacher Relationship Specialty Start Date End Date No, Physician PCP - General 05/06/23 Shasta Sena MD [address] [facility] [address] [place] [address] Medical Oncologist/Heel Finisher Medical Oncology 05/05/23 documented as of this encounter
--- OUTSIDE RECORDS SUMMARY | 2024-06-25 06:53 | XMS_ITS | Encounter Summary ---
Author Organization [facility] Address [address] [place] [address] Phone Care Team Providers Care Voice Systems Engineer Name Role Phone Shasta Sena MD Unavailable [phone] No, Physician Primary Care Provider [phone] Reason for Visit * Episode Based Medications (Routine) - Closed Specialty Diagnoses / Procedures Referred By Devora guzman Referred To Contact Oncology Diagnoses Hodgkin lymphoma, unspecified Hodgkin lymphoma type, unspecified body region (HCC) Prevention of chemotherapy-induced neutropenia [address] [address] Phone: tel: fax: [facility] Oncology [address] [place] [address] 7th [place] [address] Phone: tel: Referral ID Status Reason Start Date Expiration Date Visits Re quested Visits Authorized [id number] Closed 05/04/2023 07/21/2023 1 8 Encounter Details Date Type Department Care Team (Latest Contact Info) Description 06/02/2023 10:15 AM FUEL SYSTEM MAINTENANCE SUPERVISOR Clinical Support [facility] Oncology [address] [place] [address] [facility] 7th [place] [address] [place] [address] Hodgkin lymphoma, unspecified Hodgkin lymphoma [...] on file Legal Sex Male 10:05 AM FUEL SYSTEM MAINTENANCE SUPERVISOR Gender Identity Male 05/30/2023 9:41 PM FUEL SYSTEM MAINTENANCE SUPERVISOR Sexual Orientation Straight 05/30/2023 9: 41 PM FUEL SYSTEM MAINTENANCE SUPERVISOR documented as of this encounter Plan of Treatment Not on file documented as of this encounter Visit Diagnoses Diagnosis Hodgkin lymphoma, unspecified Hodgkin lymphoma type, unspecified body region (HCC) Prevention of chemotherapy-induced neutropenia documented in this encounter Orders Appointment Requests Count Last Ordered Date Fi rst Ordered Date ONCBCN LAB APPOINTMENT 1 06/02/2023 documented in this encounter Care Teams Voice Systems Engineer Relationship Specialty Start Date End Date No, Physician PCP - General 05/06/23 Shasta Sena MD [address] [address] Medical Oncologist/Manager Support Services Medical Oncology 05/05/23 documented as of this encounter
--- OUTSIDE RECORDS SUMMARY | 2024-06-25 06:53 | XMS_ITS ---
Author Organization [facility] Address [address] [place] [address] Care Team Providers Care Device Test Engineer Name Role Phone Shasta Sena MD Unavailable [phone] No, Physician Primary Care Provider [phone] Active Problems Problem Noted Date Diagnosed Date Prevention of chemotherapy-induced neutropenia 1 Lesion of right lung 04/30/2023 Assessment & Plan (05/04/2023 8:49 PM CDT): Patient's PET scan notable for hypermetabolic consolidation of the left lung concerning for metastatic disease versus infection. - Interventional Pulm consulted for biopsy, s/p lung bx (04/30) - Pathology w/ acute and chronic inflammation, no e/o malignancy. CX neg for infection. Assessment & Plan (04/30/2023 5:31 PM CDT): RUL consolidation/mass seen on CT CAP 04/26/23, which also showed hypoattenuating splenic lesions. Concern for progression of lymphoma vs fungal infection. Other imaging (MRI brain, Cspine) showing osseous metastatic disease and spinal canal stenosis at C3-C5 and L4; no brain metastases. Patient is on broad-spectrum antibiotics and steroids but not empiric antifungal coverage at this time as suspicion for malignancy is higher than infection. - Patient is s/p bronchoscopy today with TBNA and cold forceps biopsy of RUL mass, TBNA and routine, fungal, and AFB cultures of 11R lymph node, and BAL of the RUL for routine, fungal, and AFB cultures - Follow up cultures, pathology, cytology Recurrent knee pain 04/29/2023 Assessment & Plan (05/02/2023 12:10 PM CDT): Patient w/ acute on chronic R knee pain, had sports injury many years ago, currently flaring. - X-ray R knee reassuring - Steroids being prescribed for HL Hodgkin lymphoma 04/28/2023 Assessment & Plan (05/05/2023 9:08 PM CDT): Diagnosed with 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 Ashford, [place], [place]. S/p ABVD (2 cycles) with progression then BEACOPP (almost 3 cycles, stopped after cycle 3, day 8 due to neutropenic fever). Lost to follow-up after 11/2022. Now with diffuse progression of disease on CT C/A/P W/ Con. Assessment: - Alk Phos 245, P/A 5.8/2.3, CMP/Mg/Phos otherwise wnl - CBC w/ WBC 14.3, Hgb 7.1, Plt 486 - PT/INR 1.35/15.4, aPTT 36 - BCx/Fungal Cx pending - Vanc level 11.6 - ESR 83 - PET-CT w/ extensive lymphadenopathy, hypermetabolic consolidation in jaylene - MRI brain, spine w/ extensive disease - R inguinal lymph node biopsy 04/27 at OSH w/ classic Hodgkin Plan: - Discussed with Dr. Sena and Medical Oncology - S/P Dex 10 mg x1 followed by 4 mg - S/p C1 Pembro-GVD on 05/04 - Pain control: morphine ER 45 mg BID, oxy 15 mg q4h PRN for breakthrough, gabapentin to 600 mg TID, duloxetine 60 mg daily, and lidocaine patch Pneumonia 04/28/2023 Assessment & Plan (05/04/2023 8:50 PM CDT): Reported fever to 102 at OSH 04/27 with chest imaging c/f RUL PNA, possibly fungal. Started on IV vanc+pip-tazo+azithro at OSH (04/27-04/28), per OSH lab cultures were not drawn. On room air, no dyspnea. Will treat as hospital-acquired PNA with a possible post-obstructive component requiring anaerobic coverage. Possibly fungal infection given CT C/A/P 04/26 with nodularities in left lung and spleen as well possibly c/f fungal infection. - Blood cx x2 neg - CXR: Right upper lobe airspace opacity which is likely an infectious pneumonia - Histo, Blasto, Crypto, Coccidio, Aspergillus, mold culture neg - Called ID given question of need for empiric antifungal coverage: not needed at this time - S/p azithro (04/28-04/30) - On vanc (04/28- ), cefe (04/28- ), flagyl (04/28- ), dc today as pt completed 7 days of abx, discussed w. ID. Double vision 04/28/2023 Assessment & Plan (05/04/2023 8:45 PM CDT): With bMRI showing indeterminant mild diffuse dural enhancement. Assessment: - Visual wells intact, EOMI - MRI brain with orbits W con w/o explanatory lesion, although motion artifact limited Plan: - Rx of lymphoma as per elsewhere - Per ID, no need for empiric meningitic coverage - Ophthalmology consulted Cervical spine disease 04/28/2023 Assessment & Plan (04/30/2023 1:45 PM CDT): OSH MRI C-spine WO Con with prominent anterior epidural soft tissue extending from C3 to C5 contributing to moderate spinal canal stenosis. CT C-spine with lytic lesions of C3-C5. Neuro exam with 5/5 strength BUEs, no sensory deficits. - MRI C-spine W Con - Routine neuro checks - Defer RadOnc pending discussions and evaluation for systemic treatment - Pharmacologic pain control described elsewhere Smoking 04/28/2023 Assessment & Plan (04/28/2023 3:30 PM CDT): - Continue home nicotine patch Constipation 04/28/2023 Assessment & Plan (04/29/2023 2:11 PM CDT): Reports last BM at least 4 days ago. - KUB w/ moderate stool burden in R hemicolon, mild in L hemicolon - Daily Miralax, senna-doc Lumbar spine tumor 04/28/2023 Assessment & Plan (04/29/2023 2:15 PM CDT): L-spine MRI W Con 04/26 with epidural extension of tumor at L4 results in severe canal stenosis, also with epidural collections of undetermined significance in lumbar spine. Pt denies recent LP. Neuro exam with 5/5 strength BLEs, normal sensation. - Per Onc recs, consulted Neuro (rather than NSGY) because Onc does not feel pt would benefit from surgery but would like Neuro evaluation - RAYA, JAVIER, ANCA, ESR, CRP, RF/CCP, RPR, HIV, Crypto Ag - TSPOT - LP reasonable, deferred to onc whether masses/dural enhancement are related to HL - Also consider Rad Onc consult for pain control - Routine neuro checks - Pharmacologic pain regimen described elsewhere Current Oncology Plans Adult BMT/ONC - Blood and/or Platelet Administration for Outpatient* Plan Start Date:05/13/2023 Plan Provider:Shasta Sena MD Linked Problems Hodgkin lymphoma of lymph no ivone of multiple regions, unspecified Hodgkin lymphoma type (HCC) Treatment Medications No medications scheduled. Pembrolizumab + GVD: Gemcitabine / VinORELBine / DOXOrubicin Liposomal (DOXIL) 21 Day Cycles - Hodgkin* Plan Start Date:05/03/2023 Plan Provider:Shasta Sena MD Linked Problems Hodgkin lymphoma, unspecifie d Hodgkin lymphoma type, unspecified body region (HCC)Prevention of chemotherapy-induced neutropenia Treatment Medications Current Day (Day 1 , Cycle 4 - Planned for 07/14/2023) Next Day (Day 8, Cycle 4 - Planned for 07/21/2023) DOXOrubicin liposomal (LIPODOX)gemcitabine (GEMZAR)gemcitabine (GEMZAR) IVPB in 250 mL (using 38 mg/ml gemcitabine) (J9201)gemcitabine IVPB in 250 mL (using 100 mg/ml gemcitabine) (J9196)LIPOSOMAL DOXOrubicin (DOXIL) IVPB in 250 mLpembrolizumab (KEYTRUDA)pembrolizumab (KEYTRUDA) IVPB in 100 mLvinorelbine (NAVELBINE)vinorelbine (NAVELBINE) IVPB in 50 mL DOXOrubicin liposomal (DOXIL) 27 mg in dextrose 5% 250 mL IVPBgemCITabine (GEMZAR) 1,820 mg in sodium chloride 0.9% 250 mL IVPBpembrolizumab (KEYTRUDA) 200 mg in sodium chloride 0.9% 100 mLvinorelbine (NAVELBINE) 36 mg in sodium chloride 0.9% 50 mL IVPB DOXOrubicin liposomal (DOXIL) 27 mg in dextrose 5% 250 mL IVPBgemCITabine (GEMZAR) 1,820 mg in sodium chloride 0.9% 250 mL IVPBvinorelbine (NAVELBINE) 36 mg in sodium chloride 0.9% 50 mL IVPB Past Plans No past plan information found. Radiation Treatments * No radiation treatments are documented for this patient in [facility]. Treatments may have been administered in another system. Lifetime Dose Tracking * Chemical Lifetime Dose Automatic Entry Manual Entr y doxorubicin HCl pegylated liposomal 79.996 mg/m2 (148.4 mg) 79.996 mg/m2 (148.4 mg) 0 mg/m2 (0 mg) doxorubicin isotoxic equivalent (Please manually verify calculation) 79.996 mg/m2 (148.4 mg) 79.996 mg/m2 (148.4 mg) 0 mg/m2 (0 mg)
--- OUTSIDE RECORDS SUMMARY | 2024-06-25 06:53 | XMS_ITS | Encounter Summary ---
Author Organization [facility] Address [address] [place] [address] Phone Care Team Providers Care Core Winder Machine Operator Name Role Phone Shasta Sena MD Unavailable [phone] No, Physician Primary Care Provider [phone] Encounter Details Date Type Department Care Team (Late st Contact Info) Description 06/08/2023 Telephone [facility] Oncology [facility] 7th [place] [address] [place] [address] Esmer Mckay, RN Social History Tobacco Use [...] on file Legal Sex Male 10:05 AM AUTOMOBILE TRAVEL CLUB COUNSELOR Gender Identity Male 05/30/2023 9:41 PM AUTOMOBILE TRAVEL CLUB COUNSELOR Sexual Orientation Straight 05/30/2023 9: 41 PM AUTOMOBILE TRAVEL CLUB COUNSELOR documented as of this encounter Ordered Prescriptions Prescription Sig Dispense Quantity Refills Last Filled Start Date End Date nystatin cream Apply topically 2 (two) times a day Apply to red area around the groin 30 g 1 06/08/2023 3 documented in this encounter Miscellaneous Notes * Telephone Encounter - Esmer Mckay RN - 06/08/2023 1:00 PM AUTOMOBILE TRAVEL CLUB COUNSELOR Pt's mom called stating that he needs more morphine and oxycodone. Discussed that he should have enough morphine since he was sent a 21 day supply on 05/26. Also discussed that he told Dr. Sena that he was only taking 2 oxycodone daily so when he was sent a quantity of 45 Dr. Sena told him that should also last him the 3 weeks. She states he has been out of all of his pain meds for several day and is in excruciating pain. Spoke with the local pharmacy and they confirmed that he was dispensed what was ordered. Discussed with Dr. Sena. Dr. Sena does not want to refill his pain meds at this time. She will discuss his pain meds further with him at his next office visit next week. Advised Blanche that if his pain is that bad then he needs to go to local ER. She also states that he has redness and discomfort in his groin area. Pictures sent and reviewed with provider. Will send him nystatin cream for the groin redness. Blanche verbalized understanding to discussion. MOBILE TRAVEL CLUB COUNSELOR documented in this encounter Plan of Treatment Not on file documented as of this encounter Visit Diagnoses Not on filedocumented in this encounter Care Teams Core Winder Machine Operator Relationship Specialty Start Date End Date No, Physician PCP - General 05/06/23 Shasta Sena MD [address] [facility] [address] [place] [address] Medical Oncologist/Merchandising Intern Medical Oncology 05/05/23 documented as of this encounter
--- OUTSIDE RECORDS SUMMARY | 2024-06-25 06:53 | XMS_ITS | Encounter Summary ---
Author Organization [facility] Address [address] [place] [address] Phone Care Team Providers Care Skates Operator Name Role Phone Shasta Sena MD Unavailable [phone] No, Physician Primary Care Provider [phone] Reason for Visit * Episode Based Medications (Routine) - Closed Specialty Diagnoses / Procedures Referred By Devora guzman Referred To Contact Oncology Diagnoses Hodgkin lymphoma, unspecified Hodgkin lymphoma type, unspecified body region (HCC) Prevention of chemotherapy-induced neutropenia [address] [address] Phone: tel: fax: [facility] [address] [place] [address] [place] [address] Phone: tel: Referral ID Status Reason Start Date Expiration Date Visits Re quested Visits Authorized [id number] Closed 05/04/2023 07/21/2023 1 8 Encounter Details Date Type Department Care Team (Late st Contact Info) Description 06/02/2023 12:30 PM DIRECTOR OF PRIMARY CARE Infusion [facility] [address] [place] [address] [place] [address] Prevention of chemotherapy-induced neutropenia (Primary [...] on file Legal Sex Male 10:05 AM DIRECTOR OF PRIMARY CARE Gender Identity Male 05/30/2023 9:41 PM DIRECTOR OF PRIMARY CARE Sexual Orientation Straight 05/30/2023 9: 41 PM DIRECTOR OF PRIMARY CARE documented as of this encounter Nursing Notes * Alix Jiang RN - 06/02/2023 12:30 PM CST Oncology Nursing Note [facility] Kedar Capone is a 33 y.o. male who presents for treatment cycle 2, day 8 of GVD. Pre-treatment Nursing Assessment Nursing Assessment LOC: Alert, Awake Fatigue: None Any falls since your last visit?: No Orientation: Oriented x4 Behavior: Calm Speech: Clear Language: No aphasia Vision: At baseline Peripheral Neuropathy: No Oral Mucosa Grade: Normal (0) Pt states has potential to be ?: N/A Shortness of Breath?: No Appetite: Good Nausea/Vomiting: Yes (Intermittent but has medications for prn) Abdomen: Bowel sounds present x4, Soft Diarrhea: No Constipation: No Last BM Date: 06/01/23 Skin Condition/Temp: Warm Swelling: No Additional Notes: BP: 134/75 Temp: 36.4 ??C (97.6 ??F) Temp src: Transdermal Pulse: 112 Resp: 18 SpO2: 98 % Weight: 66.9 kg (147 lb 6.4 oz) Pain Score: 0 - No pain Treatment Patient: met treatment parameters Pre blood return: Brisk Kedar Capone tolerated treatment well. Patient was frequently observed and monitored throughout the administration of their treatment. Additional Notes: OBI placed on the left upper arm, and times filled out on booklet. Post blood return: Brisk IV access post infusion: NS and Other: D5 Patient Education Treatment Education: Information/teaching given to patient including symptom management, process and procedure related to today's visit, and when to notify MD Response: Verbalizes understanding Discharge Plan Discharge instructions given to patient. Future appointments given and reviewed with treatment plan. Discharge Mode: Ambulatory Accompanied by: Self Discharged To: Home CTOR OF PRIMARY CARE documented in this encounter Plan of Treatment [...] mL/hr, Administer over 20 Minutes, Once, On Wed06/02/23 at 1230, For 1 doseIndications:Sandoval n lymphoma, unspecified Hodgkin lymphoma type, unspecified body region (HCC),Prevention of chemotherapy-induced neutropenia New Bag 06/02/2023 11:53 AM DIRECTOR OF PRIMARY CARE 10 mg 153 mL/hr dextrose 5% infusion 30 mL/hr, intravenous, Continuous, Starting on Wed06/02/23 at 1230, 30 mL/hr while doxil (liposomal doxorubicin) is infusing Flush line with 10 - 20 mL before and after doxil (liposomal doxorubicin) infusionIndications:Ho dgkin lymphoma, unspecified Hodgkin lymphoma type, unspecified body region (HCC),Prevention of chemotherapy-induced neutropenia New Bag 06/02/2023 1:36 PM DIRECTOR OF PRIMARY CARE 30 mL/hr 30 mL/hr DOXOrubicin liposomal (DOXIL) 27 mg in dextrose 5% 250 mL IVPB 27 mg (rounded from 27.3 mg = 15 mg/m2 ? 1.82 m2 Treatment Plan BSA from Recorded weight), intravenous, Once, On Wed06/02/23 at 1345, For 1 dose, FIRST DOSE: - Infuse at 1 mg/min (no less than 60 minutes) SUBSEQUENT DOSES: - If NO previous infusion reaction administer over 60 minutes Irritant. Not to be administered as IV push. Flush line with [id number]:Hodgkin lymphoma, unspecified Hodgkin lymphoma type, unspecified body region (HCC),Prevention of chemotherapy-induced neutropenia New Bag 06/02/2023 1:39 PM DIRECTOR OF PRIMARY CARE 27 mg 263.5 mL/hr gemCITabine (GEMZAR) 1,820 mg in sodium chloride 0.9% 250 mL IVPB 1,820 mg (1,000 mg/m2 ? 1.82 m2 Treatment Plan BSA from Recorded weight), intravenous, at 536.4 mL/hr, Administer over 30 Minutes, Once, On Wed06/02/23 at 1315, For 1 doseIndications:Hodgki n lymphoma, unspecified Hodgkin lymphoma type, unspecified body region (HCC),Prevention of chemotherapy-induced neutropenia New Bag 06/02/2023 1:01 PM DIRECTOR OF PRIMARY CARE 1,820 mg 536.4 mL/hr ondansetron (ZOFRAN) tablet 8 mg 8 mg, oral, Once, On Wed06/02/23 at 1230, For 1 doseIndications:Hodgki n lymphoma, unspecified Hodgkin lymphoma type, unspecified body region (HCC),Prevention of chemotherapy-induced neutropenia Given 06/02/2023 12:03 PM DIRECTOR OF PRIMARY CARE 8 mg pegfilgrastim (NEULASTA ON-BODY) injection 6 mg 6 mg, subcutaneous, Once, On Wed06/02/23 at 1230, For 1 dose, Attach to the patient as directed following the completion of chemotherapy - to be given OUTPATIENT only Refrigerate. ON-PRO deviceIndications:Hodg kin lymphoma, unspecified Hodgkin lymphoma type, unspecified body region (HCC),Prevention of chemotherapy-induced neutropenia Given 06/02/2023 2:48 PM DIRECTOR OF PRIMARY CARE 6 mg Left Upper Arm vinorelbine (NAVELBINE) 36 mg in sodium chloride 0.9% 50 mL IVPB 36 mg (rounded from 36.4 mg = 20 mg/m2 ? 1.82 m2 Treatment Plan BSA from Recorded weight), intravenous, at 321.6 mL/hr, Administer over 10 Minutes, Once, On Wed06/02/23 at 1300, For 1 dose, Vesicant - For IV use only. Fatal if given intrathecallyIndicatio ns:Hodgkin lymphoma, unspecified Hodgkin lymphoma type, unspecified body region (HCC),Prevention of chemotherapy-induced neutropenia New Bag 06/02/2023 12:42 PM DIRECTOR OF PRIMARY CARE 36 mg 321.6 mL/hr documented in this encounter Orders Nursing Count Last Ordered Date First Orde red Date ONCBCN NURSING COMMUNICATION [id number] 06/02 ONCBCN TREATMENT PARAMETERS 8 06/02/2023 Appointment Requests Count Last Ordered Date Fi rst Ordered Date ONCBCN RETURN CHEMO 2.5HRS 1 06/02/2023 documented in this encounter Care Teams Skates Operator Relationship Specialty Start Date End Date No, Physician PCP - General 05/06/23 Shasta Sena MD [address] [facility] [address] [place] [address] Medical Oncologist/Senior Controls Technician Medical Oncology 05/05/23 documented as of this encounter
--- OUTSIDE RECORDS SUMMARY | 2024-06-25 06:53 | XMS_ITS | Encounter Summary ---
Author Organization [facility] Address [address] [place] [address] Care Team Providers Care Telemetry Technician Name Role Phone Shasta Sena MD Unavailable [phone] No, Physician Primary Care Provider [phone] Reason for Referral * MRI/CAT/PET Scan (Routine) - Closed Specialty Diagnoses / Procedures Referred By Contac t Referred To Contact Radiology Diagnoses Hodgkin lymphoma, unspecified Hodgkin lymphoma type, unspecified body region (HCC) Procedures PET/CT FDG Skull to Thigh Abigail Sapp NP [address] [facility], [address] [place] [address] Phone: tel: fax: [address] [address] Referral ID Status Reason Start Date Expiration Date Visits Re quested Visits Authorized [id number] Closed 05/07/2023 06/05/2024 2 2 TIONAL NURSING INSTRUCTOR Reason for Visit * MRI/CAT/PET Scan (Routine) - Closed Specialty Diagnoses / Procedures Referred By Contac t Referred To Contact Radiology Diagnoses Hodgkin lymphoma, unspecified Hodgkin lymphoma type, unspecified body region (HCC) Procedures PET/CT FDG Skull to Thigh Abigail Sapp NP [address] [facility] [facility], [address] [place] [address] Phone: tel: fax: [facility] 1 [facility] [place] [address] Referral ID Status Reason Start Date Expiration Date Visits Re quested Visits Authorized [id number] Closed 05/07/2023 06/05/2024 2 2 Encounter Details Date Type Department Care Team (Latest Contact Info) Description 06/16/2023 11:02 AM VOCATIONAL NURSING INSTRUCTOR - 06/16/2023 11:59 PM VOCATIONAL NURSING INSTRUCTOR Hospital Encounter [facility] [address] [place] [address] Hodgkin lymphoma, unspecified Hodgkin lymphoma type, unspecified body region (HCC) Discharge Disposition: Discharge to home or [...] on file Legal Sex Male 10:05 AM VOCATIONAL NURSING INSTRUCTOR Gender Identity Male 05/30/2023 9:41 PM VOCATIONAL NURSING INSTRUCTOR Sexual Orientation Straight 05/30/2023 9: 41 PM VOCATIONAL NURSING INSTRUCTOR documented as of this encounter Medications at [...] skin daily 8 mL 1 3 06/21/20 23 gabapentin (NEURONTIN) 600 mg tablet Take 1 tablet (600 mg total) by mouth 3 (three) times a day 90 tablet 11 3 06/30/20 23 HYDROcodone-acet aminophen (NORCO) 10-325 mg per tablet Take 1 tablet by mouth every 4 (four) hours as needed 3 06/21/20 23 morphine ER (MS CONTIN) 15 mg 12 hr tablet Take 1 tablet (15 mg total) by mouth 2 (two) times a day for 21 days 42 tablet 3 06/30/20 23 naloxone (NARCAN) 4 mg/actuation spray,non-aeroso l Administer 1 spray into affected nostril(s) as needed for opioid reversal Call 911. Administer a single spray in one nostril. Repeat every 3 minutes as needed if no or minimal response. 1 each 3 06/21/20 nystatin cream Apply topically 2 (two) times a day Apply to red area around the groin 30 g 1 3 06/30/20 23 oxyCODONE (ROXICODONE) 10 mg tabletIndication s:Pain Take [...] Read Routine (OP Routine) 06/16/2023 1:00 PM VOCATIONAL NURSING INSTRUCTOR Hodgkin lymphoma, unspecified Hodgkin lymphoma type, unspecified body region (HCC) documented in this encounter Results * PET/CT FDG Skull to Thigh (06/16/2023 1:00 PM VOCATIONAL NURSING INSTRUCTOR) Anatomical Region Laterality Modality N/A Positron Emissio n Tomography (PET) 06/16/2023 3:04 PM VOCATIONAL NURSING INSTRUCTOR Impressions 06/16/2023 4:52 PM VOCATIONAL NURSING INSTRUCTOR 1. ?? Interval treatment response as evidenced by decrease in hypermetabolic lymphadenopathy above and below the diaphragm and multifocal osseous lesions with resolution of splenic lesions and gluteal intramuscular deposits. 5PS = 4. ??May represent residual disease, but post-treatment inflammatory changes could have a similar appearance; correlation with clinical status and duration/type of prior treatment recommended. 2. ??Decrease in right upper lobe consolidation/opacities with mild residual groundglass opacities favored to represent lymphoma treatment response, although superimposed inflammatory process could have a similar appearance. Consider attention on follow-up imaging. 3. ??New hypermetabolic skin nodules along the lower neck and left flank are nonspecific but may be related to inflammation. Recommend correlation with direct visualization. Dictated by: Xochilt Gu M.D. The radiology attending physician has personally reviewed this study, and had reviewed and/or edited this written report and agrees with it. Electronically signed by: MD Ki Teague 06/16/2023 4:52 PM VOCATIONAL NURSING INSTRUCTOR EXAMINATION: ??TUMOR FDG-PET/CT IMAGING DATE OF STUDY: 06/16/2023 SCANNER: [facility] mCT RADIOPHARMACEUTICAL: 12.2 mCi F-18 Fluorodeoxyglucose (FDG) i.v. Injection site: Central venous port HISTORY: 33-year-old man with Hodgkin lymphoma diagnosed in November 2021 status post multiple cycles of chemotherapy, most recently treated with pembrolizumab-GVD initiated on 05/04/2023. ??The study is requested for treatment monitoring during therapy. Subsequent treatment strategy. TECHNIQUE: ?? The patient's fasting blood glucose level, measured by glucometer before injection of FDG, was 100 mg/dL. ??After intravenous administration of FDG, noncontrast CT images were obtained for attenuation correction and for fusion with emission PET images to allow for anatomical localization of PET findings. Emission PET images were then obtained. The study was interpreted on the [employer] workstation. The mean liver SUV (reported for senior quality control technician purposes) is 1.5. ?? The total scanned area was skull base to the proximal thighs. Images of the body were obtained starting 85 minutes after injection of tracer. COMPARISON: 11/26/2021 and 04/29/2023 FDG PET/CT DESCRIPTORS OF LESION FDG AVIDITY: Minimal: ? <= blood pool ? Mild: ?> blood pool and <= liver ? Moderate: ?? > liver and <= 2x SUVmax liver ? Moderate to marked: ?? >2x SUVmax liver and <= 3x SUVmax liver ? Marked: ? > 3x SUVmax liver ? FINDINGS: ?? Interval decrease in hypermetabolic lymphadenopathy above and below the diaphragm. For reference, hypermetabolic left axillary lymph node is unchanged in size and avidity measuring 0.7 cm in short axis with a maximum SUV of 6.4 (image 91). Mildly hypermetabolic subcentimeter right axillary lymph node has slightly decreased in size and avidity. Anterior paraortic/retroperitoneal lymph node measures 0.8 cm in short axis, previously 1.4 cm with a maximum SUV of 5.0, previously 6.9 (image 185). Previously seen hypermetabolic right upper lobe consolidation and surrounding groundglass opacities has significantly decreased in size and avidity compared to the prior study with few mildly hypermetabolic residual opacities (image 107). Focal hypermetabolic splenic lesions have resolved with activity similar to the liver. Previously seen hypermetabolic deposits in the right gluteal musculature have resolved. Previously seen hypermetabolic osseous lesions have significantly decreased in size and avidity. For reference, hypermetabolic lytic lesion of the left T11 transverse process with associated pathologic fracture with a maximum SUV of 4.0, previously 8.5 (image 153). Decrease in FDG avidity associated with lytic vertebral body lesions with pathologic fractures of C4 and L4. Additional pathologic fractures of several transverse processes are again seen. Mildly hypermetabolic skin thickening along the left flank is new from the prior study (image 203). New two focal areas of hypermetabolic skin nodularity along the lower neck (image 62). The most FDG-avid lesion is left axillary lymph node, with a maximum SUV of 6.4, and approximate axial dimensions of 0.7 x 1.0 cm. ??The uptake in this lesion is: greater than liver (5PS= 4). On the baseline study dated 04/29/2023, the most FDG-avid lesion was L3 vertebral body with maximum standardized uptake value (SUV) of 9.8. ??Compared to the current study, the percentage decrease in maximum SUV from baseline is 35%. Additional CT findings: Right internal jugular central venous port catheter terminates in the right atrium. Trace pericardial effusion is unchanged. Left pleural effusion has resolved. Procedure Note Remington Young MD - 06/16/2023 EXAMINATION: TUMOR FDG-PET/CT IMAGING DATE OF STUDY: 06/16/2023 SCANNER: [facility] [email or web address] RADIOPHARMACEUTICAL: 12.2 mCi F-18 Fluorodeoxyglucose (FDG) i.v. Injection site: Central venous port HISTORY: 33-year-old man with Hodgkin lymphoma diagnosed in November 2021 status post multiple cycles of chemotherapy, most recently treated with pembrolizumab-GVD initiated on 05/04/2023. The study is requested for treatment monitoring during therapy. Subsequent treatment strategy. TECHNIQUE: The patient's fasting blood glucose level, measured by glucometer before injection of FDG, was 100 mg/dL. After intravenous administration of FDG, noncontrast CT images were obtained for attenuation correction and for fusion with emission PET images to allow for anatomical localization of PET findings. Emission PET images were then obtained. The study was interpreted on the [employer] workstation. The mean liver SUV (reported for senior quality control technician purposes) is 1.5. The total scanned area was skull base to the proximal thighs. Images of the body were obtained starting 85 minutes after injection of tracer. COMPARISON: 11/26/2021 and 04/29/2023 FDG PET/CT DESCRIPTORS OF LESION FDG AVIDITY: Minimal: <= blood pool Mild: > blood pool and <= liver Moderate: > liver and <= 2x SUVmax liver Moderate to marked: >2x SUVmax liver and <= 3x SUVmax liver Marked: > 3x SUVmax liver FINDINGS: Interval decrease in hypermetabolic lymphadenopathy above and below the diaphragm. For reference, hypermetabolic left axillary lymph node is unchanged in size and avidity measuring 0.7 cm in short axis with a maximum SUV of 6.4 (image 91). Mildly hypermetabolic subcentimeter right axillary lymph node has slightly decreased in size and avidity. Anterior paraortic/retroperitoneal lymph node measures 0.8 cm in short axis, previously 1.4 cm with a maximum SUV of 5.0, previously 6.9 (image 185). Previously seen hypermetabolic right upper lobe consolidation and surrounding groundglass opacities has significantly decreased in size and avidity compared to the prior study with few mildly hypermetabolic residual opacities (image 107). Focal hypermetabolic splenic lesions have resolved with activity similar to the liver. Previously seen hypermetabolic deposits in the right gluteal musculature have resolved. Previously seen hypermetabolic osseous lesions have significantly decreased in size and avidity. For reference, hypermetabolic lytic lesion of the left T11 transverse process with associated pathologic fracture with a maximum SUV of 4.0, previously 8.5 (image 153). Decrease in FDG avidity associated with lytic vertebral body lesions with pathologic fractures of C4 and L4. Additional pathologic fractures of several transverse processes are again seen. Mildly hypermetabolic skin thickening along the left flank is new from the prior study (image 203). New two focal areas of hypermetabolic skin nodularity along the lower neck (image 62). The most FDG-avid lesion is left axillary lymph node, with a maximum SUV of 6.4, and approximate axial dimensions of 0.7 x 1.0 cm. The uptake in this lesion is: greater than liver (5PS= 4). On the baseline study dated 04/29/2023, the most FDG-avid lesion was L3 vertebral body with maximum standardized uptake value (SUV) of 9.8. Compared to the current study, the percentage decrease in maximum SUV from baseline is 35%. Additional CT findings: Right internal jugular central venous port catheter terminates in the right atrium. Trace pericardial effusion is unchanged. Left pleural effusion has resolved. IMPRESSION: 1. Interval treatment response as evidenced by decrease in hypermetabolic lymphadenopathy above and below the diaphragm and multifocal osseous lesions with resolution of splenic lesions and gluteal intramuscular deposits. 5PS = 4. May represent residual disease, but post-treatment inflammatory changes could have a similar appearance; correlation with clinical status and duration/type of prior treatment recommended. 2. Decrease in right upper lobe consolidation/opacities with mild residual groundglass opacities favored to represent lymphoma treatment response, although superimposed inflammatory process could have a similar appearance. Consider attention on follow-up imaging. 3. New hypermetabolic skin nodules along the lower neck and left flank are nonspecific but may be related to inflammation. Recommend correlation with direct visualization. Dictated by: Xochilt Gu M.D. The radiology attending physician has personally reviewed this study, and had reviewed and/or edited this written report and agrees with it. Electronically signed by: Remington Young MD Abigail Sapp NP IMG PET PROCEDURES Final Re sult documented in this encounter Visit Diagnoses Diagnosis Hodgkin lymphoma, unspecified Hodgkin lymphoma type, unspecified body region (HCC) documented in this encounter Care Teams Telemetry Technician Relationship Specialty Start Date End Date No, Physician PCP - General 05/06/23 Shasta Sena MD [facility] [address] Medical Oncologist/Client Consultant Medical Oncology 05/05/23 documented as of this encounter
--- OUTSIDE RECORDS SUMMARY | 2024-06-25 06:53 | XMS_ITS | Encounter Summary ---
Author Organization [facility] Address [address] [place] [address] Phone Care Team Providers Care Correctional Officer Sergeant Name Role Phone Shasta Sena MD Unavailable [phone] No, Physician Primary Care Provider [phone] Reason for Visit * Oncology (Routine) - Canceled Specialty Diagnoses / Procedures Referred By Devora guzman Referred To Contact Oncology Diagnoses Non-Hodgkin's lymphoma, unspecified body region, unspecified non-Hodgkin lymphoma type (HCC) Referral, Self Shasta Sena MD [address] [facility], [address] [place] [address] Phone: tel: fax: Referral ID Status Reason Start Date Expiration Date Visits Requested Visits Authorized [id number] Canceled Specialty Services Required 04/27/2023 07/04/2023 99 99 Encounter Details Date Type Department Care Team (Late st Contact Info) Description 06/30/2023 10:00 AM FUEL OIL TRUCK DRIVER Office Visit [facility] Oncology [address] 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 [...] file Legal Sex Male 10:05 AM FUEL OIL TRUCK DRIVER Gender Identity Male 05/30/2023 9:41 PM FUEL OIL TRUCK DRIVER Sexual Orientation Straight 05/30/2023 9: 41 PM FUEL OIL TRUCK DRIVER documented as of this encounter Last Filed Vital Signs Vital Sign Reading Time Taken Comments Blood Pressure 144/81 06/30/2023 11:15 AM FUEL OIL TRUCK DRIVER Pulse 81 06/30/2023 11:15 AM FUEL OIL TRUCK DRIVER Temperature 36.6 ??C (97.8 ??F) 06/30/2023 11:[address] Respiratory Rate 18 06/30/2023 11:15 AM FUEL OIL TRUCK DRIVER Oxygen Saturation 96% 06/30/2023 11:15 AM FUEL OIL TRUCK DRIVER Inhaled Oxygen Concentration - - Weight 67.9 kg (149 lb 9.6 oz) 06/30/2023 11:15 AM FUEL OIL TRUCK DRIVER Height - - Body Mass Index 24.15 04/28/2023 11:20 AM CDT documented in this encounter Ordered Prescriptions Prescription Sig Dispense Quantity Refills Last Filled Start Date End Date HYDROcodone-acetam inophen (NORCO) 10-325 mg per tablet Take 1 tablet by mouth every 8 (eight) hours as needed for pain 60 tablet 06/30/2023 morphine ER (MS CONTIN) 15 mg 12 hr tablet Take 1 tablet (15 mg total) by mouth 2 (two) times a day for 21 days 42 tablet 06/30/2023 gabapentin (NEURONTIN) 600 mg tablet Take 1 tablet (600 mg total) by mouth 3 (three) times a day 90 tablet 11 06/30/2023 06/29/[address] (PROTONIX) 40 mg EC tabletIndications: Stress Ulcer Prophylaxis Take 1 tablet (40 mg total) by mouth 2 (two) times a day 60 tablet 11 06/30/2023 06/29/2024 documented in this encounter Progress Notes * Shasta Sena MD - 06/30/2023 12:00 AM CST PATIENT NAME: CRYSTAL ROYAL : 1990 ART[place]: 06/30/2023 DIAGNOSIS: Classical Hodgkin lymphoma, diagnosed on right [...] Hospital admission 04/24/2023 - 05/05/2023, initially at [facility] and then transferred to [facility]. 6. Left inguinal lymph node biopsy, 04/27/2023, [...] negative. 10. Pembro-GVD, initiated 05/04/2023, very good NV post-C2 (5PS 4, residual uptake in a subcentimeter left axillary lymph node which is unchanged and SUV 4.0 in T11 transverse process, all other sites of disease completely resolved). INTERVAL HISTORY: Crystal returns to [facility] for continued treatment of his refractory Hodgkin lymphoma with pembro-GVD. I last saw him 2 weeks ago for cycle 3, day 1. Unfortunately he was unable to obtaintransportation to our office last week for cycle 3 day 8, so he is here for that treatment today. 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 He just forgot to go after spending most of day sleeping. He has been more tired and has been coughing, which started about 8 days ago. He continues to complain of severe nerve pain in the right sciatic distribution. He said he has again used up all of his 3-week supply of oxycodone and MS Contin because of the severe pain. He had no scrotal rash with this cycle of the Doxil with a slight dose reduction. He has had no fevers or other signs of infection. He has not noted any adenopathy. PHYSICAL EXAMINATION: General: Somewhat disheveled young man who came to the office alone. He has terrible dentition and at baseline speaks with a slur. Vital Signs: Weight is 67.9 kg which is stable. Blood pressure 144/81, pulse 81, temperature 36.6, O2 sat 96%. Performance Status: 1. Lungs: Clear to auscultation. Nodes: He has no enlarged preauricular, submandibular, cervical, supraclavicular, infraclavicular, axillary, or inguinal lymph nodes. Abdomen: Active bowel sounds. No hepatosplenomegaly. Extremities: No edema. LABORATORIES: WBC 6.9, hemoglobin 10.3, platelets 258, ANC 5.0, ALC 0.6. Chemistries remarkable for an alk phos of 136, down from 191. ESR 12. IMPRESSION AND PLAN: 1. Primary refractory Hodgkin lymphoma. This 33-year-old gentleman is now status post 2-1/2 cycles of pembrolizumab/GVD. He will receive cycle 3, day 8 (with a 1-week delay) of treatment today. At the time of his last visit 2 weeks ago, he had an interim PET scan, which showed a very good partial remission with mild uptake in the T11 transverse process as well as residual unchanged uptake in a subcentimeter axillary lymph node. It is not clear that either of these residual sites represent active disease and I think it is possible that he is already in a complete remission. Encouragingly, his ESR is 12 today down from 83 prior to initiating treatment. He looks markedly better. Again, we willproceed with cycle 3 day 8 of Navelbine, gemcitabine and Doxil. We are again continuing a dose reduction of the Doxil from 15 mg/m?? to 10 mg/m?? because of his severe scrotal excoriations, likely related to Doxil following cycle 2. He tolerated the current doses (Navelbine 36 mg, gemcitabine 1820 mg, Doxil 18.2 mg) without difficulty. He will continue to see pembrolizumab 200 mg on day 1 only ofeach cycle. He is transitioning his care back to Dr. Dhiraj Lopez in [place]. He will see Dr. Lopez at the [place] office on July 07 to reestablish care. Their office will complete cycles 3through 6 of pembro-GVD. We would recommend a repeat PET scan following cycle 6. If he remains in complete remission at that time, we would recommend 6 to 12 months of maintenance pembrolizumab. He is not a candidate for stem cell transplant for variety of reasons including his terrible dentition, ongoing drug use, and lack of social support. 2. Pain control. The patient has a long history of drug abuse and has had multiple arrests for drug-related charges. He complains of severe right sciatica which preceded his diagnosis of Hodgkin lymphoma. He has no active disease that would be causing pain at this time. We again dispensed a 3-weekcourse of MS Contin 15 mg b.i.d. and we did not dispense any oxycodone but instead have changed this to hydrocodone 10/325. He was given 60 tablets of hydrocodone and 42 tablets of MS Contin. I have been refilling these medications in an effort to entice him to continue compliance with his appointments so that we can administer his chemotherapy. After he completes treatment, he will need to transition to a Pain Clinic. It is unlikely that he would be able to get pain medications from other physicians because of his history of drug abuse which is ongoing. 3. Poor dentition. The patient has multiple dental caries with his teeth decayed to the gum. He hasno dental services and we do not have a resource to provide this for him. ELECTRONICALLY SIGNED - 07/04/2023 04:41 PM Shasta Sena M.D. 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)- Primary Hodgkin lymphoma, unspecified Hodgkin lymphoma type, unspecified body region (HCC) Prevention of chemotherapy-induced neutropenia documented in this encounter Discontinued Medications Medication Sig Discontinue Reason Start Date End Da te nystatin cream Apply topically 2 (two) times a day Apply to red area around the groin 06/08/2023 06/30/2023 gabapentin (NEURONTIN) 600 mg tablet Take 1 tablet (600 mg total) by mouth 3 (three) times a day Reorder 05/05/2023 06/30/[address] (PROTONIX) 40 mg EC tabletIndications:Stres s Ulcer Prophylaxis Take 1 tablet (40 mg total) by mouth 2 (two) times a day Reorder 05/05/2023 06/30/2023 oxyCODONE (ROXICODONE) 10 mg tabletIndications:Pain Take 1 tablet (10 mg total) by mouth every 6 (six) hours as needed for pain 06/16/2023 06/30/2023 morphine ER (MS CONTIN) 15 mg 12 hr tablet Take 1 tablet (15 mg total) by mouth 2 (two) times a day for 21 days Reorder 06/16/2023 06/30/2023 documented as of this encounter Orders Appointment Requests Count Last Ordered Date Fi rst Ordered Date ONCBCN CLINIC APPOINTMENT REQUEST 1 023 documented in this encounter Care Teams Correctional Officer Sergeant Relationship Specialty Start Date End Date No, Physician PCP - General 05/06/23 Shasta Sena MD [address] [address] Medical Oncologist/Lap Hand Tool Medical Oncology 05/05/23 documented as of this encounter
--- OUTSIDE RECORDS SUMMARY | 2024-06-25 06:53 | XMS_ITS | Encounter Summary ---
Author Organization [facility] Address [address] [place] [address] Phone Care Team Providers Care Time Broker Name Role Phone Shasta Sena MD Unavailable [phone] No, Physician Primary Care Provider [phone] Encounter Details Date Type Department Care Team (Latest Contact Info) Description 05/03/2024 Orders Only [facility] Scanning, Provider [...] on file Legal Sex Male 10:05 AM MILL WORK Gender Identity Male 05/30/2023 9:41 PM MILL WORK Sexual Orientation Straight 05/30/2023 9: 41 PM MILL WORK documented as of this encounter Plan of Treatment Not on file documented as of this encounter Procedures Procedure Name Priority Date/Time Associated Diagnosis Comments SCAN - RADIOLOGY/IMAGING 05/03/2024 SCAN - LABS 05/03/2024 documented in this encounter Results * SCAN - LABS (05/03/2024) us Provider Scanning Final Result * SCAN - RADIOLOGY/IMAGING (05/03/2024) Anatomical Region Laterality Modality Other us Provider Scanning Final Result documented in this encounter Visit Diagnoses Not on filedocumented in this encounter Care Teams Time Broker Relationship Specialty Start Date End Date No, Physician PCP - General 05/06/23 Shasta Sena MD [address] [facility] [address] [place] [address] Medical Oncologist/Pharmacy Technician Trainee Medical Oncology 05/05/23 documented as of this encounter
--- OUTSIDE RECORDS SUMMARY | 2024-06-25 06:53 | XMS_ITS | Encounter Summary ---
Author Organization [facility] Address [address] [place] [address] Phone Care Team Providers Care Bridge Contractor Name Role Phone Shasta Sena MD Unavailable [phone] No, Physician Primary Care Provider [phone] Encounter Details Date Type Department Care Team (Late st Contact Info) Description 06/21/2023 Orders Only [facility] [address] [facility] 7th [place] [address] [place] [address] Esmer Mckay, RN Social History Tobacco Use [...] on file Legal Sex Male 10:05 AM CORRECTIONAL THERAPY DIRECTOR Gender Identity Male 05/30/2023 9:41 PM CORRECTIONAL THERAPY DIRECTOR Sexual Orientation Straight 05/30/2023 9: 41 PM CORRECTIONAL THERAPY DIRECTOR documented as of this encounter Plan of Treatment Not on file documented as of this encounter Visit Diagnoses Not on filedocumented in this encounter Discontinued Medications Medication Sig Discontinue Reason Start Date End Da te naloxone (NARCAN) 4 mg/actuation spray,non-aerosol Administer 1 spray into affected nostril(s) as needed for opioid reversal Call 911. Administer a single spray in one nostril. Repeat every 3 minutes as needed if no or minimal response. 05/09/2023 06/21/2023 HYDROcodone-acetaminop hen (NORCO) 10-325 mg per tablet Take 1 tablet by mouth every 4 (four) hours as needed 04/21/2023 06/21/2023 filgrastim-sndz (Zarxio) 480 mcg/0.8 mL syringe Inject 0.8 mL (480 mcg total) under the skin daily 05/12/2023 06/21/2023 dexAMETHasone (DECADRON) 4 mg/mL injection Infuse 1 mL (4 mg total) into a venous catheter every 6 (six) hours 04/28/2023 06/21/2023 documented as of this encounter Care Teams Bridge Contractor Relationship Specialty Start Date End Date No, Physician PCP - General 05/06/23 Shasta Sena MD [address] [facility] [address] [place] [address] Medical Oncologist/Container Coordinator Medical Oncology 05/05/23 documented as of this encounter
--- OUTSIDE RECORDS SUMMARY | 2024-06-25 06:53 | XMS_ITS | Encounter Summary ---
Author Organization [facility] Address [address] [place] [address] Phone Care Team Providers Care Dead Mail Checker Name Role Phone Shasta Sena MD Unavailable [phone] No, Physician Primary Care Provider [phone] Reason for Visit * Reason Comments OP Infusion * Episode Based Medications (Routine) - Closed Specialty Diagnoses / Procedures Referred By Contmurray t Referred To Contact Oncology Diagnoses Hodgkin lymphoma, unspecified Hodgkin lymphoma type, unspecified body region (HCC) Prevention of chemotherapy-induced neutropenia [address] [address] Phone: tel: fax: [facility] Oncology [address] [place] [address] [place] [address] Phone: tel: Referral ID Status Reason Start Date Expiration Date Visits Re quested Visits Authorized [id number] Closed 05/04/2023 07/21/2023 1 8 Encounter Details Date Type Department Care Team (Late st Contact Info) Description 05/13/2023 2:00 PM BLINDSTITCH LAPEL PADDER Infusion [facility] Oncology [address] [place] [address] [place] [address] Prevention of chemotherapy-induced neutropenia (Primary Dx); Hodgkin [...] on file Legal Sex Male 10:05 AM BLINDSTITCH LAPEL PADDER Gender Identity Male 05/30/2023 9:41 PM BLINDSTITCH LAPEL PADDER Sexual Orientation Straight 05/30/2023 9: 41 PM BLINDSTITCH LAPEL PADDER documented as of this encounter Nursing Notes * Brenna Milton RN - 05/13/2023 2:00 PM CST Oncology Nursing Note [facility] Kedar Capone is a 33 y.o. male who presents for treatment cycle 1, day 8 of Pembrolizumab +GVD. Pre-treatment Nursing Assessment Nursing Assessment LOC: Alert Any falls since your last visit?: No Orientation: Oriented x4 Behavior: Calm Speech: Clear Language: No aphasia Vision: At baseline Peripheral Neuropathy: No Oral Mucosa Grade: Normal (0) Pt states has potential to be ?: N/A Shortness of Breath?: No Nausea/Vomiting: No Abdomen: Soft Diarrhea: No Constipation: No Last BM Date: 05/13/23 Skin Condition/Temp: Warm, Dry Swelling: No Additional Notes: BP: 142/79 Temp src: Transdermal Pulse: 71 Resp: 18 SpO2: 97 % Weight: 76.2 kg (168 lb) Pain Score: 0 - No pain Treatment Patient: met treatment parameters Pre blood return: Brisk Kedar Capone tolerated treatment well. Patient was frequently observed and monitored throughout the administration of their treatment. Additional Notes: Post blood return: Brisk IV access post infusion: Patient Education Treatment Education: Information/teaching given to patient including process and procedure related to today's visit Response: Verbalizes understanding Discharge Plan Discharge instructions given to patient. Future appointments given and reviewed with treatment plan. Discharge Mode: Ambulatory Accompanied by: Self Discharged To: Home DSTITCH LAPEL PADDER documented in this encounter Plan of Treatment [...] mL/hr, Administer over 20 Minutes, Once, On Wed05/13/23 at 1515, For 1 doseIndications:Hodgsonia n lymphoma, unspecified Hodgkin lymphoma type, unspecified body region (HCC),Prevention of chemotherapy-induced neutropenia New Bag 05/13/2023 2:48 PM BLINDSTITCH LAPEL PADDER 10 mg 153 mL/hr dextrose 5% infusion 30 mL/hr, intravenous, Continuous, Starting on Wed05/13/23 at 1515, 30 mL/hr while doxil (liposomal doxorubicin) is infusing Flush line with 10 - 20 mL before and after doxil (liposomal doxorubicin) infusionIndications:Ho dgkin lymphoma, unspecified Hodgkin lymphoma type, unspecified body region (HCC),Prevention of chemotherapy-induced neutropenia New Bag 05/13/2023 3:27 PM BLINDSTITCH LAPEL PADDER 30 mL/hr 30 mL/hr DOXOrubicin liposomal (DOXIL) 28 mg in dextrose 5% 250 mL IVPB 28 mg (rounded from 28.2 mg = 15 mg/m2 ? 1.88 m2 Treatment Plan BSA from Recorded weight), intravenous, Once, On Wed05/13/23 at 1630, For 1 dose, FIRST DOSE: - Infuse at 1 mg/min (no less than 60 minutes) SUBSEQUENT DOSES: - If NO previous infusion reaction administer over 60 minutes Irritant. Not to be administered as IV push. Flush line with [id number]:Hodgkin lymphoma, unspecified Hodgkin lymphoma type, unspecified body region (HCC),Prevention of chemotherapy-induced neutropenia New 05/13/2023 3:57 PM BLINDSTITCH LAPEL PADDER 28 mg gemCITabine (GEMZAR) 1,880 mg in sodium chloride 0.9% 250 mL IVPB 1,880 mg (1,000 mg/m2 ? 1.88 m2 Treatment Plan BSA from Recorded weight), intravenous, at 537.6 mL/hr, Administer over 30 Minutes, Once, On Wed05/13/23 at 1600, For 1 doseIndications:Hodgki n lymphoma, unspecified Hodgkin lymphoma type, unspecified body region (HCC),Prevention of chemotherapy-induced neutropenia New Bag 05/13/2023 3:26 PM BLINDSTITCH LAPEL PADDER 1,880 mg 537.6 mL/hr ondansetron (ZOFRAN) tablet 8 mg 8 mg, oral, Once, On Ana 05/13/23 at 1515, For 1 doseIndications:Hodgki n lymphoma, unspecified Hodgkin lymphoma type, unspecified body region (HCC),Prevention of chemotherapy-induced neutropenia Given 05/13/2023 2:48 PM BLINDSTITCH LAPEL PADDER 8 mg pegfilgrastim (NEULASTA ON-BODY) injection 6 mg 6 mg, subcutaneous, Once, On Ana 05/13/23 at 1515, For 1 dose, Attach to the patient as directed following the completion of chemotherapy - to be given OUTPATIENT only Refrigerate. ON-PRO deviceIndications:Hodg kin lymphoma, unspecified Hodgkin lymphoma type, unspecified body region (HCC),Prevention of chemotherapy-induced neutropenia Given 05/13/2023 4:58 PM BLINDSTITCH LAPEL PADDER 6 mg Left Upper Arm vinorelbine (NAVELBINE) 38 mg in sodium chloride 0.9% 50 mL IVPB 38 mg (rounded from 37.6 mg = 20 mg/m2 ? 1.88 m2 Treatment Plan BSA from Recorded weight), intravenous, at 322.8 mL/hr, Administer over 10 Minutes, Once, On Ana 05/13/23 at 1545, For 1 dose, Vesicant - For IV use only. Fatal if given intrathecallyIndicatio ns:Hodgkin lymphoma, unspecified Hodgkin lymphoma type, unspecified body region (HCC),Prevention of chemotherapy-induced neutropenia New Bag 05/13/2023 3:12 PM BLINDSTITCH LAPEL PADDER 38 mg 322.8 mL/hr documented in this encounter Orders Nursing Count Last Ordered Date First Orde red Date ONCBCN TREATMENT PARAMETERS 8 1 05/13/2023 Appointment Requests Count Last Ordered Date Fi rst Ordered Date ONCBCN RETURN CHEMO 2.5HRS 1 05/13/2023 documented in this encounter Care Teams Dead Mail Checker Relationship Specialty Start Date End Date No, Physician PCP - General 05/06/23 Shasta Sena MD [address] [facility] [address] [place] [address] Medical Oncologist/Air Boatswain Medical Oncology 05/05/23 documented as of this encounter
--- OUTSIDE RECORDS SUMMARY | 2024-06-25 06:53 | XMS_ITS | Referral Summary ---
Author Organization [facility] Address [address] [place] [address] Care Team Providers Care On Air [employer] Name Role Phone Shasta Sena MD Unavailable No, Physician Primary Care Provider [phone] Encounters Date Type Department Care Team Description 05/03/2024 Orders Only [facility] Scanning, Provider from Last 3 Months Allergies No known active allergies Medications albuterol HFA (PROVENTIL HFA,VENTOLIN HFA,PROAIR HFA) 90 mcg/actuation inhalerIndicati ons:Hodgkin lymphoma, unspecified Hodgkin lymphoma type, unspecified body region (HCC) Inhale 2 puffs once as needed for wheezing or shortness of breath (if Nebulizer not available) 1 each 05/05/[address] (CYMBALTA) 60 mg capsule Take 1 capsule (60 mg total) by mouth daily 30 capsule 11 05/06/20 23 Active naproxen (NAPROSYN) 500 mg tablet Take 1 tablet (500 mg total) by mouth 2 (two) times a day with meals 04/13/20 23 Active prochlorperazin e (Compazine) 10 mg tabletIndicatio ns:Hodgkin lymphoma, unspecified Hodgkin lymphoma type, unspecified body region (HCC),Preventio n of chemotherapy-in duced neutropenia Take 1 tablet (10 mg total) by mouth every 6 (six) hours as needed for nausea or vomiting Use first for nausea 60 tablet 3 05/26/20 23 Active ondansetron (ZOFRAN) 8 mg tabletIndicatio ns:Hodgkin lymphoma, unspecified Hodgkin lymphoma type, unspecified body region (HCC),Preventio n of chemotherapy-in duced neutropenia Take 1 tablet (8 mg total) by mouth every 8 (eight) hours as needed for nausea or vomiting Use if prochlorperazine does not stop nausea 24 tablet 3 05/26/20 23 Active acyclovir (ZOVIRAX) 400 mg tabletIndicatio ns:Hodgkin lymphoma, unspecified Hodgkin lymphoma type, unspecified body region (HCC),Preventio n of chemotherapy-in duced neutropenia Take 1 tablet (400 mg total) by mouth 2 (two) times a day For shingles prevention. 60 tablet 3 05/26/20 Active triamcinolone (KENALOG) 0.1 % cream Apply topically 2 (two) times a day Apply to rash in groin 453 g 1 06/16/[address] (PROTONIX) 40 mg EC tabletIndicatio ns:Stress Ulcer Prophylaxis Take 1 tablet (40 mg total) by mouth 2 (two) times a day 60 tablet 11 06/30/20 23 024 Active gabapentin (NEURONTIN) 600 mg tablet Take 1 tablet (600 mg total) by mouth 3 (three) times a day 90 tablet 11 06/30/20 23 024 Active morphine ER (MS CONTIN) 15 mg 12 hr tablet Take 1 tablet (15 mg total) by mouth 2 (two) times a day for 21 days 42 tablet 06/30/20 Active HYDROcodone-vernon taminophen (NORCO) 10-325 mg per tablet Take 1 tablet by mouth every 8 (eight) hours as needed for pain 60 tablet 06/30/20 23 Active Active Problems Problem Noted Date Diagnosed Date [...] 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 Ashford, [place], [place]. S/p ABVD (2 cycles) with progression [...] checks - Pharmacologic pain regimen described elsewhere Immunizations Name Administration Dates Next Due DTP 10/03/1993,1992,09/13/1991 ,09/14/1990 Hep B, Adolescent or Pediatric 08/26/1999,1998,02/07/1999 HiB 03/13/1992 MMR 09/13/1991,09/14/1990 OPV 10/03/1993,1992,09/13/1991 ,09/14/1990 Td, adsorbed 04/04/2004 Tdap 05/11/2021 Social History Tobacco Use Types Packs/Day Years [...] on file Legal Sex Male 10:05 AM [employer] Gender Identity Male 05/30/2023 9:41 PM [employer]IST Sexual Orientation Straight 05/30/2023 9: 41 PM [employer] SERVICES SPECIALIST Last Filed Vital Signs Vital Sign Reading Time Taken Comments Blood Pressure 144/81 06/30/2023 11:15 AM [employer] SERVICES SPECIALIST Pulse 81 06/30/2023 11:15 AM [employer]ITY SERVICES SPECIALIST Temperature 36.6 ??C (97.8 ??F) 06/30/2023 11:[address] Respiratory Rate 18 06/30/2023 11:15 AM SEC[employer]ITY SERVICES SPECIALIST Oxygen Saturation 96% 06/30/2023 11:15 AM [employer]ITY SERVICES SPECIALIST Inhaled Oxygen Concentration - - Weight 67.9 kg (149 lb 9.6 oz) 06/30/2023 11:15 AM [employer]ITY SERVICES SPECIALIST Height 167.6 cm (5' 6 ) 04/28/2023 11:20 AM CDT Body Mass Index 24.15 04/28/2023 11:20 AM CDT Plan of Treatment Not on file Procedures Procedure Name Priority Date/Time Associated Diagnosis Comments SCAN - LABS 05/03/2024 SCAN - RADIOLOGY/IMAGING 05/03/2024 from Last 3 Months Results * SCAN - RADIOLOGY/IMAGING (05/03/2024) Anatomical Region Laterality Modality Other us Provider Scanning Final Result * SCAN - LABS (05/03/2024) us Provider Scanning Final Result from Last 3 Months Insurance [facility] Advance Directives For more information, please contact: [phone] * Full Code (Latest Code Status on File) Date Activated Date Inactivated Comments 04/28/2023 11:03 AM 05/05/2023 7:19 PM Care Teams On Air Host Relationship Specialty Start Date End Date No, Physician PCP - General 05/06/23 Shasta Sena MD [id number] [facility] [address] [place] [address] Medical Oncologist/Splicer Operator Medical Oncology 05/05/23
--- OUTSIDE RECORDS SUMMARY | 2024-06-25 06:53 | XMS_ITS | Encounter Summary ---
Author Organization [facility] Address [address] [place] [address] Phone Care Team Providers Care Compressor Engineer Name Role Phone Shasta Sena MD Unavailable [phone], Physician Primary Care Provider [phone] Reason for Visit * Oncology (Routine) - Canceled Specialty Diagnoses / Procedures Referred By Devora guzman Referred To Contact Oncology Diagnoses Non-Hodgkin's lymphoma, unspecified body region, unspecified non-Hodgkin lymphoma type (HCC) Referral, Self Shasta Sena MD [address] [facility] [address] [place] [address] Phone: tel: fax: Referral ID Status Reason Start Date Expiration Date Visits Requested Visits Authorized [id number] Canceled Specialty Services Required 04/27/2023 07/04/2023 99 99 Encounter Details Date Type Department Care Team (Late st Contact Info) Description 05/26/2023 11:15 AM GROUND OPERATIONS SUPERINTENDENT Office Visit [facility] Oncology [address] [facility] 7th [place] [address] [place] [address] Shasta Sena MD [address] [facility] [address] [place] [address] Hodgkin lymphoma, unspecified Hodgkin lymphoma type, unspecified body region (HCC) (Primary Dx); Prevention of chemotherapy-induced neutropenia Social History Tobacco [...] on file Legal Sex Male 10:05 AM GROUND OPERATIONS SUPERINTENDENT Gender Identity Male 05/30/2023 9:41 PM GROUND OPERATIONS SUPERINTENDENT Sexual Orientation Straight 05/30/2023 9: 41 PM GROUND OPERATIONS SUPERINTENDENT documented as of this encounter Last Filed Vital Signs Vital Sign Reading Time Taken Comments Blood Pressure 144/79 05/26/2023 9:47 AM GROUND OPERATIONS SUPERINTENDENT Pulse 79 05/26/2023 9:47 AM GROUND OPERATIONS SUPERINTENDENT Temperature 36.2 ??C (97.2 ??F) 05/26/2023 9:47 AM CS T Respiratory Rate 18 05/26/2023 9:47 AM GROUND OPERATIONS SUPERINTENDENT Oxygen Saturation 98% 05/26/2023 9:47 AM GROUND OPERATIONS SUPERINTENDENT Inhaled Oxygen Concentration - - Weight 71.2 kg (157 lb) 05/26/2023 9:47 AM GROUND OPERATIONS SUPERINTENDENT Height - - Body Mass Index 25.34 04/28/2023 11:20 AM CDT documented in this encounter Ordered Prescriptions Prescription Sig Dispense Quantity Refills Last Filled Start Date End Date oxyCODONE (ROXICODONE) 10 mg tabletIndications: Pain Take 1 tablet (10 mg total) by mouth every 6 (six) hours as needed for pain 45 tablet 05/26/2023 06/16/2023 morphine ER (MS CONTIN) 15 mg 12 hr tablet Take 1 tablet (15 mg total) by mouth 2 (two) times a day for 21 days 42 tablet 05/26/2023 06/16/2023 documented in this encounter Progress Notes * Shasta Sena MD - 05/26/2023 12:00 AM CST PATIENT NAME: CRYSTAL ROYAL : 1990 ARTURO: 05/26/2023 DIAGNOSIS: Classical Hodgkin lymphoma, diagnosed on right [...] Hospital admission 04/24/2023 - 05/05/2023, initially at [facility] and then transferred to [facility]. 6. Left inguinal lymph node biopsy, [...] malignancy, all cultures negative. 10. Pembro-GVD, initiated 05/04/2023. INTERVAL HISTORY: Crystal returns to the [facility] for continued treatment of his primary refractory Hodgkin lymphoma. I last saw him on 05/13/2023 when he received cycle 1, day 8 of pembro/GVD. Since that time, he has been doing relatively well. He continues to have some right hip and leg pain which is worse when he is lying down. He also has chronic neck pain which preceded his diagnosis of Hodgkin andhe describes his neck as feeling like it has lots of knots . He has had no fevers, cough, shortness of breath, abdominal pain or bloating, or lower extremity edema. He continues to wear a soft tissue brace/hernia belt which he thinks helps with his right leg pain. He is currently taking Cymbalta and gabapentin for his pain. MEDICATIONS: 1. Acyclovir 400 mg b.i.d. 2. Cymbalta 60 mg daily. 3. Gabapentin 600 mg t.i.d. 4. MS Contin 15 mg b.i.d. 5. Oxycodone 15 mg p.r.n. 6. Naproxen 500 mg b.i.d. 7. Pantoprazole 40 mg daily. PHYSICAL EXAMINATION: General: He is in no acute distress. Strangely, he was playing a video game on his phone during ourentire interaction and although he was answering my questions, he was making no eye contact as he was busy with his video game. He has a slight speech impediment which makes his speech sounds somewhat garbled. This is unchanged. Performance Status: 1. Vital Signs: Weight 71.2 kg, which is down 5 kg. Blood pressure 144/79, pulse 79, temperature 36.2,O2 sat 98%. Lungs: Clear to auscultation. HEENT: He has terrible dentition with multiple caries with his teeth decayed to the gums. Nodes: He has a mobile 1.5 x 1 cm medial left supraclavicular node, but I cannot appreciate any other palpable peripheral adenopathy. Abdomen: No hepatosplenomegaly. As above, he is wearing some kind of hernia belt mostly wrapped around his right hip and thigh region. Neurologic Exam: 5/5 strength in distal muscle groups. LABORATORIES: WBC 9.7, hemoglobin 9.1, platelets 320, ANC 8.1, ALC 0.5. Chemistries remarkable for an alk phos of224. ESR 22 down from 83. IMPRESSION AND PLAN: 1. Primary refractory Hodgkin lymphoma. This 33-year-old gentleman with very difficult social circumstances has now completed 1 cycle of pembro/GVD. We will proceed today with cycle 2, day 1 and we will adjust his doses for his weight loss. He was extremely edematous when we first met him. Overall,he looks markedly better. I can still appreciate a small left supraclavicular node, but his very bulky bilateral inguinal adenopathy is not palpable and his sed rate has nearly normalized. His remotehemoglobin has also significantly improved. We will proceed today with cycle 2, day 1 and plan to see him back in a week for cycle 2, day 8. As described further below, his transportation status is still quite marginal. Given his social circumstances, again as described further below, it is extremely unlikely that he will ever get to a stem cell transplant, and our goal is to try and administer 6full cycles of pembro/JVD if possible. He will be due for his repeat PET in 3 weeks. If he is having a very nice response, we will speak with Dr. Schwartz and see if we can transition his treatment to [facility]. 2. Pain control. The patient continues to struggle with right leg pain. He is currently on MS Contin 15 mg b.i.d. as well as oxycodone 15 mg p.r.n. We will decrease his oxycodone tablet strength to 10 mg. Unfortunately, he is still using street drugs according to his mother. 3. Drug use. Crystal's mother called my nurse after his appointment today and was quite distraught because she said Crystal is still using all those drugs . She did not specify to my nurse exactly whichdrugs he was taking, but I believe he has a history of meth use. I forgot to ask him about this today, but we will discuss that at the time of his next visit. 4. Poor dentition. Crystal is at increased risk of infection given his terrible dental decay. I do not believe he has resources to have dental work. Again, this will prevent him from proceeding with anautologous stem cell transplant. We will try and help with this once he finishes his chemotherapy. 5. Social circumstances. The patient is currently living with his aunt in [place], [place]. He does not work and has no resources. He does not drive and has no transportation. His mother has been able to arrange transportation to [place] for his last 2 visits I believe through Medicaid. Hopefully, she will be able to continue this at least through cycle 3, so that we feel confident that he is responding prior to transitioning him to his local oncologist. ELECTRONICALLY SIGNED - 05/31/2023 10:35 PM Shasta Sena M.D. pathology secretary [facility] Chair in Medical Oncology NB/obdulia cc: CARLA LOPEZ MD [address] [place] [phone] / RICHARD SHAH MD [address] [place] [phone] / [place] OPERATIONS SUPERINTENDENT documented in this encounter Plan of Treatment Not on file documented as of this encounter Results * (ABNORMAL) Comprehensive metabolic panel (06/02/2023 9:40 AM GROUND OPERATIONS SUPERINTENDENT) Sodium 135 135 - 145 mmol/L MICHAELA [facility] Comment:Testing performed by : [facility], [address] [place] [phone] Potassium, pl 3.4 3.3 - 4.9 mmol/L MICHAELA [facility] Comment:Testing performed by : [facility], [address] [place] [phone] Chloride 96(L) 97 - 110 mmol/L MICHAELA [facility] Comment:Testing performed by : [facility], [address] [place] [phone] CO2 30 22 - 32 mmol/L MICHAELA [facility] Comment:Testing performed by : [facility], [address] [place] [phone] Anion gap 9 2 - 15 mmol/L MICHAELA [facility] Comment:Testing performed by : [facility], [address] [place] [phone] BUN 21 6 - 25 mg/dL MICHAELA [facility]J Comment:Testing performed by : [facility], [address] [place] [phone] Creatinine 0.65(L) 0.80 - 1.30 mg/dL CERNER [facility] Comment:Testing performed by : [facility], [address] [place] [phone] Glucose 123 70 - 199 mg/dL CERNER [facility] Comment: Interpretive Data Fasting glucose >/= [...] was last revised 2022. Testing performed by: [facility], [address] [place] [phone] Calcium 9.4 8.5 - 10.3 mg/dL CERNER [facility] Comment:Testing performed by : [facility], [address] [place] [phone] Bilirubin, total 0.5 0.1 - 1.2 mg/dL [facility]:Testing performed by : [facility], [address] [place] [phone] Protein, pl 7.6 6.5 - 8.5 g/dL CERNER [facility]J Comment:Testing performed by : [facility], [address] [place] [phone] Albumin 4.5 3.5 - 5.0 g/dL CERNER [facility]J Comment:Testing performed by : [address] [phone] Alk phos 217(H) 40 - 130 Units/L [facility]ERMURALI [facility] Comment:Testing performed by : [address] [phone] ALT 56(H) 7 - 55 Units/L CERNER [facility] Comment:Testing performed by : [facility], [address] [place] [phone] AST 29 10 - 50 Units/L MICHAELA [facility] Comment:Testing performed by : [facility], [address] [place] [phone] Blood 06/02/2023 9:40 AM GROUND OPERATIONS SUPERINTENDENT 06/02/2023 9:43 AM GROUND OPERATIONS SUPERINTENDENT us Shasta Sena MD LAB BLOOD ORDERABLES Final Result MICHAELA [facility] Department [place] [address] * (ABNORMAL) CBC with auto differential (06/02/2023 9:40 AM GROUND OPERATIONS SUPERINTENDENT) Pathologist [facility] WBC 4.2 3.8 - 9.8 K/cumm MICHAELA [facility]A Comment:Testing performed by : [facility], [address] [place] [phone] Hgb 9.1(L) 13.8 - 17.2 g/dL MICHAELA [facility] Comment: Interpretive Data A reference range for this assay has not been established for patients with an unknown legal sex. Please refer to the laboratory test catalog for established sex-specific reference intervals. Current interpretive data was last revised on 2023. Testing performed by: [facility], [address] [place] [phone] Hct 27.2(L) 40.7 - 50.3 % MICHAELA [facility] Comment: Interpretive Data A reference range for this assay has not been established for patients with an unknown legal sex. Please refer to the laboratory test catalog for established sex-specific reference intervals. Current interpretive data was last revised on 2023. Testing performed by: [facility], [address] [place] [phone] Plt 234 140 - 440 K/cumm MICHAELA [facility]RIA Comment:Testing performed by : [facility], [address] [place] [phone] MPV 6.4(L) 6.8 - 10.4 fL MICHAELA [facility]A Comment:Testing performed by : [facility], [address] [place] [phone] RBC 3.60(L) 4.50 - 5.70 M/cumm MICHAELA [facility] Comment: Interpretive Data A reference range for this assay has not been established for patients with an unknown legal sex. Please refer to the laboratory test catalog for established sex-specific reference intervals. Current interpretive data was last revised on 2023. Testing performed by: [facility], [address] [place] [phone] MCV 75.7(L) 80.0 - 97.6 fL MICHAELA [facility]A Comment:Testing performed by : [facility], [address] [place] [phone] MCH 25.3(L) 26.7 - 33.7 pg MICHAELA [facility]A Comment:Testing performed by : [facility], [address] [place] [phone] MCHC 33.4 32.7 - 35.5 g/dL MICHAELA [facility]A Comment:Testing performed by : [facility], [address] [place] [phone] RDW CV 25.4(H) 11.8 - 14.6 % MICHAELA [facility]A Comment:Testing performed by : [facility], [address] [place] [phone] NRBC abs 0.01 0.00 - 0.01 K/cumm MICHAELA [facility]A Comment:Testing performed by : [facility], [address] [place] [phone] Blood 06/02/2023 9:40 AM GROUND OPERATIONS SUPERINTENDENT 06/02/2023 9:43 AM GROUND OPERATIONS SUPERINTENDENT us Shasta Sena MD LAB BLOOD ORDERABLES Final Result MICHAELA [facility]NA[facility] Department of Laboratories [place], [place] [id number] * (ABNORMAL) Comprehensive metabolic panel (05/26/2023 9:41 AM GROUND OPERATIONS SUPERINTENDENT) Pathologist [facility] Sodium 144 135 - 145 mmol/L MICHAELA SANABRIA Comment:Testing performed by : [facility], [address] [place] [phone] Potassium, pl 4.1 3.3 - 4.9 mmol/L CERNER BJ Comment:Testing performed by : [facility], [address] [place] [phone] Chloride 107 97 - 110 mmol/L CERNER BJ Comment:Testing performed by : [facility], [address] [place] [phone] CO2 30 22 - 32 mmol/L CERNER BJ Comment:Testing performed by : [facility], [address] [place] [phone] Anion gap 7 2 - 15 mmol/L CERNER BJ Comment:Testing performed by : [facility], [address] [place] [phone] BUN 9 6 - 25 mg/dL CERNER BJ Comment:Testing performed by : [facility], [address] [place] [phone] Creatinine 0.66(L) 0.80 - 1.30 mg/dL CERNER [facility] Comment:Testing performed by : [facility], [address] [place] [phone] Glucose 100 70 - 199 mg/dL CERNER [facility] Comment: [...] was last revised 2022. Testing performed by: [facility], [address] [place] [phone] Calcium 9.5 8.5 - 10.3 mg/dL CERNER [facility]J Comment:Testing performed by : [facility], [address] [place] [phone] Bilirubin, total 0.2 0.1 - 1.2 mg/dL CERNER BJ Comment:Testing performed by : [facility], [address] [place] [phone] Protein, pl 6.9 6.5 - 8.5 g/dL MICHAELA [facility] Comment:Testing performed by : [facility], [address] [place] [phone] Albumin 4.0 3.5 - 5.0 g/dL MICHAELA [facility] Comment:Testing performed by : [facility], [address] [place] [phone] Alk phos 224(H) 40 - 130 Units/L CERUMRALI [facility] Comment:Testing performed by : [facility], [address] [place] [phone] ALT 29 7 - 55 Units/L MICHAELA [facility] Comment:Testing performed by : [facility], [address] [place] [phone] AST 18 10 - 50 Units/L MIC[facility]ELA [facility] Comment:Testing performed by : [facility], [address] [place] [phone] Blood 05/26/2023 9:41 AM GROUND OPERATIONS SUPERINTENDENT 05/26/2023 9:43 AM GROUND OPERATIONS SUPERINTENDENT us Shasta Sena MD LAB BLOOD ORDERABLES Final Result [facility] Department [place] [address] * (ABNORMAL) CBC with auto differential (05/26/2023 9:41 AM GROUND OPERATIONS SUPERINTENDENT) WBC 9.7 3.8 - 9.8 K/cumm MICHA[facility]A [facility] Comment:Testing performed by : [facility], [address] [place] [phone] Hgb 9.1(L) 13.8 - 17.2 g/dL MIC[facility]A [facility] Comment: Interpretive Data A reference range for this assay has not been established for patients with an unknown legal sex. Please refer to the laboratory test catalog for established sex-specific reference intervals. Current interpretive data was last revised on 2023. Testing performed by: [facility], [address] [place] [phone] Hct 28.5(L) 40.7 - 50.3 % [facility] Comment: Interpretive Data A reference range for this assay has not been established for patients with an unknown legal sex. Please refer to the laboratory test catalog for established sex-specific reference intervals. Current interpretive data was last revised on 2023. Testing performed by: [facility], [address] [place] [address] Plt 320 140 - 440 K/cumm [facility] Comment:Testing performed by : [facility], [address] [place] [address] MPV 6.9 6.8 - 10.4 fL [facility] Comment:Testing performed by : [place] [address] RBC 3.69(L) 4.50 - 5.70 M/cumm [facility] Comment: Interpretive Data A reference range for this assay has not been established for patients with an unknown legal sex. Please refer to the laboratory test catalog for established sex-specific reference intervals. Current interpretive data was last revised on 2023. Testing performed by: [facility], [address] [place], [place] [phone] MCV 77.4(L) 80.0 - 97.6 fL [facility] Comment:Testing performed by : [place] [id number] MCH 24.8(L) 26.7 - 33.7 pg [facility] Comment:Testing performed by : [place] [id number] MCHC 32.0(L) 32.7 - 35.5 g/dL [facility] Comment:Testing performed by : [place] [id number] RDW CV 27.3(H) 11.8 - 14.6 % [facility] Comment:Testing performed by : [place] [id number] NRBC abs 0.01 0.00 - 0.01 K/cumm [facility] Comment:Testing performed by : [place] [id number] Blood 05/26/2023 9:41 AM GROUND OPERATIONS SUPERINTENDENT 05/26/2023 9:43 AM GROUND OPERATIONS SUPERINTENDENT us Shasta Sena MD LAB BLOOD ORDERABLES Final Result Performing Organization Address City/[facility] Co de Phone Number [facility] [place] [address] * (ABNORMAL) Erythrocyte sedimentation rate (05/26/2023 9:41 AM GROUND OPERATIONS SUPERINTENDENT) Erythrocyte sedimentation rate 22(H) 1 - 15 mm/hr [facility] Blood 05/26/2023 9:41 AM GROUND OPERATIONS SUPERINTENDENT 05/26/2023 10:00 AM GROUND OPERATIONS SUPERINTENDENT us Shasta Sena MD LAB BLOOD ORDERABLES Final Result Performing Organization Address [facility] Phone Number [facility] Department [place] [address] documented in this encounter Visit Diagnoses Diagnosis Hodgkin lymphoma, unspecified Hodgkin lymphoma type, unspecified body region (HCC)- Primary Prevention of chemotherapy-induced neutropenia documented in this encounter Discontinued Medications Medication Sig Discontinue Reason Start Date End Da te morphine ER (MS CONTIN) 15 mg 12 hr tablet Take 3 tablets (45 mg total) by mouth 2 (two) times a day for 10 days 05/09/2023 05/26/2023 oxyCODONE (ROXICODONE) 15 mg immediate release tabletIndications:Pain Take 1 tablet (15 mg total) by mouth every 4 (four) hours as needed for pain for up to 10 days 05/05/2023 05/26/2023 documented as of this encounter Orders Lab Orders Without Results Count Last Ordered D ate First Ordered Date TSH 1 05/26/2023 Appointment Requests Count Last Ordered Date Fi rst Ordered Date ONCBCN CLINIC APPOINTMENT REQUEST 1 023 documented in this encounter Care Teams Compressor Engineer Relationship Specialty Start Date End Date No, Physician PCP - General 05/06/23 Shasta Sena MD [address] [facility] [address] [place] [address] Medical Oncologist/Property Claims Adjuster Medical Oncology 05/05/23 documented as of this encounter
--- OUTSIDE RECORDS SUMMARY | 2024-06-25 06:53 | XMS_ITS | Encounter Summary ---
Author Organization [facility] Address [address] [place] [address] Phone Care Team Providers Care [employer] Name Role Phone Shasta Sena MD Unavailable [phone] No, Physician Primary Care Provider [phone] Encounter Details Date Type Department Care Team (Late st Contact Info) Description 05/14/2023 Telephone [facility] Oncology [facility] 7th [place] [address] [place] [address] Esmer Mckay RN Social History [...] on file Legal Sex Male 10:05 AM UNIT OPERATOR Gender Identity Male 05/30/2023 9:41 PM UNIT OPERATOR Sexual Orientation Straight 05/30/2023 9: 41 PM UNIT OPERATOR documented as of this encounter Miscellaneous Notes * Telephone Encounter - Esmer Mckay RN - 05/14/2023 1:18 PM UNIT OPERATOR Lab and blood transfusion orders faxed to [facility]. Discussed with pt's mom that he should try to go Wednesday morning to get labs and if hgb is low they will be able to transfuse him same day. She verbalized understanding. 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
--- OUTSIDE RECORDS SUMMARY | 2024-06-25 06:53 | XMS_ITS | Encounter Summary ---
Author Organization [facility] Healthcare Address [address] [place] [address] Care Team Providers Care Chalk Cutter Name Role Phone Shasta Sena MD Unavailable [phone] No, Physician Primary Care Provider [phone] Encounter Details Date Type Department Care Team (Latest Contact Info) Description 06/23/2023 11:05 AM CAR CLERK PULLMAN - 06/23/2023 11:59 PM CAR CLERK PULLMAN Hospital Encounter [facility] Advanced Medicine [facility] Advanced Medicine ([facility]) [address] [place] [phone] Discharge Disposition: Discharge to home or self [...] on file Legal Sex Male 10:05 AM CAR CLERK PULLMAN Gender Identity Male 05/30/2023 9:41 PM CAR CLERK PULLMAN Sexual Orientation Straight 05/30/2023 9: 41 PM CAR CLERK PULLMAN documented as of this encounter Medications at [...] rash in groin 453 g 1 3 gabapentin (NEURONTIN) 600 mg tablet Take 1 tablet (600 mg total) by mouth 3 (three) times a day 90 tablet 11 3 06/30/20 23 morphine ER (MS CONTIN) 15 mg 12 hr tablet Take 1 tablet (15 mg total) by mouth 2 (two) times a day for 21 days 42 tablet 3 06/30/20 23 nystatin cream Apply topically 2 (two) times a day Apply to red area around the groin 30 g 1 12/05/202 3 06/30/20 oxyCODONE (ROXICODONE) 10 mg tabletIndication [...] on filedocumented in this encounter Care Teams Chalk Cutter Relationship Specialty Start Date End Date No, Physician PCP - General 05/06/23 Shasta Sena MD [address] [facility] [address] [place] [id number] Medical Oncologist/Centrifuge Operator Medical Oncology 05/05/23 documented as of this encounter
--- OUTSIDE RECORDS SUMMARY | 2024-06-25 06:53 | XMS_ITS | Clinical Summary ---
Author Organization [facility] Address [address] [place] [address] Care Team Providers Care Pyridine Recovery Operator Name Role Phone Shasta Sena MD Unavailable [phone] No, Physician Primary Care Provider [phone] Allergies No known active allergies Medications albuterol [...] For shingles prevention. 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 Ashford, [place], [place]. S/p ABVD (2 cycles) with progression [...] checks - Pharmacologic pain regimen described elsewhere Encounters Date Type Department Care Team Description 05/03/2024 Orders Only [facility] Scanning, Provider from Last 3 Months Immunizations Name Administration Dates Next Due DTP 10/03/1993,1992,09/13/1991 ,09/14/1990 Hep B, Adolescent or Pediatric 08/26/1999,1998,02/07/1999 HiB 03/13/1992 MMR 09/13/1991,09/14/1990 OPV 10/03/1993,1992,09/13/1991 ,09/14/1990 Td, adsorbed 04/04/2004 Tdap 05/11/2021 Surgical History Surgery Date Site/Laterality Comments US GUIDED BIOPSY LYMPH NODE SUPERFICIAL LEFT N/A Medical History Medical History Date Comments Prevention of chemotherapy-induced neutropenia 1 Social History Tobacco Use Types Packs/Day Years [...] on file Legal Sex Male 10:05 AM REVIEW APPRAISER Gender Identity Male 05/30/2023 9:41 PM REVIEW APPRAISER Sexual Orientation Straight 05/30/2023 9: 41 PM REVIEW APPRAISER Obstetrics History Last Filed Vital Signs Vital Sign Reading Time Taken Comments Blood Pressure 144/81 06/30/2023 11:15 AM REVIEW APPRAISER Pulse 81 06/30/2023 11:15 AM REVIEW APPRAISER Temperature 36.6 ??C (97.8 ??F) 06/30/2023 11:[address] Respiratory Rate 18 06/30/2023 11:15 AM REVIEW APPRAISER Oxygen Saturation 96% 06/30/2023 11:15 AM REVIEW APPRAISER Inhaled Oxygen Concentration - - Weight 67.9 kg (149 lb 9.6 oz) 06/30/2023 11:15 AM REVIEW APPRAISER Height 167.6 cm (5' 6 ) 04/28/2023 11:20 AM CDT Body Mass Index 24.15 04/28/2023 11:20 AM CDT Plan of Treatment Health Maintenance Due Date Last Done Comments Depression Screening 1989 Hepatitis C Screening 1989 Pneumococcal vaccine <65 (1 of 2 - PCV) 1995 Varicella Vaccines (1 of 2 - 13+ 2-dose series) 2002 Regular Well Visit/Exam 18-64 2007 Zoster Vaccine (1 of 2) 02/07/2008 Influenza Vaccine (#1) 2024 DTaP/Tdap/Td Vaccine (6 - Td or Tdap) 05/11/2031 05/11/2021, 04/04/2004, 10/03/1993, Additional history exists HPV Vaccines Aged Out No longer eligi ble based on patient's age to complete this topic Procedures Procedure Name Priority Date/Time Associated Diagnosis Comments SCAN - LABS 05/03/2024 SCAN - RADIOLOGY/IMAGING 05/03/2024 from Last 3 Months Results * SCAN - RADIOLOGY/IMAGING (05/03/2024) Anatomical Region Laterality Modality Other us Provider Scanning Final Result * SCAN - LABS (05/03/2024) us Provider Scanning Final Result from Last 3 Months Insurance [place]ives For more information, please contact: [phone] * Full Code (Latest Code Status on File) Date Activated Date Inactivated Comments 04/28/2023 11:03 AM 05/05/2023 7:19 PM Care Teams Pyridine Recovery Operator Relationship Specialty Start Date End Date No, Physician PCP - General 05/06/23 Shasta Sena MD [address] [facility] [address] [place] [address] Medical Oncologist/Paper Products Printer Medical Oncology 05/05/23
--- OUTSIDE RECORDS SUMMARY | 2024-06-25 06:53 | XMS_ITS | Encounter Summary ---
Author Organization [facility] Healthcare Address [address] [place] [address] Care Team Providers Care Farm Machinery Erector Name Role Phone Shasta Sena MD Unavailable [phone] No, Physician Primary Care Provider Encounter Details Date Type Department Care Team (Latest Contact Info) Description 05/26/2023 11:07 AM MARINE DRILLER - 05/26/2023 11:59 PM MARINE DRILLER Hospital Encounter [facility] Advanced [facility] Advanced Medicine ([facility]) [facility] [place] [address] Hodgkin lymphoma, unspecified Hodgkin lymphoma type, unspecified [...] on file Legal Sex Male 10:05 AM MARINE DRILLER Gender Identity Male 05/30/2023 9:41 PM MARINE DRILLER Sexual Orientation Straight 05/30/2023 9: 41 PM MARINE DRILLER documented as of this encounter Medications at [...] hours as needed for pain 45 tablet 06/16/[address] (PROTONIX) 40 mg EC [...] documented in this encounter Plan of Treatment Pending Results Name Type Priority Associated Diagnoses Date /Time TSH Lab STAT 05/26/2023 9:4 1 AM MARINE DRILLER Scheduled Orders Name Type Priority Associated Diagnoses Orde r Schedule TSH Lab STAT Once for 1 Occ urrences starting 05/26/2023 until 05/26/2023 documented as of this encounter Procedures Procedure Name Priority Date/Time Associated Diagnosis Comments EGFR STAT 05/26/2023 9:41 AM MARINE DRILLER Hodgkin lymphoma, unspecified Hodgkin lymphoma type, unspecified body region (HCC) Prevention of chemotherapy-induce d neutropenia DIFFERENTIAL AUTO STAT 05/26/2023 9:4 1 AM MARINE DRILLER Hodgkin lymphoma, unspecified Hodgkin lymphoma type, unspecified body region (HCC) Prevention of chemotherapy-induce d neutropenia CBC WITH AUTO DIFFERENTIAL STAT 05/26/2023 9:41 AM MARINE DRILLER Hodgkin lymphoma, unspecified Hodgkin lymphoma type, unspecified body region (HCC) Prevention of chemotherapy-induce d neutropenia TSH STAT 05/26/2023 9:41 AM MARINE DRILLER Hodgkin lymphoma, unspecified Hodgkin lymphoma type, unspecified body region (HCC) Prevention of chemotherapy-induce d neutropenia COMPREHENSIVE METABOLIC PANEL STAT 05/26/2023 9:41 AM MARINE DRILLER Hodgkin lymphoma, unspecified Hodgkin lymphoma type, unspecified body region (HCC) Prevention of chemotherapy-induce d neutropenia ERYTHROCYTE SEDIMENTATION RATE Routine 05/26/2023 9:41 AM MARINE DRILLER Hodgkin lymphoma, unspecified Hodgkin lymphoma type, unspecified body region (HCC) Prevention of chemotherapy-induce d neutropenia documented in this encounter Results * TSH (05/26/2023 9:41 AM MARINE DRILLER) Thyroid Stimulating Hormone 0.36 0.30 - 4.20 mcIUnit/mL MICHAELA SANABRIA Blood 05/26/2023 9:41 AM MARINE DRILLER 05/26/2023 10:46 AM MARINE DRILLER us Rebeka Woods MD LAB BLOOD ORDERABLES Final Resul t MICHAELA SANABRIA [facility] [place] [address] * eGFR (05/26/2023 9:41 AM MARINE DRILLER) eGFR >90 >=60 mL/min/1. 73 m2 MICHAELA BYRNE Comment: Interpretive Data Reference Interval Normal ?>/= [...] was last reviewed 2021. Testing performed by: [facility], [address] [place] [phone] Blood 05/26/2023 9:41 AM MARINE DRILLER 05/26/2023 9:43 AM MARINE DRILLER us Shasta Sena MD LAB BLOOD ORDERABLES Final Result MICHAELA SANABRIA [facility] [place] [address] * (ABNORMAL) Differential, auto (05/26/2023 9:41 AM MARINE DRILLER) Pathologist [facility] Neutrophil abs 8.1(H) 1.8 - 6.6 K/cumm [facility] Comment:Testing performed by : [facility], [address] [place] [phone] Lymphocyte abs 0.5(L) 1.2 - 3.3 K/cumm [facility] Comment:Testing performed by : [facility], [address] [place] [phone] Monocyte abs 0.9 0.2 - 1.2 K/cumm [facility] Comment:Testing performed by : [facility], [address] [place] [phone] Eosinophil abs 0.2 0.0 - 0.5 K/cumm [facility] Comment:Testing performed by : [facility], [address] [place] [phone] Basophil abs 0.0 0.0 - 0.2 K/cumm [facility] Comment:Testing performed by : [facility], [address] [place] [phone] Neutrophil pct 83.5 % [facility] Comment: Interpretive Data Percent cell count reference ranges are not reported, since discordance with absolute values may lead to misinterpretation of CBC data. Current Interpretive Data was last revised on 2017. Testing performed by: [facility], [address] [place] [phone] Lymphocyte pct 4.8 % [facility] Comment: Interpretive Data Percent cell count reference ranges are not reported, since discordance with absolute values may lead to misinterpretation of CBC data. Current Interpretive Data was last revised on 2017. Testing performed by: [facility], [address] [place] [phone] Monocyte pct 9.3 % [facility] Comment:Testing performed by : [facility], [address] [place] [phone] Eosinophil pct 2.1 % [facility] Comment:Testing performed by : [facility], [address] [place] [phone] Basophil pct 0.3 % [facility] Comment:Testing performed by : [facility], [address] [place] [phone] Blood 05/26/2023 9:41 AM MARINE DRILLER 05/26/2023 9:43 AM MARINE DRILLER us Shasta Sena MD LAB BLOOD ORDERABLES Final Result [facility] One [facility] [place] [address] * (ABNORMAL) CBC with auto differential (05/26/2023 9:41 AM MARINE DRILLER) WBC 9.7 3.8 - 9.8 K/cumm MICHAELA SANABRIA Comment:Testing performed by : [facility], [address] [place] [phone] Hgb 9.1(L) 13.8 - 17.2 g/dL MICHAELA SANABRIA Comment: Interpretive Data A reference range for this assay has not been established for patients with an unknown legal sex. Please refer to the laboratory test catalog for established sex-specific reference intervals. Current interpretive data was last revised on 2023. Testing performed by: [facility], [address] [place] [phone] Hct 28.5(L) 40.7 - 50.3 % MICHAELA SANABRIA Comment: Interpretive Data A reference range for this assay has not been established for patients with an unknown legal sex. Please refer to the laboratory test catalog for established sex-specific reference intervals. Current interpretive data was last revised on 2023. Testing performed by: [facility], [address] [place] [phone] Plt 320 140 - 440 K/cumm MICHAELA SANABRIA Comment:Testing performed by : [address] [phone] MPV 6.9 6.8 - 10.4 fL MICHAELA SANABRIA Comment:Testing performed by : [facility], [address] [place] [phone] RBC 3.69(L) 4.50 - 5.70 M/cumm MICHAELA SANABRIA Comment: Interpretive Data A reference range for this assay has not been established for patients with an unknown legal sex. Please refer to the laboratory test catalog for established sex-specific reference intervals. Current interpretive data was last revised on 2023. Testing performed by: [facility], [address] [place] [phone] MCV 77.4(L) 80.0 - 97.6 fL MICHAELA SANABRIA Comment:Testing performed by : [address] [phone] MCH 24.8(L) 26.7 - 33.7 pg MICHAELA SANABRIA Comment:Testing performed by : [facility], [address] [place] [phone] MCHC 32.0(L) 32.7 - 35.5 g/dL MICHAELA SANABRIA Comment:Testing performed by : [address] [phone] RDW CV 27.3(H) 11.8 - 14.6 % MICHAELA SANABRIA Comment:Testing performed by : [facility], [address] [place] [phone] NRBC abs 0.01 0.00 - 0.01 K/cumm MIC[facility]ELA [facility] Comment:Testing performed by : [address] [phone] Blood 05/26/2023 9:41 AM MARINE DRILLER 05/26/2023 9:43 AM MARINE DRILLER us Shasta Sena MD LAB BLOOD ORDERABLES Final Result MICHAELA SANABRIA One [facility] [place] [address] * (ABNORMAL) Comprehensive metabolic panel (05/26/2023 9:41 AM MARINE DRILLER) Sodium 144 135 - 145 mmol/L MICHAELA SANABRIA Comment:Testing performed by : [address] [phone] Potassium, pl 4.1 3.3 - 4.9 mmol/L MICHAELA SANABRIA Comment:Testing performed by : [facility], [address] [place] [phone] Chloride 107 97 - 110 mmol/L [facility] Comment:Testing performed by : [facility], [address] [place] [phone] CO2 30 22 - 32 mmol/L [facility] Comment:Testing performed by : [facility], [address] [place] [phone] Anion gap 7 2 - 15 mmol/L [facility] Comment:Testing performed by : [facility], [address] [place] [phone] BUN 9 6 - 25 mg/dL [facility] Comment:Testing performed by : [facility], [address] [place] [phone] Creatinine 0.66(L) 0.80 - 1.30 mg/dL [facility] Comment:Testing performed by : [facility], [address] [place] [phone] Glucose 100 70 - 199 mg/dL CERNER [...] was last revised 2022. Testing performed by: [facility], [address] [place] [phone] Calcium 9.5 8.5 - 10.3 mg/dL [facility] Comment:Testing performed by : [facility], [address] [place] [phone] Bilirubin, total 0.2 0.1 - 1.2 mg/dL [facility] Comment:Testing performed by : [facility], [address] [place] [phone] Protein, pl 6.9 6.5 - 8.5 g/dL [facility] Comment:Testing performed by : [facility], [address] [place] [phone] Albumin 4.0 3.5 - 5.0 g/dL [facility] Comment:Testing performed by : [facility], [address] [place] [phone] Alk phos 224(H) 40 - 130 Units/L [facility] Comment:Testing performed by : [facility], [address] [place] [phone] ALT 29 7 - 55 Units/L [facility] Comment:Testing performed by : [facility], [address] [place] [phone] AST 18 10 - 50 Units/L [facility] Comment:Testing performed by : [facility], [address] [place] [phone] Blood 05/26/2023 9:41 AM MARINE DRILLER 05/26/2023 9:43 AM MARINE DRILLER us Shasta Sena MD LAB BLOOD ORDERABLES Final Result Performing Organization Address City/[facility]/ZIP Co de Phone Number [facility] [place] [address] * (ABNORMAL) Erythrocyte sedimentation rate (05/26/2023 9:41 AM MARINE DRILLER) Erythrocyte sedimentation rate 22(H) 1 - 15 mm/hr [facility] Blood 05/26/2023 9:41 AM MARINE DRILLER 05/26/2023 10:00 AM MARINE DRILLER us Shasta Sena MD LAB BLOOD ORDERABLES Final Result Performing Organization Address [facility] Co de Phone Number [facility] [place] [address] documented in this encounter Visit Diagnoses Diagnosis Hodgkin lymphoma, unspecified Hodgkin lymphoma type, unspecified body region (HCC) Prevention of chemotherapy-induced neutropenia documented in this encounter Care Teams Farm Machinery Erector Relationship Specialty Start Date End Date No, Physician PCP - General 05/06/23 Shasta Sena MD [facility] [address] [place] [address] Medical Oncologist/Oracle Soa Developer Medical Oncology 05/05/23 documented as of this encounter
--- OUTSIDE RECORDS SUMMARY | 2024-06-25 06:53 | XMS_ITS | Encounter Summary ---
Author Organization [facility] Address [address] [place] [address] Phone Care Team Providers Care Custom Bookbinder Name Role Phone Shasta Sena MD Unavailable [phone] No, Physician Primary Care Provider [phone] Reason for Referral * MRI/CAT/PET Scan (Routine) - Closed Specialty Diagnoses / Procedures Referred By Devora guzman Referred To Contact Radiology Diagnoses Hodgkin lymphoma, unspecified Hodgkin lymphoma type, unspecified body region (HCC) Procedures PET/CT FDG Skull to Thigh Abigail Sapp NP [address] DIV MEDICAL ONCOLOGY, [address] [place] [address] Phone: tel: fax: [address] [address] Referral ID Status Reason Start Date Expiration Date Visits Re quested Visits Authorized [id number] Closed 05/07/2023 06/05/2024 2 2 Reason for Visit * Oncology (Routine) - Canceled Specialty Diagnoses / Procedures Referred By Devora guzman Referred To Contact Oncology Diagnoses Non-Hodgkin's lymphoma, unspecified body region, unspecified non-Hodgkin lymphoma type (HCC) Referral, Self Shasta Sena MD [address] [facility] DIV IM MEDICAL ONCOLOGY, [address] [place] [address] Phone: tel: fax: Referral ID Status Reason Start Date Expiration Date Visits Requested Visits Authorized [id number] Canceled Specialty Services Required 04/27/2023 07/04/2023 99 99 Encounter Details Date Type Department Care Team (Late st Contact Info) Description 05/13/2023 1:00 PM PURCHASING BUYER Office Visit [facility] Oncology [address] [facility] 7th [place] [id number] Shasta Sena MD [address] [facility] [address] [place] [address] Hodgkin lymphoma, unspecified Hodgkin lymphoma type, unspecified [...] on file Legal Sex Male 10:05 AM PURCHASING BUYER Gender Identity Male 05/30/2023 9:41 PM PURCHASING BUYER Sexual Orientation Straight 05/30/2023 9: 41 PM PURCHASING BUYER documented as of this encounter Last Filed Vital Signs Vital Sign Reading Time Taken Comments Blood Pressure 142/79 05/13/2023 12:09 PM PURCHASING BUYER Pulse 71 05/13/2023 12:09 PM PURCHASING BUYER Temperature - - Respiratory Rate 18 05/13/2023 12:07 PM PURCHASING BUYER Oxygen Saturation 97% 05/13/2023 12:09 PM PURCHASING BUYER Inhaled Oxygen Concentration - - Weight 76.2 kg (168 lb) 05/13/2023 12:07 PM PURCHASING BUYER Height - - Body Mass Index 27.12 04/28/2023 11:20 AM CDT documented in this encounter Consult Notes * Shasta Sena MD - 05/13/2023 12:00 AM CST May 13, 2023 AMBROCIO ASHFORD MD [address] [address] [place] [address] RE: CRYSTAL ROYAL : [address] Ashford and Dr. Lopez: I saw your patient Crystal Royal in the [facility] for a consultation regarding his primary refractory Hodgkin lymphoma. Although his history is well known to you, please allow me to repeat it for my own records. DIAGNOSIS: Classical Hodgkin lymphoma, diagnosed on right [...] Hospital admission 04/24/2023 - 05/05/2023, initially at [facility] and then transferred to [facility]. 6. Left inguinal lymph node biopsy, [...] negative. 10. Pembro-GVD, initiated 05/04/2023. INTERVAL HISTORY: This 33-year-old gentleman presents to the [facility] for continued treatment of his primary refractory Hodgkin lymphoma. I first met him a couple of weeks [facility] for rapidly progressive refractory Hodgkin lymphoma. During his hospitalization, he had numerous imaging and diagnostic tests as outlined above. In summary, he was initially diagnosed with stage IV Hodgkin lymphoma in April 2022 and received 2 cycles of ABVD with a mixed response. He then received 3 cycles of escalated BEACOPP, completing this in November 2022. This was discontinued when he had a life- threatening infection with pneumonia and sepsis and required intubation. He has very difficult social circumstances and I believe was temporarily lost to follow-up after hisinitial ABVD and then again after discharge from the hospital in December following his BEACOPP. He re-presented to the local hospital in April and had diffuse lymphadenopathy at that time. After beingtransferred to [place] with an extensive workup, he eventually received cycle 1, day 1 of pembro-GVDand is here today for cycle 1, day 8. His initial chemo was given on 05/04/2023. Since discharge, he has had severe neck pain despite MS Contin and OxyContin and gabapentin. He has not noted any fevers. He came to the appointment alone today and was transported by a service that was arranged by thecial workers. SOCIAL HISTORY: The patient lives in [place], [place], with his mother, Blanche. She did not accompany him to the office today. The patient seems to have a learning disability, but this is not outlined anywhere in his chart. He does not work. He does not drive, and his mother also does not drive. They have no transportation. HABITS: He smokes a few drags of cigarettes daily . ALLERGIES: No known drug allergies. MEDICATIONS: 1. Acyclovir 400 mg b.i.d. 2. Cymbalta 60 mg daily. 3. Gabapentin 600 mg t.i.d. 4. MS Contin 15 mg b.i.d. 5. Oxycodone 15 mg p.r.n. 6. Naproxen 500 mg b.i.d. 7. Pantoprazole 40 mg extended-release daily. PHYSICAL EXAMINATION: General: A young man who was uncomfortable with neck pain. Performance Status: 1. Vital Signs: Weight 76.2 kg, blood pressure 142/79, pulse 71, O2 sat 97%. Lungs: Decreased breath sounds at the right base. Nodes: He has a 2.5 x 2.5 cm mobile medial left supraclavicular node. I cannot appreciate any otherpalpable peripheral adenopathy. Abdomen: No hepatosplenomegaly or palpable masses. Extremities: No edema. LABORATORIES: WBC 2.8, hemoglobin 7.1, hematocrit 21.9, platelets 208, ANC 2.1, ALC 0.2. Chemistry is within normal limits including an alk phos of 126 that had been 293 in the hospital. ESR is still 83, which is the same as it was prior to initiating any chemotherapy. RADIOGRAPHS: PET-CT from 04/30/2023 as described above. IMPRESSION AND PLAN: 1. Primary refractory Hodgkin lymphoma. This 33-year-old gentleman with very difficult social circumstances was transferred to our hospital in late April for treatment of his primary refractory Hodgkin lymphoma after having failed ABVD and BEACOPP. He received cycle 1, day 1 of pembro-GVD on 05/04/2023 and is here today for cycle 1, day 8. He came to the office alone and had to be picked up by his arranged transportation by 5 p.m. at the latest. We were able to barely squeeze in his chemotherapy prior to his pickup. He was unable to receive any transfusions. Unfortunately, I am having a very difficult time trying to figure out how this gentleman can receive appropriate treatment with his inability to come to [place]. Based on his social circumstances, it seems unlikely that he wouldever be a candidate for a stem cell transplant, as he would need extensive social support and ability to travel back and forth to [place], and this seems extremely unlikely. His mother called my nurse practitioner after the appointment and indicated that Crystal was supposedto ask us where he could be treated locally because [place] is too hard . They also said that [place] is too hard and he wants to receive treatment at [facility] which is 8 miles from his home. He was previously following with Dr. Ambrocio Ashford, who I believe sees pts one day per week at the [place] office. I will call Dr. Ashford and review the issues. I think our goal should be to try and get Crystal into a remission with the pembro- GVD locally, administering a full 6 cycles if feasible. Again, I do not believe he will ever be a candidate for a stem cell transplant. He has never had brentuximab vedotin, which might also be an option in the future. Crystal should have a repeat PET-CT after 2 cycles of pembro-GVD. I am happy to speak with his treating physicians at that time if he is not responding. 2. Severe anemia. The patient was unable to stay today to receive transfusions. We have called his mother to try and set these up locally. Hopefully, this can be done in [place]. 3. Severe pain. The patient is currently on MS Contin 15 mg b.i.d. and was given an oxycodone prescription when he left the hospital, and I have refilled this. He will need improved pain control. I am sorry I could not be of more help, but his mother has indicated that it is not feasible for Crystal to travel beyond [place] for his care. Please feel free to give me a call if you have questionsor concerns regarding my evaluation. Sincerely, ELECTRONICALLY SIGNED - 05/26/2023 06:46 AM Shasta Sena M.D. mysql database administrator [facility] Chair in Medical Oncology MELBA/regan cc: CARLA LOPEZ [place] [address] / Ambrocio Ashford MD [facility] [address] / HASING BUYER documented in this encounter Plan of Treatment Not on file documented as of this encounter Results * PET/CT FDG Skull to Thigh (06/16/2023 1:00 PM PURCHASING BUYER) Anatomical Region Laterality Modality N/A Positron Emissio n Tomography (PET) 06/16/2023 3:04 PM PURCHASING BUYER Impressions 06/16/2023 4:52 PM PURCHASING BUYER 1. ?? Interval treatment response as evidenced [...] it. Electronically signed by: Remington Young MD Narrative 06/16/2023 4:52 PM PURCHASING BUYER EXAMINATION: ??TUMOR FDG-PET/CT IMAGING DATE OF STUDY: 06/16/2023 SCANNER: [facility] RADIOPHARMACEUTICAL: 12.2 mCi F-18 Fluorodeoxyglucose (FDG) i.v. [...] obtained. The study was interpreted on the [employer] workstation. The mean liver SUV (reported for senior quality methods specialist purposes) is 1.5. ?? The total scanned [...] FDG-PET/CT IMAGING DATE OF STUDY: 06/16/2023 SCANNER: [facility] RADIOPHARMACEUTICAL: 12.2 mCi F-18 Fluorodeoxyglucose (FDG) i.v. [...] obtained. The study was interpreted on the [employer] workstation. The mean liver SUV (reported for senior quality methods specialist purposes) is 1.5. The total scanned area [...] NP IMG PET PROCEDURES Final Re sult * (ABNORMAL) Erythrocyte sedimentation rate (05/13/2023 11:50 AM PURCHASING BUYER) Erythrocyte sedimentation rate 83(H) 1 - 15 mm/hr MICHAELA BYRNE Blood 05/13/2023 11:5 0 AM PURCHASING BUYER 05/13/2023 12:42 PM PURCHASING BUYER Abigail Sapp NP LAB BLOOD ORDERABLES Final Result MICHAELA SANABRIAH [facility] Department [place] [address] documented in this encounter Visit Diagnoses Diagnosis Hodgkin lymphoma, unspecified Hodgkin lymphoma type, unspecified body region (HCC)- Primary Prevention of chemotherapy-induced neutropenia Hodgkin lymphoma, unspecified Hodgkin lymphoma type, unspecified body region (HCC) documented in this encounter Historical Medications * This list may reflect changes made after this encounter. naproxen (NAPROSYN) 500 mg tablet Take 1 tablet (500 mg total) by mouth 2 (two) times a day with meals 04/13/2023 HYDROcodone-acet aminophen (NORCO) 10-325 mg per tablet Take 1 tablet by mouth every 4 (four) hours as needed 04/21/2023 06/21/2023 dexAMETHasone (DECADRON) 4 mg/mL injection Infuse 1 mL (4 mg total) into a venous catheter every 6 (six) hours 04/28/2023 06/21/2023 added in this encounter Orders Appointment Requests Count Last Ordered Date Fi rst Ordered Date ONCBCN CLINIC APPOINTMENT REQUEST 4 023 05/13/2023 ONCBCN LAB APPOINTMENT 3 06/16/202305/26 ONCBCN RETURN CHEMO 3HRS 2 06/16/2023 ONCBCN RETURN CHEMO 2.5HRS 1 06/02/2023 documented in this encounter Care Teams Custom Bookbinder Relationship Specialty Start Date End Date No, Physician PCP - General 05/06/23 Shasta Sena MD [address] [place] [address] [address] [place] [address] Medical Oncologist/Vegetable Sorter Medical Oncology 05/05/23 documented as of this encounter
--- OUTSIDE RECORDS SUMMARY | 2024-06-25 06:53 | XMS_ITS | Encounter Summary ---
Author Organization [facility] Address [address] [place] [address] Phone Care Team Providers Care Jalousies Installer Name Role Phone Shasta Sena MD Unavailable [phone] No, Physician Primary Care Provider [phone] Reason for Visit * Episode Based Medications (Routine) - Closed Specialty Diagnoses / Procedures Referred By Devora guzman Referred To Contact Oncology Diagnoses Hodgkin lymphoma, unspecified Hodgkin lymphoma type, unspecified body region (HCC) Prevention of chemotherapy-induced neutropenia [address] [address] Phone: tel: fax: [facility] Oncology [address] [place] [address] 7th [place] [address] Phone: tel: Referral ID Status Reason Start Date Expiration Date Visits Re quested Visits Authorized [id number] Closed 05/04/2023 07/21/2023 1 8 Encounter Details Date Type Department Care Team (Latest Contact Info) Description 06/16/2023 9:15 AM JUKEBOX COIN COLLECTOR Clinical Support [facility] Oncology [address] [place] [address] [facility] 7th [place] [address] [place] [address] Hodgkin lymphoma, unspecified Hodgkin lymphoma [...] on file Legal Sex Male 10:05 AM JUKEBOX COIN COLLECTOR Gender Identity Male 05/30/2023 9:41 PM JUKEBOX COIN COLLECTOR Sexual Orientation Straight 05/30/2023 9: 41 PM JUKEBOX COIN COLLECTOR documented as of this encounter Plan of Treatment Not on file documented as of this encounter Visit Diagnoses Diagnosis Hodgkin lymphoma, unspecified Hodgkin lymphoma type, unspecified body region (HCC) Prevention of chemotherapy-induced neutropenia documented in this encounter Orders Appointment Requests Count Last Ordered Date Fi rst Ordered Date ONCBCN LAB APPOINTMENT 1 06/16/2023 documented in this encounter Care Teams Jalousies Installer Relationship Specialty Start Date End Date No, Physician PCP - General 05/06/23 Shasta Sena MD [address] [address] Medical Oncologist/Traffic Investigator Medical Oncology 05/05/23 documented as of this encounter
--- OUTSIDE RECORDS SUMMARY | 2024-06-25 06:53 | XMS_ITS | Encounter Summary ---
Author Organization [facility] Address [address] [place] [address] Phone Care Team Providers Care Internet Sales Manager Name Role Phone Shasta Sena MD Unavailable [phone] No, Physician Primary Care Provider [phone] Reason for Visit * Oncology (Routine) - Canceled Specialty Diagnoses / Procedures Referred By Devora guzman Referred To Contact Oncology Diagnoses Non-Hodgkin's lymphoma, unspecified body region, unspecified non-Hodgkin lymphoma type (HCC) Referral, Self Shasta Sena MD [address] [facility] MEDICAL ONCOLOGY, [address] [place] [address] Phone: tel: fax: Referral ID Status Reason Start Date Expiration Date Visits Requested Visits Authorized [id number] Canceled Specialty Services Required 04/27/2023 07/04/2023 99 99 Encounter Details Date Type Department Care Team (Late st Contact Info) Description 06/02/2023 11:15 AM ACTING PROFESSOR Office Visit [facility] Oncology [address] [facility] 7th [place] [address] [place] [address] Shasta Sena MD [address] [facility] [address] [place] [address] 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 [...] on file Legal Sex Male 10:05 AM ACTING PROFESSOR Gender Identity Male 05/30/2023 9:41 PM ACTING PROFESSOR Sexual Orientation Straight 05/30/2023 9: 41 PM ACTING PROFESSOR documented as of this encounter Last Filed Vital Signs Vital Sign Reading Time Taken Comments Blood Pressure 134/75 06/02/2023 9:52 AM ACTING PROFESSOR Pulse 112 06/02/2023 9:52 AM ACTING PROFESSOR Temperature 36.4 ??C (97.6 ??F) 06/02/2023 9:49 AM CS T Respiratory Rate 18 06/02/2023 9:49 AM ACTING PROFESSOR Oxygen Saturation 98% 06/02/2023 9:52 AM ACTING PROFESSOR Inhaled Oxygen Concentration - - Weight 66.9 kg (147 lb 6.4 oz) 06/02/2023 9:49 A M ACTING PROFESSOR Height - - Body Mass Index 23.79 04/28/2023 11:20 AM CDT documented in this encounter Progress Notes * Abigail Sapp NP - 06/02/2023 12:00 AM CST PATIENT NAME: CRYSTAL ROYAL : 1990 ARTURO: 06/02/2023 DIAGNOSIS: Classical Hodgkin lymphoma, diagnosed on right [...] Hospital admission 04/24/2023 - 05/05/2023, initially at [facility] and then transferred to [facility]. 6. Left inguinal lymph node biopsy, 04/27/2023, [...] negative. 10. Pembro-GVD, initiated 05/04/2023. INTERVAL HISTORY: Mr. Royal returns to [facility] for continued treatment of his Hodgkin's lymphoma. Hewas last seen in clinic on 05/26/2023. Since that time, he has been doing okay. He did notice scrotal discomfort on May 31, and his mom called our office. He reports it as just irritation that has now resolved. He is still taking oxycodone and morphine for his pain, about 2 a day of each. He denies fevers, infections, night sweats, adenopathy, shortness of breath, chest pain, abdominal pain or bloating, changes to bowel or bladder habits, or lower extremity edema. PHYSICAL EXAMINATION: Performance status: 0. General: This is a well-appearing gentleman, resting comfortably. Vital Signs: Weight is 66.9 kg, blood pressure 134/75, pulse 112, respirations 18, temperature 36.4, oxygen 98%. Lungs: Clear to auscultation. Heart: Regular rate and rhythm. Nodes: He has a mobile 1 cm left supraclavicular lymph node. No other palpable lymphadenopathy. Abdomen: Soft, nontender. No hepatosplenomegaly. Extremities: No edema. Skin: Without rashes or lesions. Neurologic: Strength is 5/5 throughout. LABORATORY DATA: WBC 4.2, hemoglobin 9.1, platelets 234. Chemistry is unremarkable. ESR 25. IMPRESSION/PLAN: 1. Primary refractory Hodgkin's lymphoma. This is a 33-year-old gentleman who has now completed 1 cycle of pembro/GVD, as well as day 1 of cycle 2. He is tolerating the treatment well. We will proceed with day 8 today. We will plan to see him back in 3 weeks. At that time, he will be due for a PET scan. If his PET scan shows a CR, we will speak to his local oncologist about setting up the additional cycles of pembro/GVD at home, as it is very difficult for the patient to get here to our office,but he will come back in 2 weeks for the PET scan. 2. Pain control. The patient continues to take MS Contin 50 mg twice a day, and is taking about 1 to 2 oxycodone each day. 3. Drug use. Crystal admits to using methamphetamines this morning, but reports that he is planning to quit and has given away all of his drug paraphernalia. 4. Poor dentition. 5. Social circumstances. As outlined in previous notes, the patient has had difficulty making transportation to [place]. He is using a ride service through Medicaid. We will plan to administer 3 cycles here and then 3 cycles locally. This patient was discussed with Dr. Shasta Sena, who formulated the plan of care. ELECTRONICALLY SIGNED - 06/04/2023 12:13 PM Abigail Sapp NP Nurse Practitioner In collaboration with Shasta Sena M.D. My signature confirms I have reviewed the note and agree with the assessment and plan of Abigail Sapp NP ELECTRONICALLY SIGNED - 06/10/2023 06:59 AM Shasta Sena M.D. electrical electronics technician [facility] Chair in Medical Oncology AP/NB/ps cc: CARLA LOPEZ MD [address] [place] [id number] / RICHARD SHAH MD [address] [place] [id number] / NG PROFESSOR documented in this encounter Plan of Treatment Not on file documented as of this encounter Results * (ABNORMAL) Erythrocyte sedimentation rate (06/02/2023 9:40 AM ACTING PROFESSOR) Erythrocyte sedimentation rate 25(H) 1 - 15 mm/hr MICHAELA [facility] Blood 06/02/2023 9:40 AM ACTING PROFESSOR 06/02/2023 10:05 AM ACTING PROFESSOR us Shasta Sena MD LAB BLOOD ORDERABLES Final Result Performing Organization Address City/State/[facility] Co al Phone Number [facility] Department [place] [address] documented in this encounter Visit Diagnoses Diagnosis 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
--- OUTSIDE RECORDS SUMMARY | 2024-06-25 06:53 | XMS_ITS | Encounter Summary ---
Author Organization [facility] Address [address] [place] [address] Phone Care Team Providers Care Retail Assistant Manager Name Role Phone Shasta Sena MD Unavailable [phone] No, Physician Primary Care Provider [phone] Reason for Visit * Episode Based Medications (Routine) - Closed Specialty Diagnoses / Procedures Referred By Devora guzman Referred To Contact Oncology Diagnoses Hodgkin lymphoma, unspecified Hodgkin lymphoma type, unspecified body region (HCC) Prevention of chemotherapy-induced neutropenia [address] [address] Phone: tel: fax: [facility] Oncology [address] [place] [address] [place] [address] Phone: tel: Referral ID Status Reason Start Date Expiration Date Visits Re quested Visits Authorized [id number] Closed 05/04/2023 07/21/2023 1 8 Encounter Details Date Type Department Care Team (Late st Contact Info) Description 06/16/2023 1:00 PM SMOKING PIPE LINER Infusion [facility] Oncology [address] [place] [address] [place] [address] Prevention of chemotherapy-induced neutropenia (Primary [...] on file Legal Sex Male 10:05 AM SMOKING PIPE LINER Gender Identity Male 05/30/2023 9:41 PM SMOKING PIPE LINER Sexual Orientation Straight 05/30/2023 9: 41 PM SMOKING PIPE LINER documented as of this encounter Nursing Notes * Milly Lamb RN - 06/16/2023 1:00 PM CST Oncology Nursing Note [facility] ON[facility] Kedar Capone is a 33 y.o. male who presents for treatment cycle 3, day 1 of Pembrolizumab+GVD. Pre-treatment Nursing Assessment Nursing Assessment LOC: Alert, Awake Fatigue: Occassional Any falls since your last visit?: No Orientation: Oriented x4 Behavior: Calm Speech: Clear Language: No aphasia Vision: At baseline Peripheral Neuropathy: Yes (in fingers) Shortness of Breath?: No Appetite: Good Nausea/Vomiting: No Diarrhea: No Constipation: No Last BM Date: 06/14/23 Swelling: No Additional Notes: Pt late for all appointments and was not going to have chemo done in time to get his med car ride home at 1700. Domonique LARA contacted and spoke with mom. Pt's cousin is coming from [place] and patient given a gas card to help with travel. Ride is supposed to be here at 1900. BP: 129/77 Temp: 36.4 ??C (97.6 ??F) Temp src: Transdermal Pulse: 92 Resp: 18 SpO2: 100 % Weight: 68.3 kg (150 lb 9.6 oz) Pain Score: 10 - Worst possible pain Treatment Patient: met treatment parameters Pre blood return: Brisk Kedar Capone is tolerating treatment well. Report to Vera Mata RN ING PIPE LINER * Vera Mata RN - 06/16/2023 1:00 PM CST Assumed care of pt from Milly NGUYỄN. Pt finished his infusion without incident. Pt port was de-access without incident. Port flushed with 20cc NS. Pt was discharged in stable condition. Pt advised to call his nurse coordinator if he has any concerns. ING PIPE LINER documented in this encounter Plan of Treatment [...] mL/hr, Administer over 20 Minutes, Once, On Wed06/16/23 at 1545, For 1 doseIndications:Hodgkin lymphoma, unspecified Hodgkin lymphoma type, unspecified body region (HCC),Prevention of chemotherapy-induced neutropenia New Bag 06/16/2023 3:37 PM SMOKING PIPE LINER 10 mg 153 mL/hr dextrose 5% infusion 30 mL/hr, intravenous, Continuous, Starting on Wed06/16/23 at 1545, 30 mL/hr while doxil (liposomal doxorubicin) is infusing Flush line with 10 - 20 mL before and after doxil (liposomal doxorubicin) infusionIndications:Hodgkin lymphoma, unspecified Hodgkin lymphoma type, unspecified body region (HCC),Prevention of chemotherapy-induced neutropenia New Bag 06/16/2023 3:34 PM SMOKING PIPE LINER 30 mL/hr 30 mL/hr DOXOrubicin liposomal (DOXIL) 18.2 mg in dextrose 5% 250 mL IVPB 18.2 mg (10 mg/m2 ? 1.82 m2 Treatment Plan BSA from Recorded weight), intravenous, Once, On Wed06/16/23 at 1730, For 1 dose, FIRST DOSE: - Infuse at 1 mg/min (no less than 60 minutes) SUBSEQUENT DOSES: - If NO previous infusion reaction administer over 60 minutes Irritant. Not to be administered as IV push. Flush line with [id number]:Hodgkin lymphoma, unspecified Hodgkin lymphoma type, unspecified body region (HCC),Prevention of chemotherapy-induced neutropenia New Bag 06/16/2023 5:37 PM SMOKING PIPE LINER 18.2 mg 259.1 mL/hr gemCITabine (GEMZAR) 1,820 mg in sodium chloride 0.9% 250 mL IVPB 1,820 mg (1,000 mg/m2 ? 1.82 m2 Treatment Plan BSA from Recorded weight), intravenous, at 536.4 mL/hr, Administer over 30 Minutes, Once, On Wed06/16/23 at 1700, For 1 doseIndications:Hodgkin lymphoma, unspecified Hodgkin lymphoma type, unspecified body region (HCC),Prevention of chemotherapy-induced neutropenia New Bag 06/16/2023 5:02 PM SMOKING PIPE LINER 1,820 mg 536.4 mL/hr ondansetron (ZOFRAN) tablet 8 mg 8 mg, oral, Once, On Wed06/16/23 at 1545, For 1 doseIndications:Hodgkin lymphoma, unspecified Hodgkin lymphoma type, unspecified body region (HCC),Prevention of chemotherapy-induced neutropenia Given 06/16/2023 3:34 PM SMOKING PIPE LINER 8 mg pembrolizumab (KEYTRUDA) 200 mg in sodium chloride 0.9% 100 mL 200 mg, intravenous, at 216 mL/hr, Administer over 30 Minutes, Once, On Wed06/16/23 at 1615, For 1 dose, Use 0.2-5 micron filterIndications:Hodgkin lymphoma, unspecified Hodgkin lymphoma type, unspecified body region (HCC),Prevention of chemotherapy-induced neutropenia New Bag 06/16/2023 4:06 PM SMOKING PIPE LINER 200 mg 216 mL/hr vinorelbine (NAVELBINE) 36 mg in sodium chloride 0.9% 50 mL IVPB 36 mg (rounded from 36.4 mg = 20 mg/m2 ? 1.82 m2 Treatment Plan BSA from Recorded weight), intravenous, at 321.6 mL/hr, Administer over 10 Minutes, Once, On Wed06/16/23 at 1645, For 1 dose, Vesicant - For IV use only. Fatal if given intrathecallyIndications:Ho dgkin lymphoma, unspecified Hodgkin lymphoma type, unspecified body region (HCC),Prevention of chemotherapy-induced neutropenia New Bag 06/16/2023 4:46 PM SMOKING PIPE LINER 36 mg 321.6 mL/hr documented in this encounter Orders Nursing Count Last Ordered Date First Orde red Date OK TO TREAT COSIGN ORDER 1 06/16/2023 ONCBCN NURSING COMMUNICATION [id number] 1 06/16 ONCBCN TREATMENT PARAMETERS 1 1 06/16/2023 Appointment Requests Count Last Ordered Date Fi rst Ordered Date ONCBCN RETURN CHEMO 3HRS 1 06/16/2023 documented in this encounter Care Teams Retail Assistant Manager Relationship Specialty Start Date End Date No, Physician PCP - General 05/06/23 Shasta Sena MD [address] [facility] [address] [place] [address] Medical Oncologist/Rehab Nurse Medical Oncology 05/05/23 documented as of this encounter
--- OUTSIDE RECORDS SUMMARY | 2024-06-25 06:54 | XMS_ITS | Encounter Summary ---
Author Organization [facility] Address [address] [place] [address] Phone Care Team Providers Care Manager Fleet Name Role Phone Shasta Sena MD Unavailable [phone] No, Physician Primary Care Provider [phone] Encounter Details Date Type Department Care Team (Late st Contact Info) Description 05/11/2023 Telephone [facility] Ophthalmology [address] [place] [address] 1st [place] [address] Raeann Rothman MD [address] [place] [address] Social History Tobacco Use Types Packs/Day Years [...] on file Legal Sex Male 10:05 AM COLLET GLUER Gender Identity Male 05/30/2023 9:41 PM COLLET GLUER Sexual Orientation Straight 05/30/2023 9: 41 PM COLLET GLUER documented as of this encounter Miscellaneous Notes * Telephone Encounter - Daxa Aggarwal - 05/12/2023 10:31 AM CST Pt is scheduled ET GLUER * Telephone Encounter - Raeann Rothman MD - 05/11/2023 3:05 PM COLLET GLUER 4 weeks UES SID ET GLUER documented in this encounter Plan of Treatment Not on file documented as of this encounter Visit Diagnoses Not on filedocumented in this encounter Care Teams Manager Fleet Relationship Specialty Start Date End Date No, Physician PCP - General 05/06/23 Shasta Sena MD [address] [facility] [address] [place] [id number] Medical Oncologist/Developer Relations Manager Medical Oncology 05/05/23 documented as of this encounter
--- OUTSIDE RECORDS SUMMARY | 2024-06-25 06:54 | XMS_ITS | Encounter Summary ---
Author Organization [facility] Address [address] [place] [address] Care Team Providers Care Rehabilitation Program Coordinator Name Role Phone Shasta Sena MD Unavailable [phone] No, Physician Primary Care Provider [phone] Encounter Details Date Type Department Care Team (Latest Contact Info) Description 05/13/2023 9:55 AM LOCKSMITH APPRENTICE - 05/13/2023 11:59 PM LOCKSMITH APPRENTICE Hospital Encounter [facility] ([facility]) [facility] [place] [address] Hodgkin lymphoma, unspecified Hodgkin lymphoma type, unspecified [...] on file Legal Sex Male 10:05 AM LOCKSMITH APPRENTICE Gender Identity Male 05/30/2023 9:41 PM LOCKSMITH APPRENTICE Sexual Orientation Straight 05/30/2023 9: 41 PM LOCKSMITH APPRENTICE documented as of this encounter Medications at Time of Discharge albuterol HFA (PROVENTIL HFA,VENTOLIN HFA,PROAIR HFA) 90 mcg/actuation inhalerIndication s:Hodgkin lymphoma, unspecified Hodgkin lymphoma type, unspecified body region (HCC) Inhale 2 puffs once as needed for wheezing or shortness of breath (if Nebulizer not available) 1 each 05/05/[address] (CYMBALTA) 60 mg capsule Take 1 capsule (60 mg total) by mouth daily 30 capsule 11 05/06/2023 naproxen (NAPROSYN) 500 mg tablet Take 1 tablet (500 mg total) by mouth 2 (two) times a day with meals 04/13/2023 acyclovir (ZOVIRAX) 400 mg tabletIndications :Prophylaxis, Medical Take 1 tablet (400 mg total) by mouth 2 (two) times a day 60 tablet 05/05/2023 3 dexAMETHasone (DECADRON) 4 mg/mL injection Infuse 1 mL (4 mg total) into a venous catheter every 6 (six) hours 04/28/2023 3 filgrastim-sndz (Zarxio) 480 mcg/0.8 mL syringe Inject 0.8 mL (480 mcg total) under the skin daily 8 mL 1 05/12/2023 3 gabapentin (NEURONTIN) 600 mg tablet Take 1 tablet (600 mg total) by mouth 3 (three) times a day 90 tablet 11 05/05/2023 3 HYDROcodone-aceta minophen (NORCO) 10-325 mg per tablet Take 1 tablet by mouth every 4 (four) hours as needed 04/21/2023 3 lidocaine (ASPERCREME) 4 % adhesive patch,medicated Place 1 patch on the skin daily 30 patch 05/06/2023 3 morphine ER (MS CONTIN) 15 mg 12 hr tablet Take 3 tablets (45 mg total) by mouth 2 (two) times a day for 10 days 60 tablet 05/09/2023 3 naloxone (NARCAN) 4 mg/actuation spray,non-aerosol Administer 1 spray into affected nostril(s) as needed for opioid reversal Call 911. Administer a single spray in one nostril. Repeat every 3 minutes as needed if no or minimal response. 1 each 05/09/2023 3 nicotine (NICODERM CQ) [address] 1 patch on the skin daily 30 patch 05/05/2023 3 oxyCODONE (ROXICODONE) 15 mg immediate release tabletIndications :Pain Take 1 tablet (15 mg total) by mouth every 4 (four) hours as needed for pain for up to 10 days 45 tablet 05/05/[address] (PROTONIX) 40 mg EC tabletIndications :Stress Ulcer Prophylaxis Take 1 tablet (40 mg total) by mouth 2 (two) times a day 60 tablet 11 05/05/2023 3 polyethylene glycol (MIRALAX) 17 gram/dose bulk powderIndications :constipation Take 17 g by mouth daily 510 g 05/05/2023 3 senna-docusate (PERICOLACE) 8.6-50 mg Take 1 tablet by mouth 2 (two) times a day 60 tablet 05/05/2023 3 documented as of this encounter Discharge Disposition Disposition Code Departure Means Destination Discharge to home or self care documented in this encounter Plan of Treatment Not on file documented as of this encounter Procedures Procedure Name Priority Date/Time Associated Diagnosis Comments ERYTHROCYTE SEDIMENTATION RATE Routine 05/13/2023 11:50 AM LOCKSMITH APPRENTICE Hodgkin lymphoma, unspecified Hodgkin lymphoma type, unspecified body region (HCC) Prevention of chemotherapy-induce d neutropenia EGFR STAT 05/13/2023 11:45 AM LOCKSMITH APPRENTICE Hodgkin lymphoma, unspecified Hodgkin lymphoma type, unspecified body region (HCC) Prevention of chemotherapy-induce d neutropenia DIFFERENTIAL AUTO STAT 05/13/2023 11: 45 AM LOCKSMITH APPRENTICE Hodgkin lymphoma, unspecified Hodgkin lymphoma type, unspecified body region (HCC) Prevention of chemotherapy-induce d neutropenia CBC WITH AUTO DIFFERENTIAL STAT 05/13/2023 11:45 AM LOCKSMITH APPRENTICE Hodgkin lymphoma, unspecified Hodgkin lymphoma type, unspecified body region (HCC) Prevention of chemotherapy-induce d neutropenia COMPREHENSIVE METABOLIC PANEL STAT 05/13/2023 11:45 AM LOCKSMITH APPRENTICE Hodgkin lymphoma, unspecified Hodgkin lymphoma type, unspecified body region (HCC) Prevention of chemotherapy-induce d neutropenia documented in this encounter Results * (ABNORMAL) Erythrocyte sedimentation rate (05/13/2023 11:50 AM LOCKSMITH APPRENTICE) Erythrocyte sedimentation rate 83(H) 1 - 15 mm/hr [facility] Blood 05/13/2023 11:5 0 AM LOCKSMITH APPRENTICE 05/13/2023 12:42 PM LOCKSMITH APPRENTICE us Abigail Sapp NP LAB BLOOD ORDERABLES Final Result [facility] [place] [address] * eGFR (05/13/2023 11:45 AM LOCKSMITH APPRENTICE) eGFR >90 >=60 mL/min/1. 73 m2 [facility] Comment: Interpretive Data Reference Interval Normal ?>/= [...] of Race in Diagnosing Kidney Disease, JASN 202). The CKD-EPI equation should not be used for patients with unstable renal function and has not been validated in children and those over 70. Current interpretive data was last reviewed 2021. Testing performed by: [facility], [address] [place] [phone] Blood 05/13/2023 11:4 5 AM LOCKSMITH APPRENTICE 05/13/2023 11:47 AM LOCKSMITH APPRENTICE us Shasta Sena MD LAB BLOOD ORDERABLES Final Result [facility] [place] [address] * (ABNORMAL) Differential, auto (05/13/2023 11:45 AM LOCKSMITH APPRENTICE) Neutrophil abs 2.1 1.8 - 6.6 K/cumm [facility] Comment:Testing performed by : [facility], [address] [place] [phone] Lymphocyte abs 0.2(L) 1.2 - 3.3 K/cumm [facility] Comment:Testing performed by : [facility], [address] [place] [phone] Monocyte abs 0.3 0.2 - 1.2 K/cumm [facility] Comment:Testing performed by : [facility], [address] [place] [phone] Eosinophil abs 0.2 0.0 - 0.5 K/cumm [facility] Comment:Testing performed by : [facility], [address] [place] [phone] Basophil abs 0.0 0.0 - 0.2 K/cumm [facility] Comment:Testing performed by : [facility], [address] [place] [phone] Neutrophil pct 75.5 % [facility] Comment: Interpretive Data Percent cell count reference ranges are not reported, since discordance with absolute values may lead to misinterpretation of CBC data. Current Interpretive Data was last revised on 2017. Testing performed by: [facility], [address] [place] [phone] Lymphocyte pct 6.2 % [facility] Comment: Interpretive Data Percent cell count reference ranges are not reported, since discordance with absolute values may lead to misinterpretation of CBC data. Current Interpretive Data was last revised on 2017. Testing performed by: [facility], [address] [place] [phone] Monocyte pct 11.5 % [facility] Comment:Testing performed by : [facility], [address] [place] [phone] Eosinophil pct 6.3 % [facility] Comment:Testing performed by : [facility], [address] [place] [phone] Basophil pct 0.5 % [facility] Comment:Testing performed by : [address] [phone] Blood 05/13/2023 11:4 5 AM LOCKSMITH APPRENTICE 05/13/2023 11:47 AM LOCKSMITH APPRENTICE us Shasta Sena MD LAB BLOOD ORDERABLES Final Result [facility] [place] [address] * (ABNORMAL) CBC with auto differential (05/13/2023 11:45 AM LOCKSMITH APPRENTICE) WBC 2.8(L) 3.8 - 9.8 K/cumm [facility] Comment:Testing performed by : [address] [phone] Hgb 7.1(L) 13.8 - 17.2 g/dL [facility] Comment: Interpretive Data A reference range for this assay has not been established for patients with an unknown legal sex. Please refer to the laboratory test catalog for established sex-specific reference intervals. Current interpretive data was last revised on 2023. Testing performed by: [address] [phone] Hct 21.9(L) 40.7 - 50.3 % [facility] Comment: Interpretive Data A reference range for this assay has not been established for patients with an unknown legal sex. Please refer to the laboratory test catalog for established sex-specific reference intervals. Current interpretive data was last revised on 2023. Testing performed by: [facility], [address] [place], [place] [phone] Plt 208 140 - 440 K/cumm [facility] Comment:Testing performed by : [facility], [address] [place], [place] [phone] MPV 6.6(L) 6.8 - 10.4 fL [facility] Comment:Testing performed by : [place] [id number] RBC 2.90(L) 4.50 - 5.70 M/cumm [facility] Comment: Interpretive Data A reference range for this assay has not been established for patients with an unknown legal sex. Please refer to the laboratory test catalog for established sex-specific reference intervals. Current interpretive data was last revised on 2023. Testing performed by: [place] [id number] MCV 75.7(L) 80.0 - 97.6 fL [facility] Comment:Testing performed by : [address] [phone] MCH 24.4(L) 26.7 - 33.7 pg [facility] Comment:Testing performed by : [place] [id number] MCHC 32.3(L) 32.7 - 35.5 g/dL [facility] Comment:Testing performed by : [place] [id number] RDW CV 24.6(H) 11.8 - 14.6 % [facility] Comment:Testing performed by : [address] [phone] NRBC abs 0.00 0.00 - 0.01 K/cumm [facility] Comment:Testing performed by : [address] [phone] Blood 05/13/2023 11:4 5 AM LOCKSMITH APPRENTICE 05/13/2023 11:47 AM LOCKSMITH APPRENTICE us Shasta Sena MD LAB BLOOD ORDERABLES Final Result [facility] [place] [address] * (ABNORMAL) Comprehensive metabolic panel (05/13/2023 11:45 AM LOCKSMITH APPRENTICE) Sodium 139 135 - 145 mmol/L [facility] Comment:Testing performed by : [facility], [address] [place] [phone] Potassium, pl 3.8 3.3 - 4.9 mmol/L [facility] Comment:Testing performed by : [facility], [address] [place] [phone] Chloride 105 97 - 110 mmol/L [facility] Comment:Testing performed by : [facility], [address] [place] [phone] CO2 28 22 - 32 mmol/L [facility] Comment:Testing performed by : [facility], [address] [place] [phone] Anion gap 6 2 - 15 mmol/L [facility] Comment:Testing performed by : [facility], [address] [place] [phone] BUN 12 6 - 25 mg/dL [facility] Comment:Testing performed by : [facility], [address] [place] [phone] Creatinine 0.51(L) 0.80 - 1.30 mg/dL [facility] Comment:Testing performed by : [facility], [address] [place] [phone] Glucose 89 70 - 199 mg/dL [facility] Comment: Interpretive Data Fasting glucose [...] last revised 2022. Testing performed by: [facility], [address] [place] [phone] Calcium 8.7 8.5 - 10.3 mg/dL [facility] Comment:Testing performed by : [facility], [address] [place] [phone] Bilirubin, total 0.2 0.1 - 1.2 mg/dL [facility] Comment:Testing performed by : [facility], [address] [place] [phone] Protein, pl 6.2(L) 6.5 - 8.5 g/dL [facility] Comment:Testing performed by : [facility], [address] [place] [phone] Albumin 3.2(L) 3.5 - 5.0 g/dL [facility] Comment:Testing performed by : [facility], [address] [place] [phone] Alk phos 126 40 - 130 Units/L [facility] Comment:Testing performed by : [facility], [address] [place] [phone] ALT 9 7 - 55 Units/L [facility] Comment:Testing performed by : [facility], [address] [place] [phone] AST 12 10 - 50 Units/L [facility] Comment:Testing performed by : [address] [phone] Blood 05/13/2023 11:4 5 AM LOCKSMITH APPRENTICE 05/13/2023 11:47 AM LOCKSMITH APPRENTICE us Shasta Sena MD LAB BLOOD ORDERABLES Final Result [facility] [place] [address] documented in this encounter Visit Diagnoses Diagnosis Hodgkin lymphoma, unspecified Hodgkin lymphoma type, unspecified body region (HCC) Prevention of chemotherapy-induced neutropenia documented in this encounter Care Teams Rehabilitation Program Coordinator Relationship Specialty Start Date End Date No, Physician PCP - General 05/06/23 Shasta Sena MD [address] [facility] [address] [place] [id number] Medical Oncologist/System Safety Engineer Medical Oncology 05/05/23 documented as of this encounter
--- OUTSIDE RECORDS SUMMARY | 2024-06-25 06:54 | XMS_ITS | Encounter Summary ---
Author Organization [facility] Address [address] [place] [address] Phone Care Team Providers Care Electrical Controls Engineer Name Role Phone Shasta Sena MD Unavailable No, Physician Primary Care Provider [phone] Encounter Details Date Type Department Care Team (Late st Contact Info) Description 05/05/[address] [facility] Oncology [address] [facility] 7th [place] [address] [place] [address] Shasta Sena MD [address] 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 Pathology Consult Service [address], [place] [address] Note to Patients: This report may contain a detailed description of human tissue sent by a health care provider to the laboratory for pathologic evaluation. The content of this report is essential for diagnosis and may provide important critical findings. This information may be unfamiliar to patients to review without a medical professional present. It is advised that the patient review this report in the presence of a health care provider who can answer questions and explain the details. SURGICAL PATHOLOGY REPORT * Consult Report * [facility] is providing an additional review of previously collected tissue. FINAL Patient Name: ??CRYSTAL ROYAL [facility], ?[place], [place] ??[address] Gender: ??M : ??1990 (Age: 33) Hospital #: ??[id number] Patient Type: ??[facility] Location: ??Medical Oncology Taken: ??05/06/2023 Received: ??05/06/2023 Accessioned: ??05/06/2023 Reported: ??05/31/2023 Physician(s): Shasta Sena M.D. [facility] - Department of Laboratory Medicine [facility] Department of Pathology [address] [place] [address] P: [phone] F: [phone] Diagnosis: Consult material received from [place], [place] (OSC: [id number]; 02/10/2022). Lymph node, right supraclavicular, core biopsy: ? - Features consistent with involvement by classic Hodgkin lymphoma ? - See comment Consult material received from [facility], [place], [place] (OSC: [id number]; 03/04/2022). ?? Bone marrow, left posterior iliac crest, core biopsy, clot and aspirate: ? - Features consistent with involvement by classic Hodgkin lymphoma ? - See comment rfx/05/07/2023 13:16 By this signature, I attest that the above diagnosis is based upon my personal examination of the slides(and/or other material indicated in the diagnosis). Susie Banegas M.D., Ph.D. Report Electronically Reviewed and Signed Out By Susie Banegas M.D., Ph.D. 05/31/2023 15:31:30 Diagnosis Comment Correlation with clinical, laboratory, and radiologic findings is needed for full evaluation. Selected galvin slides reviewed by Dr. Angel Givens who agrees with the final diagnosis. Microscopic Description and Comment: (OSC: [id number]; 02/10/2022) Histology: Microscopic evaluation of the lymph node core biopsy shows a mixed inflammatory infiltrate effacing normal lymph node architectur comprised of predominantly small lymphocytes with scattered plasma cells and admixed atypical large cells with prominent nucleoli morphologically consistent with Yan-Izabella cells. Areas of hyalinization/fibrosis and necrosis are present. Immunohistochemistry: Immunohistochemistry and special stains were performed by the referring instutition. Large atypical lymphocytes stain positive for CD30, CD15,, MUM1 and PAX-5 (weak), weakly positive for CD20 in subset of large atypical cells, and negative for ALK-1. ??CD20 highlights scattered B-cells. Immunostain for CD3 highlights background T-cells. CD45 is difficulat to interpret due to background staining but appears negative in at least subset of large atypical cells. Immunostain for AE1/AE3 is negative. ??GMS and AFB special stains are negative for fungal and acid-fast organisms, respectively. Flow cytometry: By report, flow cytometry performed by the outside institution revealed, no immunophenotypic evidence of monoclonal B-cell or aberrant T-cell populations was detected. ??B-cells were polyclonal and comprised 12% of lymphocytes. ??T-cells showed no aberrant antigen expression and were 83% of lymphocytes, with CD4:CD8 ratio of 2.5. (OSC: [id number]; 03/04/2022) ?? Peripheral blood smear: Microscopic evaluation of the the peripheral blood shows anemia with anisocytosis. There is leukocytosis with absolute neutrophilia, and monocytosis. There is thrombocytosis with predominantly normal morphology. Aspirate: Evaluation of the bone marrow aspirate shows marrow with maturing trilineage hematopoiesis. Marrow cellularity appears to be within normal limits. Myeloid and erythroid elements exhibit progressive maturaton. There is myeloid left-shift. myeloid to erythroid ratio is increased. Megakaryocytes are normal in number and predominantly normal in morphology. Iron stain performed on the aspirate preparation reveals increased storage iron and no significant population of ring sideroblasts. ?? 200 cell differential count: Blasts 1% Maturing myeloid elements 78% Eosinophils 3% Lymphocytes1% Plasma cells 1% Erythroid elements 16% Core biopsy: Evaluation of the core biopsy reveals normocellular marrow (approximately 70-80% cellularity) with maturing trilineage hematopoiesis with apparent myeloid predominance and mild megakaryocytic hyperplasia. ??There is a focus of fibrosis associated with lymphoplasmacytic infiltrate and occasional atypical large lymphoid forms morphologically consistent with Yan-Izabella cells and variants. Immunohistochemistry: Immunohistochemistry and special stains were performed by the referring institution and are available for review. ??Neoplastic cells are positive for CD15, CD30, and weak PAX-5 and negative for CD20. ??CD20 highlights scattered B-cells, and CD3 scattered T-cells respectively. ??Immunostain for CD45 is difficult to interpret due high background staining. Flow cytometry: By report, flow cytometry performed by the outside institution revealed no immunophenotypic evidence of monoclonal B-cells or atypical T-cells were identified. ??4% of cells were gated as lymphocytes. ??B-cells were polyclonal and comprised 4% of lymphocytes. ??T-cells showed no aberrant immunophenotype and had an inverted CD4:CD8 ratio of 0.6, and comprised 81% of all lymphocytes. Cytogenetics: By report, cytogenetic analysis was performed by the outside institution revealed normal male chromosme complement ??46, XY [20]. Duc Yoon MD History: The patient is a 33-year-old man with history of hodgkin lymphoma, unspecified body region, unspecified non-hodgkin lymphoma type. Materials Received: Received for review are twenty one slides labeled [id number] and twenty four slides labeled [id number], accompanied by a corresponding pathology report. The material originates from [facility], [place], [place]. Selected slide(s) may be digitally scanned for our files, and all materials are returned to the referring institution, along with a copy of our final report. Any testing required for diagnostic purposes was performed in the Department of Pathology and Immunology at [facility], [address] [place] [address] CLIA # [id number] The performance characteristics of the testing cited in this report (if any) were determined by the ??[facility] Department of Pathology and Immunology [facility], as part of an ongoing quality facilitator program and in compliance with federally mandated regulations drawn from the Clinical Laboratory Improvement Act of 1988 (CLIA '88). ??Some of these tests rely on the use of analyte specific reagents (ASR) and are subject to specific labeling requirements by the US Food and Drug Administration. ??Such diagnostic tests may only be performed in a facility that is certified by the Department of Health and Human Services as a high complexity laboratory under CLIA '88. ??The FDA has determined that such clearance or approval is not necessary. ??ASRs should not be regarded as investigational or for research. ??ASRs were developed and the performance characteristics determined by the [facility], [facility] Department of Pathology and Immunology. ??It has not been cleared or approved by the U.S. Food and Drug Administration. ??Any test designated as LDT was developed and its performance characteristics determined by [facility]. It has not been cleared or approved by the FDA. This test is used for clinical purposes and should not be regarded as investigational or for research. Report images and/or scanned reports, if included, only viewable in PDF version of report. us Shasta Sena MD LAB PATHOLOGY ORDERABLES F inal Result [facility] [address] [place] [address] documented in this encounter Visit Diagnoses Diagnosis Non-Hodgkin's lymphoma, unspecified body region, unspecified non-Hodgkin lymphoma type (HCC)- Primary Non-Hodgkin's lymphoma, unspecified body region, unspecified non-Hodgkin lymphoma type (HCC) documented in this encounter Care Teams Electrical Controls Engineer Relationship Specialty Start Date End Date No, Physician PCP - General 05/06/23 Shasta Sena MD [address] [facility] [address] [place] [address] Medical Oncologist/Input Output Clerk Medical Oncology 05/05/23 documented as of this encounter
--- OUTSIDE RECORDS SUMMARY | 2024-06-25 06:54 | XMS_ITS | Encounter Summary ---
Author Organization [facility] Address [address] [place] [address] Phone Care Team Providers Care Blending Line Attendant Name Role Phone Shasta Sena MD Unavailable [phone] Encounter Details Date Type Department Care Team (Late st Contact Info) Description 05/05/2023 Orders Only [facility] Oncology [address] [facility] 7th [place] [address] [place] [address] Matilda Dennison RN Social History Tobacco Use Types Packs/Day [...] on file Legal Sex Male 10:05 AM EXPLOSION WELDER Gender Identity Male 05/30/2023 9:41 PM EXPLOSION WELDER Sexual Orientation Straight 05/30/2023 9: 41 PM EXPLOSION WELDER documented as of this encounter Plan of Treatment Not on file documented as of this encounter Visit Diagnoses Not on filedocumented in this encounter Care Teams Blending Line Attendant Relationship Specialty Start Date End Date Shasta Sena MD [address] [facility] [address] [place] [address] Medical Oncologist/Brand Lead Medical Oncology 05/05/23 documented as of this encounter
--- OUTSIDE RECORDS SUMMARY | 2024-06-25 06:54 | XMS_ITS | Encounter Summary ---
Author Organization [facility] Address [address] [place] [address] Phone Care Team Providers Care Compound Machine Operator Name Role Phone Shasta Sena MD Unavailable [phone] No, Physician Primary Care Provider [phone] Encounter Details Date Type Department Care Team (Late st Contact Info) Description 05/07/2023 Documentation [facility] Oncology Replaced by [facility] 7th [place] [address] [place] [address] Lianne Stone RMA Social History Tobacco Use Types Packs/Day Years [...] on file Legal Sex Male 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 ===View-only below this line=== ----- Message ----- From: Matilda Rodriguez MBA Sent: 05/07/2023 3:04 PM CDT To: [facility] Subject: PET SCAN Pt has active requests for 06/16 for PET LAB ROV RC3, but the PET dept does not have anything untilthe afternoon starting at 1pm. Is it okay to schedule the PET after the pt sees you all? They only had late appts for 06/15 as well. Please let me know as soon as possible so we can get the pt scheduled. documented in this encounter Plan of Treatment Not on file documented as of this encounter Visit Diagnoses Not on filedocumented in this encounter Care Teams Compound Machine Operator Relationship Specialty Start Date End Date No, Physician PCP - General 05/06/23 Shasta Sena MD [address] [facility] [address] [place] [address] Medical Oncologist/School Business Administrator Medical Oncology 05/05/23 documented as of this encounter
--- OUTSIDE RECORDS SUMMARY | 2024-06-25 06:54 | XMS_ITS | Encounter Summary ---
Author Organization [facility] Address [address] [place] [address] Phone Care Team Providers Care Packager And Strapper Name Role Phone Shasta Sena MD Unavailable No, Physician Primary Care Provider [phone] Encounter Details Date Type Department Care Team (Late st Contact Info) Description 05/06/2023 Orders Only [facility] [address] [place] [address] Shasta Sena MD [address] [facility] [address] [place] [address] Non-Hodgkin's lymphoma, unspecified body region, unspecified non-Hodgkin lymphoma type (HCC) Social History Tobacco Use Types Packs/Day [...] on file Legal Sex Male 10:05 AM SOFT 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 ENGRAVER HAND Gender Identity Male 05/30/2023 9:41 PM SOFT METALS ENGRAVER HAND Sexual Orientation Straight 05/30/2023 9: 41 PM SOFT METALS ENGRAVER HAND documented as of this encounter Plan of Treatment Not on file documented as of this encounter Procedures Procedure Name Priority Date/Time Associated Diagnosis Comments SURGICAL PATHOLOGY Routine 05/06/2023 8: 28 AM CDT Non-Hodgkin's lymphoma, unspecified body region, unspecified non-Hodgkin lymphoma type (HCC) documented in this encounter Results * Surgical pathology (05/06/2023 8:28 AM CDT) Tissue (Miscellaneous) 05/06/2023 8:28 AM CDT 05/06/2023 8:28 AM CDT Narrative [facility] - 05/31/2023 3:31 PM SOFT METALS ENGRAVER HAND EPIC results best viewed via link to PDF [facility] Pathology Consult Service [address], [place] [address] Note to Patients: This report may contain [...] SURGICAL PATHOLOGY REPORT * Consult Report * [facility] is providing an additional review of previously collected tissue. FINAL Patient Name: ??CRYSTAL ROYAL Address: ??[address] [place] [address], ?[place], [place] ??[address] Gender: ??M : ??1990 (Age: 33) Hospital #: ??[id number] Patient Type: ??[facility] Location: ??Medical Oncology Taken: ??05/06/2023 Received: ??05/06/2023 Accessioned: ??05/06/2023 Reported: ??05/31/2023 Physician(s): Shasta Sena M.D. [facility] - Department of Laboratory Medicine [facility] Department of Pathology [address] [place] [address] P: [phone] F: [phone] Diagnosis: Consult material received from [place], [place] (OSC: [id number]; 02/10/2022). Lymph node, right supraclavicular, core biopsy: ? - Features consistent with involvement by classic Hodgkin lymphoma ? - See comment Consult material received from [place], [place] (OSC: [id number]; 03/04/2022). ?? Bone marrow, left posterior iliac [...] final diagnosis. Microscopic Description and Comment: (OSC: [id number]; 02/10/2022) Histology: Microscopic evaluation of the lymph [...] lymphocytes, with CD4:CD8 ratio of 2.5. (OSC: [id number]; 03/04/2022) ?? Peripheral blood smear: Microscopic evaluation [...] for review are twenty one slides labeled [id number] and twenty four slides labeled [id number], accompanied by a corresponding pathology report. The material originates from [place], [place]. Selected slide(s) may be digitally scanned for our files, and all materials are returned to the referring institution, along with a copy of our final report. Any testing required for diagnostic purposes was performed in the Department of Pathology and Immunology at [facility], [address] [place] [address] CLIA # [id number] The performance characteristics of the testing cited in this report (if any) were determined by the ??[facility] Department of Pathology and Immunology [facility], as part of an ongoing quality systems manager program and in compliance with federally mandated [...] and the performance characteristics determined by the [facility], [facility] Department of Pathology and Immunology. ??It has not been cleared or approved by the U.S. Food and Drug Administration. ??Any test designated as LDT was developed and its performance characteristics determined by [facility]. It has not been cleared or approved by the FDA. This test is used for clinical purposes and should not be regarded as investigational or for research. Report images and/or scanned reports, if included, only viewable in PDF version of report. us Shasta Sena MD LAB PATHOLOGY ORDERABLES F inal Result [facility] [address] [address] documented in this encounter Visit Diagnoses Diagnosis Non-Hodgkin's lymphoma, unspecified body region, unspecified non-Hodgkin lymphoma type (HCC) documented in this encounter Care Teams Packager And Strapper Relationship Specialty Start Date End Date No, Physician PCP - General 05/06/23 Shasta Sena MD [address] [facility] [address] [place] [address] Medical Oncologist/Systems Checkout Mechanic Medical Oncology 05/05/23 documented as of this encounter
--- OUTSIDE RECORDS SUMMARY | 2024-06-25 06:54 | XMS_ITS | Encounter Summary ---
Author Organization [facility] Address [address] [place] [address] Phone Care Team Providers Care Collaborative Teacher Name Role Phone Shasta Sena MD Unavailable [phone] No, Physician Primary Care Provider [phone] Encounter Details Date Type Department Care Team (Late st Contact Info) Description 05/07/2023 Documentation [facility] Oncology [facility] 7th [place] [address] [place] [address] Lianne Stone RMA Social History Tobacco Use [...] on file Legal Sex Male 10:05 AM OFFICE MANAGER Gender Identity Male 05/30/2023 9:41 PM OFFICE MANAGER Sexual Orientation Straight 05/30/2023 9: 41 PM OFFICE MANAGER documented as of this encounter Progress Notes * Lianne Stone RMA - 05/07/2023 3:47 PM CDT Pt appt for PET has been scheduled for 06/16 at 130pm. ===View-only below this line=== ----- Message ----- From: Abigail Sapp NP Sent: 05/07/2023 3:11 PM CDT To: SEDRICK Khan 130 is good ----- Message ----- From: Lianne Stone RMA Sent: 05/07/2023 3:06 PM CDT To: Abigail Sapp NP No available appt times for this date before the 130pm time slot. ----- Message ----- From: Abigail Sapp NP Sent: 05/07/2023 2:42 PM CDT To: [facility] Can you please schedule PET for 06/16? Preferably if they have an apt around 10 to 12 navi , thanks documented in this encounter Plan of Treatment Not on file documented as of this encounter Visit Diagnoses Not on filedocumented in this encounter Care Teams Collaborative Teacher Relationship Specialty Start Date End Date No, Physician PCP - General 05/06/23 Shasta Sena MD [address] [facility] [address] [place] [address] Medical Oncologist/Revenue Accounting Manager Medical Oncology 05/05/23 documented as of this encounter
--- OUTSIDE RECORDS SUMMARY | 2024-06-25 06:54 | XMS_ITS | Encounter Summary ---
Author Organization [facility] Address [address] [place] [address] Phone Care Team Providers Care Plastics Sheet Finishing Press Operator Name Role Phone Shasta Sena MD Unavailable No, Physician Primary Care Provider [phone] Encounter Details Date Type Department Care Team (Late st Contact Info) Description 05/12/2023 Orders Only [facility] Oncology [address] [facility] Advanced Medicine 7th [place] [address] [place] [address] Abigail Sapp, [place] [address] DIV IM MEDICAL ONCOLOGY, [address] [place] [address] Social History Tobacco Use Types Packs/Day Years [...] on file Legal Sex Male 10:05 AM SERVICE CREW LEADER Gender Identity Male 05/30/2023 9:41 PM SERVICE CREW LEADER Sexual Orientation Straight 05/30/2023 9: 41 PM SERVICE CREW LEADER documented as of this encounter Ordered Prescriptions Prescription Sig Dispense Quantity Refills Last Filled Start Date End Date filgrastim-sndz (Zarxio) 480 mcg/0.8 mL syringe Inject 0.8 mL (480 mcg total) under the skin daily 8 mL 1 05/12/2023 06/21/2023 documented in this encounter Plan of Treatment Not on file documented as of this encounter Visit Diagnoses Not on filedocumented in this encounter Care Teams Plastics Sheet Finishing Press Operator Relationship Specialty Start Date End Date No, Physician PCP - General 05/06/23 Shasta Sena MD [address] [facility] [address] [place] [address] Medical Oncologist/Gas Golf Cart Repairer Medical Oncology 05/05/23 documented as of this encounter
--- OUTSIDE RECORDS SUMMARY | 2024-06-25 06:54 | XMS_ITS | Encounter Summary ---
Author Organization [facility] Address [address] [place] [address] Phone Care Team Providers Care Petroleum Laboratory Technician Name Role Phone Shasta Sena MD Unavailable [phone] No, Physician Primary Care Provider [phone] Encounter Details Date Type Department Care Team (Late st Contact Info) Description 05/07/2023 Documentation [facility] Oncology [facility] 7th [place] [address] [place] [address] Lianne Stone RMA Social History Tobacco Use [...] on file Legal Sex Male 10:05 AM RAT EXTERMINATOR Gender Identity Male 05/30/2023 9:41 PM RAT EXTERMINATOR Sexual Orientation Straight 05/30/2023 9: 41 PM RAT EXTERMINATOR documented as of this encounter Progress Notes * Lianne Stone RMA - 05/07/2023 3:06 PM CDT No available appt times for this date before the 130pm time slot. ===View-only below this line=== ----- Message ----- [...] on filedocumented in this encounter Care Teams Petroleum Laboratory Technician Relationship Specialty Start Date End Date No, Physician PCP - General 05/06/23 Shasta Sena MD [address] [facility] [address] [place] [address] Medical Oncologist/Project Architect Medical Oncology 05/05/23 documented as of this encounter
--- OUTSIDE RECORDS SUMMARY | 2024-06-25 06:54 | XMS_ITS | Encounter Summary ---
Author Organization [facility] Address [address] [place] [address] Phone Care Team Providers Care Caterpillar Operator Name Role Phone Shasta Sena MD Unavailable [phone] No, Physician Primary Care Provider [phone] Encounter Details Date Type Department Care Team (Late st Contact Info) Description 05/06/2023 Telephone [facility] Oncology [facility] Advanced Medicine 7th [place] [address] [place] [address] Abigail Sapp, [place] [address] DIV IM MEDICAL ONCOLOGY, [address] [place] [address] Social History Tobacco Use Types [...] file Legal Sex Male 10:05 AM GAS TRANSFER OPERATOR Gender Identity Male 05/30/2023 9:41 PM GAS TRANSFER OPERATOR Sexual Orientation Straight 05/30/2023 9: 41 PM GAS TRANSFER OPERATOR documented as of this encounter Miscellaneous Notes * Telephone Encounter - Abigail Sapp NP - 05/06/2023 2:27 PM CDT D/C Date: 05/13/2023 Discharged from: [facility] Discharge to: home Issues since Discharge: none New equipment: none New Treatment: chemotherapy New Medications: No Received all discharge medications: yes Issues with discharge planning: no Reviewed next appointment: yes Did you schedule as Transitional Care Visit? no Spoke to patients mother and she states Kedar is doing well. We will plan to see him next week. He is sleeping well and had a normal BM today. Reviewed phone numbers to call with any questions or concerns. documented in this encounter Plan of Treatment Not on file documented as of this encounter Visit Diagnoses Not on filedocumented in this encounter Care Teams Caterpillar Operator Relationship Specialty Start Date End Date No, Physician PCP - General 05/06/23 Shasta Sena MD [address] [facility] [address] [place] [address] Medical Oncologist/Bibliographic Services Specialist Medical Oncology 05/05/23 documented as of this encounter
--- OUTSIDE RECORDS SUMMARY | 2024-06-25 06:55 | XMS_ITS | Encounter Summary ---
Author Organization [facility] Address [address] [place] [address] Care Team Providers Care Automation Mechanic Name Role Phone Unavailable Primary Care Provider Unavailabl e Reason for Referral * MRI/CAT/PET Scan (Routine) - Closed Specialty Diagnoses / Procedures Referred By Contac t Referred To Contact Radiology Diagnoses Diagnosis unknown Procedures Neuro MR Outside Consult Shasta Sena MD [address] [address] Phone: tel: fax: Referral ID Status Reason Start Date Expiration Date Visits Re quested Visits Authorized [id number] Closed 04/27/2023 05/26/2024 1 1 Reason for Visit * MRI/CAT/PET Scan (Routine) - Closed Specialty Diagnoses / Procedures Referred By Contac t Referred To Contact Radiology Diagnoses Diagnosis unknown Procedures Neuro MR Outside Consult Shasta Sena MD Pending sale to [facility] [address] [address] Phone: tel: fax: Referral ID Status Reason Start Date Expiration Date Visits Re quested Visits Authorized [id number] Closed 04/27/2023 05/26/2024 1 1 Encounter Details Date Type Department Care Team (Latest Contact Info) Description 04/27/2023 4:49 PM CDT - 04/27/2023 11:59 PM CDT Hospital Encounter [facility] [address] [place] [address] Diagnosis unknown Discharge Disposition: Discharge to home or self care Social History Tobacco Use Types Packs/Day Years Used Date Smoking Tobacco: Never Assessed Personal Safety Answer Date Recorded Have you ever been in or are you currently in a harmful physical or emotional relationship or is someone making you feel afraid or unsafe? Yes 04/28/2023 Sex and Gender Information Value Date Recorded Sex Assigned at Not on file Legal Sex Male 10:05 AM ADVISORY INTERNSHIP Gender Identity Male 05/30/2023 9:41 PM ADVISORY INTERNSHIP Sexual Orientation Straight 05/30/2023 9: 41 PM ADVISORY INTERNSHIP documented as of this encounter Medications at [...] times a day 60 tablet 05/05/2023 3 gabapentin (NEURONTIN) 600 mg tablet Take [...] a day for 10 days 60 tablet 05/05/2023 3 nicotine (NICODERM CQ) 14 [address] [...] Procedure Name Priority Date/Time Associated Diagnosis Comments NEURO MR OUTSIDE CONSULT Routine 04/27/2023 4:49 PM CDT Diagnosis unknown documented in this encounter Results * Neuro MR Outside Consult (04/27/2023 4:49 PM CDT) Anatomical Region Laterality Modality N/A Magnetic Resonan ce 04/28/2023 10:2 5 AM CDT Impressions 04/28/2023 5:11 PM CDT 1. Mild diffuse dural enhancement, which is indeterminate and can be seen in the setting of prior procedure such as lumbar puncture. Although intracranial involvement with disease cannot be excluded, this is believed to be less likely. 2. 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 ??Epidural extension of tumor at L4 results in severe canal stenosis. ?? 3. Epidural collections in the lumbar spine, which may represent epidural hematoma with signal characteristics of acute hematoma. Other etiologies such as infection/abscess or arachnoid cyst/hygroma cannot be excluded. ??Atypical, nonenhancing tumor is a less likely possibility. ??Study is somewhat limited by motion. ??Recommend clinical correlation and consideration for repeat MR with and without contrast for further evaluation. The findings, conclusions and recommendations within this report do not replace the initial findings, conclusions ??and recommendations made at the facility where the study was performed based upon the imaging and clinical condition at that time. ??Comparison with the prior report and clinical history is necessary. ??The provided images may or may not represent the inaja source data set and thus may contain changes that may lower the accuracy of this second-opinion interpretation. Dictated by: Lloyd Strickland M.D. The radiology attending physician has personally reviewed this study, and had reviewed and/or edited this written report and agrees with it. Electronically signed by: Steve Sparrow M.D. Narrative 04/28/2023 5:11 PM CDT EXAMINATION: RADIOLOGY CONSULTATION ON OUTSIDE IMAGING STUDY STUDY INITIALLY PERFORMED: 04/26/2023 at [facility]. TYPE OF STUDY: Multiple MR images of the brain, thoracic, and lumbar spine without and with intravenous contrast are provided at the time of this interpretation. CONTRAST ROUTE: Contrast was administered via the intravenous route. The protocol was adequate to address the clinical question. The outside final report was available at the time of this second opinion interpretation. TYPE OF CONSULTATION: Consult on outside imaging study with images submitted through [facility] DATE OF CONSULTATION: 04/28/2023 8:09 AM HISTORY: Stage IV Hodgkin's lymphoma diagnosed November 2021 COMPARISON: 11/26/2021 PET/CT, 12/15/[address] FINDINGS: BRAIN: Limited, post contrast examination in 3 planes. ??There is thin, mild diffuse dural enhancement. ??Ventricles are normal in size. No mass effect or midline shift. ??Posterior fossa is unremarkable. Orbits are unremarkable. ??Sinuses and mastoids appear grossly clear. THORACIC SPINE: The alignment of the thoracic spine is normal. Vertebral bodies heights are overall normal. ??There are numerous marrow replacing lesions consistent with osseous metastases in the imaged spine. These are seen most extensively in the thoracic spine at T1, T4, T5, T7, and T11, which appear to involve 50% or more of the vertebral body. ??There is mild height loss/pathologic fracture of T7 without retropulsion, similar to 12/15/2022 CT. ??There is additional likely pathologic fracture of T11, retropulsion, which is new from 12/15/2022 CT. ??Multiple lesions extend into the posterior elements, with numerous enhancing foci in the imaged posterior ribs. There is no significant spinal canal or neuroforaminal stenosis. Normal signal of the thoracic spinal cord without abnormal enhancement. Small bilateral pleural effusions. LUMBAR SPINE: The alignment of the lumbar spine is normal. There are numerous enhancing, marrow replacing osseous metastases in the lumbar spine, involving all lumbar and sacral vertebral bodies, most extensively involving L3 and L4. ??There is an L4 pathologic compression fracture deformity with mild retropulsion, extending to narrow the spinal canal. ??There is an epidural soft tissue component extending both dorsally and ventrally causing severe central canal stenosis at the L4 level. ?? T2 hyperintense and T1 isointense nonenhancing dorsal epidural collection in the left aspect of the spinal canal from L1 through L3 causing anterior displacement of the cauda equina. ??This measures up to 9 mm in depth and causes severe spinal canal stenosis at the L2 level (series 19 image 13). ??A similar appearing collection extends from L2 L4 in the ventral aspect of the spinal canal. ??Conus medullaris terminates at L1. ??Normal signal intensity of the spinal cord and nerve roots on all sequences. Procedure Note Steve Sparrow MD - 04/28/2023 EXAMINATION: RADIOLOGY CONSULTATION ON OUTSIDE IMAGING STUDY STUDY INITIALLY PERFORMED: 04/26/2023 at [facility]. TYPE OF STUDY: Multiple MR images of the brain, thoracic, and lumbar spine without and with intravenous contrast are provided at the time of this interpretation. CONTRAST ROUTE: Contrast was administered via the intravenous route. The protocol was adequate to address the clinical question. The outside final report was available at the time of this second opinion interpretation. TYPE OF CONSULTATION: Consult on outside imaging study with images submitted through [facility] DATE OF CONSULTATION: 04/28/2023 8:09 AM HISTORY: Stage IV Hodgkin's lymphoma diagnosed November 2021 COMPARISON: 11/26/2021 PET/CT, 12/15/[address] FINDINGS: BRAIN: Limited, post contrast examination in 3 planes. There is thin, mild diffuse dural enhancement. Ventricles are normal in size. No mass effect or midline shift. Posterior fossa is unremarkable. Orbits are unremarkable. Sinuses and mastoids appear grossly clear. THORACIC SPINE: The alignment of the thoracic spine is normal. Vertebral bodies heights are overall normal. There are numerous marrow replacing lesions consistent with osseous metastases in the imaged spine. These are seen most extensively in the thoracic spine at T1, T4, T5, T7, and T11, which appear to involve 50% or more of the vertebral body. There is mild height loss/pathologic fracture of T7 without retropulsion, similar to 12/15/2022 CT. There is additional likely pathologic fracture of T11, retropulsion, which is new from 12/15/2022 CT. Multiple lesions extend into the posterior elements, with numerous enhancing foci in the imaged posterior ribs. There is no significant spinal canal or neuroforaminal stenosis. Normal signal of the thoracic spinal cord without abnormal enhancement. Small bilateral pleural effusions. LUMBAR SPINE: The alignment of the lumbar spine is normal. There are numerous enhancing, marrow replacing osseous metastases in the lumbar spine, involving all lumbar and sacral vertebral bodies, most extensively involving L3 and L4. There is an L4 pathologic compression fracture deformity with mild retropulsion, extending to narrow the spinal canal. There is an epidural soft tissue component extending both dorsally and ventrally causing severe central canal stenosis at the L4 level. T2 hyperintense and T1 isointense nonenhancing dorsal epidural collection in the left aspect of the spinal canal from L1 through L3 causing anterior displacement of the cauda equina. This measures up to 9 mm in depth and causes severe spinal canal stenosis at the L2 level (series 19 image 13). A similar appearing collection extends from L2 L4 in the ventral aspect of the spinal canal. Conus medullaris terminates at L1. Normal signal intensity of the spinal cord and nerve roots on all sequences. IMPRESSION: 1. Mild diffuse dural enhancement, which is indeterminate and can be seen in the setting of prior procedure such as lumbar puncture. Although intracranial involvement with disease cannot be excluded, this is believed to be less likely. 2. 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 Epidural extension of tumor at L4 results in severe canal stenosis. 3. Epidural collections in the lumbar spine, which may represent epidural hematoma with signal characteristics of acute hematoma. Other etiologies such as infection/abscess or arachnoid cyst/hygroma cannot be excluded. Atypical, nonenhancing tumor is a less likely possibility. Study is somewhat limited by motion. Recommend clinical correlation and consideration for repeat MR with and without contrast for further evaluation. The findings, conclusions and recommendations within this report do not replace the initial findings, conclusions and recommendations made at the facility where the study was performed based upon the imaging and clinical condition at that time. Comparison with the prior report and clinical history is necessary. The provided images may or may not represent the inaja source data set and thus may contain changes that may lower the accuracy of this second-opinion interpretation. Dictated by: Lloyd Strickland M.D. The radiology attending physician has personally reviewed this study, and had reviewed and/or edited this written report and agrees with it. Electronically signed by: Steve Sparrow M.D. Shasta Sena MD IM MRI PROCEDURES Final R esult documented in this encounter Visit Diagnoses Diagnosis Diagnosis unknown documented in this encounter
--- OUTSIDE RECORDS SUMMARY | 2024-06-25 06:55 | XMS_ITS | Encounter Summary ---
Author Organization [facility] Address [address] [place] [address] Phone Care Team Providers Care Deputy Treasurer Name Role Phone Shasta Sena MD Unavailable [phone] No, Physician Primary Care Provider [phone] Encounter Details Date Type Department Care Team (Late st Contact Info) Description 04/28/2023 Ophth Exam [facility] Ophthalmology [address] [place] [address] [place] [id number] Raeann Rothman MD [address] [place] [address] Social History Tobacco Use Types [...] on file Legal Sex Male 10:05 AM X RAY TECHNOLOGIST Gender Identity Male 05/30/2023 9:41 PM X RAY TECHNOLOGIST Sexual Orientation Straight 05/30/2023 9: 41 PM X RAY TECHNOLOGIST documented as of this encounter Plan of Treatment Not on file documented as of this encounter Visit Diagnoses Not on filedocumented in this encounter Eye Exam Visual Acuity (Snellen - Linear) Right eye Left eye Near sc 20/20 20/20 Tonometry (Tonopen, 4:49 PM) Right eye Left eye Pressure 19 19 Pupils Dark Light Shape React APD Right eye 4 3 Round Brisk None Left eye 4 3 Round Brisk None Visual Alcaraz Right eye Left eye Full Full Extraocular Movement Right eye Left eye Abnormal Full Up gaze -- 0 -- -- 0 -- Right/left gaze -0.5 -- 0 0 -- 0 Down gaze -- 0 -- -- 0 -- Esotropia Dilation Both eyes: 1.0% Mydriacyl, 2 .5% Phenylephrine @ 4:50 PM External Exam Right eye Left eye External Normal Normal Slit Lamp Exam Right eye Left eye Lids/Lashes Normal Normal Conjunctiva/Sclera White and quiet White and torin et Cornea Clear Clear Anterior Chamber Deep and quiet Deep and quiet Iris Round and reactive Round and andrea ctive Lens Clear Clear Anterior Vitreous Normal Normal Fundus Exam Right eye Left eye Disc Normal Normal Macula Normal Normal Vessels Normal Normal Periphery Normal Normal Care Teams Deputy Treasurer Relationship Specialty Start Date End Date No, Physician PCP - General 05/06/23 Shasta Sena MD [address] [place] [address] Medical Oncologist/Network Contract Manager Medical Oncology 05/05/23 documented as of this encounter
--- OUTSIDE RECORDS SUMMARY | 2024-06-25 06:55 | XMS_ITS | Encounter Summary ---
Author Organization [facility] Address [address] [place] [address] Phone Care Team Providers Care Labels Molder Name Role Phone Unavailable Primary Care Provider Unavailabl e Encounter Details Date Type Department Care Team (Late st Contact Info) Description 04/28/2023 4:50 PM CDT Ancillary Procedure [facility] Vascular Lab IP [address] [facility] [address] [place] [address] Social History Tobacco Use Types Packs/Day Years [...] on file Legal Sex Male 10:05 AM WOOD TOOL 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 Gender Identity Male 05/30/2023 9:41 PM WOOD TOOL MAKER Sexual Orientation Straight 05/30/2023 9: 41 PM WOOD TOOL MAKER documented as of this encounter Plan of Treatment Not on file documented as of this encounter Procedures Procedure Name Priority Date/Time Associated Diagnosis Comments US VEIN DUPLEX LOWER EXTREMITY BILATERAL COMPLETE ED Urgent/IP Urgent 04/28/2023 5:49 PM CDT documented in this encounter Results * US Vein Duplex Lower Extremity Bilateral Complete (04/28/2023 5:49 PM CDT) Anatomical Region Laterality Modality Vascular Bilateral Ultrasound 04/28/2023 7:22 PM CDT Narrative 04/28/2023 11:00 PM CDT [facility] - Department of Vascular Surgery, Vascular Laboratory [address] [place] [id number] Lower Extremity Venous Ultrasound Report Patient Name: CRYSTAL ROYAL : 1990 (33y 2m) Study Date: 04/28/2023 7:22:52 PM Gender: M Tech: ID Location: [id number] Ref.Provider: RICHMOND ZAVALA Quality: Adequate Order Provider: RICHMOND ZAVALA Procedures: Vascular Report: Venous Duplex imaging was performed bilaterally in the lower extremities. The common femoral, femoral, popliteal, posterior tibial, peroneal veins were evaluated for patency, spontaneity and phasicity with Doppler, compression and augmentation maneuvers. Great saphenous vein proximal at the junction was evaluated with compression maneuvers. Indications: Localized edema. Findings: Performing Baker Pastry: Harleen Mosley RVT. Bilateral: Venous Doppler signals in the bilateral lower extremity are within normal limits for spontaneity and phasicity and respond normally to augmentation maneuvers. No evidence of deep vein thrombus by duplex, proximal to the calf. Conclusions: 1. There is no evidence of acute deep vein thrombosis in the lower extremities bilaterally. Noninvasive venous studies cannot rule out isolated calf vein obstruction. History: Lower extremity edema. Previous Studies: No previous studies for comparison. Disclaimer: The study images and the final report will be retained in the patient chart by the Vascular Laboratory for the legally required time period. This chart constitutes the legal record of any testing performed. Attestation: I have reviewed and interpreted the pertinent images and measurements of this study. I attest to the conclusions in the final report that is provided above. Electronically Signed By: Omid Anaya MD [facility] 2023-04-28 22:59:59 CDT CC: CC: Procedure Note Omid Anaya MD - 04/28/2023 [facility] - Department of Vascular Surgery,Vascular Laboratory [address] [place] [id number] Lower Extremity Venous Ultrasound Report Patient Name: CRYSTAL ROYALPatient ID: [id number] : 1990 (33y 2m)Study Date: 04/28/2023 7:22:52 PM Gender: MAccession #: [id number] Tech: IALocation: [id number] Ref.Provider: RICHMOND ZAVALAQuality: Adequate Order Provider: RICHMOND ZAVALAAccount #: [id number] Procedures: Vascular Report: Venous Duplex imaging was performed bilaterally in the lower extremities.The common femoral, femoral, popliteal, posterior tibial, peroneal veins wereevaluated for patency, spontaneity and phasicity with Doppler, compression and augmentationmaneuvers. Great saphenous vein proximal at the junction was evaluated with compressionmaneuvers. Indications: Localized edema. Findings: Performing Baker Pastry: Harleen Mosley RVT. Bilateral: Venous Doppler signals in the bilateral lower extremity are within normallimits for spontaneity and phasicity and respond normally to augmentation maneuvers.No evidence of deep vein thrombus by duplex, proximal to the calf. Conclusions: 1. There is no evidence of acute deep vein thrombosis in the lowerextremities bilaterally. Noninvasive venous studies cannot rule out isolated calf veinobstruction. History: Lower extremity edema. Previous Studies: No previous studies for comparison. Disclaimer: The study images and the final report will be retained in the patientchart by the Vascular Laboratory for the legally required time period. This chartconstitutes the legal record of any testing performed. Attestation: I have reviewed and interpreted the pertinent images and measurements ofthis study. I attest to the conclusions in the final report that is provided above. Electronically Signed By: Omid Anaya MD [facility] 2023-04-28 22:59:59 CDT CC: CC: us Richmond Zavala MD IMG US PROCEDURES Sara l Result documented in this encounter Visit Diagnoses Not on filedocumented in this encounter
--- OUTSIDE RECORDS SUMMARY | 2024-06-25 06:55 | XMS_ITS | Encounter Summary ---
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 ??Progression of lymphomatous diseased evidenced by increased multifocal adenopathy above and below the diaphragm with predominant involvement in the retroperitoneum and bilateral inguinal regions. ?? 2. ??Worsening tree in bud opacities in the left upper and lower lobe suspicious for fungal or other atypical infection. ??Additional small left pleural effusion. 3. ??Interval development of hypoattenuating lesions within the spleen which may also represent an atypical fungal infection or progression of lymphoma. 4. ??Right upper lobe lung consolidation versus mass which is also suspicious for fungal infection versus lymphomatous involvement 5. ??Increased size of multifocal lytic lesions in the axial and appendicular skeleton notably involving the femoral necks which puts the patient at risk for pathologic fracture. ??Unchanged pathologic compression fractures of T7 and L4. 6. ??Areas of hypoenhancement within the right kidney may most likely due to pyelonephritis although infarcts can have a similar appearance. 7. ??Compression of the inferior vena cava by retroperitoneal lymphadenopathy, although the IVC remains patent. The findings, conclusions and recommendations within this report do not replace the initial findings, conclusions ??and recommendations made at the facility where the study was performed based upon the imaging and clinical condition at that time. ??Comparison with the prior report and clinical history is necessary. ??The provided images may or may not represent the [place] source data set and thus may contain changes that may lower the accuracy of this second-opinion interpretation. Dictated by: Mark Tsang MD The radiology attending physician has personally reviewed this study, and had reviewed and/or edited this written report and agrees with it. Electronically signed by: Jaycee Villaseñor M.D. Narrative 04/28/2023 9:47 AM CDT EXAMINATION: RADIOLOGY CONSULTATION ON OUTSIDE IMAGING STUDY STUDY INITIALLY PERFORMED: 04/26/2023 at [facility]. TYPE OF STUDY: Multiple CT images of the chest abdomen and pelvis with intravenous contrast are provided at the time of this interpretation. CONTRAST ROUTE: Contrast was administered via the intravenous route. The protocol was adequate to address the clinical question. The outside final report was not available at the time of this second opinion interpretation. TYPE OF CONSULTATION: Consult on outside imaging study with images submitted through [employer] DATE OF CONSULTATION: 04/28/2023 8:56 AM HISTORY: Hodgkin's lymphoma ?? COMPARISON: CT 12/15/2022 FINDINGS: Right internal jugular approach central venous catheter tip terminates at the superior cavoatrial junction. ??A large left supraclavicular lymph node measuring up to 1.4 cm, series 2 image 8 which is new from 12/15/2022. ??There is low right paratracheal adenopathy. There is a large area of consolidation within the right upper lobe slightly improved compared to prior. ??Tree-in-bud opacities throughout the left upper and lower lobes in a adan-bronchovascular distribution. ??There is a small left pleural effusion. No focal hepatic lesions. ??The portal vein and mesenteric vessels are patent. ??The gallbladder, adrenal glands, pancreas are normal. ??There are multiple hypoenhancing lesions throughout the splenic parenchyma largest in the left upper pole measuring 2.2 cm. ??There areas of hypoenhancement within the right kidney at the superior and inferior pole. ??No hydronephrosis. ??Urinary bladder is normal. No evidence of bowel obstruction. ??There is trace perihepatic and mesenteric free fluid. ??There is body wall edema and anasarca. ??There is retroperitoneal lymphadenopathy which has progressed since prior. The abdominal aorta is normal in caliber. ??There is compression of the infrarenal inferior vena cava due to the retroperitoneal lymphadenopathy although remains patent. Multiple enlarged pelvic sidewall and inguinal lymph nodes the largest measuring 1.7 cm, series 2 image 195, increased compared to prior. ??There are diffuse lucent lesions throughout the axial skeleton and pelvis which appears similar to 12/15/2022. ??Pathologic fracture of L4 vertebral body with loss of the superior and inferior endplates although similar to 12/15/2022. ??Additional unchanged pathologic compression fracture of T7. ??Increased lucent lesions within the femoral necks and left pubic symphysis. Procedure Note Jaycee Villaseñor MD - 04/28/2023 EXAMINATION: RADIOLOGY CONSULTATION ON OUTSIDE IMAGING STUDY STUDY INITIALLY PERFORMED: 04/26/2023 at [facility]. TYPE OF STUDY: Multiple CT images of the chest abdomen and pelvis with intravenous contrast are provided at the time of this interpretation. CONTRAST ROUTE: Contrast was administered via the intravenous route. The protocol was adequate to address the clinical question. The outside final report was not available at the time of this second opinion interpretation. TYPE OF CONSULTATION: Consult on outside imaging study with images submitted through [employer] DATE OF CONSULTATION: 04/28/2023 8:56 AM HISTORY: Hodgkin's lymphoma COMPARISON: CT 12/15/2022 FINDINGS: Right internal jugular approach central venous catheter tip terminates at the superior cavoatrial junction. A large left supraclavicular lymph node measuring up to 1.4 cm, series 2 image 8 which is new from 12/15/2022. There is low right paratracheal adenopathy. There is a large area of consolidation within the right upper lobe slightly improved compared to prior. Tree-in-bud opacities throughout the left upper and lower lobes in a adan-bronchovascular distribution. There is a small left pleural effusion. No focal hepatic lesions. The portal vein and mesenteric vessels are patent. The gallbladder, adrenal glands, pancreas are normal. There are multiple hypoenhancing lesions throughout the splenic parenchyma largest in the left upper pole measuring 2.2 cm. There areas of hypoenhancement within the right kidney at the superior and inferior pole. No hydronephrosis. Urinary bladder is normal. No evidence of bowel obstruction. There is trace perihepatic and mesenteric free fluid. There is body wall edema and anasarca. There is retroperitoneal lymphadenopathy which has progressed since prior. The abdominal aorta is normal in caliber. There is compression of the infrarenal inferior vena cava due to the retroperitoneal lymphadenopathy although remains patent. Multiple enlarged pelvic sidewall and inguinal lymph nodes the largest measuring 1.7 cm, series 2 image 195, increased compared to prior. There are diffuse lucent lesions throughout the axial skeleton and pelvis which appears similar to 12/15/2022. Pathologic fracture of L4 vertebral body with loss of the superior and inferior endplates although similar to 12/15/2022. Additional unchanged pathologic compression fracture of T7. Increased lucent lesions within the femoral necks and left pubic symphysis. IMPRESSION: 1. Progression of lymphomatous diseased evidenced by increased multifocal adenopathy above and below the diaphragm with predominant involvement in the retroperitoneum and bilateral inguinal regions. 2. Worsening tree in bud opacities in the left upper and lower lobe suspicious for fungal or other atypical infection. Additional small left pleural effusion. 3. Interval development of hypoattenuating lesions within the spleen which may also represent an atypical fungal infection or progression of lymphoma. 4. Right upper lobe lung consolidation versus mass which is also suspicious for fungal infection versus lymphomatous involvement 5. Increased size of multifocal lytic lesions in the axial and appendicular skeleton notably involving the femoral necks which puts the patient at risk for pathologic fracture. Unchanged pathologic compression fractures of T7 and L4. 6. Areas of hypoenhancement within the right kidney may most likely due to pyelonephritis although infarcts can have a similar appearance. 7. Compression of the inferior vena cava by retroperitoneal lymphadenopathy, although the IVC remains patent. The findings, conclusions and recommendations within this report do not replace the initial findings, conclusions and recommendations made at the facility where the study was performed based upon the imaging and clinical condition at that time. Comparison with the prior report and clinical history is necessary. The provided images may or may not represent the [place] source data set and thus may contain changes that may lower the accuracy of this second-opinion interpretation. Dictated by: Mark Tsang MD The radiology attending physician has personally reviewed this study, and had reviewed and/or edited this written report and agrees with it. Electronically signed by: Jaycee Villaseñor M.D. Shasta Sena MD IMG CT PROCEDURES Final Re sult documented in this encounter Visit Diagnoses Diagnosis Diagnosis unknown documented in this encounter
--- OUTSIDE RECORDS SUMMARY | 2024-06-25 06:55 | XMS_ITS | Encounter Summary ---
Author Organization [facility] Healthcare Address [address] [place] [address] Care Team Providers Care An Employee Sponsor Or Advocate And Name Role Phone Unavailable Primary Care Provider Unavailabl e Reason for Referral * MRI/CAT/PET Scan (Routine) - Closed Specialty Diagnoses / Procedures Referred By Contac t Referred To Contact Radiology Diagnoses Diagnosis unknown Procedures Neuro MR Outside Consult Shasta Sena MD [address] [address] Phone: tel: fax: Referral ID Status Reason Start Date Expiration Date Visits Re quested Visits Authorized [id number] Closed 04/27/2023 05/26/2024 1 1 Reason for Visit * MRI/CAT/PET Scan (Routine) - Closed Specialty Diagnoses / Procedures Referred By Contac t Referred To Contact Radiology Diagnoses Diagnosis unknown Procedures Neuro MR Outside Consult Shasta Sena MD [facility] [address] [address] Phone: tel: fax: Referral ID Status Reason Start Date Expiration Date Visits Re quested Visits Authorized [id number] Closed 04/27/2023 05/26/2024 1 1 Encounter Details Date Type Department Care Team (Latest Contact Info) Description 04/27/2023 4:25 PM CDT - 04/27/2023 11:59 PM CDT Hospital Encounter [facility] [address] [place] [address] Diagnosis unknown Discharge Disposition: Discharge to home [...] on file Legal Sex Male 10:05 AM RADIO DISC JOCKEY Gender Identity Male 05/30/2023 9:41 PM RADIO DISC JOCKEY Sexual Orientation Straight 05/30/2023 9: 41 PM RADIO DISC JOCKEY documented as of this encounter Medications at [...] Comments NEURO MR OUTSIDE CONSULT Routine 04/27/2023 4:40 PM CDT Diagnosis unknown documented in this encounter Results * Neuro MR Outside Consult (04/27/2023 4:40 PM CDT) Anatomical Region Laterality Modality N/A [...] images may or may not represent the [place] source data set and thus may contain [...] IMAGING STUDY STUDY INITIALLY PERFORMED: 04/26/2023 at [facility]. TYPE OF STUDY: Multiple MR images of [...] IMAGING STUDY STUDY INITIALLY PERFORMED: 04/26/2023 at [facility]. TYPE OF STUDY: Multiple MR images of [...] images may or may not represent the [place] source data set and thus may contain [...]
--- OUTSIDE RECORDS SUMMARY | 2024-06-25 06:55 | XMS_ITS | Encounter Summary ---
Author Organization [facility] Healthcare Address [address] [place] [address] Care Team Providers Care Sales Associate Key Holder Name Role Phone Unavailable Primary Care Provider Unavailabl e Reason for Visit * MRI/CAT/PET Scan (Routine) - Closed Specialty Diagnoses / Procedures Referred By Contac t Referred To Contact Diagnoses Illness, unspecified Procedures Neuro MR Outside Reference Shasta Sena MD [address] [place] [address] Phone: tel: fax: [facility] [address] [place] [address] Phone: tel: Referral ID Status Reason Start Date Expiration Date Visits Re quested Visits Authorized [id number] Closed 04/27/2023 05/26/2024 1 1 Encounter Details Date Type Department Care Team (Latest Contact Info) Description 04/27/2023 4:16 PM CDT - 04/27/2023 11:59 PM CDT Hospital Encounter [facility]) [address] [place] [address] Discharge Disposition: Discharge to home or [...] on file 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. ??There will be no report generated by a [facility] Radiologist. Narrative [facility] - 04/27/2023 4:16 PM CDT EXAMINATION: ??Images For Reference Purposes Only us Shasta Sena MD IMG MRI PROCEDURES Final R esult [facility] documented in this encounter Visit Diagnoses Not on filedocumented in this encounter
--- OUTSIDE RECORDS SUMMARY | 2024-06-25 06:55 | XMS_ITS | Encounter Summary ---
Author Organization [facility] Healthcare Address [address] [place] [address] Care Team Providers Care Filling Technician Name Role Phone Unavailable Primary Care Provider Unavailabl e Reason for Referral * MRI/CAT/PET Scan (Routine) - Closed Specialty Diagnoses / Procedures Referred By Contac t Referred To Contact Radiology Diagnoses Diagnosis unknown Procedures Neuro MR Outside Consult Shasta Sena MD [address] [address] Phone: tel: fax: Referral ID Status Reason Start Date Expiration Date Visits Re quested Visits Authorized [id number] Closed 04/27/2023 05/26/2024 1 1 Reason for Visit * MRI/CAT/PET Scan (Routine) - Closed Specialty Diagnoses / Procedures Referred By Contac t Referred To Contact Radiology Diagnoses Diagnosis unknown Procedures Neuro MR Outside Consult Shasta Sena MD [facility] [address] Phone: tel: fax: Referral ID Status Reason Start Date Expiration Date Visits Re quested Visits Authorized [id number] Closed 04/27/2023 05/26/2024 1 1 Encounter Details Date Type Department Care Team (Latest Contact Info) Description 04/27/2023 5:04 PM CDT - 04/27/2023 11:59 PM CDT Hospital Encounter [facility] [address] [place] [address] Diagnosis unknown Discharge Disposition: Discharge to home [...] on file Legal Sex Male 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 TYPE OF STUDY: Multiple MR images of [...] [facility] TYPE OF STUDY: Multiple MR images of [...] images may or may not represent the [place] source data set and thus may contain [...]
--- OUTSIDE RECORDS SUMMARY | 2024-06-25 06:55 | XMS_ITS | Encounter Summary ---
Author Organization [facility] Address [address] [place] [address] Phone Care Team Providers Care Fabric Worker Supervisor Name Role Phone Shasta Sena MD Unavailable No, Physician Primary Care Provider [phone] Encounter Details Date Type Department Care Team (Late st Contact Info) Description 05/04/2023 Orders Only [facility] Oncology [address] [place] [address] Shasta Sena MD [address] [facility] [address] [place] [address] Social History Tobacco Use Types [...] on file Legal Sex Male 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
--- OUTSIDE RECORDS SUMMARY | 2024-06-25 06:55 | XMS_ITS | Encounter Summary ---
Author Organization [facility] Healthcare Address [address] [place] [address] Care Team Providers Care City Plant Supervisor Name Role Phone Unavailable Primary Care Provider Unavailabl e Reason for Visit * MRI/CAT/PET Scan (Routine) - Closed Specialty Diagnoses / Procedures Referred By Contac t Referred To Contact Diagnoses Illness, unspecified Procedures Neuro CT Outside Reference Shasta Sena MD [address] [place] [address] Phone: tel: fax: 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 ??There will be no report generated by a [facility] Radiologist. Narrative [facility] - 04/27/2023 4:17 PM CDT EXAMINATION: ??Images For Reference Purposes Only us Shasta Sena MD IMG CT PROCEDURES Final Re sult [facility] documented in this encounter Visit Diagnoses Not on filedocumented in this encounter
--- OUTSIDE RECORDS SUMMARY | 2024-06-25 06:55 | XMS_ITS | Encounter Summary ---
Author Organization [facility] Healthcare Address [address] [place] [address] Care Team Providers Care Police Officer Crime Prevention Name Role Phone Shasta Sena MD Unavailable [phone] Reason for Visit * Auth/Cert (Routine) Specialty Diagnoses / Procedures Referred By Contac t Referred To Contact Diagnoses Hodgkin lymphoma (HCC) HODGKINS LYMPHOMA Procedures n/a Referral ID Status Reason Start Date Expiration Date Visits Re quested Visits Authorized [id number] 1 1 Encounter Details Date Type Department Care Team (Latest Contact Info) Description 04/28/2023 10:54 AM CDT - 05/05/2023 3:18 PM CDT Hospital Encounter [address] [id number] Shasta Sena MD [address] [facility] [address] [place] [address] Richmond Ho MD [address] [facility] [address] [place] [address] Hodgkin lymphoma, unspecified Hodgkin lymphoma type, unspecified body region (HCC) (Primary Dx); Prevention of chemotherapy-induce d neutropenia Discharge Disposition: [...] on file Legal Sex Male 10:05 AM TAPE 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 Gender Identity Male 05/30/2023 9:41 PM TAPE WEAVER Sexual Orientation Straight 05/30/2023 9: 41 PM TAPE WEAVER documented as of this encounter Last Filed Vital Signs Vital Sign Reading Time Taken Comments Blood Pressure 130/61 05/05/2023 11:10 AM CDT Pulse 82 05/05/2023 11:10 AM CDT Temperature 36.8 ??C (98.2 ??F) 05/05/2023 11:10 AM C DT Respiratory Rate 18 05/05/2023 11:10 AM CDT Oxygen Saturation 100% 05/05/2023 11:10 AM CDT Inhaled Oxygen Concentration - - Weight 91.6 kg (202 lb) 05/04/2023 8:35 PM CDT Height 167.6 cm (5' 6 ) 04/28/2023 11:20 AM CDT Body Mass Index 32.6 04/28/2023 11:20 AM CDT documented in this encounter Discharge Summaries * Tabitha David MD - 05/05/2023 3:18 PM CDT Inpatient Discharge Summary BRIEF OVERVIEW Admitting Provider: Richmond Ho MD Discharge Provider: No att. providers found Primary Care Physician at Discharge: No, Physician [phone] Admission Date: 04/28/2023 Discharge Date: 05/05/2023 Admission Location: [facility] Problems/Diagnoses: Principal Problem: Hodgkin lymphoma (HCC) Active Problems: Pneumonia Double vision Bilateral leg edema Cervical spine disease Smoking Constipation Lumbar spine tumor Recurrent knee pain Lesion of right lung Prevention of chemotherapy-induced neutropenia Resolved Problems: No resolved hospital problems. DETAILS OF HOSPITAL STAY Presenting Problem/History of Present Illness: As per admitter H&P: Mr. Capone is a 33 yo man with PMH recurrent Hodgkin lymphoma, HFmrEF, PNA c/b intubation and septic shock, cigar and cigarette smoking, methamphetamine use, and EtOH use disorder (in remission) who presents from [facility] in [place], [place] for further management of recurrent Hodgkin lymphoma. Mr. Capone was diagnosed with Hodgkin lymphoma stage ALANA in 11/[address] Ashford, Oncology in [place], [place]. He completed ABVD (2 cycles) with imaging showing some areas of progression. He then started BEACOPP and completed 2 cycles and most of cycle 3 (up to day 8 on December 02, 2022) but stopped prednisone due to neutropenic fever. After 11/2022, he was supposed to have routine imaging for restaging; however, he was unable to attend any of his imaging or appointments due to lack of insurance coverage for transportation. He was admitted to a local hospital 12/14-12/21/22 with septic shock and acute hypoxic respiratory failure 2/2 RUL PNA requiring intubation. He was treated wi th broad spectrum antibiotics and filgastrim and was discharged home on room air. A CTA Chest was performed at that time due to a concern for SVC syndrome vs SVC thrombus raised during a previous hospitalization; it showed normal SVC. TTE showed EF 45-50%. One week ago, he developed new neck pain, BLE edema, and double vision. He presented to [facility] in [place], [place] where he was admitted 04/24 until transfer to [facility] 04/28. CT C/A/P 04/26 was notable for ([facility] overread): progression of lymphomatous disease (compared with CT 12/2022), worsening tree in bud opacities in the left upper and lower lobe suspicious for fungal or other atypicalinfection, hypoattenuating lesions within the spleen which may also represent an atypical fungal infection or progression of lymphoma, RUL consolidation versus mass which is also suspicious for fungal infection versus lymphomatous involvement, increased size of multifocal lytic lesions in the axialand appendicular skeleton, areas of hypoenhancement within the right kidney may most likely be due to pyelonephritis. bMRI, MRI T spine, MRI L spine 04/26 were notable for ([facility] overread): Mild diffuse dural enhancement which is indeterminate, diffuse osseous metastatic disease in the thoracic and lumbar spine with epidural extension of tumor at L4 results in severe canal stenosis, and epidural collections in the lumbar spine (ddx: epidural hematoma, infection/abscess, arachnoid cyst/hygroma, atypical, nonenhancing tumor). Patient denies any recent LP. MRI C-spine WO Con 04/25 images are not available, but per OSH report showed: prominent anterior epidural soft tissue extending from C3 to C5 contributing to moderate spinal canal stenosis. On CT C-spine he was found to have lytic lesions of C3-C5. Ortho Spine was consulted and did not plan surgical intervention. Rad Onc was consulted and planned palliative radiation to cervical spine lesions. Reportedly on 04/27 (records very limited), pt developed fever to 102 and was started on vanc, pip-tazo, and azithro for possible PNA. Patient reports on 04/27 he underwent biopsy of R inguinal lymph node without complication. Currently, Mr. Capone appears comfortable though he notes his pain medications are wearing off sohis neck pain is flaring again. He describes the pain as pinching and sometimes a/w tingling in his L hand. He also has low back pain which shoots down his proximal RLE. He denies weakness, numbness, or urinary changes. He reports constipation with last BM prior to OSH admission on 04/24. He thinks he may have a mild fever and night sweats, denies N/V/D. He continues to report intermittent double vision with photophobia; denies headache or vision loss. I discussed his admission with his mother Blanche Capone ([phone]) who is his POA. Notably, his mother was diagnosed with Hodgkin lymphoma age 51 and is now in remission as well as his maternal grandmother. Hospital Course: * Hodgkin lymphoma (HCC) Diagnosed with 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 Ashford, [place], [place]. S/p ABVD (2 cycles) with progression then BEACOPP (almost 3 cycles, stopped after cycle 3, day 8 due to neutropenic fever). Lost to follow-up after 11/2022. Now with diffuse progression of disease on CT C/A/P. PET-CT (04/29) showed extensive lymphomatous disease above and below the diaphragm including lymphadenopathy, osseous lesions, splenic involvement, and right gluteal intramuscular deposits. 5PS=5 and a large area of hypermetabolic consolidation in theright upper lobe with adjacent nodularity. MRI brain, spine w/ extensive disease. Pathology from R inguinal lymph node biopsy 04/27 at OSH remarkable for classic Hodgkin's lymphoma. Med onc team consulted and followed during hospitalization. Per discussion w/ Dr. Sena and inpatient MedOnc team,the patient was started on Dexamethasone and received C1 of Pembro-GVD on 05/04. His pain regimen was optimized and controlled with: morphine ER 45 mg BID, oxy 15 mg q4h PRN for breakthrough, gabapentin to 600 mg TID, duloxetine 60 mg daily, and lidocaine patch. Pneumonia Reported fever to 102 at OSH 04/27 with chest imaging c/f RUL PNA, possibly fungal. CT C/A/P 04/26 with nodularities in left lung and spleen as well possibly c/f fungal infection. Started on IV vanc+pip-tazo+azithro at OSH (04/27-04/28). CXR on admission showed RUL airspace opacity, likely infectious pneumonia. Blood cx neg. Histo, Blasto, Crypto, Coccidio, Aspergillus, mold culture neg. PET CT w/ Large area of hypermetabolic consolidation in the right upper lobe with adjacent nodularity. IP was consulted, bronchoscopy w/ biopsy done w/ path c/w acute and chronic inflammation. Pt received azithro (04/28-04/30) and vanc/cefe/flagyl (04/28-05/05) to complete 7 days of abx. ID consulted and recommended against empiric antifungal coverage given the results above. Double vision bMRI showing indeterminant mild diffuse dural enhancement. Visual alcaraz intact, EOMI on exam. Ophthalmology consulted w/ recommendation for MRI brain with orbits W con, which was without explanatorylesion, although motion artifact limited. Lumbar spine tumor L-spine MRI W Con 04/26 with epidural extension of tumor at L4 results in severe canal stenosis, also with epidural collections of undetermined significance in lumbar spine. Pt denies recent LP. Neuro exam with 5/5 strength BLEs, normal sensation. Per Onc recs, consulted Neuro (rather than NSGY) because Onc does not feel pt would benefit from surgery but would like Neuro evaluation. Extensive workup completed which was grossly negative, lesions likely Hodgkin's lymphoma. Neurology recommendedre-engagement after treatment if lesions or enhancement persist. Cervical spine disease OSH MRI C-spine WO Con with prominent anterior epidural soft tissue extending from C3 to C5 contributing to moderate spinal canal stenosis. CT C-spine with lytic lesions of C3-C5. Neuro exam with 5/5 strength BUEs, no sensory deficits. Neurology and Medical Oncology consultations as above. Recurrent knee pain Patient w/ acute on chronic R knee pain, had sports injury many years ago, currently flaring. X-rayR knee reassuring. Improved with steroids being prescribed for HL. Bilateral leg edema BLE edema for past week likely 2/2 lymphadenopathy with venous compression. Also TTE during recent hospitalization with EF 45-50%. TTE w/ normal LV+RV morphology/fx, small pericardial effusion, Duplex w/o e/o DVT. Constipation Reports last BM at least 4 days prior to admission. KUB w/ moderate stool burden in R hemicolon, mild in L hemicolon. Bowel regimen at discharge was daily miralax and pericolace Smoking Continued home nicotine patch Active Issues Requiring Follow-up: - Lymphoma Test Results Pending at Discharge: Pending Labs Order Current Status Lactate dehydrogenase (LD) In process Vancomycin level random In process Mold Blood Culture Blood Preliminary result Operative Procedures Performed: Other Procedures: Pertinent Test Results: As per hospital course Discharge Details Physical Exam at Discharge: Discharge Condition: good Pulse: 82 Resp: 18 BP: 130/61 Temp: 36.8 ??C (98.2 ??F) Weight: 91.6 kg (202 lb) Pertinent Exam Findings at Discharge: None Discharge Disposition: Discharge to home or self care Code Status at Discharge: Full Discharge Instructions: Your next follow-up appointment for chemotherapy with Dr. Sena is scheduled for 05/13/23, you will see Dr. Sena in clinic at the following address: [facility] [address], [address] [address] Discharge Medications: Current Medications TAKE these medications acyclovir 400 mg tablet Take 1 tablet (400 mg total) by mouth 2 (two) times a day For: Prophylaxis, Medical Commonly known as: ZOVIRAX albuterol HFA 90 mcg/actuation inhaler Inhale 2 puffs once as needed for wheezing or shortness of breath (if Nebulizer not available) Commonly known as: PROVENTIL HFA,VENTOLIN HFA,PROAIR HFA DULoxetine DR 60 mg capsule Take 1 capsule (60 mg total) by mouth daily Commonly known as: CYMBALTA gabapentin 600 mg tablet Take 1 tablet (600 mg total) by mouth 3 (three) times a day Commonly known as: NEURONTIN lidocaine 4 % adhesive patch,medicated Place 1 patch on the skin daily Commonly known as: ASPERCREME nicotine [address] 1 patch on the skin daily Commonly known as: NICODERM CQ pantoprazole DR 40 mg EC tablet Take 1 tablet (40 mg total) by mouth 2 (two) times a day For: Stress Ulcer Prophylaxis Commonly known as: PROTONIX polyethylene glycol 17 gram/dose bulk powder Take 17 g by mouth daily For: constipation Commonly known as: MIRALAX senna-docusate 8.6-50 mg Take 1 tablet by mouth 2 (two) times a day Commonly known as: PERICOLACE ASK your doctor about these medications oxyCODONE 15 mg immediate release tablet Take 1 tablet (15 mg total) by mouth every 4 (four) hours as needed for pain for up to 10 days For: pain Commonly known as: ROXICODONE Ask about: Should I take this medication? Outpatient Follow-Up: Future Appointments Date Time Provider Department Center 05/26/2023 10:15 AM LAB, [facility] ONC ONC LAB [facility] 05/26/2023 11:15 AM Shasta Sena MD ONC [facility] 05/26/2023 12:30 PM POD 9 CAM ONC INF [facility] 06/02/2023 10:15 AM LAB, [facility] ONC ONC LAB [facility] 06/02/2023 11:15 AM Shasta Sena MD ONC [facility] 06/02/2023 12:30 PM POD X CAM ONC INF [facility] 06/10/2023 10:15 AM Isaura Murphy MD [facility] OP 06/16/2023 9:15 AM LAB [facility] 7 ONC ONC LAB [facility] 06/16/2023 10:20 AM [facility] PETINJ [facility] 06/16/2023 11:40 AM [facility] N PET02 [facility] PET [facility] 06/16/2023 12:30 PM Shasta Sena MD ONC [facility] 06/16/2023 1:00 PM POD 6 CAM ONC INF [facility] 06/23/2023 10:30 AM LAB, CAM 7 ONC ONC LAB [facility] 06/23/2023 11:30 AM Shasta Sena MD ONC [facility] 06/23/2023 12:30 PM POD 6 CAM ONC INF [facility] INF WEAVER documented in this encounter Discharge Instructions * Discharge Instructions* Annette Acosta NP - 05/05/2023 12:57 PM CDT Your next follow-up appointment for chemotherapy with Dr. Sena is scheduled for 05/13/23, you will see Dr. Sena in clinic at the following address: [address], [address] [address] documented in this encounter Medications at Time [...] catheter every 6 (six) hours 04/28/2023 3 gabapentin (NEURONTIN) 600 mg tablet Take [...] 05/05/2023 3 documented as of this encounter Ordered Prescriptions Prescription Sig Dispense Quantity Refills Last Filled Start Date End Date DULoxetine DR (CYMBALTA) 60 mg capsule Take 1 capsule (60 mg total) by mouth daily 30 capsule 11 05/06/2023 albuterol HFA (PROVENTIL HFA,VENTOLIN HFA,PROAIR HFA) 90 mcg/actuation inhalerIndications :Hodgkin lymphoma, unspecified Hodgkin lymphoma type, unspecified body region (HCC) Inhale 2 puffs once as needed for wheezing or shortness of breath (if Nebulizer not available) 1 each 05/05/2023 senna-docusate (PERICOLACE) 8.6-50 mg Take 1 tablet by mouth 2 (two) times a day 60 tablet 05/05/2023 3 polyethylene glycol (MIRALAX) 17 gram/dose bulk powderIndications: constipation Take 17 g by mouth daily 510 g 05/05/[address] (PROTONIX) 40 mg EC tabletIndications: Stress Ulcer Prophylaxis Take 1 tablet (40 mg total) by mouth 2 (two) times a day 60 tablet 11 05/05/2023 3 oxyCODONE (ROXICODONE) 15 mg immediate release tabletIndications: Pain Take 1 tablet (15 mg total) by mouth every 4 (four) hours as needed for pain for up to 10 days 45 tablet 05/05/2023 3 nicotine (NICODERM CQ) [address] 1 patch on the skin daily 30 patch 05/05/2023 3 morphine ER (MS CONTIN) 15 mg 12 hr tablet Take 3 tablets (45 mg total) by mouth 2 (two) times a day for 10 days 60 tablet 05/05/2023 3 lidocaine (ASPERCREME) 4 % adhesive patch,medicated Place 1 patch on the skin daily 30 patch 05/06/2023 3 gabapentin (NEURONTIN) 600 mg tablet Take 1 tablet (600 mg total) by mouth 3 (three) times a day 90 tablet 11 05/05/2023 3 acyclovir (ZOVIRAX) 400 mg tabletIndications: Prophylaxis, Medical Take 1 tablet (400 mg total) by mouth 2 (two) times a day 60 tablet 05/05/2023 3 documented in this encounter Discharge Disposition Disposition Code Departure Means Destination Comment s Discharge to home or self care documented in this encounter Progress Notes * Tabitha David MD - 05/05/2023 3:18 PM CDT Daily Progress Note Division of Hospital Medicine Name: Crystal Capone : 1990 Service Date: May 05, 2023 Age: 33 y.o. male Admission: 04/28/2023 Bed: [id number] LOS: 7 days Subjective Chief complaint: recurrent Hodgkin lymphoma. Interval History - Pt's pain controlled on current regimen, agreeable w/ discharge. - Tolerated chemo. - D/w med onc. Objective Scheduled Meds PRN Meds Infusions No current facility-administered medications for this encounter. Vitals Most Recent Vitals: T 36.8 ??C (98.2 ??F), HR 82, BP 130/61, RR 18, SpO2 100 %. 24hr Min/Max: Temp Min: 36.3 ??C (97.3 ??F) Max: 36.8 ??C (98.2 ??F) Pulse Min: 66 Max: 89 BP Min: 114/52 Max: 130/61 Resp Min: 18 Max: 18 SpO2 Min: 98 % Max: 100 % Intake/Output Summary (Last 24 hours) at 05/05/20232107 Last data filed at 05/05/2023 0840 Gross per 24 hour Intake -- Output 750 ml Net -750 ml Physical Exam Constitutional: NAD, well developed, well nourished Eyes: PERRL, EOMI, anicteric ENT: NCAT, oropharynx normal, moist mucus membranes Lungs: Clear to auscultation in all lung alcaraz, unlabored, trachea midline Cardiovascular: RRR, normal S1 and S2, no murmurs, no JVD GI: Soft, non-tender, non-distended, bowel sounds +, no organomegaly Skin: No new rashes, lesions or bruises Extremities: Normal without edema or cyanosis Lymph: No cervical, supraclavicular, axillary or inguinal adenopathy Neurologic: AOx4, CNII-XII intact, normal strength and sensation Psychiatric: Normal affect and mood I have reviewed the patient's vital signs. Lines, Drains, Airways Single Lumen Implantable Port 07/05/21 Power Chest Right (Active) Labs/Diagnostic Review Recent Results (from the past 36 hour(s)) CBC with auto differential Collection Time: 05/05/23 3:27 AM Result Value Ref Range WBC 11.8 (H) 3.8 - 9.9 K/cumm Hgb 7.9 (L) 13.0 - 17.5 g/dL Hct 26.2 (L) 38.9 - 50.3 % Plt 309 150 - 400 K/cumm MPV 9.7 9.1 - 12.3 fL RBC 3.31 (L) 4.30 - 5.80 M/cumm MCV 79.2 (L) 81.3 - 96.4 fL MCH 23.9 (L) 27.1 - 33.3 pg MCHC 30.2 (L) 32.3 - 35.7 g/dL RDW CV 20.9 (H) 11.1 - 14.9 % RDW SD 52.4 (H) 35.7 - 48.1 fL NRBC abs 0.00 0.00 - 0.01 K/cumm Magnesium Collection Time: 05/05/23 3:27 AM Result Value Ref Range Magnesium 1.8 1.4 - 2.5 mg/dL Comprehensive metabolic panel Collection Time: 05/05/23 3:27 AM Result Value Ref Range Sodium 139 135 - 145 mmol/L Potassium, pl 4.5 3.3 - 4.9 mmol/L Chloride 103 97 - 110 mmol/L CO2 33 (H) 22 - 32 mmol/L Anion gap 3 2 - 15 mmol/L BUN 18 6 - 25 mg/dL Creatinine 0.64 (L) 0.80 - 1.30 mg/dL Glucose 114 70 - 199 mg/dL Calcium 7.5 (L) 8.5 - 10.3 mg/dL Bilirubin, total 0.3 0.1 - 1.2 mg/dL Protein, pl 5.1 (L) 6.5 - 8.5 g/dL Albumin 2.5 (L) 3.5 - 5.0 g/dL Alk phos 115 40 - 130 Units/L ALT 11 7 - 55 Units/L AST 12 10 - 50 Units/L Phosphorus Collection Time: 05/05/23 3:27 AM Result Value Ref Range Phosphorus, pl 2.9 2.3 - 4.5 mg/dL Differential, auto Collection Time: 05/05/23 3:27 AM Result Value Ref Range Neutrophil abs 10.8 (H) 1.7 - 6.5 K/cumm Imm gran abs 0.3 (H) 0.0 - 0.1 K/cumm Lymphocyte abs 0.1 (L) 0.8 - 3.3 K/cumm Monocyte abs 0.6 0.2 - 0.8 K/cumm Eosinophil abs 0.0 0.0 - 0.5 K/cumm Basophil abs 0.0 0.0 - 0.1 K/cumm Neutrophil pct 91.5 % Imm gran pct 2.3 % Lymphocyte pct 0.7 % Monocyte pct 5.4 % Eosinophil pct 0.1 % Basophil pct 0.0 % eGFR Collection Time: 05/05/23 3:27 AM Result Value Ref Range eGFR >90 90 - 130 mL/min/1.73 m2 INR - (Labs above are the most recent result obtained in the last 24 hours. For additional labs/trends, see Epic.) I have reviewed the laboratory results. Imaging Review XR Knee Right 1 or 2 Views Narrative: EXAMINATION: XR KNEE RIGHT 1 OR 2 VIEWS HISTORY: Right knee pain FINDINGS: 2 views of the right knee were performed without prior comparison. There is a trace right knee joint effusion. There is no acute fracture. Joint spaces are normal. No suspicious osseous lytic or blastic lesion is seen. Impression: No acute fracture of the right knee. Electronically signed by: Zay Cordova M.D. I have independently reviewed and interpreted the imaging findings. Assessment/Plan Lesion of right lung Assessment & Plan Patient's PET scan notable for hypermetabolic consolidation of the left lung concerning for metastatic disease versus infection. - Interventional Pulm consulted for biopsy, s/p lung bx (04/30) - Pathology w/ acute and chronic inflammation, no e/o malignancy. CX neg for infection. Recurrent knee pain Assessment & Plan Patient w/ acute on chronic R knee pain, had sports injury many years ago, currently flaring. - X-ray R knee reassuring - Steroids being prescribed for HL Lumbar spine tumor Assessment & Plan L-spine MRI W Con 04/26 with epidural [...] checks - Pharmacologic pain regimen described elsewhere Constipation Assessment & Plan Reports last BM at least 4 days ago. - KUB w/ moderate stool burden in R hemicolon, mild in L hemicolon - Daily Miralax, senna-doc Smoking Assessment & Plan - Continue home nicotine patch Cervical spine disease Assessment & Plan OSH MRI C-spine WO Con with prominent anterior epidural soft tissue extending from C3 to C5 contributing to moderate spinal canal stenosis. CT C-spine with lytic lesions of C3-C5. Neuro exam with 5/5 strength BUEs, no sensory deficits. - MRI C-spine W Con - Routine neuro checks - Defer RadOnc pending discussions and evaluation for systemic treatment - Pharmacologic pain control described elsewhere Bilateral leg edema Assessment & Plan BLE edema for past week likely 2/2 lymphadenopathy with venous compression. Also TTE during recent hospitalization with EF 45-50%. - TTE w/ normal LV+RV morphology/fx, small pericardial effusion - Duplex w/o e/o DVT - S/p diuresis w/ lasix c/b metabolic alkalosis. Holding off further diuresis. Double vision Assessment & Plan With bMRI showing indeterminant mild diffuse dural enhancement. Assessment: - Visual alcaraz intact, EOMI - MRI brain with orbits W con w/o explanatory lesion, although motion artifact limited Plan: - Rx of lymphoma as per elsewhere - Per ID, no need for empiric meningitic coverage - Ophthalmology consulted Pneumonia Assessment & Plan Reported fever to 102 at OSH 04/27 with chest imaging c/f RUL PNA, possibly fungal. Started on IV vanc+pip-tazo+azithro at OSH (04/27-04/28), per OSH lab cultures were not drawn. On room air, no dyspnea. Will treat as hospital- acquired PNA with a possible post-obstructive component requiring [...] 7 days of abx, discussed w. ID. * Hodgkin lymphoma (HCC) Assessment & Plan Diagnosed with 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 Ashford, [place], [place]. S/p ABVD (2 cycles) with progression [...] duloxetine 60 mg daily, and lidocaine patch Pt discussed in DCAM w/ the onc consult team, the pharmacist, the charge nurse, the mobile plant operators, the charge nurse, the SW/CM/nurse coordinator. Diet: No diet orders on file Fluids: Per chemo protocol LDA: Port DVT ppx: Lovenox Code status: Prior PT/OT Dispo Rec: / Disposition: discharge home Discharge Planning I have spent 50 minutes on discharge planning activities. Time spent was on Coordination of care, Follow up , Counselling with patient/family, discharge exam, parent/patient education, and Other provider communication. Tabitha David MD Hospitalist [phone] * Annette Acosta NP - 05/05/2023 1:59 PM CDT Medical Oncology Brief Note Subjective []Expand by Default Crystal [place] is a 33yom w/ history of refractory HL, most recently treated in November with BEACOPP, presents with c/f relapsed disease. Interval History: Patient was awake this morning feeling well. He reports pain is well controlled and would be very interested in discharging home today if possible. We discussed transportation arrangements and discussed next follow-up with treatment with Dr. Sena would be 05/13. Plan to d/c home with his mother (Blanche) later this afternoon. Tolerated chemotherapy well. Assessment/Plan #Refractory Hodgkin's lymphoma Dx in 11/2021, originally treated with ABVD followed by BEACOPP; only received up to C3D8 in 11/2022 - Had 12/2022 admission for pna/sepsis/neutropenia. Required pressors and intubation, no further treatment after hospitalization - Now presents from OSH with recurrent/worsening disease - CT w/ progression of lymphomatous diseased evidenced by increased multifocal adenopathy above andbelow the diaphragm with predominant involvement in the retroperitoneum and bilateral inguinal regions, increased size of multifocal lytic lesions in the axial and appendicular skeleton notably involving the femoral necks which puts the patient at risk for pathologic fracture. Unchanged pathologic compression fractures of T7 and L4. - MRI brain/thoracic/lumbar: diffuse dural enhancement, diffuse osseous metastatic disease in the thoracic and lumbar spine as detailed above, with unchanged pathologic fractures of T7 and L4 with new pathologic fracture of T11. Epidural extension of tumor at L4 results in severe canal stenosis. - Inguinal LN biopsy 04/27 at OSH; Pathology Resulted in Care Everywhere 05/01: Final Dx: Classic Hodgkin Lymphoma - Outpatient team will obtain path from original biopsy - PET 04/29: Extensive lymphomatous disease above and below the diaphragm including lymphadenopathy, osseous lesions, splenic involvement, and right gluteal intramuscular deposits. Large area of hypermetabolic consolidation in the right upper lobe with adjacent nodularity. - Discuss if plan for inpt chemo once further work up has been completed - Continue dex 10mg f/b 4q6hr (04/29- ) - Staffed with Dr. Sena 04/28; previously followed at OSH with Dr. Ashford; Initiated C1D1 Pembro+GVD 05/04; tolerated well. Next follow-up appointment 05/[address] Sena and D8 chemotherapy administration. #Encounter for Chemotherapy 05/04 Initiation C1D1 Pembro + GVD (21 day regime)(Chemo consent signed by patient at bedside: Chemo education provided by PRODUCTION LINE TECHNICIAN to both patient and his mother (Blanche- per phone)). -D1: Pre-medications: Zofran 16mg PO and Dexamethasone 10mg IV will be administered 30 minutes before initiation of therapy. -D1: Will receive IV pembrolizumab 200mg IV, f/b Vinorelbine 40mg IV, f/b Gemcitabine 2000mg IV, f/b Doxorubicin IV. -OI PPX: Acyclovir 400mg BID -Will monitor for hypersensitivity reactions during administration -Supportive care: PRN Ondansetron q8 hours for n/v -Will monitor daily CBCs, CMPs during administration -Daily weights #Blurred vision Reports blurred vision x 1 week. Covering eye on exam, made worse when looking forward - 04/29-Orbital MRI-Evaluation of the orbits limited by motion artifacts. Within this limitation, no apparent lesion to explain patient's symptoms. - Optho consult; agree with MRI- will obtain LP only if Optho c/f for leptomeningeal disease; will follow-up with recs #Ataxia Ongoing weakness with multiple falls over the last few weeks, likely related to spinal cord involvement. No other emergeny signs of cord compression - Recommend Neurology consult: recommend workup for meningeal enhancement (RAYA, JAVIER, ANCA, ESR, CRP, RF/CCP, RPR , HIV, cryptococcal antigen. Can consider T- spot given lung nodules), consider LP if c/f leptomeningeal disease - PT/OT #Fever Febrile at OSH, though no reports of blood cultures obtained. Was started on abx prior to transfer.No clear focal symptoms at this time - Worsening tree in bud opacities in the left upper and lower lobe suspicious for fungal or other atypical infection. - Repeat peripheral and blood cultures, UA, CXR - ID has been consulted: recommend fungal cultures, though asymptomatic so less suspicion true infection - Obtain sputum culture, serum Cocci Ab, Blasto Ab, Histo Ur Ag - Abx per primary: Azithromycin/Cefe (04/28-05/04 ) - IP consulted : s/p Bronchoscpy 04/30 : Path negative for malignancy #Anasarca #BLE Worsening abd distention as well as BLE swelling over the last week, risen to scrotal on admission - Most recent echo w/ EF to be 45 to 50% on echocardiogram 12/16/2022 - Consider repeat TTE; LVEF 62% - Recommend BLE dopplers: no evidence of acute deep vein thrombosis in the lower extremities This patient was staffed with Dr. Kurtz -Medical Oncologist Annette Acosta, [id number] Inpatient Nurse Practitioner for the Division of Medical Oncology Work cell: [phone] Cosigned by Jeremiah Kurtz MD PhD at 05/05/2023 4:50 PM CDT Associated attestation - Jeremiah Kurtz MD PhD - 05/05/2023 4:50 PM CDT I have seen and examined the patient on 05/05/23 in conjunction with the non- physician provider. History: Crystal Capone is a 33yom w/ refractory HL, who presents with c/f relapsed disease. Lab/Radiology/Diagnostics Review: Lab Results Component Value Date WBC 11.8 (H) 05/05/2023 HGB 7.9 (L) 05/05/2023 HCT 26.2 (L) 05/05/2023 MCV 79.2 (L) 05/05/2023 LABPLAT 309 05/05/2023 Chemistry Lab Results Component Value Date SODIUM 139 05/05/2023 POTASSIUM 4.5 05/05/2023 CHLORIDE 103 05/05/2023 CO2 33 (H) 05/05/2023 ANIONGAP 3 05/05/2023 BUNSER 18 05/05/2023 CREATININE 0.64 (L) 05/05/2023 GLUCOSE 114 05/05/2023 URICACID 2.1 (L) 05/03/2023 CALCIUM 7.5 (L) 05/05/2023 BILITOT 0.3 05/05/2023 ALBUMIN 2.5 (L) 05/05/2023 GFRNAA >90 05/05/2023 ALKPHOS 115 05/05/2023 AST 12 05/05/2023 ALT 11 05/05/2023 PHOS 2.9 05/05/2023 MAGNESIUM 1.8 05/05/2023 Assessment/Plan Completed C1D1 of Pembro+GVD. Ok to discharge with outpatient followup. Appt on 05/[address] Sena. Back pain and sciatica controlled with lidocaine patches and gabapentin 600 mg TID. Abdominal and BLE edema improved after diuresis. Vision improved. Jeremiah Kurtz MD PhD * Tabitha David MD - 05/04/2023 6:33 PM CDT Daily Progress Note Division of Hospital Medicine Name: Crystal Capone : 1990 Service Date: May 04, 2023 Age: 33 y.o. male Admission: 04/28/2023 Bed: [id number] LOS: 6 days Subjective Chief complaint: recurrent Hodgkin lymphoma. Interval History - Pt is still having significant pain, added lidocaine patch, increased MSContin to 45 mg po bid, gabapentin to 600 mg tid and oxycodone to 15 mg q4hrs PRN. - Micro and pathology negative for infection. Pt received 7 days of antibiotics, dc'ed. Reviewed ID's notes, agreeable w/ stopping abx.' - Discussed w/ med onc, started on C1 pembro+GVD today. Objective Scheduled Meds PRN Meds Infusions acyclovir, 400 mg, oral, BID DULoxetine DR, 60 mg, oral, Daily enoxaparin, 40 mg, subcutaneous, Daily-2100 gabapentin, 600 mg, oral, TID heparin flush (porcine), 5 mL, intra-catheter, BID lidocaine, 1 patch, transdermal, Q24H morphine ER, 45 mg, oral, BID nicotine, 1 patch, transdermal, Daily pantoprazole DR, 40 mg, oral, BID polyethylene glycol, 17 g, oral, Daily senna-docusate, 1 tablet, oral, BID sodium chloride 0.9%, 10 mL, intra-catheter, Q12H CADY acetaminophen, 500 mg, Q6H PRN albuterol, 2.5 mg, Once PRN albuterol HFA, 2 puff, Once PRN sodium chloride 0.9%, 30 mL, PRN diphenhydrAMINE, 25 mg, Q15 Min PRN diphenhydrAMINE, 50 mg, Once PRN EPINEPHrine, 0.3 mg, Q15 Min PRN famotidine, 20 mg, Q15 Min PRN heparin flush (porcine), 2-5 mL, PRN hydrocortisone, 100 mg, Once PRN HYDROmorphone, 1 mg, Q3H PRN magnesium oxide, 400 mg, Q4H PRN magnesium sulfate, 2 g, Q4H PRN magnesium sulfate, 4 g, Q4H PRN magnesium sulfate, 6 g, Q4H PRN meperidine, 25 mg, Q15 Min PRN ondansetron, 8 mg, Q8H PRN Or ondansetron, 8 mg, Q8H PRN oxyCODONE, 15 mg, Q4H PRN perflutren protein-a (OPTISON) 3 mL in sodium chloride 0.9% 8 mL syringe, 1-8 mL, Once in imaging potassium chloride ER, 40 mEq, Q2H PRN sodium chloride 0.9%, 500 mL, Once PRN sodium chloride 0.9%, 10-20 mL, PRN sodium chloride 0.9%, 30 mL/hr, Continuous PRN sodium chloride 0.9%, 30 mL/hr, Once PRN sodium phosphate - potassium phosphate, 500 mg, Daily PRN dextrose 5%, 30 mL/hr, Last Rate: 30 mL/hr (05/04/231958) sodium chloride 0.9%, 30 mL/hr sodium chloride 0.9%, 30 mL/hr Vitals Most Recent Vitals: T 36.6 ??C (97.8 ??F), HR 88, BP 116/62, RR 18, SpO2 98 %. 24hr Min/Max: Temp Min: 36.4 ??C (97.5 ??F) Max: 36.6 ??C (97.8 ??F) Pulse Min: 73 Max: 98 BP Min: 116/62 Max: 128/63 Resp Min: 18 Max: 18 SpO2 Min: 98 % Max: 100 % Intake/Output Summary (Last 24 hours) at 05/04/20232050 Last data filed at 05/04/20232034 Gross per 24 hour Intake 967.5 ml Output 2000 ml Net -1032.5 ml Physical Exam Constitutional: NAD, well developed, well nourished Eyes: PERRL, EOMI, anicteric ENT: NCAT, oropharynx normal, moist mucus membranes Lungs: Clear to auscultation in all lung alcaraz, unlabored, trachea midline Cardiovascular: RRR, normal S1 and S2, no murmurs, no JVD GI: Soft, non-tender, non-distended, bowel sounds +, no organomegaly Skin: No new rashes, lesions or bruises Extremities: Normal without edema or cyanosis Lymph: No cervical, supraclavicular, axillary or inguinal adenopathy Neurologic: AOx4, CNII-XII intact, normal strength and sensation Psychiatric: Normal affect and mood I have reviewed the patient's vital signs. Lines, Drains, Airways Single Lumen Implantable Port 07/05/21 Power Chest Right (Active) Labs/Diagnostic Review Recent Results (from the past 36 hour(s)) CBC with auto differential Collection Time: 05/04/23 3:19 AM Result Value Ref Range WBC 14.5 (H) 3.8 - 9.9 K/cumm Hgb 7.7 (L) 13.0 - 17.5 g/dL Hct 25.8 (L) 38.9 - 50.3 % Plt 374 150 - 400 K/cumm MPV 9.0 (L) 9.1 - 12.3 fL RBC 3.33 (L) 4.30 - 5.80 M/cumm MCV 77.5 (L) 81.3 - 96.4 fL MCH 23.1 (L) 27.1 - 33.3 pg MCHC 29.8 (L) 32.3 - 35.7 g/dL RDW CV 19.7 (H) 11.1 - 14.9 % RDW SD 47.2 35.7 - 48.1 fL NRBC abs 0.02 (H) 0.00 - 0.01 K/cumm Magnesium Collection Time: 05/04/23 3:19 AM Result Value Ref Range Magnesium 1.6 1.4 - 2.5 mg/dL Comprehensive metabolic panel Collection Time: 05/04/23 3:19 AM Result Value Ref Range Sodium 139 135 - 145 mmol/L Potassium, pl 3.9 3.3 - 4.9 mmol/L Chloride 102 97 - 110 mmol/L CO2 35 (H) 22 - 32 mmol/L Anion gap 2 2 - 15 mmol/L BUN 13 6 - 25 mg/dL Creatinine 0.71 (L) 0.80 - 1.30 mg/dL Glucose 108 70 - 199 mg/dL Calcium 7.7 (L) 8.5 - 10.3 mg/dL Bilirubin, total 0.2 0.1 - 1.2 mg/dL Protein, pl 5.0 (L) 6.5 - 8.5 g/dL Albumin 2.4 (L) 3.5 - 5.0 g/dL Alk phos 122 40 - 130 Units/L ALT 12 7 - 55 Units/L AST 11 10 - 50 Units/L Phosphorus Collection Time: 05/04/23 3:19 AM Result Value Ref Range Phosphorus, pl 1.5 (L) 2.3 - 4.5 mg/dL Differential, auto Collection Time: 05/04/23 3:19 AM Result Value Ref Range Neutrophil abs 12.8 (H) 1.7 - 6.5 K/cumm Imm gran abs 0.3 (H) 0.0 - 0.1 K/cumm Lymphocyte abs 0.3 (L) 0.8 - 3.3 K/cumm Monocyte abs 1.0 (H) 0.2 - 0.8 K/cumm Eosinophil abs 0.1 0.0 - 0.5 K/cumm Basophil abs 0.0 0.0 - 0.1 K/cumm Neutrophil pct 88.4 % Imm gran pct 2.3 % Lymphocyte pct 1.9 % Monocyte pct 7.0 % Eosinophil pct 0.3 % Basophil pct 0.1 % eGFR Collection Time: 05/04/23 3:19 AM Result Value Ref Range eGFR >90 90 - 130 mL/min/1.73 m2 Vancomycin level trough Draw 30 minutes prior to AM dose Collection Time: 05/04/23 6:40 AM Result Value Ref Range Vancomycin trough 14.0 10.0 - 20.0 mcg/mL INR 1.39 (Labs above are the most recent result obtained in the last 24 hours. For additional labs/trends, see Epic.) I have reviewed the laboratory results. Imaging Review XR Knee Right 1 or 2 Views Narrative: EXAMINATION: XR KNEE RIGHT 1 OR 2 VIEWS HISTORY: Right knee pain FINDINGS: 2 views of the right knee were performed without prior comparison. There is a trace right knee joint effusion. There is no acute fracture. Joint spaces are normal. No suspicious osseous lytic or blastic lesion is seen. Impression: No acute fracture of the right knee. Electronically signed by: Zay Cordova M.D. I have independently reviewed and interpreted the imaging findings. Assessment/Plan Lesion of right lung Assessment & Plan Patient's PET scan notable for hypermetabolic consolidation of the left lung concerning for metastatic disease versus infection. - Interventional Pulm consulted for biopsy, s/p lung bx (04/30) - Pathology w/ acute and chronic inflammation, no e/o malignancy. CX neg for infection. Recurrent knee pain Assessment & Plan Patient w/ acute on chronic R knee pain, had sports injury many years ago, currently flaring. - X-ray R knee reassuring - Steroids being prescribed for HL Lumbar spine tumor Assessment & Plan L-spine MRI W Con 04/26 with epidural [...] checks - Pharmacologic pain regimen described elsewhere Constipation Assessment & Plan Reports last BM at least 4 days ago. - KUB w/ moderate stool burden in R hemicolon, mild in L hemicolon - Daily Miralax, senna-doc Smoking Assessment & Plan - Continue home nicotine patch Cervical spine disease Assessment & Plan OSH MRI C-spine WO Con with prominent anterior epidural soft tissue extending from C3 to C5 contributing to moderate spinal canal stenosis. CT C-spine with lytic lesions of C3-C5. Neuro exam with 5/5 strength BUEs, no sensory deficits. - MRI C-spine W Con - Routine neuro checks - Defer RadOnc pending discussions and evaluation for systemic treatment - Pharmacologic pain control described elsewhere Bilateral leg edema Assessment & Plan BLE edema for past week likely 2/2 lymphadenopathy with venous compression. Also TTE during recent hospitalization with EF 45-50%. - TTE w/ normal LV+RV morphology/fx, small pericardial effusion - Duplex w/o e/o DVT - S/p diuresis w/ lasix yesterday c/b metabolic alkalosis. Will hold off further diuresis. Double vision Assessment & Plan With bMRI showing indeterminant mild diffuse dural enhancement. Assessment: - Visual alcaraz intact, EOMI - MRI brain with orbits W con w/o explanatory lesion, although motion artifact limited Plan: - Rx of lymphoma as per elsewhere - Per ID, no need for empiric meningitic coverage - Ophthalmology consulted Pneumonia Assessment & Plan Reported fever to 102 at OSH 04/27 with chest imaging c/f RUL PNA, possibly fungal. Started on IV vanc+pip-tazo+azithro at OSH (04/27-04/28), per OSH lab cultures were not drawn. On room air, no dyspnea. Will treat as hospital- acquired PNA with a possible post-obstructive component requiring [...] 7 days of abx, discussed w. ID. * Hodgkin lymphoma (HCC) Assessment & Plan Diagnosed with 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 Ashford, [place], [place]. S/p ABVD (2 cycles) with progression [...] with Dr. Sena and Medical Oncology - Started Dex 10 mg x1 followed by 4 mg - will start C1 Pembro-GVD today. - Pain control: increase home morphine ER to 45 mg BID with oxy 15 mg q4h PRN for breakthrough, increase gabapentin to 600 mg TID, continue duloxetine 60 mg daily, add lidocaine patch Pt discussed in DCAM w/ the onc consult team, the pharmacist, the charge nurse, the mobile plant operators, the charge nurse, the SW/CM/nurse coordinator. Diet: Adult Diet Regular Fluids: Per chemo protocol LDA: Port DVT ppx: Lovenox Code status: Full Code PT/OT Dispo Rec: / Disposition: keep inpatient, discharge home when chemotherapy is completed and after pain is controlled. Supplementary Attestation The total encounter time on this service date was 50 minutes which was spent performing a [id number] encounter and personally completing the provider-level activities documented in the note. This includes time spent prior to the visit and after the visit in direct care of the patient. This time does not include time spent in any separately reportable services. Tabitha David MD Hospitalist [phone] * Annette Acosta, PRODUCTION LINE TECHNICIAN - 05/04/2023 5:00 PM CDT Medical Oncology Daily Progress Subjective Crystal Capone is a 33yom w/ history of refractory HL, most recently treated in November with BEACOPP, presents with c/f relapsed disease. Interval History: Patient was awake this morning in visible distress with report of worsening hip pain overnight. States that he feels like a sciatica soreness surrounding his hip and back, with intermittent radiation to his legs. He reports that PO pain medications have not been helpful in this kind of management. Discussed plan to increase gabapentin to 600mg TID and added on lidocaine patches, in addition to initiation of chemotherapy today. Upon reassessment at 1330: Patient's pain level dramatically improved in response to increase in MSER, gabapentin and application of lidocaine patch. He reports that he feels much better and is eagerto start treatment. Discussed chemotherapy education with patient regarding treatment plan (every 3weeks), infection prevention precautions, management of possible side effects (nausea/vomiting, myelosuppression, rash, facial flushing, fevers, diarrhea, oral mucositis, swelling), possible adverse reactions, and tips for managing symptoms. Chemotherapy consent signed by patient at bedside and discussed with his mother Blanche over the phone regarding chemo education and plan to initiate today. No additional questions or concerns at this time. Will proceed with treatment this afternoon. Objective Scheduled Medications: acyclovir, 400 mg, oral, BID DOXOrubicin liposomal, 15 mg/m2 (Order-Specific), intravenous, Once DULoxetine DR, 60 mg, oral, Daily enoxaparin, 40 mg, subcutaneous, Daily-2100 gabapentin, 600 mg, oral, TID heparin flush (porcine), 5 mL, intra-catheter, BID lidocaine, 1 patch, transdermal, Q24H morphine ER, 45 mg, oral, BID nicotine, 1 patch, transdermal, Daily pantoprazole DR, 40 mg, oral, BID polyethylene glycol, 17 g, oral, Daily senna-docusate, 1 tablet, oral, BID sodium chloride 0.9%, 10 mL, intra-catheter, Q12H CADY Continuous Medications: dextrose 5%, 30 mL/hr, Last Rate: 30 mL/hr (05/04/23 1334) sodium chloride 0.9%, 30 mL/hr sodium chloride 0.9%, 30 mL/hr PRN Medications: acetaminophen albuterol albuterol HFA sodium chloride 0.9% diphenhydrAMINE diphenhydrAMINE EPINEPHrine famotidine heparin flush (porcine) hydrocortisone HYDROmorphone magnesium oxide magnesium sulfate magnesium sulfate magnesium sulfate meperidine ondansetron OR ondansetron oxyCODONE perflutren protein-a (OPTISON) 3 mL in sodium chloride 0.9% 8 mL syringe potassium chloride ER sodium chloride 0.9% sodium chloride 0.9% sodium chloride 0.9% sodium chloride 0.9% sodium phosphate - potassium phosphate Vitals: Most Recent : Vitals: 05/04/23 1543 BP: 118/60 Pulse: 85 Resp: 18 Temp: 36.4 ??C (97.5 ??F) SpO2: 98% 24hr Min/Max: Temp Min: 36.4 ??C (97.5 ??F) Max: 36.6 ??C (97.8 ??F) Pulse Min: 73 Max: 98 BP Min: 118/60 Max: 128/63 Resp Min: 18 Max: 18 SpO2 Min: 98 % Max: 100 % I/O: I/O last 2 completed shifts: In: 500 [IV Piggyback:500] Out: 2500 [Urine:2500] I/O this shift: In: 505 [IV Piggyback:505] Out: 650 [Urine:650] Physical Exam: General Appearance: Alert, cooperative, no distress HEENT: NC/AT, neck is tender to hyperflexion, EOMI intact, blurry vision in R. Eye, trachea midline Lymph Nodes: No palpable lymph nodes subclavian, subdural, cervical. Lungs: respirations unlabored, chest expansion symmetrical Abdomen: Soft, non-tender, non-distended, +hepatosplenomegaly to palpation. Nontender to light palpation, mild tenderness to deep palpation. Extremities: PAINTING well, atraumatic, +1 ble edema Skin: Skin color, texture, turgor normal, no rashes or lesions Neurologic: A&Ox4. Gait not observed Psych: mood is euthymic and conversation is appropriate Lab/Radiology/Diagnostic Review: Recent Results (from the past 24 hour(s)) CBC with auto differential Collection Time: 05/04/23 3:19 AM Result Value Ref Range WBC 14.5 (H) 3.8 - 9.9 K/cumm Hgb 7.7 (L) 13.0 - 17.5 g/dL Hct 25.8 (L) 38.9 - 50.3 % Plt 374 150 - 400 K/cumm MPV 9.0 (L) 9.1 - 12.3 fL RBC 3.33 (L) 4.30 - 5.80 M/cumm MCV 77.5 (L) 81.3 - 96.4 fL MCH 23.1 (L) 27.1 - 33.3 pg MCHC 29.8 (L) 32.3 - 35.7 g/dL RDW CV 19.7 (H) 11.1 - 14.9 % RDW SD 47.2 35.7 - 48.1 fL NRBC abs 0.02 (H) 0.00 - 0.01 K/cumm Magnesium Collection Time: 05/04/23 3:19 AM Result Value Ref Range Magnesium 1.6 1.4 - 2.5 mg/dL Comprehensive metabolic panel Collection Time: 05/04/23 3:19 AM Result Value Ref Range Sodium 139 135 - 145 mmol/L Potassium, pl 3.9 3.3 - 4.9 mmol/L Chloride 102 97 - 110 mmol/L CO2 35 (H) 22 - 32 mmol/L Anion gap 2 2 - 15 mmol/L BUN 13 6 - 25 mg/dL Creatinine 0.71 (L) 0.80 - 1.30 mg/dL Glucose 108 70 - 199 mg/dL Calcium 7.7 (L) 8.5 - 10.3 mg/dL Bilirubin, total 0.2 0.1 - 1.2 mg/dL Protein, pl 5.0 (L) 6.5 - 8.5 g/dL Albumin 2.4 (L) 3.5 - 5.0 g/dL Alk phos 122 40 - 130 Units/L ALT 12 7 - 55 Units/L AST 11 10 - 50 Units/L Phosphorus Collection Time: 05/04/23 3:19 AM Result Value Ref Range Phosphorus, pl 1.5 (L) 2.3 - 4.5 mg/dL Differential, auto Collection Time: 05/04/23 3:19 AM Result Value Ref Range Neutrophil abs 12.8 (H) 1.7 - 6.5 K/cumm Imm gran abs 0.3 (H) 0.0 - 0.1 K/cumm Lymphocyte abs 0.3 (L) 0.8 - 3.3 K/cumm Monocyte abs 1.0 (H) 0.2 - 0.8 K/cumm Eosinophil abs 0.1 0.0 - 0.5 K/cumm Basophil abs 0.0 0.0 - 0.1 K/cumm Neutrophil pct 88.4 % Imm gran pct 2.3 % Lymphocyte pct 1.9 % Monocyte pct 7.0 % Eosinophil pct 0.3 % Basophil pct 0.1 % eGFR Collection Time: 05/04/23 3:19 AM Result Value Ref Range eGFR >90 90 - 130 mL/min/1.73 m2 Vancomycin level trough Draw 30 minutes prior to AM dose Collection Time: 05/04/23 6:40 AM Result Value Ref Range Vancomycin trough 14.0 10.0 - 20.0 mcg/mL I have reviewed the above laboratory results. Imaging Results: MRI Brain WO Contrast Result Date: 04/29/2023 Limited MRI without acute abnormality. Recommend repeat exam Dictated by: Paul Sanders MD The radiology attending physician has personally reviewed this study, and had reviewed and/or edited this written report and agrees with it. Electronically signed by: Leslie House M.D. XR Abdomen Ap 1 Vw Result Date: 04/28/2023 A single view of the abdomen is submitted for evaluation. Moderate stool burden is seen in the right hemicolon, with only mild stool burden in the left hemicolon. Electronically signed by: Elodia Harvey M.D. XR Chest 1 View Result Date: 04/28/2023 No priors available for comparison. Right internal jugular port overlies the right cavoatrial junction. Cardiomediastinal silhouette is normal. No pleural effusion or pneumothorax. Right upper lobe airspace opacity which is likely an infectious pneumonia, recommend follow-up in 2-4 weeks to evaluate for resolution. Dictated by: Mert Martinez MD The radiology attending physician has personally reviewed this study, and had reviewed and/or edited this written report and agrees with it. Electronically signed by: Danyel Lombardi M.D. Assessment/Plan #Refractory Hodgkin's lymphoma Dx in 11/2021, originally treated with ABVD followed by BEACOPP; only received up to C3D8 in 11/2022 - Had 12/2022 admission for pna/sepsis/neutropenia. Required pressors and intubation, no further treatment after hospitalization - Now presents from OSH with recurrent/worsening disease - CT w/ progression of lymphomatous diseased evidenced by increased multifocal adenopathy above andbelow the diaphragm with predominant involvement in the retroperitoneum and bilateral inguinal regions, increased size of multifocal lytic lesions in the axial and appendicular skeleton notably involving the femoral necks which puts the patient at risk for pathologic fracture. Unchanged pathologic compression fractures of T7 and L4. - MRI brain/thoracic/lumbar: diffuse dural enhancement, diffuse osseous metastatic disease in the thoracic and lumbar spine as detailed above, with unchanged pathologic fractures of T7 and L4 with new pathologic fracture of T11. Epidural extension of tumor at L4 results in severe canal stenosis. - Inguinal LN biopsy 04/27 at OSH; Pathology Resulted in Care Everywhere 05/01: Final Dx: Classic Hodgkin Lymphoma - Outpatient team will obtain path from original biopsy - PET 04/29: Extensive lymphomatous disease above and below the diaphragm including lymphadenopathy, osseous lesions, splenic involvement, and right gluteal intramuscular deposits. Large area of hypermetabolic consolidation in the right upper lobe with adjacent nodularity. - Discuss if plan for inpt chemo once further work up has been completed - Continue dex 10mg f/b 4q6hr (04/29- ) - Staffed with Dr. Sena 04/28; previously followed at OSH with Dr. Ashford; Will initiate C1D1 Pembro + GVD 05/04. #Encounter for Chemotherapy 05/04 Initiation C1D1 Pembro + GVD (21 day regime)(Chemo consent signed by patient at bedside: Chemo education provided by PRODUCTION LINE TECHNICIAN to both patient and his mother (Blanche- per phone)). -D1: Pre-medications: Zofran 16mg PO and Dexamethasone 10mg IV will be administered 30 minutes before initiation of therapy. -D1: Will receive IV pembrolizumab 200mg IV, f/b Vinorelbine 40mg IV, f/b Gemcitabine 2000mg IV, f/b Doxorubicin IV. -OI PPX: Acyclovir 400mg BID -Will monitor for hypersensitivity reactions during administration -Supportive care: PRN Ondansetron q8 hours for n/v -Will monitor daily CBCs, CMPs during administration -Daily weights #Blurred vision Reports blurred vision x 1 week. Covering eye on exam, made worse when looking forward - 04/29-Orbital MRI-Evaluation of the orbits limited by motion artifacts. Within this limitation, no apparent lesion to explain patient's symptoms. - Optho consult; agree with MRI- will obtain LP only if Optho c/f for leptomeningeal disease; will follow-up with recs #Ataxia Ongoing weakness with multiple falls over the last few weeks, likely related to spinal cord involvement. No other emergeny signs of cord compression - Recommend Neurology consult: recommend workup for meningeal enhancement (RAYA, JAVIER, ANCA, ESR, CRP, RF/CCP, RPR , HIV, cryptococcal antigen. Can consider T- spot given lung nodules), consider LP if c/f leptomeningeal disease - PT/OT #Fever Febrile at OSH, though no reports of blood cultures obtained. Was started on abx prior to transfer.No clear focal symptoms at this time - Worsening tree in bud opacities in the left upper and lower lobe suspicious for fungal or other atypical infection. - Repeat peripheral and blood cultures, UA, CXR - ID has been consulted: recommend fungal cultures, though asymptomatic so less suspicion true infection - Obtain sputum culture, serum Cocci Ab, Blasto Ab, Histo Ur Ag - Abx per primary: Azithromycin/Cefe (04/28-05/04 ) - IP consulted : s/p Bronchoscpy 04/30 : Path negative for malignancy #Anasarca #BLE Worsening abd distention as well as BLE swelling over the last week, risen to scrotal on admission - Most recent echo w/ EF to be 45 to 50% on echocardiogram 12/16/2022 - Consider repeat TTE; LVEF 62% - Recommend BLE dopplers: no evidence of acute deep vein thrombosis in the lower extremities This patient was staffed with Dr. Kurtz -Medical Oncologist Annette Acosta, [id number] Inpatient Nurse Practitioner for the Division of Medical Oncology Work cell: [phone] Cosigned by Jeremiah Kurtz MD PhD at 05/05/2023 10:56 AM CDT Associated attestation - Jeremiah Kurtz MD PhD - 05/05/2023 10:56 AM CDT I have seen and examined the patient on 05/04/2023 in conjunction with the non- physician provider. History: Crystal Capone is a 33yom w/ history of refractory HL, most recently treated in November with BEACOPP, presents with c/f relapsed disease. Physical Exam: Vitals reviewed. General Appearance: Alert, cooperative, no distress HEENT: NC/AT, neck is tender to hyperflexion, EOMI intact, blurry vision in R. Eye, trachea midline Lymph Nodes: No palpable lymph nodes subclavian, subdural, cervical. Lungs: respirations unlabored, chest expansion symmetrical Abdomen: Soft, non-tender, non-distended, +hepatosplenomegaly to palpation. Nontender to light palpation, mild tenderness to deep palpation. Extremities: PAINTING well, atraumatic, +1 ble edema Skin: Skin color, texture, turgor normal, no rashes or lesions Neurologic: A&Ox4. Gait not observed Psych: mood is euthymic and conversation is appropriate Lab/Radiology/Diagnostics Review: Reviewed all labs and imaging. Assessment/Plan Ok to proceed with chemotherapy. Dr. Sena to sign treatment plan. Chemo teaching will be provided. Jeremiah Kurtz MD PhD * Annette Hughes [facility] - 05/04/2023 1:15 PM CDT [facility] P&T has approved a ?? 5% dose rounding policy for chemotherapy agents to the nearest vial size. Gemcitabine has been rounded by a MTS protocol from 1990 mg (1000 mg/m2 based on ABW) to 2000 mg. Rounded dose is based off of the original dose. * Annette Acosta NP - 05/03/2023 4:11 PM CDT Medical Oncology Daily Progress Subjective Crystal Capone is a 33yom w/ history of refractory HL, most recently treated in November with BEACOPP, presents with c/f relapsed disease. Interval History: NAEO, VSS. Patient is resting in bed with his mother at bedside today upon assessment. Discussed he had success with having bowel movement yesterday evening and feels like swelling has improved in legs and abdomen. He reports feeling less bloat today and is eager to know plan for t reatment and results of bronchoscopy. Reports pain control is manageable and having no difficulty ambulating in room with no dizziness/weakness. Encouraged patient to continue scheduled bowel regime while taking PO narcotic medications, to avoid additional constipation. Objective Scheduled Medications: cefepime, 2,000 mg, intravenous, Q8H CADY dexAMETHasone, 4 mg, intravenous, Q6H CADY DULoxetine DR, 60 mg, oral, Daily enoxaparin, 40 mg, subcutaneous, Daily-2100 gabapentin, 300 mg, oral, TID heparin flush (porcine), 5 mL, intra-catheter, BID metroNIDAZOLE, 500 mg, oral, TID morphine ER, 30 mg, oral, BID nicotine, 1 patch, transdermal, Daily pantoprazole DR, 40 mg, oral, BID polyethylene glycol, 17 g, oral, Daily potassium, sodium phosphates, 2 packet, oral, TID AC senna-docusate, 1 tablet, oral, BID sodium chloride 0.9%, 10 mL, intra-catheter, Q12H CADY vancomycin, 1,500 mg, intravenous, Q12H Continuous Medications: sodium chloride 0.9%, 30 mL/hr PRN Medications: acetaminophen sodium chloride 0.9% heparin flush (porcine) HYDROmorphone magnesium oxide magnesium sulfate magnesium sulfate magnesium sulfate ondansetron OR ondansetron oxyCODONE perflutren protein-a (OPTISON) 3 mL in sodium chloride 0.9% 8 mL syringe potassium chloride ER sodium chloride 0.9% sodium chloride 0.9% sodium phosphate - potassium phosphate Vitals: Most Recent : Vitals: 05/03/23 1533 BP: 126/64 Pulse: 73 Resp: 18 Temp: 36.1 ??C (97 ??F) SpO2: 100% 24hr Min/Max: Temp Min: 36.1 ??C (97 ??F) Max: 36.7 ??C (98 ??F) Pulse Min: 60 Max: 73 BP Min: 123/70 Max: 132/66 Resp Min: 16 Max: 18 SpO2 Min: 96 % Max: 100 % I/O: I/O last 2 completed shifts: In: - Out: 1750 [Urine:1750] I/O this shift: In: 500 [IV Piggyback:500] Out: 800 [Urine:800] Physical Exam: General Appearance: Alert, cooperative, no distress HEENT: NC/AT, neck is tender to hyperflexion, EOMI intact, blurry vision in R. Eye, trachea midline Lungs: respirations unlabored, chest expansion symmetrical Abdomen: Soft, non-tender, non-distended, +hepatosplenomegaly to palpation. Nontender to light palpation, mild tenderness to deep palpation. Extremities: PAINTING well, atraumatic, +1 ble edema Skin: Skin color, texture, turgor normal, no rashes or lesions Neurologic: A&Ox4. Gait not observed Psych: mood is euthymic and conversation is appropriate Lab/Radiology/Diagnostic Review: Recent Results (from the past 24 hour(s)) Type and screen Collection Time: 05/03/23 12:34 AM Result Value Ref Range ABO Rh O Positive Long, indirect Negative aPTT Collection Time: 05/03/23 12:34 AM Result Value Ref Range aPTT 35 28 - 38 sec Protime-INR Collection Time: 05/03/23 12:34 AM Result Value Ref Range PT 15.9 (H) 10.3 - 13.7 sec INR 1.39 (H) 0.90 - 1.20 Uric acid Collection Time: 05/03/23 12:34 AM Result Value Ref Range Uric acid 2.1 (L) 3.0 - 8.0 mg/dL CBC with auto differential Collection Time: 05/03/23 12:34 AM Result Value Ref Range WBC 17.9 (H) 3.8 - 9.9 K/cumm Hgb 8.0 (L) 13.0 - 17.5 g/dL Hct 26.3 (L) 38.9 - 50.3 % Plt 412 (H) 150 - 400 K/cumm MPV 8.6 (L) 9.1 - 12.3 fL RBC 3.45 (L) 4.30 - 5.80 M/cumm MCV 76.2 (L) 81.3 - 96.4 fL MCH 23.2 (L) 27.1 - 33.3 pg MCHC 30.4 (L) 32.3 - 35.7 g/dL RDW CV 18.6 (H) 11.1 - 14.9 % RDW SD 46.3 35.7 - 48.1 fL NRBC abs 0.00 0.00 - 0.01 K/cumm Magnesium Collection Time: 05/03/23 12:34 AM Result Value Ref Range Magnesium 1.8 1.4 - 2.5 mg/dL Comprehensive metabolic panel Collection Time: 05/03/23 12:34 AM Result Value Ref Range Sodium 137 135 - 145 mmol/L Potassium, pl 4.1 3.3 - 4.9 mmol/L Chloride 102 97 - 110 mmol/L CO2 29 22 - 32 mmol/L Anion gap 6 2 - 15 mmol/L BUN 11 6 - 25 mg/dL Creatinine 0.62 (L) 0.80 - 1.30 mg/dL Glucose 174 70 - 199 mg/dL Calcium 7.9 (L) 8.5 - 10.3 mg/dL Bilirubin, total 0.2 0.1 - 1.2 mg/dL Protein, pl 5.6 (L) 6.5 - 8.5 g/dL Albumin 2.6 (L) 3.5 - 5.0 g/dL Alk phos 137 (H) 40 - 130 Units/L ALT 11 7 - 55 Units/L AST 15 10 - 50 Units/L Phosphorus Collection Time: 05/03/23 12:34 AM Result Value Ref Range Phosphorus, pl 1.4 (L) 2.3 - 4.5 mg/dL Differential, auto Collection Time: 05/03/23 12:34 AM Result Value Ref Range Neutrophil abs 16.5 (H) 1.7 - 6.5 K/cumm Imm gran abs 0.2 (H) 0.0 - 0.1 K/cumm Lymphocyte abs 0.1 (L) 0.8 - 3.3 K/cumm Monocyte abs 1.0 (H) 0.2 - 0.8 K/cumm Eosinophil abs 0.0 0.0 - 0.5 K/cumm Basophil abs 0.0 0.0 - 0.1 K/cumm Neutrophil pct 92.1 % Imm gran pct 1.3 % Lymphocyte pct 0.7 % Monocyte pct 5.8 % Eosinophil pct 0.0 % Basophil pct 0.1 % eGFR Collection Time: 05/03/23 12:34 AM Result Value Ref Range eGFR >90 90 - 130 mL/min/1.73 m2 I have reviewed the above laboratory results. Imaging Results: MRI Brain WO Contrast Result Date: 04/29/2023 Limited MRI without acute abnormality. Recommend repeat exam Dictated by: Paul Sanders MD The radiology attending physician has personally reviewed this study, and had reviewed and/or edited this written report and agrees with it. Electronically signed by: Leslie House M.D. XR Abdomen Ap 1 Vw Result Date: 04/28/2023 A single view of the abdomen is submitted for evaluation. Moderate stool burden is seen in the right hemicolon, with only mild stool burden in the left hemicolon. Electronically signed by: Elodia Harvey M.D. XR Chest 1 View Result Date: 04/28/2023 No priors available for comparison. Right internal jugular port overlies the right cavoatrial junction. Cardiomediastinal silhouette is normal. No pleural effusion or pneumothorax. Right upper lobe airspace opacity which is likely an infectious pneumonia, recommend follow-up in 2-4 weeks to evaluate for resolution. Dictated by: Mert Martinez MD The radiology attending physician has personally reviewed this study, and had reviewed and/or edited this written report and agrees with it. Electronically signed by: Danyel Lombardi M.D. Assessment/Plan #Refractory Hodgkin's lymphoma Dx in 11/2021, originally treated with ABVD followed by BEACOPP; only received up to C3D8 in 11/2022 - Had 12/2022 admission for pna/sepsis/neutropenia. Required pressors and intubation, no further treatment after hospitalization - Now presents from OSH with recurrent/worsening disease - CT w/ progression of lymphomatous diseased evidenced by increased multifocal adenopathy above andbelow the diaphragm with predominant involvement in the retroperitoneum and bilateral inguinal regions, increased size of multifocal lytic lesions in the axial and appendicular skeleton notably involving the femoral necks which puts the patient at risk for pathologic fracture. Unchanged pathologic compression fractures of T7 and L4. - MRI brain/thoracic/lumbar: diffuse dural enhancement, diffuse osseous metastatic disease in the thoracic and lumbar spine as detailed above, with unchanged pathologic fractures of T7 and L4 with new pathologic fracture of T11. Epidural extension of tumor at L4 results in severe canal stenosis. - Inguinal LN biopsy 04/27 at OSH; Pathology Resulted in Care Everywhere 05/01: Final Dx: Classic Hodgkin Lymphoma - Outpatient team will obtain path from original biopsy - PET 04/29: Extensive lymphomatous disease above and below the diaphragm including lymphadenopathy, osseous lesions, splenic involvement, and right gluteal intramuscular deposits. Large area of hypermetabolic consolidation in the right upper lobe with adjacent nodularity. - Discuss if plan for inpt chemo once further work up has been completed - Continue dex 10mg f/b 4q6hr (04/29- ) - Staffed with Dr. Sena 04/28; previously followed at OSH with Dr. Ashford; Pending potential inpatient chemotherapy plan; updated 05/03 (awaiting plan). #Blurred vision Reports blurred vision x 1 week. Covering eye on exam, made worse when looking forward - 04/29-Orbital MRI-Evaluation of the orbits limited by motion artifacts. Within this limitation, no apparent lesion to explain patient's symptoms. - Optho consult; agree with MRI- will obtain LP only if Optho c/f for leptomeningeal disease; will follow-up with recs #Ataxia Ongoing weakness with multiple falls over the last few weeks, likely related to spinal cord involvement. No other emergeny signs of cord compression - Recommend Neurology consult: recommend workup for meningeal enhancement (RAYA, JAVIER, ANCA, ESR, CRP, RF/CCP, RPR , HIV, cryptococcal antigen. Can consider T- spot given lung nodules), consider LP if c/f leptomeningeal disease - PT/OT #Fever Febrile at OSH, though no reports of blood cultures obtained. Was started on abx prior to transfer.No clear focal symptoms at this time - Worsening tree in bud opacities in the left upper and lower lobe suspicious for fungal or other atypical infection. - Repeat peripheral and blood cultures, UA, CXR - ID has been consulted: recommend fungal cultures, though asymptomatic so less suspicion true infection - Obtain sputum culture, serum Cocci Ab, Blasto Ab, Histo Ur Ag - Abx per primary: Azithromycin/Cefe (04/28- ) - IP consulted : s/p Bronchoscpy 04/30 : Path negative for malignancy #Anasarca #BLE Worsening abd distention as well as BLE swelling over the last week, risen to scrotal on admission - Most recent echo w/ EF to be 45 to 50% on echocardiogram 12/16/2022 - Consider repeat TTE; ordered - Recommend BLE dopplers: no evidence of acute deep vein thrombosis in the lower extremities #Hypercalcemia (resolved) -Calcium at outside facility elevated at 11.7, with albumin 1.8, CTM -05/01- Calcium 7.7, Albumin 2.6 This patient was reviewed with Dr. Kurtz -Medical Oncologist Annette Acosta, [id number] Inpatient Nurse Practitioner for the Division of Medical Oncology Work cell: [phone] Cosigned by Jeremiah Kurtz MD PhD at 05/05/2023 10:32 AM CDT Associated attestation - Jeremiah Kurtz MD PhD - 05/05/2023 10:32 AM CDT I have seen and examined the patient on 05/03/2023 in conjunction with the non- physician provider. History: Crystal Capone is a 33yom w/ history of refractory HL, most recently treated in November with BEACOPP, presents with c/f relapsed disease. Physical Exam: Vitals reviewed. General Appearance: Alert, cooperative, no distress HEENT: NC/AT, neck is tender to hyperflexion, EOMI intact, blurry vision in R. Eye, trachea midline Lungs: respirations unlabored, chest expansion symmetrical Abdomen: Soft, non-tender, non-distended, +hepatosplenomegaly to palpation. Nontender to light palpation, mild tenderness to deep palpation. Extremities: PAINTING well, atraumatic, +1 ble edema Skin: Skin color, texture, turgor normal, no rashes or lesions Neurologic: A&Ox4. Gait not observed Psych: mood is euthymic and conversation is appropriate Lab/Radiology/Diagnostics Review: All labs and imaging reviewed. Assessment/Plan OSH biopsy confirmed disease recurrence. IP biopsy negative for malignancy and fungal infection. Remains on high dose dex - back and knee pain controlled. BLE swelling and abdominal distention improved but persistent. Jeremiah Kurtz MD PhD * Anna, Armando Hagen MD - 05/03/2023 12:58 PM CDT Oncology Daily Progress Note Division of Hospital Medicine Name: Crystal Capone : 1990 Today's Date: May 03, 2023 Age: 33 y.o. male Admission: 04/28/2023 Bed: [id number] LOS: 5 days Subjective Chief complaint: Transfer for Hodgkin's Lymphoma Interval History - No acute events overnight - VS wnl - No acute complaints Relevant Results: - CMP/Mg stable, Phos 1.9->1.4, repleting - CBC stable - Lung Biopsy pathology w/ acute and chronic inflammation, no e/o malignancy Brief Plan: - ID Consult - Continue broad spectrum antibiotics - Ongoing discussions w/ MedOnc RE steroid taper and chemotherapy start Objective Scheduled Meds PRN Meds Infusions cefepime, 2,000 mg, intravenous, Q8H CADY dexAMETHasone, 4 mg, intravenous, Q6H CADY DULoxetine DR, 60 mg, oral, Daily enoxaparin, 40 mg, subcutaneous, Daily-2100 gabapentin, 300 mg, oral, TID heparin flush (porcine), 5 mL, intra-catheter, BID metroNIDAZOLE, 500 mg, oral, TID morphine ER, 30 mg, oral, BID nicotine, 1 patch, transdermal, Daily pantoprazole DR, 40 mg, oral, BID polyethylene glycol, 17 g, oral, Daily potassium, sodium phosphates, 2 packet, oral, TID AC senna-docusate, 1 tablet, oral, BID sodium chloride 0.9%, 10 mL, intra-catheter, Q12H CADY vancomycin, 1,500 mg, intravenous, Q12H acetaminophen, 500 mg, oral, Q6H PRN sodium chloride 0.9%, 30 mL, intravenous, PRN heparin flush (porcine), 2-5 mL, intra-catheter, PRN HYDROmorphone, 0.2 mg, intravenous, Q4H PRN magnesium oxide, 400 mg, oral, Q4H PRN magnesium sulfate, 2 g, intravenous, Q4H PRN magnesium sulfate, 4 g, intravenous, Q4H PRN magnesium sulfate, 6 g, intravenous, Q4H PRN ondansetron, 8 mg, oral, Q8H PRN OR ondansetron, 8 mg, intravenous, Q8H PRN oxyCODONE, 10 mg, oral, Q4H PRN perflutren protein-a (OPTISON) 3 mL in sodium chloride 0.9% 8 mL syringe, 1-8 mL, intravenous, Oncein imaging potassium chloride ER, 40 mEq, oral, Q2H PRN sodium chloride 0.9%, 10-20 mL, intra-catheter, PRN sodium chloride 0.9%, 30 mL/hr, intravenous, Continuous PRN sodium phosphate - potassium phosphate, 500 mg, oral, Daily PRN sodium chloride 0.9%, 30 mL/hr Vitals Most Recent Vitals: T 36.6 ??C (97.9 ??F), HR 65, BP 128/57, RR 16, SpO2 96 %. 24hr Min/Max: Temp Min: 36.4 ??C (97.6 ??F) Max: 36.7 ??C (98 ??F) Pulse Min: 60 Max: 72 BP Min: 123/70 Max: 132/66 Resp Min: 16 Max: 18 SpO2 Min: 96 % Max: 100 % Intake/Output Summary (Last 24 hours) at 05/03/2023 1304 Last data filed at 05/03/2023 0935 Gross per 24 hour Intake 500 ml Output 1750 ml Net -1250 ml Physical Exam Constitutional: NAD, well developed, poor dentition, chronically-ill appearing, uses cane Eyes: PERRL, EOMI, anicteric ENT: NCAT, oropharynx normal, moist mucus membranes Lungs: Clear to auscultation in all lung alcaraz, unlabored Cardiovascular: RRR, normal S1 and S2, no murmurs, no JVD GI: Soft, non-tender, non-distended, bowel sounds +, no organomegaly Skin: No new rashes, lesions or bruises on visible skin Extremities: 1+ pitting edema BLEs Neurologic: AOx4, 5/5 strength all extremities, no sensory deficits, no midline ttp of spine, all visual alcaraz intact bilaterally, mild dysmetria which pt attributes to diplopia, normal heel-paz bilaterally, no dysdiadochokinesia Psychiatric: Normal affect and mood I have reviewed the patient's vital signs. Lines, Drains, Airways Single Lumen Implantable Port 07/05/21 Power Chest Right (Active) Labs/Diagnostic Review CBC: Recent Labs Lab Units 05/03/23 0034 WBC K/cumm 17.9* HEMOGLOBIN g/dL 8.0* HEMATOCRIT % 26.3* MCV fL 76.2* MCH pg 23.2* MCHC g/dL 30.4* RDW CV % 18.6* RDWSD fL 46.3 MPV fL 8.6* NEUTROS ABS K/cumm 16.5* LYMPHS PCT % 0.7 CMP: Recent Labs Lab Units 05/03/23 0034 SODIUM mmol/L 137 POTASSIUM PLASMA mmol/L 4.1 CO2 mmol/L 29 BUN SERUM mg/dL 11 GLUCOSE mg/dL 174 CREATININE mg/dL 0.62* CALCIUM mg/dL 7.9* CHLORIDE mmol/L 102 ALBUMIN g/dL 2.6* AST Units/L 15 ALT Units/L 11 ALK PHOS Units/L 137* BILIRUBIN TOTAL mg/dL 0.2 TOTAL PROTEIN g/dL 5.6* ANIONGAP mmol/L 6 LDH: Recent Labs Lab Units 04/29/23 0241 LACTATE DEHYDROGENASE (LDH) Units/L 176 INR 1.39 Uric Acid:2.1 (Labs above are the most recent result obtained in the last 24 hours unless otherwise specified. For additional labs/trends, see Epic.) I have reviewed the laboratory results. Imaging Review No results found. I have independently reviewed and interpreted the PET imaging showing diffuse lymphomatous disease and hypermetabolic lung consolidation. Assessment/Plan * Hodgkin lymphoma (HCC) Assessment & Plan Diagnosed with 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 Ashford, [place], [place]. S/p ABVD (2 cycles) with progression [...] with Dr. Sena and Medical Oncology - Inpatient chemotherapy - No need for TLS - Started Dex 10 mg x1 followed by 4 mg [id number] - Pain control: Home morphine ER 30 mg BID with oxy 5 mg q4h PRN for breakthrough, continue home adjunctive gabapentin 300 mg TID and duloxetine 60 mg daily Lesion of right lung Assessment & Plan Patient's PET scan notable for hypermetabolic consolidation of the left lung concerning for metastatic disease versus infection. - Interventional Pulm consulted for biopsy, f/u path/cultures - Pathology w/ acute and chronic inflammation, no e/o malignancy Double vision Assessment & Plan With bMRI showing indeterminant mild diffuse dural enhancement. Assessment: - Visual alcaraz intact, EOMI - MRI brain with orbits W con w/o explanatory lesion, although motion artifact limited Plan: - Discussed with Oncology who will further discuss utility/safety of LP (pt also has lumbar epidural collections that may make LP unsafe) - Per ID, no need for empiric meningitic coverage - Ophthalmology consulted Pneumonia Assessment & Plan Reported fever to 102 at OSH 04/27 with chest imaging c/f RUL PNA, possibly fungal. Started on IV vanc+pip-tazo+azithro at OSH (04/27-04/28), per OSH lab cultures were not drawn. On room air, no dyspnea. Will treat as hospital- acquired PNA with a possible post-obstructive component requiring anaerobic coverage. Possibly fungal infection given CT C/A/P 04/26 with nodularities in left lung and spleen as well possibly c/f fungal infection. - Empiric vanc (04/28- ), cefe (04/28- ), flagyl (04/28- ), azithro (04/28-04/30) - Sputum culture, UA pending - Blood cx x2 pending - CXR: Right upper lobe airspace opacity which is likely an infectious pneumonia - Histo, Blasto, Crypto, Coccidio, Aspergillus, mold culture pending - Called ID given question of need for empiric antifungal coverage: not needed at this time Lumbar spine tumor Assessment & Plan L-spine MRI W Con 04/26 with epidural [...] checks - Pharmacologic pain regimen described elsewhere Cervical spine disease Assessment & Plan OSH MRI C-spine WO Con with prominent anterior epidural soft tissue extending from C3 to C5 contributing to moderate spinal canal stenosis. CT C-spine with lytic lesions of C3-C5. Neuro exam with 5/5 strength BUEs, no sensory deficits. - MRI C-spine W Con - Routine neuro checks - Defer RadOnc pending discussions and evaluation for systemic treatment - Pharmacologic pain control described elsewhere Recurrent knee pain Assessment & Plan Patient w/ acute on chronic R knee pain, had sports injury many years ago, currently flaring. - X-ray R knee reassuring - Steroids being prescribed for HL Constipation Assessment & Plan Reports last BM at least 4 days ago. - KUB w/ moderate stool burden in R hemicolon, mild in L hemicolon - Daily Miralax, senna-doc Smoking Assessment & Plan - Continue home nicotine patch Bilateral leg edema Assessment & Plan BLE edema for past week likely 2/2 lymphadenopathy with venous compression. Also TTE during recent hospitalization with EF 45-50%. - TTE w/ normal LV+RV morphology/fx, small pericardial effusion - Duplex w/o e/o DVT Code status : Full Code Diet : Adult Diet Regular PT/OT Dispo Rec : / Supplementary Attestation Today, I am treating the patient for hodgkin's lymphoma which is in severe exacerbation, progression, or experiencing treatment side effects as evidenced by PET scan results, as described in the note. Discussed management of hypermetabolic lung consolidation with Interventional Pulm. Armando Castillo MD Internal Medicine Hospitalist Service 05/03/2023 1:04 PM * Jeremiah Kurtz MD PhD - 05/02/2023 3:44 PM CDT Medical Oncology Daily Progress Subjective Crystal Capone is a 33yom w/ history of refractory HL, most recently treated in November with BEACOPP, presents with c/f relapsed disease. Interval History: NAEO, VSS. Patient is resting in bed with his mother at bedside today upon assessment. Discussed he has not had a good bowel movement in 2 days and is feeling very gassy and bloaty. He reports that he still feels swelling but overall swelling has not progressively worsened whileon IV steroids. He is glad he is able to walk around without bed alarm per nursing discretion. He denies fevers/chills, nausea. We addressed concerns expressed regarding ECHO results from OSH vs. ECHO from this admission. No acute cardiac concerns were noted on ECHO during admission here. Discusseduse of coffee as potential bowel stimulant and continuation of stool softeners/laxatives and miralax to help stimulate bowel function. Objective Scheduled Medications: cefepime, 2,000 mg, intravenous, Q8H CADY dexAMETHasone, 4 mg, intravenous, Q6H CADY DULoxetine DR, 60 mg, oral, Daily enoxaparin, 40 mg, subcutaneous, Daily-2100 gabapentin, 300 mg, oral, TID heparin flush (porcine), 5 mL, intra-catheter, BID metroNIDAZOLE, 500 mg, oral, TID morphine ER, 30 mg, oral, BID nicotine, 1 patch, transdermal, Daily pantoprazole, 40 mg, intravenous, BID polyethylene glycol, 17 g, oral, Daily senna-docusate, 1 tablet, oral, BID sodium chloride 0.9%, 10 mL, intra-catheter, Q12H CADY vancomycin, 1,500 mg, intravenous, Q12H Continuous Medications: sodium chloride 0.9%, 30 mL/hr PRN Medications: acetaminophen sodium chloride 0.9% heparin flush (porcine) HYDROmorphone magnesium oxide magnesium sulfate magnesium sulfate magnesium sulfate ondansetron OR ondansetron oxyCODONE perflutren protein-a (OPTISON) 3 mL in sodium chloride 0.9% 8 mL syringe potassium chloride ER sodium chloride 0.9% sodium chloride 0.9% sodium phosphate - potassium phosphate Vitals: Most Recent : Vitals: 05/02/23 1507 BP: 126/69 Pulse: 65 Resp: 16 Temp: 36.4 ??C (97.6 ??F) SpO2: 100% 24hr Min/Max: Temp Min: 36.3 ??C (97.4 ??F) Max: 36.8 ??C (98.2 ??F) Pulse Min: 63 Max: 68 BP Min: 109/60 Max: 148/65 Resp Min: 16 Max: 18 SpO2 Min: 97 % Max: 100 % I/O: I/O last 2 completed shifts: In: - Out: 1949 [Urine:1950] No intake/output data recorded. Physical Exam: General Appearance: Alert, cooperative, no distress HEENT: NC/AT, neck is tender to hyperflexion, EOMI intact, blurry vision in R. Eye, trachea midline Lungs: respirations unlabored, chest expansion symmetrical Abdomen: Soft, non-tender, non-distended, +hepatosplenomegaly to palpation. Extremities: PAINTING well, atraumatic, +1 ble edema Skin: Skin color, texture, turgor normal, no rashes or lesions Neurologic: A&Ox4. Gait not observed Psych: mood is euthymic and conversation is appropriate Lab/Radiology/Diagnostic Review: Recent Results (from the past 24 hour(s)) Drugs of Abuse Screen, Urine with Reflex Confirmation Collection Time: 05/01/23 3:54 PM Result Value Ref Range Amphetamine, ur Screen Positive, presumptive (A) CutOff 500ng/mL Barbiturates, ur Not Detected CutOff 200ng/mL Benzodiazepines, ur Screen Positive, presumptive (A) CutOff 100ng/mL Cannabinoids, ur Screen Positive, presumptive (A) CutOff 50 ng/mL Cocaine, ur Not Detected CutOff 150ng/mL Fentanyl, Ur Screen Positive, presumptive (A) Cutoff 1 ng/mL Methadone, ur Not Detected CutOff 300ng/mL Opiates, ur Screen Positive, presumptive (A) CutOff 300ng/mL Oxycodone, ur Screen Positive, presumptive (A) CutOff 100ng/mL Phencyclidine, ur Not Detected CutOff 25 ng/mL Urine Creatinine 87 mg/dL Fentanyl Confirmation, Urine Collection Time: 05/01/23 3:54 PM Result Value Ref Range Fentanyl Conf, Ur Confirmed Positive Cutoff 0.3ng/mL Acetylfentanyl Conf, Ur Does Not Confirm Cutoff 1 ng/mL Acrylfentanyl Conf, Ur Does Not Confirm Cutoff 1 ng/mL Furanylfentanyl Conf, Ur Does Not Confirm Cutoff 1 ng/mL Fentanyl Metabolite (Norfentanyl) Conf, Ur Confirmed Positive CutOff 5 ng/mL Xylazine MS Does Not Confirm Cutoff 1 ng/mL CBC with auto differential Collection Time: 05/02/23 12:37 AM Result Value Ref Range WBC 18.8 (H) 3.8 - 9.9 K/cumm Hgb 7.6 (L) 13.0 - 17.5 g/dL Hct 25.0 (L) 38.9 - 50.3 % Plt 440 (H) 150 - 400 K/cumm MPV 8.8 (L) 9.1 - 12.3 fL RBC 3.34 (L) 4.30 - 5.80 M/cumm MCV 74.9 (L) 81.3 - 96.4 fL MCH 22.8 (L) 27.1 - 33.3 pg MCHC 30.4 (L) 32.3 - 35.7 g/dL RDW CV 18.3 (H) 11.1 - 14.9 % RDW SD 46.5 35.7 - 48.1 fL NRBC abs 0.00 0.00 - 0.01 K/cumm Magnesium Collection Time: 05/02/23 12:37 AM Result Value Ref Range Magnesium 1.8 1.4 - 2.5 mg/dL Comprehensive metabolic panel Collection Time: 05/02/23 12:37 AM Result Value Ref Range Sodium 141 135 - 145 mmol/L Potassium, pl 4.1 3.3 - 4.9 mmol/L Chloride 106 97 - 110 mmol/L CO2 30 22 - 32 mmol/L Anion gap 5 2 - 15 mmol/L BUN 13 6 - 25 mg/dL Creatinine 0.65 (L) 0.80 - 1.30 mg/dL Glucose 136 70 - 199 mg/dL Calcium 8.1 (L) 8.5 - 10.3 mg/dL Bilirubin, total 0.2 0.1 - 1.2 mg/dL Protein, pl 5.5 (L) 6.5 - 8.5 g/dL Albumin 2.5 (L) 3.5 - 5.0 g/dL Alk phos 147 (H) 40 - 130 Units/L ALT 9 7 - 55 Units/L AST 11 10 - 50 Units/L Phosphorus Collection Time: 05/02/23 12:37 AM Result Value Ref Range Phosphorus, pl 1.9 (L) 2.3 - 4.5 mg/dL Differential, auto Collection Time: 05/02/23 12:37 AM Result Value Ref Range Neutrophil abs 17.5 (H) 1.7 - 6.5 K/cumm Imm gran abs 0.3 (H) 0.0 - 0.1 K/cumm Lymphocyte abs 0.1 (L) 0.8 - 3.3 K/cumm Monocyte abs 0.8 0.2 - 0.8 K/cumm Eosinophil abs 0.0 0.0 - 0.5 K/cumm Basophil abs 0.0 0.0 - 0.1 K/cumm Neutrophil pct 93.3 % Imm gran pct 1.5 % Lymphocyte pct 0.7 % Monocyte pct 4.4 % Eosinophil pct 0.0 % Basophil pct 0.1 % eGFR Collection Time: 05/02/23 12:37 AM Result Value Ref Range eGFR >90 90 - 130 mL/min/1.73 m2 Vancomycin level trough Draw 30 minutes prior to AM dose Collection Time: 05/02/23 6:25 AM Result Value Ref Range Vancomycin trough 13.1 10.0 - 20.0 mcg/mL I have reviewed the above laboratory results. Imaging Results: MRI Brain WO Contrast Result Date: 04/29/2023 Limited MRI without acute abnormality. Recommend repeat exam Dictated by: Paul Sanders MD The radiology attending physician has personally reviewed this study, and had reviewed and/or edited this written report and agrees with it. Electronically signed by: Leslie House M.D. XR Abdomen Ap 1 Vw Result Date: 04/28/2023 A single view of the abdomen is submitted for evaluation. Moderate stool burden is seen in the right hemicolon, with only mild stool burden in the left hemicolon. Electronically signed by: Elodia Harvey M.D. XR Chest 1 View Result Date: 04/28/2023 No priors available for comparison. Right internal jugular port overlies the right cavoatrial junction. Cardiomediastinal silhouette is normal. No pleural effusion or pneumothorax. Right upper lobe airspace opacity which is likely an infectious pneumonia, recommend follow-up in 2-4 weeks to evaluate for resolution. Dictated by: Mert Martinez MD The radiology attending physician has personally reviewed this study, and had reviewed and/or edited this written report and agrees with it. Electronically signed by: Danyel Lombardi M.D. Assessment/Plan #Refractory Hodgkin's lymphoma Dx in 11/2021, originally treated with ABVD followed by BEACOPP; only received up to C3D8 in 11/2022 - Had 12/2022 admission for pna/sepsis/neutropenia. Required pressors and intubation, no further treatment after hospitalization - Now presents from OSH with recurrent/worsening disease - CT w/ progression of lymphomatous diseased evidenced by increased multifocal adenopathy above andbelow the diaphragm with predominant involvement in the retroperitoneum and bilateral inguinal regions, increased size of multifocal lytic lesions in the axial and appendicular skeleton notably involving the femoral necks which puts the patient at risk for pathologic fracture. Unchanged pathologic compression fractures of T7 and L4. - MRI brain/thoracic/lumbar: diffuse dural enhancement, diffuse osseous metastatic disease in the thoracic and lumbar spine as detailed above, with unchanged pathologic fractures of T7 and L4 with new pathologic fracture of T11. Epidural extension of tumor at L4 results in severe canal stenosis. - Inguinal LN biopsy 04/27 at OSH; Pathology Resulted in Care Everywhere 05/01: Final Dx: Classic Hodgkin Lymphoma - Outpatient team will obtain path from original biopsy - PET 04/29: Extensive lymphomatous disease above and below the diaphragm including lymphadenopathy, osseous lesions, splenic involvement, and right gluteal intramuscular deposits. Large area of hypermetabolic consolidation in the right upper lobe with adjacent nodularity. - Discuss if plan for inpt chemo once further work up has been completed - Continue dex 10mg f/b 4q6hr (04/29- ) - Staffed with Dr. Sena 04/28; previously followed at OSH with Dr. Ashford #Blurred vision Reports blurred vision x 1 week. Covering eye on exam, made worse when looking forward - 04/29-Orbital MRI-Evaluation of the orbits limited by motion artifacts. Within this limitation, no apparent lesion to explain patient's symptoms. - Optho consult; agree with MRI- will obtain LP only if Optho c/f for leptomeningeal disease; will follow-up with recs #Ataxia Ongoing weakness with multiple falls over the last few weeks, likely related to spinal cord involvement. No other emergeny signs of cord compression - Recommend Neurology consult: recommend workup for meningeal enhancement (RAYA, JAVIER, ANCA, ESR, CRP, RF/CCP, RPR , HIV, cryptococcal antigen. Can consider T- spot given lung nodules), consider LP if c/f leptomeningeal disease - PT/OT #Fever Febrile at OSH, though no reports of blood cultures obtained. Was started on abx prior to transfer.No clear focal symptoms at this time - Worsening tree in bud opacities in the left upper and lower lobe suspicious for fungal or other atypical infection. - Repeat peripheral and blood cultures, UA, CXR - ID has been consulted: recommend fungal cultures, though asymptomatic so less suspicion true infection - Obtain sputum culture, serum Cocci Ab, Blasto Ab, Histo Ur Ag - Abx per primary: Azithromycin/Cefe (04/28- ) - IP consulted : s/p Bronchoscpy 04/30 (pending pathology) #Anasarca #BLE Worsening abd distention as well as BLE swelling over the last week, risen to scrotal on admission - Most recent echo w/ EF to be 45 to 50% on echocardiogram 12/16/2022 - Consider repeat TTE; ordered - Recommend BLE dopplers: no evidence of acute deep vein thrombosis in the lower extremities #Hypercalcemia (resolved) -Calcium at outside facility elevated at 11.7, with albumin 1.8, CTM -05/01- Calcium 7.7, Albumin 2.6 This patient was reviewed with Dr. Kurtz -Medical Oncologist Annette Acosta, [id number] Inpatient Nurse Practitioner for the Division of Medical Oncology Work cell: [phone] * Armando Castillo MD - 05/02/2023 12:05 PM CDT Oncology Daily Progress Note Division of Hospital Medicine Name: Crystal Capone : 1990 Today's Date: May 02, 2023 Age: 33 y.o. male Admission: 04/28/2023 Bed: [id number] LOS: 4 days Subjective Chief complaint: Transfer for Hodgkin's Lymphoma Interval History - No acute events overnight - VS wnl - Knee pain significantly improved Relevant Results: - CMP/Mg/Phos stable - CBC stable - UDS w/ amphetamines - Vanc 13.1 - Knee radiographs w/ trace effusion but otherwise wnl Brief Plan: - ID Consult - Continue broad spectrum antibiotics - Adjusted vancomycin dosing to 1500 mg q12h - Interventional Pulm - f/u Bronch/Bx results - Continue Dex 4 mg q6h Objective Scheduled Meds PRN Meds Infusions cefepime, 2,000 mg, intravenous, Q8H CADY dexAMETHasone, 4 mg, intravenous, Q6H CADY DULoxetine DR, 60 mg, oral, Daily enoxaparin, 40 mg, subcutaneous, Daily-2100 gabapentin, 300 mg, oral, TID heparin flush (porcine), 5 mL, intra-catheter, BID metroNIDAZOLE, 500 mg, oral, TID morphine ER, 30 mg, oral, BID nicotine, 1 patch, transdermal, Daily pantoprazole, 40 mg, intravenous, BID polyethylene glycol, 17 g, oral, Daily senna-docusate, 1 tablet, oral, BID sodium chloride 0.9%, 10 mL, intra-catheter, Q12H CADY vancomycin, 1,500 mg, intravenous, Q12H acetaminophen, 500 mg, oral, Q6H PRN sodium chloride 0.9%, 30 mL, intravenous, PRN heparin flush (porcine), 2-5 mL, intra-catheter, PRN HYDROmorphone, 0.2 mg, intravenous, Q4H PRN magnesium oxide, 400 mg, oral, Q4H PRN magnesium sulfate, 2 g, intravenous, Q4H PRN magnesium sulfate, 4 g, intravenous, Q4H PRN magnesium sulfate, 6 g, intravenous, Q4H PRN ondansetron, 8 mg, oral, Q8H PRN OR ondansetron, 8 mg, intravenous, Q8H PRN oxyCODONE, 10 mg, oral, Q4H PRN perflutren protein-a (OPTISON) 3 mL in sodium chloride 0.9% 8 mL syringe, 1-8 mL, intravenous, Oncein imaging potassium chloride ER, 40 mEq, oral, Q2H PRN sodium chloride 0.9%, 10-20 mL, intra-catheter, PRN sodium chloride 0.9%, 30 mL/hr, intravenous, Continuous PRN sodium phosphate - potassium phosphate, 500 mg, oral, Daily PRN sodium chloride 0.9%, 30 mL/hr Vitals Most Recent Vitals: T (P) 36.6 ??C (97.9 ??F), HR (P) 64, BP (P) 127/65, RR (P) 16, SpO2 (P) 100 %. 24hr Min/Max: Temp Min: 36.3 ??C (97.4 ??F) Max: 36.8 ??C (98.2 ??F) Pulse Min: 63 Max: 68 BP Min: 109/60 Max: 148/65 Resp Min: 16 Max: 18 SpO2 Min: 97 % Max: 100 % Intake/Output Summary (Last 24 hours) at 05/02/2023 1210 Last data filed at 05/02/2023 0400 Gross per 24 hour Intake -- Output 1950 ml Net -1950 ml Physical Exam Constitutional: NAD, well developed, poor dentition, chronically-ill appearing, uses cane Eyes: PERRL, EOMI, anicteric ENT: NCAT, oropharynx normal, moist mucus membranes Lungs: Clear to auscultation in all lung alcaraz, unlabored Cardiovascular: RRR, normal S1 and S2, no murmurs, no JVD GI: Soft, non-tender, non-distended, bowel sounds +, no organomegaly Skin: No new rashes, lesions or bruises on visible skin Extremities: 1+ pitting edema BLEs Neurologic: AOx4, 5/5 strength all extremities, no sensory deficits, no midline ttp of spine, all visual alcaraz intact bilaterally, mild dysmetria which pt attributes to diplopia, normal heel-paz bilaterally, no dysdiadochokinesia Psychiatric: Normal affect and mood I have reviewed the patient's vital signs. Lines, Drains, Airways Single Lumen Implantable Port 07/05/21 Power Chest Right (Active) Labs/Diagnostic Review CBC: Recent Labs Lab Units 05/02/23 0037 WBC K/cumm 18.8* HEMOGLOBIN g/dL 7.6* HEMATOCRIT % 25.0* MCV fL 74.9* MCH pg 22.8* MCHC g/dL 30.4* RDW CV % 18.3* RDWSD fL 46.5 MPV fL 8.8* NEUTROS ABS K/cumm 17.5* LYMPHS PCT % 0.7 CMP: Recent Labs Lab Units 05/02/23 0037 SODIUM mmol/L 141 POTASSIUM PLASMA mmol/L 4.1 CO2 mmol/L 30 BUN SERUM mg/dL 13 GLUCOSE mg/dL 136 CREATININE mg/dL 0.65* CALCIUM mg/dL 8.1* CHLORIDE mmol/L 106 ALBUMIN g/dL 2.5* AST Units/L 11 ALT Units/L 9 ALK PHOS Units/L 147* BILIRUBIN TOTAL mg/dL 0.2 TOTAL PROTEIN g/dL 5.5* ANIONGAP mmol/L 5 LDH: Recent Labs Lab Units 04/29/23 0241 LACTATE DEHYDROGENASE (LDH) Units/L 176 INR - Uric Acid:- (Labs above are the most recent result obtained in the last 24 hours unless otherwise specified. For additional labs/trends, see Epic.) I have reviewed the laboratory results. Imaging Review XR Knee Right 1 or 2 Views Result Date: 05/01/2023 No acute fracture of the right knee. Electronically signed by: Zay Cordova M.D. XR Chest 1 View Result Date: 04/30/2023 Comparison 04/28/2023. There is a right chest port catheter which terminates in the right atrium. Stable cardiomediastinal silhouette. There is right mid upper lung opacities correlating with the foci of consolidation seen on PET/CT 04/29/2023; there is increased in this opacity likely correlating with post bronchoscopic change. There is also a small left pleural effusion, similar to prior study.No right pleural effusion. No pneumothorax. Dictated by: Darci Bhardwaj MD The radiology attendingphysician has personally reviewed this study, and had reviewed and/or edited this written report and agrees with it. Electronically signed by: Keron Molina M.D. I have independently reviewed and interpreted the PET imaging showing diffuse lymphomatous disease and hypermetabolic lung consolidation. Assessment/Plan * Hodgkin lymphoma (HCC) Assessment & Plan Diagnosed with 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 Ashford, [place], [place]. S/p ABVD (2 cycles) with progression [...] - MRI brain, spine w/ extensive disease Plan: - F/up pathology from R inguinal lymph node biopsy 04/27 at OSH (unclear if this was FNA vs core biopsy) - Discussed with Dr. Sena and Medical Oncology - Inpatient chemotherapy - No need for TLS - Started Dex 10 mg x1 followed by 4 mg [id number] - Pain control: Home morphine ER 30 mg BID with oxy 5 mg q4h PRN for breakthrough, continue home adjunctive gabapentin 300 mg TID and duloxetine 60 mg daily Lesion of right lung Assessment & Plan Patient's PET scan notable for hypermetabolic consolidation of the left lung concerning for metastatic disease versus infection. - Interventional Pulm consulted for biopsy, f/u path/cultures Double vision Assessment & Plan With bMRI showing indeterminant mild diffuse dural enhancement. Assessment: - Visual alcaraz intact, EOMI - MRI brain with orbits W con w/o explanatory lesion, although motion artifact limited Plan: - Discussed with Oncology who will further discuss utility/safety of LP (pt also has lumbar epidural collections that may make LP unsafe) - Per ID, no need for empiric meningitic coverage - Ophthalmology consulted Pneumonia Assessment & Plan Reported fever to 102 at OSH 04/27 with chest imaging c/f RUL PNA, possibly fungal. Started on IV vanc+pip-tazo+azithro at OSH (04/27-04/28), per OSH lab cultures were not drawn. On room air, no dyspnea. Will treat as hospital- acquired PNA with a possible post-obstructive component requiring anaerobic coverage. Possibly fungal infection given CT C/A/P 04/26 with nodularities in left lung and spleen as well possibly c/f fungal infection. - Empiric vanc (04/28- ), cefe (04/28- ), flagyl (04/28- ), azithro (04/28-04/30) - Sputum culture, UA pending - Blood cx x2 pending - CXR: Right upper lobe airspace opacity which is likely an infectious pneumonia - Histo, Blasto, Crypto, Coccidio, Aspergillus, mold culture pending - Called ID given question of need for empiric antifungal coverage: not needed at this time Lumbar spine tumor Assessment & Plan L-spine MRI W Con 04/26 with epidural [...] checks - Pharmacologic pain regimen described elsewhere Cervical spine disease Assessment & Plan OSH MRI C-spine WO Con with prominent anterior epidural soft tissue extending from C3 to C5 contributing to moderate spinal canal stenosis. CT C-spine with lytic lesions of C3-C5. Neuro exam with 5/5 strength BUEs, no sensory deficits. - MRI C-spine W Con - Routine neuro checks - Defer RadOnc pending discussions and evaluation for systemic treatment - Pharmacologic pain control described elsewhere Recurrent knee pain Assessment & Plan Patient w/ acute on chronic R knee pain, had sports injury many years ago, currently flaring. - X-ray R knee reassuring - Steroids being prescribed for HL Constipation Assessment & Plan Reports last BM at least 4 days ago. - KUB w/ moderate stool burden in R hemicolon, mild in L hemicolon - Daily Miralax, senna-doc Smoking Assessment & Plan - Continue home nicotine patch Bilateral leg edema Assessment & Plan BLE edema for past week likely 2/2 lymphadenopathy with venous compression. Also TTE during recent hospitalization with EF 45-50%. - TTE w/ normal LV+RV morphology/fx, small pericardial effusion - Duplex w/o e/o DVT Code status : Full Code Diet : Adult Diet Regular PT/OT Dispo Rec : / Supplementary Attestation Today, I am treating the patient for hodgkin's lymphoma which is in severe exacerbation, progression, or experiencing treatment side effects as evidenced by PET scan results, as described in the note. Discussed management of hypermetabolic lung consolidation with Interventional Pulm. Armando Castillo MD Internal Medicine Hospitalist Service 05/02/2023 12:10 PM * Annette Acosta NP - 05/01/2023 3:22 PM CDT Medical Oncology Daily Progress Karrie Capone is a 33yom w/ history of refractory HL, most recently treated in November with BEACOPP, presents with c/f relapsed disease. Interval History: NAEO, VSS. Patient is sitting upright in bed upon assessment today. He reports that his vision is still blurry on the right side but feels that he can see clearly from his left eye.He reports that the swelling in his legs has improved a lot and that his pain control is still improving. He is feeling very jittery with the steroids but he states that he is feeling well. He deniesany fevers or chills overnight. He reports having increased appetite and denies any nausea/emesis, diarrhea, SOB, CP, dizziness or headaches. Objective Scheduled Medications: cefepime, 2,000 mg, intravenous, Q8H CADY dexAMETHasone, 4 mg, intravenous, Q6H CADY DULoxetine DR, 60 mg, oral, Daily enoxaparin, 40 mg, subcutaneous, Daily-2100 gabapentin, 300 mg, oral, TID heparin flush (porcine), 5 mL, intra-catheter, BID metroNIDAZOLE, 500 mg, oral, TID morphine ER, 30 mg, oral, BID nicotine, 1 patch, transdermal, Daily pantoprazole, 40 mg, intravenous, BID polyethylene glycol, 17 g, oral, Daily senna-docusate, 1 tablet, oral, BID sodium chloride 0.9%, 10 mL, intra-catheter, Q12H CADY vancomycin, 1,250 mg, intravenous, Q12H Continuous Medications: sodium chloride 0.9%, 30 mL/hr PRN Medications: acetaminophen sodium chloride 0.9% heparin flush (porcine) magnesium oxide magnesium sulfate magnesium sulfate magnesium sulfate ondansetron OR ondansetron oxyCODONE perflutren protein-a (OPTISON) 3 mL in sodium chloride 0.9% 8 mL syringe potassium chloride ER sodium chloride 0.9% sodium chloride 0.9% sodium phosphate - potassium phosphate Vitals: Most Recent : Vitals: 05/01/23 0844 BP: Pulse: Resp: 18 Temp: 36.7 ??C (98.1 ??F) SpO2: 24hr Min/Max: Temp Min: 36.5 ??C (97.7 ??F) Max: 36.8 ??C (98.2 ??F) Pulse Min: 79 Max: 93 BP Min: 105/46 Max: 132/73 Resp Min: 14 Max: 19 SpO2 Min: 94 % Max: 100 % I/O: I/O last 2 completed shifts: In: 250 [I.V.:250] Out: 1150 [Urine:1150] No intake/output data recorded. Physical Exam: General Appearance: Alert, cooperative, no distress HEENT: NC/AT, neck is tender to hyperflexion, EOMI intact, blurry vision in R. Eye, trachea midline Lungs: respirations unlabored, chest expansion symmetrical Abdomen: Soft, non-tender, non-distended Extremities: PAINTING well, atraumatic, +1 ble edema Skin: Skin color, texture, turgor normal, no rashes or lesions Neurologic: A&Ox4. Gait not observed Psych: mood is euthymic and conversation is appropriate Lab/Radiology/Diagnostic Review: Recent Results (from the past 24 hour(s)) Aerobic culture and gram stain Bronchoalveolar lavage Lobe, right upper Collection Time: 04/30/23 3:24 PM Specimen: Lobe, right upper; Bronchoalveolar lavage Result Value Ref Range Direct Specimen Exam Stain: No polymorphonuclear leukocytes seen. Few squamous epithelial cells seen. Other cellular material present. No organisms seen. Report Preliminary Report: No growth to date. Mycology (fungal) culture Bronchoalveolar lavage Lobe, right upper Collection Time: 04/30/23 3:24 PM Specimen: Lobe, right upper; Bronchoalveolar lavage Result Value Ref Range Report Preliminary Report: No growth of fungus to date Aerobic and anaerobic culture and gram stain Aspirate Lymph node Collection Time: 04/30/23 3:24 PM Specimen: Lymph node; Aspirate Result Value Ref Range Direct Specimen Exam Stain: No polymorphonuclear leukocytes seen. No organisms seen. Report Preliminary Report: No growth to date. Mycology (fungal) culture Aspirate Lymph node Collection Time: 04/30/23 3:24 PM Specimen: Lymph node; Aspirate Result Value Ref Range Report Preliminary Report: No growth of fungus to date Cell count with reflex to differential, body fluid Collection Time: 04/30/23 3:24 PM Result Value Ref Range Specimen type, fld Bronchial Body site, fld Bronch Lavage Color, fld [place] Clarity, fld Cloudy (A) Clear Nucleated cells, fld 33 /cumm RBC, fld 5,873 /cumm Cell Differential, Body Fluid Collection Time: 04/30/23 3:24 PM Result Value Ref Range Total cells diffed 100 cells Neutrophils, fld 9 % Lymphs, fld 9 % Eosinophils, fld 3 % Macrophages, fld 79 % CBC with auto differential Collection Time: 05/01/23 12:49 AM Result Value Ref Range WBC 18.7 (H) 3.8 - 9.9 K/cumm Hgb 8.0 (L) 13.0 - 17.5 g/dL Hct 26.6 (L) 38.9 - 50.3 % Plt 504 (H) 150 - 400 K/cumm MPV 9.4 9.1 - 12.3 fL RBC 3.47 (L) 4.30 - 5.80 M/cumm MCV 76.7 (L) 81.3 - 96.4 fL MCH 23.1 (L) 27.1 - 33.3 pg MCHC 30.1 (L) 32.3 - 35.7 g/dL RDW CV 17.7 (H) 11.1 - 14.9 % RDW SD 48.2 (H) 35.7 - 48.1 fL NRBC abs 0.00 0.00 - 0.01 K/cumm Magnesium Collection Time: 05/01/23 12:49 AM Result Value Ref Range Magnesium 1.9 1.4 - 2.5 mg/dL Comprehensive metabolic panel Collection Time: 05/01/23 12:49 AM Result Value Ref Range Sodium 141 135 - 145 mmol/L Potassium, pl 4.0 3.3 - 4.9 mmol/L Chloride 105 97 - 110 mmol/L CO2 30 22 - 32 mmol/L Anion gap 6 2 - 15 mmol/L BUN 16 6 - 25 mg/dL Creatinine 0.72 (L) 0.80 - 1.30 mg/dL Glucose 199 70 - 199 mg/dL Calcium 7.7 (L) 8.5 - 10.3 mg/dL Bilirubin, total 0.2 0.1 - 1.2 mg/dL Protein, pl 5.5 (L) 6.5 - 8.5 g/dL Albumin 2.6 (L) 3.5 - 5.0 g/dL Alk phos 172 (H) 40 - 130 Units/L ALT 10 7 - 55 Units/L AST 13 10 - 50 Units/L Phosphorus Collection Time: 05/01/23 12:49 AM Result Value Ref Range Phosphorus, pl 2.0 (L) 2.3 - 4.5 mg/dL Differential, auto Collection Time: 05/01/23 12:49 AM Result Value Ref Range Neutrophil abs 17.3 (H) 1.7 - 6.5 K/cumm Imm gran abs 0.3 (H) 0.0 - 0.1 K/cumm Lymphocyte abs 0.1 (L) 0.8 - 3.3 K/cumm Monocyte abs 1.0 (H) 0.2 - 0.8 K/cumm Eosinophil abs 0.0 0.0 - 0.5 K/cumm Basophil abs 0.0 0.0 - 0.1 K/cumm Neutrophil pct 92.5 % Imm gran pct 1.4 % Lymphocyte pct 0.7 % Monocyte pct 5.3 % Eosinophil pct 0.0 % Basophil pct 0.1 % eGFR Collection Time: 05/01/23 12:49 AM Result Value Ref Range eGFR >90 90 - 130 mL/min/1.73 m2 I have reviewed the above laboratory results. Imaging Results: MRI Brain WO Contrast Result Date: 04/29/2023 Limited MRI without acute abnormality. Recommend repeat exam Dictated by: Paul Sanders MD The radiology attending physician has personally reviewed this study, and had reviewed and/or edited this written report and agrees with it. Electronically signed by: Leslie House M.D. XR Abdomen Ap 1 Vw Result Date: 04/28/2023 A single view of the abdomen is submitted for evaluation. Moderate stool burden is seen in the right hemicolon, with only mild stool burden in the left hemicolon. Electronically signed by: Elodia Harvey M.D. XR Chest 1 View Result Date: 04/28/2023 No priors available for comparison. Right internal jugular port overlies the right cavoatrial junction. Cardiomediastinal silhouette is normal. No pleural effusion or pneumothorax. Right upper lobe airspace opacity which is likely an infectious pneumonia, recommend follow-up in 2-4 weeks to evaluate for resolution. Dictated by: Mert Martinez MD The radiology attending physician has personally reviewed this study, and had reviewed and/or edited this written report and agrees with it. Electronically signed by: Danyel Lombardi M.D. Assessment/Plan #Refractory Hodgkin's lymphoma Dx in 11/2021, originally treated with ABVD followed by BEACOPP; only received up to C3D8 in 11/2022 - Had 12/2022 admission for pna/sepsis/neutropenia. Required pressors and intubation, no further treatment after hospitalization - Now presents from OSH with recurrent/worsening disease - CT w/ progression of lymphomatous diseased evidenced by increased multifocal adenopathy above andbelow the diaphragm with predominant involvement in the retroperitoneum and bilateral inguinal regions, increased size of multifocal lytic lesions in the axial and appendicular skeleton notably involving the femoral necks which puts the patient at risk for pathologic fracture. Unchanged pathologic compression fractures of T7 and L4. - MRI brain/thoracic/lumbar: diffuse dural enhancement, diffuse osseous metastatic disease in the thoracic and lumbar spine as detailed above, with unchanged pathologic fractures of T7 and L4 with new pathologic fracture of T11. Epidural extension of tumor at L4 results in severe canal stenosis. - Inguinal LN biopsy 04/27 at OSH; Pathology Resulted in Care Everywhere 05/01: Final Dx: Classic Hodgkin Lymphoma - Outpatient team will obtain path from original biopsy - PET 04/29: Extensive lymphomatous disease above and below the diaphragm including lymphadenopathy, osseous lesions, splenic involvement, and right gluteal intramuscular deposits. Large area of hypermetabolic consolidation in the right upper lobe with adjacent nodularity. - Plan for inpt chemo once further work up has been completed - Continue dex 10mg f/b 4q6hr (04/29- ) - Staffed with Dr. Sena 04/28; previously followed at OSH with Dr. Ashford #Blurred vision Reports blurred vision x 1 week. Covering eye on exam, made worse when looking forward - 04/29-Orbital MRI-Evaluation of the orbits limited by motion artifacts. Within this limitation, no apparent lesion to explain patient's symptoms. - Optho consult; agree with MRI- will obtain LP only if Optho c/f for leptomeningeal disease; will follow-up with recs #Ataxia Ongoing weakness with multiple falls over the last few weeks, likely related to spinal cord involvement. No other emergeny signs of cord compression - Recommend Neurology consult: recommend workup for meningeal enhancement (RAYA, JAVIER, ANCA, ESR, CRP, RF/CCP, RPR , HIV, cryptococcal antigen. Can consider T- spot given lung nodules), consider LP if c/f leptomeningeal disease - PT/OT #Fever Febrile at OSH, though no reports of blood cultures obtained. Was started on abx prior to transfer.No clear focal symptoms at this time - Worsening tree in bud opacities in the left upper and lower lobe suspicious for fungal or other atypical infection. - Repeat peripheral and blood cultures, UA, CXR - ID has been consulted: recommend fungal cultures, though asymptomatic so less suspicion true infection - Obtain sputum culture, serum Cocci Ab, Blasto Ab, Histo Ur Ag - Abx per primary: Azithromycin/Cefe (04/28- ) - IP consulted : s/p Bronchoscpy 04/30 (pending pathology) #Anasarca #BLE Worsening abd distention as well as BLE swelling over the last week, risen to scrotal on admission - Most recent echo w/ EF to be 45 to 50% on echocardiogram 12/16/2022 - Consider repeat TTE; ordered - Recommend BLE dopplers: no evidence of acute deep vein thrombosis in the lower extremities #Hypercalcemia (resolved) -Calcium at outside facility elevated at 11.7, with albumin 1.8, CTM -05/01- Calcium 7.7, Albumin 2.6 This patient was reviewed with Dr. Kurtz -Medical Oncologist Annette Acosta, [id number] Inpatient Nurse Practitioner for the Division of Medical Oncology Work cell: [phone] Cosigned by Jeremiah Kurtz MD PhD at 05/01/2023 8:57 PM CDT Associated attestation - Jeremiah Kurtz MD PhD - 05/01/2023 8:57 PM CDT I have seen and examined the patient on 05/01/23 in conjunction with the non- physician provider. History: Crystal Capone is a 33yom w/ history of refractory HL, most recently treated in November with BEACOPP, presents with c/f relapsed disease Physical Exam: Vitals reviewed General Appearance: Alert, cooperative, no distress HEENT: NC/AT, neck is tender to hyperflexion, EOMI intact, blurry vision in R. Eye, trachea midline Lungs: respirations unlabored, chest expansion symmetrical Abdomen: Soft, non-tender, non-distended Extremities: PAINTING well, atraumatic, +1 ble edema Skin: Skin color, texture, turgor normal, no rashes or lesions Neurologic: A&Ox4. Gait not observed Psych: mood is euthymic and conversation is appropriate Lab/Radiology/Diagnostics Review: Lab Results Component Value Date WBC 18.7 (H) 05/01/2023 HGB 8.0 (L) 05/01/2023 HCT 26.6 (L) 05/01/2023 MCV 76.7 (L) 05/01/2023 LABPLAT 504 (H) 05/01/2023 Chemistry Lab Results Component Value Date SODIUM 141 05/01/2023 POTASSIUM 4.0 05/01/2023 CHLORIDE 105 05/01/2023 CO2 30 05/01/2023 ANIONGAP 6 05/01/2023 BUNSER 16 05/01/2023 CREATININE 0.72 (L) 05/01/2023 GLUCOSE 199 05/01/2023 CALCIUM 7.7 (L) 05/01/2023 BILITOT 0.2 05/01/2023 ALBUMIN 2.6 (L) 05/01/2023 GFRNAA >90 05/01/2023 ALKPHOS 172 (H) 05/01/2023 AST 13 05/01/2023 ALT 10 05/01/2023 PHOS 2.0 (L) 05/01/2023 MAGNESIUM 1.9 05/01/2023 Assessment/Plan Chart review of second chart in Care Everywhere reported results of L inguinal LN biopsy from OSH confirming relapse of cHL. Biopsy of pulmonary mass is negative for fungal or mold organisms by gram stain; cultures and path pending. Will wait for confirmation of infection rule out. Discuss inpatient vs outpatient chemotherapy with primary oncologist, Dr. Sena if no infection. Will need arrangement for repeat C-scope on discharge. No indication for LP at this time. Continue antimicrobial coverage per ID. Currently afebrile. Jeremiah Kurtz MD PhD * Armando Castillo MD - 05/01/2023 10:03 AM CDT Oncology Daily Progress Note Division of Hospital Medicine Name: Crystal Capone : 1990 Today's Date: May 01, 2023 Age: 33 y.o. male Admission: 04/28/2023 Bed: [id number] LOS: 3 days Subjective Chief complaint: Transfer for Hodgkin's Lymphoma Interval History - No acute events overnight - VS wnl - Knee pain significantly improved Relevant Results: - Ca 8.3->7.7, corrected Ca still wnl, Phos 2.9->2.0 - CMP/Mg otherwise stable - WBC 12.6->18.7 ISO steroids, Hgb 7.1->8.0, Plt 436->504 - Bronchoscopy - Cultures and pathology pending - Cell count complete - CXR w/ post bronch findings - Knee XR pending read Brief Plan: - ID Consult - Continue broad spectrum antibiotics - Interventional Pulm - f/u Bronch/Bx results - Continue Dex 4 mg q6h - f/u R knee radiographs Objective Scheduled Meds PRN Meds Infusions cefepime, 2,000 mg, intravenous, Q8H CADY dexAMETHasone, 4 mg, intravenous, Q6H CADY DULoxetine DR, 60 mg, oral, Daily enoxaparin, 40 mg, subcutaneous, Daily-2100 gabapentin, 300 mg, oral, TID heparin flush (porcine), 5 mL, intra-catheter, BID metroNIDAZOLE, 500 mg, oral, TID morphine ER, 30 mg, oral, BID nicotine, 1 patch, transdermal, Daily pantoprazole, 40 mg, intravenous, BID polyethylene glycol, 17 g, oral, Daily senna-docusate, 1 tablet, oral, BID sodium chloride 0.9%, 10 mL, intra-catheter, Q12H CADY vancomycin, 1,250 mg, intravenous, Q12H acetaminophen, 500 mg, oral, Q6H PRN sodium chloride 0.9%, 30 mL, intravenous, PRN heparin flush (porcine), 2-5 mL, intra-catheter, PRN magnesium oxide, 400 mg, oral, Q4H PRN magnesium sulfate, 2 g, intravenous, Q4H PRN magnesium sulfate, 4 g, intravenous, Q4H PRN magnesium sulfate, 6 g, intravenous, Q4H PRN ondansetron, 8 mg, oral, Q8H PRN OR ondansetron, 8 mg, intravenous, Q8H PRN oxyCODONE, 5 mg, oral, Q4H PRN perflutren protein-a (OPTISON) 3 mL in sodium chloride 0.9% 8 mL syringe, 1-8 mL, intravenous, Oncein imaging potassium chloride ER, 40 mEq, oral, Q2H PRN sodium chloride 0.9%, 10-20 mL, intra-catheter, PRN sodium chloride 0.9%, 30 mL/hr, intravenous, Continuous PRN sodium phosphate - potassium phosphate, 500 mg, oral, Daily PRN sodium chloride 0.9%, 30 mL/hr Vitals Most Recent Vitals: T 36.7 ??C (98.1 ??F), HR 86, BP 128/74, RR 18, SpO2 100 %. 24hr Min/Max: Temp Min: 36.2 ??C (97.1 ??F) Max: 36.8 ??C (98.2 ??F) Pulse Min: 67 Max: 93 BP Min: 105/46 Max: 136/76 Resp Min: 9 Max: 19 SpO2 Min: 94 % Max: 100 % Intake/Output Summary (Last 24 hours) at 05/01/2023 1007 Last data filed at 05/01/2023 0054 Gross per 24 hour Intake 250 ml Output 1150 ml Net -900 ml Physical Exam Constitutional: NAD, well developed, poor dentition, chronically-ill appearing, uses cane Eyes: PERRL, EOMI, anicteric ENT: NCAT, oropharynx normal, moist mucus membranes Lungs: Clear to auscultation in all lung alcaraz, unlabored Cardiovascular: RRR, normal S1 and S2, no murmurs, no JVD GI: Soft, non-tender, non-distended, bowel sounds +, no organomegaly Skin: No new rashes, lesions or bruises on visible skin Extremities: 1+ pitting edema BLEs Neurologic: AOx4, 5/5 strength all extremities, no sensory deficits, no midline ttp of spine, all visual alcaraz intact bilaterally, mild dysmetria which pt attributes to diplopia, normal heel-paz bilaterally, no dysdiadochokinesia Psychiatric: Normal affect and mood I have reviewed the patient's vital signs. Lines, Drains, Airways Single Lumen Implantable Port 07/05/21 Power Chest Right (Active) Labs/Diagnostic Review CBC: Recent Labs Lab Units 05/01/23 0049 WBC K/cumm 18.7* HEMOGLOBIN g/dL 8.0* HEMATOCRIT % 26.6* MCV fL 76.7* MCH pg 23.1* MCHC g/dL 30.1* RDW CV % 17.7* RDWSD fL 48.2* MPV fL 9.4 NEUTROS ABS K/cumm 17.3* LYMPHS PCT % 0.7 CMP: Recent Labs Lab Units 05/01/23 0049 SODIUM mmol/L 141 POTASSIUM PLASMA mmol/L 4.0 CO2 mmol/L 30 BUN SERUM mg/dL 16 GLUCOSE mg/dL 199 CREATININE mg/dL 0.72* CALCIUM mg/dL 7.7* CHLORIDE mmol/L 105 ALBUMIN g/dL 2.6* AST Units/L 13 ALT Units/L 10 ALK PHOS Units/L 172* BILIRUBIN TOTAL mg/dL 0.2 TOTAL PROTEIN g/dL 5.5* ANIONGAP mmol/L 6 LDH: Recent Labs Lab Units 04/29/23 0241 LACTATE DEHYDROGENASE (LDH) Units/L 176 INR - Uric Acid:- (Labs above are the most recent result obtained in the last 24 hours unless otherwise specified. For additional labs/trends, see Epic.) I have reviewed the laboratory results. Imaging Review XR Knee Right 1 or 2 Views Result Date: 05/01/2023 No acute fracture of the right knee. Electronically signed by: Zay Cordova M.D. XR Chest 1 View Result Date: 04/30/2023 Comparison 04/28/2023. There is a right chest port catheter which terminates in the right atrium. Stable cardiomediastinal silhouette. There is right mid upper lung opacities correlating with the foci of consolidation seen on PET/CT 04/29/2023; there is increased in this opacity likely correlating with post bronchoscopic change. There is also a small left pleural effusion, similar to prior study.No right pleural effusion. No pneumothorax. Dictated by: Darci Bhardwaj MD The radiology attendingphysician has personally reviewed this study, and had reviewed and/or edited this written report and agrees with it. Electronically signed by: Keron Molina M.D. MRI Cervical Spine W WO Contrast Result Date: 04/29/2023 Mild degenerative changes of the cervical spine as described in detail above. 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 No has double visionand neck pain TECHNIQUE: Multiplanar multi-weighted MRI of the orbits was performed without and with intravenous contrast using the standard protocol. This included multiplanar high resolution imaging of the orbits and optic nerves. Multiplanar multi-weighted MRI of the cervical spine was performedwithout and with intravenous contrast using the standard protocol. Contrast information: 16 mL Gadoterate Meglumine COMPARISON: Outside MR studies on 04/25/2023 FINDINGS: ORBITS: Examination of the brain and orbits is markedly limited due to motion. Both globes are normal in shape and outline without proptosis. The extraocular muscles are normal in size. No intra- or extraconal masses are present. The intraconal fat is normal. The orbital mclain are intact. The lacrimal glands are normal in appearance. Meckel's cave appears normal on each side. The carotid artery flow voids are normal. The optic nerves and optic chiasm are normal. The suprasellar cistern is normal. CERVICAL SPINE: Abnormal bone marrow signal intensity C4-C7 vertebral bodies as well as T2-T3 vertebral bodies, worst at C4-[id number] with enhancement of vertebral bodies, in keeping with known metastatic involvement. There is abnormal epidural signal from C2 through C5, most prominent at C5-C6 level with mild mass effect on the cervical cord. Suspicious T2 hyperintensity in the cord at C4-C5 without enhancement, Evaluationis limited by motion artifact. There are no annular fissures identified. No soft tissue abnormalityis identified. Normal signal voids are present in the vertebral arteries. IMPRESSION: 1. Evaluationof the orbits limited by motion artifacts. Within this limitation, no apparent lesion to explain patient's symptoms. However, if there is persistent clinical concern, recommend repeat the MRI orbit without with without contrast. 2. Diffuse bone marrow replacing lesion involving entire lumbar vertebrae with enhancement most pronounced at the C4-C5 and T1-T2. These findings are in keeping with lymph omatous involvement. Minimal height loss at C4 vertebral body with minimal retropulsion suspicious for developing pathological fracture. 3. Suspicious T2 hyperintensity in the spinal cord at the C4-C5 levels without enhancement, however, evaluation is limited by motion artifact. 4. Ventral epiduralthickening at the C5-C6 also suspicious for lymphomatous involvement. Mild canal stenosis at these levels. Dictated by: Kecia Carballo MD The radiology attending physician has personally reviewed this study, and had reviewed and/or edited this written report and agrees with it. Electronically signed by: Saleem Hutchinson MD, PHD MRI Orbit W WO Contrast Result Date: 04/29/2023 Mild degenerative changes of the cervical spine as described in detail above. 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 No has double visionand neck pain TECHNIQUE: Multiplanar multi-weighted MRI of the orbits was performed without and with intravenous contrast using the standard protocol. This included multiplanar high resolution imaging of the orbits and optic nerves. Multiplanar multi-weighted MRI of the cervical spine was performedwithout and with intravenous contrast using the standard protocol. Contrast information: 16 mL Gadoterate Meglumine COMPARISON: Outside MR studies on 04/25/2023 FINDINGS: ORBITS: Examination of the brain and orbits is markedly limited due to motion. Both globes are normal in shape and outline without proptosis. The extraocular muscles are normal in size. No intra- or extraconal masses are present. The intraconal fat is normal. The orbital mclain are intact. The lacrimal glands are normal in appearance. Meckel's cave appears normal on each side. The carotid artery flow voids are normal. The optic nerves and optic chiasm are normal. The suprasellar cistern is normal. CERVICAL SPINE: Abnormal bone marrow signal intensity C4-C7 vertebral bodies as well as T2-T3 vertebral bodies, worst at C4-[id number] with enhancement of vertebral bodies, in keeping with known metastatic involvement. There is abnormal epidural signal from C2 through C5, most prominent at C5-C6 level with mild mass effect on the cervical cord. Suspicious T2 hyperintensity in the cord at C4-C5 without enhancement, Evaluationis limited by motion artifact. There are no annular fissures identified. No soft tissue abnormalityis identified. Normal signal voids are present in the vertebral arteries. IMPRESSION: 1. Evaluationof the orbits limited by motion artifacts. Within this limitation, no apparent lesion to explain patient's symptoms. However, if there is persistent clinical concern, recommend repeat the MRI orbit without with without contrast. 2. Diffuse bone marrow replacing lesion involving entire lumbar vertebrae with enhancement most pronounced at the C4-C5 and T1-T2. These findings are in keeping with lymph omatous involvement. Minimal height loss at C4 vertebral body with minimal retropulsion suspiciousfor developing pathological fracture. 3. Suspicious T2 hyperintensity in the spinal cord at the C4-C5 levels without enhancement, however, evaluation is limited by motion artifact. 4. Ventral epidural thickening at the C5-C6 also suspicious for lymphomatous involvement. Mild canal stenosis at theselevels. Dictated by: Kecia Carballo MD The radiology attending physician has personally reviewedthis study, and had reviewed and/or edited this written report and agrees with it. Electronically signed by: Saleem Hutchinson MD, PHD PET/CT FDG Skull to Thigh Result Date: 04/29/2023 1. Extensive lymphomatous disease above and below the diaphragm including lymphadenopathy, osseous lesions, splenic involvement, and right gluteal intramuscular deposits. 5PS=5. 2. Large area of hypermetabolic consolidation in the right upper lobe with adjacent nodularity. Differential diagnosis includes malignant and infectious processes (including opportunistic infection in this immunocompromised patient). This could be amenable to sampling via bronchoscopy or alternatively percutaneously. Dictated by: Hari Randle M.D. The radiology attending physician has personally reviewed this study, and had reviewed and/or edited this written report and agrees with it. Electronically signed by: Clifford Christopher M.D. I have independently reviewed and interpreted the PET imaging showing diffuse lymphomatous disease and hypermetabolic lung consolidation. Assessment/Plan * Hodgkin lymphoma (HCC) Assessment & Plan Diagnosed with 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 Ashford, [place], [place]. S/p ABVD (2 cycles) with progression [...] - MRI brain, spine w/ extensive disease Plan: - F/up pathology from R inguinal lymph node biopsy 04/27 at OSH (unclear if this was FNA vs core biopsy) - Discussed with Dr. Sena and Medical Oncology - Inpatient chemotherapy - No need for TLS - Started Dex 10 mg x1 followed by 4 mg [id number] - Pain control: Home morphine ER 30 mg BID with oxy 5 mg q4h PRN for breakthrough, continue home adjunctive gabapentin 300 mg TID and duloxetine 60 mg daily Lesion of right lung Assessment & Plan Patient's PET scan notable for hypermetabolic consolidation of the left lung concerning for metastatic disease versus infection. - Interventional Pulm consulted for biopsy, f/u path/cultures Double vision Assessment & Plan With bMRI showing indeterminant mild diffuse dural enhancement. Assessment: - Visual alcaraz intact, EOMI - MRI brain with orbits W con w/o explanatory lesion, although motion artifact limited Plan: - Discussed with Oncology who will further discuss utility/safety of LP (pt also has lumbar epidural collections that may make LP unsafe) - Per ID, no need for empiric meningitic coverage - Ophthalmology consulted Pneumonia Assessment & Plan Reported fever to 102 at OSH 04/27 with chest imaging c/f RUL PNA, possibly fungal. Started on IV vanc+pip-tazo+azithro at OSH (04/27-04/28), per OSH lab cultures were not drawn. On room air, no dyspnea. Will treat as hospital- acquired PNA with a possible post-obstructive component requiring anaerobic coverage. Possibly fungal infection given CT C/A/P 04/26 with nodularities in left lung and spleen as well possibly c/f fungal infection. - Empiric vanc (04/28- ), cefe (04/28- ), flagyl (04/28- ), azithro (04/28-04/30) - Sputum culture, UA pending - Blood cx x2 pending - CXR: Right upper lobe airspace opacity which is likely an infectious pneumonia - Histo, Blasto, Crypto, Coccidio, Aspergillus, mold culture pending - Called ID given question of need for empiric antifungal coverage: not needed at this time Lumbar spine tumor Assessment & Plan L-spine MRI W Con 04/26 with epidural [...] checks - Pharmacologic pain regimen described elsewhere Cervical spine disease Assessment & Plan OSH MRI C-spine WO Con with prominent anterior epidural soft tissue extending from C3 to C5 contributing to moderate spinal canal stenosis. CT C-spine with lytic lesions of C3-C5. Neuro exam with 5/5 strength BUEs, no sensory deficits. - MRI C-spine W Con - Routine neuro checks - Defer RadOnc pending discussions and evaluation for systemic treatment - Pharmacologic pain control described elsewhere Recurrent knee pain Assessment & Plan Patient w/ acute on chronic R knee pain, had sports injury many years ago, currently flaring. - X-ray R knee - Steroids being prescribed for HL Constipation Assessment & Plan Reports last BM at least 4 days ago. - KUB w/ moderate stool burden in R hemicolon, mild in L hemicolon - Daily Miralax, senna-doc Smoking Assessment & Plan - Continue home nicotine patch Bilateral leg edema Assessment & Plan BLE edema for past week likely 2/2 lymphadenopathy with venous compression. Also TTE during recent hospitalization with EF 45-50%. - TTE w/ normal LV+RV morphology/fx, small pericardial effusion - Duplex w/o e/o DVT Code status : Full Code Diet : Adult Diet Regular PT/OT Dispo Rec : / Supplementary Attestation Today, I am treating the patient for hodgkin's lymphoma which is in severe exacerbation, progression, or experiencing treatment side effects as evidenced by PET scan results, as described in the note. Discussed management of hypermetabolic lung consolidation with Interventional Pulm. Armando Castillo MD Internal Medicine Hospitalist Service 05/01/2023 10:07 AM * Armando Castillo MD - 04/30/2023 1:41 PM CDT Oncology Daily Progress Note Division of Hospital Medicine Name: Crystal Capone : 1990 Today's Date: April 30, 2023 Age: 33 y.o. male Admission: 04/28/2023 Bed: [id number] LOS: 2 days Subjective Chief complaint: Transfer for Hodgkin's Lymphoma Interval History - No acute events overnight - VS wnl Relevant Results: - CMP/Mg/Phos stable - WBC 14.3->12.6, Hgb 7.1, Plt [id number] - RAYA neg, JAVIER+, RECYCLABLE PRODUCTS SORTER 1.2, ANCA pending, ESR 83, CRP 57, RF <10, RPR NR, HIV NR, crypto ag neg, Tspot pending, blasto neg - Vanc Trough 15.3 - MRI w/ no apparent lesion for diplopia although motion artifact, developing pathological fractureat C4, suspicious hyperintensity at T2, Ventral epidural thickening at C5-C6 Brief Plan: - Ordered Vanc Trough for next 4 doses - Neuro Consult signed off, f/u if dural enhancement persists and thought not due to metastatic Hodgkin Lymphoma - ID Consult - Continue broad spectrum antibiotics - Interventional Pulm - Bronch/biopsy today - Continue Dex 4 mg q6h - R knee radiographs Objective Scheduled Meds PRN Meds Infusions cefepime, 2,000 mg, intravenous, Q8H CADY dexAMETHasone, 4 mg, intravenous, Q6H CADY DULoxetine DR, 60 mg, oral, Daily enoxaparin, 40 mg, subcutaneous, Daily-2100 gabapentin, 300 mg, oral, TID heparin flush (porcine), 5 mL, intra-catheter, BID metroNIDAZOLE, 500 mg, oral, TID morphine ER, 30 mg, oral, BID nicotine, 1 patch, transdermal, Daily pantoprazole, 40 mg, intravenous, BID polyethylene glycol, 17 g, oral, Daily senna-docusate, 1 tablet, oral, BID sodium chloride 0.9%, 10 mL, intra-catheter, Q12H CADY vancomycin, 15 mg/kg, intravenous, Q12H acetaminophen, 500 mg, oral, Q6H PRN sodium chloride 0.9%, 30 mL, intravenous, PRN heparin flush (porcine), 2-5 mL, intra-catheter, PRN magnesium oxide, 400 mg, oral, Q4H PRN magnesium sulfate, 2 g, intravenous, Q4H PRN magnesium sulfate, 4 g, intravenous, Q4H PRN magnesium sulfate, 6 g, intravenous, Q4H PRN ondansetron, 8 mg, oral, Q8H PRN OR ondansetron, 8 mg, intravenous, Q8H PRN oxyCODONE, 5 mg, oral, Q4H PRN perflutren protein-a (OPTISON) 3 mL in sodium chloride 0.9% 8 mL syringe, 1-8 mL, intravenous, Oncein imaging potassium chloride ER, 40 mEq, oral, Q2H PRN sodium chloride 0.9%, 10-20 mL, intra-catheter, PRN sodium chloride 0.9%, 30 mL/hr, intravenous, Continuous PRN sodium phosphate - potassium phosphate, 500 mg, oral, Daily PRN sodium chloride 0.9%, 30 mL/hr Vitals Most Recent Vitals: T 36.3 ??C (97.4 ??F), HR 71, BP 108/52, RR 16, SpO2 97 %. 24hr Min/Max: Temp Min: 36.2 ??C (97.1 ??F) Max: 36.5 ??C (97.7 ??F) Pulse Min: 63 Max: 98 BP Min: 107/59 Max: 136/83 Resp Min: 9 Max: 19 SpO2 Min: 94 % Max: 100 % Intake/Output Summary (Last 24 hours) at 04/30/2023 1513 Last data filed at 04/30/2023 1513 Gross per 24 hour Intake 250 ml Output 2100 ml Net -1850 ml Physical Exam Constitutional: NAD, well developed, poor dentition, chronically-ill appearing, uses cane Eyes: PERRL, EOMI, anicteric ENT: NCAT, oropharynx normal, moist mucus membranes Lungs: Clear to auscultation in all lung alcaraz, unlabored Cardiovascular: RRR, normal S1 and S2, no murmurs, no JVD GI: Soft, non-tender, non-distended, bowel sounds +, no organomegaly Skin: No new rashes, lesions or bruises on visible skin Extremities: 1+ pitting edema BLEs Neurologic: AOx4, 5/5 strength all extremities, no sensory deficits, no midline ttp of spine, all visual alcaraz intact bilaterally, mild dysmetria which pt attributes to diplopia, normal heel-paz bilaterally, no dysdiadochokinesia Psychiatric: Normal affect and mood I have reviewed the patient's vital signs. Lines, Drains, Airways Supraglottic Airway/LMA I- gel 4 (Active) Single Lumen Implantable Port 07/05/21 Power Chest Right (Active) Labs/Diagnostic Review CBC: Recent Labs Lab Units 04/30/23 0624 WBC K/cumm 12.6* HEMOGLOBIN g/dL 7.1* HEMATOCRIT % 23.5* MCV fL 74.8* MCH pg 22.6* MCHC g/dL 30.2* RDW CV % 17.4* RDWSD fL 47.3 MPV fL 8.7* NEUTROS ABS K/cumm 11.8* LYMPHS PCT % 0.9 CMP: Recent Labs Lab Units 04/30/23 0624 SODIUM mmol/L 138 POTASSIUM PLASMA mmol/L 4.0 CO2 mmol/L 29 BUN SERUM mg/dL 15 GLUCOSE mg/dL 134 CREATININE mg/dL 0.72* CALCIUM mg/dL 8.3* CHLORIDE mmol/L 103 ALBUMIN g/dL 2.3* AST Units/L 9* ALT Units/L 8 ALK PHOS Units/L 182* BILIRUBIN TOTAL mg/dL 0.2 TOTAL PROTEIN g/dL 5.6* ANIONGAP mmol/L 6 LDH: Recent Labs Lab Units 04/29/23 0241 LACTATE DEHYDROGENASE (LDH) Units/L 176 INR 1.35 Uric Acid:- (Labs above are the most recent result obtained in the last 24 hours unless otherwise specified. For additional labs/trends, see Epic.) I have reviewed the laboratory results. Imaging Review MRI Cervical Spine W WO Contrast Result Date: 04/29/2023 Mild degenerative changes of the cervical spine as described in detail above. 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 No has double visionand neck pain TECHNIQUE: Multiplanar multi-weighted MRI of the orbits was performed without and with intravenous contrast using the standard protocol. This included multiplanar high resolution imaging of the orbits and optic nerves. Multiplanar multi-weighted MRI of the cervical spine was performedwithout and with intravenous contrast using the standard protocol. Contrast information: 16 mL Gadoterate Meglumine COMPARISON: Outside MR studies on 04/25/2023 FINDINGS: ORBITS: Examination of the brain and orbits is markedly limited due to motion. Both globes are normal in shape and outline without proptosis. The extraocular muscles are normal in size. No intra- or extraconal masses are present. The intraconal fat is normal. The orbital mclain are intact. The lacrimal glands are normal in appearance. Meckel's cave appears normal on each side. The carotid artery flow voids are normal. The optic nerves and optic chiasm are normal. The suprasellar cistern is normal. CERVICAL SPINE: Abnormal bone marrow signal intensity C4-C7 vertebral bodies as well as T2-T3 vertebral bodies, worst at [id number] with enhancement of vertebral bodies, in keeping with known metastatic involvement. There is abnormal epidural signal from C2 through C5, most prominent at C5-C6 level with mild mass effect on the cervical cord. Suspicious T2 hyperintensity in the cord at C4-C5 without enhancement, Evaluationis limited by motion artifact. There are no annular fissures identified. No soft tissue abnormalityis identified. Normal signal voids are present in the vertebral arteries. IMPRESSION: 1. Evaluationof the orbits limited by motion artifacts. Within this limitation, no apparent lesion to explain patient's symptoms. However, if there is persistent clinical concern, recommend repeat the MRI orbit without with without contrast. 2. Diffuse bone marrow replacing lesion involving entire lumbar vertebrae with enhancement most pronounced at the C4-C5 and T1-T2. These findings are in keeping with lymph omatous involvement. Minimal height loss at C4 vertebral body with minimal retropulsion suspicious for developing pathological fracture. 3. Suspicious T2 hyperintensity in the spinal cord at the C4-C5 levels without enhancement, however, evaluation is limited by motion artifact. 4. Ventral epiduralthickening at the C5-C6 also suspicious for lymphomatous involvement. Mild canal stenosis at these levels. Dictated by: Kecia Carballo MD The radiology attending physician has personally reviewed this study, and had reviewed and/or edited this written report and agrees with it. Electronically signed by: Saleem Hutchinson MD, PHD MRI Orbit W WO Contrast Result Date: 04/29/2023 Mild degenerative changes of the cervical spine as described in detail above. 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 No has double visionand neck pain TECHNIQUE: Multiplanar multi-weighted MRI of the orbits was performed without and with intravenous contrast using the standard protocol. This included multiplanar high resolution imaging of the orbits and optic nerves. Multiplanar multi-weighted MRI of the cervical spine was performedwithout and with intravenous contrast using the standard protocol. Contrast information: 16 mL Gadoterate Meglumine COMPARISON: Outside MR studies on 04/25/2023 FINDINGS: ORBITS: Examination of the brain and orbits is markedly limited due to motion. Both globes are normal in shape and outline without proptosis. The extraocular muscles are normal in size. No intra- or extraconal masses are present. The intraconal fat is normal. The orbital mclain are intact. The lacrimal glands are normal in appearance. Meckel's cave appears normal on each side. The carotid artery flow voids are normal. The optic nerves and optic chiasm are normal. The suprasellar cistern is normal. CERVICAL SPINE: Abnormal bone marrow signal intensity C4-C7 vertebral bodies as well as T2-T3 vertebral bodies, worst at [id number] with enhancement of vertebral bodies, in keeping with known metastatic involvement. There is abnormal epidural signal from C2 through C5, most prominent at C5-C6 level with mild mass effect on the cervical cord. Suspicious T2 hyperintensity in the cord at C4-C5 without enhancement, Evaluationis limited by motion artifact. There are no annular fissures identified. No soft tissue abnormalityis identified. Normal signal voids are present in the vertebral arteries. IMPRESSION: 1. Evaluationof the orbits limited by motion artifacts. Within this limitation, no apparent lesion to explain patient's symptoms. However, if there is persistent clinical concern, recommend repeat the MRI orbit without with without contrast. 2. Diffuse bone marrow replacing lesion involving entire lumbar vertebrae with enhancement most pronounced at the C4-C5 and T1-T2. These findings are in keeping with lymph omatous involvement. Minimal height loss at C4 vertebral body with minimal retropulsion suspicious for developing pathological fracture. 3. Suspicious T2 hyperintensity in the spinal cord at the C4-C5 levels without enhancement, however, evaluation is limited by motion artifact. 4. Ventral epiduralthickening at the C5-C6 also suspicious for lymphomatous involvement. Mild canal stenosis at these levels. Dictated by: Kecia Carballo MD The radiology attending physician has personally reviewed this study, and had reviewed and/or edited this written report and agrees with it. Electronically signed by: Saleem Hutchinson MD, PHD PET/CT FDG Skull to Thigh Result Date: 04/29/2023 1. Extensive lymphomatous disease above and below the diaphragm including lymphadenopathy, osseous lesions, splenic involvement, and right gluteal intramuscular deposits. 5PS=5. 2. Large area of hypermetabolic consolidation in the right upper lobe with adjacent nodularity. Differential diagnosis includes malignant and infectious processes (including opportunistic infection in this immunocompromised patient). This could be amenable to sampling via bronchoscopy or alternatively percutaneously. Dictated by: Hari Randle M.D. The radiology attending physician has personally reviewed this study, and had reviewed and/or edited this written report and agrees with it. Electronically signed by: Clifford Christopher M.D. Neuro MR Outside Consult Result Date: 04/29/2023 Diffusely abnormal bone marrow throughout the cervical and thoracic spine concerning for lymphoma involvement of the spinal column bone marrow. Within the cervical spine, there is a suspected epidural extension of tumor from C3 through C5 which contributes to mild canal stenosis at C3-C4. The findings, conclusions and recommendations within this report do not replace the initial findings, conclusions and recommendations made at the facility where the study was performed based upon the imaging and clinical condition at that time. Comparison with the prior report and clinical history is necessary. The provided images may or may not represent the [place] source data set and thus may contain changes that may lower the accuracy of this second-opinion interpretation. Electronically signed by: Leslie House M.D. Neuro MR Outside Consult Result Date: 04/29/2023 Diffusely abnormal bone marrow throughout the cervical and thoracic spine concerning for lymphoma involvement of the spinal column bone marrow. Within the cervical spine, there is a suspected epidural extension of tumor from C3 through C5 which contributes to mild canal stenosis at C3-C4. The findings, conclusions and recommendations within this report do not replace the initial findings, conclusions and recommendations made at the facility where the study was performed based upon the imaging and clinical condition at that time. Comparison with the prior report and clinical history is necessary. The provided images may or may not represent the [place] source data set and thus may contain changes that may lower the accuracy of this second-opinion interpretation. Electronically signed by: Leslie House M.D. MRI Brain WO Contrast Result Date: 04/29/2023 Limited MRI without acute abnormality. Recommend repeat exam Dictated by: Paul Sanders MD The radiology attending physician has personally reviewed this study, and had reviewed and/or edited this written report and agrees with it. Electronically signed by: Leslie House M.D. XR Abdomen Ap 1 Vw Result Date: 04/28/2023 A single view of the abdomen is submitted for evaluation. Moderate stool burden is seen in the right hemicolon, with only mild stool burden in the left hemicolon. Electronically signed by: Elodia Harvey M.D. I have independently reviewed and interpreted the PET imaging showing diffuse lymphomatous disease and hypermetabolic lung consolidation. Assessment/Plan * Hodgkin lymphoma (HCC) Assessment & Plan Diagnosed with 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 Ashford, [place], [place]. S/p ABVD (2 cycles) with progression [...] - MRI brain, spine w/ extensive disease Plan: - F/up pathology from R inguinal lymph node biopsy 04/27 at OSH (unclear if this was FNA vs core biopsy) - Discussed with Dr. Sena and Medical Oncology - Inpatient chemotherapy - No need for TLS - Started Dex 10 mg x1 followed by 4 mg [id number] - Pain control: Home morphine ER 30 mg BID with oxy 5 mg q4h PRN for breakthrough, continue home adjunctive gabapentin 300 mg TID and duloxetine 60 mg daily Lesion of right lung Assessment & Plan Patient's PET scan notable for hypermetabolic consolidation of the left lung concerning for metastatic disease versus infection. - Interventional Pulm consulted for biopsy Double vision Assessment & Plan With bMRI showing indeterminant mild diffuse dural enhancement. Assessment: - Visual alcaraz intact, EOMI - MRI brain with orbits W con w/o explanatory lesion, although motion artifact limited Plan: - Discussed with Oncology who will further discuss utility/safety of LP (pt also has lumbar epidural collections that may make LP unsafe) - Per ID, no need for empiric meningitic coverage - Ophthalmology consulted Pneumonia Assessment & Plan Reported fever to 102 at OSH 04/27 with chest imaging c/f RUL PNA, possibly fungal. Started on IV vanc+pip-tazo+azithro at OSH (04/27-04/28), per OSH lab cultures were not drawn. On room air, no dyspnea. Will treat as hospital- acquired PNA with a possible post-obstructive component requiring anaerobic coverage. Possibly fungal infection given CT C/A/P 04/26 with nodularities in left lung and spleen as well possibly c/f fungal infection. - Empiric vanc (04/28- ), cefe (04/28- ), flagyl (04/28- ), azithro (04/28-04/30) - Sputum culture, UA pending - Blood cx x2 pending - CXR: Right upper lobe airspace opacity which is likely an infectious pneumonia - Histo, Blasto, Crypto, Coccidio, Aspergillus, mold culture pending - Called ID given question of need for empiric antifungal coverage: not needed at this time Lumbar spine tumor Assessment & Plan L-spine MRI W Con 04/26 with epidural [...] checks - Pharmacologic pain regimen described elsewhere Cervical spine disease Assessment & Plan OSH MRI C-spine WO Con with prominent anterior epidural soft tissue extending from C3 to C5 contributing to moderate spinal canal stenosis. CT C-spine with lytic lesions of C3-C5. Neuro exam with 5/5 strength BUEs, no sensory deficits. - MRI C-spine W Con - Routine neuro checks - Defer RadOnc pending discussions and evaluation for systemic treatment - Pharmacologic pain control described elsewhere Recurrent knee pain Assessment & Plan Patient w/ acute on chronic R knee pain, had sports injury many years ago, currently flaring. - X-ray R knee - Steroids being prescribed for HL Constipation Assessment & Plan Reports last BM at least 4 days ago. - KUB w/ moderate stool burden in R hemicolon, mild in L hemicolon - Daily Miralax, senna-doc Smoking Assessment & Plan - Continue home nicotine patch Bilateral leg edema Assessment & Plan BLE edema for past week likely 2/2 lymphadenopathy with venous compression. Also TTE during recent hospitalization with EF 45-50%. - TTE w/ normal LV+RV morphology/fx, small pericardial effusion - Duplex w/o e/o DVT Code status : Full Code Diet : NPO Diet PT/OT Dispo Rec : / Supplementary Attestation Today, I am treating the patient for hodgkin's lymphoma which is in severe exacerbation, progression, or experiencing treatment side effects as evidenced by PET scan results, as described in the note. Discussed management of hypermetabolic lung consolidation with Interventional Pulm. Armando Castillo MD Internal Medicine Hospitalist Service 04/30/2023 3:13 PM * Armando Castillo MD - 04/29/2023 1:56 PM CDT Oncology Daily Progress Note Division of Hospital Medicine Name: Crystal Capone : 1990 Today's Date: April 29, 2023 Age: 33 y.o. 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 use and smoking was right before getting hospitalized Relevant Results: - Alk Phos 245, P/A 5.8/2.3, CMP/Mg/Phos otherwise wnl - CBC w/ WBC 14.3, Hgb 7.1, Plt 486 - PT/INR 1.35/15.4, aPTT 36 - BCx/Fungal Cx pending - Vanc level 11.6 - ESR 83 - UA w/ 1+ prot, 1+ glucose, 2.0 urobilinogen - PET w/ extensive lymphomatous disease, large hypermetabolic consolidation in RUL w/ adjacent nodularity - TTE w/ normal LV+RV morphology/fx, small pericardial effusion Brief Plan: - Ordered Vanc Trough - Neuro Consult - RAYA, JAVIER, ANCA, CRP, RF/CCP, RPR, HIV, TSPOT - ID Consult - Continue broad spectrum antibiotics - Interventional Pulm consulted for bronch/biopsy - Repeat MRI Orbits and brain tonight - Starting dexamethasone 10 mg today followed by 4 mg q6h - R knee radiographs - Attempted call x3 to update Mom at [phone], not accepting calls at this time Objective Scheduled Meds PRN Meds Infusions azithromycin, 500 mg, oral, Daily cefepime, 2,000 mg, intravenous, Q8H CADY dexAMETHasone, 10 mg, intravenous, Once dexAMETHasone, 4 mg, intravenous, Q6H CADY DULoxetine DR, 60 mg, oral, Daily enoxaparin, 40 mg, subcutaneous, Daily-2100 gabapentin, 300 mg, oral, TID heparin flush (porcine), 5 mL, intra-catheter, BID metroNIDAZOLE, 500 mg, oral, TID morphine ER, 30 mg, oral, BID nicotine, 1 patch, transdermal, Daily polyethylene glycol, 17 g, oral, Daily senna-docusate, 1 tablet, oral, BID sodium chloride 0.9%, 10 mL, intra-catheter, Q12H CADY vancomycin, 15 mg/kg, intravenous, Q12H acetaminophen, 500 mg, oral, Q6H PRN sodium chloride 0.9%, 30 mL, intravenous, PRN heparin flush (porcine), 2-5 mL, intra-catheter, PRN HYDROmorphone, 0.5 mg, intravenous, Once PRN magnesium oxide, 400 mg, oral, Q4H PRN magnesium sulfate, 2 g, intravenous, Q4H PRN magnesium sulfate, 4 g, intravenous, Q4H PRN magnesium sulfate, 6 g, intravenous, Q4H PRN ondansetron, 8 mg, oral, Q8H PRN OR ondansetron, 8 mg, intravenous, Q8H PRN oxyCODONE, 5 mg, oral, Q4H PRN perflutren protein-a (OPTISON) 3 mL in sodium chloride 0.9% 8 mL syringe, 1-8 mL, intravenous, Oncein imaging potassium chloride ER, 40 mEq, oral, Q2H PRN sodium chloride 0.9%, 10-20 mL, intra-catheter, PRN sodium chloride 0.9%, 30 mL/hr, intravenous, Continuous PRN sodium phosphate - potassium phosphate, 500 mg, oral, Daily PRN sodium chloride 0.9%, 30 mL/hr Vitals Most Recent Vitals: T 36.3 ??C (97.3 ??F), HR 80, BP 127/60, RR 16, SpO2 100 %. 24hr Min/Max: Temp Min: 36.2 ??C (97.2 ??F) Max: 36.5 ??C (97.7 ??F) Pulse Min: 77 Max: 89 BP Min: 111/55 Max: 127/60 Resp Min: 16 Max: 18 SpO2 Min: 93 % Max: 100 % Intake/Output Summary (Last 24 hours) at 04/29/2023 1417 Last data filed at 04/29/2023 1240 Gross per 24 hour Intake 600 ml Output 1100 ml Net -500 ml Physical Exam Constitutional: NAD, well developed, poor dentition, chronically-ill appearing, uses cane Eyes: PERRL, EOMI, anicteric ENT: NCAT, oropharynx normal, moist mucus membranes Lungs: Clear to auscultation in all lung alcaraz, unlabored Cardiovascular: RRR, normal S1 and S2, no murmurs, no JVD GI: Soft, non-tender, non-distended, bowel sounds +, no organomegaly Skin: No new rashes, lesions or bruises on visible skin Extremities: 1+ pitting edema BLEs Neurologic: AOx4, 5/5 strength all extremities, no sensory deficits, no midline ttp of spine, all visual alcaraz intact bilaterally, mild dysmetria which pt attributes to diplopia, normal heel-paz bilaterally, no dysdiadochokinesia Psychiatric: Normal affect and mood I have reviewed the patient's vital signs. Lines, Drains, Airways Single Lumen Implantable Port 07/05/21 Power Chest Right (Active) Labs/Diagnostic Review CBC: Recent Labs Lab Units 04/29/23 0241 WBC K/cumm 14.3* HEMOGLOBIN g/dL 7.1* HEMATOCRIT % 23.1* MCV fL 74.0* MCH pg 22.8* MCHC g/dL 30.7* RDW CV % 17.2* RDWSD fL 46.2 MPV fL 8.9* NEUTROS ABS K/cumm 13.0* LYMPHS PCT % 1.1 CMP: Recent Labs Lab Units 04/29/23 0241 SODIUM mmol/L 138 POTASSIUM PLASMA mmol/L 3.6 CO2 mmol/L 29 BUN SERUM mg/dL 15 GLUCOSE mg/dL 120 CREATININE mg/dL 1.02 CALCIUM mg/dL 8.6 CHLORIDE mmol/L 103 ALBUMIN g/dL 2.3* AST Units/L 14 ALT Units/L 11 ALK PHOS Units/L 245* BILIRUBIN TOTAL mg/dL 0.3 TOTAL PROTEIN g/dL 5.8* ANIONGAP mmol/L 6 LDH: Recent Labs Lab Units 04/29/23 0241 LACTATE DEHYDROGENASE (LDH) Units/L 176 INR 1.35 Uric Acid:- (Labs above are the most recent result obtained in the last 24 hours unless otherwise specified. For additional labs/trends, see Epic.) I have reviewed the laboratory results. Imaging Review PET/CT FDG Skull to Thigh Result Date: 04/29/2023 1. Extensive lymphomatous disease above and below the diaphragm including lymphadenopathy, osseous lesions, splenic involvement, and right gluteal intramuscular deposits. 5PS=5. 2. Large area of hypermetabolic consolidation in the right upper lobe with adjacent nodularity. Differential diagnosis includes malignant and infectious processes (including opportunistic infection in this immunocompromised patient). This could be amenable to sampling via bronchoscopy or alternatively percutaneously. Dictated by: Hari Randle M.D. The radiology attending physician has personally reviewed this study, and had reviewed and/or edited this written report and agrees with it. Electronically signed by: Clifford Christopher M.D. Neuro MR Outside Consult Result Date: 04/29/2023 Diffusely abnormal bone marrow throughout the cervical and thoracic spine concerning for lymphoma involvement of the spinal column bone marrow. Within the cervical spine, there is a suspected epidural extension of tumor from C3 through C5 which contributes to mild canal stenosis at C3-C4. The findings, conclusions and recommendations within this report do not replace the initial findings, conclusions and recommendations made at the facility where the study was performed based upon the imaging and clinical condition at that time. Comparison with the prior report and clinical history is necessary. The provided images may or may not represent the [place] source data set and thus may contain changes that may lower the accuracy of this second-opinion interpretation. Electronically signed by: Leslie House M.D. Neuro MR Outside Consult Result Date: 04/29/2023 Diffusely abnormal bone marrow throughout the cervical and thoracic spine concerning for lymphoma involvement of the spinal column bone marrow. Within the cervical spine, there is a suspected epidural extension of tumor from C3 through C5 which contributes to mild canal stenosis at C3-C4. The findings, conclusions and recommendations within this report do not replace the initial findings, conclusions and recommendations made at the facility where the study was performed based upon the imaging and clinical condition at that time. Comparison with the prior report and clinical history is necessary. The provided images may or may not represent the [place] source data set and thus may contain changes that may lower the accuracy of this second-opinion interpretation. Electronically signed by: Leslie House M.D. MRI Brain WO Contrast Result Date: 04/29/2023 Limited MRI without acute abnormality. Recommend repeat exam Dictated by: Paul Sanders MD The radiology attending physician has personally reviewed this study, and had reviewed and/or edited this written report and agrees with it. Electronically signed by: Leslie House M.D. XR Abdomen Ap 1 Vw Result Date: 04/28/2023 A single view of the abdomen is submitted for evaluation. Moderate stool burden is seen in the right hemicolon, with only mild stool burden in the left hemicolon. Electronically signed by: Elodia Harvey M.D. XR Chest 1 View Result Date: 04/28/2023 No priors available for comparison. Right internal jugular port overlies the right cavoatrial junction. Cardiomediastinal silhouette is normal. No pleural effusion or pneumothorax. Right upper lobe airspace opacity which is likely an infectious pneumonia, recommend follow-up in 2-4 weeks to evaluate for resolution. Dictated by: Mert Martinez MD The radiology attending physician has personally reviewed this study, and had reviewed and/or edited this written report and agrees with it. Electronically signed by: Danyel Lombardi M.D. I have independently reviewed and interpreted the PET imaging showing diffuse lymphomatous disease and hypermetabolic lung consolidation. Assessment/Plan * Hodgkin lymphoma (HCC) Assessment & Plan Diagnosed with 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 Ashford, [place], [place]. S/p ABVD (2 cycles) with progression [...] PET-CT w/ extensive lymphadenopathy, hypermetabolic consolidation in lung Plan: - F/up pathology from R inguinal lymph node biopsy 04/27 at OSH (unclear if this was FNA vs core biopsy) - Discussed with Dr. Sena and Medical Oncology - Inpatient chemotherapy - No need for TLS - Starting Dex 10 mg x1 followed by 4 mg [id number] - Pain control: Home morphine ER 30 mg BID with oxy 5 mg q4h PRN for breakthrough, continue home adjunctive gabapentin 300 mg TID and duloxetine 60 mg daily Double vision Assessment & Plan With bMRI showing indeterminant mild diffuse dural enhancement. - Visual alcaraz intact, EOMI - Discussed with Oncology who will further discuss utility/safety of LP (pt also has lumbar epidural collections that may make LP unsafe) - Per ID, no need for empiric meningitic coverage - MRI brain with orbits W con - Ophthalmology consulted, agree w/ MRI Pneumonia Assessment & Plan Reported fever to 102 at OSH 04/27 with chest imaging c/f RUL PNA, possibly fungal. Started on IV vanc+pip-tazo+azithro at OSH (04/27-04/28), per OSH lab cultures were not drawn. On room air, no dyspnea. Will treat as hospital- acquired PNA with a possible post-obstructive component requiring anaerobic coverage. Possibly fungal infection given CT C/A/P 04/26 with nodularities in left lung and spleen as well possibly c/f fungal infection. - Empiric vanc (04/28- ), cefe (04/28- ), flagyl (04/28- ), azithro (04/28-04/30) - Sputum culture, UA pending - Blood cx x2 pending - CXR: Right upper lobe airspace opacity which is likely an infectious pneumonia - Histo, Blasto, Crypto, Coccidio, Aspergillus, mold culture pending - Called ID given question of need for empiric antifungal coverage: not needed at this time Lumbar spine tumor Assessment & Plan L-spine MRI W Con 04/26 with epidural [...] checks - Pharmacologic pain regimen described elsewhere Cervical spine disease Assessment & Plan OSH MRI C-spine WO Con with prominent anterior epidural soft tissue extending from C3 to C5 contributing to moderate spinal canal stenosis. CT C-spine with lytic lesions of C3-C5. Neuro exam with 5/5 strength BUEs, no sensory deficits. - MRI C-spine W Con - Routine neuro checks - Agree with OSH consideration of Rad Onc involvement for palliative radiation - Pharmacologic pain control described elsewhere Recurrent knee pain Assessment & Plan Patient w/ acute on chronic R knee pain, had sports injury many years ago, currently flaring. - X-ray R knee - Steroids being prescribed for HL Constipation Assessment & Plan Reports last BM at least 4 days ago. - KUB w/ moderate stool burden in R hemicolon, mild in L hemicolon - Daily Miralax, senna-doc Smoking Assessment & Plan - Continue home nicotine patch Bilateral leg edema Assessment & Plan BLE edema for past week likely 2/2 lymphadenopathy with venous compression. Also TTE during recent hospitalization with EF 45-50%. - TTE w/ normal LV+RV morphology/fx, small pericardial effusion - Duplex w/o e/o DVT Code status : Full Code Diet : Adult Diet Regular PT/OT Dispo Rec : / Supplementary Attestation Today, I am treating the patient for hodgkin's lymphoma which is in severe exacerbation, progression, or experiencing treatment side effects as evidenced by PET scan results, as described in the note. Discussed management of hypermetabolic lung consolidation with Interventional Pulm. Armando Castillo MD Internal Medicine Hospitalist Service 04/29/2023 2:17 PM * Yvrose Bills NP - 04/29/2023 9:54 AM CDT Medical Oncology Daily Progress Subjective Chief complaint: Hodgkin's lymphoma Interval History: No acute events overnight. Unable to tolerate MRI due to neck pain. Also reports worsening R knee pain, which he reports has been struggling with for years. Otherwise denies any major complaints. PET scan completed this AM, discussed plan to start steroids today. Denied any other questions or concerns. Objective Scheduled Medications: azithromycin, 500 mg, oral, Daily cefepime, 2,000 mg, intravenous, Q8H CADY DULoxetine DR, 60 mg, oral, Daily enoxaparin, 40 mg, subcutaneous, Daily-2100 gabapentin, 300 mg, oral, TID heparin flush (porcine), 5 mL, intra-catheter, BID metroNIDAZOLE, 500 mg, oral, TID morphine ER, 30 mg, oral, BID nicotine, 1 patch, transdermal, Daily polyethylene glycol, 17 g, oral, Daily senna-docusate, 1 tablet, oral, BID sodium chloride 0.9%, 10 mL, intra-catheter, Q12H CADY vancomycin, 15 mg/kg, intravenous, Q12H Continuous Medications: sodium chloride 0.9%, 30 mL/hr PRN Medications: acetaminophen sodium chloride 0.9% fludeoxyglucose F-18 (FDG) heparin flush (porcine) HYDROmorphone magnesium oxide magnesium sulfate magnesium sulfate magnesium sulfate ondansetron OR ondansetron oxyCODONE potassium chloride ER sodium chloride 0.9% sodium chloride 0.9% sodium phosphate - potassium phosphate Vitals: Most Recent : Vitals: 04/29/23 0805 BP: 111/55 Pulse: 77 Resp: 16 Temp: 36.5 ??C (97.7 ??F) SpO2: 95% 24hr Min/Max: Temp Min: 36.2 ??C (97.2 ??F) Max: 36.5 ??C (97.7 ??F) Pulse Min: 77 Max: 91 BP Min: 111/55 Max: 124/60 Resp Min: 16 Max: 18 SpO2 Min: 93 % Max: 100 % I/O: I/O last 2 completed shifts: In: - Out: 1100 [Urine:1100] No intake/output data recorded. Physical Exam: General Appearance: Alert, cooperative, no distress Lungs: respirations unlabored Abdomen: Soft, non-tender, distende Extremities: PAINTING well, atraumatic, +1 ble edema Skin: Skin color, texture, turgor normal, no rashes or lesions Neurologic: A&Ox4. Gait not observed Psych: mood is euthymic and conversation is appropriate Lab/Radiology/Diagnostic Review: Recent Results (from the past 24 hour(s)) CBC with auto differential Collection Time: 04/28/23 12:52 PM Result Value Ref Range WBC 12.5 (H) 3.8 - 9.9 K/cumm Hgb 8.0 (L) 13.0 - 17.5 g/dL Hct 25.2 (L) 38.9 - 50.3 % Plt 465 (H) 150 - 400 K/cumm MPV 8.8 (L) 9.1 - 12.3 fL RBC 3.45 (L) 4.30 - 5.80 M/cumm MCV 73.0 (L) 81.3 - 96.4 fL MCH 23.2 (L) 27.1 - 33.3 pg MCHC 31.7 (L) 32.3 - 35.7 g/dL RDW CV 17.1 (H) 11.1 - 14.9 % RDW SD 44.7 35.7 - 48.1 fL NRBC abs 0.00 0.00 - 0.01 K/cumm Comprehensive metabolic panel Collection Time: 04/28/23 12:52 PM Result Value Ref Range Sodium 135 135 - 145 mmol/L Potassium, pl 3.6 3.3 - 4.9 mmol/L Chloride 98 97 - 110 mmol/L CO2 29 22 - 32 mmol/L Anion gap 8 2 - 15 mmol/L BUN 16 6 - 25 mg/dL Creatinine 0.96 0.80 - 1.30 mg/dL Glucose 134 70 - 199 mg/dL Calcium 8.6 8.5 - 10.3 mg/dL Bilirubin, total 0.4 0.1 - 1.2 mg/dL Protein, pl 5.9 (L) 6.5 - 8.5 g/dL Albumin 2.7 (L) 3.5 - 5.0 g/dL Alk phos 293 (H) 40 - 130 Units/L ALT 10 7 - 55 Units/L AST 16 10 - 50 Units/L Magnesium Collection Time: 04/28/23 12:52 PM Result Value Ref Range Magnesium 1.7 1.4 - 2.5 mg/dL Phosphorus Collection Time: 04/28/23 12:52 PM Result Value Ref Range Phosphorus, pl 3.0 2.3 - 4.5 mg/dL Type and screen Collection Time: 04/28/23 12:52 PM Result Value Ref Range Long, indirect Negative ABO Rh O Positive Erythrocyte sedimentation rate Collection Time: 04/28/23 12:52 PM Result Value Ref Range Erythrocyte sedimentation rate 83 (H) 1 - 15 mm/hr Differential, auto Collection Time: 04/28/23 12:52 PM Result Value Ref Range Neutrophil abs 11.8 (H) 1.7 - 6.5 K/cumm Imm gran abs 0.2 (H) 0.0 - 0.1 K/cumm Lymphocyte abs 0.1 (L) 0.8 - 3.3 K/cumm Monocyte abs 0.5 0.2 - 0.8 K/cumm Eosinophil abs 0.0 0.0 - 0.5 K/cumm Basophil abs 0.0 0.0 - 0.1 K/cumm Neutrophil pct 93.9 % Imm gran pct 1.4 % Lymphocyte pct 1.0 % Monocyte pct 3.6 % Eosinophil pct 0.0 % Basophil pct 0.1 % eGFR Collection Time: 04/28/23 12:52 PM Result Value Ref Range eGFR >90 90 - 130 mL/min/1.73 m2 Check Sample Collection Time: 04/28/23 2:38 PM Result Value Ref Range ABO Rh O Positive Urinalysis reflex to microscopic and culture Urine, clean voided Collection Time: 04/28/23 2:38 PM Specimen: Urine, clean voided Result Value Ref Range Color, ur Yellow Yellow Clarity, ur Clear Clear Specific gravity, ur 1.030 1.003 - 1.030 pH, urine 6.0 Protein, ur ql 1+ (A) Negative Glucose, ur ql 1+ (A) Negative Ketones, ur Negative Negative Bilirubin, ur Negative Negative Blood, ur Negative Negative Urobilinogen, ur 2.0 (A) <2.0 mg/dL Nitrite, ur Negative Negative Leukocyte esterase, ur Negative Negative UA reflex comment Reflex to microscopic UA will be performed. Blood culture Blood Collection Time: 04/28/23 2:38 PM Specimen: Blood Result Value Ref Range Report Preliminary Report: No growth to date. Iron profile w/ IBC Collection Time: 04/28/23 2:38 PM Result Value Ref Range Iron 37 (L) 50 - 150 mcg/dL TIBC 147 (L) 250 - 400 mcg/dL Transferrin saturation 25 20 - 50 % Ferritin Collection Time: 04/28/23 2:38 PM Result Value Ref Range Ferritin 1,907 (H) 30 - 400 ng/mL Urinalysis, microscopic only Collection Time: 04/28/23 2:38 PM Result Value Ref Range WBC, ur 0-5 0 - 5 /HPF RBC, ur 0-2 0 - 2 /HPF Epithelial cells, squamous, ur 1-5 0 - 5 /HPF Bacteria, ur Trace (A) Mucous, ur Present (A) Culture Reflex Comment Reflex conditions for urine culture (WBC >10) not met. Vancomycin level random Collection Time: 04/28/23 2:38 PM Result Value Ref Range Vancomycin random 11.6 mcg/mL ECG 12 lead Collection Time: 04/28/23 4:20 PM Result Value Ref Range Ventricular Rate EKG/Min 91 BPM Atrial Rate 91 BPM IA-Interval (MSEC) 138 ms QRS-Interval (MSEC) 94 ms QT-Interval (MSEC) 358 ms QTc 440 ms P Burns 44 degrees R Burns 42 degrees T Burns 17 degrees Diagnosis Normal sinus rhythm Nonspecific T wave abnormality Abnormal ECG No previous ECGs available Confirmed by MAYELA GUAN M.D ([id number]) on 04/28/2023 7:01:48 PM Mold Blood Culture Blood Collection Time: 04/28/23 6:30 PM Specimen: Blood Result Value Ref Range Report Preliminary Report: No growth of fungus to date CBC with auto differential Collection Time: 04/29/23 2:41 AM Result Value Ref Range WBC 14.3 (H) 3.8 - 9.9 K/cumm Hgb 7.1 (L) 13.0 - 17.5 g/dL Hct 23.1 (L) 38.9 - 50.3 % Plt 486 (H) 150 - 400 K/cumm MPV 8.9 (L) 9.1 - 12.3 fL RBC 3.12 (L) 4.30 - 5.80 M/cumm MCV 74.0 (L) 81.3 - 96.4 fL MCH 22.8 (L) 27.1 - 33.3 pg MCHC 30.7 (L) 32.3 - 35.7 g/dL RDW CV 17.2 (H) 11.1 - 14.9 % RDW SD 46.2 35.7 - 48.1 fL NRBC abs 0.00 0.00 - 0.01 K/cumm Magnesium Collection Time: 04/29/23 2:41 AM Result Value Ref Range Magnesium 1.8 1.4 - 2.5 mg/dL Comprehensive metabolic panel Collection Time: 04/29/23 2:41 AM Result Value Ref Range Sodium 138 135 - 145 mmol/L Potassium, pl 3.6 3.3 - 4.9 mmol/L Chloride 103 97 - 110 mmol/L CO2 29 22 - 32 mmol/L Anion gap 6 2 - 15 mmol/L BUN 15 6 - 25 mg/dL Creatinine 1.02 0.80 - 1.30 mg/dL Glucose 120 70 - 199 mg/dL Calcium 8.6 8.5 - 10.3 mg/dL Bilirubin, total 0.3 0.1 - 1.2 mg/dL Protein, pl 5.8 (L) 6.5 - 8.5 g/dL Albumin 2.3 (L) 3.5 - 5.0 g/dL Alk phos 245 (H) 40 - 130 Units/L ALT 11 7 - 55 Units/L AST 14 10 - 50 Units/L Phosphorus Collection Time: 04/29/23 2:41 AM Result Value Ref Range Phosphorus, pl 2.4 2.3 - 4.5 mg/dL Type and screen Collection Time: 04/29/23 2:41 AM Result Value Ref Range Long, indirect Negative ABO Rh O Positive aPTT Collection Time: 04/29/23 2:41 AM Result Value Ref Range aPTT 36 28 - 38 sec Protime-INR Collection Time: 04/29/23 2:41 AM Result Value Ref Range PT 15.4 (H) 10.3 - 13.7 sec INR 1.35 (H) 0.90 - 1.20 Differential, auto Collection Time: 04/29/23 2:41 AM Result Value Ref Range Neutrophil abs 13.0 (H) 1.7 - 6.5 K/cumm Imm gran abs 0.2 (H) 0.0 - 0.1 K/cumm Lymphocyte abs 0.2 (L) 0.8 - 3.3 K/cumm Monocyte abs 1.0 (H) 0.2 - 0.8 K/cumm Eosinophil abs 0.0 0.0 - 0.5 K/cumm Basophil abs 0.0 0.0 - 0.1 K/cumm Neutrophil pct 90.9 % Imm gran pct 1.0 % Lymphocyte pct 1.1 % Monocyte pct 6.8 % Eosinophil pct 0.1 % Basophil pct 0.1 % eGFR Collection Time: 04/29/23 2:41 AM Result Value Ref Range eGFR >90 90 - 130 mL/min/1.73 m2 Lactate dehydrogenase (LD) Collection Time: 04/29/23 2:41 AM Result Value Ref Range Lactate dehydrogenase (LDH) 176 100 - 250 Units/L I have reviewed the above laboratory results. Imaging Results: MRI Brain WO Contrast Result Date: 04/29/2023 Limited MRI without acute abnormality. Recommend repeat exam Dictated by: Paul Sanders MD The radiology attending physician has personally reviewed this study, and had reviewed and/or edited this written report and agrees with it. Electronically signed by: Leslie House M.D. XR Abdomen Ap 1 Vw Result Date: 04/28/2023 A single view of the abdomen is submitted for evaluation. Moderate stool burden is seen in the right hemicolon, with only mild stool burden in the left hemicolon. Electronically signed by: Elodia Harvey M.D. XR Chest 1 View Result Date: 04/28/2023 No priors available for comparison. Right internal jugular port overlies the right cavoatrial junction. Cardiomediastinal silhouette is normal. No pleural effusion or pneumothorax. Right upper lobe airspace opacity which is likely an infectious pneumonia, recommend follow-up in 2-4 weeks to evaluate for resolution. Dictated by: Mert Martinez MD The radiology attending physician has personally reviewed this study, and had reviewed and/or edited this written report and agrees with it. Electronically signed by: Danyel Lombardi M.D. Assessment/Plan #Refractory Hodgkin's lymphoma Dx in 11/2021, originally treated with ABVD followed by BEACOPP; only received up to C3D8 in 11/2022 - Had 12/2022 admission for pna/sepsis/neutropenia. Required pressors and intubation, no further treatment after hospitalization - Now presents from OSH with recurrent/worsening disease - CT w/ progression of lymphomatous diseased evidenced by increased multifocal adenopathy above andbelow the diaphragm with predominant involvement in the retroperitoneum and bilateral inguinal regions, increased size of multifocal lytic lesions in the axial and appendicular skeleton notably involving the femoral necks which puts the patient at risk for pathologic fracture. Unchanged pathologic compression fractures of T7 and L4. - MRI brain/thoracic/lumbar: diffuse dural enhancement, diffuse osseous metastatic disease in the thoracic and lumbar spine as detailed above, with unchanged pathologic fractures of T7 and L4 with new pathologic fracture of T11. Epidural extension of tumor at L4 results in severe canal stenosis. - Inguinal LN biopsy 04/27 at OSH; awaiting pathology - Outpatient team will obtain path from original biopsy - PET 04/29: Extensive lymphomatous disease above and below the diaphragm including lymphadenopathy, osseous lesions, splenic involvement, and right gluteal intramuscular deposits. Large area of hypermetabolic consolidation in the right upper lobe with adjacent nodularity. - Plan for inpt chemo once further work up has been completed - Start dex 10mg f/b 4q6hr (04/29- ) - Staffed with Dr. Sena 04/28; previously followed at OSH with Dr. Ashford #Blurred vision Reports blurred vision x 1 week. Covering eye on exam, made worse when looking forward - Please obtain Brain/Orbital MRI - Optho consult; agree with MRI #Ataxia Ongoing weakness with multiple falls over the last few weeks, likely related to spinal cord involvement. No other emergeny signs of cord compression - Recommend Neurology consult: recommend workup for meningeal enhancement (RAYA, JAVIER, ANCA, ESR, CRP, RF/CCP, RPR , HIV, cryptococcal antigen. Can consider T- spot given lung nodules), consider LP - PT/OT #Fever Febrile at OSH, though no reports of blood cultures obtained. Was started on abx prior to transfer.No clear focal symptoms at this time - Worsening tree in bud opacities in the left upper and lower lobe suspicious for fungal or other atypical infection. - Repeat peripheral and blood cultures, UA, CXR - ID has been consulted: recommend fungal cultures, though asymptomatic so less suspicion true infection - Obtain sputum culture, serum Cocci Ab, Blasto Ab, Histo Ur Ag - Abx per primary: Azithromycin/Cefe (04/28- ) - IP consulted : Plan for bronch to assess consolidation of RUL #Anasarca #BLE Worsening abd distention as well as BLE swelling over the last week, risen to scrotal on admission - Most recent echo w/ EF to be 45 to 50% on echocardiogram 12/16/2022 - Consider repeat TTE; ordered - Recommend BLE dopplers: no evidence of acute deep vein thrombosis in the lower extremities #Hypercalcemia (resolved) -Calcium at outside facility elevated at 11.7, with albumin 1.8, CTM This patient was staffed with Dr. Dougherty -Medical Oncologist Yvrose Bills RN, MSN, [employer]- Inpatient Nurse Practitioner for the Division of Medical Oncology Work cell: [phone] Cosigned by Elpidio Dougherty MD PhD at 04/29/2023 3:56 PM CDT documented in this encounter H&P Notes * Richmond Ho MD - 04/28/2023 12:29 PM CDT Oncology History and Physical Division of [facility] Medicine Name: Crystal Capone : 1990 Today's Date: April 28, 2023 Age: 33 y.o. male Admit Date: 04/28/2023 Bed: [id number] LOS: 0 days Subjective HPI PATIENT HAS ANOTHER CHART: CRYSTAL Capone is a 33 yo man with PMH recurrent Hodgkin lymphoma, HFmrEF, PNA c/b intubation and septic shock, cigar and cigarette smoking, methamphetamine use, and EtOH use disorder (in remission) who presents from [facility] in [place], [place] for further management of recurrent Hodgkin lymphoma. Mr. Capone was diagnosed with Hodgkin lymphoma stage ALANA in 11/[address] Ashford, Oncology in [place], [place]. He completed ABVD (2 cycles) with imaging showing some areas of progression. He then started BEACOPP and completed 2 cycles and most of cycle 3 (up to day 8 on December 02, 2022) but stopped prednisone due to neutropenic fever. After 11/2022, he was supposed to have routine imaging for restaging; however, he was unable to attend any of his imaging or appointments due to lack of insurance coverage for transportation. He was admitted to a local hospital 12/14-12/21/22 with septic shock and acute hypoxic respiratory failure 2/2 RUL PNA requiring intubation. He was treated wi th broad spectrum antibiotics and filgastrim and was discharged home on room air. A CTA Chest was performed at that time due to a concern for SVC syndrome vs SVC thrombus raised during a previous hospitalization; it showed normal SVC. TTE showed EF 45-50%. One week ago, he developed new neck pain, BLE edema, and double vision. He presented to [facility] in [place], [place] where he was admitted 04/24 until transfer to [facility] 04/28. CT C/A/P 04/26 was notable for ([facility] overread): progression of lymphomatous disease (compared with CT 12/2022), worsening tree in bud opacities in the left upper and lower lobe suspicious for fungal or other atypicalinfection, hypoattenuating lesions within the spleen which may also represent an atypical fungal infection or progression of lymphoma, RUL consolidation versus mass which is also suspicious for fungal infection versus lymphomatous involvement, increased size of multifocal lytic lesions in the axialand appendicular skeleton, areas of hypoenhancement within the right kidney may most likely be due to pyelonephritis. bMRI, MRI T spine, MRI L spine 04/26 were notable for ([facility] overread): Mild diffuse dural enhancement which is indeterminate, diffuse osseous metastatic disease in the thoracic and lumbar spine with epidural extension of tumor at L4 results in severe canal stenosis, and epidural collections in the lumbar spine (ddx: epidural hematoma, infection/abscess, arachnoid cyst/hygroma, atypical, nonenhancing tumor). Patient denies any recent LP. MRI C-spine WO Con 04/25 images are not available, but per OSH report showed: prominent anterior epidural soft tissue extending from C3 to C5 contributing to moderate spinal canal stenosis. On CT C-spine he was found to have lytic lesions of C3-C5. Ortho Spine was consulted and did not plan surgical intervention. Rad Onc was consulted and planned palliative radiation to cervical spine lesions. Reportedly on 04/27 (records very limited), pt developed fever to 102 and was started on vanc, pip-tazo, and azithro for possible PNA. Patient reports on 04/27 he underwent biopsy of R inguinal lymph node without complication. Currently, Mr. Capone appears comfortable though he notes his pain medications are wearing off sohis neck pain is flaring again. He describes the pain as pinching and sometimes a/w tingling in his L hand. He also has low back pain which shoots down his proximal RLE. He denies weakness, numbness, or urinary changes. He reports constipation with last BM prior to OSH admission on 04/24. He thinks he may have a mild fever and night sweats, denies N/V/D. He continues to report intermittent double vision with photophobia; denies headache or vision loss. I discussed his admission with his mother Blanche Capone ([phone]) who is his POA. Notably, his mother was diagnosed with Hodgkin lymphoma age 51 and is now in remission as well as his maternal grandmother. Oncological History Cancer Staging No matching staging information was found for the patient. Oncology History No history exists. Review of Systems All other systems were reviewed and are negative except for that which is listed in the History of Present Illness. Past Medical History Recurrent Hodgkin lymphoma, HFmrEF, PNA c/b intubation and septic shock, cigar and cigarette smoking, methamphetamine use, and EtOH use disorder (in remission) Surgical History: Inguinal hernia repair No current facility-administered medications on file prior to encounter. No current outpatient medications on file prior to encounter. No Known Allergies Social and Family History Social History Tobacco Use Smoking status: Some Days Types: Cigarettes Smokeless tobacco: Never Tobacco comments: Unwilling to discuss Substance and Sexual Activity Drug use: None Sexual activity: None Alcohol Use: Not on file Family History: mother was diagnosed with Hodgkin lymphoma age 51 and is now in remission as well as his maternal grandmother Objective Vitals Most Recent Vitals: T 36.4 ??C (97.5 ??F), HR 91, BP 115/55, RR 18, SpO2 98 %. 24hr Min/Max: Temp Min: 36.4 ??C (97.5 ??F) Max: 36.4 ??C (97.5 ??F) Pulse Min: 91 Max: 91 BP Min: 115/55 Max: 115/55 Resp Min: 18 Max: 18 SpO2 Min: 98 % Max: 98 % Intake/Output Summary (Last 24 hours) at 04/28/2023 1639 Last data filed at 04/28/2023 1455 Gross per 24 hour Intake -- Output 550 ml Net -550 ml Physical Exam Constitutional: NAD, well developed, poor dentition, chronically-ill appearing, uses cane Eyes: PERRL, EOMI, anicteric ENT: NCAT, oropharynx normal, moist mucus membranes Lungs: Clear to auscultation in all lung alcaraz, unlabored Cardiovascular: RRR, normal S1 and S2, no murmurs, no JVD GI: Soft, non-tender, non-distended, bowel sounds +, no organomegaly Skin: No new rashes, lesions or bruises on visible skin Extremities: 1+ pitting edema BLEs Neurologic: AOx4, 5/5 strength all extremities, no sensory deficits, no midline ttp of spine, all visual alcaraz intact bilaterally, mild dysmetria which pt attributes to diplopia, normal heel-paz bilaterally, no dysdiadochokinesia Psychiatric: Normal affect and mood I have reviewed the patient's vital signs. Lines, Drains, Airways Labs/Diagnostic Review CBC: Recent Labs Lab Units 04/28/23 1252 WBC K/cumm 12.5* HEMOGLOBIN g/dL 8.0* HEMATOCRIT % 25.2* MCV fL 73.0* MCH pg 23.2* MCHC g/dL 31.7* RDW CV % 17.1* RDWSD fL 44.7 MPV fL 8.8* NEUTROS ABS K/cumm 11.8* LYMPHS PCT % 1.0 CMP: Recent Labs Lab Units 04/28/23 1252 SODIUM mmol/L 135 POTASSIUM PLASMA mmol/L 3.6 CO2 mmol/L 29 BUN SERUM mg/dL 16 GLUCOSE mg/dL 134 CREATININE mg/dL 0.96 CALCIUM mg/dL 8.6 CHLORIDE mmol/L 98 ALBUMIN g/dL 2.7* AST Units/L 16 ALT Units/L 10 ALK PHOS Units/L 293* BILIRUBIN TOTAL mg/dL 0.4 TOTAL PROTEIN g/dL 5.9* ANIONGAP mmol/L 8 LDH: INR - Uric Acid:- (Labs above are the most recent result obtained in the last 24 hours unless otherwise specified. For additional labs/trends, see Epic.) I have reviewed the laboratory results. Imaging Review XR Chest 1 View Result Date: 04/28/2023 No priors available for comparison. Right internal jugular port overlies the right cavoatrial junction. Cardiomediastinal silhouette is normal. No pleural effusion or pneumothorax. Right upper lobe airspace opacity which is likely an infectious pneumonia, recommend follow-up in 2-4 weeks to evaluate for resolution. Dictated by: Mert Martinez MD The radiology attending physician has personally reviewed this study, and had reviewed and/or edited this written report and agrees with it. Electronically signed by: Danyel Lombardi M.D. I have independently reviewed and interpreted N/A. Assessment/Plan * Hodgkin lymphoma (HCC) Assessment & Plan Diagnosed with 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 Ashford, [place], [place]. S/p ABVD (2 cycles) with progression then BEACOPP (almost 3 cycles, stopped after cycle 3, day 8 due to neutropenic fever). Lost to follow-up after 11/2022. Now with diffuse progression of disease on CT C/A/P W/ Con. - PET-CT - F/up pathology from R inguinal lymph node biopsy 04/27 at OSH (unclear if this was FNA vs core biopsy) - Per Dr. Sena, plan is for inpatient chemotherapy - Per Dr. Sena, ESR sent, no need for TLS labs - Pain control: Home morphine ER 30 mg BID with oxy 5 mg q4h PRN for breakthrough, continue home adjunctive gabapentin 300 mg TID and duloxetine 60 mg daily Pneumonia Assessment & Plan Reported fever to 102 at OSH 04/27 with chest imaging c/f RUL PNA, possibly fungal. Started on IV vanc+pip-tazo+azithro at OSH (04/27-04/28), per OSH lab cultures were not drawn. On room air, no dyspnea. Will treat as hospital- acquired PNA with a possible post-obstructive component requiring anaerobic coverage. Possibly fungal infection given CT C/A/P 04/26 with nodularities in left lung and spleen as well possibly c/f fungal infection. - Empiric vanc (04/28- ), cefe (04/28- ), flagyl (04/28- ), azithro (04/28-04/30) - Sputum culture, UA pending - Blood cx x2 pending - CXR: Right upper lobe airspace opacity which is likely an infectious pneumonia - Histo, Blasto, Crypto, Coccidio, Aspergillus, mold culture pending - Called ID given question of need for empiric antifungal coverage: not needed at this time Lumbar spine tumor Assessment & Plan L-spine MRI W Con 04/26 with epidural [...] surgery but would like Neuro evaluation - Also consider Rad Onc consult for pain control - Routine neuro checks - Pharmacologic pain regimen described elsewhere Constipation Assessment & Plan Reports last BM at least 4 days ago. - KUB - Daily Miralax, senna-doc Smoking Assessment & Plan - Continue home nicotine patch Cervical spine disease Assessment & Plan OSH MRI C-spine WO Con with prominent anterior epidural soft tissue extending from C3 to C5 contributing to moderate spinal canal stenosis. CT C-spine with lytic lesions of C3-C5. Neuro exam with 5/5 strength BUEs, no sensory deficits. - MRI C-spine W Con - Routine neuro checks - Agree with OSH consideration of Rad Onc involvement for palliative radiation - Pharmacologic pain control described elsewhere Bilateral leg edema Assessment & Plan BLE edema for past week likely 2/2 lymphadenopathy with venous compression. Also TTE during recent hospitalization with EF 45-50%. - Repeat TTE - BLE Duplex Double vision Assessment & Plan With bMRI showing indeterminant mild diffuse dural enhancement. - Visual alcaraz intact, EOMI - Discussed with Oncology who will further discuss utility/safety of LP (pt also has lumbar epidural collections that may make LP unsafe) - Per ID, no need for empiric meningitic coverage - MRI brain with orbits W con - Ophthalmology consulted Code status : Full Code Diet : NPO Diet Adult Diet Regular Supplementary Attestation The total encounter time on this service date was 120 minutes which was spent performing a [id number] encounter and personally completing the provider-level activities documented in the note. This includes time spent prior to the visit and after the visit in direct care of the patient. This time does not include time spent in any separately reportable services. Richmond Ho MD documented in this encounter Procedure Notes * Freddy Parham MD - 04/30/2023 2:08 PM CDTAssociated Order(s): BRONCHOSCOPY [facility] Interventional Pulmonary Patient Name: Crystal Capone Procedure Date: 04/30/2023 2:08 PM Date of : 1990 Admit Type: Inpatient Age: 33 Room: ROOM 1 Gender: Male Note Status: Finalized Procedure: Bronchoscopy LINEAR EBUS-TBNA RADIAL EBUS TBBx BAL Indications: Right upper lobe mass Providers: Freddy Parham M.D. Referring MD: Shasta Sena M.D. Medicines: Midazolam 18 mg IV, Fentanyl 350 mcg IV Complications: No immediate complications Procedure: After obtaining informed consent, the Bronchoscope was introduced through the mouth, via laryngeal mask airway and advanced to the tracheobronchial tree of both lungs. the Bronchoscope was introduced through the mouth, via laryngeal mask airway and advanced to the tracheobronchial tree of both lungs. Estimated Blood Loss: Estimated blood loss was minimal. Findings: 1. AIRWAY INSPECTION --- The trachea is of normal caliber. The misti is sharp. The tracheobronchial tree was examined to at least the first subsegmental level. Bronchial mucosa and anatomy are normal; there are no endobronchial lesions, and no secretions. 2.Radial EBUS The 1.7mm 20Mhz radial EBUS probe was advanced through the working channel of the 4mm bronchoscope and was used to examine the distal airways and lung parenchyma. A lesion was identified in the RUL anterior segment using radial EBUS. The radial probe was positioned within the lesion. Transbronchial needle aspiration times 5 was performed using a Hutchinson 21 gauge needle advanced to the lesion in the RUL anterior segment through the working channel of the 4mm bronchoscope and was sent for routine cytology. The procedure was fluoroscopically guided. A partially obstructing mass/consolidation was found in the anterior segment of the right upper lobe (B3). The mass/consolidation was medium-sized. 3. LINEAR EBUS-TBNA --- The linear array EBUS scope was introduced through the mouth to the right hilum. A lymph node was identified using EBUS at this station. ---Transbronchial needle aspiration using a 22 guage aspiration needle times 4 was performed at the 11R under continuous endobronchial ultrasound guidance. 4. Transbronchial biopsies of a mass were performed in the anterior segment of the right upper lobe using forceps and sent for histopathology examination. The procedure was guided by fluoroscopy. Biopsy of lung tissue was obtained. Five biopsy passes were performed. Five biopsy samples were obtained. 5. The bronchoscope was advanced until wedged at the desired location for bronchoalveolar lavage. BAL was performed in the RUL anterior segment (B3) of the lung and sent for cell count, bacterial culture, viral smears & culture, and fungal & AFB analysis. 100 mL of fluid were instilled. 30 mL were returned. The return was blood-tinged. There were no mucoid plugs in the return fluid. Impression: 1. AIRWAY INSPECTION 2. Radial EBUS 3. LINEAR EBUS-TBNA 4. Transbronchial Biopsies 5. Bronchoalveolar lavage Recommendation: - Await test results. - Return patient to hospital ve[facility]. Attending Participation: I personally performed the entire procedure. Electronically signed by Freddy Parham MD Freddy Parham M.D. 04/30/2023 5:25:24 PM Number of Addenda: 0 Note Initiated On: 04/30/2023 2:08 PM documented in this encounter Consult Notes * Jennifer Dao LCSW - 05/05/2023 10:59 AM CDTAssociated Order(s): IP CONSULT TO SOCIAL WORK MARCO met with patient at bedside and provided transportation resource ([employer] [facility]). Services may be limited due to where patient resides. SW encouraged patient to utilize transportation benefit through [facility] and to keep in contact with outpatient social security specialist if there are issues. Outpatient social security specialist contact information was also provided. MARCO also provided contact information for [facility] extension worker services. Patient reported his mother, who is his power of senior trial attorney, is helping with this. Patient is uncertain he will have a ride home today. MARCO notified JOE Rangel, GRACIELA * Roel Orozco MD - 04/29/2023 1:31 PM CDTAssociated Order(s): CONSULT TO PULMONARY - INTERVENTIONAL INPATIENT INTERVENTIONAL PULMONARY CONSULTATION Date of service: 04/30/2023 Physician requesting consult: Armando Castillo MD Reason for consultation: bronchoscopy with biopsy of RUL mass History of Present Illness Mr. Capone is a 33 y/o man with PMH recurrent Hodgkin lymphoma, HFmrEF, PNA c/b intubation and septic shock (12/2022), cigar and cigarette smoking, methamphetamine use, and EtOH use disorder (in remission) who was transferred from [facility] in [place], [place] to [facility] on 04/28/23 for further management of recurrent Hodgkin lymphoma. Patient was diagnosed with Hodgkin lymphoma stage ALANA in 11/2021; he followed with an oncologist in [place], [place]. He completed 2 cycles of ABVD with subsequent imaging showing progression; then completed 2 cycles of BEACOPP and started cycle 3 in 11/2022. He could not attend appointments after 11/2022 due to lack of insurance coverage for transportation. He was admitted to an OSH in 12/2022 with AHRF and septic shock in setting of RUL PNA and required intubation. CTA chest at that time showed noevidence of SVC thrombus or SVC syndrome. On 04/22/23, patient developed acute-onset neck pain, double vision, and BLE edema. [facility] on 04/24/23. CT CAP 04/26/23 showed progression of lymphomatous disease (compared with CT 12/2022), worsening tree in bud opacities in the left upper and lower lobe suspicious for fungal or other atypical infection, hypoattenuating lesions within the spleen which may also represent an atypical fungal infection or progression of lymphoma, RUL consolidation versus mass which is also suspicious for fungal infection versus lymphomatous involvement, increased size of multifocal lytic lesions in the axial and appendicular skeleton, areas of hypoenhancement within the right kid tai may most likely be due to pyelonephritis. MRI Cspine 04/25/23 reportedly showed prominent anterior epidural soft tissue extending from C3 to C5 contributing to moderate spinal canal stenosis. CT Cspine around the same time (exact date unknown) showed lytic lesions in C3-C5. MRI brain/Tspine/Lspine 04/26/23 showed indeterminate mild diffuse dural enhancement without intracranial masses, diffuse osseous metastatic disease in Tspine and Lspine with epidural extension of tumor at L4 resulting in severe canal stenosis, and Lspine epidural collections. Ortho spine and radiation oncology wereconsulted at OSH for Cspine lesions; plan included avoiding surgical intervention and pursuing palliative radiation. He subsequently became febrile to 102F on 04/27/23 and was started on vanc/Zosyn/azithro for possible postobstructive PNA. He also underwent R inguinal LN biopsy on 04/27/23. Medical oncology, neurology, and ophthalmology have been consulted. MRI Cspine and MRI orbits have been ordered for further evaluation of neck pain and double vision. He is on vanc/cefe/flagyl and was started on dexamethasone 04/29/23. Today, patient continues to endorse neck pain. Denies chest pain, SOB, hemoptysis. He is hemodynamically stable and saturating 97% on room air. No past medical history on file. No past surgical history on file. Social History Tobacco Use Smoking status: Some Days Types: Cigarettes Smokeless tobacco: Never Tobacco comments: Unwilling to discuss Substance and Sexual Activity Drug use: None Sexual activity: None Alcohol Use: Not on file No family history on file. Review of Systems Review of systems per HPI and otherwise all other systems are negative Current Facility-Administered Medications Medication Dose Route Frequency Last Rate Last Admin acetaminophen (TYLENOL) tablet 500 mg 500 mg oral Q6H PRN 500 mg at 04/28/23 1257 Carrier Fluids for Secondary Infusion - 0.9% Sodium Chloride 30 mL intravenous PRN 30 mL at 04/28/23 1833 cefepime (MAXIPIME) 2,000 mg/20 mL in sterile water (premix) 2,000 mg 2,000 mg intravenous Q8H CADY 240 mL/hr at 04/30/23 1012 2,000 mg at 04/30/23 1012 dexAMETHasone (DECADRON) 4 mg/mL injection 4 mg 4 mg intravenous Q6H CADY 4 mg at 04/30/[address] (CYMBALTA) extended release capsule 60 mg 60 mg oral Daily 60 mg at 04/30/23 0826 enoxaparin (LOVENOX) syringe 40 mg 40 mg subcutaneous Daily-2100 40 mg at 04/29/23 204 gabapentin (NEURONTIN) capsule 300 mg 300 mg oral TID 300 mg at 04/30/23 0826 heparin 10 unit/mL flush 20-50 Units 2-5 mL intra-catheter PRN heparin 10 unit/mL flush 50 Units 5 mL intra-catheter BID 50 Units at 04/29/23 1550 magnesium oxide (MAG-OX) tablet 400 mg 400 mg oral Q4H PRN magnesium sulfate 2 g/50 mL in water (premix) 2 g 2 g intravenous Q4H PRN magnesium sulfate 4 g/100 mL in water (premix) 4 g 4 g intravenous Q4H PRN magnesium sulfate 6 g in sodium chloride 0.9% 250 mL IVPB 6 g intravenous Q4H PRN metroNIDAZOLE (FLAGYL) tablet 500 mg 500 mg oral TID 500 mg at 04/30/23 0825 morphine ER (MS CONTIN) extended release tablet 30 mg 30 mg oral BID 30 mg at 04/30/23 0826 nicotine (NICODERM CQ) 14 mg patch 24 hour 1 patch 1 patch transdermal Daily 1 patch at 04/29/23 1822 ondansetron (ZOFRAN) tablet 8 mg 8 mg oral Q8H PRN Or ondansetron (ZOFRAN) injection 8 mg 8 mg intravenous Q8H PRN oxyCODONE (ROXICODONE) tablet 5 mg 5 mg oral Q4H PRN 5 mg at 04/30/23 0826 perflutren protein-a (OPTISON) 3 mL in sodium chloride 0.9% 8 mL syringe 1-8 mL intravenous Once inimaging polyethylene glycol (MIRALAX) packet 17 g 17 g oral Daily 17 g at 04/30/23 0827 potassium chloride ER (KLOR-CON) extended release tablet 40 mEq 40 mEq oral Q2H PRN 40 mEq at 04/29/23 1040 senna-docusate (PERICOLACE) 8.6-50 mg per tablet 1 tablet 1 tablet oral BID 1 tablet at 04/30/23 0826 sodium chloride 0.9% flush 10 mL 10 mL intra-catheter Q12H CADY 10 mL at 04/30/23 0339 sodium chloride 0.9% flush 10-20 mL 10-20 mL intra-catheter PRN sodium chloride 0.9% infusion 30 mL/hr intravenous Continuous PRN sodium phosphate - potassium phosphate (K-PHOS NEUTRAL) tablet 500 mg 500 mg oral Daily PRN vancomycin 1,250 mg/262.5 mL in sodium chloride 0.9% (premix) 1,250 mg 15 mg/kg intravenous Q12H Stopped at 04/30/23 0827 No Known Allergies Physical Examination Vitals: 04/30/23 0753 BP: 107/59 Pulse: 72 Resp: 16 Temp: 36.3 ??C (97.4 ??F) SpO2: 97% Gen: NAD HEENT: NC/AT, MMM CV: RRR, no m/r/g Lungs: CTAB Abdomen: Soft, NTND, BS+ Ext: WWP, no c/c/e MSK: Normal joint ROM Skin: No rashes Neuro: CN II-XII grossly intact, no focal deficits I/O last 3 completed shifts: In: 600 [P.O.:600] Out: 2200 [Urine:2200] I/O this shift: In: - Out: 450 [Urine:450] Data Lab Results Component Value Date WBC 12.6 (H) 04/30/2023 HGB 7.1 (L) 04/30/2023 HCT 23.5 (L) 04/30/2023 MCV 74.8 (L) 04/30/2023 LABPLAT 436 (H) 04/30/2023 Lab Results Component Value Date GLUCOSE 134 04/30/2023 CALCIUM 8.3 (L) 04/30/2023 SODIUM 138 04/30/2023 POTASSIUM 4.0 04/30/2023 CO2 29 04/30/2023 CHLORIDE 103 04/30/2023 BUNSER 15 04/30/2023 CREATININE 0.72 (L) 04/30/2023 Micro: Blood cultures 2/2 04/28/23- NGTD. Mold blood culture 04/28/23- NGTD. Radiology: MRI Cspine w/wo and Tspine wo 04/25/23: diffusely abnormal bone marrow throught Cspine and Tspine; suspected epidural extension of tumor from C3-C5 with mild canal stenosis at C3-C4. MRI brain wo contrast 04/28/23: limited without acute abnormality. PET/CT 04/29/23: extensive lymphomatous disease above and below diaphragm (LAD, osseous lesions, splenic involvement, R gluteal intramuscular deposits), large area of hypermetabolic consolidation in RUL with adjacent nodularity. Assessment/Plan Lesion of right lung Assessment & Plan RUL consolidation/mass seen on CT CAP 04/26/23, which also showed hypoattenuating splenic lesions. Concern for progression of lymphoma vs fungal infection. Other imaging (MRI brain, Cspine) showing osseous metastatic disease and spinal canal stenosis at C3-C5 and L4; no brain metastases. Patient vitaly broad-spectrum antibiotics and steroids but not empiric antifungal coverage at this time as suspicion for malignancy is higher than infection. - Plan for bronchoscopy with radial EBUS and biopsy of lung lesion 04/30/23. - Follow up cultures, pathology, cytology, flow cytometry. Thank you for this interesting consult, Interventional Pulmonology will continue to follow. To reach the Interventional Pulmonology fellow on weekdays from 06:00 to 18:00, please page [phone]. On weekends or after hours (from 18:00 - 06:00), please page the on-call stopperer assembler as idalia Keen. Roel Orozco MD Internal Medicine PGY-3 Cosigned by Freddy Parham MD at 05/03/2023 12:19 PM CDT Associated attestation - Freddy Parham MD - 05/03/2023 12:19 PM CDT I have seen and examined the patient on 04/29/23. I agree with the findings and plan of care as documented in the resident's/fellow's note. and as discussed with the resident/fellow.. * Raeann Rothman MD - 04/28/2023 4:45 PM CDTAssociated Order(s): IP CONSULT TO OPHTHALMOLOGY OPHTHALMOLOGY - INPATIENT NEW CONSULT REPORT Reason for Consult: Diplopia Admit Date: 04/28/2023 10:54 AM Admit Diagnosis: Hodgkin lymphoma (HCC) [C81.90] History of Present Illness Mr. Capone is a 33 yo man with PMH recurrent Hodgkin lymphoma, HFmrEF, PNA c/b intubation and septic shock, cigar and cigarette smoking, methamphetamine use, and EtOH use disorder (in remission) and OHx strabismus (without patching or drops) who presents from [facility] in [place], [place] for further management of recurrent Hodgkin lymphoma. Ophthalmology consulted for binocular diplopia. Diplopia binocualr horizontal, constant since it started 1 week ago. Was watching TV when he noticed it. Diplopia at near and at distance. States he was told he had a lazy eye as a child but never had patching, surgery, or gtts for this. Denies flashes/floaters, eye pain, redness, photophobia. Past ocular surgeries: none Current ocular medications: none Family history of ocular problems: none Review of Systems: Unless noted in HPI all other systems negative. Past Ocular History: see HPI No past medical history on file. No past surgical history on file. No family history on file. Social History Tobacco Use Smoking status: Some Days Types: Cigarettes Smokeless tobacco: Never Tobacco comments: Unwilling to discuss Substance and Sexual Activity Drug use: None Sexual activity: None Alcohol Use: Not on file Current eye medications: see HPI Current Facility-Administered Medications Medication Dose Route Frequency Provider Last Rate Last Admin acetaminophen (TYLENOL) tablet 500 mg 500 mg oral Q6H PRN Richmond Ho MD 500 mg at 04/28/23 1257 azithromycin (ZITHROMAX) tablet 500 mg 500 mg oral Daily Richmond Ho MD 500 mg at 04/28/23 1411 Carrier Fluids for Secondary Infusion - 0.9% Sodium Chloride 30 mL intravenous PRN Richmond Ho MD cefepime (MAXIPIME) 2,000 mg/20 mL in sterile water (premix) 2,000 mg 2,000 mg intravenous Q8H [facility] Richmond Ho MD [START ON 04/29/2023] DULoxetine DR (CYMBALTA) extended release capsule 60 mg 60 mg oral Daily Richmond Ho MD enoxaparin (LOVENOX) syringe 40 mg 40 mg subcutaneous Daily-2100 Richmond Ho MD gabapentin (NEURONTIN) capsule 300 mg 300 mg oral TID Richmond Ho MD heparin 10 unit/mL flush 20-50 Units 2-5 mL intra-catheter PRN Richmond Ho MD heparin 10 unit/mL flush 50 Units 5 mL intra-catheter BID Richmond Ho MD magnesium oxide (MAG-OX) tablet 400 mg 400 mg oral Q4H PRN Richmond Ho MD magnesium sulfate 2 g/50 mL in water (premix) 2 g 2 g intravenous Q4H PRN Richmond Ho MD magnesium sulfate 4 g/100 mL in water (premix) 4 g 4 g intravenous Q4H PRN Richmond Ho MD magnesium sulfate 6 g in sodium chloride 0.9% 250 mL IVPB 6 g intravenous Q4H PRN Humberto Ho MD metroNIDAZOLE (FLAGYL) tablet 500 mg 500 mg oral TID Richmond Ho MD morphine ER (MS CONTIN) extended release tablet 30 mg 30 mg oral BID Richmond Ho MD nicotine (NICODERM CQ) 14 mg patch 24 hour 1 patch 1 patch transdermal Daily Richmond Ho MD ondansetron (ZOFRAN) tablet 8 mg 8 mg oral Q8H PRN Richmond Ho MD Or ondansetron (ZOFRAN) injection 8 mg 8 mg intravenous Q8H PRN Richmond Ho MD oxyCODONE (ROXICODONE) tablet 5 mg 5 mg oral Q4H PRN Richmond Ho MD 5 mg at 04/28/23 1411 polyethylene glycol (MIRALAX) packet 17 g 17 g oral Daily Richmond Ho MD potassium chloride ER (KLOR-CON) extended release tablet 40 mEq 40 mEq oral Q2H PRN Richmond Ho MD senna-docusate (PERICOLACE) 8.6-50 mg per tablet 1 tablet 1 tablet oral BID Richmond Ho MD sodium chloride 0.9% flush 10 mL 10 mL intra-catheter Q12H CADY Richmond Ho MD sodium chloride 0.9% flush 10-20 mL 10-20 mL intra-catheter PRN Richmond Ho, MD sodium chloride 0.9% infusion 30 mL/hr intravenous Continuous PRN Richmond Ho MD sodium phosphate - potassium phosphate (K-PHOS NEUTRAL) tablet 500 mg 500 mg oral Daily PRN Richmond Ho MD [Held by Provider] vancomycin 1,250 mg/262.5 mL in sodium chloride 0.9% (premix) 1,250 mg 15 mg/kg intravenous Q12H Richmond Ho MD Physical Exam: Vitals: 04/28/232057 BP: 124/60 Pulse: 83 Resp: 16 Temp: 36.4 ??C (97.5 ??F) SpO2: 100% Base Eye Exam Visual Acuity (Snellen - Linear) Right Left Near sc 20/20 20/20 Tonometry (Tonopen, 4:49 PM) Right Left Pressure 19 19 Pupils Dark Light Shape React APD Right 4 3 Round Brisk None Left 4 3 Round Brisk None Visual Alcaraz Left Right Full Full Extraocular Movement Right Left Abnormal Full -- 0 -- -0.5 0 -- 0 -- -- 0 -- 0 0 -- 0 -- Esotropia Dilation Both eyes: 1.0% Mydriacyl, 2.5% Phenylephrine @ 4:50 PM Slit Lamp and Fundus Exam External Exam Right Left External Normal Normal Slit Lamp Exam Right Left Lids/Lashes Normal Normal Conjunctiva/Sclera White and quiet White and quiet Cornea Clear Clear Anterior Chamber Deep and quiet Deep and quiet Iris Round and reactive Round and reactive Lens Clear Clear Anterior Vitreous Normal Normal Fundus Exam Right Left Disc Normal Normal Macula Normal Normal Vessels Normal Normal Periphery Normal Normal ASSESSMENT/PLAN AND RECOMMENDATIONS: #Diplopia, binocular Mr. Capone is a 33 yo man with PMH recurrent Hodgkin lymphoma, and OHx strabismus (without patching or drops) who presents for management of recurrent Hodgkin lymphoma. Ophthalmology consulted for 1 week history of binocular diplopia. Exam overall reassuring with good visual acuity, no APD. Slight abduction deficit OD, and esotropiaon exam, otherwise anterior and DFE unremarkable. Given history of strabismus as child, most likelydecompensated esotropia. Recommend imaging to rule out other potential causes of binocular diplopia Recommendations: --MRI Brain & Orbits WWO --We will continue to follow If patient experiences any new vision changes, new flashes/floaters, eye pain, diplopia, or any other concerning ocular changes please page on-call ophthalmology resident. Raeann Rothman MD 04/28/2023 9:43 PM Ophthalmology Resident Please page the ophthalmology resident on-call via SmartWeb with any questions. This consult is NOT complete without attending attestation and/or cosign. Please note that bedside hospital exams have several limitations that can affect reliability and make it difficult to discern both short-term and long-term visual outcomes including limitations of bedside equipment, inability to control lighting conditions, varying participation, changes in clinical status, and lack of ancillary tests that are available in a clinic setting. Cosigned by Shailesh Hollis MD at 05/03/2023 8:04 AM CDT Associated attestation - Shailesh Hollis MD - 05/03/2023 8:04 AM CDT I have seen, examined, and discussed the patient with the resident/fellow. I agree with the assessment and plan below, with the following changes/additions: Patient with symptoms of diplopia and blurred vision. Preserved afferent function with 20/20 vision, some of subjective blur may be due to image ghosting from diplopia. Difficult to have patient maintain fixation through exam on distance target but appears to have small esophoria. Suspect decompensated phoria as etiology of complaints. MRI orbits w/ artifact but no identified other abnormality. Can symptomatically patch and CTM, if significant change in symptoms or new exam limitation please notify. Shailesh Hollis MD 05/03/2023 7:57 AM * Basilia Penaloza MD - 04/28/2023 4:23 PM CDTAssociated Order(s): IP CONSULT TO NEUROLOGY Images from the original note were not included. Neurology Consult Note Visit date: 04/28/2023 Patient: Crystal Capone Neurology Initial Consult Note Requesting Provider or Service: Shasta Sena MD, Oncology Reason for Consult: difficulty ambulation, double vision Subjective HISTORY OF PRESENT ILLNESS Crystal Capone is a 33 y.o. male with a history of Hodgkin lymphoma, HFmrEF, PNA c/b intubation andseptic shock, cigar and cigarette smoking, methamphetamine use, and EtOH use disorder (in remission) who presented to the hospital for progression of Hogdkin's lymphoma, CT C/A/P at OSH noted progression of lymphomatous disease in lungs, spleen, axial/appendicular skeleton. Neurology was consulted for change in gait over the past week. Per patient, over the last week he has noticed his steps getting slower and smaller. He attributes this change in gait primarily to increased pain with walking. He has a history of sciatica described as intermittent shooting pain down his left leg which has caused pain with walking in the past. He intermittently needs to use a cane due to this pain, but has had to use it more consistently over the past week due to increased falls from legs giving out . He has also noticed increased swelling to bilateral lower extremities. Pt also has had increasing blurry vision over the past week which he first noticed while watching TV. He does not use glasses or contacts at baseline. He also has noticed intermittent double vision with bilateral vision, has not noticed it with a particular direction of gaze. Pt was diagnosed with Hodgkin lymphoma stage ALANA in 11/2021. S/p ABVD 2 cycles (Doxorubicin, bleomycin, vinblastine, dacarbazine) then BEACOPP (Bleomycin, etoposide, doxorubicin, cyclophosphamide, vincristine, procarbazine, prednisone) almost three cycles, last dose on December 02, 2022. Brain MRI with mild diffuse dural enhancement. MRI T/L spine with diffuse osseous metastatic disease with epidural extension of tumor at L4 resulting in severe canal stenosis, and epidural collections in the lumbar spine. C-spine MRI on 04/25 with prominent anterior epidural soft tissue,moderate spinal canal stenosis C3-C5, lytic lesions of C3-C5. Rad onc with plan for palliative radiation to cervical spine lesions. PAST MEDICAL & SURGICAL HISTORY No past medical history on file. No past surgical history on file. FAMILY HX: No family history on file. SOCIAL HX: Occasional cigarette smoking, prior methamphetamine use OUTPATIENT MEDICATIONS HOME MEDICATIONS : Not on File INPATIENT MEDICATIONS Scheduled Medications: Scheduled Medications Medication Dose Route Frequency azithromycin (ZITHROMAX) tablet 500 mg 500 mg oral Daily cefepime (MAXIPIME) 2,000 mg/20 mL in sterile water (premix) 2,000 mg 2,000 mg intravenous Q8H CADY [START ON 04/29/2023] DULoxetine DR (CYMBALTA) extended release capsule 60 mg 60 mg oral Daily enoxaparin (LOVENOX) syringe 40 mg 40 mg subcutaneous Daily-2100 gabapentin (NEURONTIN) capsule 300 mg 300 mg oral TID heparin 10 unit/mL flush 50 Units 5 mL intra-catheter BID metroNIDAZOLE (FLAGYL) tablet 500 mg 500 mg oral TID morphine ER (MS CONTIN) extended release tablet 30 mg 30 mg oral BID nicotine (NICODERM CQ) 14 mg patch 24 hour 1 patch 1 patch transdermal Daily polyethylene glycol (MIRALAX) packet 17 g 17 g oral Daily senna-docusate (PERICOLACE) 8.6-50 mg per tablet 1 tablet 1 tablet oral BID sodium chloride 0.9% flush 10 mL 10 mL intra-catheter Q12H CADY [Held by Provider] vancomycin 1,250 mg/262.5 mL in sodium chloride 0.9% (premix) 1,250 mg 15 mg/kg intravenous Q12H Continuous Medications: Current Facility-Administered Medications Medication Dose Route Frequency Last Admin sodium chloride 0.9% 30 mL/hr intravenous Continuous PRN PRN Medications: acetaminophen, 500 mg, 500 mg at 04/28/23 1257 sodium chloride 0.9%, 30 mL heparin flush (porcine), 2-5 mL magnesium oxide, 400 mg magnesium sulfate, 2 g magnesium sulfate, 4 g magnesium sulfate, 6 g ondansetron, 8 mg OR ondansetron, 8 mg oxyCODONE, 5 mg, 5 mg at 04/28/23 1411 potassium chloride ER, 40 mEq sodium chloride 0.9%, 10-20 mL sodium chloride 0.9%, 30 mL/hr sodium phosphate - potassium phosphate, 500 mg REVIEW OF SYSTEMS A complete review of symptoms was performed including constitutional symptoms, cardiovascular, respiratory, gastrointestinal, genitourinary, musculoskeletal, neurological, psychiatric, endocrine, immunologic, integumentary, hematological, eyes, ears, nose, mouth and throat. All symptoms negative except as per HPI. Objective PHYSICAL EXAM Vitals: 24 hr Min/Max: Temp Min: 36.3 ??C (97.3 ??F) Max: 36.4 ??C (97.5 ??F) Pulse Min: 89 Max: 91 BP Min: 115/55 Max: 120/58 Resp Min: 16 Max: 18 SpO2 Min: 98 % Max: 99 % Most Recent: Vitals: 04/28/23 1635 BP: 120/58 Pulse: 89 Resp: 16 Temp: 36.3 ??C (97.3 ??F) SpO2: 99% Height: 167.6 cm (5' 6 ) Weight: 85.3 kg (188 lb) BMI (Calculated): 30.4 GENERAL EXAMINATION CONSTITUTIONAL: no acute distress, resting comfortably HENT: normocephalic, atraumatic, mucous membranes moist EYES: anicteric sclera PULM: no increased work of breathing CV/EXT: Extremities are warm and well perfused; non-pitting edema present to BLE SKIN: dry, no suspicious rashes or lesions noted PSYCH: calm and cooperative, eye contact appropriate for medical condition NEUROLOGIC EXAM: Mental Status:The patient is alert and oriented to person, place, time and reason for visit. Attention is intact. Able to recall three words after 5 minutes. Difficulty with serial 7s as well as naming months backwards (93, 82; confused January/July). Language: The patient has fluent speech and follows commands. Cranial Nerves II-XII: Visual alcaraz are full to finger count. Pupils dilated per optho. Extraocular movements are full and without nystagmus, no pain with eye movement, no double vision. L eyelid intermittently closes independent of right. V1-3 is intact to light touch bilaterally. Face is symmetric to eye closing and smile, hearing is intact to voice. Palate is up-going bilaterally. 5/5 strength to head turn bilaterally. There is no dysarthria. Motor: 4/5 strength to R hip flexor. 5/5 strength to L hip flexor, bilateral deltoids, biceps, triceps, finger spread, thumb movement, knee flexion, knee extension, foot plantar/dorsiflexion. Muscle tone and bulk are normal. There is no pronator drift. Finger tapping is normal bilaterally. Reflexes: Reflexes are 2+ at the biceps, brachioradialis and patellae. Plantar reflex is down-goingbilaterally. No clonus. Sensation: Light touch, cold sensation, pain sensation, vibration is intact in all four extremities. Proprioception intact to bilateral big toes. Coordination: Finger to nose is normal bilaterally. Heel to paz normal bilaterally. Negative romberg. Ambulation: Antalgic, slowed gait with increased time spent on right leg. Pt is using cane during exam. Lab/Radiology/Diagnostic Review: Laboratory Data Recent Labs Lab Units 04/28/23 1252 WBC K/cumm 12.5* HEMOGLOBIN g/dL 8.0* HEMATOCRIT % 25.2* PLATELETS K/cumm 465* Recent Labs Lab Units 04/28/23 1252 SODIUM mmol/L 135 POTASSIUM PLASMA mmol/L 3.6 CHLORIDE mmol/L 98 CO2 mmol/L 29 BUN SERUM mg/dL 16 CREATININE mg/dL 0.96 GLUCOSE mg/dL 134 CALCIUM mg/dL 8.6 Recent Labs Lab Units 04/28/23 1252 ALK PHOS Units/L 293* BILIRUBIN TOTAL mg/dL 0.4 TOTAL PROTEIN g/dL 5.9* ALT Units/L 10 AST Units/L 16 No results found for: HGBA1C , No results found for: LDLCALC Neuro Diagnostics: Brain/T/L Spine MRI (from other chart waiting for merge) IMPRESSION: 1. Mild diffuse dural enhancement, which [...] with and without contrast for further evaluation. Assessment /Plan ASSESSMENT AND PLAN Crystal Capone is a 33 y.o. male with a history of Hodgkin lymphoma, HFmrEF, PNA c/b intubation andseptic shock, cigar and cigarette smoking, methamphetamine use, and EtOH use disorder (in remission) who presented to the hospital for progression of Hogdkin's lymphoma, initiation of chemotherapy. Neurology was consulted for change in ambulation over the past week, blurry vision, dural enhancements noted on MRI. With regard to change in ambulation, the patient primarily reports increased pain with ambulation, on note review he did mention some episodes of his legs giving out . Exam 4/5 strength to right iliopsoas. Sensation, and [id number] testing were normal. Gait appeared antalgic. Given finding on MRI of epidural extension of tumor at L4 resulting in severe canal stenosis, his weakness and change in gait could be related tocord compression. It also could be progression of issues with chronic low back pain/sciatica. If primary would not like to pursue biopsy of this lesion, we think it would be reasonable to follow progression with repeat MRIs. For his blurry vision, he reports intermittent blurred vision as well as binocular diplopia. On ourexam, his EOM were full with no diplopia on exam. We would defer to ophthalmology for further workup of vision changes. Could consider MRI orbits in the future if workup is unrevealing. For the dural enhancement, it is reasonable to pursue a generalized work up for meningeal enhancement as below. Per limited literature review, it seems there are limited cases of dural involvement ofhodgkin's lymphoma; we would defer to oncology to determine whether they think it is related to hiscancer history. Recommendations: # Change in Gait MRI with evidence of progression of lumbar lesion, new cord compression. Consider biopsy to better characterize this lesion. If primary would not like to pursue biopsy, would be reasonable to follow up the progression of these lesions with repeat MRI # Blurry Vision No signs of cranial nerve lesion on our exam Agree with ophthalmology consult for further work up Can consider MRI orbits if optho workup is unrevealing # Dural Enhancement Workup for meningeal enhancement: RAYA, JAVIER, ANCA, ESR, CRP, RF/CCP, RPR , HIV, cryptococcal antigen. Can consider T-spot given lung nodules. LP would be reasonable to evaluate meningeal enhancement. Please consider pursuing this when safe regarding epidural fluid collections. Would defer to oncology of whether new masses and dural enhancement are related to HL Please re-engage neuro if you are able to get an LP in the future or if any of the above results are abnormal. Thank you for this consult. Please do not hesitate to contact us with any questions or concerns. Recommendations are preliminary until staffed. This consult will be staffed by the attending physician on 04/29 in the morning. Neurology consults will plan to see the patient again on 04/29 . If you have any questions or need re-evaluation in the interim, please contact neurology consults at [phone] (senior) and specify that this consult was staffed with Consult Team B. Basilia Penaloza Neurology Resident, PGY-1 Cosigned by Sean Galeas MD at 04/29/2023 4:51 PM CDT Associated attestation - Sean Galeas MD - 04/29/2023 4:51 PM CDT I have seen and examined the patient on 04/29/23. I agree with the findings and plan of care as documented in the resident's/fellow's note.. #Binocular Diplopa/Blurry vision -Agree with MRI Orbits WWO to evaluate for structural cause of binocular diplopia. -Consider eye patch for symptomatic relief. #Abnormal Gait Gait is largely antalgic and not clearly limited by neurologic dysfunction. He does have some asymmetric hyperreflexia that may be related to lesions apparently compressing spinal cord/nerve roots, which most likely represent tumor recurrence. -Lymphoma treatment per primary. -If there is a question of intrathecal lymphomatous involvement, could consider lumbar puncture with flow cytometry and cytology -Would consider repeat MRI Spine in several months after treatment to evaluate for improvement in these lesions. Sooner if worsening leg strength, sensation, or gait. PET with extensive lymphoma above and below diaphragm, as well as possible pneumonia. Neurology consults will continue to follow. We will see him again after MRI Orbits completed. * Yvrose Bills NP - 04/28/2023 4:07 PM CDTAssociated Order(s): IP CONSULT [facility] Medical Oncology Consult/ Established Patient Date/Time of Service: 04/28/2023 Requesting Service: Hospitalist Reason for Consult: Hodgkin's Lymphoma Requesting provider: Dr. Ho Subjective HPI Mr. [place] is a 33 y.o.male with history of refractory HL, most recently treated in November with BEACOPP, presents with c/f relapsed disease. Per chart review, patient was diagnosed with Hodgkins lymphoma in 11/2021 after presenting with worsening abdominal pain. CT showed extensive adenopathy. Follow up PET/CT on 11/26 showed marked hypermetabolic lymphadenopathy above and below the diaphragm. LN biopsy confirmed classical Hodgkins lymphoma. He was originally treated with ABVD x2 cycles, but restaging scans revealed a mixed response. Hewas then switched to BEACOPP regimen x 3 cycles (Completed up to C3D8) in November of 2022. Treatment complicated by neutropenia and PNA/Sepsis, leading to hospitalization where he required brief intubation and pressor support. His most recent clinic visit was on 02/26/23. Now presents from OSH after being admitted for worsening back pain. He underwent multiple imaging series. CT showed progression of lymphomatous diseased evidenced by increased multifocal adenopathy above and below the diaphragm with predominant involvement in the retroperitoneum and bilateral inguinal regions. Worsening tree in bud opacities in the left upper and lower lobe suspicious for fungal or other atypical infection. Additional small left pleural effusion. Interval development of hypoattenuating lesions within the spleen which may also represent an atypical fungal infection or progression of lymphoma. Right upper lobe lung consolidation versus mass which is also suspicious for fungalinfection versus lymphomatous involvement. Increased size of multifocal lytic lesions in the axial and appendicular skeleton notably involving the femoral necks which puts the patient at risk for pathologic fracture. Unchanged pathologic compression fractures of T7 and L4. Areas of hypoenhancementwithin the right kidney may most likely due to pyelonephritis although infarcts can have a similar appearance. Compression of the inferior vena cava by retroperitoneal lymphadenopathy, although the IVC remains patent. bMRI showed mild diffuse dural enhancement, which is indeterminate and can be seen in the setting of prior procedure such as lumbar puncture. Although intracranial involvement with d isease cannot be excluded. Thoracic and lumbar MRIs showed diffuse osseous metastatic disease in the thoracic and lumbar spine, with unchanged pathologic fractures of T7 and L4 with new pathologic fracture of T11. Epidural extension of tumor at L4 results in severe canal stenosis. Epidural collections in the lumbar spine, which may represent epidural hematoma with signal characteristics of acute hematoma. Ortho Spine was consulted and did not plan surgical intervention. Rad Onc was consulted and planned palliative radiation to cervical spine lesions, but had not started. He underwent a R inguinal LN biopsy on 04/27, and was subsequently planned for transfer to [facility] for further oncologic care. Of note, patient was febrile on 04/27 to 102F prior to transfer; UA was negative but no blood cultures were obtained. He was initiated on IV abx and transferred over for further care. On arrival he was afebrile, HR 91, RR 19, BP 115/55, SpO2 98% on RA. Labs notable for Albumin 2.7, Alk phos 293, ESR 83. CXR showed no pleural effusion or pneumothorax, right upper lobe airspace opacity which is likely an infectious pneumonia. Peripheral blood cultures pending. ID has been consulted. On assessment patient reports new onset symptoms of worsening back pain and blurred vision x 1 week. He reports abdominal swelling, BLE swelling and weight gain over 20lbs in the last month. He has had intermittent falls due to his legs giving out , and now requires a cane with ambulation. He has not had a BM x 1 week, though reports good PO intake. He denies any chills or fevers prior to the one at the OSH. He denies SOB, chest pain, n/v/d, urinary issues, numbness or tingling, or any other concerns. He currently smokes tobacco and marijuana, and occasionally uses meth. 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 He lives with his Aunt. Of note, he states his mother, sister and maternal grandmother have all been diagnosed with Hodgkin's Lymphoma. PAST MEDICAL/SURGICAL HISTORY No past medical history on file. No past surgical history on file. SOCIAL HISTORY No family history on file. Social History Tobacco Use Smoking status: Some Days Types: Cigarettes Smokeless tobacco: Never Tobacco comments: Substance and Sexual Activity Drug use: Meth Sexual activity: None Alcohol Use: Not on file ALLERGIES No Known Allergies MEDICATIONS No medications prior to admission. Review of Systems: ROS negative unless otherwise noted per HPI Objective Vitals: BP 115/55 (BP Location: Right arm, Patient Position: HOB 30 degrees) Pulse 91 Temp 36.4 ??C (97.5 ??F) (Oral) Resp 18 Ht 167.6 cm (5' 6 ) Wt 85.3 kg (188 lb) SpO2 98% BMI 30.34 kg/m?? 24hr Min/Max: Temp Min: 36.4 ??C (97.5 ??F) Max: 36.4 ??C (97.5 ??F) Pulse Min: 91 Max: 91 BP Min: 115/55 Max: 115/55 Resp Min: 18 Max: 18 SpO2 Min: 98 % Max: 98 % Most Recent : Vitals: 04/28/23 1120 BP: BP Location: Patient Position: Pulse: Resp: Temp: TempSrc: SpO2: Weight: 85.3 kg (188 lb) No intake/output data recorded. I/O this shift: In: - Out: 550 [Urine:550] Physical Examination General Appearance: Alert, cooperative, no distress Neck: Supple, symmetrical, no tenderness/mass/nodules Lungs: respirations unlabored Abdomen: Soft, non-tender, distended Extremities: PAINTING well, atraumatic, no cyanosis, R>L BLE, strength intact Skin: Skin color, texture, turgor normal, no rashes or lesions Neurologic: A&Ox4. Gait not observed Psych: mood is euthymic and conversation is appropriate Laboratory Interpretation CBC: Recent Labs Lab Units 04/28/23 1252 WBC K/cumm 12.5* HEMOGLOBIN g/dL 8.0* HEMATOCRIT % 25.2* MCV fL 73.0* NEUTROS ABS K/cumm 11.8* Lab Results Component Value Date GLUCOSE 134 04/28/2023 CALCIUM 8.6 04/28/2023 SODIUM 135 04/28/2023 POTASSIUM 3.6 04/28/2023 CO2 29 04/28/2023 CHLORIDE 98 04/28/2023 BUNSER 16 04/28/2023 CREATININE 0.96 04/28/2023 CMP: Recent Labs Lab Units 04/28/23 1252 SODIUM mmol/L 135 POTASSIUM PLASMA mmol/L 3.6 CO2 mmol/L 29 BUN SERUM mg/dL 16 GLUCOSE mg/dL 134 CREATININE mg/dL 0.96 CALCIUM mg/dL 8.6 CHLORIDE mmol/L 98 ALBUMIN g/dL 2.7* AST Units/L 16 ALT Units/L 10 ALK PHOS Units/L 293* BILIRUBIN TOTAL mg/dL 0.4 TOTAL PROTEIN g/dL 5.9* ANIONGAP mmol/L 8 PT: PTT: O Positive Imaging Interpretation CT C/A/P: Impression Progression of lymphomatous diseased evidenced by increased [...] retroperitoneal lymphadenopathy, although the IVC remains patent. BRAIN THORACIC AND LUMBAR SPINE MRI MPRESSION: 1. Mild diffuse dural enhancement, which is [...] with and without contrast for further evaluation. Assessment/Plan #Refractory Hodgkin's lymphoma Dx in 11/2021, originally treated with ABVD followed by BEACOPP; only received up to C3D8 in 11/2022 - Had 12/2022 admission for pna/sepsis/neutropenia. Required pressors and intubation, no further treatment after hospitalization - Now presents from OSH with recurrent/worsening disease - CT w/ progression of lymphomatous diseased evidenced by increased multifocal adenopathy above andbelow the diaphragm with predominant involvement in the retroperitoneum and bilateral inguinal regions, increased size of multifocal lytic lesions in the axial and appendicular skeleton notably involving the femoral necks which puts the patient at risk for pathologic fracture. Unchanged pathologic compression fractures of T7 and L4. - MRI brain/thoracic/lumbar: diffuse dural enhancement, diffuse osseous metastatic disease in the thoracic and lumbar spine as detailed above, with unchanged pathologic fractures of T7 and L4 with new pathologic fracture of T11. Epidural extension of tumor at L4 results in severe canal stenosis. - Inguinal LN biopsy 04/27 at OSH; awaiting pathology - Outpatient team will obtain path from original biopsy - Needs Urgent PET, ordered 04/28 - Plan for inpt chemo once further work up has been completed - Will defer dex at this time in hopes that PET can be obtained 04/29. Plan to start at 10mg - Staffed with Dr. Sena 04/28; previously followed at OSH with Dr. Ashford #Blurred vision Reports blurred vision x 1 week. Covering eye on exam, made worse when looking forward - Please obtain Orbital MRI - Optho consult #Ataxia Ongoing weakness with multiple falls over the last few weeks, likely related to spinal cord involvement. No other emergeny signs of cord compression - Recommend Neurology consult - PT/OT #Fever Febrile at OSH, though no reports of blood cultures obtained. Was started on abx prior to transfer.No clear focal symptoms at this time - Worsening tree in bud opacities in the left upper and lower lobe suspicious for fungal or other atypical infection. - Repeat peripheral and blood cultures, UA, CXR - ID has been consulted - Abx per primary: Azithromycin/Cefe (04/28- ) #Anasarca #BLE Worsening abd distention as well as BLE swelling over the last week, risen to scrotal on admission - Most recent echo w/ EF to be 45 to 50% on echocardiogram 12/16/2022 - Consider repeat TTE - Recommend BLE dopplers #Hypercalcemia -Calcium at outside facility elevated at 11.7, with albumin 1.8, CTM This patient was staffed with Dr. Sena -Medical Oncologist Yvrose Bills RN, MSN, [employer]- Inpatient Nurse Practitioner for the Division of Medical Oncology Work cell: [phone] Cosigned by Shatsa Sena MD at 05/01/2023 7:36 PM CDT * Gatito Dumont MD - 04/28/2023 2:18 PM CDTAssociated Order(s): CONSULT TO TRANSPLANT INFECTIOUS DISEASE Infectious Disease Initial Consult Note Infectious Disease Team: Transplant Contact Information: Please see [facility] Treatment Team listing for up-to-date contact information. Requesting Physician: Shasta Sena MD Reason for Consult: Diagnostic and treatment recommendations, as well as assistance with follow up care. Subjective Chief Complaint: 33yo with Hodgkin lymphoma with fever 102 this AM per OSH report with [facility] overread of OSH CT images c/f fungal infection, ?need for empiric antifungal coverage? HPI: *pt with alternate 33 yo man with PMH recurrent Hodgkin lymphoma (dx s/p 2 cycles ABVD then 3 cycles BEACOPP (last 11/24), HFmrEF, cigar and cigarette smoking, methamphetamine use, and EtOH use disorder (in remission) who presents from [facility] in [place], [place] for further management of recurrent Hodgkin lymphoma. - developed new knee pain, neck pain, low back pain, lower extremity swelling, and double vision starting ~1 week ago - currently he denies SOB, cough, fevers, chills, nausea, vomiting, palpitations, headache, neck stiffness, photophobia - he had a headache and left arm tingling prior to transfer which has now resolved - Presented to OSH 04/24 with pain, leg swelling and double vision. 04/24- (prior to transfer to [facility]) CT CAP notable for progression of lymphomatous disease including multifocal LAD above and belowdiaphragm, tree-in-bud DEVYN, RUL consolidation vs mass, hypoattenuating splenic lesions, hypoenhancement of right kidney - MR brain and spine with diffuse osseous metastatic disease, epidural fluid collections in the lumbar spine, and pathologic fractures - underwent inguinal LN biopsy 04/27 - pt febrile on 04/27 (prior to transfer) started on vanc, zosyn, azithromycin No past medical history on file. No past surgical history on file. HOME MEDICATIONS : Not on File Current Facility-Administered Medications Ordered in [facility] Medication Dose Route Frequency Provider Last Rate Last Admin acetaminophen (TYLENOL) tablet 500 mg 500 mg oral Q6H PRN Richmond Ho MD 500 mg at 04/28/23 1257 azithromycin (ZITHROMAX) tablet 500 mg 500 mg oral Daily Richmond Ho MD 500 mg at 04/28/23 1411 Carrier Fluids for Secondary Infusion - 0.9% Sodium Chloride 30 mL intravenous PRN Richmond Ho MD cefepime (MAXIPIME) 2,000 mg/20 mL in sterile water (premix) 2,000 mg 2,000 mg intravenous Q8H [facility] Richmond Ho MD [START ON 04/29/2023] DULoxetine DR (CYMBALTA) extended release capsule 60 mg 60 mg oral Daily Richmond Ho MD gabapentin (NEURONTIN) capsule 300 mg 300 mg oral TID Richmond Ho MD magnesium sulfate 4 g/100 mL in water (premix) 4 g 4 g intravenous Q4H PRN Richmond Ho MD magnesium sulfate 6 g in sodium chloride 0.9% 250 mL IVPB 6 g intravenous Q4H PRN Humberto Ho MD morphine ER (MS CONTIN) extended release tablet 30 mg 30 mg oral BID Richmond Ho MD ondansetron (ZOFRAN) tablet 8 mg 8 mg oral Q8H PRN Richmond Ho MD Or ondansetron (ZOFRAN) injection 8 mg 8 mg intravenous Q8H PRN Richmond Ho MD oxyCODONE (ROXICODONE) tablet 5 mg 5 mg oral Q4H PRN Richmond Ho MD 5 mg at 04/28/23 1411 polyethylene glycol (MIRALAX) packet 17 g 17 g oral Daily PRN Richmond Ho MD potassium chloride ER (KLOR-CON) extended release tablet 40 mEq 40 mEq oral Q2H PRN Richmond Ho MD sodium chloride 0.9% flush 0.5-20 mL 0.5-20 mL intra-catheter Q8H [facility] Richmond Ho MD sodium chloride 0.9% flush 0.5-20 mL 0.5-20 mL intra-catheter PRN Richmond Ho MD sodium chloride 0.9% infusion 30 mL/hr intravenous Continuous PRN Richmond Ho MD sodium phosphate - potassium phosphate (K-PHOS NEUTRAL) tablet 500 mg 500 mg oral Daily PRN Richmond Ho MD vancomycin 1,250 mg/262.5 mL in sodium chloride 0.9% (premix) 1,250 mg 15 mg/kg intravenous Q12H Richmond Ho MD No current [facility]-ordered outpatient medications on file. Anti-infectives (From admission, onward) Start Dose/Rate Route Frequency Ordered Stop 04/28/23 1445 azithromycin (ZITHROMAX) tablet 500 mg 500 mg oral Daily 04/28/23 1404 05/01/23 0859 04/28/23 1415 cefepime (MAXIPIME) 2,000 mg/20 mL in sterile water (premix) 2,000 mg 2,000 mg 240 mL/hr over 5 Minutes intravenous Every 8 hours scheduled 04/28/23 1343 04/28/23 1415 vancomycin 1,250 mg/262.5 mL in sodium chloride 0.9% (premix) 1,250 mg 15 mg/kg ?? 85.3 kg over 60 Minutes intravenous Every 12 hours 04/28/23 1343 Active Lines/Ports/Devices: Patient Allergies: No Known Allergies Social History Social History Narrative Not on file reports that he has been smoking cigarettes. He has never used smokeless tobacco. Family history reviewed and non-contributory No family history on file. Review of Systems: Review of Systems Constitutional: Negative for chills, fever and unexpected weight change. Respiratory: Negative for cough and shortness of breath. Cardiovascular: Negative for chest pain. Gastrointestinal: Negative for diarrhea, nausea and vomiting. Genitourinary: Negative for dysuria. Musculoskeletal: Positive for arthralgias, back pain and neck pain. Skin: Negative for rash. Allergic/Immunologic: Negative for immunocompromised state. Neurological: Negative for weakness. Hematological: Positive for adenopathy. Psychiatric/Behavioral: Negative for confusion. All other systems reviewed and are negative. Objective Vitals: 24hr Min/Max: Temp Min: 36.4 ??C (97.5 ??F) Max: 36.4 ??C (97.5 ??F) Pulse Min: 91 Max: 91 BP Min: 115/55 Max: 115/55 Resp Min: 18 Max: 18 SpO2 Min: 98 % Max: 98 % Most Recent : Vitals: 04/28/23 1115 BP: 115/55 Pulse: 91 Resp: 18 Temp: 36.4 ??C (97.5 ??F) SpO2: 98% Vitals: 04/28/23 1115 04/28/23 1120 BP: 115/55 BP Location: Right arm Patient Position: HOB 30 degrees Pulse: 91 Resp: 18 Temp: 36.4 ??C (97.5 ??F) TempSrc: Oral SpO2: 98% Weight: 85.3 kg (188 lb) Height: 167.6 cm (5' 6 ) No intake/output data recorded. Physical Exam: Gen: in no acute distress, cooperative Eyes: no scleral icterus CV: RRR, no murmurs/rubs. 2+ radial pulses b/l Resp: soft crackles right middle lung field, no wheezes, rhonchi, no accessory muscle use Abd: soft, nondistended, nontender, no masses Neuro: CN II-XII intact MSK: Moving arms and legs b/l. No neck tenderness to palpation. Lab/Radiology/Diagnostic Review: I reviewed the following laboratory and imaging result(s). Micro: No results found for: MICROBIOLOGY Urinalysis:No results for input(s): COLORU , CLARITYU , SPECGRAVU , PHURINE , PROTURQL , GLUCOSEUR , KETONESU , BILIRUBINU , BLOODUR , UROBILINOGUR , NITRITEU , LEUKESTUR , WBCUR in thelast 8736 hours. Hematology/Chemistry: CBC: Lab Results Component Value Date WBC 12.5 (H) 04/28/2023 HGB 8.0 (L) 04/28/2023 HCT 25.2 (L) 04/28/2023 LABPLAT 465 (H) 04/28/2023 NEUTOPHILPCT 93.9 04/28/2023 LYMPHOPCT 1.0 04/28/2023 MONOPCT 3.6 04/28/2023 EOSPCT 0.0 04/28/2023 CMP: Lab Results Component Value Date SODIUM 135 04/28/2023 POTASSIUM 3.6 04/28/2023 CHLORIDE 98 04/28/2023 CO2 29 04/28/2023 ANIONGAP 8 04/28/2023 GLUCOSE 134 04/28/2023 BUNSER 16 04/28/2023 CREATININE 0.96 04/28/2023 CALCIUM 8.6 04/28/2023 ALBUMIN 2.7 (L) 04/28/2023 ALKPHOS 293 (H) 04/28/2023 ALT 10 04/28/2023 AST 16 04/28/2023 BILITOT 0.4 04/28/2023 Creatinine:Estimated Creatinine Clearance: 97.8 mL/min (by Cockcroft-Gault based on SCr of 0.96 mg/dL). Resulted in the Past 12 Months 04/28/23 1252 CREATININE 0.96 Inflammatory Markers: Resulted in the Past 12 Months 04/28/23 1252 SEDRATE 83* Screening Results RPR:No results found for: LABRPR GC: No results found for: CTRACHOMATIS , NGONORRHOEAE Hepatitis Serologies: No results found for: HEPAIGG , HEPAIGM , HEPBSAG , HEPBSAB , HEPBCAB , HEPCAB Virologic Testing: HIV Screen:No results found for: [id number] CD4:No results found for: CD4ABS , CD4PCT Common Virologic Results: No results found for: [id number] , CD4ABS , CD4PCT , NUCLEOSRT , NONNUCRTMUT , PROTEASEMUT , INTEGRASEMUT , PPD , TOXOIGG Diagnostics: EKG:No results found for: VR , AR , PRIMSEC , QRSIMSEC , QTIMSEC , QT , PA , RA , TA , DIAG Echo: Imaging: No results found. No results found. Assessment/Plan 33 yo man with PMH recurrent Hodgkin lymphoma (dx s/p 2 cycles ABVD then 3 cycles BEACOPP (last 11/24), HFmrEF, cigar and cigarette smoking, methamphetamine use, and EtOH use disorder (in remission) who presents from [facility] in [place], [place] for further management of recurrent Hodgkin lymphoma. ID consulted on c/f infection based on CT w/ RUL consolidation vs mass, DEVYN tree-in-bud changes concerning for infectious process. #c/f Pneumonia - patient is currently asymptomatic for pneumonia. CT C/A/P with widely worsening metastatic hodgkin lymphoma and suspect the RUL findings are mostly related to worsening malignancy although may be evidence of developing post- obstructive infectious process (usually bacterial) related to a mass. - He has imaging findings in spine, spleen, kidney, [employer] concerning for malignancy vs multiple infectious processes. Have lower suspicion for disseminated infection d/t general lack of symptoms besides pain and clinical picture better explained by his malignancy. Recommendations - obtain sputum culture, serum Cocci Ab, Blasto Ab, Histo Ur Ag - f/u BCx - defer empiric PNA coverage to primary team - empiric fungal coverage not indicated at this time from ID perspective Discussed with attending: [facility] Gatito Dumont PGY4 Infectious Diseases Transplant ID will continue to follow. Please contact Transplant ID with any questions or concerns. Today, I am treating the patient for pneumonia which can cause sepsis, in the short-term future in the absence of appropriate treatment, as described in the note., Independently interpreted test ct chest which shows consolidation., Reviewed notes by heme/onc to determine appropriate plan of care as in the note., Estimated Creatinine Clearance: 97.8 mL/min (by Cockcroft-Gault based on SCr of0.96 mg/dL). - reviewed; antibiotics recommended above are dosed accordingly., and The patient is being intensively monitored for antimicrobial toxicity from cefepime, vanc with the following tests: cbc, cmp. Cosigned by Omid Bethea MD at 04/29/2023 7:15 AM CDT Associated attestation - Omid Bethea MD - 04/29/2023 7:15 AM CDT I have seen and examined the patient on 04/28/2023. I agree with the findings and plan of care as documented in the resident's/fellow's note. Patient is oxygenating well on room air and does not report any new/worsening pulmonary symptoms. He continues to have dyspnea on exertion, though he reports this has been a chronic issue and one of the symptoms that originally prompted evaluation for his malignancy. His imaging is concerning, though clinically his presentation is more consistent with noninfectious etiologies rather than pneumonia. Empiric treatment for post-obstructive pneumonia is not unreasonable. Recommend deferring antifungal treatment at this time, though prophylaxis can be considered depending on chemotherapy regimen andpotential for prolonged neutropenia. documented in this encounter Nursing Notes * Abigail Collins RN - 05/05/2023 6:45 AM CDT Pt stable. No events overnight. Pt has no complaints at this time. * Abigail Collins RN - 05/04/2023 7:30 AM CDT Tele restarted. Pt received oxy x 1 for pain. No complaints at this time. documented in this encounter Miscellaneous Notes * Plan of Care - Charlette Xavier RN - 05/05/2023 1:44 PM CDT 05/05/23 1344 Discharge Summary Discharge Disposition Private residence Equipment/Provider Needs No Home Needs Identified Discharge Additional Assistance Does the patient need discharge transport arranged? No Has discharge transport been arranged? No Post Discharge Care Provider Post Discharge Care Plan DC Summary has been faxed to next level of care provider (see Follow Up Providers) Per medical team, patient is medically stable for discharge at this time. Follow up appointment hasbeen scheduled for 05/13/23. Transportation will be provided by family. Patient and/or family are agreeable with the plan. If any further discharge needs arise, please contact the covering spring encaser. * Plan of Care - Charlette Xavier RN - 05/05/2023 1:42 PM CDT Prior auth request for discharge medication Morphine ER 45 mg Q12 hours. Call to plan and advised to go through Cover my meds. Information submitted with galvin [id number] pending approval. Pharmacy provided galvin for updated status. * Plan of Care - Lady Laguerre RN - 05/04/2023 5:47 PM CDT Goals: Clinical Goals for the Shift: VSS, chemo treatment, pain control, rest, safety Summary: VSS. Chemo started today - tolerated well. Pain was increasing throughout day but ended upmanaged with medications - see SEP. Walked around the unit. Remained free of injury. Rested throughout the shift. * Consults, Subsequent - Jennifer Butler NP - 05/04/2023 9:01 AM CDT Infectious Disease Daily Progress Subjective Chief complaint: RUE pulm lesion 33 yo male with HL, lost to f/u November, and now with diffuse progression Interval History: afebrile. VSS. Room air Objective Current Facility-Administered Medications: acetaminophen (TYLENOL) tablet 500 mg, 500 mg, oral, Q6H PRN, Richmond Ho MD, 500 mg at 05/01/23 0644 Carrier Fluids for Secondary Infusion - 0.9% Sodium Chloride, 30 mL, intravenous, PRN, Richmond Ho MD, 30 mL at 04/28/23 1833 cefepime (MAXIPIME) 2,000 mg/20 mL in sterile water (premix) 2,000 mg, 2,000 mg, intravenous, Q8H CADY, Richmond Ho MD, Stopped at 05/04/[address] (CYMBALTA) extended release capsule 60 mg, 60 mg, oral, Daily, Richmond Ho MD, 60 mg at 05/04/23 0831 enoxaparin (LOVENOX) syringe 40 mg, 40 mg, subcutaneous, Daily-2100, Richmond Ho MD, 40 mg at 05/03/23 202 gabapentin (NEURONTIN) capsule 300 mg, 300 mg, oral, TID, Richmond Ho MD, 300 mg at 05/04/23 0832 heparin 10 unit/mL flush 20-50 Units, 2-5 mL, intra-catheter, PRN, Richmond Ho MD, 50 Units at 05/01/23 0041 heparin 10 unit/mL flush 50 Units, 5 mL, intra-catheter, BID, Richmond Ho MD, 50 Unitsat 05/04/23 0317 HYDROmorphone (DILAUDID) injection 0.2 mg, 0.2 mg, intravenous, Q4H PRN, Anna, Armando Hagen MD, 0.2 mg at 05/01/23 1930 magnesium oxide (MAG-OX) tablet 400 mg, 400 mg, oral, Q4H PRN, Richmond Ho MD, 400 mg at 05/04/23 0639 magnesium sulfate 2 g/50 mL in water (premix) 2 g, 2 g, intravenous, Q4H PRN, Richmond Ho MD magnesium sulfate 4 g/100 mL in water (premix) 4 g, 4 g, intravenous, Q4H PRN, Richmond Ho MD magnesium sulfate 6 g in sodium chloride 0.9% 250 mL IVPB, 6 g, intravenous, Q4H PRN, Richmond Ho MD metroNIDAZOLE (FLAGYL) tablet 500 mg, 500 mg, oral, TID, Richmond Ho MD, 500 mg at 05/04/23 0831 morphine ER (MS CONTIN) extended release tablet 30 mg, 30 mg, oral, BID, Richmond Ho MD, 30 mg at 05/04/23 0831 nicotine (NICODERM CQ) 14 mg patch 24 hour 1 patch, 1 patch, transdermal, Daily, Richmond Ho MD, 1 patch at 05/03/23 1547 ondansetron (ZOFRAN) tablet 8 mg, 8 mg, oral, Q8H PRN OR ondansetron (ZOFRAN) injection 8 mg, 8mg, intravenous, Q8H PRN, Richmond Ho MD oxyCODONE (ROXICODONE) tablet 10 mg, 10 mg, oral, Q4H PRN, Anna, Armando Hagen MD, 10 mg at 05/04/[address] (PROTONIX) extended release tablet 40 mg, 40 mg, oral, BID, Anna, Armando Hagen MD,40 mg at 05/04/23 0831 perflutren protein-a (OPTISON) 3 mL in sodium chloride 0.9% 8 mL syringe, 1-8 mL, intravenous, Oncein imaging, Richmond Ho MD polyethylene glycol (MIRALAX) packet 17 g, 17 g, oral, Daily, Richmond Ho MD, 17 g at 05/04/23 0831 potassium chloride ER (KLOR-CON) extended release tablet 40 mEq, 40 mEq, oral, Q2H PRN, Richmond Ho MD, 40 mEq at 04/29/23 1040 senna-docusate (PERICOLACE) 8.6-50 mg per tablet 1 tablet, 1 tablet, oral, BID, Richmond Ho MD, 1 tablet at 05/04/23 0831 sodium chloride 0.9% flush 10 mL, 10 mL, intra-catheter, Q12H CADY, Richmond Ho MD, 10 mL at 05/04/23 0317 sodium chloride 0.9% flush 10-20 mL, 10-20 mL, intra-catheter, PRN, Richmond Ho MD sodium chloride 0.9% infusion, 30 mL/hr, intravenous, Continuous PRN, Richmond Ho MD sodium phosphate - potassium phosphate (K-PHOS NEUTRAL) tablet 500 mg, 500 mg, oral, Daily PRN, Richmond Ho MD, 500 mg at 05/04/23 0639 vancomycin 1500 mg/515 mL in sodium chloride 0.9% (premix) 1,500 mg, 1,500 mg, intravenous, Q12H, AnnaArmando MD, Last Rate: 0 mL/hr at 05/03/234, 1,500 mg at 05/04/23 0715 Temp: [36.1 ??C (97 ??F)-36.6 ??C (97.9 ??F)] 36.4 ??C (97.5 ??F) Pulse: [65-98] 98 Resp: [16-18] 18 BP: (122-128)/(54-68) 128/63 Physical Exam: General appearance: weak Head: Normocephalic, without obvious abnormality Eyes: conjunctivae/corneas clear Lungs: decreased Chest wall: normal Heart: RRR Abdomen: Soft, non-tender, + bowel sounds : no dysuria Extremities: no edema Skin: No rashes or lesions Neurologic: Alert and oriented x4, non-focal Lab/Radiology/Diagnostic Review: Recent Labs Lab Units 05/04/23 0319 WBC K/cumm 14.5* HEMOGLOBIN g/dL 7.7* HEMATOCRIT % 25.8* MCV fL 77.5* MCH pg 23.1* MCHC g/dL 29.8* RDW CV % 19.7* RDWSD fL 47.2 MPV fL 9.0* NEUTROS ABS K/cumm 12.8* LYMPHS PCT % 1.9 Recent Labs Lab Units 05/04/23 0319 SODIUM mmol/L 139 POTASSIUM PLASMA mmol/L 3.9 CO2 mmol/L 35* BUN SERUM mg/dL 13 GLUCOSE mg/dL 108 CREATININE mg/dL 0.71* CALCIUM mg/dL 7.7* CHLORIDE mmol/L 102 ALBUMIN g/dL 2.4* AST Units/L 11 ALT Units/L 12 ALK PHOS Units/L 122 BILIRUBIN TOTAL mg/dL 0.2 TOTAL PROTEIN g/dL 5.0* ANIONGAP mmol/L 2 Micro: BAL (04/30) yeast LN aspirate (04/30) NGTD Cytology: A. Lung, right upper lobe, endobronchial ultrasound-guided fluoroscopy assisted fine needle aspiration: - Nondiagnostic for a mass lesion; blood and benign bronchopulmonary elements only B. Lymph node, right hilar 11R, endobronchial ultrasound guided fine needle aspiration: - Negative for malignancy - Scant lymphoid component present Pathology: A. Lung, right upper lobe, transbronchial biopsy: - Fragments of airway with acute and chronic inflammation - No evidence of malignancy Imaging review: Assessment & Plan: 1) RUL lesion - present since at least December. Pt with no resp symptoms - PET (04/29) = large area of hypermetabolic consolidation RUL with adjacent nodularity - bronch (04/30) = yeast - fungal serologies negative to date (serum Histo, crypto, blasto, galactomannan) - Recommend * does not appear to have acute bacterial/fungal process as changes have been present since at least December * would complete empiric Cefe, Vanco, Flagyl today - Day #7 ID will sign off. No ID f/u needed. Discussed abx & plan of care with BMT & Dr. Lake Butler DNP, [facility]- - M-F 8am-4pm (ID Transplant Fellow: [phone]) Today, I am treating the patient for pulmonary lesion which can cause sepsis in the short-term future in the absence of appropriate treatment, as described in the note. Discussed management of abx with BMT . Estimated Creatinine Clearance: 132.3 mL/min (A) (by Cockcroft-Gault based on SCr of 0.71 mg/dL (L)). - reviewed; antibiotics recommended above are dosed accordingly. The patient is being intensively monitored for antimicrobial toxicity from Cefe, Vanco, Flagyl withthe following tests: CBC, CMP weekly for renal & hepatic toxicity & leukopenia/anemia . * Plan of Care - Lady Laguerre RN - 05/03/2023 5:00 PM CDT Goals: Clinical Goals for the Shift: VSS, pain control, remain free of injury, rest/comfort Summary: VSS. Tele monitoring discontinued. Pain was managed with medications. Had one bowel movement. Port changed. No acute changes to report. Rested throughout shift. Antibiotics given. * Plan of Care - Noni Sorensen RN - 05/03/2023 7:41 AM CDT Goals: Clinical Goals for the Shift: VSS, pain control, comfort Summary: Pt's VSS. Phosphorus 1.4, made aware. Pt gained 189 to 201 lbs from previous shift weight to today's weight. Second dose of vanc given. Pt currently resting with safety measures in place. * Plan of Care - Stevan Funez RN - 05/02/2023 6:17 PM CDT Goals: Clinical Goals for the Shift: VSS, pain control, safety Summary: Patient rested well, family at bedside. Vitals stable through the day. BMx1. Will continueto monitor. * Hospital Course - Armando Castillo MD - 05/02/2023 5:08 PM CDT * Hodgkin lymphoma (HCC) Diagnosed with 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 Ashford, [place], [place]. S/p ABVD (2 cycles) with progression then BEACOPP (almost 3 cycles, stopped after cycle 3, day 8 due to neutropenic fever). Lost to follow-up after 11/2022. Now with diffuse progression of disease on CT C/A/P W/ Con. Alk Phos 245, P/A 5.8/2.3, CMP/Mg/Phos otherwise wnl. CBC w/ WBC 14.3, Hgb 7.1, Plt 486. PT/INR 1.35/15.4,aPTT 36. BCx/Fungal Cx . ESR 83. PET-CT w/ extensive lymphadenopathy, hypermetabolic consolidation in lung. MRI brain, spine w/ extensive disease. Pathology from R inguinal lymph node biopsy 04/27at OSH remarkable for classic Hodgkin's lymphoma. Per Dr. Sena and inpatient [facility] team, the patient was started on Dexamethasone 10 mg x 1 followed by 4 mg q6h. Lesion of right lung Patient's PET scan notable for hypermetabolic consolidation of the left lung concerning for metastatic disease versus infection. Interventional Pulm consulted for biopsy, path/cultures showed . Double vision bMRI showing indeterminant mild diffuse dural enhancement. Visual alcaraz intact, EOMI on exam. Ophthalmology consulted w/ recommendation for MRI brain with orbits W con, which was without explanatorylesion, although motion artifact limited. Per ID, no need for empiric meningitic coverage Pneumonia Reported fever to 102 at OSH 04/27 with chest imaging c/f RUL PNA, possibly fungal. Started on IV vanc+pip-tazo+azithro at OSH (04/27-04/28), per OSH lab cultures were not drawn. On room air, no dyspnea. Will treat as hospital- acquired PNA with a possible post-obstructive component requiring anaerobic coverage. Possibly fungal infection given CT C/A/P 04/26 with nodularities in left lung and spleen as well possibly c/f fungal infection. Started on empiric vanc/cefe/flagyl and azithromycin for 3days. CXR showed RUL airspace opacity, likely infectious pneumonia. PET CT w/ hypermetabolic mass as above for which interventional pulmonology was consulted for bronchoscopy and biopsy, which showedacute and chronic inflammation. ID additionally consulted, w/ recommendation against empiric antifungal coverage at this time. Lumbar spine tumor L-spine MRI W Con 04/26 with epidural extension of tumor at L4 results in severe canal stenosis, also with epidural collections of undetermined significance in lumbar spine. Pt denies recent LP. Neuro exam with 5/5 strength BLEs, normal sensation. Per Onc recs, consulted Neuro (rather than NSGY) because Onc does not feel pt would benefit from surgery but would like Neuro evaluation. Extensive workup completed which was grossly negative, lesions likely Hodgkin's lymphoma. Neurology recommendedre-engagement after treatment if lesions or enhancement persist. Cervical spine disease OSH MRI C-spine WO Con with prominent anterior epidural soft tissue extending from C3 to C5 contributing to moderate spinal canal stenosis. CT C-spine with lytic lesions of C3-C5. Neuro exam with 5/5 strength BUEs, no sensory deficits. Neurology and Medical Oncology consultations as above. Recurrent knee pain Patient w/ acute on chronic R knee pain, had sports injury many years ago, currently flaring. X-rayR knee reassuring. Improved with steroids being prescribed for HL. Constipation Reports last BM at least 4 days prior to admission. KUB w/ moderate stool burden in R hemicolon, mild in L hemicolon. Bowel regimen at discharge was . Smoking Continued home nicotine patch Bilateral leg edema BLE edema for past week likely 2/2 lymphadenopathy with venous compression. Also TTE during recent hospitalization with EF 45-50%. TTE w/ normal LV+RV morphology/fx, small pericardial effusion, Duplex w/o e/o DVT. * Plan of Care - Noni Sorensen RN - 05/02/2023 5:18 AM CDT Goals: Clinical Goals for the Shift: VSS, pain control, comfort Summary: PRN dilaudid x1, PRN oxycodone x3. One small formed brown B.M. Pt currently resting with safety measures in place. * Plan of Care - Stevan Funez RN - 05/01/2023 6:26 PM CDT Goals: Clinical Goals for the Shift: Pain control, comfort Summary: Patient rested well, awaiting path results. Pain PRN given as needed. Will continue to monitor. * Initial Assessments - Charlette Xavier RN - 05/01/2023 2:36 PM CDT CM Initial Assessment Interview Note Information Obtained From: Patient (05/01/231429) Admission Source: OSH Impression: 33 y/o male with PMH recurrent Hodgkin Lymphoma, HF, PNA admitted for lymphoma management. Plan Includes: Anticipate patient will discharge to home vs home with HH when medically stable. CM to follow for d/c planning and referrals as needed. Primary Source of Transportation: Does the patient need discharge transport arranged?: Yes (Might need, uncertain if he has a ride) Has discharge transport been arranged?: No (05/01/231429) Health Insurance Coverage: [employer] Prescription Coverage: Yes Pharmacy: [facility] [place] [address] [address] [facility] [place] [address] Primary Care Provider: No primary care provider on file. Per patient sees Dr. Candido Hayes in [facility]. [phone] Prior to Admission: Functional Status: Minimal assist with ADLs Primary Caregiver: Self Support System: Family members, Parent Durable Medical Equipment: Cane (single prong), Walker (wheeled) Living Arrangements: Family members Type of Residence: Private residence Steps in home?: Yes, Outside of home Number of steps outside: 2 steps (05/01/231429) Potential discharge needs include: Home Health: Physical therapy, Occupational therapy (05/01/231429) Dialysis: No Behavioral Health Services: Behavioral Health Services: No (05/01/231429) Patient expects to be Discharged to: Private residence, (05/01/231429) Additional Information: CM met with patient at bedside to complete initial assessment. Address and phone number verified with face sheet. Patient lives in a private residence with his Aunt and reports needing assistance with ADLs. Denies HHC or DME for daily use but his Aunt has canes and wheeled walkers. He is interested in getting a wheelchair. Patient's Identified Problem/Goal Problem: Ensure acute medical needs are met and that patient has a safe discharge plan. Goal: Secure a discharge plan that patient/family are agreeable with and ensure patient has continuum of care. Case management will follow for discharge planning and send referrals as needed. Goals include: To assure continuity of care, To maximize coping skills, To assure patient is in a safe environment and To assure access to community resources. Plan includes: 1. Collaboration with patient, MD, direct care nurse, Ornamental Metal Worker Helper, and other members of the health care team to assure needed interventions completed. 2. Return patient to optimal level of self-care post discharge. 3. Lining Maker will follow for Discharge Planning - interventions as needed 4. Anticipated level of care at discharge 5. Planned Discharge Disposition Based on a comprehensive family assessment, assistance with instrumental activities of daily livingafter discharge will be provided by family. Through the course of our work I determined that the family possesses the skill and ability to provide and monitor the care of the patient when he or she returns home. The family has the capacity to provide/monitor/arrange for the care of the patient. Finally, we determined that the family has the knowledge of available resources and that combining them with their existing resources will suffice to sustain and care for the patient when he or she returns home. The treatment team is aware of thisinformation. All are in agreement with the aftercare plan. Charlette Xavier RN * Plan of Care - Noni Sorensen RN - 05/01/2023 3:54 AM CDT Goals: Clinical Goals for the Shift: VSS, comfort, pain control Summary: Pt's VSS. Pt currently resting with safety measures in place. * Plan of Care - Alexandra Matthews RN - 04/30/2023 6:15 PM CDT Goals: Clinical Goals for the Shift: pain control, Bronch Summary: VSS, pain managed with current pain medications. Pt had Bronch this afternoon, returned tofloor on room air, Vitals stable. Continue to monitor. * Consults, Subsequent - Selvin Steward MD - 04/30/2023 5:28 PM CDT INTERVENTIONAL PULMONARY CONSULT DAILY PROGRESS NOTE Date of Service 04/30/2023 Subjective Chief Complaint: RUL mass Interval History: NAEON. Patient was seen this AM and was feeling well. He underwent bronchoscopy with sampling of his RUL mass today and tolerated the procedure well. Current Facility-Administered Medications Medication Dose Route Frequency Last Rate Last Admin acetaminophen (TYLENOL) tablet 500 mg 500 mg oral Q6H PRN 500 mg at 04/28/23 1257 Carrier Fluids for Secondary Infusion - 0.9% Sodium Chloride 30 mL intravenous PRN 30 mL at 04/28/23 1833 cefepime (MAXIPIME) 2,000 mg/20 mL in sterile water (premix) 2,000 mg 2,000 mg intravenous Q8H CADY Stopped at 04/30/23 1020 dexAMETHasone (DECADRON) 4 mg/mL injection 4 mg 4 mg intravenous Q6H CADY 4 mg at 04/30/[address] (CYMBALTA) extended release capsule 60 mg 60 mg oral Daily 60 mg at 04/30/23 0826 enoxaparin (LOVENOX) syringe 40 mg 40 mg subcutaneous Daily-2100 40 mg at 04/29/23 2045 gabapentin (NEURONTIN) capsule 300 mg 300 mg oral TID 300 mg at 04/30/23 0826 heparin 10 unit/mL flush 20-50 Units 2-5 mL intra-catheter PRN heparin 10 unit/mL flush 50 Units 5 mL intra-catheter BID 50 Units at 04/29/23 1550 magnesium oxide (MAG-OX) tablet 400 mg 400 mg oral Q4H PRN magnesium sulfate 2 g/50 mL in water (premix) 2 g 2 g intravenous Q4H PRN magnesium sulfate 4 g/100 mL in water (premix) 4 g 4 g intravenous Q4H PRN magnesium sulfate 6 g in sodium chloride 0.9% 250 mL IVPB 6 g intravenous Q4H PRN metroNIDAZOLE (FLAGYL) tablet 500 mg 500 mg oral TID 500 mg at 04/30/23 0825 morphine ER (MS CONTIN) extended release tablet 30 mg 30 mg oral BID 30 mg at 04/30/23 0826 nicotine (NICODERM CQ) 14 mg patch 24 hour 1 patch 1 patch transdermal Daily 1 patch at 04/29/23 1822 ondansetron (ZOFRAN) tablet 8 mg 8 mg oral Q8H PRN Or ondansetron (ZOFRAN) injection 8 mg 8 mg intravenous Q8H PRN oxyCODONE (ROXICODONE) tablet 5 mg 5 mg oral Q4H PRN 5 mg at 04/30/23 1214 pantoprazole (PROTONIX) 40 mg in sodium chloride 0.9% 10 mL IV Syringe 40 mg intravenous BID perflutren protein-a (OPTISON) 3 mL in sodium chloride 0.9% 8 mL syringe 1-8 mL intravenous Once inimaging polyethylene glycol (MIRALAX) packet 17 g 17 g oral Daily 17 g at 04/30/23 0827 potassium chloride ER (KLOR-CON) extended release tablet 40 mEq 40 mEq oral Q2H PRN 40 mEq at 04/29/23 1040 senna-docusate (PERICOLACE) 8.6-50 mg per tablet 1 tablet 1 tablet oral BID 1 tablet at 04/30/23 0826 sodium chloride 0.9% flush 10 mL 10 mL intra-catheter Q12H CADY 10 mL at 04/30/23 0339 sodium chloride 0.9% flush 10-20 mL 10-20 mL intra-catheter PRN sodium chloride 0.9% infusion 30 mL/hr intravenous Continuous PRN sodium phosphate - potassium phosphate (K-PHOS NEUTRAL) tablet 500 mg 500 mg oral Daily PRN vancomycin 1,250 mg/262.5 mL in sodium chloride 0.9% (premix) 1,250 mg 15 mg/kg intravenous Q12H Stopped at 04/30/23 0827 Facility-Administered Medications Ordered in Other Encounters Medication Dose Route Frequency Last Rate Last Admin fentaNYL (SUBLIMAZE) preservative free syringe 50 mcg 50 mcg intravenous Q5 Min PRN midazolam (VERSED) 1 mg/mL injection 2 mg 2 mg intravenous Q5 Min PRN sodium chloride 0.9% infusion 50 mL/hr intravenous Continuous Stopped at 04/30/23 1545 Objective Physical Examination Vitals: 04/30/23 1132 BP: 108/52 Pulse: 71 Resp: 16 Temp: 36.3 ??C (97.4 ??F) SpO2: 97% Gen: NAD, seated comfortably HEENT: NC/AT, MMM, poor dentition CV: RRR, no m/r/g Lungs: CTAB, equal expansion b/l Abdomen: Soft, NTND, BS+ Ext: WWP, no c/c/e Neuro: CN II-XII grossly intact, no focal deficits Psych: Appropriate mood and affect Data Lab Results Component Value Date WBC 12.6 (H) 04/30/2023 HGB 7.1 (L) 04/30/2023 HCT 23.5 (L) 04/30/2023 MCV 74.8 (L) 04/30/2023 LABPLAT 436 (H) 04/30/2023 Lab Results Component Value Date GLUCOSE 134 04/30/2023 CALCIUM 8.3 (L) 04/30/2023 SODIUM 138 04/30/2023 POTASSIUM 4.0 04/30/2023 CO2 29 04/30/2023 CHLORIDE 103 04/30/2023 BUNSER 15 04/30/2023 CREATININE 0.72 (L) 04/30/2023 Assessment/Plan Lesion of right lung Assessment & Plan RUL consolidation/mass seen on CT CAP 04/26/23, which also showed hypoattenuating splenic lesions. Concern for progression of lymphoma vs fungal infection. Other imaging (MRI brain, Cspine) showing osseous metastatic disease and spinal canal stenosis at C3-C5 and L4; no brain metastases. Patient vitaly broad-spectrum antibiotics and steroids but not empiric antifungal coverage at this time as suspicion for malignancy is higher than infection. - Patient is s/p bronchoscopy today with TBNA and cold forceps biopsy of RUL mass, TBNA and routine, fungal, and AFB cultures of 11R lymph node, and BAL of the RUL for routine, fungal, and AFB cultures - Follow up cultures, pathology, cytology Thank you for this interesting consult, Interventional Pulmonology will sign off. To reach the Interventional Pulmonology fellow on weekdays from 06:00 to 18:00, please page [phone]. On weekends or after hours (from 18:00 - 06:00), please page the on-call stopperer assembler as idalia Keen. Selvin Steward MD Interventional Hunting Guide 04/30/2023 5:29 PM Cosigned by Freddy Parham MD at 05/03/2023 12:22 PM CDT Associated attestation - Freddy Parham MD - 05/03/2023 12:22 PM CDT I have seen and examined the patient on 04/30/23. I agree with the findings and plan of care as documented in the resident's/fellow's note. and as discussed with the resident/fellow.. * Assessment & Plan Note - Tabitha David MD - 04/30/2023 3:13 PM CDTAssociated Problem(s): Lesion of right lung Patient's PET scan notable for hypermetabolic consolidation of the left lung concerning for metastatic disease versus infection. - Interventional Pulm consulted for biopsy, s/p lung bx (04/30) - Pathology w/ acute and chronic inflammation, no e/o malignancy. CX neg for infection. * Assessment & Plan Note - Selivn Steward MD - 04/30/2023 11:19 AM CDT Associated Problem(s): Lesion of right lung RUL consolidation/mass seen on CT CAP 04/26/23, which also showed hypoattenuating splenic lesions. Concern for progression of lymphoma vs fungal infection. Other imaging (MRI brain, Cspine) showing osseous metastatic disease and spinal canal stenosis at C3-C5 and L4; no brain metastases. Patient vitaly broad-spectrum antibiotics and steroids but not empiric antifungal coverage at this time as suspicion for malignancy is higher than infection. - Patient is s/p bronchoscopy today with TBNA and cold forceps biopsy of RUL mass, TBNA and routine, fungal, and AFB cultures of 11R lymph node, and BAL of the RUL for routine, fungal, and AFB cultures - Follow up cultures, pathology, cytology * Consults, Subsequent - Jossue Dumont MD PhD - 04/30/2023 10:09 AM CDT NEUROLOGY CONSULT SIGN-OFF NOTE Interval history MRI orbits without clear evidence of reason for blurry vision MRI spine with cervical spine epidural lesion from C2 to C5 and possible region of cord signal change in cervical spine Lab/Radiology/Diagnostic Review: Serum/Urine: RAYA neg, JAVIER+, RECYCLABLE PRODUCTS SORTER 1.2, ANCA pending, ESR 83, CRP 57, RF <10, RPR NR, HIV NR, crypto ag neg, Tspot pending, blasto neg MRI B/Csp/Tsp 04/27: mild diffuse dural enhancement, diffuse osseous metastatic disease, epidural extension of tumor L4 resulting in severe canal stensosis, epidural collections in lumbar spine either acute hematoma or abscess v atypical nonenhancing tumor MRI orbit/Csp wo 04/29: no clear evidence of reason for blurry vision. cervical spine epidural lesion from C2 to C5 and possible region of cord signal change in cervical spine Assessment & Plan Crystal Capone is a 33 y.o. male with a history of Hodgkin lymphoma, HFmrEF, PNA c/b intubation andseptic shock, cigar and cigarette smoking, methamphetamine use, and EtOH use disorder (in remission) who presented to the hospital for progression of Hogdkin's lymphoma, initiation of chemotherapy. Current collection of data suggest that the patient has metastatic Hodgkin's lymphoma per oncology team. Would be reasonable to treat with chemotherapy as planned by the oncology team then follow up abnormal imaging findings to ensure improvement. If continues to have abnormal imaging, he could warrant further workup including LP. Recommendations No dedicated need for neurologic follow-up unless there is clinical concern from oncology team after chemotherapy that the current lesions are not due to metastatic Hodgkin lymphoma. Agree with inpatient treatment plan These updated recommendations were discussed with the attending physician Dr. Candido Galeas and the primary team. We will sign off. For acute neurologic change, please activate the acute stroke pager at [phone] and specify thepatient's name, room number and your callback number. For a non-emergent consult to neurology, please call the consult cellphone at [phone] and specify that this consult was staffed with Consult Team B. Jossue Dumont MD PhD Adult Neurology Resident [facility] in [facility] Cosigned by Sean Galeas MD at 04/30/2023 4:41 PM CDT Associated attestation - Sean Galeas MD - 04/30/2023 4:41 PM CDT The resident/fellow saw and examined the patient, we discussed their findings, and I am in agreement with the plan based on the discussion with the resident/fellow. I did not personally examine the patient. * Plan of Care - Jenni Dotson RN - 04/30/2023 6:31 AM CDT Goals: Clinical Goals for the Shift: pain control, NPO midnight Summary: Patient received oxy x2 for pain. NPO since midnight. Abx continued. Voiding per urinal. Q4 neuro checks unchanged. * Plan of Care - Alexandra Matthews RN - 04/29/2023 5:23 PM CDT Goals: Clinical Goals for the Shift: pet scan, pain control Summary: VSS, pt completed PET scan and Echo this shift, currently down for MRI, Pain managed with current pain regimen. * Significant Event - Gatito Dumont MD - 04/29/2023 4:05 PM CDT 33 yo man with PMH recurrent Hodgkin lymphoma (dx s/p 2 cycles ABVD then 3 cycles BEACOPP (last 11/24), HFmrEF, cigar and cigarette smoking, methamphetamine use, and EtOH use disorder (in remission) who presents from [facility] in [place], [place] for further management of recurrent Hodgkin lymphoma. ID consulted on c/f infection based on CT w/ RUL consolidation vs mass, DEVYN tree-in-bud changes concerning for infectious process. He has dyspnea on exertion which has been present several months and is currently at baseline. Also reporting episodic headache and double vision which was not present at time of initial evaluation. He was started on empiric cefepime, vanc, flagyl, and a zithromycin for possible post-obstructive PNA. #c/f Pneumonia - CT C/A/P with widely worsening metastatic hodgkin lymphoma and suspect the RUL findings are mostly related to worsening malignancy although may be evidence of developing post-obstructive infectiousprocess (usually bacterial) related to a mass. - He has imaging findings in spine, spleen, kidney, ARSON AND BOMB INVESTIGATOR concerning for malignancy vs multiple infectious processes. Have lower suspicion for disseminated infection as pt is not neutropenic and would expect a disseminated infection with large multiorgan involvement to generate significant symptoms or instability. His clinical picture better explained by progression of his malignancy. - MRSA nares+ 04/26 Recommendations - reasonable to consider treatment for post-obstructive PNA (usually 7-10d in absence of abscess) and monitor for clinical response. Would consider sequential de-escalation of abx and favor continuation of cefepime, vancomycin over azithromycin and flagyl. - would defer empiric antifungal coverage at this time although prophylaxis may become indication depending on planned chemotherapy and potential for prolonged neutropenia Discussed with attending: [facility] Gatito Dumont PGY4 Infectious Diseases Transplant ID will follow peripherally. Please contact Transplant ID with any questions or concerns. Cosigned by Omid Bethea MD at 04/29/2023 4:47 PM CDT Associated attestation - Omid Bethea MD - 04/29/2023 4:47 PM CDT I have seen and examined the patient on 04/29/23. I agree with the findings and plan of care as documented in the resident's/fellow's note.. Omid Bethea MD * Plan of Care - Charlette Xavier RN - 04/29/2023 2:57 PM CDT Unable to complete initial assessment due to patient off the floor for testing then with multiple providers. Admission Source: PSH Impression: 33 y/o male with PMH of recurrent Hodgkin lymphoma, admitted from [facility] in [facility] for treatment. Plan & Referrals made/in place: None currently, pending plan. ADD: 7 + days qual research manager will continue to follow and assist with discharge planning as needed. * Assessment & Plan Note - Armando Castillo MD - 04/29/2023 2:17 PM CDT Associated Problem(s): Recurrent knee pain Patient w/ acute on chronic R knee pain, had sports injury many years ago, currently flaring. - X-ray R knee reassuring - Steroids being prescribed for HL * Plan of Care - Jenni Dotson RN - 04/29/2023 5:43 AM CDT Goals: Clinical Goals for the Shift: pain control Summary: Patient unable to complete MRI d/t pain. MD made aware. Q4 neuro check done. VSS. Pt received oxy x1. * Plan of Care - Mirna Vizcaino RN - 04/28/2023 8:08 PM CDT Goals: Clinical Goals for the Shift: admission Summary: [place] admitted [place] [id number] this AM. One set of BCx drawn peripherally, one set of BCx drawnvia newly accessed port, and one set of fungal culture drawn. Port de-accessed and re-accessed thisafternoon, CHG applied. Telemetry started and EKG completed. Patient's MRI screening complete. Abx given in addition to scheduled meds and prn pain medication. Patient BRIE in MRI. Problem: Health Behavior: Goal: Understanding of discharge needs will improve Outcome: Ongoing Problem: Activity: Goal: Ability to return to normal activity level will improve Outcome: Ongoing Problem: Lack of Knowledge: Goal: Knowledge of the prescribed therapeutic regimen will improve Outcome: Progressing Problem: Coping: Goal: Ability to cope will improve Outcome: Ongoing Problem: Sensory: Goal: Pain level will decrease Outcome: Ongoing * Assessment & Plan Note - Armando Castillo MD - 04/28/2023 3:34 PM CDT Associated Problem(s): Lumbar spine tumor L-spine MRI W Con 04/26 with epidural [...] checks - Pharmacologic pain regimen described elsewhere * Assessment & Plan Note - Armando Castillo MD - 04/28/2023 3:31 PM CDT Associated Problem(s): Constipation Reports last BM at least 4 days ago. - KUB w/ moderate stool burden in R hemicolon, mild in L hemicolon - Daily Miralax, senna-doc * Assessment & Plan Note - Richmond Ho MD - 04/28/2023 3:30 PM CDT Associated Problem(s): Smoking - Continue home nicotine patch * Assessment & Plan Note - Armando Castillo MD - 04/28/2023 3:25 PM CDT Associated Problem(s): Cervical spine disease OSH MRI C-spine WO Con with prominent anterior epidural soft tissue extending from C3 to C5 contributing to moderate spinal canal stenosis. CT C-spine with lytic lesions of C3-C5. Neuro exam with 5/5 strength BUEs, no sensory deficits. - MRI C-spine W Con - Routine neuro checks - Defer RadOnc pending discussions and evaluation for systemic treatment - Pharmacologic pain control described elsewhere * Assessment & Plan Note - Tabitha David MD - 04/28/2023 3:24 PM CDTAssociated Problem(s): Bilateral leg edema (Deleted) BLE edema for past week likely 2/2 lymphadenopathy with venous compression. Also TTE during recent hospitalization with EF 45-50%. - TTE w/ normal LV+RV morphology/fx, small pericardial effusion - Duplex w/o e/o DVT - S/p diuresis w/ lasix c/b metabolic alkalosis. Holding off further diuresis. * Assessment & Plan Note - Tabitha David MD - 04/28/2023 3:13 PM CDTAssociated Problem(s): Double vision With bMRI showing indeterminant mild diffuse dural enhancement. Assessment: - Visual alcaraz intact, EOMI - MRI brain with orbits W con w/o explanatory lesion, although motion artifact limited Plan: - Rx of lymphoma as per elsewhere - Per ID, no need for empiric meningitic coverage - Ophthalmology consulted * Assessment & Plan Note - Tabitha David MD - 04/28/2023 1:21 PM CDTAssociated Problem(s): Pneumonia Reported fever to 102 at OSH 04/27 with chest imaging c/f RUL PNA, possibly fungal. Started on IV vanc+pip-tazo+azithro at OSH (04/27-04/28), per OSH lab cultures were not drawn. On room air, no dyspnea. Will treat as hospital- acquired PNA with a possible post-obstructive component requiring [...] 7 days of abx, discussed w. ID. * Assessment & Plan Note - Tabitha David MD - 04/28/2023 1:20 PM CDTAssociated Problem(s): Hodgkin lymphoma (HCC) Diagnosed with 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 Ashford, [place], [place]. S/p ABVD (2 cycles) with progression [...] duloxetine 60 mg daily, and lidocaine patch documented in this encounter Plan of Treatment Pending Results Name Type Priority Associated Diagnoses Date /Time Vancomycin level random Lab STAT 1 2:38 PM CDT Lactate dehydrogenase (LD) Lab Routine 04/29/2023 2:41 AM CDT Scheduled Orders Name Type Priority Associated Diagnoses Orde r Schedule Aerobic culture and gram stain Sputum Sputum Microbiology STAT STAT for 1 Occurrences starting 04/28/2023 until 04/28/2023 Vancomycin level random Lab STAT O nce for 1 Occurrences starting 04/28/2023 until 04/28/2023 Lactate dehydrogenase (LD) Lab Routine Once for 1 Occurrences starting 04/29/2023 until 04/29/2023 documented as of this encounter Procedures Procedure Name Priority Date/Time Associated Diagnosis Comments EGFR Routine 05/05/2023 3:27 AM CDT DIFFERENTIAL AUTO Routine 05/05/2023 3:2 7 AM CDT CBC WITH AUTO DIFFERENTIAL Routine 05/05/2023 3:27 AM CDT PHOSPHORUS Routine 05/05/2023 3:27 AM CDT MAGNESIUM Routine 05/05/2023 3:27 AM CDT COMPREHENSIVE METABOLIC PANEL Routine 05/05/2023 3:27 AM CDT VANCOMYCIN LEVEL TROUGH Routine 05/04/2023 6:40 AM CDT EGFR Routine 05/04/2023 3:19 AM CDT DIFFERENTIAL AUTO Routine 05/04/2023 3:1 9 AM CDT CBC WITH AUTO DIFFERENTIAL Routine 05/04/2023 3:19 AM CDT PHOSPHORUS Routine 05/04/2023 3:19 AM CDT MAGNESIUM Routine 05/04/2023 3:19 AM CDT COMPREHENSIVE METABOLIC PANEL Routine 05/04/2023 3:19 AM CDT EGFR Routine 05/03/2023 12:34 AM CDT DIFFERENTIAL AUTO Routine 05/03/2023 12: 34 AM CDT CBC WITH AUTO DIFFERENTIAL Routine 05/03/2023 12:34 AM CDT APTT Routine 05/03/2023 12:34 AM CDT PROTIME-INR Routine 05/03/2023 12:34 AM CDT TYPE AND SCREEN Timed 05/03/2023 12:34 AM CDT URIC ACID Routine 05/03/2023 12:34 AM CDT PHOSPHORUS Routine 05/03/2023 12:34 AM CDT MAGNESIUM Routine 05/03/2023 12:34 AM CDT COMPREHENSIVE METABOLIC PANEL Routine 05/03/2023 12:34 AM CDT VANCOMYCIN LEVEL TROUGH Timed 05/02/2023 6:25 AM CDT EGFR Routine 05/02/2023 12:37 AM CDT DIFFERENTIAL AUTO Routine 05/02/2023 12: 37 AM CDT CBC WITH AUTO DIFFERENTIAL Routine 05/02/2023 12:37 AM CDT PHOSPHORUS Routine 05/02/2023 12:37 AM CDT MAGNESIUM Routine 05/02/2023 12:37 AM CDT COMPREHENSIVE METABOLIC PANEL Routine 05/02/2023 12:37 AM CDT OXYCODONE CONFIRMATION, URINE Routine 05/01/2023 3:54 PM CDT FENTANYL CONFIRMATION, MS URINE Routine 05/01/2023 3:54 PM CDT DRUGS OF ABUSE SCREEN, URINE WITH REFLEX CONFIRMATION Routine 05/01/2023 3:54 PM CDT OPIATES CONFIRMATION MS, URINE Routine 05/01/2023 3:54 PM CDT AMPHETAMINE, URINE, CONFIRMATION Routine 05/01/2023 3:54 PM CDT EGFR Routine 05/01/2023 12:49 AM CDT DIFFERENTIAL AUTO Routine 05/01/2023 12: 49 AM CDT CBC WITH AUTO DIFFERENTIAL Routine 05/01/2023 12:49 AM CDT PHOSPHORUS Routine 05/01/2023 12:49 AM CDT MAGNESIUM Routine 05/01/2023 12:49 AM CDT COMPREHENSIVE METABOLIC PANEL Routine 05/01/2023 12:49 AM CDT XR KNEE RIGHT 1 OR 2 VIEWS IP Routine 04/30/2023 7:26 PM CDT BRONCHOSCOPY Routine 04/30/2023 2:08 PM CDT RAYA QUALITATIVE WITH REFLEX TO RAYA QUANTITATIVE Routine 04/30/2023 6:24 AM CDT T-SPOT.TB Routine 04/30/2023 6:24 AM CDT SCL 70 ANTIBODIES Routine 04/30/2023 6:2 4 AM CDT EGFR Routine 04/30/2023 6:24 AM CDT DIFFERENTIAL AUTO Routine 04/30/2023 6:2 4 AM CDT CHAVEZ ANTIBODIES Routine 04/30/2023 6:24 AM CDT RECYCLABLE PRODUCTS SORTER ANTIBODIES Routine 04/30/2023 6:24 AM CDT JAVIER ANTIBODY EVALUATION WITH REFLEX Routine 04/30/2023 6:24 AM CDT SOLEDAD-1 ANTIBODY Routine 04/30/2023 6:24 AM CDT HIV 1/2 ANTIBODY PLUS P24 ANTIGEN Routine 04/30/2023 6:24 AM CDT ANTI-NEUTROPHILIC CYTOPLASMIC ANTIBODY (ANCA) WITH REFLEX TO MPO AND PR3 ABS Routine 04/30/2023 6:24 AM CDT CBC WITH AUTO DIFFERENTIAL Routine 04/30/2023 6:24 AM CDT CYCLIC CITRUL PEPTIDE ANTIBODY, IGG Routine 04/30/2023 6:24 AM CDT RPR Routine 04/30/2023 6:24 AM CDT SJOGRENS SYNDROME-B ANTIBODY Routine 04/30/2023 6:24 AM CDT SJOGRENS SYNDROME-A ANTIBODY Routine 04/30/2023 6:24 AM CDT RHEUMATOID FACTOR Routine 04/30/2023 6:2 4 AM CDT CRP (ACUTE PHASE) Routine 04/30/2023 6:2 4 AM CDT PHOSPHORUS Routine 04/30/2023 6:24 AM CDT MAGNESIUM Routine 04/30/2023 6:24 AM CDT VANCOMYCIN LEVEL TROUGH Timed 04/30/2023 6:24 AM CDT COMPREHENSIVE METABOLIC PANEL Routine 04/30/2023 6:24 AM CDT MRI CERVICAL SPINE W WO CONTRAST IP Routine 04/29/2023 5:47 PM CDT MRI ORBIT W WO CONTRAST ED Urgent/IP Urgent 04/29/2023 5:47 PM CDT TRANSTHORACIC ECHO (TTE) COMPLETE W DOPPLER/CF WO CONTRAST Routine 04/29/2023 1:06 PM CDT PET/CT FDG SKULL TO THIGH ED Urgent/IP Urgent 04/29/2023 10:18 AM CDT EGFR Routine 04/29/2023 2:41 AM CDT DIFFERENTIAL AUTO Routine 04/29/2023 2:4 1 AM CDT CBC WITH AUTO DIFFERENTIAL Routine 04/29/2023 2:41 AM CDT APTT Routine 04/29/2023 2:41 AM CDT PROTIME-INR Routine 04/29/2023 2:41 AM CDT TYPE AND SCREEN Timed 04/29/2023 2:41 AM CDT PHOSPHORUS Routine 04/29/2023 2:41 AM CDT MAGNESIUM Routine 04/29/2023 2:41 AM CDT LACTATE DEHYDROGENASE Routine 04/29/2023 2:41 AM CDT COMPREHENSIVE METABOLIC PANEL Routine 04/29/2023 2:41 AM CDT NEURO MR OUTSIDE CONSULT Routine 04/29/2023 2:23 AM CDT NEURO MR OUTSIDE CONSULT Routine 04/29/2023 2:19 AM CDT MRI BRAIN WO CONTRAST ED Urgent/IP Urgent 04/28/2023 8:38 PM CDT BLOOD CULTURE STAT 04/28/2023 6:30 PM CDT MOLD BLOOD CULTURE STAT 04/28/2023 6: 30 PM CDT US VEIN DUPLEX LOWER EXTREMITY BILATERAL COMPLETE ED Urgent/IP Urgent 04/28/2023 5:49 PM CDT XR ABDOMEN AP 1 VIEW ED Urgent/IP Urgent 04/28/2023 4:36 PM CDT ECG 12-LEAD STAT 04/28/2023 4:20 PM CDT HISTOPLASMA ANTIGEN STAT 04/28/2023 2 :38 PM CDT HISTOPLASMA ANTIBODY STAT 04/28/2023 2:38 PM CDT BLASTOMYCES ANTIBODY, EIA, S STAT 04/28/2023 2:38 PM CDT B CHECK SAMPLE STAT 04/28/2023 2:38 PM CDT IRON PROFILE W/ IBC STAT 04/28/2023 2 :38 PM CDT URINALYSIS AND REFLEX TO MICROSCOPIC AND CULTURE STAT 04/28/2023 2:38 PM CDT CRYPTOCOCCAL ANTIGEN, SERUM STAT 04/28/2023 2:38 PM CDT ASPERGILLUS GALACTOMANNAN ANTIGEN STAT 04/28/2023 2:38 PM CDT BLOOD CULTURE STAT 04/28/2023 2:38 PM CDT URINALYSIS, MICROSCOPIC ONLY STAT 04/28/2023 2:38 PM CDT FERRITIN STAT 04/28/2023 2:38 PM CDT VANCOMYCIN LEVEL RANDOM STAT 04/28/2023 2:38 PM CDT XR CHEST 1 VIEW ED Urgent/IP Urgent 04/28/2023 1:35 PM CDT EGFR STAT 04/28/2023 12:52 PM CDT DIFFERENTIAL AUTO STAT 04/28/2023 12: 52 PM CDT CBC WITH AUTO DIFFERENTIAL STAT 04/28/2023 12:52 PM CDT ERYTHROCYTE SEDIMENTATION RATE STAT 04/28/2023 12:52 PM CDT TYPE AND SCREEN STAT 04/28/2023 12:52 PM CDT PHOSPHORUS STAT 04/28/2023 12:52 PM CDT MAGNESIUM STAT 04/28/2023 12:52 PM CDT COMPREHENSIVE METABOLIC PANEL STAT 04/28/2023 12:52 PM CDT documented in this encounter Results * (ABNORMAL) Comprehensive metabolic panel (05/13/2023 11:45 AM TAPE WEAVER) Sodium 139 135 - 145 mmol/L [facility] Comment:Testing performed by : [facility], [address] [place] [phone] Potassium, pl 3.8 3.3 - 4.9 mmol/L [facility] Comment:Testing performed by : [facility], [address] [place] [phone] Chloride 105 97 - 110 mmol/L [facility] Comment:Testing performed by : [facility], [address] [place] [phone] CO2 28 22 - 32 mmol/L [facility] Comment:Testing performed by : [facility], [address] [place] [phone] Anion gap 6 2 - 15 mmol/L [facility] Comment:Testing performed by : [facility], [address] [place] [phone] BUN 12 6 - 25 mg/dL [facility] Comment:Testing performed by : [facility], [address] [place] [phone] Creatinine 0.51(L) 0.80 - 1.30 mg/dL [facility] Comment:Testing performed by : [facility], [address] [place] [phone] Glucose 89 70 - 199 mg/dL [facility] Comment: [...] was last revised 2022. Testing performed by: [facility], [address] [place] [phone] Calcium 8.7 8.5 - 10.3 mg/dL [facility] Comment:Testing performed by : [facility], [address] [place] [phone] Bilirubin, total 0.2 0.1 - 1.2 mg/dL [facility] Comment:Testing performed by : [facility], [address] [place] [phone] Protein, pl 6.2(L) 6.5 - 8.5 g/dL [facility] Comment:Testing performed by : [facility], [address] [place] [phone] Albumin 3.2(L) 3.5 - 5.0 g/dL [facility] Comment:Testing performed by : [address] [phone] Alk phos 126 40 - 130 Units/L [facility] Comment:Testing performed by : [facility], [address] [place] [phone] ALT 9 7 - 55 Units/L [facility] Comment:Testing performed by : [facility], [address] [place] [phone] AST 12 10 - 50 Units/L [facility] Comment:Testing performed by : [facility], [address] [place] [phone] Blood 05/13/2023 11:4 5 AM TAPE WEAVER 05/13/2023 11:47 AM TAPE WEAVER us Shasta Sena MD LAB BLOOD ORDERABLES Final Result [facility] Department [place] [address] * (ABNORMAL) CBC with auto differential (05/13/2023 11:45 AM TAPE WEAVER) WBC 2.8(L) 3.8 - 9.8 K/cumm [facility] Comment:Testing performed by : [facility], [address] [place] [phone] Hgb 7.1(L) 13.8 - 17.2 g/dL [facility] Comment: Interpretive Data A reference range for this assay has not been established for patients with an unknown legal sex. Please refer to the laboratory test catalog for established sex-specific reference intervals. Current interpretive data was last revised on 2023. Testing performed by: [facility], [address] [place] [phone] Hct 21.9(L) 40.7 - 50.3 % [facility] Comment: Interpretive Data A reference range for this assay has not been established for patients with an unknown legal sex. Please refer to the laboratory test catalog for established sex-specific reference intervals. Current interpretive data was last revised on 2023. Testing performed by: [address] [phone] Plt 208 140 - 440 K/cumm [facility] Comment:Testing performed by : [facility], [address] [place] [phone] MPV 6.6(L) 6.8 - 10.4 fL [facility] Comment:Testing performed by : [place] [phone] RBC 2.90(L) 4.50 - 5.70 M/cumm [facility] Comment: Interpretive Data A reference range for this assay has not been established for patients with an unknown legal sex. Please refer to the laboratory test catalog for established sex-specific reference intervals. Current interpretive data was last revised on 2023. Testing performed by: [place] [phone] MCV 75.7(L) 80.0 - 97.6 fL [facility] Comment:Testing performed by : [address] [phone] MCH 24.4(L) 26.7 - 33.7 pg [facility] Comment:Testing performed by : [place] [phone] MCHC 32.3(L) 32.7 - 35.5 g/dL [facility] Comment:Testing performed by : [address] [phone] RDW CV 24.6(H) 11.8 - 14.6 % [facility] Comment:Testing performed by : [address] [phone] NRBC abs 0.00 0.00 - 0.01 K/cumm [facility]HCAELA [facility]J Comment:Testing performed by : [address] [phone] Blood 05/13/2023 11:4 5 AM TAPE WEAVER 05/13/2023 11:47 AM TAPE WEAVER us Shasta Sena MD LAB BLOOD ORDERABLES Final Result [facility] [place] [address] * eGFR (05/05/2023 3:27 AM CDT) eGFR >90 90 - 130 mL/min/1. 73 m2 [facility] Comment: Interpretive [...] Current interpretive data was last reviewed 2021. Blood 05/05/2023 3:27 AM CDT 05/05/2023 3:53 AM CDT us Richmond Ho MD LAB BLOOD ORDERABLES F inal Result [facility] Department [place] [address] * (ABNORMAL) Differential, auto (05/05/2023 3:27 AM CDT) Pathologist [facility] Neutrophil abs 10.8(H) 1.7 - 6.5 K/cumm [facility] Imm gran abs 0.3(H) 0.0 - 0.1 K/cumm [facility] Lymphocyte abs 0.1(L) 0.8 - 3.3 K/cumm [facility] Monocyte abs 0.6 0.2 - 0.8 K/cumm [facility] Eosinophil abs 0.0 0.0 - 0.5 K/cumm [facility] Basophil abs 0.0 0.0 - 0.1 K/cumm [facility] Neutrophil pct 91.5 % [facility] Comment: Interpretive Data Percent cell count reference ranges are not reported, since discordance with absolute values may lead to misinterpretation of CBC data. Current Interpretive Data was last revised on 2017. Imm gran pct 2.3 % [facility] Comment: Interpretive Data Percent cell count reference ranges are not reported, since discordance with absolute values may lead to misinterpretation of CBC data. Current Interpretive Data was last revised on 2017. Lymphocyte pct 0.7 % [facility] Comment: Interpretive Data Percent cell count reference ranges are not reported, since discordance with absolute values may lead to misinterpretation of CBC data. Current Interpretive Data was last revised on 2017. Monocyte pct 5.4 % [facility] Comment: Interpretive Data Percent cell count reference ranges are not reported, since discordance with absolute values may lead to misinterpretation of CBC data. Current Interpretive Data was last revised on 2017. Eosinophil pct 0.1 % [facility] Comment: Interpretive Data Percent cell count reference ranges are not reported, since discordance with absolute values may lead to misinterpretation of CBC data. Current Interpretive Data was last revised on 2017. Basophil pct 0.0 % [facility] Comment: Interpretive Data Percent cell count reference ranges are not reported, since discordance with absolute values may lead to misinterpretation of CBC data. Current Interpretive Data was last revised on 2017. Blood 05/05/2023 3:27 AM CDT 05/05/2023 3:53 AM CDT us Richmond Ho MD LAB BLOOD ORDERABLES F inal Result [facility] Department [place] [address] * Phosphorus (05/05/2023 3:27 AM CDT) Phosphorus, pl 2.9 2.3 - 4.5 mg/dL [facility] Blood 05/05/2023 3:27 AM CDT 05/05/2023 3:53 AM CDT us Richmond Ho MD LAB BLOOD ORDERABLES F inal Result [facility] Department [place] [address] * (ABNORMAL) Comprehensive metabolic panel (05/05/2023 3:27 AM CDT) Sodium 139 135 - 145 mmol/L [facility] Potassium, pl 4.5 3.3 - 4.9 mmol/L [facility] Chloride 103 97 - 110 mmol/L [facility] CO2 33(H) 22 - 32 mmol/L [facility] Anion gap 3 2 - 15 mmol/L [facility] BUN 18 6 - 25 mg/dL [facility] Creatinine 0.64(L) 0.80 - 1.30 mg/dL [facility] Glucose 114 70 - 199 mg/dL [facility] Comment: Interpretive Data Fasting glucose [...] Current interpretive data was last revised 2022. Calcium 7.5(L) 8.5 - 10.3 mg/dL [facility] Bilirubin, total 0.3 0.1 - 1.2 mg/dL [facility] Protein, pl 5.1(L) 6.5 - 8.5 g/dL [facility] Albumin 2.5(L) 3.5 - 5.0 g/dL [facility] Alk phos 115 40 - 130 Units/L [facility] ALT 11 7 - 55 Units/L [facility] AST 12 10 - 50 Units/L [facility] Blood 05/05/2023 3:27 AM CDT 05/05/2023 3:53 AM CDT Richmond Ho MD LAB BLOOD ORDERABLES F inal Result Performing Organization Address City/[facility]/ZIP Co de Phone Number [facility] [place] [address] * Magnesium (05/05/2023 3:27 AM CDT) Pathologist [facility] Magnesium 1.8 1.4 - 2.5 mg/dL [facility] Blood 05/05/2023 3:27 AM CDT 05/05/2023 3:53 AM CDT Richmond Ho MD LAB BLOOD ORDERABLES F inal Result Performing Organization Address City/[facility] [[email or web address]] Co de Phone Number [facility] [place] [address] * (ABNORMAL) CBC with auto differential (05/05/2023 3:27 AM CDT) WBC 11.8(H) 3.8 - 9.9 K/cumm [facility] Hgb 7.9(L) 13.0 - 17.5 g/dL [facility] Comment: Interpretive Data A reference range for this assay has not been established for patients with an unknown legal sex. Please refer to the laboratory test catalog for established sex-specific reference intervals. Current interpretive data was last revised on 2023. Hct 26.2(L) 38.9 - 50.3 % [facility] Comment: Interpretive Data A reference range for this assay has not been established for patients with an unknown legal sex. Please refer to the laboratory test catalog for established sex-specific reference intervals. Current interpretive data was last revised on 2023. Plt 309 150 - 400 K/cumm [facility] MPV 9.7 9.1 - 12.3 fL [facility] RBC 3.31(L) 4.30 - 5.80 M/cumm [facility] Comment: Interpretive Data A reference range for this assay has not been established for patients with an unknown legal sex. Please refer to the laboratory test catalog for established sex-specific reference intervals. Current interpretive data was last revised on 2023. MCV 79.2(L) 81.3 - 96.4 fL [facility] MCH 23.9(L) 27.1 - 33.3 pg [facility] MCHC 30.2(L) 32.3 - 35.7 g/dL [facility] RDW CV 20.9(H) 11.1 - 14.9 % [facility] RDW SD 52.4(H) 35.7 - 48.1 fL [facility] NRBC abs 0.00 0.00 - 0.01 K/cumm [facility] Blood 05/05/2023 3:27 AM CDT 05/05/2023 3:53 AM CDT us Richmond Ho MD LAB BLOOD ORDERABLES F inal Result [facility] Department [place] [address] * Vancomycin level trough Draw 30 minutes prior to AM dose (05/04/2023 6:40 AM CDT) [facility] Vancomycin trough 14.0 10.0 - 20.0 mcg/mL [facility] Blood 05/04/2023 6:40 AM CDT 05/04/2023 6:48 AM CDT Narrative [facility] - 05/04/2023 7:45 AM CDT Draw 30 minutes prior to AM dose us Armando Castillo MD LAB BLOOD ORDERABLES Final Result Performing Organization Address [facility] [[email or web address]] Co de Phone Number [facility] Department [place] [address] * eGFR (05/04/2023 3:19 AM CDT) eGFR >90 90 - 130 mL/min/1. 73 m2 [facility] Comment: Interpretive Data Reference Interval Normal ?>/= [...] Current interpretive data was last reviewed 2021. Blood 05/04/2023 3:19 AM CDT 05/04/2023 4:00 AM CDT us Richmond Ho MD LAB BLOOD ORDERABLES F inal Result Performing Organization Address [facility] [[email or web address]] Co de Phone Number [facility] Department [place] [address] * (ABNORMAL) Differential, auto (05/04/2023 3:19 AM CDT) Neutrophil abs 12.8(H) 1.7 - 6.5 K/cumm [facility] Imm gran abs 0.3(H) 0.0 - 0.1 K/cumm [facility] Lymphocyte abs 0.3(L) 0.8 - 3.3 K/cumm [facility] Monocyte abs 1.0(H) 0.2 - 0.8 K/cumm [facility] Eosinophil abs 0.1 0.0 - 0.5 K/cumm [facility] Basophil abs 0.0 0.0 - 0.1 K/cumm [facility] Neutrophil pct 88.4 % [facility] Comment: Interpretive Data Percent cell count reference ranges are not reported, since discordance with absolute values may lead to misinterpretation of CBC data. Current Interpretive Data was last revised on 2017. Imm gran pct 2.3 % [facility] Comment: Interpretive Data Percent cell count reference ranges are not reported, since discordance with absolute values may lead to misinterpretation of CBC data. Current Interpretive Data was last revised on 2017. Lymphocyte pct 1.9 % [facility] Comment: Interpretive Data Percent cell count reference ranges are not reported, since discordance with absolute values may lead to misinterpretation of CBC data. Current Interpretive Data was last revised on 2017. Monocyte pct 7.0 % [facility] Comment: Interpretive Data Percent cell count reference ranges are not reported, since discordance with absolute values may lead to misinterpretation of CBC data. Current Interpretive Data was last revised on 2017. Eosinophil pct 0.3 % [facility] Comment: Interpretive Data Percent cell count reference ranges are not reported, since discordance with absolute values may lead to misinterpretation of CBC data. Current Interpretive Data was last revised on 2017. Basophil pct 0.1 % [facility] Comment: Interpretive Data Percent cell count reference ranges are not reported, since discordance with absolute values may lead to misinterpretation of CBC data. Current Interpretive Data was last revised on 2017. Blood 05/04/2023 3:19 AM CDT 05/04/2023 4:01 AM CDT Richmond Ho MD LAB BLOOD ORDERABLES F inal Result Performing Organization Address City/[facility]/ZIP Co de Phone Number [facility] Department [place] [address] * (ABNORMAL) Phosphorus (05/04/2023 3:19 AM CDT) Pathologist [facility] Phosphorus, pl 1.5(L) 2.3 - 4.5 mg/dL [facility] Blood 05/04/2023 3:19 AM CDT 05/04/2023 4:00 AM CDT Richmond Ho MD LAB BLOOD ORDERABLES F inal Result Performing Organization Address [facility] de Phone Number [facility] Department [place] [address] * (ABNORMAL) Comprehensive metabolic panel (05/04/2023 3:19 AM CDT) [facility] Sodium 139 135 - 145 mmol/L [facility] Potassium, pl 3.9 3.3 - 4.9 mmol/L [facility] Chloride 102 97 - 110 mmol/L [facility] CO2 35(H) 22 - 32 mmol/L [facility] Anion gap 2 2 - 15 mmol/L [facility] BUN 13 6 - 25 mg/dL [facility] Creatinine 0.71(L) 0.80 - 1.30 mg/dL [facility] Glucose 108 70 - 199 mg/dL [facility] Comment: Interpretive Data Fasting glucose [...] Current interpretive data was last revised 2022. Calcium 7.7(L) 8.5 - 10.3 mg/dL [facility] Bilirubin, total 0.2 0.1 - 1.2 mg/dL [facility] Protein, pl 5.0(L) 6.5 - 8.5 g/dL [facility] Albumin 2.4(L) 3.5 - 5.0 g/dL [facility] Alk phos 122 40 - 130 Units/L [facility] ALT 12 7 - 55 Units/L [facility] AST 11 10 - 50 Units/L [facility] Blood 05/04/2023 3:19 AM CDT 05/04/2023 4:00 AM CDT Richmond Ho MD LAB BLOOD ORDERABLES F inal Result Performing Organization Address City/[facility] [[email or web address]] Co de Phone Number [facility] Department [place] [address] * Magnesium (05/04/2023 3:19 AM CDT) Pathologist [facility] Magnesium 1.6 1.4 - 2.5 mg/dL [facility] Blood 05/04/2023 3:19 AM CDT 05/04/2023 4:00 AM CDT Richmond Ho MD LAB BLOOD ORDERABLES F inal Result Performing Organization Address City/[facility]/ZIP Co de Phone Number [facility] Department [place] [address] * (ABNORMAL) CBC with auto differential (05/04/2023 3:19 AM CDT) Pathologist [facility] WBC 14.5(H) 3.8 - 9.9 K/cumm [facility] Hgb 7.7(L) 13.0 - 17.5 g/dL [facility] Comment: Interpretive Data A reference range for this assay has not been established for patients with an unknown legal sex. Please refer to the laboratory test catalog for established sex-specific reference intervals. Current interpretive data was last revised on 2023. Hct 25.8(L) 38.9 - 50.3 % [facility] Comment: Interpretive Data A reference range for this assay has not been established for patients with an unknown legal sex. Please refer to the laboratory test catalog for established sex-specific reference intervals. Current interpretive data was last revised on 2023. Plt 374 150 - 400 K/cumm [facility] MPV 9.0(L) 9.1 - 12.3 fL [facility] RBC 3.33(L) 4.30 - 5.80 M/cumm [facility] Comment: Interpretive Data A reference range for this assay has not been established for patients with an unknown legal sex. Please refer to the laboratory test catalog for established sex-specific reference intervals. Current interpretive data was last revised on 2023. MCV 77.5(L) 81.3 - 96.4 fL [facility] MCH 23.1(L) 27.1 - 33.3 pg [facility] MCHC 29.8(L) 32.3 - 35.7 g/dL [facility] RDW CV 19.7(H) 11.1 - 14.9 % [facility] RDW SD 47.2 35.7 - 48.1 fL [facility] NRBC abs 0.02(H) 0.00 - 0.01 K/cumm [facility] Blood 05/04/2023 3:19 AM CDT 05/04/2023 4:01 AM CDT us Richmond Ho MD LAB BLOOD ORDERABLES F inal Result [facility] [place] [address] * eGFR (05/03/2023 12:34 AM CDT) Pathologist [facility] eGFR >90 90 - 130 mL/min/1. 73 m2 [facility] Comment: Interpretive Data Reference Interval Normal ?>/= [...] Current interpretive data was last reviewed 2021. Blood 05/03/2023 12:3 4 AM CDT 05/03/2023 12:51 AM CDT us Richmond Ho MD LAB BLOOD ORDERABLES F inal Result [facility] [place] [address] * (ABNORMAL) Differential, auto (05/03/2023 12:34 AM CDT) Neutrophil abs 16.5(H) 1.7 - 6.5 K/cumm [facility] Imm gran abs 0.2(H) 0.0 - 0.1 K/cumm [facility] Lymphocyte abs 0.1(L) 0.8 - 3.3 K/cumm [facility] Monocyte abs 1.0(H) 0.2 - 0.8 K/cumm [facility] Eosinophil abs 0.0 0.0 - 0.5 K/cumm [facility] Basophil abs 0.0 0.0 - 0.1 K/cumm [facility] Neutrophil pct 92.1 % [facility] Comment: Interpretive Data Percent cell count reference ranges are not reported, since discordance with absolute values may lead to misinterpretation of CBC data. Current Interpretive Data was last revised on 2017. Imm gran pct 1.3 % [facility] Comment: Interpretive Data Percent cell count reference ranges are not reported, since discordance with absolute values may lead to misinterpretation of CBC data. Current Interpretive Data was last revised on 2017. Lymphocyte pct 0.7 % [facility] Comment: Interpretive Data Percent cell count reference ranges are not reported, since discordance with absolute values may lead to misinterpretation of CBC data. Current Interpretive Data was last revised on 2017. Monocyte pct 5.8 % [facility] Comment: Interpretive Data Percent cell count reference ranges are not reported, since discordance with absolute values may lead to misinterpretation of CBC data. Current Interpretive Data was last revised on 2017. Eosinophil pct 0.0 % [facility] Comment: Interpretive Data Percent cell count reference ranges are not reported, since discordance with absolute values may lead to misinterpretation of CBC data. Current Interpretive Data was last revised on 2017. Basophil pct 0.1 % [facility] Comment: Interpretive Data Percent cell count reference ranges are not reported, since discordance with absolute values may lead to misinterpretation of CBC data. Current Interpretive Data was last revised on 2017. Blood 05/03/2023 12:3 4 AM CDT 05/03/2023 12:52 AM CDT us Richmond Ho MD LAB BLOOD ORDERABLES F inal Result [facility] Department [place] [address] * (ABNORMAL) Phosphorus (05/03/2023 12:34 AM CDT) Phosphorus, pl 1.4(L) 2.3 - 4.5 mg/dL [facility] Blood 05/03/2023 12:3 4 AM CDT 05/03/2023 12:51 AM CDT us Richmond Ho MD LAB BLOOD ORDERABLES F inal Result [facility] Department [place] [address] * (ABNORMAL) Comprehensive metabolic panel (05/03/2023 12:34 AM CDT) Pathologist [facility] Sodium 137 135 - 145 mmol/L [facility] Potassium, pl 4.1 3.3 - 4.9 mmol/L [facility] Chloride 102 97 - 110 mmol/L [facility] CO2 29 22 - 32 mmol/L [facility] Anion gap 6 2 - 15 mmol/L [facility] BUN 11 6 - 25 mg/dL [facility] Creatinine 0.62(L) 0.80 - 1.30 mg/dL [facility] Glucose 174 70 - 199 mg/dL [facility] Comment: Interpretive Data Fasting glucose [...] Current interpretive data was last revised 2022. Calcium 7.9(L) 8.5 - 10.3 mg/dL [facility] Bilirubin, total 0.2 0.1 - 1.2 mg/dL [facility] Protein, pl 5.6(L) 6.5 - 8.5 g/dL [facility] Albumin 2.6(L) 3.5 - 5.0 g/dL [facility] Alk phos 137(H) 40 - 130 Units/L [facility] ALT 11 7 - 55 Units/L [facility] AST 15 10 - 50 Units/L [facility] Blood 05/03/2023 12:3 4 AM CDT 05/03/2023 12:51 AM CDT Richmond Ho MD LAB BLOOD ORDERABLES F inal Result Performing Organization Address [facility] [[email or web address]] Co de Phone Number [facility] [place] [address] * Magnesium (05/03/2023 12:34 AM CDT) Pathologist [facility] Magnesium 1.8 1.4 - 2.5 mg/dL [facility] Blood 05/03/2023 12:3 4 AM CDT 05/03/2023 12:51 AM CDT Richmond Ho MD LAB BLOOD ORDERABLES F inal Result Performing Organization Address [facility] de Phone Number [facility] [place] [address] * (ABNORMAL) CBC with auto differential (05/03/2023 12:34 AM CDT) Pathologist [facility] WBC 17.9(H) 3.8 - 9.9 K/cumm [facility] Hgb 8.0(L) 13.0 - 17.5 g/dL [facility] Comment: Interpretive Data A reference range for this assay has not been established for patients with an unknown legal sex. Please refer to the laboratory test catalog for established sex-specific reference intervals. Current interpretive data was last revised on 2023. Hct 26.3(L) 38.9 - 50.3 % [facility] Comment: Interpretive Data A reference range for this assay has not been established for patients with an unknown legal sex. Please refer to the laboratory test catalog for established sex-specific reference intervals. Current interpretive data was last revised on 2023. Plt 412(H) 150 - 400 K/cumm [facility] MPV 8.6(L) 9.1 - 12.3 fL [facility] RBC 3.45(L) 4.30 - 5.80 M/cumm [facility] Comment: Interpretive Data A reference range for this assay has not been established for patients with an unknown legal sex. Please refer to the laboratory test catalog for established sex-specific reference intervals. Current interpretive data was last revised on 2023. MCV 76.2(L) 81.3 - 96.4 fL [facility] MCH 23.2(L) 27.1 - 33.3 pg [facility] MCHC 30.4(L) 32.3 - 35.7 g/dL [facility] RDW CV 18.6(H) 11.1 - 14.9 % [facility] RDW SD 46.3 35.7 - 48.1 fL [facility] NRBC abs 0.00 0.00 - 0.01 K/cumm [facility] Blood 05/03/2023 12:3 4 AM CDT 05/03/2023 12:52 AM CDT us Richmond Ho MD LAB BLOOD ORDERABLES F inal Result Performing Organization Address City/[facility]/ZIP Co de Phone Number [facility] Department [place] [address] * (ABNORMAL) Uric acid (05/03/2023 12:34 AM CDT) Uric acid 2.1(L) 3.0 - 8.0 mg/dL [facility] Blood 05/03/2023 12:3 4 AM CDT 05/03/2023 12:51 AM CDT us Armando Castillo MD LAB [place] [address] * (ABNORMAL) Protime-INR (05/03/2023 12:34 AM CDT) PT 15.9(H) 10.3 - 13.7 sec [facility] INR 1.39(H) 0.90 - 1.20 [facility] Comment: Interpretive data Oral anticoagulant therapeutic ranges: Venous thromboembolism prophylaxis or treatment: 2.0-3.0 CARDIOLOGY Standard range: 2.0-3.0 High-intensity range: 2.5-3.5 Refer to indication-specific guidelines for appropriate target ranges for prosthetic heart valve replacement. Current interpretive data was last revised on 2019. Blood 05/03/2023 12:3 4 AM CDT 05/03/2023 12:49 AM CDT Richmond Ho MD LAB BLOOD ORDERABLES F inal Result Performing Organization Address City/[facility] [[email or web address]] [place] [address] * aPTT (05/03/2023 12:34 AM CDT) Pathologist [facility] aPTT 35 28 - 38 sec [facility] Comment: Interpretive Data Heparin therapeutic range: 66.0 - 100.0 seconds. Range based on correlation with therapeutic heparin activity range of 0.3 - 0.7 Units/mL. Current interpretive data was last revised on 2023. Blood 05/03/2023 12:3 4 AM CDT 05/03/2023 12:49 AM CDT us Richmond Ho MD LAB BLOOD ORDERABLES F inal Result Performing Organization Address City/State/[facility] [[email or web address]] [place] [address] * Type and screen (05/03/2023 12:34 AM CDT) [facility] ABO Rh O Positive Long, indirect Negative [facility] Blood 05/03/2023 12:3 4 AM CDT 05/03/2023 1:16 AM CDT Narrative [facility] - 05/03/2023 3:02 AM CDT Has the patient had Daratumumab or Isatuximab in the past 6 months?->Unknown Richmond Ho MD LAB BLOOD BANK TEST OR DERABLES Final Result Performing Organization Address [facility] [[email or web address]] Co de Phone Number [facility] Department [place] [address] * Vancomycin level trough Draw 30 minutes prior to AM dose (05/02/2023 6:25 AM CDT) [facility] Vancomycin trough 13.1 10.0 - 20.0 mcg/mL [facility] Blood 05/02/2023 6:25 AM CDT 05/02/2023 6:40 AM CDT Narrative [facility] - 05/02/2023 7:10 AM CDT Draw 30 minutes prior to AM dose Armando Castillo MD LAB BLOOD ORDERABLES Final Result Performing Organization Address [facility] [[email or web address]] Co de Phone Number [facility] Department [place] [address] * eGFR (05/02/2023 12:37 AM CDT) [facility] eGFR >90 90 - 130 mL/min/1. 73 m2 [facility] Comment: Interpretive Data Reference Interval Normal ?>/= [...] Current interpretive data was last reviewed 2021. Blood 05/02/2023 12:3 7 AM CDT 05/02/2023 12:53 AM CDT us Richmond Ho MD LAB BLOOD ORDERABLES F inal Result [facility] Department [place] [address] * (ABNORMAL) Differential, auto (05/02/2023 12:37 AM CDT) Neutrophil abs 17.5(H) 1.7 - 6.5 K/cumm [facility] Imm gran abs 0.3(H) 0.0 - 0.1 K/cumm [facility] Lymphocyte abs 0.1(L) 0.8 - 3.3 K/cumm [facility] Monocyte abs 0.8 0.2 - 0.8 K/cumm [facility] Eosinophil abs 0.0 0.0 - 0.5 K/cumm [facility] Basophil abs 0.0 0.0 - 0.1 K/cumm [facility] Neutrophil pct 93.3 % [facility] Comment: Interpretive Data Percent cell count reference ranges are not reported, since discordance with absolute values may lead to misinterpretation of CBC data. Current Interpretive Data was last revised on 2017. Imm gran pct 1.5 % [facility] Comment: Interpretive Data Percent cell count reference ranges are not reported, since discordance with absolute values may lead to misinterpretation of CBC data. Current Interpretive Data was last revised on 2017. Lymphocyte pct 0.7 % [facility] Comment: Interpretive Data Percent cell count reference ranges are not reported, since discordance with absolute values may lead to misinterpretation of CBC data. Current Interpretive Data was last revised on 2017. Monocyte pct 4.4 % [facility] Comment: Interpretive Data Percent cell count reference ranges are not reported, since discordance with absolute values may lead to misinterpretation of CBC data. Current Interpretive Data was last revised on 2017. Eosinophil pct 0.0 % [facility] Comment: Interpretive Data Percent cell count reference ranges are not reported, since discordance with absolute values may lead to misinterpretation of CBC data. Current Interpretive Data was last revised on 2017. Basophil pct 0.1 % [facility] Comment: Interpretive Data Percent cell count reference ranges are not reported, since discordance with absolute values may lead to misinterpretation of CBC data. Current Interpretive Data was last revised on 2017. Blood 05/02/2023 12:3 7 AM CDT 05/02/2023 12:53 AM CDT Richmond Ho MD LAB BLOOD ORDERABLES F inal Result [facility] Department [place] [address] * (ABNORMAL) Phosphorus (05/02/2023 12:37 AM CDT) Phosphorus, pl 1.9(L) 2.3 - 4.5 mg/dL [facility] Blood 05/02/2023 12:3 7 AM CDT 05/02/2023 12:53 AM CDT us Richmond Ho MD LAB BLOOD ORDERABLES F inal Result [facility] Department [place] [address] * (ABNORMAL) Comprehensive metabolic panel (05/02/2023 12:37 AM CDT) Sodium 141 135 - 145 mmol/L [facility] Potassium, pl 4.1 3.3 - 4.9 mmol/L [facility] Chloride 106 97 - 110 mmol/L [facility] CO2 30 22 - 32 mmol/L [facility] Anion gap 5 2 - 15 mmol/L [facility] BUN 13 6 - 25 mg/dL [facility] Creatinine 0.65(L) 0.80 - 1.30 mg/dL [facility] Glucose 136 70 - 199 mg/dL [facility] Comment: Interpretive Data Fasting glucose [...] Current interpretive data was last revised 2022. Calcium 8.1(L) 8.5 - 10.3 mg/dL [facility] Bilirubin, total 0.2 0.1 - 1.2 mg/dL [facility] Protein, pl 5.5(L) 6.5 - 8.5 g/dL [facility] Albumin 2.5(L) 3.5 - 5.0 g/dL [facility] Alk phos 147(H) 40 - 130 Units/L [facility] ALT 9 7 - 55 Units/L [facility] AST 11 10 - 50 Units/L [facility] Blood 05/02/2023 12:3 7 AM CDT 05/02/2023 12:53 AM CDT us Richmond Ho MD LAB BLOOD ORDERABLES F inal Result [facility] [place] [address] * Magnesium (05/02/2023 12:37 AM CDT) [facility] Magnesium 1.8 1.4 - 2.5 mg/dL [facility] Blood 05/02/2023 12:3 7 AM CDT 05/02/2023 12:53 AM CDT Richmond Ho MD LAB BLOOD ORDERABLES F inal Result Performing Organization Address [facility] [[email or web address]] Co de Phone Number [facility] [place] [address] * (ABNORMAL) CBC with auto differential (05/02/2023 12:37 AM CDT) [facility] WBC 18.8(H) 3.8 - 9.9 K/cumm [facility] Hgb 7.6(L) 13.0 - 17.5 g/dL [facility] Comment: Interpretive Data A reference range for this assay has not been established for patients with an unknown legal sex. Please refer to the laboratory test catalog for established sex-specific reference intervals. Current interpretive data was last revised on 2023. Hct 25.0(L) 38.9 - 50.3 % [facility] Comment: Interpretive Data A reference range for this assay has not been established for patients with an unknown legal sex. Please refer to the laboratory test catalog for established sex-specific reference intervals. Current interpretive data was last revised on 2023. Plt 440(H) 150 - 400 K/cumm [facility] MPV 8.8(L) 9.1 - 12.3 fL [facility] RBC 3.34(L) 4.30 - 5.80 M/cumm [facility] Comment: Interpretive Data A reference range for this assay has not been established for patients with an unknown legal sex. Please refer to the laboratory test catalog for established sex-specific reference intervals. Current interpretive data was last revised on 2023. MCV 74.9(L) 81.3 - 96.4 fL [facility] MCH 22.8(L) 27.1 - 33.3 pg [facility] MCHC 30.4(L) 32.3 - 35.7 g/dL [facility] RDW CV 18.3(H) 11.1 - 14.9 % [facility] RDW SD 46.5 35.7 - 48.1 fL [facility] NRBC abs 0.00 0.00 - 0.01 K/cumm [facility] Blood 05/02/2023 12:3 7 AM CDT 05/02/2023 12:53 AM CDT us Richmond Ho MD LAB BLOOD ORDERABLES F inal Result [facility] Department [place] [address] * Oxycodone Confirmation, Urine (05/01/2023 3:54 PM CDT) Pathologist [facility] Oxycodone Conf, Ur Confirmed Positive CutOff 50 ng/mL [facility] Oxymorphone Conf, Ur Does Not Confirm CutOff 50 ng/mL [facility] Comment: Interpretive Data This test detects the presence or absence of drug compounds using LC Tandem mass spectrometry and is not intended to assess compliance with prescribed medications. While this test is highly specific, false positive and false negative results may occur in very rare circumstances. Contact the laboratory for consultation, if needed. Performance characteristics were determined by the [facility] in a manner consistent with CLIA requirement and has not been cleared or approved by the U.S. Food and Drug Administration. Current interpretive data was last revised 2020. Urine 05/01/2023 3:54 PM CDT 05/01/2023 5:44 PM CDT us Shasta Sena MD LAB URINE ORDERABLES Final Result Performing Organization Address City/[facility]/ZIP Co de Phone Number [facility] Department [place] [address] * Opiates Confirmation, Urine (05/01/2023 3:54 PM CDT) Codeine Conf, Ur Does Not Confirm CutOff 50 ng/mL [facility] 6- Acetylmorphine Conf, Ur Does Not Confirm CutOff 10 ng/mL [facility] Hydrocodone Conf, Ur Does Not Confirm CutOff 50 ng/mL [facility] Morphine Conf, Ur Confirmed Positive CutOff 50 ng/mL [facility] Hydromorphone Conf, Ur Does Not Confirm CutOff 50 ng/mL [facility] Comment: Interpretive Data This test detects the presence or absence of drug compounds using LC Tandem mass spectrometry and is not intended to assess compliance with prescribed medications. While this test is highly specific, false positive and false negative results may occur in very rare circumstances. Contact the laboratory for consultation, if needed. Performance characteristics were determined by the [facility] in a manner consistent with CLIA requirement and has not been cleared or approved by the U.S. Food and Drug Administration. Current interpretive data was last revised 2020. Urine 05/01/2023 3:54 PM CDT 05/01/2023 5:44 PM CDT Shasta Sena MD LAB URINE ORDERABLES Final Result Performing Organization Address [facility] [[email or web address]] Co de Phone Number [facility] Department [place] [address] * Amphetamine Confirmation, Urine (05/01/2023 3:54 PM CDT) Amphetamine Conf, Ur Confirmed Positive CutOff 150ng/mL [facility] Methamphetamine Conf, Ur Confirmed Positive CutOff 150ng/mL [facility] MDA Conf, Ur Does Not Confirm CutOff 150ng/mL [facility] MDMA Conf, Ur Does Not Confirm CutOff 50 ng/mL [facility] MDEA Conf, Ur Does Not Confirm CutOff 150ng/mL [facility] MBDB Conf, Ur Does Not Confirm CutOff 150ng/mL [facility] Comment: Interpretive Data This test detects the presence or absence of drug compounds using LC Tandem mass spectrometry. While this test is highly specific, false positive and false negative results may occur in very rare circumstances. Contact the laboratory for consultation, if needed. Performance characteristics were determined by the [facility] in a manner consistent with CLIA requirement and has not been cleared or approved by the U.S. Food and Drug Administration. Current interpretive data was last revised on 2020. Urine 05/01/2023 3:54 PM CDT 05/01/2023 5:44 PM CDT us Shasta Sena MD LAB URINE ORDERABLES Final Result [facility] Department [place] [address] * Fentanyl Confirmation, Urine (05/01/2023 3:54 PM CDT) Fentanyl Conf, Ur Confirmed Positive Cutoff 0.3ng/mL [facility] Acetylfentanyl Conf, Ur Does Not Confirm Cutoff 1 ng/mL [facility] Acrylfentanyl Conf, Ur Does Not Confirm Cutoff 1 ng/mL [facility] Furanylfentanyl Conf, Ur Does Not Confirm Cutoff 1 ng/mL [facility] Fentanyl Metabolite (Norfentanyl) Conf, Ur Confirmed Positive CutOff 5 ng/mL [facility] Xylazine MS Does Not Confirm Cutoff 1 ng/mL [facility] Comment: Interpretive Data This test detects the presence or absence of drug compounds using LC Tandem mass spectrometry and is not intended to assess compliance with prescribed medications. While this test is highly specific, false positive and false negative results may occur in very rare circumstances. Contact the laboratory for consultation, if needed. Performance characteristics were determined by the [facility] in a manner consistent with CLIA requirement and has not been cleared or approved by the U.S. Food and Drug Administration. Current interpretive data was last revised 2020. Urine 05/01/2023 3:54 PM CDT 05/01/2023 5:44 PM CDT us Shasta Sena MD LAB URINE ORDERABLES Final Result [facility] Department [place] [address] * (ABNORMAL) Drugs of Abuse Screen, Urine with Reflex Confirmation (05/01/2023 3:54 PM CDT) Pathologist [facility] Amphetamine, ur Screen Positive, presumptive (A) CutOff 500ng/mL [facility] Comment: Interpretive Data - Amphetamines: ??Samples containing greater than 500 ng/mL d-methamphetamine ??or other cross-reacting amphetamine compounds are reported as positive. ??Amphetamine immunoassays are subject to significant false positive rates due to cross-reactivity of non-amphetamine drugs. Confirmatory testing required for definitive results. Current Interpretive Data was last reviewed 2023. Barbiturates, ur Not Detected CutOff 200ng/mL [facility] Comment: Interpretive Data - Barbiturates: ??Samples containing greater than 200 ng/mL secobarbital or other cross-reacting barbiturate compounds are reported as positive. ??False positive and false negative results are possible. Confirmatory testing required for definitive results. Current Interpretive Data was last reviewed 2023. Benzodiazepines, ur Screen Positive, presumptive (A) CutOff 100ng/mL [facility] Comment: Interpretive Data - Benzodiazepines: ??Samples containing greater than 100 ng/mL nordiazepam or other cross-reacting compounds are reported as positive. False positive and false negative results are possible. Confirmatory testing required for definitive results. Current Interpretive Data was last reviewed 2023. Cannabinoids, ur Screen Positive, presumptive (A) CutOff 50 ng/mL [facility] Comment: Interpretive Data - Cannabinoids: ??Samples containing greater than 50 ng/mL delta-9 THC -COOH or other cross-reacting compounds are reported as positive. ??False positive and false negative results are possible. ??Confirmatory testing required for definitive results. Current Interpretive Data was last reviewed 2023. Cocaine, ur Not Detected CutOff 150ng/mL [facility] Comment: Interpretive Data - Cocaine: ??Samples containing greater than 150 ng/mL benzoylecgonine or other cross-reacting compounds are reported as positive. False positive and false negative results are possible. Confirmatory testing required for definitive results. Current Interpretive Data was last reviewed 2023. Fentanyl, Ur Screen Positive, presumptive (A) Cutoff 1 ng/mL [facility] Comment: Interpretive Data - Fentanyl: ??Samples containing greater than 1 ng/mL fentanyl or other cross-reacting fentanyl compounds are reported as positive. ??False positive and false negative results are possible. Confirmatory testing required for definitive results. Current Interpretive Data was last reviewed 2023. Methadone, ur Not Detected CutOff 300ng/mL [facility] Comment: Interpretive Data - Methadone: ??Samples containing greater than 300 ng/mL d,l-methadone or other cross-reacting compounds are reported as positive. ??False positive and false negative results are possible. Confirmatory testing required for definitive results. Current Interpretive Data was last reviewed 2023. Opiates, ur Screen Positive, presumptive (A) CutOff 300ng/mL [facility] Comment: Interpretive Data - Opiates: ??Samples containing greater than 300 ng/mL morphine or other cross-reacting compounds are reported as positive. ??False positive and false negative results are possible. Confirmatory testing required for definitive results. Current Interpretive Data was last reviewed 2023. Oxycodone, ur Screen Positive, presumptive (A) CutOff 100ng/mL [facility] Comment: Interpretive Data - Oxycodone: ??Samples containing greater than 100 ng/mL oxycodone or other cross-reacting compounds are reported as ??positive. ??False positive and false negative results are possible. Confirmatory testing required for definitive results. Current Interpretive Data was last reviewed 2023. Phencyclidine, ur Not Detected CutOff 25 ng/mL [facility] Comment: Interpretive Data - Phencyclidine: ??Samples containing greater than 25 ng/mL phencyclidine or other cross-reacting compounds are reported as positive. ??False positive and false negative results are possible. Confirmatory testing required for definitive results. Current Interpretive Data was last reviewed 2023. Urine Creatinine 87 mg/dL [facility] Comment: Interpretive Data Urine Creatinine: < 10 mg/dL is extremely dilute = or > 10 but < 20 mg/dL is dilute = or > 20 mg/dL is normal Current Interpretive Data was last revised on 2017. Urine 05/01/2023 3:54 PM CDT 05/01/2023 5:44 PM CDT Narrative [facility] - 05/01/2023 6:24 PM CDT Drug of Abuse screening is performed by immunoassay for medical purposes only. ??This is not to be used for Pain Management purposes. ??If Detected, confirmation testing will be performed for Amphetamines, Cocaine, Fentanyl, Methadone, Opiates, Oxycodone or Phencyclidine. us Shasta Sena MD LAB URINE ORDERABLES Final Result Performing Organization Address City/State/[facility] [[email or web address]] Co de Phone Number [facility] Department [place] [address] * eGFR (05/01/2023 12:49 AM CDT) eGFR >90 90 - 130 mL/min/1. 73 m2 [facility] Comment: Interpretive Data Reference Interval Normal ?>/= [...] Current interpretive data was last reviewed 2021. Blood 05/01/2023 12:4 9 AM CDT 05/01/2023 1:03 AM CDT us Richmond Ho MD LAB BLOOD ORDERABLES F inal Result [facility] Department [place] [address] * (ABNORMAL) Differential, auto (05/01/2023 12:49 AM CDT) Neutrophil abs 17.3(H) 1.7 - 6.5 K/cumm [facility] Imm gran abs 0.3(H) 0.0 - 0.1 K/cumm [facility] Lymphocyte abs 0.1(L) 0.8 - 3.3 K/cumm [facility] Monocyte abs 1.0(H) 0.2 - 0.8 K/cumm [facility] Eosinophil abs 0.0 0.0 - 0.5 K/cumm [facility] Basophil abs 0.0 0.0 - 0.1 K/cumm [facility] Neutrophil pct 92.5 % [facility] Comment: Interpretive Data Percent cell count reference ranges are not reported, since discordance with absolute values may lead to misinterpretation of CBC data. Current Interpretive Data was last revised on 2017. Imm gran pct 1.4 % [facility] Comment: Interpretive Data Percent cell count reference ranges are not reported, since discordance with absolute values may lead to misinterpretation of CBC data. Current Interpretive Data was last revised on 2017. Lymphocyte pct 0.7 % [facility] Comment: Interpretive Data Percent cell count reference ranges are not reported, since discordance with absolute values may lead to misinterpretation of CBC data. Current Interpretive Data was last revised on 2017. Monocyte pct 5.3 % [facility] Comment: Interpretive Data Percent cell count reference ranges are not reported, since discordance with absolute values may lead to misinterpretation of CBC data. Current Interpretive Data was last revised on 2017. Eosinophil pct 0.0 % [facility] Comment: Interpretive Data Percent cell count reference ranges are not reported, since discordance with absolute values may lead to misinterpretation of CBC data. Current Interpretive Data was last revised on 2017. Basophil pct 0.1 % [facility] Comment: Interpretive Data Percent cell count reference ranges are not reported, since discordance with absolute values may lead to misinterpretation of CBC data. Current Interpretive Data was last revised on 2017. Blood 05/01/2023 12:4 9 AM CDT 05/01/2023 1:05 AM CDT Richmond Ho MD LAB BLOOD ORDERABLES F inal Result Performing Organization Address [facility]/ZIP Co de Phone Number [facility] Department [place] [address] * (ABNORMAL) Phosphorus (05/01/2023 12:49 AM CDT) Pathologist [facility] Phosphorus, pl 2.0(L) 2.3 - 4.5 mg/dL [facility] Blood 05/01/2023 12:4 9 AM CDT 05/01/2023 1:03 AM CDT Richmond oH MD LAB BLOOD ORDERABLES F inal Result [facility] [place] [address] * (ABNORMAL) Comprehensive metabolic panel (05/01/2023 12:49 AM CDT) Pathologist [facility] Sodium 141 135 - 145 mmol/L [facility] Potassium, pl 4.0 3.3 - 4.9 mmol/L [facility] Chloride 105 97 - 110 mmol/L [facility] CO2 30 22 - 32 mmol/L [facility] Anion gap 6 2 - 15 mmol/L [facility] BUN 16 6 - 25 mg/dL [facility] Creatinine 0.72(L) 0.80 - 1.30 mg/dL [facility] Glucose 199 70 - 199 mg/dL [facility] Comment: Interpretive Data Fasting glucose [...] Current interpretive data was last revised 2022. Calcium 7.7(L) 8.5 - 10.3 mg/dL [facility] Bilirubin, total 0.2 0.1 - 1.2 mg/dL [facility] Protein, pl 5.5(L) 6.5 - 8.5 g/dL [facility] Albumin 2.6(L) 3.5 - 5.0 g/dL [facility] Alk phos 172(H) 40 - 130 Units/L [facility] ALT 10 7 - 55 Units/L [facility] AST 13 10 - 50 Units/L [facility] Blood 05/01/2023 12:4 9 AM CDT 05/01/2023 1:03 AM CDT us Richmond Ho MD LAB BLOOD ORDERABLES F inal Result [facility] [place] [address] * Magnesium (05/01/2023 12:49 AM CDT) [facility] Magnesium 1.9 1.4 - 2.5 mg/dL [facility] Blood 05/01/2023 12:4 9 AM CDT 05/01/2023 1:03 AM CDT us Richmond Ho MD LAB BLOOD ORDERABLES F inal Result [facility] Department [place] [address] * (ABNORMAL) CBC with auto differential (05/01/2023 12:49 AM CDT) [facility] WBC 18.7(H) 3.8 - 9.9 K/cumm [facility] Hgb 8.0(L) 13.0 - 17.5 g/dL [facility] Comment: Interpretive Data A reference range for this assay has not been established for patients with an unknown legal sex. Please refer to the laboratory test catalog for established sex-specific reference intervals. Current interpretive data was last revised on 2023. Hct 26.6(L) 38.9 - 50.3 % [facility] Comment: Interpretive Data A reference range for this assay has not been established for patients with an unknown legal sex. Please refer to the laboratory test catalog for established sex-specific reference intervals. Current interpretive data was last revised on 2023. Plt 504(H) 150 - 400 K/cumm [facility] MPV 9.4 9.1 - 12.3 fL [facility] RBC 3.47(L) 4.30 - 5.80 M/cumm [facility] Comment: Interpretive Data A reference range for this assay has not been established for patients with an unknown legal sex. Please refer to the laboratory test catalog for established sex-specific reference intervals. Current interpretive data was last revised on 2023. MCV 76.7(L) 81.3 - 96.4 fL [facility] MCH 23.1(L) 27.1 - 33.3 pg [facility] MCHC 30.1(L) 32.3 - 35.7 g/dL [facility] RDW CV 17.7(H) 11.1 - 14.9 % [facility] RDW SD 48.2(H) 35.7 - 48.1 fL [facility] NRBC abs 0.00 0.00 - 0.01 K/cumm [facility] Blood 05/01/2023 12:4 9 AM CDT 05/01/2023 1:05 AM CDT us Richmond Ho MD LAB BLOOD ORDERABLES F inal Result [facility] Department [place] [address] * XR Knee Right 1 or 2 Views (04/30/2023 7:26 PM CDT) Anatomical Region Laterality Modality Lower Extremities, Knee Right Computed Radiography 05/01/2023 9:40 AM CDT Impressions 05/01/2023 9:40 AM CDT No acute fracture of the right knee. Electronically signed by: Zay Cordova M.D. Narrative 05/01/2023 9:40 AM CDT EXAMINATION: XR KNEE RIGHT 1 OR 2 VIEWS HISTORY: Right knee pain FINDINGS: 2 views of the right knee were performed without prior comparison. ??There is a trace right knee joint effusion. ??There is no acute fracture. ??Joint spaces are normal. ??No suspicious osseous lytic or blastic lesion is seen. Procedure Note Zay Cordova MD PhD - 05/01/2023 EXAMINATION: XR KNEE RIGHT 1 OR 2 VIEWS HISTORY: Right knee pain FINDINGS: 2 views of the right knee were performed without prior comparison. There is a trace right knee joint effusion. There is no acute fracture. Joint spaces are normal. No suspicious osseous lytic or blastic lesion is seen. IMPRESSION: No acute fracture of the right knee. Electronically signed by: Zay Cordova M.D. us Armando Castillo MD IMG XR PROCEDURES Final Res ult * Bronchoscopy - (04/30/2023 2:08 PM CDT) Anatomical Region Laterality Modality Other Narrative Procedure Note Freddy Parham MD - 04/30/2023 2:08 PM CDT [facility] Interventional Pulmonary Patient Name: Crystal Capone Procedure Date: 04/30/2023 2:08 PM Date of : 1990 Admit Type: Inpatient Age: 33 Room: ROOM 1 Gender: Male Note Status: Finalized Procedure: Bronchoscopy LINEAR EBUS-TBNA RADIAL EBUS TBBx BAL Indications: Right upper lobe mass Providers: Freddy Parham M.D. Referring MD: Shasta Sena M.D. Medicines: Midazolam 18 mg IV, Fentanyl 350 mcg IV Complications: No immediate complications Procedure: After obtaining informed consent, the Bronchoscopewas introduced through the mouth, via laryngeal mask airway and advanced to the tracheobronchial tree of both lungs. the Bronchoscope was introduced through the mouth, via laryngeal mask airway and advancedto the tracheobronchial tree of both lungs. Estimated Blood Loss: Estimated blood loss was minimal. Findings: 1. AIRWAY INSPECTION --- The trachea is of normal caliber. The misti is sharp. The tracheobronchial tree was examined to at least the first subsegmental level. Bronchial mucosa and anatomy are normal; there are no endobronchial lesions, and no secretions. 2.Radial EBUS The 1.7mm 20Mhz radial EBUS probe was advanced through the working channel of the 4mm bronchoscope and was used to examine the distal airways and lung parenchyma. A lesion was identified in the RULanterior segment using radial EBUS. The radial probe was positioned within the lesion. Transbronchial needle aspiration times 5 was performed using a Wang21 gauge needle advanced to the lesion in the RUL anterior segmentthrough the working channel of the 4mm bronchoscope and was sent for routine cytology. The procedure was fluoroscopically guided. A partially obstructing mass/consolidation was found in the anterior segment ofthe right upper lobe (B3). The mass/consolidation was medium-sized. 3. LINEAR EBUS-TBNA --- The linear array EBUS scope was introduced through the mouth tothe right hilum. A lymph node was identified using EBUS at thisstation. ---Transbronchial needle aspiration using a 22 guage aspirationneedle times 4 was performed at the 11R under continuous endobronchial ultrasound guidance. 4. Transbronchial biopsies of a mass were performed in the anterior segment of the right upper lobe using forceps and sent for histopathology examination. The procedure was guided by fluoroscopy. Biopsy of lung tissue was obtained. Five biopsy passes wereperformed. Five biopsy samples were obtained. 5. The bronchoscope was advanced until wedged at the desired location for bronchoalveolar lavage. BAL was performed in the RUL anterior segment (B3) of the lung and sent for cell count, bacterial culture, viral smears & culture, and fungal & AFB analysis. 100 mL of fluidwere instilled. 30 mL were returned. The return was blood-tinged. Therewere no mucoid plugs in the return fluid. Impression: 1. AIRWAY INSPECTION 2. Radial EBUS 3. LINEAR EBUS-TBNA 4. Transbronchial Biopsies 5. Bronchoalveolar lavage Recommendation: - Await test results. - Return patient to hospital [facility]. Attending Participation: I personally performed the entire procedure. Electronically signed by Freddy Parham MD Freddy Parham M.D. 04/30/2023 5:25:24 PM Number of Addenda: 0 Note Initiated On: 04/30/2023 2:08 PM Selvin Steward MD BRONCH ORDERABLES Final R esult * Soledad-1 antibody (04/30/2023 6:24 AM CDT) Soledad 1 Antibody, IgG <0.2 <=0.9 Ab Index [facility] Comment: Interpretive Data Negative: < 1.0 Ab Index Positive: > or = 1.0 Ab Index Current interpretive data was last revised on 2016. Blood 04/30/2023 6:24 AM CDT 04/30/2023 6:36 AM CDT Result [facility] Armando Castillo MD LAB BLOOD ORDERABLES Final Result Performing Organization Address [facility] de Phone Number [facility] [place] [address] * SCL 70 abs (04/30/2023 6:24 AM CDT) Anti-Scl70, IgG <0.2 <=0.9 Ab Index [facility] Comment: Interpretive Data Negative: < 1.0 Ab Index Positive: > or = 1.0 Ab Index Current interpretive data was last revised on 2016. Blood 04/30/2023 6:24 AM CDT 04/30/2023 6:36 AM CDT Armando Castillo MD LAB BLOOD ORDERABLES Final Result Performing Organization Address City/[facility] [[email or web address]] Co de Phone Number [facility] [place] [address] * (ABNORMAL) RECYCLABLE PRODUCTS SORTER abs (04/30/2023 6:24 AM CDT) RECYCLABLE PRODUCTS SORTER ab 1.2(H) <=0.9 Ab Index [facility] Comment: Interpretive Data Negative: < 1.0 Ab Index Positive: > or = 1.0 Ab Index Current interpretive data was last revised on 2016. Blood 04/30/2023 6:24 AM CDT 04/30/2023 6:36 AM CDT Armando Castillo MD LAB BLOOD ORDERABLES Final Result Performing Organization Address City/State/[facility] [[email or web address]] Co de Phone Number [facility] [place] [address] * Chavez abs (04/30/2023 6:24 AM CDT) Anti-JAVIER, SM <0.2 <=0.9 Ab Index [facility] Comment: Interpretive Data Negative: < 1.0 Ab Index Positive: > or = 1.0 Ab Index Current interpretive data was last revised on 2016. Blood 04/30/2023 6:24 AM CDT 04/30/2023 6:36 AM CDT Armando Castillo MD LAB BLOOD ORDERABLES Final Result Performing Organization Address [facility] [[email or web address]] [place] [address] * Sjogren's syndrome B ab (04/30/2023 6:24 AM CDT) Anti-JAVIER, SS-B <0.2 <=0.9 Ab Index [facility] Comment: Interpretive Data Negative: < 1.0 Ab Index Positive: > or = 1.0 Ab Index Current interpretive data was last revised on 2016. Blood 04/30/2023 6:24 AM CDT 04/30/2023 6:36 AM CDT Armando Castillo MD LAB BLOOD ORDERABLES Final Result Performing Organization Address City/[facility]/ZIP Co de Phone Number [facility] [place] [address] * Sjogren's syndrome A ab (04/30/2023 6:24 AM CDT) Anti-JAVIER, SS-A <0.2 <=0.9 Ab Index [facility] Comment: Interpretive Data Negative: < 1.0 Ab Index Positive: > or = 1.0 Ab Index Current interpretive data was last revised on 2016. Blood 04/30/2023 6:24 AM CDT 04/30/2023 6:36 AM CDT Armando Castillo MD LAB BLOOD ORDERABLES Final Result [facility] Department [place] [address] * eGFR (04/30/2023 6:24 AM CDT) Pathologist [facility] eGFR >90 90 - 130 mL/min/1. 73 m2 [facility] Comment: Interpretive Data Reference Interval Normal ?>/= [...] Current interpretive data was last reviewed 2021. Blood 04/30/2023 6:24 AM CDT 04/30/2023 6:36 AM CDT us Richmond Ho MD LAB BLOOD ORDERABLES F inal Result [facility] Department [place] [address] * (ABNORMAL) Differential, auto (04/30/2023 6:24 AM CDT) Neutrophil abs 11.8(H) 1.7 - 6.5 K/[facility]umm [facility] Imm gran abs 0.2(H) 0.0 - 0.1 K/cumm [facility] Lymphocyte abs 0.1(L) 0.8 - 3.3 K/cumm [facility] Monocyte abs 0.5 0.2 - 0.8 K/cumm [facility] Eosinophil abs 0.0 0.0 - 0.5 K/cumm [facility] Basophil abs 0.0 0.0 - 0.1 K/cumm [facility] Neutrophil pct 93.7 % [facility] Comment: Interpretive Data Percent cell count reference ranges are not reported, since discordance with absolute values may lead to misinterpretation of CBC data. Current Interpretive Data was last revised on 2017. Imm gran pct 1.3 % [facility] Comment: Interpretive Data Percent cell count reference ranges are not reported, since discordance with absolute values may lead to misinterpretation of CBC data. Current Interpretive Data was last revised on 2017. Lymphocyte pct 0.9 % [facility] Comment: Interpretive Data Percent cell count reference ranges are not reported, since discordance with absolute values may lead to misinterpretation of CBC data. Current Interpretive Data was last revised on 2017. Monocyte pct 3.9 % [facility] Comment: Interpretive Data Percent cell count reference ranges are not reported, since discordance with absolute values may lead to misinterpretation of CBC data. Current Interpretive Data was last revised on 2017. Eosinophil pct 0.0 % [facility] Comment: Interpretive Data Percent cell count reference ranges are not reported, since discordance with absolute values may lead to misinterpretation of CBC data. Current Interpretive Data was last revised on 2017. Basophil pct 0.2 % [facility] Comment: Interpretive Data Percent cell count reference ranges are not reported, since discordance with absolute values may lead to misinterpretation of CBC data. Current Interpretive Data was last revised on 2017. Blood 04/30/2023 6:24 AM CDT 04/30/2023 6:36 AM CDT Richmond Ho MD LAB BLOOD ORDERABLES F inal Result Performing Organization Address [facility]/ZIP Co de Phone Number [facility] Department [place] [address] * Phosphorus (04/30/2023 6:24 AM CDT) Pathologist [facility] Phosphorus, pl 2.9 2.3 - 4.5 mg/dL [facility] Blood 04/30/2023 6:24 AM CDT 04/30/2023 6:36 AM CDT Richmond Ho MD LAB BLOOD ORDERABLES F inal Result Performing Organization Address [facility]/ZIP Co de Phone Number [facility] Department [place] [address] * (ABNORMAL) Comprehensive metabolic panel (04/30/2023 6:24 AM CDT) [facility] Sodium 138 135 - 145 mmol/L [facility] Potassium, pl 4.0 3.3 - 4.9 mmol/L [facility] Chloride 103 97 - 110 mmol/L [facility] CO2 29 22 - 32 mmol/L [facility] Anion gap 6 2 - 15 mmol/L [facility] BUN 15 6 - 25 mg/dL [facility] Creatinine 0.72(L) 0.80 - 1.30 mg/dL [facility] Glucose 134 70 - 199 mg/dL [facility] Comment: Interpretive Data Fasting glucose [...] Current interpretive data was last revised 2022. Calcium 8.3(L) 8.5 - 10.3 mg/dL [facility] Bilirubin, total 0.2 0.1 - 1.2 mg/dL [facility] Protein, pl 5.6(L) 6.5 - 8.5 g/dL [facility] Albumin 2.3(L) 3.5 - 5.0 g/dL [facility] Alk phos 182(H) 40 - 130 Units/L [facility] ALT 8 7 - 55 Units/L [facility] AST 9(L) 10 - 50 Units/L [facility] Blood 04/30/2023 6:24 AM CDT 04/30/2023 6:36 AM CDT Richmond Ho MD LAB BLOOD ORDERABLES F inal Result [facility] Department [place] [address] * Magnesium (04/30/2023 6:24 AM CDT) Pathologist [facility] Magnesium 1.7 1.4 - 2.5 mg/dL [facility] Blood 04/30/2023 6:24 AM CDT 04/30/2023 6:36 AM CDT Richmond Ho MD LAB BLOOD ORDERABLES F inal Result [facility] Department [place] [address] * (ABNORMAL) CBC with auto differential (04/30/2023 6:24 AM CDT) [facility] WBC 12.6(H) 3.8 - 9.9 K/cumm [facility] Hgb 7.1(L) 13.0 - 17.5 g/dL [facility] Comment: Interpretive Data A reference range for this assay has not been established for patients with an unknown legal sex. Please refer to the laboratory test catalog for established sex-specific reference intervals. Current interpretive data was last revised on 2023. Hct 23.5(L) 38.9 - 50.3 % [facility] Comment: Interpretive Data A reference range for this assay has not been established for patients with an unknown legal sex. Please refer to the laboratory test catalog for established sex-specific reference intervals. Current interpretive data was last revised on 2023. Plt 436(H) 150 - 400 K/cumm [facility] MPV 8.7(L) 9.1 - 12.3 fL [facility] RBC 3.14(L) 4.30 - 5.80 M/cumm [facility] Comment: Interpretive Data A reference range for this assay has not been established for patients with an unknown legal sex. Please refer to the laboratory test catalog for established sex-specific reference intervals. Current interpretive data was last revised on 2023. MCV 74.8(L) 81.3 - 96.4 fL [facility] MCH 22.6(L) 27.1 - 33.3 pg [facility] MCHC 30.2(L) 32.3 - 35.7 g/dL [facility] RDW CV 17.4(H) 11.1 - 14.9 % [facility] RDW SD 47.3 35.7 - 48.1 fL [facility] NRBC abs 0.00 0.00 - 0.01 K/cumm [facility] Blood 04/30/2023 6:24 AM CDT 04/30/2023 6:36 AM CDT us Richmond Ho MD LAB BLOOD ORDERABLES F inal Result [facility] Department [place] [address] * T-SPOT.TB Blood (04/30/2023 6:24 AM CDT) [facility] T-SPOT.TB Negative SeeBelow [facility] Comment: Normal Value: Negative A negative test result does not exclude the possibility of exposure to or infection with Mycobacterium tuberculosis (M. tuberculosis). ??Patients with recent exposure to TB infected individuals exhibiting a negative T-SPOT.TB result should be considered for retesting within 6 weeks or if other relevant clinical symptoms indicate. ??Results from T-SPOT.TB testing must be used in conjunction with each individual's epidemiological history, current medical status, and results of other diagnostic evaluations. ??The T-SPOT.TB test is qualitative and results are reported as positive, borderline or negative, given that the test controls perform as expected. In line with the Centers for Disease Control and Prevention's 2010 recommendation to report quantitative measurements alongside the qualitative result, the laboratory provides spot counts for informational purposes only. ??The T-SPOT.TB test should not be interpreted as a quantitative test. T-SPOT.TB Panel A Spot Count 2 [facility] T-SPOT.TB Panel B Spot Count 1 [facility] T-SPOT.TB Negative Control Passed [facility] T-SPOT.TB Positive Control Passed [facility] Comment: Test Performed at: [employer] [facility], [employer] [address] [place] [address] ??[phone] ? REBA KISER MD,PHD Blood 04/30/2023 6:24 AM CDT 04/30/2023 6:31 AM CDT us Armando Castillo MD LAB MICROBIOLOGY - GENERAL ORDERABLES Final Result Performing Organization Address City/[facility]/ZIP Co de Phone Number [facility] [place] [address] * Vancomycin level trough Draw 30 minutes prior to 4th dose (04/30/2023 6:24 AM CDT) Pathologist [facility] Vancomycin trough 15.3 10.0 - 20.0 mcg/mL [facility] Blood 04/30/2023 6:24 AM CDT 04/30/2023 6:36 AM CDT Narrative [facility] - 04/30/2023 7:14 AM CDT Draw 30 minutes prior to 4th dose Armando Castillo MD LAB [place] [address] * HIV 1/2 Antibody plus p24 Antigen Blood (04/30/2023 6:24 AM CDT) [facility] HIV 1/2 ab + p24 ag Nonreactive Nonreactive [facility] Comment:Nonreactive for HIV- 1 antigen and HIV-1/HIV-2 antibodies. No laboratory evidence of HIV infection. If acute HIV infection is suspected, consider testing for HIV-1 RNA. Current interpretive data was last revised on 22. Blood 04/30/2023 6:24 AM CDT 04/30/2023 6:35 AM CDT us Armando Castillo MD LAB MICROBIOLOGY - GENER[place] [address] * RPR Blood (04/30/2023 6:24 AM CDT) [facility] RPR Nonreactive Nonreactive [facility] Blood 04/30/2023 6:24 AM CDT 04/30/2023 6:36 AM CDT Armando Castillo MD LAB MICROBIOLOGY - GENERAL ORDERABLES Final Result Performing Organization Address [facility] [place] [address] * Cyclic citrul peptide antibody, IgG (04/30/2023 6:24 AM CDT) CCP Ab <0.5 <=2.9 units/mL [facility] Comment: Interpretive data Negative: <3 units/mL Positive: > or equal to 3 units/mL Current interpretive data was last revised on 2016. Blood 04/30/2023 6:24 AM CDT 04/30/2023 6:36 AM CDT Armando Castillo MD LAB BLOOD ORDERABLES Final Result Performing Organization [facility] de Phone Number [facility] [place] [address] * Rheumatoid factor (04/30/2023 6:24 AM CDT) Pathologist [facility] Rheumatoid factor, quant <10.0 0.1 - 15.0 IUnits/mL [facility] Blood 04/30/2023 6:24 AM CDT 04/30/2023 6:36 AM CDT Armando Castillo MD LAB BLOOD ORDERABLES Final Result Performing Organization Address [facility] [[email or web address]] [place] [address] * (ABNORMAL) CRP (acute phase) (04/30/2023 6:24 AM CDT) CRP 56.8(H) <=10.0 mg/L [facility] Blood 04/30/2023 6:24 AM CDT 04/30/2023 6:36 AM CDT Armando Castillo MD LAB BLOOD ORDERABLES Final Result Performing Organization Address City/[facility]/ZIP Co de Phone Number [facility] [place] [address] * Anti-Neutrophilic Cytoplasmic Antibody (ANCA) with Reflex to MPO and PR3 Abs (04/30/2023 6:24 AM CDT) ANCA Negative [facility] Blood 04/30/2023 6:24 AM CDT 04/30/2023 6:36 AM CDT Armando Castillo MD LAB BLOOD ORDERABLES Final Result Performing Organization Address [facility] [place] [address] * (ABNORMAL) JAVIER ab eval w/reflex (04/30/2023 6:24 AM CDT) JAVIER ab Positive( A) Negative [facility] Comment: Interpretive Data Positive Screens will be reflexed to specific testing for Antibodies against the following antigens: Soledad-1 Ab, RECYCLABLE PRODUCTS SORTER Ab, Scl-70 Ab, Chavez Ab, SS-A/Ro Ab, and SS- B/La Ab. Further testing for dsDNA, Centromere, or Ribosomal P antibodies is suggested in patient with a positive screen and negative specific antibodies. Current interpretive data was last revised on 2022. Blood 04/30/2023 6:24 AM CDT 04/30/2023 6:36 AM CDT Armando Castillo MD LAB BLOOD ORDERABLES Final Result Performing Organization Address [facility] [[email or web address]] Co de Phone Number [facility] [place] [address] * RAYA ab ql w/rflx to RAYA qn (04/30/2023 6:24 AM CDT) RAYA Negative [facility] Comment: Interpretive Data Normal range for RAYA Qualitative Antibody = Negative. 1. RAYA is performed using indirect immunofluorescence against HEp-2 cells 2. RAYA titers are performed on all positive qualitative results. 3. A significantly positive RAYA result is defined as a positive nuclear fluorescence at a titer of 1:80 or greater. 4. 15% of normal people above age 65 have significantly positive RAYA results. ??5% or less of normal people age 65 or under have significantly positive RAYA results. Current interpretive data was last revised on 2020. Blood 04/30/2023 6:24 AM CDT 04/30/2023 6:36 AM CDT [facility] Hieu Castillo MD LAB BLOOD ORDERABLES Final Result [facility] Department [place] [address] * MRI Orbit W WO Contrast (04/29/2023 5:47 PM CDT) Anatomical Region Laterality Modality Head and Neck N/A Magnetic Resonan ce 04/29/2023 6:19 PM CDT Impressions 04/29/2023 11:41 PM CDT Mild degenerative changes of the cervical spine as described in detail above. 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 ??No has double vision and neck pain TECHNIQUE: Multiplanar multi-weighted MRI of the orbits was performed without and with intravenous contrast using the standard protocol. This included multiplanar high resolution imaging of the orbits and optic nerves. Multiplanar multi-weighted MRI of the cervical spine was performed without and with intravenous contrast using the standard protocol. Contrast information: 16 mL Gadoterate Meglumine COMPARISON: Outside MR studies on 04/25/2023 FINDINGS: ORBITS: Examination of the brain and orbits is markedly limited due to motion. ??Both globes are normal in shape and outline without proptosis. The extraocular muscles are normal in size. No intra- or extraconal masses are present. The intraconal fat is normal. The orbital mclain are intact. The lacrimal glands are normal in appearance. Meckel's cave appears normal on each side. The carotid artery flow voids are normal. The optic nerves and optic chiasm are normal. The suprasellar cistern is normal. CERVICAL SPINE: Abnormal bone marrow signal intensity C4-C7 vertebral bodies as well as T2-T3 vertebral bodies, worst at C4-C5 level with enhancement of vertebral bodies, in keeping with known metastatic involvement. There is abnormal epidural signal from C2 through C5, most prominent at C5-C6 level with mild mass effect on the cervical cord. Suspicious T2 hyperintensity in the cord at C4-C5 without enhancement, Evaluation is limited by motion artifact. There are no annular fissures identified. No soft tissue abnormality is identified. Normal signal voids are present in the vertebral arteries. IMPRESSION: 1. ??Evaluation of the orbits limited by motion artifacts. ??Within this limitation, no apparent lesion to explain patient's symptoms. However, if there is persistent clinical concern, recommend repeat the MRI orbit without with without contrast. 2. ??Diffuse bone marrow replacing lesion involving entire lumbar vertebrae with enhancement most pronounced at the C4-C5 and T1-T2. These findings are in keeping with lymphomatous involvement. ??Minimal height loss at C4 vertebral body with minimal retropulsion suspicious for developing pathological fracture. 3. ??Suspicious T2 hyperintensity in the spinal cord at the C4-C5 levels without enhancement, however, evaluation is limited by motion artifact. 4. ??Ventral epidural thickening at the C5-C6 also suspicious for lymphomatous involvement. Mild canal stenosis at these levels. Dictated by: Kecia Carballo MD The radiology attending physician has personally reviewed this study, and had reviewed and/or edited this written report and agrees with it. Electronically signed by: Saleem Hutchinson MD, PHD Narrative 04/29/2023 11:41 PM CDT EXAMINATION: 1. Magnetic resonance imaging (MRI) of the orbits without and with contrast 2. Magnetic resonance imaging (MRI) of the cervical spine without and with contrast Procedure Note Saleem Hutchinson MD PhD - 04/29/2023 EXAMINATION: 1. Magnetic resonance imaging (MRI) of the orbits without and with contrast 2. Magnetic resonance imaging (MRI) of the cervical spine without and with contrast IMPRESSION: Mild degenerative changes of the cervical spine as described in detail above. 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 No has double vision and neck pain TECHNIQUE: Multiplanar multi-weighted MRI of the orbits was performed without and with intravenous contrast using the standard protocol. This included multiplanar high resolution imaging of the orbits and optic nerves. Multiplanar multi-weighted MRI of the cervical spine was performed without and with intravenous contrast using the standard protocol. Contrast information: 16 mL Gadoterate Meglumine COMPARISON: Outside MR studies on 04/25/2023 FINDINGS: ORBITS: Examination of the brain and orbits is markedly limited due to motion. Both globes are normal in shape and outline without proptosis. The extraocular muscles are normal in size. No intra- or extraconal masses are present. The intraconal fat is normal. The orbital mclain are intact. The lacrimal glands are normal in appearance. Meckel's cave appears normal on each side. The carotid artery flow voids are normal. The optic nerves and optic chiasm are normal. The suprasellar cistern is normal. CERVICAL SPINE: Abnormal bone marrow signal intensity C4-C7 vertebral bodies as well as T2-T3 vertebral bodies, worst at C4-C5 level with enhancement of vertebral bodies, in keeping with known metastatic involvement. There is abnormal epidural signal from C2 through C5, most prominent at C5-C6 level with mild mass effect on the cervical cord. Suspicious T2 hyperintensity in the cord at C4-C5 without enhancement, Evaluation is limited by motion artifact. There are no annular fissures identified. No soft tissue abnormality is identified. Normal signal voids are present in the vertebral arteries. IMPRESSION: 1. Evaluation of the orbits limited by motion artifacts. Within this limitation, no apparent lesion to explain patient's symptoms. However, if there is persistent clinical concern, recommend repeat the MRI orbit without with without contrast. 2. Diffuse bone marrow replacing lesion involving entire lumbar vertebrae with enhancement most pronounced at the C4-C5 and T1-T2. These findings are in keeping with lymphomatous involvement. Minimal height loss at C4 vertebral body with minimal retropulsion suspicious for developing pathological fracture. 3. Suspicious T2 hyperintensity in the spinal cord at the C4-C5 levels without enhancement, however, evaluation is limited by motion artifact. 4. Ventral epidural thickening at the C5-C6 also suspicious for lymphomatous involvement. Mild canal stenosis at these levels. Dictated by: Kecia Carballo MD The radiology attending physician has personally reviewed this study, and had reviewed and/or edited this written report and agrees with it. Electronically signed by: Saleem Hutchinson MD, PHD us Richmond Ho MD IMG MRI PROCEDURES Fin al Result * MRI Cervical Spine W WO Contrast (04/29/2023 5:47 PM CDT) Anatomical Region Laterality Modality Spine N/A Magnetic Resonan ce 04/29/2023 6:19 PM CDT Impressions 04/29/2023 11:41 PM CDT Mild degenerative changes of the cervical spine as described in detail above. 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 ??No has double vision and neck pain TECHNIQUE: Multiplanar multi-weighted MRI of the orbits was performed without and with intravenous contrast using the standard protocol. This included multiplanar high resolution imaging of the orbits and optic nerves. Multiplanar multi-weighted MRI of the cervical spine was performed without and with intravenous contrast using the standard protocol. Contrast information: 16 mL Gadoterate Meglumine COMPARISON: Outside MR studies on 04/25/2023 FINDINGS: ORBITS: Examination of the brain and orbits is markedly limited due to motion. ??Both globes are normal in shape and outline without proptosis. The extraocular muscles are normal in size. No intra- or extraconal masses are present. The intraconal fat is normal. The orbital mclani are intact. The lacrimal glands are normal in appearance. Meckel's cave appears normal on each side. The carotid artery flow voids are normal. The optic nerves and optic chiasm are normal. The suprasellar cistern is normal. CERVICAL SPINE: Abnormal bone marrow signal intensity C4-C7 vertebral bodies as well as T2-T3 vertebral bodies, worst at C4-C5 level with enhancement of vertebral bodies, in keeping with known metastatic involvement. There is abnormal epidural signal from C2 through C5, most prominent at C5-C6 level with mild mass effect on the cervical cord. Suspicious T2 hyperintensity in the cord at C4-C5 without enhancement, Evaluation is limited by motion artifact. There are no annular fissures identified. No soft tissue abnormality is identified. Normal signal voids are present in the vertebral arteries. IMPRESSION: 1. ??Evaluation of the orbits limited by motion artifacts. ??Within this limitation, no apparent lesion to explain patient's symptoms. However, if there is persistent clinical concern, recommend repeat the MRI orbit without with without contrast. 2. ??Diffuse bone marrow replacing lesion involving entire lumbar vertebrae with enhancement most pronounced at the C4-C5 and T1-T2. These findings are in keeping with lymphomatous involvement. ??Minimal height loss at C4 vertebral body with minimal retropulsion suspicious for developing pathological fracture. 3. ??Suspicious T2 hyperintensity in the spinal cord at the C4-C5 levels without enhancement, however, evaluation is limited by motion artifact. 4. ??Ventral epidural thickening at the C5-C6 also suspicious for lymphomatous involvement. Mild canal stenosis at these levels. Dictated by: Kecia Carballo MD The radiology attending physician has personally reviewed this study, and had reviewed and/or edited this written report and agrees with it. Electronically signed by: Saleem Hutchinson MD, PHD Narrative 04/29/2023 11:41 PM CDT EXAMINATION: 1. Magnetic resonance imaging (MRI) of the orbits without and with contrast 2. Magnetic resonance imaging (MRI) of the cervical spine without and with contrast Procedure Note Saleem Hutchinson MD PhD - 04/29/2023 EXAMINATION: 1. Magnetic resonance imaging (MRI) of the orbits without and with contrast 2. Magnetic resonance imaging (MRI) of the cervical spine without and with contrast IMPRESSION: Mild degenerative changes of the cervical spine as described in detail above. 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 No has double vision and neck pain TECHNIQUE: Multiplanar multi-weighted MRI of the orbits was performed without and with intravenous contrast using the standard protocol. This included multiplanar high resolution imaging of the orbits and optic nerves. Multiplanar multi-weighted MRI of the cervical spine was performed without and with intravenous contrast using the standard protocol. Contrast information: 16 mL Gadoterate Meglumine COMPARISON: Outside MR studies on 04/25/2023 FINDINGS: ORBITS: Examination of the brain and orbits is markedly limited due to motion. Both globes are normal in shape and outline without proptosis. The extraocular muscles are normal in size. No intra- or extraconal masses are present. The intraconal fat is normal. The orbital mclain are intact. The lacrimal glands are normal in appearance. Meckel's cave appears normal on each side. The carotid artery flow voids are normal. The optic nerves and optic chiasm are normal. The suprasellar cistern is normal. CERVICAL SPINE: Abnormal bone marrow signal intensity C4-C7 vertebral bodies as well as T2-T3 vertebral bodies, worst at C4-C5 level with enhancement of vertebral bodies, in keeping with known metastatic involvement. There is abnormal epidural signal from C2 through C5, most prominent at C5-C6 level with mild mass effect on the cervical cord. Suspicious T2 hyperintensity in the cord at C4-C5 without enhancement, Evaluation is limited by motion artifact. There are no annular fissures identified. No soft tissue abnormality is identified. Normal signal voids are present in the vertebral arteries. IMPRESSION: 1. Evaluation of the orbits limited by motion artifacts. Within this limitation, no apparent lesion to explain patient's symptoms. However, if there is persistent clinical concern, recommend repeat the MRI orbit without with without contrast. 2. Diffuse bone marrow replacing lesion involving entire lumbar vertebrae with enhancement most pronounced at the C4-C5 and T1-T2. These findings are in keeping with lymphomatous involvement. Minimal height loss at C4 vertebral body with minimal retropulsion suspicious for developing pathological fracture. 3. Suspicious T2 hyperintensity in the spinal cord at the C4-C5 levels without enhancement, however, evaluation is limited by motion artifact. 4. Ventral epidural thickening at the C5-C6 also suspicious for lymphomatous involvement. Mild canal stenosis at these levels. Dictated by: Kecia Carballo MD The radiology attending physician has personally reviewed this study, and had reviewed and/or edited this written report and agrees with it. Electronically signed by: Saleem Hutchinson MD, PHD us Richmond Ho MD IMG MRI PROCEDURES Fin al Result * TRANSTHORACIC ECHO (TTE) COMPLETE W DOPPLER/CF WO CONTRAST (04/29/2023 1:06 PM CDT) LV EF 62 % CARDIOREPORT Anatomical Region Laterality Modality Ultrasound 04/29/2023 12:1 5 PM CDT Narrative 04/29/2023 1:18 PM CDT Patient name: Crystal Capone Date of test: 04/29/2023 Type of test: TTE w/Doppler [facility] #: [id number] Date of : 1990 (M) Dispatch Supervisor: Anai Koo RDCS Referring Physician: RICHMOND HO MD Contrast Agent: Contrast Administered by: Supervised/Interpreted by: Duke Guan MD. Diagnosis: Location: [facility] Reason for test: [facility] MV Structure: Normal, ?MV Motion: Normal, ?? Mitral Annulus: Normal AV Structure: tricuspid and is Normal, ?? AV Motion: Normal Aotic root: Normal, ?TM: Normal, ?? PV: Normal Valvular Vegetations: none seen, ?Mass/Thrombi: none seen RA: Normal Measurements: ?M-Mode ?Normal ? Aotic Root: ? <3.8 ? LA: ? <4.0 ? RV: ? <2.8 ? LV(ED): ? <5.7 ? LV(ES): ? Variable ?2D Linear Normal ? Aotic Root: 3.1 cm ?<4.0 ? Ao Indexed: 1.6 cm/M2 <2.0 ? LA: ? <4.0 ? RV: ? 3.9 cm ?<4.2 ? LV(ED): ? 5.3 cm ?<5.9 ? LV(ES): ? 3.2 cm ?<4.0 ?2D Vol. ?? Normal ?Indexed ?? Indexed Normal RA: ? 37.0 ml ? 19.0 ml/M2 ?11-39 ? LA: ? 54.0 ml ? 27.7 ml/M2 ?16-34 ? RV: ? <12.7 ? LV(ED): ? 131.0 ml ??62-150 ?67.2 ml/M2 ?<75 ? LV(ES): ? 50.0 ml ?? 21-61 ? 25.7 ml/M2 ?<32 ?3D Vol. ? Indexed Normal LV(ED): ?<75 ? LV(ES): ?<32 ? LV EF: 62 % ?? (Normal: >=52%) ?? LV Septum: 0.8 cm ?(Normal: <1.0 cm) Wall Motion Scoring (1=Normal 2=Hypo 3=Akinetic 4=Dyskin./Aneurysm 0=Not visualized) Parasternal Long Burns:MAS=1 BAS=1 MIL=1 KAILEY=1 Parasternal Short Burns:MAS=1 MIS=1 NY=1 MIL=1 MAL=1 MA=1 Apical 4 Chambers:=1 MIS=1 BIS=1 BAL=1 MAL=1 AL=1 AC=1 Apical 2 Chambers:AI=1 [place]=1 BI=1 BA=1 MA=1 AA=1 AC=1 LV Global Longitudinal Strain: -20.8% ??(Normal <-17%) RV Global Longitudinal Strain: -18.3% ??(Normal <-17%) LV Function: Normal LV Ejection Fraction, (EF=52-72%) RV Function: Normal Septal Motion: Normal Pericardial Effusion: small Atrial Septum: Normal DOPPLER/COLOR FLOW DOPPLER RESULTS: Diastolic Function: Normal Tricuspid Valve: trace TR Pulmonic Valve: normal PV AV Regurgitation: No AR seen AV Stenosis: no AV Area: ??cm2 AV Pressure Gradient (mmHg): Mean: 0, Peak:0 MV Regurgitation: No MR seen MV Stenosis: no MS MV Area: ??cm2 MV Pressure Gradient (mmHg): Mean: 0 MV ERO: ??cm Regurg. Vol.: ??ml/beat Regurg. Frac.: ??% PA Pressure: 30 mmHg DOPPLER/COLOR FOLOW DOPPLER COMMENTS: No AR seen, No MR seen, no , no MS, trace TR, normal PV. Diastolic function: Normal SUMMARY: Normal LV+RV morphology and function. Normal global LV myocardial longitudinal function and LV strain pattern. No segmental wall motion abnormalities. Normal LA+RA size. Normal inferior vena cava. Normal size aortic root. Normal diastolic function. Small ??pericardial effusion. No significant valvular abnormalities noted. Confirmed on ??04/29/2023 - 13:18:03 by Duke Guan MD. By signing this report, the attending commodities clerk certifies that he or she has personally supervised and interpreted the echocardiogram and has reviewed and or edited and agrees with the written comments contained within the report. Procedure Note Duke Guan MD - 04/29/2023 Patient name: Crystal Capone Date of test: 04/29/2023 Type of test: TTE w/Doppler Hospital #: 0 Date of : 1990 (M) Dispatch Supervisor: Anai Koo [facility] Referring Physician: RICHMOND HO MD Contrast Agent: Contrast Administered by: Supervised/Interpreted by: Duke Guan MD. Diagnosis: Location: [facility] Reason for test: HFmrEF MV Structure: Normal, MV Motion: Normal, Mitral Annulus: Normal AV Structure: tricuspid and is Normal, AV Motion: Normal Aotic root: Normal, TM: Normal, PV: Normal Valvular Vegetations: none seen, Mass/Thrombi: none seen RA: Normal Measurements: M-Mode Normal Aotic Root: <3.8 LA: <4.0 RV: <2.8 LV(ED): <5.7 LV(ES): Variable 2D Linear Normal Aotic Root: 3.1 cm <4.0 Ao Indexed: 1.6 cm/M2 <2.0 LA: <4.0 RV: 3.9 cm <4.2 LV(ED): 5.3 cm <5.9 LV(ES): 3.2 cm <4.0 2D Vol. Normal Indexed Indexed Normal RA: 37.0 ml 19.0 ml/M2 11-39 LA: 54.0 ml 27.7 ml/M2 16-34 RV: <12.7 LV(ED): 131.0 ml 62-150 67.2 ml/M2 <75 LV(ES): 50.0 ml 21-61 25.7 ml/M2 <32 3D Vol. Indexed Normal LV(ED): <75 LV(ES): <32 LV EF: 62 % (Normal: >=52%) LV Septum: 0.8 cm (Normal: <1.0 cm) Wall Motion Scoring (1=Normal 2=Hypo 3=Akinetic 4=Dyskin./Aneurysm 0=Not visualized) Parasternal Long Burns:MAS=1 BAS=1 MIL=1 KAILEY=1 Parasternal Short Burns:MAS=1 MIS=1 [place]=1 MIL=1 MAL=1 MA=1 Apical 4 Chambers:=1 MIS=1 BIS=1 BAL=1 MAL=1 AL=1 AC=1 Apical 2 Chambers:AI=1 [place]=1 BI=1 BA=1 MA=1 AA=1 AC=1 LV Global Longitudinal Strain: -20.8% (Normal <-17%) RV Global Longitudinal Strain: -18.3% (Normal <-17%) LV Function: Normal LV Ejection Fraction, (EF=52-72%) RV Function: Normal Septal Motion: Normal Pericardial Effusion: small Atrial Septum: Normal DOPPLER/COLOR FLOW DOPPLER RESULTS: Diastolic Function: Normal Tricuspid Valve: trace TR Pulmonic Valve: normal PV AV Regurgitation: No AR seen AV Stenosis: no AV Area: cm2 AV Pressure Gradient (mmHg): Mean: 0, Peak:0 MV Regurgitation: No MR seen MV Stenosis: no MS MV Area: cm2 MV Pressure Gradient (mmHg): Mean: 0 MV ERO: cm Regurg. Vol.: ml/beat Regurg. Frac.: % PA Pressure: 30 mmHg DOPPLER/COLOR FOLOW DOPPLER COMMENTS: No AR seen, No MR seen, no , no MS, trace TR, normal PV. Diastolic function: Normal SUMMARY: Normal LV+RV morphology and function. Normal global LV myocardial longitudinal function and LV strain pattern. No segmental wall motion abnormalities. Normal LA+RA size. Normal inferior vena cava. Normal size aortic root. Normal diastolic function. Small pericardial effusion. No significant valvular abnormalities noted. Confirmed on 04/29/2023 - 13:18:03 by Duke Guan MD. By signing this report, the attending commodities clerk certifies that he or she has personally supervised and interpreted the echocardiogram and has reviewed and or edited and agrees with the written comments contained within the report. us Richmond Ho MD CV ECHO PROCEDURES Fin al Result * PET/CT FDG Skull to Thigh (04/29/2023 10:18 AM CDT) Anatomical Region Laterality Modality N/A Positron Emissio n Tomography (PET) 04/29/2023 10:5 7 AM CDT Impressions 04/29/2023 12:37 PM CDT 1. ??Extensive lymphomatous disease above and below the diaphragm including lymphadenopathy, osseous lesions, splenic involvement, and right gluteal intramuscular deposits. 5PS=5. 2. ??Large area of hypermetabolic consolidation in the right upper lobe with adjacent nodularity. ??Differential diagnosis includes malignant and infectious processes (including opportunistic infection in this immunocompromised patient). ??This could be amenable to sampling via bronchoscopy or alternatively percutaneously. Dictated by: Hari Randle M.D. The radiology attending physician has personally reviewed this study, and had reviewed and/or edited this written report and agrees with it. Electronically signed by: Clifford Christopher M.D. Narrative 04/29/2023 12:37 PM CDT EXAMINATION: ??TUMOR FDG-PET/CT IMAGING DATE OF STUDY: 04/29/2023 SCANNER: [facility] RADIOPHARMACEUTICAL: 13.88 mCi F-18 Fluorodeoxyglucose (FDG) i.v. Injection site: Port HISTORY: 33-year-old male with Hodgkin lymphoma diagnosed in 11/2021 status multiple cycles of chemotherapy. Currently admitted for possible pneumonia. The study is requested for restaging after completion of therapy. Subsequent treatment strategy. TECHNIQUE: ?? The patient's fasting blood glucose level, measured by glucometer before injection of FDG, was 109 mg/dL. ?? After intravenous administration of FDG, noncontrast CT images were obtained for attenuation correction and for fusion with emission PET images to allow for anatomical localization of PET findings. ?? Emission PET images were then obtained. ??The study was interpreted on the [employer] workstation. ??The mean liver SUV (reported for quality improvement specialist purposes) is 1.5. ?? The total scanned area was skull base to the proximal thighs. ??Images of the body were obtained starting 65 minutes after injection of tracer. COMPARISON: Spine CT 04/25/2023 DESCRIPTORS OF LESION FDG AVIDITY: Minimal: ? <= blood pool ? Mild: ?> blood pool and <= liver ? Moderate: ?? > liver and <= 2x SUVmax liver ? Moderate to marked: ?? >2x SUVmax liver and <= 3x SUVmax liver ? Marked: ? > 3x SUVmax liver ? FINDINGS: There is hypermetabolic lymphadenopathy above and below the diaphragm including the following stations: cervical, axillary, supraclavicular, mediastinal, hilar, retrocrural, retroperitoneal, iliac chain, and inguinal. There are intramuscular deposits in the right gluteal musculature. There are innumerable foci of intense FDG uptake throughout the axial and proximal appendicular skeleton including the spine, ribs, humeri, scapulae, and pelvis. ??Specifically is a destructive lesion with a pathologic fracture of L4 vertebral body with SUV max 9.8 (image 181). Multiple hypermetabolic splenic lesions. There is a large area of consolidation in the right upper lobe with adjacent nodularity and associated intense hypermetabolic activity maximum SUV 16.4 (image 99.) The most FDG-avid lesion is L4 lesion, with a maximum SUV of 9.8. The uptake in this lesion is: markedly greater than liver (5PS= 5). Additional CT findings: Right chest wall port catheter tip terminates in the right atrium. ??Moderate left pleural effusion. ??Diffuse body wall edema. Procedure Note Clifford Christopher MD - 04/29/2023 EXAMINATION: TUMOR FDG-PET/CT IMAGING DATE OF STUDY: 04/29/2023 SCANNER: [facility] mCT RADIOPHARMACEUTICAL: 13.88 mCi F-18 Fluorodeoxyglucose (FDG) i.v. Injection site: Port HISTORY: 33-year-old male with Hodgkin lymphoma diagnosed in 11/2021 status multiple cycles of chemotherapy. Currently admitted for possible pneumonia. The study is requested for restaging after completion of therapy. Subsequent treatment strategy. TECHNIQUE: The patient's fasting blood glucose level, measured by glucometer before injection of FDG, was 109 mg/dL. After intravenous administration of FDG, noncontrast CT images were obtained for attenuation correction and for fusion with emission PET images to allow for anatomical localization of PET findings. Emission PET images were then obtained. The study was interpreted on the [employer] workstation. The mean liver SUV (reported for quality improvement specialist purposes) is 1.5. The total scanned area was skull base to the proximal thighs. Images of the body were obtained starting 65 minutes after injection of tracer. COMPARISON: Spine CT 04/25/2023 DESCRIPTORS OF LESION FDG AVIDITY: Minimal: <= blood pool Mild: > blood pool and <= liver Moderate: > liver and <= 2x SUVmax liver Moderate to marked: >2x SUVmax liver and <= 3x SUVmax liver Marked: > 3x SUVmax liver FINDINGS: There is hypermetabolic lymphadenopathy above and below the diaphragm including the following stations: cervical, axillary, supraclavicular, mediastinal, hilar, retrocrural, retroperitoneal, iliac chain, and inguinal. There are intramuscular deposits in the right gluteal musculature. There are innumerable foci of intense FDG uptake throughout the axial and proximal appendicular skeleton including the spine, ribs, humeri, scapulae, and pelvis. Specifically is a destructive lesion with a pathologic fracture of L4 vertebral body with SUV max 9.8 (image 181). Multiple hypermetabolic splenic lesions. There is a large area of consolidation in the right upper lobe with adjacent nodularity and associated intense hypermetabolic activity maximum SUV 16.4 (image 99.) The most FDG-avid lesion is L4 lesion, with a maximum SUV of 9.8. The uptake in this lesion is: markedly greater than liver (5PS= 5). Additional CT findings: Right chest wall port catheter tip terminates in the right atrium. Moderate left pleural effusion. Diffuse body wall edema. IMPRESSION: 1. Extensive lymphomatous disease above and below the diaphragm including lymphadenopathy, osseous lesions, splenic involvement, and right gluteal intramuscular deposits. 5PS=5. 2. Large area of hypermetabolic consolidation in the right upper lobe with adjacent nodularity. Differential diagnosis includes malignant and infectious processes (including opportunistic infection in this immunocompromised patient). This could be amenable to sampling via bronchoscopy or alternatively percutaneously. Dictated by: Hari Randle M.D. The radiology attending physician has personally reviewed this study, and had reviewed and/or edited this written report and agrees with it. Electronically signed by: Clifford Christopher M.D. Richmond Ho MD IMG PET PROCEDURES Fin al Result * Lactate dehydrogenase (LD) (04/29/2023 2:41 AM CDT) Pathologist [facility] Lactate dehydrogenase (LDH) 176 100 - 250 Units/L [facility] Blood 04/29/2023 2:41 AM CDT 04/29/2023 2:56 AM CDT Shasta Sena MD LAB BLOOD ORDERABLES Final Result [facility] Department of Laboratories [place], [place] [id number] * eGFR (04/29/2023 2:41 AM CDT) Pathologist [facility] eGFR >90 90 - 130 mL/min/1. 73 m2 [facility] Comment: Interpretive Data Reference Interval Normal ?>/= [...] Current interpretive data was last reviewed 2021. Blood 04/29/2023 2:41 AM CDT 04/29/2023 2:56 AM CDT us Richmond Ho MD LAB BLOOD ORDERABLES F inal Result [facility] Department [place] [address] * (ABNORMAL) Differential, auto (04/29/2023 2:41 AM CDT) Neutrophil abs 13.0(H) 1.7 - 6.5 K/cumm [facility] Imm gran abs 0.2(H) 0.0 - 0.1 K/cumm [facility] Lymphocyte abs 0.2(L) 0.8 - 3.3 K/cumm [facility] Monocyte abs 1.0(H) 0.2 - 0.8 K/cumm [facility] Eosinophil abs 0.0 0.0 - 0.5 K/cumm [facility] Basophil abs 0.0 0.0 - 0.1 K/cumm [facility] Neutrophil pct 90.9 % [facility] Comment: Interpretive Data Percent cell count reference ranges are not reported, since discordance with absolute values may lead to misinterpretation of CBC data. Current Interpretive Data was last revised on 2017. Imm gran pct 1.0 % [facility] Comment: Interpretive Data Percent cell count reference ranges are not reported, since discordance with absolute values may lead to misinterpretation of CBC data. Current Interpretive Data was last revised on 2017. Lymphocyte pct 1.1 % [facility] Comment: Interpretive Data Percent cell count reference ranges are not reported, since discordance with absolute values may lead to misinterpretation of CBC data. Current Interpretive Data was last revised on 2017. Monocyte pct 6.8 % [facility] Comment: Interpretive Data Percent cell count reference ranges are not reported, since discordance with absolute values may lead to misinterpretation of CBC data. Current Interpretive Data was last revised on 2017. Eosinophil pct 0.1 % [facility] Comment: Interpretive Data Percent cell count reference ranges are not reported, since discordance with absolute values may lead to misinterpretation of CBC data. Current Interpretive Data was last revised on 2017. Basophil pct 0.1 % [facility] Comment: Interpretive Data Percent cell count reference ranges are not reported, since discordance with absolute values may lead to misinterpretation of CBC data. Current Interpretive Data was last revised on 2017. Blood 04/29/2023 2:41 AM CDT 04/29/2023 2:56 AM CDT us Richmond Ho MD LAB BLOOD ORDERABLES F inal Result [facility] [place] [address] * (ABNORMAL) Protime-INR (04/29/2023 2:41 AM CDT) PT 15.4(H) 10.3 - 13.7 sec [facility] INR 1.35(H) 0.90 - 1.20 [facility] Comment: Interpretive data Oral anticoagulant therapeutic ranges: Venous thromboembolism prophylaxis or treatment: 2.0-3.0 CARDIOLOGY Standard range: 2.0-3.0 High-intensity range: 2.5-3.5 Refer to indication-specific guidelines for appropriate target ranges for prosthetic heart valve replacement. Current interpretive data was last revised on 2019. Blood 04/29/2023 2:41 AM CDT 04/29/2023 3:04 AM CDT Richmond Ho MD LAB BLOOD ORDERABLES F inal Result Performing Organization Address [facility] de Phone Number [facility] [place] [address] * aPTT (04/29/2023 2:41 AM CDT) aPTT 36 28 - 38 sec [facility] Comment: Interpretive Data Heparin therapeutic range: 66.0 - 100.0 seconds. Range based on correlation with therapeutic heparin activity range of 0.3 - 0.7 Units/mL. Current interpretive data was last revised on 2023. Blood 04/29/2023 2:41 AM CDT 04/29/2023 3:04 AM CDT Richmond Ho MD LAB BLOOD ORDERABLES F inal Result Performing Organization Address [facility] de Phone Number [facility] [place] [address] * Type and screen (04/29/2023 2:41 AM CDT) Long, indirect Negative ABO Rh O Positive [facility] Blood 04/29/2023 2:41 AM CDT 04/29/2023 3:23 AM CDT Narrative [facility] - 04/29/2023 4:36 AM CDT Has the patient had Daratumumab or Isatuximab in the past 6 months?->Unknown Richmond Ho MD LAB BLOOD BANK TEST OR DERABLES Final Result [facility] [place] [address] * Phosphorus (04/29/2023 2:41 AM CDT) Pathologist [facility] Phosphorus, pl 2.4 2.3 - 4.5 mg/dL [facility] Blood 04/29/2023 2:41 AM CDT 04/29/2023 2:56 AM CDT Richmond Ho MD LAB BLOOD ORDERABLES F inal Result Performing Organization Address [facility] [[email or web address]] Co de Phone Number [facility] [place] [address] * (ABNORMAL) Comprehensive metabolic panel (04/29/2023 2:41 AM CDT) [facility] Sodium 138 135 - 145 mmol/L [facility] Potassium, pl 3.6 3.3 - 4.9 mmol/L [facility] Chloride 103 97 - 110 mmol/L [facility] CO2 29 22 - 32 mmol/L [facility] Anion gap 6 2 - 15 mmol/L [facility] BUN 15 6 - 25 mg/dL [facility] Creatinine 1.02 0.80 - 1.30 mg/dL [facility] Glucose 120 70 - 199 mg/dL [facility] Comment: Interpretive Data Fasting glucose [...] classification and Diagnosis of Diabetes Diabetes Care 2022; 46: S19-S40. Current interpretive data was last revised 2022. Calcium 8.6 8.5 - 10.3 mg/dL [facility] Bilirubin, total 0.3 0.1 - 1.2 mg/dL [facility] Protein, pl 5.8(L) 6.5 - 8.5 g/dL [facility] Albumin 2.3(L) 3.5 - 5.0 g/dL [facility] Alk phos 245(H) 40 - 130 Units/L [facility] ALT 11 7 - 55 Units/L [facility] AST 14 10 - 50 Units/L [facility] Blood 04/29/2023 2:41 AM CDT 04/29/2023 2:56 AM CDT Richmond Ho MD LAB BLOOD ORDERABLES F inal Result Performing Organization Address [facility]/ZIP Co de Phone Number [facility] Department [place] [address] * Magnesium (04/29/2023 2:41 AM CDT) Pathologist [facility] Magnesium 1.8 1.4 - 2.5 mg/dL [facility] Blood 04/29/2023 2:41 AM CDT 04/29/2023 2:56 AM CDT Richmond Ho MD LAB BLOOD ORDERABLES F inal Result Performing Organization Address City/[facility]/ZIP Co de Phone Number [facility] [place] [address] * (ABNORMAL) CBC with auto differential (04/29/2023 2:41 AM CDT) Pathologist [facility] WBC 14.3(H) 3.8 - 9.9 K/cumm [facility] Hgb 7.1(L) 13.0 - 17.5 g/dL [facility] Comment: Interpretive Data A reference range for this assay has not been established for patients with an unknown legal sex. Please refer to the laboratory test catalog for established sex-specific reference intervals. Current interpretive data was last revised on 2023. Hct 23.1(L) 38.9 - 50.3 % [facility] Comment: Interpretive Data A reference range for this assay has not been established for patients with an unknown legal sex. Please refer to the laboratory test catalog for established sex-specific reference intervals. Current interpretive data was last revised on 2023. Plt 486(H) 150 - 400 K/cumm [facility] MPV 8.9(L) 9.1 - 12.3 fL [facility] RBC 3.12(L) 4.30 - 5.80 M/cumm [facility] Comment: Interpretive Data A reference range for this assay has not been established for patients with an unknown legal sex. Please refer to the laboratory test catalog for established sex-specific reference intervals. Current interpretive data was last revised on 2023. MCV 74.0(L) 81.3 - 96.4 fL [facility] MCH 22.8(L) 27.1 - 33.3 pg [facility] MCHC 30.7(L) 32.3 - 35.7 g/dL [facility] RDW CV 17.2(H) 11.1 - 14.9 % [facility] RDW SD 46.2 35.7 - 48.1 fL [facility] NRBC abs 0.00 0.00 - 0.01 K/cumm [facility] Blood 04/29/2023 2:41 AM CDT 04/29/2023 2:56 AM CDT us Richmond Ho MD LAB BLOOD ORDERABLES F inal Result [facility] [place] [address] * Neuro MR Outside Consult (04/29/2023 2:23 AM CDT) Anatomical Region Laterality Modality N/A Magnetic Resonan ce 04/29/2023 10:3 2 AM CDT Impressions 04/29/2023 10:32 AM CDT Diffusely abnormal bone marrow throughout the cervical and thoracic spine concerning for lymphoma involvement of the spinal column bone marrow. ??Within the cervical spine, there is a suspected epidural extension of tumor from C3 through C5 which contributes to mild canal stenosis at C3-C4. The findings, conclusions and recommendations within this report do not replace the initial findings, conclusions ??and recommendations made at the facility where the study was performed based upon the imaging and clinical condition at that time. ??Comparison with the prior report and clinical history is necessary. ??The provided images may or may not represent the [place] source data set and thus may contain changes that may lower the accuracy of this second-opinion interpretation. Electronically signed by: Leslie House M.D. Narrative 04/29/2023 10:32 AM CDT EXAMINATION: RADIOLOGY CONSULTATION ON OUTSIDE IMAGING STUDY STUDY INITIALLY PERFORMED: 04/25/2023 at [facility]. TYPE OF STUDY: Multiple MRI images of the thoracic spine without and with contrast and cervical spine without contrast ??are provided at the time of this interpretation. CONTRAST ROUTE: Contrast was administered via the intravenous route. The protocol was adequate to address the clinical question. The outside final report was not available at the time of this second opinion interpretation. TYPE OF CONSULTATION: Consult on outside imaging study with images submitted through [facility] DATE OF CONSULTATION: 04/29/2023 10:26 AM HISTORY: Hodgkin lymphoma COMPARISON: None available. FINDINGS: Cervical spine: There is abnormal bone marrow signal intensity within the C4, C5, C6, C7, and T1-T4 vertebral bodies. ??Additionally, there is some abnormal bone marrow signal intensity within the left facets of C4 and C5 and the right facet of C2. ??Noncontrast images suggest epidural extension of tumor from C3 through C5 contributing to mild spinal canal stenosis at C3-C4. ??There also appears to be infiltration of tumor into the neural foramina at least at C4-C5. ??Spinal cord signal intensity is normal. Thoracic spine: There is diffusely abnormal bone marrow signal throughout the entire thoracic spine, predominantly in the vertebral bodies but also extending to several levels within the posterior elements. ??There is a diffuse background of low density bone marrow signal intensity with multiple superimposed enhancing foci within the bone marrow. ??There is no definite epidural extension of tumor into the spinal canal or neural foramina. ??Spinal cord signal intensity is normal. ??There are no areas of canal stenosis. Procedure Note Leslie House MD - 04/29/2023 EXAMINATION: RADIOLOGY CONSULTATION ON OUTSIDE IMAGING STUDY STUDY INITIALLY PERFORMED: 04/25/2023 at [facility]. TYPE OF STUDY: Multiple MRI images of the thoracic spine without and with contrast and cervical spine without contrast are provided at the time of this interpretation. CONTRAST ROUTE: Contrast was administered via the intravenous route. The protocol was adequate to address the clinical question. The outside final report was not available at the time of this second opinion interpretation. TYPE OF CONSULTATION: Consult on outside imaging study with images submitted through [facility] DATE OF CONSULTATION: 04/29/2023 10:26 AM HISTORY: Hodgkin lymphoma COMPARISON: None available. FINDINGS: Cervical spine: There is abnormal bone marrow signal intensity within the C4, C5, C6, C7, and T1-T4 vertebral bodies. Additionally, there is some abnormal bone marrow signal intensity within the left facets of C4 and C5 and the right facet of C2. Noncontrast images suggest epidural extension of tumor from C3 through C5 contributing to mild spinal canal stenosis at C3-C4. There also appears to be infiltration of tumor into the neural foramina at least at C4-C5. Spinal cord signal intensity is normal. Thoracic spine: There is diffusely abnormal bone marrow signal throughout the entire thoracic spine, predominantly in the vertebral bodies but also extending to several levels within the posterior elements. There is a diffuse background of low density bone marrow signal intensity with multiple superimposed enhancing foci within the bone marrow. There is no definite epidural extension of tumor into the spinal canal or neural foramina. Spinal cord signal intensity is normal. There are no areas of canal stenosis. IMPRESSION: Diffusely abnormal bone marrow throughout the cervical and thoracic spine concerning for lymphoma involvement of the spinal column bone marrow. Within the cervical spine, there is a suspected epidural extension of tumor from C3 through C5 which contributes to mild canal stenosis at C3-C4. The findings, conclusions and recommendations within this report do not replace the initial findings, conclusions and recommendations made at the facility where the study was performed based upon the imaging and clinical condition at that time. Comparison with the prior report and clinical history is necessary. The provided images may or may not represent the [place] source data set and thus may contain changes that may lower the accuracy of this second-opinion interpretation. Electronically signed by: Leslie House M.D. Shasta Sena MD IM MRI PROCEDURES Final R esult * Neuro MR Outside Consult (04/29/2023 2:19 AM CDT) Anatomical Region Laterality Modality N/A Magnetic Resonan ce 04/29/2023 10:3 2 AM CDT Impressions 04/29/2023 10:32 AM CDT Diffusely abnormal bone marrow throughout the cervical and thoracic spine concerning for lymphoma involvement of the spinal column bone marrow. ??Within the cervical spine, there is a suspected epidural extension of tumor from C3 through C5 which contributes to mild canal stenosis at C3-C4. The findings, conclusions and recommendations within this report do not replace the initial findings, conclusions ??and recommendations made at the facility where the study was performed based upon the imaging and clinical condition at that time. ??Comparison with the prior report and clinical history is necessary. ??The provided images may or may not represent the [place] source data set and thus may contain changes that may lower the accuracy of this second-opinion interpretation. Electronically signed by: Leslie House M.D. Narrative 04/29/2023 10:32 AM CDT EXAMINATION: RADIOLOGY CONSULTATION ON OUTSIDE IMAGING STUDY STUDY INITIALLY PERFORMED: 04/25/2023 at [facility]. TYPE OF STUDY: Multiple MRI images of the thoracic spine without and with contrast and cervical spine without contrast ??are provided at the time of this interpretation. CONTRAST ROUTE: Contrast was administered via the intravenous route. The protocol was adequate to address the clinical question. The outside final report was not available at the time of this second opinion interpretation. TYPE OF CONSULTATION: Consult on outside imaging study with images submitted through [facility] DATE OF CONSULTATION: 04/29/2023 10:26 AM HISTORY: Hodgkin lymphoma COMPARISON: None available. FINDINGS: Cervical spine: There is abnormal bone marrow signal intensity within the C4, C5, C6, C7, and T1-T4 vertebral bodies. ??Additionally, there is some abnormal bone marrow signal intensity within the left facets of C4 and C5 and the right facet of C2. ??Noncontrast images suggest epidural extension of tumor from C3 through C5 contributing to mild spinal canal stenosis at C3-C4. ??There also appears to be infiltration of tumor into the neural foramina at least at C4-C5. ??Spinal cord signal intensity is normal. Thoracic spine: There is diffusely abnormal bone marrow signal throughout the entire thoracic spine, predominantly in the vertebral bodies but also extending to several levels within the posterior elements. ??There is a diffuse background of low density bone marrow signal intensity with multiple superimposed enhancing foci within the bone marrow. ??There is no definite epidural extension of tumor into the spinal canal or neural foramina. ??Spinal cord signal intensity is normal. ??There are no areas of canal stenosis. Procedure Note Leslie House MD - 04/29/2023 EXAMINATION: RADIOLOGY CONSULTATION ON OUTSIDE IMAGING STUDY STUDY INITIALLY PERFORMED: 04/25/2023 at [facility]. TYPE OF STUDY: Multiple MRI images of the thoracic spine without and with contrast and cervical spine without contrast are provided at the time of this interpretation. CONTRAST ROUTE: Contrast was administered via the intravenous route. The protocol was adequate to address the clinical question. The outside final report was not available at the time of this second opinion interpretation. TYPE OF CONSULTATION: Consult on outside imaging study with images submitted through [facility] DATE OF CONSULTATION: 04/29/2023 10:26 AM HISTORY: Hodgkin lymphoma COMPARISON: None available. FINDINGS: Cervical spine: There is abnormal bone marrow signal intensity within the C4, C5, C6, C7, and T1-T4 vertebral bodies. Additionally, there is some abnormal bone marrow signal intensity within the left facets of C4 and C5 and the right facet of C2. Noncontrast images suggest epidural extension of tumor from C3 through C5 contributing to mild spinal canal stenosis at C3-C4. There also appears to be infiltration of tumor into the neural foramina at least at C4-C5. Spinal cord signal intensity is normal. Thoracic spine: There is diffusely abnormal bone marrow signal throughout the entire thoracic spine, predominantly in the vertebral bodies but also extending to several levels within the posterior elements. There is a diffuse background of low density bone marrow signal intensity with multiple superimposed enhancing foci within the bone marrow. There is no definite epidural extension of tumor into the spinal canal or neural foramina. Spinal cord signal intensity is normal. There are no areas of canal stenosis. IMPRESSION: Diffusely abnormal bone marrow throughout the cervical and thoracic spine concerning for lymphoma involvement of the spinal column bone marrow. Within the cervical spine, there is a suspected epidural extension of tumor from C3 through C5 which contributes to mild canal stenosis at C3-C4. The findings, conclusions and recommendations within this report do not replace the initial findings, conclusions and recommendations made at the facility where the study was performed based upon the imaging and clinical condition at that time. Comparison with the prior report and clinical history is necessary. The provided images may or may not represent the [place] source data set and thus may contain changes that may lower the accuracy of this second-opinion interpretation. Electronically signed by: Leslie House M.D. us Ovidio Weber MD IM MRI PROCEDURES Final Resu lt * MRI Brain WO Contrast (04/28/2023 8:38 PM CDT) Anatomical Region Laterality Modality Head and Neck N/A Magnetic Resonan ce 04/28/2023 8:46 PM CDT Impressions 04/29/2023 8:33 AM CDT Limited MRI without acute abnormality. Recommend repeat exam Dictated by: Paul Sanders MD The radiology attending physician has personally reviewed this study, and had reviewed and/or edited this written report and agrees with it. Electronically signed by: Leslie House M.D. Narrative 04/29/2023 8:33 AM CDT EXAMINATION: Limited magnetic resonance imaging (MRI) of the brain and brainstem without contrast HISTORY: Diplopia TECHNIQUE: Patient unable to finish exam due to pain. MRI of the brain and brainstem was performed with sagittal T1 MPRAGE and axial FLAIR sequences. COMPARISON: None Available. FINDINGS: No appreciable intracranial mass. ??No midline shift or hydrocephalus. No evidence of hemorrhage on the limited sequences. ??The sella, optic chiasm, corpus callosum, and craniocervical junction are unremarkable. ??Normal visualized orbits, paranasal sinuses, and mastoid air cells. ?? Procedure Note Leslie House MD - 04/29/2023 EXAMINATION: Limited magnetic resonance imaging (MRI) of the brain and brainstem without contrast HISTORY: Diplopia TECHNIQUE: Patient unable to finish exam due to pain. MRI of the brain and brainstem was performed with sagittal T1 MPRAGE and axial FLAIR sequences. COMPARISON: None Available. FINDINGS: No appreciable intracranial mass. No midline shift or hydrocephalus. No evidence of hemorrhage on the limited sequences. The sella, optic chiasm, corpus callosum, and craniocervical junction are unremarkable. Normal visualized orbits, paranasal sinuses, and mastoid air cells. IMPRESSION: Limited MRI without acute abnormality. Recommend repeat exam Dictated by: Paul Sanders MD The radiology attending physician has personally reviewed this study, and had reviewed and/or edited this written report and agrees with it. Electronically signed by: Leslie House M.D. Richmond Ho MD IMG MRI PROCEDURES Fin al Result * Blood culture Blood (04/28/2023 6:30 PM CDT) Report Final Report: No growth [facility] Blood 04/28/2023 6:30 PM CDT 04/28/2023 8:26 PM CDT [facility]ative [facility] 05/03/2023 7:00 AM CDT Collection->Existing Line Line Location->Port-a-cath 1. ?Blood cultures are incubated for 4 days on a continuously monitored blood culture system. The first report of a negative culture is issued within 24 hours of receipt of the specimen in the laboratory. 2. ?Positive culture results are reported as soon as they are detected. 3. ?The most important factor for detection of microbes in the setting of bloodstream infection is the volume of blood submitted for culture. Failure to collect an optimal blood volume can result in false negative blood cultures. For pediatric patients, the recommended blood volume to collect is 1 mL of blood per year of patient age (up to 20 mL) per blood culture set. For adult patients, 20 mL of blood, divided equally between aerobic and anaerobic blood culture bottles, is recommended for each blood culture set. 4. ?For blood cultures with Gram-positive cocci, a rapid molecular test for organism identification may be performed using the [employer] Gram-Positive Blood Culture Assay. This assay detects microbial DNA in positive blood culture broth via hybridization of target DNA to capture oligonucleotides on a microarray. This assay has been cleared by the [place] Food and Drug Administration and its performance characteristics have been verified by the [facility] Microbiology Laboratory. 5. ?For questions about this culture, contact the Microbiology Laboratory at [phone]. Interpretive data was last revised on 2019. Richmond Ho MD LAB MICROBIOLOGY - GEN ERAL ORDERABLES Final Result Performing Organization Address City/[facility] [[email or web address]] Co de Phone Number [facility] [place] [address] * Mold Blood Culture Blood (04/28/2023 6:30 PM CDT) Report Final Report: No growth of fungus [facility] Blood 04/28/2023 6:30 PM CDT 04/28/2023 8:26 PM CDT Narrative [facility] - 05/26/2023 7:25 AM TAPE WEAVER Testing performed by [facility] Microbiology Laboratory ([phone]). Richmond Ho MD LAB MICROBIOLOGY - GEN ERAL ORDERABLES Final Result Performing Organization Address [facility] [[email or web address]] Co de Phone Number [facility] [place], [place] [id number] * US Vein Duplex Lower Extremity Bilateral Complete (04/28/2023 5:49 PM CDT) Anatomical Region Laterality Modality Vascular Bilateral Ultrasound 04/28/2023 7:22 PM CDT Narrative 04/28/2023 11:00 PM CDT [employer] - Department of Vascular Surgery, Vascular Laboratory [address] [place] [id number] Lower Extremity Venous Ultrasound Report Patient Name: CRYSTAL CAPONE : 1990 (33y 2m) Study Date: 04/28/2023 7:22:52 PM Gender: M Tech: IA Location: [id number] Ref.Provider: RICHMOND HO Quality: Adequate Order Provider: RICHMOND HO Procedures: Vascular Report: Venous Duplex imaging was performed bilaterally in the lower extremities. The common femoral, femoral, popliteal, posterior tibial, peroneal veins were evaluated for patency, spontaneity and phasicity with Doppler, compression and augmentation maneuvers. Great saphenous vein proximal at the junction was evaluated with compression maneuvers. Indications: Localized edema. Findings: Performing Dispatch Supervisor: Harleen Mosley RVT. Bilateral: Venous Doppler signals [...] above. Electronically Signed By: Omid Anaya MD FACS 2023-04-28 22:59:59 CDT CC: CC: Procedure Note Omid Anaya MD - 04/28/2023 [facility] - Department of Vascular Surgery,Vascular Laboratory [address] [place] [address] Lower Extremity Venous Ultrasound Report Patient Name: CRYSTAL CAPONEPatient ID: [id number] : 1990 (33y 2m)Study Date: 04/28/2023 7:22:52 PM Gender: MAccession #: [id number] Tech: IALocation: [id number] Ref.Provider: RICHMOND HOQuality: Adequate Order Provider: RCIHMOND HOAccount #: [id number] Procedures: Vascular Report: Venous Duplex imaging was performed bilaterally in the lower extremities.The common femoral, femoral, popliteal, posterior tibial, peroneal veins wereevaluated for patency, spontaneity and phasicity with Doppler, compression and augmentationmaneuvers. Great saphenous vein proximal at the junction was evaluated with compressionmaneuvers. Indications: Localized edema. Findings: Performing Dispatch Supervisor: Harleen Mosley RVT. Bilateral: Venous Doppler signals [...] above. Electronically Signed By: Omid Anaya MD [facility] 2023-04-28 22:59:59 CDT CC: CC: us Richmond Ho MD IMG US PROCEDURES Sara l Result * XR Abdomen Ap 1 Vw (04/28/2023 4:36 PM CDT) Anatomical Region Laterality Modality Body, Abdomen N/A Computed Radiogr aphy 04/28/2023 5:11 PM CDT Impressions 04/28/2023 5:11 PM CDT A single view of the abdomen is submitted for evaluation. Moderate stool burden is seen in the right hemicolon, with only mild stool burden in the left hemicolon. Electronically signed by: Elodia Harvey M.D. Narrative 04/28/2023 5:11 PM CDT EXAMINATION: Abdomen, one view. HISTORY: Constipation COMPARISON: None Procedure Note Elodia Harvey MD - 04/28/2023 EXAMINATION: Abdomen, one view. HISTORY: Constipation COMPARISON: None IMPRESSION: A single view of the abdomen is submitted for evaluation. Moderate stool burden is seen in the right hemicolon, with only mild stool burden in the left hemicolon. Electronically signed by: Elodia Harvey M.D. Richmond Ho MD IMG XR PROCEDURES Sara l Result * ECG 12 lead (04/28/2023 4:20 PM CDT) Ventricular Rate EKG/Min 91 BPM [facility] Atrial Rate 91 BPM [facility] IA-Interval (MSEC) 138 ms [facility] QRS-Interval (MSEC) 94 ms [facility] QT-Interval (MSEC) 358 ms [facility] QTc 440 ms [facility] P Burns 44 degrees [facility] R Burns 42 degrees [facility] T Burns 17 degrees [facility] Diagnosis Normal sinus rhythm Nonspecific T wave abnormality Abnormal ECG No previous ECGs available Confirmed by MAYELA GUAN M.D ([id number]) on 04/28/2023 7:01:48 PM [facility] 04/28/2023 4:20 PM CDT 04/28/2023 7:01 PM CDT Richmond Ho MD ECG ORDERABLES Final Result Performing Organization Address [facility] [[email or web address]] Co de Phone Number [facility] * Vancomycin level random (04/28/2023 2:38 PM CDT) Pathologist [facility] Vancomycin random 11.6 mcg/mL [facility] Comment: Interpretive Data No reference ranges have been established for random drug levels. Current Interpretive Data was last revised on 2020. Blood 04/28/2023 2:38 PM CDT 04/28/2023 3:08 PM CDT Shasta Sena MD LAB BLOOD ORDERABLES Final Result Performing Organization Address [facility] [[email or web address]] Co de Phone Number [facility] Department [place] [address] * (ABNORMAL) Urinalysis, microscopic only (04/28/2023 2:38 PM CDT) [facility] WBC, ur 0-5 0 - 5 /HPF [facility] RBC, ur 0-2 0 - 2 /HPF [facility] Epithelial cells, squamous, ur 1-5 0 - 5 /HPF [facility] Bacteria, ur Trace(A) [facility] Mucous, ur Present(A) [facility] Culture Reflex Comment Reflex conditions for urine culture (WBC >10) not met. [facility] Urine, clean voided 04/28/2023 2:38 PM CDT 04/28/2023 3:56 PM CDT Richmond Ho MD LAB URINE ORDERABLES F inal Result Performing Organization Address [facility] [[email or web address]] Co de Phone Number [facility] [place] [address] * (ABNORMAL) Ferritin (04/28/2023 2:38 PM CDT) [facility] Ferritin 1,907(H) 30 - 400 ng/mL [facility] Comment: Interpretive Data A reference range for this assay has not been established for patients with an unknown legal sex. Please refer to the laboratory test catalog for established sex-specific reference intervals. Current interpretive data was last revised on 2023. Blood 04/28/2023 2:38 PM CDT 04/28/2023 3:08 PM CDT Richmond Ho MD LAB BLOOD ORDERABLES F inal Result Performing Organization Address City/[facility]/ZIP Co de Phone Number [facility] [place] [address] * (ABNORMAL) Iron profile w/ IBC (04/28/2023 2:38 PM CDT) [facility] Iron 37(L) 50 - 150 mcg/dL [facility] Comment: Interpretive Data A reference range for this assay has not been established for patients with an unknown legal sex. Please refer to the laboratory test catalog for established sex-specific reference intervals. Current interpretive data was last revised on 2023. TIBC 147(L) 250 - 400 mcg/dL [facility] Transferrin saturation 25 20 - 50 % [facility] Blood 04/28/2023 2:38 PM CDT 04/28/2023 3:08 PM CDT Richmond Ho MD LAB BLOOD ORDERABLES F inal Result Performing Organization Address [facility] de Phone Number [facility] [place] [address] * Aspergillus galactomannan antigen Blood (04/28/2023 2:38 PM CDT) Aspergillus galactomannan Ag <0.500 <0.5 Index [facility] Comment: ADDITIONAL INFORMATION This is a qualitative test and the resulted index value is not indicative of disease severity. ??Serial testing is recommended for patients at high risk for invasive aspergillosis. This assay was performed using the FDA-cleared [facility] [employer] Aspergillus Galactomannan EIA. Test Performed by: [place] [address] Sales Counselor: Stevan Rao M.D. Ph.D.; CLIA# [id number] Blood 04/28/2023 2:38 PM CDT 04/28/2023 3:27 PM CDT Richmond Ho MD LAB MICROBIOLOGY - GEN ERAL ORDERABLES Final Result Performing Organization Address [facility] [[email or web address]] Co de Phone Number [facility] [place] [address] * Blastomyces antibody, EIA, serum Blood (04/28/2023 2:38 PM CDT) Blastomyces Antibody Negative Negative [facility] Comment: A single negative result does not exclude the diagnosis of blastomycosis. ??Repeat testing on a new sample in 7-14 days if clinically indicated. Test Performed by: [facility] [address] [place] [address] Sales Counselor: Stevan Rao M.D. Ph.D.; IA# [id number] Blood 04/28/2023 2:38 PM CDT 04/28/2023 4:32 PM CDT Richmond Ho MD LAB MICROBIOLOGY - GEN ERAL ORDERABLES Final Result Performing Organization Address [facility] [[email or web address]] Co de Phone Number [facility] [place] [address] * Cryptococcal Antigen, Serum Blood (04/28/2023 2:38 PM CDT) Cryptococcus ag, Serum Negative Negative [facility] Comment: The cryptococcal antigen test was performed using the [employer] Lateral Flow Assay. This assay is FDA cleared for serum and CSF specimens and for the detection of Cryptococcus neoformans and Cryptococcus gattii. If the result is positive, the specimen will be titered and reported from less than 1:5 to greater than or equal to 1:2560. This assay does not distinguish between C. neoformans and C. gattii. Testing hemolyzed serum samples may lead to false negatives. Current interpretive data last revised 2018. Blood 04/28/2023 2:38 PM CDT 04/28/2023 4:00 PM CDT Richmond Ho MD LAB MICROBIOLOGY - GEN ERAL ORDERABLES Final Result Performing Organization Address [facility] [[email or web address]] Co de Phone Number [facility] [place] [address] * Histoplasma Antibody Blood (04/28/2023 2:38 PM CDT) Histoplasma Ab, mycelial CF Negative Negative [facility] Histoplasma Ab, yeast CF Negative Negative [facility] Histoplasma Ab, Immunodiffusion Negative Negative [facility] Comment: A negative complement fixation and immunodiffusion (CF/ID) result does not exclude the diagnosis of histoplasmosis. ?? Repeat testing by CF/ID in 1-2 weeks if clinically indicated. Test Performed by: [facility] [address] [place] [address] Sales Counselor: Stevan Rao M.D. Ph.D.; CLIA# [id number] Blood 04/28/2023 2:38 PM CDT 04/28/2023 4:43 PM CDT us Richmond Ho MD LAB MICROBIOLOGY - GEN ERAL ORDERABLES Final Result Performing Organization Address City/State/[facility] [[email or web address]] Co de Phone Number [facility] Department [place] [address] * Histoplasma Antigen Urine (04/28/2023 2:38 PM CDT) Pathologist [facility] Histo Ag Ur result None Detected None Detected [facility] Histo Ag Ur interp Negative Negative [facility] Comment: Result Interpretation: Reference interval: None Detected Results reported as ng/mL in 0.20 - 20.00 ng/mL range Results above 20.00 ng/mL are reported as 'Positive, Above the Limit of Quantification' Testing Performed by: [employer] [address] [place] [address] [place] [address]. This test was developed and its performance characteristics determined by [employer] It has not been cleared or approved by the FDA; however, FDA clearance or approval is not currently required for clinical use. The results are not intended to be used as the sole means for clinical diagnosis or patient management decisions. Interpretative data updated 09/02/2020 Urine 04/28/2023 2:38 PM CDT 04/28/2023 4:08 PM CDT Richmond Ho MD LAB MICROBIOLOGY - GEN ERAL ORDERABLES Final Result [facility] Department [place] [address] * Blood culture Blood (04/28/2023 2:38 PM CDT) Report Final Report: No growth [facility] Blood 04/28/2023 2:38 PM CDT 04/28/2023 3:09 PM CDT Narrative [facility] - 05/02/2023 4:00 PM CDT Collection->Peripheral 1. ?Blood cultures are incubated for 4 days on a continuously monitored blood culture system. The first report of a negative culture is issued within 24 hours of receipt of the specimen in the laboratory. 2. ?Positive culture results are reported as soon as they are detected. 3. ?The most important factor for detection of microbes in the setting of bloodstream infection is the volume of blood submitted for culture. Failure to collect an optimal blood volume can result in false negative blood cultures. For pediatric patients, the recommended blood volume to collect is 1 mL of blood per year of patient age (up to 20 mL) per blood culture set. For adult patients, 20 mL of blood, divided equally between aerobic and anaerobic blood culture bottles, is recommended for each blood culture set. 4. ?For blood cultures with Gram-positive cocci, a rapid molecular test for organism identification may be performed using the [employer] Gram-Positive Blood Culture Assay. This assay detects microbial DNA in positive blood culture broth via hybridization of target DNA to capture oligonucleotides on a microarray. This assay has been cleared by the [place] Food and Drug Administration and its performance characteristics have been verified by the [facility] Microbiology Laboratory. 5. ?For questions about this culture, contact the Microbiology Laboratory at [phone]. Interpretive data was last revised on 2019. Richmond Ho MD LAB MICROBIOLOGY - GEN ERAL ORDERABLES Final Result Performing Organization Address City/[facility]/ZIP Co de Phone Number MICHAELA [facility] Department [place] [address] * (ABNORMAL) Urinalysis reflex to microscopic and culture Urine, clean voided (04/28/2023 2:38 PM CDT) Color, ur Yellow Yellow [facility] Clarity, ur Clear Clear [facility] Specific gravity, ur 1.030 1.003 - 1.030 [facility] pH, urine 6.0 [facility] Comment: Interpretive Data ? Urine pH is affected by diet, medications, systemic acid-base disturbances, and renal tubular function. ??pH may affect urinary stone formation. ??For example, urine pH below 6.0 may help reduce the tendency for calcium phosphate stones and pH greater than 6.0 may reduce the tendency for uric acid stone formation. Source: [facility] [place] Current Interpretive Data was last revised on 2017 Protein, ur ql 1+(A) Negative [facility] Glucose, ur ql 1+(A) Negative [facility] Ketones, ur Negative Negative [facility] Bilirubin, ur Negative Negative [facility] Blood, ur Negative Negative [facility] Urobilinogen, ur 2.0(A) <2.0 mg/dL [facility] Nitrite, ur Negative Negative [facility] Leukocyte esterase, ur Negative Negative [facility] UA reflex comment Reflex to microscopic UA will be performed. [facility] Urine, clean voided 04/28/2023 2:38 PM CDT 04/28/2023 3:56 PM CDT us Richmond Ho MD LAB MICROBIOLOGY - GEN ERAL ORDERABLES Final Result [facility] Department [place] [address] * Check Sample (04/28/2023 2:38 PM CDT) ABO Rh O Positive [facility] OTHER 04/28/2023 2:38 PM CDT 04/28/2023 3:11 PM CDT us Shasta Sena MD LAB BLOOD ORDERABLES Final Result [facility]A [facility]NE [facility] Department [place] [address] * XR Chest 1 View (04/28/2023 1:35 PM CDT) Anatomical Region Laterality Modality Body, Chest N/A Computed Radiogr aphy 04/28/2023 2:31 PM CDT Impressions 04/28/2023 2:35 PM CDT No priors available for comparison. Right internal jugular port overlies the right cavoatrial junction. Cardiomediastinal silhouette is normal. ??No pleural effusion or pneumothorax. ??Right upper lobe airspace opacity which is likely an infectious pneumonia, recommend follow-up in 2-4 weeks to evaluate for resolution. ?? Dictated by: Mert Martinez MD The radiology attending physician has personally reviewed this study, and had reviewed and/or edited this written report and agrees with it. Electronically signed by: Danyel Lombardi M.D. Narrative 04/28/2023 2:35 PM CDT EXAMINATION: 1 view chest radiograph Procedure Note Danyel Lombardi MD - 04/28/2023 EXAMINATION: 1 view chest radiograph IMPRESSION: No priors available for comparison. Right internal jugular port overlies the right cavoatrial junction. Cardiomediastinal silhouette is normal. No pleural effusion or pneumothorax. Right upper lobe airspace opacity which is likely an infectious pneumonia, recommend follow-up in 2-4 weeks to evaluate for resolution. Dictated by: Mert Martinez MD The radiology attending physician has personally reviewed this study, and had reviewed and/or edited this written report and agrees with it. Electronically signed by: Danyel Lombardi M.D. us Richmond Ho MD IMG XR PROCEDURES Sara l Result * eGFR (04/28/2023 12:52 PM CDT) eGFR >90 90 - 130 mL/min/1. 73 m2 [facility] Comment: Interpretive [...] Current interpretive data was last reviewed 2021. Blood 04/28/2023 12:5 2 PM CDT 04/28/2023 1:06 PM CDT Richmond Ho MD LAB BLOOD ORDERABLES F inal Result [facility] [place] [address] * (ABNORMAL) Differential, auto (04/28/2023 12:52 PM CDT) Neutrophil abs 11.8(H) 1.7 - 6.5 K/cumm [facility] Imm gran abs 0.2(H) 0.0 - 0.1 K/cumm [facility] Lymphocyte abs 0.1(L) 0.8 - 3.3 K/cumm [facility] Monocyte abs 0.5 0.2 - 0.8 K/cumm [facility] Eosinophil abs 0.0 0.0 - 0.5 K/cumm [facility] Basophil abs 0.0 0.0 - 0.1 K/cumm [facility] Neutrophil pct 93.9 % [facility] Comment: Interpretive Data Percent cell count reference ranges are not reported, since discordance with absolute values may lead to misinterpretation of CBC data. Current Interpretive Data was last revised on 2017. Imm gran pct 1.4 % [facility] Comment: Interpretive Data Percent cell count reference ranges are not reported, since discordance with absolute values may lead to misinterpretation of CBC data. Current Interpretive Data was last revised on 2017. Lymphocyte pct 1.0 % [facility] Comment: Interpretive Data Percent cell count reference ranges are not reported, since discordance with absolute values may lead to misinterpretation of CBC data. Current Interpretive Data was last revised on 2017. Monocyte pct 3.6 % [facility] Comment: Interpretive Data Percent cell count reference ranges are not reported, since discordance with absolute values may lead to misinterpretation of CBC data. Current Interpretive Data was last revised on 2017. Eosinophil pct 0.0 % [facility] Comment: Interpretive Data Percent cell count reference ranges are not reported, since discordance with absolute values may lead to misinterpretation of CBC data. Current Interpretive Data was last revised on 2017. Basophil pct 0.1 % [facility] Comment: Interpretive Data Percent cell count reference ranges are not reported, since discordance with absolute values may lead to misinterpretation of CBC data. Current Interpretive Data was last revised on 2017. Blood 04/28/2023 12:5 2 PM CDT 04/28/2023 1:07 PM CDT us Richmond Ho MD LAB BLOOD ORDERABLES F inal Result [facility] Department [place] [address] * (ABNORMAL) Erythrocyte sedimentation rate (04/28/2023 12:52 PM CDT) Pathologist [facility] Erythrocyte sedimentation rate 83(H) 1 - 15 mm/hr [facility] Blood 04/28/2023 12:5 2 PM CDT 04/28/2023 1:07 PM CDT Richmond Ho MD LAB BLOOD ORDERABLES F inal Result Performing Organization Address [facility] [[email or web address]] Co de Phone Number [facility] [place] [address] * Type and screen (04/28/2023 12:52 PM CDT) Pathologist [facility] Long, indirect Negative ABO Rh O Positive [facility] Blood 04/28/2023 12:5 2 PM CDT 04/28/2023 1:07 PM CDT Narrative [facility] - 04/28/2023 1:57 PM CDT Has the patient had Daratumumab or Isatuximab in the past 6 months?->Unknown Richmond Ho MD LAB BLOOD BANK TEST OR DERABLES Final Result Performing Organization Address [facility] [[email or web address]] Co de Phone Number [facility] [place] [address] * Phosphorus (04/28/2023 12:52 PM CDT) Pathologist [facility] Phosphorus, pl 3.0 2.3 - 4.5 mg/dL [facility] Blood 04/28/2023 12:5 2 PM CDT 04/28/2023 1:06 PM CDT Richmond Ho MD LAB BLOOD ORDERABLES F inal Result Performing Organization Address [facility] [[email or web address]] Co de Phone Number [facility] Department [place] [address] * Magnesium (04/28/2023 12:52 PM CDT) Magnesium 1.7 1.4 - 2.5 mg/dL [facility] Blood 04/28/2023 12:5 2 PM CDT 04/28/2023 1:06 PM CDT us Richmond Ho MD LAB BLOOD ORDERABLES F inal Result [facility] Department [place] [address] * (ABNORMAL) Comprehensive metabolic panel (04/28/2023 12:52 PM CDT) Sodium 135 135 - 145 mmol/L [facility] Potassium, pl 3.6 3.3 - 4.9 mmol/L [facility] Chloride 98 97 - 110 mmol/L [facility] CO2 29 22 - 32 mmol/L [facility] Anion gap 8 2 - 15 mmol/L [facility] BUN 16 6 - 25 mg/dL [facility] Creatinine 0.96 0.80 - 1.30 mg/dL [facility] Glucose 134 70 - 199 mg/dL [facility] Comment: Interpretive Data Fasting glucose [...] Current interpretive data was last revised 2022. Calcium 8.6 8.5 - 10.3 mg/dL [facility] Bilirubin, total 0.4 0.1 - 1.2 mg/dL [facility] Protein, pl 5.9(L) 6.5 - 8.5 g/dL [facility] Albumin 2.7(L) 3.5 - 5.0 g/dL [facility] Alk phos 293(H) 40 - 130 Units/L [facility] ALT 10 7 - 55 Units/L [facility] AST 16 10 - 50 Units/L [facility] Blood 04/28/2023 12:5 2 PM CDT 04/28/2023 1:06 PM CDT Richmond Ho MD LAB BLOOD ORDERABLES F inal Result [facility] Department [place] [address] * (ABNORMAL) CBC with auto differential (04/28/2023 12:52 PM CDT) [facility] WBC 12.5(H) 3.8 - 9.9 K/cumm [facility] Hgb 8.0(L) 13.0 - 17.5 g/dL [facility] Comment: Interpretive Data A reference range for this assay has not been established for patients with an unknown legal sex. Please refer to the laboratory test catalog for established sex-specific reference intervals. Current interpretive data was last revised on 2023. Hct 25.2(L) 38.9 - 50.3 % [facility] Comment: Interpretive Data A reference range for this assay has not been established for patients with an unknown legal sex. Please refer to the laboratory test catalog for established sex-specific reference intervals. Current interpretive data was last revised on 2023. Plt 465(H) 150 - 400 K/cumm [facility] MPV 8.8(L) 9.1 - 12.3 fL [facility] RBC 3.45(L) 4.30 - 5.80 M/cumm [facility] Comment: Interpretive Data A reference range for this assay has not been established for patients with an unknown legal sex. Please refer to the laboratory test catalog for established sex-specific reference intervals. Current interpretive data was last revised on 2023. MCV 73.0(L) 81.3 - 96.4 fL [facility] MCH 23.2(L) 27.1 - 33.3 pg [facility] MCHC 31.7(L) 32.3 - 35.7 g/dL [facility] RDW CV 17.1(H) 11.1 - 14.9 % [facility] RDW SD 44.7 35.7 - 48.1 fL [facility] NRBC abs 0.00 0.00 - 0.01 K/cumm [facility] Blood 04/28/2023 12:5 2 PM CDT 04/28/2023 1:07 PM CDT us Richmond Ho MD LAB BLOOD ORDERABLES F inal Result [facility] Department [place] [address] documented in this encounter Visit Diagnoses Diagnosis Hodgkin lymphoma, unspecified Hodgkin lymphoma type, unspecified body region (HCC) Prevention of chemotherapy-induced neutropenia Pneumonia Pneumonia, organism unspecified Double vision Diplopia Bilateral leg edema Edema Cervical spine disease Unspecified musculoskeletal disorders and symptoms referable to neck Smoking Tobacco use disorder Constipation Unspecified constipation Lumbar spine tumor Recurrent knee pain Pain in joint, lower leg Lesion of right lung Other diseases of lung, not elsewhere classified documented in this encounter Admitting Diagnoses Diagnosis Hodgkin lymphoma (HCC) documented in this encounter Administered Medications Inactive Administered Medications - up to 3 most recent administrations Medication Order MAR Action Action Date Dose Rate Site acetaminophen (TYLENOL) tablet 500 mg 500 mg, oral, Every 6 hours PRN, 1st line for pain, Starting on Wed04/28/23 at 1102, Indications: PainIndications:Pain Given 05/01/2023 6:44 AM CDT 500 mg Given 04/28/2023 12:57 PM CDT 500 mg acetaminophen (TYLENOL) tablet 500 mg 500 mg, oral, Every 6 hours PRN, fever, Starting on Wed05/04/23 at 1131, Indications: PainIndications:Pain acyclovir (ZOVIRAX) tablet 400 mg 400 mg, oral, 2 times daily, First dose on Wed05/04/23 at 1430, Indications: Prophylaxis, MedicalIndications:Prophylaxis, Medical Given 05/05/2023 8:41 AM CDT 400 mg Given 05/04/2023 8:34 PM CDT 400 mg Given 05/04/2023 3:09 PM CDT 400 mg azithromycin (ZITHROMAX) tablet 500 mg 500 mg, oral, Daily, First dose on Wed04/28/23 at 1445, For 3 doses, Indications: Pneumonia, Hospital AcquiredIndications:Pneumonia, Hospital Acquired Given 04/30/2023 8:25 AM CDT 500 mg Given 04/29/2023 10:40 AM CDT 500 mg Given 04/28/2023 2:11 PM CDT 500 mg Carrier Fluids for Secondary Infusion - 0.9% Sodium Chloride 30 mL, intravenous, As needed, For priming tubing and/or flushing, Starting on Wed04/28/23 at 1102, 0-250 ml/hr to flush line after IV infusions when no maintenance IV ordered. Infuse 30mL at the same rate as the secondary infusion. Run as primary IV, not intended for KVO. Given 04/28/2023 6:33 PM CDT 30 mL cefepime (MAXIPIME) 2,000 mg/20 mL in sterile water (premix) 2,000 mg 2,000 mg, intravenous, at 240 mL/hr, Administer over 5 Minutes, Every 8 hours scheduled, First dose on Wed04/28/23 at 1415, Indications: Pneumonia, Hospital AcquiredIndications:Pneumonia, Hospital Acquired New Bag 05/04/2023 3:17 AM CDT 2,000 mg 240 mL/hr New Bag 05/03/2023 5:16 PM CDT 2,000 mg 240 mL/hr New Bag 05/03/2023 11:12 AM CDT 2,000 mg 240 mL/hr dexAMETHasone (DECADRON) 10 mg/50 mL in sodium chloride 0.9% (premix) piggyback 10 mg 10 mg, intravenous, Administer over 20 Minutes, Once, On Tu05/04/23 at 1430, For 1 doseIndications:Hodgkin lymphoma, unspecified Hodgkin lymphoma type, unspecified body region (HCC) New Bag 05/04/2023 3:04 PM CDT 10 mg dexAMETHasone (DECADRON) 4 mg/mL injection 10 mg 10 mg, intravenous, Administer over 2 Minutes, Once, On Ana 04/29/23 at 1345, For 1 dose Given 04/29/2023 2:41 PM CDT 10 mg dexAMETHasone (DECADRON) 4 mg/mL injection 4 mg 4 mg, intravenous, Administer over 2 Minutes, Every 6 hours scheduled, First dose on Wed04/29/23 at 1800 Given 05/03/2023 11:12 AM CDT 4 mg Given 05/03/2023 6:52 AM CDT 4 mg Given 05/02/2023 11:13 PM CDT 4 mg dextrose 5% infusion 30 mL/hr, intravenous, Continuous, Starting on Wed05/04/23 at 1330, 30 mL/hr while doxil (liposomal doxorubicin) is infusing Flush line with 10 - 20 mL before and after doxil (liposomal doxorubicin) infusionIndications:Hodgkin lymphoma, unspecified Hodgkin lymphoma type, unspecified body region (HCC) Rate/Dose Verify 05/04/2023 7:59 PM CDT 30 mL/hr 30 mL/hr New Bag 05/04/2023 1:34 PM CDT 30 mL/hr 30 mL/hr DOXOrubicin liposomal (DOXIL) 30 mg in dextrose 5% 250 mL IVPB 30 mg (rounded from 29.85 mg = 15 mg/m2 ? 1.99 m2 Order-specific BSA), intravenous, Once, On Wed05/04/23 at 1615, For 1 dose, FIRST DOSE: - Infuse at 1 mg/min (no less than 60 minutes) SUBSEQUENT DOSES: - If NO previous infusion reaction administer over 60 minutes Irritant. Not to be administered as IV push. Flush line with [id number]:Hodgkin lymphoma, unspecified Hodgkin lymphoma type, unspecified body region (HCC) New Bag 05/04/2023 4:59 PM CDT 30 mg 3 00 mL/hr DULoxetine DR (CYMBALTA) extended release capsule 60 mg 60 mg, oral, Daily, First dose on Wed04/29/23 at 0900, Capsule may be opened and contents mixed with applesauce or apple juice ONLY. Do not crush, chew, cut, dissolve, open or otherwise manipulate tablet/capsule. Given 05/05/2023 8:41 AM CDT 60 mg Given 05/04/2023 8:31 AM CDT 60 mg Given 05/03/2023 8:44 AM CDT 60 mg enoxaparin (LOVENOX) syringe 40 mg 40 mg, subcutaneous, Daily (for enoxaparin), First dose on Wed04/28/23 at 2100, Indications: Deep Vein Thrombosis PreventionIndications:Deep Vein Thrombosis Prevention Given 05/04/2023 8:34 PM CDT 40 mg Left Lower Abdomen Given 05/03/2023 8:21 PM CDT 40 mg Le ft Upper Arm Given 05/02/2023 8:36 PM CDT 40 mg Ri ght Upper Arm fludeoxyglucose F-18 (FDG) injection 15 millicurie 15 millicurie, intravenous, Once in imaging, radiopharmaceutical, Starting on Wed04/29/23 at 0851, For 1 dose Given 04/29/2023 8:53 AM CDT 13.88 millicuries furosemide (LASIX) 10 mg/mL injection 20 mg 20 mg, intravenous, Once, On Wed05/03/23 at 1745, For 1 dose, For IV push: administer doses < 160 mg at a rate of 20 -40 mg/min. Doses >/= 160 mg should be administered no faster than 4 mg/min. Room temperature only Given 05/03/2023 5:15 PM CDT 20 mg gabapentin (NEURONTIN) capsule 300 mg 300 mg, oral, 3 times daily, First dose on Wed04/28/23 at 1600 Given 05/04/2023 8:32 AM CDT 300 mg Given 05/03/2023 8:21 PM CDT 300 mg Given 05/03/2023 3:46 PM CDT 300 mg gabapentin (NEURONTIN) tablet 600 mg 600 mg, oral, 3 times daily, First dose (after last modification) on Wed05/04/23 at 1600 Given 05/05/2023 8:41 AM CDT 600 mg Given 05/04/2023 8:34 PM CDT 600 mg Given 05/04/2023 3:06 PM CDT 600 mg gadoterate meglumine injection 16 mL 16 mL, intravenous, Once in imaging, contrast, Starting on Wed04/29/23 at 1727, For 1 dose Contrast Given 04/29/2023 5:28 PM CDT 16 mL gemCITabine (GEMZAR) 2,000 mg in sodium chloride 0.9% 250 mL IVPB 2,000 mg, intravenous, at 604.7 mL/hr, Administer over 30 Minutes, Once, On Wed05/04/23 at 1545, For 1 dose, [facility] P[facility]T has approved a ?? 5% dose rounding policy for chemotherapy agents to the nearest vial size. Gemcitabine has been rounded by a MTS protocol from 1990 mg (1000 mg/m2 based on ABW) to 2000 mg. Rounded dose is based off of the original dose.Indications:Hodgkin lymphoma, unspecified Hodgkin lymphoma type, unspecified body region (HCC) New Bag 05/04/2023 4:22 PM CDT 2,000 mg 676 mL/hr heparin 10 unit/mL flush 20-50 Units 20-50 Units (2-5 mL), intra-catheter, As needed, line care, with each use, Starting on Wed04/28/23 at 1616, Do not use with Groshong catheter. Do not use with peripheral IV Flush volume based on line type, size, and protocol., Indications: Maintain Patency of Indwelling Vascular CatheterIndications:Maintain Patency of Indwelling Vascular Catheter Given 05/01/2023 12:41 AM CDT 50 Units heparin 10 unit/mL flush 50 Units 50 Units (5 mL), intra-catheter, 2 times daily, First dose on Wed04/28/23 at 1700, Do not use with Groshong catheter. Do not use with peripheral IV., Indications: Maintain Patency of Indwelling Vascular CatheterIndications:Maintain Patency of Indwelling Vascular Catheter Given 05/05/2023 3:26 AM CDT 50 Units Given 05/04/2023 3:06 PM CDT 50 Units Given 05/04/2023 3:17 AM CDT 50 Units heparin 100 unit/mL injection 500 Units 500 Units (5 mL), intra-catheter, Once, On Wed05/05/23 at 1230, For 1 dose Given 05/05/2023 11:53 AM CDT 500 Units HYDROmorphone (DILAUDID) injection 0.2 mg 0.2 mg, intravenous, Administer over 2 Minutes, Every 4 hours PRN, breakthrough pain, Starting on 05/01/23 at 1821 Given 05/01/2023 7:30 PM CDT 0.2 mg HYDROmorphone (DILAUDID) injection 0.5 mg 0.5 mg, intravenous, Administer over 2 Minutes, Once as needed, other, Prior to Imaging Study, Starting on Ana 04/29/23 at 0747, For 1 dose Given 04/29/2023 8:06 AM CDT 0.5 mg HYDROmorphone (DILAUDID) injection 0.5 mg 0.5 mg, intravenous, Administer over 2 Minutes, Once as needed, other, MRI 04/29, Starting on Ana 04/29/23 at 0920, For 1 dose Given 04/29/2023 3:51 PM CDT 0.5 mg HYDROmorphone (DILAUDID) injection 1 mg 1 mg, intravenous, Administer over 2 Minutes, Every 3 hours PRN, 2nd line for pain, Starting on Wed05/04/23 at 1145 lidocaine (ASPERCREME) 4 % patch 1 patch 1 patch, transdermal, Administer over 12 Hours, Every 24 hours, First dose on Wed05/04/23 at 1100, Apply to affected area: other Medication Applied 05/05/2023 10:39 AM CDT 1 patch Back Medication Applied 05/04/2023 10:56 AM CDT 1 patch Back magnesium oxide (MAG-OX) tablet 400 mg 400 mg, oral, Every 4 hours PRN, magnesium replacement, Starting on Wed04/28/23 at 1618, For magnesium level of 1.6-1.9 mg/dL. May give magnesium sulfate 2 g IV if not tolerating oral. 1 tablet = Magnesium oxide 400 mg = 241.3 mg elemental magnesium, Indications: hypomagnesemiaIndications:hypomagnesemia Given 05/04/2023 6:39 AM CDT 400 mg magnesium sulfate 2 g/50 mL in water (premix) 2 g 2 g, intravenous, Administer over 60 Minutes, Every 4 hours PRN, magnesium replacement, Starting on Wed04/28/23 at 1618, For magnesium level of 1.6-1.9 mg/dL; may give magnesium oxide 400 mg orally instead if tolerating oral route., Indications: hypomagnesemiaIndications:hypomagnesemia magnesium sulfate 4 g/100 mL in water (premix) 4 g 4 g, intravenous, Administer over 90 Minutes, Every 4 hours PRN, magenesium replacement, Starting on Wed04/28/23 at 1618, For magnesium level of 1.2-1.5 mg/dL, Indications: hypomagnesemiaIndications:hypomagnesemia magnesium sulfate 6 g in sodium chloride 0.9% 250 mL IVPB 6 g, intravenous, at 131 mL/hr, Administer over 120 Minutes, Every 4 hours PRN, magnesium replacement, Starting on Wed04/28/23 at 1618, For magnesium level less than 1.2 mg/dL and call/notify provider., Indications: hypomagnesemiaIndications:hypomagnesemia metroNIDAZOLE (FLAGYL) tablet 500 mg 500 mg, oral, 3 times daily, First dose on Wed04/28/23 at 1600, Indications: Pneumonia, Hospital AcquiredIndications:Pneumonia, Hospital Acquired Given 05/04/2023 8:31 AM CDT 500 mg Given 05/03/2023 8:21 PM CDT 500 mg Given 05/03/2023 3:46 PM CDT 500 mg morphine ER (MS CONTIN) extended release tablet 15 mg 15 mg, oral, Once, On Wed05/04/23 at 1215, For 1 dose, Do not crush, chew, cut, dissolve, open or otherwise manipulate tablet/capsule. Given 05/04/2023 11:53 AM CDT 15 mg morphine ER (MS CONTIN) extended release tablet 30 mg 30 mg, oral, 2 times daily, First dose on Wed04/28/23 at 2100, Do not crush, chew, cut, dissolve, open or otherwise manipulate tablet/capsule. Given 05/04/2023 8:31 AM CDT 30 mg Given 05/03/2023 8:21 PM CDT 30 mg Given 05/03/2023 8:44 AM CDT 30 mg morphine ER (MS CONTIN) extended release tablet 45 mg 45 mg, oral, 2 times daily, First dose (after last modification) on Wed05/04/23 at 2100, Do not crush, chew, cut, dissolve, open or otherwise manipulate tablet/capsule. Given 05/05/2023 8:41 AM CDT 45 mg Given 05/04/2023 8:34 PM CDT 45 mg nicotine (NICODERM CQ) 14 mg patch 24 hour 1 patch 1 patch, transdermal, Administer over 24 Hours, Daily, First dose on Wed04/28/23 at 1615, Apply a new patch every 24 hours to a clean, dry, hairless site on the upper arm or hip. Rotate site. Medication Applied 05/04/2023 3:06 PM CDT 1 patch Left Shoulder Medication Applied 05/03/2023 3:47 PM CDT 1 patch Left Shoulder Medication Applied 05/02/2023 3:21 PM CDT 1 patch Left Arm ondansetron (ZOFRAN) injection 8 mg 8 mg, intravenous, Administer over 2 Minutes, Every 8 hours PRN, nausea, vomiting, if not tolerating PO, Starting on Wed04/28/23 at 1102 ondansetron (ZOFRAN) tablet 16 mg 16 mg, oral, Once, On Wed05/04/23 at 1430, For 1 doseIndications:Hodgkin lymphoma, unspecified Hodgkin lymphoma type, unspecified body region (HCC) Given 05/04/2023 3:04 PM CDT 16 mg ondansetron (ZOFRAN) tablet 8 mg 8 mg, oral, Every 8 hours PRN, nausea, vomiting, Starting on Wed04/28/23 at 1102, May administer IV if not tolerating oral. oxyCODONE (ROXICODONE) tablet 10 mg 10 mg, oral, Every 4 hours PRN, 2nd line for pain, Starting on Wed05/01/23 at 1119, Indications: PainIndications:Pain Given 05/04/2023 8:31 AM CDT 10 mg Given 05/03/2023 10:28 PM CDT 10 mg Given 05/02/2023 6:20 AM CDT 10 mg oxyCODONE (ROXICODONE) tablet 15 mg 15 mg, oral, Every 4 hours PRN, 1st line for pain, Starting on Wed05/04/23 at 1130, Indications: PainIndications:Pain oxyCODONE (ROXICODONE) tablet 5 mg 5 mg, oral, Every 4 hours PRN, 2nd line for pain, Starting on Wed04/28/23 at 1316, Indications: PainIndications:Pain Given 05/01/2023 10:56 AM CDT 5 mg Given 04/30/2023 12:14 PM CDT 5 mg Given 04/30/2023 8:26 AM CDT 5 mg pantoprazole (PROTONIX) 40 mg in sodium chloride 0.9% 10 mL IV Syringe 40 mg, intravenous, at 300 mL/hr, Administer over 2 Minutes, 2 times daily, First dose on Wed04/30/23 at 1330, For IV administration, reconstitute 40 mg vial with 10 mL sodium chloride 0.9% for injection for a final concentration of 4 mg/mL, Indications: Mucositis Prophylaxis, Stress Ulcer ProphylaxisIndications:Mucositis Prophylaxis,Stress Ulcer Prophylaxis Given 05/03/2023 8:44 AM CDT 40 m g 300 mL/hr Given 05/02/2023 8:36 PM CDT 40 mg 300 mL/hr Given 05/02/2023 9:26 AM CDT 40 mg 300 mL/hr pantoprazole DR (PROTONIX) extended release tablet 40 mg 40 mg, oral, 2 times daily, First dose on Wed05/03/23 at 1200, Do not crush, chew, cut, dissolve, open or otherwise manipulate tablet/capsule., Indications: Stress Ulcer ProphylaxisIndications:Stress Ulcer Prophylaxis Given 05/05/2023 8:41 AM CDT 40 mg Given 05/04/2023 8:34 PM CDT 40 mg Given 05/04/2023 8:31 AM CDT 40 mg pembrolizumab (KEYTRUDA) 200 mg in sodium chloride 0.9% 100 mL IVPB 200 mg, intravenous, at 216 mL/hr, Administer over 30 Minutes, Once, On Wed05/04/23 at 1500, For 1 dose, Use 0.2-5 micron filter, low-sorbing, low protein binding.Indications:Hodgkin lymphoma, unspecified Hodgkin lymphoma type, unspecified body region (HCC) New Bag 05/04/2023 3:33 PM CDT 200 mg 246 mL/hr perflutren protein-a (OPTISON) 3 mL in sodium chloride 0.9% 8 mL syringe 1-8 mL, intravenous, Once in imaging, contrast, Starting on Wed04/29/23 at 1212, For 1 dose, Intra-Procedure (CV) polyethylene glycol (MIRALAX) packet 17 g 17 g, oral, Daily, First dose (after last modification) on Wed04/28/23 at 1615, Indications: constipationIndications:constipatio n Given 05/05/2023 8:41 AM CDT 17 g Given 05/04/2023 8:31 AM CDT 17 g Given 05/03/2023 8:44 AM CDT 17 g potassium chloride ER (KLOR-CON) extended release tablet 40 mEq 40 mEq, oral, Every 2 hours PRN, potassuim replacement, Starting on Wed04/28/23 at 1618, HOLD dose and contact prescriber/provider if any of the following conditions are met: 1. Patient is undergoing any form of dialysis. 2. Serum creatinine is GREATER than 1.5 mg/dL For patients who cannot take oral, contact provider/prescriber for IV potassium. 40 mEq x 1 dose for potassium less than 2.6 mmol/L, call prescriber for additional orders; For potassium 2.6-2.9 mmol/L, give 40 mEq every 2 hours x 2 doses and obtain stat potassium level 2 hours after the 2nd dose; For potassium 3.0-3.1 mmol/L, give 40 mEq every 2 hours x 2 doses; For potassium 3.2-3.9 mmol/L, give 40 mEq x 1 dose. Tablets should not be crushed, chewed, dissolved, or otherwise manipulated. Capsules may be opened and sprinkled on a spoonful of applesauce or pudding, but the contents of the capsule should not be crushed or chewed., Indications: hypokalemiaIndications:hypokalemia Given 04/29/2023 10:40 AM CDT 40 mEq potassium, sodium phosphates (PHOS-NAK) 280-160-250 mg packet 2 packet 2 packet, oral, 3 times daily before meals, First dose on Wed05/03/23 at 0730, For 1 day, Each packet contains elemental phosphorus 250 mg (8 mmol), potassium 280 mg (7.1 mEq), and sodium 160 mg (6.9 mEq). Given 05/03/2023 5:16 PM CDT 2 packets Given 05/03/2023 11:13 AM CDT 2 packets Given 05/03/2023 8:44 AM CDT 2 packets senna-docusate (PERICOLACE) 8.6-50 mg per tablet 1 tablet 1 tablet, oral, 2 times daily, First dose on Wed04/28/23 at 2100 Given 05/05/2023 8:41 AM CDT 1 tablet Given 05/04/2023 8:34 PM CDT 1 tablet Given 05/04/2023 8:31 AM CDT 1 tablet sodium chloride 0.9% flush 10 mL 10 mL, intra-catheter, Every 12 hours scheduled, First dose on Wed04/28/23 at 1700 Given 05/05/2023 3:2 7 AM CDT 10 mL Given 05/04/2023 3:06 PM CDT 10 mL Given 05/04/2023 3:17 AM CDT 10 mL sodium chloride 0.9% flush 10-20 mL 10-20 mL, intra-catheter, As needed, line care, with each use, Starting on Wed04/28/23 at 1617, Flush volume based on line type, size, and protocol. sodium chloride 0.9% infusion 30 mL/hr, intravenous, Continuous PRN, KVO for medication administrations, Starting on Wed04/28/23 at 1616 sodium phosphate - potassium phosphate (K-PHOS NEUTRAL) tablet 500 mg 500 mg, oral, Daily PRN, phosphorus level 1.5-1.9 mg/dL, Starting on Wed04/28/23 at 1618, Contact provider for phosphorus level less than 1.5 mg/dL. Each tablet contains elemental phosphorus 250 mg (8 mmol), potassium 45 mg (1.1 mEq), and sodium 298 mg (13 mEq)., Indications: hypophosphatemiaIndications:hypophosphate anai Given 05/04/2023 6:39 AM CDT 500 mg vancomycin 1,250 mg/262.5 mL in sodium chloride 0.9% (premix) 1,250 mg 1,250 mg (rounded from 1,279.5 mg = 15 mg/kg ? 85.3 kg), intravenous, Administer over 60 Minutes, Every 12 hours, First dose (after last modification) on Wed04/28/23 at 1915, Indications: Pneumonia, Hospital AcquiredIndications:Pneumonia, Hospital Acquired New Bag 04/30/2023 6:51 AM CDT 1,250 mg New Bag 04/29/2023 7:09 PM CDT 1,250 mg New Bag 04/29/2023 10:39 AM CDT 1,250 mg vancomycin 1,250 mg/262.5 mL in sodium chloride 0.9% (premix) 1,250 mg 1,250 mg, intravenous, Administer over 60 Minutes, Every 12 hours, First dose on Wed04/30/23 at 1900, Indications: Blood Stream/Endovascular InfectionIndications:Blood Stream/Endovascular Infection New Bag 05/02/2023 7:27 AM CDT 1,250 mg New Bag 05/01/2023 6:13 PM CDT 1,250 mg New Bag 05/01/2023 6:37 AM CDT 1,250 mg vancomycin 1500 mg/515 mL in sodium chloride 0.9% (premix) 1,500 mg 1,500 mg, intravenous, Administer over 90 Minutes, Every 12 hours, First dose (after last modification) on Wed05/02/23 at 1900, Indications: Blood Stream/Endovascular InfectionIndications:Blood Stream/Endovascular Infection New Bag 05/04/2023 7:15 AM CDT 1,500 mg New Bag 05/03/2023 6:38 PM CDT 1,500 mg New Bag 05/03/2023 6:52 AM CDT 1,500 mg vinorelbine (NAVELBINE) 40 mg in sodium chloride 0.9% 50 mL IVPB 40 mg (rounded from 39.8 mg = 20 mg/m2 ? 1.99 m2 Order-specific BSA), intravenous, at 324 mL/hr, Administer over 10 Minutes, Once, On Wed05/04/23 at 1530, For 1 dose, Vesicant - For IV use only. Fatal if given intrathecallyIndications:Hodgkin lymphoma, unspecified Hodgkin lymphoma type, unspecified body region (HCC) New Bag 05/04/2023 4:05 PM CDT 40 mg 324 mL/hr documented in this encounter Active and Recently Administered Medications Times are shown in CDT. Scheduled Medication Order 05/03/2023 05/04/2023 05/05/2023 acyclovir (ZOVIRAX) tablet 400 mg 400 mg, oral, 2 times daily, First dose on Wed05/04/23 at 1430, Indications: Prophylaxis, Medical 1509 (Given - Provider: Lady Laguerre, DELMA)2034 (Given - Provider: Abigail Collins RN) 0841 (Given - Provider: Mis Dunn RN) cefepime (MAXIPIME) 2,000 mg/20 mL in sterile water (premix) 2,000 mg (CANCELED) 2,000 mg, intravenous, at 240 mL/hr, Administer over 5 Minutes, Every 8 hours scheduled, First dose on Wed04/28/23 at 1415, Indications: Pneumonia, Hospital Acquired 0207 (New Bag - Provider: Noni Sorensen RN)0214 (Stopped - Provider: Noni Sorensen RN)1112 (New Bag - Provider: Lady Laguerre RN)1117 (Stopped - Provider: Lady Laguerre, DELMA)1716 (New Bag - Provider: Lady Laguerre, DELMA)1721 (Stopped - Provider: Lady Laguerre RN) 0317 (New Bag - Provider: Abigail Collins, DELMA)0322 (Stopped - Provider: Abigail Collins RN) dexAMETHasone (DECADRON) 10 mg/50 mL in sodium chloride 0.9% (premix) piggyback 10 mg (COMPLETED) 10 mg, intravenous, Administer over 20 Minutes, Once, On Wed05/04/23 at 1430, For 1 dose 1504 (New Bag - Provider: Lady Laguerre RN)1524 (Stopped - Provider: Mis Dunn RN) dexAMETHasone (DECADRON) 4 mg/mL injection 4 mg (CANCELED) 4 mg, intravenous, Administer over 2 Minutes, Every 6 hours scheduled, First dose on Wed04/29/23 at 1800 0652 (Given - Provider: Noni Sorensen RN)1112 (Given - Provider: Lady Laguerre RN) DOXOrubicin liposomal (DOXIL) 30 mg in dextrose 5% 250 mL IVPB (COMPLETED) 30 mg (rounded from 29.85 mg = 15 mg/m2 ? 1.99 m2 Order-specific BSA), intravenous, Once, On Wed05/04/23 at 1615, For 1 dose, FIRST DOSE: - Infuse at 1 mg/min (no less than 60 minutes) SUBSEQUENT DOSES: - If NO previous infusion reaction administer over 60 minutes Irritant. Not to be administered as IV push. Flush line with D5W 1659 (New Bag - Provider: Mis Dunn RN)2034 (Stopped - Provider: Abigail Collins RN - Comment: by day shift rn) DULoxetine DR (CYMBALTA) extended release capsule 60 mg 60 mg, oral, Daily, First dose on Wed04/29/23 at 0900, Capsule may be opened and contents mixed with applesauce or apple juice ONLY. Do not crush, chew, cut, dissolve, open or otherwise manipulate tablet/capsule. 0844 (Given - Provider: Lady Laguerre RN) 0831 (Given - Provider: Lady Laguerre RN) 0841 (Given - Provider: Mis Dunn, RN) enoxaparin (LOVENOX) syringe 40 mg 40 mg, subcutaneous, Daily (for enoxaparin), First dose on Wed04/28/23 at 2100, Indications: Deep Vein Thrombosis Prevention 2020 (Given - Provider: Abigail Collins RN) 2033 (Given - Provider: Abigail Collins RN) furosemide (LASIX) 10 mg/mL injection 20 mg (COMPLETED) 20 mg, intravenous, Once, On Wed05/03/23 at 1745, For 1 dose, For IV push: administer doses < 160 mg at a rate of 20 -40 mg/min. Doses >/= 160 mg should be administered no faster than 4 mg/min. Room temperature only 1715 (Given - Provider: Lady Laguerre RN) gabapentin (NEURONTIN) capsule 300 mg (CANCELED) 300 mg, oral, 3 times daily, First dose on Wed04/28/23 at 1600 0844 (Given - Provider: Lady Laguerre RN)1546 (Given - Provider: Lady Laguerre RN)2020 (Given - Provider: Abigail Collins RN) 0832 (Given - Provider: Lady Laguerre RN) gabapentin (NEURONTIN) tablet 600 mg 600 mg, oral, 3 times daily, First dose (after last modification) on Wed05/04/23 at 1600 1506 (Given - Provider: Lady Laguerre RN)2033 (Given - Provider: Abigail Collins RN) 0841 (Given - Provider: Mis Dunn, DELMA) gemCITabine (GEMZAR) 2,000 mg in sodium chloride 0.9% 250 mL IVPB (COMPLETED) 2,000 mg, intravenous, at 604.7 mL/hr, Administer over 30 Minutes, Once, On Wed05/04/23 at 1545, For 1 dose, [facility] P[facility]T has approved a ?? 5% dose rounding policy for chemotherapy agents to the nearest vial size. Gemcitabine has been rounded by a MTS protocol from 1990 mg (1000 mg/m2 based on ABW) to 2000 mg. Rounded dose is based off of the original dose. 1622 (New Bag - Provider: Mis Dunn RN)1652 (Stopped - Provider: Mis Dunn RN) heparin 10 unit/mL flush 50 Units 50 Units (5 mL), intra-catheter, 2 times daily, First dose on Wed04/28/23 at 1700, Do not use with Groshong catheter. Do not use with peripheral IV., Indications: Maintain Patency of Indwelling Vascular Catheter 0739 (Not Given - Provider: Noni Sorensen RN - Reason: IV Infusing)1546 (Given - Provider: Lady Laguerre RN) 0317 (Given - Provider: Abigail Collins RN)1506 (Given - Provider: Lady Laguerre RN) 0326 (Given - Provider: Abigail Collins RN) heparin 100 unit/mL injection 500 Units (COMPLETED) 500 Units (5 mL), intra-catheter, Once, On Wed05/05/23 at 1230, For 1 dose 1153 (Given - Provider: Mis Dunn RN) lidocaine (ASPERCREME) 4 % patch 1 patch 1 patch, transdermal, Administer over 12 Hours, Every 24 hours, First dose on Wed05/04/23 at 1100, Apply to affected area: other 1056 (Medication Applied - Provider: Layd Laguerre RN)2305 (Medication Removed - Provider: Abigail Collins RN) 1039 (Medication Applied - Provider: Mis Dunn RN)1518 (Due: Medication Removed - Provider: Automatic Discharge Provider - Comment: Time automatically adjusted from order being discontinued) metroNIDAZOLE (FLAGYL) tablet 500 mg (CANCELED) 500 mg, oral, 3 times daily, First dose on Wed04/28/23 at 1600, Indications: Pneumonia, Hospital Acquired 0844 (Given - Provider: Lady Laguerre RN)1546 (Given - Provider: Lady Laguerre RN)2020 (Given - Provider: Abigail Collins RN) 0831 (Given - Provider: Lady Laguerre RN) morphine ER (MS CONTIN) extended release tablet 15 mg (COMPLETED) 15 mg, oral, Once, On Wed05/04/23 at 1215, For 1 dose, Do not crush, chew, cut, dissolve, open or otherwise manipulate tablet/capsule. 1153 (Given - Provider: Lady Laguerre RN) morphine ER (MS CONTIN) extended release tablet 30 mg (CANCELED) 30 mg, oral, 2 times daily, First dose on Wed04/28/23 at 2100, Do not crush, chew, cut, dissolve, open or otherwise manipulate tablet/capsule. 0844 (Given - Provider: Lady Laguerre RN)2020 (Given - Provider: Abigail Collins RN) 0831 (Given - Provider: Lady Laguerre RN) morphine ER (MS CONTIN) extended release tablet 45 mg 45 mg, oral, 2 times daily, First dose (after last modification) on Wed05/04/23 at 2100, Do not crush, chew, cut, dissolve, open or otherwise manipulate tablet/capsule. 2033 (Given - Provider: Abigail Collins RN) 0841 (Given - Provider: Mis Dunn RN) nicotine (NICODERM CQ) 14 mg patch 24 hour 1 patch 1 patch, transdermal, Administer over 24 Hours, Daily, First dose on Wed04/28/23 at 1615, Apply a new patch every 24 hours to a clean, dry, hairless site on the upper arm or hip. Rotate site. 1546 (Medication Removed - Provider: Lady Laguerre RN)1547 (Medication Applied - Provider: Lady Laguerre RN) 1504 (Medication Removed - Provider: Lady Laguerre RN)1506 (Medication Applied - Provider: Lady Laguerre RN) 1506 (Due: Medication Removed - Provider: Lady Laguerre RN) ondansetron (ZOFRAN) tablet 16 mg (COMPLETED) 16 mg, oral, Once, On Wed05/04/23 at 1430, For 1 dose 1504 (Given - Provider: Lady Laguerre RN) pantoprazole (PROTONIX) 40 mg in sodium chloride 0.9% 10 mL IV Syringe (CANCELED) 40 mg, intravenous, at 300 mL/hr, Administer over 2 Minutes, 2 times daily, First dose on Wed04/30/23 at 1330, For IV administration, reconstitute 40 mg vial with 10 mL sodium chloride 0.9% for injection for a final concentration of 4 mg/mL, Indications: Mucositis Prophylaxis, Stress Ulcer Prophylaxis 0844 (Given - Provider: Lady Laguerre, DELMA) pantoprazole DR (PROTONIX) extended release tablet 40 mg 40 mg, oral, 2 times daily, First dose on Wed05/03/23 at 1200, Do not crush, chew, cut, dissolve, open or otherwise manipulate tablet/capsule., Indications: Stress Ulcer Prophylaxis 1220 (Given - Provider: Lady Laguerre RN)2020 (Given - Provider: Abigail Collins RN) 0831 (Given - Provider: Lady Laguerre RN)2033 (Given - Provider: Abigail Collins RN) 0841 (Given - Provider: Mis Dunn RN) pembrolizumab (KEYTRUDA) 200 mg in sodium chloride 0.9% 100 mL IVPB (COMPLETED) 200 mg, intravenous, at 216 mL/hr, Administer over 30 Minutes, Once, On Wed05/04/23 at 1500, For 1 dose, Use 0.2-5 micron filter, low-sorbing, low protein binding. 1533 (New Bag - Provider: Mis Dunn RN)1603 (Stopped - Provider: Mis Dunn RN) polyethylene glycol (MIRALAX) packet 17 g 17 g, oral, Daily, First dose (after last modification) on Wed04/28/23 at 1615, Indications: constipation 0844 (Given - Provider: Lady Laguerre RN) 0831 (Given - Provider: Lady Laguerre RN) 0841 (Given - Provider: Mis Dunn RN) potassium, sodium phosphates (PHOS-NAK) 280-160-250 mg packet 2 packet (COMPLETED) 2 packet, oral, 3 times daily before meals, First dose on Wed05/03/23 at 0730, For 1 day, Each packet contains elemental phosphorus 250 mg (8 mmol), potassium 280 mg (7.1 mEq), and sodium 160 mg (6.9 mEq). 0844 (Given - Provider: Lady Laguerre RN)1113 (Given - Provider: Lady Laguerre RN)1716 (Given - Provider: Lady Laguerre RN) senna-docusate (PERICOLACE) 8.6-50 mg per tablet 1 tablet 1 tablet, oral, 2 times daily, First dose on Wed04/28/23 at 2100 0844 (Given - Provider: Lady Laguerre RN)2020 (Given - Provider: Abigail Collins RN) 0831 (Given - Provider: Lady Laguerre RN)203 (Given - Provider: Abigail Collins RN) 0841 (Given - Provider: Mis Dunn RN) sodium chloride 0.9% flush 10 mL 10 mL, intra-catheter, Every 12 hours scheduled, First dose on Wed04/28/23 at 1700 0739 (Not Given - Provider: Noni Sorensen RN - Reason: IV Infusing)1716 (Given - Provider: Lady Laguerre RN) 0317 (Given - Provider: Abigail Collins RN)1506 (Given - Provider: Lady Laguerre RN) 0327 (Given - Provider: Abigail Collins RN) vancomycin 1500 mg/515 mL in sodium chloride 0.9% (premix) 1,500 mg (CANCELED) 1,500 mg, intravenous, Administer over 90 Minutes, Every 12 hours, First dose (after last modification) on Wed05/02/23 at 1900, Indications: Blood Stream/Endovascular Infection 0652 (New Bag - Provider: Noni Sorensen RN)0935 (Stopped - Provider: Lady Laguerre RN)1838 (New Bag - Provider: Lady Laguerre RN)2023 (Stopped - Provider: Abigail Collins, DELMA) 0715 (New Bag - Provider: Lady Laguerre RN)0915 (Stopped - Provider: Lady Laguerre RN) vinorelbine (NAVELBINE) 40 mg in sodium chloride 0.9% 50 mL IVPB (COMPLETED) 40 mg (rounded from 39.8 mg = 20 mg/m2 ? 1.99 m2 Order-specific BSA), intravenous, at 324 mL/hr, Administer over 10 Minutes, Once, On Wed05/04/23 at 1530, For 1 dose, Vesicant - For IV use only. Fatal if given intrathecally 1605 (New Bag - Provider: Mis Dunn RN)1615 (Stopped - Provider: Mis Dunn RN) Continuous Medication Order 05/03/2023 05/04/2023 05/05/2023 dextrose 5% infusion (CANCELED) 30 mL/hr, intravenous, Continuous, Starting on Wed05/04/23 at 1330, 30 mL/hr while doxil (liposomal doxorubicin) is infusing Flush line with 10 - 20 mL before and after doxil (liposomal doxorubicin) infusion 1334 (New Bag - Provider: Lady Laguerre RN)1959 (Rate/Dose Verify - Provider: Abigail Collins, DELMA)2305 (Stopped - Provider: Abigail Collins, DELMA) PRN Medication Order 05/03/2023 05/04/2023 05/05/2023 acetaminophen (TYLENOL) tablet 500 mg 500 mg, oral, Every 6 hours PRN, fever, Starting on Wed05/04/23 at 1131, Indications: Pain albuterol 2.5 mg/0.5 mL nebulizer solution 2.5 mg 2.5 mg, nebulization, Once as needed, wheezing, shortness of breath, Starting on Wed05/04/23 at 1256, For 24 hours albuterol HFA (PROVENTIL HFA,VENTOLIN HFA,PROAIR HFA) 90 mcg/actuation inhaler 2 puff 2 puff, inhalation, Once as needed, wheezing, shortness of breath, if Nebulizer not available, Starting on Wed05/04/23 at 1256, For 24 hours Carrier Fluids for Secondary Infusion - 0.9% Sodium Chloride 30 mL, intravenous, As needed, For priming tubing and/or flushing, Starting on Wed04/28/23 at 1102, 0-250 ml/hr to flush line after IV infusions when no maintenance IV ordered. Infuse 30mL at the same rate as the secondary infusion. Run as primary IV, not intended for KVO. diphenhydrAMINE (BENADRYL) 50 mg/mL injection 25 mg 25 mg, intravenous, Administer over 2 Minutes, Every 15 min PRN, Mild Hypersensitivity reaction. May repeat x1 if symptoms not relieved in 15 minutes. No more than 2 doses., Starting on Wed05/04/23 at 1256, For 24 hours diphenhydrAMINE (BENADRYL) 50 mg/mL injection 50 mg 50 mg, intravenous, Administer over 2 Minutes, Once as needed, Severe / Moderate Hypersensitivity reaction, Starting on Wed05/04/23 at 1256, For 24 hours EPINEPHrine 0.3 mg/0.3 mL syringe 0.3 mg 0.3 mg, intramuscular, Every 15 min PRN, if SBP LESS than 90 and GREATER than 20 mmHg drop from baseline SBP or airway obstruction symptoms present. May repeat x1 after 15 minutes for no more than 2 doses., Starting on Wed05/04/23 at 1256, For 24 hours famotidine (PEPCID) injection 20 mg 20 mg, intravenous, Administer over 2 Minutes, Every 15 min PRN, Severe / Moderate Hypersensitivity Reaction. May repeat x1 if symptoms not relieved in 15 minutes. No more than 2 doses., Starting on Wed05/04/23 at 1256, For 24 hours, IV Push over at least 2 minutes heparin 10 unit/mL flush 20-50 Units 20-50 Units (2-5 mL), intra-catheter, As needed, line care, with each use, Starting on Wed04/28/23 at 1616, Do not use with Groshong catheter. Do not use with peripheral IV Flush volume based on line type, size, and protocol., Indications: Maintain Patency of Indwelling Vascular Catheter hydrocortisone (Solu-CORTEF) preservative free injection 100 mg 100 mg, intravenous, Once as needed, Severe / Moderate Hypersensitivity Reaction, Starting on Wed05/04/23 at 1256, For 24 hours, For adults rapid IV push administer over 30 seconds HYDROmorphone (DILAUDID) injection 1 mg 1 mg, intravenous, Administer over 2 Minutes, Every 3 hours PRN, 2nd line for pain, Starting on Wed05/04/23 at 1145 magnesium oxide (MAG-OX) tablet 400 mg 400 mg, oral, Every 4 hours PRN, magnesium replacement, Starting on Wed04/28/23 at 1618, For magnesium level of 1.6-1.9 mg/dL. May give magnesium sulfate 2 g IV if not tolerating oral. 1 tablet = Magnesium oxide 400 mg = 241.3 mg elemental magnesium, Indications: hypomagnesemia 0639 (Given - Provider: Abigail Collins RN) magnesium sulfate 2 g/50 mL in water (premix) 2 g 2 g, intravenous, Administer over 60 Minutes, Every 4 hours PRN, magnesium replacement, Starting on Wed04/28/23 at 1618, For magnesium level of 1.6-1.9 mg/dL; may give magnesium oxide 400 mg orally instead if tolerating oral route., Indications: hypomagnesemia magnesium sulfate 4 g/100 mL in water (premix) 4 g 4 g, intravenous, Administer over 90 Minutes, Every 4 hours PRN, magenesium replacement, Starting on Wed04/28/23 at 1618, For magnesium level of 1.2-1.5 mg/dL, Indications: hypomagnesemia magnesium sulfate 6 g in sodium chloride 0.9% 250 mL IVPB 6 g, intravenous, at 131 mL/hr, Administer over 120 Minutes, Every 4 hours PRN, magnesium replacement, Starting on Wed04/28/23 at 1618, For magnesium level less than 1.2 mg/dL and call/notify provider., Indications: hypomagnesemia meperidine (DEMEROL) preservative free injection 25 mg 25 mg, intravenous, Administer over 5 Minutes, Every 15 min PRN, Rigors, may repeat x1 after 15 minutes if serum creatinine is LESS than 1.5 mg/dL, do not give more than 2 doses in a 24 hour period; discontinue 24 hours after completion of chemo- / biotherapy if inpatient, Starting on Wed05/04/23 at 1256, For 24 hours, Indications: Shivering ondansetron (ZOFRAN) injection 8 mg(Linked Group 1) 8 mg, intravenous, Administer over 2 Minutes, Every 8 hours PRN, nausea, vomiting, if not tolerating PO, Starting on Wed04/28/23 at 1102 ondansetron (ZOFRAN) tablet 8 mg(Linked Group 1) 8 mg, oral, Every 8 hours PRN, nausea, vomiting, Starting on Wed04/28/23 at 1102, May administer IV if not tolerating oral. oxyCODONE (ROXICODONE) tablet 10 mg (CANCELED) 10 mg, oral, Every 4 hours PRN, 2nd line for pain, Starting on 05/01/23 at 1119, Indications: Pain 2228 (Given - Provider: Abigail Collins RN) 0831 (Given - Provider: Lady Laguerre RN) oxyCODONE (ROXICODONE) tablet 15 mg 15 mg, oral, Every 4 hours PRN, 1st line for pain, Starting on 05/04/23 at 1130, Indications: Pain perflutren protein-a (OPTISON) 3 mL in sodium chloride 0.9% 8 mL syringe 1-8 mL, intravenous, Once in imaging, contrast, Starting on Ana 04/29/23 at 1212, For 1 dose, Intra-Procedure (CV) potassium chloride ER (KLOR-CON) extended release tablet 40 mEq 40 mEq, oral, Every 2 hours PRN, potassuim replacement, Starting on 04/28/23 at 1618, HOLD dose and contact prescriber/provider if any of the following conditions are met: 1. Patient is undergoing any form of dialysis. 2. Serum creatinine is GREATER than 1.5 mg/dL For patients who cannot take oral, contact provider/prescriber for IV potassium. 40 mEq x 1 dose for potassium less than 2.6 mmol/L, call prescriber for additional orders; For potassium 2.6-2.9 mmol/L, give 40 mEq every 2 hours x 2 doses and obtain stat potassium level 2 hours after the 2nd dose; For potassium 3.0-3.1 mmol/L, give 40 mEq every 2 hours x 2 doses; For potassium 3.2-3.9 mmol/L, give 40 mEq x 1 dose. Tablets should not be crushed, chewed, dissolved, or otherwise manipulated. Capsules may be opened and sprinkled on a spoonful of applesauce or pudding, but the contents of the capsule should not be crushed or chewed., Indications: hypokalemia sodium chloride 0.9% bolus 500 mL 500 mL, intravenous, Once as needed, if SBP LESS than 90 and GREATER than 20 mmHg drop from baseline SBP, or pulse greater than 120 bpm, Starting on Wed05/04/23 at 1256, For 24 hours sodium chloride 0.9% flush 10-20 mL 10-20 mL, intra-catheter, As needed, line care, with each use, Starting on Wed04/28/23 at 1617, Flush volume based on line type, size, and protocol. sodium chloride 0.9% infusion 30 mL/hr, intravenous, Continuous PRN, KVO for medication administrations, Starting on Wed04/28/23 at 1616 sodium chloride 0.9% infusion 30 mL/hr, intravenous, Once as needed, if no maintenance fluids are infusing, Starting on Wed05/04/23 at 1256, For 24 hours sodium phosphate - potassium phosphate (K-PHOS NEUTRAL) tablet 500 mg 500 mg, oral, Daily PRN, phosphorus level 1.5-1.9 mg/dL, Starting on Wed04/28/23 at 1618, Contact provider for phosphorus level less than 1.5 mg/dL. Each tablet contains elemental phosphorus 250 mg (8 mmol), potassium 45 mg (1.1 mEq), and sodium 298 mg (13 mEq)., Indications: hypophosphatemia 0639 (Given - Provider: Abigail Collins RN) Linked Groups Order Group 1: ondansetron (ZOFRAN) tablet 8 mgJump to med 8 mg, oral, Every 8 hours PRN, nausea, vomiting, Starting on Wed04/28/23 at 1102, May administer IV if not tolerating oral. Or ondansetron (ZOFRAN) injection 8 mgJump to med 8 mg, intravenous, Administer over 2 Minutes, Every 8 hours PRN, nausea, vomiting, if not tolerating PO, Starting on Wed04/28/23 at 1102 documented in this encounter Orders Medications Ordered That Kendell ht Not Have Been Administered Count Last Ordered Date First Ordered Date acetaminophen (TYLENOL) tablet 500 mg 1 albuterol 2.5 mg/0.5 mL nebu lizer solution 2.5 mg 1 05/04/2023 albuterol HFA (PROVENTIL HFA ,VENTOLIN HFA,PROAIR HFA) 90 mcg/actuation inhaler 2 puff 1 05/04/2023 diphenhydrAMINE (BENADRYL) 5 0 mg/mL injection 25 mg 1 05/04/2023 diphenhydrAMINE (BENADRYL) 5 0 mg/mL injection 50 mg 1 05/04/2023 EPINEPHrine 0.3 mg/0.3 mL syringe 0.3 mg 1 05/04/2023 famotidine (PEPCID) injection 20 mg 1 05/04 hydrocortisone (Solu-CORTEF) preservative free injection 100 mg 1 05/04/2023 HYDROmorphone (DILAUDID) injection 1 mg 1 1 meperidine (DEMEROL) preserv ative free injection 25 mg 1 05/04/2023 oxyCODONE (ROXICODONE) tablet 15 mg 1 05/04 sodium chloride 0.9% bolus 500 mL 1 023 sodium chloride 0.9% infusion 3 05/04/2023 04/28/2023 vancomycin 1500 mg/515 mL in sodium chloride 0.9% (premix) 1,500 mg 1 04/30/2023 HYDROmorphone (DILAUDID) injection 0.5 mg 1 04/29/2023 perflutren protein-a (OPTISO N) 3 mL in sodium chloride 0.9% 8 mL syringe 1 04/29/2023 heparin 100 unit/mL injection 500 Units 1 1 magnesium sulfate 2 g/50 mL in water (premix) 2 g 1 04/28/2023 magnesium sulfate 4 g/100 mL in water (premix) 4 g 2 04/28/2023 magnesium sulfate 6 g in sod ium chloride 0.9% 250 mL IVPB 2 04/28/2023 ondansetron (ZOFRAN) injection 8 mg 1 04/28 ondansetron (ZOFRAN) tablet 8 mg 1 04/28/20 polyethylene glycol (MIRALAX) packet 17 g 1 04/28/2023 potassium chloride ER (KLOR- CON) extended release tablet 40 mEq 1 04/28/2023 sodium chloride 0.9% flush 0.5-20 mL 2 04/05 sodium chloride 0.9% flush 10 mL 1 04/28/20 sodium chloride 0.9% flush 10-20 mL 1 04/28 sodium phosphate - potassium phosphate (K-PHOS NEUTRAL) tablet 500 mg 1 04/28/2023 vancomycin 1,250 mg/262.5 mL in sodium chloride 0.9% (premix) 1,250 mg 1 04/28/2023 Lab Orders Without Results Count Last Ordered D ate First Ordered Date LACTATE DEHYDROGENASE 1 04/29/2023 VANCOMYCIN LEVEL RANDOM 1 04/28/2023 Nursing Count Last Ordered Date First Orde red Date ON[facility]N CLINICAL PHARMACIST REVIEW 1 023 ON[facility] HYPERSENSITIVITY MILD 1 05/04/2023 ON[facility] HYPERSENSITIVITY SEVERE/ANAPHYLAXIS 1 05/04/2023 ON[facility] TITRATION INSTRUCTIONS 1 1 ON[facility] TREATMENT PARAMETERS 2 1 05/04/2023 MEASURE HEIGHT AND LENGTH 1 04/28/2023 ORTHOSTATIC BLOOD PRESSURE 1 04/28/2023 WEIGH PATIENT 1 04/28/2023 Consult Count Last Ordered Date First Orde red Date IP CONSULT TO SOCIAL WORK 1 05/03/2023 CONSULT TO PULMONARY - INTERVENTIONAL 1 CONSULT TO TRANSPLANT INFECTIOUS DISEASE 1 04/28/2023 IP CONSULT [facility] 1 023 IP CONSULT TO NEUROLOGY 1 04/28/2023 IP CONSULT TO OPHTHALMOLOGY 1 04/28/2023 Isolation Count Last Ordered Date First Orde red Date INITIATE CONTACT ISOLATION 1 04/28/2023 Admission Count Last Ordered Date First Orde red Date ADMIT TO INPATIENT 1 04/28/2023 Discharge Count Last Ordered Date First Orde red Date DISCHARGE PATIENT 1 05/05/2023 Appointment Requests Count Last Ordered Date Fi rst Ordered Date ONCBCN CLINIC APPOINTMENT REQUEST 1 023 ON[facility] LAB APPOINTMENT 1 05/13/2023 ON[facility] RETURN CHEMO 2.5HRS 1 05/13/2023 ADT Patient Update Count Last Ordered Date Firs t Ordered Date PROVIDER TREATMENT TEAM 1 04/28/2023 documented in this encounter Care Teams Police Officer Crime Prevention Relationship Specialty Start Date End Date Shasta Sena MD [id number] [facility] [address] [place] [address] Medical Oncologist/Loan Interviewer Mortgage Medical Oncology 05/05/23 documented as of this encounter
--- OUTSIDE RECORDS SUMMARY | 2024-06-25 06:55 | XMS_ITS | Encounter Summary ---
Author Organization [facility] Healthcare Address [address] [place] [address] Care Team Providers Care Professor Of Counseling Name Role Phone Unavailable Primary Care Provider Unavailabl e Encounter Details Date Type Department Care Team (Latest Contact Info) Description 04/27/2023 4:16 PM CDT - 04/27/2023 11:59 PM CDT Hospital Encounter [facility] [address] [place] [id number] Discharge Disposition: Discharge to home or self [...] on file Legal Sex Male 10:05 AM [employer] Gender Identity Male 05/30/2023 9:41 PM [employer] Sexual Orientation Straight 05/30/2023 9: 41 PM [employer] documented as of this encounter Medications at [...] Date/Time Associated Diagnosis Comments CT BODY OUTSIDE REFERENCE Routine 04/27/2023 4:16 PM CDT documented in this encounter Results * CT Body Outside Reference (04/27/2023 4:16 PM CDT) Impressions [facility] - 04/27/2023 4:16 PM CDT These images are for Reference purposes only and have not been reviewed by [facility] Radiology. ??There will be no report generated by a [facility] Radiologist. Narrative [facility] - 04/27/2023 4:16 PM CDT EXAMINATION: ??Images For Reference Purposes Only us Shasta Sena MD IMG CT PROCEDURES Final Re sult [facility] documented in this encounter Visit Diagnoses Not on filedocumented in this encounter
--- OUTSIDE RECORDS SUMMARY | 2024-06-25 06:55 | XMS_ITS | Encounter Summary ---
Author Organization [facility] Healthcare Address [address] [place] [address] Care Team Providers Care In Store Marketing Associate Name Role Phone Unavailable Primary Care Provider Unavailabl e Reason for Visit * Reason Comments Bronchoscopy * Auth/Cert (Routine) Specialty Diagnoses / Procedures Referred By Contac t Referred To Contact Diagnoses Hodgkin lymphoma (HCC) HODGKINS LYMPHOMA Procedures n/a Referral ID Status Reason Start Date Expiration Date Visits Re quested Visits Authorized [id number] 1 1 Encounter Details Date Type Department Care Team (Latest Contact Info) Description 04/30/2023 12:39 PM CDT - 04/30/2023 11:59 PM CDT Hospital Encounter [facility] Interventional Pulmonology [address] [place] [address] Discharge Disposition: Discharge to home or self [...] on file Legal Sex Male 10:05 AM [employer] HER[employer] Gender Identity Male 05/30/2023 9:41 PM [employer]IST Sexual Orientation Straight 05/30/2023 9: 41 PM [employer] HER[employer]IST documented as of this encounter Last Filed Vital Signs Vital Sign Reading Time Taken Comments Blood Pressure 126/69 04/30/2023 4:30 PM CDT Pulse 79 04/30/2023 4:30 PM CDT Temperature 36.6 ??C (97.9 ??F) 04/30/2023 3:21 PM CD T Respiratory Rate 19 04/30/2023 4:30 PM CDT Oxygen Saturation 95% 04/30/2023 4:30 PM CDT Inhaled Oxygen Concentration - - Weight - - Height - - Body Mass Index - - documented in this encounter Medications at Time [...] or self care documented in this encounter Nursing Notes * Abigail Lo RN - 04/30/2023 3:33 PM CDT Report called to Silvia, floor nurse. Discussed procedure, vitals, meds given, bx done, how tolerated, and post procedure xray results. Awaiting pt to wake up more and transport for transfer back to room * Abigail Lo RN - 04/30/2023 3:27 PM CDT Portable Chest X-Ray performed. PCXR read by Dr. Selvin Steward, No pneumothorax noted. Awaiting Transport. * Abigail Lo RN - 04/30/2023 3:20 PM CDT Report received from Shannon Lincoln RN s/p Bronchoscopy. See flowsheet for VS. Awaiting PCXR. * Tata Lincoln RN - 04/30/2023 3:13 PM CDT Bronchoscopy with biopsy to RUL nodule, 11R, and tbbx to RUL nodule performed by Dr. Freddy Parham. Pt tolerated procedure well. Pt able to open eyes and follow commands prior to LMA removal. VS, Glen, ECG as noted. See provider notes and flowsheets for procedure details. Report to Dina Jose RN and Abigail Lo RN in pre/post procedure area. Awaiting PCXR. LMA in: 1427, LMA out: 1512 Sedation given: IV Versed 18mg, IV Fentanyl 350mcg Fluids given: 250ml 0.9NS BAL fluid: In 100ml / Out 30ml Fluoroscopy time: 9.8 minutes Drug Waste 1mg Versed and 50mcg Fentanyl wasted in pyxis with Martha Holloway [employer] [facility] Interventional Pulmonology Post Procedure Safety Debrief: [x]Post procedure nursing note to be completed by the assigned procedure registered nurse. [x]Procedure note to be completed by provider(s). [x]Post procedure orders complete in epic [x]Specimens, if applicable, processed accordingly by assigned respiratory therapist(s) if patient had a bronchoscopy. Processed accordingly by assigned registered nurse if the patient had a pleural procedure. [x]Specimens, if applicable, labeled correctly accordingly by assigned respiratory therapist(s) if patient had a bronchoscopy. Labeled accordingly by assigned registered nurse if the patient had a pleural procedure. [x]All relevant patient disposition requirements complete [x]All sharps protocols followed. If patient had bronchoscopy, sharps disposed of by assigned respiratory therapist(s). If patient had a pleural procedure, sharps disposed of by assigned registered nurse. [x]Post recovery location clearly defined: Interventional Pulmonology Pre/Post [place] 3 * Tata Lincoln RN - 04/30/2023 2:13 PM CDT [facility] Interventional Pulmonology Safe to Proceed Checklist 04/30/2023 [x]Patient ID confirmed [x]Patient is having a bronchoscopy [x]Allergies and medication review complete [x]Consent obtained. If patient is receiving a pleural procedure, consent is obtained after site ultrasound has been completed. []Intended site marked if applicable [x] NA [x]Updated pre procedure and ASA note complete [x]30-day history and physical completed [] NA [x]Nursing pre-procedure documentation complete [x]Patient takes anticoagulation Lovenox Last dose 04/29 [] NA [x]Confirmed with patient, MAR, and procedural provider that all anticoagulation protocols have been followed. [] NA [x]Special equipment is present c-arm [] NA []Blood products available [x] NA [x]Appropriate SBAR handoff communication to procedure team has been completed [x]All relevant labs & diagnostic imaging has been reviewed and confirmed. [x]Confirmation from all involved intraprocedural caregivers that it is safe to proceed. Any special considerations/additional specific information? No (List below if applicable) documented in this encounter Miscellaneous Notes * Pre-Procedure Note - Selvin Steward MD - 04/30/2023 2:00 PM CDT Pre-Procedure/Pre-Sedation Assessment HPI Mr. Capone is a 33 y.o. male who is referred for evaluation of Lung mass. I have reviewed: allergies, current medications, past family history, past medical history, past social history, past surgical history, and problem list Physical Exam: Vitals: 04/30/23 1240 BP: 131/75 Pulse: 77 Temp: 36.2 ??C (97.1 ??F) SpO2: 98% General: No acute distress Airway Mallampati Score: 2 HEENT: NC/AT, MMM, conjunctiva pink, sclera clear CV: RRR, normal S1 and S2, no M/R/G; JVD flat LUNGS: LCTAB, normal work of breathing GI: soft, NT/ND, BS+ EXT: warm; no clubbing, cyanosis, or edema SKIN: no rashes NEURO: AOx4 Labs (if pertinent). Lab Results Component Value Date WBC 12.6 (H) 04/30/2023 HGB 7.1 (L) 04/30/2023 HCT 23.5 (L) 04/30/2023 MCV 74.8 (L) 04/30/2023 LABPLAT 436 (H) 04/30/2023 Lab Results Component Value Date CREATININE 0.72 (L) 04/30/2023 Lab Results Component Value Date INR 1.35 (H) 04/29/2023 No results found for: PTT IMPRESSION and PLAN: Planned procedure: Bronchoscopy Reason for Procedure: Lung mass Pre-procedure Screen reviewed The patient has been NPO for the appropriate amount of time. Prescribed use of blood thinner: No Prescribed use of antiplatelet agent: No History of thrombocytopenia or bleeding disorder: No ASA SCORE: ASA 4 - Patient with severe systemic disease that is a constant threat to life SEDATION/ANESTHESIA PLAN: MODERATE sedation Informed Consent: Benefits, risks, alternatives discussed; patient/territory representative accepts/agrees tosedation/anesthesia plan and to the procedure. Patient has tolerated sedation in the past without complication. Post Procedure Monitoring Plan: Recovery documented in this encounter Plan of Treatment Not on file documented as of this encounter Procedures Procedure Name Priority Date/Time Associated Diagnosis Comments XR CHEST 1 VIEW IP Routine 04/30/2023 3:48 PM CDT CELL DIFFERENTIAL, BODY FLUID Routine 04/30/2023 3:24 PM CDT CELL COUNT W/REFLEX DIFFERENTIAL, BODY FLUID Routine 04/30/2023 3:24 PM CDT AEROBIC CULTURE AND GRAM STAIN Routine 04/30/2023 3:24 PM CDT MYCOLOGY (FUNGAL) CULTURE Routine 04/30/2023 3:24 PM CDT MYCOLOGY (FUNGAL) CULTURE Routine 04/30/2023 3:24 PM CDT MYCOBACTERIOLOGY AFB CULTURE AND ACID-FAST STAIN Routine 04/30/2023 3:24 PM CDT MYCOBACTERIOLOGY AFB CULTURE AND ACID-FAST STAIN Routine 04/30/2023 3:24 PM CDT AEROBIC AND ANAEROBIC CULTURE AND GRAM STAIN Routine 04/30/2023 3:24 PM CDT SURGICAL PATHOLOGY Routine 04/30/2023 3: 16 PM CDT CYTOLOGY Routine 04/30/2023 2:21 PM CDT BRONCHOSCOPY Routine 04/30/2023 2:08 PM CDT documented in this encounter Results * XR Chest 1 View (04/30/2023 3:48 PM CDT) Anatomical Region Laterality Modality Body, Chest N/A Computed Radiogr aphy 04/30/2023 4:13 PM CDT Impressions 04/30/2023 4:14 PM CDT Comparison 04/28/2023. ??There is a right chest port catheter which terminates in the right atrium. ??Stable cardiomediastinal silhouette. ??There is right mid upper lung opacities correlating with the foci of consolidation seen on PET/CT 04/29/2023; there is increased in this opacity likely correlating with post bronchoscopic change. ??There is also a small left pleural effusion, similar to prior study. ??No right pleural effusion. ??No pneumothorax. Dictated by: Darci Bhardwaj MD The radiology attending physician has personally reviewed this study, and had reviewed and/or edited this written report and agrees with it. Electronically signed by: Keron Molina M.D. Narrative 04/30/2023 4:14 PM CDT EXAMINATION: 1 view chest radiograph Procedure Note Keron Molina MD - 04/30/2023 EXAMINATION: 1 view chest radiograph IMPRESSION: Comparison 04/28/2023. There is a right chest port catheter which terminates in the right atrium. Stable cardiomediastinal silhouette. There is right mid upper lung opacities correlating with the foci of consolidation seen on PET/CT 04/29/2023; there is increased in this opacity likely correlating with post bronchoscopic change. There is also a small left pleural effusion, similar to prior study. No right pleural effusion. No pneumothorax. Dictated by: Darci Bhardwaj MD The radiology attending physician has personally reviewed this study, and had reviewed and/or edited this written report and agrees with it. Electronically signed by: Keron Molina M.D. Selvin Steward MD IMG XR PROCEDURES Final R esult * Cell Differential, Body Fluid (04/30/2023 3:24 PM CDT) Pathologist [facility] Total cells diffed 100 cells [facility] Comment: Interpretive Data Unless otherwise specified, the reference range and other method performance specifications have not been established for CSF/Body Fluid tests. ??The test results should be integrated into the clinical context for interpretation. Current interpretive data was last revised on 2019. Neutrophils, fld 9 % [facility] Lymphs, fld 9 % [facility] Eosinophils, fld 3 % [facility] Macrophages, fld 79 % [facility] Comment:Intracellular inclus ions present. Fluid 04/30/2023 3:24 PM CDT 04/30/2023 5:53 PM CDT Selvin Steward MD LAB BODY FLUIDS AND STOOL S ORDERABLES Final Result [facility] Department [place] [address] * (ABNORMAL) Cell count with reflex to differential, body fluid (04/30/2023 3:24 PM CDT) Pathologist [facility] Specimen type, fld Bronchial [facility] Body site, fld Bronch Lavage [facility] Color, fld [place] [facility] Clarity, fld Cloudy(A) Clear [facility] Nucleated cells, fld 33 /cumm [facility] Comment: Interpretive Data Unless otherwise specified, the reference range and other method performance specifications have not been established for CSF/Body Fluid tests. ??The test results should be integrated into the clinical context for interpretation. Current interpretive data was last revised on 2019. RBC, fld 5,873 /cumm [facility] Fluid 04/30/2023 3:24 PM CDT 04/30/2023 5:53 PM CDT Selvin Steward MD LAB BODY FLUIDS AND STOOL S ORDERABLES Final Result Performing Organization Address [facility] Co de Phone Number [facility] Department [place] [address] * Mycobacteriology (AFB) culture and acid-fast stain Aspirate Lymph node (04/30/2023 3:24 PM CDT) Direct Specimen Exam Stain: No Acid-fast bacilli seen [facility] Report Final Report: No growth of acid-fast bacilli [facility] Aspirate (Lymph node) 04/30/2023 3:24 PM CDT 04/30/2023 6:39 PM CDT Narrative [facility] - 06/28/2023 8:13 AM [employer] HER[employer]IST Fluid specimen received. Testing performed by [facility] Microbiology Laboratory ([phone]). Selvin Steward MD LAB MICROBIOLOGY - GENERA L ORDERABLES Final Result Performing Organization Address City/[facility] Co de Phone Number [facility] Department [place] [address] * Mycology (fungal) culture Aspirate Lymph node (04/30/2023 3:24 PM CDT) Report Final Report: No growth of fungus [facility] Aspirate (Lymph node) 04/30/2023 3:24 PM CDT 04/30/2023 6:38 PM CDT Narrative [facility] - 05/28/2023 10:04 AM [employer] HERBALIST Fluid specimen received. Testing performed by [facility] Microbiology Laboratory ([phone]). Selvin Steward MD LAB MICROBIOLOGY - GENERA L ORDERABLES Final Result Performing Organization Address [facility] Co de Phone Number [facility] Department [place] [address] * Aerobic and anaerobic culture and gram stain Aspirate Lymph node (04/30/2023 3:24 PM CDT) Direct Specimen Exam Stain: No polymorphonuclear leukocytes seen. No organisms seen. [facility] Report Final Report: No growth [facility] Aspirate (Lymph node) 04/30/2023 3:24 PM CDT 04/30/2023 6:38 PM CDT Narrative [facility] - 05/04/2023 11:58 AM CDT Fluid specimen received. Testing performed by [facility] Microbiology Laboratory ([phone]) Specimens submitted from normally sterile body sites will have all bacterial morphotypes identified. Specimens that contain grossly mixed faustino and/or are from body sites that are not normally sterile will be examined for Staphylococcus aureus, Pseudomonas aeruginosa, beta-hemolytic strep, vancomycin-resistant Enterococcus, Bacteroides, Parabacteroides, Clostridium perfringens and fungus. If any of these are isolated, the organism will be reported. Current interpretive data was last revised on 2019. Selvin Steward MD LAB MICROBIOLOGY - GENERA L ORDERABLES Final Result Performing Organization Address [facility] Co de Phone Number [facility] Department [place] [address] * Mycobacteriology (AFB) culture and acid-fast stain Bronchoalveolar lavage Lobe, right upper (04/30/2023 3:24 PM CDT) Direct Specimen Exam Stain: No Acid-fast bacilli seen [facility] Report Final Report: No growth of acid-fast bacilli [facility] Bronchoalveolar lavage (Lobe, right upper) 04/30/2023 3:24 PM CDT 04/30/2023 6:35 PM CDT Narrative [facility] - 06/28/2023 8:13 AM [employer]ESE HER[employer]IST Testing performed by [facility]biology Laboratory ([phone]). Result [facility] Selvin Steward MD LAB MICROBIOLOGY - GENERA L ORDERABLES Final Result Performing Organization Address [facility] Co de Phone Number [facility] Department [place] [address] * (ABNORMAL) Mycology (fungal) culture Bronchoalveolar lavage Lobe, right upper (04/30/2023 3:24 PM CDT) Report Final Report: Rare Yeast Pilar pneumonia is very rare and requires a histopathological diagnosis. ??The recovery of these organisms in routine culture, in most cases, only represents overgrowth of the organism secondary to antimicrobial therapy. Please contact the microbiology laboratory at [phone] if identification or susceptibility testing is clinically indicated. (.) [facility] Organism YEAST [facility] Bronchoalveolar lavage (Lobe, right upper) 04/30/2023 3:24 PM CDT 04/30/2023 6:34 PM CDT Narrative [facility] - 05/28/2023 3:23 PM [employer]INESE HERBALIST Testing performed by [facility]biology Laboratory ([phone]). Selvin Steward MD LAB MICROBIOLOGY - GENERA L ORDERABLES Final Result Performing Organization Address City/[facility] Co de Phone Number [facility] Department [place] [address] * Aerobic culture and gram stain Bronchoalveolar lavage Lobe, right upper (04/30/2023 3:24 PM CDT) Direct Specimen Exam Stain: No polymorphonuclear leukocytes seen. Few squamous epithelial cells seen. Other cellular material present. No organisms seen. [facility] Report Final Report: No growth [facility] Bronchoalveolar lavage (Lobe, right upper) 04/30/2023 3:24 PM CDT 04/30/2023 6:34 PM CDT Narrative [facility] - 05/03/2023 10:42 AM CDT Testing performed by [facility] ([phone]) Specimens submitted from normally sterile body sites will have all bacterial morphotypes identified. ??Specimens that contain grossly mixed faustino and/or are from body sites that are not normally sterile will be examined for Staphylococcus aureus, Pseudomonas aeruginosa, beta-hemolytic strep, vancomycin-resistant Enterococcus and fungus. ??If any of these are isolated, the organism will be reported. Current interpretive data was last revised on 2016. us Selvin Steward MD LAB MICROBIOLOGY - GENERA L ORDERABLES Final Result [facility] Department [place] [address] * Surgical pathology (04/30/2023 3:16 PM CDT) Tissue (Lung Biopsy) 04/30/2023 3:16 PM CDT 04/30/2023 5:56 PM CDT Narrative PATHOLOGY [facility] - 05/03/2023 11:38 AM CDT EPIC results best viewed via link to PDF [facility] [place] [address] Note to Patients: This report may contain [...] and explain the details. SURGICAL PATHOLOGY REPORT FINAL Patient Name: ?? CRYSTAL CAPONE Gender: ??M : ??1990 (Age: 33) [facility] [address] [place] [id number] [facility] #: ??[id number] Taken:04/30/2023 Received:04/30/2023 Reported: 05/03/2023 Patient Type: [facility] Inpatient ?? Service: Oncology Location: [facility] ??[address] Physician(s): ??Selvin Steward M.D. Diagnosis: A. ??Lung, right upper lobe, transbronchial biopsy: ? - Fragments of airway with acute and chronic inflammation ? - No evidence of malignancy ehe/05/03/2023 10:32 By this signature, I attest that the above diagnosis is based upon my personal examination of the slides(and/or other material indicated in the diagnosis). Artis Amaya M.D. Report Electronically Reviewed and Signed Out By ??Artis Amaya M.D. 05/03/2023 11:38:21 Microscopic Description and Comment: Microscopic examination substantiates the above cited diagnosis. Jhony Paniagua M.D. History: The patient is a 33-year-old man presenting with PMH of Hodgkin's lymphoma with intermittent treatment due to polysubstance abuse and lost to follow-up. ??RUL mass, concern for lymphoma versus fungal infection. ??Operative procedure: Bronchoscopy with right upper lobe transbronchial biopsies. Specimen(s) Received: A: Right upper lobe trasnbronchial biopsies Gross Description: Received in formalin, labeled with the patient? ? s identifiers and RUL TB Bx ??and consists of multiple morales-red fragment(s) of soft tissue with an aggregate measurement of 0.7 x 0.2 x 0.1 cm. ??Labeled A1. Jar 0. elsw/04/30/2023 18:15 PA(s): Coreen Jewell By this signature, I attest that the above diagnosis is based upon my personal examination of the slides(and/or other material). John Mcgill M.D. Addenda/Procedures The performance characteristics of some immunohistochemical stains, fluorescence in-situ hybridization tests and immunophenotyping by flow cytometry cited in this report (if any) were determined by the Surgical Pathology and Flow Cytometry Departments at [facility] as part of an ongoing quality assurance calibrator program and in compliance with federally mandated regulations drawn from the Clinical Laboratory Improvement Act of 1988 (CLIA '88). ??Some of these tests rely on the use of analyte specific reagents and are subject to specific labeling requirements by the US Food and Drug Administration. ??Such diagnostic tests may only be performed in a facility that is certified by the Department of Health and Human Services as a high complexity laboratory under CLIA '88. ??The FDA has determined that such clearance or approval is not necessary. ??This test is used for clinical purposes. ??It should not be regarded as investigational or for research. ??Nevertheless, federal rules concerning the medical use of analyte specific reagents require that the following disclaimer be attached to the report: This test was developed and its performance characteristics determined by the Surgical Pathology and Flow Cytometry Departments of [facility]. ??It has not been cleared or approved by the U. S. Food and Drug Administration. IMAGES AND SCANNED DOCUMENTS, IF INCLUDED, ONLY VIEWABLE IN PDF VERSION OF REPORT Selvin Steward MD LAB PATHOLOGY ORDERABLES Final Result Performing Organization Address City/State/[facility] Co de Phone Number PATHOLOGY [facility] [address]rd Floor [place], [place] [phone] * Cytology (04/30/2023 2:21 PM CDT) Fluid (Lung (Cytology)) 04/30/2023 2:21 PM CDT 04/30/2023 3:23 PM CDT Narrative PATHOLOGY [facility] - 05/03/2023 2:35 PM CDT EPIC results best viewed via link to PDF [facility] Laboratory of Surgical Pathology [facility], [place] [address] Note to Patients: This report may contain [...] can answer questions and explain the details. CYTOPATHOLOGY REPORT FINAL Patient Name: ?? CRYSTAL CAPONE Gender: ??M : ??1990 (Age: 33) Address: ??[address] [place] [address] ??[id number] Hospital #: ??[id number] Taken:04/30/2023 Received:04/30/2023 Reported: 05/03/2023 Patient Type: [facility] Inpatient ?? Service: Oncology Location: [facility] ??[address] Physician(s): ??Zaira Robbins M.D. FINAL DIAGNOSIS A. ??Lung, right upper lobe, endobronchial ultrasound-guided fluoroscopy assisted fine needle aspiration: ? - Nondiagnostic for a mass lesion; blood and benign bronchopulmonary elements only B. ??Lymph node, right hilar 11R, endobronchial ultrasound guided fine needle aspiration: ? - Negative for malignancy ? - Scant lymphoid component present Comments The cell blocks confirm the diagnoses. js2/05/03/2023 11:55 By this signature, I attest that the above diagnosis is based upon my personal examination of the slides(and/or other material indicated in the diagnosis). Artis Amaya M.D. Report Electronically Reviewed and Signed Out By ??Artis Amaya M.D. 05/03/2023 14:35:19 Dina Givens MS, [facility] Gross Description A. ??Lung, right upper lobe, endobronchial ultrasound guided fluoroscopy assisted fine needle aspiration: ??5 Pap stained smear(s) and 5 Diff-Quik stained smear(s). ??1 cell block prepared from needle rinse tube. ??Aspirated by clinician. ??(ML) B. ??Lymph node, hilar, right, 11R, endobronchial ultrasound guided fine needle aspiration: ??3 Pap stained smear(s) and 3 Diff-Quik stained smear(s). ??1 cell block prepared from needle rinse tube. ??Aspirated by clinician. (ML) Clinical Diagnosis and History 33 yo M w/ PMH of Hodgkin lymphoma with intermittent treatment due to polysubstance abuse and loss to follow-up. RUL mass, concern for lymphoam vs fungal infection. Immediate Evaluation A. ??Lung, right upper lobe, endobronchial ultrasound guided fluoroscopy assisted fine needle aspiration: ?? Evaluation Episode 1 Overall Adequacy: Inadequate Evaluation Episode 2 Overall Adequacy: Inadequate Total Evaluation Episodes: 2 Preliminary Diagnosis: Nondiagnostic for mass lesion; blood and bronchial elements B. ??Lymph node, right hilar 11R, endobronchial ultrasound guided fine needle aspiration: ?? Evaluation Episode 1 Overall Adequacy: Inadequate Total Evaluation Episodes: 1 Preliminary Diagnosis: Blood; no lymph node present Artis Amaya M.D., Ph.D. 04/30/2023 REPORT IMAGES AND SCANNED DOCUMENTS, IF INCLUDED, ONLY VIEWABLE IN PDF VERSION OF REPORT The performance characteristics of some immunohistochemical stains, in-situ hybridization and fluorescence in-situ hybridization tests and immunophenotyping by flow cytometry cited in this report (if any) were determined by the Surgical Pathology and Flow Cytometry Departments at [facility] as part of an ongoing quality assurance calibrator program and in compliance with federally mandated regulations drawn from the Clinical Laboratory Improvement Act of 1988 (CLIA '88). ??Some of these tests rely on the use of analyte specific reagents and are subject to specific labeling requirements by the US Food and Drug Administration. ??Such diagnostic tests may only be performed in a facility that is certified by the Department of Health and Human Services as a high complexity laboratory under CLIA '88. ??The FDA has determined that such clearance or approval is not necessary. ??This test is used for clinical purposes. ??It should not be regarded as investigational or for research. ??Nevertheless, federal rules concerning the medical use of analyte specific reagents require that the following disclaimer be attached to the report: ??This test was developed and its performance characteristics determined by the Surgical Pathology and Flow Cytometry Departments of [facility]. ??It has not been cleared or approved by the U. S. Food and Drug Administration. Selvin Steward MD LAB CYTOLOGY ORDERABLES F inal Result PATHOLOGY [facility] 3rd Floor [place], [place] [phone] documented in this encounter Visit Diagnoses Not on filedocumented in this encounter Administered Medications Inactive Administered Medications - up to 3 most recent administrations Medication Order MAR Action Action Date Dose Rate Site fentaNYL (SUBLIMAZE) preservative free injection Code/trauma/sedation medication, Starting on Wed04/30/23 at 1415 Given 04/30/2023 3:00 PM CDT 50 mcg Given 04/30/2023 2:40 PM CDT 50 mcg Given 04/30/2023 2:27 PM CDT 50 mcg midazolam (VERSED) 1 mg/mL injection intravenous, Code/trauma/sedation medication, Starting on Wed04/30/23 at 1415 Given 04/30/2023 3:00 PM CDT 2 mg Given 04/30/2023 2:40 PM CDT 2 mg Given 04/30/2023 2:27 PM CDT 3 mg sodium chloride 0.9% infusion 50 mL/hr, intravenous, Continuous, Starting on Wed04/30/23 at 1430, For bronchoscopy procedure New Bag 04/30/2023 2:00 PM CDT 50 mL/hr 50 m L/hr documented in this encounter Orders Medications Ordered That Kendell ht Not Have Been Administered Count Last Ordered Date First Ordered Date fentaNYL (SUBLIMAZE) preserv ative free syringe 50 mcg 1 04/30/2023 midazolam (VERSED) 1 mg/mL injection 2 mg 1 04/30/2023 documented in this encounter
--- OUTSIDE RECORDS SUMMARY | 2024-06-25 06:55 | XMS_ITS | Encounter Summary ---
Author Organization [facility] Healthcare Address [address] [place] [address] Care Team Providers Care Big Data Hadoop Developer Name Role Phone Unavailable Primary Care Provider Unavailabl e Encounter Details Date Type Department Care Team (Latest Contact Info) Description 04/27/2023 4:35 PM CDT - 04/27/2023 11:59 PM CDT Hospital Encounter [facility] [address] [place] [address] Discharge Disposition: Discharge to home or self [...] on file Legal Sex Male 10:05 AM VEGETABLE TESTER Gender Identity Male 05/30/2023 9:41 PM VEGETABLE TESTER Sexual Orientation Straight 05/30/2023 9: 41 PM VEGETABLE TESTER documented as of this encounter Medications at [...] Associated Diagnosis Comments PET OUTSIDE REFERENCE Routine 04/27/2023 4:35 PM CDT Diagnosis unknown documented in this encounter Results * PET Outside Reference (04/27/2023 4:35 PM CDT) Impressions [facility] - 04/27/2023 4:35 PM CDT These images are for Reference purposes only and have not been reviewed by [facility] Radiology. ??There will be no report generated by a [facility] Radiologist. Narrative [facility] - 04/27/2023 4:35 PM CDT EXAMINATION: ??Images For Reference Purposes Only us Shasta Sena MD IMG PET PROCEDURES Final R esult [facility] documented in this encounter Visit Diagnoses Not on filedocumented in this encounter
--- OUTSIDE RECORDS SUMMARY | 2024-06-25 06:55 | XMS_ITS | Encounter Summary ---
Author Organization [facility] Healthcare Address [address] [place] [address] Care Team Providers Care Staff Midwife Name Role Phone Unavailable Primary Care Provider Unavailabl e Reason for Referral * MRI/CAT/PET Scan (Routine) - Closed Specialty Diagnoses / Procedures Referred By Contac t Referred To Contact Radiology Diagnoses Diagnosis unknown Procedures Neuro MR Outside Consult Shasta Sena MD [address] [address] Phone: tel: fax: Referral ID Status Reason Start Date Expiration Date Visits Re quested Visits Authorized [id number] Closed 04/27/2023 05/26/2024 1 1 Reason for Visit * MRI/CAT/PET Scan (Routine) - Closed Specialty Diagnoses / Procedures Referred By Contac t Referred To Contact Radiology Diagnoses Diagnosis unknown Procedures Neuro MR Outside Consult Shasta Sena MD [facility] [address] Phone: tel: fax: Referral ID Status Reason Start Date Expiration Date Visits Re quested Visits Authorized [id number] Closed 04/27/2023 05/26/2024 1 1 Encounter Details Date Type Department Care Team (Latest Contact Info) Description 04/27/2023 4:20 PM CDT - 04/27/2023 11:59 PM CDT Hospital Encounter [facility]) [address] [place] [address] Diagnosis unknown Discharge Disposition: Discharge to home [...] on file Legal Sex Male 10:05 AM TIP OUT WORKER Gender Identity Male 05/30/2023 9:41 PM TIP OUT WORKER Sexual Orientation Straight 05/30/2023 9: 41 PM TIP OUT WORKER documented as of this encounter Medications at [...] Comments NEURO MR OUTSIDE CONSULT Routine 04/27/2023 4:25 PM CDT Diagnosis unknown documented in this encounter Results * Neuro MR Outside Consult (04/27/2023 4:25 PM CDT) Anatomical Region Laterality Modality N/A Magnetic Resonan ce 04/27/2023 4:45 PM CDT Impressions 04/27/2023 4:45 PM CDT 1. ??Limited MRI of the brain due to significant motion artifact. 2. ??No overt evidence of intracranial disease. 3. ??Marrow signal heterogeneity, most pronounced at C4, suspicious for osseous and possibly epidural disease, which would be better evaluated on dedicated cervical spine MRI. The findings, conclusions and recommendations within this report do not replace the initial findings, conclusions ??and recommendations made at the facility where the study was performed based upon the imaging and clinical condition at that time. ??Comparison with the prior report and clinical history is necessary. ??The provided images may or may not represent the [place] source data set and thus may contain changes that may lower the accuracy of this second-opinion interpretation. Electronically signed by: Patricia Crowley M.D. Narrative 04/27/2023 4:45 PM CDT EXAMINATION: RADIOLOGY CONSULTATION ON OUTSIDE IMAGING STUDY STUDY INITIALLY PERFORMED: 04/25/2023 at [facility]. TYPE OF STUDY: Multiple MR images of the brain without intravenous contrast are provided at the time of this interpretation. CONTRAST ROUTE: No contrast was administered. The protocol was adequate to address the clinical question. The outside final report was available at the time of this second opinion interpretation. TYPE OF CONSULTATION: Consult on outside imaging study with images submitted through [facility] DATE OF CONSULTATION: 04/27/2023 4:37 PM HISTORY: Hodgkin's lymphoma COMPARISON: None available. FINDINGS: There is motion artifact on many of the sequences that limits evaluation, particularly the FLAIR sequence. There is mild marrow signal heterogeneity within visualized portions of the upper cervical spine, particularly at C4, which is not well evaluated on this brain MRI study. ??There is possible epidural involvement. Ventricles are normal in size. ??No focal area of vasogenic edema or significant mass effect. ??No abnormal diffusion restriction is seen. Susceptibility weighted imaging is limited, but does not show any large hemorrhages. ??The pituitary appears normal. ??Limited views of the orbits are unremarkable. ??The paranasal sinuses are grossly normal. ??Flow voids are present within the carotid and basilar arteries. Procedure Note Patricia Crowley MD - 04/27/2023 EXAMINATION: RADIOLOGY CONSULTATION ON OUTSIDE IMAGING STUDY STUDY INITIALLY PERFORMED: 04/25/2023 at [facility]. TYPE OF STUDY: Multiple MR images of the brain without intravenous contrast are provided at the time of this interpretation. CONTRAST ROUTE: No contrast was administered. The protocol was adequate to address the clinical question. The outside final report was available at the time of this second opinion interpretation. TYPE OF CONSULTATION: Consult on outside imaging study with images submitted through [facility] DATE OF CONSULTATION: 04/27/2023 4:37 PM HISTORY: Hodgkin's lymphoma COMPARISON: None available. FINDINGS: There is motion artifact on many of the sequences that limits evaluation, particularly the FLAIR sequence. There is mild marrow signal heterogeneity within visualized portions of the upper cervical spine, particularly at C4, which is not well evaluated on this brain MRI study. There is possible epidural involvement. Ventricles are normal in size. No focal area of vasogenic edema or significant mass effect. No abnormal diffusion restriction is seen. Susceptibility weighted imaging is limited, but does not show any large hemorrhages. The pituitary appears normal. Limited views of the orbits are unremarkable. The paranasal sinuses are grossly normal. Flow voids are present within the carotid and basilar arteries. IMPRESSION: 1. Limited MRI of the brain due to significant motion artifact. 2. No overt evidence of intracranial disease. 3. Marrow signal heterogeneity, most pronounced at C4, suspicious for osseous and possibly epidural disease, which would be better evaluated on dedicated cervical spine MRI. The findings, conclusions and recommendations within this report do not replace the initial findings, conclusions and recommendations made at the facility where the study was performed based upon the imaging and clinical condition at that time. Comparison with the prior report and clinical history is necessary. The provided images may or may not represent the [place] source data set and thus may contain changes that may lower the accuracy of this second-opinion interpretation. Electronically signed by: Patricia Crowley M.D. us Shatsa Sena MD IMG MRI PROCEDURES Final R esult documented in this encounter Visit Diagnoses Diagnosis Diagnosis unknown documented in this encounter
== END 2024-06-19 08:23 | disposition home or self-care (01) ==
PROVIDERS: PCP Family Medicine; Visit Provider Internal Medicine Hematology & Oncology
DX: Z51.11 Encounter for antineoplastic chemotherapy (principal); C81.90 Hodgkin lymphoma, unspecified, unspecified site
CPT/HCPCS: 36415; 36591; 80053; 85025; 96367; 96375; 96413; 96417; A9270; J1200; J1720; J2405; J7050; J9042; J9299

== ENCOUNTER 2024-06-22 09:35 | Outpatient (CLI) | payer OTHER, SELFPAY ==
--- NOTE | ~2024-06-22 | MR_ITS ---
MRI of the lumbar spine Clinical History: Hodgkin's disease Technique: Axial T2-weighted images, and sagittal T1-weighted, T2-weighted, and T2 fat-sat images wer e acquired. Following intravenous administration of 15 cc MultiHance gadolinium, T1-weighted fat-sat imaging was performed in the axial and sagittal planes. Findings: No acute fracture seen. There are multiple STIR hyperintense, T1 hypointense osseous lesion s, particularly involving the L2, L4, S1, S2 vertebral bodies. Probable partial visualization of lesi on at T11. Small lesion present anteriorly at T12. No subluxation. At L1-L2, there is no disc bulge or herniation. No spinal canal stenosis or neural foraminal narrowin g. At L2-L3, there is no disc bulge or herniation. No spinal canal stenosis or neural foraminal narrowin g. At L3-L4, there is mild to moderate degenerative distended with minimal disc bulge and mild facet art hropathy. No central canal stenosis or neural foraminal narrowing. At L4-L5, there is minimal disc bulge with mild facet arthropathy. No central canal stenosis. There i s mild left neural foraminal narrowing, and moderate to severe right neural foraminal narrowing. At L5-S1, there is severe left facet arthropathy. No central canal stenosis. There is moderate to sev ere left neural foraminal narrowing. Right neural foramen preserved. Paravertebral soft tissues are unremarkable. Postcontrast images demonstrate enhancement of the aforementioned osseous lesions. There are addition al enhancing lesions in the bilateral iliac bones near the SI joint regions. There is extensive enhan cing lesion involving the left sacrum. Impression: Extensive osseous metastatic disease, with extensive involving the left sacrum, with additional lesio ns involving the T11, T12, L2, L4 vertebral bodies, as well as the S1 and S2 vertebral bodies, and bi lateral iliac bones. Neural foraminal narrowing on the left side at L5-S1. Bilateral neural foraminal narrowing at L4-L5, as detailed above. Reviewed, dictated and finalized at location M. HOUSE SHIPPING SUPERVISOR Impression: Extensive osseous metastatic disease, with extensive involving the left sacrum, with additional lesions involving the T11, T12, L2, L4 vertebral bodies, as we ll as the S1 and S2 vertebral bodies, and bilateral iliac bones. Neural foraminal narrowing on the left side at L5-S1. Bilateral neural foramina l narrowing at L4-L5, as detailed above.
--- NOTE | ~2024-06-22 | MR_ITS ---
EXAMINATION: MR pelvis wo/w con DATE: 06/22/2024 12:07 INDICATION: Hodgkin disease. TECHNIQUE: Magnetic resonance imaging (MRI) of the pelvis was performed without and with 15 mL MultiH ance intravenous contrast. COMPARISON: CT 05/03/2024 FINDINGS: There are no dilated loops of bowel. There are no pathologically enlarged lymph nodes. There is no as cites. There are numerous scattered enhancing lesions in the pelvic bones, spine, and proximal femora . There is a chronic pathologic fracture of L4. IMPRESSION: 1. Stable bone lesions, consistent with metastatic disease versus lymphoma. Reviewed, dictated and finalized at location A. TS MARKETING SPECIALIST
--- NOTE | ~2024-06-22 | MR_ITS ---
MRI of the brain Clinical History: Hodgkin's disease Technique: Axial and sagittal T1-weighted images were acquired. These were followed by axial T2-weigh cyndi, diffusion weighted, gradient, and FLAIR images. Following intravenous administration of 15 cc Mu ltiHance gadolinium, T1-weighted fat-sat imaging was performed in the axial and coronal planes. Findings: No abnormal signal seen in the brain parenchyma. No acute infarct, intracranial hemorrhage, or mass lesion. Ventricles and subarachnoid spaces are unremarkable. Orbits are unremarkable. Paranasal sinuses and m astoid air cells are clear. Major intracranial flow voids are intact. Sagittal midline structures are intact. No abnormal postcontrast enhancement identified. IMPRESSION: Normal exam. No evidence for intracranial metastasis. Reviewed, dictated and finalized at location . ING SUPERVISOR
== END 2024-06-22 09:36 | disposition home or self-care (01) ==
LOC: CHSIMG 09:36
PROVIDERS: PCP Family Medicine; Visit Provider Internal Medicine Hematology
DX: C81.90 Hodgkin lymphoma, unspecified, unspecified site (principal); G95.89 Other specified diseases of spinal cord; M48.061 Spinal stenosis, lumbar region without neurogenic claudication; M48.07 Spinal stenosis, lumbosacral region
CPT/HCPCS: 70553; 72158; 72197; A9577

== ENCOUNTER 2024-07-14 08:04 | Outpatient (CLI) | payer OTHER, SELFPAY ==
[2024-07-14 08:10] VITALS: BP 130/70; PULSE 88; RESP 16; TEMP 36.6; O2SAT 97; BMI 26.5
[2024-07-14 08:25] LABS: Basophils Absolute Auto 0.01 K/mm3 (0.00-0.10); Basophils Percent Auto 0.2 % (0.0-1.0); Eosinophils Absolute Auto 0.24 K/mm3 (0.02-0.50); Eosinophils Percent Auto 4.6 % (1.0-6.0); Hematocrit 42.4 % (40.0-54.0); Immature Granulocyte Absolute 0.01 K/mm3 (0.00-0.00); Immature Granulocyte Percent A 0.2 % (0.0-0.0); Lymphocytes Absolute Auto 0.84 K/mm3 (1.10-4.50); Mean Corpuscular Hemoglobin 26.6 pg (27.0-31.0); Mean Corpuscular Volume 80.5 fL (78.0-102.0); Mean Platelet Volume 9.5 fl (8.7-11.0); Monocytes Absolute Auto 0.62 K/mm3 (0.10-0.90); Monocytes Percent Auto 11.8 % (2.0-11.0); Neutrophils Absolute Auto 3.53 K/mm3 (1.70-7.20); Neutrophils Percent Auto 67.2 % (50.0-70.0); Platelet Count Result 213 K/mm3 (150-420); Red Blood Count 5.27 M/mm3 (4.70-6.10); Red Cell Distribution Width 15.6 % (11.6-14.4); White Blood Count 5.3 K/mm3 (4.8-10.8)
[2024-07-14 08:48] LABS: Alanine Aminotransferase 18 U/L (16-63); Albumin Level 3.8 g/dL (3.4-5.0); Alkaline Phosphatase 105 U/L (46-116); Anion Gap 6 mmol/L (4-12); Aspartate Amino Transferase 10 U/L (15-37); Bilirubin,Total 0.4 mg/dL (0.00-1.00); Blood Urea Nitrogen 14 mg/dL (7-18); Calcium 8.9 mg/dL (8.5-10.1); Carbon Dioxide 31 mmol/L (21-32); Chloride 102 mmol/L (98-108); Estimated CRCL calculation 75 ml/min; Estimated Glomerular Filt Rate > 60; Glucose 131 mg/dL (70-99); Osmolality Calculated 290 mOsm/kg (285-295); Potassium 3.4 mmol/L (3.5-5.1); Sodium 139 mmol/L (136-145); Thyroid Stimulating Hormone 0.97 uIU/mL (0.36-3.74); Total Protein 7.1 g/dL (6.4-8.2)
[2024-07-14] MEDS: ACETAMINOPHEN 325 MG TABLET 650 MG PO (09:00)
[2024-07-14] MEDS: diphenhydrAMINE HCl INJ 50 MG/ML VIAL 25 MG IV PUSH (09:02)
[2024-07-14] MEDS: FAMOTIDINE 20 MG/ISO 50 ML 20 MG/50 ML BAG 150 MG IVPB (09:03)
[2024-07-14] MEDS: HYDROCORTISONE SODIUM SUCCINATE 100 MG/2 ML VIAL IV PUSH (09:03)
[2024-07-14] MEDS: SODIUM CHLORIDE 0.9% IV 250 ML 10 ML IVPB (09:03)
[2024-07-14] MEDS: ONDANSETRON INJ 16 MG in SODIUM CHLORIDE 0.9% IV 50 ML 150 MG IVPB (09:23)
[2024-07-14] MEDS: SODIUM CHLORIDE 0.9% IVPB ×2 (09:50→10:25)
[2024-07-14] MEDS: BRENTUXIMAB VEDOTIN IVPB (09:50)
[2024-07-14] MEDS: NIVOLUMAB IVPB (10:25)
[2024-07-14] MEDS: HEPARIN SODIUM LOCK FLUSH 500 UNITS/5 ML SYRINGE IV PUSH (11:41)
[2024-07-14 11:58] VITALS: BP 136/72; PULSE 80; RESP 14; TEMP 36.6; O2SAT 97
--- NOTE | 2024-07-14 11:59 | PC.NURSE ---
Patient tolerated chemo treatment well. SEE MAR/patient care notes.
== END 2024-07-14 08:05 | disposition home or self-care (01) ==
PROVIDERS: PCP Family Medicine; Visit Provider Internal Medicine Hematology & Oncology
DX: Z51.11 Encounter for antineoplastic chemotherapy (principal); D70.8 Other neutropenia; C81.90 Hodgkin lymphoma, unspecified, unspecified site
CPT/HCPCS: 36415; 36591; 80053; 82533; 84443; 85025; 96367; 96375; 96413; 96417; J1200; J1720; J2405; J7050; J9042; J9299

== ENCOUNTER 2024-08-03 08:16 | Outpatient (CLI) | payer OTHER, SELFPAY ==
[2024-08-03 08:20] VITALS: BP 132/81; PULSE 78; RESP 14; TEMP 36.6; O2SAT 97; BMI 26.5
--- OUTSIDE RECORDS SUMMARY | 2024-08-03 08:27 | XMS_ITS | Referral Summary ---
Author Organization [facility] Address [address] [place] [address] Care Team Providers Care Press Operator Apprentice Name Role Phone Shasta Sena MD Unavailable [phone] No, Physician Primary Care Provider [phone] Encounters Date Type Department Care Team Description 08/01/2024 Telephone [facility] Ophthalmology [address] [place] [address] [place] [phone] No, Physician 07/28/2024 4:00 PM ASSISTANT CHIEF ENGINEER Office Visit [facility] Ophthalmology [address] [place] [phone] Floresita Chavez MD 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); Malignant neoplasm of conjunctiva, right (HCC); Uveitis, anterior 07/21/2024 8:30 AM ASSISTANT CHIEF ENGINEER Office Visit [facility] Ophthalmology [address] [place] [phone] Floresita Chavez MD Uveitis, anterior (Primary Dx); 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); Malignant neoplasm of conjunctiva, right (HCC) 07/19/2024 Telephone [facility] Ophthalmology [facility] [place] [address] Saul Monteiro MD PhD Scheduling Appointments 05/03/2024 Orders Only [facility] Scanning, Provider from Last 3 Months Allergies No known active allergies Medications albuterol HFA (PROVENTIL HFA,VENTOLIN HFA,PROAIR HFA) 90 mcg/actuation inhalerIndicati ons:Hodgkin lymphoma, unspecified Hodgkin lymphoma type, unspecified body region (HCC) Inhale 2 puffs once as needed for wheezing or shortness of breath (if Nebulizer not available) 1 each 05/05/[address] (CYMBALTA) 60 mg capsule [...] rash in groin 453 g 1 06/16/[address] (PROTONIX) 40 mg EC tabletIndicatio ns:Stress Ulcer Prophylaxis Take 1 tablet (40 mg total) by mouth 2 (two) times a day 60 tablet 11 06/30/20 Active gabapentin (NEURONTIN) 600 mg tablet Take 1 tablet (600 mg total) by mouth 3 (three) times a day 90 tablet 11 06/30/20 Active morphine ER (MS CONTIN) 15 mg 12 hr tablet Take 1 tablet (15 mg total) by mouth 2 (two) times a day for 21 days 42 tablet 06/30/20 Active HYDROcodone-vernon taminophen (NORCO) 10-325 mg per tablet Take 1 tablet by mouth every 8 (eight) hours as needed for pain 60 tablet 06/30/20 Active prednisoLONE acetate (PRED FORTE) 1 % ophthalmic suspension Administer 1 drop into the right eye 6 (six) times a day 5 mL 11 07/21/19 25 Active Active Problems Problem Noted Date Diagnosed Date Malignant neoplasm of conjunctiva, right 025 Uveitis, anterior 07/31/2024 Prevention of chemotherapy-induced neutropenia 1 Lesion of [...] 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 Ashford, [place], [place]. 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 Male 10:05 AM ASSISTANT CHIEF ENGINEER Gender Identity Male 05/30/2023 9:41 PM ASSISTANT CHIEF ENGINEER Sexual Orientation Straight 05/30/2023 9: 41 PM ASSISTANT CHIEF ENGINEER Last Filed Vital Signs Vital Sign Reading Time Taken Comments Blood Pressure 144/81 06/30/2023 11:15 AM ASSISTANT CHIEF ENGINEER Pulse 81 06/30/2023 11:15 AM ASSISTANT CHIEF ENGINEER Temperature 36.6 ??C (97.8 ??F) 06/30/2023 11:[address] Respiratory Rate 18 06/30/2023 11:15 AM ASSISTANT CHIEF ENGINEER Oxygen Saturation 96% 06/30/2023 11:15 AM ASSISTANT CHIEF ENGINEER Inhaled Oxygen Concentration - - Weight 67.9 kg (149 lb 9.6 oz) 06/30/2023 11:15 AM ASSISTANT CHIEF ENGINEER Height 167.6 cm (5' 6 ) 04/28/2023 11:20 AM CDT Body Mass Index 24.15 04/28/2023 11:20 AM CDT Plan of Treatment Not on file Procedures Procedure Name Priority Date/Time Associated Diagnosis Comments B-SCAN ULTRASOUND 28084 - OD - RIGHT EYE Routine 07/21/2024 8:30 AM ASSISTANT CHIEF ENGINEER Uveitis, anterior SCAN - LABS 05/03/2024 SCAN - RADIOLOGY/IMAGING 05/03/2024 from Last 3 Months Results * B-SCAN ULTRASOUND 67889 - OD - RIGHT EYE (07/21/2024 8:30 AM ASSISTANT CHIEF ENGINEER) Anatomical Region Laterality Modality Head Ultrasound Narrative 07/25/2024 11:37 AM ASSISTANT CHIEF ENGINEER No vitreitis, RD, no obvious CME us Floresita Chavez MD OPHTH ULTRASOUND Final Res ult * SCAN - RADIOLOGY/IMAGING (05/03/2024) Anatomical Region Laterality Modality Other us Provider Scanning Final Result * SCAN - LABS (05/03/2024) us Provider Scanning Final Result from Last 3 Months Insurance [facility] Advance Directives For more information, please contact: [phone] * Full Code (Latest Code Status on File) Date Activated Date Inactivated Comments 04/28/2023 11:03 AM 05/05/2023 7:19 PM Care Teams Press Operator Apprentice Relationship Specialty Start Date End Date No, Physician PCP - General 05/06/23 Shasta Sena MD [address] [facility] [address] [place] [address] Medical Oncologist/Project Admin Medical Oncology 05/05/23
--- OUTSIDE RECORDS SUMMARY | 2024-08-03 08:27 | XMS_ITS ---
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 Ashford, [place], [place]. S/p ABVD (2 cycles) with progression [...] treatments are documented for this patient in [facility]. Treatments may have been administered in another system. Lifetime Dose Tracking * Chemical Lifetime Dose Automatic Entry Manual Entr y doxorubicin HCl pegylated liposomal 79.996 mg/m2 (148.4 mg) 79.996 mg/m2 (148.4 mg) 0 mg/m2 (0 mg) doxorubicin isotoxic equivalent (Please manually verify calculation) 79.996 mg/m2 (148.4 mg) 79.996 mg/m2 (148.4 mg) 0 mg/m2 (0 mg)
--- OUTSIDE RECORDS SUMMARY | 2024-08-03 08:27 | XMS_ITS | Encounter Summary ---
Author Organization [facility] Address [address] [place] [address]. [place], [place] [address] [place] [address] Care Team Providers Care Family Partner Name Role Phone FeleciaCandido kincaid Primary Care Provider [phone] Ambrocio Ashford MD Unavailable [phone] Reason for Visit * Reason Onset [...] (Late st Contact Info) Description 05/16/2024 Telephone [facility] Interventional Radiology [address] [place] [address] Carin Hassan RN Preprocedure Call (Spoke with [...] week 04/24/2023 How often do you attend mosque or christianity serv ices? Never 04/24/2023 Do you belong to any clubs o r organizations such as mosque groups, unions, fraternal or athletic groups, or [...] move on to questions 3-9 0 04/14/2022 [facility] - Occupational [...] slept in a longterm (including now)? No 04/24/2023 Sex and Gender Information Value Date Recorded Sex Assigned at Not on file Legal Sex Male 5:44 PM BANKING SERVICES CLERK Gender Identity Male 04/14/2022 9:23 PM CDT [...] documented in this encounter Plan of Treatment Upcoming Encounters Date Type Department Care Team (Late st Contact Info) Description 08/10/2024 10:00 AM BANKING SERVICES CLERK Appointment [facility] PET [address] [place], [place] [address] Dhiraj Hansen MD [address] Floor Clinic [place], [place] [address] documented as of this encounter Goals Goal Patient Goal Type Associated Problems Recent Progress Patient-Stated? Author Safety ? Patient/family will have appropriate support at home upon discharge Lifestyle No Rama Chahal power barker - family caregiver with be involved in [...] documented as of this encounter Care Teams Family Partner Relationship Specialty Start Date End Date Candido Hayes DO [address] [place] [address] PCP - General FAMILY PRACTICE 04/14/22 Ambrocio Ashford MD [address] [place] [address] INTERNAL MEDICINE 10/27/22 documented as of this encounter
--- OUTSIDE RECORDS SUMMARY | 2024-08-03 08:27 | XMS_ITS | Encounter Summary ---
Author Organization [facility] Address [address] [place] [address]. [place] [address] [place] [address] Care Team Providers Care Pony Roll Finisher Name Role Phone Sara Tysona [facility] Primary Care Provider [phone] Candido Hayes DO Primary Care Provider [phone] Ambrocio Ashford MD Unavailable [phone] Encounter Details Date Type Department Care Team (Late st Contact Info) Description 12/10/2018 Abstract [facility] CONVERSION [address] [place] [address] , Generic Conversion, Social History Tobacco Use Types Packs/Day Years Used Date Smoking Tobacco: Never Assessed Sex and Gender Information Value Date Recorded Sex Assigned at Not on file Legal Sex Male 5:44 PM SPECK DYER Gender Identity Male 04/14/2022 9:23 PM CDT Sexual Orientation Straight 04/14/2022 9: 23 PM CDT documented as of this encounter Plan of Treatment Upcoming Encounters Date Type Department Care Team (Late st Contact Info) Description 08/10/2024 10:00 AM SPECK DYER Appointment [facility] [address] [place] [address] Dhiraj Hansen MD [address] [place] [address] documented as of this encounter Visit Diagnoses Not on filedocumented in this encounter Additional Health Concerns Infection Onset Date Last Indicated Resolved Time COVID-19 Rule Out 04/05/2022 04/05/2022 04/05/2022 10:30 PM CDT MRSA Comment:04/14/22 nose (JJ) 04/16/2022 04/26/2023 COVID-19 Rule Out 10/27/2022 10/27/2022 10/27/2022 6:37 PM CDT COVID-19 Rule Out 12/15/2022 12/15/2022 12/15/2022 1:07 PM CDT documented as of this encounter Care Teams Pony Roll Finisher Relationship Specialty Start Date End Date Jazmin Tyson FNP- [address] [place] [address] PCP - General NURSE PRACTITIONER 05/09/19 04/13/22 Candido Hayes DO [address] [place] [address] PCP - General FAMILY PRACTICE 04/14/22 Ambrocio Ashford MD [address] [place] [address] INTERNAL MEDICINE 10/27/22 documented as of this encounter
--- OUTSIDE RECORDS SUMMARY | 2024-08-03 08:27 | XMS_ITS | Clinical Summary ---
Author Organization [facility] Address [address] [place] [address]. 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 Never 04/24/2023 Do you belong to any clubs o r organizations such as catholic groups, unions, fraternal or athletic groups, or [...] on file Legal Sex Male 5:44 PM LADIES' HAT TRIMMER Gender Identity Male 04/14/2022 9:23 PM CDT Sexual Orientation Straight 04/14/2022 9: 23 PM CDT Last Filed Vital Signs Vital Sign Reading Time Taken Comments Blood Pressure 117/86 05/23/2024 11:45 AM LADIES' HAT TRIMMER Pulse 87 05/23/2024 11:45 AM LADIES' HAT TRIMMER Temperature 36.4 ??C (97.5 ??F) 04/28/2023 8:23 AM CD T Respiratory Rate 16 05/23/2024 11:45 AM LADIES' HAT TRIMMER Oxygen Saturation 99% 05/23/2024 11:45 AM LADIES' HAT TRIMMER Inhaled Oxygen Concentration - - Weight 70.3 kg (155 lb) 05/23/2024 10:37 AM LADIES' HAT TRIMMER Height 167.6 cm (5' 6 ) 05/23/2024 10:37 AM LADIES' HAT TRIMMER Body Mass Index 25.02 05/23/2024 10:37 AM LADIES' HAT TRIMMER Plan of Treatment Upcoming Encounters Date Type Department Care Team (Late st Contact Info) Description 08/10/2024 10:00 AM LADIES' HAT TRIMMER Appointment [facility] PET [address] [place] [address] Carla Lopez MD [address] 1[address] [place] [address] Health Maintenance Due Date Last Done Comments [...] patient's age to complete this topic Meningococcal B Vaccine Aged Out No l onger eligible based on patient's age to complete [...] home upon discharge Lifestyle No Rama Chahal, pellet mill operator - family caregiver with be involved in care transitions and discharge planning Lifestyle No Catrina Tyler, casino operations supervisor Procedure Name Priority Date/Time Associated Diagnosis Comments US GD LYMPH NODE BX Routine 05/23/2024 1 2:22 PM LADIES' HAT TRIMMER Hodgkin disease of bone marrow (CMS/HCC HHS/HCC) CBC W/DIFF AUTOMATED Routine 05/23/2024 9:34 AM LADIES' HAT TRIMMER Non Hodgkin's lymphoma (CMS/HCC HHS/HCC) PROTHROMBIN TIME, VENOUS Routine 05/23/2024 9:34 AM LADIES' HAT TRIMMER Non Hodgkin's lymphoma (CMS/HCC HHS/HCC) PET EYE TO THIGH [id number] Routine 05/23/2024 9:14 AM LADIES' HAT TRIMMER Hodgkin disease of bone marrow (CMS/HCC HHS/HCC) POCT GLUCOSE - STEARNS DOCKED DEVICE Routine 05/23/2024 8:09 AM LADIES' HAT TRIMMER PATHOLOGY Routine 05/23/2024 12:00 AM LADIES' HAT TRIMMER from Last 3 Months Results * US GD LYMPH NODE BX (05/23/2024 12:22 PM LADIES' HAT TRIMMER) Anatomical Region Laterality Modality Undefined Ultrasound, Radi ographic Imaging 05/23/2024 2:41 PM LADIES' HAT TRIMMER Impressions 05/26/2024 5:04 PM LADIES' HAT TRIMMER IMPRESSION: Uneventful ultrasound-guided biopsy of a right [...] 05/23/2024 2:41 PM Narrative 05/26/2024 5:04 PM LADIES' HAT TRIMMER [facility] [address] [place], [place] [address] PROCEDURE: Ultrasound-guided percutaneous biopsy of right inguinal lymph node PRE-OP DIAGNOSIS: Lymphadenopathy POSTOP DIAGNOSIS: same INDICATION: History of Hodgkin's lymphoma with suspected recurrence COMPARISON: PET/CT 05/23/2024. Ultrasound-guided lymph node biopsy 04/27/2023 Primary providers: Get Chavez M.D. Resident. Filiberto Nichols PA-C Supervising physician: Johnny Galaviz MD PROCEDURE: Following informed consent and Mead protocol to verify correct patient, site, and [...] needle. Slide preparations were created, and a compliance lead was present to confirm specimen adequacy. ??A flow cytometry sample was collected. Hemostasis at the biopsy site was achieved easily using manual compression. A dressing was applied. The patient appeared to tolerate the procedure well. SPECIMENS: as above EBL: Minimal Procedure Note Johnny Galaviz MD - 05/26/2024 [facility] [address] [place], [place] [address] PROCEDURE: Ultrasound-guided percutaneous biopsy of right inguinal lymphnode PRE-OP DIAGNOSIS: Lymphadenopathy POSTOP DIAGNOSIS: same INDICATION: History of Hodgkin's lymphoma with suspected recurrence COMPARISON: PET/CT 05/23/2024. Ultrasound-guided lymph node antpai9904/27/2023 Primary providers: Get Chavez M.D. Resident. Filiberto Nichols PA-C Supervising physician: Johnny Galaviz MD PROCEDURE: Following informed consent and Mead protocol to verifycorrect patient, site, and procedure [...] Biopince needle. Slidepreparations were created, and a compliance lead was present to confirmspecimen adequacy. A flow [...] PROTIME/INR, VENOUS (PROTHROMBIN TIME) (05/23/2024 9:34 AM LADIES' HAT TRIMMER) PROTIME 13.5(H) 9.4 - 12.5 SEC 05/23/2024 10:04 AM LADIES' HAT TRIMMER [facility] INR 1.2(H) 0.8 - 1.1 05/23/2024 10:04 AM LADIES' HAT TRIMMER [facility] 05/23/2024 9:34 AM LADIES' HAT TRIMMER Johnny Galaviz MD LABORATORY Final Result [facility] [address] [place] [address], [id number] * (ABNORMAL) CBC W/DIFF AUTOMATED (05/23/2024 9:34 AM LADIES' HAT TRIMMER) WBC 10.92(H) 4.00 - 10.80 x10'3/uL 05/23/2024 9:41 AM LADIES' HAT TRIMMER [facility] RBC 4.49(L) 4.50 - 6.10 x10'6/uL 05/23/2024 9:41 AM [facility] HGB 11.8(L) 12.0 - 16.0 G/DL 05/23/2024 9:41 AM [facility] HCT 37.1 37.0 - 52.0 % 05/23/2024 9:41 AM [facility] MCV 82.6 78.0 - 100.0 FL 05/23/2024 9:41 AM [facility] MCH 26.3(L) 27.0 - 31.0 PG 05/23/2024 9:41 AM [facility] MCHC 31.8(L) 33.0 - 36.0 G/DL 05/23/2024 9:41 AM [facility] RDW 14.8(H) 11.5 - 14.5 % 05/23/2024 9:41 AM [facility] PLT 220 150 - 350 x10'3/uL 05/23/2024 9:41 AM [facility] MPV 9.0 7.4 - 10.4 FL 05/23/2024 9:41 AM [facility] DIFFERENTIAL TYPE AUTOMATED DIFFERENTIAL 05/23/2024 9:41 AM [facility] SEG NEUTROPHILS 83.6 % 9:41 AM [facility] LYMPHOCYTES 4.3 % 05/23/2024 9:41 AM LADIES' HAT TRIMMER [facility] MONOCYTES 9.4 % 05/23/2024 9:41 AM LADIES' HAT TRIMMER [facility] EOSINOPHILS 2.1 % 05/23/2024 9:41 AM LADIES' HAT TRIMMER [facility] BASOPHILS 0.1 % 05/23/2024 9:41 AM [facility] IMMATURE GRANS % 0.5 % 05/23/20 9:41 AM LADIES' HAT TRIMMER [facility] ABS. NEUTROPHILS 9.13(H) 1.60 - 8.30 x10'3/uL 05/23/2024 9:41 AM LADIES' HAT TRIMMER [facility] ABS. LYMPHOCYTES 0.47(L) 0.80 - 4.70 x10'3/uL 05/23/2024 9:41 AM LADIES' HAT TRIMMER [facility] ABS. MONOCYTES 1.03 0.00 - 1.50 x10'3/uL 05/23/2024 9:41 AM LADIES' HAT TRIMMER [facility] ABS. EOSINOPHILS 0.23 0.00 - 0.40 x10'3/uL 05/23/2024 9:41 AM LADIES' HAT TRIMMER [facility] ABS. BASOPHILS 0.01 0.00 - 0.20 x10'3/uL 05/23/2024 9:41 AM [facility] ABS. IMMATURE GRANULOCYTES 0.05(H) 0.00 - 0.03 x10'3/uL 05/23/2024 9:41 AM LADIES' HAT TRIMMER [facility] ABS. NUCLEATED RBC'S 0.00 0.00 - 0.01 x10'3/uL 05/23/2024 9:41 AM LADIES' HAT TRIMMER [facility] NRBC % 0.0 % 05/23/2024 9:41 AM [facility] 05/23/2024 9:34 AM LADIES' HAT TRIMMER Johnny Galaviz MD LABORATORY Final Result [facility] [address], [id number] * PET EYE TO THIGH [id number] (05/23/2024 9:14 AM LADIES' HAT TRIMMER) Anatomical Region Laterality Modality Body Positron Emissio n Tomography (PET), Positron Emission Tomography (PET) 05/23/2024 9:40 AM LADIES' HAT TRIMMER Impressions 05/24/2024 9:26 AM LADIES' HAT TRIMMER IMPRESSION: ?? 1. Progressive disease with new [...] 05/23/2024 9:40 AM Narrative 05/24/2024 9:26 AM LADIES' HAT TRIMMER [place] [id number] EXAMINATION: TUMOR FDG-PET/CT IMAGING DATE OF STUDY: ??05/23/2024 8:01 AM SCANNER: [facility] RADIOPHARMACEUTICAL: 12.0 mCi F-18 Fluorodeoxyglucose (FDG) i.v. [...] obtained. ??The study was interpreted on the [employer] workstation. ??The mean liver SUV (reported for quality control clerk purposes) is 1.2. ?? The total scanned area was skull vertex to the proximal thighs. ??Images of the body were obtained starting 50 minutes after injection of tracer. COMPARISON: PET/CT 11/26/2021, 10/14/2023 from [facility], ??CT abdomen/pelvis 04/26/2023, CT abdomen/pelvis 05/03/2024, CT [...] Procedure Note Alexandria Christiansen MD - 05/24/[address] [address] EXAMINATION: TUMOR FDG-PET/CT IMAGING DATE OF STUDY: 05/23/2024 8:01 AM SCANNER: [facility] RADIOPHARMACEUTICAL: 12.0 mCi F-18 Fluorodeoxyglucose (FDG) i.v.Injection site: Right antecubital fossa HISTORY: Hodgkin's lymphoma. Recent outside CT scan showed diseaseprogression. Initial diagnosis 02/10/2022. Has previously completed 6 cyclesof Prembrolizumab/JVD. The study is requested for restaging of documentedrecurrent disease . Subsequent treatment strategy. TECHNIQUE: The patient's fasting blood glucose level, measured byglucometer before injection of FDG, was 97 mg/dL. Roshan was notgiven orally. After intravenous administration of FDG, noncontrast CTimages were obtained for attenuation correction and for fusion withemission PET images to allow for anatomical localization of PET findings.Emission PET images were then obtained. The study was interpreted on [facility] workstation. The mean liver SUV (reported for quality controlpurposes) is 1.2. The total scanned area was skull vertex to the proximal thighs. Images ofthe body were obtained starting 50 minutes after injection of tracer. COMPARISON: PET/CT 11/26/2021, 10/14/2023 from [facility], CTabdomen/pelvis 04/26/2023, CT abdomen/pelvis 05/03/2024, CT lumbar [...] thecontent of this report. Ordered By: CARLA LPOEZ Interpreted By: Dima Murrieta MD, 05/23/2024 9:40 AM Carla Lopez MD PET Final Result * POCT glucose (05/23/2024 8:09 AM LADIES' HAT TRIMMER) GLUCOSE POC 97 70 - 109 05/23/2024 8:13 AM LADIES' HAT TRIMMER [facility] 05/23/2024 8:09 AM LADIES' HAT TRIMMER Carla Lopez MD POCT ORDERABLES - DEV ICE Final Result [facility] [address] [place] [address], [id number] * Pathology (05/23/2024 12:00 AM LADIES' HAT TRIMMER) PATHOLOGY [facility] ? Department of Laboratory Medicine ?[address] [facility] ?[place] [address] ? , [facility] [id number] ? Pathology Report ? Addendum ? Surgical Pathology Report Name: CRYSTAL CAPONE ? Specimen #: [id number] Age: 8 1990 (Age: 34) ? Location: [facility] Sex: M ?Procedure Date: 05/23/2024 Hospital #: [id number] ?Date Received: 05/23/2024 Date Reported: Provider: CARLA [...] tests were developed by and performed at [facility], [address] [place] [address]. All tests reported here have not been cleared or approved by the U.S. Food and Drug Administration (FDA). This laboratory is regulated under CLIA as qualified to perform high-complexity testing. These tests are used for clinical purposes. They should not be regarded as investigational or for research. Positive and negative controls show appropriate reactivity. Gross examination (when applicable) was performed at [facility], [address] [place] [address]. This case was interpreted and signed out at [facility], [address] [place] [address]. Intraoperative Diagnosis: Lymph node, right inguinal, needle biopsy: ? -Pass 1: Adequate. ? -1 core in formalin. Rapid on-site consultation performed by PEREZ Woodard (ASCP) at [facility], [address] [place] [id number]. FINAL DIAGNOSIS: Lymph node, right inguinal, needle [...] ?Date Complete: ? 05/25/2024 ? By: Sydnee Pirtchard M.D ? Date Reported: ? 05/30/2024 ? Addendum Diagnosis {Not Entered} Addendum Comment An AFB stain is negative for acid-fast bacteria. The above special stain was performed and interpreted by [facility] ([place], [place]). ??A positive control was reported as reviewed and accepted. ? Sydnee Pritchard M.D. [facility] 05/23/2024 05/23/2024 1:3 5 PM LADIES' HAT TRIMMER Comment:Lymph node, right in guinal, biopsy Carla Lopez MD PATHOLOGY/CYTOLOGY ORDERAB LES Final Result [facility] [address] [place] [address], [id number] from Last 3 Months Additional Health Concerns [...] 11:10 PM 04/06/2022 4:15 PM Care Teams It Administrator Relationship Specialty Start Date End Date Candido Hayes DO [address] [place] [address] PCP - General FAMILY PRACTICE 04/14/22 Ambrocio Ashford MD [address] [place] [address] INTERNAL MEDICINE 10/27/22
--- OUTSIDE RECORDS SUMMARY | 2024-08-03 08:27 | XMS_ITS | Encounter Summary ---
Author Organization [facility] Address [address] [place] [address] Phone Care Team Providers Care Cupola Operator Insulation Name Role Phone Shasta Sena MD Unavailable [phone] No, Physician Primary Care Provider [phone] Encounter Details Date Type Department Care Team [...] on file Legal Sex Male 10:05 AM PRINT SHOP CHIEF CLERK Gender Identity Male 05/30/2023 9:41 PM PRINT SHOP CHIEF CLERK Sexual Orientation Straight 05/30/2023 9: 41 PM PRINT SHOP CHIEF CLERK documented as of this encounter Plan of Treatment Not on file documented as of this encounter Procedures Procedure Name Priority Date/Time Associated Diagnosis Comments SCAN - RADIOLOGY/IMAGING 10/14/2023 documented in this encounter Results * SCAN - RADIOLOGY/IMAGING (10/14/2023) Anatomical Region Laterality Modality Other us Provider Scanning Final Result documented in this encounter Visit Diagnoses Not on filedocumented in this encounter Care Teams Cupola Operator Insulation Relationship Specialty Start Date End Date No, Physician PCP - General 05/06/23 Shasta Sena MD [address] [facility] [address] [place] [address] Medical Oncologist/Stem Crusher Medical Oncology 05/05/23 documented as of this encounter
--- OUTSIDE RECORDS SUMMARY | 2024-08-03 08:27 | XMS_ITS | Clinical Summary ---
Author Organization [facility] Address [address] [place] [address] Care Team Providers Care Cio Name Role Phone Shasta Sena MD Unavailable [phone] No, Physician Primary Care Provider [phone] Allergies No known active allergies Medications albuterol [...] a day 60 tablet 11 06/30/20 23 Active gabapentin (NEURONTIN) 600 mg tablet Take 1 tablet (600 mg total) by mouth 3 (three) times a day 90 tablet 11 06/30/20 23 Active morphine ER (MS CONTIN) 15 mg [...] 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 [place], [place], [place]. 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); Malignant neoplasm of conjunctiva, right (HCC); Uveitis, anterior 07/21/2024 8:30 AM FISHER SWORDFISH Office Visit [facility] Ophthalmology [address] [id number] Floresita Chavez MD Uveitis, anterior (Primary Dx); 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); Malignant neoplasm of conjunctiva, right (HCC) 07/19/2024 Telephone [facility] Ophthalmology [address] [place] [address] Saul Monteiro MD PhD Scheduling Appointments 05/03/2024 Orders Only [facility] Scanning, Provider from Last 3 Months Immunizations Name Administration Dates Next Due DTP 10/03/1993,1992,09/13/1991 ,09/14/1990 Hep B, Adolescent or Pediatric 08/26/1999,1998,02/07/1999 HiB 03/13/1992 MMR 09/13/1991,09/14/1990 OPV 10/03/1993,1992,09/13/1991 ,09/14/1990 Td, adsorbed 04/04/2004 Tdap 05/11/2021 Surgical History Surgery Date Site/Laterality Comments US GUIDED BIOPSY LYMPH NODE SUPERFICIAL LEFT 3 N/A US GUIDED BIOPSY LYMPH NODE SUPERFICIAL LEFT 4 N/A Medical History Medical History Date Comments [...] on file Legal Sex Male 10:05 AM FISHER SWORDFISH Gender Identity Male 05/30/2023 9:41 PM FISHER SWORDFISH Sexual Orientation Straight 05/30/2023 9: 41 PM FISHER SWORDFISH Obstetrics History Last Filed Vital Signs Vital Sign Reading Time Taken Comments Blood Pressure 144/81 06/30/2023 11:15 AM FISHER SWORDFISH Pulse 81 06/30/2023 11:15 AM FISHER SWORDFISH Temperature 36.6 ??C (97.8 ??F) 06/30/2023 11:[address] Respiratory Rate 18 06/30/2023 11:15 AM FISHER SWORDFISH Oxygen Saturation 96% 06/30/2023 11:15 AM FISHER SWORDFISH Inhaled Oxygen Concentration - - Weight 67.9 kg (149 lb 9.6 oz) 06/30/2023 11:15 AM FISHER SWORDFISH Height 167.6 cm (5' 6 ) 04/28/2023 [...] Priority Date/Time Associated Diagnosis Comments B-SCAN ULTRASOUND [id number] - OD - RIGHT EYE Routine 07/21/2024 8:30 AM FISHER SWORDFISH Uveitis, anterior SCAN - LABS 05/03/2024 SCAN - RADIOLOGY/IMAGING 05/03/2024 from Last 3 Months Results * B-SCAN ULTRASOUND 45629 - OD - RIGHT EYE (07/21/2024 8:30 AM FISHER SWORDFISH) Anatomical Region Laterality Modality Head Ultrasound Narrative 07/25/2024 11:37 AM FISHER SWORDFISH No vitreitis, RD, no obvious CME Floresita Chavez MD OPHTH ULTRASOUND Final Res ult * SCAN - RADIOLOGY/IMAGING (05/03/2024) Anatomical Region Laterality Modality Other us Provider Scanning Final Result * SCAN - LABS (05/03/2024) Provider Scanning Final Result from Last 3 Months Insurance [employer] [facility] Advance Directives For more information, please contact: [phone] * Full Code (Latest Code Status on File) Date Activated Date Inactivated Comments 04/28/2023 11:03 AM 05/05/2023 7:19 PM Care Teams Cio Relationship Specialty Start Date End Date No, Physician PCP - General 05/06/23 Shasta Sena MD [address] [facility] [address] [place] [address] Medical Oncologist/Call Centre Supervisor Medical Oncology 05/05/23
[2024-08-03 08:35] LABS: Hematocrit 42.5 % (40.0-54.0); Mean Corpuscular HGB Conc 32.9 g/dL (32-36); Mean Corpuscular Hemoglobin 26.9 pg (27.0-31.0); Mean Corpuscular Volume 81.7 fL (78.0-102.0); Platelet Count Result 262 K/mm3 (150-420); Red Cell Distribution Width 14.9 % (11.6-14.4); White Blood Count 5.3 K/mm3 (4.8-10.8)
[2024-08-03 08:58] LABS: Alanine Aminotransferase 28 U/L (16-63); Albumin Level 3.8 g/dL (3.4-5.0); Alkaline Phosphatase 108 U/L (46-116); Anion Gap 6 mmol/L (4-12); Aspartate Amino Transferase 21 U/L (15-37); Band Neutrophils Percent 0 % (0-6); Bilirubin,Total 0.5 mg/dL (0.00-1.00); Blood Urea Nitrogen 24 mg/dL (7-18); Calcium 8.9 mg/dL (8.5-10.1); Carbon Dioxide 30 mmol/L (21-32); Chloride 103 mmol/L (98-108); Eosinophils Absolute Manual 0.21 K/mm3 (0.02-0.50); Eosinophils Percent Manual 4 % (1-6); Estimated CRCL calculation 76 ml/min; Estimated Glomerular Filt Rate > 60; Glucose 115 mg/dL (70-99); Lymphocytes Percent Manual 19 % (18-44); Monocytes Absolute Manual 0.63 K/mm3 (0.1-0.90); Monocytes Percent Manual 12 % (3-9); Neutrophils Absolute Manual 3.44 K/mm3 (1.3-6.7); Neutrophils Percent Manual 65 % (46-73); Osmolality Calculated 293 mOsm/kg (285-295); Platelet Estimate Adequate (Adequate); Potassium 3.8 mmol/L (3.5-5.1); Sodium 139 mmol/L (136-145); Thyroid Stimulating Hormone 1.15 uIU/mL (0.36-3.74); Total Cells Counted 100; Total Protein 7.4 g/dL (6.4-8.2)
[2024-08-03] MEDS: ACETAMINOPHEN 325 MG TABLET 650 MG PO (09:07)
[2024-08-03] MEDS: HYDROCORTISONE SODIUM SUCCINATE 100 MG/2 ML VIAL IV PUSH (09:08)
[2024-08-03] MEDS: diphenhydrAMINE HCl INJ 50 MG/ML VIAL 25 MG IV PUSH (09:08)
[2024-08-03] MEDS: SODIUM CHLORIDE 0.9% IV 250 ML 10 ML IVPB (09:09)
[2024-08-03] MEDS: FAMOTIDINE 20 MG/ISO 50 ML 20 MG/50 ML BAG 150 MG IVPB (09:10)
[2024-08-03] MEDS: ONDANSETRON INJ 16 MG in SODIUM CHLORIDE 0.9% IV 50 ML 150 MG IVPB (09:30)
[2024-08-03] MEDS: BRENTUXIMAB VEDOTIN IVPB (10:04)
[2024-08-03] MEDS: SODIUM CHLORIDE 0.9% IVPB ×2 (10:04→10:37)
[2024-08-03] MEDS: NIVOLUMAB IVPB (10:37)
[2024-08-03] MEDS: HEPARIN SODIUM LOCK FLUSH 500 UNITS/5 ML SYRINGE IV PUSH (11:39)
[2024-08-03 11:42] VITALS: BP 121/69; PULSE 72; RESP 14; TEMP 36.6; O2SAT 97
--- NOTE | 2024-08-03 11:52 | PC.NURSE ---
Patient tolerated treatment well. SEE MAR/patient care notes. Safe exit of hospital to [facility] bus.
[2024-08-05 02:49] LABS: Cortisol Random 16.9 mcg/dL
== END 2024-08-03 08:17 | disposition home or self-care (01) ==
PROVIDERS: PCP Family Medicine; Visit Provider Internal Medicine Hematology & Oncology
DX: Z51.11 Encounter for antineoplastic chemotherapy (principal); D70.8 Other neutropenia; C81.90 Hodgkin lymphoma, unspecified, unspecified site
CPT/HCPCS: 36415; 36591; 80053; 82533; 84443; 85025; 96367; 96375; 96413; 96417; A9270; J1200; J1720; J2405; J7050; J9042; J9299

== ENCOUNTER 2024-08-31 07:54 | Outpatient (CLI) | payer OTHER, SELFPAY ==
[2024-08-31 08:00] VITALS: BP 123/67; PULSE 68; RESP 14; TEMP 36.5; O2SAT 97; BMI 27.2
[2024-08-31 08:22] LABS: Hematocrit 38.8 % (40.0-54.0); Hemoglobin 12.8 g/dL (14.0-18.0); Mean Corpuscular Hemoglobin 27.1 pg (27.0-31.0); Mean Platelet Volume 10.8 fl (8.7-11.0); Platelet Count Result 230 K/mm3 (150-420); Red Blood Count 4.73 M/mm3 (4.70-6.10); White Blood Count 4.7 K/mm3 (4.8-10.8)
[2024-08-31 08:37] LABS: Band Neutrophils Percent 0 % (0-6); Lymphocytes Absolute Manual 1.22 K/mm3 (1.1-4.5); Lymphocytes Percent Manual 26 % (18-44); Monocytes Absolute Manual 0.84 K/mm3 (0.1-0.90); Monocytes Percent Manual 18 % (3-9); Neutrophils Absolute Manual 2.63 K/mm3 (1.3-6.7); Neutrophils Percent Manual 56 % (46-73); Platelet Estimate Adequate (Adequate); Total Cells Counted 100
[2024-08-31 08:42] LABS: Alanine Aminotransferase 20 U/L (16-63); Albumin Level 3.2 g/dL (3.4-5.0); Alkaline Phosphatase 111 U/L (46-116); Anion Gap 9 mmol/L (4-12); Aspartate Amino Transferase 19 U/L (15-37); Bilirubin,Total 0.4 mg/dL (0.00-1.00); Blood Urea Nitrogen 11 mg/dL (7-18); Calcium 8.6 mg/dL (8.5-10.1); Carbon Dioxide 29 mmol/L (21-32); Chloride 105 mmol/L (98-108); Estimated CRCL calculation 90 ml/min; Estimated Glomerular Filt Rate > 60; Glucose 90 mg/dL (70-99); Osmolality Calculated 295 mOsm/kg (285-295); Potassium 3.7 mmol/L (3.5-5.1); Sodium 143 mmol/L (136-145); Thyroid Stimulating Hormone 0.25 uIU/mL (0.36-3.74); Total Protein 6.8 g/dL (6.4-8.2)
[2024-08-31] MEDS: diphenhydrAMINE HCl INJ 50 MG/ML VIAL 25 MG IV PUSH (08:42)
[2024-08-31] MEDS: ACETAMINOPHEN 325 MG TABLET 650 MG PO (08:45)
[2024-08-31] MEDS: HYDROCORTISONE SODIUM SUCCINATE 100 MG/2 ML VIAL IV PUSH (08:46)
[2024-08-31] MEDS: SODIUM CHLORIDE 0.9% IV 250 ML 10 ML IVPB (08:47)
[2024-08-31] MEDS: FAMOTIDINE 20 MG/ISO 50 ML 20 MG/50 ML BAG 150 MG IVPB (08:52)
[2024-08-31] MEDS: ONDANSETRON INJ 16 MG in SODIUM CHLORIDE 0.9% IV 50 ML 150 MG IVPB (09:10)
[2024-08-31] MEDS: BRENTUXIMAB VEDOTIN IVPB (09:53)
[2024-08-31] MEDS: SODIUM CHLORIDE 0.9% IVPB ×2 (09:53→10:26)
[2024-08-31] MEDS: NIVOLUMAB IVPB (10:26)
[2024-08-31] MEDS: HEPARIN SODIUM LOCK FLUSH 500 UNITS/5 ML SYRINGE IV PUSH (11:50)
[2024-08-31 11:55] VITALS: BP 112/74; PULSE 72; RESP 14; TEMP 36.4; O2SAT 96
--- NOTE | 2024-08-31 12:22 | PC.NURSE ---
Tolerated treatment well. SEE MAR/patient care notes.
[2024-09-02 02:00] LABS: Cortisol Random 2.8 mcg/dL
== END 2024-08-31 07:55 | disposition home or self-care (01) ==
PROVIDERS: PCP Family Medicine; Visit Provider Internal Medicine Hematology
DX: Z51.11 Encounter for antineoplastic chemotherapy (principal); D70.8 Other neutropenia; C81.70 Other Hodgkin lymphoma, unspecified site
CPT/HCPCS: 36415; 36591; 80053; 82533; 84443; 85025; 96367; 96375; 96413; 96417; A9270; J1200; J1720; J2405; J7050; J9042; J9299

== ENCOUNTER 2024-09-21 08:05 | Outpatient (CLI) | payer OTHER, SELFPAY ==
--- OUTSIDE RECORDS SUMMARY | 2024-09-21 08:11 | XMS_ITS | Encounter Summary ---
Author Organization [facility] Address [facility] [place] [address] Care Team Providers Care Extrusion Machine Operator Name Role Phone TrentonSoledad hammerlexis DENNISON Primary Care Provider [phone] Ambrocio Ashford MD Unavailable [phone] Reason for Visit * Reason Onset Date Comments Preprocedure Call 05/16/2024 Spoke with thais mcgill mother-I let her know that patient is scheduled for Pet scan and biopsy on 05/23 and to check in at 0700. Instructed patients mother for patient to be NPO at midnight. Patients mother states he is not diabetic. No further questions from patients mother. Encounter Details Date Type Department Care Team (Late st Contact Info) Description 05/16/2024 Telephone [facility] Interventional Radiology [address] [place] [address] Carin Hassan, RN Preprocedure Call (Spoke with patients mother-I [...] week 04/24/2023 How often do you attend yarsanism or mandaeism serv ices? Never 04/24/2023 Do you belong to any clubs o r organizations such as yarsanism groups, unions, fraternal or athletic groups, or [...] move on to questions 3-9 0 04/14/2022 [facility] [place] of Occupat ional Health - Occupational Stress [...] place to sleep or slept in a alf (including now)? No 04/24/2023 Sex and Gender Information Value Date Recorded Sex Assigned at Not on file Legal Sex Male 5:44 PM WEAPONS ELECTRICAL ENGINEERING OFFICER Gender Identity Male 04/14/2022 9:23 PM [...] Associated Problems Recent Progress Patient-Stated? Author Safety Patient/family will have appropriate support at home upon discharge Lifestyle No Rama Chahal instructor hairspring - family caregiver with be involved in [...] documented as of this encounter Care Teams Extrusion Machine Operator Relationship Specialty Start Date End Date Candido Hayes DO [address] [place] [address] PCP - General FAMILY PRACTICE 04/14/22 Ambrocio Ashford MD [address] [place] [address] INTERNAL MEDICINE 10/27/22 documented as of this encounter
--- OUTSIDE RECORDS SUMMARY | 2024-09-21 08:11 | XMS_ITS | Clinical Summary ---
Author Organization [facility] Address [address] [place] [address] Care Team Providers Care Thread Reeler Name Role Phone FeleciaSoledad kincaidlexis DENNISON Primary Care Provider [phone] Ambrocio Ashford MD Unavailable [phone] Allergies No known active allergies Medications No known medications Active Problems Problem Noted Date Diagnosed Date Leg weakness, bilateral 04/24/2023 Non Hodgkin's lymphoma ([facility]) 023 Septic shock ([facility]) 12/14/2022 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 Never 04/24/2023 Do you belong to any clubs o r organizations such as buddhist groups, unions, fraternal or athletic groups, or [...] move on to questions 3-9 0 04/14/2022 [facility] - Occupational Stress Questionnaire Answer Date [...] place to sleep or slept in a prison (including now)? No 04/24/2023 Sex and Gender Information Value Date Recorded Sex Assigned at Not on file Legal Sex Male 5:44 PM DATA INTEGRATION DEVELOPER Gender Identity Male 04/14/2022 9:23 PM CDT Sexual Orientation Straight 04/14/2022 9: 23 PM CDT Last Filed Vital Signs Vital Sign Reading Time Taken Comments Blood Pressure 117/86 05/23/2024 11:45 AM DATA INTEGRATION DEVELOPER Pulse 87 05/23/2024 11:45 AM DATA INTEGRATION DEVELOPER Temperature 36.4 C (97.5 F) 04/28/2023 8:23 AM CDT Respiratory Rate 16 05/23/2024 11:45 AM DATA INTEGRATION DEVELOPER Oxygen Saturation 99% 05/23/2024 11:45 AM DATA INTEGRATION DEVELOPER Inhaled Oxygen Concentration - - Weight 70.3 kg (155 lb) 05/23/2024 10:37 AM DATA INTEGRATION DEVELOPER Height 167.6 cm (5' 6 ) 05/23/2024 10:37 AM DATA INTEGRATION DEVELOPER Body Mass Index 25.02 05/23/2024 10:37 AM DATA INTEGRATION DEVELOPER Plan of Treatment Health Maintenance Due Date [...] home upon discharge Lifestyle No Rama Chahal ditch digger - family caregiver with be involved in care transitions and discharge planning Lifestyle No Catrina Tyler RN Additional Health Concerns Infection Onset Date Last Indicated MRSA Comment:04/14/22 nose (JJ) 04/16/2022 04/26/2023 Insurance Advance Directives * Full Code (Latest Code [...] 11:10 PM 04/06/2022 4:15 PM Care Teams Thread Reeler Relationship Specialty Start Date End Date Candido Hayes DO [address] [place] [address] PCP - General FAMILY PRACTICE 04/14/22 Ambrocio Ashford MD [address] [place] [address] INTERNAL MEDICINE 10/27/22
--- OUTSIDE RECORDS SUMMARY | 2024-09-21 08:11 | XMS_ITS | Encounter Summary ---
Author Organization [facility] Address [address] [place] [address] Care Team Providers Care Energy Efficiency Finance Manager Name Role Phone Jazmin Tyson Primary Care Provider [phone] Candido Hayes DO Primary Care Provider [phone] Ambrocio Ashford MD Unavailable [phone] Encounter Details Date Type Department Care Team (Late st Contact Info) Description 12/10/2018 Abstract SFL CONVERSION [address] [place] [address] , Generic Conversion, Social History Tobacco Use Types Packs/Day Years Used Date Smoking Tobacco: Never Assessed Sex and Gender Information Value Date Recorded Sex Assigned at Not on file Legal Sex Male 5:44 PM REMOTELY PILOTED VEHICLE CONTROLLER Gender Identity Male 04/14/2022 9:23 PM CDT [...] documented as of this encounter Care Teams Energy Efficiency Finance Manager Relationship Specialty Start Date End Date Jazmin Tyson FNP-BC [address] [place] [address] PCP - General NURSE PRACTITIONER 05/09/19 04/13/22 Candido Hayes DO [address] [place] [address] PCP - General FAMILY PRACTICE 04/14/22 Ambrocio Ashford MD [address] [place] [address] INTERNAL MEDICINE 10/27/22 documented as of this encounter
[2024-09-21] MEDS: COSYNTROPIN 0.25 MG/ML VIAL IV PUSH (08:31)
[2024-09-21 08:32] LABS: Basophils Absolute Auto 0.03 K/mm3 (0.00-0.10); Basophils Percent Auto 0.6 % (0.0-1.0); Eosinophils Absolute Auto 0.18 K/mm3 (0.02-0.50); Eosinophils Percent Auto 3.5 % (1.0-6.0); Hematocrit 38.2 % (40.0-54.0); Hemoglobin 12.7 g/dL (14.0-18.0); Immature Granulocyte Absolute 0.01 K/mm3 (0.00-0.00); Immature Granulocyte Percent A 0.2 % (0.0-0.0); Lymphocytes Absolute Auto 1.16 K/mm3 (1.10-4.50); Lymphocytes Percent Auto 22.6 % (18.0-42.0); Mean Corpuscular HGB Conc 33.2 g/dL (32-36); Mean Corpuscular Hemoglobin 27.4 pg (27.0-31.0); Mean Corpuscular Volume 82.3 fL (78.0-102.0); Monocytes Absolute Auto 0.69 K/mm3 (0.10-0.90); Monocytes Percent Auto 13.5 % (2.0-11.0); Neutrophils Absolute Auto 3.06 K/mm3 (1.70-7.20); Neutrophils Percent Auto 59.6 % (50.0-70.0); Platelet Count Result 222 K/mm3 (150-420); Red Blood Count 4.64 M/mm3 (4.70-6.10); Red Cell Distribution Width 14.3 % (11.6-14.4); White Blood Count 5.1 K/mm3 (4.8-10.8)
[2024-09-21 08:36] VITALS: BMI 27.1
[2024-09-21 08:43] VITALS: BP 113/69; PULSE 78; RESP 14; TEMP 36.4; O2SAT 98
[2024-09-21 08:46] LABS: Alanine Aminotransferase 24 U/L (16-63); Albumin Level 3.8 g/dL (3.4-5.0); Alkaline Phosphatase 107 U/L (46-116); Aspartate Amino Transferase 18 U/L (15-37); Bilirubin,Total 0.3 mg/dL (0.00-1.00); Blood Urea Nitrogen 13 mg/dL (7-18); Calcium 8.9 mg/dL (8.5-10.1); Carbon Dioxide 31 mmol/L (21-32); Estimated CRCL calculation 79 ml/min; Estimated Glomerular Filt Rate > 60; Glucose 118 mg/dL (70-99); Total Protein 7.4 g/dL (6.4-8.2)
[2024-09-21 08:55] LABS: Anion Gap 6 mmol/L (4-12); Chloride 105 mmol/L (98-108); Osmolality Calculated 295 mOsm/kg (285-295); Potassium 3.5 mmol/L (3.5-5.1); Sodium 142 mmol/L (136-145)
[2024-09-21 09:26] LABS: Folic Acid 11.5 ng/mL (8.6->20); Vitamin B12 350 pg/mL (193-986)
[2024-09-21] MEDS: SODIUM CHLORIDE 0.9% IV 250 ML 10 ML IVPB (09:30)
[2024-09-21] MEDS: diphenhydrAMINE HCl INJ 50 MG/ML VIAL 25 MG IV PUSH (09:30)
[2024-09-21 09:32] LABS: HIV 1 P24 AG Negative (Negative); HIV 1/2 AB Negative (Negative); Thyroid Stimulating Hormone Reflex 1.88 u/IU/mL (0.36-3.74)
[2024-09-21] MEDS: ACETAMINOPHEN 325 MG TABLET 650 MG PO (09:43)
[2024-09-21] MEDS: HYDROCORTISONE SODIUM SUCCINATE 100 MG/2 ML VIAL IV PUSH (09:45)
[2024-09-21] MEDS: FAMOTIDINE 20 MG/ISO 50 ML 20 MG/50 ML BAG 200 MG (09:47)
[2024-09-21] MEDS: ONDANSETRON INJ 16 MG in SODIUM CHLORIDE 0.9% IV 50 ML 150 MG IVPB (10:07)
[2024-09-21] MEDS: BRENTUXIMAB VEDOTIN IVPB (10:29)
[2024-09-21] MEDS: SODIUM CHLORIDE 0.9% IVPB ×2 (10:29→10:59)
[2024-09-21] MEDS: NIVOLUMAB IVPB (10:59)
[2024-09-21] MEDS: HEPARIN SODIUM LOCK FLUSH 500 UNITS/5 ML SYRINGE IV PUSH (12:07)
[2024-09-21 12:12] VITALS: BP 112/70; PULSE 78; RESP 14; TEMP 36.4; O2SAT 97
--- NOTE | 2024-09-21 12:24 | PC.NURSE ---
Patient tolerated treatment well. SEE patient care notes and MAR.
[2024-09-22 22:18] LABS: Immunoglobulin G 1157 mg/dL (600-1640)
[2024-09-23 02:19] LABS: Total Triiodothyronine (T3) 114 ng/dL (76-181)
[2024-09-25 12:13] LABS: Angiotensin Converting Enzyme 40 U/L (9-67)
[2024-09-25 12:23] LABS: NIL 0.03 IU/mL; Quantiferon TB Plus, 1T NEGATIVE (NEGATIVE); TB2-NIL 0.01 IU/mL
[2024-09-26 21:19] LABS: Treponema pallidum Ab FTA ABS NON-REACTIVE
== END 2024-09-21 08:06 | disposition home or self-care (01) ==
PROVIDERS: PCP Family Medicine; Visit Provider Internal Medicine Hematology
DX: Z51.11 Encounter for antineoplastic chemotherapy (principal); C81.90 Hodgkin lymphoma, unspecified, unspecified site
CPT/HCPCS: 36415; 36591; 80053; 82164; 82607; 82746; 82784; 84443; 84480; 85025; 86480; 86780; 87806; 96367; 96375; 96413; 96417; A9270; J0834; J1200; J1720; J2405; J7050; J9042; J9299

== ENCOUNTER 2024-10-12 07:24 | Outpatient (CLI) | payer OTHER, SELFPAY ==
--- OUTSIDE RECORDS SUMMARY | 2024-10-12 07:28 | XMS_ITS | Encounter Summary ---
Author Organization [facility] Address [address] [place] [address] Phone Care Team Providers Care Production Team Leader Name Role Phone Shasta Sena MD Unavailable [phone] No, Physician Primary Care Provider [phone] Candido Hayes DO Primary Care Provider Encounter Details Date Type [...] on file Legal Sex Male 10:05 AM HOT WATER HEATER INSTALLER Gender Identity Male 05/30/2023 9:41 PM HOT WATER HEATER INSTALLER Sexual Orientation Straight 05/30/2023 9: 41 PM HOT WATER HEATER INSTALLER documented as of this encounter Plan of Treatment Not on file documented as of this encounter Procedures Procedure Name Priority Date/Time Associated Diagnosis Comments SCAN - RADIOLOGY/IMAGING 10/14/2023 documented in this encounter Results * SCAN - RADIOLOGY/IMAGING (10/14/2023) Anatomical Region Laterality Modality Other us Provider Scanning Final Result documented in this encounter Visit Diagnoses Not on filedocumented in this encounter Care Teams Production Team Leader Relationship Specialty Start Date End Date No, Physician PCP - General 05/06/23 08/27/24 Candido Hayes DO [address] [place] [address] PCP - General Family Medicine 08/28/24 Shasta Sena MD [address] [facility] [address] [place] [address] Medical Oncologist/Director Report Medical Oncology 05/05/23 documented as of this encounter
--- OUTSIDE RECORDS SUMMARY | 2024-10-12 07:28 | XMS_ITS | Clinical Summary ---
Author Organization [facility] Address [address] [place] [address] Care Team Providers Care Technical Coordinator Name Role Phone TrentonCandido hammer Primary Care Provider [phone] Ambrocio Ashford MD Unavailable [phone] Allergies No known active allergies Medications No known medications Active Problems Problem Noted Date Diagnosed Date Leg weakness, bilateral 04/24/2023 Non Hodgkin's lymphoma ([facility]) 023 Septic shock (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 Never 04/24/2023 Do you belong to any clubs o r organizations such as anabaptist groups, unions, fraternal or athletic groups, or [...] move on to questions 3-9 0 04/14/2022 [facility] Occupat ional Health - Occupational Stress [...] place to sleep or slept in a assisted (including now)? No 04/24/2023 Sex and Gender Information Value Date Recorded Sex Assigned at Not on file Legal Sex Male 5:44 PM AIR QUALITY SPECIALIST Gender Identity Male 04/14/2022 9:23 PM CDT Sexual Orientation Straight 04/14/2022 9: 23 PM CDT Last Filed Vital Signs Vital Sign Reading Time Taken Comments Blood Pressure 117/86 05/23/2024 11:45 AM AIR QUALITY SPECIALIST Pulse 87 05/23/2024 11:45 AM AIR QUALITY SPECIALIST Temperature 36.4 C (97.5 F) 04/28/2023 8:23 AM CDT Respiratory Rate 16 05/23/2024 11:45 AM AIR QUALITY SPECIALIST Oxygen Saturation 99% 05/23/2024 11:45 AM AIR QUALITY SPECIALIST Inhaled Oxygen Concentration - - Weight 70.3 kg (155 lb) 05/23/2024 10:37 AM AIR QUALITY SPECIALIST Height 167.6 cm (5' 6 ) 05/23/2024 10:37 AM AIR QUALITY SPECIALIST Body Mass Index 25.02 05/23/2024 10:37 AM AIR QUALITY SPECIALIST Plan of Treatment Health Maintenance Due Date Last Done Comments Annual Physical 02/07/1992 COVID-19 Vaccine (#1) 1994 Pneumococcal Vaccine: Pediatrics (0 to 5 Years) and At-Risk Patients (6 to 64 Years) (1 of 2 - PCV) 1995 Hepatitis C 2007 DTaP, Tdap and Td Vaccines (3 - [...] home upon discharge Lifestyle No Rama Chahal, digital press operator - family caregiver with be involved in care transitions and discharge planning Lifestyle No Catrina Tyler, zoning technician Procedure Name Priority Date/Time Associated Diagnosis Comments PET EYE TO THIGH [id number] Routine 09/28/2024 11:57 AM CDT Hodgkin's disease ([facility]) POCT GLUCOSE - STEARNS DOCKED DEVICE Routine 09/28/2024 10:25 AM CDT from Last 3 Months Results * PET EYE TO THIGH [id number] (09/28/2024 11:57 AM CDT) Anatomical Region Laterality Modality Body Positron Emissio n Tomography (PET), Positron Emission Tomography (PET) 09/29/2024 8:24 AM CDT Impressions 09/29/2024 11:54 AM CDT IMPRESSION: 1. Increasing FDG uptake associated with a left axillary lymph node (5PS = 5). A mildly hypermetabolic right level IV cervical lymph node is noted as well. The evaluation of these particular lymph nodes on the prior exam was slightly degraded due to patient motion during the PET acquisition and change in positioning of the upper extremities. These findings would indicate progressive disease however, given that the patient is receiving immunotherapy, pseudoprogression cannot be excluded. If there is clinical concern this could reflect pseudoprogression as well, a follow-up FDG PET/CT in 8 weeks could be obtained. 2. Otherwise, marked positive response to therapy with resolution of hypermetabolic adenopathy throughout the chest, abdomen, and pelvis elsewhere. Interval resolution of splenic, osseous, and pulmonary sites of lymphoma involvement as well. 3. Mild FDG uptake along the anterior right globe, likely corresponding to the patient's anterior uveitis or corneal lesion (suspected squamous cell) per recent ophthalmology note in July 2024. 4. Multiple sclerotic osseous lesions without abnormal FDG uptake likely reflect sites of treated disease. The attending radiologist has reviewed the image(s) and agrees with the content of this report. Ordered By: DHIRAJ LOPEZ Interpreted By: Basil Harris MD, 09/29/2024 8:24 AM Narrative 09/29/2024 11:54 AM CDT [address] [address] EXAMINATION: TUMOR FDG-PET/CT IMAGING DATE OF STUDY: 09/28/2024 11:33 AM SCANNER: [facility] RADIOPHARMACEUTICAL: 10.0 mCi F-18 Fluorodeoxyglucose (FDG) i.v. Injection site: Right antecubital fossa HISTORY: Hodgkin's lymphoma diagnosed 02/10/2022, previously treated with ABVD x 2, and BEACOPP x 3, after which he was lost to follow-up and returned with diffuse metastatic disease. Then treated with Pembrolizomab-GVD with good response. Diagnosed with progression in May 2024. Most recently treated with Brentuximab and Nivolumab and has had 3 cycles since May, according to ophthalmology note in July 2024. The study is requested for treatment monitoring during therapy. Subsequent treatment strategy. TECHNIQUE: The patient's fasting blood glucose level, measured by glucometer before injection of FDG, was 83 mg/dL. MD-Gastroview was not given orally. After intravenous administration of FDG, noncontrast CT images were obtained for attenuation correction and for fusion with emission PET images to allow for anatomical localization of PET findings. Emission PET images were then obtained. The study was interpreted on the [employer] workstation. The mean liver SUV (reported for water quality technician purposes) is 1.7. The total scanned area was skull base to the proximal thighs. Images of the body were obtained starting 59 minutes after injection of tracer. COMPARISON: PET/CT of 05/23/2024. MRI thoracic and lumbar spine 04/26/2023. CT chest abdomen pelvis 04/26/2023. FINDINGS: The most FDG-avid lesion is a left axillary lymph node, has a maximum SUV of 13.1, and approximate axial dimensions of 1.7 x 2.3 cm. The uptake in this lesion is: markedly greater than liver (5PS= 5). This lesion is slightly decreased in size from 05/23/2024 but demonstrate marked increased SUV from 6.3 previously. Evaluation of this lesion on the previous PET appears slightly degraded due to patient motion during the PET acquisition with change in positioning of the upper extremities during the acquisition as well. No left-sided hypermetabolic cervical lymphadenopathy is identified. There is a small right level IV cervical lymph node with maximum SUV 3.0 measuring approximately 0.9 x 1 cm in axial dimensions, not significantly changed from the prior exam when it measured approximately 1.1 x 0.9 cm. Previously, this was not well evaluated metabolically due to significant patient motion between the PET and CT acquisitions. The uptake of this lesion is currently greater than the liver (5PS = 4). No hypermetabolic lymphadenopathy elsewhere within the body. The previously seen right axillary lymphadenopathy has resolved. The previously seen hypermetabolic subdiaphragmatic lymphadenopathy has resolved. The previously seen hypermetabolic pulmonary nodules are resolved. Resolution of abnormal foci of uptake in the spleen as well as abnormal FDG uptake associated with osseous metastases now with FDG uptake similar to blood pool. Multiple sclerotic metastases without abnormal FDG uptake likely reflect treated metastases. There is mildly increased uptake along the anterior right globe with max SUV of 4.4, which may correspond to the patient's anterior uveitis or corneal lesion (suspected squamous cell), as noted in the patient's ophthalmology note dated 07/28/2024. Maxillary sinus mucosal thickening with increased FDG uptake is likely infectious/inflammatory related to sinusitis. Mild inflammatory FDG uptake associated with a right inguinal hernia repair. Additional CT findings: A right-sided chest port is present with a tunneled central venous catheter terminating within the right atrium. Mild bronchial wall thickening. There is mild subsegmental predominantly dependent atelectasis. There are pathologic fractures involving C4, L4 and T11. Minimal multilevel spondylosis. 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 Procedure Note Alexandria Christiansen MD - 09/29/2024 [place] [address] EXAMINATION: TUMOR FDG-PET/CT IMAGING DATE OF STUDY: 09/28/2024 11:33 AM SCANNER: [facility] RADIOPHARMACEUTICAL: 10.0 mCi F-18 Fluorodeoxyglucose (FDG) i.v.Injection site: Right antecubital fossa HISTORY: Hodgkin's lymphoma diagnosed 02/10/2022, previously treated withABVD x 2, and BEACOPP x 3, after which he was lost to follow-up andreturned with diffuse metastatic disease. Then treated withPembrolizomab-GVD with good response. Diagnosed with progression 2023. Most recently treated with Brentuximab and Nivolumab andhas had 3 cycles since May, according to ophthalmology note inJanuary 2024. The study is requested for treatment monitoring during therapy. Subsequent treatment strategy. TECHNIQUE: The patient's fasting blood glucose level, measured byglucometer before injection of FDG, was 83 mg/dL. Roshan was notgiven orally. After intravenous administration of FDG, noncontrast CTimages were obtained for attenuation correction and for fusion withemission PET images to allow for anatomical localization of PET findings.Emission PET images were then obtained. [facility]. The mean liver SUV (reported for quality controlpurposes) is 1.7. The total scanned area was skull base to the proximal thighs. Images ofthe body were obtained starting 59 minutes after injection of tracer. COMPARISON: PET/CT of 05/23/2024. MRI thoracic and lumbar spine04/26/2023. CT chest abdomen pelvis 04/26/2023. FINDINGS: The most FDG-avid lesion is a left axillary lymph node, has a maximum SUVof 13.1, and approximate axial dimensions of 1.7 x 2.3 cm. The uptake inthis lesion is: markedly greater than liver (5PS= 5). This lesion isslightly decreased in size from 05/23/2024 but demonstrate markedincreased SUV from 6.3 previously. Evaluation of this lesion on theprevious PET appears slightly degraded due to patient motion during thePET acquisition with change in positioning of the upper extremities duringthe acquisition as well. No left-sided hypermetabolic cervical lymphadenopathy is identified. Thereis a small right level IV cervical lymph node with maximum SUV 3.0measuring approximately 0.9 x 1 cm in axial dimensions, not significantlychanged from the prior exam when it measured approximately 1.1 x 0.9 cm.Previously, this was not well evaluated metabolically due to significantpatient motion between the PET and CT acquisitions. The uptake of thislesion is currently greater than the liver (5PS = 4). No hypermetabolic lymphadenopathy elsewhere within the body. Thepreviously seen right axillary lymphadenopathy has resolved. Thepreviously seen hypermetabolic subdiaphragmatic lymphadenopathy hasresolved. The previously seen hypermetabolic pulmonary nodules areresolved. Resolution of abnormal foci of uptake in the spleen as well asabnormal FDG uptake associated with osseous metastases now with FDG uptakesimilar to blood pool. Multiple sclerotic metastases without abnormal FDGuptake likely reflect treated metastases. There is mildly increased uptake along the anterior right globe with maxSUV of 4.4, which may correspond to the patient's anterior uveitis orcorneal lesion (suspected squamous cell), as noted in the patient'sophthalmology note dated 07/28/2024. Maxillary sinus mucosal thickening with increased FDG uptake is likelyinfectious/inflammatory related to sinusitis. Mild inflammatory FDG uptake associated with a right inguinal herniarepair. Additional CT findings: A right-sided chest port is present with atunneled central venous catheter terminating within the right atrium. Mildbronchial wall thickening. There is mild subsegmental predominantlydependent atelectasis. There are pathologic fractures involving C4, L4 andT11. Minimal multilevel spondylosis. Chronic nonunited left L3 transverseprocess fracture. IMPRESSION: 1. Increasing FDG uptake associated with a left axillary lymph node (5PS =5). A mildly hypermetabolic right level IV cervical lymph node is noted aswell. The evaluation of these particular lymph nodes on the prior exam wasslightly degraded due to patient motion during the PET acquisition andchange in positioning of the upper extremities. These findings wouldindicate progressive disease however, given that the patient is receivingimmunotherapy, pseudoprogression cannot be excluded. If there is clinicalconcern this could reflect pseudoprogression as well, a follow-up FDGPET/CT in 8 weeks could be obtained. 2. Otherwise, marked positive response to therapy with resolution ofhypermetabolic adenopathy throughout the chest, abdomen, and pelviselsewhere. Interval resolution of splenic, osseous, and pulmonary sites oflymphoma involvement as well. 3. Mild FDG uptake along the anterior right globe, likely corresponding tothe patient's anterior uveitis or corneal lesion (suspected squamous cell)per recent ophthalmology note in July 2024. 4. Multiple sclerotic osseous lesions without abnormal FDG uptake likelyreflect sites of treated disease. The attending radiologist has reviewed the image(s) and agrees with thecontent of this report. Ordered By: DHIRAJ LOPEZ Interpreted By: Basil Harris MD, 09/29/2024 8:24 AM Dhiraj Lopez MD PET Final Result * POCT glucose (09/28/2024 10:25 AM CDT) GLUCOSE POC 83 70 - 109 09/28/2024 10:[address] [facility] 09/28/2024 10:2 5 AM CDT Dhiraj Lopez MD POCT ORDERABLES - DEV ICE Final Result [facility] [address] [place] [address], [place] [phone] [id number] from Last 3 Months Additional Health Concerns [...] 11:10 PM 04/06/2022 4:15 PM Care Teams Technical Coordinator Relationship Specialty Start Date End Date Candido Hayes DO [address] [place] [address] PCP - General FAMILY PRACTICE 04/14/22 Ambrocio Ashford MD [address] [place] [address] INTERNAL MEDICINE 10/27/22
--- OUTSIDE RECORDS SUMMARY | 2024-10-12 07:28 | XMS_ITS ---
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 Plan for 5FU but patient having difficulty accessing the medication. No evidence of iris or ciliary body mass . 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 Plan for systemic work up per chart review but not yet performed. Prevention of chemotherapy-induced neutropenia 1 Lesion of [...] 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 Ashford, [place], [place]. S/p ABVD (2 cycles) with progression [...] - Pharmacologic pain regimen described elsewhere Current Treatment and Therapy Plans Adult BMT/ONC - Blood and/or Platelet [...] sodium chloride 0.9% 50 mL IVPB Past Treatment and Therapy Plans No past plan information found. Lifetime Dose Tracking * Chemical Lifetime Dose Automatic Entry Manual Entr y doxorubicin HCl pegylated liposomal 79.996 mg/m2 (148.4 mg) 79.996 mg/m2 (148.4 mg) 0 mg/m2 (0 mg) doxorubicin isotoxic equivalent (Please manually verify calculation) 79.996 mg/m2 (148.4 mg) 79.996 mg/m2 (148.4 mg) 0 mg/m2 (0 mg)
--- OUTSIDE RECORDS SUMMARY | 2024-10-12 07:28 | XMS_ITS | Clinical Summary ---
Author Organization [facility] Address [address] [place] [address] Care Team Providers Care Proof Load Mechanic Name Role Phone Shasta Sena MD Unavailable [phone] Candido Hayes DO Primary Care Provider Allergies No known active allergies Medications albuterol [...] for pain 60 tablet 06/30/20 23 Active prednisoLONE acetate (PRED FORTE) 1 % ophthalmic suspension Administer 1 drop into the right eye 4 (four) times a day Please shake bottle very well prior to each use. 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 Ashford, [place], [place]. 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); Uveitis, anterior 09/15/2024 Telephone [facility] Ophthalmology [address] [place] [address] Haley Gonzalez MD PhD Medication 08/28/2024 Telephone [facility] Ophthalmology [address] [place] [address] Haley Gonzalez MD PhD Med Refill; r/s appt 08/22/2024 Telephone [facility] Ophthalmology [address] [place] [phone] Sharmin Lui BDiana 08/08/2024 Telephone [facility] Ophthalmology [address] [place] [address] Kimberley Vasquez PT is incarcerated 08/03/2024 Telephone [facility] Ophthalmology [address] [place] [address] Outpatient Health [address] [place] [phone] Mora Robledo 08/01/2024 Telephone [facility] Ophthalmology [address] [place] [phone] Lexie, Physician 07/28/2024 4:00 PM WEAVING TEACHER Office Visit [facility] Ophthalmology [address] [phone] Floresita Chavez MD 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); Malignant neoplasm of conjunctiva, right (HCC); Uveitis, anterior 07/21/2024 8:30 AM WEAVING TEACHER Office Visit [facility] Ophthalmology [address] [place] [address] Floresita Chaevz MD Uveitis, anterior (Primary Dx); 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); Malignant neoplasm of conjunctiva, right (HCC) 07/19/2024 Telephone [facility] Ophthalmology [address] [place] [address] Saul Monteiro MD PhD Scheduling Appointments from Last 3 Months Immunizations Immunization Administration Dates Next Due DTP 10/03/1993,1992,09/13/1991 ,09/14/1990 [...] on file Legal Sex Male 10:05 AM WEAVING TEACHER Gender Identity Male 05/30/2023 9:41 PM WEAVING TEACHER Sexual Orientation Straight 05/30/2023 9: 41 PM WEAVING TEACHER Obstetrics History Last Filed Vital Signs Vital Sign Reading Time Taken Comments Blood Pressure 144/81 06/30/2023 11:15 AM WEAVING TEACHER Pulse 81 06/30/2023 11:15 AM WEAVING TEACHER Temperature 36.6 C (97.8 F) 06/30/2023 11:15 AM WEAVING TEACHER Respiratory Rate 18 06/30/2023 11:15 AM WEAVING TEACHER Oxygen Saturation 96% 06/30/2023 11:15 AM WEAVING TEACHER Inhaled Oxygen Concentration - - Weight 67.9 kg (149 lb 9.6 oz) 06/30/2023 11:15 AM WEAVING TEACHER Height 167.6 cm (5' 6 ) 04/28/2023 11:20 AM CDT Body Mass Index 24.15 04/28/2023 11:20 AM CDT Plan of Treatment Health Maintenance Due Date Last Done Comments Depression Screening 1989 Hepatitis C Screening 1989 Varicella Vaccines (1 of 2 - 13+ 2-dose series) 2002 Regular Well Visit/Exam 18-64 2007 Pneumococcal vaccine <65 (1 of 2 - PCV) 02/07/2008 Zoster Vaccine (1 of 2) 02/07/2008 Influenza Vaccine (Season Ended) 2025 DTaP/Tdap/Td Vaccine (6 - Td or Tdap) 05/11/2031 05/11/2021, 04/04/2004, 10/03/1993, Additional history exists Hepatitis B Screening Completed 08/26/1999 , 03/07/1999, 02/07/1999 HPV Vaccines Aged Out No longer eligi ble based on patient's age to complete this topic Procedures Procedure Name Priority Date/Time Associated Diagnosis Comments B-SCAN ULTRASOUND 99572 - OD - RIGHT EYE Routine 10/10/2024 10:30 PM CDT Malignant neoplasm of conjunctiva, 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) UBM IMMERSION 61213 - OD - RIGHT EYE Routine 10/10/2024 10:30 PM CDT Malignant neoplasm of conjunctiva, 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) FUNDUS PHOTOS/FAF - OU - BOTH EYES Routine 10/10/2024 1:30 PM CDT Uveitis, anterior B-SCAN ULTRASOUND 89413 - OD - RIGHT EYE Routine 07/21/2024 8:30 AM WEAVING TEACHER Uveitis, anterior from Last 3 Months Results * B-SCAN ULTRASOUND 57012 - OD - RIGHT EYE (10/10/2024 10:30 PM CDT) Anatomical Region Laterality Modality Head Ultrasound Narrative 10/10/2024 10:30 PM CDT Vitreous debris right eye (OD) when compared to left eye (OS), attached 360 , no choroidal mass lesions Result [facility] Haley Gonzalez MD PhD OPH ULTRASOUND Fin al Result * UBM Immersion 43379 - OD - Right Eye (10/10/2024 10:30 PM CDT) Clock Hour 6 O'Clock CONTINUUM Anatomical Region Laterality Modality Head Ultrasound Narrative 10/10/2024 10:30 PM CDT 6 O'Clock. Notes No iris or ciliary body mass lesions Result [facility] Haley Gonzalez MD PhD OPH ULTRASOUND Fin al Result * Fundus Photos/FAF - OU - Both Eyes (10/10/2024 1:30 PM CDT) Anatomical Region Laterality Modality Head Fundus Photograp hy Narrative 10/11/2024 2:54 PM CDT Right eye (OD): limited view 2/2 anterior segment Left eye (OS): + vessel tortuosity , small CR scar Result [facility] Haley Gonzalez MD PhD OPHTH PHOTOGRAPHY Fi nal Result * B-SCAN ULTRASOUND 23058 - OD - RIGHT EYE (07/21/2024 8:30 AM WEAVING TEACHER) Anatomical Region Laterality Modality Head Ultrasound Narrative 07/25/2024 11:37 AM WEAVING TEACHER No vitreitis, RD, no obvious CME Result [facility] Floresita Chavez MD OPH ULTRASOUND Final Res ult from Last 3 Months [facility] Direct[facility] For more information, please contact: [phone] * Full Code (Latest Code Status on File) Date Activated Date Inactivated Comments 04/28/2023 11:03 AM 05/05/2023 7:19 PM Care Teams Proof Load Mechanic Relationship Specialty Start Date End Date Candido Hayes DO [address] [place] [address] PCP - General Family Medicine 08/28/24 Shasta Sena MD [address] [facility] [address] [place] [id number] Medical Oncologist/Yoga Instructor Medical Oncology 05/05/23
--- OUTSIDE RECORDS SUMMARY | 2024-10-12 07:28 | XMS_ITS | Encounter Summary ---
Author Organization [facility] Address [facility] [place] [address] Care Team Providers Care Staffing Account Manager Name Role Phone TrentonSoledad hammerlexis DENNISON Primary Care Provider [phone] Ambrocio Ashford MD Unavailable [phone] Reason for Visit * Reason Onset [...] (Late st Contact Info) Description 05/16/[address] [facility] Interventional Radiology [address] [place] [address] Carin Hassan, RN Preprocedure Call [...] week 04/24/2023 How often do you attend latter-day or bahai serv ices? Never 04/24/2023 Do you belong to any clubs o r organizations such as latter-day groups, unions, fraternal or athletic groups, or [...] move on to questions 3-9 0 04/14/2022 [facility] Harbinger of Occupat ional Health - Occupational Stress [...] place to sleep or slept in a detention (including now)? 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
--- OUTSIDE RECORDS SUMMARY | 2024-10-12 07:28 | XMS_ITS | Encounter Summary ---
Author Organization [facility] Address [address] [place] [address] Phone Care Team Providers Care Homicide Investigator Name Role Phone Shasta Sena MD Unavailable [phone] Candido Hayes DO Primary Care Provider Reason for Visit * Reason Onset Date Comments Med Refill 10/11/2024 Encounter Details Date Type Department Care Team (Late st Contact Info) Description 10/11/2024 Telephone [facility] Ophthalmology [address] [place], [place] [phone] Haley Gonzalez MD PhD [address] [id number] Med Refill Social History Tobacco Use Types Packs/Day Years [...] on file Legal Sex Male 10:05 AM CHRONIC MANAGER Gender Identity Male 05/30/2023 9:41 PM CHRONIC MANAGER Sexual Orientation Straight 05/30/2023 9: 41 PM CHRONIC MANAGER documented as of this encounter Miscellaneous Notes * Telephone Encounter - Zepeda, Fatmata - 10/11/2024 4:08 PM CDT Medication Refill Medication(s): Chemo drop Preferred Pharmacy: [facility] Patient's Callback #: [phone] Additional Comments: Pt called stating their insurance is requesting provider sign off on medication twice due to the quantity. Pt states this should be for their cancer/ glaucoma drops. documented in this encounter Plan of Treatment Not on file documented as of this encounter Visit Diagnoses Not on filedocumented in this encounter Care Teams Homicide Investigator Relationship Specialty Start Date End Date Candido Hayes DO [facility] [place] [address] PCP - General Family Medicine 08/28/24 Shasta Sena MD [address] [facility] [address] [place] [address] Medical Oncologist/Relocation Coordinator Medical Oncology 05/05/23 documented as of this encounter
--- OUTSIDE RECORDS SUMMARY | 2024-10-12 07:28 | XMS_ITS | Referral Summary ---
Author Organization [facility] Address [address] [place] [address] Care Team Providers Care Rolfer Name Role Phone Shasta Sena MD Unavailable [phone] Candido Hayes DO Primary Care Provider Encounters Date Type Department Care Team Description 10/11/2024 Telephone [facility] Ophthalmology [facility] [place] [address] Haley Gonzalez MD PhD Med Refill 10/10/2024 1:30 PM CDT Office Visit [facility] Ophthalmology [address] [place] [phone] Haley Gonzalez MD PhD Malignant neoplasm of conjunctiva, right (HCC) (Primary Dx); 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 08/08/2024 Telephone [facility] Ophthalmology [address] [place] [address] Kimberley Vasquez PT is incarcerated 08/03/2024 Telephone [facility] Ophthalmology [address] [facility] Outpatient Health [address] [place] [phone] Mora Robledo 08/01/2024 Telephone [facility] Ophthalmology [facility] Outpatient Health [address] [place] [phone] No, Physician 07/28/2024 4:00 PM MANAGER NIGHT Office Visit [facility] Ophthalmology [address] [place] [phone] Floresita Chavez MD 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); Malignant neoplasm of conjunctiva, right (HCC); Uveitis, anterior 07/21/2024 8:30 AM MANAGER NIGHT Office Visit [facility] Ophthalmology [address] [place] [phone] Floresita Chavez MD Uveitis, anterior (Primary Dx); 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 Ashford, [place], [place]. S/p ABVD (2 cycles) with progression [...] surgery but would like Neuro evaluation - ARYA, JAVIER, ANCA, ESR, CRP, RF/CCP, RPR, HIV, Crypto Ag - TSPOT - LP reasonable, deferred to onc whether masses/dural enhancement are related to HL - Also consider Rad Onc consult for pain control - Routine neuro checks - Pharmacologic pain regimen described elsewhere Immunizations Immunization Administration Dates Next Due DTP [...] on file Legal Sex Male 10:05 AM MANAGER NIGHT Gender Identity Male 05/30/2023 9:41 PM MANAGER NIGHT Sexual Orientation Straight 05/30/2023 9: 41 PM MANAGER NIGHT Last Filed Vital Signs Vital Sign Reading Time Taken Comments Blood Pressure 144/81 06/30/2023 11:15 AM MANAGER NIGHT Pulse 81 06/30/2023 11:15 AM MANAGER NIGHT Temperature 36.6 C (97.8 F) 06/30/2023 11:15 AM MANAGER NIGHT Respiratory Rate 18 06/30/2023 11:15 AM MANAGER NIGHT Oxygen Saturation 96% 06/30/2023 11:15 AM MANAGER NIGHT Inhaled Oxygen Concentration - - Weight 67.9 kg (149 lb 9.6 oz) 06/30/2023 11:15 AM MANAGER NIGHT Height 167.6 cm (5' 6 ) 04/28/2023 11:20 AM CDT Body Mass Index 24.15 04/28/2023 11:20 AM CDT Plan of Treatment Not on file Procedures Procedure Name Priority Date/Time Associated Diagnosis Comments B-SCAN ULTRASOUND 63748 - OD - RIGHT EYE Routine 10/10/2024 10:30 PM CDT Malignant neoplasm of conjunctiva, 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) UBM IMMERSION 88580 - OD - RIGHT EYE Routine 10/10/2024 10:30 PM CDT Malignant neoplasm of conjunctiva, 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) FUNDUS PHOTOS/FAF - OU - BOTH EYES Routine 10/10/2024 1:30 PM CDT Uveitis, anterior B-SCAN ULTRASOUND 63272 - OD - RIGHT EYE Routine 07/21/2024 8:30 AM MANAGER NIGHT Uveitis, anterior from Last 3 Months Results * B-SCAN ULTRASOUND 08829 - OD - RIGHT EYE (10/10/2024 10:30 PM CDT) Anatomical Region Laterality Modality Head Ultrasound Narrative 10/10/2024 10:30 PM CDT Vitreous debris right eye (OD) when compared to left eye (OS), attached 360 , no choroidal mass lesions us Haley Gonzalez MD PhD OPHTH ULTRASOUND Fin al Result * UBM Immersion [id number] - OD - Right Eye (10/10/2024 10:30 PM CDT) Clock Hour 6 O'Clock CONTINUUM Anatomical Region Laterality Modality Head Ultrasound Narrative 10/10/2024 10:30 PM CDT 6 O'Clock. Notes No iris or ciliary body mass lesions us Haley Gonzalez MD PhD OPHTH ULTRASOUND Fin al Result * Fundus Photos/FAF - OU - Both Eyes (10/10/2024 1:30 PM CDT) Anatomical Region Laterality Modality Head Fundus Photograp hy Narrative 10/11/2024 2:54 PM CDT Right eye (OD): limited view 2/2 anterior segment Left eye (OS): + vessel tortuosity , small CR scar us Haley Gonzalez MD PhD OPHTH PHOTOGRAPHY Fi nal Result * B-SCAN ULTRASOUND 18249 - OD - RIGHT EYE (07/21/2024 8:30 AM MANAGER NIGHT) Anatomical Region Laterality Modality Head Ultrasound Narrative 07/25/2024 11:37 AM MANAGER NIGHT No vitreitis, RD, no obvious CME us Floresita Chavez MD OPHTH ULTRASOUND Final Res ult from Last 3 Months Insurance [facility] Advance Directives For more information, please contact: [phone] * Full Code (Latest Code Status on File) Date Activated Date Inactivated Comments 04/28/2023 11:03 AM 05/05/2023 7:19 PM Care Teams Rolfer Relationship Specialty Start Date End Date Candido Hayes DO [address] [place] [address] PCP - General Family Medicine 08/28/24 Shasta Sena MD [address] [facility] [address] [place] [address] Medical Oncologist/Supervisor [employer] Medical Oncology 05/05/23
--- OUTSIDE RECORDS SUMMARY | 2024-10-12 07:28 | XMS_ITS | Encounter Summary ---
Author Organization [facility] Address [address] [place] [address] Care Team Providers Care Senior Cyber Intelligence Analyst Name Role Phone Jazmin Tyson Primary Care Provider [phone] Candido Hayes DO Primary Care Provider [phone] Ambrocio Ashford MD Unavailable [phone] Encounter Details Date Type Department Care Team (Late st Contact Info) Description 12/10/2018 Abstract [facility] CONVERSION [address] [place] [address] , Generic Conversion, Social History Tobacco Use Types Packs/Day Years Used Date Smoking Tobacco: Never Assessed Sex and Gender Information Value Date Recorded Sex Assigned at Not on file Legal Sex Male 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
[2024-10-12 07:30] VITALS: BP 124/68; PULSE 80; RESP 14; TEMP 36.6; O2SAT 96; BMI 27.0
[2024-10-12 07:43] LABS: Hematocrit 42.7 % (40.0-54.0); Hemoglobin 14.1 g/dL (14.0-18.0); Mean Corpuscular Hemoglobin 27.5 pg (27.0-31.0); Mean Corpuscular Volume 83.4 fL (78.0-102.0); Mean Platelet Volume 9.8 fl (8.7-11.0); Platelet Count Result 216 K/mm3 (150-420); Red Blood Count 5.12 M/mm3 (4.70-6.10); Red Cell Distribution Width 14.6 % (11.6-14.4); White Blood Count 5.9 K/mm3 (4.8-10.8)
[2024-10-12 08:07] LABS: Alanine Aminotransferase 21 U/L (16-63); Albumin Level 4.1 g/dL (3.4-5.0); Alkaline Phosphatase 107 U/L (46-116); Anion Gap 6 mmol/L (4-12); Aspartate Amino Transferase 16 U/L (15-37); Bilirubin,Total 0.7 mg/dL (0.00-1.00); Blood Urea Nitrogen 19 mg/dL (7-18); Calcium 8.9 mg/dL (8.5-10.1); Carbon Dioxide 32 mmol/L (21-32); Chloride 104 mmol/L (98-108); Estimated CRCL calculation 76 ml/min; Estimated Glomerular Filt Rate > 60; Glucose 99 mg/dL (70-99); Osmolality Calculated 296 mOsm/kg (285-295); Potassium 3.5 mmol/L (3.5-5.1); Sodium 142 mmol/L (136-145); Thyroid Stimulating Hormone 1.59 uIU/mL (0.36-3.74); Total Protein 7.8 g/dL (6.4-8.2)
[2024-10-12] MEDS: SODIUM CHLORIDE 0.9% IV 250 ML 10 ML IVPB (08:15)
[2024-10-12] MEDS: ACETAMINOPHEN 325 MG TABLET 650 MG PO (08:20)
[2024-10-12] MEDS: diphenhydrAMINE HCl INJ 50 MG/ML VIAL 25 MG IV PUSH (08:21)
[2024-10-12] MEDS: HYDROCORTISONE SODIUM SUCCINATE 100 MG/2 ML VIAL IV PUSH (08:25)
[2024-10-12] MEDS: FAMOTIDINE 20 MG/ISO 50 ML 20 MG/50 ML BAG 150 MG IVPB (08:26)
[2024-10-12] MEDS: SODIUM CHLORIDE 0.9% IVPB ×3 (08:40→09:46)
[2024-10-12] MEDS: ONDANSETRON IVPB (08:40)
[2024-10-12] MEDS: BRENTUXIMAB VEDOTIN IVPB (09:14)
[2024-10-12] MEDS: NIVOLUMAB IVPB (09:46)
[2024-10-12] MEDS: HEPARIN SODIUM LOCK FLUSH 500 UNITS/5 ML SYRINGE IV PUSH (11:15)
[2024-10-12 11:17] VITALS: BP 120/67; PULSE 72; RESP 14; TEMP 36.6; O2SAT 96
--- NOTE | 2024-10-12 11:19 | PC.NURSE ---
Patient tolerated cycle 7 treatment well. SEE MAR/patient care notes.
[2024-10-13 07:29] LABS: Cortisol Random 12.7 mcg/dL
== END 2024-10-12 07:25 | disposition home or self-care (01) ==
PROVIDERS: PCP Family Medicine; Visit Provider Internal Medicine Hematology
DX: Z51.11 Encounter for antineoplastic chemotherapy (principal); D70.8 Other neutropenia; C81.70 Other Hodgkin lymphoma, unspecified site
CPT/HCPCS: 36415; 36591; 80053; 82533; 84443; 85027; 96367; 96375; 96413; 96417; A9270; J1200; J1720; J2405; J7050; J9042; J9299

== ENCOUNTER 2024-11-02 08:15 | Outpatient (CLI) | payer OTHER, SELFPAY ==
[2024-11-02 08:20] VITALS: BP 132/68; PULSE 78; RESP 14; TEMP 36.5; O2SAT 97
--- OUTSIDE RECORDS SUMMARY | 2024-11-02 08:20 | XMS_ITS | Clinical Summary ---
Author Organization [facility] Address [facility] [place] [address] Care Team Providers Care Refractory Worker Name Role Phone FelecaiCandido kincaid Primary Care Provider [phone] Ambrocio Ashford MD Unavailable [phone] Allergies No known active allergies Medications No known medications Active Problems Problem Noted Date Diagnosed Date Leg weakness, bilateral 04/24/2023 Non Hodgkin's lymphoma ([facility]) 023 Septic shock ([facility]) 12/14/2022 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 Please transfer to DELMA Rai @[phone] when patient returns call. ) 10/24/2024 Telephone [facility] Interventional Radiology [address] [place] [address] Cecelia Iyer, RN Schedule Procedure (LVM for patient to return call to schedule procedure with [facility] Interventional Radiology. Please transfer to DELMA Rai [phone] when patient returns call. ) 09/28/2024 9:18 AM CDT - 09/28/2024 11:59 PM CDT Hospital Encounter [facility] PET [address] [place] [address] Dhiraj Lopez MD Discharge Disposition: Home or [...] week 04/24/2023 How often do you attend hindu or cheondoism serv ices? Never 04/24/2023 Do you belong [...] you are drinking? Patient does not drink 10/21/202 3 Q3: How often do you have si [...] move on to questions 3-9 0 04/14/2022 [facility]at [facility] - Occupational Stress Questionnaire Answer Date Recorded [...] place to sleep or slept in a half-way (including now)? No 04/24/2023 Sex and Gender Information Value Date Recorded Sex Assigned at Not on file Legal Sex Male 5:44 PM DOG HANDLER OR TRAINER Gender Identity Male 04/14/2022 9:23 PM CDT Sexual Orientation Straight 04/14/2022 9: 23 PM CDT Last Filed Vital Signs Vital Sign Reading Time Taken Comments Blood Pressure 117/86 05/23/2024 11:45 AM DOG HANDLER OR TRAINER Pulse 87 05/23/2024 11:45 AM DOG HANDLER OR TRAINER Temperature 36.4 C (97.5 F) 04/28/2023 8:23 AM CDT Respiratory Rate 16 05/23/2024 11:45 AM DOG HANDLER OR TRAINER Oxygen Saturation 99% 05/23/2024 11:45 AM DOG HANDLER OR TRAINER Inhaled Oxygen Concentration - - Weight 70.3 kg (155 lb) 05/23/2024 10:37 AM DOG HANDLER OR TRAINER Height 167.6 cm (5' 6 ) 05/23/2024 10:37 AM DOG HANDLER OR TRAINER Body Mass Index 25.02 05/23/2024 10:37 AM DOG HANDLER OR TRAINER Plan of Treatment Health Maintenance Due Date Last Done Comments Annual Physical 02/07/1992 COVID-19 Vaccine (#1) 1994 Hepatitis C 2007 Pneumococcal Vaccine: Pediatrics (0 to 5 Years) and At-Risk Patients (6 to 49 Years) (1 of 2 - PCV) 02/07/2008 DTaP, Tdap and Td Vaccines (3 - [...] home upon discharge Lifestyle No Rama Chahal, ship design teacher - family caregiver with be involved in care transitions and discharge planning Lifestyle No Catrina Tyler filler shaker Procedure Name Priority Date/Time Associated Diagnosis Comments PET EYE TO THIGH [id number] Routine 09/28/2024 11:57 AM CDT Hodgkin's disease ([facility]/HCC) POCT GLUCOSE - STEARNS DOCKED DEVICE Routine 09/28/2024 10:25 AM CDT from Last 3 Months Results * PET EYE TO THIGH [id number] (09/28/2024 11:57 AM CDT) Anatomical Region Laterality [...] 8:24 AM Narrative 09/29/2024 11:54 AM CDT [address] [address] EXAMINATION: TUMOR FDG-PET/CT IMAGING DATE OF STUDY: 09/28/2024 11:33 AM SCANNER: [facility] RADIOPHARMACEUTICAL: 10.0 mCi F-18 Fluorodeoxyglucose (FDG) i.v. [...] obtained. The study was interpreted on the [employer] workstation. The mean liver SUV (reported for quality process lead purposes) is 1.7. The total scanned area [...] Procedure Note Alexandria Christiansen MD - 09/29/[address] [address] EXAMINATION: TUMOR FDG-PET/CT IMAGING DATE OF STUDY: 09/28/2024 11:33 AM SCANNER: [facility] RADIOPHARMACEUTICAL: 10.0 mCi F-18 Fluorodeoxyglucose (FDG) i.v.Injection site: Right antecubital fossa HISTORY: Hodgkin's lymphoma diagnosed 02/10/2022, previously treated withABVD x 2, and BEACOPP x 3, after which he was lost to follow-up andreturned with diffuse metastatic disease. Then treated withPembrolizomab-GVD with good response. Diagnosed with progression inNov2023. Most recently treated with Brentuximab and Nivolumab andhas had 3 cycles since May, according to ophthalmology note inJanuary 2024. The study is requested for treatment monitoring during therapy. Subsequent treatment strategy. TECHNIQUE: The patient's fasting blood glucose level, measured byglucometer before injection of FDG, was 83 mg/dL. MDYohannesGastroview was notgiven orally. After intravenous administration of FDG, noncontrast CTimages were obtained for attenuation correction and for fusion withemission PET images to allow for anatomical localization of PET findings.Emission PET images were then obtained. The study was interpreted on [employer] workstation. The mean liver SUV (reported for [...] 70 - 109 09/28/2024 10:30 AM CDT [facility] 09/28/2024 10:2 5 AM CDT Dhiraj Lopez MD POCT ORDERABLES - DEV ICE Final Result [facility] [address] [place] [address], [id number] from Last 3 Months Additional Health Concerns [...] 11:10 PM 04/06/2022 4:15 PM Care Teams Refractory Worker Relationship Specialty Start Date End Date Candido Hayes DO [address] [place] [address] PCP - General FAMILY PRACTICE 04/14/22 Ambrocio Ashford MD [address] [place] [address] INTERNAL MEDICINE 10/27/22
--- OUTSIDE RECORDS SUMMARY | 2024-11-02 08:20 | XMS_ITS ---
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 Ashford, [place], [place]. S/p ABVD (2 cycles) with progression [...]
--- OUTSIDE RECORDS SUMMARY | 2024-11-02 08:20 | XMS_ITS | Encounter Summary ---
Author Organization [facility] Address [address] [place] [address] Care Team Providers Care Car Rider Name Role Phone Jazmin Tyson Primary Care Provider [phone] Candido Hayes DO Primary Care Provider [phone] Ambrocio Ashford MD Unavailable [phone] Encounter Details Date Type Department Care Team (Late st Contact Info) Description 12/10/2018 Abstract [facility] CONVERSION [address] [place] [address] , Generic Conversion, Social History Tobacco Use Types Packs/Day Years Used Date Smoking Tobacco: Never Assessed Sex and Gender Information Value Date Recorded Sex Assigned at Not on file Legal Sex Male 5:44 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
--- OUTSIDE RECORDS SUMMARY | 2024-11-02 08:20 | XMS_ITS | Referral Summary ---
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 Ashford, [place], [place]. 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 Male 10:05 AM TRAIN DIRECTOR Gender Identity Male 05/30/2023 9:41 PM TRAIN DIRECTOR Sexual Orientation Straight 05/30/2023 9: 41 PM TRAIN DIRECTOR Last Filed Vital Signs Vital Sign Reading Time Taken Comments Blood Pressure 144/81 06/30/2023 11:15 AM TRAIN DIRECTOR Pulse 81 06/30/2023 11:15 AM TRAIN DIRECTOR Temperature 36.6 C (97.8 F) 06/30/2023 11:15 AM TRAIN DIRECTOR Respiratory Rate 18 06/30/2023 11:15 AM TRAIN DIRECTOR Oxygen Saturation 96% 06/30/2023 11:15 AM TRAIN DIRECTOR Inhaled Oxygen Concentration - - Weight 67.9 kg (149 lb 9.6 oz) 06/30/2023 11:15 AM TRAIN DIRECTOR Height 167.6 cm (5' 6 ) 04/28/2023 11:20 AM CDT Body Mass Index 24.15 04/28/2023 11:20 AM CDT Plan of Treatment Not on file Procedures Procedure Name Priority Date/Time Associated Diagnosis Comments B-SCAN ULTRASOUND 05464 - OD - RIGHT EYE Routine 10/10/2024 10:30 PM CDT Malignant neoplasm of conjunctiva, 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) UBM IMMERSION 39969 - OD - RIGHT EYE Routine 10/10/2024 10:30 PM CDT Malignant neoplasm of conjunctiva, 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) FUNDUS PHOTOS/FAF - OU - BOTH EYES Routine 10/10/2024 1:30 PM CDT Uveitis, anterior from Last 3 Months Results * B-SCAN ULTRASOUND 22028 - OD - RIGHT EYE (10/10/2024 10:30 PM CDT) Anatomical Region Laterality Modality Head Ultrasound Narrative 10/10/2024 10:30 PM CDT Vitreous debris right eye (OD) when compared to left eye (OS), attached 360 , no choroidal mass lesions Haley Gonzalez MD PhD OPHTH ULTRASOUND Fin al Result * UBM Immersion 76105 - OD - Right Eye (10/10/2024 10:30 PM CDT) Clock Hour 6 O'Clock CONTINUUM Anatomical Region Laterality Modality Head Ultrasound Narrative 10/10/2024 10:30 PM CDT 6 O'Clock. Notes No iris or ciliary body mass lesions Haley Gonzalez MD PhD OPHTH ULTRASOUND Fin al Result * Fundus Photos/FAF - OU - Both Eyes (10/10/2024 1:30 PM CDT) Anatomical Region Laterality Modality Head Fundus Photograp hy Narrative 10/11/2024 2:54 PM CDT Right eye (OD): limited view 2/2 anterior segment Left eye (OS): + vessel tortuosity , small CR scar Haley Gonzalez MD PhD OPHTH PHOTOGRAPHY Fi nal Result from Last 3 Months Insurance AETNA [facility] Advance Directives For more information, please contact: [phone] * Full Code (Latest Code Status on File) Date Activated Date Inactivated Comments 04/28/2023 11:03 AM 05/05/2023 7:19 PM Care Teams Guest Room Inspector Relationship Specialty Start Date End Date Candido Hayes DO [address] [place] [address] PCP - General Family Medicine 08/28/24 Shasta Sena MD [address] [facility] [address] [place] [address] Medical Oncologist/Outside Installation Machinist Medical Oncology 05/05/23
--- OUTSIDE RECORDS SUMMARY | 2024-11-02 08:20 | XMS_ITS | Clinical Summary ---
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 Ashford, [place], [place]. 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 08/08/2024 Telephone [facility] Ophthalmology [address] [place] [address] Kimberley Vasquez PT is incarcerated from Last 3 Months Immunizations Immunization Administration [...] on file Legal Sex Male 10:05 AM PERINATOLOGY PHYSICIAN Gender Identity Male 05/30/2023 9:41 PM PERINATOLOGY PHYSICIAN Sexual Orientation Straight 05/30/2023 9: 41 PM PERINATOLOGY PHYSICIAN Obstetrics History Last Filed Vital Signs Vital Sign Reading Time Taken Comments Blood Pressure 144/81 06/30/2023 11:15 AM PERINATOLOGY PHYSICIAN Pulse 81 06/30/2023 11:15 AM PERINATOLOGY PHYSICIAN Temperature 36.6 C (97.8 F) 06/30/2023 11:15 AM PERINATOLOGY PHYSICIAN Respiratory Rate 18 06/30/2023 11:15 AM PERINATOLOGY PHYSICIAN Oxygen Saturation 96% 06/30/2023 11:15 AM PERINATOLOGY PHYSICIAN Inhaled Oxygen Concentration - - Weight 67.9 kg (149 lb 9.6 oz) 06/30/2023 11:15 AM PERINATOLOGY PHYSICIAN Height 167.6 cm (5' 6 ) 04/28/2023 [...] Priority Date/Time Associated Diagnosis Comments B-SCAN ULTRASOUND 65030 - OD - RIGHT EYE Routine 10/10/2024 10:30 PM CDT Malignant neoplasm of conjunctiva, 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) UBM IMMERSION 30775 - OD - RIGHT EYE Routine 10/10/2024 10:30 PM CDT Malignant neoplasm of conjunctiva, 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) FUNDUS PHOTOS/FAF - OU - BOTH EYES Routine 10/10/2024 1:30 PM CDT Uveitis, anterior from Last 3 Months Results * B-SCAN ULTRASOUND 50326 - OD - RIGHT EYE (10/10/2024 10:30 PM CDT) Anatomical Region Laterality Modality Head Ultrasound Narrative 10/10/2024 10:30 PM CDT Vitreous debris right eye (OD) when compared to left eye (OS), attached 360 , no choroidal mass lesions Haley Gonzalez MD PhD OPHTH ULTRASOUND Fin al Result * UBM Immersion 28750 - OD - Right Eye (10/10/2024 10:30 [...] Result from Last 3 Months Insurance AETNA [facility] Advance Directives For more information, please contact: [phone] * Full Code (Latest Code Status on File) Date Activated Date Inactivated Comments 04/28/2023 11:03 AM 05/05/2023 7:19 PM Care Teams Field Map Editor Relationship Specialty Start Date End Date Candido Hayes DO [address] [place] [address] PCP - General Family Medicine 08/28/24 Shasta Sena MD [address] [facility] [address] [place] [address] Medical Oncologist/Hand Umbrella Tipper Medical Oncology 05/05/23
--- OUTSIDE RECORDS SUMMARY | 2024-11-02 08:20 | XMS_ITS | Encounter Summary ---
Author Organization [facility] Address [facility] [place] [address] Care Team Providers Care Tilt Tray Driver Name Role Phone TrentonCandido hammer Primary Care Provider [phone] Ambrocio Ashford MD Unavailable [phone] Reason for Visit * Reason Onset [...] (Late st Contact Info) Description 05/16/2024 Telephone [facility] Interventional Radiology [address] [place] [address] Carin Hassan, RN Preprocedure Call [...] week 04/24/2023 How often do you attend buddhism or church serv ices? Never 04/24/2023 Do you belong to any clubs o r organizations such as buddhism groups, unions, fraternal or athletic groups, or [...] on to questions 3-9 0 04/14/2022 [facility] [place] of Occupat ional Health - Occupational Stress [...] in a group home (including now)? 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
--- OUTSIDE RECORDS SUMMARY | 2024-11-02 08:20 | XMS_ITS | Encounter Summary ---
Author Organization [facility] Address [address] [place] [address] Phone Care Team Providers Care Disabilities Services Officer Name Role Phone Shasta Sena MD Unavailable [phone] No, Physician Primary Care Provider [phone] Candido Hayes DO Primary Care Provider Encounter [...] on file Legal Sex Male 10:05 AM BELL TIER Gender Identity Male 05/30/2023 9:41 PM BELL TIER Sexual Orientation Straight 05/30/2023 9: 41 PM BELL TIER documented as of this encounter Plan of Treatment Not on file documented as of this encounter Procedures Procedure Name Priority Date/Time Associated Diagnosis Comments SCAN - RADIOLOGY/IMAGING 10/14/2023 documented in this encounter Results * SCAN - RADIOLOGY/IMAGING (10/14/2023) Anatomical Region Laterality Modality Other us Provider Scanning Final Result documented in this encounter Visit Diagnoses Not on filedocumented in this encounter Care Teams Disabilities Services Officer Relationship Specialty Start Date End Date No, Physician PCP - General 05/06/23 08/27/24 Candido Hayes DO [address] [place] [address] PCP - General Family Medicine 08/28/24 Shasta Sena MD [address] [facility] [address] [place] [address] Medical Oncologist/Director Of Radio Services Medical Oncology 05/05/23 documented as of this encounter
[2024-11-02 08:32] LABS: Hematocrit 38.1 % (40.0-54.0); Hemoglobin 12.8 g/dL (14.0-18.0); Mean Corpuscular HGB Conc 33.6 g/dL (32-36); Mean Corpuscular Hemoglobin 27.6 pg (27.0-31.0); Mean Corpuscular Volume 82.3 fL (78.0-102.0); Mean Platelet Volume 10.6 fl (8.7-11.0); Platelet Count Result 224 K/mm3 (150-420); Red Blood Count 4.63 M/mm3 (4.70-6.10); Red Cell Distribution Width 14.1 % (11.6-14.4); White Blood Count 5.5 K/mm3 (4.8-10.8)
[2024-11-02 08:37] VITALS: BMI 27.0
[2024-11-02] MEDS: SODIUM CHLORIDE 0.9% IV 250 ML 10 ML IVPB (08:50)
[2024-11-02] MEDS: ACETAMINOPHEN 325 MG TABLET 650 MG PO (08:50)
[2024-11-02] MEDS: diphenhydrAMINE HCl INJ 50 MG/ML VIAL 25 MG IV PUSH (08:50)
[2024-11-02] MEDS: HYDROCORTISONE SODIUM SUCCINATE 100 MG/2 ML VIAL IV PUSH (08:53)
[2024-11-02] MEDS: FAMOTIDINE 20 MG/ISO 50 ML 20 MG/50 ML BAG 150 MG IVPB (08:55)
[2024-11-02] MEDS: SODIUM CHLORIDE 0.9% IVPB ×3 (09:15→10:15)
[2024-11-02] MEDS: ONDANSETRON IVPB (09:15)
[2024-11-02 09:17] LABS: Band Neutrophils Percent 0 % (0-6); Eosinophils Absolute Manual 0.22 K/mm3 (0.02-0.50); Eosinophils Percent Manual 4 % (1-6); Lymphocytes Absolute Manual 0.66 K/mm3 (1.1-4.5); Lymphocytes Percent Manual 12 % (18-44); Monocytes Percent Manual 11 % (3-9); Neutrophils Absolute Manual 4.01 K/mm3 (1.3-6.7); Neutrophils Percent Manual 73 % (46-73); Platelet Estimate Adequate (Adequate); Total Cells Counted 100
[2024-11-02] MEDS: BRENTUXIMAB VEDOTIN IVPB (09:43)
[2024-11-02] MEDS: NIVOLUMAB IVPB (10:15)
[2024-11-02 10:57] LABS: Alanine Aminotransferase 22 U/L (6-50); Albumin Level 4.3 g/dL (3.5-5.1); Alkaline Phosphatase 90 U/L (38-126); Anion Gap 10 mmol/L (4-12); Aspartate Amino Transferase 34 U/L (17-59); Bilirubin,Total 0.7 mg/dL (0.2-1.3); Blood Urea Nitrogen 18 mg/dL (9-20); Calcium 8.9 mg/dL (8.4-10.2); Carbon Dioxide 27 mmol/L (22-30); Chloride 104 mmol/L (98-107); Estimated CRCL calculation 75 ml/min; Estimated Glomerular Filt Rate > 60; Glucose 124 mg/dL (65-110); Osmolality Calculated 294 mOsm/kg (285-295); Potassium 3.3 mmol/L (3.4-5.0); Sodium 141 mmol/L (137-145)
[2024-11-02] MEDS: HEPARIN SODIUM LOCK FLUSH 500 UNITS/5 ML SYRINGE IV PUSH (11:15)
[2024-11-02 11:23] VITALS: BP 108/73; PULSE 78; RESP 14; TEMP 36.5; O2SAT 98
--- NOTE | 2024-11-02 11:54 | PC.NURSE ---
Patient tolerated treatment well today. SEE MAR/patient care notes.
[2024-11-03 08:58] LABS: Cortisol Random 6.9 mcg/dL
== END 2024-11-02 08:16 | disposition home or self-care (01) ==
PROVIDERS: PCP Family Medicine; Visit Provider Internal Medicine Hematology
DX: Z51.11 Encounter for antineoplastic chemotherapy (principal); C81.70 Other Hodgkin lymphoma, unspecified site; D70.8 Other neutropenia
CPT/HCPCS: 36415; 36591; 80053; 82533; 84443; 85025; 96367; 96375; 96413; 96417; A9270; J1200; J1720; J2405; J7050; J9042; J9299

== ENCOUNTER 2024-11-23 08:18 | Outpatient (CLI) | payer OTHER, SELFPAY ==
--- OUTSIDE RECORDS SUMMARY | 2024-11-23 08:21 | XMS_ITS | Referral Summary ---
Author Organization [facility] Address [address] [place] [address] Care Team Providers Care Convenience Store Manager Name Role Phone Shasta Sena MD Unavailable [phone] Candido Hayes DO Primary Care Provider Encounters Date Type Department Care Team Description 10/11/2024 Telephone [facility] Ophthalmology [facility] [place] [address] Haley Gonzalez MD PhD Med Refill 10/10/2024 1:30 PM CDT Office Visit [facility] Ophthalmology [address] [facility] Health [address] [place] [phone] Haley Gonzalez MD PhD Malignant neoplasm of conjunctiva, right (HCC) (Primary Dx); 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 Ashford, [place], [place]. 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 Gender Identity Male 05/30/2023 9:41 PM CARGO STATION WORKER Sexual Orientation Straight 05/30/2023 9: 41 PM CARGO STATION WORKER Last Filed Vital Signs Vital Sign Reading Time Taken Comments Blood Pressure 144/81 06/30/2023 11:15 AM CARGO STATION WORKER Pulse 81 06/30/2023 11:15 AM CARGO STATION WORKER Temperature 36.6 C (97.8 F) 06/30/2023 11:15 AM CARGO STATION WORKER Respiratory Rate 18 06/30/2023 11:15 AM CARGO STATION WORKER Oxygen Saturation 96% 06/30/2023 11:15 AM CARGO STATION WORKER Inhaled Oxygen Concentration - - Weight 67.9 kg (149 lb 9.6 oz) 06/30/2023 11:15 AM CARGO STATION WORKER Height 167.6 cm (5' 6 ) 04/28/2023 11:20 AM CDT Body Mass Index 24.15 04/28/2023 11:20 AM CDT Plan of Treatment Not on file Procedures Procedure Name Priority Date/Time Associated Diagnosis Comments B-SCAN ULTRASOUND 07590 - OD - RIGHT EYE Routine 10/10/2024 10:30 PM CDT Malignant neoplasm of conjunctiva, 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) UBM IMMERSION 07450 - OD - RIGHT EYE Routine 10/10/2024 10:30 PM CDT Malignant neoplasm of conjunctiva, 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) FUNDUS PHOTOS/FAF - OU - BOTH EYES Routine 10/10/2024 1:30 PM CDT Uveitis, anterior from Last 3 Months Results * B-SCAN ULTRASOUND 72868 - OD - RIGHT EYE (10/10/2024 10:30 PM CDT) Anatomical Region Laterality Modality Head Ultrasound Narrative 10/10/2024 10:30 PM CDT Vitreous debris right eye (OD) when compared to left eye (OS), attached 360 , no choroidal mass lesions us Haley Gonzalez MD PhD OPHTH ULTRASOUND Fin al Result * UBM Immersion 37337 - OD - Right Eye (10/10/2024 10:30 [...] nal Result from Last 3 Months Insurance [facility] Advance Directives For more information, please contact: [phone] * Full Code (Latest Code Status on File) Date Activated Date Inactivated Comments 04/28/2023 11:03 AM 05/05/2023 7:19 PM Care Teams Convenience Store Manager Relationship Specialty Start Date End Date Candido Hayes DO [address] [place] [address] PCP - General Family Medicine 08/28/24 Shasta Sena MD [address] [facility] [address] [place] [address] Medical Oncologist/Conveyor System Dispatcher Medical Oncology 05/05/23
--- OUTSIDE RECORDS SUMMARY | 2024-11-23 08:22 | XMS_ITS | Encounter Summary ---
Author Organization [facility] Address [address] [place] [address] Phone Care Team Providers Care Plating Equipment Tender Name Role Phone Shasta Sena MD Unavailable [phone] No, Physician Primary Care Provider [phone] Candido Hayes DO Primary Care Provider Encounter [...] on file Legal Sex Male 10:05 AM SENIOR PROFESSIONAL SERVICES CONSULTANT Gender Identity Male 05/30/2023 9:41 PM SENIOR PROFESSIONAL SERVICES CONSULTANT Sexual Orientation Straight 05/30/2023 9: 41 PM SENIOR PROFESSIONAL SERVICES CONSULTANT documented as of this encounter Plan of Treatment Not on file documented as of this encounter Procedures Procedure Name Priority Date/Time Associated Diagnosis Comments SCAN - RADIOLOGY/IMAGING 10/14/2023 documented in this encounter Results * SCAN - RADIOLOGY/IMAGING (10/14/2023) Anatomical Region Laterality Modality Other us Provider Scanning Final Result documented in this encounter Visit Diagnoses Not on filedocumented in this encounter Care Teams Plating Equipment Tender Relationship Specialty Start Date End Date No, Physician PCP - General 05/06/23 08/27/24 Candido Hayes DO [address] [place] [address] PCP - General Family Medicine 08/28/24 Shasta Sena MD [address] [facility] [address] [place] [address] Medical Oncologist/Control Tower Operator Medical Oncology 05/05/23 documented as of this encounter
--- OUTSIDE RECORDS SUMMARY | 2024-11-23 08:22 | XMS_ITS ---
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 Ashford, [place], [place]. S/p ABVD (2 cycles) with progression [...]
--- OUTSIDE RECORDS SUMMARY | 2024-11-23 08:22 | XMS_ITS | Clinical Summary ---
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 Ashford, [place], [place]. S/p ABVD (2 cycles) with progression [...] Type Department Care Team Description 10/11/2024 Telephone [facility] [address] [place] [address] Haley Gonzalez MD PhD Med Refill 10/10/2024 1:30 PM CDT Office Visit [facility] [address] 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); Uveitis, anterior 09/15/2024 Telephone [facility] [address] [place] [address] Haley Gonzalez MD PhD Medication 08/28/2024 Telephone [facility] [place] [address] Haley Gonzalez MD PhD Med Refill; r/s appt from Last 3 Months Immunizations Immunization Administration [...] on file Legal Sex Male 10:05 AM OVEN STRIPPER Gender Identity Male 05/30/2023 9:41 PM OVEN STRIPPER Sexual Orientation Straight 05/30/2023 9: 41 PM OVEN STRIPPER Obstetrics History Last Filed Vital Signs Vital Sign Reading Time Taken Comments Blood Pressure 144/81 06/30/2023 11:15 AM OVEN STRIPPER Pulse 81 06/30/2023 11:15 AM OVEN STRIPPER Temperature 36.6 C (97.8 F) 06/30/2023 11:15 AM OVEN STRIPPER Respiratory Rate 18 06/30/2023 11:15 AM OVEN STRIPPER Oxygen Saturation 96% 06/30/2023 11:15 AM OVEN STRIPPER Inhaled Oxygen Concentration - - Weight 67.9 kg (149 lb 9.6 oz) 06/30/2023 11:15 AM OVEN STRIPPER Height 167.6 cm (5' 6 ) 04/28/2023 [...] Priority Date/Time Associated Diagnosis Comments B-SCAN ULTRASOUND 99584 - OD - RIGHT EYE Routine 10/10/2024 10:30 PM CDT Malignant neoplasm of conjunctiva, 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) UBM IMMERSION 48965 - OD - RIGHT EYE Routine 10/10/2024 10:30 PM CDT Malignant neoplasm of conjunctiva, 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) FUNDUS PHOTOS/FAF - OU - BOTH EYES Routine 10/10/2024 1:30 PM CDT Uveitis, anterior from Last 3 Months Results * B-SCAN ULTRASOUND 28797 - OD - RIGHT EYE (10/10/2024 10:30 PM CDT) Anatomical Region Laterality Modality Head Ultrasound Narrative 10/10/2024 10:30 PM CDT Vitreous debris right eye (OD) when compared to left eye (OS), attached 360 , no choroidal mass lesions Haley Gonzalez MD PhD OPHTH ULTRASOUND Fin al Result * UBM Immersion 36580 - OD - Right Eye (10/10/2024 10:30 [...] nal Result from Last 3 Months [facility] Direct[facility] For more information, please contact: [phone] * Full Code (Latest Code Status on File) Date Activated Date Inactivated Comments 04/28/2023 11:03 AM 05/05/2023 7:19 PM Care Teams Program Services Planner Relationship Specialty Start Date End Date Candido Hayes DO [address] [place] [address] PCP - General Family Medicine 08/28/24 Shasta Sena MD [address] [facility] [address] [place] [address] Medical Oncologist/Hotel Associate Medical Oncology 05/05/23
[2024-11-23 08:30] VITALS: BP 132/80; PULSE 80; RESP 16; TEMP 36.4; O2SAT 98; BMI 27.0
[2024-11-23 08:36] LABS: Basophils Absolute Auto 0.02 K/mm3 (0.00-0.10); Basophils Percent Auto 0.4 % (0.0-1.0); Eosinophils Absolute Auto 0.23 K/mm3 (0.02-0.50); Eosinophils Percent Auto 4.4 % (1.0-6.0); Hematocrit 41.8 % (40.0-54.0); Hemoglobin 14.1 g/dL (14.0-18.0); Immature Granulocyte Absolute 0.01 K/mm3 (0.00-0.00); Immature Granulocyte Percent A 0.2 % (0.0-0.0); Lymphocytes Absolute Auto 1.34 K/mm3 (1.10-4.50); Lymphocytes Percent Auto 25.6 % (18.0-42.0); Mean Corpuscular HGB Conc 33.7 g/dL (32-36); Mean Corpuscular Hemoglobin 27.5 pg (27.0-31.0); Mean Corpuscular Volume 81.6 fL (78.0-102.0); Mean Platelet Volume 9.9 fl (8.7-11.0); Monocytes Absolute Auto 0.59 K/mm3 (0.10-0.90); Monocytes Percent Auto 11.3 % (2.0-11.0); Neutrophils Absolute Auto 3.04 K/mm3 (1.70-7.20); Neutrophils Percent Auto 58.1 % (50.0-70.0); Platelet Count Result 244 K/mm3 (150-420); Red Blood Count 5.12 M/mm3 (4.70-6.10); Red Cell Distribution Width 14.3 % (11.6-14.4); White Blood Count 5.2 K/mm3 (4.8-10.8)
[2024-11-23 08:51] LABS: Alanine Aminotransferase 21 U/L (6-50); Albumin Level 4.3 g/dL (3.5-5.1); Alkaline Phosphatase 85 U/L (38-126); Anion Gap 5 mmol/L (4-12); Aspartate Amino Transferase 32 U/L (17-59); Bilirubin,Total 0.6 mg/dL (0.2-1.3); Blood Urea Nitrogen 19 mg/dL (9-20); Calcium 8.8 mg/dL (8.4-10.2); Carbon Dioxide 28 mmol/L (22-30); Chloride 106 mmol/L (98-107); Estimated CRCL calculation 79 ml/min; Estimated Glomerular Filt Rate > 60; Glucose 96 mg/dL (65-110); Osmolality Calculated 290 mOsm/kg (285-295); Potassium 3.9 mmol/L (3.4-5.0); Sodium 139 mmol/L (137-145); Total Protein 7.5 g/dL (6.3-8.2)
[2024-11-23] MEDS: SODIUM CHLORIDE 0.9% IV 250 ML 10 ML IVPB (08:58)
[2024-11-23] MEDS: HYDROCORTISONE SODIUM SUCCINATE 100 MG/2 ML VIAL IV PUSH (08:59)
[2024-11-23] MEDS: ACETAMINOPHEN 325 MG TABLET 650 MG (08:59)
[2024-11-23] MEDS: diphenhydrAMINE HCl INJ 50 MG/ML VIAL 25 MG IV PUSH (09:00)
[2024-11-23] MEDS: FAMOTIDINE 20 MG/ISO 50 ML 20 MG/50 ML BAG 150 MG IVPB (09:02)
[2024-11-23] MEDS: ONDANSETRON INJ 16 MG in SODIUM CHLORIDE 0.9% IV 50 ML 150 MG IVPB (09:22)
[2024-11-23] MEDS: BRENTUXIMAB VEDOTIN IVPB (10:30)
[2024-11-23] MEDS: SODIUM CHLORIDE 0.9% IVPB ×2 (10:30→11:00)
[2024-11-23] MEDS: NIVOLUMAB IVPB (11:00)
[2024-11-23] MEDS: HEPARIN SODIUM LOCK FLUSH 500 UNITS/5 ML SYRINGE IV PUSH (11:51)
[2024-11-23 12:15] VITALS: BP 129/77; PULSE 80; RESP 14; TEMP 36.5; O2SAT 97
--- NOTE | 2024-11-23 12:21 | PC.NURSE ---
Patient tolerated treatment well. SEE MAR/Patient care notes.
[2024-11-25 02:43] LABS: Cortisol Random 2.7 mcg/dL
== END 2024-11-23 08:19 | disposition home or self-care (01) ==
LOC: CHSLAB 08:19 → CHSTREATRM 08:39
PROVIDERS: PCP Family Medicine; Visit Provider Internal Medicine Hematology
DX: Z51.11 Encounter for antineoplastic chemotherapy (principal); C81.70 Other Hodgkin lymphoma, unspecified site; D70.8 Other neutropenia
CPT/HCPCS: 36415; 36591; 80053; 82533; 84443; 85025; 96367; 96375; 96413; 96417; A9270; J1200; J1720; J2405; J7050; J9042; J9299

== ENCOUNTER 2024-12-06 14:46 | Outpatient (CLI) | payer OTHER, SELFPAY ==
--- OUTSIDE RECORDS SUMMARY | 2024-12-06 14:58 | XMS_ITS | Clinical Summary ---
Author Organization [facility] Address 1 [place] [address] Care Team Providers Care Front Counter Attendant Name Role Phone Shasta Sena MD Unavailable [phone] Candido Hayes DO Primary Care Provider Allergies [...] use. 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 Ashford, [place], [place]. S/p ABVD (2 cycles) with progression [...] Encounters Date Type Department Care Team Description 11/23/2024 Telephone [facility] Ophthalmology [address] [facility] 1st [place] [address] Daxa Aggarwal 10/11/2024 Telephone [facility] Ophthalmology [address] [place] [address] Haley Gonzalez MD PhD Med Refill 10/10/2024 1:30 PM CDT Office Visit [facility]mology [address] [facility] 6th [place] [address] Haley Gonzalez MD PhD Malignant neoplasm of conjunctiva, right (HCC) (Primary Dx); 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); Uveitis, anterior 09/15/2024 Telephone [facility] Ophthalmology [address] [place] [address] Haley Gonzalez MD PhD Medication from Last 3 Months Immunizations Immunization Administration [...] on file Legal Sex Male 10:05 AM EMERGENCY NURSE Gender Identity Male 05/30/2023 9:41 PM EMERGENCY NURSE Sexual Orientation Straight 05/30/2023 9: 41 PM EMERGENCY NURSE Obstetrics History Last Filed Vital Signs Vital Sign Reading Time Taken Comments Blood Pressure 144/81 06/30/2023 11:15 AM EMERGENCY NURSE Pulse 81 06/30/2023 11:15 AM EMERGENCY NURSE Temperature 36.6 C (97.8 F) 06/30/2023 11:15 AM EMERGENCY NURSE Respiratory Rate 18 06/30/2023 11:15 AM EMERGENCY NURSE Oxygen Saturation 96% 06/30/2023 11:15 AM EMERGENCY NURSE Inhaled Oxygen Concentration - - Weight 67.9 kg (149 lb 9.6 oz) 06/30/2023 11:15 AM EMERGENCY NURSE Height 167.6 cm (5' 6) 04/28/2023 11:20 AM CDT Body Mass Index [...] Priority Date/Time Associated Diagnosis Comments B-SCAN ULTRASOUND 22516 - OD - RIGHT EYE Routine 10/10/2024 10:30 PM CDT Malignant neoplasm of conjunctiva, 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) UBM IMMERSION 77094 - OD - RIGHT EYE Routine 10/10/2024 10:30 PM CDT Malignant neoplasm of conjunctiva, 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) FUNDUS PHOTOS/FAF - OU - BOTH EYES Routine 10/10/2024 1:30 PM CDT Uveitis, anterior from Last 3 Months Results * B-SCAN ULTRASOUND 01530 - OD - RIGHT EYE (10/10/2024 10:30 PM CDT) Anatomical Region Laterality Modality Head Ultrasound Narrative 10/10/2024 10:30 PM CDT Vitreous debris right eye (OD) when compared to left eye (OS), attached 360 , no choroidal mass lesions Haley Gonzalez MD PhD OPHTH ULTRASOUND Fin al Result * UBM Immersion 41066 - OD - Right Eye (10/10/2024 10:30 [...] Result from Last 3 Months Insurance [facility] Advance Directives For more information, please contact: [phone] * Full Code (Latest Code Status on File) Date Activated Date Inactivated Comments 04/28/2023 11:03 AM 05/05/2023 7:19 PM Care Teams Front Counter Attendant Relationship Specialty Start Date End Date Buschling, Candido Williamson, DO [address] [place] [address] PCP - General Family Medicine 08/28/24 Shasta Sena MD [address] [facility] [address] [place] [address] Medical Oncologist/Assembly Line Supervisor Medical Oncology 05/05/23
--- OUTSIDE RECORDS SUMMARY | 2024-12-06 14:58 | XMS_ITS | Encounter Summary ---
Author Organization [facility] Address [address] [place] [address] Phone Care Team Providers Care Restoration Silversmith Name Role Phone Shasta Sena MD Unavailable [phone] No, Physician Primary Care Provider [phone] Candido Hayes DO Primary Care Provider Encounter [...] on file Legal Sex Male 10:05 AM CENTRAL STERILIZATION TECHNICIAN Gender Identity Male 05/30/2023 9:41 PM CENTRAL STERILIZATION TECHNICIAN Sexual Orientation Straight 05/30/2023 9: 41 PM CENTRAL STERILIZATION TECHNICIAN documented as of this encounter Plan of Treatment Not on file documented as of this encounter Procedures Procedure Name Priority Date/Time Associated Diagnosis Comments SCAN - RADIOLOGY/IMAGING 10/14/2023 documented in this encounter Results * SCAN - RADIOLOGY/IMAGING (10/14/2023) Anatomical Region Laterality Modality Other us Provider Scanning Final Result documented in this encounter Visit Diagnoses Not on filedocumented in this encounter Care Teams Restoration Silversmith Relationship Specialty Start Date End Date No, Physician PCP - General 05/06/23 08/27/24 Candido Hayes DO [address] [place] [address] PCP - General Family Medicine 08/28/24 Shasta Sena MD [address] [facility] [address] [place] [address] Medical Oncologist/Grainer Machine Medical Oncology 05/05/23 documented as of this encounter
--- OUTSIDE RECORDS SUMMARY | 2024-12-06 14:58 | XMS_ITS ---
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 Ashford, . S/p ABVD (2 cycles) with progression then [...]
--- OUTSIDE RECORDS SUMMARY | 2024-12-06 14:58 | XMS_ITS | Referral Summary ---
Author Organization [facility] Address [address] [place] [address] Care Team Providers Care Shear Grinder Operator Name Role Phone Shasta Sena MD Unavailable [phone] Candido Hayes DO Primary Care Provider Encounters Date Type Department Care Team Description 11/23/2024 Telephone [facility] Ophthalmology [address] [place] [address] Daxa Aggarwal 10/11/2024 Telephone [facility] Ophthalmology [facility] [place] [address] Haley Gonzalez MD PhD Med Refill 10/10/2024 1:30 PM CDT Office Visit [facility] Ophthalmology [facility] [address] [place] [address] Haley Gonzalez MD PhD Malignant neoplasm of conjunctiva, right (HCC) (Primary Dx); 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 Ashford, [place], [place]. 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 Gender Identity Male 05/30/2023 9:41 PM MARINE MACHINIST Sexual Orientation Straight 05/30/2023 9: 41 PM MARINE MACHINIST Last Filed Vital Signs Vital Sign Reading Time Taken Comments Blood Pressure 144/81 06/30/2023 11:15 AM MARINE MACHINIST Pulse 81 06/30/2023 11:15 AM MARINE MACHINIST Temperature 36.6 C (97.8 F) 06/30/2023 11:15 AM MARINE MACHINIST Respiratory Rate 18 06/30/2023 11:15 AM MARINE MACHINIST Oxygen Saturation 96% 06/30/2023 11:15 AM MARINE MACHINIST Inhaled Oxygen Concentration - - Weight 67.9 kg (149 lb 9.6 oz) 06/30/2023 11:15 AM MARINE MACHINIST Height 167.6 cm (5' 6) 04/28/2023 11:20 AM CDT Body Mass Index 24.15 04/28/2023 11:20 AM CDT Plan of Treatment Not on file Procedures Procedure Name Priority Date/Time Associated Diagnosis Comments B-SCAN ULTRASOUND 52309 - OD - RIGHT EYE Routine 10/10/2024 10:30 PM CDT Malignant neoplasm of conjunctiva, 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) UBM IMMERSION 88863 - OD - RIGHT EYE Routine 10/10/2024 10:30 PM CDT Malignant neoplasm of conjunctiva, 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) FUNDUS PHOTOS/FAF - OU - BOTH EYES Routine 10/10/2024 1:30 PM CDT Uveitis, anterior from Last 3 Months Results * B-SCAN ULTRASOUND 81587 - OD - RIGHT EYE (10/10/2024 10:30 PM CDT) Anatomical Region Laterality Modality Head Ultrasound Narrative 10/10/2024 10:30 PM CDT Vitreous debris right eye (OD) when compared to left eye (OS), attached 360 , no choroidal mass lesions us Haley Gonzalez MD PhD OPHTH ULTRASOUND Fin al Result * UBM Immersion 52401 - OD - Right Eye (10/10/2024 10:30 PM CDT) Clock Hour 6 O'Clock CONTINUUM Anatomical Region Laterality Modality Head Ultrasound Narrative 10/10/2024 10:30 PM CDT 6 O'Clock. Notes No iris or ciliary body mass lesions Haley Gonzalez MD PhD OPH ULTRASOUND Fin [...] nal Result from Last 3 Months Insurance [facility] Advance Directives For more information, please contact: [phone] * Full Code (Latest Code Status on File) Date Activated Date Inactivated Comments 04/28/2023 11:03 AM 05/05/2023 7:19 PM Care Teams Shear Grinder Operator Relationship Specialty Start Date End Date Candido Hayes DO [address] [place] [address] PCP - General Family Medicine 08/28/24 Shasta Sena MD [address] [place] [address] [address] [place] [address] Medical Oncologist/Proposal Manager Writer Medical Oncology 05/05/23
[2024-12-06 15:00] LABS: Hematocrit 37.7 % (40.0-54.0); Mean Corpuscular HGB Conc 34.5 g/dL (32-36); Mean Corpuscular Hemoglobin 27.3 pg (27.0-31.0); Mean Corpuscular Volume 79.2 fL (78.0-102.0); Mean Platelet Volume 10.3 fl (8.7-11.0); Platelet Count Result 175 K/mm3 (150-420); Red Blood Count 4.76 M/mm3 (4.70-6.10); Red Cell Distribution Width 13.7 % (11.6-14.4); White Blood Count 4.6 K/mm3 (4.8-10.8)
[2024-12-06 15:23] LABS: Alanine Aminotransferase 23 U/L (6-50); Albumin Level 4.1 g/dL (3.5-5.1); Alkaline Phosphatase 91 U/L (38-126); Anion Gap 4 mmol/L (4-12); Aspartate Amino Transferase 42 U/L (17-59); Bilirubin,Total 0.7 mg/dL (0.2-1.3); Blood Urea Nitrogen 16 mg/dL (9-20); Calcium 8.7 mg/dL (8.4-10.2); Carbon Dioxide 30 mmol/L (22-30); Chloride 104 mmol/L (98-107); Estimated Glomerular Filt Rate > 60; Glucose 85 mg/dL (65-110); Lactate Dehydrogenase 235 U/L (120-246); Osmolality Calculated 286 mOsm/kg (285-295); Potassium 3.3 mmol/L (3.4-5.0); Sodium 138 mmol/L (137-145); Total Protein 7.3 g/dL (6.3-8.2)
[2024-12-06 15:32] LABS: Band Neutrophils Percent 0 % (0-6); Eosinophils Absolute Manual 0.27 K/mm3 (0.02-0.50); Eosinophils Percent Manual 6 % (1-6); Hypochromasia 1+; Lymphocytes Percent Manual 24 % (18-44); Monocytes Absolute Manual 0.64 K/mm3 (0.1-0.90); Monocytes Percent Manual 14 % (3-9); Neutrophils Absolute Manual 2.57 K/mm3 (1.3-6.7); Neutrophils Percent Manual 56 % (46-73); Platelet Estimate Adequate (Adequate); Poikilocytosis 1+; Schistocytes None Seen; Total Cells Counted 100
[2024-12-06 16:01] LABS: Erythrocyte Sedimentation Rate 32 mm/hr (0-15)
[2024-12-09 03:38] LABS: Immunoglobulin A 490 mg/dL (47-310); Immunoglobulin G 1226 mg/dL (600-1640); Immunoglobulin M 57 mg/dL (50-300)
== END 2024-12-06 14:47 | disposition home or self-care (01) ==
LOC: CHSLAB 14:47
PROVIDERS: PCP Family Medicine; Visit Provider Internal Medicine Hematology
DX: C81.90 Hodgkin lymphoma, unspecified, unspecified site (principal)
CPT/HCPCS: 36415; 80053; 82784; 83615; 85025; 85652

== ENCOUNTER 2025-01-20 11:20 | Emergency (ER) | payer OTHER, SELFPAY ==
--- NOTE | ~2025-01-20 | XR_ITS ---
XR shoulder RT min 2V 01/20/2025 11:36 INDICATION: Right shoulder pain. Limited range of motion. PROCEDURE: 2 view chest COMPARISON: No prior studies for comparison. FINDINGS: Fracture, dislocation or subluxation is not identified. The soft tissues appear within norm al limits. No foreign bodies are identified. IMPRESSION: 1: NO ACUTE BONE OR JOINT ABNORMALITY IDENTIFIED. Reviewed, dictated and finalized at location A.
[2025-01-20 11:22] VITALS: BP 129/73; PULSE 98; RESP 18; TEMP 36.4; O2SAT 100
--- OUTSIDE RECORDS SUMMARY | 2025-01-20 11:22 | XMS_ITS ---
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 S/p ABVD (2 cycles) with progression [...] type (HCC) Treatment Medications No medications scheduled. Past Treatment and Therapy Plans Oncology Chemotherapy Treatment Plan Name Start Date Discontinue Date Treatment Medications Discontinue Reason Plan Provider Cycles Pembrolizumab + GVD: Gemcitabine / VinORELBine / DOXOrubicin Liposomal (DOXIL) 21 Day Cycles - Hodgkin 023 01/11/2025 DOXOrubicin liposomal (LIPODOX)gemcit abine (GEMZAR)gemcita bine (GEMZAR) IVPB in 250 mL (using 38 mg/ml gemcitabine) (J9201)gemcitab ine IVPB in 250 mL (using 100 mg/ml gemcitabine) (J9196)LIPOSOMA L DOXOrubicin (DOXIL) IVPB in 250 mLpembrolizumab (KEYTRUDA)pembr olizumab (KEYTRUDA) IVPB in 100 mLvinorelbine (NAVELBINE)vino relbine (NAVELBINE) IVPB in 50 mL Automatic discontinuation of dormant plans Shasta Sena MD 3 of 6 cycles started Lifetime Dose Tracking * Chemical Lifetime Dose Automatic Entry Manual Entr y doxorubicin HCl pegylated liposomal 79.996 mg/m2 (148.4 mg) 79.996 mg/m2 (148.4 mg) 0 mg/m2 (0 mg) doxorubicin isotoxic equivalent (Please manually verify calculation) 79.996 mg/m2 (148.4 mg) 79.996 mg/m2 (148.4 mg) 0 mg/m2 (0 mg)
--- OUTSIDE RECORDS SUMMARY | 2025-01-20 11:22 | XMS_ITS | Clinical Summary ---
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 Ashford, [place], [place]. S/p ABVD (2 cycles) with progression [...] Encounters Date Type Department Care Team Description 01/12/2025 Telephone [facility] Ophthalmology [address] [place] [address] Floresita Chavez MD 11/23/2024 Telephone [facility] Ophthalmology [address] [phone] Daxa Aggarwal from Last 3 Months Immunizations Immunization Administration [...] on file Legal Sex Male 10:05 AM NOZZLEMAN Gender Identity Male 05/30/2023 9:41 PM NOZZLEMAN Sexual Orientation Straight 05/30/2023 9: 41 PM NOZZLEMAN Obstetrics History Last Filed Vital Signs Vital Sign Reading Time Taken Comments Blood Pressure 144/81 06/30/2023 11:15 AM NOZZLEMAN Pulse 81 06/30/2023 11:15 AM NOZZLEMAN Temperature 36.6 C (97.8 F) 06/30/2023 11:15 AM NOZZLEMAN Respiratory Rate 18 06/30/2023 11:15 AM NOZZLEMAN Oxygen Saturation 96% 06/30/2023 11:15 AM NOZZLEMAN Inhaled Oxygen Concentration - - Weight 67.9 kg (149 lb 9.6 oz) 06/30/2023 11:15 AM NOZZLEMAN Height 167.6 cm (5' 6) 04/28/2023 11:20 [...] (1 of 2) 02/07/2008 Influenza Vaccine (#1) 2025 DTaP/Tdap/Td Vaccine (6 - Td or Tdap) 05/11/2031 05/11/2021, 04/04/2004, 10/03/1993, Additional history exists Hepatitis B Screening Completed 08/26/1999 , 03/07/1999, 02/07/1999 HPV Vaccines Aged Out No longer eligi ble based on patient's age to complete this topic Insurance [facility] Advance Directives For more information, please contact: [phone] * Full Code (Latest Code Status on File) Date Activated Date Inactivated Comments 04/28/2023 11:03 AM 05/05/2023 7:19 PM Care Teams Home Service Consultant Relationship Specialty Start Date End Date Candido Hayes DO [address] [place] [address] PCP - General Family Medicine 08/28/24 Shasta Sena MD [address] [facility] [address] [place] [address] Medical Oncologist/Sonography Technician Medical Oncology 05/05/23
--- OUTSIDE RECORDS SUMMARY | 2025-01-20 11:22 | XMS_ITS | Referral Summary ---
Author Organization [facility] Address [address] [place] [address] Care Team Providers Care Tile Molder Hand Name Role Phone Shasta eSna MD Unavailable [phone] Candido Hayes DO Primary Care Provider Encounters Date Type Department Care Team Description 01/12/[address] [facility] Ophthalmology [address] [place], [place] [phone] Floresita Chavez MD 11/23/[address] 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 Male 10:05 AM TRANSITIONS RN CARE COORDINATOR Gender Identity Male 05/30/2023 9:41 PM TRANSITIONS RN CARE COORDINATOR Sexual Orientation Straight 05/30/2023 9: 41 PM TRANSITIONS RN CARE COORDINATOR Last Filed Vital Signs Vital Sign Reading Time Taken Comments Blood Pressure 144/81 06/30/2023 11:15 AM TRANSITIONS RN CARE COORDINATOR Pulse 81 06/30/2023 11:15 AM TRANSITIONS RN CARE COORDINATOR Temperature 36.6 C (97.8 F) 06/30/2023 11:15 AM TRANSITIONS RN CARE COORDINATOR Respiratory Rate 18 06/30/2023 11:15 AM TRANSITIONS RN CARE COORDINATOR Oxygen Saturation 96% 06/30/2023 11:15 AM TRANSITIONS RN CARE COORDINATOR Inhaled Oxygen Concentration - - Weight 67.9 kg (149 lb 9.6 oz) 06/30/2023 11:15 AM TRANSITIONS RN CARE COORDINATOR Height 167.6 cm (5' 6) 04/28/2023 11:20 AM CDT Body Mass Index 24.15 04/28/2023 11:20 AM CDT Plan of Treatment Not on file Insurance [facility] Advance Directives For more information, please contact: [phone] * Full Code (Latest Code Status on File) Date Activated Date Inactivated Comments 04/28/2023 11:03 AM 05/05/2023 7:19 PM Care Teams Tile Molder Hand Relationship Specialty Start Date End Date Candido Hayes DO [address] [place] [address] PCP - General Family Medicine 08/28/24 [place] [address] [place] [address] [address] [place] [address] Medical Oncologist/Price Changer Medical Oncology 05/05/23
--- OUTSIDE RECORDS SUMMARY | 2025-01-20 11:22 | XMS_ITS | Clinical Summary ---
Author Organization [facility] Address [facility] [place] [address] Care Team Providers Care Records Clerk Name Role Phone Feleciacodi Candidolexis DENNISON Primary Care Provider [phone] Ambrocio Ashford MD Unavailable [phone] Allergies No known active allergies Medications HYDROmorphone (DILAUDID) 2 MG tablet Take 1 tablet (2 mg total) by mouth every 3 (three) hours as needed. 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 Hypokalemia 04/05/2022 Encounters Date Type Department Care Team Description 12/20/2024 9:58 AM CDT - 12/20/2024 11:59 PM T Hospital Encounter [facility] [address] [place] [address] Carla Lopez MD Discharge Disposition: Home or Self Care (Routine Discharge) 12/20/2024 Travel 11/20/2024 12:29 PM CDT - 11/20/2024 11:59 PM T Hospital Encounter [facility] Ultrasound [address] [place] [address] Carla Lopez MD Discharge Disposition: Home or Self Care (Routine Discharge) 11/20/2024 Travel 11/07/2024 Telephone [facility] Interventional Radiology [address] [place] [address] Cecelia Iyer, RN Schedule Procedure (US Gd left axillary LN bx ordered by Dr.Mohammad Lopez) 10/25/2024 Telephone [facility] Ultrasound [address] [place] [address] Cecelia Iyer RN Schedule Procedure (LVM for patient to return call to schedule procedure with [facility] Interventional Radiology. Please transfer to DELMA Rai @[phone] when patient returns call. ) 10/24/2024 Telephone [facility] Interventional Radiology [address] [place] [address] Cecelia Iyer RN Schedule Procedure (LVM for patient to return call to schedule procedure with [facility] Interventional Radiology. Please transfer to DELMA Rai @[phone] when patient returns call. ) from Last 3 Months Family History Medical History Relation Comments Cancer Mother Cancer Sister Relation Status Comments Mother Sister Social History Tobacco Use Types Packs/Day Years Used Date Smoking Tobacco: Every Day Cigarettes Smokeless Tobacco: Never Tobacco Cessation:Ready to Q uit: Not Asked; Counseling Given: Not Answered Comments:not smoking very much lately Alcohol Use Standard Drinks/Week Comments Not Currently 0 (1 standard drink = 0.6 oz [...] week 04/24/2023 How often do you attend sikh or yarsanism serv ices? Never 04/24/2023 Do you belong to any clubs o r organizations such as sikh groups, unions, fraternal or athletic groups, or [...] questions 3-9 0 04/14/2022 [facility] - Occupational [...] place to sleep or slept in a nursing home (including now)? 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 Gender Identity Male 04/14/2022 9:23 PM CDT Sexual Orientation Straight 04/14/2022 9: 23 PM CDT Last Filed Vital Signs Vital Sign Reading Time Taken Comments Blood Pressure 124/74 11/20/2024 2:17 PM CDT Pulse 63 11/20/2024 2:17 PM CDT Temperature 36.4 C (97.5 F) 04/28/2023 8:23 AM CDT Respiratory Rate 16 11/20/2024 2:17 PM CDT Oxygen Saturation 99% 11/20/2024 2:17 PM CDT Inhaled Oxygen Concentration - - Weight 76.2 kg (168 lb) 11/20/2024 12:37 PM CDT Height 167.6 cm (5' 6) 11/20/2024 12:37 PM CDT Body Mass Index 27.12 11/20/2024 12:37 PM CDT Plan of Treatment Health Maintenance Due [...] home upon discharge Lifestyle No Rama Chahal, saturation diver - family caregiver with be involved in care transitions and discharge planning Lifestyle No Catrina Tyler, conference service coordinator Procedure Name Priority Date/Time Associated Diagnosis Comments PET WHOLE BODY INITIAL Routine 12/20/2024 12:09 PM CDT Hodgkin's disease ([facility]) POCT GLUCOSE - DOCKED DEVICE Routine 12/20/2024 10:22 AM CDT US GD LYMPH NODE BX Routine 11/20/2024 2 :19 PM CDT Hodgkin's disease ([facility]) PATHOLOGY Routine 11/20/2024 12:00 AM CDT from Last 3 Months Results * PET WHOLE BODY INITIAL (12/20/2024 12:09 PM CDT) Anatomical Region Laterality Modality Body Positron Emissio n Tomography (PET), Positron Emission Tomography (PET) 12/20/2024 2:53 PM CDT Impressions 12/20/2024 4:01 PM CDT IMPRESSION: 1. Progressive pete disease with increasing number of involved markedly hypermetabolic left axillary lymph nodes. 5PS= 5. 2. Mildly hypermetabolic upper abdominal and periportal lymph nodes are indeterminate but concerning for potential early recurrent pete involvement below the diaphragm. 3. Altered biodistribution of FDG secondary to insulin effect from a nonfasting state with food debris seen within the stomach. This lowers the sensitivity of this evaluation in detecting sites of disease involvement and artificially lowers SUV values on this examination. This should be regarded on follow-up imaging when the SUV measurements are being compared on subsequent exams. 4. Focal uptake along the anterior right globe on the prior exam is not visualized on the current study. This may be secondary to the altered biodistribution on the current exam or improvement in this lesion. Ordered By: CARLA LOPEZ Interpreted By: Alexandria Christiansen MD, 12/20/2024 2:53 PM Narrative 12/20/2024 4:01 PM CDT [address] [address] EXAMINATION: TUMOR FDG-PET/CT IMAGING DATE OF STUDY: 12/20/2024 SCANNER: [facility] RADIOPHARMACEUTICAL: 10.0 mCi F-18 Fluorodeoxyglucose (FDG) i.v. Injection site: Right antecubital fossa HISTORY: Hodgkin's lymphoma diagnosed 02/10/2022, previously treated with ABVD x 2, and BEACOPP x 3, after which he was lost to follow-up and returned with diffuse metastatic disease. Then treated with Pembrolizomab-GVD with good response. Diagnosed with progression in May 2024. Most recently treated with Brentuximab and Nivolumab. 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 The study is requested for treatment monitoring during therapy. Subsequent treatment strategy. TECHNIQUE: The patient's fasting blood glucose level, measured by glucometer before injection of FDG, was 82 mg/dL. MD-Gastroview was not given orally. After intravenous administration of FDG, noncontrast CT images were obtained for attenuation correction and for fusion with emission PET images to allow for anatomical localization of PET findings. Emission PET images were then obtained. The study was interpreted on the [employer] workstation. The mean liver SUV (reported for rn clinical quality purposes) is 1.2. This is lower than expected and appears to be secondary to an altered biodistribution due to insulin effect from a nonfasting state. The total scanned area was skull base to the proximal thighs. Images of the body were obtained starting 62 minutes after injection of tracer. COMPARISON: FDG PET/CT 09/28/2024, 05/23/2024, 11/26/2021 FINDINGS: Liver max SUV is approximately 1.9. Blood pool max SUV is approximately 1.1 There is an altered biodistribution of FDG with diffusely increased FDG uptake throughout the skeletal musculature which lowers FDG activity elsewhere. This reduces the sensitivity of this evaluation in detecting sites of disease involvement and artificially lowers measured SUV values. The altered biodistribution appears to be due to insulin effect from a nonfasting state. Food debris is seen within the stomach. Within the above constraints, there appear to be an increasing number of hypermetabolic left axillary lymph nodes when compared to the previous PET/CT. For reference, a 2.3 x 1.8 cm node with max SUV 8.9 previously measured approximately 1 x 1.1 cm with max SUV 1.9. An axillary node inferiorly measuring 1.3 cm in short axis has max SUV 6.4, previously 13.1. Some of this difference may be secondary to the altered biodistribution on the current exam. Mild FDG uptake associated with a few prominent upper abdominal and periportal lymph nodes with max SUV 3.3, new. Previously described right level 4 cervical lymph node appears similar in size with only mild FDG activity and max SUV 1.6. This is possibly reactive given stability and relatively low level of activity. Multifocal lytic and sclerotic osseous lesions with low-level or absent FDG activity are favored to reflect treated metastases. Mild FDG uptake associated with a lytic lesion at L4 has a max SUV of 3.0, previously 3.2. Symmetric tonsillar FDG uptake is likely infectious/inflammatory. There is asymmetric FDG uptake involving the right muscles of mastication, likely physiologic. Intense FDG uptake along the anterior tongue is likely physiologic. No distinct mass is visualized at this location on CT. Focal uptake along the anterior right globe on the prior exam appears to resolve now with max SUV 2.5 at this area, previously 4.4. This may reflect improvement in the patient's corneal lesion or uveitis. However, this could be artifactual secondary to the altered biodistribution on the current exam. Mild inflammatory FDG uptake associated with a right inguinal hernia repair. The most FDG-avid lesion is a left axillary lymph node which has a maximum SUV of 8.9, and approximate axial dimensions of 2.3 x 1.8 cm. The uptake in this lesion is: markedly greater than liver (5PS= 5). Additional CT findings: A right-sided chest port is present with a tunneled central venous catheter terminating within the right atrium. Mild bronchial wall thickening. There are pathologic fractures involving C4, L4 and T11. Minimal multilevel spondylosis. 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 Procedure Note Alexandria Christiansen MD - 12/20/[address] [address] EXAMINATION: TUMOR FDG-PET/CT IMAGING DATE OF STUDY: 12/20/2024 SCANNER: [facility] RADIOPHARMACEUTICAL: 10.0 mCi F-18 Fluorodeoxyglucose (FDG) i.v.Injection site: Right antecubital fossa HISTORY: Hodgkin's lymphoma diagnosed 02/10/2022, previously treated withABVD x 2, and BEACOPP x 3, after which he was lost to follow-up andreturned with diffuse metastatic disease. Then treated withPembrolizomab-GVD with good response. Diagnosed with progression 2023. Most recently treated with Brentuximab and Nivolumab. 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 The study is requestedfor treatment monitoring during therapy. Subsequent treatment strategy. TECHNIQUE: The patient's fasting blood glucose level, measured byglucometer before injection of FDG, was 82 mg/dL. KAISERGastroview was notgiven orally. After intravenous administration of FDG, noncontrast CTimages were obtained for attenuation correction and for fusion withemission PET images to allow for anatomical localization of PET findings.Emission PET images were then obtained. The study was interpreted on USB [employer] workstation. The mean liver SUV (reported for quality controlpurposes) is 1.2. This is lower than expected and appears to be secondaryto an altered biodistribution due to insulin effect from a nonfastingstate. The total scanned area was skull base to the proximal thighs. Images ofthe body were obtained starting 62 minutes after injection of tracer. COMPARISON: FDG PET/CT 09/28/2024, 05/23/2024, 11/26/2021 FINDINGS: Liver max SUV is approximately 1.9. Blood pool max SUV is approximately1.1 There is an altered biodistribution of FDG with diffusely increased FDGuptake throughout the skeletal musculature which lowers FDG activityelsewhere. This reduces the sensitivity of this evaluation in detectingsites of disease involvement and artificially lowers measured SUV values.The altered biodistribution appears to be due to insulin effect from anonfasting state. Food debris is seen within the stomach. Within the above constraints, there appear to be an increasing number ofhypermetabolic left axillary lymph nodes when compared to the previousPET/CT. For reference, a 2.3 x 1.8 cm node with max SUV 8.9 previouslymeasured approximately 1 x 1.1 cm with max SUV 1.9. An axillary nodeinferiorly measuring 1.3 cm in short axis has max SUV 6.4, [id number]. Some of this difference may be secondary to the alteredbiodistribution on the current exam. Mild FDG uptake associated with a few prominent upper abdominal andperiportal lymph nodes with max SUV 3.3, new. Previously described right level 4 cervical lymph node appears similar insize with only mild FDG activity and max SUV 1.6. This is possiblyreactive given stability and relatively low level of activity. Multifocal lytic and sclerotic osseous lesions with low-level or absentFDG activity are favored to reflect treated metastases. Mild FDG uptakeassociated with a lytic lesion at L4 has a max SUV of 3.0, previously3.2. Symmetric tonsillar FDG uptake is likely infectious/inflammatory. There isasymmetric FDG uptake involving the right muscles of mastication, likelyphysiologic. Intense FDG uptake along the anterior tongue is likelyphysiologic. No distinct mass is visualized at this location on CT. Focal uptake along the anterior right globe on the prior exam appears toresolve now with max SUV 2.5 at this area, previously 4.4. This mayreflect improvement in the patient's corneal lesion or uveitis. However,this could be artifactual secondary to the altered biodistribution on thecurrent exam. Mild inflammatory FDG uptake associated with a right inguinal herniarepair. The most FDG-avid lesion is a left axillary lymph node which has a maximumSUV of 8.9, and approximate axial dimensions of 2.3 x 1.8 cm. The uptakein this lesion is: markedly greater than liver (5PS= 5). Additional CT findings: A right-sided chest port is present with atunneled central venous catheter terminating within the right atrium. Mildbronchial wall thickening. There are pathologic fractures involving C4, L4and T11. Minimal multilevel spondylosis. Chronic nonunited left G1yjclmnpgri process fracture. IMPRESSION: 1. Progressive pete disease with increasing number of involved markedlyhypermetabolic left axillary lymph nodes. 5PS= 5. 2. Mildly hypermetabolic upper abdominal and periportal lymph nodes areindeterminate but concerning for potential early recurrent nodalinvolvement below the diaphragm. 3. Altered biodistribution of FDG secondary to insulin effect from anonfasting state with food debris seen within the stomach. This lowers thesensitivity of this evaluation in detecting sites of disease involvementand artificially lowers SUV values on this examination. This should beregarded on follow-up imaging when the SUV measurements are being comparedon subsequent exams. 4. Focal uptake along the anterior right globe on the prior exam is notvisualized on the current study. This may be secondary to the alteredbiodistribution on the current exam or improvement in this lesion. Ordered By: CARLA LOPEZ Interpreted By: Alexandria Christiansen MD, 12/20/2024 2:53 PM Carla Lopez MD PET Final Result * POCT glucose (12/20/2024 10:22 AM CDT) GLUCOSE POC 82 70 - 109 12/20/2024 10:23 AM CDT [facility] 12/20/2024 10:2 2 AM CDT Carla Lopez MD POCT ORDERABLES - DEV ICE Final Result [facility] [address] [place] [address], [id number] * US GD LYMPH NODE BX (11/20/2024 2:19 PM CDT) Anatomical Region Laterality Modality Undefined Ultrasound, Radi ographic Imaging 11/21/2024 4:58 PM CDT Impressions 11/22/2024 8:29 AM CDT IMPRESSION: Successful ultrasound-guided core biopsy of a left axillary lymph node as detailed above. The attending radiologist, Dr. Jones, was in the department for all critical portions of the procedure, has reviewed the images, and agrees with the content of this report. Dictated By: DEVIN Rodrigues on 11/21/2024 4:58 PM Ordered By: CARLA LOPEZ Interpreted By: DEVIN Rodrigues, 11/21/2024 4:58 PM Narrative 11/22/2024 8:29 AM CDT [address] [address] PROCEDURE: Ultrasound-guided core biopsy of a left axillary lymph node INDICATION: PET avid left axillary lymph node, history of Hodgkin's lymphoma. COMPARISON: 09/28/2024 PET TECHNIQUE: Following informed consent and [place] protocol to verify correct patient, site, and procedure to be performed, planning sonographic images of the left axillary area were obtained, showing multiple hypoechoic rounded left axillary lymph nodes. The largest hypoechoic rounded left axillary lymph node was selected for core biopsy. Suitable skin site was marked. The region was sterilely prepared and draped. The ultrasound transducer was placed in a sterile sleeve. Local anesthesia was achieved with buffered 1% lidocaine, which was injected along the anticipated needle path under ultrasound guidance. Ultrasound guidance was then utilized to perform multiple core biopsies with an 18-gauge [place] needle. Specimen adequacy was confirmed by a cotton weigher. Post biopsy imaging demonstrated no hematoma. Sterile dressing was applied. No complications. EBL: Nil Procedure Note Popeye Jones MD - 11/22/[address] [address] PROCEDURE: Ultrasound-guided core biopsy of a left axillary lymph node INDICATION: PET avid left axillary lymph node, history of Hodgkin'slymphoma. COMPARISON: 09/28/2024 PET TECHNIQUE: Following informed consent and [place] protocol to verifycorrect patient, site, and procedure to be performed, planning sonographicimages of the left axillary area were obtained, showing multiplehypoechoic rounded left axillary lymph nodes. The largest hypoechoic rounded left axillary lymph node was selected forcore biopsy. Suitable skin site was marked. The region was sterilely prepared anddraped. The ultrasound transducer was placed in a sterile sleeve. Local anesthesia was achieved with buffered 1% lidocaine, which wasinjected along the anticipated needle path under ultrasound guidance. Ultrasound guidance was then utilized to perform multiple core biopsieswith an 18-gauge [place] needle. Specimen adequacy was confirmed by a cotton weigher. Post biopsy imaging demonstrated no hematoma. Sterile dressing was applied. No complications. EBL: Nil IMPRESSION: Successful ultrasound-guided core biopsy of a left axillary lymph node asdetailed above. The attending radiologist, Dr. Jones, was in the department for allcritical portions of the procedure, has reviewed the images, and agreeswith the content of this report. Dictated By: DEVIN Rodrigues on 11/21/2024 4:58 PM Ordered By: CARLA LOPEZ Interpreted By: DEVIN Rodrigues, 11/21/2024 4:58 PM Carla Lopez MD ULTRASOUND Final Result * Pathology (11/20/2024 12:00 AM CDT) PATHOLOGY [facility] Department of Laboratory Medicine [address] [place] [id number] , extension [phone] Pathology Report Addendum Surgical Pathology Report Name: CRYSTAL CAPONE Specimen #: [id number] Age: 8 1990 (Age: 34) Location: [facility] Sex: M Procedure Date: 11/20/2024 Hospital #: [id number] Date Received: 11/20/2024 Date Reported: / Provider: CARLA HAREC Source: Lymph node, left axillary, biopsy Clinical History: History of Hodgkin's lymphoma FINAL DIAGNOSIS: Lymph node, left axillary, biopsy: -Classic Hodgkin lymphoma; see synoptic report SYNOPTIC REPORT: PRECURSOR AND MATURE LYMPHOID MALIGNANCIES TUMOR Site Left axillary lymph node Diagnosis Classic Hodgkin lymphoma SPECIAL STUDIES Immunohistochemistry The neoplastic cells are positive for: MUM1, PAX5 (weak), CD30, CD20 (subset) The neoplastic cells are negative for: CD3, CD45, CD15, ALK1 Other: ALLYSSA-BENJA is pending and will be reported in an addendum. Flow Cytometry Not performed Conventional Cytogenetics Not performed Fluorescence in situ Hybridization Not performed Molecular Alterations Detected Not performed COMMENTS Not applicable Gross Description: Received in formalin, labeled with a patient label and is not further designated, are 3 needle core biopsies of white-morales slightly hemorrhagic soft tissue that are 0.4 and 0.9 cm in greatest dimension. Also received is 1 touch prep slide. The specimen is entirely submitted in cassettes 1 and 2. Gross examination (when applicable) was performed at [facility], [address] [place] [address]. This case was interpreted and signed out at [facility], [address] [place] [address]. All immunohistochemical and histochemical tests were developed by and performed at [facility], [address] [place] [address]. All tests reported here have not been cleared or approved by the U.S. Food and Drug Administration (FDA). This laboratory is regulated under CLIA as qualified to perform high-complexity testing. These tests are used for clinical purposes. They should not be regarded as investigational or for research. Positive and negative controls show appropriate reactivity. Intraoperative Diagnosis: Left axillary lymph node, immediate assessment for adequacy: -Pass 1: Adequate Rapid on-site consultation performed by PEREZ Woodard (ASCP) at [facility], [address] [place] [address]. Electronically Signed Out ALEX BETH MD Addenda/Procedures Addendum Date Ordered: 11/25/2024 Status: Signed Out Date Complete: 11/25/2024 By: ALEX BAEZ Date Reported: 11/25/2024 Addendum Diagnosis {Not Entered} Addendum Comment This addendum is created to report on ALLYSSA-BENJA performed at [facility], [place], [place] and interpreted at [facility], [place], [place]. ALLYSSA-BENJA is negative. The final diagnosis remains unchanged. This addendum was interpreted and signed out at [facility], [address] [facility] [address]. [facility] 11/20/2024 11/20/2024 2:5 5 PM CDT Comment:Lymph node, left axi llary, biopsy us Carla Lopez MD PATHOLOGY/CYTOLOGY OR DERABLES Final Result [facility] [address] [place] [address], [place] [phone] [id number] from Last 3 Months Additional Health Concerns [...] 11:10 PM 04/06/2022 4:15 PM Care Teams Records Clerk Relationship Specialty Start Date End Date Candido Hayes DO [address] [place] [address] PCP - General FAMILY PRACTICE 04/14/22 Ambrocio Ashford MD [address] [place] [address] INTERNAL MEDICINE 10/27/22
--- OUTSIDE RECORDS SUMMARY | 2025-01-20 11:22 | XMS_ITS | Encounter Summary ---
Author Organization [facility] Address [address] [place] [address] Phone Care Team Providers Care Financial Advisor Trainee Name Role Phone Shasta Sena MD Unavailable [phone] No, Physician Primary Care Provider [phone] Candido Hayes DO Primary Care Provider Encounter [...] on file Legal Sex Male 10:05 AM [employer]IE[employer] Gender Identity Male 05/30/2023 9:41 PM [employer] Sexual Orientation Straight 05/30/2023 9: 41 PM CHIEF [employer] documented as of this encounter Plan of Treatment Not on file documented as of this encounter Procedures Procedure Name Priority Date/Time Associated Diagnosis Comments SCAN - RADIOLOGY/IMAGING 10/14/2023 documented in this encounter Results * SCAN - RADIOLOGY/IMAGING (10/14/2023) Anatomical Region Laterality Modality Other us Provider Scanning Final Result documented in this encounter Visit Diagnoses Not on filedocumented in this encounter Care Teams Financial Advisor Trainee Relationship Specialty Start Date End Date No, Physician PCP - General 05/06/23 08/27/24 Candido Hayes DO [address] [place] [address] PCP - General Family Medicine 08/28/24 Shasta Sena MD [address] [facility] [address] [place] [address] Medical Oncologist/Design Technician Medical Oncology 05/05/23 documented as of this encounter
--- OUTSIDE RECORDS SUMMARY | 2025-01-20 11:22 | XMS_ITS | Encounter Summary ---
Author Organization [facility] Address [facility] [place] [address] Care Team Providers Care Sterilizer Operator Name Role Phone TrentonSoledad hammerlexis DENNISON Primary Care Provider Ambrocio Ashford MD Unavailable [phone] Reason for Visit * Reason Onset [...] (Late st Contact Info) Description 05/16/2024 Telephone [facility] Interventional Radiology [address] [place] [address] Carin Hassan, RN Preprocedure Call [...] How often do you attend mormonism or amish serv ices? 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
--- OUTSIDE RECORDS SUMMARY | 2025-01-20 11:22 | XMS_ITS | Encounter Summary ---
Author Organization [facility] Address [address] [place] [address] Care Team Providers Care Product Development Specialist Name Role Phone Jazmin TysonP- Primary Care Provider [phone] Candido Hayes DO Primary Care Provider [phone] Ambrocio Ashford MD Unavailable [phone] Encounter Details Date Type Department Care Team (Late st Contact Info) Description 12/10/2018 Abstract SFL CONVERSION [address] [place] [address] , Generic Conversion, Social History Tobacco Use Types Packs/Day Years Used Date Smoking Tobacco: Never Assessed Sex and Gender Information Value Date Recorded Sex Assigned at Male 11/20/2024 12:26 PM CDT 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
--- NOTE | 2025-01-20 11:33 | ED_ITS ---
HPI - Extremity Injury (Upper) General Chief Complaint: Extremity Injury, Upper Stated Complaint: right shoulder pain Time Seen by Provider: 01/20/25 11:24 Source: patient Mode of arrival: EMS Limitations: no limitations History of Present Illness HPI narrative: 34 year old male arrives to the Emergency Department via EMS. Patient complains of non-localized right shoulder pain. Patient states he was doing a lot of activity with his shoulder over the last few days. States awoke with pain today. He took Dilaudid 2 mg po, which he has for chronic management of pain associated with lymphoma. Denies chest pain, shortness of breath. Pain is worse with movements and palpation. complaint: injury to: right Onset (ago): hour(s) (this morning) Exacerbating factors: movement of extremity Treatments prior to arrival: other (Dilaudid po) Related Data Allergies Allergy/AdvReac Type Severity Reaction Status Date / Time NKDA,NO LATEX Allergy Mild Unknown Uncoded 01/20/25 11:23 Review of Systems Review of Systems: All systems reviewed & are unremarkable except as noted in HPI and below Constitutional: Constitutional: Reports as per HPI Eyes: Eyes: Reports as per HPI ENT: Reports system reviewed and no additional complaints, except as documented Cardiovascular: Cardiovascular: Reports as per HPI and Denies chest pain Respiratory: Respiratory: Reports as per HPI, Denies chest congestion, Denies cough and Denies dyspnea Gastrointestinal: Gastrointestinal: Reports as per HPI, Denies abdominal pain, Denies nausea and Denies vomiting Genitourinary: Genitourinary: Reports no additional male genitourinary complaints Musculoskeletal: Musculoskeletal: Reports no additional musculoskeletal complaints and Reports arthralgias (right shoulder) Neurologic: Reports system reviewed and no additional complaints, except as documented, Denies focal weakness, Denies numbness and Denies weakness PMFSH Past Medical History Medical History Widespread metastatic malignant neoplastic disease Anxiety ADHD Abdominal pain Cellulitis Surgical History Surgical History H/O adenoidectomy H/O hernia repair Family History Family History Mother Non-Hodgkin lymphoma Depression Social History Social History Smoking status: Current some day smoker Tobacco type: cigarettes Alcohol intake: never Substance use: current Substance use type: marijuana and methamphetamine Lack of Transportation: YES Lack of Food: Sometimes True Current Housing: I Have Housing Concerned About Future Housing: No Difficulty Paying Gas/Electric Bills: YES Difficulty Paying for Meds: YES Currently Unemployed: YES Education: High School Diploma/GED Difficulty w/ Childcare or Family Care: YES Living arrangements: with family Occupation/Education: unemployed Gender identity (if verbalized by the patient): Male Exam Const: General: no acute distress Nutritional Appearance: well nourished Orientation/consciousness: patient oriented x3 Limitations: no limitations HENMT: Head: normal to inspection Ears: external ears normal Face/Nose/Sinus: Normal external nose present Face and sinus: normal facial exam Mouth: Yes Normal oral and palatal mucosa present Eyes: Pupils: Equal, round and reactive pupils present EOM: EOMs intact bilaterally Direct Ophthalmoscopy: no photophobia Neck: Neck: normal visual inspection Chest: Chest palpation & inspection: normal inspection of the chest Resp: Effort & Inspection: normal respiratory effort Cardio: Rate: regular rate Other: peripheral pulses intact GI: Inspection: non-distended GI Palp: Yes Soft to palpation and No Tenderness to palpation present (GI) Back/Spine/Pelvis: Back: no CVA tenderness Skin: General skin exam: normal color Rashes: no rashes Wounds: no wounds Neuro: General: patient oriented x3 and moves all extremities Cranial nerves: Yes Nystagmus not present Speech: normal speech Gait exam (Neuro): Normal gait present Other: grossly normal Extrem: General: normal to inspection Other: complains of non-localized tenderness to palpation right shoulder. No deformity, erythema, edema, contusion, ecchymosis. Full ROM passively. Distal NV intact. Psych: Mental Status: mental status grossly normal Course Vital Signs Vital signs: Vital Signs Temperature 36.4 C 01/20/25 11:22 Pulse Rate 98 01/20/25 11:22 Respiratory Rate 18 01/20/25 11:22 Blood Pressure 129/73 01/20/25 11:22 Pulse Oximetry 100 01/20/25 11:22 Oxygen Delivery Room Air 01/20/25 11:22 Temperature 36.4 C 01/20/25 11:22 Pulse Rate 98 01/20/25 11:22 Respiratory Rate 18 01/20/25 11:22 Blood Pressure 129/73 01/20/25 11:22 Pulse Oximetry 100 01/20/25 11:22 Oxygen Delivery Room Air 01/20/25 11:22 MDM - Extremity Injury (Upper) MDM Narrative Medical decision making narrative: 34 y/o male arrives to the ED via EMS c/o R shoulder pain. Denies any specific injury. States has been using shoulder a lot recently. Awoke with pain today. PE: no obvious deformity, erythema, edema, contusion, ecchymosis. Mild non- localized tenderness R shoulder. Full ROM passively. NV intact distally. XR R Shoulder: unremarkable Tx: Sllng Instructions Discharge Plan Discharge Clinical Impression: Muscle strain of right shoulder Patient Disposition: Home Condition: Stable Instructions: Shoulder Sprain (ED) Additional Instructions: Rest right shoulder Sling as needed for comfort Continue home medications Follow up Primary Care Physician Patient Language: Kinyarwanda Prescriptions: No Action hydromorphone [Dilaudid] 2 mg tablet 2 mg PO Q6H PRN (Reason: pain) Qty: 20 0RF Follow-up/Referrals: Candido Hayes DO [Primary Care Provider] - Time of Disposition: 12:05
[2025-01-20 12:16] VITALS: BP 129/73; PULSE 98; RESP 18; TEMP 36.4; O2SAT 100
--- OUTSIDE RECORDS SUMMARY | 2025-01-20 12:17 | XMS_ITS ---
Author Organization [facility] Address [address] [place] [address] Care Team Providers Care Software Development Project Manager Name Role Phone Shasta Sena MD Unavailable [phone] Candido Hayes DO Primary Care Provider Active [...] 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 Ashford, [place], [place]. S/p ABVD (2 cycles) with progression [...]
--- OUTSIDE RECORDS SUMMARY | 2025-01-20 12:17 | XMS_ITS | Clinical Summary ---
Author Organization [facility] Address [facility] [place] [address] Care Team Providers Care Stem Crusher Name Role Phone Feleciacodi Candidolexis DENNISON Primary Care Provider [phone] Ambrocio Ashford MD Unavailable [phone] Allergies No known active allergies Medications HYDROmorphone (DILAUDID) 2 MG tablet Take 1 tablet (2 mg total) by mouth every 3 (three) hours as needed. 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 Hypokalemia 04/05/2022 Encounters Date Type Department Care Team Description 12/20/2024 9:58 AM CDT - 12/20/2024 11:59 PM T Hospital Encounter [facility] [address] [place] [address] Carla Lopez MD Discharge Disposition: Home or Self Care (Routine Discharge) 12/20/2024 Travel 11/20/2024 12:29 PM CDT - 11/20/2024 11:59 PM T Hospital Encounter [facility] Ultrasound [address] [place] [address] Carla Lopez MD Discharge Disposition: Home or Self Care (Routine Discharge) 11/20/2024 Travel 11/07/2024 Telephone [facility] Interventional Radiology [address] [place] [address] Cecelia Iyer, RN Schedule Procedure (US Gd left axillary LN bx ordered by Dr.Mohammad Lopez) 10/25/2024 Telephone [facility] Ultrasound [address] [place] [address] Cecelia Iyer RN Schedule Procedure (LVM for patient to return call to schedule procedure with [facility] Interventional Radiology. Please transfer to DELMA Rai @[phone] when patient returns call. ) 10/24/2024 Telephone [facility] Interventional Radiology [address] [place] [address] Cecelia Iyer RN Schedule Procedure (LVM for patient to return call to schedule procedure with [facility] Interventional Radiology. Please transfer to DELMA Rai @[phone] when patient returns call. ) from Last [...] week 04/24/2023 How often do you attend taoist or anabaptist serv ices? Never 04/24/2023 Do you belong to any clubs o r organizations such as taoist groups, unions, fraternal or athletic groups, or [...] move on to questions 3-9 0 04/14/2022 [facility] of Occupat ional Health - Occupational [...] place to sleep or slept in a mcc (including now)? 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 Gender Identity Male 04/14/2022 9:23 PM [...] home upon discharge Lifestyle No Rama Chahal, door maker - family caregiver with be involved in care transitions and discharge planning Lifestyle No Catrina Tyler, lean manufacturing specialist Procedure Name Priority Date/Time Associated Diagnosis Comments PET WHOLE BODY INITIAL Routine 12/20/2024 12:09 PM CDT Hodgkin's disease ([facility]) POCT GLUCOSE - DOCKED DEVICE Routine 12/20/2024 10:22 AM CDT US GD LYMPH NODE BX Routine 11/20/2024 2 :19 PM CDT Hodgkin's disease ([facility]) PATHOLOGY Routine 11/20/2024 12:00 AM CDT from [...] 2:53 PM Narrative 12/20/2024 4:[address] PM [address]T [address] [address] EXAMINATION: TUMOR FDG-PET/CT IMAGING DATE OF STUDY: 12/20/2024 SCANNER: [facility] RADIOPHARMACEUTICAL: 10.0 mCi F-18 Fluorodeoxyglucose (FDG) i.v. [...] obtained. The study was interpreted on the [employer] workstation. The mean liver SUV (reported for quality internship purposes) is 1.2. This is lower than [...] Procedure Note Alexandria Christiansen MD - 12/20/[address] [address] EXAMINATION: TUMOR FDG-PET/CT IMAGING DATE OF STUDY: 12/20/2024 SCANNER: [facility] RADIOPHARMACEUTICAL: 10.0 mCi F-18 Fluorodeoxyglucose (FDG) i.v.Injection [...] then obtained. The study was interpreted on [employer] workstation. The mean liver SUV (reported for [...] in short axis has max SUV 6.4, [id number]. Some of this difference may be secondary [...] T11. Minimal multilevel spondylosis. Chronic nonunited left [id number] process fracture. IMPRESSION: 1. Progressive pete disease [...] 70 - 109 12/20/2024 10:[address] [facility] 12/20/2024 10:2 2 AM CDT Carla Lopez MD POCT ORDERABLES - DEV ICE Final Result [facility] [address] [place] [address], [id number] * US GD LYMPH NODE BX (11/20/2024 [...] 4:58 PM Narrative 11/22/2024 8:[address] AM CDT [address] [address] PROCEDURE: Ultrasound-guided core biopsy of a left axillary lymph node INDICATION: PET avid left axillary lymph node, history of Hodgkin's lymphoma. COMPARISON: 09/28/2024 PET TECHNIQUE: Following informed consent and Plover protocol to verify correct patient, site, and [...] multiple core biopsies with an 18-gauge [place] needle. Specimen adequacy was confirmed by a abalone processor. Post biopsy imaging demonstrated no hematoma. Sterile dressing was applied. No complications. EBL: Nil Procedure Note Popeye Jones MD - 11/22/[address] [address] PROCEDURE: Ultrasound-guided core biopsy of a left axillary lymph node INDICATION: PET avid left axillary lymph node, history of Hodgkin'slymphoma. COMPARISON: 09/28/2024 PET TECHNIQUE: Following informed consent and Plover protocol to verifycorrect patient, site, and procedure [...] perform multiple core biopsieswith an 18-gauge [place] needle. Specimen adequacy was confirmed by a abalone processor. Post biopsy imaging demonstrated no hematoma. Sterile [...] * Pathology (11/20/2024 12:00 AM CDT) PATHOLOGY [facility] Department of Laboratory Medicine [address] [place] [id number] , extension [phone] Pathology Report Addendum Surgical Pathology Report Name: CRYSTAL CAPONE Specimen #: [id number] Age: 8 1990 (Age: 34) Location: [facility] Sex: M Procedure Date: 11/20/2024 Hospital #: [id number] Date Received: 11/20/2024 Date Reported: / Provider: [...] Gross examination (when applicable) was performed at [facility], [address] [place] [address]. This case was interpreted and signed out at [facility], [address] [place] [address]. All immunohistochemical and histochemical tests were developed by and performed at [facility], [address] [place] [address]. All tests reported here have not been [...] consultation performed by PEREZ Woodard (ASCP) at [facility], [address] [place] [address]. Electronically Signed Out ALEX BETH MD Addenda/Procedures Addendum Date Ordered: 11/25/2024 Status: Signed Out Date Complete: 11/25/2024 By: ALEX BAEZ Date Reported: 11/25/2024 Addendum Diagnosis {Not Entered} Addendum Comment This addendum is created to report on ALLYSSA-BENJA performed at [facility], [place], [place] and interpreted at [facility], [place], [place]. ALLYSSA-BENJA is negative. The final diagnosis remains unchanged. This addendum was interpreted and signed out at [facility], [address] [facility] [address] [facility] 11/20/2024 11/20/2024 2:5 5 PM CDT Comment:Lymph node, left axi llary, biopsy us Carla Lopez MD PATHOLOGY/CYTOLOGY OR DERABLES Final Result [facility] [address] [place] [address], [place] [phone] [id number] from Last 3 Months Additional Health Concerns [...] 11:10 PM 04/06/2022 4:15 PM Care Teams Stem Crusher Relationship Specialty Start Date End Date Candido Hayes DO [address] [place] [address] PCP - General FAMILY PRACTICE 04/14/22 Ambrocio Ashford MD [address] [place] [address] INTERNAL MEDICINE 10/27/22
--- OUTSIDE RECORDS SUMMARY | 2025-01-20 12:17 | XMS_ITS | Encounter Summary ---
Author Organization [facility] Address [address] [place] [address] Care Team Providers Care Assistant Professor Of Geography Name Role Phone Jazmin TysonP- Primary Care Provider [phone] Candido Hayes DO Primary Care Provider [phone] Ambrocio Ashford MD Unavailable Encounter Details Date Type Department Care Team (Late st Contact Info) Description 12/10/2018 Abstract SFL CONVERSION [address] [address] , Generic Conversion, Social History Tobacco Use Types Packs/Day Years Used Date Smoking Tobacco: Never Assessed Sex and Gender Information Value Date Recorded Sex Assigned at Male 11/20/2024 12:26 PM CDT 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
--- OUTSIDE RECORDS SUMMARY | 2025-01-20 12:17 | XMS_ITS | Clinical Summary ---
Author Organization [facility] Address [address] [place] [address] Care Team Providers Care Hvac Operations Technician Name Role Phone Shasta Sena MD Unavailable [phone] Candido Hayes DO Primary Care Provider Allergies [...] 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 Ashford, [place], [place]. S/p ABVD (2 cycles) with progression [...] Type Department Care Team Description 01/12/2025 Telephone [facility] Ophthalmology [address] [place] [address] Floresita Chavez MD 11/23/2024 Telephone [facility] Ophthalmology [address] [phone] Daxa Aggarwal from Last 3 Months Immunizations [...] file Legal Sex Male 10:05 AM HOOP MAKER HELPER MACHINE Gender Identity Male 05/30/2023 9:41 PM HOOP MAKER HELPER MACHINE Sexual Orientation Straight 05/30/2023 9: 41 PM HOOP MAKER HELPER MACHINE Obstetrics History Last Filed Vital Signs Vital Sign Reading Time Taken Comments Blood Pressure 144/81 06/30/2023 11:15 AM HOOP MAKER HELPER MACHINE Pulse 81 06/30/2023 11:15 AM HOOP MAKER HELPER MACHINE Temperature 36.6 C (97.8 F) 06/30/2023 11:15 AM HOOP MAKER HELPER MACHINE Respiratory Rate 18 06/30/2023 11:15 AM HOOP MAKER HELPER MACHINE Oxygen Saturation 96% 06/30/2023 11:15 AM HOOP MAKER HELPER MACHINE Inhaled Oxygen Concentration - - Weight 67.9 kg (149 lb 9.6 oz) 06/30/2023 11:15 AM HOOP MAKER HELPER MACHINE Height 167.6 cm (5' 6) 04/28/2023 11:20 [...] age to complete this topic Insurance [facility] Advance Directives For more information, please contact: [phone] * Full Code (Latest Code Status on File) Date Activated Date Inactivated Comments 04/28/2023 11:03 AM 05/05/2023 7:19 PM Care Teams Hvac Operations Technician Relationship Specialty Start Date End Date Candido Hayes DO [address] [place] [address] PCP - General Family Medicine 08/28/24 Shasta Sena MD [address] [facility] [address] [place] [address] Medical Oncologist/Manager Of Administration Medical Oncology 05/05/23
--- OUTSIDE RECORDS SUMMARY | 2025-01-20 12:17 | XMS_ITS | Encounter Summary ---
Author Organization [facility] Address [address] [place] [address] Phone Care Team Providers Care Sales Representative Printing Paper Name Role Phone Shasta Sena MD Unavailable [phone] No, Physician Primary Care Provider [phone] Candido Hayes DO Primary Care Provider Encounter [...] on file Legal Sex Male 10:05 AM OPTICS MANUFACTURING TECHNICIAN Gender Identity Male 05/30/2023 9:41 PM OPTICS MANUFACTURING TECHNICIAN Sexual Orientation Straight 05/30/2023 9: 41 PM OPTICS MANUFACTURING TECHNICIAN documented as of this encounter Plan of Treatment Not on file documented as of this encounter Procedures Procedure Name Priority Date/Time Associated Diagnosis Comments SCAN - RADIOLOGY/IMAGING 10/14/2023 documented in this encounter Results * SCAN - RADIOLOGY/IMAGING (10/14/2023) Anatomical Region Laterality Modality Other us Provider Scanning Final Result documented in this encounter Visit Diagnoses Not on filedocumented in this encounter Care Teams Sales Representative Printing Paper Relationship Specialty Start Date End Date No, Physician PCP - General 05/06/23 08/27/24 Candido Hayes DO [address] [place] [address] PCP - General Family Medicine 08/28/24 Shasta Sena MD [address] [facility] [address] [place] [address] Medical Oncologist/Psychiatric Arnp Medical Oncology 05/05/23 documented as of this encounter
--- OUTSIDE RECORDS SUMMARY | 2025-01-20 12:17 | XMS_ITS | Referral Summary ---
Author Organization 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 Ashford, [place], [place]. 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 Male 10:05 AM POLICE ACADEMY INSTRUCTOR Gender Identity Male 05/30/2023 9:41 PM POLICE ACADEMY INSTRUCTOR Sexual Orientation Straight 05/30/2023 9: 41 PM POLICE ACADEMY INSTRUCTOR Last Filed Vital Signs Vital Sign Reading Time Taken Comments Blood Pressure 144/81 06/30/2023 11:15 AM POLICE ACADEMY INSTRUCTOR Pulse 81 06/30/2023 11:15 AM POLICE ACADEMY INSTRUCTOR Temperature 36.6 C (97.8 F) 06/30/2023 11:15 AM POLICE ACADEMY INSTRUCTOR Respiratory Rate 18 06/30/2023 11:15 AM POLICE ACADEMY INSTRUCTOR Oxygen Saturation 96% 06/30/2023 11:15 AM POLICE ACADEMY INSTRUCTOR Inhaled Oxygen Concentration - - Weight 67.9 kg (149 lb 9.6 oz) 06/30/2023 11:15 AM POLICE ACADEMY INSTRUCTOR Height 167.6 cm (5' 6) 04/28/2023 11:20 AM CDT Body Mass Index 24.15 04/28/2023 11:20 AM CDT Plan of Treatment Not on file [facility] Direct[facility] For more information, please contact: [phone] * Full Code (Latest Code Status on File) Date Activated Date Inactivated Comments 04/28/2023 11:03 AM 05/05/2023 7:19 PM Care Teams Hide Shaker Relationship Specialty Start Date End Date Candido Hayes DO [address] [place] [address] PCP - General Family Medicine 08/28/24 [place] [address] [place] [address] [address] [place] [address] Medical Oncologist/Veterinary Technology Instructor Medical Oncology 05/05/23
--- OUTSIDE RECORDS SUMMARY | 2025-01-20 12:17 | XMS_ITS | Encounter Summary ---
Author Organization [facility] Address [facility] [place] [address] Care Team Providers Care Content Coordinator Name Role Phone TrentonSoledad hammerlexis DENNISON Primary Care Provider [phone] Ambrocio Ashford MD Unavailable [phone] Reason for Visit * Reason Onset [...] (Late st Contact Info) Description 05/16/2024 Telephone [facility] Interventional Radiology [address] [place] [address] Carin Hassan, RN Preprocedure Call [...] How often do you attend hindu or quaker serv ices? Never 04/24/2023 Do [...] move on to questions 3-9 0 04/14/2022 [facility] Occupat ional Health - Occupational Stress [...] PM CDT Legal Sex Male 5:44 PM ASBESTOS CLOTH INSPECTOR Gender Identity Male 04/14/2022 9:23 PM [...] documented as of this encounter Care Teams Content Coordinator Relationship Specialty Start Date End Date Candido Hayes DO [address] [place] [address] PCP - General FAMILY PRACTICE 04/14/22 Ambrocio Ashford MD [address] [place] [address] INTERNAL MEDICINE 10/27/22 documented as of this encounter
== END 2025-01-20 12:16 | disposition home or self-care (01) ==
LOC: CHSED 12:16
PROVIDERS: Emergency Provider Emergency Medicine; PCP Family Medicine
DX: S46.911A Strain of unspecified muscle, fascia and tendon at shoulder and upper arm level, right arm, initial encounter (principal); C85.90 Non-Hodgkin lymphoma, unspecified, unspecified site; F17.210 Nicotine dependence, cigarettes, uncomplicated; X58.XXXA Exposure to other specified factors, initial encounter
CPT/HCPCS: 73030; 99283; A4565

== ENCOUNTER 2025-02-15 08:14 | Outpatient (CLI) | payer OTHER, SELFPAY ==
--- OUTSIDE RECORDS SUMMARY | 2025-02-15 08:18 | XMS_ITS | Encounter Summary ---
Author Organization [facility] Address [address] [place] [address] Care Team Providers Care Automatic Presser Name Role Phone Jazmin TysonP- Primary Care Provider [phone] Candido Hayes DO Primary Care Provider [phone] Ambrocio Ashford MD Unavailable [phone] Encounter Details Date Type Department Care Team (Late st Contact Info) Description 12/10/2018 Abstract [facility] CONVERSION [address] [place] [address] , Generic Conversion, Social History Tobacco Use Types Packs/Day Years Used Date Smoking Tobacco: Never Assessed Sex and Gender Information Value Date Recorded Sex Assigned at Male 11/20/2024 12:26 PM CDT 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
--- OUTSIDE RECORDS SUMMARY | 2025-02-15 08:18 | XMS_ITS | Encounter Summary ---
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 Gender Identity Male 05/30/2023 9:41 PM INJECTION MOLDING MACHINE SETTER Sexual Orientation Straight 05/30/2023 9: 41 PM INJECTION MOLDING MACHINE SETTER documented as of this encounter Plan of Treatment Not on file documented as of this encounter Procedures Procedure Name Priority Date/Time Associated Diagnosis Comments SCAN - RADIOLOGY/IMAGING 10/14/2023 documented in this encounter Results * SCAN - RADIOLOGY/IMAGING (10/14/2023) Anatomical Region Laterality Modality Other us Provider Scanning Final Result documented in this encounter Visit Diagnoses Not on filedocumented in this encounter Care Teams Valuation Manager Relationship Specialty Start Date End Date No, Physician PCP - General 05/06/23 08/27/24 Candido Hayes DO [address] [place] [address] PCP - General Family Medicine 08/28/24 Shasta Sena MD [address] [facility] [address] [place] [address] Medical Oncologist/[facility] Medical Oncology 05/05/23 documented as of this encounter
--- OUTSIDE RECORDS SUMMARY | 2025-02-15 08:18 | XMS_ITS | Encounter Summary ---
Author Organization [facility] Address [address] [facility] [address] [place] [address] Phone Care Team Providers Care Foreign Law Consultant Name Role Phone Shasta Sena MD Unavailable [phone] Candido Hayes DO Primary Care Provider Encounter Details Date Type Department Care Team (Late st Contact Info) Description 02/12/2025 Telephone [facility] Ophthalmology [address] [place] [phone] Floresita Chavez MD [address] [facility] [address] [place], [place] [id number] Social History Tobacco Use Types Packs/Day Years [...] on file Legal Sex Male 10:05 AM ADMISSION LIAISON Gender Identity Male 05/30/2023 9:41 PM ADMISSION LIAISON Sexual Orientation Straight 05/30/2023 9: 41 PM ADMISSION LIAISON documented as of this encounter Miscellaneous Notes * Telephone Encounter - Coreen Hurst - 02/12/2025 12:39 PM CDT Was unable to lm; sent no show letter with new appointment. If pt calls back please confirm. documented in this encounter Plan of Treatment Not on file documented as of this encounter Visit Diagnoses Not on filedocumented in this encounter Care Teams Foreign Law Consultant Relationship Specialty Start Date End Date Candido Hayes DO [facility] [place] [address] PCP - General Family Medicine 08/28/24 Shasta Sena MD [address] [facility] [address] [place] [address] Medical Oncologist/Certified Substance Abuse Counselor Medical Oncology 05/05/23 documented as of this encounter
--- OUTSIDE RECORDS SUMMARY | 2025-02-15 08:18 | XMS_ITS | Encounter Summary ---
Author Organization [facility] Address [facility] [place] [address] Care Team Providers Care Senior Test Analyst Name Role Phone TrentonSoledad hammerlexis DENNISON Primary Care Provider [phone] Ambrocio Ashford MD Unavailable [phone] Reason for Visit * Reason Onset [...] (Late st Contact Info) Description 05/16/2024 Telephone [facility] Interventional Radiology [address] [place] [address] Carin Hassan, RN Preprocedure Call [...] week 04/24/2023 How often do you attend holiness or gnosticism serv ices? 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
--- OUTSIDE RECORDS SUMMARY | 2025-02-15 08:18 | XMS_ITS | Clinical Summary ---
Author Organization [facility] Address [facility] [place] [address] Care Team Providers Care Seismic Engineer Name Role Phone FeleciacodiCandido DO Primary Care Provider [phone] Ambrocio Ashford MD Unavailable [phone] Allergies No known active allergies Medications HYDROmorphone (DILAUDID) 2 MG tablet Take 1 tablet (2 mg total) by mouth every 3 (three) hours as needed. 10/25/2024 Active Active Problems Problem Noted Date Diagnosed Date Leg weakness, bilateral 04/24/2023 Non Hodgkin's lymphoma ([facility]) 023 Septic shock (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 Hypokalemia 04/05/2022 Encounters Date Type Department Care Team Description 12/20/2024 9:58 AM CDT - 12/20/2024 11:59 PM CDT Hospital Encounter [facility] [address] [place] [address] Carla Lopez MD Discharge Disposition: Home or Self Care (Routine Discharge) 12/20/2024 Travel 11/20/2024 12:29 PM CDT - 11/20/2024 11:59 PM CDT Hospital Encounter [facility] [address] [place] [address] Carla Lopez MD Discharge Disposition: Home or Self Care (Routine Discharge) 11/20/2024 Travel from Last 3 Months Family History [...] week 04/24/2023 How often do you attend congregation or faith serv ices? Never 04/24/2023 Do you belong to any clubs o r organizations such as congregation groups, unions, fraternal or athletic groups, or [...] move on to questions 3-9 0 04/14/2022 [facility] - Occupational Stress Questionnaire Answer Date [...] place to sleep or slept in a senior living (including now)? 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 Gender Identity Male 04/14/2022 9:23 PM CDT [...] Years) (1 of 2 - PCV) 02/07/2008 HPV Vaccines (1 - 3-dose SCDM series) 02/07/2016 DTaP, Tdap and Td Vaccines (3 - Td or Tdap) 05/11/2031 05/11/2021, 04/04/2004, 10/03/1993, Additional history exists Hepatitis B Vaccines Completed 08/26/1999, 03/07/1999, 02/07/1999 Meningococcal B Vaccine Aged Out No l [...] home upon discharge Lifestyle No Rama Chahal, director inbound sales - family caregiver with be involved in care transitions and discharge planning Lifestyle No Catrina Tyler, cyber legal advisor Procedure Name Priority Date/Time Associated Diagnosis Comments PET WHOLE BODY INITIAL Routine 12/20/2024 12:09 PM CDT Hodgkin's disease ([facility]) POCT GLUCOSE - DOCKED DEVICE Routine 12/20/2024 10:22 AM CDT US GD LYMPH NODE BX Routine 11/20/2024 2 :19 PM CDT Hodgkin's disease (CMS/HCC HHS/HCC) PATHOLOGY Routine 11/20/2024 12:00 AM CDT from [...] 2:53 PM Narrative 12/20/2024 4:01 PM CDT [address] [address] EXAMINATION: TUMOR FDG-PET/CT IMAGING DATE OF STUDY: 12/20/2024 SCANNER: [facility] RADIOPHARMACEUTICAL: 10.0 mCi F-18 Fluorodeoxyglucose (FDG) i.v. [...] obtained. The study was interpreted on the [employer] workstation. The mean liver SUV (reported for senior quality technician purposes) is 1.2. This is lower than [...] Procedure Note Alexandria Christiansen MD - 12/20/[address] [address] EXAMINATION: TUMOR FDG-PET/CT IMAGING DATE OF STUDY: 12/20/2024 SCANNER: [facility] RADIOPHARMACEUTICAL: 10.0 mCi F-18 Fluorodeoxyglucose (FDG) i.v.Injection [...] of FDG, was 82 mg/dL. MD-Gastroview was notgiven orally. After intravenous administration of FDG, noncontrast CTimages were obtained for attenuation correction and for fusion withemission PET images to allow for anatomical localization of PET findings.Emission PET images were then obtained. The study was interpreted on [employer] workstation. The mean liver SUV (reported for [...] in short axis has max SUV 6.4, [id number]. Some of this difference may be secondary [...] T11. Minimal multilevel spondylosis. Chronic nonunited left P1fjsyjucbhz process fracture. IMPRESSION: 1. Progressive pete disease [...] 70 - 109 12/20/2024 10:23 AM CDT [facility] 12/20/2024 10:2 2 AM CDT Carla Lopez MD POCT ORDERABLES - DEV ICE Final Result [facility] [address] [place] [address], [place] [phone] [id number] * US GD LYMPH NODE BX (11/20/2024 [...] 4:58 PM Narrative 11/22/2024 8:29 AM CDT [address] [address] PROCEDURE: Ultrasound-guided core biopsy of a left axillary lymph node INDICATION: PET avid left axillary lymph node, history of Hodgkin's lymphoma. COMPARISON: 09/28/2024 PET TECHNIQUE: Following informed consent and [place] protocol to verify correct patient, site, and [...] multiple core biopsies with an 18-gauge Bard Retsof needle. Specimen adequacy was confirmed by a community organization worker. Post biopsy imaging demonstrated no hematoma. Sterile dressing was applied. No complications. EBL: Nil Procedure Note Popeye Jones MD - 11/22/2024 [place] [address] PROCEDURE: Ultrasound-guided core biopsy of a left axillary lymph node INDICATION: PET avid left axillary lymph node, history of Hodgkin'slymphoma. COMPARISON: 09/28/2024 PET TECHNIQUE: Following informed consent and [place] protocol to verifycorrect patient, site, and procedure [...] perform multiple core biopsieswith an 18-gauge Bard Retsof needle. Specimen adequacy was confirmed by a community organization worker. Post biopsy imaging demonstrated no hematoma. Sterile [...] Interpreted By: DEVIN Rodrigues, 11/21/2024 4:58 PM us Carla Lopez MD ULTRASOUND Final Result * Pathology (11/20/2024 12:00 AM CDT) PATHOLOGY [facility] Department of Laboratory Medicine [address] [place] [address] , extension [phone] Pathology Report Addendum Surgical Pathology Report Name: CRYSTAL ROYAL Specimen #: [id number] Age: 8 1990 (Age: 34) Location: [facility] Sex: M Procedure Date: 11/20/2024 Hospital #: [id number] Date Received: 11/20/2024 Date Reported: / Provider: CARLA NICHOLS PA-C Source: Lymph node, left axillary, biopsy Clinical [...] Gross examination (when applicable) was performed at [facility], [address] [place] [address]. This case was interpreted and signed out at [address], [place] [address]. All immunohistochemical and histochemical tests were developed by and performed at [facility], [address] [place] [address]. All tests reported here have not been [...] consultation performed by PEREZ Woodard (ASCP) at [facility], [address] [place] [address]. Electronically Signed Out ALEX BETH MD Addenda/Procedures Addendum Date Ordered: 11/25/2024 Status: Signed Out Date Complete: 11/25/2024 By: ALEX BAEZ Date Reported: 11/25/2024 Addendum Diagnosis {Not Entered} Addendum Comment This addendum is created to report on ALLYSSA-BENJA performed at [place], [place] and interpreted at [place], [place]. ALLYSSA-BENJA is negative. The final diagnosis remains unchanged. This addendum was interpreted and signed out at [facility], [address] [place] [address]. [facility] 11/20/2024 11/20/2024 2:5 5 PM CDT Comment:Lymph node, left axi llary, biopsy Carla Lopez MD PATHOLOGY/CYTOLOGY OR DERABLES Final Result [facility] [address] [place] [address], [id number] from Last 3 Months Additional Health Concerns Infection Onset Date Last Indicated MRSA Comment:04/14/22 nose (JJ) 04/16/2022 04/26/2023 Insurance TNA Advance Directives * Full Code (Latest Code [...] 11:10 PM 04/06/2022 4:15 PM Care Teams Seismic Engineer Relationship Specialty Start Date End Date Candido Hayes DO [address] [place] [address] PCP - General FAMILY PRACTICE 04/14/22 Ambrocio Ashford MD [address] [place] [address] INTERNAL MEDICINE 10/27/22
--- OUTSIDE RECORDS SUMMARY | 2025-02-15 08:18 | XMS_ITS | Clinical Summary ---
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 Ashford, [place], [place]. 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 Gender Identity Male 05/30/2023 9:41 PM BUILDING ILLUMINATING ENGINEER Sexual Orientation Straight 05/30/2023 9: 41 PM BUILDING ILLUMINATING ENGINEER Obstetrics History Last Filed Vital Signs Vital Sign Reading Time Taken Comments Blood Pressure 144/81 06/30/2023 11:15 AM BUILDING ILLUMINATING ENGINEER Pulse 81 06/30/2023 11:15 AM BUILDING ILLUMINATING ENGINEER Temperature 36.6 C (97.8 F) 06/30/2023 11:15 AM BUILDING ILLUMINATING ENGINEER Respiratory Rate 18 06/30/2023 11:15 AM BUILDING ILLUMINATING ENGINEER Oxygen Saturation 96% 06/30/2023 11:15 AM BUILDING ILLUMINATING ENGINEER Inhaled Oxygen Concentration - - Weight 67.9 kg (149 lb 9.6 oz) 06/30/2023 11:15 AM BUILDING ILLUMINATING ENGINEER Height 167.6 cm (5' 6) 04/28/2023 11:20 [...] 02/07/2008 Zoster Vaccine (1 of 2) 02/07/2008 HPV Vaccines (1 - 3-dose SCD M series) 02/07/2016 Influenza Vaccine (#1) 2025 DTaP/Tdap/Td Vaccine (6 - Td or Tdap) 05/11/2031 05/11/2021, 04/04/2004, 10/03/1993, Additional history exists Hepatitis B Screening Completed 08/26/1999 , 03/07/1999, 02/07/1999 Insurance [employer] [facility] Advance Directives For more information, please contact: [phone] * Full Code (Latest Code Status on File) Date Activated Date Inactivated Comments 04/28/2023 11:03 AM 05/05/2023 7:19 PM Care Teams Supervisor Volunteer Services Relationship Specialty Start Date End Date Candido Hayes DO [address] [place] [address] PCP - General Family Medicine 08/28/24 Shasta Sena MD [address] [facility] [address] [place] [address] Medical Oncologist/Nuclear Fuels Research Engineer Medical Oncology 05/05/23
--- OUTSIDE RECORDS SUMMARY | 2025-02-15 08:18 | XMS_ITS ---
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 Ashford, [place], [place]. S/p ABVD (2 cycles) with progression [...]
[2025-02-15 08:20] VITALS: BP 108/69; PULSE 68; RESP 14; TEMP 36.5; O2SAT 97; BMI 24.9
[2025-02-15 08:36] LABS: Hematocrit 34.3 % (40.0-54.0); Hemoglobin 11.3 g/dL (14.0-18.0); Mean Corpuscular HGB Conc 32.9 g/dL (32-36); Mean Corpuscular Hemoglobin 27.4 pg (27.0-31.0); Mean Corpuscular Volume 83.1 fL (78.0-102.0); Platelet Count Result 168 K/mm3 (150-420); Red Blood Count 4.13 M/mm3 (4.70-6.10); White Blood Count 4.3 K/mm3 (4.8-10.8)
[2025-02-15 08:46] LABS: Alanine Aminotransferase 27 U/L (6-50); Albumin Level 3.4 g/dL (3.5-5.1); Alkaline Phosphatase 64 U/L (38-126); Anion Gap 3 mmol/L (4-12); Aspartate Amino Transferase 30 U/L (17-59); Bilirubin,Total 0.4 mg/dL (0.2-1.3); Blood Urea Nitrogen 17 mg/dL (9-20); Calcium 8.6 mg/dL (8.4-10.2); Carbon Dioxide 30 mmol/L (22-30); Chloride 105 mmol/L (98-107); Estimated CRCL calculation 88 ml/min; Estimated Glomerular Filt Rate > 60; Glucose 91 mg/dL (65-110); Osmolality Calculated 287 mOsm/kg (285-295); Potassium 3.8 mmol/L (3.4-5.0); Sodium 138 mmol/L (137-145); Total Protein 5.9 g/dL (6.3-8.2)
[2025-02-15] MEDS: SODIUM CHLORIDE 0.9% IV 250 ML 10 ML IVPB (09:05)
[2025-02-15] MEDS: ONDANSETRON INJ 16 MG, dexAMETHasone SOD 4 MG/ML INJ 12 MG in SODIUM CHLORIDE 0.9% IV 1... 400 MG IVPB (09:15)
[2025-02-15 09:18] LABS: Thyroid Stimulating Hormone 3.220 uIU/mL (0.465-4.680)
[2025-02-15] MEDS: PEMBROLIZUMAB 200 MG in SODIUM CHLORIDE 0.9% IV 100 ML IVPB (09:36)
[2025-02-15] MEDS: GEMCITABINE HCL IVPB (10:09)
[2025-02-15] MEDS: SODIUM CHLORIDE 0.9% IVPB (10:09)
[2025-02-15] MEDS: HEPARIN SODIUM LOCK FLUSH 500 UNITS/5 ML SYRINGE IV PUSH (10:44)
[2025-02-15 11:00] VITALS: BP 127/70; PULSE 78; RESP 14; TEMP 36.4; O2SAT 98
--- NOTE | 2025-02-15 11:23 | PC.NURSE ---
Patient tolerated chemo regimen today well. SEE MAR/patient care notes.
== END 2025-02-15 08:15 | disposition home or self-care (01) ==
PROVIDERS: PCP Family Medicine; Visit Provider Internal Medicine Hematology
DX: Z51.11 Encounter for antineoplastic chemotherapy (principal); C81.70 Other Hodgkin lymphoma, unspecified site; D70.8 Other neutropenia
CPT/HCPCS: 36415; 36591; 80053; 82533; 84443; 85027; 96367; 96375; 96413; 96417; J1100; J2405; J7050; J9201; J9271

== ENCOUNTER 2025-02-27 08:17 | Outpatient (CLI) | payer OTHER, SELFPAY ==
--- OUTSIDE RECORDS SUMMARY | 2025-02-27 08:26 | XMS_ITS | Clinical Summary ---
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 Ashford, [place], [place]. 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 Gender Identity Male 05/30/2023 9:41 PM LIQUID SUGAR MELTER Sexual Orientation Straight 05/30/2023 9: 41 PM LIQUID SUGAR MELTER Obstetrics History Last Filed Vital Signs Vital Sign Reading Time Taken Comments Blood Pressure 144/81 06/30/2023 11:15 AM LIQUID SUGAR MELTER Pulse 81 06/30/2023 11:15 AM LIQUID SUGAR MELTER Temperature 36.6 C (97.8 F) 06/30/2023 11:15 AM LIQUID SUGAR MELTER Respiratory Rate 18 06/30/2023 11:15 AM LIQUID SUGAR MELTER Oxygen Saturation 96% 06/30/2023 11:15 AM LIQUID SUGAR MELTER Inhaled Oxygen Concentration - - Weight 67.9 kg (149 lb 9.6 oz) 06/30/2023 11:15 AM LIQUID SUGAR MELTER Height 167.6 cm (5' 6) 04/28/2023 11:20 [...] Screening Completed 08/26/1999 , 03/07/1999, 02/07/1999 [facility] Directives For more information, please contact: [phone] * Full Code (Latest Code Status on File) Date Activated Date Inactivated Comments 04/28/2023 11:03 AM 05/05/2023 7:19 PM Care Teams Cop Breaker Relationship Specialty Start Date End Date Candido Hayes DO [address] [place] [address] PCP - General Family Medicine 08/28/24 Shasta Sena MD [address] [facility] [address] [place] [address] Medical Oncologist/Wheelage Clerk Medical Oncology 05/05/23
--- OUTSIDE RECORDS SUMMARY | 2025-02-27 08:26 | XMS_ITS ---
Author Organization 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 Ashford, [place], [place]. S/p ABVD (2 cycles) with progression [...] 50 mL Automatic discontinuation of dormant plans Shsata Sena MD 3 of 6 cycles started Lifetime Dose Tracking * Chemical Lifetime Dose Automatic Entry Manual Entr y doxorubicin HCl pegylated liposomal 79.996 mg/m2 (148.4 mg) 79.996 mg/m2 (148.4 mg) 0 mg/m2 (0 mg) doxorubicin isotoxic equivalent (Please manually verify calculation) 79.996 mg/m2 (148.4 mg) 79.996 mg/m2 (148.4 mg) 0 mg/m2 (0 mg)
--- OUTSIDE RECORDS SUMMARY | 2025-02-27 08:26 | XMS_ITS | Encounter Summary ---
Author Organization [facility] Address [address] [place] [address] Phone Care Team Providers Care Ux Designer Name Role Phone Shasta Sena MD Unavailable [phone] No, Physician Primary Care Provider [phone] Candido Hayes DO Primary Care Provider Encounter [...] on file Legal Sex Male 10:05 AM THEATER EDUCATION TEACHER Gender Identity Male 05/30/2023 9:41 PM THEATER EDUCATION TEACHER Sexual Orientation Straight 05/30/2023 9: 41 PM THEATER EDUCATION TEACHER documented as of this encounter Plan of Treatment Not on file documented as of this encounter Procedures Procedure Name Priority Date/Time Associated Diagnosis Comments SCAN - RADIOLOGY/IMAGING 10/14/2023 documented in this encounter Results * SCAN - RADIOLOGY/IMAGING (10/14/2023) Anatomical Region Laterality Modality Other us Provider Scanning Final Result documented in this encounter Visit Diagnoses Not on filedocumented in this encounter Care Teams Ux Designer Relationship Specialty Start Date End Date No, Physician PCP - General 05/06/23 08/27/24 Candido Hayes DO [address] [place] [address] PCP - General Family Medicine 08/28/24 Shasta Sena MD [address] [facility] [address] [place] [address] Medical Oncologist/Tube Sizer And Cutter Operator Medical Oncology 05/05/23 documented as of this encounter
[2025-02-27 08:33] VITALS: BMI 24.6
[2025-02-27 08:38] VITALS: BP 123/69; PULSE 88; RESP 16; TEMP 36.6; O2SAT 98
[2025-02-27 08:54] LABS: Hematocrit 35.8 % (40.0-54.0); Hemoglobin 11.9 g/dL (14.0-18.0); Mean Corpuscular Volume 81.2 fL (78.0-102.0); Red Blood Count 4.41 M/mm3 (4.70-6.10); White Blood Count 3.4 K/mm3 (4.8-10.8)
[2025-02-27 08:55] LABS: Mean Corpuscular HGB Conc 33.0 g/dL (32-36); Mean Corpuscular Hemoglobin 27.0 pg (27.0-31.0); Platelet Count Result 141 K/mm3 (150-420)
[2025-02-27 08:58] LABS: Alanine Aminotransferase 33 U/L (6-50); Albumin Level 4.0 g/dL (3.5-5.1); Alkaline Phosphatase 70 U/L (38-126); Anion Gap 5 mmol/L (4-12); Aspartate Amino Transferase 44 U/L (17-59); Bilirubin,Total 0.6 mg/dL (0.2-1.3); Blood Urea Nitrogen 13 mg/dL (9-20); Calcium 9.4 mg/dL (8.4-10.2); Carbon Dioxide 29 mmol/L (22-30); Chloride 104 mmol/L (98-107); Estimated CRCL calculation 81 ml/min; Estimated Glomerular Filt Rate > 60; Glucose 82 mg/dL (65-110); Osmolality Calculated 285 mOsm/kg (285-295); Potassium 3.9 mmol/L (3.4-5.0); Sodium 138 mmol/L (137-145); Total Protein 6.6 g/dL (6.3-8.2)
[2025-02-27 09:05] LABS: Band Neutrophils Percent 0 % (0-6); Eosinophils Absolute Manual 0.13 K/mm3 (0.02-0.50); Eosinophils Percent Manual 4 % (1-6); Lymphocytes Absolute Manual 1.15 K/mm3 (1.1-4.5); Lymphocytes Percent Manual 34 % (18-44); Monocytes Absolute Manual 0.61 K/mm3 (0.1-0.90); Monocytes Percent Manual 18 % (3-9); Neutrophils Absolute Manual 1.49 K/mm3 (1.3-6.7); Neutrophils Percent Manual 44 % (46-73); Total Cells Counted 100
[2025-02-27] MEDS: SODIUM CHLORIDE 0.9% IV 250 ML 10 ML IVPB (09:05)
[2025-02-27] MEDS: SODIUM CHLORIDE 0.9% IVPB (09:44)
[2025-02-27] MEDS: GEMCITABINE HCL IVPB (09:44)
[2025-02-27] MEDS: HEPARIN SODIUM LOCK FLUSH 500 UNITS/5 ML SYRINGE IV PUSH (10:14)
[2025-02-27] MEDS: PEGFILGRASTIM (ONPRO KIT) 6 MG/0.6 ML SYRINGE SUB-Q (10:32)
[2025-02-27 10:35] VITALS: BP 125/76; PULSE 80; RESP 14; TEMP 36.5; O2SAT 98
--- NOTE | 2025-02-27 10:37 | PC.NURSE ---
Tolerated chemo treatment well. Will be going home with Neulasta Onpro. Education given orally and written. Patient voices no concerns.
== END 2025-02-27 08:18 | disposition home or self-care (01) ==
PROVIDERS: PCP Family Medicine; Visit Provider Internal Medicine Hematology
DX: Z51.11 Encounter for antineoplastic chemotherapy (principal); C81.70 Other Hodgkin lymphoma, unspecified site; D70.8 Other neutropenia
CPT/HCPCS: 36415; 36591; 80053; 85025; 96372; 96377; 96413; J2506; J7050; J9201

== ENCOUNTER 2025-03-13 08:50 | Outpatient (CLI) | payer OTHER, SELFPAY ==
[2025-03-13 09:00] VITALS: BMI 23.6
[2025-03-13 09:16] LABS: Hematocrit 42.1 % (40.0-54.0); Hemoglobin 14.0 g/dL (14.0-18.0); Immature Granulocyte Percent A 0.8 % (0.0-0.0); Lymphocytes Absolute Auto 1.47 K/mm3 (1.10-4.50); Mean Corpuscular HGB Conc 33.3 g/dL (32-36); Mean Corpuscular Hemoglobin 27.2 pg (27.0-31.0); Mean Corpuscular Volume 81.7 fL (78.0-102.0); Nucleated Red Blood Cells Absolute Auto 0.00 K/mm3 (0.00-0.00); Nucleated Red Blood Cells Perc 0.0 % (0-0.0); Platelet Count Result 175 K/mm3 (150-420); Red Blood Count 5.15 M/mm3 (4.70-6.10); White Blood Count 4.8 K/mm3 (4.8-10.8)
[2025-03-13 09:24] LABS: Alanine Aminotransferase 36 U/L (6-50); Albumin Level 4.2 g/dL (3.5-5.1); Alkaline Phosphatase 96 U/L (38-126); Anion Gap 8 mmol/L (4-12); Aspartate Amino Transferase 50 U/L (17-59); Bilirubin,Total 0.6 mg/dL (0.2-1.3); Blood Urea Nitrogen 19 mg/dL (9-20); Calcium 9.5 mg/dL (8.4-10.2); Carbon Dioxide 28 mmol/L (22-30); Chloride 103 mmol/L (98-107); Estimated CRCL calculation 82 ml/min; Estimated Glomerular Filt Rate > 60; Glucose 119 mg/dL (65-110); Osmolality Calculated 291 mOsm/kg (285-295); Potassium 4.2 mmol/L (3.4-5.0); Sodium 139 mmol/L (137-145); Total Protein 7.1 g/dL (6.3-8.2)
--- OUTSIDE RECORDS SUMMARY | 2025-03-13 09:28 | XMS_ITS ---
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 Ashford, [place], [place]. S/p ABVD (2 cycles) with progression [...]
--- OUTSIDE RECORDS SUMMARY | 2025-03-13 09:28 | XMS_ITS | Encounter Summary ---
Author Organization [facility] Address [address] [place] [address] Phone Care Team Providers Care City Alderman Name Role Phone Shasta Sena MD Unavailable [phone] No, Physician Primary Care Provider [phone] Candido Hayes DO Primary Care Provider Encounter [...] on file Legal Sex Male 10:05 AM OIL DEVELOPER Gender Identity Male 05/30/2023 9:41 PM OIL DEVELOPER Sexual Orientation Straight 05/30/2023 9: 41 PM OIL DEVELOPER documented as of this encounter Plan of Treatment Not on file documented as of this encounter Procedures Procedure Name Priority Date/Time Associated Diagnosis Comments SCAN - RADIOLOGY/IMAGING 10/14/2023 documented in this encounter Results * SCAN - RADIOLOGY/IMAGING (10/14/2023) Anatomical Region Laterality Modality Other us Provider Scanning Final Result documented in this encounter Visit Diagnoses Not on filedocumented in this encounter Care Teams City Alderman Relationship Specialty Start Date End Date No, Physician PCP - General 05/06/23 08/27/24 Candido Hayes DO [address] [place] [address] PCP - General Family Medicine 08/28/24 Shasta Sena MD [address] [facility] [address] [place] [address] Medical Oncologist/Penetration Tester Medical Oncology 05/05/23 documented as of this encounter
--- OUTSIDE RECORDS SUMMARY | 2025-03-13 09:28 | XMS_ITS | Clinical Summary ---
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 Ashford, [place], [place]. S/p ABVD (2 cycles) with progression [...] Type Department Care Team Description 02/12/2025 Telephone [facility] Medicine Ophthalmology [address] [facility] 1st [place] [address] Floresita Chavez MD 01/12/2025 Telephone [facility] Medicine Ophthalmology [facility] [place] [address] Floresita Chavez MD from Last 3 Months [...] on file Legal Sex Male 10:05 AM SOLID DIE CUTTER Gender Identity Male 05/30/2023 9:41 PM SOLID DIE CUTTER Sexual Orientation Straight 05/30/2023 9: 41 PM SOLID DIE CUTTER Obstetrics History Last Filed Vital Signs Vital Sign Reading Time Taken Comments Blood Pressure 144/81 06/30/2023 11:15 AM SOLID DIE CUTTER Pulse 81 06/30/2023 11:15 AM SOLID DIE CUTTER Temperature 36.6 C (97.8 F) 06/30/2023 11:15 AM SOLID DIE CUTTER Respiratory Rate 18 06/30/2023 11:15 AM SOLID DIE CUTTER Oxygen Saturation 96% 06/30/2023 11:15 AM SOLID DIE CUTTER Inhaled Oxygen Concentration - - Weight 67.9 kg (149 lb 9.6 oz) 06/30/2023 11:15 AM SOLID DIE CUTTER Height 167.6 cm (5' 6) 04/28/2023 11:20 [...] Screening Completed 08/26/1999 , 03/07/1999, 02/07/1999 [facility] Advance Directives For more information, please contact: [phone] * Full Code (Latest Code Status on File) Date Activated Date Inactivated Comments 04/28/2023 11:03 AM 05/05/2023 7:19 PM Care Teams Hammer Repairer Relationship Specialty Start Date End Date Candido Hayes DO [address] [place] [address] PCP - General Family Medicine 08/28/24 Shasta Sena MD [address] [facility] [address] [place] [address] Medical Oncologist/Mobile Paint Specialist Medical Oncology 05/05/23
[2025-03-13] MEDS: SODIUM CHLORIDE 0.9% IV 250 ML 10 ML IVPB (09:40)
[2025-03-13 09:55] LABS: Thyroid Stimulating Hormone 4.930 uIU/mL (0.465-4.680)
[2025-03-13 09:58] VITALS: BP 104/69; PULSE 88; RESP 14; TEMP 36.4; O2SAT 97
[2025-03-13] MEDS: ONDANSETRON INJ 16 MG, dexAMETHasone SOD 4 MG/ML INJ 12 MG in SODIUM CHLORIDE 0.9% IV 8... 400 MG IVPB (10:10)
[2025-03-13] MEDS: PEMBROLIZUMAB 200 MG in SODIUM CHLORIDE 0.9% IV 92 ML IVPB (10:35)
[2025-03-13] MEDS: GEMCITABINE HCL IVPB (11:05)
[2025-03-13] MEDS: SODIUM CHLORIDE 0.9% IVPB (11:05)
[2025-03-13] MEDS: HEPARIN SODIUM LOCK FLUSH 500 UNITS/5 ML SYRINGE IV PUSH (11:41)
[2025-03-13 12:00] VITALS: BP 108/64; PULSE 80; RESP 14; O2SAT 98
--- NOTE | 2025-03-13 12:43 | PC.NURSE ---
Tolerated Cycle 2 day 1 treatment well. SEE MAR/patient care notes.
== END 2025-03-13 08:51 | disposition home or self-care (01) ==
PROVIDERS: PCP Family Medicine; Visit Provider Internal Medicine Hematology
DX: Z51.11 Encounter for antineoplastic chemotherapy (principal); C81.70 Other Hodgkin lymphoma, unspecified site; D70.8 Other neutropenia
CPT/HCPCS: 36415; 36591; 80053; 82533; 84443; 85025; 96367; 96375; 96413; 96417; J1100; J2405; J7050; J9201; J9271

== ENCOUNTER 2025-03-20 08:13 | Outpatient (CLI) | payer OTHER, SELFPAY ==
[2025-03-20 08:15] VITALS: BP 111/69; PULSE 68; RESP 14; TEMP 36.6; O2SAT 98; BMI 23.8
[2025-03-20 08:30] LABS: Hematocrit 33.0 % (40.0-54.0); Hemoglobin 11.2 g/dL (14.0-18.0); Mean Corpuscular HGB Conc 33.9 g/dL (32-36); Mean Corpuscular Hemoglobin 27.7 pg (27.0-31.0); Mean Corpuscular Volume 81.7 fL (78.0-102.0); Platelet Count Result 223 K/mm3 (150-420); Red Blood Count 4.04 M/mm3 (4.70-6.10); White Blood Count 2.6 K/mm3 (4.8-10.8)
[2025-03-20 08:45] LABS: Alanine Aminotransferase 35 U/L (6-50); Albumin Level 3.8 g/dL (3.5-5.1); Alkaline Phosphatase 76 U/L (38-126); Anion Gap 10 mmol/L (4-12); Aspartate Amino Transferase 39 U/L (17-59); Bilirubin,Total 0.7 mg/dL (0.2-1.3); Blood Urea Nitrogen 15 mg/dL (9-20); Calcium 9.0 mg/dL (8.4-10.2); Carbon Dioxide 27 mmol/L (22-30); Chloride 103 mmol/L (98-107); Estimated CRCL calculation 92 ml/min; Estimated Glomerular Filt Rate > 60; Glucose 132 mg/dL (65-110); Osmolality Calculated 292 mOsm/kg (285-295); Potassium 3.7 mmol/L (3.4-5.0); Sodium 140 mmol/L (137-145); Total Protein 6.5 g/dL (6.3-8.2)
--- OUTSIDE RECORDS SUMMARY | 2025-03-20 09:02 | XMS_ITS | Encounter Summary ---
Author Organization [facility] Address [address] [place] [address] Phone Care Team Providers Care Product Test Specialist Name Role Phone Shasta Sena MD Unavailable [phone] No, Physician Primary Care Provider [phone] Candido Hayes DO Primary Care Provider Encounter [...] on file Legal Sex Male 10:05 AM CRYSTALIZER TENDER Gender Identity Male 05/30/2023 9:41 PM CRYSTALIZER TENDER Sexual Orientation Straight 05/30/2023 9: 41 PM CRYSTALIZER TENDER documented as of this encounter Plan of Treatment Not on file documented as of this encounter Procedures Procedure Name Priority Date/Time Associated Diagnosis Comments SCAN - RADIOLOGY/IMAGING 10/14/2023 documented in this encounter Results * SCAN - RADIOLOGY/IMAGING (10/14/2023) Anatomical Region Laterality Modality Other us Provider Scanning Final Result documented in this encounter Visit Diagnoses Not on filedocumented in this encounter Care Teams Product Test Specialist Relationship Specialty Start Date End Date No, Physician PCP - General 05/06/23 08/27/24 Candido Hayes DO [address] [place] [address] PCP - General Family Medicine 08/28/24 Shasta Sena MD [address] [facility] [address] [place] [address] Medical Oncologist/Pillow Filler Medical Oncology 05/05/23 documented as of this encounter
--- OUTSIDE RECORDS SUMMARY | 2025-03-20 09:02 | XMS_ITS | Clinical Summary ---
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 Ashford, [place], [place]. 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 Gender Identity Male 05/30/2023 9:41 PM PRINTED CIRCUIT BOARD PCB DESIGNER Sexual Orientation Straight 05/30/2023 9: 41 PM PRINTED CIRCUIT BOARD PCB DESIGNER Obstetrics History Last Filed Vital Signs Vital Sign Reading Time Taken Comments Blood Pressure 144/81 06/30/2023 11:15 AM PRINTED CIRCUIT BOARD PCB DESIGNER Pulse 81 06/30/2023 11:15 AM PRINTED CIRCUIT BOARD PCB DESIGNER Temperature 36.6 C (97.8 F) 06/30/2023 11:15 AM PRINTED CIRCUIT BOARD PCB DESIGNER Respiratory Rate 18 06/30/2023 11:15 AM PRINTED CIRCUIT BOARD PCB DESIGNER Oxygen Saturation 96% 06/30/2023 11:15 AM PRINTED CIRCUIT BOARD PCB DESIGNER Inhaled Oxygen Concentration - - Weight 67.9 kg (149 lb 9.6 oz) 06/30/2023 11:15 AM PRINTED CIRCUIT BOARD PCB DESIGNER Height 167.6 cm (5' 6) 04/28/2023 11:20 [...] Screening Completed 08/26/1999 , 03/07/1999, 02/07/1999 Insurance [facility] Advance Directives For more information, please contact: [phone] * Full Code (Latest Code Status on File) Date Activated Date Inactivated Comments 04/28/2023 11:03 AM 05/05/2023 7:19 PM Care Teams Heating And Ventilating Tender Relationship Specialty Start Date End Date Candido Hayes DO [address] [place] [address] PCP - General Family Medicine 08/28/24 Shasta Sena MD [address] [facility] [address] [place] [address] Medical Oncologist/Rinkman Medical Oncology 05/05/23
--- OUTSIDE RECORDS SUMMARY | 2025-03-20 09:02 | XMS_ITS ---
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 Ashford, [place], [place]. S/p ABVD (2 cycles) with progression [...]
[2025-03-20 09:15] VITALS: BP 120/67; PULSE 72; RESP 14
[2025-03-20] MEDS: GEMCITABINE HCL IVPB (09:21)
[2025-03-20] MEDS: SODIUM CHLORIDE 0.9% IVPB (09:21)
[2025-03-20] MEDS: SODIUM CHLORIDE 0.9% IV 250 ML 10 ML IVPB (09:27)
[2025-03-20] MEDS: HEPARIN SODIUM LOCK FLUSH 500 UNITS/5 ML SYRINGE IV PUSH (09:52)
[2025-03-20] MEDS: PEGFILGRASTIM (ONPRO KIT) 6 MG/0.6 ML SYRINGE SUB-Q (09:52)
--- NOTE | 2025-03-20 09:55 | PC.NURSE ---
Tolerated Gemcitabine infusion treatment well. Will be leaving with good understanding Edna pulido.
== END 2025-03-20 08:14 | disposition home or self-care (01) ==
PROVIDERS: PCP Family Medicine; Visit Provider Internal Medicine Hematology
DX: Z51.11 Encounter for antineoplastic chemotherapy (principal); C81.70 Other Hodgkin lymphoma, unspecified site; D70.8 Other neutropenia
CPT/HCPCS: 36415; 36591; 80053; 85027; 96372; 96377; 96413; J2506; J7050; J9201

== ENCOUNTER 2025-04-10 09:56 | Outpatient (CLI) | payer MEDICAID, SELFPAY ==
[2025-04-10 10:12] VITALS: BMI 23.8
[2025-04-10 10:14] LABS: Hematocrit 38.0 % (40.0-54.0); Hemoglobin 13.0 g/dL (14.0-18.0); Mean Corpuscular HGB Conc 34.2 g/dL (32-36); Mean Corpuscular Hemoglobin 28.3 pg (27.0-31.0); Mean Corpuscular Volume 82.6 fL (78.0-102.0); Platelet Count Result 328 K/mm3 (150-420); Red Blood Count 4.60 M/mm3 (4.70-6.10); White Blood Count 8.7 K/mm3 (4.8-10.8)
[2025-04-10 10:29] LABS: Alanine Aminotransferase 22 U/L (6-50); Albumin Level 4.3 g/dL (3.5-5.1); Alkaline Phosphatase 79 U/L (38-126); Anion Gap 11 mmol/L (4-12); Aspartate Amino Transferase 48 U/L (17-59); Bilirubin,Total 0.9 mg/dL (0.2-1.3); Blood Urea Nitrogen 20 mg/dL (9-20); Calcium 9.8 mg/dL (8.4-10.2); Carbon Dioxide 28 mmol/L (22-30); Chloride 99 mmol/L (98-107); Estimated CRCL calculation 70 ml/min; Estimated Glomerular Filt Rate > 60; Glucose 107 mg/dL (65-110); Osmolality Calculated 288 mOsm/kg (285-295); Potassium 4.0 mmol/L (3.4-5.0); Sodium 138 mmol/L (137-145); Total Protein 7.6 g/dL (6.3-8.2)
[2025-04-10 10:30] LABS: Band Neutrophils Percent 0 % (0-6); Lymphocytes Absolute Manual 1.56 K/mm3 (1.1-4.5); Lymphocytes Percent Manual 18 % (18-44); Monocytes Absolute Manual 1.91 K/mm3 (0.1-0.90); Monocytes Percent Manual 22 % (3-9); Neutrophils Absolute Manual 5.22 K/mm3 (1.3-6.7); Neutrophils Percent Manual 60 % (46-73); Total Cells Counted 100
[2025-04-10] MEDS: SODIUM CHLORIDE 0.9% IV 250 ML 10 ML IVPB (10:30)
[2025-04-10 10:38] VITALS: BP 115/67; PULSE 88; RESP 14; TEMP 36.9; O2SAT 97
--- OUTSIDE RECORDS SUMMARY | 2025-04-10 10:42 | XMS_ITS ---
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 Ashford, [place], [place]. S/p ABVD (2 cycles) with progression [...]
--- OUTSIDE RECORDS SUMMARY | 2025-04-10 10:42 | XMS_ITS | Encounter Summary ---
Author Organization [facility] Address [facility] [place] [address] Care Team Providers Care Bank Compliance Officer Name Role Phone TrentonSoledad hammerlexis DENNISON Primary Care Provider [phone] Ambrocio Ashford MD Unavailable [phone] Reason for Visit * Reason Onset Date Comments Preprocedure Call 05/16/2024 Spoke with thasi mcgill mother-I let her know that patient [...] Telephone [facility] Interventional Radiology [address] [place] [address] Carin Hassan, RN Preprocedure Call [...] week 04/24/2023 How often do you attend religion or confucianism serv ices? Never 04/24/2023 Do you belong to any clubs o r organizations such as religion groups, unions, fraternal or athletic groups, or [...] move on to questions 3-9 0 04/14/2022 [facility] [place] of Occupat ional Health - Occupational Stress [...] to sleep or slept in a senior care (including now)? No 04/24/2023 Sex and Gender Information Value Date Recorded Sex Assigned at Male 11/20/2024 12:26 PM CDT Legal Sex Male 5:44 PM VELVET CUTTER Gender Identity Male 04/14/2022 9:23 PM CDT [...] documented as of this encounter Care Teams Bank Compliance Officer Relationship Specialty Start Date End Date Candido Hayes DO [address] [place] [address] PCP - General FAMILY PRACTICE 04/14/22 Ambrocio Ashford MD [address] [place] [address] INTERNAL MEDICINE 10/27/22 documented as of this encounter
--- OUTSIDE RECORDS SUMMARY | 2025-04-10 10:42 | XMS_ITS | Encounter Summary ---
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 Gender Identity Male 05/30/2023 9:41 PM MACHINE CLOTHING WORKER Sexual Orientation Straight 05/30/2023 9: 41 PM MACHINE CLOTHING WORKER documented as of this encounter Plan of Treatment Not on file documented as of this encounter Procedures Procedure Name Priority Date/Time Associated Diagnosis Comments SCAN - RADIOLOGY/IMAGING 10/14/2023 documented in this encounter Results * SCAN - RADIOLOGY/IMAGING (10/14/2023) Anatomical Region Laterality Modality Other us Provider Scanning Final Result documented in this encounter Visit Diagnoses Not on filedocumented in this encounter Care Teams Wooden Fence Erector Relationship Specialty Start Date End Date No, Physician PCP - General 05/06/23 08/27/24 Candido Hayes DO [address] [place] [address] PCP - General Family Medicine 08/28/24 Shasta Sena MD [address] [facility] [address] [place] [address] Medical Oncologist/World Travel Counselor Medical Oncology 05/05/23 documented as of this encounter
--- OUTSIDE RECORDS SUMMARY | 2025-04-10 10:42 | XMS_ITS | Clinical Summary ---
Author Organization [facility] Address [facility] [place] [address] Care Team Providers Care Looping Machine Operator Name Role Phone TrentonCandido hammer Primary Care Provider [phone] Ambrocio Ashford MD Unavailable [phone] Allergies No known active allergies Medications HYDROmorphone (DILAUDID) 2 MG tablet Take 1 tablet (2 mg total) by mouth every 3 (three) hours as needed. 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 Never 04/24/2023 Do you belong to any clubs o r organizations such as mandaeism groups, unions, fraternal or athletic groups, or [...] move on to questions 3-9 0 04/14/2022 [facility] [place] of Occupat ional Health - Occupational Stress [...] place to sleep or slept in a usp (including now)? No 04/24/2023 Sex and Gender Information Value Date Recorded Sex Assigned at Male 11/20/2024 12:26 PM CDT Legal Sex Male 5:44 PM LIBRARY CIRCULATION CLERK Gender Identity Male 04/14/2022 9:23 PM [...] home upon discharge Lifestyle No Rama Chahal, custom dressmaker - family caregiver with be involved in care transitions and discharge planning Lifestyle No Catrina Tyler loan officer Procedure Name Priority Date/Time Associated Diagnosis Comments PET WHOLE BODY INITIAL Routine 03/30/2025 11:28 AM CDT Hodgkin's disease ([facility]) POCT GLUCOSE - DOCKED DEVICE Routine 03/30/2025 10:04 AM CDT from Last 3 Months Results * PET WHOLE BODY INITIAL (03/30/2025 11:28 AM CDT) Anatomical Region Laterality Modality Body Positron Emissio n Tomography (PET), Positron Emission Tomography (PET) 03/30/2025 11:4 0 AM CDT Impressions 03/30/2025 4:51 PM CDT IMPRESSION: 1. Marked partial metabolic response to therapy with interval decrease or resolution of FDG uptake at the previous sites of involvement. Mild to moderate residual FDG activity associated with decreasing left axillary lymph nodes is greater than liver. 5PS=4 2. Diffuse FDG uptake throughout marrow is favored to be reactive related to interval therapy. 3. No new focal or increasing uptake along the right anterior globe to suggest recurrent or worsening squamous neoplasia at this location. The attending radiologist has reviewed the image(s) and agrees with the content of this report. Ordered By: AMANDA OSPINA Interpreted By: Get Chavez MD, 03/30/2025 11:40 AM Narrative 03/30/2025 4:51 PM CDT [place] [address] EXAMINATION: TUMOR FDG-PET/CT IMAGING DATE OF STUDY: 03/30/2025 SCANNER: [facility] RADIOPHARMACEUTICAL: 12 mCi F-18 Fluorodeoxyglucose (FDG) i.v. Injection site: Right antecubital fossa HISTORY: Hodgkin's lymphoma diagnosed 02/10/2022 previously treated with ABVD x2 and BEACOPP x3, after which she was lost to follow-up return with diffuse metastatic disease. Then treated with Pembrolizomab-GVD with good response. Diagnosed with progression in May 2024. Most recently treated with Brentuximab and Nivolumab. 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 Study is requested for treatment monitoring during therapy. Subsequent treatment strategy. TECHNIQUE: The patient's fasting blood glucose level, measured by glucometer before injection of FDG, was 115 mg/dL. -Gastroview was not given. After intravenous administration of FDG, noncontrast CT images were obtained for attenuation correction and for fusion with emission PET images to allow for anatomical localization of PET findings. Emission PET images were then obtained. The study was interpreted on the [employer] workstation. The mean liver SUV (reported for senior supplier quality engineer purposes) is 1.8. The total scanned area was skull vertex to the proximal thighs. Images of the body were obtained starting 50 minutes after injection of tracer. COMPARISON: PET/CT 12/20/2024, 09/28/2024. FINDINGS: The liver has a maximum SUV of 2.2. The cardiac blood pool has a maximum SUV of 2.1 Since the prior exam, there is significant interval improvement in FDG uptake in the previously described enlarged left axillary lymph nodes. The previously measured node has decreased in size to approximately 0.8 x 1.1 cm from 2.3 x 1.8 cm previously. The most metabolically active left axillary lymph node now has a maximum SUV of 4.2, 8.9 previously. The prominent metabolically active upper abdominal lymph nodes demonstrate decreased metabolic activity since the prior PET/CT, 1.9 compared to 3.3 previously. No new hypermetabolic lymphadenopathy in the neck, chest, abdomen, or pelvis. There is symmetric tonsillar FDG uptake tonsillar FDG uptake which may be infectious or inflammatory. There is a right level 4 cervical chain lymph node which appears slightly more prominent in size compared to the prior exam at 0.6 cm, which may be due to volume averaging on prior exams. This lymph node demonstrates decreased FDG uptake compared to 09/28/2024, 1.9 versus 3 previously. There are multifocal lytic and sclerotic osseous lesions with low-level or absent FDG activity including significantly decreased uptake in the L4 vertebral body lesion seen on the prior exam. These are favored to reflect treated metastases. Otherwise, there is diffusely increased uptake throughout the axial and appendicular skeleton which is new from the prior exam and is likely reactive secondary to interval therapy. No superimposed focal intense uptake to suggest a new osseous lesion. No focal uptake is seen along the right anterior globe which is suggestive of persistent improvement in this lesion. Surgical changes from prior right inguinal hernia repair with physiologic FDG uptake in this region. The most FDG avid lesion is a left axillary lymph node which has a maximum standard uptake value of 4.2 and approximate axial dimensions of 1 x 1 cm. The uptake in this lesion is slightly greater than background liver parenchyma. (5PS=4) Additional CT findings: Right-sided chest port with distal tip terminating in the right atrium. Pathologic fractures involving the C4, L4, and T11 vertebral bodies. Minimal multilevel spondylosis. 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 Procedure Note Alexandria Christiansen MD - 03/30/[address] [address] EXAMINATION: TUMOR FDG-PET/CT IMAGING DATE OF STUDY: 03/30/2025 SCANNER: [facility] RADIOPHARMACEUTICAL: 12 mCi F-18 Fluorodeoxyglucose (FDG) i.v. Injectionsite: Right antecubital fossa HISTORY: Hodgkin's lymphoma diagnosed 02/10/2022 previously treated withABVD x2 and BEACOPP x3, after which she was lost to follow-up return withdiffuse metastatic disease. Then treated with Pembrolizomab-GVD with goodresponse. Diagnosed with progression in May 2024. Most recentlytreated with Brentuximab and Nivolumab. He also has a history of malignantneoplasm of the right conjunctiva most consistent with ocular surfacesquamous neoplasia. Study is requested for treatment monitoring duringtherapy. Subsequent treatment strategy. TECHNIQUE: The patient's fasting blood glucose level, measured byglucometer before injection of FDG, was 115 mg/dL. -Gastroview was notgiven. After intravenous administration of FDG, noncontrast CT imageswere obtained for attenuation correction and for fusion with emission PETimages to allow for anatomical localization of PET findings. EmissionPET images were then obtained. The study was interpreted on the [employer]workstation. The mean liver SUV (reported for senior supplier quality engineer purposes)is 1.8. The total scanned area was skull vertex to the proximal thighs. Images ofthe body were obtained starting 50 minutes after injection of tracer. COMPARISON: PET/CT 12/20/2024, 09/28/2024. FINDINGS: The liver has a maximum SUV of 2.2. The cardiac blood pool has a maximumSUV of 2.1 Since the prior exam, there is significant interval improvement in FDGuptake in the previously described enlarged left axillary lymph nodes. Thepreviously measured node has decreased in size to approximately 0.8 x 1.1cm from 2.3 x 1.8 cm previously. The most metabolically active leftaxillary lymph node now has a maximum SUV of 4.2, 8.9 previously. The prominent metabolically active upper abdominal lymph nodes demonstratedecreased metabolic activity since the prior PET/CT, 1.9 compared to 3.3previously. No new hypermetabolic lymphadenopathy in the neck, chest, abdomen, orpelvis. There is symmetric tonsillar FDG uptake tonsillar FDG uptake which may beinfectious or inflammatory. There is a right level 4 cervical chain lymphnode which appears slightly more prominent in size compared to the priorexam at 0.6 cm, which may be due to volume averaging on prior exams. Thislymph node demonstrates decreased FDG uptake compared to 09/28/2024, 1.9versus 3 previously. There are multifocal lytic and sclerotic osseous lesions with low-level orabsent FDG activity including significantly decreased uptake in the I1vsvjnplai body lesion seen on the prior exam. These are favored to reflecttreated metastases. Otherwise, there is diffusely increased uptakethroughout the axial and appendicular skeleton which is new from the priorexam and is likely reactive secondary to interval therapy. No superimposedfocal intense uptake to suggest a new osseous lesion. No focal uptake is seen along the right anterior globe which is suggestiveof persistent improvement in this lesion. Surgical changes from prior right inguinal hernia repair with physiologicFDG uptake in this region. The most FDG avid lesion is a left axillary lymph node which has a maximumstandard uptake value of 4.2 and approximate axial dimensions of 1 x 1 cm.The uptake in this lesion is slightly greater than background liverparenchyma. (5PS=4) Additional CT findings: Right-sided chest port with distal tip terminatingin the right atrium. Pathologic fractures involving the C4, L4, and D39otmxfczyp bodies. Minimal multilevel spondylosis. Chronic nonunited leftL3 transverse process fracture. IMPRESSION: 1. Marked partial metabolic response to therapy with interval decrease orresolution of FDG uptake at the previous sites of involvement. Mild tomoderate residual FDG activity associated with decreasing left axillarylymph nodes is greater than liver. 5PS=4 2. Diffuse FDG uptake throughout marrow is favored to be reactive relatedto interval therapy. 3. No new focal or increasing uptake along the right anterior globe tosuggest recurrent or worsening squamous neoplasia at this location. The attending radiologist has reviewed the image(s) and agrees with thecontent of this report. 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
--- OUTSIDE RECORDS SUMMARY | 2025-04-10 10:42 | XMS_ITS | Clinical Summary ---
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 Ashford, [place], [place]. S/p ABVD (2 cycles) with progression [...] surgery but would like Neuro evaluation - RAAY, JAVIER, ANCA, ESR, CRP, RF/CCP, RPR, HIV, Crypto Ag - TSPOT - LP reasonable, deferred to onc whether masses/dural enhancement are related to HL - Also consider Rad Onc consult for pain control - Routine neuro checks - Pharmacologic pain regimen described elsewhere Encounters Date Type Department Care Team Description 02/12/2025 Telephone [facility] Medicine Ophthalmology [address] [facility] 1st [place] [address] Floresita Chavez MD 01/12/2025 Telephone [facility] Medicine Ophthalmology Formerly [facility] [place] [address] Floresita Chavez MD from Last 3 Months [...] on file Legal Sex Male 10:05 AM FINANCIAL SERVICES OFFICER Gender Identity Male 05/30/2023 9:41 PM FINANCIAL SERVICES OFFICER Sexual Orientation Straight 05/30/2023 9: 41 PM FINANCIAL SERVICES OFFICER Obstetrics History Last Filed Vital Signs Vital Sign Reading Time Taken Comments Blood Pressure 144/81 06/30/2023 11:15 AM FINANCIAL SERVICES OFFICER Pulse 81 06/30/2023 11:15 AM FINANCIAL SERVICES OFFICER Temperature 36.6 C (97.8 F) 06/30/2023 11:15 AM FINANCIAL SERVICES OFFICER Respiratory Rate 18 06/30/2023 11:15 AM FINANCIAL SERVICES OFFICER Oxygen Saturation 96% 06/30/2023 11:15 AM FINANCIAL SERVICES OFFICER Inhaled Oxygen Concentration - - Weight 67.9 kg (149 lb 9.6 oz) 06/30/2023 11:15 AM FINANCIAL SERVICES OFFICER Height 167.6 cm (5' 6) 04/28/2023 11:20 [...] Screening Completed 08/26/1999 , 03/07/1999, 02/07/1999 [facility] Advance Directives For more information, please contact: [phone] * Full Code (Latest Code Status on File) Date Activated Date Inactivated Comments 04/28/2023 11:03 AM 05/05/2023 7:19 PM Care Teams Jewelry Department Supervisor Relationship Specialty Start Date End Date Candido Hayes DO [address] [place] [address] PCP - General Family Medicine 08/28/24 Shasta Sena MD [address] [facility] [address] [place] [address] Medical Oncologist/Window Glazier Helper Medical Oncology 05/05/23
--- OUTSIDE RECORDS SUMMARY | 2025-04-10 10:42 | XMS_ITS | Encounter Summary ---
Author Organization [facility] Address [address] [place] [address] Care Team Providers Care Snout Puller Name Role Phone Jazmin TysonP- Primary Care Provider [phone] Candido Hayes DO Primary Care Provider [phone] Ambrocio Ashford MD Unavailable [phone] Encounter Details Date Type Department Care Team (Late st Contact Info) Description 12/10/2018 Abstract SFL CONVERSION [address] [place] [address] , Generic Conversion, Social History Tobacco Use Types Packs/Day Years Used Date Smoking Tobacco: Never Assessed Sex and Gender Information Value Date Recorded Sex Assigned at Male 11/20/2024 12:26 PM CDT Legal Sex Male 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
[2025-04-10] MEDS: ONDANSETRON INJ 16 MG, dexAMETHasone SOD 4 MG/ML INJ 12 MG in SODIUM CHLORIDE 0.9% IV 8... 400 MG IVPB (11:00)
[2025-04-10 11:03] LABS: Thyroid Stimulating Hormone 4.300 uIU/mL (0.465-4.680)
[2025-04-10] MEDS: PEMBROLIZUMAB 200 MG in SODIUM CHLORIDE 0.9% IV 92 ML IVPB (11:37)
[2025-04-10] MEDS: SODIUM CHLORIDE 0.9% IVPB (12:07)
[2025-04-10] MEDS: GEMCITABINE HCL IVPB (12:07)
[2025-04-10] MEDS: HEPARIN SODIUM LOCK FLUSH 500 UNITS/5 ML SYRINGE IV PUSH (12:38)
[2025-04-10 12:52] VITALS: BP 125/74; PULSE 72; RESP 14; TEMP 36.6; O2SAT 97
--- NOTE | 2025-04-10 12:54 | PC.NURSE ---
Patient tolerated treatment infusions well today. SEE MAR/patient care list.
== END 2025-04-10 09:57 | disposition home or self-care (01) ==
PROVIDERS: PCP Family Medicine; Visit Provider Internal Medicine Hematology
DX: Z51.11 Encounter for antineoplastic chemotherapy (principal); C81.70 Other Hodgkin lymphoma, unspecified site; D70.8 Other neutropenia
CPT/HCPCS: 36591; 80053; 82533; 84443; 85025; 96367; 96375; 96413; 96417; J1100; J2405; J7050; J9201; J9271

== ENCOUNTER 2025-04-18 10:27 | Outpatient (CLI) | payer MEDICAID, SELFPAY ==
[2025-04-18 10:30] VITALS: BMI 24.5
[2025-04-18 10:49] LABS: Hematocrit 30.9 % (40.0-54.0); Hemoglobin 10.3 g/dL (14.0-18.0); Mean Corpuscular HGB Conc 33.3 g/dL (32-36); Mean Corpuscular Hemoglobin 28.1 pg (27.0-31.0); Mean Corpuscular Volume 84.4 fL (78.0-102.0); Platelet Count Result 164 K/mm3 (150-420); Red Blood Count 3.66 M/mm3 (4.70-6.10); White Blood Count 3.9 K/mm3 (4.8-10.8)
[2025-04-18 11:02] LABS: Alanine Aminotransferase 23 U/L (6-50); Albumin Level 3.5 g/dL (3.5-5.1); Alkaline Phosphatase 57 U/L (38-126); Anion Gap 3 mmol/L (4-12); Aspartate Amino Transferase 34 U/L (17-59); Bilirubin,Total 0.4 mg/dL (0.2-1.3); Blood Urea Nitrogen 11 mg/dL (9-20); Calcium 9.3 mg/dL (8.4-10.2); Carbon Dioxide 30 mmol/L (22-30); Chloride 106 mmol/L (98-107); Estimated Glomerular Filt Rate > 60; Glucose 91 mg/dL (65-110); Osmolality Calculated 287 mOsm/kg (285-295); Potassium 4.0 mmol/L (3.4-5.0); Sodium 139 mmol/L (137-145); Total Protein 5.9 g/dL (6.3-8.2)
[2025-04-18 11:05] LABS: Band Neutrophils Percent 0 % (0-6); Basophils Absolute Manual 0.00 K/mm3 (0-0.1); Basophils Percent Manual 0 % (0-1); Eosinophils Absolute Manual 0.42 K/mm3 (0.02-0.50); Eosinophils Percent Manual 11 % (1-6); Lymphocytes Absolute Manual 1.05 K/mm3 (1.1-4.5); Lymphocytes Percent Manual 27 % (18-44); Monocytes Absolute Manual 0.54 K/mm3 (0.1-0.90); Monocytes Percent Manual 14 % (3-9); Neutrophils Absolute Manual 1.87 K/mm3 (1.3-6.7); Neutrophils Percent Manual 48 % (46-73); Total Cells Counted 100
[2025-04-18] MEDS: COSYNTROPIN 0.25 MG/ML VIAL IV PUSH (11:05)
[2025-04-18 11:13] VITALS: BP 126/75; PULSE 76; RESP 14; TEMP 36.6; O2SAT 97
[2025-04-18] MEDS: SODIUM CHLORIDE 0.9% IV 250 ML 10 ML IVPB (11:30)
[2025-04-18 11:33] LABS: Thyroid Stimulating Hormone 2.490 uIU/mL (0.465-4.680)
[2025-04-18] MEDS: ONDANSETRON INJ 16 MG, dexAMETHasone SOD 4 MG/ML INJ 12 MG in SODIUM CHLORIDE 0.9% IV 8... 400 MG IVPB (11:56)
[2025-04-18] MEDS: SODIUM CHLORIDE 0.9% IVPB (12:10)
[2025-04-18] MEDS: GEMCITABINE HCL IVPB (12:10)
--- OUTSIDE RECORDS SUMMARY | 2025-04-18 12:16 | XMS_ITS ---
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 Ashford, [place], [place]. S/p ABVD (2 cycles) with progression [...]
--- OUTSIDE RECORDS SUMMARY | 2025-04-18 12:16 | XMS_ITS | Encounter Summary ---
Author Organization [facility] Address [address] [place] [address] Phone Care Team Providers Care Overlay Plastician Name Role Phone Shasta Sena MD Unavailable [phone] No, Physician Primary Care Provider [phone] Candido Hayes DO Primary Care Provider Encounter [...] on file Legal Sex Male 10:05 AM INDUSTRIAL CHEMIST Gender Identity Male 05/30/2023 9:41 PM INDUSTRIAL CHEMIST Sexual Orientation Straight 05/30/2023 9: 41 PM INDUSTRIAL CHEMIST documented as of this encounter Plan of Treatment Not on file documented as of this encounter Procedures Procedure Name Priority Date/Time Associated Diagnosis Comments SCAN - RADIOLOGY/IMAGING 10/14/2023 documented in this encounter Results * SCAN - RADIOLOGY/IMAGING (10/14/2023) Anatomical Region Laterality Modality Other us Provider Scanning Final Result documented in this encounter Visit Diagnoses Not on filedocumented in this encounter Care Teams Overlay Plastician Relationship Specialty Start Date End Date No, Physician PCP - General 05/06/23 08/27/24 Candido Hayes DO [address] [place] [address] PCP - General Family Medicine 08/28/24 Shasta Sena MD [address] [facility] [address] [place] [address] Medical Oncologist/Rn Icu Medical Oncology 05/05/23 documented as of this encounter
--- OUTSIDE RECORDS SUMMARY | 2025-04-18 12:16 | XMS_ITS | Clinical Summary ---
Author Organization 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 S/p ABVD (2 cycles) with progression [...] Type Department Care Team Description 02/12/2025 Telephone [facility] Medicine Ophthalmology [address] [place] [address] 1st [place] [address] Floresita Chavez MD from Last 3 Months [...] on file Legal Sex Male 10:05 AM ANODE BUILDER Gender Identity Male 05/30/2023 9:41 PM ANODE BUILDER Sexual Orientation Straight 05/30/2023 9: 41 PM ANODE BUILDER Obstetrics History Last Filed Vital Signs Vital Sign Reading Time Taken Comments Blood Pressure 144/81 06/30/2023 11:15 AM ANODE BUILDER Pulse 81 06/30/2023 11:15 AM ANODE BUILDER Temperature 36.6 C (97.8 F) 06/30/2023 11:15 AM ANODE BUILDER Respiratory Rate 18 06/30/2023 11:15 AM ANODE BUILDER Oxygen Saturation 96% 06/30/2023 11:15 AM ANODE BUILDER Inhaled Oxygen Concentration - - Weight 67.9 kg (149 lb 9.6 oz) 06/30/2023 11:15 AM ANODE BUILDER Height 167.6 cm (5' 6) 04/28/2023 11:20 [...] Screening Completed 08/26/1999 , 03/07/1999, 02/07/1999 Insurance [facility] Advance Directives For more information, please contact: [phone] * Full Code (Latest Code Status on File) Date Activated Date Inactivated Comments 04/28/2023 11:03 AM 05/05/2023 7:19 PM Care Teams Double Reamer Operator Relationship Specialty Start Date End Date Candido Hayes DO [facility] [place] [address] PCP - General Family Medicine 08/28/24 Shasta Sena MD [address] [facility] [address] [place] [address] Medical Oncologist/Helper Metal Hanging Medical Oncology 05/05/23
[2025-04-18] MEDS: HEPARIN SODIUM LOCK FLUSH 500 UNITS/5 ML SYRINGE IV PUSH (12:42)
[2025-04-18] MEDS: PEGFILGRASTIM (ONPRO KIT) 6 MG/0.6 ML SYRINGE SUB-Q (13:58)
[2025-04-18 14:00] VITALS: BP 129/73; PULSE 78; RESP 14; TEMP 36.6; O2SAT 97
--- NOTE | 2025-04-18 14:03 | PC.NURSE ---
Patient tolerated chemo treatment today. Is going home on Onpro Neulasta and has no issues or questions about it. This is cycle 3.
== END 2025-04-18 10:28 | disposition home or self-care (01) ==
PROVIDERS: PCP Family Medicine; Visit Provider Internal Medicine Hematology
DX: Z51.11 Encounter for antineoplastic chemotherapy (principal); C81.90 Hodgkin lymphoma, unspecified, unspecified site; R79.89 Other specified abnormal findings of blood chemistry
CPT/HCPCS: 36415; 36591; 80053; 82533; 84443; 85025; 96367; 96372; 96375; 96377; 96413; J0834; J1100; J2405; J2506; J7050; J9201

== ENCOUNTER 2025-05-10 09:06 | Outpatient (CLI) | payer OTHER, SELFPAY ==
[2025-05-10 09:10] VITALS: BMI 23.6
[2025-05-10 09:24] LABS: Hematocrit 39.2 % (40.0-54.0); Hemoglobin 13.5 g/dL (14.0-18.0); Immature Granulocyte Percent A 0.4 % (0.0-0.0); Lymphocytes Absolute Auto 0.42 K/mm3 (1.10-4.50); Mean Corpuscular HGB Conc 34.4 g/dL (32-36); Mean Corpuscular Hemoglobin 29.2 pg (27.0-31.0); Mean Corpuscular Volume 84.8 fL (78.0-102.0); Nucleated Red Blood Cells Absolute Auto 0.00 K/mm3 (0.00-0.00); Nucleated Red Blood Cells Perc 0.0 % (0-0.0); Platelet Count Result 265 K/mm3 (150-420); Red Blood Count 4.62 M/mm3 (4.70-6.10); White Blood Count 12.4 K/mm3 (4.8-10.8)
[2025-05-10 09:36] LABS: Alanine Aminotransferase 21 U/L (6-50); Albumin Level 4.6 g/dL (3.5-5.1); Alkaline Phosphatase 78 U/L (38-126); Anion Gap 9 mmol/L (4-12); Aspartate Amino Transferase 32 U/L (17-59); Bilirubin,Total 1.7 mg/dL (0.2-1.3); Blood Urea Nitrogen 14 mg/dL (9-20); Calcium 9.3 mg/dL (8.4-10.2); Carbon Dioxide 25 mmol/L (22-30); Chloride 106 mmol/L (98-107); Estimated CRCL calculation 99 ml/min; Estimated Glomerular Filt Rate > 60; Glucose 146 mg/dL (65-110); Osmolality Calculated 293 mOsm/kg (285-295); Potassium 3.8 mmol/L (3.4-5.0); Sodium 140 mmol/L (137-145); Total Protein 7.1 g/dL (6.3-8.2)
[2025-05-10 09:46] VITALS: BP 141/78; PULSE 92; RESP 14; TEMP 36.6; O2SAT 99
[2025-05-10] MEDS: ONDANSETRON INJ 16 MG, dexAMETHasone SOD 4 MG/ML INJ 12 MG in SODIUM CHLORIDE 0.9% IV 8... 400 MG IVPB (10:00)
[2025-05-10] MEDS: SODIUM CHLORIDE 0.9% IV 250 ML 10 ML IVPB (10:00)
[2025-05-10 10:07] LABS: Thyroid Stimulating Hormone 0.379 uIU/mL (0.465-4.680)
[2025-05-10] MEDS: PEMBROLIZUMAB 200 MG in SODIUM CHLORIDE 0.9% IV 92 ML IVPB (10:30)
[2025-05-10] MEDS: SODIUM CHLORIDE 0.9% IVPB (11:00)
[2025-05-10] MEDS: GEMCITABINE HCL IVPB (11:00)
[2025-05-10] MEDS: HEPARIN SODIUM LOCK FLUSH 500 UNITS/5 ML SYRINGE IV PUSH (11:30)
--- NOTE | 2025-05-10 11:36 | PC.NURSE ---
Patient tolerated treatment well today. SEE MAR/patient care notes.
[2025-05-10 11:37] VITALS: BP 131/78; PULSE 88; RESP 14; TEMP 36.6; O2SAT 99
--- OUTSIDE RECORDS SUMMARY | 2025-05-10 17:52 | XMS_ITS | Clinical Summary ---
Author Organization 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 Ashford, [place], [place]. S/p ABVD (2 cycles) with progression [...] Type Department Care Team Description 02/12/2025 Telephone [facility] Medicine Ophthalmology [address] [place] [address] 1st [place] [address] Floresita Chavez MD from Last 3 Months [...] on file Legal Sex Male 10:05 AM ARTIFICIAL INSEMINATOR Gender Identity Male 05/30/2023 9:41 PM ARTIFICIAL INSEMINATOR Sexual Orientation Straight 05/30/2023 9: 41 PM ARTIFICIAL INSEMINATOR Last Filed Vital Signs Vital Sign Reading Time Taken Comments Blood Pressure 144/81 06/30/2023 11:15 AM ARTIFICIAL INSEMINATOR Pulse 81 06/30/2023 11:15 AM ARTIFICIAL INSEMINATOR Temperature 36.6 C (97.8 F) 06/30/2023 11:15 AM ARTIFICIAL INSEMINATOR Respiratory Rate 18 06/30/2023 11:15 AM ARTIFICIAL INSEMINATOR Oxygen Saturation 96% 06/30/2023 11:15 AM ARTIFICIAL INSEMINATOR Inhaled Oxygen Concentration - - Weight 67.9 kg (149 lb 9.6 oz) 06/30/2023 11:15 AM ARTIFICIAL INSEMINATOR Height 167.6 cm (5' 6) 04/28/2023 11:20 [...] Screening Completed 08/26/1999 , 03/07/1999, 02/07/1999 Insurance [facility] Advance Directives For more information, please contact: [phone] * Full Code (Latest Code Status on File) Date Activated Date Inactivated Comments 04/28/2023 11:03 AM 05/05/2023 7:19 PM Care Teams Waste Specialist Relationship Specialty Start Date End Date Candido Hayes DO [facility] [place] [address] PCP - General Family Medicine 08/28/24 Shasta Sena MD [address] [facility] [address] [place] [address] Medical Oncologist/Product Support Manager Medical Oncology 05/05/23
--- OUTSIDE RECORDS SUMMARY | 2025-05-10 17:52 | XMS_ITS ---
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 Ashford, [place], [place]. S/p ABVD (2 cycles) with progression [...]
--- OUTSIDE RECORDS SUMMARY | 2025-05-10 17:52 | XMS_ITS | Encounter Summary ---
Author Organization [facility] Address [address] [place] [address] Phone Care Team Providers Care Rn Telephone Triage Name Role Phone Shasta Sena MD Unavailable [phone] No, Physician Primary Care Provider [phone] Candido Hayes DO Primary Care Provider Encounter [...] on file Legal Sex Male 10:05 AM LAB DIRECTOR Gender Identity Male 05/30/2023 9:41 PM LAB DIRECTOR Sexual Orientation Straight 05/30/2023 9: 41 PM LAB DIRECTOR documented as of this encounter Plan of Treatment Not on file documented as of this encounter Procedures Procedure Name Priority Date/Time Associated Diagnosis Comments SCAN - RADIOLOGY/IMAGING 10/14/2023 documented in this encounter Results * SCAN - RADIOLOGY/IMAGING (10/14/2023) Anatomical Region Laterality Modality Other us Provider Scanning Final Result documented in this encounter Visit Diagnoses Not on filedocumented in this encounter Care Teams Rn Telephone Triage Relationship Specialty Start Date End Date No, Physician PCP - General 05/06/23 08/27/24 Candido Hayes DO [address] [place] [address] PCP - General Family Medicine 08/28/24 Shasta Sena MD [address] [facility] [address] [place] [address] Medical Oncologist/Rental Sales Representative Medical Oncology 05/05/23 documented as of this encounter
--- OUTSIDE RECORDS SUMMARY | 2025-05-10 17:52 | XMS_ITS | Encounter Summary ---
Author Organization [facility] Address [facility] [place] [address] Care Team Providers Care Managing Partner Digital Content Marketing [place] Name Role Phone TrentonSoledad hammerlexis DENNISON Primary Care Provider [phone] Ambrocio Ashford MD Unavailable [phone] Reason for Visit * Reason Onset [...] (Late st Contact Info) Description 05/16/2024 Telephone [facility] Interventional Radiology [address] [place] [address] Carin Hassan, RN Preprocedure Call [...] No 04/24/2023 Social Connection and Isolation Panel Answer Date Recorded In a typical week, how many times do you talk on the phone with family, friends, or neighbors? Never 04/24/2023 How often do you get together with friends or re latives? Once a week 04/24/2023 How often do you attend yarsanism or latter day serv ices? Never 04/24/2023 Do you belong [...] move on to questions 3-9 0 04/14/2022 [facility] [place] [facility] - Occupational Stress [...] PM CDT Legal Sex Male 5:44 PM COUNTER TENDER Gender Identity Male 04/14/2022 9:23 PM [...] Status No 04/24/2023 10:00 PM CDT Delphine Fairchild, RN Active * Do you have serious [...] Care Team (Late st Contact Info) Description 05/17/2025 10:00 AM COUNTER TENDER Appointment [facility] PET [address] [place] [address] Dhiraj Hansen MD [address] 1st [place] [address] documented as of this encounter Goals Goal Patient Goal Type Associated Problems Recent Progress Patient-Stated? Author Safety Patient/family will have appropriate support at home upon discharge Lifestyle No Rama Chahal sr. director product management - family caregiver with be involved in [...] documented as of this encounter Care Teams Managing Partner Digital Content Marketing [place] Relationship Specialty Start Date End Date Candido Hayes DO [address] [place] [address] PCP - General FAMILY PRACTICE 04/14/22 Ambrocio Ashford MD [address] [place] [address] INTERNAL MEDICINE 10/27/22 documented as of this encounter
--- OUTSIDE RECORDS SUMMARY | 2025-05-10 17:52 | XMS_ITS | Clinical Summary ---
Author Organization [facility] Address [address] [place] [address] Care Team Providers Care Privacy Attorney Name Role Phone TrentonCandido hammer Primary Care Provider [phone] Ambrocio Ashford MD Unavailable [phone] Allergies No known active allergies Medications HYDROmorphone (DILAUDID) 2 MG tablet Take 1 tablet (2 mg total) by mouth every 3 (three) hours as needed. 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 Never 04/24/2023 Do you belong to any clubs o r organizations such as congregational groups, unions, fraternal or athletic groups, or [...] move on to questions 3-9 0 04/14/2022 [facility] - Occupational [...] PM CDT Legal Sex Male 5:44 PM BODY LINER Gender Identity Male 04/14/2022 9:23 PM CDT [...] 11/20/2024 12:37 PM CDT Plan of Treatment Upcoming Encounters Date Type Department Care Team (Late st Contact Info) Description 05/17/2025 10:00 AM BODY LINER Appointment [facility] [address] [place] [address] Dhiraj Hansen MD [address] 1st Floor Clinic [place], [place] [address] Health Maintenance Due Date Last Done Comments Annual Physical 02/07/1992 Hepatitis C 2007 Pneumococcal Vaccine: Pediatrics (0 to 5 Years) and At-Risk Patients (6 to 49 Years) (1 of 2 - PCV) 02/07/2008 HPV Vaccines (1 - 3-dose SCDM series) 02/07/2016 COVID-19 Vaccine (1 - season) 2025 Influenza Adult (#1) 2025 DTaP, Tdap and Td Vaccines (3 - Td or Tdap) 05/11/2031 05/11/2021, 04/04/2004, 10/03/1993, Additional history exists Hepatitis B Vaccines Completed 08/26/1999, 03/07/1999, 02/07/1999 Hepatitis A Vaccines Aged Out No long er eligible based on patient's age to complete [...] home upon discharge Lifestyle No Rama Chahal, real estate listing consultant - family caregiver with be involved in care transitions and discharge planning Lifestyle No Catrina Tyler client relationship manager Procedure Name Priority Date/Time Associated Diagnosis Comments PET WHOLE BODY INITIAL Routine 03/30/2025 11:28 AM CDT Hodgkin's disease (CMS/HCC HHS/HCC) POCT GLUCOSE - DOCKED DEVICE Routine 03/30/2025 [...] Ordered By: AMANDA OSPINA Interpreted By: Get Cahvez MD, 03/30/2025 11:40 AM Narrative 03/30/2025 4:51 PM CDT [address] [address] EXAMINATION: TUMOR FDG-PET/CT IMAGING DATE OF STUDY: 03/30/2025 SCANNER: [facility] RADIOPHARMACEUTICAL: 12 mCi F-18 Fluorodeoxyglucose (FDG) i.v. [...] before injection of FDG, was 115 mg/dL. MD-Gastroview was not given. After intravenous administration of FDG, noncontrast CT images were obtained for attenuation correction and for fusion with emission PET images to allow for anatomical localization of PET findings. Emission PET images were then obtained. The study was interpreted on the FlyCast workstation. The mean liver SUV (reported for nurse quality purposes) is 1.8. The total scanned area [...] Procedure Note Alexandria Christiansen MD - 03/30/[address] [address] EXAMINATION: TUMOR FDG-PET/CT IMAGING DATE OF STUDY: 03/30/2025 SCANNER: [facility] RADIOPHARMACEUTICAL: 12 mCi F-18 Fluorodeoxyglucose (FDG) i.v. [...] before injection of FDG, was 115 mg/dL. KAISERGastroview was notgiven. After intravenous administration of FDG, noncontrast CT imageswere obtained for attenuation correction and for fusion with emission PETimages to allow for anatomical localization of PET findings. EmissionPET images were then obtained. The study was interpreted on the Sectraworkstation. The mean liver SUV (reported for nurse quality purposes)is 1.8. The total scanned area was [...] activity including significantly decreased uptake in the [id number] body lesion seen on the prior exam. [...] Pathologic fractures involving the C4, L4, and [id number] bodies. Minimal multilevel spondylosis. Chronic nonunited leftL3 [...] By: Get Chavez MD, 03/30/2025 11:40 AM Amanda Ospina MD PET Final Result * (ABNORMAL) POCT glucose (03/30/2025 10:04 AM CDT) GLUCOSE POC 115(H) 70 - 109 03/30/2025 10:[address] [facility] 03/30/2025 10:0 4 AM CDT Dhiraj Hansen MD POCT ORDERABLES - DEV ICE Final Result [facility] [address] [place] [address], [place] [phone] [id number] from Last 3 Months Additional Health Concerns Infection Onset Date Last Indicated MRSA Comment:04/14/22 nose (JJ) 04/16/2022 04/26/2023 Insurance [facility] MEDICAID MEDICAID Advance Directives * Full Code (Latest [...] 11:10 PM 04/06/2022 4:15 PM Care Teams Privacy Attorney Relationship Specialty Start Date End Date Candido Hayes DO [address] [place] [address] PCP - General FAMILY PRACTICE 04/14/22 Ambrocio Ashford MD [address] [place] [address] INTERNAL MEDICINE 10/27/22
--- OUTSIDE RECORDS SUMMARY | 2025-05-10 17:52 | XMS_ITS | Encounter Summary ---
Author Organization [facility] Address [address] [place] [address] Care Team Providers Care Finish Repair Worker Name Role Phone Jazmin Tyson [facility] Primary Care Provider [phone] Candido Hayes DO Primary Care Provider [phone] Ambrocio Ashford MD Unavailable [phone] Encounter Details Date Type Department Care Team (Late st Contact Info) Description 12/10/2018 Abstract SFL CONVERSION [address] [place] [address] , Generic Conversion, Social History Tobacco Use Types Packs/Day Years Used Date Smoking Tobacco: Never Assessed Sex and Gender Information Value Date Recorded Sex Assigned at Male 11/20/2024 12:26 PM CDT Legal Sex Male 5:44 PM DIRECTOR OF CATEGORY MANAGEMENT Gender Identity Male 04/14/2022 9:23 PM CDT Sexual Orientation Straight 04/14/2022 9: 23 PM CDT documented as of this encounter Plan of Treatment Upcoming Encounters Date Type Department Care Team (Late st Contact Info) Description 05/17/2025 10:00 AM DIRECTOR OF CATEGORY MANAGEMENT Appointment [facility] [address] [place] [address] Dhiraj Hansen MD [address] 1st Floor Clinic [place], [place] [address] documented as of this encounter Visit Diagnoses Not on filedocumented in this encounter Additional Health Concerns Infection Onset Date Last Indicated Resolved Time COVID-19 Rule Out 04/05/2022 04/05/2022 04/05/2022 10:30 PM CDT MRSA Comment:04/14/22 nose (JJ) 04/16/2022 04/26/2023 COVID-19 Rule Out 10/27/2022 10/27/2022 10/27/2022 6:37 PM CDT COVID-19 Rule Out 12/15/2022 12/15/2022 12/15/2022 1:07 PM CDT documented as of this encounter Care Teams Finish Repair Worker Relationship Specialty Start Date End Date Jazmin Tyson FNP- [address] [place] [address] PCP - General NURSE PRACTITIONER 05/09/19 04/13/22 Candido Hayes DO [address] [place] [address] PCP - General FAMILY PRACTICE 04/14/22 Ambrocio Ashford MD [address] [place] [address] INTERNAL MEDICINE 10/27/22 documented as of this encounter
== END 2025-05-10 09:07 | disposition home or self-care (01) ==
PROVIDERS: PCP Family Medicine; Visit Provider Internal Medicine Hematology
DX: Z51.11 Encounter for antineoplastic chemotherapy (principal); C81.70 Other Hodgkin lymphoma, unspecified site; D70.8 Other neutropenia
CPT/HCPCS: 36415; 36591; 80053; 82533; 84443; 85025; 96367; 96413; 96417; J1100; J2405; J7050; J9201; J9271

== ENCOUNTER 2025-05-16 09:09 | Outpatient (CLI) | payer OTHER, SELFPAY ==
[2025-05-16 09:15] VITALS: BMI 24.2
[2025-05-16] MEDS: SODIUM CHLORIDE 0.9% IV 250 ML 10 ML IVPB (09:15)
[2025-05-16 09:20] VITALS: BP 110/72; PULSE 70; RESP 14; TEMP 36.5; O2SAT 100
[2025-05-16 09:30] LABS: Hematocrit 35.6 % (40.0-54.0); Hemoglobin 12.0 g/dL (14.0-18.0); Mean Corpuscular HGB Conc 33.7 g/dL (32-36); Mean Corpuscular Hemoglobin 28.4 pg (27.0-31.0); Mean Corpuscular Volume 84.4 fL (78.0-102.0); Platelet Count Result 201 K/mm3 (150-420); Red Blood Count 4.22 M/mm3 (4.70-6.10); White Blood Count 3.1 K/mm3 (4.8-10.8)
[2025-05-16] MEDS: ONDANSETRON INJ 16 MG, dexAMETHasone SOD 4 MG/ML INJ 12 MG in SODIUM CHLORIDE 0.9% IV 1... 400 MG IVPB (09:45)
--- OUTSIDE RECORDS SUMMARY | 2025-05-16 09:52 | XMS_ITS ---
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 S/p ABVD (2 cycles) with progression [...]
--- OUTSIDE RECORDS SUMMARY | 2025-05-16 09:52 | XMS_ITS | Clinical Summary ---
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 Male 10:05 AM HORTICULTURE WORKER Gender Identity Male 05/30/2023 9:41 PM HORTICULTURE WORKER Sexual Orientation Straight 05/30/2023 9: 41 PM HORTICULTURE WORKER Last Filed Vital Signs Vital Sign Reading Time Taken Comments Blood Pressure 144/81 06/30/2023 11:15 AM HORTICULTURE WORKER Pulse 81 06/30/2023 11:15 AM HORTICULTURE WORKER Temperature 36.6 C (97.8 F) 06/30/2023 11:15 AM HORTICULTURE WORKER Respiratory Rate 18 06/30/2023 11:15 AM HORTICULTURE WORKER Oxygen Saturation 96% 06/30/2023 11:15 AM HORTICULTURE WORKER Inhaled Oxygen Concentration - - Weight 67.9 kg (149 lb 9.6 oz) 06/30/2023 11:15 AM HORTICULTURE WORKER Height 167.6 cm (5' 6) 04/28/2023 11:20 [...] Screening Completed 08/26/1999 , 03/07/1999, 02/07/1999 [facility] Advance Directives For more information, please contact: [phone] * Full Code (Latest Code Status on File) Date Activated Date Inactivated Comments 04/28/2023 11:03 AM 05/05/2023 7:19 PM Care Teams Heavy Equipment Service Manager Relationship Specialty Start Date End Date Candido Hayes DO [address] [place] [address] PCP - General Family Medicine 08/28/24 Shasta Sena MD [address] [facility] [address] [place] [address] Medical Oncologist/Household Cook Medical Oncology 05/05/23
--- OUTSIDE RECORDS SUMMARY | 2025-05-16 09:52 | XMS_ITS | Clinical Summary ---
Author Organization [facility] Address [address] [place] [address] Care Team Providers Care Solar/Renewable Energy Sales Name Role Phone TrentonCadnido hammer Primary Care Provider [phone] Ambrocio Ashford MD Unavailable [phone] Allergies No known active allergies Medications [...] - 03/30/2025 11:59 PM CDT Hospital Encounter [facility] PET [address] [place] [address] Amanda Ospina MD Discharge Disposition: Home or [...] week 04/24/2023 How often do you attend pentecostal or bahai serv ices? Never 04/24/2023 Do [...] CDT Legal Sex Male 5:44 PM DIRECTOR NETWORK DEVELOPMENT Gender Identity Male 04/14/2022 9:23 PM CDT [...] Contact Info) Description 05/17/2025 10:00 AM DIRECTOR NETWORK DEVELOPMENT Hospital Encounter [facility] PET [address] [place] [address] Dhiraj Hansen MD [address] 1[address] [place] [address] Health Maintenance Due Date Last Done Comments [...] home upon discharge Lifestyle No Rama Chahal, gore stitcher - family caregiver with be involved in care transitions and discharge planning Lifestyle No Catrina Tyler, patent litigation associate Procedure Name Priority Date/Time Associated Diagnosis Comments [...] 11:40 AM Narrative 03/30/2025 4:51 PM [address] [address] EXAMINATION: TUMOR FDG-PET/CT IMAGING DATE OF STUDY: 03/30/2025 SCANNER: [facility] RADIOPHARMACEUTICAL: 12 mCi F-18 Fluorodeoxyglucose (FDG) i.v. [...] obtained. The study was interpreted on the servtag workstation. The mean liver SUV (reported for quality control manager purposes) is 1.8. The total scanned area [...] Procedure Note Alexandria Christiansen MD - 03/30/[address] [address] EXAMINATION: TUMOR FDG-PET/CT IMAGING DATE OF STUDY: 03/30/2025 SCANNER: [facility] RADIOPHARMACEUTICAL: 12 mCi F-18 Fluorodeoxyglucose (FDG) i.v. [...] Sectraworkstation. The mean liver SUV (reported for quality control manager purposes)is 1.8. The total scanned area was [...] activity including significantly decreased uptake in the A4zeyjccgdd body lesion seen on the prior exam. [...] Pathologic fractures involving the C4, L4, and W92etornmdhk bodies. Minimal multilevel spondylosis. Chronic nonunited leftL3 [...] 70 - 109 03/30/2025 10:05 AM CDT [facility] 03/30/2025 10:0 4 AM CDT Dhiraj Hansen MD POCT ORDERABLES - DEV ICE Final Result [facility] [address] [place] [address], [place] [phone] [id number] from Last 3 Months Additional Health Concerns Infection Onset Date Last Indicated MRSA Comment:04/14/22 nose (JJ) 04/16/2022 04/26/2023 Insurance [facility] MEDICAID MEDICAID Advance Directives * Full Code [...] 11:10 PM 04/06/2022 4:15 PM Care Teams Solar/Renewable Energy Sales Relationship Specialty Start Date End Date Candido Hayes DO [address] [place] [address] PCP - General FAMILY PRACTICE 04/14/22 Ambrocio Ashford MD [address] [place] [address] INTERNAL MEDICINE 10/27/22
--- OUTSIDE RECORDS SUMMARY | 2025-05-16 09:52 | XMS_ITS | Encounter Summary ---
Author Organization [facility] Address [address] [place] [address] Phone Care Team Providers Care Brickmason Supervisor Name Role Phone Shasta Sena MD Unavailable [phone], Physician Primary Care Provider [phone] Candido Hayes DO Primary Care Provider Encounter [...] on file Legal Sex Male 10:05 AM HR LEADER Gender Identity Male 05/30/2023 9:41 PM HR LEADER Sexual Orientation Straight 05/30/2023 9: 41 PM HR LEADER documented as of this encounter Plan of Treatment Not on file documented as of this encounter Procedures Procedure Name Priority Date/Time Associated Diagnosis Comments SCAN - RADIOLOGY/IMAGING 10/14/2023 documented in this encounter Results * SCAN - RADIOLOGY/IMAGING (10/14/2023) Anatomical Region Laterality Modality Other us Provider Scanning Final Result documented in this encounter Visit Diagnoses Not on filedocumented in this encounter Care Teams Brickmason Supervisor Relationship Specialty Start Date End Date No, Physician PCP - General 05/06/23 08/27/24 Candido Hayes DO [address] [place] [address] PCP - General Family Medicine 08/28/24 Shasta Sena MD [address] [facility] [address] [place] [address] Medical Oncologist/Novelty Balloon Assembler And Packer Medical Oncology 05/05/23 documented as of this encounter
--- OUTSIDE RECORDS SUMMARY | 2025-05-16 09:52 | XMS_ITS | Encounter Summary ---
Author Organization [facility] Address [facility] [place] [address] Care Team Providers Care Lead Pastor Name Role Phone TrentonSoledad hammerlexis DENNISON Primary Care Provider [phone] Ambrocio Ashford MD Unavailable [phone] Reason for Visit * Reason Onset [...] st Contact Info) Description 05/16/2024 Telephone [facility] Interventional Radiology [address] [place] [address] Carin Hassan, RN Preprocedure Call [...] week 04/24/2023 How often do you attend mandaen or uatsdin serv ices? Never 04/24/2023 Do you belong to any clubs o r organizations such as mandaen groups, unions, fraternal or athletic groups, or [...] move on to questions 3-9 0 04/14/2022 [facility] [place] of Occupat ional Health - Occupational Stress [...] slept in a fci (including now)? 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 Author Safety Patient/family will have appropriate support at home upon discharge Lifestyle No Rama Chahal attendance clerk - family caregiver with be involved in [...] documented as of this encounter Care Teams Lead Pastor Relationship Specialty Start Date End Date Candido Hayes DO [address] [place] [address] PCP - General FAMILY PRACTICE 04/14/22 Ambrocio Ashford MD [address] [place] [address] INTERNAL MEDICINE 10/27/22 documented as of this encounter
--- OUTSIDE RECORDS SUMMARY | 2025-05-16 09:52 | XMS_ITS | Encounter Summary ---
Author Organization [facility] Address [address] [place] [address] Care Team Providers Care Electrician'S Assistant Name Role Phone Jazmin Tyson [facility] Primary Care Provider [phone] Candido Hayes DO Primary Care Provider [phone] Ambrocio Ashford MD Unavailable [phone] Encounter Details Date Type Department Care Team (Late st Contact Info) Description 12/10/2018 Abstract SFL CONVERSION [address] [place] [address] , Generic Conversion, Social History Tobacco Use Types Packs/Day Years Used Date Smoking Tobacco: Never Assessed Sex and Gender Information Value Date Recorded Sex Assigned at Male 11/20/2024 12:26 PM CDT 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 PET [address] [place] [address] Dhiraj Hansen MD [address] 1[address] Floor Clinic [place], [place] [address] documented as of this encounter Visit Diagnoses Not on filedocumented in this encounter Additional Health Concerns Infection Onset Date Last Indicated Resolved Time COVID-19 Rule Out 04/05/2022 04/05/2022 04/05/2022 10:30 PM CDT MRSA Comment:04/14/22 nose (JJ) 04/16/2022 04/26/2023 COVID-19 Rule Out 10/27/2022 10/27/2022 10/27/2022 6:37 PM CDT COVID-19 Rule Out 12/15/2022 12/15/2022 12/15/2022 1:07 PM CDT documented as of this encounter Care Teams Electrician'S Assistant Relationship Specialty Start Date End Date Jazmin Tyson FNP- [address] [place] [address] PCP - General NURSE PRACTITIONER 05/09/19 04/13/22 Candido Hayes DO [address] [place] [address] PCP - General FAMILY PRACTICE 04/14/22 Ambrocio Ashford MD [address] [place] [address] INTERNAL MEDICINE 10/27/22 documented as of this encounter
[2025-05-16 09:54] LABS: Alanine Aminotransferase 15 U/L (6-50); Albumin Level 4.1 g/dL (3.5-5.1); Alkaline Phosphatase 65 U/L (38-126); Anion Gap 6 mmol/L (4-12); Aspartate Amino Transferase 23 U/L (17-59); Band Neutrophils Percent 0 % (0-6); Basophils Absolute Manual 0.00 K/mm3 (0-0.1); Basophils Percent Manual 0 % (0-1); Bilirubin,Total 1.5 mg/dL (0.2-1.3); Blood Urea Nitrogen 13 mg/dL (9-20); Calcium 9.1 mg/dL (8.4-10.2); Carbon Dioxide 30 mmol/L (22-30); Chloride 104 mmol/L (98-107); Eosinophils Absolute Manual 0.12 K/mm3 (0.02-0.50); Eosinophils Percent Manual 4 % (1-6); Estimated CRCL calculation 111 ml/min; Estimated Glomerular Filt Rate > 60; Glucose 92 mg/dL (65-110); Lymphocytes Absolute Manual 0.68 K/mm3 (1.1-4.5); Lymphocytes Percent Manual 22 % (18-44); Monocytes Absolute Manual 0.21 K/mm3 (0.1-0.90); Monocytes Percent Manual 7 % (3-9); Neutrophils Absolute Manual 2.07 K/mm3 (1.3-6.7); Neutrophils Percent Manual 67 % (46-73); Osmolality Calculated 290 mOsm/kg (285-295); Potassium 3.7 mmol/L (3.4-5.0); Sodium 140 mmol/L (137-145); Total Cells Counted 100; Total Protein 6.4 g/dL (6.3-8.2)
[2025-05-16] MEDS: SODIUM CHLORIDE 0.9% IVPB (10:15)
[2025-05-16] MEDS: GEMCITABINE HCL IVPB (10:15)
[2025-05-16] MEDS: PEGFILGRASTIM (ONPRO KIT) 6 MG/0.6 ML SYRINGE SUB-Q (11:17)
[2025-05-16] MEDS: HEPARIN SODIUM LOCK FLUSH 500 UNITS/5 ML SYRINGE IV PUSH (11:26)
[2025-05-16 11:27] VITALS: BP 116/70; PULSE 72; RESP 14; O2SAT 99
--- NOTE | 2025-05-16 11:30 | PC.NURSE ---
Tolerated chemo treatment well. Will be going home on Neulasta Onpro. This is patient's 4th time with going home with Neulasta Onpro. Education reinforced given to patient verbally and written.
== END 2025-05-16 09:10 | disposition home or self-care (01) ==
PROVIDERS: PCP Family Medicine; Visit Provider Internal Medicine Hematology
DX: Z51.11 Encounter for antineoplastic chemotherapy (principal); C81.70 Other Hodgkin lymphoma, unspecified site; C91.10 Chronic lymphocytic leukemia of B-cell type not having achieved remission; D70.8 Other neutropenia
CPT/HCPCS: 36415; 36591; 80053; 85025; 96367; 96372; 96377; 96413; J1100; J2405; J2506; J7050; J9201

== ENCOUNTER 2025-05-30 09:19 | Outpatient (CLI) | payer OTHER, SELFPAY ==
[2025-05-30 09:25] VITALS: BP 111/63; PULSE 78; RESP 14; TEMP 36.6; O2SAT 97; BMI 24.2
[2025-05-30 09:41] LABS: Hematocrit 34.8 % (40.0-54.0); Hemoglobin 12.0 g/dL (14.0-18.0); Immature Granulocyte Percent A 0.4 % (0.0-0.0); Lymphocytes Absolute Auto 0.69 K/mm3 (1.10-4.50); Mean Corpuscular HGB Conc 34.5 g/dL (32-36); Mean Corpuscular Hemoglobin 29.2 pg (27.0-31.0); Mean Corpuscular Volume 84.7 fL (78.0-102.0); Nucleated Red Blood Cells Absolute Auto 0.00 K/mm3 (0.00-0.00); Nucleated Red Blood Cells Perc 0.0 % (0-0.0); Platelet Count Result 288 K/mm3 (150-420); Red Blood Count 4.11 M/mm3 (4.70-6.10); White Blood Count 5.6 K/mm3 (4.8-10.8)
--- OUTSIDE RECORDS SUMMARY | 2025-05-30 09:48 | XMS_ITS | Clinical Summary ---
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 sAhford, [place], [place]. 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 Male 10:05 AM REGISTERED DIETITIAN Gender Identity Male 05/30/2023 9:41 PM REGISTERED DIETITIAN Sexual Orientation Straight 05/30/2023 9: 41 PM REGISTERED DIETITIAN Last Filed Vital Signs Vital Sign Reading Time Taken Comments Blood Pressure 144/81 06/30/2023 11:15 AM REGISTERED DIETITIAN Pulse 81 06/30/2023 11:15 AM REGISTERED DIETITIAN Temperature 36.6 C (97.8 F) 06/30/2023 11:15 AM REGISTERED DIETITIAN Respiratory Rate 18 06/30/2023 11:15 AM REGISTERED DIETITIAN Oxygen Saturation 96% 06/30/2023 11:15 AM REGISTERED DIETITIAN Inhaled Oxygen Concentration - - Weight 67.9 kg (149 lb 9.6 oz) 06/30/2023 11:15 AM REGISTERED DIETITIAN Height 167.6 cm (5' 6) 04/28/2023 11:20 [...] Screening Completed 08/26/1999 , 03/07/1999, 02/07/1999 [facility] Advance Directives For more information, please contact: [phone] * Full Code (Latest Code Status on File) Date Activated Date Inactivated Comments 04/28/2023 11:03 AM 05/05/2023 7:19 PM Care Teams Hydrometer Calibrator Relationship Specialty Start Date End Date Candido Hayes DO [address] [place] [address] PCP - General Family Medicine 08/28/24 Shasta Sena MD [address] [facility] [address] [place] [address] Medical Oncologist/Reed Fixer Medical Oncology 05/05/23
--- OUTSIDE RECORDS SUMMARY | 2025-05-30 09:49 | XMS_ITS | Encounter Summary ---
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 Gender Identity Male 05/30/2023 9:41 PM SIZE ROLLER OPERATOR Sexual Orientation Straight 05/30/2023 9: 41 PM SIZE ROLLER OPERATOR documented as of this encounter Plan of Treatment Not on file documented as of this encounter Procedures Procedure Name Priority Date/Time Associated Diagnosis Comments SCAN - RADIOLOGY/IMAGING 10/14/2023 documented in this encounter Results * SCAN - RADIOLOGY/IMAGING (10/14/2023) Anatomical Region Laterality Modality Other us Provider Scanning Final Result documented in this encounter Visit Diagnoses Not on filedocumented in this encounter Care Teams Room Cooler Installer Relationship Specialty Start Date End Date No, Physician PCP - General 05/06/23 08/27/24 Candido Hayes DO [address] [place] [address] PCP - General Family Medicine 08/28/24 Shasta Sena MD [address] [facility] [address] [place] [address] Medical Oncologist/Advertising Sales Assistant Medical Oncology 05/05/23 documented as of this encounter
--- OUTSIDE RECORDS SUMMARY | 2025-05-30 09:49 | XMS_ITS ---
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 Ashford, [place], [place]. S/p ABVD (2 cycles) with progression [...]
[2025-05-30 09:53] LABS: Alanine Aminotransferase 47 U/L (6-50); Albumin Level 4.3 g/dL (3.5-5.1); Alkaline Phosphatase 78 U/L (38-126); Anion Gap 8 mmol/L (4-12); Aspartate Amino Transferase 61 U/L (17-59); Bilirubin,Total 0.8 mg/dL (0.2-1.3); Blood Urea Nitrogen 15 mg/dL (9-20); Calcium 9.0 mg/dL (8.4-10.2); Carbon Dioxide 29 mmol/L (22-30); Chloride 104 mmol/L (98-107); Estimated CRCL calculation 89 ml/min; Estimated Glomerular Filt Rate > 60; Glucose 109 mg/dL (65-110); Osmolality Calculated 293 mOsm/kg (285-295); Potassium 3.2 mmol/L (3.4-5.0); Sodium 141 mmol/L (137-145); Total Protein 6.7 g/dL (6.3-8.2)
[2025-05-30] MEDS: SODIUM CHLORIDE 0.9% IV 250 ML 10 ML IVPB (10:15)
[2025-05-30] MEDS: dexAMETHasone SOD 4 MG/ML INJ 12 MG, ONDANSETRON INJ 16 MG in SODIUM CHLORIDE 0.9% IV 8... 400 MG IVPB (10:20)
[2025-05-30 10:24] LABS: Thyroid Stimulating Hormone 2.860 uIU/mL (0.465-4.680)
[2025-05-30] MEDS: PEMBROLIZUMAB 200 MG in SODIUM CHLORIDE 0.9% IV 92 ML IVPB (11:15)
[2025-05-30] MEDS: HEPARIN SODIUM LOCK FLUSH 500 UNITS/5 ML SYRINGE IV PUSH (12:17)
[2025-05-30 12:26] VITALS: BP 120/68; PULSE 72; RESP 14; O2SAT 97
--- NOTE | 2025-05-30 12:27 | PC.NURSE ---
Patient tolerated today's treatment well. SEE MAR/patient.
== END 2025-05-30 09:20 | disposition home or self-care (01) ==
PROVIDERS: PCP Family Medicine; Visit Provider Internal Medicine Hematology
DX: Z51.11 Encounter for antineoplastic chemotherapy (principal); C81.70 Other Hodgkin lymphoma, unspecified site; D70.8 Other neutropenia
CPT/HCPCS: 36415; 36591; 80053; 84443; 85025; 85652; 96367; 96375; 96413; 96417; J1100; J2405; J7050; J9201; J9271

== ENCOUNTER 2025-06-06 09:04 | Outpatient (CLI) | payer OTHER, SELFPAY ==
[2025-06-06 09:10] VITALS: BP 131/70; PULSE 88; RESP 14; TEMP 36.6; O2SAT 99; BMI 25.1
[2025-06-06 09:21] LABS: Hematocrit 35.7 % (40.0-54.0); Hemoglobin 12.1 g/dL (14.0-18.0); Mean Corpuscular HGB Conc 33.9 g/dL (32-36); Mean Corpuscular Hemoglobin 29.1 pg (27.0-31.0); Mean Corpuscular Volume 85.8 fL (78.0-102.0); Platelet Count Result 239 K/mm3 (150-420); Red Blood Count 4.16 M/mm3 (4.70-6.10); White Blood Count 3.7 K/mm3 (4.8-10.8)
[2025-06-06 09:34] LABS: Alanine Aminotransferase 63 U/L (6-50); Albumin Level 4.5 g/dL (3.5-5.1); Alkaline Phosphatase 67 U/L (38-126); Anion Gap 9 mmol/L (4-12); Aspartate Amino Transferase 65 U/L (17-59); Bilirubin,Total 0.5 mg/dL (0.2-1.3); Blood Urea Nitrogen 14 mg/dL (9-20); Calcium 9.3 mg/dL (8.4-10.2); Carbon Dioxide 28 mmol/L (22-30); Chloride 102 mmol/L (98-107); Estimated CRCL calculation 83 ml/min; Estimated Glomerular Filt Rate > 60; Glucose 106 mg/dL (65-110); Osmolality Calculated 288 mOsm/kg (285-295); Potassium 4.2 mmol/L (3.4-5.0); Sodium 139 mmol/L (137-145); Total Protein 6.9 g/dL (6.3-8.2)
--- OUTSIDE RECORDS SUMMARY | 2025-06-06 09:47 | XMS_ITS | Encounter Summary ---
Author Organization [facility] Address [facility] [place] [address] Care Team Providers Care Breaker Tender Name Role Phone TrentonSoledad hammerlexis DENNISON Primary Care Provider [phone] Ambrocio Ashford MD Unavailable [phone] Reason for Visit * Reason Onset [...] (Late st Contact Info) Description 05/16/2024 Telephone [facility] Interventional Radiology [address] [place] [address] Carin Hassan, RN Preprocedure Call [...] week 04/24/2023 How often do you attend jewish or yarsani serv ices? 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
--- OUTSIDE RECORDS SUMMARY | 2025-06-06 09:47 | XMS_ITS | Clinical Summary ---
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 Ashford, [place], [place]. 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 Male 10:05 AM CHICKEN VACCINATOR Gender Identity Male 05/30/2023 9:41 PM CHICKEN VACCINATOR Sexual Orientation Straight 05/30/2023 9: 41 PM CHICKEN VACCINATOR Last Filed Vital Signs Vital Sign Reading Time Taken Comments Blood Pressure 144/81 06/30/2023 11:15 AM CHICKEN VACCINATOR Pulse 81 06/30/2023 11:15 AM CHICKEN VACCINATOR Temperature 36.6 C (97.8 F) 06/30/2023 11:15 AM CHICKEN VACCINATOR Respiratory Rate 18 06/30/2023 11:15 AM CHICKEN VACCINATOR Oxygen Saturation 96% 06/30/2023 11:15 AM CHICKEN VACCINATOR Inhaled Oxygen Concentration - - Weight 67.9 kg (149 lb 9.6 oz) 06/30/2023 11:15 AM CHICKEN VACCINATOR Height 167.6 cm (5' 6) 04/28/2023 11:20 [...] Screening Completed 08/26/1999 , 03/07/1999, 02/07/1999 [facility] Directives For more information, please contact: [phone] * Full Code (Latest Code Status on File) Date Activated Date Inactivated Comments 04/28/2023 11:03 AM 05/05/2023 7:19 PM Care Teams Bowling Or Skating Front Desk Clerk Relationship Specialty Start Date End Date Candido Hayes DO [address] [place] [address] PCP - General Family Medicine 08/28/24 Shasta Sena MD [address] [facility] [address] [place] [address] Medical Oncologist/Entry Level Financial Analyst Medical Oncology 05/05/23
--- OUTSIDE RECORDS SUMMARY | 2025-06-06 09:47 | XMS_ITS | Encounter Summary ---
Author Organization [facility] Address [address] [place] [address] Care Team Providers Care Senior Account Clerk Name Role Phone Jazmin TysonP- Primary Care Provider [phone] Candido Hayes DO Primary Care Provider [phone] Ambrocio Ashford MD Unavailable [phone] Encounter Details Date Type Department Care Team (Late st Contact Info) Description 12/10/2018 Abstract SFL CONVERSION [address] [place] [address] , Generic Conversion, Social History Tobacco Use Types Packs/Day Years Used Date Smoking Tobacco: Never Assessed Sex and Gender Information Value Date Recorded Sex Assigned at Male 11/20/2024 12:26 PM CDT 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
--- OUTSIDE RECORDS SUMMARY | 2025-06-06 09:47 | XMS_ITS ---
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 Ashford, [place], [place]. S/p ABVD (2 cycles) with progression [...] Administration for Outpatient* Plan Start Date:05/13/2023 Plan Provider:Shatsa Sena MD Linked Problems Hodgkin lymphoma of [...]
--- OUTSIDE RECORDS SUMMARY | 2025-06-06 09:47 | XMS_ITS | Clinical Summary ---
Author Organization [facility] Address [address] [place] [address] Care Team Providers Care Affiliate Marketing Specialist Name Role Phone TrentonCandido hammer Primary Care Provider [phone] Ambrocio Ashford MD Unavailable [phone] Allergies No known active allergies Medications [...] - 03/30/2025 11:59 PM CDT Hospital Encounter [facility] PET [address] [place] [address] Amanda Ospina MD Discharge Disposition: Home or [...] week 04/24/2023 How often do you attend alevism or hindu serv ices? Never 04/24/2023 Do you belong to any clubs o r organizations such as alevism groups, unions, fraternal or athletic groups, or [...] move on to questions 3-9 0 04/14/2022 [facility] of Occupat ional Health - [...] place to sleep or slept in a penitentiary (including now)? 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 Gender Identity Male 04/14/2022 9:23 PM CDT [...] - 3-dose SCDM series) 02/07/2016 COVID-19 Vaccine ( - season) 2025 Influenza Adult (#1) 2025 [...] home upon discharge Lifestyle No Rama Chahal, recreational resort manager - family caregiver with be involved in care transitions and discharge planning Lifestyle No Catrina Tyler electric transfer operator Procedure Name Priority Date/Time Associated Diagnosis Comments PET WHOLE BODY INITIAL Routine 03/30/2025 11:28 AM CDT Hodgkin's disease ([facility]) POCT GLUCOSE - DOCKED DEVICE Routine 03/30/2025 [...] 11:40 AM Narrative 03/30/2025 4:51 PM CDT [place] [address] EXAMINATION: TUMOR FDG-PET/CT IMAGING DATE OF STUDY: 03/30/2025 SCANNER: [facility] RADIOPHARMACEUTICAL: 12 mCi F-18 Fluorodeoxyglucose (FDG) [...] obtained. The study was interpreted on the [employer] workstation. The mean liver SUV (reported for software quality assurance analyst purposes) is 1.8. The total scanned area [...] left L3 transverse process fracture. Procedure Note Елена, Alexandria D, MD - 03/30/[address] [address] EXAMINATION: TUMOR FDG-PET/CT IMAGING DATE OF STUDY: 03/30/2025 SCANNER: [facility] RADIOPHARMACEUTICAL: 12 mCi F-18 Fluorodeoxyglucose (FDG) [...] Sectraworkstation. The mean liver SUV (reported for software quality assurance analyst purposes)is 1.8. The total scanned area was [...] activity including significantly decreased uptake in the F7mrkdovfdd body lesion seen on the prior exam. [...] Pathologic fractures involving the C4, L4, and C14iwpcxvqck bodies. Minimal multilevel spondylosis. Chronic nonunited leftL3 [...] report. Ordered By: AMANDA OSPINA Interpreted By: Gte Chavez MD, 03/30/2025 11:40 AM Amanda Ospina MD PET Final Result * (ABNORMAL) POCT glucose (03/30/2025 10:04 AM CDT) GLUCOSE POC 115(H) 70 - 109 03/30/2025 10:[address] [facility] 03/30/2025 10:0 4 AM CDT Dhiraj Hansen MD POCT ORDERABLES - DEV ICE Final Result [facility] [address] [place] [address], [id number] from Last 3 Months Additional Health Concerns [...] 11:10 PM 04/06/2022 4:15 PM Care Teams Affiliate Marketing Specialist Relationship Specialty Start Date End Date Candido Hayes DO [address] [place] [address] PCP - General FAMILY PRACTICE 04/14/22 Ambrocio Ashford MD [address] [place] [address] INTERNAL MEDICINE 10/27/22
--- OUTSIDE RECORDS SUMMARY | 2025-06-06 09:47 | XMS_ITS | Encounter Summary ---
Author Organization [facility] Address [address] [place] [address] Phone Care Team Providers Care Ware Carrier Name Role Phone Shasta Sena MD Unavailable [phone], Physician Primary Care Provider [phone] Candido Hayes DO Primary Care Provider Encounter [...] on file Legal Sex Male 10:05 AM CARDER BLANKETS Gender Identity Male 05/30/2023 9:41 PM CARDER BLANKETS Sexual Orientation Straight 05/30/2023 9: 41 PM CARDER BLANKETS documented as of this encounter Plan of Treatment Not on file documented as of this encounter Procedures Procedure Name Priority Date/Time Associated Diagnosis Comments SCAN - RADIOLOGY/IMAGING 10/14/2023 documented in this encounter Results * SCAN - RADIOLOGY/IMAGING (10/14/2023) Anatomical Region Laterality Modality Other us Provider Scanning Final Result documented in this encounter Visit Diagnoses Not on filedocumented in this encounter Care Teams Ware Carrier Relationship Specialty Start Date End Date No, Physician PCP - General 05/06/23 08/27/24 Candido Hayes DO [address] [place] [address] PCP - General Family Medicine 08/28/24 Shasta Sena MD [address] [facility] [address] [place] [address] Medical Oncologist/Leadite Heater Medical Oncology 05/05/23 documented as of this encounter
[2025-06-06] MEDS: SODIUM CHLORIDE 0.9% IV 250 ML 10 ML IVPB (10:00)
[2025-06-06] MEDS: ONDANSETRON INJ 16 MG, dexAMETHasone SOD 4 MG/ML INJ 12 MG in SODIUM CHLORIDE 0.9% IV 1... 400 MG IVPB (10:00)
[2025-06-06 10:19] LABS: Eosinophils Absolute Manual 0.07 K/mm3 (0.02-0.50); Eosinophils Percent Manual 2 % (1-6); Lymphocytes Absolute Manual 0.70 K/mm3 (1.1-4.5); Lymphocytes Percent Manual 19 % (18-44); Monocytes Absolute Manual 0.25 K/mm3 (0.1-0.90); Monocytes Percent Manual 7 % (3-9); Neutrophils Absolute Manual 2.77 K/mm3 (1.3-6.7); Neutrophils Percent Manual 75 % (46-73)
[2025-06-06 10:20] LABS: Basophils Absolute Manual 0.03 K/mm3 (0-0.1); Basophils Percent Manual 1 % (0-1)
[2025-06-06] MEDS: PEGFILGRASTIM (ONPRO KIT) 6 MG/0.6 ML SYRINGE SUB-Q (11:18)
[2025-06-06] MEDS: HEPARIN SODIUM LOCK FLUSH 500 UNITS/5 ML SYRINGE IV PUSH (11:18)
[2025-06-06 11:28] VITALS: BP 130/69; PULSE 78; RESP 14; O2SAT 99
--- NOTE | 2025-06-06 11:31 | PC.NURSE ---
Patient tolerated gemcitabine infusion treatment well. SEE MAR/patient care notes. Patient going home on Neulasta Onpro. Education given. This is cycle 5 and fully understands Neulasta Onpro and how to remove it.
== END 2025-06-06 09:05 | disposition home or self-care (01) ==
PROVIDERS: PCP Family Medicine; Visit Provider Internal Medicine Hematology
DX: Z51.11 Encounter for antineoplastic chemotherapy (principal); C81.70 Other Hodgkin lymphoma, unspecified site; D70.8 Other neutropenia
CPT/HCPCS: 36415; 80053; 85025; 96367; 96372; 96377; 96413; J1100; J2405; J2506; J7050; J9201

== ENCOUNTER 2025-06-19 08:48 | Outpatient (CLI) | payer OTHER, SELFPAY ==
[2025-06-19 09:00] VITALS: BP 111/60; PULSE 60; RESP 14; TEMP 36.6; O2SAT 99; BMI 24.8
[2025-06-19 09:11] LABS: Hematocrit 37.4 % (40.0-54.0); Hemoglobin 12.8 g/dL (14.0-18.0); Mean Corpuscular HGB Conc 34.2 g/dL (32-36); Mean Corpuscular Hemoglobin 29.0 pg (27.0-31.0); Mean Corpuscular Volume 84.8 fL (78.0-102.0); Platelet Count Result 202 K/mm3 (150-420); Red Blood Count 4.41 M/mm3 (4.70-6.10); White Blood Count 4.0 K/mm3 (4.8-10.8)
[2025-06-19 09:26] LABS: Band Neutrophils Percent 1 % (0-6); Eosinophils Absolute Manual 0.28 K/mm3 (0.02-0.50); Eosinophils Percent Manual 7 % (1-6); Lymphocytes Absolute Manual 0.96 K/mm3 (1.1-4.5); Lymphocytes Percent Manual 24 % (18-44); Monocytes Absolute Manual 0.60 K/mm3 (0.1-0.90); Monocytes Percent Manual 15 % (3-9); Neutrophils Absolute Manual 2.16 K/mm3 (1.3-6.7); Neutrophils Percent Manual 53 % (46-73); Total Cells Counted 100
[2025-06-19] MEDS: SODIUM CHLORIDE 0.9% IV 250 ML 10 ML IVPB (09:26)
[2025-06-19 09:33] LABS: Alanine Aminotransferase 45 U/L (6-50); Albumin Level 4.2 g/dL (3.5-5.1); Alkaline Phosphatase 135 U/L (38-126); Anion Gap 7 mmol/L (4-12); Aspartate Amino Transferase 60 U/L (17-59); Bilirubin,Total 0.4 mg/dL (0.2-1.3); Blood Urea Nitrogen 18 mg/dL (9-20); Calcium 8.8 mg/dL (8.4-10.2); Carbon Dioxide 26 mmol/L (22-30); Chloride 104 mmol/L (98-107); Estimated CRCL calculation 101 ml/min; Estimated Glomerular Filt Rate > 60; Glucose 87 mg/dL (65-110); Osmolality Calculated 284 mOsm/kg (285-295); Potassium 4.0 mmol/L (3.4-5.0); Sodium 137 mmol/L (137-145); Total Protein 6.9 g/dL (6.3-8.2)
--- OUTSIDE RECORDS SUMMARY | 2025-06-19 09:33 | XMS_ITS | Clinical Summary ---
Author Organization [facility] Address [address] [place] [address] Care Team Providers Care Oil Burner Name Role Phone Shasta Sena MD Unavailable [phone] Candido Hayes DO Primary Care Provider Allergies [...] ALANA disease 11/2021, f/b Dr. Ashford, [place], [place]. 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 Gender Identity Male 05/30/2023 9:41 PM DRESS DESIGNER Sexual Orientation Straight 05/30/2023 9: 41 PM DRESS DESIGNER Last Filed Vital Signs Vital Sign Reading Time Taken Comments Blood Pressure 144/81 06/30/2023 11:15 AM DRESS DESIGNER Pulse 81 06/30/2023 11:15 AM DRESS DESIGNER Temperature 36.6 C (97.8 F) 06/30/2023 11:15 AM DRESS DESIGNER Respiratory Rate 18 06/30/2023 11:15 AM DRESS DESIGNER Oxygen Saturation 96% 06/30/2023 11:15 AM DRESS DESIGNER Inhaled Oxygen Concentration - - Weight 67.9 kg (149 lb 9.6 oz) 06/30/2023 11:15 AM DRESS DESIGNER Height 167.6 cm (5' 6) 04/28/2023 [...] Advance Directives For more information, please contact: [phone] * Full Code (Latest Code Status on File) Date Activated Date Inactivated Comments 04/28/2023 11:03 AM 05/05/2023 7:19 PM Care Teams Oil Burner Relationship Specialty Start Date End Date Candido Hayes DO [address] [place] [address] PCP - General Family Medicine 08/28/24 Shasta Sena MD [address] [facility] [address] [place] [address] Medical Oncologist/Bakery Machine Mechanic Medical Oncology 05/05/23
--- OUTSIDE RECORDS SUMMARY | 2025-06-19 09:33 | XMS_ITS ---
Author Organization 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 Ashford, [place], [place]. S/p ABVD (2 cycles) with progression [...]
--- OUTSIDE RECORDS SUMMARY | 2025-06-19 09:33 | XMS_ITS | Encounter Summary ---
Author Organization [facility] Address [address] [place] [address] Phone Care Team Providers Care Physical Aerodynamicist Name Role Phone Shasta Sena MD Unavailable [phone] No, Physician Primary Care Provider [phone] Candido Hayes DO Primary Care Provider Encounter [...] on file Legal Sex Male 10:05 AM VP CLINICAL Gender Identity Male 05/30/2023 9:41 PM VP CLINICAL Sexual Orientation Straight 05/30/2023 9: 41 PM VP CLINICAL documented as of this encounter Plan of Treatment Not on file documented as of this encounter Procedures Procedure Name Priority Date/Time Associated Diagnosis Comments SCAN - RADIOLOGY/IMAGING 10/14/2023 documented in this encounter Results * SCAN - RADIOLOGY/IMAGING (10/14/2023) Anatomical Region Laterality Modality Other us Provider Scanning Final Result documented in this encounter Visit Diagnoses Not on filedocumented in this encounter Care Teams Physical Aerodynamicist Relationship Specialty Start Date End Date No, Physician PCP - General 05/06/23 08/27/24 Candido Hayes DO [address] [place] [address] PCP - General Family Medicine 08/28/24 Shasta Sena MD [address] [facility] [address] [place] [address] Medical Oncologist/Field Mechanic/Site Lead Medical Oncology 05/05/23 documented as of this encounter
[2025-06-19] MEDS: ONDANSETRON INJ 16 MG, dexAMETHasone SOD 4 MG/ML INJ 12 MG in SODIUM CHLORIDE 0.9% IV 8... 400 MG IVPB (09:45)
[2025-06-19] MEDS: PEMBROLIZUMAB 200 MG in SODIUM CHLORIDE 0.9% IV 92 ML IVPB (10:00)
[2025-06-19 10:03] LABS: Thyroid Stimulating Hormone 3.250 uIU/mL (0.465-4.680)
[2025-06-19] MEDS: SODIUM CHLORIDE 0.9% IVPB (10:30)
[2025-06-19] MEDS: GEMCITABINE HCL IVPB (10:30)
[2025-06-19] MEDS: HEPARIN SODIUM LOCK FLUSH 500 UNITS/5 ML SYRINGE IV PUSH (11:00)
[2025-06-19 11:13] VITALS: BP 111/59; PULSE 60; RESP 14; TEMP 36.4; O2SAT 99
== END 2025-06-19 08:49 | disposition home or self-care (01) ==
PROVIDERS: PCP Family Medicine; Visit Provider Internal Medicine Hematology
DX: Z51.11 Encounter for antineoplastic chemotherapy (principal); C81.70 Other Hodgkin lymphoma, unspecified site; D70.8 Other neutropenia
CPT/HCPCS: 36415; 36591; 80053; 82533; 84443; 85025; 96367; 96375; 96413; 96417; J1100; J2405; J7050; J9201; J9271

== ENCOUNTER 2025-06-26 08:41 | Outpatient (CLI) | payer OTHER, SELFPAY ==
[2025-06-26 08:45] VITALS: BP 116/70; PULSE 80; RESP 14; TEMP 36.6; O2SAT 97; BMI 24.5
--- OUTSIDE RECORDS SUMMARY | 2025-06-26 08:50 | XMS_ITS | Encounter Summary ---
Author Organization [facility] Address [address] [place] [address] Phone Care Team Providers Care Director Microbiology Name Role Phone Shasta Sena MD Unavailable No, Physician Primary Care Provider Candido Hayes DO Primary Care Provider Encounter [...] on file Legal Sex Male 10:05 AM PROCESS MECHANIC Gender Identity Male 05/30/2023 9:41 PM PROCESS MECHANIC Sexual Orientation Straight 05/30/2023 9: 41 PM PROCESS MECHANIC documented as of this encounter Plan of Treatment Not on file documented as of this encounter Procedures Procedure Name Priority Date/Time Associated Diagnosis Comments SCAN - RADIOLOGY/IMAGING 10/14/2023 documented in this encounter Results * SCAN - RADIOLOGY/IMAGING (10/14/2023) Anatomical Region Laterality Modality Other us Provider Scanning Final Result documented in this encounter Visit Diagnoses Not on filedocumented in this encounter Care Teams Director Microbiology Relationship Specialty Start Date End Date No, Physician PCP - General 05/06/23 08/27/24 Candido Hayes DO [address] [place] [address] PCP - General Family Medicine 08/28/24 Shasta Sena MD [address] [facility] [address] [place] [address] Medical Oncologist/Miniature Set Constructor Medical Oncology 05/05/23 documented as of this encounter
--- OUTSIDE RECORDS SUMMARY | 2025-06-26 08:50 | XMS_ITS | Clinical Summary ---
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 Ashford, [place], [place]. S/p ABVD (2 cycles) with progression [...] file Legal Sex Male 10:05 AM SUPERVISOR EPOXY FABRICATION Gender Identity Male 05/30/2023 9:41 PM SUPERVISOR EPOXY FABRICATION Sexual Orientation Straight 05/30/2023 9: 41 PM SUPERVISOR EPOXY FABRICATION Last Filed Vital Signs Vital Sign Reading Time Taken Comments Blood Pressure 144/81 06/30/2023 11:15 AM SUPERVISOR EPOXY FABRICATION Pulse 81 06/30/2023 11:15 AM SUPERVISOR EPOXY FABRICATION Temperature 36.6 C (97.8 F) 06/30/2023 11:15 AM SUPERVISOR EPOXY FABRICATION Respiratory Rate 18 06/30/2023 11:15 AM SUPERVISOR EPOXY FABRICATION Oxygen Saturation 96% 06/30/2023 11:15 AM SUPERVISOR EPOXY FABRICATION Inhaled Oxygen Concentration - - Weight 67.9 kg (149 lb 9.6 oz) 06/30/2023 11:15 AM SUPERVISOR EPOXY FABRICATION Height 167.6 cm (5' 6) 04/28/2023 11:20 [...] Screening Completed 08/26/1999 , 03/07/1999, 02/07/1999 Insurance [facility] Advance Directives For more information, please contact: [phone] * Full Code (Latest Code Status on File) Date Activated Date Inactivated Comments 04/28/2023 11:03 AM 05/05/2023 7:19 PM Care Teams Rehabilitation Therapist Relationship Specialty Start Date End Date Candido Hayes DO [address] [place] [address] PCP - General Family Medicine 08/28/24 Shasta Sena MD [address] [facility] [address] [place] [address] Medical Oncologist/Brick And Blocker Aid Labor Medical Oncology 05/05/23
--- OUTSIDE RECORDS SUMMARY | 2025-06-26 08:50 | XMS_ITS ---
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 Ashford, [place], [place]. S/p ABVD (2 cycles) with progression [...]
--- OUTSIDE RECORDS SUMMARY | 2025-06-26 08:50 | XMS_ITS ---
Author Organization Unknown Address [address] [place] [place] [phone] Phone Care Team Providers Care Axminster Weaver Name Role Phone ANGELITO HUTCHINS Attending Unavailable NO PCP Primary Unavailable Immunization Immunization Date Status Additional Notes Code Code System DTP 09/14/1990 Completed CVX DTP 09/13/1991 Completed CVX DTP 1992 Completed CVX DTP 10/03/1993 Completed CVX OPV, trivalent 09/14/1990 Completed 02 CVX OPV, trivalent 09/13/1991 Completed 02 CVX OPV, trivalent 1992 Completed 02 CVX OPV, trivalent 10/03/1993 Completed 02 CVX MMR 09/14/1990 Completed 03 CVX MMR 09/13/1991 Completed 03 CVX Hep B, adolescent or pediatric 02/07/1999 Completed 08 CVX Hep B, adolescent or pediatric 03/07/1999 Completed 08 CVX Hep B, adolescent or pediatric 08/26/1999 Completed 08 CVX Td (adult), 2 Lf tetanus toxoid, preservative free, adsorbed 04/04/2004 Completed 09 CVX Hib, unspecified formulation 03/13/1992 Completed 17 CVX Tdap 05/11/2021 Completed 115 CVX Results CBC W/ DIFF - Collect Date/T yennifer: 05/08/2023 14:02 [facility] ID: [id number] [address] [place] [address], [phone] LOINC: 07846-3 Test Value Unit Reference Range Code Code System Flag WBC 5.1 10^3uL L=4.8 H=10.8 RBC 3.12 10^6uL L=4.60 H=6.20 L HEMOGLOBIN 7.3 g/dL L=14.0 H=18.0 718-7 LOINC LL CALLED TO: VICENTE Dietrich RN. AT: 1418 BY: JMB HEMATOCRIT 25.0 VOL% L=42.0 H=52.0 4544-3 LOINC L MCV 80.1 fL L=80.0 H=94.0 MCH 23.4 pg L=27.0 H=32.0 L MCHC 29.2 g/dL L=32.0 H=36.0 L PLATELETS 269 10^3uL L=100 H=400 55426-2 LOINC RDW 21.3 % L=11.7 H=15.5 H %GRAN L=40.0 H=70.0 24889-6 LOINC %LYMPH L=20.0 H=45.0 736-9 LOINC %MONO L=2.0 H=10.0 03041-4 LOINC %EOS L=0.0 H=6.0 713-8 LOINC %BASO L=0.0 H=3.0 706-2 LOINC #NEUT L=1.9 H=7.6 96058-2 LOINC #LYMPH L=0.9 H=4.9 16923-6 LOINC #MONO L=0.1 H=0.9 22866-3 LOINC #EOS L=0.0 H=0.6 712-0 LOINC #BASO L=0.00 H=0.10 37391-2 LOINC #IM GRANS L=0.0 H=7.0 26624-5 LOINC %IM GRANS L=0.0 H=5.0 94920-4 LOINC %NRB L=0.0 H=0.2 99039-7 LOINC #NRB L=0.000 H=0.012 94816-3 LOINC MANUAL DIFF SEE BELOW A SEG 94 % L=40 H=70 H BANDS 1 % L=0 H=6 LYMPH 3 % L=20 H=45 L MONO 1.0 % L=2.0 H=10.0 L EOS 1 % L=0 H=6 713-8 LOINC BASO 0 % L=0 H=3 IM GRANS 0 % L=0 H=5 METAS 0 % L=0 H=0 MYELOS 0 % L=0 H=0 PROMYELOS 0 % L=0 H=0 BLASTS 0 % L=0 H=0 44663-5 LOINC ADITI LYMPHS 0.00 % L=0.00 H=5.00 SMUDGE CELLS 0 % L=0 H=0 NRBC 0.0 % L=0.0 H=0.0 PLTS APPEAR NORMAL NEUT # 4.8 10^3uL L=1.9 H=7.6 LYMPH # 0.2 10^3uL L=0.9 H=4.9 L MONO # 0.1 10^3uL L=0.1 H=0.9 EOS # 0.1 10^3uL L=0.0 H=0.6 712-0 LOINC BASO # 0.0 10^3uL L=0.0 H=0.1 61887-3 LOINC RBC MORPH SEE BELOW ANISO 2+ NORMAL:NONE SEEN 702-1 LOINC MACRO NORMAL:NONE SEEN MICRO 1+ NORMAL:NONE SEEN POIK NORMAL:NONE SEEN HYPO 2+ NORMAL:NONE SEEN POLYC NORMAL:NONE SEEN COMPREHENSIVE METABOLIC PANE L - Collect Date/Time: 05/08/2023 14:02 [facility] ID: [id number] [address] [place], [place], [phone] LOINC: 73560-8 Test Value Unit Reference Range Code Code System Flag FASTING UNKNOWN BUN 18 mg/dL L=7 H=20 3094-0 LOINC CREATININE 0.70 mg/dL L=0.66 H=1.25 2160-0 LOINC GLUCOSE 88 mg/dL L=74 H=106 2345-7 LOINC SODIUM 139 mmol/L L=132 H=144 2951-2 LOINC POTASSIUM 3.5 mmol/L L=3.5 H=5.1 2823-3 LOINC CHLORIDE 102 mmol/L L=98 H=107 2075-0 LOINC CO2 30.0 mmol/L L=22.0 H=30.0 2028-9 LOINC ANION GAP 11 L=10 H=20 79085-6 LOINC OSMOLALITY 289 mOs/kG L=280 H=296 02817-7 LOINC BUN/CREAT 25.7 3097-3 LOINC CALCIUM 8.6 mg/dL L=8.3 H=10.5 01884-0 LOINC AST 20 U/L L=15 H=46 1920-8 LOINC ALT 18 U/L L=9 H=72 1742-6 LOINC ALKALINE PHOS 141 U/L L=38 H=126 6768-6 LOINC H TOTAL BILI 0.6 mg/dL L=0.2 H=1.3 1975-2 LOINC ALBUMIN 3.3 G/dL L=3.5 H=5.0 1751-7 LOINC L TOTAL PROTEIN 6.7 g/L L=6.3 H=8.2 2885-2 LOINC A/G RATIO 1.0 92292-1 LOINC AGE 33 75662-3 LOINC eGFR NON-AFR 137 ml/min eGFR AFR AMER 166 ml/min MAGNESIUM - Collect Date/Bishop e: 05/08/2023 14:02 [facility] ID: [id number] [address] [place] [address], [phone] LOINC: 88032-4 Test Value Unit Reference Range Code Code System Flag MAGNESIUM 1.7 mg/dL L=1.6 H=2.3 59248-0 LOINC PRO BNP - Collect Date/Time: 05/08/2023 14:02 [facility] ID: [id number] [address] [place] [address], [phone] LOINC: 06783-5 Test Value Unit Reference Range Code Code System Flag Pro BNP2 471 pg/mL L=0 H=450 55715-8 LOINC H D DIMER - Collect Date/Time: 05/08/2023 14:02 [facility] ID: [id number] [address] [place] [address], [phone] LOINC: Test Value Unit Reference Range Code Code System Flag DDIMER 1.96 mg/L FEU L=0.00 H=0.50 H Social History Type Status Start Date End Date Code Code Syst em Smoking History Current every day smoker 07/05/[id number] Sex Male Hospital Discharge Instructions Should you have any questions prior to discharge, please contact a member of your healthcare team. If you have left the hospital and have any questions, please contact your primary care physician. Reason For Referral No Data Found Plan of Treatment No Data Found Encounters Encounter Diagnosis Start Date Code Code Sys tem Edema, unspecified 05/08/2023 SNOMED-CT Personal Care Team Section
[2025-06-26 08:57] LABS: Hematocrit 36.7 % (40.0-54.0); Hemoglobin 12.4 g/dL (14.0-18.0); Mean Corpuscular HGB Conc 33.8 g/dL (32-36); Mean Corpuscular Hemoglobin 28.2 pg (27.0-31.0); Mean Corpuscular Volume 83.6 fL (78.0-102.0); Platelet Count Result 303 K/mm3 (150-420); Red Blood Count 4.39 M/mm3 (4.70-6.10); White Blood Count 3.9 K/mm3 (4.8-10.8)
[2025-06-26 09:09] LABS: Band Neutrophils Percent 0 % (0-6); Basophils Absolute Manual 0.03 K/mm3 (0-0.1); Basophils Percent Manual 1 % (0-1); Eosinophils Absolute Manual 0.03 K/mm3 (0.02-0.50); Eosinophils Percent Manual 1 % (1-6); Lymphocytes Absolute Manual 0.85 K/mm3 (1.1-4.5); Lymphocytes Percent Manual 22 % (18-44); Monocytes Absolute Manual 0.81 K/mm3 (0.1-0.90); Monocytes Percent Manual 21 % (3-9); Neutrophils Absolute Manual 2.14 K/mm3 (1.3-6.7); Neutrophils Percent Manual 55 % (46-73); Total Cells Counted 100
[2025-06-26 09:10] LABS: Alanine Aminotransferase 97 U/L (6-50); Albumin Level 4.4 g/dL (3.5-5.1); Alkaline Phosphatase 93 U/L (38-126); Anion Gap 8 mmol/L (4-12); Aspartate Amino Transferase 87 U/L (17-59); Bilirubin,Total 0.6 mg/dL (0.2-1.3); Blood Urea Nitrogen 23 mg/dL (9-20); Calcium 9.8 mg/dL (8.4-10.2); Carbon Dioxide 27 mmol/L (22-30); Chloride 103 mmol/L (98-107); Estimated CRCL calculation 86 ml/min; Estimated Glomerular Filt Rate > 60; Glucose 89 mg/dL (65-110); Osmolality Calculated 288 mOsm/kg (285-295); Potassium 4.2 mmol/L (3.4-5.0); Sodium 138 mmol/L (137-145); Total Protein 7.0 g/dL (6.3-8.2)
[2025-06-26] MEDS: SODIUM CHLORIDE 0.9% IV 250 ML 10 ML IVPB (09:42)
[2025-06-26] MEDS: ONDANSETRON INJ 16 MG, dexAMETHasone SOD 4 MG/ML INJ 12 MG in SODIUM CHLORIDE 0.9% IV 8... 400 MG IVPB (09:50)
[2025-06-26] MEDS: SODIUM CHLORIDE 0.9% IVPB (10:14)
[2025-06-26] MEDS: GEMCITABINE HCL IVPB (10:14)
[2025-06-26] MEDS: HEPARIN SODIUM LOCK FLUSH 500 UNITS/5 ML SYRINGE IV PUSH (10:45)
[2025-06-26] MEDS: PEGFILGRASTIM (ONPRO KIT) 6 MG/0.6 ML SYRINGE SUB-Q (10:46)
--- NOTE | 2025-06-26 11:03 | PC.NURSE ---
Patient tolerated treatment today well. Will be going home on Neulasta Onpro injector. This is cycle 6 and patient states, I know what to do with it. Education given on Neulasta Onpro injector.
[2025-06-26 11:05] VITALS: BP 121/73; PULSE 88; RESP 14; TEMP 36.6; O2SAT 97
== END 2025-06-26 08:42 | disposition home or self-care (01) ==
PROVIDERS: PCP Family Medicine; Visit Provider Internal Medicine Hematology
DX: Z51.11 Encounter for antineoplastic chemotherapy (principal); C81.70 Other Hodgkin lymphoma, unspecified site; D70.8 Other neutropenia
CPT/HCPCS: 36415; 36591; 80053; 85025; 96367; 96375; 96377; 96413; J1100; J2405; J2506; J7050; J9201